=== PATIENT | female | born 1975 | race Caucasian/White ===

== ENCOUNTER → 2017-04-05 | Outpatient (REF) | payer MEDICAID, OTHER ==
[2017-04-06 12:53] LABS: AMORPHOUS SEDIMENT MODERATE (NEGATIVE); APPEARANCE, URINE TURBID (CLEAR); BACTERIA, URINE AUTO 1+ (NEGATIVE); BILIRUBIN, URINE AUTO NEGATIVE (NEGATIVE); BLOOD, URINE BLOOD NEGATIVE (NEGATIVE); CALCIUM OXALATE CRYSTALS LARGE; COLOR, URINE YELLOW (YELLOW); GLUCOSE, URINE (UA) AUTO 3+ mg/dL (NEGATIVE); KETONE, URINE AUTO TRACE mg/dL (NEGATIVE); LEUKOCYTE ESTERASE, URINE AUTO 2+ (NEGATIVE); NITRITE, URINE AUTO POSITIVE (NEGATIVE); PROTEIN, URINE AUTO 1+ mg/dL (NEGATIVE); RBC, URINE AUTO 4 /HPF (0-3); SPECIFIC GRAVITY URINE AUTO 1.028 (1.002-1.035); SQUAMOUS EPITHELIAL CELL UR AU 2 /HPF (0-6); UROBILINOGEN, URINE AUTO 0.2 mg/dL (0.0-2.0); WBC, URINE AUTO 65 /HPF (0-3)
== END ==
LOC: M LAB REF 12:06
DX: R30.0 Dysuria (principal)

== ENCOUNTER 2017-04-15 15:09 | Emergency (ER) | payer OTHER, MEDICAID ==
[2017-04-15 16:01] LABS: AMORPHOUS SEDIMENT RFX SMALL (NEGATIVE); KETONE, URINE AUTO RFX 1+ mg/dL (NEGATIVE); LEUKOCYTE ESTERASE UR AUTO RFX 3+ (NEGATIVE); NITRITE, URINE AUTO RFX NEGATIVE (NEGATIVE); RBC, URINE AUTO RFX 54 /HPF (0-3); SPECIFIC GRAVITY UR AUTO RFX 1.031 (1.002-1.035); SQUAM EPITHELIAL CELL UR AURFX 4 /HPF (0-6); WBC, URINE AUTO RFX TNTC /HPF (0-3)
== END 2017-04-15 16:31 | disposition home or self-care (01) ==
LOC: M ED 15:09
DX: B37.3 Candidiasis of vulva and vagina (principal); E11.40 Type 2 diabetes mellitus with diabetic neuropathy, unspecified; Z79.84 Long term (current) use of oral hypoglycemic drugs; Z79.899 Other long term (current) drug therapy; Z88.0 Allergy status to penicillin
CPT/HCPCS: 81001

== ENCOUNTER 2017-07-28 00:42 | Emergency (ER) | payer OTHER ==
[2017-07-28] MEDS: CYCLOBENZAPRINE 10 MG TAB PO (06:24)
[2017-07-28] MEDS: NORCO, ANEXSIA 5/325MG TABLET (HYDROcodone/ACETAMINOPHEN) PO (06:24)
== END 2017-07-28 07:51 | disposition home or self-care (01) ==
LOC: M ED 00:42
DX: M19.90 Unspecified osteoarthritis, unspecified site (principal); E11.40 Type 2 diabetes mellitus with diabetic neuropathy, unspecified; Z79.84 Long term (current) use of oral hypoglycemic drugs; Z79.899 Other long term (current) drug therapy; Z88.0 Allergy status to penicillin
CPT/HCPCS: 72110

== ENCOUNTER → 2017-09-13 | Outpatient (REF) | payer OTHER ==
[2017-09-13 21:31] LABS: APPEARANCE, URINE HAZY (CLEAR); BACTERIA, URINE AUTO 1+ (NEGATIVE); BILIRUBIN, URINE AUTO NEGATIVE (NEGATIVE); BLOOD, URINE BLOOD NEGATIVE (NEGATIVE); COLOR, URINE YELLOW (YELLOW); GLUCOSE, URINE (UA) AUTO 2+ mg/dL (NEGATIVE); KETONE, URINE AUTO TRACE mg/dL (NEGATIVE); LEUKOCYTE ESTERASE, URINE AUTO 1+ (NEGATIVE); MUCUS, URINE SMALL (NEGATIVE); NITRITE, URINE AUTO POSITIVE (NEGATIVE); PROTEIN, URINE AUTO NEGATIVE (NEGATIVE); RBC, URINE AUTO 1 /HPF (0-3); SPECIFIC GRAVITY URINE AUTO 1.027 (1.002-1.035); SQUAMOUS EPITHELIAL CELL UR AU 6 /HPF (0-6); UROBILINOGEN, URINE AUTO 0.2 mg/dL (0.0-2.0); WBC, URINE AUTO 9 /HPF (0-3)
== END ==
LOC: M LAB REF 12:20
DX: N39.0 Urinary tract infection, site not specified (principal)
CPT/HCPCS: 81001

== ENCOUNTER 2017-11-06 18:28 | Emergency (ER) | payer OTHER ==
[2017-11-06 20:29] LABS: BASO % 0.4 % (0.0-1.0); EOS # 0.1 10^3/uL (0.0-0.50); EOS % 1.4 % (0.0-3.0); HEMOGLOBIN 9.3 g/dl (12.0-15.5); IMMATURE GRANULOCYTE % 0.4 % (0-3.0); LYMPH # 1.6 10^3/uL (1.5-4.5); LYMPH % 19.7 % (24.0-44.0); MEAN CORPUSCULAR HEMOGLOBIN 24.2 pg (27.0-33.0); MEAN CORPUSCULAR VOLUME 78.1 fl (80.0-96.0); MONO # 0.6 10^3/uL (0.0-0.8); MONO % 6.8 % (0.0-5.0); NEUTROPHILS # 5.8 10^3/uL (1.8-7.7); NEUTROPHILS % 71.3 % (36.0-66.0); PLATELET COUNT, AUTOMATED 350 10^3/uL (150-450); RED BLOOD COUNT 3.84 10^6/uL (4.00-5.40); RED CELL DISTRIBUTION WIDTH 14.3 % (11.5-14.5); WHITE BLOOD COUNT 8.1 10^3/uL (4.0-10.0)
[2017-11-06 20:43] LABS: INR 1.03; MAGNESIUM LEVEL 2.1 MG/DL (1.8-2.4); PROTHROMBIN TIME 13.6 SECONDS (12.1-14.4)
[2017-11-06 20:43] LABS: PHOSPHORUS LEVEL 4.4 MG/DL (2.5-4.9)
[2017-11-06 20:48] LABS: ANION GAP 9 MEQ/L (8-16); BLOOD UREA NITROGEN 18 MG/DL (7-18); CALCIUM LEVEL 8.8 MG/DL (8.5-10.1); CARBON DIOXIDE LEVEL 26 MEQ/L (21-32); CHLORIDE LEVEL 102 MEQ/L (98-107); CPK CREATINE PHOSPHOKINASE 44 U/L (26-192); CREATININE FOR GFR 0.95 MG/DL (0.55-1.30); FREE T4 0.85 NG/DL (0.76-1.46); GLOMERULAR FILTRATION RATE > 60.0 (>58); GLUCOSE, FASTING 399 MG/DL (70-100); POTASSIUM SERUM 4.4 MEQ/L (3.5-5.1); SODIUM LEVEL 137 MEQ/L (136-145); TROPONIN I < 0.02 NG/ML (< 0.10)
[2017-11-06 20:53] LABS: CK-MB VALUE MASS < 1.0 NG/ML (<3.6); MB/CK RELATIVE INDEX 2.27 (< OR =4)
[2017-11-06] MEDS ORDERED: ISOVUE-370 76% 100ML VIAL (Q9967) As Ordered (20:58)
[2017-11-06 23:01] LABS: CK-MB VALUE MASS < 1.0 NG/ML (<3.6); CPK CREATINE PHOSPHOKINASE 47 U/L (26-192); MB/CK RELATIVE INDEX 2.12 (< OR =4); TROPONIN I < 0.02 NG/ML (< 0.10)
== END 2017-11-07 00:13 | disposition home or self-care (01) ==
LOC: M ED 11-07 00:13
DX: R55 Syncope and collapse (principal); E27.9 Disorder of adrenal gland, unspecified; E11.9 Type 2 diabetes mellitus without complications; G62.9 Polyneuropathy, unspecified; F41.9 Anxiety disorder, unspecified; F33.9 Major depressive disorder, recurrent, unspecified; F43.10 Post-traumatic stress disorder, unspecified; F42.9 Obsessive-compulsive disorder, unspecified; Z79.899 Other long term (current) drug therapy; Z79.84 Long term (current) use of oral hypoglycemic drugs; Z88.0 Allergy status to penicillin
CPT/HCPCS: Q9967

== ENCOUNTER 2017-12-27 04:58 | Emergency (ER) | payer OTHER, MEDICAID ==
[2017-12-27 05:50] LABS: BASO % 0.3 % (0.0-1.0); EOS # 0.2 10^3/uL (0.0-0.50); EOS % 2.4 % (0.0-3.0); HEMATOCRIT 37.8 % (36.0-47.0); HEMOGLOBIN 11.9 g/dl (12.0-15.5); IMMATURE GRANULOCYTE % 0.3 % (0-3.0); LYMPH # 1.5 10^3/uL (1.5-4.5); LYMPH % 21.8 % (24.0-44.0); MEAN CORPUSCULAR HEMOGLOBIN 26.5 pg (27.0-33.0); MEAN CORPUSCULAR HGB CONC 31.5 g/dl (32.0-36.5); MEAN CORPUSCULAR VOLUME 84.2 fl (80.0-96.0); MONO # 0.5 10^3/uL (0.0-0.8); NEUTROPHILS # 4.5 10^3/uL (1.8-7.7); NEUTROPHILS % 67.2 % (36.0-66.0); PLATELET COUNT, AUTOMATED 322 10^3/uL (150-450); RED BLOOD COUNT 4.49 10^6/uL (4.00-5.40); RED CELL DISTRIBUTION WIDTH 19.6 % (11.5-14.5); WHITE BLOOD COUNT 6.8 10^3/uL (4.0-10.0)
[2017-12-27 05:59] LABS: INR 0.92; PARTIAL THROMBOPLASTIN TIME 26.2 SECONDS (25.4-37.6); PROTHROMBIN TIME 12.5 SECONDS (12.1-14.4)
[2017-12-27 06:03] LABS: CONTROL LINE HCG INT CTR LINE PRESENT; HCG, SERUM QUALITATIVE NEGATIVE (NEGATIVE)
[2017-12-27] MEDS: NS 1,000 ML IV (06:11)
[2017-12-27] MEDS: KETOROLAC 30 MG/ML VIAL (J1885) IV (06:18)
== END 2017-12-27 07:24 | disposition home or self-care (01) ==
LOC: M ED 04:58
DX: N92.0 Excessive and frequent menstruation with regular cycle (principal); E11.9 Type 2 diabetes mellitus without complications; F41.9 Anxiety disorder, unspecified
CPT/HCPCS: J1885

== ENCOUNTER 2018-02-25 17:27 | Emergency (ER) | payer OTHER ==
[~2018-02-25] VITALS: Ht 172.7 cm; Wt 131.8 kg
[~2018-02-25 17:27] MED LIST: ACET30TAB PO; CYCL10TA PO; DIFL150T PO; FERR1TAB8; GABA-843 PO; GLIP5TAB8 PO; GLYB5TA; LISI10TA4 PO; METF10004 PO; MICO2CRE33 TOP; NAPR-885 PO; NITR100C2 PO; SITA50TAB
[2018-02-25 18:48] LABS: HCG, SERUM QUALITATIVE NEGATIVE (NEGATIVE)
[2018-02-25 19:42] VITALS: BP 131/80
== END 2018-02-25 19:45 | disposition home or self-care (01) ==
LOC: M ED 17:27
DX: E11.65 Type 2 diabetes mellitus with hyperglycemia (principal); N92.6 Irregular menstruation, unspecified; G62.9 Polyneuropathy, unspecified; Z79.899 Other long term (current) drug therapy; Z79.84 Long term (current) use of oral hypoglycemic drugs; Z88.0 Allergy status to penicillin

== ENCOUNTER → 2018-04-19 | Outpatient (REF) | payer OTHER, SELFPAY | LOC: M LAB REF 18:37 | PROVIDERS: ATTEND Nurse Practitioner Family | DX: N39.0 Urinary tract infection, site not specified (principal) ==

== ENCOUNTER 2018-06-11 12:10 | Emergency (ER) | payer BC, SELFPAY ==
[~2018-06-11] VITALS: Ht 172.7 cm; Wt 151.6 kg
[~2018-06-11 12:10] MED LIST changes: -FLUO10CA8 PO; -IBUP-1114 PO; -holter
[2018-06-11] MEDS ORDERED: NS 1,000 ML IV ONE (12:30)
[2018-06-11] MEDS ORDERED: FLUO10CA8 PO (12:32)
[2018-06-11 13:12] LABS: BASO % 0.4 % (0.0-1.0); EOS # 0.1 10^3/uL (0.0-0.50); EOS % 0.9 % (0.0-3.0); HEMATOCRIT 41.8 % (36.0-47.0); HEMOGLOBIN 14.4 g/dl (12.0-15.5); LYMPH # 1.7 10^3/uL (1.5-4.5); MEAN CORPUSCULAR HEMOGLOBIN 30.7 pg (27.0-33.0); MEAN CORPUSCULAR HGB CONC 34.4 g/dl (32.0-36.5); MEAN CORPUSCULAR VOLUME 89.1 fl (80.0-96.0); MONO # 0.4 10^3/uL (0.0-0.8); MONO % 5.8 % (0.0-5.0); NEUTROPHILS # 5.3 10^3/uL (1.8-7.7); NEUTROPHILS % 69.6 % (36.0-66.0); PLATELET COUNT, AUTOMATED 313 10^3/uL (150-450); RED BLOOD COUNT 4.69 10^6/uL (4.00-5.40); WHITE BLOOD COUNT 7.6 10^3/uL (4.0-10.0)
[2018-06-11 13:14] LABS: VENOUS BASE EXCESS -0.1 (-2.0-2.0); VENOUS HCO3 24.8 MEQ/L (23.0-27.0); VENOUS O2 SATURATION 94.2 % (60.0-80.0); VENOUS PARTIAL PRESSURE CO2 41.4 mmHg (38.0-50.0); VENOUS PARTIAL PRESSURE O2 72.6 mmHg (30.0-50.0); VENOUS PH 7.395 UNITS (7.330-7.430); VENOUS STANDARD HCO3 24.3 MEQ/L; VENOUS TOTAL CO2 26.1 MEQ/L (24.0-28.0)
[2018-06-11 13:22] LABS: INR 0.95; PROTHROMBIN TIME 12.8 SECONDS (12.1-14.4)
[2018-06-11 13:25] LABS: D-DIMER QUANT 339.38 ng/ml (<500)
--- NOTE | 2018-06-11 13:28 | REP ---
Chest x-ray: Two views. History: Chest pain. Comparison study: May 03, 2007. Findings: EKG monitoring electrodes are seen on the frontal view overlying the chest. The lungs are well inflated and clear. Pleural angles are sharp. Heart is not enlarged. Pulmonary vasculature is not increased. Impression: No active disease. Electronically Signed by Vu Warren MD 06/11/2018 03:09 P
[2018-06-11 13:32] LABS: ERYTHROCYTE SEDIMENTATION RATE 9 mm/hr (0-20)
[2018-06-11 13:40] LABS: HCG, SERUM QUALITATIVE NEGATIVE (NEGATIVE)
[2018-06-11 13:43] LABS: INFLUENZA A AMPLIFICATION NEGATIVE (NEGATIVE); INFLUENZA B AMPLIFICATION NEGATIVE (NEGATIVE)
[2018-06-11 13:48] LABS: ACETONE/KETONE 1.73 MG/DL (<2.81); ALBUMIN 3.3 GM/DL (3.2-5.2); ALT/SGPT 23 U/L (12-78); BILIRUBIN,DIRECT < 0.1 MG/DL (0.0-0.2); BILIRUBIN,TOTAL 0.3 MG/DL (0.2-1.0); BLOOD UREA NITROGEN 14 MG/DL (7-18); C REACTIVE PROTEIN QUANTITATIV 1.02 MG/DL (0.00-0.30); CALCIUM LEVEL 8.6 MG/DL (8.5-10.1); CARBON DIOXIDE LEVEL 25 MEQ/L (21-32); CHLORIDE LEVEL 100 MEQ/L (98-107); CPK CREATINE PHOSPHOKINASE 41 U/L (26-192); CREATININE FOR GFR 0.62 MG/DL (0.55-1.30); FREE T4 1.09 NG/DL (0.76-1.46); GLOMERULAR FILTRATION RATE > 60.0 (>58); GLUCOSE, FASTING 298 MG/DL (70-100); MAGNESIUM LEVEL 1.6 MG/DL (1.8-2.4); MB/CK RELATIVE INDEX 2.68 (< OR =4); POTASSIUM SERUM 4.2 MEQ/L (3.5-5.1); SODIUM LEVEL 134 MEQ/L (136-145); TOTAL PROTEIN 6.2 GM/DL (6.4-8.2); TROPONIN I < 0.02 NG/ML (< 0.10)
[2018-06-11] MEDS ORDERED: MAG SULF 1GM/100ML (MAG RUN) 1 GM in APPROPRIATE DILUENT 1 EA IV ONE (14:00)
[2018-06-11] MEDS ORDERED: KETOROLAC 30 MG/ML VIAL (J1885) IV ONE (14:45)
[2018-06-11] MEDS ORDERED: IBUP-1114 PO (14:48)
[2018-06-11] MEDS ORDERED: holter (14:48)
[2018-06-11 15:40] VITALS: BP 159/73
--- NOTE | 2018-06-11 22:10 | ECGEPIP ---
Stationary ECG Study [facility] - ED Test Date: 2018-06-11 Pat Name: LUCY ERWIN Department: Room: - Gender: F Dairy Husbandry Worker: sean : 1975 Requested By: Marybeth Chavez Order Number: [id number] Reading MD: Ronnie Leung Measurements Intervals [place] Rate: 96 P: 44 AR: 163 QRS: 22 QRSD: 97 T: 22 QT: 339 QTc: 429 Interpretive Statements SINUS RHYTHM POSSIBLE LEFT ATRIAL ENLARGEMENT POSSIBLE ANTERIOR MYOCARDIAL INFARCTION, PROBABLY OLD SIMILAR TO 11/06/17 Electronically Signed On 06-11-2018 22:10:15 EDT by Ronnie Leung
== END 2018-06-11 15:42 | disposition home or self-care (01) ==
LOC: M ED 12:10
DX: E83.42 Hypomagnesemia (principal); R00.2 Palpitations; E11.9 Type 2 diabetes mellitus without complications; G62.9 Polyneuropathy, unspecified; Z79.84 Long term (current) use of oral hypoglycemic drugs; Z79.899 Other long term (current) drug therapy; Z88.0 Allergy status to penicillin
CPT/HCPCS: 71046; 80048; 80076; 82010; 82550; 82553; 82803; 83605; 83735; 84439; 84443; 84703; 85025; 85379; 85610; 85652; 85730; 86140; 86850; 86900; 86901; 87040; 87631; 93005; 93041; 96365; 96375; 99285; J1885; J3475

== ENCOUNTER → 2018-06-11 | Outpatient (CLI) | payer BC ==
[~2018-06-11] MED LIST changes: +ACET-716 PO; -ACET30TAB PO; +FLUO10CA8 PO; +IBUP-1114 PO; -MICO2CRE33 TOP; +MICO2CRE42 TOP; +holter
--- NOTE | 2018-06-15 10:43 | HOLTMON ---
[facility] Test Date: 2018-06-11 Pat Name: LUCY ERWIN Department: Room: - Gender: Clinical Applications Specialist: DIANA HENDRICKS : 1975 Requested By: RAFAEL Stephen Order Number: [id number] Reading MD: Tri Montes Interpretive Statements THE PATIENT HAD A LOT OF ARTIFACT AND DID NOT BRING IN HER DIARY AFTER BEING CALLED AND LETTING HER KNOW HOW IMPORTED IT WAS. WE DO NOT KNOW WHAT SHE WAS DOING AT THE TIME OF ANY EVENTS AND THE PATIENT DID LEAVE IT ON LONGER THEN 24 HOURS.(41:45) RECORDING DURATION. SINUS MECHANISM THROUGOUT. RARE PVC RARE PAC PERIOD OF ST DEPRESSION NOTED FOR SEVERAL HOURS DURATION CLINICAL HIRAL Electronically Signed On 06-15-2018 10:42:52 EDT by Tri Montes
== END ==
LOC: M EKG 15:53
PROVIDERS: ATTEND Internal Medicine
DX: R00.2 Palpitations (principal)

== ENCOUNTER 2018-06-25 14:00 | Emergency (ER) | payer BC ==
[~2018-06-25] VITALS: Ht 172.7 cm; Wt 136.4 kg
[~2018-06-25 14:00] MED LIST changes: +FLUO10CA8 PO; +IBUP-1114 PO; +holter
[2018-06-25] MEDS ORDERED: diazePAM 10 MG TAB PO ONE (14:45)
[2018-06-25] MEDS ORDERED: predniSONE 20 MG TAB PO ONE (14:45)
[2018-06-25] MEDS ORDERED: KETOROLAC 60 MG/2 ML VIAL (J1885) IM ONE (14:45)
--- NOTE | 2018-06-25 15:33 | REP ---
Duplex extremity venous ultrasound: Right lower extremity. History: Right calf pain. Rule out DVT. Findings: The deep veins are anechoic and fully compressible from the groin to the popliteal fossa in the right lower extremity. Color flow imaging is homogeneous. Spectral Doppler interrogation demonstrates intact respiratory variation in flow and normal manual augmentation of flow. There is no evidence of deep vein thrombosis. Impression: Negative right lower extremity duplex venous ultrasound. No evidence of deep vein thrombosis. Electronically Signed by Vu Warren MD 06/25/2018 03:25 P
[2018-06-25] MEDS ORDERED: ZANA4TAB PO (15:44)
[2018-06-25] MEDS ORDERED: PRED20TA PO (15:44)
[2018-06-25] MEDS ORDERED: MOBI4TAB PO (15:44)
[2018-06-25 16:00] VITALS: BP 132/78
== END 2018-06-25 16:03 | disposition home or self-care (01) ==
LOC: M ED 14:00
DX: M54.5 Low back pain (principal); G89.29 Other chronic pain; S86.901A Unspecified injury of unspecified muscle(s) and tendon(s) at lower leg level, right leg, initial encounter; X50.3XXA Overexertion from repetitive movements, initial encounter; Y92.512 Supermarket, store or market as the place of occurrence of the external cause; Y93.01 Activity, walking, marching and hiking; Y99.0 Civilian activity done for income or pay; Z88.0 Allergy status to penicillin; E11.40 Type 2 diabetes mellitus with diabetic neuropathy, unspecified; Z87.440 Personal history of urinary (tract) infections; F41.9 Anxiety disorder, unspecified; F32.9 Major depressive disorder, single episode, unspecified; F43.10 Post-traumatic stress disorder, unspecified; F42.9 Obsessive-compulsive disorder, unspecified; R00.2 Palpitations; Z79.899 Other long term (current) drug therapy; Z79.84 Long term (current) use of oral hypoglycemic drugs
CPT/HCPCS: 93971; 96372; 99284; J1885

== ENCOUNTER 2018-09-27 21:44 | Emergency (ER) | payer BC, SELFPAY ==
[~2018-09-27] VITALS: Ht 175.3 cm; Wt 131.8 kg
[~2018-09-27 21:44] MED LIST changes: +MOBI4TAB PO; +PRED20TA PO; +ZANA4TAB PO
[2018-09-27] MEDS ORDERED: LISINOPRIL 10 MG TAB PO ONE (22:45)
[2018-09-27 22:47] VITALS: BP 171/97
[2018-09-27] MEDS ORDERED: BACT800T5 PO (23:40)
[2018-09-27] MEDS ORDERED: PYRI1TAB5 PO (23:40)
[2018-09-27] MEDS ORDERED: LISI10TA4 PO (23:41)
[2018-09-27 23:45] VITALS: BP 142/91
[2018-09-27] MEDS ORDERED: BACTRIM 160MG/800MG DS TAB PO ONE (23:45)
== END 2018-09-27 23:47 | disposition home or self-care (01) ==
LOC: M ED 21:44
DX: N30.90 Cystitis, unspecified without hematuria (principal); I10 Essential (primary) hypertension; E11.9 Type 2 diabetes mellitus without complications; F41.9 Anxiety disorder, unspecified; Z79.899 Other long term (current) drug therapy; Z79.84 Long term (current) use of oral hypoglycemic drugs; Z88.0 Allergy status to penicillin

== ENCOUNTER 2018-11-23 22:28 | Emergency (ER) | payer SELFPAY ==
[~2018-11-23] VITALS: Ht 172.7 cm; Wt 131.8 kg
[~2018-11-23 22:28] MED LIST changes: +BACT800T5 PO; +PYRI1TAB5 PO
[2018-11-23] MEDS ORDERED: CLEO300C2 PO (23:55)
[2018-11-23] MEDS ORDERED: IBUP80TA PO (23:55)
[2018-11-23] MEDS: CLINDAMYCIN 150 MG CAP PO ONE (23:57)
[2018-11-23] MEDS: KETOROLAC 60 MG/2 ML VIAL (J1885) IM ONE (23:57)
[2018-11-24 00:28] VITALS: BP 143/69
== END 2018-11-24 00:29 | disposition home or self-care (01) ==
LOC: M ED 22:28
DX: K04.7 Periapical abscess without sinus (principal); E11.9 Type 2 diabetes mellitus without complications; I10 Essential (primary) hypertension; F41.9 Anxiety disorder, unspecified; F32.9 Major depressive disorder, single episode, unspecified; F43.10 Post-traumatic stress disorder, unspecified; Z79.84 Long term (current) use of oral hypoglycemic drugs; Z79.899 Other long term (current) drug therapy
CPT/HCPCS: 96374; 99283; J1885

== ENCOUNTER 2018-12-06 18:37 | Emergency (ER) | payer SELFPAY ==
[~2018-12-06] VITALS: Ht 172.7 cm; Wt 131.8 kg
[~2018-12-06 18:37] MED LIST changes: +CLEO300C2 PO; +IBUP80TA PO
--- NOTE | 2018-12-06 20:34 | REP ---
LEFT HIP WITH AP PELVIS: 12/06/2018. Comparison: 07/28/2017. Clinical history: Slipped and fell, trauma to the hip. Findings: AP pelvis: Pelvic ring intact. A few pelvic phleboliths are noted. Sacral ala, foramina, SI joints symmetric. Iliac wings intact. Acetabuli, ischia and pubic symphysis unremarkable. Hip joint spaces are symmetric. Left hip AP and frog-leg views were provided. There is no hip joint space narrowing, fracture, avulsion or focal lesion. Femoral head, neck, trochanters and proximal shaft intact. There is no evidence of AVN. Impression: 1. Negative AP pelvis and left hip for acute fracture or other focal finding. Electronically Signed by Peterson Galvez MD 12/07/2018 07:49 A
[2018-12-06] MEDS ORDERED: ACETAMINOPHEN 325 MG TAB PO ONE (20:45)
[2018-12-06] MEDS ORDERED: KETOROLAC 60 MG/2 ML VIAL (J1885) IM ONE (21:00)
[2018-12-06] MEDS ORDERED: KETO10TAB PO (22:02)
[2018-12-06 22:04] VITALS: BP 139/92
== END 2018-12-06 22:17 | disposition home or self-care (01) ==
LOC: M ED 18:37
DX: S30.0XXA Contusion of lower back and pelvis, initial encounter (principal); W01.10XA Fall on same level from slipping, tripping and stumbling with subsequent striking against unspecified object, initial encounter; Y92.89 Other specified places as the place of occurrence of the external cause; Y93.89 Activity, other specified; Y99.0 Civilian activity done for income or pay; E11.9 Type 2 diabetes mellitus without complications; I10 Essential (primary) hypertension; G62.9 Polyneuropathy, unspecified; Z79.84 Long term (current) use of oral hypoglycemic drugs; Z79.899 Other long term (current) drug therapy; Z88.0 Allergy status to penicillin
CPT/HCPCS: 73502; 96372; 99283; J1885

== ENCOUNTER → 2019-02-10 | Outpatient (REF) | payer OTHER ==
[~2019-02-10] MED LIST changes: +FLUO10CA15 PO; -FLUO10CA8 PO; +KETO10TAB PO
[2019-02-10 18:11] LABS: ALBUMIN 3.2 GM/DL (3.2-5.2); ALT/SGPT 15 U/L (12-78); BILIRUBIN,TOTAL 0.2 MG/DL (0.2-1.0); BLOOD UREA NITROGEN 14 MG/DL (7-18); CALCIUM LEVEL 8.5 MG/DL (8.5-10.1); CARBON DIOXIDE LEVEL 24 MEQ/L (21-32); CHLORIDE LEVEL 103 MEQ/L (98-107); CHOLESTEROL LEVEL 172 MG/DL (<200); CHOLESTEROL RISK RATIO 3.583 (<5); CREATININE FOR GFR 0.56 MG/DL (0.55-1.30); FREE T4 0.93 NG/DL (0.76-1.46); GLOMERULAR FILTRATION RATE > 60.0 (>58); GLUCOSE, FASTING 290 MG/DL (70-100); HDL CHOLESTEROL 48 MG/DL (>40); LDL CHOLESTEROL 89 MG/DL (<100); NON-HDL-C 124 MG/DL; POTASSIUM SERUM 4.4 MEQ/L (3.5-5.1); SODIUM LEVEL 136 MEQ/L (136-145); TOTAL PROTEIN 6.7 GM/DL (6.4-8.2); TRIGLYCERIDES LEVEL 175 MG/DL (<150)
[2019-02-10 18:15] LABS: BASO % 0.3 % (0.0-1.0); EOS # 0.1 10^3/uL (0.0-0.5); EOS % 1.9 % (0.0-3.0); HEMATOCRIT 36.4 % (36.0-47.0); HEMOGLOBIN 11.1 g/dl (12.0-15.5); LYMPH # 1.7 10^3/uL (1.5-5.0); LYMPH % 26.7 % (24.0-44.0); MEAN CORPUSCULAR HEMOGLOBIN 25.5 pg (27.0-33.0); MEAN CORPUSCULAR HGB CONC 30.5 g/dl (32.0-36.5); MEAN CORPUSCULAR VOLUME 83.7 fl (80.0-96.0); MONO # 0.4 10^3/uL (0.0-0.8); MONO % 7.1 % (0.0-5.0); NEUTROPHILS # 3.9 10^3/uL (1.5-8.5); NEUTROPHILS % 63.7 % (36.0-66.0); PLATELET COUNT, AUTOMATED 320 10^3/uL (150-450); RED BLOOD COUNT 4.35 10^6/uL (4.00-5.40); WHITE BLOOD COUNT 6.2 10^3/uL (4.0-10.0)
[2019-02-10 18:15] LABS: APPEARANCE, URINE HAZY (CLEAR); BACTERIA, URINE AUTO NEGATIVE (NEGATIVE); BILIRUBIN, URINE AUTO NEGATIVE (NEGATIVE); BLOOD, URINE BLOOD NEGATIVE (NEGATIVE); COLOR, URINE YELLOW (YELLOW); GLUCOSE, URINE (UA) AUTO 3+ mg/dL (NEGATIVE); KETONE, URINE AUTO NEGATIVE (NEGATIVE); LEUKOCYTE ESTERASE, URINE AUTO 1+ (NEGATIVE); NITRITE, URINE AUTO NEGATIVE (NEGATIVE); PROTEIN, URINE AUTO NEGATIVE (NEGATIVE); RBC, URINE AUTO 3 /HPF (0-3); SPECIFIC GRAVITY URINE AUTO 1.029 (1.002-1.035); SQUAMOUS EPITHELIAL CELL UR AU 4 /HPF (0-6); UROBILINOGEN, URINE AUTO 0.2 mg/dL (0.0-2.0); WBC, URINE AUTO 5 /HPF (0-3)
[2019-02-10 18:20] LABS: TOTAL 25(OH) VITAMIN D 17.4 NG/ML (30.0-100.0)
[2019-02-10 18:31] LABS: HEMOGLOBIN A1c 11.3 %
[2019-02-10 18:37] LABS: CREATININE, URINE 37.5 MG/DL; MALB URINE SIEMENS 16.4 MG/L; MAU/CREAT RATIO 43.7 MCG/MG (0.0-30.0)
== END ==
LOC: M LAB REF 16:20
PROVIDERS: ATTEND Nurse Practitioner Adult Health
DX: Z13.9 Encounter for screening, unspecified (principal)

== ENCOUNTER 2019-03-28 15:37 | Emergency (ER) | payer OTHER ==
[~2019-03-28] VITALS: Ht 172.7 cm; Wt 148.9 kg
[2019-03-28 16:55] LABS: BASO % 0.2 % (0.0-1.0); EOS # 0.2 10^3/uL (0.0-0.5); EOS % 1.7 % (0.0-3.0); HEMATOCRIT 36.1 % (36.0-47.0); HEMOGLOBIN 10.9 g/dl (12.0-15.5); LYMPH # 1.9 10^3/uL (1.5-5.0); LYMPH % 20.7 % (24.0-44.0); MEAN CORPUSCULAR HEMOGLOBIN 24.6 pg (27.0-33.0); MEAN CORPUSCULAR HGB CONC 30.2 g/dl (32.0-36.5); MEAN CORPUSCULAR VOLUME 81.5 fl (80.0-96.0); MONO # 0.5 10^3/uL (0.0-0.8); MONO % 5.8 % (0.0-5.0); NEUTROPHILS # 6.7 10^3/uL (1.5-8.5); NEUTROPHILS % 71.1 % (36.0-66.0); PLATELET COUNT, AUTOMATED 437 10^3/uL (150-450); RED BLOOD COUNT 4.43 10^6/uL (4.00-5.40); WHITE BLOOD COUNT 9.4 10^3/uL (4.0-10.0)
[2019-03-28] MEDS ORDERED: GABA600T4 PO (17:04)
[2019-03-28] MEDS ORDERED: TRUL10IN (17:04)
[2019-03-28 17:17] LABS: ALBUMIN 3.5 GM/DL (3.2-5.2); ALT/SGPT 12 U/L (12-78); BILIRUBIN,DIRECT < 0.1 MG/DL (0.0-0.2); BILIRUBIN,TOTAL 0.2 MG/DL (0.2-1.0); LIPASE 202 U/L (73-393); TOTAL PROTEIN 7.2 GM/DL (6.4-8.2)
[2019-03-28] MEDS ORDERED: SIMETHICONE 80 MG CHEW TAB PO STA (17:20)
[2019-03-28] MEDS ORDERED: ONDANSETRON 4MG/2ML VIAL (J2405) IV ONE (17:30)
[2019-03-28] MEDS ORDERED: GI COCKTAIL 50ML BTL(HYOSCYAMINE/MAALOX/LIDOCAINE VISCOUS)(1:3:1) PO ONE (17:30)
[2019-03-28] MEDS ORDERED: PANTOPRAZOLE 40MG INJ (PROTONIX) (C9113) IV ONE (17:30)
[2019-03-28] MEDS ORDERED: NS 1,000 ML IV ONE (17:30)
[2019-03-28] MEDS ORDERED: ZOLO50TA PO (17:48)
[2019-03-28] MEDS ORDERED: SITA50TAB (17:48)
[2019-03-28] MEDS ORDERED: SILVER SULFADIAZINE 1% CR 50 GM JAR TOP ONE (18:00)
[2019-03-28] MEDS ORDERED: METOCLOPRAMIDE INJ 10MG/2ML VIAL (J2765) IV ONE (18:15)
--- NOTE | 2019-03-28 19:01 | REP ---
Acute abdominal series: Three views. History: Constipation. Gas. Comparison study June 11, 2018. Findings: Upright chest radiograph is normal. There is no evidence of infiltrate or free subdiaphragmatic air. Heart is not enlarged. Supine and erect views of the abdomen demonstrate a few loops of air-filled but nondilated small bowel in the central abdomen. There is a air and stool in a nondistended colon proximally and distally. No obstructive lesion is seen. Flank stripes and psoas margins are intact. No mass organomegaly seen. There are phleboliths in the pelvis. Impression: Nonspecific central abdominal small bowel loops. Otherwise negative abdominal series. Electronically Signed by Vu Warren MD 03/28/2019 08:55 P
[2019-03-28 19:14] VITALS: BP 116/67
[2019-03-28] MEDS ORDERED: NITROFURANTOIN (MACROBID) 100 MG CAP PO ONE (19:30)
[2019-03-28] MEDS ORDERED: DICYCLOMINE 10 MG CAP PO ONE (19:30)
[2019-03-28] MEDS ORDERED: OMEP40CA97 PO (19:31)
[2019-03-28] MEDS ORDERED: REGL10TA6 PO (19:31)
[2019-03-28] MEDS ORDERED: SIME180C PO (19:31)
[2019-03-28] MEDS ORDERED: DICY10CA13 PO (19:31)
[2019-03-28] MEDS ORDERED: LACT10SO29 PO (19:40)
[2019-03-28] MEDS ORDERED: SILV1CRE60 TOP (19:40)
[2019-03-29] MEDS ORDERED: MACR100C43 PO (17:12)
== END 2019-03-28 19:53 | disposition home or self-care (01) ==
LOC: M ED 15:37
DX: T21.22XA Burn of second degree of abdominal wall, initial encounter (principal); Y92.9 Unspecified place or not applicable; Y93.9 Activity, unspecified; R14.1 Gas pain; K59.00 Constipation, unspecified; R11.2 Nausea with vomiting, unspecified; R10.9 Unspecified abdominal pain; E11.40 Type 2 diabetes mellitus with diabetic neuropathy, unspecified; I10 Essential (primary) hypertension; E66.01 Morbid (severe) obesity due to excess calories; Z79.899 Other long term (current) drug therapy; Z79.84 Long term (current) use of oral hypoglycemic drugs; Z88.0 Allergy status to penicillin
CPT/HCPCS: 36415; 74021; 80047; 80076; 81001; 83690; 84702; 85025; 87088; 87186; 96361; 96374; 96375; 99284; C9113; J2405; J2765

== ENCOUNTER 2019-05-05 18:50 | Emergency (ER) | payer OTHER ==
[~2019-05-05] VITALS: Ht 172.7 cm; Wt 132.7 kg
[~2019-05-05 18:50] MED LIST changes: +DICY10CA13 PO; +GABA600T4 PO; +LACT10SO29 PO; +MACR100C43 PO; +OMEP40CA97 PO; +REGL10TA6 PO; +SILV1CRE60 TOP; +SIME180C PO; +TRUL10IN; +ZOLO50TA PO
[2019-05-05 19:44] LABS: BASO % 0.3 % (0.0-1.0); EOS # 0.2 10^3/uL (0.0-0.5); EOS % 2.1 % (0.0-3.0); HEMATOCRIT 32.3 % (36.0-47.0); LYMPH # 0.9 10^3/uL (1.5-5.0); LYMPH % 11.8 % (24.0-44.0); MEAN CORPUSCULAR HEMOGLOBIN 24.3 pg (27.0-33.0); MEAN CORPUSCULAR VOLUME 78.6 fl (80.0-96.0); MONO # 0.7 10^3/uL (0.0-0.8); MONO % 9.2 % (0.0-5.0); NEUTROPHILS # 5.9 10^3/uL (1.5-8.5); NEUTROPHILS % 76.2 % (36.0-66.0); PLATELET COUNT, AUTOMATED 363 10^3/uL (150-450); RED BLOOD COUNT 4.11 10^6/uL (4.00-5.40); WHITE BLOOD COUNT 7.7 10^3/uL (4.0-10.0)
[2019-05-05] MEDS ORDERED: ACETAMINOPHEN 325 MG TAB PO ONE (20:15)
[2019-05-05 20:24] LABS: ALBUMIN 3.5 GM/DL (3.2-5.2); ALT/SGPT 18 U/L (12-78); BILIRUBIN,DIRECT < 0.1 MG/DL (0.0-0.2); BILIRUBIN,TOTAL 0.2 MG/DL (0.2-1.0); BLOOD UREA NITROGEN 22 MG/DL (7-18); CALCIUM LEVEL 9.2 MG/DL (8.5-10.1); CARBON DIOXIDE LEVEL 26 MEQ/L (21-32); CHLORIDE LEVEL 102 MEQ/L (98-107); CK-MB VALUE MASS < 1.0 NG/ML (<3.6); CPK CREATINE PHOSPHOKINASE 49 U/L (26-192); CREATININE FOR GFR 0.79 MG/DL (0.55-1.30); GLOMERULAR FILTRATION RATE > 60.0 (>58); GLUCOSE, FASTING 270 MG/DL (70-100); MB/CK RELATIVE INDEX 2.04 (< OR =4); POTASSIUM SERUM 4.3 MEQ/L (3.5-5.1); SODIUM LEVEL 135 MEQ/L (136-145); TROPONIN I < 0.02 NG/ML (< 0.10)
[2019-05-05 20:50] LABS: HEMOGLOBIN A1c 8.9 %
[2019-05-05 21:02] LABS: INFLUENZA A AMPLIFICATION NEGATIVE (NEGATIVE); INFLUENZA B AMPLIFICATION NEGATIVE (NEGATIVE)
[2019-05-05 21:30] VITALS: BP 131/65
--- NOTE | 2019-05-05 21:42 | ECGEPIP ---
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
--- NOTE | 2019-05-06 07:41 | REP ---
Portable chest, 07:20 p.m., single AP view with the patient upright: Comparison is 06/11/2018, PA and lateral views: The lung david are clear. The cardiac size is normal. The consuelo, mediastinum, and skeletal structures are unremarkable. Impression: Negative portable chest. There is no interval change. Electronically Signed by Diaz Ferrer MD 05/06/2019 07:32 A
== END 2019-05-05 21:37 | disposition home or self-care (01) ==
LOC: M ED 18:50
DX: R53.81 Other malaise (principal); R53.83 Other fatigue; R00.0 Tachycardia, unspecified; I45.89 Other specified conduction disorders; R94.31 Abnormal electrocardiogram [ECG] [EKG]; E11.9 Type 2 diabetes mellitus without complications; I11.9 Hypertensive heart disease without heart failure; Z79.84 Long term (current) use of oral hypoglycemic drugs; Z79.899 Other long term (current) drug therapy; Z88.0 Allergy status to penicillin

== ENCOUNTER 2019-05-25 13:58 | Emergency (ER) | payer OTHER ==
[~2019-05-25] VITALS: Ht 172.7 cm; Wt 150.5 kg
[2019-05-25] MEDS ORDERED: ACET650T3 PO (14:38)
[2019-05-25] MEDS ORDERED: NORCO, ANEXSIA 5/325MG TABLET (HYDROcodone/ACETAMINOPHEN) PO ONE (15:30)
[2019-05-25 16:09] VITALS: BP 123/73
--- NOTE | 2019-05-26 08:15 | REP ---
REASON: Trauma. FINDINGS: No acute fracture or destructive osseous lesion. Electronically Signed by Merritt Coffey DO 05/26/2019 01:29 P
--- NOTE | 2019-05-26 08:15 | REP ---
REASON: Trauma. FINDINGS: The hip joint space is symmetric and relatively well maintained. There is no acute or destructive osseous lesion. Electronically Signed by Merritt Coffey DO 05/26/2019 01:29 P
--- NOTE | 2019-05-26 08:15 | REP ---
REASON: Trauma. FINDINGS: There is no acute fracture, dislocation, subluxation or joint effusion. Electronically Signed by Merritt Coffey DO 05/26/2019 01:30 P
--- NOTE | 2019-05-26 08:22 | REP ---
The scapholunate interval is widened. There is no fracture. IMPRESSION: Widened scapholunate interval possibly secondary to intercarpal ligamentous disruption. Consider MRI followup if clinically relevant. Electronically Signed by Merritt Coffey DO 05/26/2019 01:30 P
--- NOTE | 2019-05-26 08:23 | REP ---
Pain after trauma. COMPARISON: None. FINDINGS: The joint spaces are symmetric and relatively well maintained. There is no evidence of acute fracture or destructive osseous lesion. IMPRESSION: Negative hand. Please see the wrist report. Electronically Signed by Merritt Coffey DO 05/26/2019 01:30 P
== END 2019-05-25 16:22 | disposition home or self-care (01) ==
LOC: M ED 13:58
DX: S50.01XA Contusion of right elbow, initial encounter (principal); M25.531 Pain in right wrist; W01.0XXA Fall on same level from slipping, tripping and stumbling without subsequent striking against object, initial encounter; Y92.89 Other specified places as the place of occurrence of the external cause; Y93.9 Activity, unspecified; Y99.0 Civilian activity done for income or pay; E11.9 Type 2 diabetes mellitus without complications; I10 Essential (primary) hypertension; Z79.84 Long term (current) use of oral hypoglycemic drugs; Z79.899 Other long term (current) drug therapy; Z88.0 Allergy status to penicillin

== ENCOUNTER → 2019-08-06 | Outpatient (REF) | payer OTHER, MEDICAID ==
[~2019-08-06] MED LIST changes: +ACET650T3 PO; +CYCL-707 PO; -CYCL10TA PO
[2019-08-06 17:03] LABS: ALBUMIN 3.4 GM/DL (3.2-5.2); ALT/SGPT 24 U/L (12-78); BILIRUBIN,TOTAL 0.3 MG/DL (0.2-1.0); BLOOD UREA NITROGEN 15 MG/DL (7-18); CALCIUM LEVEL 8.4 MG/DL (8.5-10.1); CARBON DIOXIDE LEVEL 23 MEQ/L (21-32); CHLORIDE LEVEL 101 MEQ/L (98-107); CHOLESTEROL LEVEL 173 MG/DL (<200); CHOLESTEROL RISK RATIO 4.023 (<5); CREATININE FOR GFR 0.74 MG/DL (0.55-1.30); GLOMERULAR FILTRATION RATE > 60.0 (>58); GLUCOSE, FASTING 322 MG/DL (70-100); HDL CHOLESTEROL 43 MG/DL (>40); LDL CHOLESTEROL 58 MG/DL (<100); NON-HDL-C 130 MG/DL; POTASSIUM SERUM 4.5 MEQ/L (3.5-5.1); SODIUM LEVEL 136 MEQ/L (136-145); TOTAL PROTEIN 7.1 GM/DL (6.4-8.2); TRIGLYCERIDES LEVEL 361 MG/DL (<150)
[2019-08-06 17:05] LABS: TOTAL 25(OH) VITAMIN D 16.8 NG/ML (30.0-100.0)
[2019-08-06 17:29] LABS: HEMOGLOBIN A1c 10.1 %
[2019-08-06 17:31] LABS: BASO # 0.1 10^3/uL (0.0-0.2); BASO % 0.7 % (0.0-1.0); EOS # 0.2 10^3/uL (0.0-0.5); EOS % 2.3 % (0.0-3.0); HEMATOCRIT 34.3 % (36.0-47.0); HEMOGLOBIN 9.9 g/dl (12.0-15.5); LYMPH # 1.7 10^3/uL (1.5-5.0); LYMPH % 21.1 % (24.0-44.0); MEAN CORPUSCULAR HEMOGLOBIN 21.1 pg (27.0-33.0); MEAN CORPUSCULAR HGB CONC 28.9 g/dl (32.0-36.5); MONO # 0.5 10^3/uL (0.0-0.8); MONO % 6.5 % (0.0-5.0); NEUTROPHILS # 5.5 10^3/uL (1.5-8.5); NEUTROPHILS % 68.2 % (36.0-66.0); PLATELET COUNT, AUTOMATED 335 10^3/uL (150-450); WHITE BLOOD COUNT 8.1 10^3/uL (4.0-10.0)
== END ==
LOC: M LAB REF 16:10
PROVIDERS: ATTEND Physician Assistant
DX: Z68.43 Body mass index [BMI] 50.0-59.9, adult (principal); Z13.9 Encounter for screening, unspecified; E55.9 Vitamin D deficiency, unspecified; E66.01 Morbid (severe) obesity due to excess calories; E11.9 Type 2 diabetes mellitus without complications; F32.9 Major depressive disorder, single episode, unspecified; F41.9 Anxiety disorder, unspecified

== ENCOUNTER → 2019-09-30 | Outpatient (REF) | payer OTHER, MEDICAID ==
[~2019-09-30] MED LIST changes: +ACET-897 PO; +FERR1TAB8 PO; -FLUO10CA15 PO; +FLUO10CA16 PO; +GABA800T4 PO; +GLYB5TA PO; +HYDR12CA PO; -LACT10SO29 PO; +LACT20EL PO; +LISI-542 PO; +METO10TA2 PO; +OMEP-221 PO; +SERT-138 PO; +SITA50TAB PO; +TRUL0.5I SC; +VENTAER INH; +VITA200021 PO; +[UNRECOGNIZED DRUG - CODE] PO
== END ==
LOC: M LAB REF 09:37
PROVIDERS: ATTEND Physician Assistant
DX: Z12.39 Encounter for other screening for malignant neoplasm of breast (principal); Z01.419 Encounter for gynecological examination (general) (routine) without abnormal findings

== ENCOUNTER → 2019-11-13 | Outpatient (REF) | payer OTHER, MEDICAID ==
[2019-11-13 12:54] LABS: BASO % 0.5 % (0.0-1.0); EOS # 0.2 10^3/uL (0.0-0.5); EOS % 3.3 % (0.0-3.0); HEMATOCRIT 42.4 % (36.0-47.0); HEMOGLOBIN 13.6 g/dl (12.0-15.5); LYMPH # 1.5 10^3/uL (1.5-5.0); LYMPH % 25.1 % (24.0-44.0); MEAN CORPUSCULAR HEMOGLOBIN 28.3 pg (27.0-33.0); MEAN CORPUSCULAR HGB CONC 32.1 g/dl (32.0-36.5); MEAN CORPUSCULAR VOLUME 88.1 fl (80.0-96.0); MONO # 0.5 10^3/uL (0.0-0.8); MONO % 8.8 % (0.0-5.0); NEUTROPHILS # 3.6 10^3/uL (1.5-8.5); PLATELET COUNT, AUTOMATED 263 10^3/uL (150-450); RED BLOOD COUNT 4.81 10^6/uL (4.00-5.40); WHITE BLOOD COUNT 5.8 10^3/uL (4.0-10.0)
[2019-11-13 13:21] LABS: ALBUMIN 3.3 GM/DL (3.2-5.2); ALT/SGPT 30 U/L (12-78); BILIRUBIN,TOTAL 0.2 MG/DL (0.2-1.0); BLOOD UREA NITROGEN 17 MG/DL (7-18); CALCIUM LEVEL 8.9 MG/DL (8.5-10.1); CARBON DIOXIDE LEVEL 27 MEQ/L (21-32); CHLORIDE LEVEL 101 MEQ/L (98-107); CREATININE FOR GFR 0.65 MG/DL (0.55-1.30); FERRITIN 21 NG/ML (8-252); GLOMERULAR FILTRATION RATE > 60.0 (>58); GLUCOSE, FASTING 271 MG/DL (70-100); IRON (FE) 60 UG/DL (50-170); POTASSIUM SERUM 4.3 MEQ/L (3.5-5.1); SODIUM LEVEL 136 MEQ/L (136-145); TOTAL 25(OH) VITAMIN D 27.6 NG/ML (30.0-100.0); TOTAL PROTEIN 6.8 GM/DL (6.4-8.2)
== END ==
LOC: M LAB REF 09:25
PROVIDERS: ATTEND Physician Assistant
DX: D50.9 Iron deficiency anemia, unspecified (principal); E55.9 Vitamin D deficiency, unspecified; E11.65 Type 2 diabetes mellitus with hyperglycemia

== ENCOUNTER → 2019-11-24 | Outpatient (CLI) | payer OTHER | LOC: M LAB 14:34 | PROVIDERS: ATTEND Physician Assistant | DX: Z02.1 Encounter for pre-employment examination (principal); Z76.89 Persons encountering health services in other specified circumstances ==

== ENCOUNTER 2019-12-04 02:11 | Inpatient (IN) | payer OTHER ==
[~2019-12-04] VITALS: Ht 172.7 cm; Wt 158.7 kg
[2019-12-04] VITALS (8 sets, daily range): BP systolic 139–166; BP diastolic 81–99; O2SAT 93–97
[~2019-12-04 02:11] MED LIST changes: -ACET-897 PO; -FERR1TAB8 PO; -GABA800T4 PO; -GLYB5TA PO; -HYDR12CA PO; -LISI-542 PO; -METO10TA2 PO; -OMEP-221 PO; -SERT-138 PO; -SITA50TAB PO; -TRUL0.5I SC; -VENTAER INH; -VITA200021 PO; -[UNRECOGNIZED DRUG - CODE] PO
[2019-12-04] MEDS ORDERED: methylPREDNISolone 125MG 2ML VIAL IV ONE (02:45)
[2019-12-04] MEDS ORDERED: ACETAMINOPHEN TAB 650MG DOSE (2X325MG) PO ONE (02:45)
[2019-12-04] MEDS: ALBUTEROL 90 MCG/ACT 8GM HFA INHALER INH SCH ×3 (03:02→03:57)
[2019-12-04 03:34] LABS: BASO % 0.2 % (0.0-1.0); HEMATOCRIT 41.6 % (36.0-47.0); HEMOGLOBIN 13.7 g/dl (12.0-15.5); LYMPH # 1.4 10^3/uL (1.5-5.0); MEAN CORPUSCULAR HEMOGLOBIN 29.3 pg (27.0-33.0); MEAN CORPUSCULAR HGB CONC 32.9 g/dl (32.0-36.5); MEAN CORPUSCULAR VOLUME 89.1 fl (80.0-96.0); MONO # 0.3 10^3/uL (0.0-0.8); MONO % 6.2 % (0.0-5.0); NEUTROPHILS # 3.7 10^3/uL (1.5-8.5); NEUTROPHILS % 67.4 % (36.0-66.0); PLATELET COUNT, AUTOMATED 180 10^3/uL (150-450); RED BLOOD COUNT 4.67 10^6/uL (4.00-5.40); WHITE BLOOD COUNT 5.5 10^3/uL (4.0-10.0)
[2019-12-04 04:16] LABS: HCG, SERUM QUALITATIVE NEGATIVE (NEGATIVE)
[2019-12-04 04:25] LABS: ALBUMIN 2.8 GM/DL (3.2-5.2); ALT/SGPT 36 U/L (12-78); BILIRUBIN,DIRECT < 0.1 MG/DL (0.0-0.2); BILIRUBIN,TOTAL 0.2 MG/DL (0.2-1.0); BLOOD UREA NITROGEN 11 MG/DL (7-18); CALCIUM LEVEL 8.4 MG/DL (8.5-10.1); CARBON DIOXIDE LEVEL 26 MEQ/L (21-32); CHLORIDE LEVEL 99 MEQ/L (98-107); GLOMERULAR FILTRATION RATE > 60.0 (>58); GLUCOSE, FASTING 296 MG/DL (70-100); POTASSIUM SERUM 4.3 MEQ/L (3.5-5.1); SODIUM LEVEL 135 MEQ/L (136-145); TOTAL PROTEIN 6.7 GM/DL (6.4-8.2)
[2019-12-04 04:40] LABS: INR 0.82; PROTHROMBIN TIME 11.5 SECONDS (12.5-14.3)
[2019-12-04 04:43] LABS: D-DIMER QUANT 570.14 ng/ml (<500)
--- NOTE | 2019-12-04 05:01 | REPVR ---
PROCEDURE INFORMATION: Exam: XR Chest, 1 View Exam date and time: 12/04/2019 4:47 AM Age: 44 years old Clinical indication: Other: Cough (covid +); Additional info: Dyspnea/cough TECHNIQUE: Imaging protocol: XR of the chest Views: 1 view. COMPARISON: [place] PORTABLE CHEST X-RAY 05/05/2019 7:19 PM FINDINGS: Lungs: Lung volumes are relatively shallow. There are areas of ground-glass opacity peripherally in both lungs, most prominent in the lateral aspect of the left upper lobe which were not seen on the prior exam. Pleural space: No pleural effusions or pneumothorax identified. Heart/Mediastinum: There is mild cardiomegaly. Bones/joints: Unremarkable. IMPRESSION: Peripheral areas of ground-glass opacity in both lungs, likely infiltrates related to known COVID-19. Electronically signed by: Enma Kong On 12/04/2019 05:01:34 AM
[2019-12-04 05:02] LABS: CK-MB VALUE MASS < 1.0 NG/ML (<3.6); CPK CREATINE PHOSPHOKINASE 27 U/L (26-192); FERRITIN 96 NG/ML (8-252); LDH LACTATE DEHYDROGENASE 240 U/L (84-246); TROPONIN I < 0.02 NG/ML (< 0.10)
[2019-12-04] MEDS ORDERED: MOM 30ML SUSPENSION UDC PO PRN (06:15)
[2019-12-04] MEDS ORDERED: MAALOX 30 ML SUSP *UDC PO PRN (06:15)
[2019-12-04] MEDS ORDERED: SERT-138 PO (06:21)
[2019-12-04] MEDS ORDERED: SITA50TAB PO (06:21)
[2019-12-04] MEDS ORDERED: LISI-542 PO (06:21)
[2019-12-04] MEDS ORDERED: GABA800T4 PO (06:21)
[2019-12-04] MEDS ORDERED: GLYB5TA PO (06:21)
[2019-12-04] MEDS ORDERED: ACET-897 PO (06:21)
[2019-12-04] MEDS ORDERED: [UNRECOGNIZED DRUG - CODE] PO (06:21)
[2019-12-04] MEDS ORDERED: TRUL0.5I SC (06:21)
[2019-12-04] MEDS ORDERED: VITA200021 PO (06:21)
[2019-12-04] MEDS ORDERED: NAPR-885 PO (06:21)
[2019-12-04] MEDS ORDERED: HYDR12CA PO (06:21)
[2019-12-04] MEDS ORDERED: OMEP-221 PO (06:21)
[2019-12-04] MEDS ORDERED: METO10TA2 PO (06:21)
[2019-12-04] MEDS ORDERED: FERR1TAB8 PO (06:21)
--- NOTE | 2019-12-04 07:22 | HPEPDOC ---
[facility] Medical History & Physical Date of Admission Dec 04, 2019 Date of Service: Dec 04, 2019 Attending Physician: DAVID COATS MD History and Physical TIME OF SERVICE: 6:35 AM CHIEF COMPLAINT: Fever HISTORY OF PRESENT ILLNESS: This 44-year-old female presented with complaints of fever and a headache that is made worse by coughing, shortness of breath, muscle aches, and dizziness for about 7-10 days. She only took Tylenol one time for the fever. Her COVID 19 test was found to be positive. When she attempted to ambulate her O2 sats dropped to the high 80s. 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 REVIEW OF SYSTEMS: 12 point review of systems negative except as listed in HPI PAST MEDICAL/ SURGICAL HISTORY: NIDDM w neuropathy Hypertension Morbid Obesity SOCIAL HISTORY: - Tobacco / + alcohol occasionally FAMILY HISTORY: DM ALLERGIES: Please see below. HOME MEDICATIONS: Please see below. PHYSICAL EXAMINATION: Vital Signs Date Time Temp Pulse Resp B/P (MAP) Pulse Ox O2 Delivery O2 Flow Rate FiO2 12/04/19 02:12 102.2 128 20 143/84 (103) 93 Room Air GEN: obese / well developed/ NAD INTEGUMENT: flushed/ not diaphoretic HEENT: NCAT / mask covering lower face CVS: RRR/NMRG LUNGS: able to speak full sentences without stopping to take a breath / breath sounds are diminished ABDOMEN: Contour ( obese) MSK/EXTREMITIES: NCAT/ range of motion intact in all 4 extremities NEURO: CN 2-12 are grossly intact / speech is not dysarthric PSYCH: alert and oriented to person place and time/ able to understand and follow all commands LABORATORY DATA: 12/04/19 02:53 IMAGING: Chest x-ray "IMPRESSION: Peripheral areas of ground-glass opacity in both lungs, likely infiltrates related to known COVID-19" MICROBIOLOGY: + SARS COVID 19 / blood cx pending... ASSESSMENT: is a 44 yr old w a hx of HTn and DM who will be admitted for managment of sepsis and hypoxia 2/2 COVID 19 PNA. PLAN: 1. Sepsis 2/2 COVID 19 PNA SIRS criteria: Temp >101 / HR >90 / RR >20 Lactic acid 2 Lab abnormalites supporting diagnosis of COVID 19 include high CRP & D-dimder Reason for admission: hypoxia POC ABG showed PO2 of 59 & sepsis Plan: admit to PCU / telemetry / airborne & contact precautions / supplemental O2, continous pulse ox / trend lactic acid/ IVF /f/u blood cx / Acetaminophen PRN for fever / per- COVID order set trend CRP, d-dimer, ferritin, fibrinogen, LFTs, Mag, BNP, coags,/ check Hep panel, lipids and HIV / she is on treatment dose Lovenox per order set 2. Chronic HTN Plan: lisinopril, HTCZ 3. Chronic DM Plan: diabetic diet / f/u accuchecks & A1C / hypoglycemia protocol / sliding scale insulin / hold oral anti-glycemics / Trulicity 4 Obesity w BMI of 45.7 complicates care DVT PROPHYLAXIS: treatment dose lovenox DISPOSITION: home after more than 2 midnight's Laboratory Data Labs 24H Laboratory Tests 2 12/04/19 02:53: Immature Granulocyte % (Auto) 0.2, Neutrophils (%) (Auto) 67.4H, Lymphocytes (%) (Auto) 26.0, Monocytes (%) (Auto) 6.2H, Eosinophils (%) (Auto) 0.0, Basophils (%) (Auto) 0.2, Neutrophils # (Auto) 3.7, Lymphocytes # (Auto) 1.4L, Monocytes # (Auto) 0.3, Eosinophils # (Auto) 0.0, Basophils # (Auto) 0.0, Nucleated Red Blood Cells % (auto) 0.0, Prothrombin Time 11.5L, Prothromb Time International Ratio 0.82, Activated Partial Thromboplast Time 29.0, D-Dimer, Quantitative 570.14H, Anion Gap 10, Glomerular Filtration Rate > 60.0, Lactic Acid Level 3.6*H, Calcium Level 8.4L, Ferritin 96, Total Bilirubin 0.2, Direct Bilirubin < 0.1, Aspartate Amino Transf (AST/SGOT) 29, Alanine Aminotransferase (ALT/SGPT) 36, Alkaline Phosphatase 129H, Lactate Dehydrogenase 240, Total Creatine Kinase 27, Creatine Kinase MB < 1.0, Creatine Kinase MB Relative Index 3.70, Troponin I < 0.02, C-Reactive Protein, Quantitative 11.90H, Total Protein 6.7, Albumin 2.8L, Albumin/Globulin Ratio 0.7L, Human Chorionic Gonadotropin, Qual NEGATIVE 9/24/20 04:52: POC pH (Misc Panel) 7.393, POC Base Excess (Misc Panel) -5.0L, POC Saturated Percent O2 (Misc) 91L, POC pO2 (Misc Panel) 59.0L, POC pCO2 (Misc Panel) 33.3L, POC HCO3 (Misc Panel) 20.3L, POC Total CO2 (Misc Panel) 21.0L CBC/BMP Laboratory Tests 12/04/19 02:53 Microbiology Microbiology 12/04/19 Respiratory Virus Panel (PCR) (REY[facility]) - Final, Complete SARS-CoV-2 (COVID 19) 12/04/19 Blood Culture, Received Pending 12/04/19 Blood Culture, Received Pending Home Medications Scheduled Cholecalciferol (Vitamin D3) (Vitamin D3) 50 Mcg Capsule, 50 MCG PO DAILY Dulaglutide (Trulicity) 1.5 Mg/0.5 Ml Pen.injctr, 1.5 MG SC QWEEK SUNDAY Ferrous Sulfate (Ferrous Sulfate) 325 Mg Tablet, 325 MG PO DAILY Gabapentin (Gabapentin) 800 Mg Tablet, 800 MG PO TID Glyburide (Glyburide) 5 Mg Tablet, 5 MG PO BID Hydrochlorothiazide (Hydrochlorothiazide) 12.5 Mg Capsule, 12.5 MG PO DAILY Lisinopril (Lisinopril) 5 Mg Tablet, 10 MG PO DAILY Metformin HCl (Metformin HCl) 1,000 Mg Tab, 1,000 MG PO BID Omeprazole (Omeprazole) 40 Mg Capsule.dr, 40 MG PO DAILY Sertraline HCl (Sertraline HCl) 100 Mg Tablet, 100 MG PO DAILY Sitagliptin (Januvia) 50 Mg Tablet, 50 MG PO DAILY Scheduled PRN Acetaminophen (Tylenol Extra Strength) 500 Mg Tablet, 1,000 MG PO Q6H PRN for PAIN / FEVER Albuterol Sulfate (Ventolin Hfa) 18 Gm Hfa.aer.ad, 2 PUFF INH Q4HP PRN for SHORTNESS OF BREATH Metoclopramide HCl (Metoclopramide HCl) 10 Mg Tablet, 10 MG PO Q6H PRN for NAUSEA Naproxen (Naproxen) 500 Mg Tablet, 500 MG PO BID PRN for PAIN Allergies Coded Allergies: Penicillins (Verified Allergy, Intermediate, hives, 05/05/19) A-FIB/CHADSVASC A-FIB History Current/History of A-Fib/PAF?: No Current PO Anticoag Therapy: No DAVID COATS MD Dec 04, 2019 07:22
[2019-12-04] MEDS: ENOXAPARIN 100MG/1ML SYRINGE (J1650 PER 10MG) SC SCH ×2 (07:37→19:39)
[2019-12-04] MEDS: hydroCHLOROthiazide 12.5 MG CAPSULE PO SCH (07:38)
[2019-12-04] MEDS: ASPIRIN 81 MG ENTERIC TAB PO SCH (07:38)
[2019-12-04] MEDS: OMEPRAZOLE 20 MG CAP PO SCH (07:38)
[2019-12-04] MEDS: GABAPENTIN 400 MG CAP PO SCH ×3 (07:38→19:40)
[2019-12-04] MEDS: lisinopriL 10 MG TAB PO SCH (07:38)
[2019-12-04] MEDS: NS 1,000 ML IV SCH ×3 (07:38→22:10)
[2019-12-04] MEDS: SERTRALINE 100 MG TAB PO SCH (07:38)
[2019-12-04] MEDS: ACETAMINOPHEN TAB 650MG DOSE (2X325MG) PO PRN ×2 (10:56→19:40)
[2019-12-04] MEDS ORDERED: GLUCAGON INJ 1MG VIAL SC PRN (12:00)
[2019-12-04] MEDS ORDERED: DEXTROSE 50% 50 ML SYRINGE IV PRN (12:00)
[2019-12-04] MEDS ORDERED: GLUCOSE 4GM CHEW TABLET PO PRN (12:00)
[2019-12-04] MEDS ORDERED: HumaLOG INSULIN (NovoLOG) PER UNIT SC ONE (12:00)
[2019-12-04 12:45] LABS: HEMATOCRIT 40.7 % (36.0-47.0); HEMOGLOBIN 13.5 g/dl (12.0-15.5); LYMPH # 0.6 10^3/uL (1.5-5.0); LYMPH % 15.8 % (24.0-44.0); MEAN CORPUSCULAR HEMOGLOBIN 29.1 pg (27.0-33.0); MEAN CORPUSCULAR HGB CONC 33.2 g/dl (32.0-36.5); MEAN CORPUSCULAR VOLUME 87.7 fl (80.0-96.0); MONO # 0.1 10^3/uL (0.0-0.8); MONO % 3.3 % (0.0-5.0); NEUTROPHILS % 80.4 % (36.0-66.0); PLATELET COUNT, AUTOMATED 200 10^3/uL (150-450); RED BLOOD COUNT 4.64 10^6/uL (4.00-5.40); WHITE BLOOD COUNT 3.7 10^3/uL (4.0-10.0)
[2019-12-04 12:59] LABS: INR 0.89; PROTHROMBIN TIME 12.2 SECONDS (12.5-14.3)
[2019-12-04 13:00] LABS: PARTIAL THROMBOPLASTIN TIME 30.3 SECONDS (24.2-38.5)
[2019-12-04 13:02] LABS: D-DIMER QUANT 516.1 ng/ml (<500)
[2019-12-04 13:08] LABS: FERRITIN 109 NG/ML (8-252); LDH LACTATE DEHYDROGENASE 192 U/L (84-246); NT-PRO BNP 35 PG/ML (<125); TRIGLYCERIDES LEVEL 249 MG/DL (<150); TROPONIN I < 0.02 NG/ML (< 0.10)
[2019-12-04 13:36] LABS: HEPATITIS B SURFACE ANTIGEN NEGATIVE (NEGATIVE)
[2019-12-04 14:04] LABS: HIV 1&2 SCREEN CENTAUR NEGATIVE (NEGATIVE)
--- NOTE | 2019-12-04 15:41 | IPNPDOC ---
Text Note Date of Service The patient was seen on 12/04/19. NOTE S Patient was seen and examined this morning at bedside. She was sitting comf ortably in bed on 1 L of oxygen by nasal cannula. She was answering all questions appropriately. She was on her phone distracted but was able to answer all questions in full sentences without being short of breath. Tells me she is feeling much better from when she was in the emergency department. Her breathing feels much better as well. Denying any recent fevers. O Constitutional: Awake and alert, in no apparent distress on 1 L nasal cannula saturating at 96%. Morbidly obese. ENT: Sclera are clear. Respiratory: Lungs CTA bilaterally but showed diminished breath sounds. No respiratory distress. No use of accessory muscles. Cardiovascular: RRR S1 and S2 are normal, no murmur Gastrointestinal: Abdomen is obese, soft, non distended, non tender Musculoskeletal: No edema. Neurologic: No focal neurological deficit. Mental Status: A&O x3, normal affect Skin: Warm, dry A/P This 44-year-old female presented with complaints of fever and a headache that is made worse by coughing, shortness of breath, muscle aches, and dizziness for about 7-10 days. She only took Tylenol one time for the fever. Her COVID 19 test was found to be positive. When she attempted to ambulate her O2 sats dropped to the high 80s. 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 Significantly improved without shortness of breath upon admission. # COVID 19: COVID labs. Inflammatory markers. D-dimer elevated. Oxygen by nasal cannula as needed. Fairly comfortable. Therapeutic Lovenox. If continues to be stable can be downgraded from PCU to telemetry MedSurg. # Elevated lactate: Florentino. IV fluids NS at 150. Likely dehydration. # HTN: Continue lisinopril and hydrochlorothiazide. Monitor and titrate # NIDDM: Insulin sliding scale. Hypoglycemic precautions. A1c. Able to obtain home trulicity, can resume at home. # Obesity: BMI 45.7. Follow-up with PCP and explore if she is a candidate for bariatric surgery. Needs aggressive lifestyle modifications. Her obesity can be a significant risk factor which complicate her COVID infection. # DVT prophylaxis: Therapeutic Lovenox A Yousef Hospitalist VS,Alee, I+O VS, Fishbone, I+O Laboratory Tests 12/04/19 02:53 12/04/19 12:27 Vital Signs Date Time Temp Pulse Resp B/P (MAP) Pulse Ox O2 Delivery O2 Flow Rate FiO2 12/04/19 13:00 94 Nasal Cannula 1.0 12/04/19 12:00 98.6 107 24 139/91 (107) MIRELLA BURNETT MD Dec 04, 2019 15:41
[2019-12-04] MEDS: HumaLOG INSULIN (NovoLOG) PER UNIT SC SCH (17:00)
--- NOTE | 2019-12-04 20:53 | ECGEPIP ---
[facility] - ED Test Date: 2019-12-04 Pat Name: LUCY ERWIN Department: Room: 0103 Gender: Female Applications Sales Representative: remy : 1975 Requested By: Ronnie Macedo Order Number: [id number] Reading MD: Marybeth Chavez Measurements Intervals [place] Rate: 121 P: 45 [place]: 154 QRS: 34 QRSD: 93 T: 14 QT: 300 QTc: 426 Interpretive Statements SINUS TACHYCARDIA POSSIBLE ANTERIOR MYOCARDIAL INFARCTION, OF INDETERMINATE AGE PRWP INCREASED RATE 05/05/19 Electronically Signed on 12-04-2019 20:53:32 EDT by Marybeth Chavez
[2019-12-04] MEDS ORDERED: HumaLOG INSULIN (NovoLOG) PER UNIT SC SCH (21:00)
[2019-12-04] MEDS: NAPROXEN 250 MG TAB PO PRN (22:10)
[2019-12-05] VITALS (7 sets, daily range): BP systolic 125–138; BP diastolic 63–86; O2SAT 93–95
[2019-12-05] MEDS: NS 1,000 ML IV SCH ×2 (04:09→10:42)
[2019-12-05] MEDS: ACETAMINOPHEN TAB 650MG DOSE (2X325MG) PO PRN ×2 (06:33→16:56)
[2019-12-05] MEDS: ENOXAPARIN 100MG/1ML SYRINGE (J1650 PER 10MG) SC SCH (08:03)
[2019-12-05] MEDS: HumaLOG INSULIN (NovoLOG) PER UNIT SC SCH ×3 (08:03→16:56)
[2019-12-05] MEDS: GABAPENTIN 400 MG CAP PO SCH ×2 (08:04→16:56)
[2019-12-05] MEDS: ASPIRIN 81 MG ENTERIC TAB PO SCH (08:04)
[2019-12-05] MEDS: lisinopriL 10 MG TAB PO SCH (08:04)
[2019-12-05] MEDS: OMEPRAZOLE 20 MG CAP PO SCH (08:04)
[2019-12-05] MEDS: SERTRALINE 100 MG TAB PO SCH (08:04)
[2019-12-05] MEDS: hydroCHLOROthiazide 12.5 MG CAPSULE PO SCH (08:04)
[2019-12-05 08:54] LABS: BASO % 0.2 % (0.0-1.0); EOS % 0.2 % (0.0-3.0); HEMATOCRIT 38.1 % (36.0-47.0); HEMOGLOBIN 12.4 g/dl (12.0-15.5); LYMPH # 0.8 10^3/uL (1.5-5.0); LYMPH % 18.4 % (24.0-44.0); MEAN CORPUSCULAR HGB CONC 32.5 g/dl (32.0-36.5); MEAN CORPUSCULAR VOLUME 89.2 fl (80.0-96.0); MONO # 0.3 10^3/uL (0.0-0.8); NEUTROPHILS # 3.1 10^3/uL (1.5-8.5); PLATELET COUNT, AUTOMATED 187 10^3/uL (150-450); RED BLOOD COUNT 4.27 10^6/uL (4.00-5.40); WHITE BLOOD COUNT 4.1 10^3/uL (4.0-10.0)
[2019-12-05 08:55] LABS: INR 0.88; PROTHROMBIN TIME 12.2 SECONDS (12.5-14.3)
[2019-12-05 08:56] LABS: PARTIAL THROMBOPLASTIN TIME 30.3 SECONDS (24.2-38.5)
[2019-12-05 08:59] LABS: D-DIMER QUANT 340.45 ng/ml (<500)
[2019-12-05 09:11] LABS: ALBUMIN 2.6 GM/DL (3.2-5.2); ALT/SGPT 28 U/L (12-78); BILIRUBIN,DIRECT < 0.1 MG/DL (0.0-0.2); BILIRUBIN,TOTAL 0.3 MG/DL (0.2-1.0); BLOOD UREA NITROGEN 15 MG/DL (7-18); CALCIUM LEVEL 8.2 MG/DL (8.5-10.1); CARBON DIOXIDE LEVEL 25 MEQ/L (21-32); CHLORIDE LEVEL 104 MEQ/L (98-107); CREATININE FOR GFR 0.58 MG/DL (0.55-1.30); FERRITIN 103 NG/ML (8-252); GLOMERULAR FILTRATION RATE > 60.0 (>58); GLUCOSE, FASTING 284 MG/DL (70-100); MAGNESIUM LEVEL 1.6 MG/DL (1.8-2.4); NT-PRO BNP 21 PG/ML (<125); POTASSIUM SERUM 3.8 MEQ/L (3.5-5.1); SODIUM LEVEL 136 MEQ/L (136-145); TOTAL PROTEIN 6.8 GM/DL (6.4-8.2)
[2019-12-05] MEDS: NAPROXEN 250 MG TAB PO PRN (13:01)
[2019-12-05] MEDS ORDERED: ALBUTEROL 90 MCG/ACT 8GM HFA INHALER INH PRN (13:30)
--- NOTE | 2019-12-05 14:10 | IPNPDOC ---
Text Note Date of Service The patient was seen on 12/05/19. NOTE S Patient was seen and examined this morning at bedside. She was sitting comf ortably in bed on 1 L of oxygen by nasal cannula. She was answering all questions appropriately. She was on her phone distracted but was able to answer all questions in full sentences without being short of breath. Tells me she is feeling much better from when she was in the emergency department. Her breathing feels much better as well. Denying any recent fevers. O Constitutional: Awake and alert, in no apparent distress on 1 L nasal cannula saturating at 96%. Morbidly obese. ENT: Sclera are clear. Respiratory: Lungs CTA bilaterally but showed diminished breath sounds. No respiratory distress. No use of accessory muscles. Cardiovascular: RRR S1 and S2 are normal, no murmur Gastrointestinal: Abdomen is obese, soft, non distended, non tender Musculoskeletal: No edema. Neurologic: No focal neurological deficit. Mental Status: A&O x3, normal affect Skin: Warm, dry A/P This 44-year-old female presented with complaints of fever and a headache that is made worse by coughing, shortness of breath, muscle aches, and dizziness for about 7-10 days. She only took Tylenol one time for the fever. Her COVID 19 test was found to be positive. When she attempted to ambulate her O2 sats dropped to the high 80s. 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 Significantly improved without shortness of breath upon admission. # COVID 19: COVID labs. Inflammatory markers and d-dimer downtrending. Her oxygen requirement by nasal cannula has decreased. She currently requires half a liter of oxygen to 1 L as needed especially on exertion as her saturation drops to around 88% otherwise he seems to be saturating around 95% or more. It is in my experience dealing with Covid patients that many of them especially the obese patient's can have a prolonged duration of oxygen requirement during the disease course. Other than the oxygen requirement her lung sounds better today and she's feeling well. In my opinion she is able to go home today or tomorrow after I reevaluate her in the evening and I have arranged for her to be able to go home with home oxygen. I discussed with her the need to self isolate at home per CDC recommendations. Therapeutic Lovenox while admitted. Can be switched to MedSurg status. # Elevated lactate: Florentino. IV fluids NS at 150. Likely dehydration. # HTN: Continue lisinopril and hydrochlorothiazide. Monitor and titrate # NIDDM: Insulin sliding scale. Hypoglycemic precautions. A1c. Able to obtain home trulicity, can resume at home. # Obesity: BMI 45.7. Follow-up with PCP and explore if she is a candidate for bariatric surgery. Needs aggressive lifestyle modifications. Her obesity can be a significant risk factor which complicate her COVID infection. # DVT prophylaxis: Therapeutic Lovenox A Jeff Hospitalist VS,Fishbone, I+O VS, Fishbone, I+O Laboratory Tests 12/04/19 12:27 Vital Signs Date Time Temp Pulse Resp B/P (MAP) Pulse Ox O2 Delivery O2 Flow Rate FiO2 12/05/19 04:00 0.5 12/05/19 04:00 97.0 97 18 125/72 (89) 93 Nasal Cannula I&O- Last 24 Hours up to 6 AM 12/05/19 05:59 Intake Total 4360 ml Output Total 1675 ml Balance 2685 ml MIRELLA BURNETT MD Dec 05, 2019 07:37
[2019-12-05 14:31] LABS: LDH LACTATE DEHYDROGENASE 189 U/L (84-246)
[2019-12-05] MEDS ORDERED: ACET-897 PO (17:31)
[2019-12-05] MEDS ORDERED: VENTAER INH (17:31)
--- NOTE | 2019-12-05 17:37 | DS.PDOC ---
Discharge Summary General Date of Admission Dec 04, 2019 at 06:18 Date of Discharge 12/05/2019 Discharge Summary PROCEDURES PERFORMED DURING STAY: [None]. ADMITTING DIAGNOSES: 1. Shortness of breath DISCHARGE DIAGNOSES: 1. Hypoxia due to Covid 19 infection COMPLICATIONS/CHIEF COMPLAINT: Covid-19, Hypoxemia. HISTORY OF PRESENT ILLNESS: From admitting attendings H&P: This 44-year-old female presented with complaints of fever and a headache that is made worse by coughing, shortness of breath, muscle aches, and dizziness for about 7-10 days. She only took Tylenol one time for the fever. Her COVID 19 test was found to be positive. When she attempted to ambulate her O2 sats dropped to the high 80s. 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 HOSPITAL COURSE: This 44-year-old female presented with complaints of fever and a headache that is made worse by coughing, shortness of breath, muscle aches, and dizziness for about 7-10 days. She only took Tylenol one time for the fever. Her COVID 19 test was found to be positive. When she attempted to ambulate her O2 sats dropped to the high 80s. 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 Significantly improved without shortness of breath upon admission. # COVID 19: COVID labs. Inflammatory markers and d-dimer downtrending. Her oxygen requirement by nasal cannula has decreased. She currently requires half a liter of oxygen to 1 L as needed especially on exertion as her saturation drops to around 88% when off of oxygen otherwise he seems to be saturating around 95% or more. It is in my experience dealing with Covid patients that many of them especially the obese patient's can have a prolonged duration of oxygen requirement during the disease course. Other than the oxygen requirement her lung sounds better today and she's feeling well. I have arranged for her to be able to go home with home oxygen. I discussed with her the need to self isolate at home per CDC recommendations. Therapeutic Lovenox while admitted. # Elevated lactate: Mild elevation 2.8 IV fluids NS at 150. Likely dehydration a nd acute Covid infection. # HTN: Continue lisinopril and hydrochlorothiazide. Monitor and titrate # NIDDM: Insulin sliding scale. Hypoglycemic precautions. A1c. Unable to obtain home trulicity, can resume at home as well as other antihyperglycemic's. # Obesity: BMI 45.7. Follow-up with PCP and explore if she is a candidate for bariatric surgery. Needs aggressive lifestyle modifications. Her obesity can be a significant risk factor which complicate her COVID infection. DISCHARGE MEDICATIONS: Please see below. ALLERGIES: Please see below. PHYSICAL EXAMINATION ON DISCHARGE: VITAL SIGNS: Please see below. Constitutional: Awake and alert, in no apparent distress on 0.5 L nasal cannula saturating at 94%. Morbidly obese. ENT: Sclera are clear. Respiratory: Lungs CTA bilaterally but showed diminished breath sounds. No respiratory distress. No use of accessory muscles. Cardiovascular: RRR S1 and S2 are normal, no murmur Gastrointestinal: Abdomen is obese, soft, non distended, non tender Musculoskeletal: No edema. Neurologic: No focal neurological deficit. Mental Status: A&O x3, normal affect Skin: Warm, dry LABORATORY DATA: Please see below. PROGNOSIS: Good ACTIVITY: [As tolerated]. DIET: Diabetic diet DISPOSITION: . Home DISCHARGE INSTRUCTIONS: Please follow up with your primary care physician within 1 week from discharge. If you do not have one, please follow up with us to schedule an appointment. Please keep all of your follow up appointments. Please call central to book your appointments with hospital specialists. Please take all your medications as prescribed. Please call/come to Clinic or go to the Emergency Department if - Temp >101, intractable Nausea/Vomiting, Diarrhea, Mouth sores, Headaches, Altered mental status, Seizures, sudden onset of swelling, bleeding, shortness of breath or chest pain. Self isolate at home as discussed according to CDC guidelines. Return to hospital if you experience increased shortness of breath. ITEMS TO FOLLOWUP ON ON OUTPATIENT: 1. Follow-up with primary care doctor after self isolating home. DISCHARGE CONDITION: [Stable]. TIME SPENT ON DISCHARGE: Greater than [36] minutes. Vital Signs/I&Os Vital Signs Date Time Temp Pulse Resp B/P (MAP) Pulse Ox O2 Delivery O2 Flow Rate FiO2 12/05/19 16:00 0.5 12/05/19 16:00 97.0 99 19 136/63 (87) 94 Nasal Cannula I&O- Last 24 Hours up to 6 AM 12/05/19 06:00 Intake Total 4360 ml Output Total 1675 ml Balance 2685 ml Laboratory Data Labs 24H Laboratory Tests 2 12/05/19 07:46: Bedside Glucose (Misc Panel) 240H 12/05/19 08:14: Immature Granulocyte % (Auto) 0.2, Neutrophils (%) (Auto) 74.0H, Lymphocytes (%) (Auto) 18.4L, Monocytes (%) (Auto) 7.0H, Eosinophils (%) (Auto) 0.2, Basophils (%) (Auto) 0.2, Neutrophils # (Auto) 3.1, Lymphocytes # (Auto) 0.8L, Monocytes # (Auto) 0.3, Eosinophils # (Auto) 0.0, Basophils # (Auto) 0.0, Nucleated Red Bloo d Cells % (auto) 0.0, Prothrombin Time 12.2, Prothromb Time International Ratio 0.88, Activated Partial Thromboplast Time 30.3, Fibrinogen 585H, D-Dimer, Quantitative 340.45, Anion Gap 7L, Glomerular Filtration Rate > 60.0, Calcium Level 8.2L, Magnesium Level 1.6L, Ferritin 103, Total Bilirubin 0.3, Direct Bilirubin < 0.1, Aspartate Amino Transf (AST/SGOT) 17, Alanine Aminotransferase (ALT/SGPT) 28, Alkaline Phosphatase 111, Lactate Dehydrogenase 189, C-Reactive Protein, Quantitative 11.30H, [id number]-Vsa-[id number]-Type Natriuretic Peptide 21, Total Protein 6.8, Albumin 2.6L, Albumin/Globulin Ratio 0.6L, Procalcitonin 0.09 12/05/19 11:21: Bedside Glucose (Misc Panel) 283H 12/05/19 16:31: Bedside Glucose (Misc Panel) 256H CBC/BMP Laboratory Tests 12/05/19 08:14 FSBS Laboratory Tests Test 12/05/19 07:46 12/05/19 11:21 12/05/19 16:31 Range/Units Bedside Glucose (Misc Panel) 240 283 256 70-105 MG/DL Microbiology Microbiology 12/04/19 Respiratory Virus Panel (PCR) ([facility]) - Final, Complete SARS-CoV-2 (COVID 19) 12/04/19 Blood Culture - Preliminary, Resulted No growth after 24 hours . All specim... 12/04/19 Blood Culture - Preliminary, Resulted No growth after 24 hours . All specim... Discharge Medications Scheduled Cholecalciferol (Vitamin D3) (Vitamin D3) 50 Mcg Capsule, 50 MCG PO DAILY, (Reported) Dulaglutide (Trulicity) 1.5 Mg/0.5 Ml Pen.injctr, 1.5 MG SC QWEEK, (Reported) SUNDAY Ferrous Sulfate (Ferrous Sulfate) 325 Mg Tablet, 325 MG PO DAILY, (Reported) Gabapentin (Gabapentin) 800 Mg Tablet, 800 MG PO TID, (Reported) Glyburide (Glyburide) 5 Mg Tablet, 5 MG PO BID, (Reported) Hydrochlorothiazide (Hydrochlorothiazide) 12.5 Mg Capsule, 12.5 MG PO DAILY, (Reported) Lisinopril (Lisinopril) 5 Mg Tablet, 10 MG PO DAILY, (Reported) Metformin HCl (Metformin HCl) 1,000 Mg Tab, 1,000 MG PO BID, (Reported) Omeprazole (Omeprazole) 40 Mg Capsule.dr, 40 MG PO DAILY, (Reported) Sertraline HCl (Sertraline HCl) 100 Mg Tablet, 100 MG PO DAILY, (Reported) Sitagliptin (Januvia) 50 Mg Tablet, 50 MG PO DAILY, (Reported) Scheduled PRN Acetaminophen (Tylenol Extra Strength) 500 Mg Tablet, 1,000 MG PO Q6H PRN for PAIN / FEVER Albuterol Sulfate (Ventolin Hfa) 18 Gm Hfa.aer.ad, 2 PUFF INH Q4HP PRN for SHORTNESS OF BREATH D-Methorphan/PE/Acetaminophen ([place] Plus Sinus-Cough) 1 Each Capsule, 2 CAP PO Q4H PRN for COLD SYMPTOMS, (Reported) Metoclopramide HCl (Metoclopramide HCl) 10 Mg Tablet, 10 MG PO Q6H PRN for NAUSEA, (Reported) Naproxen (Naproxen) 500 Mg Tablet, 500 MG PO BID PRN for PAIN, (Reported) Allergies Coded Allergies: Penicillins (Verified Allergy, Intermediate, hives, 05/05/19) MIRELLA BURNETT MD Dec 05, 2019 17:37
[2019-12-07] MEDS ORDERED: DULAGLUTIDE 1.5 MG/0.5 ML SC SCH (09:00)
== END 2019-12-05 19:10 | disposition home health service (06) | DRG 137 ==
LOC: M ED 02:11 → EEVIPCON 06:18 → M ED INP 06:18 → ENRESERV 08:58 → M 4MAIN 10:00
PROVIDERS: ADMIT Internal Medicine; ATTEND Family Medicine
DX: U07.1 COVID-19 (principal); E11.40 Type 2 diabetes mellitus with diabetic neuropathy, unspecified; E66.01 Morbid (severe) obesity due to excess calories; Z68.42 Body mass index [BMI] 45.0-49.9, adult; I10 Essential (primary) hypertension; Z79.899 Other long term (current) drug therapy; Z88.0 Allergy status to penicillin

== ENCOUNTER → 2019-12-17 | Outpatient (REF) | payer OTHER ==
[~2019-12-17] MED LIST changes: +ACET-897 PO; +FERR1TAB8 PO; +GABA800T4 PO; +GLYB5TA PO; +HYDR12CA PO; +LISI-542 PO; +METO10TA2 PO; +OMEP-221 PO; +SERT-138 PO; +SITA50TAB PO; +TRUL0.5I SC; +VENTAER INH; +VITA200021 PO; +[UNRECOGNIZED DRUG - CODE] PO
== END ==
LOC: M LAB REF 16:46
PROVIDERS: ATTEND Physician Assistant
DX: R35.0 Frequency of micturition (principal)

== ENCOUNTER → 2020-02-20 | Outpatient (REF) | payer OTHER ==
[2020-02-20 16:28] LABS: HEMATOCRIT 41.3 % (36.0-47.0); HEMOGLOBIN 13.7 g/dl (12.0-15.5); MEAN CORPUSCULAR HEMOGLOBIN 30.6 pg (27.0-33.0); MEAN CORPUSCULAR HGB CONC 33.2 g/dl (32.0-36.5); MEAN CORPUSCULAR VOLUME 92.4 fl (80.0-96.0); PLATELET COUNT, AUTOMATED 280 10^3/uL (150-450); RED BLOOD COUNT 4.47 10^6/uL (4.00-5.40); WHITE BLOOD COUNT 5.7 10^3/uL (4.0-10.0)
[2020-02-20 16:32] LABS: ALBUMIN 3.3 GM/DL (3.2-5.2); ALT/SGPT 26 U/L (12-78); BILIRUBIN,TOTAL 0.3 MG/DL (0.2-1.0); BLOOD UREA NITROGEN 14 MG/DL (7-18); CALCIUM LEVEL 9.4 MG/DL (8.5-10.1); CARBON DIOXIDE LEVEL 27 MEQ/L (21-32); CHLORIDE LEVEL 102 MEQ/L (98-107); CHOLESTEROL LEVEL 162 MG/DL (<200); CHOLESTEROL RISK RATIO 4.378 (<5); CREATININE FOR GFR 0.65 MG/DL (0.55-1.30); FERRITIN 23 NG/ML (8-252); GLOMERULAR FILTRATION RATE > 60.0 (>58); GLUCOSE, FASTING 236 MG/DL (70-100); HDL CHOLESTEROL 37 MG/DL (>40); IRON (FE) 80 UG/DL (50-170); LDL CHOLESTEROL 65 MG/DL (<100); NON-HDL-C 125 MG/DL; PERCENT SATURATION 27.7 % (13.2-45.0); POTASSIUM SERUM 4.4 MEQ/L (3.5-5.1); SODIUM LEVEL 135 MEQ/L (136-145); TOTAL IRON BINDING CAPACITY 289 UG/DL (250-450); TOTAL PROTEIN 6.5 GM/DL (6.4-8.2); TRIGLYCERIDES LEVEL 298 MG/DL (<150)
[2020-02-20 16:37] LABS: HEMOGLOBIN A1c 10.5 %
[2020-02-20 16:54] LABS: MAU/CREAT RATIO 94.4 MCG/MG (0.0-30.0)
== END ==
LOC: M LAB REF 15:52
PROVIDERS: ATTEND Physician Assistant
DX: E11.65 Type 2 diabetes mellitus with hyperglycemia (principal); D64.9 Anemia, unspecified; E55.9 Vitamin D deficiency, unspecified

== ENCOUNTER → 2020-03-19 | Outpatient (REF) | payer OTHER ==
[2020-03-19 16:38] LABS: BASO % 0.5 % (0.0-1.0); EOS # 0.1 10^3/uL (0.0-0.5); HEMATOCRIT 41.5 % (36.0-47.0); HEMOGLOBIN 13.3 g/dl (12.0-15.5); LYMPH # 1.5 10^3/uL (1.5-5.0); LYMPH % 22.7 % (24.0-44.0); MEAN CORPUSCULAR HEMOGLOBIN 29.2 pg (27.0-33.0); MEAN CORPUSCULAR VOLUME 91.2 fl (80.0-96.0); MONO # 0.3 10^3/uL (0.0-0.8); MONO % 5.2 % (0.0-5.0); NEUTROPHILS # 4.5 10^3/uL (1.5-8.5); NEUTROPHILS % 69.3 % (36.0-66.0); PLATELET COUNT, AUTOMATED 276 10^3/uL (150-450); RED BLOOD COUNT 4.55 10^6/uL (4.00-5.40); WHITE BLOOD COUNT 6.5 10^3/uL (4.0-10.0)
[2020-03-19 17:09] LABS: ALBUMIN 3.6 GM/DL (3.2-5.2); ALT/SGPT 35 U/L (12-78); AMYLASE 14 U/L (25-115); BILIRUBIN,TOTAL 0.3 MG/DL (0.2-1.0); BLOOD UREA NITROGEN 11 MG/DL (7-18); CALCIUM LEVEL 8.9 MG/DL (8.5-10.1); CARBON DIOXIDE LEVEL 26 MEQ/L (21-32); CHLORIDE LEVEL 98 MEQ/L (98-107); CREATININE FOR GFR 0.74 MG/DL (0.55-1.30); GLOMERULAR FILTRATION RATE > 60.0 (>58); GLUCOSE, FASTING 328 MG/DL (70-100); LIPASE 189 U/L (73-393); POTASSIUM SERUM 4.4 MEQ/L (3.5-5.1); SODIUM LEVEL 134 MEQ/L (136-145); TOTAL PROTEIN 6.4 GM/DL (6.4-8.2)
== END ==
LOC: M LAB REF 15:59
DX: R19.7 Diarrhea, unspecified (principal)

== ENCOUNTER → 2020-06-15 | Outpatient (REF) | payer OTHER ==
[~2020-06-15] MED LIST changes: +GABA-282 PO; -GABA-843 PO; -GLYB5TA; -GLYB5TA PO; +GLYB5TAB6; +GLYB5TAB6 PO; -LISI-542 PO; +LISI-898 PO; +LISI10TA22 PO; -LISI10TA4 PO; -SIME180C PO; +SIME180C25 PO
[2020-06-15 17:32] LABS: ALBUMIN 3.6 GM/DL (3.2-5.2); ALT/SGPT 37 U/L (12-78); BILIRUBIN,TOTAL 0.2 MG/DL (0.2-1.0); BLOOD UREA NITROGEN 13 MG/DL (7-18); CALCIUM LEVEL 9.2 MG/DL (8.5-10.1); CARBON DIOXIDE LEVEL 28 MEQ/L (21-32); CHLORIDE LEVEL 98 MEQ/L (98-107); CREATININE FOR GFR 0.56 MG/DL (0.55-1.30); FERRITIN 18 NG/ML (8-252); FREE T4 1.04 NG/DL (0.76-1.46); GLOMERULAR FILTRATION RATE > 60.0 (>58); GLUCOSE, FASTING 283 MG/DL (70-100); IRON (FE) 89 UG/DL (50-170); PERCENT SATURATION 26.5 % (13.2-45.0); POTASSIUM SERUM 4.4 MEQ/L (3.5-5.1); SODIUM LEVEL 133 MEQ/L (136-145); TOTAL IRON BINDING CAPACITY 336 UG/DL (250-450); TOTAL PROTEIN 6.9 GM/DL (6.4-8.2)
[2020-06-15 17:35] LABS: TOTAL 25(OH) VITAMIN D 21.7 NG/ML (30.0-100.0)
[2020-06-15 17:37] LABS: BASO # 0.1 10^3/uL (0.0-0.2); BASO % 0.8 % (0.0-1.0); EOS # 0.2 10^3/uL (0.0-0.5); EOS % 2.3 % (0.0-3.0); HEMATOCRIT 41.8 % (36.0-47.0); MEAN CORPUSCULAR HEMOGLOBIN 30.2 pg (27.0-33.0); MEAN CORPUSCULAR HGB CONC 33.5 g/dl (32.0-36.5); MEAN CORPUSCULAR VOLUME 90.1 fl (80.0-96.0); MONO # 0.5 10^3/uL (0.0-0.8); MONO % 6.7 % (2.0-8.0); NEUTROPHILS # 4.5 10^3/uL (1.5-8.5); NEUTROPHILS % 62.2 % (36.0-66.0); PLATELET COUNT, AUTOMATED 307 10^3/uL (150-450); RED BLOOD COUNT 4.64 10^6/uL (4.00-5.40); WHITE BLOOD COUNT 7.3 10^3/uL (4.0-10.0)
[2020-06-15 17:59] LABS: HEMOGLOBIN A1c 10.6 %
== END ==
LOC: M LAB REF 16:04
PROVIDERS: ATTEND Physician Assistant
DX: E55.9 Vitamin D deficiency, unspecified (principal); D50.9 Iron deficiency anemia, unspecified; E66.01 Morbid (severe) obesity due to excess calories

== ENCOUNTER → 2020-06-21 | Outpatient (REF) | payer OTHER | LOC: M LAB REF 15:46 | PROVIDERS: ATTEND Physician Assistant | DX: R30.9 Painful micturition, unspecified (principal) ==

== ENCOUNTER → 2020-06-23 | Outpatient (REF) | payer OTHER ==
[2020-06-23 19:09] LABS: CHLAMYDIA DNA AMPLIFICATION NEGATIVE (NEGATIVE); GC DNA AMPLIFICATION NEGATIVE (NEGATIVE)
== END ==
LOC: M LAB REF 15:58
PROVIDERS: ATTEND Physician Assistant
DX: R30.9 Painful micturition, unspecified (principal)

== ENCOUNTER 2021-01-09 19:08 | Emergency (ER) | payer OTHER ==
[~2021-01-09] VITALS: Ht 172.7 cm; Wt 140.9 kg
[~2021-01-09 19:08] MED LIST changes: +OMEP40CA4 PO; -OMEP40CA97 PO
--- OUTSIDE RECORDS SUMMARY | 2021-01-09 19:16 | CCD ---
Author Organization Unknown Address [address] [place] [address] Phone [phone] Care Team Providers Care Customer Expert Name Role Phone Serge Weller Unavailable Unavailable Allergies Code Code System Name Reaction Severity Status Onset Penicillin Active 8 2063178 RxNorm Trulicity Diarrhea Severe Active 07/05/2020 1530724 RxNorm Invokana Other Moderate to Severe Active Medications Name Status Start Date Stop Date acetaminophen 500 mg tablet TAKE 2 TABS BY MOUTH EVERY 6 HOURS NEEDED FOR PAIN & FEVER. Completed 06/21/2020 albuterol sulfate 2.5 mg/3 mL (0.083 %) solution for nebulization VVN Q 4 TO 6 H PRF WHZ OR SOB Completed albuterol sulfate HFA 90 mcg/actuation a erosol inhaler INHALE 2 PUFFS BY MOUTH EVERY 4 HOURS NEEDED FOR WHEEZING OR SHORTNESS OF BREATH Completed 05/14/2020 Basaglar KwikPen U-100 Insulin 100 unit/mL (3 mL) subcutaneous A ctive Not available BD Ultra-Fine Mini Pen Needle 31 gauge x 3/16" Active Not available cefdinir 300 mg capsule TAKE 1 CAPSULE BY MOUTH EVERY 12 HOURS FOR 10 DAYS Completed 05/14/2020 cephalexin 500 mg capsule Completed 2020 cholecalciferol (vitamin D3) 50 mcg (2,000 unit) capsule Active Not available ciprofloxacin 0.3 % eye drops INSTILL 1 DROP INTO AFFECTED EYE/S 2 TIMES PER DAY FOR 5 DAYS Completed 06/21/2020 ciprofloxacin 250 mg tablet TK 1 T PO D FOR 5 DAYS FOR SYMPTOMS OF URINARY TRACT INFECTION Completed 02/26/2020 clindamycin HCl 300 mg capsule Completed 0 09/07/2020 dexamethasone 1 mg tablet Completed 2020 dicyclomine 10 mg capsule TK 1 C PO Q 6 H PRF IRRITABLE BOWEL SYNDROME Completed 02/26/2020 Enulose 10 gram/15 mL oral solution TK 30ML PO BID FOR CONSTIPATION Completed 03/05/2 021 escitalopram 10 mg tablet Active Not av ailable ferrous sulfate 325 mg (65 mg iron) tablet Completed 11/19/2020 ferrous sulfate 325 mg (65 mg iron) tabl et,delayed release TAKE 1 TABLET BY MOUTH ONCE DAILY Active Not a vailable fluconazole 150 mg tablet TAKE 1 TABLET BY MOUTH 1 TIME PER DAY FOR 1 DAY Completed 11/19/2020 fluoxetine 10 mg capsule TK 1 C PO QD Completed 02/26/2020 gabapentin 600 mg tablet TK 1 T PO TID Completed 02/26/2020 gabapentin 800 mg tablet TAKE 1 TABLET BY MOUTH THREE TIMES DAILY Completed 05/14/2020 Gas Relief (simethicone) 180 mg capsule TK ONE C PO TID Completed 02/26/2020 glyburide 5 mg tablet Completed 09/07/2020 hydrochlorothiazide 12.5 mg capsule Active Not available Invokana 100 mg tablet Completed Januvia 100 mg tablet Active Not availa ble Januvia 50 mg tablet Completed 07/27/2020 levofloxacin 250 mg tablet Completed 05/14 levofloxacin 500 mg tablet TAKE 1 TABLET BY BY MOUTH ONCE A DAY FOR 10 DAYS Completed 11/19/2020 lisinopril 10 mg tablet Completed 11/02/19 lisinopril 5 mg tablet TAKE 2 TABLETS BY MOUTH DAILY Completed meloxicam 15 mg tablet TK 1 T PO D Completed 02/26/2020 metformin 1,000 mg tablet Active Not av ailable metoclopramide 10 mg tablet TK 1 T PO Q 6 H PRN N Completed 05/14/2020 metronidazole 0.75 % vaginal gel INSERT 1 APPLICATION VAGINALLY AT BEDTIME FOR 7 DAYS Completed 02/26/2020 metronidazole 500 mg tablet TK 1 T PO TID FOR 7 DAYS Completed 02/26/2020 naproxen 500 mg tablet TAKE 1 TABLET BY MOUTH TWICE DAILY WITH MEALS Completed 09/07/2020 nitrofurantoin monohydrate/macrocrystals 100 mg capsule Complete d 11/19/2020 omeprazole 20 mg capsule,delayed release Active Not available omeprazole 40 mg capsule,delayed release TK ONE C PO QD Completed 02/26/2020 ondansetron HCl 4 mg tablet TAKE 1 TABLET BY MOUTH THREE TIMES DAILY FOR 5 DAYS Active Not available OneTouch Delica Plus Lancet 30 gauge USE TO CHECK BLOOD SUGAR TWICE DAILY AND NEEDED Active Not available OneTouch Delica Plus Lancet 33 gauge Active Not available OneTouch Ultra Blue Test Strip Active N ot available OneTouch Ultra Test strips Active Not a vailable OneTouch Verio Flex Meter USE EVERY DAY AND NEEDED Active Not availab le Ozempic 0.25 mg or 0.5 mg (2 mg/1.5 mL) subcutaneous pen injector Inject 0.5 mg every week by subcutaneous route. Active Not available phenazopyridine 100 mg tablet TAKE 1 TABLET BY MOUTH 3 TIMES PER DAY FOR 2 DAYS Completed 11/19/2020 pregabalin 100 mg capsule Active Not av ailable pregabalin 50 mg capsule TAKE 1 CAPSULE BY MOUTH TWICE A DAY Completed sertraline 100 mg tablet TAKE 1 TABLET BY MOUTH DAILY Completed 05/14/2020 sertraline 25 mg tablet TK 1 T PO QD Completed 02/26/2020 sertraline 50 mg tablet TK 1 T PO D IN THE MORNING Completed 02/26/2020 SSD 1 % topical cream BRIANA TOPICALLY AA BID Completed 06/21/2020 sulfamethoxazole 800 mg-trimethoprim 160 mg tablet TAKE 1 TABLET BY MOUTH TWICE A DAY FOR 7 DAYS Completed 06/21/2020 Trulicity 0.75 mg/0.5 mL subcutaneous pe n injector INJ 0.75MG SC WEEKLY Completed 02/26/2020 Trulicity 1.5 mg/0.5 mL subcutaneous pen injector INJECT SQ ONCE WEEKLY Completed 09/07/2020 Victoza 2-Dave 0.6 mg/0.1 mL (18 mg/3 mL) subcutaneous pen injector Inject 0.6mg once daily x 7 days, then increase to 1.2mg once daily Unknown Not available Problems Name Status Onset Date Source Severe Obesity Active 10/29/2012 History Vitamin D Deficiency Active 02/12/2013 History Neuropathy Active 02/12/2013 History Screening for Malignant Neoplasm of Cervix Unknown 02/[address] Concept Unknown 02/12/2013 History Clinical Finding Unknown 04/05/2017 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 Hist ory Body Mass Index 30+ - Obesity Active 11/14/2017 Hi story Anemia Unknown 11/14/2017 History Lumbosacral Radiculopathy Active 12/31/2017 Histor y Influenza Vaccine Needed Unknown 04/19/2018 History Chest Pain Unknown 05/07/2019 History Pain of Left Hip Joint Active 05/07/2019 History Localized Edema Active 07/28/2019 History Type II Diabetes Mellitus Uncontrolled Active 0 History Menorrhagia Active 08/27/2019 History Evaluation Finding Unknown 08/27/2019 History Adjustment Disorder with Anxious Mood Unknown 09/22/2019 History Acute Cystitis Unknown 09/25/2019 History Iron Deficiency Anemia Active 09/30/2019 History Screening Mammography Unknown 09/30/[address] Concept Unknown 09/30/2019 History Breast Neoplasm Screening Status Unknown 09/30/2019 History Generalized Anxiety Disorder Active 10/07/2019 His tory Posttraumatic Stress Disorder Active 10/07/2019 Hi story Dental Arch Length Loss Secondary to Dental Caries Unknown 10/31/2019 History Finding of Mantoux Test Unknown 11/19/2019 History Procedure by Method Unknown 11/19/[address] Concept Unknown 11/19/2019 History Dyspnea Active 12/17/2019 History Covid-19 Unknown 12/17/2019 History Finding of Esophagus Unknown 12/24/2019 History Essential Hypertension Active 02/26/2020 Gastroesophageal Reflux Disease without Esophagitis Active 02/26/2020 Depressive Disorder Active History SNOMED CT Concept Unknown History Procedures Date Name Performed by 06/21/2020 Electrocardiogram [facility] [address] [place] [address] (Work Place) 11/19/2020 US, Duplex, Venous, [facility] [address] [place] [address] (Work Place) Notes: D&C Results Lab Results Date Name Specimen Result Interpretation Description Value Range Status Address 06/23/2020 CT + NG + TV, DNA, Urine/swab Urine No obse rvation recorded. [facility] (Lab): [address] [facility] 06/21/2020 Urinalysis, Dipstick, Auto Normal Bilirubin ne g Final [facility]: [address], [place] ABNORMAL Blood 3+ Final [facility] ical: [address], [place] ABNORMAL Glucose 3+ Final [facility] M edical: [address], [place] ABNORMAL Ketone 2+ Final [facility] dical: [address], [place] Normal Leukocytes neg Final [facility] [address] [facility] [address] [place] Normal Nitrite neg Final [facility]: [address] [address] [place] Normal Ph 6.0 Final [facility]ica l: [address] [facility] [address], [place] ABNORMAL Protein 1+ Final [facility] edical: [address] [facility] [address], [place] Normal Specific Mobile 1.020 Final [facility]: [address] [facility] [address], [place] Normal Urobilinogen 0.2 mg/dL Final [facility]: [address] [facility] [address], [place] 06/15/2020 CMP, Serum or Plasma Blood venous No observa tion recorded. [facility]: [address] [facility] [address], [place] 06/15/2020 HbA1C (Hemoglobin a1C), Blood Blood venous Hemoglobin a1C 10.6 [facility] Ce nter (Lab): [address] [facility] 03/19/2020 CBC W/ Auto Diff Blood venous Normal White Blood C ount 6.5 10 4.0-10.0 10 Final [facility]: 83 0 [facility] Blood venous Normal Red Blood Count 4.55 10 4.00- 5.40 10 Final [facility]: [address] [facility] Blood venous Normal Hemoglobin 13.3 g/dL 12.0-15. 5 g/dL [facility]: [address] [facility] Blood venous Normal Hematocrit 41.5 % 36.0-47.0 % [facility]: [address] [facility] Blood venous Normal Mean Corpuscular Volume 91.2 fL 80.0-96.0 fL Final [facility]: [address] [facility] Blood venous Normal Mean Corpuscular Hemoglob in 29.2 pg 27.0-33.0 pg Final [facility]: [address] [facility] Blood venous Normal Mean Corpuscular HGB Conc 32.0 g/dL 32.0-36.5 g/dL Final [facility]: [address] [place] [address] Blood venous Normal Red Cell Distribution Wid th 13.2 % 11.5-14.5 % [facility]: [address] [place] [address] Blood venous Normal Platelet Count, Automated 276 10 150-450 10 [facility]: [address] [place] [address] Blood venous High Neutrophils % 69.3 % 36.0-66. 0 % [facility]: [address] [place] [address] Blood venous Low Lymph % 22.7 % 24.0-44.0 % [facility]: [address] [place] [address] Blood venous High Bradford % 5.2 % 0.0-5.0 % [facility]: [address] [place] [address] Blood venous Normal Eos % 2.0 % 0.0-3.0 % [facility]: [address] [place] [address] Blood venous Normal Baso % 0.5 % 0.0-1.0 % [facility]: [address] [place] [address] Blood venous Normal Immature Granulocyte % 0.3 % 0-3.0 % [facility]: [address] [place] [address] Blood venous Normal Nucleated Red Blood Cell % 0. 0 % 0-0 % [facility]: [address] [place] [address] Blood venous Normal Neutrophils # 4.5 10 1.5-8.5 10 [facility]: [address] [place] [address] Blood venous Normal Lymph # 1.5 10 1.5-5.0 10 [facility]: [address] [place] [address] Blood venous Normal Bradford # 0.3 10 0.0-0.8 10 [facility]: [address] [place] [address] Blood venous Normal Eos # 0.1 10 0.0-0.5 10 [facility]: [address] [place] [address] Blood venous Normal Baso # 0.0 10 0.0-0.2 10 [facility]: [address] [place] [address] 03/19/2020 CMP, Serum or Plasma Blood venous High Glu cose, Fasting 328 mg/dL 70-100 mg/dL [facility] nter: [address] [facility] Blood venous Normal Blood Urea Nitrogen 11 mg/dL 7-18 mg/dL [facility]: [address] [place] [address] Blood venous Normal Creatinine for GFR 0.74 mg/dL 0.55-1.30 mg/dL [facility]: [address] [place] [address] Blood venous Normal Glomerular Filtration Rate > 60.0 >58 [facility]: [address] [facility] Blood venous Low Sodium Level 134 mEq/L 136-14 5 mEq/L [facility]: [address] [place] [address] Blood venous Normal Potassium Serum 4.4 mEq/L 3.5 -5.1 mEq/L [facility]: [address] [place] [address] Blood venous Normal Chloride Level 98 mEq/L 98-10 7 mEq/L [facility]: [address] [place] [address] Blood venous Normal Carbon Dioxide Level 26 mEq/L 21-32 mEq/L [facility]: [address] [facility] Blood venous Normal Anion Gap 10 mEq/L 8-16 mEq/L [facility]: [address] [place] [address] Blood venous Normal Calcium Level 8.9 mg/dL 8.5-1 0.1 mg/dL [facility]: [address] [facility] Blood venous Normal AST/SGOT 16 U/L 7-37 U/L [facility] el[place] [facility]: [address] [facility] Blood venous Normal ALT/SGPT 35 U/L 12-78 U/L [facility]: [address] [facility] Blood venous Normal Alkaline Phosphatase 96 U/L 4 5-117 U/L [facility]: 0 [facility] Blood venous Normal Bilirubin,total 0.3 mg/dL 0.2 -1.0 mg/dL [facility]: [address] [facility] Blood venous Normal Total Protein 6.4 gm/dL 6.4-8 .2 gm/dL [facility]: [address] [place] [address] Blood venous Normal Albumin 3.6 gm/dL 3.2-5.2 gm/ dL [facility]: [address] [place] [address] Blood venous Normal Albumin/globulin Ratio 1.3 1.2-2.2 [facility]: [address] [facility] 03/19/2020 Amylase, Serum or Plasma Low Amylase 14 U/L 25-115 U/L [facility]: [address] [place] [address] 03/19/2020 Lipase, Serum or Plasma Blood venous Normal Lipase 189 U/L 73- 393 U/L [facility]: 83 0 [facility] 03/19/2020 Culture, Urine URINE,CLEAN CATCH No observation recorded. [facility]: [address] [place] [address] 02/20/2020 Cbc Blood venous Normal White Blood Count 5.7 10 4.0-10.0 10 [facility]: [address] [place] [address] Blood venous Normal Red Blood Count 4.47 10 4.00- 5.40 10 [facility]: [address] [place] [address] Blood venous Normal Hemoglobin 13.7 g/dL 12.0-15. 5 g/dL [facility]: [address] [place] [address] Blood venous Normal Hematocrit 41.3 % 36.0-47.0 % [facility]: [address] [place] [address] Blood venous Normal Mean Corpuscular Volume 92.4 fL 80.0-96.0 fL [facility]: [address] [place] [address] Blood venous Normal Mean Corpuscular Hemoglob in 30.6 pg 27.0-33.0 pg [facility]: [address] [place] [address] Blood venous Normal Mean Corpuscular HGB Conc 33.2 g/dL 32.0-36.5 g/dL [facility]: [address] [place] [address] Blood venous Normal Red Cell Distribution Wid th 13.1 % 11.5-14.5 % [facility]: [address] [place] [address] Blood venous Normal Platelet Count, Automated 280 10 150-450 10 [facility]: [address] [place] [address] Blood venous Normal Nucleated Red Blood Cell % 0. 0 % 0-0 % [facility]: [address] [place] [address] 02/20/2020 CMP, Serum or Plasma Blood venous High Glu cose, Fasting 236 mg/dL 70-100 mg/dL [facility] nter: [address] [place] [address] Blood venous Normal Blood Urea Nitrogen 14 mg/dL 7-18 mg/dL [facility]: [address] [place] [address] Blood venous Normal Creatinine for GFR 0.65 mg/dL 0.55-1.30 mg/dL [facility]: [address] [place] [address] Blood venous Normal Glomerular Filtration Rate > 60.0 >58 [facility]: [address] [place] [address] Blood venous Low Sodium Level 135 mEq/L 136-14 5 mEq/L [facility]: [address] [place] [address] Blood venous Normal Potassium Serum 4.4 mEq/L 3.5 -5.1 mEq/L [facility]: [address] [place] [address] Blood venous Normal Chloride Level 102 mEq/L 98-1 07 mEq/L [facility]: [address] [place] [address] Blood venous Normal Carbon Dioxide Level 27 mEq/L 21-32 mEq/L [facility]: [address] [place] [address] Blood venous Low Anion Gap 6 mEq/L 8-16 mEq/L [facility]: [address] [place] [address] Blood venous Normal Calcium Level 9.4 mg/dL 8.5-1 0.1 mg/dL [facility]: 0 [facility] Blood venous Normal AST/SGOT 10 U/L 7-37 U/L [facility] [place] [facility]: [address] [place] [address] Blood venous Normal ALT/SGPT 26 U/L 12-78 U/L [facility]: 0 [facility] Blood venous Normal Alkaline Phosphatase 92 U/L 4 5-117 U/L [facility]: [address] [place] [address] Blood venous Normal Bilirubin,total 0.3 mg/dL 0.2 -1.0 mg/dL [facility]: [address] [place] [address] Blood venous Normal Total Protein 6.5 gm/dL 6.4-8 .2 gm/dL [facility]: [address] [place] [address] Blood venous Normal Albumin 3.3 gm/dL 3.2-5.2 gm/ dL [facility]: [address] [place] [address] Blood venous Low Albumin/globulin Ratio 1.0 1.2-2.2 [facility]: [address] [place] [address] 02/20/2020 Lipid Panel, Blood Blood venous High Trigl ycerides Level 298 mg/dL <150 mg/dL [facility] nter: [address] [place] [address] Blood venous Normal Cholesterol Level 162 mg/dL < 200 mg/dL [facility]: [address] [place] [address] Blood venous Low HDL Cholesterol 37 mg/dL >40 mg/dL [facility]: [address] [place] [address] Blood venous Normal LDL Cholesterol 65 mg/dL <100 mg/dL [facility]: [address] [place] [address] Blood venous Normal Non-hdl-c 125 mg/dL [facility]: [address] [place] [address] Blood venous Normal Cholesterol Risk Ratio 4.378 <5 [facility]: [address] [place] [address] 02/20/2020 TIBC (Total Iron-binding Capacity), Serum Normal Iron (Fe) 80 ug/dL 50-170 ug/dL [facility] nter: [address] [place] [address] Normal Total Iron Binding Capacity 289 ug/d L 250-450 ug/dL [facility]: [address] [place] [address] Normal Percent Saturation 27.7 % 13.2-45.0 % [facility]: [address] [place] [address] 02/20/2020 Vitamin D, 25-Hydroxy, Total, Serum Blood venous Normal Total 25(Oh) Vitamin D 32.0 NG/mL 30.0-100.0 NG/mL [facility]: [address] [place] [address] 02/20/2020 Ferritin, Serum or Plasma Normal Ferritin 23 NG/mL 8-252 NG/mL Final [facility]: [address] [place] [address] 02/20/2020 HbA1C (Hemoglobin a1C), Blood Normal Hemogl obin a1C 10.5 % Final [facility]: [address] [place] [address] High Estimated Average Glucose 255 mg/dL 60-110 mg/dL Final [facility]: [address] [place] [address] 02/20/2020 Microalbumin, Urine Urine Normal Creatinine, Urin e 125.0 mg/dL Final [facility]: [address] [place] [address] Urine Normal Malb Urine Siemens 118.0 mg/L Final [facility]: [address] [place] [address] Urine High Ricky/creat Ratio 94.4 mcg/mg 0.0-30.0 mcg/mg Final [facility]: [address] [place] [address] Test, Urine Hcg negative [facility]: [address] [facility] [address], [place] Urinalysis, Dipstick, Auto Bilirubin neg [facility]: [address] [facility] [address] [place] Blood neg [facility] al: [address], [place] Glucose 60 [facility] ical: [address], [place] Ketone 1.5 [facility] Medi karl: [address] [facility] [address] [place] Leukocytes neg [facility]: [address], [place] Nitrite pos [facility] ical: [address], [place] Ph 6.0 [facility]ica l: [address], [place] Protein neg [facility] ical: [address], [place] Specific Mobile 1.015 [facility]: [address] [facility] [address] [place] Urobilinogen 3.5 [facility] Medical: [address], [place] Past Encounters 11/19/2020 Type II Diabetes Mellitus Uncontrolled; Edema; Muscle Pain; Severe Obesity Serge Weller, RPA-C: [address], [place] [address], Ph. 11/12/2020 Type II Diabetes Mellitus Uncontrolled; Vitamin D Deficiency Serge Weller [facility]: [address] [facility] [address], [place] [address], Ph. 09/07/2020 Type II Diabetes Mellitus Uncontrolled; Candidiasis of Vagina; Vitamin D Deficiency; Dizziness; Sweating; Body Mass Index 30+ - Obesity; Severe Obesity Serge Weller [facility] [address] [facility] [address], [place] [address], Ph. 07/19/2020 Depressive Disorder; Generalized Anxiety Disorder Flaca Rosario [facility]: [address] [address], [place] [address], Ph. 06/23/2020 Dysuria ARUNA Alcaraz: [address] [address], [place] [address], Ph. 06/21/2020 Daytime Somnolence; Dysuria; Type II Diabetes Mellitus Uncontrolled; Mixed Anxiety and Depressive Disorder; Conjunctivitis; Intermittent Palpitations; Hypertensive Disorder; Gastroesophageal Reflux Disease without Esophagitis; Iron Deficiency Anemia; Vitamin D Deficiency; Pain of Left Hip Joint; Hot Sweats Yazmin Yoo [facility]: [address] [address], [place] [address], Ph. 06/15/2020 Vitamin D Deficiency; Iron Deficiency Anemia; Severe Obesity Tati Scott MD: [address] [facility] [address], [place] [address], Ph. 06/09/2020 SARS-CoV-2 Vaccination LLOYD LeónP-C: [address] [place] [address], Ph. 05/14/2020 Depressive Disorder; Posttraumatic Stress Disorder; Generalized Anxiety Disorder; Iron Deficiency Anemia; Gastroesophageal Reflux Disease without Esophagitis; Essential Hypertension; Neoplasm of Endocrine Gland; Severe Obesity; Type II Diabetes Mellitus Uncontrolled; Vitamin D Deficiency Yazmin Yoo RPA-C: [address] [facility], [facility] [address], [place] [address], Ph. 05/12/2020 SARS-CoV-2 Vaccination Hilary Johnson RPA-C: [address] [facility] [place] [address], Ph. 04/29/2020 [facility]: [address] [facility], [facility] [address], [place] [address], Ph. 03/29/2020 Generalized Anxiety Disorder Flaca Rosario [facility]: [address] [facility], [facility] [address], [place] [address], Ph. 03/19/2020 Diarrhea; Increased Frequency of Urination; Dysuria; Abdominal Pain ARUNA AlcarazC: [address] [facility], [facility] [address], [place] [address], Ph. 02/26/2020 Visual Disturbance; Generalized Anxiety Disorder; Depressive Disorder; Iron Deficiency Anemia; Lumbosacral Radiculopathy; Type II Diabetes Mellitus Uncontrolled; Essential Hypertension; Gastroesophageal Reflux Disease without Esophagitis ARUNA SteinC: [address] [facility], [facility] [address], [place] [address], Ph. 02/20/2020 Type II Diabetes Mellitus Uncontrolled; Anemia; Vitamin D Deficiency ARUNA SteinC: [address] [facility], [facility] [address], [place] [address], Ph. Social History Tobacco Smoking Status Never Smoker Vaccine List Vaccine Type COVID-19, mRNA, LNP-S, PF, 100 mcg/0.5 m L dose .5 mL 10.5 mL Influenza, injectable, MDCK, preservativ e free, quadrivalent .5 mL influenza, injectable, quadrivalent, pre servative free .5 mL .5 mL Plan of Care Patient Instructions WE DISCUSSED, WE WILL SEND A RX FOR A BLOOD PRESSURE MONITOR. WE WILL SEE YOU BACK IN 3 WEEKS AFTER YOU HAVE SEEN THE DIESEL ENGINE ENGINEER TO SEE WHAT THEIR RECOMMENDATIONS ARE AND TO POSSIBLY ADJUST YOUR MEDICATIONS THEN. IF YOUR EYE DOES NOT IMPROVE WITH THE ALAWAY DROPS PLEASE CONTACT US AND CONTACT THE EYE DR YOU ARE SCHEDULED WITH TO SEE IF THEY CAN GET YOU IN SOONER. WE HAVE REFERRED YOU TO OUR TELEPSYCHIATRIST AND FOR A SLEEP STUDY. WE WILL INCREASE YOUR VIT D TO 2 TABS DAILY AND RECHECK IT IN 3 MONTHS. WE WILL REFER YOU TO CARDIOLOGY FOR THE PALPITATIONS. GO DIRECTLY TO THE ER FOR CHEST PAIN, NAUSEA, SHORTNESS OF BREATH, PAIN IN ARM AT REST OR WITH EXERTION, DIZZINESS, FAINTNESS. As we discussed, you should go directly to [facility] health walk- in clinic and we will schedule your for labs and to f/u on your other medical problems in 1-2 weeks. Go directly to the ER if you start having thought so hurting yourself or others. You should return to the clinic for wors ening symptoms. Go directly to the ER for inability to keep down fluids, lethargy, faintness, localized abdominal pain, decreased urinary output, bloody stools or other worsening symptoms. Reminders Provider Appointments None recorded. Lab None recorded. Referral None recorded. Procedures None recorded. Surgeries None recorded. Imaging None recorded. Vitals 11/19/2020 04:10PM ESTABLISHED [id number] Height Weight BMI Blood Pressure 67 in 332 lbs 52 kg/m2 129/84 mm[Hg] 09/07/2020 09:50AM ESTABLISHED [id number] Height Weight BMI Blood Pressure 67 in 333 lbs 16 oz 52.3 kg/m2 121/84 mm[Hg] 06/21/2020 10:10AM ESTABLISHED [id number] Height Weight BMI Blood Pressure 67 in 349 lbs 3.2 oz 54.7 kg/m2 (1) 140/91 m m[Hg] (2) 133/89 mm[Hg] 05/14/2020 09:30AM ESTABLISHED [id number] Height Weight BMI Blood Pressure 67 in 351 lbs 6.4 oz 55 kg/m2 119/84 mm[Hg ] 04/29/2020 01:30PM TELEHEALTH 20 Height 67 in 03/19/2020 10:30AM SAME DAY 20 Height Weight BMI Blood Pressure 67 in 358 lbs 56.1 kg/m2 145/92 mm[Hg] 02/26/2020 11:10AM TELEHEALTH 20 Height 67 in 12/24/2019 Height Weight BMI Blood Pressure 67 in 349 lbs 12.8 oz 54.98 kg/m2 133/86 mm[H g] 12/17/2019 Height Weight BMI Blood Pressure 67 in 367 lbs 9.6 oz 57.78 kg/m2 144/92 mm[Hg ] 11/19/2019 Height Weight BMI Blood Pressure 67 in 354 lbs 55.64 kg/m2 117/81 mm[Hg] 09/30/2019 Height Weight BMI Blood Pressure 67 in 354 lbs 8 oz 55.72 kg/m2 112/79 mm[Hg] 09/25/2019 Height Weight BMI Blood Pressure 67 in 353 lbs 55.49 kg/m2 112/76 mm[Hg] 08/27/2019 Height Weight BMI Blood Pressure 67 in 356 lbs 55.96 kg/m2 115/66 mm[Hg] 07/28/2019 Height Weight BMI Blood Pressure 67 in 341 lbs 2.08 oz 53.62 kg/m2 139/86 mm[H g] 05/07/2019 Height Weight BMI Blood Pressure 67 in 337 lbs 52.97 kg/m2 132/86 mm[Hg] 02/10/2019 Height Weight BMI Blood Pressure 67 in 331 lbs 52.03 kg/m2 148/90 mm[Hg] 04/19/2018 Height Weight BMI Blood Pressure 67 in 364 lbs 4 oz 57.26 kg/m2 113/76 mm[Hg]
--- OUTSIDE RECORDS SUMMARY | 2021-01-09 19:16 | CCD ---
Author Organization Unknown Address [address] [place] [address] Phone [phone] Care Team Providers Care Doctor Of Audiology Name Role Phone Serge Weller Josefina Unavailable Unavailable Allergies Code Code System Name Reaction Severity Status Onset Penicillin Active 8 4678003 RxNorm Trulicity Diarrhea Severe Active 07/05/2020 5999925 RxNorm Invokana Other Moderate to Severe Active [...] WHEEZING OR SHORTNESS OF BREATH Completed 05/14/2020 Toby Lowe U-100 Insulin 100 unit/ mL (3 mL) subcutaneous INJECT 30 UNITS EVERY DAY BY SUBCUTANEOUS ROUTE IN THE EVENING FOR 30 DAYS. Active Not available BD Ultra-Fine Mini Pen Needle [...] TK 30ML PO BID FOR CONSTIPATION Completed escitalopram 10 mg tablet TAKE 1 TABLET BY MOUTH EVERY DAY Active Not av ailable ferrous sulfate 325 mg (65 mg iron) tabl et TAKE 1 TABLET BY MOUTH EVERY DAY Active Not av ailable ferrous sulfate 325 mg (65 mg iron) tabl et,delayed release TAKE 1 TABLET BY MOUTH ONCE DAILY Active Not a vailable fluconazole 150 mg tablet TAKE 1 TABLET BY MOUTH 1 TIME PER DAY FOR 1 DAY Active Not available fluoxetine 10 mg capsule TK 1 C PO QD Completed 02/26/2020 gabapentin 600 mg tablet TK 1 T PO TID Completed 02/26/2020 gabapentin 800 mg tablet TAKE 1 TABLET BY MOUTH THREE TIMES DAILY Completed 05/14/2020 Gas Relief (simethicone) 180 mg capsule TK ONE C PO TID Completed 02/26/2020 glyburide 5 mg tablet Completed 09/07/2020 hydrochlorothiazide 12.5 mg capsule TAKE 1 CAPSULE BY MOUTH DAILY NEEDED FOR EDEMA Active Not available Invokana 100 mg tablet Active Not avail able Januvia 100 mg tablet Active Not availa ble Januvia 50 mg tablet Completed 07/27/2020 levofloxacin 250 mg tablet Completed 05/14 levofloxacin 500 mg tablet TAKE 1 TABLET BY BY MOUTH ONCE A DAY FOR 10 DAYS Active Not available lisinopril 10 mg tablet Active Not avai lable lisinopril 5 mg tablet TAKE 2 TABLETS BY MOUTH DAILY Completed meloxicam 15 mg tablet TK 1 T PO D Completed 02/26/2020 metformin 1,000 mg tablet TAKE 1 TABLET BY MOUTH TWICE A DAY WITH MEALS Active Not available metoclopramide 10 mg tablet TK 1 T [...] Completed 09/07/2020 nitrofurantoin monohydrate/macrocrystals 100 mg capsule Active Not available omeprazole 20 mg capsule,delayed release Active Not [...] 0.5 mg (2 mg/1.5 mL) subcutaneous pen injecto r Active Not available phenazopyridine 100 mg tablet TAKE 1 TABLET BY MOUTH 3 TIMES PER DAY FOR 2 DAYS Active Not available pregabalin 100 mg capsule Active Not av [...] Procedures Date Name Performed by 06/21/2020 Electrocardiogram [facility] [address] [place] [address] ( (Work Place) Notes: D&C Results Lab Results Date Name Specimen Result Interpretation Description Value Range Status Address 06/23/2020 CT + NG + TV, DNA, Urine/swab Urine No obse rvation recorded. [facility] (Lab): [address] [facility] [place] 06/21/2020 Urinalysis, Dipstick, Auto Normal Bilirubin ne g Final [facility]: [address], [place] ABNORMAL Blood 3+ Final [facility] ical: [address], [place] ABNORMAL Glucose 3+ Final [facility]: [address], [place] ABNORMAL Ketone 2+ Final [facility]: [address], [place] Normal Leukocytes neg Final [facility]: [address], [place] Normal Nitrite neg Final [facility]: [address] [facility] [address], [place] Normal Ph 6.0 Final [facility] l: [address] [facility] [address], [place] ABNORMAL Protein 1+ Final [facility]: [address] [facility] [address], [place] Normal Specific Chamois 1.020 Final [facility]: [address] [facility] [address], [place] Normal Urobilinogen 0.2 mg/dL Final [facility]: [address] [facility] [address], [place] 06/15/2020 HbA1C (Hemoglobin a1C), Blood Blood venous Hemoglobin a1C 10.6 [facility] (Lab): [address] [facility] 03/19/2020 CBC W/ Auto Diff Blood venous Normal White Blood C ount 6.5 10 4.0-10.0 10 Final [facility]: 83 0 [facility] Blood venous Normal Red Blood Count 4.55 10 4.00- 5.40 10 Final [facility]: [address] [facility] Blood venous Normal Hemoglobin 13.3 g/dL 12.0-15. 5 g/dL [facility]: [address] [facility] Blood venous Normal Hematocrit 41.5 % 36.0-47.0 % [facility]: [address] [facility] Blood venous Normal Mean Corpuscular Volume 91.2 fL 80.0-96.0 fL [facility]: [address] [facility] Blood venous Normal Mean Corpuscular Hemoglob in 29.2 pg 27.0-33.0 pg [facility]: [address] [facility] Blood venous Normal Mean Corpuscular HGB Conc 32.0 g/dL 32.0-36.5 g/dL Final [facility]: [address] [facility] Blood venous Normal Red Cell Distribution Wid th 13.2 % 11.5-14.5 % [facility]: [address] [facility] Blood venous Normal Platelet Count, Automated 276 10 150-450 10 [facility]: [address] [place] [address] Blood venous High Neutrophils % 69.3 % 36.0-66. 0 % [facility]: [address] [place] [address] Blood venous Low Lymph % 22.7 % 24.0-44.0 % [facility]: [address] [place] [address] Blood venous High Mason % 5.2 % 0.0-5.0 % [facility]: [address] [place] [address] Blood venous Normal Eos % 2.0 % 0.0-3.0 % [facility]: [address] [place] [address] Blood venous Normal Baso % 0.5 % 0.0-1.0 % [facility]: [address] [place] [address] Blood venous Normal Immature Granulocyte % 0.3 % 0-3.0 % [facility]: [address] [place] [address] Blood venous Normal Nucleated Red Blood Cell % 0. 0 % 0-0 % [facility]: [address] [place] [address] Blood venous Normal Neutrophils # 4.5 10 1.5-8.5 10 [facility]: [address] [place] [address] Blood venous Normal Lymph # 1.5 10 1.5-5.0 10 [facility]: [address] [place] [address] Blood venous Normal Mason # 0.3 10 0.0-0.8 10 [facility]: [address] [place] [address] Blood venous Normal Eos # 0.1 10 0.0-0.5 10 [facility]: [address] [place] [address] Blood venous Normal Baso # 0.0 10 0.0-0.2 10 [facility]: [address] [place] [address] 03/19/2020 CMP, Serum or Plasma Blood venous High Glu cose, Fasting 328 mg/dL 70-100 mg/dL [facility] nter: [address] [place] [address] Blood venous Normal Blood Urea Nitrogen 11 mg/dL 7-18 mg/dL [facility]: [address] [place] [address] Blood venous Normal Creatinine for GFR 0.74 mg/dL 0.55-1.30 mg/dL [facility]: [address] [facility] Blood venous Normal Glomerular Filtration Rate > 60.0 >58 [facility]: [address] [facility] Blood venous Low Sodium Level 134 mEq/L 136-14 5 mEq/L [facility]: [address] [place] [address] Blood venous Normal Potassium Serum 4.4 mEq/L 3.5 -5.1 mEq/L [facility]: [address] [place] [address] Blood venous Normal Chloride Level 98 mEq/L 98-10 7 mEq/L [facility]: [address] [place] [address] Blood venous Normal Carbon Dioxide Level 26 mEq/L 21-32 mEq/L [facility]: [address] [place] [address] Blood venous Normal Anion Gap 10 mEq/L 8-16 mEq/L [facility]: [address] [place] [address] Blood venous Normal Calcium Level 8.9 mg/dL 8.5-1 0.1 mg/dL [facility]: [address] [facility] Blood venous Normal AST/SGOT 16 U/L 7-37 U/L [facility]: [address] [place] [address] Blood venous Normal ALT/SGPT 35 U/L 12-78 U/L [facility]: [address] [place] [address] Blood venous Normal Alkaline Phosphatase 96 U/L 4 5-117 U/L [facility]: [address] [place] [address] Blood venous Normal Bilirubin,total 0.3 mg/dL 0.2 -1.0 mg/dL [facility]: [address] [place] [address] Blood venous Normal Total Protein 6.4 gm/dL 6.4-8 .2 gm/dL [facility]: [address] [place] [address] Blood venous Normal Albumin 3.6 gm/dL 3.2-5.2 gm/ dL [facility]: [address] [place] [address] Blood venous Normal Albumin/globulin Ratio 1.3 1.2-2.2 [facility]: [address] [place] [address] 03/19/2020 Amylase, Serum or Plasma Low Amylase 14 U/L 25-115 U/L [facility]: [address] [facility] 03/19/2020 Lipase, Serum or Plasma Blood venous Normal Lipase 189 U/L 73- 393 U/L [facility]: 83 0 [facility] 03/19/2020 Culture, Urine URINE,CLEAN CATCH No observation recorded. [facility]: 0 [facility] 02/20/2020 Cbc Blood venous Normal White Blood Count 5.7 10 4.0-10.0 10 [facility]: [address] [facility] Blood venous Normal Red Blood Count 4.47 10 4.00- 5.40 10 [facility]: [address] [facility] Blood venous Normal Hemoglobin 13.7 g/dL 12.0-15. 5 g/dL [facility]: [address] [facility] Blood venous Normal Hematocrit 41.3 % 36.0-47.0 % [facility]: [address] [facility] Blood venous Normal Mean Corpuscular Volume 92.4 fL 80.0-96.0 fL [facility]: 0 [facility] Blood venous Normal Mean Corpuscular Hemoglob in 30.6 pg 27.0-33.0 pg [facility]: [address] [place] [address] Blood venous Normal Mean Corpuscular HGB Conc 33.2 g/dL 32.0-36.5 g/dL [facility]: [address] [facility] Blood venous Normal Red Cell Distribution Wid th 13.1 % 11.5-14.5 % [facility]: [address] [facility] Blood venous Normal Platelet Count, Automated 280 10 150-450 10 [facility]: 0 [facility] Blood venous Normal Nucleated Red Blood Cell % 0. 0 % 0-0 % [facility]: 0 [facility] 02/20/2020 CMP, Serum or Plasma Blood venous High Glu cose, Fasting 236 mg/dL 70-100 mg/dL [facility] nter: [address] [facility] Blood venous Normal Blood Urea Nitrogen 14 mg/dL 7-18 mg/dL [facility]: [address] [facility] Blood venous Normal Creatinine for GFR 0.65 mg/dL 0.55-1.30 mg/dL [facility]: [address] [facility] Blood venous Normal Glomerular Filtration Rate > 60.0 >58 [facility]: [address] [facility] Blood venous Low Sodium Level 135 mEq/L 136-14 5 mEq/L [facility]: [address] [facility] Blood venous Normal Potassium Serum 4.4 mEq/L 3.5 -5.1 mEq/L [facility]: [address] [facility] Blood venous Normal Chloride Level 102 mEq/L 98-1 07 mEq/L [facility]: [address] [facility] Blood venous Normal Carbon Dioxide Level 27 mEq/L 21-32 mEq/L [facility]: [address] [facility] Blood venous Low Anion Gap 6 mEq/L 8-16 mEq/L [facility]: [address] [facility] Blood venous Normal Calcium Level 9.4 mg/dL 8.5-1 0.1 mg/dL [facility]: [address] [facility] Blood venous Normal AST/SGOT 10 U/L 7-37 U/L [facility]: [address] [facility] Blood venous Normal ALT/SGPT 26 U/L 12-78 U/L [facility]: [address] [facility] Blood venous Normal Alkaline Phosphatase 92 U/L 4 5-117 U/L [facility]: [address] [facility] Blood venous Normal Bilirubin,total 0.3 mg/dL 0.2 -1.0 mg/dL [facility]: [address] [facility] Blood venous Normal Total Protein 6.5 gm/dL 6.4-8 .2 gm/dL [facility]: [address] [facility] Blood venous Normal Albumin 3.3 gm/dL 3.2-5.2 gm/ dL [facility]: [address] [place] [address] Blood venous Low Albumin/globulin Ratio 1.0 1.2-2.2 [facility]: [address] [place] [address] 02/20/2020 Lipid Panel, Blood Blood venous High Trigl ycerides Level 298 mg/dL <150 mg/dL [facility] nter: [address] [place] [address] Blood venous Normal Cholesterol Level 162 mg/dL < 200 mg/dL [facility]: [address] [place] [address] Blood venous Low HDL Cholesterol 37 mg/dL >40 mg/dL [facility]: [address] [place] [address] Blood venous Normal LDL Cholesterol 65 mg/dL <100 mg/dL [facility]: [address] [place] [address] Blood venous Normal Non-hdl-c 125 mg/dL Health system: [address] [place] [address] Blood venous Normal Cholesterol Risk Ratio 4.378 <5 [facility]: [address] [place] [address] 02/20/2020 TIBC (Total Iron-binding Capacity), Serum Normal Iron (Fe) 80 ug/dL 50-170 ug/dL [facility] nter: [address] [place] [address] Normal Total Iron Binding Capacity 289 ug/d L 250-450 ug/dL [facility]: [address] [place] [address] Normal Percent Saturation 27.7 % 13.2-45.0 % [facility]: [address] [place] [address] 02/20/2020 Vitamin D, 25-Hydroxy, Total, Serum Blood venous Normal Total 25(Oh) Vitamin D 32.0 NG/mL 30.0-100.0 NG/mL [facility]: [address] [place] [address] 02/20/2020 Ferritin, Serum or Plasma Normal Ferritin 23 NG/mL 8-252 NG/mL [facility]: [address] [place] [address] 02/20/2020 HbA1C (Hemoglobin a1C), Blood Normal Hemogl obin a1C 10.5 % [facility]: [address] [place] [address] High Estimated Average Glucose 255 mg/dL 60-110 mg/dL Final [facility]: [address] [facility] 02/20/2020 Microalbumin, Urine Urine Normal Creatinine, Urin e 125.0 mg/dL Final [facility]: [address] [facility] Urine Normal Malb Urine Siemens 118.0 mg/L Final [facility]: [address] [facility] Urine High Ricky/creat Ratio 94.4 mcg/mg 0.0-30.0 mcg/mg Final [facility]: [address] [facility] Test, Urine Hcg negative [facility]: [address] [facility] [address], [place] Urinalysis, Dipstick, Auto Bilirubin neg [facility]: [address] [facility] [address], [place] Blood neg [facility]: [address] [facility] [address], [place] Glucose 60 [facility]: [address] [facility] [address], [place] Ketone 1.5 [facility]: [address] [facility] [address] [place] Leukocytes neg [facility]: [address] [facility] [address] [place] Nitrite pos [facility]: [address] [facility] [address], [place] Ph 6.0 [facility]: [address] [facility] [address], [place] Protein neg [facility]: [address] [facility] [address], [place] Specific [place]amois 1.015 [facility]: [address] [facility] [address], [place] Urobilinogen 3.5 [facility]: [address] [facility] [address], [place] Past Encounters 11/12/2020 Type II Diabetes Mellitus Uncontrolled; Vitamin D Deficiency Serge Weller RPA-C: [address] [facility] [address], [place] [address], Ph. 09/07/2020 Type II Diabetes Mellitus Uncontrolled; Candidiasis of Vagina; Vitamin D Deficiency; Dizziness; Sweating; Body Mass Index 30+ - Obesity; Severe Obesity Serge Weller RPA-C: [address] [facility] [address], [place] [address], Ph. 07/19/2020 Depressive Disorder; Generalized Anxiety Disorder Flaca Rosario [facility]: [address] [facility], [facility] [address], [place] [address], Ph. 06/23/2020 Dysuria Yazmin Yoo RPA-C: [address] [facility], [facility] [address], [place] [address], Ph. 06/21/2020 Daytime Somnolence; Dysuria; Type II Diabetes Mellitus Uncontrolled; Mixed Anxiety and Depressive Disorder; Conjunctivitis; Intermittent Palpitations; Hypertensive Disorder; Gastroesophageal Reflux Disease without Esophagitis; Iron Deficiency Anemia; Vitamin D Deficiency; Pain of Left Hip Joint; Hot Sweats ARUNA AlcarazC: [address] [facility], [facility] [address], [place] [address], Ph. 06/15/2020 Vitamin D Deficiency; Iron Deficiency Anemia; Severe Obesity Tati Scott MD: [address] [facility], [facility] [address], [place] [address], Ph. 06/09/2020 SARS-CoV-2 Vaccination LUZ ELENA León-C: [address] [place] [address], Ph. 05/14/2020 Depressive Disorder; Posttraumatic Stress Disorder; Generalized Anxiety Disorder; Iron Deficiency Anemia; Gastroesophageal Reflux Disease without Esophagitis; Essential Hypertension; Neoplasm of Endocrine Gland; Severe Obesity; Type II Diabetes Mellitus Uncontrolled; Vitamin D Deficiency ARUNA AlcarazC: [address] [facility], [facility] [address], [place] [address], Ph. 05/12/2020 SARS-CoV-2 Vaccination Hilary Johnson RPA-C: [address] [place] [address], Ph. 04/29/2020 [facility]: [address] [facility] [address], [place] [address], Ph. 03/29/2020 Generalized Anxiety Disorder Flaca Rosario [facility]: [address] [facility] [address], [place] [address], Ph. 03/19/2020 Diarrhea; Increased Frequency of Urination; Dysuria; Abdominal Pain Yazmin Yoo, RPA-C: [address] [facility] [address], [place] [address], Ph. 02/26/2020 Visual Disturbance; Generalized Anxiety Disorder; Depressive Disorder; Iron Deficiency Anemia; Lumbosacral Radiculopathy; Type II Diabetes Mellitus Uncontrolled; Essential Hypertension; Gastroesophageal Reflux Disease without Esophagitis Serge Weller, RPA-C: [address] [facility] [address], [place] [address], Ph. 02/20/2020 Type II Diabetes Mellitus Uncontrolled; Anemia; Vitamin D Deficiency Serge Weller, RPA-C: [address] [facility] [address], [place] [address], Ph. Social History Tobacco Smoking Status Never Smoker Vaccine List Vaccine Type COVID-19, mRNA, LNP-S, PF, 100 mcg/0.5 m L dose 10.5 mL 10.5 mL Influenza, injectable, MDCK, preservativ e free, quadrivalent .5 mL influenza, injectable, quadrivalent, pre servative free .5 mL 12/24/20190.5 mL Plan of Care Patient Instructions WE DISCUSSED, WE WILL SEND A RX FOR A BLOOD PRESSURE MONITOR. WE WILL SEE YOU BACK IN 3 WEEKS AFTER YOU HAVE SEEN THE VOLCANOLOGY PROFESSOR TO SEE WHAT THEIR RECOMMENDATIONS ARE AND [...] discussed, you should go directly to [facility] health walk- in clinic and we will [...] Surgeries None recorded. Imaging None recorded. Vitals 09/07/2020 09:50AM ESTABLISHED [id number] Height Weight BMI Blood Pressure 67 in 333 lbs 16 oz 52.3 kg/m2 121/84 mm[Hg] 06/21/2020 10:10AM ESTABLISHED [id number] Height Weight BMI Blood Pressure 67 in 349 lbs 3.2 oz 54.7 kg/m2 (1) 140/91 m m[Hg] (2) 133/89 mm[Hg] 05/14/2020 09:30AM ESTABLISHED [id number] Height Weight BMI Blood Pressure 67 in [...]
--- OUTSIDE RECORDS SUMMARY | 2021-01-09 19:21 | CCD ---
Author Author [facility] Organization [facility] Address Unknown Phone Unavailable Support Name Relationship Address Phone SSV* Next Of Kin [address] [place] [address] [facility] Next Of Kin [address] [address] Kenrtell Huntley Next Of Kin [address] [place] [address] Danni Hazel Next Of Kin [address] [place] [address] Melia Soares Next Of Kin [address] [place], [place] [id number] SAMSCLUDileep Next Of Kin [address] [place] [address] REANNA VALDEZ Next Of Kin [address] [place] [address] Doris Cullen MD Next Of Kin [address] [place], [place] [id number] [facility] Next Of Kin [address] [place] [address] [employer] Next Of Kin [address] [place] [address] [place] [employer] [place] Next [place] [id number] [place] [address] PRICECHOP Next Of Kin [address] [place] [address] CHLOE Next Of Kin [address] [place] [id number] RAMYUE [place] [address] UE Next Of Kin Unknown Unavailable SUPERDUPER Next Of Kin [address] [place] [address] LATOSHA [place] [address] JR* [place] [address] [facility] [place] [address] YAIMA SYKLAR Next Of Kin [address] [facility] [address] [place] [id number] HAMILTON STAPLETON Next Of Kin [facility] [place] [place] [address] Care Team Providers Care Clothing Busheler Name Role Phone WELLER, SERAFIN KENTRELL RPA-C Unavailable Unavailable WELLER, SERAFIN KENTRELL RPA-C Unavailable Unavailable WELLER, SERAFIN KENTRELL RPA-C Unavailable Unavailable WELLER, SERAFIN KENTRELL RPA-C Unavailable Unavailable WELLER, SERAFIN KENTRELL RPA-C Unavailable Unavailable WELLER, SERAFIN KENTRELL RPA-C Unavailable Unavailable WELLER, SERAFIN KENTRELL RPA-C Unavailable Unavailable WELLER, SERAFIN KENTRELL RPA-C Unavailable Unavailable WELLER, SERAFIN KENTRELL RPA-C Unavailable Unavailable WELLER, SERAFIN KENTRELL RPA-C Unavailable Unavailable WELLER, SERAFIN KENTRELL RPA-C Unavailable Unavailable WELLER, SERAFIN KENTRELL RPA-C Unavailable Unavailable WELLER, SERAFIN KENTRELL RPA-C Unavailable Unavailable WELLER, SERAFIN KENTRELL RPA-C Unavailable Unavailable WELLER, SERAFIN KENTRELL RPA-C Unavailable Unavailable WELLER, SERAFIN KENTRELL RPA-C Unavailable Unavailable WELLER, SERAFIN KENTRELL RPA-C Unavailable Unavailable WELLER, SERAFIN KENTRELL RPA-C Unavailable Unavailable WELLER, SERAFIN KENTRELL RPA-C Unavailable Unavailable WELLER, SERAFIN KENTRELL RPA-C Unavailable Unavailable WELLER, SERAFIN KENTRELL RPA-C Unavailable Unavailable WELLER, SERAFIN KENTRELL RPA-C Unavailable Unavailable WELLER, SERAFIN KENTRELL RPA-C Unavailable Unavailable WELLER, SERAFIN KENTRELL RPA-C Unavailable Unavailable WELLER, SERAFIN KENTRELL RPA-C Unavailable Unavailable WELLER, SERAFIN KENTRELL RPA-C Unavailable Unavailable WELLER, SERAFIN KENTRELL RPA-C Unavailable Unavailable WELLER, SERAFIN KENTRELL RPA-C Unavailable Unavailable WELLER, SERAFIN KENTRELL RPA-C Unavailable Unavailable WELLER, SERAFIN KENTRELL RPA-C Unavailable Unavailable WELLER, SERAFIN KENTRELL RPA-C Unavailable Unavailable WELLER, SERAFIN KENTRELL RPA-C Unavailable Unavailable WELLER, SERAFIN KENTRELL RPA-C Unavailable Unavailable WELLER, SERAFIN KENTRELL RPA-C Unavailable Unavailable WELLER, SERAFIN KENTRELL RPA-C Unavailable Unavailable WELLER, SERAFIN KENTRELL RPA-C Unavailable Unavailable WELLER, SERAFIN KENTRELL RPA-C Unavailable Unavailable WELLER, SERAFIN KENTRELL RPA-C Unavailable Unavailable WELLER, SERAFIN KENTRELL RPA-C Unavailable Unavailable WELLER, SERAFIN KENTRELL RPA-C Unavailable Unavailable WELLER, SERAFIN KENTRELL RPA-C Unavailable Unavailable WELLER, SERAFIN KENTRELL RPA-C Unavailable Unavailable WELLER, SERAFIN KENTRELL RPA-C Unavailable Unavailable Snoia, Sandra Unavailable Unavailable Sonia, Sandra Unavailable Unavailable Sonia, Sandra Unavailable Unavailable Sonia, Sandra Unavailable Unavailable Sonia, Sandra Unavailable Unavailable Sonia, Sandra Unavailable Unavailable Sonia, Sandra Unavailable Unavailable Sonia, Sandra Unavailable Unavailable Sonia, Sandra Unavailable Unavailable Sonia, Sandra Unavailable Unavailable Sonia, Sandra Unavailable Unavailable Soina, Sandra Unavailable Unavailable Sonia, Sandra Unavailable Unavailable Sonia, Sandra Unavailable Unavailable Sonia, Sandra Unavailable Unavailable Sonia, Sandra Unavailable Unavailable Sonia, Sandra Unavailable Unavailable Sonia, Sandra Unavailable Unavailable Sonia, Sandra Unavailable Unavailable Sonia, Sandra Unavailable Unavailable Sonia, Sandra Unavailable Unavailable Sonia, Sandra Unavailable Unavailable Sonia, Sandra Unavailable Unavailable Sonia, Sandra Unavailable Unavailable Sonia, Sandra Unavailable Unavailable Sonia, Sandra Unavailable Unavailable CHADWICK L YAZMIN Unavailable Unavailable AMANDA ZAVALA Unavailable Unavailable MG, MELVIN PA Unavailable Unavailable MG, MELVIN PA Unavailable Unavailable MG, MELVIN PA Unavailable Unavailable MG, MELVIN PA Unavailable Unavailable MG, MELVIN PA Unavailable Unavailable MG, MELVIN PA Unavailable Unavailable MG, MELVIN PA Unavailable Unavailable MG, MELVIN PA Unavailable Unavailable MG, MELVIN PA Unavailable Unavailable MG, MELVIN PA Unavailable Unavailable MG, MELVIN PA Unavailable Unavailable MG, MELVIN PA Unavailable Unavailable MG, MELVIN PA Unavailable Unavailable MG, MELVIN PA Unavailable Unavailable MG, MELVIN PA Unavailable Unavailable MG, MELVIN PA Unavailable Unavailable MG, MELVIN PA Unavailable Unavailable MG, MELVIN PA Unavailable Unavailable MG, MELVIN PA Unavailable Unavailable MG, MELVIN PA Unavailable Unavailable MG, MELVIN PA Unavailable Unavailable MG, MELVIN PA Unavailable Unavailable MG, MELVIN PA Unavailable Unavailable MG, MELVIN PA Unavailable Unavailable MG, MELVIN PA Unavailable Unavailable MG, MELVIN PA Unavailable Unavailable MG, MELVIN PA Unavailable Unavailable MG, MELVIN PA Unavailable Unavailable MG, MELVIN PA Unavailable Unavailable MG, MELVIN PA Unavailable Unavailable MG, MELVIN PA Unavailable Unavailable MG, MELVIN PA Unavailable Unavailable MG, MELVIN PA Unavailable Unavailable MG, MELVIN PA Unavailable Unavailable MG, MELVIN PA Unavailable Unavailable MG, MELVIN PA Unavailable Unavailable MG, MELVIN PA Unavailable Unavailable MG, MELVIN PA Unavailable Unavailable Scordo, M Fatimah PA Unavailable Unavailable Scordo, M Fatimah PA Unavailable Unavailable Scordo, M Fatimah PA Unavailable Unavailable Scordo, M Fatimah PA Unavailable Unavailable Scordo, M Fatimah PA Unavailable Unavailable Scordo, M Fatimah PA Unavailable Unavailable Scordo, M Fatimah PA Unavailable Unavailable Scordo, M Fatimah PA Unavailable Unavailable Scordo, M Fatimah PA Unavailable Unavailable Scordo, M Fatimah PA Unavailable Unavailable Scordo, M Fatimah PA Unavailable Unavailable Scordo, M Fatimah PA Unavailable Unavailable Scordo, M Fatimah PA Unavailable Unavailable Scordo, M Fatimah PA Unavailable Unavailable Scordo, M Fatimah PA Unavailable Unavailable Scordo, M Fatimah PA Unavailable Unavailable Scordo, M Fatimah PA Unavailable Unavailable Scordo, M Fatimah PA Unavailable Unavailable Scordo, M Fatimah PA Unavailable Unavailable Scordo, M Fatimah PA Unavailable Unavailable Scordo, M Fatimah PA Unavailable Unavailable Scordo, M Fatimah PA Unavailable Unavailable Scordo, M Fatimah PA Unavailable Unavailable Scordo, M Fatimah PA Unavailable Unavailable Scordo, M Fatimah PA Unavailable Unavailable Scordo, M Fatimah PA Unavailable Unavailable Scordo, M Fatimah PA Unavailable Unavailable Scordo, M Fatimah PA Unavailable Unavailable Scordo, M Fatimah PA Unavailable Unavailable Scordo, M Fatimah PA Unavailable Unavailable Scordo, M Fatimah PA Unavailable Unavailable Scordo, M Fatimah PA Unavailable Unavailable Scordo, M Fatimah PA Unavailable Unavailable Scordo, M Fatimah PA Unavailable Unavailable Scordo, M Fatimah PA Unavailable Unavailable Scordo, M Fatimah PA Unavailable Unavailable Scordo, M Fatimah PA Unavailable Unavailable Scordo, M Fatimah PA Unavailable Unavailable Scordo, M Fatimah PA Unavailable Unavailable Scordo, M Fatimah PA Unavailable Unavailable Scordo, M Fatimah PA Unavailable Unavailable Scordo, M Fatimah PA Unavailable Unavailable Scordo, M Fatimah PA Unavailable Unavailable Scordo, M Fatimah PA Unavailable Unavailable Scordo, M Fatimah PA Unavailable Unavailable Scordo, M Fatimah PA Unavailable Unavailable Scordo, M Fatimah PA Unavailable Unavailable Masoud Luo MD Unavailable Unavailable Masoud Luo MD Unavailable Unavailable Masoud Luo MD Unavailable Unavailable Masoud Luo MD Unavailable Unavailable Masoud Luo MD Unavailable Unavailable Masoud Luo MD Unavailable Unavailable Masoud Luo MD Unavailable Unavailable Masoud Luo MD Unavailable Unavailable Masoud Luo MD Unavailable Unavailable Masoud Luo MD Unavailable Unavailable Masoud Luo MD Unavailable Unavailable Masoud Luo MD Unavailable Unavailable Masoud Luo MD Unavailable Unavailable Masoud Luo MD Unavailable Unavailable Masoud Luo MD Unavailable Unavailable Masoud Luo MD Unavailable Unavailable Masoud Luo MD Unavailable Unavailable Masoud Luo MD Unavailable Unavailable Masoud Luo MD Unavailable Unavailable Masoud Luo MD Unavailable Unavailable Masoud Luo MD Unavailable Unavailable Masoud Luo MD Unavailable Unavailable Masoud Luo MD Unavailable Unavailable Masoud Luo MD Unavailable Unavailable Masoud Luo MD Unavailable Unavailable Masoud Luo MD Unavailable Unavailable Zakia Luotech Unavailable Unavailable Masoud Luo MD Unavailable Unavailable Masoud Luo MD Unavailable Unavailable Masoud Luo MD Unavailable Unavailable SlezkaZakiatech Unavailable Unavailable Slezka Vojtech Unavailable Unavailable Slezka Vojtech Unavailable Unavailable SlezkaArjunjtech Unavailable Unavailable SlezkaArjunjtech Unavailable Unavailable SlezkaArjunjtech Unavailable Unavailable Slezka Vojtech Unavailable Unavailable Slezka Vojtech Unavailable Unavailable Slezka Vojtech Unavailable Unavailable Slezka Vojtech Unavailable Unavailable Slezka Vojtech Unavailable Unavailable Slezka Vojtech Unavailable Unavailable Slezka Vojtech Unavailable Unavailable Slezka Vojtech Unavailable Unavailable Slezka Vojtech Unavailable Unavailable Slezka Vojtech Unavailable Unavailable Slezka Vojtech Unavailable Unavailable Slezka Vojtech Unavailable Unavailable Slezka Vojtech MD Unavailable Unavailable Slezka Vojtech Unavailable Unavailable Slezka Vojtech Unavailable Unavailable Slezka Vojtech Unavailable Unavailable Slezka Vojtech Unavailable Unavailable Slezka Vojtech Unavailable Unavailable Slezka Vojtech MD Unavailable Unavailable Slezka Vojtech Unavailable Unavailable Slezka Vojtech Unavailable Unavailable SlezkaArjunjtech Unavailable Unavailable Stover, Martell Sarah Unavailable Unavailable Stover, Martell Sarah Unavailable Unavailable Stover, Martell Sarah Unavailable Unavailable Stover, Martell Sarah Unavailable Unavailable Stover, Martell Sarah Unavailable Unavailable Stover, Martell Sarah Unavailable Unavailable Stover, Martell Sarah Unavailable Unavailable Stover, Martell Sarah Unavailable Unavailable Stover, Martell Sarah Unavailable Unavailable Stover, Martell Sarah Unavailable Unavailable Stover, Martell Sarah Unavailable Unavailable Stover, Martell Sarah Unavailable Unavailable Stover, Martell Sarah Unavailable Unavailable GREGORIO, M AYO PA Unavailable Unavailable GREGORIO, M AYO PA Unavailable Unavailable GREGORIO, M AYO PA Unavailable Unavailable GREGORIO, M AYO PA Unavailable Unavailable GREGORIO, M AYO PA Unavailable Unavailable GREGORIO, M AYO PA Unavailable Unavailable GREGORIO, M AYO PA Unavailable Unavailable GREGORIO, M AYO PA Unavailable Unavailable GREGORIO, M AYO PA Unavailable Unavailable GREGORIO, M AYO PA Unavailable Unavailable GREGORIO, M AYO PA Unavailable Unavailable GREGORIO, M AYO PA Unavailable Unavailable GREGORIO, M AYO PA Unavailable Unavailable GREGORIO, M AYO PA Unavailable Unavailable GREGORIO, M AYO PA Unavailable Unavailable GREGORIO, M AYO PA Unavailable Unavailable GREGORIO, M AYO PA Unavailable Unavailable GREGORIO, M AYO PA Unavailable Unavailable GREGORIO, M AYO PA Unavailable Unavailable GREGORIO, M AYO PA Unavailable Unavailable GREGORIO, M AYO PA Unavailable Unavailable GREGORIO, M AYO PA Unavailable Unavailable GREGORIO, M AYO PA Unavailable Unavailable GREGORIO, M AYO PA Unavailable Unavailable WELLER, SERAFIN KENTRELL RPA-C Unavailable Unavailable WELLER, SERAFIN KENTRELL RPA-C Unavailable Unavailable WELLER, SERAFIN KENTRELL RPA-C Unavailable Unavailable WELLER, SERAFIN KENTRELL RPA-C Unavailable Unavailable WELLER, SERAFIN KENTRELL RPA-C Unavailable Unavailable WELLER, SERAFIN KENTRELL RPA-C Unavailable Unavailable WELLER, SERAFIN KENTRELL RPA-C Unavailable Unavailable WELLER, SERAFIN KENTRELL RPA-C Unavailable Unavailable WELLER, SERAFIN KENTRELL RPA-C Unavailable Unavailable WELLER, SERAFIN KENTRELL RPA-C Unavailable Unavailable WELLER, SERAFIN KENTRELL RPA-C Unavailable Unavailable WELLER, SERAFIN KENTRELL RPA-C Unavailable Unavailable WELLER, SERAFIN KENTRELL RPA-C Unavailable Unavailable WELLER, SERAFIN KENTRELL RPA-C Unavailable Unavailable WELLER, SERAFIN KENTRELL RPA-C Unavailable Unavailable WELLER, SERAFIN KENTRELL RPA-C Unavailable Unavailable WELLER, SERAFIN KENTRELL RPA-C Unavailable Unavailable WELLER, SERAFIN KENTRELL RPA-C Unavailable Unavailable WELLER, SERAFIN KENTRELL RPA-C Unavailable Unavailable WELLER, SERAFIN KENTRELL RPA-C Unavailable Unavailable WELLER, SERAFIN KENTRELL RPA-C Unavailable Unavailable WELLER, SERAFIN KENTRELL RPA-C Unavailable Unavailable WELLER, SERAFIN KENTRELL RPA-C Unavailable Unavailable WELLER, SERAFIN KENTRELL RPA-C Unavailable Unavailable WELLER, SERAFIN KENTRELL RPA-C Unavailable Unavailable WELLER, SERAFIN KENTRELL RPA-C Unavailable Unavailable WELLER, SERAFIN KENTRELL RPA-C Unavailable Unavailable WELLER, SERAFIN KENTRELL RPA-C Unavailable Unavailable WELLER, SERAFIN KENTRELL RPA-C Unavailable Unavailable WELLER, SERAFIN KENTRELL RPA-C Unavailable Unavailable WELLER, SERAFIN KENTRELL RPA-C Unavailable Unavailable WELLER, SERAFIN KENTRELL RPA-C Unavailable Unavailable WELLER, SERAFIN KENTRELL RPA-C Unavailable Unavailable WELLER, SERAFIN KENTRELL RPA-C Unavailable Unavailable WELLER, SERAFIN KENTRELL RPA-C Unavailable Unavailable WELLER, SERAFIN KENTRELL RPA-C Unavailable Unavailable WELLER, SERAFIN KENTRELL RPA-C Unavailable Unavailable WELLER, SERAFIN KENTRELL RPA-C Unavailable Unavailable WELLER, SERAFIN KENTRELL RPA-C Unavailable Unavailable WELLER, SERAFIN KENTRELL RPA-C Unavailable Unavailable WELLER, SERAFIN KENTRELL RPA-C Unavailable Unavailable WELLER, SERAFIN KENTRELL RPA-C Unavailable Unavailable WELLER, SERAFIN KENTRELL RPA-C Unavailable Unavailable FRANK, R JUJU Unavailable Unavailable DANIEL, R RL Unavailable Unavailable Amie ZAVALA MD Unavailable Unavailable Amie ZAVALA MD Unavailable Unavailable Amie ZAVALA MD Unavailable Unavailable Amie ZAVALA MD Unavailable Unavailable Amie ZAVALA MD Unavailable Unavailable Amie ZAVALA MD Unavailable Unavailable Amie ZAVALA MD Unavailable Unavailable Amie ZAVALA MD Unavailable Unavailable Amie ZAVALA MD Unavailable Unavailable Amie ZAVALA MD Unavailable Unavailable Amie ZAVALA MD Unavailable Unavailable Amie ZAVALA MD Unavailable Unavailable Amie ZAVALA MD Unavailable Unavailable Amie ZAVALA MD Unavailable Unavailable Amie ZAVALA MD Unavailable Unavailable Amie ZAVALA MD Unavailable Unavailable Amie ZAVALA MD Unavailable Unavailable Amie ZAVALA MD Unavailable Unavailable Amie ZAVALA MD Unavailable Unavailable Amie ZAVALA MD Unavailable Unavailable Amie ZAVALA MD Unavailable Unavailable Amie ZAVALA MD Unavailable Unavailable Amie ZAVALA MD Unavailable Unavailable Amie ZAVALA MD Unavailable Unavailable Feola, T Sridevi PA Unavailable Unavailable Feola, T Sridevi PA Unavailable Unavailable Feola, T Sridevi PA Unavailable Unavailable Feola, T Sridevi PA Unavailable Unavailable Feola, T Sridevi PA Unavailable Unavailable Feola, T Sridevi PA Unavailable Unavailable Feola, T Sridevi PA Unavailable Unavailable Feola, T Sridevi PA Unavailable Unavailable Feola, T Sridevi PA Unavailable Unavailable Feola, T Sridevi PA Unavailable Unavailable Feola, T Sridevi PA Unavailable Unavailable Feola, T Sridevi PA Unavailable Unavailable Feola, T Sridevi PA Unavailable Unavailable Feola, T Sridevi PA Unavailable Unavailable Feola, T Sridevi PA Unavailable Unavailable Feola, T Sridevi PA Unavailable Unavailable Feola, T Sridevi PA Unavailable Unavailable Feola, T Sridevi PA Unavailable Unavailable Feola, T Sridevi PA Unavailable Unavailable Feola, T Sridevi PA Unavailable Unavailable Feola, T Sridevi PA Unavailable Unavailable Feola, T Sridevi PA Unavailable Unavailable Feola, T Sridevi PA Unavailable Unavailable Feola, T Sridevi PA Unavailable Unavailable Feola, T Sridevi PA Unavailable Unavailable Feola, T Sridevi PA Unavailable Unavailable Feola, T Sridevi PA Unavailable Unavailable Feola, T Sridevi PA Unavailable Unavailable Feola, T Sridevi PA Unavailable Unavailable Feola, T Sridevi PA Unavailable Unavailable Feola, T Sridevi PA Unavailable Unavailable Feola, T Sridevi PA Unavailable Unavailable Feola, T Sridevi PA Unavailable Unavailable Feola, T Sridevi PA Unavailable Unavailable Feola, T Sridevi PA Unavailable Unavailable Feola, T Sridevi PA Unavailable Unavailable Feola, T Sridevi PA Unavailable Unavailable Feola, T Sridevi PA Unavailable Unavailable Feola, T Sridevi PA Unavailable Unavailable Feola, T Sridevi PA Unavailable Unavailable Feola, T Sridevi PA Unavailable Unavailable Pupillo, Flaca Unavailable [phone] Elizabeth-Centner, Hilary Unavailable Unavailable Elizabeth-Centner, Hilary Unavailable Unavailable Elizabeth-Centner, Hilary Unavailable Unavailable Elizabeth-Centner, Hilary Unavailable Unavailable Elizabeth-Centner, Hilary Unavailable Unavailable Elizabeth-Centner, Hilary Unavailable Unavailable Elizabeth-Centner, Hilary Unavailable Unavailable Elizabeth-Centner, Hilary Unavailable Unavailable Elizabeth-Centner, Hilary Unavailable Unavailable Elizabeth-Centner, Hilary Unavailable Unavailable Elizabeth-Centner, Hilary Unavailable Unavailable BUSTOS, YAZMIN Unavailable Unavailable BUSTOS, YAZMIN Unavailable Unavailable BUSTOS, YAZMIN Unavailable Unavailable BUSTOS, YAZMIN Unavailable Unavailable BUSTOS, YAZMIN Unavailable Unavailable BUSTOS, YAZMIN Unavailable Unavailable BUSTOS, YAZMIN Unavailable Unavailable BUSTOS, YAZMIN Unavailable Unavailable BUSTOS, YAZMIN Unavailable Unavailable BUSTOS, YAZMIN Unavailable Unavailable BUSTOS, YAZMIN Unavailable Unavailable BUSTOS, YAZMIN Unavailable Unavailable BUSTOS, YAZMIN Unavailable Unavailable BUSTOS, YAZMIN Unavailable Unavailable BUSTOS, YAZMIN Unavailable Unavailable BUSTOS, YAZMIN Unavailable Unavailable BUSTOS, YAZMIN Unavailable Unavailable BUSTOS, YAZMIN Unavailable Unavailable BUSTOS, YAZMIN Unavailable Unavailable BUSTOS, YAZMIN Unavailable Unavailable BUSTOS, YAZMIN Unavailable Unavailable BUSTOS, YAZMIN Unavailable Unavailable BUSTOS, YAZMIN Unavailable Unavailable BUSTOS, YAZMIN Unavailable Unavailable BUSTOS, YAZMIN Unavailable Unavailable BUSTOS, YAZMIN Unavailable Unavailable BUSTOS, YAZMIN Unavailable Unavailable STROUD, G EDWARD RPA Unavailable Unavailable STROUD, G EDWARD RPA Unavailable Unavailable STROUD, G EDWARD RPA Unavailable Unavailable STROUD, G EDWARD RPA Unavailable Unavailable STROUD, G EDWARD RPA Unavailable Unavailable STROUD, G EDWARD RPA Unavailable Unavailable STROUD, G EDWARD RPA Unavailable Unavailable STROUD, G EDWARD RPA Unavailable Unavailable STROUD, G EDWARD RPA Unavailable Unavailable STROUD, G EDWARD RPA Unavailable Unavailable STROUD, G EDWARD RPA Unavailable Unavailable STROUD, G EDWARD RPA Unavailable Unavailable STROUD, G EDWARD RPA Unavailable Unavailable STROUD, G EDWARD RPA Unavailable Unavailable STROUD, G EDWARD RPA Unavailable Unavailable STROUD, G EDWARD RPA Unavailable Unavailable STROUD, G EDWARD RPA Unavailable Unavailable STROUD, G EDWARD RPA Unavailable Unavailable STROUD, G EDWARD RPA Unavailable Unavailable STROUD, G EDWARD RPA Unavailable Unavailable STROUD, G EDWARD RPA Unavailable Unavailable STROUD, G EDWARD RPA Unavailable Unavailable STROUD, G EDWARD RPA Unavailable Unavailable STROUD, G EDWARD RPA Unavailable Unavailable STROUD, G EDWARD RPA Unavailable Unavailable STROUD, G EDWARD RPA Unavailable Unavailable STROUD, G EDWARD RPA Unavailable Unavailable STROUD, G EDWARD RPA Unavailable Unavailable STROUD, G EDWARD RPA Unavailable Unavailable STROUD, G EDWARD RPA Unavailable Unavailable STROUD, G EDWARD RPA Unavailable Unavailable STROUD, G EDWARD RPA Unavailable Unavailable STROUD, G EDWARD RPA Unavailable Unavailable STROUD, G EDWARD RPA Unavailable Unavailable STROUD, G EDWARD RPA Unavailable Unavailable STROUD, G EDWARD RPA Unavailable Unavailable STROUD, G EDWARD RPA Unavailable Unavailable DRAZEK, I JAIME PA Unavailable Unavailable DRAZEK, I JAIME PA Unavailable Unavailable DRAZEK, I JAIME PA Unavailable Unavailable DRAZEK, I JAIME PA Unavailable Unavailable DRAZEK, I JAIME PA Unavailable Unavailable DRAZEK, I JAIME PA Unavailable Unavailable DRAZEK, I JAIME PA Unavailable Unavailable DRAZEK, I JAIME PA Unavailable Unavailable DRAZEK, I JAIME PA Unavailable Unavailable DRAZEK, I JAIME PA Unavailable Unavailable DRAZEK, I JAIME PA Unavailable Unavailable DRAZEK, I JAIME PA Unavailable Unavailable DRAZEK, I JAIME PA Unavailable Unavailable DRAZEK, I JAIME PA Unavailable Unavailable DRAZEK, I JAIME PA Unavailable Unavailable DRAZEK, I JAIME PA Unavailable Unavailable DRAZEK, I JAIME PA Unavailable Unavailable DRAZEK, I JAIME PA Unavailable Unavailable DRAZEK, I JAIME PA Unavailable Unavailable DRAZEK, I JAIME PA Unavailable Unavailable DRAZEK, I JAIME PA Unavailable Unavailable DRAZEK, I JAIME PA Unavailable Unavailable DRAZEK, I JAIME PA Unavailable Unavailable DRAZEK, I JAIME PA Unavailable Unavailable DRAZEK, I JAIME PA Unavailable Unavailable DRAZEK, I JAIME PA Unavailable Unavailable DRAZEK, I JAIME PA Unavailable Unavailable DRAZEK, I JAIME PA Unavailable Unavailable DRAZEK, I JAIME PA Unavailable Unavailable DRAZEK, I JAIME PA Unavailable Unavailable BUSTOS, YAZMIN Unavailable Unavailable BUSTOS, YAZMIN Unavailable Unavailable BUSTOS, YAZMIN Unavailable Unavailable BUSTOS, YAZMIN Unavailable Unavailable BUSTOS, YAZMIN Unavailable Unavailable BUSTOS, YAZMIN Unavailable Unavailable BUSTOS, YAZMIN Unavailable Unavailable BUSTOS, YAZMIN Unavailable Unavailable BUSTOS, YAZMIN Unavailable Unavailable BUSTOS, YAZMIN Unavailable Unavailable BUSTOS, YAZMIN Unavailable Unavailable BUSTOS, YAZMIN Unavailable Unavailable BUSTOS, YAZMIN Unavailable Unavailable BUSTOS, YAZMIN Unavailable Unavailable BUSTOS, YAZMIN Unavailable Unavailable BUSTOS, YAZMIN Unavailable Unavailable BUSTOS, YAZMIN Unavailable Unavailable BUSTOS, YAZMIN Unavailable Unavailable BUSTOS, YAZMIN Unavailable Unavailable BUSTOS, YAZMIN Unavailable Unavailable BUSTOS, YAZMIN Unavailable Unavailable BUSTOS, YAZMIN Unavailable Unavailable BUSTOS, YAZMIN Unavailable Unavailable BUSTOS, YAZMIN Unavailable Unavailable BUSTOS, YAZMIN Unavailable Unavailable BUSTOS, YAZMIN Unavailable Unavailable DAVID BUSTOSSSICA Unavailable Unavailable HORACIO, E JOSETTE MADSEN Unavailable Unavailable HORACIO, E JOSETTE MADSEN Unavailable Unavailable HORACIO, E JOSETTE MADSEN Unavailable Unavailable HORACIO, E JOSETTE MADSEN Unavailable Unavailable HORACIO, E JOSETTE MADSEN Unavailable Unavailable HORACIO, E JOSETTE MADSEN Unavailable Unavailable HORACIO, E JOSETTE MADSEN Unavailable Unavailable HORACIO, E JOSETTE MADSEN Unavailable Unavailable HORACIO, E JOSETTE MADSEN Unavailable Unavailable HORACIO, E JOSETTE MADSEN Unavailable Unavailable HORACIO, E JOSETTE MADSEN Unavailable Unavailable HORACIO, E JOSETTE MADSEN Unavailable Unavailable HORACIO, E JOSETTE MADSEN Unavailable Unavailable HORACIO, E JOSETTE MADSEN Unavailable Unavailable HORACIO, E JOSETTE MADSEN Unavailable Unavailable HORACIO, E JOSETTE MADSEN Unavailable Unavailable HORACIO, E JOSETTE MADSEN Unavailable Unavailable HORACIO, E JOSETTE MADSEN Unavailable Unavailable HORACIO, E JOSETTE MADSEN Unavailable Unavailable HORACIO, E JOSETTE MADSEN Unavailable Unavailable HORACIO, E JOSETTE MADSEN Unavailable Unavailable HORACIO, E JOSETTE MADSEN Unavailable Unavailable HORACIO, E JOSETTE MADSEN Unavailable Unavailable HORACIO, E JOSETTE MADSEN Unavailable Unavailable HORACIO, E JOSETTE MADSEN Unavailable Unavailable HORACIO, E JOSETTE MADSEN Unavailable Unavailable HORACIO, E JOSETTE MADSEN Unavailable Unavailable HORACIO, E JOSETTE MADSEN Unavailable Unavailable HORACIO, E JOSETTE MADSEN Unavailable Unavailable HORACIO, E JOSETTE MADSEN Unavailable Unavailable HORACIO, E JOSETTE MADSEN Unavailable Unavailable HORACIO, E JOSETTE MADSEN Unavailable Unavailable HORACIO, E JOSETTE MADSEN Unavailable Unavailable HORACIO, E JOSETTE MADSEN Unavailable Unavailable HORACIO, E JOSETTE MADSEN Unavailable Unavailable HORACIO, E JOSETTE MADSEN Unavailable Unavailable HORACIO, E JOSETTE MADSEN Unavailable Unavailable HORACIO, E JOSETTE MADSEN Unavailable Unavailable HORACIO, E JOSETTE MADSEN Unavailable Unavailable HORACIO, E JOSETTE MADSEN Unavailable Unavailable HORACIO, E JOSETTE MADSEN Unavailable Unavailable HORACIO, E JOSETTE MADSEN Unavailable Unavailable HORACIO, E JOSETTE MADSEN Unavailable Unavailable HORCAIO, E JOSETTE MADSEN Unavailable Unavailable HORACIO, E JOSETTE MADSEN Unavailable Unavailable HORACIO, E JOSETTE MADSEN Unavailable Unavailable HORACIO, E JOSETTE MADSEN Unavailable Unavailable HORACIO, E JOSETTE MADSEN Unavailable Unavailable HORACIO, E JOSETTE MADSEN Unavailable Unavailable HORACIO, Stacia FINCH MD Unavailable Unavailable HORACIO, E JOSETTE MADSEN Unavailable Unavailable HORACIO, E JOSETTE MADSEN Unavailable Unavailable HORACIO, E JOSETTE MADSEN Unavailable Unavailable HORACIO, E JOSETTE MADSEN Unavailable Unavailable HORACIO, E JOSETTE MADSEN Unavailable Unavailable HORACIO, E JOSETTE MADSEN Unavailable Unavailable HORACIO, E JOSETTE MADSEN Unavailable Unavailable HORACIO, E JOSETTE MADSEN Unavailable Unavailable HORACIO, E JOSETTE MADSEN Unavailable Unavailable HORACIO, E JOSETTE MADSEN Unavailable Unavailable HORACIO, E JOSETTE MADSEN Unavailable Unavailable HORACIO, E JOSETTE MADSEN Unavailable Unavailable HORACIO, E JOSETTE MADSEN Unavailable Unavailable HORACIO, E JOSETTE MADSEN Unavailable Unavailable HORACIO, E JOSETTE MADSEN Unavailable Unavailable HORACIO, E JOSETTE MADSEN Unavailable Unavailable HORACIO, E JOSETTE MADSEN Unavailable Unavailable HORACIO, E JOSETTE MADSEN Unavailable Unavailable HORACIO, E JOSETTE MADSEN Unavailable Unavailable HORACIO, E JOSETTE MADSEN Unavailable Unavailable HORACIO, E JOSETTE MADSEN Unavailable Unavailable HORACIO, E JOSETTE MADSEN Unavailable Unavailable HORACIO, Stacia FINCH MD Unavailable Unavailable HORACIO, Stacia FINCH MD Unavailable Unavailable HORACIO, E JOSETTE MADSEN Unavailable Unavailable HORACIO, Stacia FINCH MD Unavailable Unavailable HORACIO, E JOSETTE MADSEN Unavailable Unavailable HORACIO, Stacia FINCH MD Unavailable Unavailable HORACIO, E JOSETTE MADSEN Unavailable Unavailable HORACIO, Stacia FINCH MD Unavailable Unavailable HORACIO, E JOSETTE MADSEN Unavailable Unavailable HORACIO, Stacia FINCH MD Unavailable Unavailable HORACIO, Stacia FINCH MD Unavailable Unavailable Messi ArevaloC Unavailable Unavailable Messi ArevaloC Unavailable Unavailable Messi ArevaloC Unavailable Unavailable Messi Arevalo PA-C Unavailable Unavailable Messi ArevaloC Unavailable Unavailable Messi ArevaloC Unavailable Unavailable Arevalo, M Christopher PA-C Unavailable Unavailable Arevalo, M Christopher PA-C Unavailable Unavailable Arevalo, M Christopher PA-C Unavailable Unavailable Arevalo, M Christopher PA-C Unavailable Unavailable Arevalo, M Christopher PA-C Unavailable Unavailable Arevalo, M Christopher PA-C Unavailable Unavailable Arevalo, M Christopher PA-C Unavailable Unavailable Arevalo, M Christopher PA-C Unavailable Unavailable Arevalo, M Christopher PA-C Unavailable Unavailable Arevalo, M Christopher PA-C Unavailable Unavailable Arevalo, M Christopher PA-C Unavailable Unavailable Arevalo, M Christopher PA-C Unavailable Unavailable Arevalo, M Christopher PA-C Unavailable Unavailable Arevalo, M Christopher PA-C Unavailable Unavailable Arevalo, M Christopher PA-C Unavailable Unavailable Arevalo, M Christopher PA-C Unavailable Unavailable Arevalo, M Christopher PA-C Unavailable Unavailable Arevalo, M Christopher PA-C Unavailable Unavailable Arevalo, M Christopher PA-C Unavailable Unavailable Arevalo, M Christopher PA-C Unavailable Unavailable Re-disclosure Warning The records that you are about to access may contain information from federally-assisted alcohol or drug abuse programs. If such information is present, then the following federally mandated warning applies: This information has been disclosed to you from records protected by federal confidentiality rules (42 CFR part 2). The federal rules prohibit you from making any further disclosure of this information unless further disclosure is expressly permitted by the written consent of the person to whom it pertains or as otherwise permitted by 42 CFR part 2. A general authorization for the release of medical or other information is NOT sufficient for this purpose. The Federal rules restrict any use of the information to criminally investigate or prosecute any alcohol or drug abuse patient.The records that you are about to access may contain highly sensitive health information, the redisclosure of which is protected by Article 27-F of the [facility] [place] Public Health law. If you continue you may have access to information: Regarding HIV / AIDS; Provided by facilities licensed or operated by the [facility] [place] Office of Mental Health; or Provided by the [facility] [place] Office for People With Developmental Disabilities. If such information is present, then the following [facility] [place] mandated warning applies: This information has been disclosed to you from confidential records which are protected by state law. State law prohibits you from making any further disclosure of this information without the specific written consent of the person to whom it pertains, or as otherwise permitted by law. Any unauthorized further disclosure in violation of state law may result in a fine or long-term sentence or both. A general authorization for the release of medical or other information is NOT sufficient authorization for further disc losure. Allergies and Adverse Reactions Type Description Substance Reaction Status Data Source(s ) Allergy to substance Severe Trulicity Diarrhea ATHE NA ([facility]) Allergy to substance Severe Trulicity Diarrhea ATHE NA ([facility]) Propensity to adverse reactions PENICILLINS Penicillin [facility] Propensity to adverse reactions PENICILLINS Penicillins Ac tive [facility] Family History Family Member Name Family Member Gender Family Member Status Date o f Status Description Data Source(s) Unknown Male Problem MEDENT ([facility]) Encounters Encounter Providers Location Date Indications Data Source(s ) Outpatient Attender: JOSETTE LEONARD MD 02/22/2021 12:00 :00 AM [facility] Kentrell Weller RPA-C: [address], [place] [address], Ph. Attender: KENTRELL [facility] Medical 11/19/2020 12:00:00 AM EDT ETHAN ([facility]) Kentrell Weller RPA-C: [address], [place] [address], Ph. Attender: KENTRELL ROSEN [facility] Medical 11/12/2020 12:00:00 AM EDT ETHAN ([facility]) Kentrell Weller RPA-C: [address], [place] [address], Ph. Attender: KENTRELL ROSEN [facility] Medical 11/12/2020 12:00:00 AM EDT [facility] ([facility]) Outpatient Attender: Sridevi OSUNA 021 03:16:29 PM EDT - 11/01/2020 04:01:52 PM EDT DocuTap ([facility] ) Outpatient Attender: MELVIN OSUNA 10/11/2020 12:00:[address] [facility] Outpatient Attender: Easton Mcclure: ROXANNA ZAVALA MD 10/01/2020 02:49:57 PM EDT - 10/01/2020 03:52:48 PM EDT [facility] ([facility]) Kentrell Weller RPA-C: [address], [place] [address], Ph. Attender: KENTRELL ROSEN [facility] Medical 09/07/2020 12:00:00 AM EDT ETHAN ([facility]) Kentrell Weller RPA-C: [address], [place] [address], Ph. Attender: KENTRELL ROSEN [facility] Medical 09/07/2020 12:00:00 AM EDT ETHAN ([facility]) Kentrell Weller RPA-C: [address], [place] [address], Ph. Attender: KENTRELL ROSEN [facility] Medical 09/07/2020 12:00:00 AM EDT ETHAN ([facility]) Outpatient Attender: Masoud Luo MDReferrer: YAZMIN HUTCHINSELVIE-SJP.ELVIE 08/26/2020 12:00:00 AM EDT - 08/30/2020 09:13:46 AM EDT [facility] OFFICE OUTPATIENT VISIT 15 MINUTES Attender: JAIME OSUNA Phys ical Therapy 07/22/2020 09:40:00 AM EDT MEDENT ([facility]) Outpatient Attender: JUJU FRANK 07/20/2020 12:00:[address] [facility] Flaca Rosario, ASSOCIATE FIN[employer]CIAL PL[employer]NER: [address], [place] [address], Ph. Attender: Flaca Rosario [facility] Medical 07/19/2020 12:00:00 AM EDT [place] ([facility]) Flaca Rosario, ASSOCIATE FINANCIAL PLANNER: [address], [place] [address], Ph. Attender: Flaca Rosario [facility] Medical 07/19/2020 12:00:00 AM EDT [place] ([facility]) Flaca Rosario ASSOCIATE FIN[employer]CIAL PL[employer]NER: [address], [place] [address], Ph. Attender: Flaca Rosario [facility] Medical 07/19/2020 12:00:00 AM EDT [facility] ([facility]) Flaca Rosario, ASSOCIATE FINANCIAL PLANNER: [address], [place] [address], Ph. Attender: Flaca Rosario [facility] Medical 07/19/2020 12:00:00 AM EDT [facility] ([facility]) Outpatient Referrer: AMANDA ZAVALA 07/08/2020 12:00:[address] [facility] Outpatient Attender: JOSETTE LEONARD MDAttender: RL Rocharer: JOSETTE LEONARD MD 06/30/2020 12:00:00 AM EDT - 07/01/2020 12:00:00 AM EDT Other specified disorders of adrenal gland [facility] Other specified disorders of adrenal gla nd Outpatient Attender: JOSETTE LEONARD MDAttender: RL Rocharer: JOSETTE LEONARD MD 06/29/2020 12:00:00 AM EDT - 06/30/2020 12:00:00 AM EDT Type 2 diabetes mellitus with other specified complication [facility] Type 2 diabetes mellitus with other spec ified complication Outpatient Attender: JOSETTE LEONARD MDAttender: RL Solanoferrer: JOSETTE LEONARD MD 06/28/2020 12:00:00 AM EDT - 06/29/2020 12:00:00 AM EDT Type 2 diabetes mellitus with other specified complication [facility] Type 2 diabetes mellitus with other spec ified complication Outpatient Attender: JOSETTE LEONARD MDReferrer: YAZMIN BUSTOS [id number] 06/25/2020 12:00:00 AM EDT - 06/25/2020 04:18:58 PM EDT Nontoxic single thyroid nodule [facility] Nontoxic single thyroid nodule Yazmin Bustos RPA-C: [address], [place] [address], Ph. Attender: YAZMIN BUSTOS [facility] Medical 06/23/2020 12:00:00 AM EDT [facility]) ARUNA AlcarazC: [address], [place] [address], Ph. Attender: YAZMIN BUSTOS [facility] Medical 06/23/2020 12:00:00 AM EDT [place] ([facility]) ARUNA AlcarazC: [address], [place] [address], Ph. Attender: YAZMIN BUSTOS [facility] Medical 06/23/2020 12:00:00 AM EDT [place] ([facility]) Yazmin Bustos RPA-C: [address], [place] [address], Ph. Attender: YAZMIN BUSTOS [facility] 06/23/2020 12:00:00 AM EDT ETHAN ([facility]) Yazmin Bustos RPA-C: [address], [place] [address], Ph. Attender: YAZMIN BUSTOS [facility] Medical 06/23/2020 12:00:00 AM EDT ETHAN ([facility]) Yazmin Bustos RPA-C: [address], [place] [address], Ph. Attender: YAZMIN BUSTOS [facility] Medical 06/21/2020 12:00:00 AM EDT [place] ([facility]) Yazmin Bustos RPA-C: [address], [place] [address], Ph. Attender: YAZMIN BUSTOS [facility] 06/21/2020 12:00:00 AM EDT ETHAN ([facility]) ARUNA AlcarazC: [address], [place] [address], Ph. Attender: YAZMIN BUSTOS [facility] 06/21/2020 12:00:00 AM EDT [place] ([facility]) Yazmin Bustos RPA-C: [address], [place] [address], Ph. Attender: YAZMIN BUSTOS [facility] 06/21/2020 12:00:00 AM EDT [place] ([facility]) Yazmin Bustos RPA-C: [address], [place] [address], Ph. Attender: YAZMIN JUÁREZBINS [facility] 06/21/2020 12:00:00 AM EDT ETH[facility] ([facility]) Yazmin Juli RPA-C: [address], [place] [address], Ph. Attender: YAZMIN JUÁREZBINS [facility] 06/21/2020 12:00:00 AM EDT ETHAN ([facility]) Yazmindarcie Bustos RPA-C: [address], [place] [address], Ph. Attender: YAZMIN JULI [facility] 06/21/2020 12:00:00 AM EDT ETHAN ([facility]) Tati Scott MD: [address], [place] [address], Ph. Attender: Tati Scott [facility] 06/15/2020 12:00:00 AM EDT ETHAN ([facility]) Tati Scott MD: [address], [place] [address], Ph. Attender: Tati Scott [facility] 06/15/2020 12:00:00 AM EDT ETHAN ([facility]) Tati Scott MD: [address], [place] [address], Ph. Attender: Tati Scott [facility] 06/15/2020 12:00:00 AM EDT ETHAN ([facility]) Tati Scott MD: [address], [place] [address], Ph. Attender: Tati Scott [facility] Medical 06/15/2020 12:00:00 AM EDT ETHAN ([facility]) Tati Scott MD: [address], [place] [address], Ph. Attender: Tati Scott [facility] Medical 06/15/2020 12:00:00 AM EDT ETHAN ([facility]) Tati Scott MD: [address], [place] [address], Ph. Attender: Tati Scott [facility] Medical 06/15/2020 12:00:00 AM EDT ETH[facility] ([facility]) Tati Scott MD: [address], [place] [address], Ph. Attender: Tati Scott [facility] Medical 06/15/2020 12:00:00 AM EDT ETHAN ([facility]) Tati Scott MD: [address], [place] [address], Ph. Attender: Tati Scott [facility] Medical 06/15/2020 12:00:00 AM EDT ETHAN ([facility]) GABRIEL LeónC: [address], [place] [address], Ph. Attender: Sarah Stover [facility] Medical 06/09/2020 12:00:00 AM EDT ETHAN ([facility]) GABRIEL LeónC: [address], [place] [address], Ph. Attender: Sarah Stover [facility] Medical 06/09/2020 12:00:00 AM EDT ETHAN ([facility]) GABRIEL LeónC: [address], [place] [address], Ph. Attender: Sarah Stover [facility] Medical 06/09/2020 12:00:00 AM EDT ETHAN ([facility]) GABRIEL LeónC: [address], [place] [address], Ph. Attender: Sarah Stover [facility] Medical 06/09/2020 12:00:00 AM EDT ETHAN ([facility]) GABRIEL LeónC: [address], [place] [address], Ph. Attender: Sarah Stover [facility] Medical 06/09/2020 12:00:00 AM EDT ETHAN ([facility]) GABRIEL LeónC: [address], [place] [address], Ph. Attender: Sarah Stover [facility] Medical 06/09/2020 12:00:00 AM EDT ETHAN ([facility]) GABRIEL LeónC: [address], [place] [address], Ph. Attender: Sarah Stover [facility] Medical 06/09/2020 12:00:00 AM EDT ETHAN ([facility]) GABRIEL LeónC: [address], [place] [address], Ph. Attender: Sarah Stover [facility] Medical 06/09/2020 12:00:00 AM EDT ETHAN ([facility]) LUZ ELENA León-C: [address], [place], [place] [address], Ph. Attender: Sarah Stover [facility] Medical 06/09/2020 12:00:00 AM EDT ETHAN ([facility]) Outpatient Attender: KEYONA STROUD [facility] 05/25 10:58:37 AM EDT - 05/25/2020 11:35:53 AM EDT DocuTap ([facility] ) ARUNA AlcarazC: [address], [place] [address], Ph. Attender: YAZMIN BUSTOS [facility] Medical 05/14/2020 12:00:00 AM EST ETHAN ([facility]) ARUNA AlcarazC: [address], [place] [address], Ph. Attender: YAZMIN BUSTOS [facility] Medical 05/14/2020 12:00:00 AM EST ETHAN ([facility]) ARUNA AlcarazC: [address], [place] [address], Ph. Attender: YAZMIN BUSTOS [facility] Medical 05/14/2020 12:00:00 AM EST ETHAN ([facility]) ARUNA AlcarazC: [address], [place] [address], Ph. Attender: YAZMIN BUSTOS [facility] Medical 05/14/2020 12:00:00 AM EST ETHAN ([facility]) Yazmin Bustos RPA-C: [address], [place] [address], Ph. Attender: YAZMIN BUSTOS [facility] 05/14/2020 12:00:00 AM EST ETHAN ([facility]) Yazmin Bustos RPA-C: [address], [place] [address], Ph. Attender: YAZMIN BUSTOS [facility] 05/14/2020 12:00:00 AM EST ETH[facility] ([facility]) Yazmin Bustos RPA-C: [address], [place] [address], Ph. Attender: YAZMIN BUSTOS [facility] 05/14/2020 12:00:00 AM EST ETH[facility] ([facility]) Yazmin Bustos RPA-C: [address], [place] [address], Ph. Attender: YAZMIN BUSTOS [facility] 05/14/2020 12:00:00 AM EST ETHAN ([facility]) Yazmin Bustos RPA-C: [address], [place] [address], Ph. Attender: YAZMIN BUSTOS [facility] 05/14/2020 12:00:00 AM EST ETHAN ([facility]) Yazmin Bustos RPA-C: [address], [place] [address], Ph. Attender: YAZMIN BUSTOS [facility] 05/14/2020 12:00:00 AM EST [facility] ([facility]) Hilary Johnson RPA-C: [address], [place] [address], Ph. Attender: Hilary Garces [facility] Medical 05/12/2020 12:00:00 AM EST [facility] ([facility]) Hilary Johnson RPA-C: [address], [place] [address], Ph. Attender: Hilary Garces [facility] Medical 05/12/2020 12:00:00 AM EST ETH[facility] ([facility]) Hilary Johnson RPA-C: [address], [place] [address], Ph. Attender: Hilary Garces [facility] Medical 05/12/2020 12:00:00 AM EST ETHAN ([facility]) ARUNA AgeeC: [address], [place] [address], Ph. Attender: Hilary Garces [facility] Medical 05/12/2020 12:00:00 AM EST ETHAN ([facility]) Hilary Johnson RPA-C: [address], [place] [address], Ph. Attender: Hilary Garces [facility] Medical 05/12/2020 12:00:00 AM EST ETHAN ([facility]) Hilary Johnson RPA-C: [address], [place] [address], Ph. Attender: Hilary Garces [facility] Medical 05/12/2020 12:00:00 AM EST ETH[facility] ([facility]) ARUNA AgeeC: [address], [place] [address], Ph. Attender: Hilary Garces [facility] Medical 05/12/2020 12:00:00 AM EST ETHAN ([facility]) ARUNA AgeeC: [address], [place] [address], Ph. [facility]: [facility] 05/12/2020 12:00:00 AM EST ETHAN ([facility]) ARUNA AgeeC: [address], [place] [address], Ph. Attender: Hilary Garces [facility] Medical 05/12/2020 12:00:00 AM EST ETHAN ([facility]) ARUNA AgeeC: [address], [place] [address], Ph. Attender: Hilary Garces [facility] Medical 05/12/2020 12:00:00 AM EST ETHAN ([facility]) ARUNA AgeeC: [address], [place] [address], Ph. [facility]: [facility] 05/12/2020 12:00:00 AM EST ETHAN ([facility]) Outpatient Attender: AYO OSUNA Physical Therapy 04/12 09:15:00 AM EST MEDENT ([facility]) FOREST GrovesC: [address], [place] [address], Ph. Attender: Fatimah OSUNA [facility] Medical 04/29/2020 12:00:00 AM EST ETHAN ([facility]) Fatimah Cavazos PA-C: [address], [place] [address], Ph. Attender: Fatimah OSUNA [facility] Medical 04/29/2020 12:00:00 AM EST ETHAN ([facility]) Fatimah Cavazos PA-C: [address], [place] [address], Ph. Attender: Fatimah OSUNA [facility] Medical 04/29/2020 12:00:00 AM EST ETHAN ([facility]) Fatimah Cavazos PA-C: [address], [place] [address], Ph. Attender: Fatimah OSUNA [facility] Medical 04/29/2020 12:00:00 AM EST ETHAN ([facility]) Fatimah Cavazos PA-C: [address], [place] [address], Ph. Attender: Fatimah OSUNA [facility] Medical 04/29/2020 12:00:00 AM EST ETHAN ([facility]) Fatimah Cavazos PA-C: [address], [place] [address], Ph. Attender: Fatimah OSUNA [facility] Medical 04/29/2020 12:00:00 AM EST ETHAN ([facility]) FOREST GrovesC: [address], [place] [address], Ph. Attender: Fatimah OSUNA [facility] Medical 04/29/2020 12:00:00 AM EST ETHAN ([facility]) Fatimah Cavazos PA-C: [address], [place] [address], Ph. Attender: Fatimah OSUNA [facility] Medical 04/29/2020 12:00:00 AM EST [facility]AN ([facility]) Fatimah Cavazos PA-C: [address], [place] [address], Ph. Attender: Fatimah [facility] Medical 04/29/2020 12:00:00 AM EST ETHAN ([facility]) Fatimah Cavazos PA-C: [address], [place] [address], Ph. Attender: Fatimah [facility]NA [facility] Medical 04/29/2020 12:00:00 AM EST ETHAN ([facility]) Fatimah Cavazos PA-C: [address], [place] [address], Ph. Attender: Fatimah OSUNA [facility] Medical 04/29/2020 12:00:00 AM EST ETHAN ([facility]) Fatimah Cavazos PA-C: [address], [place] [address], Ph. Attender: Fatimah [facility] Medical 04/29/2020 12:00:00 AM EST ETHAN ([facility]) Flaca Rosario, ASSOCIATE FINANCIAL PLANNER: [address], [place] [address], Ph. Attender: Flaca Rosario [facility] Medical 03/29/2020 12:00:00 AM EST ETHAN ([facility]) Flaca Rosario, ASSOCIATE FINANCIAL PLANNER: [address], [place] [address], Ph. Attender: Flaca Rosario [facility] Medical 03/29/2020 12:00:00 AM EST ETHAN ([facility]) Flaca Rosario, ASSOCIATE FINANCIAL PLANNER: [address], [place] [address], Ph. Attender: Flaca Rosario [facility] Medical 03/29/2020 12:00:00 AM EST ETHAN ([facility]) Flaca Rosario, ASSOCIATE FINANCIAL PLANNER: [address], [place] [address], Ph. Attender: Flaca Rosario [facility] Medical 03/29/2020 12:00:00 AM EST ETHAN ([facility]) Flaca Rosario, ASSOCIATE FINANCIAL PLANNER: [address], [place] [address], Ph. Attender: Flaca Rosario [facility] Medical 03/29/2020 12:00:00 AM EST ETHAN ([facility]) Flaca Rosario, ASSOCIATE FINANCIAL PLANNER: [address], [place] [address], Ph. Attender: Flaca Rosario [facility] Medical 03/29/2020 12:00:00 AM EST ETHAN ([facility]) Flaca Rosario, ASSOCIATE FINANCIAL PLANNER: [address], [place] [address], Ph. Attender: Flaca Rosario [facility] Medical 03/29/2020 12:00:00 AM EST ETHAN ([facility]) Flaca Rosario, ASSOCIATE FINANCIAL PLANNER: [address], [place] [address], Ph. Attender: Flaca Rosario [facility] Medical 03/29/2020 12:00:00 AM EST ETHAN ([facility]) Flaca Rosario, ASSOCIATE FINANCIAL PLANNER: [address], [place] [address], Ph. Attender: Flaca Rosario [facility] Medical 03/29/2020 12:00:00 AM EST ETHAN ([facility]) Flaca Rosario, ASSOCIATE FINANCIAL PLANNER: [address], [place] [address], Ph. Attender: Flaca Rosario [facility] Medical 03/29/2020 12:00:00 AM EST ETHAN ([facility]) Flaca Rosario, ASSOCIATE FINANCIAL PLANNER: [address], [place] [address], Ph. Attender: Flaca Rosario [facility] Medical 03/29/2020 12:00:00 AM EST ETHAN ([facility]) Flaca Rosario, ASSOCIATE FINANCIAL PLANNER: [address], [place] [address], Ph. Attender: Flaca Rosario [facility] Medical 03/29/2020 12:00:00 AM EST ETHAN ([facility]) Flaca Rosario, ASSOCIATE FINANCIAL PLANNER: [address], [place] [address], Ph. Attender: Flaca Rosario [facility] Medical 03/29/2020 12:00:00 AM EST ETHAN ([facility]) Outpatient Attender: AYO [facility] 03/12 08:30:00 AM EST MEDENT ([facility]) ARUNA AlcarazC: [address], [place] [address], Ph. Attender: YAZMIN BUSTOS [facility] Medical 03/19/2020 12:00:00 AM EST ETHAN ([facility]) ARUNA AlcarazC: [address], [place] [address], Ph. Attender: YAZMIN BUSTOS [facility] Medical 03/19/2020 12:00:00 AM EST ETHAN ([facility]) ARUNA AlcarazC: [address], [place] [address], Ph. Attender: YAZMIN BUSTOS [facility] Medical 03/19/2020 12:00:00 AM EST ETHAN ([facility]) ARUNA AlcarazC: [address], [place] [address], Ph. Attender: YAZMIN BUSTOS [facility] Medical 03/19/2020 12:00:00 AM EST ETHAN ([facility]) Yazmin Bustos, RPA-C: [address], [place] [address], Ph. Attender: YAZMIN BUSTOS [facility] Medical 03/19/2020 12:00:00 AM EST ETHAN ([facility]) Yazmin Bustos RPA-C: [address], [place] [address], Ph. Attender: YAZMIN BUSTOS [facility] Medical 03/19/2020 12:00:00 AM EST ETHAN ([facility]) Yazmin Bustos RPA-C: [address], [place] [address], Ph. Attender: YAZMIN BUSTOS [facility] Medical 03/19/2020 12:00:00 AM EST ETHAN ([facility]) Yazmin Bustos RPA-C: [address], [place] [address], Ph. Attender: YAZMIN BUSTOS [facility] Medical 03/19/2020 12:00:00 AM EST ETHAN ([facility]) Yazmin Bustos RPA-C: [address], [place] [address], Ph. Attender: YAZMIN BUSTOS [facility] Medical 03/19/2020 12:00:00 AM EST ETHAN ([facility]) Yazmin Bustos RPA-C: [address], [place] [address], Ph. Attender: YAZMIN BUSTOS [facility] Medical 03/19/2020 12:00:00 AM EST ETHAN ([facility]) Yazmin Bustos RPA-C: [address], [place] [address], Ph. Attender: YAZMIN BUSTOS [facility] Medical 03/19/2020 12:00:00 AM EST ETHAN ([facility]) Yazmin Bustos RPA-C: [address], [place] [address], Ph. Attender: YAZMIN BUSTOS [facility] Medical 03/19/2020 12:00:00 AM EST ETHAN ([facility]) Yazmin Bustos RPA-C: [address], [place] [address], Ph. Attender: YAZMIN BUSTOS [facility] Medical 03/19/2020 12:00:00 AM EST ETHAN ([facility]) ARUNA AlcarazC: [address], [place] [address], Ph. Attender: YAZMIN BUSTOS [facility] Medical 03/19/2020 12:00:00 AM EST ETHAN ([facility]) ARUNA SteinC: [address], [place] [address], Ph. Attender: KENTRELL ROSEN [facility] Medical 02/26/2020 12:00:00 AM EST ETHAN ([facility]) ARUNA SteinC: [address], [place] [address], Ph. Attender: KENTRELL VALDOVINOSC [facility] Medical 02/26/2020 12:00:00 AM EST ETHAN ([facility]) Kentrell Weller RPA-C: [address], [place] [address], Ph. Attender: KENTRELL WELLER RPA-C [facility] Medical 02/26/2020 12:00:00 AM EST ETHAN ([facility]) Kentrell Weller RPA-C: [address], [place] [address], Ph. Attender: KENTRELL WELLER RPA-C [facility] Medical 02/26/2020 12:00:00 AM EST ETHAN ([facility]) Kentrell Weller RPA-C: [address], [place] [address], Ph. Attender: KENTRELL WELLER RPA-C [facility] Medical 02/26/2020 12:00:00 AM EST ETHAN ([facility]) Kentrell Weller RPA-C: [address], [place] [address], Ph. Attender: KENTRELL WELLER RPA-C [facility] Medical 02/26/2020 12:00:00 AM EST ETHAN ([facility]) Kentrell Weller RPA-C: [address], [place] [address], Ph. Attender: KENTRELL WELLER RPA-C [facility] Medical 02/26/2020 12:00:00 AM EST ETHAN ([facility]) Kentrell Weller RPA-C: [address], [place] [address], Ph. Attender: KENTRELL WELLER RPA-C [facility] Medical 02/26/2020 12:00:00 AM EST ETHAN ([facility]) Kentrell Weller, RPA-C: [address], [place] [address], Ph. Attender: KENTRELL WELLER RPA-C [facility] Medical 02/26/2020 12:00:00 AM EST ETHAN ([facility]) Kentrell Weller, RPA-C: [address], [place] [address], Ph. Attender: KENTRELL WELLER RPA-C [facility] Medical 02/26/2020 12:00:00 AM EST ETHAN ([facility]) Kentrell Weller RPA-C: [address], [place] [address], Ph. Attender: KENTRELL WELLER RPA-C [facility] Medical 02/26/2020 12:00:00 AM EST ETHAN ([facility]) Kentrell Weller, RPA-C: [address], [place] [address], Ph. Attender: KENTRELL WELLER RPA-C [facility] Medical 02/26/2020 12:00:00 AM EST ETHAN ([facility]) Kentrell Weller, RPA-C: [address], [place] [address], Ph. Attender: KENTRELL WELLER RPA-C [facility] Medical 02/26/2020 12:00:00 AM EST ETHAN ([facility]) Kentrell Weller RPA-C: [address], [place] [address], Ph. Attender: KENTRELL WELLER RPA-C [facility] Medical 02/26/2020 12:00:00 AM EST ETHAN ([facility]) Kentrell Weller RPA-C: [address], [place] [address], Ph. Attender: KENTRELL WELLER RPA-C [facility] Medical 02/26/2020 12:00:00 AM EST ETHAN ([facility]) Kentrell Weller RPA-C: [address], [place] [address], Ph. Attender: KENTRELL WELLER RPA-C [facility] Medical 02/20/2020 12:00:00 AM EST ETHAN ([facility]) Kentrell Weller RPA-C: [address], [place] [address], Ph. Attender: KENTRELL WELLER RPA-C [facility] Medical 02/20/2020 12:00:00 AM EST ETHAN ([facility]) Kentrell Weller RPA-C: [address], [place] [address], Ph. Attender: KENTRELL WELLER RPA-C [facility] Medical 02/20/2020 12:00:00 AM EST ETHAN ([facility]) Kentrell Weller RPA-C: [address], [place] [address], Ph. Attender: KENTRELL WELLER RPA-C [facility] Medical 02/20/2020 12:00:00 AM EST ETHAN ([facility]) Kentrell Weller, RPA-C: [address], [place] [address], Ph. Attender: KENTRELL WELLER RPA-C [facility] Medical 02/20/2020 12:00:00 AM EST ETHAN ([facility]) Kentrell Weller, RPA-C: [address], [place] [address], Ph. Attender: KENTRELL WELLER RPA-C [facility] Medical 02/20/2020 12:00:00 AM EST ETHAN ([facility]) Kentrell Weller, RPA-C: [address], [place] [address], Ph. Attender: KENTRELL WELLER RPA-C [facility] Medical 02/20/2020 12:00:00 AM EST ETHAN ([facility]) Kentrell Weller, RPA-C: [address], [place] [address], Ph. Attender: KENTRELL WELLER RPA-C [facility] Medical 02/20/2020 12:00:00 AM EST ETHAN ([facility]) Kentrell Weller RPA-C: [address], [place] [address], Ph. Attender: KENTRELL WELLER RPA-C [facility] Medical 02/20/2020 12:00:00 AM EST ETHAN ([facility]) Kentrell Weller, RPA-C: [address], [place] [address], Ph. Attender: KENTRELL WELLER RPA-C [facility] Medical 02/20/2020 12:00:00 AM EST ETHAN ([facility]) Kentrell Weller RPA-C: [address], [place] [address], Ph. Attender: KENTRELL WELLER RPA-C [facility] Medical 02/20/2020 12:00:00 AM EST ETHAN ([facility]) Kentrell Weller RPA-C: [address], [place] [address], Ph. Attender: KENTRELL WELLER RPA-C [facility] Medical 02/20/2020 12:00:00 AM EST ETHAN ([facility]) Kentrell Weller RPA-C: [address], [place] [address], Ph. Attender: KENTRELL WELLER RPA-C [facility] Medical 02/20/2020 12:00:00 AM EST ETHAN ([facility]) Kentrell Weller RPA-C: [address], [place] [address], Ph. Attender: KENTRELL WELLER RPA-C [facility] Medical 02/20/2020 12:00:00 AM EST ETHAN ([facility]) Kentrell Weller, RPA-C: [address], [place] [address], Ph. Attender: KENTRELL WELLER RPA-C [facility] Medical 02/20/2020 12:00:00 AM EST ETHAN ([facility]) Kentrell Weller RPA-C: [address], [place] [address], Ph. Attender: KENTRELL VALDOVINOSC [facility] 02/20/2020 12:00:00 AM EST ETHAN ([facility]) Outpatient Attender: KENTRELL WELLER RPA-C [facility] 12/24/2019 12:17:01 PM EDT [facility] Outpatient Attender: KENTRELL WELLER RPA-C [facility] 12/24/2019 10:54:03 AM EDT [facility] Outpatient Attender: KENTRELL WELLER RPA-C [facility] 12/24/2019 10:35:03 AM EDT [facility] Outpatient Attender: KENTRELL WELLER RPA-C [facility] 12/24/2019 10:35:02 AM EDT [facility] Outpatient Attender: KENTRELL WELLER RPA-C [facility] 12/24/2019 09:18:03 AM EDT [facility] Outpatient Attender: KENTRELL WELLER RPA-C [facility] 12/24/2019 09:18:01 AM EDT [facility] Outpatient Attender: KENTRELL WELLER RPA-C [facility] 12/18/2019 08:01:02 AM EDT [facility] Outpatient Attender: KENTRELL WELLER RPA-C [facility] 12/17/2019 03:56:07 PM EDT [facility] Outpatient Attender: KENTRELL WELLER RPA-C [facility] 12/17/2019 02:30:06 PM EDT [facility] Outpatient Attender: KENTRELL WELLER RPA-C [facility] 12/11/2019 02:13:00 PM EDT [facility] Outpatient Attender: KENTRELL WELLER RPA-C [facility] 12/05/2019 05:01:59 PM EDT [facility] Outpatient Attender: KENTRELL WELLER RPA-C [facility] 12/05/2019 09:41:05 AM EDT [facility] Outpatient Attender: KENTRELL WELLER RPA-C [facility] 12/01/2019 03:02:01 PM EDT [facility] Outpatient Attender: KENTRELL WELLER RPA-C [facility] 11/27/2019 01:03:01 PM EDT [facility] Outpatient Attender: KENTRELL WELLER RPA-C [facility] 11/19/2019 09:34:03 AM EDT [facility] Outpatient Attender: KENTRELL WELLER RPA-C [facility] 11/19/2019 09:03:02 AM EDT [facility] Outpatient Attender: KENTRELL WELLER RPA-C [facility] 11/19/2019 09:03:01 AM EDT [facility] Outpatient Attender: KENTRELL WELLER RPA-C [facility] 11/13/2019 02:27:02 PM EDT [facility] Outpatient Attender: KENTRELL WELLER RPA-C [facility] 11/13/2019 02:26:00 PM EDT [facility] Outpatient Attender: KENTRELL WELLER RPA-C [facility] 11/13/2019 12:52:01 PM EDT [facility] Immunizations Vaccine Date Status Description Data Source(s) COVID-19, mRNA, LNP-S, PF, 100 mcg/0.5 mL dose 06/09/2020 11 :16:23 AM EDT completed .5 mL [facility]) COVID-19, mRNA, LNP-S, PF, 100 mcg/0.5 mL dose 06/09/2020 11 :16:23 AM EDT completed .5 mL [facility]) COVID-19, mRNA, LNP-S, PF, 100 mcg/0.5 mL dose 06/09/2020 11 :16:23 AM EDT completed .5 mL [facility]) COVID-19, mRNA, LNP-S, PF, 100 mcg/0.5 mL dose 06/09/2020 11 :16:23 AM EDT completed .5 mL [facility]) COVID-19, mRNA, LNP-S, PF, 100 mcg/0.5 mL dose 06/09/2020 11 :16:23 AM EDT completed .5 mL [facility]) COVID-19, mRNA, LNP-S, PF, 100 mcg/0.5 mL dose 06/09/2020 11 :16:23 AM EDT completed .5 mL [facility]) COVID-19, mRNA, LNP-S, PF, 100 mcg/0.5 mL dose 06/09/2020 11 :16:23 AM EDT completed .5 mL [facility] ([facility]) COVID-19, mRNA, LNP-S, PF, 100 mcg/0.5 mL dose 06/09/2020 11 :16:23 AM EDT completed .5 mL [facility] ([facility]) COVID-19, mRNA, LNP-S, PF, 100 mcg/0.5 mL dose 06/09/2020 11 :16:23 AM EDT completed .5 mL [facility] ([facility]) COVID-19 VACCINE Moderna 06/09/2020 12:00:00 AM EDT completed [place]SIIS Vaccine Series Complete: YESThis Data wa s Submitted to [facility] [employer]. COVID-19, mRNA, LNP-S, PF, 100 mcg/0.5 mL dose 05/12/2020 02 :31:06 PM EST completed .5 mL [facility] ([facility]) COVID-19, mRNA, LNP-S, PF, 100 mcg/0.5 mL dose 05/12/2020 02 :31:06 PM EST completed .5 mL [facility] ([facility]) COVID-19, mRNA, LNP-S, PF, 100 mcg/0.5 mL dose 05/12/2020 02 :31:06 PM EST completed .5 mL [facility] ([facility]) COVID-19, mRNA, LNP-S, PF, 100 mcg/0.5 mL dose 05/12/2020 02 :31:06 PM EST completed .5 mL [facility]) COVID-19, mRNA, LNP-S, PF, 100 mcg/0.5 mL dose 05/12/2020 02 :31:06 PM EST completed .5 mL [facility] ([facility]) COVID-19, mRNA, LNP-S, PF, 100 mcg/0.5 mL dose 05/12/2020 02 :31:06 PM EST completed .5 mL ETHAN ([facility]) COVID-19, mRNA, LNP-S, PF, 100 mcg/0.5 mL dose 05/12/2020 02 :31:06 PM EST completed 10.5 mL ETHAN ([facility]) COVID-19, mRNA, LNP-S, PF, 100 mcg/0.5 mL dose 05/12/2020 02 :31:06 PM EST completed .5 mL ETHAN ([facility]) COVID-19, mRNA, LNP-S, PF, 100 mcg/0.5 mL dose 05/12/2020 02 :31:06 PM EST completed .5 mL ETHAN ([facility]) COVID-19, mRNA, LNP-S, PF, 100 mcg/0.5 mL dose 05/12/2020 02 :31:06 PM EST completed .5 mL ETHAN ([facility]) COVID-19, mRNA, LNP-S, PF, 100 mcg/0.5 mL dose 05/12/2020 02 :31:06 PM EST completed .5 mL ETHAN ([facility]) COVID-19 VACCINE Moderna 05/12/2020 12:00:00 AM EST completed [place]SIIS Vaccine Series Complete: NOThis Data was Submitted to [facility] [employer]. New in 2011. IIV4 12/24/2019 12:00:00 AM EDT completed .5 mL [facility] ([facility]) New in 2011. IIV4 12/24/2019 12:00:00 AM EDT completed 0.5 mL ETHAN ([facility]) New in 2011. IIV4 12/24/2019 12:00:00 AM EDT completed 0.5 mL ETHAN ([facility]) New in 2011. IIV4 12/24/2019 12:00:00 AM EDT completed .5 mL ETHAN ([facility]) New in 2011. IIV4 12/24/2019 12:00:00 AM EDT completed 0.5 mL ETHAN ([facility]) New in 2011. IIV4 12/24/2019 12:00:00 AM EDT completed 0.5 mL ETHAN ([facility]) New in 2011. IIV4 12/24/2019 12:00:00 AM EDT completed 0.5 mL ETHAN ([facility]) New in 2011. IIV4 12/24/2019 12:00:00 AM EDT completed 0.5 mL ETHAN ([facility]) New in 2011. IIV4 12/24/2019 12:00:00 AM EDT completed 0.5 mL ETHAN ([facility]) New in 2011. IIV4 12/24/2019 12:00:00 AM EDT completed 0.5 mL ETHAN ([facility]) New in 2011. IIV4 12/24/2019 12:00:00 AM EDT completed 0.5 mL ETHAN ([facility]) New in 2011. IIV4 12/24/2019 12:00:00 AM EDT completed 0.5 mL ETHAN ([facility]) Medications Medication Brand Name Start Date Product Form Dose Route Admi nistrative Instructions Pharmacy Instructions Status Indications Reaction Description Data Source(s) canagliflozin 100 MG Oral Tablet [Invoka na] Canagliflozin (Invokana) 100 MG TABS Canagliflozin (Invokana) 100 MG TABS 07/12/2020 12:00:00 AM EDT 100 mg Oral active Take 100 mg by mouth [facility] sitagliptin 100 MG Oral Tablet sitaGLIPtin (JANUVIA) 1 00 MG tablet sitaGLIPtin (JANUVIA) 100 MG tablet 07/09/2020 12:00:00 AM EDT 1 {tbl} Oral active Take 1 tablet by mouth daily [facility] Metformin hydrochloride 1000 MG Oral Tab let metFORMIN (GLUCOPHAGE) 1000 MG tablet metFORMIN (GLUCOPHAGE) 1000 MG tablet 07/09/2020 12:00:00 AM EDT active Use as directed. Take 1 tabl et twice daily with meals. [facility] Insulin Glargine (Basaglar KwikPen) 100 UNIT/ML SOPN [id number] 07/09/2020 12:00:00 AM EDT active Inject 15 units into skin at bedtime, do not exceed more than 30 units in 1 day. Dx E11.9 [facility] BD Pen Needle Mini U/F 31G X 5 MM (Insulin Pen Needle) [id number] 06/25/2020 12:00:00 AM EDT active Use as directed. Use to inject insulin as needed. Dx E11.9 [facility] Basaglar KwikPen 100 UNIT/ML Subcutaneou s Solution Pen-injector (insulin glargine) [id number] 06/25/2020 12:00:00 AM EDT active Inject 15 units into skin at bedtime, do not exceed more than 30 units in [address] [facility] Lisinopril 10 MG Oral Tablet Lisinopril 10 MG Oral Tab let (ZESTRIL) Lisinopril 10 MG Oral Tablet (ZESTRIL) 06/22/2020 12:00:00 AM EDT [facility] ferrous sulfate 325 MG Oral Tablet Ferrous Sulfate 325 (65 Fe) MG Oral Tablet Ferrous Sulfate 325 (65 Fe) MG Oral Tablet 06/22/2020 12:00:00 AM EDT 1 {tbl} Oral active Take 1 tablet by janice th daily [facility] sitagliptin 50 MG Oral Tablet [Januvia] Januvia 50 MG Oral Tablet Januvia 50 MG Oral Tablet 06/22/2020 12:00:00 AM EDT [facility] ferrous sulfate 325 MG Oral Tablet ferrous sulfate 325 (65 FE) MG tablet ferrous sulfate 325 (65 FE) MG tablet 06/22/2020 12:00:00 AM EDT 1 {tbl} Or al active Take 1 tablet by mouth daily [facility] Lisinopril 10 MG Oral Tablet lisinopril (PRINIVIL,ZEST RIL) 10 MG tablet lisinopril (PRINIVIL,ZESTRIL) 10 MG tablet 06/22/2020 12:00:00 AM EDT active [facility] Hydrochlorothiazide 12.5 MG Oral Capsule hydroCHLOROthiazide 12.5 MG Oral Capsule (MICROZIDE) hydroCHLOROthiazide 12.5 MG Oral Capsule (MICROZIDE) 06/20/2020 12:00:00 AM EDT active TAKE 1 CAPSULE BY MOUTH DAILY NEEDED FOR EDEMA [facility] [place] Metformin hydrochloride 1000 MG Oral Tab let metFORMIN HCl 1000 MG Oral Tablet (GLUCOPHAGE) metFORMIN HCl 1000 MG Oral Tablet (GLUCOPHAGE) 12:00:00 AM EDT 1000 mg Oral active Take 1,000 mg by mouth [employer] [facility] Daily [facility] [place] Hydrochlorothiazide 12.5 MG Oral Capsule hydrochlorothiazide (MICROZIDE) 12.5 MG capsule hydrochlorothiazide (MICROZIDE) 12.5 MG capsule 2020 12:00:00 AM EDT active TAKE 1 CAPSULE BY MOUTH DAILY NEEDED FOR EDEMA [facility] pregabalin 100 MG Oral Capsule Pregabalin 100 MG Oral Capsule (LYRICA) Pregabalin 100 MG Oral Capsule (LYRICA) 06/09/2020 12:00:00 AM EDT 100 mg Oral active Take 100 mg by mouth [employer] [facility] [place] pregabalin 100 MG Oral Capsule pregabalin (LYRICA) 100 MG capsule pregabalin (LYRICA) 100 MG capsule 06/09/2020 12:00:00 AM EDT 100 mg Oral active Take 100 mg by mouth [facility] Glyburide 5 MG Oral Tablet glyBURIDE 5 MG Oral Tablet (DIABETA) glyBURIDE 5 MG Oral Tablet (DIABETA) 05/25/2020 12:00:00 AM EDT active TAKE 2 TABLETS BY MOUTH IN THE AM AND 1 TABLET IN THE PM. [facility] [place] Omeprazole 20 MG Delayed Release Oral Ca psule Omeprazole 20 MG Oral Capsule Delayed Release (PriLOSEC) Omeprazole 20 MG Oral Capsule Delayed Re lease (PriLOSEC) 05/25/2020 12:00:00 AM EDT Oral active Take by mouth daily [facility] [place] Omeprazole 20 MG Delayed Release Oral Ca psule omeprazole (PriLOSEC) 20 MG capsule omeprazole (PriLOSEC) 20 MG capsule 05/25/2020 12:00:00 AM EDT Oral active Take by mouth [facility] Naproxen 500 MG Oral Tablet Naproxen 500 MG Oral Table t (NAPROSYN) Naproxen 500 MG Oral Tablet (NAPROSYN) 05/23/2020 12:00:00 AM EST 500 mg Oral active Take 500 mg by mouth Two times daily with meals [facility] pregabalin 100 MG Oral Capsule Pregabalin 04/30/2020 12:00:00 AM EST ORAL active MEDENT ([facility]) pregabalin 25 MG Oral Capsule Pregabalin 03/23/2020 12:00:00 AM EST ORAL completed [facility] ([facility]) pregabalin 50 MG Oral Capsule Pregabalin 03/23/2020 12:00:00 AM EST ORAL completed [facility] ([facility]) Sertraline 100 MG Oral Tablet sertraline 100 mg tablet sertr romeo 100 mg tablet completed sertraline 100 MG Oral Tablet PEPIN ([facility]) Sertraline 100 MG Oral Tablet sertraline 100 mg tablet TAKE 1 TABLET BY MOUTH DAILY sertraline 100 mg tablet TAKE 1 TABLET BY MOUTH DAILY completed sertraline 100 MG Oral Tablet AT [facility] ([facility]) 0.5 ML dulaglutide 1.5 MG/ML Auto-Inject or [Trulicity] Trulicity 0.75 mg/0.5 mL subcutaneous pen injector INJ 0.75MG SC WEEKLY Trulicity 0.75 mg/0.5 mL subcutaneous pen injector INJ 0.75MG SC WEEKLY completed 0.5 ML dulaglutide 1.5 MG/ML Auto-Injector [Trulicity] ETHAN ([facility]) meloxicam 15 MG Oral Tablet meloxicam 15 mg tablet TK 1 T PO D meloxicam 15 mg tablet TK 1 T PO D completed edgar oxicam 15 MG Oral Tablet ETHAN ([facility]) Sertraline 50 MG Oral Tablet sertraline 50 mg tablet T K 1 T PO D IN THE MORNING sertraline 50 mg tablet TK 1 T PO D IN THE MORNING completed sertraline 50 MG Oral Tablet ETHAN ([facility]) Albuterol 0.83 MG/ML Inhalant Solution a lbuterol sulfate 2.5 mg/3 mL (0.083 %) solution for nebulization VVN Q 4 TO 6 H PRF WHZ OR SOB albuterol sulfate 2.5 mg/3 mL (0.083 %) solution for nebulization VVN Q 4 TO 6 H PRF WHZ OR SOB completed albuterol 0.83 MG/ML Inhalation Solution PEPIN ([facility]) Lactulose 667 MG/ML Oral Solution [Enulo se] Enulose 10 gram/15 mL oral solution TK 30ML PO BID FOR CONSTIPATION Enulose 10 gram/15 mL oral solution TK 3 0ML PO BID FOR CONSTIPATION completed lactulose 667 MG/ML Oral Solution [Enulose] PEPIN ([facility]) cefdinir 300 MG Oral Capsule cefdinir 30 0 mg capsule TAKE 1 CAPSULE BY MOUTH EVERY 12 HOURS FOR 10 DAYS cefdinir 300 mg capsule TAKE 1 CAPSULE B Y MOUTH EVERY 12 HOURS FOR 10 DAYS completed cefdinir 300 MG Oral Capsule PEPIN ([facility]) Levofloxacin 250 MG Oral Tablet levofloxacin 250 mg ta blet levofloxacin 250 mg tablet completed levofloxacin 25 0 MG Oral Tablet PEPIN ([facility]) meloxicam 15 MG Oral Tablet meloxicam 15 mg tablet TK 1 T PO D meloxicam 15 mg tablet TK 1 T PO D completed edgar oxicam 15 MG Oral Tablet PEPIN ([facility]) gabapentin 600 MG Oral Tablet gabapentin 600 mg tablet TK 1 T PO TID gabapentin 600 mg tablet TK 1 T PO TID completed gabapentin 600 MG Oral Tablet PEPIN ([facility]) sitagliptin 50 MG Oral Tablet [Januvia] Januvia 50 mg tablet Januvia 50 mg tablet completed sitagliptin 50 MG Oral Tablet [Januvia] PEPIN ([facility]) Metoclopramide 10 MG Oral Tablet metoclo pramide 10 mg tablet TK 1 T PO Q 6 H PRN N metoclopramide 10 mg tablet TK 1 T PO Q 6 H PRN N completed metoclopramide 10 MG Oral Tablet PEPIN ([facility]) cefdinir 300 MG Oral Capsule cefdinir 30 0 mg capsule TAKE 1 CAPSULE BY MOUTH EVERY 12 HOURS FOR 10 DAYS cefdinir 300 mg capsule TAKE 1 CAPSULE B Y MOUTH EVERY 12 HOURS FOR 10 DAYS completed cefdinir 300 MG Oral Capsule PEPIN ([facility]) meloxicam 15 MG Oral Tablet meloxicam 15 mg tablet TK 1 T PO D meloxicam 15 mg tablet TK 1 T PO D completed edgar oxicam 15 MG Oral Tablet PEPIN ([facility]) Omeprazole 40 MG Delayed Release Oral Ca psule omeprazole 40 mg capsule,delayed release TK ONE C PO QD omeprazole 40 mg capsule,delayed release TK ONE C PO Q D completed omeprazole 40 MG Delayed Release Oral Capsule PEPIN ([facility]) Ciprofloxacin 250 MG Oral Tablet ciprofl oxacin 250 mg tablet TK 1 T PO D FOR 5 DAYS FOR SYMPTOMS OF URINARY TRACT INFECTION ciprofloxacin 250 mg tablet TK 1 T PO D FOR 5 DAYS FOR SYMPTOMS OF URINARY TRACT INFECTION completed ciprofloxacin 250 MG Oral Tablet PEPIN ([facility]) Fluoxetine 10 MG Oral Capsule fluoxetine 10 mg capsule TK 1 C PO QD fluoxetine 10 mg capsule TK 1 C PO QD completed fluoxetine 10 MG Oral Capsule PEPIN ([facility]) Sertraline 25 MG Oral Tablet sertraline 25 mg tablet T K 1 T PO QD sertraline 25 mg tablet TK 1 T PO QD completed sertraline 25 MG Oral Tablet PEPIN ([facility]) Levofloxacin 250 MG Oral Tablet levofloxacin 250 mg ta blet levofloxacin 250 mg tablet completed levofloxacin 25 0 MG Oral Tablet PEPIN ([facility]) Sertraline 50 MG Oral Tablet sertraline 50 mg tablet T K 1 T PO D IN THE MORNING sertraline 50 mg tablet TK 1 T PO D IN THE MORNING completed sertraline 50 MG Oral Tablet [facility]PIN ([facility]) Ciprofloxacin 3 MG/ML Ophthalmic Solutio n ciprofloxacin 0.3 % eye drops INSTILL 1 DROP INTO AFFECTED EYE/S 2 TIMES PER DAY FOR 5 DAYS ciprofloxacin 0.3 % eye drops INSTILL 1 DROP INTO AFFECTED EYE/S 2 TIMES PER DAY FOR 5 DAYS completed ciprofloxacin 3 MG/ML Ophthalmic Solution PEPIN ([facility]) NITROFURANTOIN, MACROCRYSTALS 25 MG / Ni trofurantoin, Monohydrate 75 MG Oral Capsule nitrofurantoin monohydrate/macrocrystals 100 mg capsule TK 1 C PO BID nitrofurantoin monohydrate/macrocrystals 100 mg capsule TK 1 C PO BID completed nitrofurantoin, macrocrystals 25 MG / nitrofurantoin, monohydrate 75 MG Oral Capsule ETHAN ([facility]) Metronidazole 0.0075 MG/MG Vaginal Gel m etronidazole 0.75 % vaginal gel INSERT 1 APPLICATION VAGINALLY AT BEDTIME FOR 7 DAYS metronidazole 0.75 % vaginal gel INSERT 1 APPLICATION VAGINALLY AT BEDTIME FOR 7 DAYS completed metronidazole 0.0075 MG/MG Vaginal Gel PEPIN ([facility]) Sulfamethoxazole 800 MG / Trimethoprim 1 60 MG Oral Tablet sulfamethoxazole 800 mg-trimethoprim 160 mg tablet TAKE 1 TABLET BY MOUTH TWICE A DAY FOR 7 DAYS sulfamethoxazole 800 mg-trimethoprim 160 mg tablet TAKE 1 TABLET BY MOUTH TWICE A DAY FOR 7 DAYS completed sulfamethoxazole 800 MG / trimethoprim 160 MG Oral Tablet PE[facility] ([facility]) Sertraline 100 MG Oral Tablet sertraline 100 mg tablet TAKE 1 TABLET BY MOUTH DAILY sertraline 100 mg tablet TAKE 1 TABLET BY MOUTH DAILY completed sertraline 100 MG Oral Tablet AT [facility] ([facility]) albuterol sulfate HFA 90 mcg/actuation a erosol inhaler INHALE 2 PUFFS BY MOUTH EVERY 4 HOURS NEEDED FOR WHEEZING OR SHORTNESS OF BREATH [id number] completed [id number] 200 ACTUAT albuterol 0.09 MG/ACTUAT Metered Dose Inhaler PEPIN ([facility]) cefdinir 300 MG Oral Capsule cefdinir 30 0 mg capsule TAKE 1 CAPSULE BY MOUTH EVERY 12 HOURS FOR 10 DAYS cefdinir 300 mg capsule TAKE 1 CAPSULE B Y MOUTH EVERY 12 HOURS FOR 10 DAYS completed cefdinir 300 MG Oral Capsule PEPIN ([facility]) NITROFURANTOIN, MACROCRYSTALS 25 MG / Ni trofurantoin, Monohydrate 75 MG Oral Capsule nitrofurantoin monohydrate/macrocrystals 100 mg capsule TK 1 C PO BID nitrofurantoin monohydrate/macrocrystals 100 mg capsule TK 1 C PO BID completed nitrofurantoin, macrocrystals 25 MG / nitrofurantoin, monohydrate 75 MG Oral Capsule ETHAN ([facility]) 0.5 ML dulaglutide 1.5 MG/ML Auto-Inject or [Trulicity] Trulicity 0.75 mg/0.5 mL subcutaneous pen injector INJ 0.75MG SC WEEKLY Trulicity 0.75 mg/0.5 mL subcutaneous pen injector INJ 0.75MG SC WEEKLY completed 0.5 ML dulaglutide 1.5 MG/ML Auto-Injector [Trulicity] PEPIN ([facility]) Omeprazole 40 MG Delayed Release Oral Ca psule omeprazole 40 mg capsule,delayed release TK ONE C PO QD omeprazole 40 mg capsule,delayed release TK ONE C PO Q D completed omeprazole 40 MG Delayed Release Oral Capsule PEPIN ([facility]) Levofloxacin 500 MG Oral Tablet levoflox acin 500 mg tablet TAKE 1 TABLET BY BY MOUTH ONCE A DAY FOR 10 DAYS levofloxacin 500 mg tablet TAKE 1 TABLET BY BY MOUTH ONCE A DAY FOR 10 DAYS completed levofloxacin 500 MG Oral Tablet PEPIN ([facility]) Metronidazole 500 MG Oral Tablet metroni dazole 500 mg tablet TK 1 T PO TID FOR 7 DAYS metronidazole 500 mg tablet TK 1 T PO TID FOR 7 DAYS completed metronidazole 500 MG Oral Tablet PE[facility] ([facility]) gabapentin 600 MG Oral Tablet gabapentin 600 mg tablet TK 1 T PO TID gabapentin 600 mg tablet TK 1 T PO TID completed gabapentin 600 MG Oral Tablet PEPIN ([facility]) Sertraline 100 MG Oral Tablet sertraline 100 mg tablet TAKE 1 TABLET BY MOUTH DAILY sertraline 100 mg tablet TAKE 1 TABLET BY MOUTH DAILY completed sertraline 100 MG Oral Tablet AT [facility]) Sertraline 100 MG Oral Tablet sertraline 100 mg tablet TAKE 1 TABLET BY MOUTH DAILY sertraline 100 mg tablet TAKE 1 TABLET BY MOUTH DAILY completed sertraline 100 MG Oral Tablet AT [facility]) Levofloxacin 250 MG Oral Tablet levofloxacin 250 mg ta blet levofloxacin 250 mg tablet completed levofloxacin 25 0 MG Oral Tablet PEPIN ([facility]) Omeprazole 40 MG Delayed Release Oral Ca psule omeprazole 40 mg capsule,delayed release TK ONE C PO QD omeprazole 40 mg capsule,delayed release TK ONE C PO Q D completed omeprazole 40 MG Delayed Release Oral Capsule PEPIN ([facility]) Metronidazole 0.0075 MG/MG Vaginal Gel m etronidazole 0.75 % vaginal gel INSERT 1 APPLICATION VAGINALLY AT BEDTIME FOR 7 DAYS metronidazole 0.75 % vaginal gel INSERT 1 APPLICATION VAGINALLY AT BEDTIME FOR 7 DAYS completed metronidazole 0.0075 MG/MG Vaginal Gel [facility]) Lisinopril 10 MG Oral Tablet lisinopril 10 mg tablet lisinopril 10 mg tablet completed lisinopril 10 MG Oral Tablet PEPIN ([facility]) Lactulose 667 MG/ML Oral Solution [Enulo se] Enulose 10 gram/15 mL oral solution TK 30ML PO BID FOR CONSTIPATION Enulose 10 gram/15 mL oral solution TK 3 0ML PO BID FOR CONSTIPATION completed lactulose 667 MG/ML Oral Solution [Enulose] PEPIN ([facility]) albuterol sulfate HFA 90 mcg/actuation a erosol inhaler INHALE 2 PUFFS BY MOUTH EVERY 4 HOURS NEEDED FOR WHEEZING OR SHORTNESS OF BREATH [id number] completed [id number] 200 ACTUAT albuterol 0.09 MG/ACTUAT Metered Dose Inhaler PEPIN ([facility]) albuterol sulfate HFA 90 mcg/actuation a erosol inhaler INHALE 2 PUFFS BY MOUTH EVERY 4 HOURS NEEDED FOR WHEEZING OR SHORTNESS OF BREATH [id number] completed [id number] 200 ACTUAT albuterol 0.09 MG/ACTUAT Metered Dose Inhaler PEPIN ([facility]) Levofloxacin 250 MG Oral Tablet levofloxacin 250 mg ta blet levofloxacin 250 mg tablet completed levofloxacin 25 0 MG Oral Tablet PEPIN ([facility]) Sertraline 50 MG Oral Tablet sertraline 50 mg tablet T K 1 T PO D IN THE MORNING sertraline 50 mg tablet TK 1 T PO D IN THE MORNING completed sertraline 50 MG Oral Tablet PEPIN ([facility]) Metronidazole 500 MG Oral Tablet metroni dazole 500 mg tablet TK 1 T PO TID FOR 7 DAYS metronidazole 500 mg tablet TK 1 T PO TID FOR 7 DAYS completed metronidazole 500 MG Oral Tablet PEPIN ([facility]) Metoclopramide 10 MG Oral Tablet metoclo pramide 10 mg tablet TK 1 T PO Q 6 H PRN N metoclopramide 10 mg tablet TK 1 T PO Q 6 H PRN N completed metoclopramide 10 MG Oral Tablet PEPIN ([facility]) Ciprofloxacin 3 MG/ML Ophthalmic Solutio n ciprofloxacin 0.3 % eye drops INSTILL 1 DROP INTO AFFECTED EYE/S 2 TIMES PER DAY FOR 5 DAYS ciprofloxacin 0.3 % eye drops INSTILL 1 DROP INTO AFFECTED EYE/S 2 TIMES PER DAY FOR 5 DAYS completed ciprofloxacin 3 MG/ML Ophthalmic Solution PEPIN ([facility]) silver sulfadiazine 10 MG/ML Topical Cre am [SSD] SSD 1 % topical cream BRIANA TOPICALLY AA BID SSD 1 % topical cream BRIANA TOPICALLY AA BID completed silver sulfadiazine 10 MG/ML Top ical Cream [SSD] PEPIN ([facility]) Simethicone 180 MG Oral Capsule Gas Reli ef (simethicone) 180 mg capsule TK ONE C PO TID Gas Relief (simethicone) 180 mg capsule TK ONE C PO TID completed simethicone 180 MG Oral Capsule PEPIN ([facility]) Cephalexin 500 MG Oral Capsule cephalexin 500 mg capsu le cephalexin 500 mg capsule completed cephalexin 500 MG Oral Capsule PEPIN ([facility]) Metronidazole 500 MG Oral Tablet metroni dazole 500 mg tablet TK 1 T PO TID FOR 7 DAYS metronidazole 500 mg tablet TK 1 T PO TID FOR 7 DAYS completed metronidazole 500 MG Oral Tablet PEPIN ([facility]) Metoclopramide 10 MG Oral Tablet metoclo pramide 10 mg tablet TK 1 T PO Q 6 H PRN N metoclopramide 10 mg tablet TK 1 T PO Q 6 H PRN N completed metoclopramide 10 MG Oral Tablet PEPIN ([facility]) Dicyclomine Hydrochloride 10 MG Oral Cap zahra dicyclomine 10 mg capsule TK 1 C PO Q 6 H PRF IRRITABLE BOWEL SYNDROME dicyclomine 10 mg capsule TK 1 C PO Q 6 H PRF IRRITABLE BOWEL SYNDROME completed dicyclomine hydrochloride 10 MG Oral Capsule ETHAN ([facility]) Lactulose 667 MG/ML Oral Solution [Enulo se] Enulose 10 gram/15 mL oral solution TK 30ML PO BID FOR CONSTIPATION Enulose 10 gram/15 mL oral solution TK 3 0ML PO BID FOR CONSTIPATION completed lactulose 667 MG/ML Oral Solution [Enulose] PEPIN ([facility]) gabapentin 600 MG Oral Tablet gabapentin 600 mg tablet TK 1 T PO TID gabapentin 600 mg tablet TK 1 T PO TID completed gabapentin 600 MG Oral Tablet PEPIN ([facility]) Simethicone 180 MG Oral Capsule Gas Reli ef (simethicone) 180 mg capsule TK ONE C PO TID Gas Relief (simethicone) 180 mg capsule TK ONE C PO TID completed simethicone 180 MG Oral Capsule ETHAN ([facility]) Sertraline 50 MG Oral Tablet sertraline 50 mg tablet T K 1 T PO D IN THE MORNING sertraline 50 mg tablet TK 1 T PO D IN THE MORNING completed sertraline 50 MG Oral Tablet ETHAN ([facility]) Lactulose 667 MG/ML Oral Solution [Enulo se] Enulose 10 gram/15 mL oral solution TK 30ML PO BID FOR CONSTIPATION Enulose 10 gram/15 mL oral solution TK 3 0ML PO BID FOR CONSTIPATION completed lactulose 667 MG/ML Oral Solution [Enulose] ETHAN ([facility]) Sertraline 25 MG Oral Tablet sertraline 25 mg tablet T K 1 T PO QD sertraline 25 mg tablet TK 1 T PO QD completed sertraline 25 MG Oral Tablet ETHAN ([facility]) gabapentin 600 MG Oral Tablet gabapentin 600 mg tablet TK 1 T PO TID gabapentin 600 mg tablet TK 1 T PO TID completed gabapentin 600 MG Oral Tablet ETHAN ([facility]) Lisinopril 5 MG Oral Tablet lisinopril 5 mg tablet TAKE 2 TABLETS BY MOUTH DAILY lisinopril 5 mg tablet TAKE 2 TABLETS BY MOUTH DAILY completed lisinopril 5 MG Oral Tablet ETHAN ([facility]) Simethicone 180 MG Oral Capsule Gas Reli ef (simethicone) 180 mg capsule TK ONE C PO TID Gas Relief (simethicone) 180 mg capsule TK ONE C PO TID completed simethicone 180 MG Oral Capsule ETHAN ([facility]) NITROFURANTOIN, MACROCRYSTALS 25 MG / Ni trofurantoin, Monohydrate 75 MG Oral Capsule nitrofurantoin monohydrate/macrocrystals 100 mg capsule TK 1 C PO BID nitrofurantoin monohydrate/macrocrystals 100 mg capsule TK 1 C PO BID completed nitrofurantoin, macrocrystals 25 MG / nitrofurantoin, monohydrate 75 MG Oral Capsule ETHAN ([facility]) gabapentin 600 MG Oral Tablet gabapentin 600 mg tablet TK 1 T PO TID gabapentin 600 mg tablet TK 1 T PO TID completed gabapentin 600 MG Oral Tablet ETHAN ([facility]) Omeprazole 40 MG Delayed Release Oral Ca psule omeprazole 40 mg capsule,delayed release TK ONE C PO QD omeprazole 40 mg capsule,delayed release TK ONE C PO Q D completed omeprazole 40 MG Delayed Release Oral Capsule ETHAN ([facility]) 0.5 ML dulaglutide 1.5 MG/ML Auto-Inject or [Trulicity] Trulicity 0.75 mg/0.5 mL subcutaneous pen injector INJ 0.75MG SC WEEKLY Trulicity 0.75 mg/0.5 mL subcutaneous pen injector INJ 0.75MG SC WEEKLY completed 0.5 ML dulaglutide 1.5 MG/ML Auto-Injector [Trulicity] ETHAN ([facility]) meloxicam 15 MG Oral Tablet meloxicam 15 mg tablet TK 1 T PO D meloxicam 15 mg tablet TK 1 T PO D completed edgar oxicam 15 MG Oral Tablet ETHAN ([facility]) gabapentin 600 MG Oral Tablet gabapentin 600 mg tablet TK 1 T PO TID gabapentin 600 mg tablet TK 1 T PO TID completed gabapentin 600 MG Oral Tablet ETHAN ([facility]) Lisinopril 5 MG Oral Tablet lisinopril 5 mg tablet TAKE 2 TABLETS BY MOUTH DAILY lisinopril 5 mg tablet TAKE 2 TABLETS BY MOUTH DAILY completed lisinopril 5 MG Oral Tablet ETHAN ([facility]) Lisinopril 5 MG Oral Tablet lisinopril 5 mg tablet TK 2 TS PO D lisinopril 5 mg tablet TK 2 TS PO D completed li sinopril 5 MG Oral Tablet ETHAN ([facility]) Sertraline 50 MG Oral Tablet sertraline 50 mg tablet T K 1 T PO D IN THE MORNING sertraline 50 mg tablet TK 1 T PO D IN THE MORNING completed sertraline 50 MG Oral Tablet ETHAN ([facility]) albuterol sulfate HFA 90 mcg/actuation a erosol inhaler INHALE 2 PUFFS BY MOUTH EVERY 4 HOURS NEEDED FOR WHEEZING OR SHORTNESS OF BREATH [id number] completed [id number] 200 ACTUAT albuterol 0.09 MG/ACTUAT Metered Dose Inhaler ETHAN ([facility]) Acetaminophen 500 MG Oral Tablet acetami nophen 500 mg tablet TAKE 2 TABS BY MOUTH EVERY 6 HOURS NEEDED FOR PAIN & FEVER. acetaminophen 500 mg tablet TAKE 2 TABS BY MOUTH EVERY 6 HOURS NEEDED FOR PAIN & FEVER. completed acetaminophen 500 MG Oral Tablet PEPIN ([facility]) gabapentin 800 MG Oral Tablet gabapentin 800 mg tablet TAKE 1 TABLET BY MOUTH THREE TIMES DAILY gabapentin 800 mg tablet TAKE 1 TABLET B Y MOUTH THREE TIMES DAILY completed gabapentin 800 M G Oral Tablet PEPIN ([facility]) Albuterol 0.83 MG/ML Inhalant Solution a lbuterol sulfate 2.5 mg/3 mL (0.083 %) solution for nebulization VVN Q 4 TO 6 H PRF WHZ OR SOB albuterol sulfate 2.5 mg/3 mL (0.083 %) solution for nebulization VVN Q 4 TO 6 H PRF WHZ OR SOB completed albuterol 0.83 MG/ML Inhalation Solution PEPIN ([facility]) Simethicone 180 MG Oral Capsule Gas Reli ef (simethicone) 180 mg capsule TK ONE C PO TID Gas Relief (simethicone) 180 mg capsule TK ONE C PO TID completed simethicone 180 MG Oral Capsule PEPIN ([facility]) Metoclopramide 10 MG Oral Tablet metoclo pramide 10 mg tablet TK 1 T PO Q 6 H PRN N metoclopramide 10 mg tablet TK 1 T PO Q 6 H PRN N completed metoclopramide 10 MG Oral Tablet PEPIN ([facility]) Ciprofloxacin 250 MG Oral Tablet ciprofl oxacin 250 mg tablet TK 1 T PO D FOR 5 DAYS FOR SYMPTOMS OF URINARY TRACT INFECTION ciprofloxacin 250 mg tablet TK 1 T PO D FOR 5 DAYS FOR SYMPTOMS OF URINARY TRACT INFECTION completed ciprofloxacin 250 MG Oral Tablet PEPIN ([facility]) Metoclopramide 10 MG Oral Tablet metoclo pramide 10 mg tablet TK 1 T PO Q 6 H PRN N metoclopramide 10 mg tablet TK 1 T PO Q 6 H PRN N completed metoclopramide 10 MG Oral Tablet [facility]) Metronidazole 0.0075 MG/MG Vaginal Gel m etronidazole 0.75 % vaginal gel INSERT 1 APPLICATION VAGINALLY AT BEDTIME FOR 7 DAYS metronidazole 0.75 % vaginal gel INSERT 1 APPLICATION VAGINALLY AT BEDTIME FOR 7 DAYS completed metronidazole 0.0075 MG/MG Vaginal Gel PEPIN ([facility]) Sulfamethoxazole 800 MG / Trimethoprim 1 60 MG Oral Tablet sulfamethoxazole 800 mg-trimethoprim 160 mg tablet TAKE 1 TABLET BY MOUTH TWICE A DAY FOR 7 DAYS sulfamethoxazole 800 mg-trimethoprim 160 mg tablet TAKE 1 TABLET BY MOUTH TWICE A DAY FOR 7 DAYS completed sulfamethoxazole 800 MG / trimethoprim 160 MG Oral Tablet ETHAN ([facility]) meloxicam 15 MG Oral Tablet meloxicam 15 mg tablet TK 1 T PO D meloxicam 15 mg tablet TK 1 T PO D completed edgar oxicam 15 MG Oral Tablet ETHAN ([facility]) meloxicam 15 MG Oral Tablet meloxicam 15 mg tablet TK 1 T PO D meloxicam 15 mg tablet TK 1 T PO D completed edgar oxicam 15 MG Oral Tablet ETHAN ([facility]) Fluoxetine 10 MG Oral Capsule fluoxetine 10 mg capsule TK 1 C PO QD fluoxetine 10 mg capsule TK 1 C PO QD completed fluoxetine 10 MG Oral Capsule ETHAN ([facility]) 0.5 ML dulaglutide 3 MG/ML Auto-Injector [Trulicity] Trulicity 1.5 mg/0.5 mL subcutaneous pen injector INJECT SQ ONCE WEEKLY Trulicity 1.5 mg/0.5 mL subcutaneous pen injector INJECT SQ ONCE WEEKLY completed 0.5 ML dulaglutide 3 MG/ML Auto-Injector [Trulicity] PEPIN ([facility]) Glyburide 5 MG Oral Tablet glyburide 5 mg tablet glyburide 5 mg tablet completed glyburide 5 MG Oral Table t ETHAN ([facility]) gabapentin 600 MG Oral Tablet gabapentin 600 mg tablet TK 1 T PO TID gabapentin 600 mg tablet TK 1 T PO TID completed gabapentin 600 MG Oral Tablet ETHAN ([facility]) Fluoxetine 10 MG Oral Capsule fluoxetine 10 mg capsule TK 1 C PO QD fluoxetine 10 mg capsule TK 1 C PO QD completed fluoxetine 10 MG Oral Capsule ETHAN ([facility]) Sertraline 25 MG Oral Tablet sertraline 25 mg tablet T K 1 T PO QD sertraline 25 mg tablet TK 1 T PO QD completed sertraline 25 MG Oral Tablet ETHAN ([facility]) Sertraline 50 MG Oral Tablet sertraline 50 mg tablet T K 1 T PO D IN THE MORNING sertraline 50 mg tablet TK 1 T PO D IN THE MORNING completed sertraline 50 MG Oral Tablet ETHAN ([facility]) Metronidazole 0.0075 MG/MG Vaginal Gel m etronidazole 0.75 % vaginal gel INSERT 1 APPLICATION VAGINALLY AT BEDTIME FOR 7 DAYS metronidazole 0.75 % vaginal gel INSERT 1 APPLICATION VAGINALLY AT BEDTIME FOR 7 DAYS completed metronidazole 0.0075 MG/MG Vaginal Gel ETHAN ([facility]) Lactulose 667 MG/ML Oral Solution [Enulo se] Enulose 10 gram/15 mL oral solution TK 30ML PO BID FOR CONSTIPATION Enulose 10 gram/15 mL oral solution TK 3 0ML PO BID FOR CONSTIPATION completed lactulose 667 MG/ML Oral Solution [Enulose] ETHAN ([facility]) Fluoxetine 10 MG Oral Capsule fluoxetine 10 mg capsule TK 1 C PO QD fluoxetine 10 mg capsule TK 1 C PO QD completed fluoxetine 10 MG Oral Capsule ETHAN ([facility]) Phenazopyridine hydrochloride 100 MG Ora l Tablet phenazopyridine 100 mg tablet TAKE 1 TABLET BY MOUTH 3 TIMES PER DAY FOR 2 DAYS phenazopyridine 100 mg tablet TAKE 1 TABLET BY MOUTH 3 TIMES PER DAY FOR 2 DAYS completed phenazopyridine hydrochloride 100 MG Oral Tablet ETHAN ([facility]) Metronidazole 500 MG Oral Tablet metroni dazole 500 mg tablet TK 1 T PO TID FOR 7 DAYS metronidazole 500 mg tablet TK 1 T PO TID FOR 7 DAYS completed metronidazole 500 MG Oral Tablet ETHAN ([facility]) gabapentin 600 MG Oral Tablet gabapentin 600 mg tablet TK 1 T PO TID gabapentin 600 mg tablet TK 1 T PO TID completed gabapentin 600 MG Oral Tablet ETHAN ([facility]) meloxicam 15 MG Oral Tablet meloxicam 15 mg tablet TK 1 T PO D meloxicam 15 mg tablet TK 1 T PO D completed edgar oxicam 15 MG Oral Tablet ETHAN ([facility]) Ciprofloxacin 250 MG Oral Tablet ciprofl oxacin 250 mg tablet TK 1 T PO D FOR 5 DAYS FOR SYMPTOMS OF URINARY TRACT INFECTION ciprofloxacin 250 mg tablet TK 1 T PO D FOR 5 DAYS FOR SYMPTOMS OF URINARY TRACT INFECTION completed ciprofloxacin 250 MG Oral Tablet ETHAN ([facility]) Acetaminophen 500 MG Oral Tablet acetami nophen 500 mg tablet TAKE 2 TABS BY MOUTH EVERY 6 HOURS NEEDED FOR PAIN & FEVER. acetaminophen 500 mg tablet TAKE 2 TABS BY MOUTH EVERY 6 HOURS NEEDED FOR PAIN & FEVER. completed acetaminophen 500 MG Oral Tablet ETHAN ([facility]) Metoclopramide 10 MG Oral Tablet metoclo pramide 10 mg tablet TK 1 T PO Q 6 H PRN N metoclopramide 10 mg tablet TK 1 T PO Q 6 H PRN N completed metoclopramide 10 MG Oral Tablet ETHAN ([facility]) Metronidazole 500 MG Oral Tablet metroni dazole 500 mg tablet TK 1 T PO TID FOR 7 DAYS metronidazole 500 mg tablet TK 1 T PO TID FOR 7 DAYS completed metronidazole 500 MG Oral Tablet ETHAN ([facility]) meloxicam 15 MG Oral Tablet meloxicam 15 mg tablet TK 1 T PO D meloxicam 15 mg tablet TK 1 T PO D completed edgar oxicam 15 MG Oral Tablet PEPIN ([facility]) silver sulfadiazine 10 MG/ML Topical Cre am [SSD] SSD 1 % topical cream BRIANA TOPICALLY AA BID SSD 1 % topical cream BRIANA TOPICALLY AA BID completed silver sulfadiazine 10 MG/ML Top ical Cream [SSD] PEPIN ([facility]) Metronidazole 0.0075 MG/MG Vaginal Gel m etronidazole 0.75 % vaginal gel INSERT 1 APPLICATION VAGINALLY AT BEDTIME FOR 7 DAYS metronidazole 0.75 % vaginal gel INSERT 1 APPLICATION VAGINALLY AT BEDTIME FOR 7 DAYS completed metronidazole 0.0075 MG/MG Vaginal Gel PEPIN ([facility]) Ciprofloxacin 250 MG Oral Tablet ciprofl oxacin 250 mg tablet TK 1 T PO D FOR 5 DAYS FOR SYMPTOMS OF URINARY TRACT INFECTION ciprofloxacin 250 mg tablet TK 1 T PO D FOR 5 DAYS FOR SYMPTOMS OF URINARY TRACT INFECTION completed ciprofloxacin 250 MG Oral Tablet ETHAN ([facility]) Metronidazole 500 MG Oral Tablet metroni dazole 500 mg tablet TK 1 T PO TID FOR 7 DAYS metronidazole 500 mg tablet TK 1 T PO TID FOR 7 DAYS completed metronidazole 500 MG Oral Tablet PEPIN ([facility]) Lisinopril 5 MG Oral Tablet lisinopril 5 mg tablet TAKE 2 TABLETS BY MOUTH DAILY lisinopril 5 mg tablet TAKE 2 TABLETS BY MOUTH DAILY completed lisinopril 5 MG Oral Tablet ETHAN ([facility]) Sertraline 100 MG Oral Tablet sertraline 100 mg tablet TAKE 1 TABLET BY MOUTH DAILY sertraline 100 mg tablet TAKE 1 TABLET BY MOUTH DAILY completed sertraline 100 MG Oral Tablet AT [facility] ([facility]) Fluoxetine 10 MG Oral Capsule fluoxetine 10 mg capsule TK 1 C PO QD fluoxetine 10 mg capsule TK 1 C PO QD completed fluoxetine 10 MG Oral Capsule ETHAN ([facility]) Dicyclomine Hydrochloride 10 MG Oral Cap zahra dicyclomine 10 mg capsule TK 1 C PO Q 6 H PRF IRRITABLE BOWEL SYNDROME dicyclomine 10 mg capsule TK 1 C PO Q 6 H PRF IRRITABLE BOWEL SYNDROME completed dicyclomine hydrochloride 10 MG Oral Capsule ETHAN ([facility]) cefdinir 300 MG Oral Capsule cefdinir 30 0 mg capsule TAKE 1 CAPSULE BY MOUTH EVERY 12 HOURS FOR 10 DAYS cefdinir 300 mg capsule TAKE 1 CAPSULE B Y MOUTH EVERY 12 HOURS FOR 10 DAYS completed cefdinir 300 MG Oral Capsule PEPIN ([facility]) albuterol sulfate HFA 90 mcg/actuation a erosol inhaler INHALE 2 PUFFS BY MOUTH EVERY 4 HOURS NEEDED FOR WHEEZING OR SHORTNESS OF BREATH [id number] completed [id number] 200 ACTUAT albuterol 0.09 MG/ACTUAT Metered Dose Inhaler PEPIN ([facility]) Levofloxacin 250 MG Oral Tablet levofloxacin 250 mg ta blet levofloxacin 250 mg tablet completed levofloxacin 25 0 MG Oral Tablet PEPIN ([facility]) Omeprazole 40 MG Delayed Release Oral Ca psule omeprazole 40 mg capsule,delayed release TK ONE C PO QD omeprazole 40 mg capsule,delayed release TK ONE C PO Q D completed omeprazole 40 MG Delayed Release Oral Capsule PEPIN ([facility]) 0.5 ML dulaglutide 1.5 MG/ML Auto-Inject or [Trulicity] Trulicity 0.75 mg/0.5 mL subcutaneous pen injector INJ 0.75MG SC WEEKLY Trulicity 0.75 mg/0.5 mL subcutaneous pen injector INJ 0.75MG SC WEEKLY completed 0.5 ML dulaglutide 1.5 MG/ML Auto-Injector [Trulicity] PEPIN ([facility]) cefdinir 300 MG Oral Capsule cefdinir 30 0 mg capsule TAKE 1 CAPSULE BY MOUTH EVERY 12 HOURS FOR 10 DAYS cefdinir 300 mg capsule TAKE 1 CAPSULE B Y MOUTH EVERY 12 HOURS FOR 10 DAYS completed cefdinir 300 MG Oral Capsule ETHAN ([facility]) gabapentin 800 MG Oral Tablet gabapentin 800 mg tablet TAKE 1 TABLET BY MOUTH THREE TIMES DAILY gabapentin 800 mg tablet TAKE 1 TABLET B Y MOUTH THREE TIMES DAILY completed gabapentin 800 M G Oral Tablet ETHAN ([facility]) NITROFURANTOIN, MACROCRYSTALS 25 MG / Ni trofurantoin, Monohydrate 75 MG Oral Capsule nitrofurantoin monohydrate/macrocrystals 100 mg capsule TK 1 C PO BID nitrofurantoin monohydrate/macrocrystals 100 mg capsule TK 1 C PO BID completed nitrofurantoin, macrocrystals 25 MG / nitrofurantoin, monohydrate 75 MG Oral Capsule PEPIN ([facility]) Ciprofloxacin 250 MG Oral Tablet ciprofl oxacin 250 mg tablet TK 1 T PO D FOR 5 DAYS FOR SYMPTOMS OF URINARY TRACT INFECTION ciprofloxacin 250 mg tablet TK 1 T PO D FOR 5 DAYS FOR SYMPTOMS OF URINARY TRACT INFECTION completed ciprofloxacin 250 MG Oral Tablet PEPIN ([facility]) Simethicone 180 MG Oral Capsule Gas Reli ef (simethicone) 180 mg capsule TK ONE C PO TID Gas Relief (simethicone) 180 mg capsule TK ONE C PO TID completed simethicone 180 MG Oral Capsule PEPIN ([facility]) meloxicam 15 MG Oral Tablet meloxicam 15 mg tablet TK 1 T PO D meloxicam 15 mg tablet TK 1 T PO D completed edgar oxicam 15 MG Oral Tablet PEPIN ([facility]) Simethicone 180 MG Oral Capsule Gas Reli ef (simethicone) 180 mg capsule TK ONE C PO TID Gas Relief (simethicone) 180 mg capsule TK ONE C PO TID completed simethicone 180 MG Oral Capsule PEPIN ([facility]) Metoclopramide 10 MG Oral Tablet metoclo pramide 10 mg tablet TK 1 T PO Q 6 H PRN N metoclopramide 10 mg tablet TK 1 T PO Q 6 H PRN N completed metoclopramide 10 MG Oral Tablet PEPIN ([facility]) Sertraline 25 MG Oral Tablet sertraline 25 mg tablet T K 1 T PO QD sertraline 25 mg tablet TK 1 T PO QD completed sertraline 25 MG Oral Tablet ETHAN ([facility]) albuterol sulfate HFA 90 mcg/actuation a erosol inhaler INHALE 2 PUFFS BY MOUTH EVERY 4 HOURS NEEDED FOR WHEEZING OR SHORTNESS OF BREATH [id number] completed [id number] 200 ACTUAT albuterol 0.09 MG/ACTUAT Metered Dose Inhaler PEPIN ([facility]) Sertraline 50 MG Oral Tablet sertraline 50 mg tablet T K 1 T PO D IN THE MORNING sertraline 50 mg tablet TK 1 T PO D IN THE MORNING completed sertraline 50 MG Oral Tablet PEPIN ([facility]) Albuterol 0.83 MG/ML Inhalant Solution a lbuterol sulfate 2.5 mg/3 mL (0.083 %) solution for nebulization VVN Q 4 TO 6 H PRF WHZ OR SOB albuterol sulfate 2.5 mg/3 mL (0.083 %) solution for nebulization VVN Q 4 TO 6 H PRF WHZ OR SOB completed albuterol 0.83 MG/ML Inhalation Solution PEPIN ([facility]) Sertraline 25 MG Oral Tablet sertraline 25 mg tablet T K 1 T PO QD sertraline 25 mg tablet TK 1 T PO QD completed sertraline 25 MG Oral Tablet PEPIN ([facility]) NITROFURANTOIN, MACROCRYSTALS 25 MG / Ni trofurantoin, Monohydrate 75 MG Oral Capsule nitrofurantoin monohydrate/macrocrystals 100 mg capsule TK 1 C PO BID nitrofurantoin monohydrate/macrocrystals 100 mg capsule TK 1 C PO BID completed nitrofurantoin, macrocrystals 25 MG / nitrofurantoin, monohydrate 75 MG Oral Capsule PEPIN ([facility]) Ciprofloxacin 250 MG Oral Tablet ciprofl oxacin 250 mg tablet TK 1 T PO D FOR 5 DAYS FOR SYMPTOMS OF URINARY TRACT INFECTION ciprofloxacin 250 mg tablet TK 1 T PO D FOR 5 DAYS FOR SYMPTOMS OF URINARY TRACT INFECTION completed ciprofloxacin 250 MG Oral Tablet PEPIN ([facility]) Metronidazole 0.0075 MG/MG Vaginal Gel m etronidazole 0.75 % vaginal gel INSERT 1 APPLICATION VAGINALLY AT BEDTIME FOR 7 DAYS metronidazole 0.75 % vaginal gel INSERT 1 APPLICATION VAGINALLY AT BEDTIME FOR 7 DAYS completed metronidazole 0.0075 MG/MG Vaginal Gel PEPIN ([facility]) silver sulfadiazine 10 MG/ML Topical Cre am [SSD] SSD 1 % topical cream BRIANA TOPICALLY AA BID SSD 1 % topical cream BRIANA TOPICALLY AA BID completed silver sulfadiazine 10 MG/ML Top ical Cream [SSD] ETHAN ([facility]) gabapentin 800 MG Oral Tablet gabapentin 800 mg tablet TAKE 1 TABLET BY MOUTH THREE TIMES DAILY gabapentin 800 mg tablet TAKE 1 TABLET B Y MOUTH THREE TIMES DAILY completed gabapentin 800 M G Oral Tablet ETHAN ([facility]) gabapentin 800 MG Oral Tablet gabapentin 800 mg tablet TAKE 1 TABLET BY MOUTH THREE TIMES DAILY gabapentin 800 mg tablet TAKE 1 TABLET B Y MOUTH THREE TIMES DAILY completed gabapentin 800 M G Oral Tablet PEPIN ([facility]) Lisinopril 5 MG Oral Tablet lisinopril 5 mg tablet TAKE 2 TABLETS BY MOUTH DAILY lisinopril 5 mg tablet TAKE 2 TABLETS BY MOUTH DAILY completed lisinopril 5 MG Oral Tablet PEPIN ([facility]) Metronidazole 500 MG Oral Tablet metroni dazole 500 mg tablet TK 1 T PO TID FOR 7 DAYS metronidazole 500 mg tablet TK 1 T PO TID FOR 7 DAYS completed metronidazole 500 MG Oral Tablet PEPIN ([facility]) Sertraline 50 MG Oral Tablet sertraline 50 mg tablet T K 1 T PO D IN THE MORNING sertraline 50 mg tablet TK 1 T PO D IN THE MORNING completed sertraline 50 MG Oral Tablet PEPIN ([facility]) Dicyclomine Hydrochloride 10 MG Oral Cap zahra dicyclomine 10 mg capsule TK 1 C PO Q 6 H PRF IRRITABLE BOWEL SYNDROME dicyclomine 10 mg capsule TK 1 C PO Q 6 H PRF IRRITABLE BOWEL SYNDROME completed dicyclomine hydrochloride 10 MG Oral Capsule ETHAN ([facility]) Acetaminophen 500 MG Oral Tablet acetami nophen 500 mg tablet TAKE 2 TABS BY MOUTH EVERY 6 HOURS NEEDED FOR PAIN & FEVER. acetaminophen 500 mg tablet TAKE 2 TABS BY MOUTH EVERY 6 HOURS NEEDED FOR PAIN & FEVER. completed acetaminophen 500 MG Oral Tablet PEPIN ([facility]) meloxicam 15 MG Oral Tablet meloxicam 15 mg tablet TK 1 T PO D meloxicam 15 mg tablet TK 1 T PO D completed edgar oxicam 15 MG Oral Tablet ETHAN ([facility]) NITROFURANTOIN, MACROCRYSTALS 25 MG / Ni trofurantoin, Monohydrate 75 MG Oral Capsule nitrofurantoin monohydrate/macrocrystals 100 mg capsule TK 1 C PO BID nitrofurantoin monohydrate/macrocrystals 100 mg capsule TK 1 C PO BID completed nitrofurantoin, macrocrystals 25 MG / nitrofurantoin, monohydrate 75 MG Oral Capsule PEPIN ([facility]) Levofloxacin 250 MG Oral Tablet levofloxacin 250 mg ta blet levofloxacin 250 mg tablet completed levofloxacin 25 0 MG Oral Tablet PEPIN ([facility]) Simethicone 180 MG Oral Capsule Gas Reli ef (simethicone) 180 mg capsule TK ONE C PO TID Gas Relief (simethicone) 180 mg capsule TK ONE C PO TID completed simethicone 180 MG Oral Capsule PEPIN ([facility]) NITROFURANTOIN, MACROCRYSTALS 25 MG / Ni trofurantoin, Monohydrate 75 MG Oral Capsule nitrofurantoin monohydrate/macrocrystals 100 mg capsule TK 1 C PO BID nitrofurantoin monohydrate/macrocrystals 100 mg capsule TK 1 C PO BID completed nitrofurantoin, macrocrystals 25 MG / nitrofurantoin, monohydrate 75 MG Oral Capsule PEPIN ([facility]) Sertraline 25 MG Oral Tablet sertraline 25 mg tablet T K 1 T PO QD sertraline 25 mg tablet TK 1 T PO QD completed sertraline 25 MG Oral Tablet PEPIN ([facility]) Naproxen 500 MG Oral Tablet naproxen 500 mg tablet TAKE 1 TABLET BY MOUTH TWICE DAILY WITH MEALS naproxen 500 mg tablet TAKE 1 TABLET BY MOUTH TWICE DAILY WITH MEALS completed naproxen 500 MG Oral Tablet PEPIN ([facility]) Sertraline 25 MG Oral Tablet sertraline 25 mg tablet T K 1 T PO QD sertraline 25 mg tablet TK 1 T PO QD completed sertraline 25 MG Oral Tablet PEPIN ([facility]) Metronidazole 500 MG Oral Tablet metroni dazole 500 mg tablet TK 1 T PO TID FOR 7 DAYS metronidazole 500 mg tablet TK 1 T PO TID FOR 7 DAYS completed metronidazole 500 MG Oral Tablet PEPIN ([facility]) Acetaminophen 500 MG Oral Tablet acetami nophen 500 mg tablet TAKE 2 TABS BY MOUTH EVERY 6 HOURS NEEDED FOR PAIN & FEVER. acetaminophen 500 mg tablet TAKE 2 TABS BY MOUTH EVERY 6 HOURS NEEDED FOR PAIN & FEVER. completed acetaminophen 500 MG Oral Tablet ETHAN ([facility]) Simethicone 180 MG Oral Capsule Gas Reli ef (simethicone) 180 mg capsule TK ONE C PO TID Gas Relief (simethicone) 180 mg capsule TK ONE C PO TID completed simethicone 180 MG Oral Capsule PEPIN ([facility]) Lisinopril 5 MG Oral Tablet lisinopril 5 mg tablet TAKE 2 TABLETS BY MOUTH DAILY lisinopril 5 mg tablet TAKE 2 TABLETS BY MOUTH DAILY completed lisinopril 5 MG Oral Tablet PEPIN ([facility]) cefdinir 300 MG Oral Capsule cefdinir 30 0 mg capsule TAKE 1 CAPSULE BY MOUTH EVERY 12 HOURS FOR 10 DAYS cefdinir 300 mg capsule TAKE 1 CAPSULE B Y MOUTH EVERY 12 HOURS FOR 10 DAYS completed cefdinir 300 MG Oral Capsule PEPIN ([facility]) Fluconazole 150 MG Oral Tablet fluconazo le 150 mg tablet TAKE 1 TABLET BY MOUTH 1 TIME PER DAY FOR 1 DAY fluconazole 150 mg tablet TAKE 1 TABLET BY MOUTH 1 TIME PER DAY FOR 1 DAY completed flu conazole 150 MG Oral Tablet PEPIN ([facility]) Metronidazole 0.0075 MG/MG Vaginal Gel m etronidazole 0.75 % vaginal gel INSERT 1 APPLICATION VAGINALLY AT BEDTIME FOR 7 DAYS metronidazole 0.75 % vaginal gel INSERT 1 APPLICATION VAGINALLY AT BEDTIME FOR 7 DAYS completed metronidazole 0.0075 MG/MG Vaginal Gel PEPIN ([facility]) Sertraline 50 MG Oral Tablet sertraline 50 mg tablet T K 1 T PO D IN THE MORNING sertraline 50 mg tablet TK 1 T PO D IN THE MORNING completed sertraline 50 MG Oral Tablet ETHAN ([facility]) Clindamycin 300 MG Oral Capsule clindamycin HCl 300 mg capsule clindamycin HCl 300 mg capsule completed clindam ycin 300 MG Oral Capsule PEPIN ([facility]) Sertraline 25 MG Oral Tablet sertraline 25 mg tablet T K 1 T PO QD sertraline 25 mg tablet TK 1 T PO QD completed sertraline 25 MG Oral Tablet ETHAN ([facility]) Ciprofloxacin 250 MG Oral Tablet ciprofl oxacin 250 mg tablet TK 1 T PO D FOR 5 DAYS FOR SYMPTOMS OF URINARY TRACT INFECTION ciprofloxacin 250 mg tablet TK 1 T PO D FOR 5 DAYS FOR SYMPTOMS OF URINARY TRACT INFECTION completed ciprofloxacin 250 MG Oral Tablet PEPIN ([facility]) 0.5 ML dulaglutide 1.5 MG/ML Auto-Inject or [Trulicity] Trulicity 0.75 mg/0.5 mL subcutaneous pen injector INJ 0.75MG SC WEEKLY Trulicity 0.75 mg/0.5 mL subcutaneous pen injector INJ 0.75MG SC WEEKLY completed 0.5 ML dulaglutide 1.5 MG/ML Auto-Injector [Trulicity] PEPIN ([facility]) Sulfamethoxazole 800 MG / Trimethoprim 1 60 MG Oral Tablet sulfamethoxazole 800 mg-trimethoprim 160 mg tablet TAKE 1 TABLET BY MOUTH TWICE A DAY FOR 7 DAYS sulfamethoxazole 800 mg-trimethoprim 160 mg tablet TAKE 1 TABLET BY MOUTH TWICE A DAY FOR 7 DAYS completed sulfamethoxazole 800 MG / trimethoprim 160 MG Oral Tablet PEPIN ([facility]) Albuterol 0.83 MG/ML Inhalant Solution a lbuterol sulfate 2.5 mg/3 mL (0.083 %) solution for nebulization VVN Q 4 TO 6 H PRF WHZ OR SOB albuterol sulfate 2.5 mg/3 mL (0.083 %) solution for nebulization VVN Q 4 TO 6 H PRF WHZ OR SOB completed albuterol 0.83 MG/ML Inhalation Solution PEPIN ([facility]) Omeprazole 40 MG Delayed Release Oral Ca psule omeprazole 40 mg capsule,delayed release TK ONE C PO QD omeprazole 40 mg capsule,delayed release TK ONE C PO Q D completed omeprazole 40 MG Delayed Release Oral Capsule PEPIN ([facility]) Fluoxetine 10 MG Oral Capsule fluoxetine 10 mg capsule TK 1 C PO QD fluoxetine 10 mg capsule TK 1 C PO QD completed fluoxetine 10 MG Oral Capsule PEPIN ([facility]) Sertraline 25 MG Oral Tablet sertraline 25 mg tablet T K 1 T PO QD sertraline 25 mg tablet TK 1 T PO QD completed sertraline 25 MG Oral Tablet PEPIN ([facility]) pregabalin 50 MG Oral Capsule pregabalin 50 mg capsule TAKE 1 CAPSULE BY MOUTH TWICE A DAY pregabalin 50 mg capsule TAKE 1 CAPSULE BY MOUTH TWICE A DAY completed pregabalin 50 MG Ora l Capsule PEPIN ([facility]) Omeprazole 40 MG Delayed Release Oral Ca psule omeprazole 40 mg capsule,delayed release TK ONE C PO QD omeprazole 40 mg capsule,delayed release TK ONE C PO Q D completed omeprazole 40 MG Delayed Release Oral Capsule PEPIN ([facility]) Lisinopril 5 MG Oral Tablet lisinopril 5 mg tablet TAKE 2 TABLETS BY MOUTH DAILY lisinopril 5 mg tablet TAKE 2 TABLETS BY MOUTH DAILY completed lisinopril 5 MG Oral Tablet PEPIN ([facility]) Lisinopril 5 MG Oral Tablet lisinopril 5 mg tablet TK 2 TS PO D lisinopril 5 mg tablet TK 2 TS PO D completed li sinopril 5 MG Oral Tablet PEPIN ([facility]) Lactulose 667 MG/ML Oral Solution [Enulo se] Enulose 10 gram/15 mL oral solution TK 30ML PO BID FOR CONSTIPATION Enulose 10 gram/15 mL oral solution TK 3 0ML PO BID FOR CONSTIPATION completed lactulose 667 MG/ML Oral Solution [Enulose] PEPIN ([facility]) Omeprazole 40 MG Delayed Release Oral Ca psule omeprazole 40 mg capsule,delayed release TK ONE C PO QD omeprazole 40 mg capsule,delayed release TK ONE C PO Q D completed omeprazole 40 MG Delayed Release Oral Capsule PEPIN ([facility]) NITROFURANTOIN, MACROCRYSTALS 25 MG / Ni trofurantoin, Monohydrate 75 MG Oral Capsule nitrofurantoin monohydrate/macrocrystals 100 mg capsule TK 1 C PO BID nitrofurantoin monohydrate/macrocrystals 100 mg capsule TK 1 C PO BID completed nitrofurantoin, macrocrystals 25 MG / nitrofurantoin, monohydrate 75 MG Oral Capsule PEPIN ([facility]) gabapentin 800 MG Oral Tablet gabapentin 800 mg tablet TAKE 1 TABLET BY MOUTH THREE TIMES DAILY gabapentin 800 mg tablet TAKE 1 TABLET B Y MOUTH THREE TIMES DAILY completed gabapentin 800 M G Oral Tablet PEPIN ([facility]) Dicyclomine Hydrochloride 10 MG Oral Cap zahra dicyclomine 10 mg capsule TK 1 C PO Q 6 H PRF IRRITABLE BOWEL SYNDROME dicyclomine 10 mg capsule TK 1 C PO Q 6 H PRF IRRITABLE BOWEL SYNDROME completed dicyclomine hydrochloride 10 MG Oral Capsule ETHAN ([facility]) Sertraline 50 MG Oral Tablet sertraline 50 mg tablet T K 1 T PO D IN THE MORNING sertraline 50 mg tablet TK 1 T PO D IN THE MORNING completed sertraline 50 MG Oral Tablet ETHAN ([facility]) Dexamethasone 1 MG Oral Tablet dexamethasone 1 mg tabl et dexamethasone 1 mg tablet completed dexamethasone 1 MG Oral Tablet ETHAN ([facility]) gabapentin 600 MG Oral Tablet gabapentin 600 mg tablet TK 1 T PO TID gabapentin 600 mg tablet TK 1 T PO TID completed gabapentin 600 MG Oral Tablet ETHAN ([facility]) Albuterol 0.83 MG/ML Inhalant Solution a lbuterol sulfate 2.5 mg/3 mL (0.083 %) solution for nebulization VVN Q 4 TO 6 H PRF WHZ OR SOB albuterol sulfate 2.5 mg/3 mL (0.083 %) solution for nebulization VVN Q 4 TO 6 H PRF WHZ OR SOB completed albuterol 0.83 MG/ML Inhalation Solution PEPIN ([facility]) Metronidazole 0.0075 MG/MG Vaginal Gel m etronidazole 0.75 % vaginal gel INSERT 1 APPLICATION VAGINALLY AT BEDTIME FOR 7 DAYS metronidazole 0.75 % vaginal gel INSERT 1 APPLICATION VAGINALLY AT BEDTIME FOR 7 DAYS completed metronidazole 0.0075 MG/MG Vaginal Gel PEPIN ([facility]) ferrous sulfate 325 MG Oral Tablet ferrous sulfate 325 mg (65 mg iron) tablet ferrous sulfate 325 mg (65 mg iron) tablet completed ferrous sulfate 325 MG Oral Tablet ETHAN ([facility]) Levofloxacin 250 MG Oral Tablet levofloxacin 250 mg ta blet levofloxacin 250 mg tablet completed levofloxacin 25 0 MG Oral Tablet PEPIN ([facility]) Cephalexin 500 MG Oral Capsule cephalexin 500 mg capsu le cephalexin 500 mg capsule completed cephalexin 500 MG Oral Capsule PEPIN ([facility]) Metronidazole 0.0075 MG/MG Vaginal Gel m etronidazole 0.75 % vaginal gel INSERT 1 APPLICATION VAGINALLY AT BEDTIME FOR 7 DAYS metronidazole 0.75 % vaginal gel INSERT 1 APPLICATION VAGINALLY AT BEDTIME FOR 7 DAYS completed metronidazole 0.0075 MG/MG Vaginal Gel ETHAN ([facility]) gabapentin 600 MG Oral Tablet gabapentin 600 mg tablet TK 1 T PO TID gabapentin 600 mg tablet TK 1 T PO TID completed gabapentin 600 MG Oral Tablet PEPIN ([facility]) Ciprofloxacin 250 MG Oral Tablet ciprofl oxacin 250 mg tablet TK 1 T PO D FOR 5 DAYS FOR SYMPTOMS OF URINARY TRACT INFECTION ciprofloxacin 250 mg tablet TK 1 T PO D FOR 5 DAYS FOR SYMPTOMS OF URINARY TRACT INFECTION completed ciprofloxacin 250 MG Oral Tablet PEPIN ([facility]) Omeprazole 40 MG Delayed Release Oral Ca psule omeprazole 40 mg capsule,delayed release TK ONE C PO QD omeprazole 40 mg capsule,delayed release TK ONE C PO Q D completed omeprazole 40 MG Delayed Release Oral Capsule PEPIN ([facility]) Dicyclomine Hydrochloride 10 MG Oral Cap zahra dicyclomine 10 mg capsule TK 1 C PO Q 6 H PRF IRRITABLE BOWEL SYNDROME dicyclomine 10 mg capsule TK 1 C PO Q 6 H PRF IRRITABLE BOWEL SYNDROME completed dicyclomine hydrochloride 10 MG Oral Capsule PEPIN ([facility]) Metronidazole 0.0075 MG/MG Vaginal Gel m etronidazole 0.75 % vaginal gel INSERT 1 APPLICATION VAGINALLY AT BEDTIME FOR 7 DAYS metronidazole 0.75 % vaginal gel INSERT 1 APPLICATION VAGINALLY AT BEDTIME FOR 7 DAYS completed metronidazole 0.0075 MG/MG Vaginal Gel PEPIN ([facility]) gabapentin 600 MG Oral Tablet gabapentin 600 mg tablet TK 1 T PO TID gabapentin 600 mg tablet TK 1 T PO TID completed gabapentin 600 MG Oral Tablet PEPIN ([facility]) gabapentin 800 MG Oral Tablet gabapentin 800 mg tablet TAKE 1 TABLET BY MOUTH THREE TIMES DAILY gabapentin 800 mg tablet TAKE 1 TABLET B Y MOUTH THREE TIMES DAILY completed gabapentin 800 M G Oral Tablet PEPIN ([facility]) Albuterol 0.83 MG/ML Inhalant Solution a lbuterol sulfate 2.5 mg/3 mL (0.083 %) solution for nebulization VVN Q 4 TO 6 H PRF WHZ OR SOB albuterol sulfate 2.5 mg/3 mL (0.083 %) solution for nebulization VVN Q 4 TO 6 H PRF WHZ OR SOB completed albuterol 0.83 MG/ML Inhalation Solution PEPIN ([facility]) Dicyclomine Hydrochloride 10 MG Oral Cap zahra dicyclomine 10 mg capsule TK 1 C PO Q 6 H PRF IRRITABLE BOWEL SYNDROME dicyclomine 10 mg capsule TK 1 C PO Q 6 H PRF IRRITABLE BOWEL SYNDROME completed dicyclomine hydrochloride 10 MG Oral Capsule PEPIN ([facility]) Lisinopril 5 MG Oral Tablet lisinopril 5 mg tablet TAKE 2 TABLETS BY MOUTH DAILY lisinopril 5 mg tablet TAKE 2 TABLETS BY MOUTH DAILY completed lisinopril 5 MG Oral Tablet PEPIN ([facility]) Ciprofloxacin 3 MG/ML Ophthalmic Solutio n ciprofloxacin 0.3 % eye drops INSTILL 1 DROP INTO AFFECTED EYE/S 2 TIMES PER DAY FOR 5 DAYS ciprofloxacin 0.3 % eye drops INSTILL 1 DROP INTO AFFECTED EYE/S 2 TIMES PER DAY FOR 5 DAYS completed ciprofloxacin 3 MG/ML Ophthalmic Solution [facility]) gabapentin 600 MG Oral Tablet gabapentin 600 mg tablet TK 1 T PO TID gabapentin 600 mg tablet TK 1 T PO TID completed gabapentin 600 MG Oral Tablet PEPIN ([facility]) Lisinopril 5 MG Oral Tablet lisinopril 5 mg tablet TAKE 2 TABLETS BY MOUTH DAILY lisinopril 5 mg tablet TAKE 2 TABLETS BY MOUTH DAILY completed lisinopril 5 MG Oral Tablet PEPIN ([facility]) Albuterol 0.83 MG/ML Inhalant Solution a lbuterol sulfate 2.5 mg/3 mL (0.083 %) solution for nebulization VVN Q 4 TO 6 H PRF WHZ OR SOB albuterol sulfate 2.5 mg/3 mL (0.083 %) solution for nebulization VVN Q 4 TO 6 H PRF WHZ OR SOB completed albuterol 0.83 MG/ML Inhalation Solution PEPIN ([facility]) silver sulfadiazine 10 MG/ML Topical Cre am [SSD] SSD 1 % topical cream BRIANA TOPICALLY AA BID SSD 1 % topical cream BRIANA TOPICALLY AA BID completed silver sulfadiazine 10 MG/ML Top ical Cream [SSD] PEPIN ([facility]) Omeprazole 40 MG Delayed Release Oral Ca psule omeprazole 40 mg capsule,delayed release TK ONE C PO QD omeprazole 40 mg capsule,delayed release TK ONE C PO Q D completed omeprazole 40 MG Delayed Release Oral Capsule PEPIN ([facility]) cefdinir 300 MG Oral Capsule cefdinir 30 0 mg capsule TAKE 1 CAPSULE BY MOUTH EVERY 12 HOURS FOR 10 DAYS cefdinir 300 mg capsule TAKE 1 CAPSULE B Y MOUTH EVERY 12 HOURS FOR 10 DAYS completed cefdinir 300 MG Oral Capsule PEPIN ([facility]) Dicyclomine Hydrochloride 10 MG Oral Cap zahra dicyclomine 10 mg capsule TK 1 C PO Q 6 H PRF IRRITABLE BOWEL SYNDROME dicyclomine 10 mg capsule TK 1 C PO Q 6 H PRF IRRITABLE BOWEL SYNDROME completed dicyclomine hydrochloride 10 MG Oral Capsule PEPIN ([facility]) Sertraline 100 MG Oral Tablet sertraline 100 mg tablet TAKE 1 TABLET BY MOUTH DAILY sertraline 100 mg tablet TAKE 1 TABLET BY MOUTH DAILY completed sertraline 100 MG Oral Tablet AT [facility]) Ciprofloxacin 250 MG Oral Tablet ciprofl oxacin 250 mg tablet TK 1 T PO D FOR 5 DAYS FOR SYMPTOMS OF URINARY TRACT INFECTION ciprofloxacin 250 mg tablet TK 1 T PO D FOR 5 DAYS FOR SYMPTOMS OF URINARY TRACT INFECTION completed ciprofloxacin 250 MG Oral Tablet PEPIN ([facility]) Ciprofloxacin 3 MG/ML Ophthalmic Solutio n ciprofloxacin 0.3 % eye drops INSTILL 1 DROP INTO AFFECTED EYE/S 2 TIMES PER DAY FOR 5 DAYS ciprofloxacin 0.3 % eye drops INSTILL 1 DROP INTO AFFECTED EYE/S 2 TIMES PER DAY FOR 5 DAYS completed ciprofloxacin 3 MG/ML Ophthalmic Solution PEPIN ([facility]) sitagliptin 50 MG Oral Tablet [Januvia] Januvia 50 mg tablet Januvia 50 mg tablet completed sitagliptin 50 MG Oral Tablet [Januvia] [facility]) Metronidazole 500 MG Oral Tablet metroni dazole 500 mg tablet TK 1 T PO TID FOR 7 DAYS metronidazole 500 mg tablet TK 1 T PO TID FOR 7 DAYS completed metronidazole 500 MG Oral Tablet PEPIN ([facility]) Lactulose 667 MG/ML Oral Solution [Enulo se] Enulose 10 gram/15 mL oral solution TK 30ML PO BID FOR CONSTIPATION Enulose 10 gram/15 mL oral solution TK 3 0ML PO BID FOR CONSTIPATION completed lactulose 667 MG/ML Oral Solution [Enulose] PEPIN ([facility]) albuterol sulfate HFA 90 mcg/actuation a erosol inhaler INHALE 2 PUFFS BY MOUTH EVERY 4 HOURS NEEDED FOR WHEEZING OR SHORTNESS OF BREATH [id number] completed [id number] 200 ACTUAT albuterol 0.09 MG/ACTUAT Metered Dose Inhaler PEPIN ([facility]) Sertraline 25 MG Oral Tablet sertraline 25 mg tablet T K 1 T PO QD sertraline 25 mg tablet TK 1 T PO QD completed sertraline 25 MG Oral Tablet PEPIN ([facility]) cefdinir 300 MG Oral Capsule cefdinir 30 0 mg capsule TAKE 1 CAPSULE BY MOUTH EVERY 12 HOURS FOR 10 DAYS cefdinir 300 mg capsule TAKE 1 CAPSULE B Y MOUTH EVERY 12 HOURS FOR 10 DAYS completed cefdinir 300 MG Oral Capsule ETHAN ([facility]) 0.5 ML dulaglutide 1.5 MG/ML Auto-Inject or [Trulicity] Trulicity 0.75 mg/0.5 mL subcutaneous pen injector INJ 0.75MG SC WEEKLY Trulicity 0.75 mg/0.5 mL subcutaneous pen injector INJ 0.75MG SC WEEKLY completed 0.5 ML dulaglutide 1.5 MG/ML Auto-Injector [Trulicity] ETHAN ([facility]) Levofloxacin 250 MG Oral Tablet levofloxacin 250 mg ta blet levofloxacin 250 mg tablet completed levofloxacin 25 0 MG Oral Tablet PEPIN ([facility]) cefdinir 300 MG Oral Capsule cefdinir 30 0 mg capsule TAKE 1 CAPSULE BY MOUTH EVERY 12 HOURS FOR 10 DAYS cefdinir 300 mg capsule TAKE 1 CAPSULE B Y MOUTH EVERY 12 HOURS FOR 10 DAYS completed cefdinir 300 MG Oral Capsule PEPIN ([facility]) pregabalin 50 MG Oral Capsule pregabalin 50 mg capsule TAKE 1 CAPSULE BY MOUTH TWICE A DAY pregabalin 50 mg capsule TAKE 1 CAPSULE BY MOUTH TWICE A DAY completed pregabalin 50 MG Ora l Capsule PEPIN ([facility]) Ciprofloxacin 250 MG Oral Tablet ciprofl oxacin 250 mg tablet TK 1 T PO D FOR 5 DAYS FOR SYMPTOMS OF URINARY TRACT INFECTION ciprofloxacin 250 mg tablet TK 1 T PO D FOR 5 DAYS FOR SYMPTOMS OF URINARY TRACT INFECTION completed ciprofloxacin 250 MG Oral Tablet PEPIN ([facility]) 0.5 ML dulaglutide 1.5 MG/ML Auto-Inject or [Trulicity] Trulicity 0.75 mg/0.5 mL subcutaneous pen injector INJ 0.75MG SC WEEKLY Trulicity 0.75 mg/0.5 mL subcutaneous pen injector INJ 0.75MG SC WEEKLY completed 0.5 ML dulaglutide 1.5 MG/ML Auto-Injector [Trulicity] PEPIN ([facility]) Sertraline 50 MG Oral Tablet sertraline 50 mg tablet T K 1 T PO D IN THE MORNING sertraline 50 mg tablet TK 1 T PO D IN THE MORNING completed sertraline 50 MG Oral Tablet PEPIN ([facility]) Acetaminophen 500 MG Oral Tablet acetami nophen 500 mg tablet TAKE 2 TABS BY MOUTH EVERY 6 HOURS NEEDED FOR PAIN & FEVER. acetaminophen 500 mg tablet TAKE 2 TABS BY MOUTH EVERY 6 HOURS NEEDED FOR PAIN & FEVER. completed acetaminophen 500 MG Oral Tablet PEPIN ([facility]) Naproxen 500 MG Oral Tablet naproxen 500 mg tablet TAKE 1 TABLET BY MOUTH TWICE DAILY WITH MEALS naproxen 500 mg tablet TAKE 1 TABLET BY MOUTH TWICE DAILY WITH MEALS completed naproxen 500 MG Oral Tablet PE[facility] ([facility]) ferrous sulfate 325 MG Oral Tablet martina us sulfate 325 mg (65 mg iron) tablet TK 1 T PO QD ferrous sulfate 325 mg (65 mg iron) tablet TK 1 T PO QD completed ferrous sulfate 325 MG Oral Tabl et PEPIN ([facility]) Sertraline 25 MG Oral Tablet sertraline 25 mg tablet T K 1 T PO QD sertraline 25 mg tablet TK 1 T PO QD completed sertraline 25 MG Oral Tablet PEPIN ([facility]) Lisinopril 5 MG Oral Tablet lisinopril 5 mg tablet TK 2 TS PO D lisinopril 5 mg tablet TK 2 TS PO D completed li sinopril 5 MG Oral Tablet ETHAN ([facility]) Ciprofloxacin 3 MG/ML Ophthalmic Solutio n ciprofloxacin 0.3 % eye drops INSTILL 1 DROP INTO AFFECTED EYE/S 2 TIMES PER DAY FOR 5 DAYS ciprofloxacin 0.3 % eye drops INSTILL 1 DROP INTO AFFECTED EYE/S 2 TIMES PER DAY FOR 5 DAYS completed ciprofloxacin 3 MG/ML Ophthalmic Solution PEPIN ([facility]) silver sulfadiazine 10 MG/ML Topical Cre am [SSD] SSD 1 % topical cream BRIANA TOPICALLY AA BID SSD 1 % topical cream BRIANA TOPICALLY AA BID completed silver sulfadiazine 10 MG/ML Top ical Cream [SSD] PEPIN ([facility]) gabapentin 800 MG Oral Tablet gabapentin 800 mg tablet TAKE 1 TABLET BY MOUTH THREE TIMES DAILY gabapentin 800 mg tablet TAKE 1 TABLET B Y MOUTH THREE TIMES DAILY completed gabapentin 800 M G Oral Tablet PEPIN ([facility]) Metronidazole 500 MG Oral Tablet metroni dazole 500 mg tablet TK 1 T PO TID FOR 7 DAYS metronidazole 500 mg tablet TK 1 T PO TID FOR 7 DAYS completed metronidazole 500 MG Oral Tablet PEPIN ([facility]) Sertraline 25 MG Oral Tablet sertraline 25 mg tablet T K 1 T PO QD sertraline 25 mg tablet TK 1 T PO QD completed sertraline 25 MG Oral Tablet PEPIN ([facility]) Metoclopramide 10 MG Oral Tablet metoclo pramide 10 mg tablet TK 1 T PO Q 6 H PRN N metoclopramide 10 mg tablet TK 1 T PO Q 6 H PRN N completed metoclopramide 10 MG Oral Tablet PEPIN ([facility]) Lactulose 667 MG/ML Oral Solution [Enulo se] Enulose 10 gram/15 mL oral solution TK 30ML PO BID FOR CONSTIPATION Enulose 10 gram/15 mL oral solution TK 3 0ML PO BID FOR CONSTIPATION completed lactulose 667 MG/ML Oral Solution [Enulose] [facility]) Metronidazole 0.0075 MG/MG Vaginal Gel m etronidazole 0.75 % vaginal gel INSERT 1 APPLICATION VAGINALLY AT BEDTIME FOR 7 DAYS metronidazole 0.75 % vaginal gel INSERT 1 APPLICATION VAGINALLY AT BEDTIME FOR 7 DAYS completed metronidazole 0.0075 MG/MG Vaginal Gel PEPIN ([facility]) Clindamycin 300 MG Oral Capsule clindamycin HCl 300 mg capsule clindamycin HCl 300 mg capsule completed clindam ycin 300 MG Oral Capsule PEPIN ([facility]) Simethicone 180 MG Oral Capsule Gas Reli ef (simethicone) 180 mg capsule TK ONE C PO TID Gas Relief (simethicone) 180 mg capsule TK ONE C PO TID completed simethicone 180 MG Oral Capsule PEPIN ([facility]) NITROFURANTOIN, MACROCRYSTALS 25 MG / Ni trofurantoin, Monohydrate 75 MG Oral Capsule nitrofurantoin monohydrate/macrocrystals 100 mg capsule TK 1 C PO BID nitrofurantoin monohydrate/macrocrystals 100 mg capsule TK 1 C PO BID completed nitrofurantoin, macrocrystals 25 MG / nitrofurantoin, monohydrate 75 MG Oral Capsule ETHAN ([facility]) Lactulose 667 MG/ML Oral Solution [Enulo se] Enulose 10 gram/15 mL oral solution TK 30ML PO BID FOR CONSTIPATION Enulose 10 gram/15 mL oral solution TK 3 0ML PO BID FOR CONSTIPATION completed lactulose 667 MG/ML Oral Solution [Enulose] ETHAN ([facility]) Fluoxetine 10 MG Oral Capsule fluoxetine 10 mg capsule TK 1 C PO QD fluoxetine 10 mg capsule TK 1 C PO QD completed fluoxetine 10 MG Oral Capsule ETHAN ([facility]) Lisinopril 5 MG Oral Tablet lisinopril 5 mg tablet TAKE 2 TABLETS BY MOUTH DAILY lisinopril 5 mg tablet TAKE 2 TABLETS BY MOUTH DAILY completed lisinopril 5 MG Oral Tablet ETHAN ([facility]) Simethicone 180 MG Oral Capsule Gas Reli ef (simethicone) 180 mg capsule TK ONE C PO TID Gas Relief (simethicone) 180 mg capsule TK ONE C PO TID completed simethicone 180 MG Oral Capsule PEPIN ([facility]) meloxicam 15 MG Oral Tablet meloxicam 15 mg tablet TK 1 T PO D meloxicam 15 mg tablet TK 1 T PO D completed edgar oxicam 15 MG Oral Tablet PEPIN ([facility]) Albuterol 0.83 MG/ML Inhalant Solution a lbuterol sulfate 2.5 mg/3 mL (0.083 %) solution for nebulization VVN Q 4 TO 6 H PRF WHZ OR SOB albuterol sulfate 2.5 mg/3 mL (0.083 %) solution for nebulization VVN Q 4 TO 6 H PRF WHZ OR SOB completed albuterol 0.83 MG/ML Inhalation Solution PEPIN ([facility]) Ciprofloxacin 250 MG Oral Tablet ciprofl oxacin 250 mg tablet TK 1 T PO D FOR 5 DAYS FOR SYMPTOMS OF URINARY TRACT INFECTION ciprofloxacin 250 mg tablet TK 1 T PO D FOR 5 DAYS FOR SYMPTOMS OF URINARY TRACT INFECTION completed ciprofloxacin 250 MG Oral Tablet PEPIN ([facility]) Levofloxacin 250 MG Oral Tablet levofloxacin 250 mg ta blet levofloxacin 250 mg tablet completed levofloxacin 25 0 MG Oral Tablet ETHAN ([facility]) Lactulose 667 MG/ML Oral Solution [Enulo se] Enulose 10 gram/15 mL oral solution TK 30ML PO BID FOR CONSTIPATION Enulose 10 gram/15 mL oral solution TK 3 0ML PO BID FOR CONSTIPATION completed lactulose 667 MG/ML Oral Solution [Enulose] ETHAN ([facility]) Albuterol 0.83 MG/ML Inhalant Solution a lbuterol sulfate 2.5 mg/3 mL (0.083 %) solution for nebulization VVN Q 4 TO 6 H PRF WHZ OR SOB albuterol sulfate 2.5 mg/3 mL (0.083 %) solution for nebulization VVN Q 4 TO 6 H PRF WHZ OR SOB completed albuterol 0.83 MG/ML Inhalation Solution ETHAN ([facility]) Metoclopramide 10 MG Oral Tablet metoclo pramide 10 mg tablet TK 1 T PO Q 6 H PRN N metoclopramide 10 mg tablet TK 1 T PO Q 6 H PRN N completed metoclopramide 10 MG Oral Tablet ETHAN ([facility]) 0.5 ML dulaglutide 1.5 MG/ML Auto-Inject or [Trulicity] Trulicity 0.75 mg/0.5 mL subcutaneous pen injector INJ 0.75MG SC WEEKLY Trulicity 0.75 mg/0.5 mL subcutaneous pen injector INJ 0.75MG SC WEEKLY completed 0.5 ML dulaglutide 1.5 MG/ML Auto-Injector [Trulicity] ETHAN ([facility]) NITROFURANTOIN, MACROCRYSTALS 25 MG / Ni trofurantoin, Monohydrate 75 MG Oral Capsule nitrofurantoin monohydrate/macrocrystals 100 mg capsule TK 1 C PO BID nitrofurantoin monohydrate/macrocrystals 100 mg capsule TK 1 C PO BID completed nitrofurantoin, macrocrystals 25 MG / nitrofurantoin, monohydrate 75 MG Oral Capsule ETHAN ([facility]) cefdinir 300 MG Oral Capsule cefdinir 30 0 mg capsule TAKE 1 CAPSULE BY MOUTH EVERY 12 HOURS FOR 10 DAYS cefdinir 300 mg capsule TAKE 1 CAPSULE B Y MOUTH EVERY 12 HOURS FOR 10 DAYS completed cefdinir 300 MG Oral Capsule ETHAN ([facility]) Dicyclomine Hydrochloride 10 MG Oral Cap zahra dicyclomine 10 mg capsule TK 1 C PO Q 6 H PRF IRRITABLE BOWEL SYNDROME dicyclomine 10 mg capsule TK 1 C PO Q 6 H PRF IRRITABLE BOWEL SYNDROME completed dicyclomine hydrochloride 10 MG Oral Capsule ETHAN ([facility]) sitagliptin 50 MG Oral Tablet [Januvia] Januvia 50 mg tablet Januvia 50 mg tablet completed sitagliptin 50 MG Oral Tablet [Januvia] ETHAN ([facility]) Dexamethasone 1 MG Oral Tablet dexamethasone 1 mg tabl et dexamethasone 1 mg tablet completed dexamethasone 1 MG Oral Tablet PEPIN ([facility]) Fluoxetine 10 MG Oral Capsule fluoxetine 10 mg capsule TK 1 C PO QD fluoxetine 10 mg capsule TK 1 C PO QD completed fluoxetine 10 MG Oral Capsule PEPIN ([facility]) Dexamethasone 1 MG Oral Tablet dexamethasone 1 mg tabl et dexamethasone 1 mg tablet completed dexamethasone 1 MG Oral Tablet PEPIN ([facility]) gabapentin 800 MG Oral Tablet gabapentin 800 mg tablet TAKE 1 TABLET BY MOUTH THREE TIMES DAILY gabapentin 800 mg tablet TAKE 1 TABLET B Y MOUTH THREE TIMES DAILY completed gabapentin 800 M G Oral Tablet PEPIN ([facility]) Fluoxetine 10 MG Oral Capsule fluoxetine 10 mg capsule TK 1 C PO QD fluoxetine 10 mg capsule TK 1 C PO QD completed fluoxetine 10 MG Oral Capsule PEPIN ([facility]) 0.5 ML dulaglutide 3 MG/ML Auto-Injector [Trulicity] Trulicity 1.5 mg/0.5 mL subcutaneous pen injector INJECT SQ ONCE WEEKLY Trulicity 1.5 mg/0.5 mL subcutaneous pen injector INJECT SQ ONCE WEEKLY completed 0.5 ML dulaglutide 3 MG/ML Auto-Injector [Trulicity] PEPIN ([facility]) Omeprazole 40 MG Delayed Release Oral Ca psule omeprazole 40 mg capsule,delayed release TK ONE C PO QD omeprazole 40 mg capsule,delayed release TK ONE C PO Q D completed omeprazole 40 MG Delayed Release Oral Capsule PEPIN ([facility]) Glyburide 5 MG Oral Tablet glyburide 5 mg tablet glyburide 5 mg tablet completed glyburide 5 MG Oral Table t ETHAN ([facility]) NITROFURANTOIN, MACROCRYSTALS 25 MG / Ni trofurantoin, Monohydrate 75 MG Oral Capsule nitrofurantoin monohydrate/macrocrystals 100 mg capsule TK 1 C PO BID nitrofurantoin monohydrate/macrocrystals 100 mg capsule TK 1 C PO BID completed nitrofurantoin, macrocrystals 25 MG / nitrofurantoin, monohydrate 75 MG Oral Capsule ETHAN ([facility]) Sertraline 25 MG Oral Tablet sertraline 25 mg tablet T K 1 T PO QD sertraline 25 mg tablet TK 1 T PO QD completed sertraline 25 MG Oral Tablet ETHAN ([facility]) meloxicam 15 MG Oral Tablet meloxicam 15 mg tablet TK 1 T PO D meloxicam 15 mg tablet TK 1 T PO D completed edgar oxicam 15 MG Oral Tablet ETHAN ([facility]) Dicyclomine Hydrochloride 10 MG Oral Cap zahra dicyclomine 10 mg capsule TK 1 C PO Q 6 H PRF IRRITABLE BOWEL SYNDROME dicyclomine 10 mg capsule TK 1 C PO Q 6 H PRF IRRITABLE BOWEL SYNDROME completed dicyclomine hydrochloride 10 MG Oral Capsule ETHAN ([facility]) Simethicone 180 MG Oral Capsule Gas Reli ef (simethicone) 180 mg capsule TK ONE C PO TID Gas Relief (simethicone) 180 mg capsule TK ONE C PO TID completed simethicone 180 MG Oral Capsule ETHAN ([facility]) 0.5 ML dulaglutide 1.5 MG/ML Auto-Inject or [Trulicity] Trulicity 0.75 mg/0.5 mL subcutaneous pen injector INJ 0.75MG SC WEEKLY Trulicity 0.75 mg/0.5 mL subcutaneous pen injector INJ 0.75MG SC WEEKLY completed 0.5 ML dulaglutide 1.5 MG/ML Auto-Injector [Trulicity] ETHAN ([facility]) Dicyclomine Hydrochloride 10 MG Oral Cap zahra dicyclomine 10 mg capsule TK 1 C PO Q 6 H PRF IRRITABLE BOWEL SYNDROME dicyclomine 10 mg capsule TK 1 C PO Q 6 H PRF IRRITABLE BOWEL SYNDROME completed dicyclomine hydrochloride 10 MG Oral Capsule ETHAN ([facility]) Sertraline 50 MG Oral Tablet sertraline 50 mg tablet T K 1 T PO D IN THE MORNING sertraline 50 mg tablet TK 1 T PO D IN THE MORNING completed sertraline 50 MG Oral Tablet PEPIN ([facility]) Sertraline 100 MG Oral Tablet sertraline 100 mg tablet TAKE 1 TABLET BY MOUTH DAILY sertraline 100 mg tablet TAKE 1 TABLET BY MOUTH DAILY completed sertraline 100 MG Oral Tablet AT [facility]) Dicyclomine Hydrochloride 10 MG Oral Cap zahra dicyclomine 10 mg capsule TK 1 C PO Q 6 H PRF IRRITABLE BOWEL SYNDROME dicyclomine 10 mg capsule TK 1 C PO Q 6 H PRF IRRITABLE BOWEL SYNDROME completed dicyclomine hydrochloride 10 MG Oral Capsule PEPIN ([facility]) Ciprofloxacin 250 MG Oral Tablet ciprofl oxacin 250 mg tablet TK 1 T PO D FOR 5 DAYS FOR SYMPTOMS OF URINARY TRACT INFECTION ciprofloxacin 250 mg tablet TK 1 T PO D FOR 5 DAYS FOR SYMPTOMS OF URINARY TRACT INFECTION completed ciprofloxacin 250 MG Oral Tablet [facility]) albuterol sulfate HFA 90 mcg/actuation a erosol inhaler INHALE 2 PUFFS BY MOUTH EVERY 4 HOURS NEEDED FOR WHEEZING OR SHORTNESS OF BREATH [id number] completed [id number] 200 ACTUAT albuterol 0.09 MG/ACTUAT Metered Dose Inhaler PEPIN ([facility]) gabapentin 600 MG Oral Tablet gabapentin 600 mg tablet TK 1 T PO TID gabapentin 600 mg tablet TK 1 T PO TID completed gabapentin 600 MG Oral Tablet PEPIN ([facility]) Simethicone 180 MG Oral Capsule Gas Reli ef (simethicone) 180 mg capsule TK ONE C PO TID Gas Relief (simethicone) 180 mg capsule TK ONE C PO TID completed simethicone 180 MG Oral Capsule PEPIN ([facility]) Sertraline 100 MG Oral Tablet sertraline 100 mg tablet TAKE 1 TABLET BY MOUTH DAILY sertraline 100 mg tablet TAKE 1 TABLET BY MOUTH DAILY completed sertraline 100 MG Oral Tablet AT [facility]) Ciprofloxacin 3 MG/ML Ophthalmic Solutio n ciprofloxacin 0.3 % eye drops INSTILL 1 DROP INTO AFFECTED EYE/S 2 TIMES PER DAY FOR 5 DAYS ciprofloxacin 0.3 % eye drops INSTILL 1 DROP INTO AFFECTED EYE/S 2 TIMES PER DAY FOR 5 DAYS completed ciprofloxacin 3 MG/ML Ophthalmic Solution ETHAN ([facility]) Ciprofloxacin 250 MG Oral Tablet ciprofl oxacin 250 mg tablet TK 1 T PO D FOR 5 DAYS FOR SYMPTOMS OF URINARY TRACT INFECTION ciprofloxacin 250 mg tablet TK 1 T PO D FOR 5 DAYS FOR SYMPTOMS OF URINARY TRACT INFECTION completed ciprofloxacin 250 MG Oral Tablet ETHAN ([facility]) Acetaminophen 500 MG Oral Tablet acetami nophen 500 mg tablet TAKE 2 TABS BY MOUTH EVERY 6 HOURS NEEDED FOR PAIN & FEVER. acetaminophen 500 mg tablet TAKE 2 TABS BY MOUTH EVERY 6 HOURS NEEDED FOR PAIN & FEVER. completed acetaminophen 500 MG Oral Tablet ETHAN ([facility]) silver sulfadiazine 10 MG/ML Topical Cre am [SSD] SSD 1 % topical cream BRIANA TOPICALLY AA BID SSD 1 % topical cream BRIANA TOPICALLY AA BID completed silver sulfadiazine 10 MG/ML Top ical Cream [SSD] PEPIN ([facility]) ferrous sulfate 325 MG Oral Tablet martina us sulfate 325 mg (65 mg iron) tablet TK 1 T PO QD ferrous sulfate 325 mg (65 mg iron) tablet TK 1 T PO QD completed ferrous sulfate 325 MG Oral Tabl et ETHAN ([facility]) Sertraline 50 MG Oral Tablet sertraline 50 mg tablet T K 1 T PO D IN THE MORNING sertraline 50 mg tablet TK 1 T PO D IN THE MORNING completed sertraline 50 MG Oral Tablet PEPIN ([facility]) Simethicone 180 MG Oral Capsule Gas Reli ef (simethicone) 180 mg capsule TK ONE C PO TID Gas Relief (simethicone) 180 mg capsule TK ONE C PO TID completed simethicone 180 MG Oral Capsule ETHAN ([facility]) Glyburide 5 MG Oral Tablet glyburide 5 mg tablet glyburide 5 mg tablet completed glyburide 5 MG Oral Table t ETHAN ([facility]) Fluoxetine 10 MG Oral Capsule fluoxetine 10 mg capsule TK 1 C PO QD fluoxetine 10 mg capsule TK 1 C PO QD completed fluoxetine 10 MG Oral Capsule ETHAN ([facility]) Dicyclomine Hydrochloride 10 MG Oral Cap zahra dicyclomine 10 mg capsule TK 1 C PO Q 6 H PRF IRRITABLE BOWEL SYNDROME dicyclomine 10 mg capsule TK 1 C PO Q 6 H PRF IRRITABLE BOWEL SYNDROME completed dicyclomine hydrochloride 10 MG Oral Capsule ETHAN ([facility]) Ciprofloxacin 250 MG Oral Tablet ciprofl oxacin 250 mg tablet TK 1 T PO D FOR 5 DAYS FOR SYMPTOMS OF URINARY TRACT INFECTION ciprofloxacin 250 mg tablet TK 1 T PO D FOR 5 DAYS FOR SYMPTOMS OF URINARY TRACT INFECTION completed ciprofloxacin 250 MG Oral Tablet ETHAN ([facility]) Omeprazole 40 MG Delayed Release Oral Ca psule omeprazole 40 mg capsule,delayed release TK ONE C PO QD omeprazole 40 mg capsule,delayed release TK ONE C PO Q D completed omeprazole 40 MG Delayed Release Oral Capsule ETHAN ([facility]) Simethicone 180 MG Oral Capsule Gas Reli ef (simethicone) 180 mg capsule TK ONE C PO TID Gas Relief (simethicone) 180 mg capsule TK ONE C PO TID completed simethicone 180 MG Oral Capsule ETHAN ([facility]) Levofloxacin 250 MG Oral Tablet levofloxacin 250 mg ta blet levofloxacin 250 mg tablet completed levofloxacin 25 0 MG Oral Tablet ETHAN ([facility]) Metronidazole 500 MG Oral Tablet metroni dazole 500 mg tablet TK 1 T PO TID FOR 7 DAYS metronidazole 500 mg tablet TK 1 T PO TID FOR 7 DAYS completed metronidazole 500 MG Oral Tablet ETHAN ([facility]) Metronidazole 0.0075 MG/MG Vaginal Gel m etronidazole 0.75 % vaginal gel INSERT 1 APPLICATION VAGINALLY AT BEDTIME FOR 7 DAYS metronidazole 0.75 % vaginal gel INSERT 1 APPLICATION VAGINALLY AT BEDTIME FOR 7 DAYS completed metronidazole 0.0075 MG/MG Vaginal Gel ETHAN ([facility]) Fluoxetine 10 MG Oral Capsule fluoxetine 10 mg capsule TK 1 C PO QD fluoxetine 10 mg capsule TK 1 C PO QD completed fluoxetine 10 MG Oral Capsule ETHAN ([facility]) gabapentin 600 MG Oral Tablet gabapentin 600 mg tablet TK 1 T PO TID gabapentin 600 mg tablet TK 1 T PO TID completed gabapentin 600 MG Oral Tablet ETHAN ([facility]) Sertraline 50 MG Oral Tablet sertraline 50 mg tablet T K 1 T PO D IN THE MORNING sertraline 50 mg tablet TK 1 T PO D IN THE MORNING completed sertraline 50 MG Oral Tablet ETHAN ([facility]) Metronidazole 0.0075 MG/MG Vaginal Gel m etronidazole 0.75 % vaginal gel INSERT 1 APPLICATION VAGINALLY AT BEDTIME FOR 7 DAYS metronidazole 0.75 % vaginal gel INSERT 1 APPLICATION VAGINALLY AT BEDTIME FOR 7 DAYS completed metronidazole 0.0075 MG/MG Vaginal Gel PEPIN ([facility]) Sulfamethoxazole 800 MG / Trimethoprim 1 60 MG Oral Tablet sulfamethoxazole 800 mg-trimethoprim 160 mg tablet TAKE 1 TABLET BY MOUTH TWICE A DAY FOR 7 DAYS sulfamethoxazole 800 mg-trimethoprim 160 mg tablet TAKE 1 TABLET BY MOUTH TWICE A DAY FOR 7 DAYS completed sulfamethoxazole 800 MG / trimethoprim 160 MG Oral Tablet PEPIN ([facility]) Acetaminophen 500 MG Oral Tablet acetami nophen 500 mg tablet TAKE 2 TABS BY MOUTH EVERY 6 HOURS NEEDED FOR PAIN & FEVER. acetaminophen 500 mg tablet TAKE 2 TABS BY MOUTH EVERY 6 HOURS NEEDED FOR PAIN & FEVER. completed acetaminophen 500 MG Oral Tablet PEPIN ([facility]) Albuterol 0.83 MG/ML Inhalant Solution a lbuterol sulfate 2.5 mg/3 mL (0.083 %) solution for nebulization VVN Q 4 TO 6 H PRF WHZ OR SOB albuterol sulfate 2.5 mg/3 mL (0.083 %) solution for nebulization VVN Q 4 TO 6 H PRF WHZ OR SOB completed albuterol 0.83 MG/ML Inhalation Solution PEPIN ([facility]) silver sulfadiazine 10 MG/ML Topical Cre am [SSD] SSD 1 % topical cream BRIANA TOPICALLY AA BID SSD 1 % topical cream BRIANA TOPICALLY AA BID completed silver sulfadiazine 10 MG/ML Top ical Cream [SSD] PEPIN ([facility]) Omeprazole 40 MG Delayed Release Oral Ca psule omeprazole 40 mg capsule,delayed release TK ONE C PO QD omeprazole 40 mg capsule,delayed release TK ONE C PO Q D completed omeprazole 40 MG Delayed Release Oral Capsule PEPIN ([facility]) meloxicam 15 MG Oral Tablet meloxicam 15 mg tablet TK 1 T PO D meloxicam 15 mg tablet TK 1 T PO D completed edgar oxicam 15 MG Oral Tablet PEPIN ([facility]) Ciprofloxacin 3 MG/ML Ophthalmic Solutio n ciprofloxacin 0.3 % eye drops INSTILL 1 DROP INTO AFFECTED EYE/S 2 TIMES PER DAY FOR 5 DAYS ciprofloxacin 0.3 % eye drops INSTILL 1 DROP INTO AFFECTED EYE/S 2 TIMES PER DAY FOR 5 DAYS completed ciprofloxacin 3 MG/ML Ophthalmic Solution PEPIN ([facility]) gabapentin 800 MG Oral Tablet gabapentin 800 mg tablet TAKE 1 TABLET BY MOUTH THREE TIMES DAILY gabapentin 800 mg tablet TAKE 1 TABLET B Y MOUTH THREE TIMES DAILY completed gabapentin 800 M G Oral Tablet PEPIN ([facility]) Sertraline 100 MG Oral Tablet sertraline 100 mg tablet TAKE 1 TABLET BY MOUTH DAILY sertraline 100 mg tablet TAKE 1 TABLET BY MOUTH DAILY completed sertraline 100 MG Oral Tablet AT [facility] ([facility]) Sulfamethoxazole 800 MG / Trimethoprim 1 60 MG Oral Tablet sulfamethoxazole 800 mg-trimethoprim 160 mg tablet TAKE 1 TABLET BY MOUTH TWICE A DAY FOR 7 DAYS sulfamethoxazole 800 mg-trimethoprim 160 mg tablet TAKE 1 TABLET BY MOUTH TWICE A DAY FOR 7 DAYS completed sulfamethoxazole 800 MG / trimethoprim 160 MG Oral Tablet PEPIN ([facility]) Sertraline 50 MG Oral Tablet sertraline 50 mg tablet T K 1 T PO D IN THE MORNING sertraline 50 mg tablet TK 1 T PO D IN THE MORNING completed sertraline 50 MG Oral Tablet PEPIN ([facility]) canagliflozin 100 MG Oral Tablet [Invokana] Invokana 1 00 mg tablet Invokana 100 mg tablet completed canagliflozi n 100 MG Oral Tablet [Invokana] PEPIN ([facility]) Metronidazole 0.0075 MG/MG Vaginal Gel m etronidazole 0.75 % vaginal gel INSERT 1 APPLICATION VAGINALLY AT BEDTIME FOR 7 DAYS metronidazole 0.75 % vaginal gel INSERT 1 APPLICATION VAGINALLY AT BEDTIME FOR 7 DAYS completed metronidazole 0.0075 MG/MG Vaginal Gel PEPIN ([facility]) Dicyclomine Hydrochloride 10 MG Oral Cap zahra dicyclomine 10 mg capsule TK 1 C PO Q 6 H PRF IRRITABLE BOWEL SYNDROME dicyclomine 10 mg capsule TK 1 C PO Q 6 H PRF IRRITABLE BOWEL SYNDROME completed dicyclomine hydrochloride 10 MG Oral Capsule PEPIN ([facility]) meloxicam 15 MG Oral Tablet meloxicam 15 mg tablet TK 1 T PO D meloxicam 15 mg tablet TK 1 T PO D completed edgar oxicam 15 MG Oral Tablet PEPIN ([facility]) 0.5 ML dulaglutide 1.5 MG/ML Auto-Inject or [Trulicity] Trulicity 0.75 mg/0.5 mL subcutaneous pen injector INJ 0.75MG SC WEEKLY Trulicity 0.75 mg/0.5 mL subcutaneous pen injector INJ 0.75MG SC WEEKLY completed 0.5 ML dulaglutide 1.5 MG/ML Auto-Injector [Trulicity] ETHAN ([facility]) 0.5 ML dulaglutide 1.5 MG/ML Auto-Inject or [Trulicity] Trulicity 0.75 mg/0.5 mL subcutaneous pen injector INJ 0.75MG SC WEEKLY Trulicity 0.75 mg/0.5 mL subcutaneous pen injector INJ 0.75MG SC WEEKLY completed 0.5 ML dulaglutide 1.5 MG/ML Auto-Injector [Trulicity] PEPIN ([facility]) Omeprazole 40 MG Delayed Release Oral Ca psule omeprazole 40 mg capsule,delayed release TK ONE C PO QD omeprazole 40 mg capsule,delayed release TK ONE C PO Q D completed omeprazole 40 MG Delayed Release Oral Capsule ETHAN ([facility]) NITROFURANTOIN, MACROCRYSTALS 25 MG / Ni trofurantoin, Monohydrate 75 MG Oral Capsule nitrofurantoin monohydrate/macrocrystals 100 mg capsule TK 1 C PO BID nitrofurantoin monohydrate/macrocrystals 100 mg capsule TK 1 C PO BID completed nitrofurantoin, macrocrystals 25 MG / nitrofurantoin, monohydrate 75 MG Oral Capsule PEPIN ([facility]) gabapentin 800 MG Oral Tablet gabapentin 800 mg tablet TAKE 1 TABLET BY MOUTH THREE TIMES DAILY gabapentin 800 mg tablet TAKE 1 TABLET B Y MOUTH THREE TIMES DAILY completed gabapentin 800 M G Oral Tablet ETHAN ([facility]) ferrous sulfate 325 MG Oral Tablet martina us sulfate 325 mg (65 mg iron) tablet TK 1 T PO QD ferrous sulfate 325 mg (65 mg iron) tablet TK 1 T PO QD completed ferrous sulfate 325 MG Oral Tabl et ETHAN ([facility]) gabapentin 600 MG Oral Tablet gabapentin 600 mg tablet TK 1 T PO TID gabapentin 600 mg tablet TK 1 T PO TID completed gabapentin 600 MG Oral Tablet ETHAN ([facility]) Sertraline 25 MG Oral Tablet sertraline 25 mg tablet T K 1 T PO QD sertraline 25 mg tablet TK 1 T PO QD completed sertraline 25 MG Oral Tablet ETHAN ([facility]) 0.5 ML dulaglutide 3 MG/ML Auto-Injector [Trulicity] Trulicity 1.5 mg/0.5 mL subcutaneous pen injector INJECT SQ ONCE WEEKLY Trulicity 1.5 mg/0.5 mL subcutaneous pen injector INJECT SQ ONCE WEEKLY completed 0.5 ML dulaglutide 3 MG/ML Auto-Injector [Trulicity] ETHAN ([facility]) 0.5 ML dulaglutide 1.5 MG/ML Auto-Inject or [Trulicity] Trulicity 0.75 mg/0.5 mL subcutaneous pen injector INJ 0.75MG SC WEEKLY Trulicity 0.75 mg/0.5 mL subcutaneous pen injector INJ 0.75MG SC WEEKLY completed 0.5 ML dulaglutide 1.5 MG/ML Auto-Injector [Trulicity] ETHAN ([facility]) albuterol sulfate HFA 90 mcg/actuation a erosol inhaler INHALE 2 PUFFS BY MOUTH EVERY 4 HOURS NEEDED FOR WHEEZING OR SHORTNESS OF BREATH [id number] completed [id number] 200 ACTUAT albuterol 0.09 MG/ACTUAT Metered Dose Inhaler ETHAN ([facility]) Clindamycin 300 MG Oral Capsule clindamycin HCl 300 mg capsule clindamycin HCl 300 mg capsule completed clindam ycin 300 MG Oral Capsule ETHAN ([facility]) NITROFURANTOIN, MACROCRYSTALS 25 MG / Ni trofurantoin, Monohydrate 75 MG Oral Capsule nitrofurantoin monohydrate/macrocrystals 100 mg capsule TK 1 C PO BID nitrofurantoin monohydrate/macrocrystals 100 mg capsule TK 1 C PO BID completed nitrofurantoin, macrocrystals 25 MG / nitrofurantoin, monohydrate 75 MG Oral Capsule ETHAN ([facility]) Dicyclomine Hydrochloride 10 MG Oral Cap zahra dicyclomine 10 mg capsule TK 1 C PO Q 6 H PRF IRRITABLE BOWEL SYNDROME dicyclomine 10 mg capsule TK 1 C PO Q 6 H PRF IRRITABLE BOWEL SYNDROME completed dicyclomine hydrochloride 10 MG Oral Capsule ETHAN ([facility]) Sertraline 100 MG Oral Tablet sertraline 100 mg tablet TAKE 1 TABLET BY MOUTH DAILY sertraline 100 mg tablet TAKE 1 TABLET BY MOUTH DAILY completed sertraline 100 MG Oral Tablet AT [facility] ([facility]) Sulfamethoxazole 800 MG / Trimethoprim 1 60 MG Oral Tablet sulfamethoxazole 800 mg-trimethoprim 160 mg tablet TAKE 1 TABLET BY MOUTH TWICE A DAY FOR 7 DAYS sulfamethoxazole 800 mg-trimethoprim 160 mg tablet TAKE 1 TABLET BY MOUTH TWICE A DAY FOR 7 DAYS completed sulfamethoxazole 800 MG / trimethoprim 160 MG Oral Tablet ETHAN ([facility]) Fluoxetine 10 MG Oral Capsule fluoxetine 10 mg capsule TK 1 C PO QD fluoxetine 10 mg capsule TK 1 C PO QD completed fluoxetine 10 MG Oral Capsule ETHAN ([facility]) pregabalin 50 MG Oral Capsule pregabalin 50 mg capsule TAKE 1 CAPSULE BY MOUTH TWICE A DAY pregabalin 50 mg capsule TAKE 1 CAPSULE BY MOUTH TWICE A DAY completed pregabalin 50 MG Ora l Capsule PEPIN ([facility]) Lisinopril 5 MG Oral Tablet lisinopril 5 mg tablet TAKE 2 TABLETS BY MOUTH DAILY lisinopril 5 mg tablet TAKE 2 TABLETS BY MOUTH DAILY completed lisinopril 5 MG Oral Tablet ETHAN ([facility]) Fluoxetine 10 MG Oral Capsule fluoxetine 10 mg capsule TK 1 C PO QD fluoxetine 10 mg capsule TK 1 C PO QD completed fluoxetine 10 MG Oral Capsule ETHAN ([facility]) Omeprazole 40 MG Delayed Release Oral Ca psule omeprazole 40 mg capsule,delayed release TK ONE C PO QD omeprazole 40 mg capsule,delayed release TK ONE C PO Q D completed omeprazole 40 MG Delayed Release Oral Capsule PEPIN ([facility]) 0.5 ML dulaglutide 1.5 MG/ML Auto-Inject or [Trulicity] Trulicity 0.75 mg/0.5 mL subcutaneous pen injector INJ 0.75MG SC WEEKLY Trulicity 0.75 mg/0.5 mL subcutaneous pen injector INJ 0.75MG SC WEEKLY completed 0.5 ML dulaglutide 1.5 MG/ML Auto-Injector [Trulicity] ETHAN ([facility]) Metronidazole 0.0075 MG/MG Vaginal Gel m etronidazole 0.75 % vaginal gel INSERT 1 APPLICATION VAGINALLY AT BEDTIME FOR 7 DAYS metronidazole 0.75 % vaginal gel INSERT 1 APPLICATION VAGINALLY AT BEDTIME FOR 7 DAYS completed metronidazole 0.0075 MG/MG Vaginal Gel ETHAN ([facility]) Metronidazole 500 MG Oral Tablet metroni dazole 500 mg tablet TK 1 T PO TID FOR 7 DAYS metronidazole 500 mg tablet TK 1 T PO TID FOR 7 DAYS completed metronidazole 500 MG Oral Tablet ETHAN ([facility]) Fluoxetine 10 MG Oral Capsule fluoxetine 10 mg capsule TK 1 C PO QD fluoxetine 10 mg capsule TK 1 C PO QD completed fluoxetine 10 MG Oral Capsule ETHAN ([facility]) Metoclopramide 10 MG Oral Tablet metoclo pramide 10 mg tablet TK 1 T PO Q 6 H PRN N metoclopramide 10 mg tablet TK 1 T PO Q 6 H PRN N completed metoclopramide 10 MG Oral Tablet ETHAN ([facility]) Fluoxetine 10 MG Oral Capsule fluoxetine 10 mg capsule TK 1 C PO QD fluoxetine 10 mg capsule TK 1 C PO QD completed fluoxetine 10 MG Oral Capsule ETHAN ([facility]) Ciprofloxacin 250 MG Oral Tablet ciprofl oxacin 250 mg tablet TK 1 T PO D FOR 5 DAYS FOR SYMPTOMS OF URINARY TRACT INFECTION ciprofloxacin 250 mg tablet TK 1 T PO D FOR 5 DAYS FOR SYMPTOMS OF URINARY TRACT INFECTION completed ciprofloxacin 250 MG Oral Tablet ETHAN ([facility]) Naproxen 500 MG Oral Tablet naproxen 500 mg tablet TAKE 1 TABLET BY MOUTH TWICE DAILY WITH MEALS naproxen 500 mg tablet TAKE 1 TABLET BY MOUTH TWICE DAILY WITH MEALS completed naproxen 500 MG Oral Tablet PEPIN ([facility]) albuterol sulfate HFA 90 mcg/actuation a erosol inhaler INHALE 2 PUFFS BY MOUTH EVERY 4 HOURS NEEDED FOR WHEEZING OR SHORTNESS OF BREATH [id number] completed [id number] 200 ACTUAT albuterol 0.09 MG/ACTUAT Metered Dose Inhaler ETHAN ([facility]) Metronidazole 500 MG Oral Tablet metroni dazole 500 mg tablet TK 1 T PO TID FOR 7 DAYS metronidazole 500 mg tablet TK 1 T PO TID FOR 7 DAYS completed metronidazole 500 MG Oral Tablet ETHAN ([facility]) Sertraline 25 MG Oral Tablet sertraline 25 mg tablet T K 1 T PO QD sertraline 25 mg tablet TK 1 T PO QD completed sertraline 25 MG Oral Tablet ETHAN ([facility]) meloxicam 15 MG Oral Tablet meloxicam 15 mg tablet TK 1 T PO D meloxicam 15 mg tablet TK 1 T PO D completed edgar oxicam 15 MG Oral Tablet ETHAN ([facility]) Sulfamethoxazole 800 MG / Trimethoprim 1 60 MG Oral Tablet sulfamethoxazole 800 mg-trimethoprim 160 mg tablet TAKE 1 TABLET BY MOUTH TWICE A DAY FOR 7 DAYS sulfamethoxazole 800 mg-trimethoprim 160 mg tablet TAKE 1 TABLET BY MOUTH TWICE A DAY FOR 7 DAYS completed sulfamethoxazole 800 MG / trimethoprim 160 MG Oral Tablet ETHAN ([facility]) Simethicone 180 MG Oral Capsule Gas Reli ef (simethicone) 180 mg capsule TK ONE C PO TID Gas Relief (simethicone) 180 mg capsule TK ONE C PO TID completed simethicone 180 MG Oral Capsule PEPIN ([facility]) Metronidazole 500 MG Oral Tablet metroni dazole 500 mg tablet TK 1 T PO TID FOR 7 DAYS metronidazole 500 mg tablet TK 1 T PO TID FOR 7 DAYS completed metronidazole 500 MG Oral Tablet ETHAN ([facility]) Dicyclomine Hydrochloride 10 MG Oral Cap zahra dicyclomine 10 mg capsule TK 1 C PO Q 6 H PRF IRRITABLE BOWEL SYNDROME dicyclomine 10 mg capsule TK 1 C PO Q 6 H PRF IRRITABLE BOWEL SYNDROME completed dicyclomine hydrochloride 10 MG Oral Capsule ETHAN ([facility]) 0.5 ML dulaglutide 1.5 MG/ML Auto-Inject or [Trulicity] Trulicity 0.75 mg/0.5 mL subcutaneous pen injector INJ 0.75MG SC WEEKLY Trulicity 0.75 mg/0.5 mL subcutaneous pen injector INJ 0.75MG SC WEEKLY completed 0.5 ML dulaglutide 1.5 MG/ML Auto-Injector [Trulicity] ETHAN ([facility]) 0.5 ML dulaglutide 1.5 MG/ML Auto-Inject or [Trulicity] Trulicity 0.75 mg/0.5 mL subcutaneous pen injector INJ 0.75MG SC WEEKLY Trulicity 0.75 mg/0.5 mL subcutaneous pen injector INJ 0.75MG SC WEEKLY completed 0.5 ML dulaglutide 1.5 MG/ML Auto-Injector [Trulicity] ETHAN ([facility]) NITROFURANTOIN, MACROCRYSTALS 25 MG / Ni trofurantoin, Monohydrate 75 MG Oral Capsule nitrofurantoin monohydrate/macrocrystals 100 mg capsule nitrofurantoin monohydrate/macrocrystals 100 mg capsule completed nitrofurantoin, macrocrystals 25 MG / nitrofurantoin, monohydrate 75 MG Oral Capsule ETHAN ([facility]) Metronidazole 500 MG Oral Tablet metroni dazole 500 mg tablet TK 1 T PO TID FOR 7 DAYS metronidazole 500 mg tablet TK 1 T PO TID FOR 7 DAYS completed metronidazole 500 MG Oral Tablet ETHAN ([facility]) Insurance Providers Payer name Policy type / Coverage type Policy ID Covered democrat ID Covered democrat's relationship to yun Policy Yun Plan Information Medicaid S [id number] S [id number] [facility] [id number] S [id number] Medicaid S [id number] S [id number] Medicaid S [id number] S [id number] [facility] I [id number] Self [id number] [id number] Yana [id number] [id number] Medicaid S [id number] S [id number] [facility] Health Care Commercial Insurance Co. [id number] Self [id number] [facility] [id number] SP [id number] [facility] [id number] SP [id number] [facility] [id number] SP [id number] [facility] [id number] SP [id number] [facility] [id number] SP [id number] Managed [facility] P [id number] S [id number] Medicaid S [id number] S [id number] SELF PAY ONLY [id number] SP [id number] [facility] [id number] SP [id number] [place] O [id number] SP [id number] [place] 306/806 [id number] SP [id number] [place] 306/806 [id number] SP [id number] [facility] Medicaid Commercial [id number] Self [id number] Self Pay P UNAVAILABLE S UNAVAILA BLE [facility] P [id number] S [id number] [facility] O [id number] S [id number] PMA MANAGEMENT [facility] [id number] SP [id number] OTHER WORKERS COMPENSATION [id number] SP [id number] [facility] [id number] SP [id number] [facility] [id number] SP [id number] SELF PAY UNAVAILABLE SP UNAVAILA BLE SELF PAY [id number] SP [id number] MEDICAID [id number] SP [id number] [facility] [id number] SP [id number] [facility] [id number] SP [id number] [id number] SP [id number] MEDICAID [id number] SP [id number] [facility] [id number] S [id number] [facility] O [id number] S [id number] [facility] [id number] SP [id number] [facility] [id number] SP [id number] [facility] [id number] SP [id number] Problems, Conditions, and Diagnoses Code Display Name Description Problem Type Effective Dates Data Source(s) F43.10 Post-traumatic stress disorder, unspecif ied Post-traumatic stress disorder, unspecif Diagnosis 08/26/2020 03:38:14 PM EDT [facility] E66.9 Obesity, unspecified Obesity, unspecified Diagnosis 08/26/2020 03:38:14 PM EDT [facility] E11.69 Type 2 diabetes mellitus with other spec ified complication Type 2 diabetes mellitus with other spec Diagnosis 08/26/2020 03:38:14 PM EDT [facility] R00.2 Palpitations Palpitations Diagnosis 08/26/2020 03:38:14 P M EDT [facility] I10 Essential (primary) hypertension Essential (primary) h ypertension Diagnosis 08/26/2020 03:38:14 PM EDT [facility] lab lab Diagnosis 06/29/2020 11:21:30 AM ED [facility] E04.1 Nontoxic single thyroid nodule Nontoxic single thyroid nodule Diagnosis 06/26/2020 06:10:56 PM [facility] E66.9 Obesity, unspecified Obesity, unspecified Diagnosis 06/26/2020 06:10:17 PM [facility] E11.69 Type 2 diabetes mellitus with other spec ified complication Type 2 diabetes mellitus with other specified complication Diagnosis 06:10:17 PM [facility] 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 Other specified disorders of adrenal gland Diagnosis 06/26/2020 06:10:08 PM EDT [facility] E55.9 Vitamin D deficiency, unspecified Vitamin D defi ciency, unspecified Diagnosis 06/25/2020 02:33:11 PM [facility] I10 Essential hypertension Essential hypertension [id number] 08/26/2020 12:00:00 AM EDT [facility] R00.2 Palpitations Palpitations [id number] 08/22/2020 12:00:00 A M EDT [facility] E04.1 Thyroid nodule Thyroid nodule [id number] 06/25/2020 12:00: 00 AM EDT [facility] F43.10 PTSD (post-traumatic stress disorder) PT SD (post-traumatic stress disorder) [id number] 06/25/2020 12:00:00 AM EDT [facility] Z79.4 Long-term insulin use Long-term insulin use [id number] 06/25/2020 12:00:00 AM EDT [facility] E11.40 Diabetic neuropathy associated with type 2 diabetes mellitus Diabetic neuropathy associated with type 2 diabetes mellitus [id number] 12:00:00 AM EDT [facility] E11.69 Diabetes mellitus type 2 in obese Diabetes melli tus type 2 in obese [id number] 06/25/2020 12:00:00 AM EDT [facility] F32.9 Depression Depression [id number] 06/25/2020 12:00:00 AM ED T [facility] F41.9 Anxiety Anxiety [id number] 06/25/2020 12:00:00 AM ED T [facility] E27.8 Adrenal incidentaloma Adrenal incidentaloma [id number] 06/25/2020 12:00:00 AM EDT [facility] [id number] Gastroesophageal reflux disease without esophagitis Gastroesophageal Reflux Disease without Esophagitis Problem 02/26/2020 12:00:00 AM ES Leonard ETHAN ([facility]) [id number] Essential hypertension Essential Hypertension Problem 02/26/2020 12:00:00 AM EST ETHAN ([facility]) [id number] Gastroesophageal reflux disease without esophagitis Gastroesophageal Reflux Disease without Esophagitis Problem 02/26/2020 12:00:00 AM ES T ETHAN ([facility]) [id number] Essential hypertension Essential Hypertension Problem 02/26/2020 12:00:00 AM EST ETHAN ([facility]) [id number] Gastroesophageal reflux disease without esophagitis Gastroesophageal Reflux Disease without Esophagitis Problem 02/26/2020 12:00:00 AM ES T ETHAN ([facility]) [id number] Essential hypertension Essential Hypertension Problem 02/26/2020 12:00:00 AM EST ETHAN ([facility]) [id number] Gastroesophageal reflux disease without esophagitis Gastroesophageal Reflux Disease without Esophagitis Problem 02/26/2020 12:00:00 AM ES T ETHAN ([facility]) [id number] Essential hypertension Essential Hypertension Problem 02/26/2020 12:00:00 AM EST ETHAN ([facility]) [id number] Gastroesophageal reflux disease without esophagitis Gastroesophageal Reflux Disease without Esophagitis Problem 02/26/2020 12:00:00 AM ES T ETHAN ([facility]) [id number] Essential hypertension Essential Hypertension Problem 02/26/2020 12:00:00 AM EST ETHAN ([facility]) [id number] Gastroesophageal reflux disease without esophagitis Gastroesophageal Reflux Disease without Esophagitis Problem 02/26/2020 12:00:00 AM ES T ETHAN ([facility]) [id number] Essential hypertension Essential Hypertension Problem 02/26/2020 12:00:00 AM EST ETHAN ([facility]) [id number] Gastroesophageal reflux disease without esophagitis Gastroesophageal Reflux Disease without Esophagitis Problem 02/26/2020 12:00:00 AM ES T ETHAN ([facility]) [id number] Essential hypertension Essential Hypertension Problem 02/26/2020 12:00:00 AM EST ETHAN ([facility]) [id number] Gastroesophageal reflux disease without esophagitis Gastroesophageal Reflux Disease without Esophagitis Problem 02/26/2020 12:00:00 AM ES T ETHAN ([facility]) [id number] Essential hypertension Essential Hypertension Problem 02/26/2020 12:00:00 AM EST ETHAN ([facility]) [id number] Gastroesophageal reflux disease without esophagitis Gastroesophageal Reflux Disease without Esophagitis Problem 02/26/2020 12:00:00 AM ES T ETHAN ([facility]) [id number] Essential hypertension Essential Hypertension Problem 02/26/2020 12:00:00 AM EST ETHAN ([facility]) [id number] Gastroesophageal reflux disease without esophagitis Gastroesophageal Reflux Disease without Esophagitis Problem 02/26/2020 12:00:00 AM ES T ETHAN ([facility]) [id number] Essential hypertension Essential Hypertension Problem 02/26/2020 12:00:00 AM EST ETHAN ([facility]) [id number] Gastroesophageal reflux disease without esophagitis Gastroesophageal Reflux Disease without Esophagitis Problem 02/26/2020 12:00:00 AM ES T ETHAN ([facility]) [id number] Essential hypertension Essential Hypertension Problem 02/26/2020 12:00:00 AM EST ETHAN ([facility]) [id number] Gastroesophageal reflux disease without esophagitis Gastroesophageal Reflux Disease without Esophagitis Problem 02/26/2020 12:00:00 AM ES T ETHAN ([facility]) [id number] Essential hypertension Essential Hypertension Problem 02/26/2020 12:00:00 AM EST ETHAN ([facility]) [id number] Gastroesophageal reflux disease without esophagitis Gastroesophageal Reflux Disease without Esophagitis Problem 02/26/2020 12:00:00 AM ES T ETHAN ([facility]) [id number] Essential hypertension Essential Hypertension Problem 02/26/2020 12:00:00 AM EST ETHAN ([facility]) [id number] Gastroesophageal reflux disease without esophagitis Gastroesophageal Reflux Disease without Esophagitis Problem 02/26/2020 12:00:00 AM ERNESTO LONG ([facility]) 18505980 Essential hypertension Essential Hypertension Problem 02/26/2020 12:00:00 AM EST ETHAN ([facility]) [id number] Gastroesophageal reflux disease without esophagitis Gastroesophageal Reflux Disease without Esophagitis Problem 02/26/2020 12:00:00 AM ERNESTO LONG ([facility]) [id number] Essential hypertension Essential Hypertension Problem 02/26/2020 12:00:00 AM EST ETHAN ([facility]) 12042807 Depressive disorder Depressive Disorder Problem 1 04:44:15 PM EDT ETHAN ([facility]) 87031757 Depressive disorder Depressive Disorder Problem 1 04:44:15 PM EDT ETHAN ([facility]) 03275293 Depressive disorder Depressive Disorder Problem 1 04:44:15 PM EDT ETHAN ([facility]) 79237663 Depressive disorder Depressive Disorder Problem 1 04:44:15 PM EDT ETHAN ([facility]) 94007670 Depressive disorder Depressive Disorder Problem 1 04:44:15 PM EDT ETHAN ([facility]) 44316702 Depressive disorder Depressive Disorder Problem 1 04:44:15 PM EDT ETHAN ([facility]) 67604688 Depressive disorder Depressive Disorder Problem 1 04:44:15 PM EDT ETHAN ([facility]) 69544100 Depressive disorder Depressive Disorder Problem 1 04:44:15 PM EDT ETHAN ([facility]) 09604602 Depressive disorder Depressive Disorder Problem 1 04:44:15 PM EDT ETHAN ([facility]) 34323984 Depressive disorder Depressive Disorder Problem 1 04:44:15 PM EDT ETHAN ([facility]) 78949760 Depressive disorder Depressive Disorder Problem 1 04:44:15 PM EDT ETHAN ([facility]) 38617599 Depressive disorder Depressive Disorder Problem 1 04:44:15 PM EDT ETHAN ([facility]) 77726060 Depressive disorder Depressive Disorder Problem 1 04:44:15 PM EDT ETHAN ([facility]) 20307746 Depressive disorder Depressive Disorder Problem 1 04:44:15 PM EDT ETHAN ([facility]) 23553366 Depressive disorder Depressive Disorder Problem 1 04:44:15 PM EDT ETHAN ([facility]) 483535614 SNOMED CT Concept SNOMED CT Concept Problem 12/24 04:44:15 PM EDT ETHAN ([facility]) 82028828 Depressive disorder Depressive Disorder Problem 1 04:44:15 PM EDT ETHAN ([facility]) 530.81 Gastro-esophageal reflux disease without esophagitis Gastro-esophageal reflux disease without esophagitis 12/24/2019 10:52:08 AM ED T [facility] [id number] Finding of esophagus Finding of Esophagus Problem 12/24/2019 12:00:00 AM EDT - 04/29/2020 12:00:00 AM EST ETHAN ([facility]) 666665353 Finding of esophagus Finding of Esophagus Problem 12/24/2019 12:00:00 AM EDT - 04/29/2020 12:00:00 AM EST ETHAN ([facility]) [id number] Finding of esophagus Finding of Esophagus Problem 12/24/2019 12:00:00 AM EDT - 04/29/2020 12:00:00 AM EST ETHAN ([facility]) [id number] Finding of esophagus Finding of Esophagus Problem 12/24/2019 12:00:00 AM EDT - 04/29/2020 12:00:00 AM EST ETHAN ([facility]) [id number] Finding of esophagus Finding of Esophagus Problem 12/24/2019 12:00:00 AM EDT - 04/29/2020 12:00:00 AM EST ETHAN ([facility]) [id number] Finding of esophagus Finding of Esophagus Problem 12/24/2019 12:00:00 AM EDT - 04/29/2020 12:00:00 AM EST ETHAN ([facility]) [id number] Finding of esophagus Finding of Esophagus Problem 12/24/2019 12:00:00 AM EDT - 04/29/2020 12:00:00 AM EST ETHAN ([facility]) [id number] Finding of esophagus Finding of Esophagus Problem 12/24/2019 12:00:00 AM EDT - 04/29/2020 12:00:00 AM EST ETHAN ([facility]) 138963727 Finding of esophagus Finding of Esophagus Problem 12/24/2019 12:00:00 AM EDT - 04/29/2020 12:00:00 AM EST ETHAN ([facility]) 101577171 Finding of esophagus Finding of Esophagus Problem 12/24/2019 12:00:00 AM EDT - 04/29/2020 12:00:00 AM EST ETHAN ([facility]) [id number] Finding of esophagus Finding of Esophagus Problem 12/24/2019 12:00:00 AM EDT - 04/29/2020 12:00:00 AM EST ETHAN ([facility]) [id number] Finding of esophagus Finding of Esophagus Problem 12/24/2019 12:00:00 AM EDT - 04/29/2020 12:00:00 AM EST ETHAN ([facility]) 786.05 Dyspnea Dyspnea 12/17/2019 03:55:42 PM ED T [facility] 788.41 Increased frequency of urination Increased frequency o f urination 12/17/2019 03:55:42 PM EDT [facility] [id number] COVID-19 COVID-19 12/17/2019 03:55:42 PM ED T [facility] [id number] COVID-19 Covid-19 Problem 12/17/2019 12:0 0:00 AM EDT - 09/20/2020 12:00:00 AM EDT ETHAN ([facility]) 077456132 Dyspnea Dyspnea Problem 12/17/2019 12:00:00 AM ED T ETHAN ([facility]) 897498368 COVID-19 Covid-19 Problem 12/17/2019 12:0 0:00 AM EDT - 09/20/2020 12:00:00 AM EDT ETHAN ([facility]) 287031299 Dyspnea Dyspnea Problem 12/17/2019 12:00:00 AM ED T ETHAN ([facility]) 266940335 COVID-19 Covid-19 Problem 12/17/2019 12:0 0:00 AM EDT - 09/20/2020 12:00:00 AM EDT ETHAN ([facility]) 616409331 Dyspnea Dyspnea Problem 12/17/2019 12:00:00 AM ED T ETHAN ([facility]) 675583503 COVID-19 Covid-19 Problem 12/17/2019 12:00:00 AM ED T ETHAN ([facility]) 832203356 Dyspnea Dyspnea Problem 12/17/2019 12:00:00 AM ED T ETHAN ([facility]) 891779637 COVID-19 Covid-19 Problem 12/17/2019 12:00:00 AM ED T ETHAN ([facility]) 045044272 Dyspnea Dyspnea Problem 12/17/2019 12:00:00 AM ED T ETHAN ([facility]) 958934409 COVID-19 Covid-19 Problem 12/17/2019 12:00:00 AM ED T ETHAN ([facility]) 599293237 Dyspnea Dyspnea Problem 12/17/2019 12:00:00 AM ED T ETHAN ([facility]) 280553335 COVID-19 Covid-19 Problem 12/17/2019 12:00:00 AM ED T ETHAN ([facility]) 287977311 Dyspnea Dyspnea Problem 12/17/2019 12:00:00 AM ED T ETHAN ([facility]) 825800587 COVID-19 Covid-19 Problem 12/17/2019 12:00:00 AM ED T ETHAN ([facility]) 945036218 Dyspnea Dyspnea Problem 12/17/2019 12:00:00 AM ED T ETHAN ([facility]) 446555130 COVID-19 Covid-19 Problem 12/17/2019 12:00:00 AM ED T ETHAN ([facility]) 699725681 Dyspnea Dyspnea Problem 12/17/2019 12:00:00 AM ED T ETHAN ([facility]) 173676533 COVID-19 Covid-19 Problem 12/17/2019 12:00:00 AM ED T PEPIN ([facility]) 975927785 Dyspnea Dyspnea Problem 12/17/2019 12:00:00 AM ED T PEPIN ([facility]) 514855564 COVID-19 Covid-19 Problem 12/17/2019 12:00:00 AM ED T ETHAN ([facility]) 534774740 Dyspnea Dyspnea Problem 12/17/2019 12:00:00 AM ED T ETHAN ([facility]) 531986004 COVID-19 Covid-19 Problem 12/17/2019 12:00:00 AM ED T PEPIN ([facility]) 413801259 Dyspnea Dyspnea Problem 12/17/2019 12:00:00 AM ED T PEPIN ([facility]) 249497115 History and physical examination, pre-em ployment History and physical examination, pre-employment 11/19/2019 09:33:14 AM EDT [facility] Z76.89 Immunization status unknown Immunization status unknow n 11/19/2019 09:33:14 AM EDT [facility] V74.1 Encounter for screening for respiratory tuberculosis Encounter for screening for respiratory tuberculosis 11/19/2019 09:33:14 A M EDT [facility] V70.0 Encounter for general adult medical exam ination with abnormal findings Encounter for general adult medical examination with abnormal findings 11/19/2019 09:33:14 AM EDT [facility] 189010844 SNOMED CT Concept SNOMED CT Concept Problem 11/18 12:00:00 AM EDT - 04/29/2020 12:00:00 AM MAGNO LONG ([facility]) 173549828 Procedure by method Procedure by Method Problem 0 11/19/2019 12:00:00 AM EDT - 04/29/2020 12:00:00 AM MAGNO LONG ([facility]) [id number] Finding of Mantoux test Finding of Mantoux Test Proble m 11/19/2019 12:00:00 AM EDT - 04/29/2020 12:00:00 AM MAGNO LONG ([facility]) 648761173 SNOMED CT Concept SNOMED CT Concept Problem 11/18 12:00:00 AM EDT - 04/29/2020 12:00:00 AM EST ETHAN ([facility]) [id number] Procedure by method Procedure by Method Problem 0 11/19/2019 12:00:00 AM EDT - 04/29/2020 12:00:00 AM EST ETHAN ([facility]) [id number] Finding of Mantoux test Finding of Mantoux Test Proble m 11/19/2019 12:00:00 AM EDT - 04/29/2020 12:00:00 AM EST ETHAN ([facility]) 666711423 SNOMED CT Concept SNOMED CT Concept Problem 11/18 12:00:00 AM EDT - 04/29/2020 12:00:00 AM EST ETHAN ([facility]) 370588077 Procedure by method Procedure by Method Problem 0 11/19/2019 12:00:00 AM EDT - 04/29/2020 12:00:00 AM EST ETHAN ([facility]) [id number] Finding of Mantoux test Finding of Mantoux Test Proble 11/19/2019 12:00:00 AM EDT - 04/29/2020 12:00:00 AM EST ETHAN ([facility]) 759504988 SNOMED CT Concept SNOMED CT Concept Problem 11/18 12:00:00 AM EDT - 04/29/2020 12:00:00 AM EST ETHAN ([facility]) [id number] Procedure by method Procedure by Method Problem 0 11/19/2019 12:00:00 AM EDT - 04/29/2020 12:00:00 AM EST ETHAN ([facility]) [id number] Finding of Mantoux test Finding of Mantoux Test Proble 11/19/2019 12:00:00 AM EDT - 04/29/2020 12:00:00 AM EST ETHAN ([facility]) 990607984 SNOMED CT Concept SNOMED CT Concept Problem 11/18 12:00:00 AM EDT - 04/29/2020 12:00:00 AM EST ETHAN ([facility]) [id number] Procedure by method Procedure by Method Problem 0 11/19/2019 12:00:00 AM EDT - 04/29/2020 12:00:00 AM EST ETHAN ([facility]) [id number] Finding of Mantoux test Finding of Mantoux Test Proble 11/19/2019 12:00:00 AM EDT - 04/29/2020 12:00:00 AM EST ETHAN ([facility]) [id number] SNOMED CT Concept SNOMED CT Concept Problem 11/18 12:00:00 AM EDT - 04/29/2020 12:00:00 AM EST ETHAN ([facility]) [id number] Procedure by method Procedure by Method Problem 0 11/19/2019 12:00:00 AM EDT - 04/29/2020 12:00:00 AM EST ETHAN ([facility]) [id number] Finding of Mantoux test Finding of Mantoux Test Proble 11/19/2019 12:00:00 AM EDT - 04/29/2020 12:00:00 AM EST ETHAN ([facility]) 880030000 SNOMED CT Concept SNOMED CT Concept Problem 11/18 12:00:00 AM EDT - 04/29/2020 12:00:00 AM EST ETHAN ([facility]) [id number] Procedure by method Procedure by Method Problem 0 11/19/2019 12:00:00 AM EDT - 04/29/2020 12:00:00 AM EST ETHAN ([facility]) [id number] Finding of Mantoux test Finding of Mantoux Test Proble 11/19/2019 12:00:00 AM EDT - 04/29/2020 12:00:00 AM EST ETHAN ([facility]) [id number] SNOMED CT Concept SNOMED CT Concept Problem 11/18 12:00:00 AM EDT - 04/29/2020 12:00:00 AM EST ETHAN ([facility]) [id number] Procedure by method Procedure by Method Problem 0 11/19/2019 12:00:00 AM EDT - 04/29/2020 12:00:00 AM EST ETHAN ([facility]) [id number] Finding of Mantoux test Finding of Mantoux Test Proble 11/19/2019 12:00:00 AM EDT - 04/29/2020 12:00:00 AM EST ETHAN ([facility]) [id number] SNOMED CT Concept SNOMED CT Concept Problem 11/18 12:00:00 AM EDT - 04/29/2020 12:00:00 AM EST ETHAN ([facility]) [id number] Procedure by method Procedure by Method Problem 0 11/19/2019 12:00:00 AM EDT - 04/29/2020 12:00:00 AM EST ETHAN ([facility]) [id number] Finding of Mantoux test Finding of Mantoux Test Proble 11/19/2019 12:00:00 AM EDT - 04/29/2020 12:00:00 AM EST ETHAN ([facility]) [id number] SNOMED CT Concept SNOMED CT Concept Problem 11/18 12:00:00 AM EDT - 04/29/2020 12:00:00 AM EST ETHAN ([facility]) [id number] Procedure by method Procedure by Method Problem 0 11/19/2019 12:00:00 AM EDT - 04/29/2020 12:00:00 AM EST ETHAN ([facility]) [id number] Finding of Mantoux test Finding of Mantoux Test Proble 11/19/2019 12:00:00 AM EDT - 04/29/2020 12:00:00 AM EST ETHAN ([facility]) 611811763 SNOMED CT Concept SNOMED CT Concept Problem 11/18 12:00:00 AM EDT - 04/29/2020 12:00:00 AM EST ETHAN ([facility]) [id number] Procedure by method Procedure by Method Problem 0 11/19/2019 12:00:00 AM EDT - 04/29/2020 12:00:00 AM EST ETHAN ([facility]) [id number] Finding of Mantoux test Finding of Mantoux Test Proble 11/19/2019 12:00:00 AM EDT - 04/29/2020 12:00:00 AM MAGNO LONG ([facility]) [id number] SNOMED CT Concept SNOMED CT Concept Problem 11/18 12:00:00 AM EDT - 04/29/2020 12:00:00 AM MAGNO LONG ([facility]) [id number] Procedure by method Procedure by Method Problem 0 11/19/2019 12:00:00 AM EDT - 04/29/2020 12:00:00 AM EST ETHAN ([facility]) [id number] Finding of Mantoux test Finding of Mantoux Test Proble m 11/19/2019 12:00:00 AM EDT - 04/29/2020 12:00:00 AM MAGNO ETHAN ([facility]) 335652506 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 Problem 10/31/2019 12:00:00 AM EDT - 04/29/2020 12:00:00 AM EST ETHAN ([facility]) [id number] 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 Problem 10/31/2019 12:00:00 AM EDT - 04/29/2020 12:00:00 AM EST ETHAN ([facility]) [id number] 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 Problem 10/31/2019 12:00:00 AM EDT - 04/29/2020 12:00:00 AM EST ETHAN ([facility]) [id number] 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 Problem 10/31/2019 12:00:00 AM EDT - 04/29/2020 12:00:00 AM EST ETHAN ([facility]) 527387429 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 Problem 10/31/2019 12:00:00 AM EDT - 04/29/2020 12:00:00 AM EST ETHAN ([facility]) 854162832 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 Problem 10/31/2019 12:00:00 AM EDT - 04/29/2020 12:00:00 AM EST ETHAN ([facility]) [id number] 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 Problem 10/31/2019 12:00:00 AM EDT - 04/29/2020 12:00:00 AM EST ETHAN ([facility]) [id number] 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 Problem 10/31/2019 12:00:00 AM EDT - 04/29/2020 12:00:00 AM EST ETHAN ([facility]) [id number] 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 Problem 10/31/2019 12:00:00 AM EDT - 04/29/2020 12:00:00 AM EST ETHAN ([facility]) [id number] 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 Problem 10/31/2019 12:00:00 AM EDT - 04/29/2020 12:00:00 AM EST ETHAN ([facility]) [id number] 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 Problem 10/31/2019 12:00:00 AM EDT - 04/29/2020 12:00:00 AM EST ETHAN ([facility]) [id number] 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 Problem 10/31/2019 12:00:00 AM EDT - 04/29/2020 12:00:00 AM MAGNO ETHAN ([facility]) 956801445 Breast neoplasm screening status Breast Neoplasm Screening Status Problem 09/30/2019 12:00:00 AM EDT - 04/29/2020 12:00:00 AM ERNESTO LONG ([facility]) [id number] SNOMED CT Concept SNOMED CT Concept Problem 09/29 12:00:00 AM EDT - 02/26/2020 12:00:00 AM MAGNO ETHAN ([facility]) [id number] Screening mammography Screening Mammography Problem 09/30/2019 12:00:00 AM EDT - 02/26/2020 12:00:00 AM MAGNO LONG ([facility]) [id number] Breast neoplasm screening status Breast Neoplasm Screening Status Problem 09/30/2019 12:00:00 AM EDT - 04/29/2020 12:00:00 AM ERNESTO LONG ([facility]) [id number] SNOMED CT Concept SNOMED CT Concept Problem 09/29 12:00:00 AM EDT - 02/26/2020 12:00:00 AM EST ETHAN ([facility]) [id number] Screening mammography Screening Mammography Problem 09/30/2019 12:00:00 AM EDT - 02/26/2020 12:00:00 AM EST ETHAN ([facility]) [id number] Breast neoplasm screening status Breast Neoplasm Screening Status Problem 09/30/2019 12:00:00 AM EDT - 04/29/2020 12:00:00 AM ERNESTO LONG ([facility]) [id number] SNOMED CT Concept SNOMED CT Concept Problem 09/29 12:00:00 AM EDT - 02/26/2020 12:00:00 AM EST ETHAN ([facility]) [id number] Screening mammography Screening Mammography Problem 09/30/2019 12:00:00 AM EDT - 02/26/2020 12:00:00 AM EST ETHAN ([facility]) [id number] Breast neoplasm screening status Breast Neoplasm Screening Status Problem 09/30/2019 12:00:00 AM EDT - 04/29/2020 12:00:00 AM ERNESTO LONG ([facility]) [id number] SNOMED CT Concept SNOMED CT Concept Problem 09/29 12:00:00 AM EDT - 02/26/2020 12:00:00 AM EST ETHAN ([facility]) [id number] Screening mammography Screening Mammography Problem 09/30/2019 12:00:00 AM EDT - 02/26/2020 12:00:00 AM EST ETHAN ([facility]) [id number] Breast neoplasm screening status Breast Neoplasm Screening Status Problem 09/30/2019 12:00:00 AM EDT - 04/29/2020 12:00:00 AM ERNESTO LONG ([facility]) 149652884 SNOMED CT Concept SNOMED CT Concept Problem 09/29 12:00:00 AM EDT - 02/26/2020 12:00:00 AM EST ETHAN ([facility]) [id number] Screening mammography Screening Mammography Problem 09/30/2019 12:00:00 AM EDT - 02/26/2020 12:00:00 AM EST ETHAN ([facility]) 977181740 Breast neoplasm screening status Breast Neoplasm Screening Status Problem 09/30/2019 12:00:00 AM EDT - 04/29/2020 12:00:00 AM ERNESTO LONG ([facility]) [id number] SNOMED CT Concept SNOMED CT Concept Problem 09/29 12:00:00 AM EDT - 02/26/2020 12:00:00 AM EST ETHAN ([facility]) [id number] Screening mammography Screening Mammography Problem 09/30/2019 12:00:00 AM EDT - 02/26/2020 12:00:00 AM EST ETHAN ([facility]) 198292713 Breast neoplasm screening status Breast Neoplasm Screening Status Problem 09/30/2019 12:00:00 AM EDT - 04/29/2020 12:00:00 AM ERNESTO LONG ([facility]) [id number] SNOMED CT Concept SNOMED CT Concept Problem 09/29 12:00:00 AM EDT - 02/26/2020 12:00:00 AM EST ETHAN ([facility]) [id number] Screening mammography Screening Mammography Problem 09/30/2019 12:00:00 AM EDT - 02/26/2020 12:00:00 AM EST ETHAN ([facility]) 689041978 Breast neoplasm screening status Breast Neoplasm Screening Status Problem 09/30/2019 12:00:00 AM EDT - 04/29/2020 12:00:00 AM ERNESTO LONG ([facility]) [id number] SNOMED CT Concept SNOMED CT Concept Problem 09/29 12:00:00 AM EDT - 02/26/2020 12:00:00 AM EST ETHAN ([facility]) [id number] Screening mammography Screening Mammography Problem 09/30/2019 12:00:00 AM EDT - 02/26/2020 12:00:00 AM EST ETHAN ([facility]) 559892917 Breast neoplasm screening status Breast Neoplasm Screening Status Problem 09/30/2019 12:00:00 AM EDT - 04/29/2020 12:00:00 AM ERNESTO LONG ([facility]) [id number] SNOMED CT Concept SNOMED CT Concept Problem 09/29 12:00:00 AM EDT - 02/26/2020 12:00:00 AM EST ETHAN ([facility]) [id number] Screening mammography Screening Mammography Problem 09/30/2019 12:00:00 AM EDT - 02/26/2020 12:00:00 AM EST ETHAN ([facility]) [id number] Breast neoplasm screening status Breast Neoplasm Screening Status Problem 09/30/2019 12:00:00 AM EDT - 04/29/2020 12:00:00 AM ERNESTO LONG ([facility]) 931684845 SNOMED CT Concept SNOMED CT Concept Problem 09/29 12:00:00 AM EDT - 02/26/2020 12:00:00 AM EST ETHAN ([facility]) [id number] Screening mammography Screening Mammography Problem 09/30/2019 12:00:00 AM EDT - 02/26/2020 12:00:00 AM EST ETHAN ([facility]) [id number] Breast neoplasm screening status Breast Neoplasm Screening Status Problem 09/30/2019 12:00:00 AM EDT - 04/29/2020 12:00:00 AM ERNESTO LONG ([facility]) [id number] SNOMED CT Concept SNOMED CT Concept Problem 09/29 12:00:00 AM EDT - 02/26/2020 12:00:00 AM EST ETHAN ([facility]) [id number] Screening mammography Screening Mammography Problem 09/30/2019 12:00:00 AM EDT - 02/26/2020 12:00:00 AM EST ETHAN ([facility]) [id number] Breast neoplasm screening status Breast Neoplasm Screening Status Problem 09/30/2019 12:00:00 AM EDT - 04/29/2020 12:00:00 AM ERNESTO LONG ([facility]) [id number] SNOMED CT Concept SNOMED CT Concept Problem 09/29 12:00:00 AM EDT - 02/26/2020 12:00:00 AM EST [facility]AN [facility] [facility] [id number] Screening mammography Screening Mammography Problem 09/30/2019 12:00:00 AM EDT - 02/26/2020 12:00:00 AM EST ETHAN ([facility] er) [id number] SNOMED CT Concept SNOMED CT Concept Problem 09/29 12:00:00 AM EDT - 02/26/2020 12:00:00 AM EST ETHAN ([facility] er) [id number] Screening mammography Screening Mammography Problem 09/30/2019 12:00:00 AM EDT - 02/26/2020 12:00:00 AM EST ETHAN ([facility] er) [id number] SNOMED CT Concept SNOMED CT Concept Problem 09/29 12:00:00 AM EDT - 02/26/2020 12:00:00 AM EST ETHAN ([facility] er) [id number] Screening mammography Screening Mammography Problem 09/30/2019 12:00:00 AM EDT - 02/26/2020 12:00:00 AM EST ETHAN ([facility] er) [id number] SNOMED CT Concept SNOMED CT Concept Problem 09/29 12:00:00 AM EDT - 02/26/2020 12:00:00 AM EST ETHAN ([facility] er) [id number] Screening mammography Screening Mammography Problem 09/30/2019 12:00:00 AM EDT - 02/26/2020 12:00:00 AM EST ETHAN ([facility] er) [id number] Acute cystitis Acute Cystitis Problem 09/25/2019 12:00:00 AM EDT - 02/26/2020 12:00:00 AM EST ETHAN ([facility] er) [id number] Acute cystitis Acute Cystitis Problem 09/25/2019 12:00:00 AM EDT - 02/26/2020 12:00:00 AM EST ETHAN ([facility] er) [id number] Acute cystitis Acute Cystitis Problem 09/25/2019 12:00:00 AM EDT - 02/26/2020 12:00:00 AM EST ETHAN ([facility] er) [id number] Acute cystitis Acute Cystitis Problem 09/25/2019 12:00:00 AM EDT - 02/26/2020 12:00:00 AM EST ETHAN ([facility] er) [id number] Acute cystitis Acute Cystitis Problem 09/25/2019 12:00:00 AM EDT - 02/26/2020 12:00:00 AM EST ETHAN ([facility] er) [id number] Acute cystitis Acute Cystitis Problem 09/25/2019 12:00:00 AM EDT - 02/26/2020 12:00:00 AM EST ETHAN ([facility] er) [id number] Acute cystitis Acute Cystitis Problem 09/25/2019 12:00:00 AM EDT - 02/26/2020 12:00:00 AM EST ETHAN ([facility] er) [id number] Acute cystitis Acute Cystitis Problem 09/25/2019 12:00:00 AM EDT - 02/26/2020 12:00:00 AM EST ETHAN ([facility] er) [id number] Acute cystitis Acute Cystitis Problem 09/25/2019 12:00:00 AM EDT - 02/26/2020 12:00:00 AM EST ETHAN ([facility] er) [id number] Acute cystitis Acute Cystitis Problem 09/25/2019 12:00:00 AM EDT - 02/26/2020 12:00:00 AM EST ETHAN ([facility] er) [id number] Acute cystitis Acute Cystitis Problem 09/25/2019 12:00:00 AM EDT - 02/26/2020 12:00:00 AM EST ETHAN ([facility] er) [id number] Acute cystitis Acute Cystitis Problem 09/25/2019 12:00:00 AM EDT - 02/26/2020 12:00:00 AM EST ETHAN ([facility] er) [id number] Acute cystitis Acute Cystitis Problem 09/25/2019 12:00:00 AM EDT - 02/26/2020 12:00:00 AM EST ETHAN ([facility] er) [id number] Acute cystitis Acute Cystitis Problem 09/25/2019 12:00:00 AM EDT - 02/26/2020 12:00:00 AM EST ETHAN ([facility] er) [id number] Acute cystitis Acute Cystitis Problem 09/25/2019 12:00:00 AM EDT - 02/26/2020 12:00:00 AM EST ETHAN ([facility] er) [id number] 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 09/22/2019 12:00:00 AM EDT - 03/31/2020 12:00:00 AM EST ETHAN ([facility]) [id number] 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 09/22/2019 12:00:00 AM EDT - 03/31/2020 12:00:00 AM EST ETHAN ([facility]) [id number] 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 09/22/2019 12:00:00 AM EDT - 03/31/2020 12:00:00 AM EST ETHAN ([facility]) [id number] 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 09/22/2019 12:00:00 AM EDT - 03/31/2020 12:00:00 AM EST ETHAN ([facility]) [id number] 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 09/22/2019 12:00:00 AM EDT - 03/31/2020 12:00:00 AM EST ETHAN ([facility]) [id number] 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 09/22/2019 12:00:00 AM EDT - 03/31/2020 12:00:00 AM EST ETHAN ([facility]) [id number] 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 09/22/2019 12:00:00 AM EDT - 03/31/2020 12:00:00 AM EST ETHAN ([facility]) [id number] 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 09/22/2019 12:00:00 AM EDT - 03/31/2020 12:00:00 AM EST ETHAN ([facility]) [id number] 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 09/22/2019 12:00:00 AM EDT - 03/31/2020 12:00:00 AM EST ETHAN ([facility]) [id number] 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 09/22/2019 12:00:00 AM EDT - 03/31/2020 12:00:00 AM EST ETHAN ([facility]) [id number] 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 09/22/2019 12:00:00 AM EDT - 03/31/2020 12:00:00 AM EST ETHAN ([facility]) [id number] 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 09/22/2019 12:00:00 AM EDT - 03/31/2020 12:00:00 AM EST ETHAN ([facility]) [id number] 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 09/22/2019 12:00:00 AM EDT - 03/31/2020 12:00:00 AM EST ETHAN ([facility]) [id number] Evaluation finding Evaluation Finding Problem 12:00:00 AM EDT - 04/29/2020 12:00:00 AM EST ETHAN ([facility] er) [id number] Evaluation finding Evaluation Finding Problem 12:00:00 AM EDT - 04/29/2020 12:00:00 AM EST ETHAN ([facility]) [id number] Evaluation finding Evaluation Finding Problem 12:00:00 AM EDT - 04/29/2020 12:00:00 AM EST ETHAN ([facility] er) [id number] Evaluation finding Evaluation Finding Problem 12:00:00 AM EDT - 04/29/2020 12:00:00 AM EST ETHAN ([facility] er) [id number] Evaluation finding Evaluation Finding Problem 12:00:00 AM EDT - 04/29/2020 12:00:00 AM EST ETHAN ([facility] er) [id number] Evaluation finding Evaluation Finding Problem 12:00:00 AM EDT - 04/29/2020 12:00:00 AM EST ETHAN ([facility] er) [id number] Evaluation finding Evaluation Finding Problem 12:00:00 AM EDT - 04/29/2020 12:00:00 AM EST ETHAN ([facility] er) [id number] Evaluation finding Evaluation Finding Problem 12:00:00 AM EDT - 04/29/2020 12:00:00 AM EST ETHAN ([facility] er) [id number] Evaluation finding Evaluation Finding Problem 12:00:00 AM EDT - 04/29/2020 12:00:00 AM EST ETHAN ([facility] er) [id number] Evaluation finding Evaluation Finding Problem 12:00:00 AM EDT - 04/29/2020 12:00:00 AM EST ETHAN ([facility] er) [id number] Evaluation finding Evaluation Finding Problem 12:00:00 AM EDT - 04/29/2020 12:00:00 AM EST ETHAN ([facility] er) [id number] Evaluation finding Evaluation Finding Problem 12:00:00 AM EDT - 04/29/2020 12:00:00 AM EST ETHAN ([facility] er) [id number] Chest pain Chest Pain Problem 05/07/2019 12:0 0:00 AM EST - 02/26/2020 12:00:00 AM EST ETHAN ([facility] er) [id number] Chest pain Chest Pain Problem 05/07/2019 12:0 0:00 AM EST - 02/26/2020 12:00:00 AM EST ETHAN ([facility] er) [id number] Chest pain Chest Pain Problem 05/07/2019 12:0 0:00 AM EST - 02/26/2020 12:00:00 AM EST ETHAN ([facility] er) [id number] Chest pain Chest Pain Problem 05/07/2019 12:0 0:00 AM EST - 02/26/2020 12:00:00 AM EST ETHAN ([facility] er) [id number] Chest pain Chest Pain Problem 05/07/2019 12:0 0:00 AM EST - 02/26/2020 12:00:00 AM EST ETHAN ([facility] er) [id number] Chest pain Chest Pain Problem 05/07/2019 12:0 0:00 AM EST - 02/26/2020 12:00:00 AM EST ETHAN ([facility] er) [id number] Chest pain Chest Pain Problem 05/07/2019 12:0 0:00 AM EST - 02/26/2020 12:00:00 AM EST ETHAN ([facility] er) [id number] Chest pain Chest Pain Problem 05/07/2019 12:0 0:00 AM EST - 02/26/2020 12:00:00 AM EST ETHAN ([facility] er) [id number] Chest pain Chest Pain Problem 05/07/2019 12:0 0:00 AM EST - 02/26/2020 12:00:00 AM EST ETHAN ([facility] er) [id number] Chest pain Chest Pain Problem 05/07/2019 12:0 0:00 AM EST - 02/26/2020 12:00:00 AM EST ETHAN ([facility] er) [id number] Chest pain Chest Pain Problem 05/07/2019 12:0 0:00 AM EST - 02/26/2020 12:00:00 AM EST ETHAN ([facility] er) [id number] Chest pain Chest Pain Problem 05/07/2019 12:0 0:00 AM EST - 02/26/2020 12:00:00 AM EST ETHAN ([facility] er) [id number] Chest pain Chest Pain Problem 05/07/2019 12:0 0:00 AM EST - 02/26/2020 12:00:00 AM EST ETHAN ([facility] er) [id number] Chest pain Chest Pain Problem 05/07/2019 12:0 0:00 AM EST - 02/26/2020 12:00:00 AM EST ETHAN ([facility] er) [id number] Chest pain Chest Pain Problem 05/07/2019 12:0 0:00 AM EST - 02/26/2020 12:00:00 AM EST ETHAN ([facility] er) [id number] Influenza vaccine needed Influenza Vaccine Needed Pro blem 04/19/2018 12:00:00 AM EST - 02/26/2020 12:00:00 AM EST ETHAN ([facility]) [id number] Influenza vaccine needed Influenza Vaccine Needed Pro blem 04/19/2018 12:00:00 AM EST - 02/26/2020 12:00:00 AM EST ETHAN ([facility]) [id number] Influenza vaccine needed Influenza Vaccine Needed Pro blem 04/19/2018 12:00:00 AM EST - 02/26/2020 12:00:00 AM EST ETHAN ([facility]) [id number] Influenza vaccine needed Influenza Vaccine Needed Pro blem 04/19/2018 12:00:00 AM EST - 02/26/2020 12:00:00 AM EST ETHAN ([facility]) [id number] Influenza vaccine needed Influenza Vaccine Needed Pro blem 04/19/2018 12:00:00 AM EST - 02/26/2020 12:00:00 AM EST ETHAN ([facility]) [id number] Influenza vaccine needed Influenza Vaccine Needed Pro blem 04/19/2018 12:00:00 AM EST - 02/26/2020 12:00:00 AM EST ETHAN ([facility]) [id number] Influenza vaccine needed Influenza Vaccine Needed Pro blem 04/19/2018 12:00:00 AM EST - 02/26/2020 12:00:00 AM EST ETHAN ([facility]) [id number] Influenza vaccine needed Influenza Vaccine Needed Pro blem 04/19/2018 12:00:00 AM EST - 02/26/2020 12:00:00 AM EST ETHAN ([facility]) [id number] Influenza vaccine needed Influenza Vaccine Needed Pro blem 04/19/2018 12:00:00 AM EST - 02/26/2020 12:00:00 AM EST ETHAN ([facility]) [id number] Influenza vaccine needed Influenza Vaccine Needed Pro blem 04/19/2018 12:00:00 AM EST - 02/26/2020 12:00:00 AM EST ETHAN ([facility]) [id number] Influenza vaccine needed Influenza Vaccine Needed Pro blem 04/19/2018 12:00:00 AM EST - 02/26/2020 12:00:00 AM EST ETHAN ([facility]) [id number] Influenza vaccine needed Influenza Vaccine Needed Pro blem 04/19/2018 12:00:00 AM EST - 02/26/2020 12:00:00 AM EST ETHAN ([facility]) [id number] Influenza vaccine needed Influenza Vaccine Needed Pro blem 04/19/2018 12:00:00 AM EST - 02/26/2020 12:00:00 AM EST ETHAN ([facility]) [id number] Influenza vaccine needed Influenza Vaccine Needed Pro blem 04/19/2018 12:00:00 AM EST - 02/26/2020 12:00:00 AM EST ETHAN ([facility]) [id number] Influenza vaccine needed Influenza Vaccine Needed Pro blem 04/19/2018 12:00:00 AM EST - 02/26/2020 12:00:00 AM EST ETHAN ([facility]) [id number] Anemia Anemia Problem 11/14/2017 12:0 0:00 AM EDT - 02/26/2020 12:00:00 AM EST ETHAN ([facility]) [id number] Anemia Anemia Problem 11/14/2017 12:0 0:00 AM EDT - 02/26/2020 12:00:00 AM EST ETHAN ([facility] er) [id number] Anemia Anemia Problem 11/14/2017 12:0 0:00 AM EDT - 02/26/2020 12:00:00 AM EST ETHAN ([facility] er) [id number] Anemia Anemia Problem 11/14/2017 12:0 0:00 AM EDT - 02/26/2020 12:00:00 AM EST ETHAN ([facility]) [id number] Anemia Anemia Problem 11/14/2017 12:0 0:00 AM EDT - 02/26/2020 12:00:00 AM EST ETHAN ([facility] er) [id number] Anemia Anemia Problem 11/14/2017 12:0 0:00 AM EDT - 02/26/2020 12:00:00 AM EST ETHAN ([facility]) [id number] Anemia Anemia Problem 11/14/2017 12:0 0:00 AM EDT - 02/26/2020 12:00:00 AM EST ETHAN ([facility]) [id number] Anemia Anemia Problem 11/14/2017 12:0 0:00 AM EDT - 02/26/2020 12:00:00 AM EST ETHAN ([facility] er) [id number] Anemia Anemia Problem 11/14/2017 12:0 0:00 AM EDT - 02/26/2020 12:00:00 AM EST ETHAN ([facility]) [id number] Anemia Anemia Problem 11/14/2017 12:0 0:00 AM EDT - 02/26/2020 12:00:00 AM EST ETHAN ([facility]) [id number] Anemia Anemia Problem 11/14/2017 12:0 0:00 AM EDT - 02/26/2020 12:00:00 AM EST ETHAN ([facility]) [id number] Anemia Anemia Problem 11/14/2017 12:0 0:00 AM EDT - 02/26/2020 12:00:00 AM EST ETHAN ([facility]) [id number] Anemia Anemia Problem 11/14/2017 12:0 0:00 AM EDT - 02/26/2020 12:00:00 AM EST ETHAN ([facility]) [id number] Anemia Anemia Problem 11/14/2017 12:0 0:00 AM EDT - 02/26/2020 12:00:00 AM EST ETHAN ([facility]) [id number] Anemia Anemia Problem 11/14/2017 12:0 0:00 AM EDT - 02/26/2020 12:00:00 AM EST ETHAN ([facility]) [id number] Clinical finding Clinical Finding Problem 018 12:00:00 AM EST - 02/26/2020 12:00:00 AM EST ETHAN ([facility]) [id number] Clinical finding Clinical Finding Problem 018 12:00:00 AM EST - 02/26/2020 12:00:00 AM EST ETHAN ([facility]) [id number] Clinical finding Clinical Finding Problem 018 12:00:00 AM EST - 02/26/2020 12:00:00 AM EST ETHAN ([facility]) [id number] Clinical finding Clinical Finding Problem 018 12:00:00 AM EST - 02/26/2020 12:00:00 AM EST ETHAN ([facility]) [id number] Clinical finding Clinical Finding Problem 018 12:00:00 AM EST - 02/26/2020 12:00:00 AM EST ETHAN ([facility]) [id number] Clinical finding Clinical Finding Problem 018 12:00:00 AM EST - 02/26/2020 12:00:00 AM EST ETHAN ([facility]) [id number] Clinical finding Clinical Finding Problem 018 12:00:00 AM EST - 02/26/2020 12:00:00 AM EST ETHAN ([facility]) [id number] Clinical finding Clinical Finding Problem 018 12:00:00 AM EST - 02/26/2020 12:00:00 AM EST ETHAN ([facility]) [id number] Clinical finding Clinical Finding Problem 018 12:00:00 AM EST - 02/26/2020 12:00:00 AM EST ETHAN ([facility]) [id number] Clinical finding Clinical Finding Problem 018 12:00:00 AM EST - 02/26/2020 12:00:00 AM EST ETHAN ([facility]) [id number] Clinical finding Clinical Finding Problem 018 12:00:00 AM EST - 02/26/2020 12:00:00 AM EST ETHAN ([facility]) [id number] Clinical finding Clinical Finding Problem 018 12:00:00 AM EST - 02/26/2020 12:00:00 AM EST ETHAN ([facility]) [id number] Clinical finding Clinical Finding Problem 018 12:00:00 AM EST - 02/26/2020 12:00:00 AM EST ETHAN ([facility]) [id number] Clinical finding Clinical Finding Problem 018 12:00:00 AM EST - 02/26/2020 12:00:00 AM EST ETHAN ([facility]) [id number] Clinical finding Clinical Finding Problem 018 12:00:00 AM EST - 02/26/2020 12:00:00 AM EST ETHAN ([facility]) [id number] SNOMED CT Concept SNOMED CT Concept Problem 02/12 12:00:00 AM EST - 02/26/2020 12:00:00 AM EST ETHAN ([facility]) [id number] Screening for malignant neoplasm of cerv ix Screening for Malignant Neoplasm of Cervix Problem 02/12/2013 12:00:00 AM EST - 02/26/2020 12:00:00 AM EST ETHAN ([facility]) [id number] SNOMED CT Concept SNOMED CT Concept Problem 02/12 12:00:00 AM EST - 02/26/2020 12:00:00 AM EST ETHAN ([facility]) [id number] Screening for malignant neoplasm of cerv ix Screening for Malignant Neoplasm of Cervix Problem 02/12/2013 12:00:00 AM EST - 02/26/2020 12:00:00 AM EST ETHAN ([facility]) [id number] SNOMED CT Concept SNOMED CT Concept Problem 02/12 12:00:00 AM EST - 02/26/2020 12:00:00 AM EST ETHAN ([facility]) [id number] Screening for malignant neoplasm of cerv ix Screening for Malignant Neoplasm of Cervix Problem 02/12/2013 12:00:00 AM EST - 02/26/2020 12:00:00 AM EST ETHAN ([facility]) [id number] SNOMED CT Concept SNOMED CT Concept Problem 02/12 12:00:00 AM EST - 02/26/2020 12:00:00 AM EST ETHAN ([facility]) [id number] Screening for malignant neoplasm of cerv ix Screening for Malignant Neoplasm of Cervix Problem 02/12/2013 12:00:00 AM EST - 02/26/2020 12:00:00 AM EST ETHAN ([facility]) [id number] SNOMED CT Concept SNOMED CT Concept Problem 02/12 12:00:00 AM EST - 02/26/2020 12:00:00 AM EST ETHAN ([facility]) [id number] Screening for malignant neoplasm of cerv ix Screening for Malignant Neoplasm of Cervix Problem 02/12/2013 12:00:00 AM EST - 02/26/2020 12:00:00 AM EST ETHAN ([facility]) [id number] SNOMED CT Concept SNOMED CT Concept Problem 02/12 12:00:00 AM EST - 02/26/2020 12:00:00 AM EST ETHAN ([facility]) [id number] Screening for malignant neoplasm of cerv ix Screening for Malignant Neoplasm of Cervix Problem 02/12/2013 12:00:00 AM EST - 02/26/2020 12:00:00 AM EST ETHAN ([facility]) [id number] SNOMED CT Concept SNOMED CT Concept Problem 02/12 12:00:00 AM EST - 02/26/2020 12:00:00 AM EST ETHAN ([facility]) [id number] Screening for malignant neoplasm of cerv ix Screening for Malignant Neoplasm of Cervix Problem 02/12/2013 12:00:00 AM EST - 02/26/2020 12:00:00 AM EST ETHAN ([facility]) [id number] SNOMED CT Concept SNOMED CT Concept Problem 02/12 12:00:00 AM EST - 02/26/2020 12:00:00 AM EST ETHAN ([facility]) [id number] Screening for malignant neoplasm of cerv ix Screening for Malignant Neoplasm of Cervix Problem 02/12/2013 12:00:00 AM EST - 02/26/2020 12:00:00 AM EST ETHAN ([facility]) [id number] SNOMED CT Concept SNOMED CT Concept Problem 02/12 12:00:00 AM EST - 02/26/2020 12:00:00 AM EST ETHNA ([facility]) [id number] Screening for malignant neoplasm of cerv ix Screening for Malignant Neoplasm of Cervix Problem 02/12/2013 12:00:00 AM EST - 02/26/2020 12:00:00 AM EST ETHAN ([facility]) [id number] SNOMED CT Concept SNOMED CT Concept Problem 02/12 12:00:00 AM EST - 02/26/2020 12:00:00 AM EST ETHAN ([facility]) [id number] Screening for malignant neoplasm of cerv ix Screening for Malignant Neoplasm of Cervix Problem 02/12/2013 12:00:00 AM EST - 02/26/2020 12:00:00 AM EST ETHAN ([facility]) [id number] SNOMED CT Concept SNOMED CT Concept Problem 02/12 12:00:00 AM EST - 02/26/2020 12:00:00 AM EST ETHAN ([facility]) [id number] Screening for malignant neoplasm of cerv ix Screening for Malignant Neoplasm of Cervix Problem 02/12/2013 12:00:00 AM EST - 02/26/2020 12:00:00 AM EST ETHAN ([facility]) [id number] SNOMED CT Concept SNOMED CT Concept Problem 02/12 12:00:00 AM EST - 02/26/2020 12:00:00 AM EST ETHAN ([facility]) [id number] Screening for malignant neoplasm of cerv ix Screening for Malignant Neoplasm of Cervix Problem 02/12/2013 12:00:00 AM EST - 02/26/2020 12:00:00 AM EST ETHAN ([facility]) [id number] SNOMED CT Concept SNOMED CT Concept Problem 02/12 12:00:00 AM EST - 02/26/2020 12:00:00 AM EST ETHAN ([facility]) [id number] Screening for malignant neoplasm of cerv ix Screening for Malignant Neoplasm of Cervix Problem 02/12/2013 12:00:00 AM EST - 02/26/2020 12:00:00 AM EST ETHAN ([facility]) [id number] SNOMED CT Concept SNOMED CT Concept Problem 02/12 12:00:00 AM EST - 02/26/2020 12:00:00 AM EST ETHAN ([facility]) [id number] Screening for malignant neoplasm of cerv ix Screening for Malignant Neoplasm of Cervix Problem 02/12/2013 12:00:00 AM EST - 02/26/2020 12:00:00 AM EST ETHAN ([facility]) [id number] SNOMED CT Concept SNOMED CT Concept Problem 02/12 12:00:00 AM EST - 02/26/2020 12:00:00 AM EST ETHAN ([facility]) [id number] Screening for malignant neoplasm of cerv ix Screening for Malignant Neoplasm of Cervix Problem 02/12/2013 12:00:00 AM EST - 02/26/2020 12:00:00 AM EST ETHAN ([facility]) [id number] SNOMED CT Concept SNOMED CT Concept Problem 02/25 12:00:00 AM EST ETHAN ([facility]) [id number] SNOMED CT Concept SNOMED CT Concept Problem 02/25 12:00:00 AM EST ETHAN ([facility] er) [id number] SNOMED CT Concept SNOMED CT Concept Problem 02/25 12:00:00 AM EST ETHAN ([facility] er) [id number] SNOMED CT Concept SNOMED CT Concept Problem 02/25 12:00:00 AM EST ETHAN ([facility] er) [id number] SNOMED CT Concept SNOMED CT Concept Problem 02/25 12:00:00 AM EST ETHAN ([facility] er) [id number] SNOM[address] CT Concept SNOMED CT Concept Problem 02/25 12:00:00 AM EST ETHAN ([facility]) [id number] SNOMED CT Concept SNOMED CT Concept Problem 02/25 12:00:00 AM EST ETHAN ([facility] er) [id number] SNOMED CT Concept SNOMED CT Concept Problem 02/25 12:00:00 AM EST ETHAN ([facility] er) [id number] SNOMED CT Concept SNOMED CT Concept Problem 02/25 12:00:00 AM EST ETHAN ([facility] er) [id number] SNOMED CT Concept SNOMED CT Concept Problem 02/25 12:00:00 AM EST ETHAN ([facility] er) [id number] SNOMED CT Concept SNOMED CT Concept Problem 02/25 12:00:00 AM EST ETHAN ([facility] er) [id number] SNOMED CT Concept SNOMED CT Concept Problem 02/25 12:00:00 AM EST ETHAN ([facility] er) [id number] SNOMED CT Concept SNOMED CT Concept Problem 02/25 12:00:00 AM EST ETHAN ([facility] er) [id number] SNOMED CT Concept SNOMED CT Concept Problem 02/25 12:00:00 AM EST ETHAN ([facility] er) [id number] SNOMED CT Concept SNOMED CT Concept Problem 02/25 12:00:00 AM MAGNO LONG ([facility] er) Surgeries/Procedures Procedure Description Date Indications Data Source(s) ECG ROUTINE ECG W/LEAST 12 LDS W/I&R <td>POCT AMB EKG</td><td>Routine</td><td>08/26/2020 4:21 PM EDT</td><td> Palpitations</td><td> </td> 08/26/2020 04:21:00 PM EDT Palpitations [facility] Palpitations SORIN THYROID STUDY <td>SORIN THYROID STUDY</td ><td>Routine</td><td>06/25/2020 3:25 PM EDT</td><td> Thyroid nodule</td><td></td> 06/25/2020 03:25:00 PM EDT Thyroid nodule [facility] Thyroid nodule BLOOD COUNT COMPLETE AUTO&AUTO DIFRNTL WBC COUNT <td>C BC AND DIFFERENTIAL</td><td>Routine</td><td>06/15/2020</td><td></td><td> </td> 06/15/2020 12:00:00 AM EDT [facility] THYROID STIMULATING HORMONE TSH <td>TSH</td><td>Routine</td><td>06/15/2020</td><td></td><td> </td> 06/15/2020 12:00:00 AM EDT [facility] IRON <td>IRON</td><td>Routine</td ><td>06/15/2020</td><td></td><td> </td> 06/15/2020 12:00:00 AM EDT [facility] HEMOGLOBIN GLYCOSYLATED A1C <td>HEMOGLOBIN A1C</td><td>Routine</td><td>06/15/2020</td><td></td><td> </td> 06/15/2020 12:00:00 AM EDT [facility] FERRITIN <td>FERRITIN</td><td>Routine </td><td>06/15/2020</td><td></td><td> </td> 06/15/2020 12:00:00 AM EDT [facility] HEPATIC FUNCTION PANEL <td>HEPATIC FUNCTION PANEL</td><td>Routine</td><td>06/15/2020</td><td></td><td> </td> 06/15/2020 12:00:00 AM EDT [facility] BASIC METABOLIC PANEL CALCIUM TOTAL <td>BASIC METABOLI C PANEL</td><td>Routine</td><td>06/15/2020</td><td></td><td> </td> 06/15/2020 12:00:00 AM EDT [facility] Results ID Date Data Source [id number] 07/07/2020 06:06:41 PM [facility] Name Value Range Interpretation Code Description Data Dee Dee rce(s) Supporting Document(s) Cortisol [Mass/volume] in Saliva (oral fluid) 0.140 ug/dL [facility] [place] (NOTE)This test was developed and its pe rformance characteristicsdetermined by [facility]. It has not been cleared or approvedby the Food and Drug Administration.Reference Range:Children and Adults:8:00a.m.: 0.025 - 0.600Noon: <0.010 - 0.3304:00p.m.: 0.010 - 0.200Midnight: <0.010 - 0.090Performed At: [facility] [id number] [place], [place] [id number] Brian F MD Ph:[phone] ID Date Data Source [id number] 06/29/2020 02:36:03 PM [facility] Name Value Range Interpretation Code Description Data Dee Dee rce(s) Supporting Document(s) Microalbumin [Mass/volume] in Urine 53.9 mg/L [facility] [place] Creatinine [Mass/volume] in Urine 32.2 mg/dl [facility] Albumin/Creatinine [Mass Ratio] in Urine 167.4 ug/mg creat <20.[address] [facility] ID Date Data Source [id number] 07/07/2020 06:06:40 PM [facility] Name Value Range Interpretation Code Description Data Dee Dee rce(s) Supporting Document(s) Cortisol [Mass/volume] in Saliva (oral fluid) 0.127 ug/dL [facility] [place] (NOTE)This test was developed and its pe rformance characteristicsdetermined by [facility]. It has not been cleared or approvedby the Food and Drug Administration.Reference Range:Children and Adults:8:00a.m.: 0.025 - 0.600Noon: <0.010 - 0.3304:00p.m.: 0.010 - 0.200Midnight: <0.010 - 0.090Performed At: [facility] [id number] [place], [place] [id number] Blanchard MD Ph:[phone] ID Date Data Source [id number] 07/05/2020 08:06:19 PM [facility] Name Value Range Interpretation Code Description Data Dee Dee rce(s) Supporting Document(s) Normetanephrine [Mass/volume] in Serum or Plasma 45.3 pg/mL 0.0-125.8 [facility] [place] (NOTE)This test was developed and its pe rformance characteristicsdetermined by [facility]. It has not been cleared or approvedby the Food and Drug Administration. Metanephrine Free [Mass/volume] in Serum or Plasma 12.0 pg/mL 0.0-88. 0 [facility] [place] (NOTE)This test was developed and its pe rformance characteristicsdetermined by [facility]. It has not been cleared or approvedby the Food and Drug Administration.Performed At: [address] [id number] Price MD Ph:[phone] ID Date Data Source [id number] 07/06/2020 09:07:01 AM [facility] Name Value Range Interpretation Code Description Data Dee Dee rce(s) Supporting Document(s) Renin [Enzymatic activity/volume] in Plasma 15.315 ng/mL/hr 0.167-5.[address] [facility] [place] (NOTE)This test was developed and its pe rformance characteristicsdetermined by [facility]. It has not been cleared or approvedby the Food and Drug Administration.Performed At: [address] [id number] Price MD Ph:[phone] ID Date Data Source [id number] 07/01/2020 02:08:16 PM [facility] Name Value Range Interpretation Code Description Data Dee Dee rce(s) Supporting Document(s) Calcitonin [Mass/volume] in Serum or Plasma 0.0-5.0 [facility] [place] (NOTE)Siemens Oruggaulite 2000 Immunochemil uminometric assay (ICMA)Values obtained with different assay methods or kits cannot be usedinterchangeably. Results cannot be interpreted as absolute evidenceof the presence or absence of malignant disease.Performed At: [address] [id number] Price MD Ph:[phone] ID Date Data Source [id number] 07/05/2020 12:06:11 AM [facility] Name Value Range Interpretation Code Description Data Dee Dee rce(s) Supporting Document(s) Testosterone [Mass/volume] in Serum or Plasma 4.6 ng/dL [facility] [place] (NOTE) Female: Premenopausal 10.0 - 55.0 Postmenopausal 7.0 - 40.0This test was developed and its performance characteristicsdetermined by [facility]. It has not been cleared or approvedby the Food and Drug Administration. Testosterone Free [Mass/volume] in Serum or Plasma 0.8 pg/mL 0.0-4.2 [facility] [place] (NOTE)Performed At: [facility] [address] [place], [place] [id number] Price MD Ph:[phone] At: [facility] [address] [place] [id number] Falk MD Ph:[phone] ID Date Data Source [id number] 07/05/2020 06:06:[address] [facility] Value Range Interpretation Code Description Data Dee Dee rce(s) Supporting Document(s) Aldosterone [Mass/volume] in Serum or Plasma 19.3 ng/dL 0.0-30.0 [facility] [place] (NOTE)This test was developed and its pe rformance characteristicsdetermined by [facility]. It has not been cleared or approvedby the Food and Drug Administration.Performed At: [facility] [place], [place] [id number] Price MD Ph:[phone] ID Date Data Source [id number] 07/02/2020 12:06:[address] [facility] Value Range Interpretation Code Description Data Dee Dee rce(s) Supporting Document(s) Norepinephrine [Mass/volume] in Plasma 231 pg/mL 0-874 [facility] [place] Epinephrine [Mass/volume] in Plasma 0-62 [facility] [place] Dopamine [Mass/volume] in Serum or Plasma 0-48 [facility] [place] (NOTE)Performed At: [facility] [address] [place], [place] [id number] Price MD Ph:[phone] ID Date Data Source [id number] 06/28/2020 03:50:[address] [facility] Value Range Interpretation Code Description Data Dee Dee rce(s) Supporting Document(s) Cholesterol [Mass/volume] in Serum or Plasma 144 mg/dL <200 [facility] [place] Triglyceride [Mass/volume] in Serum or Plasma 298 mg/dL <[address] [facility] [place] Cholesterol in HDL [Mass/volume] in Serum or Plasma 36 mg/dL >[address] [facility] [place] Cholesterol in LDL [Mass/volume] in Serum or Plasma by calcu lation 49 mg/dL <100 [facility] [place] Cholesterol in VLDL [Mass/volume] in Serum or Plasma by calc ulation 60 mg/dl 16-[address] [facility] [place] Cholesterol non HDL [Mass/volume] in Serum or Plasma 108 mg/dL <130 [facility] ID Date Data Source [id number] 06/28/2020 03:50:[address] [facility] Value Range Interpretation Code Description Data Dee Dee rce(s) Supporting Document(s) Albumin [Mass/volume] in Serum or Plasma by Bromocresol green (BCG) dye binding method 4.0 [facility] Bil[facility].total [Mass/volume] in Serum or Plasma 0.3 mg/dL <1.2 [facility] [place] Calcium [Mass/volume] in Serum or Plasma 9.4 mg/dL 8.6-10.0 [facility] Chloride [Moles/volume] in Serum or Plasma 96 mmol/L 98-[address] [facility] [place] Creatinine [Mass/volume] in Serum or Plasma 0.50 mg/dL 0.50-0.90 [facility] [place] Glucose [Mass/volume] in Serum or Plasma 386 mg/dL 70-[address] [facility] [place] Alkaline phosphatase [Enzymatic activity/volume] in Serum or Plasma 93 U/L 35-104 [facility] Potassium [Moles/volume] in Serum or Plasma 4.6 mmol/L 3.4-5.1 [facility] Protein [Mass/volume] in Serum or Plasma 7.0 g/dL 6.4-8.3 [facility] [place] Sodium [Moles/volume] in Serum or Plasma 132 mmol/L 136-[address] [facility] [place] Aspartate aminotransferase [Enzymatic activity/volume] in Serum or Plasma 18 U/L <32 [facility] [place] Urea nitrogen [Mass/volume] in Serum or Plasma 14 mg/dL 6-20 [facility] Osmolality of Serum or Plasma by calculation 290 mosm/kg 275-300 [facility] [place] Creatinine/Urea nitrogen [Mass Ratio] in Serum or Plasma 28 [facility] Bicarbonate [Moles/volume] in Serum 22 mmol/L 22-29 [facility] Alanine aminotransferase [Enzymatic activity/volume] in Seru m or Plasma 21 U/L <33 [facility] Anion gap 3 in Serum or Plasma 15 mmol/L 8-15 [facility] Glomerular filtration rate/1.73 sq M pre dicted among non-blacks [Volume Rate/Area] in Serum or Plasma by Creatinine-based formula (MDRD) >[address] [facility] [place] Glomerular filtration rate/1.73 sq M pre dicted among blacks [Volume Rate/Area] in Serum or Plasma by Creatinine-based formula (MDRD) >60 [facility] ID Date Data Source [id number] 06/29/2020 11:42:40 AM EDT [facility] Name Value Range Interpretation Code Description Data Dee Dee rce(s) Supporting Document(s) Dehydroepiandrosterone sulfate (DHEA-S) [Mass/volume] in Serum or Plasma 77 ug/dL <340 [facility] [place] ID Date Data Source [id number] 06/26/2020 06:11:32 PM EDT [facility] Name Value Range Interpretation Code Description Data Dee Dee rce(s) Supporting Document(s) Progress Note [facility] YSCIXi2rRuGXZnZc14/UGJiyCTUvm9BhVNlzZYc0NZxhCIPjI7IbHSS6eA8sNGV9RPuJNbEhSnQaLSV1 lbm [file] uVDnBy6QSSlgNoPUJmLbZL9FWPq= ID Date Data Source [id number] 06/26/2020 06:11:27 PM EDT [facility] Name Value Range Interpretation Code Description Data Dee Dee rce(s) Supporting Document(s) Progress Note [facility] TMUKBs7dEbIMVsDw80/MXJfaADZje9YaTDndKBp5TUwkLJQgI2LyWQK2rM8eZHT9HWuYQjTaQgSlHTU2 lbm [file] Cg== ID Date Data Source [id number] 06/25/2020 05:26:14 PM EDT [facility] Name Value Range Interpretation Code Description Data Dee Dee rce(s) Supporting Document(s) Progress Note [facility] MIUAMu0fRtYMEiLq81/VDAxrXZOvo3MgSHbaMJo9WBweFJFlZ2ZzFCO4jK3bXDD2MHuRAlVmJeLtZXC0 lbm [file] Hlu1wNB+lrfjvG4dOV8D0mw/pjzAPte/card grinder helper/MC6X1WHZrxOyRlAxy0Ls2JGBiaUztXacIbhpgullYlE [file] ICAgICAgICAgICAgICAgICAgICAgICAgICAgICAgIC AgICAgICAgICAgICAgICAgICAgICAgICAgICAgICAgICAgICAgICAgICAgICAgICAgICAgICAgDQogIC AgICAgICAgICAgICAgICAgICAgICAgICAgICAgICAgICAgICAgICAgICAgICAgICAgICAgICAgICAgIC AgICAgICAgICAgICAgICAgICAgICAgICAgICAgICAg ICAgICAgDQogICAgICAgICAgICAgICAgICAgICAgICAgICAgICAgICAgICAgICAgICAgICAgICAgICAg ICAgICAgICAgICAgICAgICAgICAgICAgICAgICAgICAgICAgICAgICAgICAgICAgDQogICAgICAgICAg ICAgICAgICAgICAgICAgICAgICAgICAgICAgICAgIC AgICAgICAgICAgICAgICAgICAgICAgICAgICAgICAgICAgICAgICAgICAgICAgICAgICAgICAgICAgDQ ogICAgICAgICAgICAgICAgICAgICAgICAgICAgICAgICAgICAgICAgICAgICAgICAgICAgICAgICAgIC AgICAgICAgICAgICAgICAgICAgICAgICAgICAgICAg ICAgICAgICAgDQogICAgICAgICAgICAgICAgICAgICAgICAgICAgICAgICAgICAgICAgICAgICAgICAg ICAgICAgICAgICAgICAgICAgICAgICAgICAgICAgICAgICAgICAgICAgICAgICAgICAgDQogICAgICAg ICAgICAgICAgICAgICAgICAgICAgICAgICAgICAgIC AgICAgICAgICAgICAgICAgICAgICAgICAgICAgICAgICAgICAgICAgICAgICAgICAgICAgICAgICAgIC AgDQogICAgICAgICAgICAgICAgICAgICAgICAgICAgICAgICAgICAgICAgICAgICAgICAgICAgICAgIC AgICAgICAgICAgICAgICAgICAgICAgICAgICAgICAg ICAgICAgICAgICAgDQogICAgICAgICAgICAgICAgICAgICAgICAgICAgICAgICAgICAgICAgICAgICAg ICAgICAgICAgICAgICAgICAgICAgICAgICAgICAgICAgICAgICAgICAgICAgICAgICAgICAgDQogICAg ICAgICAgICAgICAgICAgICAgICAgICAgICAgICAgIC AgICAgICAgICAgICAgICAgICAgICAgICAgICAgICAgICAgICAgICAgICAgICAgICAgICAgICAgICAgIC CyCFKcMEw4F7cmULQsHOFxQB3kDAa0Oo4+HHlDBkKqEZL0atWalS0FNE5ob9BsTSgjLFBbc7YoZUh1LE 7CYPKsOTajFA5WRTwspg4POTLiORGcxIXCk4xgXoAm SHL5GPZkSuwyKQ3SSRJpY6zhtpTwGFBdMYUUXMlaYOJXWVrgLZYQAXOyVQRfXjLjDqWdWKRbAEKbTFFY QN6LOxLdT5OwkA51JOUMUa2+KAhlzcVkWowXGjElIVPfk7OtVHm0FY9OCWHmVgpvd4EcBaToDJJUOIjq FN3LUEM2ZMKtTGQbCr7YRZMxQ826lxUxNW8DAr2XBm MeMO6cjz2GPqQnSIReTzeFFhk1PYshOR9IvAGrFAgKmn3torPzeeUKs4LhajAppPJAGWjucpLpK2xcgY gfAIIIH7vaFVZsSO7lEc5rGEZaNKRrSoUnPYUWYV1XGUJyCDXpfEDhFTOpQZZDQZ2SMAerZXD2VSQbnj IqbQBsFPyzQK2YDVUpzrYlGbVxTXUAESu+Sj4YQZ4f y2LrPAfnTWFoGX3ebv5IQVaCKlAuQ7Y6lJXrF8X4QOpxGy1URHThKVFaEfBpQLYEHMmeUX1TPD1wiaX7 QM9FzSPiFKRkUGUusJKwYSq2V10lqEDgTLtkRX4XPTT+Nasir+Ps8MTQXqXDBlUHZiShIlEAGGLeZeG9Al D7SAk2XsF9JjWV53qTahahRoJOxaZD0XDK7vDVSuCA GRMX4CqLPhuC2jidUuNyRhRNGKSbTvP96woXQhLMOnAMVoVFTfUy9ORSNaQ4GqawLjoDalzmGmDATjBD DKKG4OUUeuhhZavFMqcHxePL73oPxdEP4LOi4OQeCwAF1ekz3QoUPbRe6MRASlUD7JLEYfYYRtABCrFF Q4XWUdKwPhLEtyZSTfLGQiYIZ6WSRzLCSgZE1KEqCx TCSsNtR4FaSeYVKiZYVibx8UVMLgZNTcKRQ3XRXbCDNkHLUaEQkhBBMkTNRoVWF9JWRdNEXrTX6KAcVe ATXzAGT2BnJnITNaPATnzf9IBHZtHHYwBiC8GdArIOQjWKRrFXaoSSGfODV7LLO4HHEjRHMmVO3MRjBr WXJoSXI5RwTmRVPzBQVdtu2KHRXhHAGdPMypNHVdIQ LsHTIhPBggFXEcLQY9PFM3QBRtCPNvLB6UMrArWFWeVOR0PYSiTQJjJBRupo8CTCXiTYJfVJeeYBBaZP XvCANqLAdsIYPgARW4PTn0VDJiVABoCZ4XNhUcNXSwAQGdKXZkEZHyKDNmph3SVTXuKXAmIkF0QEMfTO KtYZXzDCvvSKUgMMV5Kaa7XMMwLJGgIC7ASjQaUWDl HGaaUUlsTOUqEXGeqh0IXCJtMOMzVjC0YVWzGSCjJTHzQUmrTIYyOZV6AdO6HFLsKJCcLR2ISpJdAMSu MGa9UYDmVPHzQFCfqb1OUWAnEECwHUs1BVVeOCVsKBQeNZknRBHsXSQ2BZn8VXPmPMBpSM7ICcTdAPKc WcC4QFLvISJwXKEolx7QYSAeJSFiSId0ZMShFEIfEE QbADeeLHWzAPGmFDRuIEZoRQUxFR0MOwHfCBSwQgAwXZEgBGEnCMOjou6AWUSiNDNdURR1UvYeEAUnJD HbSTmnSGGfRRCpSwkeIXRhKCSrEI4KXoWaYEVtDmE5IeZxUBLeLYJqvo5RSFVzSKMzWdg4OvPpLIEmYG ZbJMgmVSFiBSJuOJI7ISQcIBOvNT4RUpJiLSYsBqK8 SnZrZPElMZHoqj4MNNUgKTQyANxhJOAaNHPrJLUeXSrdGVPwEIP6XPAcRSHnNTZdAH9DRmBbDEbmZUWJ Nan1CFozC0y8SEPrNS1LT1Jdm6KoHnIlPCMKFHicOT4ppfImONDcUb3FT4lGCkv8PrqbRqXwXHw3HOVr OcPwIHI4M3N1BwhcEDV0XIU5OQ4fZVNeSME9YPMeXT kzBIH5GhTbVVohUOurHWAtFhE9SHp7DeUuUJ8YVc0QJgR8ZWK5qZFnSv8SUrHpKWNEIoQnJI5GVOm= ID Date Data Source [id number] 06/25/2020 05:23:38 PM EDT [facility] Name Value Range Interpretation Code Description Data Dee Dee rce(s) Supporting Document(s) Progress Note [facility] FAECBw7lHePFFwJt15/HEGdcKWXpx4AuXAvzESo1LYtqUBIfI0KyJDQ6bU6jLVX0NTpHCrPaLaWtUSG4 lbm XjTtfJPgBbOLDeMfoXVjZnVYxiXrtseMJvHY6HcBI2ZVNbG99bPKFlJETrC7OxHVH9EAN+La4VKFEttT DhSM5IRwzF0OyidxiK2n3W/1KSRvEIWSuy6kGoLJJb1E9B+sKOhzKC1AXF1rHVIiJZhxj2D9+OV0oeEY 3rkKTGHD2ujOPw543d2UXZ8M+/z68fLIrTbw+Lj15g s+/mSTlUyX0Clvy47oE6dDnooE8k/kHwVff+JygZQITAQyZ8K3pKRj+d4fn6UaayRo0PY7znXVF5EA [file] V3rQ/0zx1/N/Boaz/LnSX+YT8e1mC+ifO/8e8R60x8Y/ jajS12Y+0D93/N3gO/PnSn+FT+l+BXqU8HUW9q2+J7yg3fbxaZLQcANAYF3R/uWPNIkI9LLXPXvvNYUd lR1QNMScURvRCvgLpsdzOQjxfk85lf5Df+0HAjGOmtUamrkWdzzmtp30nc2QdJ9ZPPCkosUegTJZkbrg Mmp2mo4HbY3Hf7YiocPo9Yvws2hv5lD/U/G4V0TDym /QoZhBUwwlu0vE1eC/S8CeSt9rFdCsV7Hd6GVlWyMTZdOO5QKgh4LmYHbyze70LYX7H3UuVphGeN+Leonidas +TT7Klngg3h1AH0I/0/AfyJ0p/80U2TFWY/Jose A/0D+QLsjJgnyeo6VO7DfR6wrPE2D0yYIvk9RIfRqW1 [file] AgICAgICAgICAgICAgICAgICAgICAgICAgICAgICAgICAgICAgICAgICAgICAgICAgICAgICAgICAgIC AgICAgICAgICAgICAgICAgICAgICAgDQogICAgICAg ICAgICAgICAgICAgICAgICAgICAgICAgICAgICAgICAgICAgICAgICAgICAgICAgICAgICAgICAgICAg ICAgICAgICAgICAgICAgICAgICAgICAgICAgICAgICAgDQogICAgICAgICAgICAgICAgICAgICAgICAg ICAgICAgICAgICAgICAgICAgICAgICAgICAgICAgIC AgICAgICAgICAgICAgICAgICAgICAgICAgICAgICAgICAgICAgICAgICAgDQogICAgICAgICAgICAgIC AgICAgICAgICAgICAgICAgICAgICAgICAgICAgICAgICAgICAgICAgICAgICAgICAgICAgICAgICAgIC AgICAgICAgICAgICAgICAgICAgICAgICAgDQogICAg ICAgICAgICAgICAgICAgICAgICAgICAgICAgICAgICAgICAgICAgICAgICAgICAgICAgICAgICAgICAg ICAgICAgICAgICAgICAgICAgICAgICAgICAgICAgICAgICAgDQogICAgICAgICAgICAgICAgICAgICAg ICAgICAgICAgICAgICAgICAgICAgICAgICAgICAgIC AgICAgICAgICAgICAgICAgICAgICAgICAgICAgICAgICAgICAgICAgICAgICAgDQogICAgICAgICAgIC AgICAgICAgICAgICAgICAgICAgICAgICAgICAgICAgICAgICAgICAgICAgICAgICAgICAgICAgICAgIC AgICAgICAgICAgICAgICAgICAgICAgICAgICAgDQog ICAgICAgICAgICAgICAgICAgICAgICAgICAgICAgICAgICAgICAgICAgICAgICAgICAgICAgICAgICAg ICAgICAgICAgICAgICAgICAgICAgICAgICAgICAgICAgICAgICAgDQogICAgICAgICAgICAgICAgICAg ICAgICAgICAgICAgICAgICAgICAgICAgICAgICAgIC AgICAgICAgICAgICAgICAgICAgICAgICAgICAgICAgICAgICAgICAgICAgICAgICAgDQogICAgICAgIC AgICAgICAgICAgICAgICAgICAgICAgICAgICAgICAgICAgICAgICAgICAgICAgICAgICAgICAgICAgIC AgICAgICAgICAgICAgICAgICAgICAgICAgICAgICAg NEv0T1vgLRMhGBHqKA5uKDc1Wd6+PHbVIfRpPPU7scPrqT6DDW2vd2EdTWjmFTHeh9MgXIy7PX6JDUXc UZzwTN2SZGgbaw5VLUBzUXHqxWXCj8ovUeKvMPX6UXMgZdcdIJ0SANVwB4qeydTqSDVrFFARFQckSXLN AVnyXGTMYD1MEbPoD0KccL58SMJFLz2+DQplbmRvYm qUPoW4PFQdb0SwFXb9OV4LUUSlGdzsb8MySwXgGEOKVQcjOH4IZHV1ZSK6EUDiGf4BXUAlB748bqBfSY 7UKf4WXtXlLA3kxy2NRvHuTWEeYnvYPzq6ELwaLG5CeSUnBNrBnn0hegQttrBFl1ObbcPdiXSXACrmiz BeA5ybbTogRZKNX3jqYEJeWV6fLd4fXWFkAODlAdLj ODZAUQ3LZZHxCZQugPPeQMUdLEVOJC6FXLemMKB0TEYfhyYjiODkJUftVT4JNAGcgmHiIiViYEFOTYm+ Jk8PFJ5pp8ZeAHrzHwKtWP0ulv5NSImNQyKnZ0A3lNQhP1C9PSkkJg0ZXRTmPWGuSsYmVKXYNYejSF1U QR9mmxV7XH8JcNGtIFFjKHFcjHAlIGf3S22kvPDoHT olQN5EAFY+Nasir+Zz3AMQBxYTAiSXQaElKpYLGTLkOmB4XkS5KSa9GoI7PwCG05nVthdwTyXYyiSF8VVM 9eBRStIFIBZB5PqFZvuU6cauLuYAYkSAHMHvBwV71xwDSyVJZbQCFdJEFvZd8LIVZwT2QihxCrnWmmxi UuTEWgIMREZJ6PEDgjyaIqqZWceUdoDM94wMywWB6Q Vy7LWnXzDH7ghd1RfFAsEz1AZIQxIo8QRGDaMAKtJJSmWKQ1DFOcOfLvYSemNZCkGKNmNUP4ZWKvBODi EV3GRvOlGUNzUbLjBZBuSFEgMWVmmu0LZUUjRJUxRoD2CBFzXENgVOMrTIoaBGBpDKLfBXB3BTTsYPMi WG6EXnSxINYlSQF6YmDvKKLlMVOoup1XGLPhBLHeEh DgEgUyBOOwZSMuUUocMIXyFUN7NXr7FVOmOPArIV8DGtBvNRWnHTI4JUckKLDdEFCnja3SMTOtQGVpGo g8TCMuZJLxBRQgYZtqJGJpPRH9YDU2XYJkSOJrOC3KWuDtIKPvFRq0JZupVKOnMTBvyt5PMHLyUVHeOK TsOgIdWBNeFVDdVXqhTYQyWTE4Spc6MXHvGWZuCG9S FsDiHJZqEQObHIwtOJUbGQNmqi5HCMHjVVGeUXZ3VTYbXHWjGJXoOJvfBNNpQLUpQsT5KAEkYWCaCU2P PbTkQMVlIjE8MMYcDGOuUVTifr2YGUWaZPDoVnWjLPTdBRHyWLFiCBdeLYZfDEWaYUP0BNDbPMVvRX1U TcTwAAJqSeZ3YUwwDUTxZDXuld1RSHOkTWFcGpjfJO YqCJEdSXIbLAwbHYTlHOOzHMK1BVZgLBUcQZ0VJhBgIQXqNhFiPrtbMTLdSNDoxx1HUXWdZAPjWHZuAU PxNBMrYDUmDYpnPPUlMKH7YHN3BUFeBIPqPD1BZtUzMGNsQjVsKvQoBUFeEMNeyt4DHCIkHWEdQRUjPB KxPRJaNZOwQAivCCRbMGDbDyH2CNAuIHNgPF9HRxOd NWAfBhZ6CPSfTFShXHRpub7MOXWpTPSkISd7GDRoGACnVKBfZKxhWGUqJZAtQCN3ADXwDYDtJD8JDnJy QPFwYySuFPHrMRWhKCMznx2NPEPkTIZbTFcjJCKeUNMbYHDdSJrqWAGgPEBbEGceUKAeDJJvFA4HBfWc KSSoPbMgFMWhGQJlGISymn8EJSPkTSNdKvGeGKSzYY HcISVbHAr3tuCqwIYrMKv5LO2MD5QpqjSuGpiEIl9Yz547YSU0EBFyQm8IB1nsZl1rGMYkNCNTEr1OKZ v1BUMqWrR9HMI5JXY0EWDbHmB8IYYqGBI7SRRgKqc3QON+DIw6NtWcGjR2ObboEtLxYJBpEtP6K2LmIt NfAbA5MrI3LO8tYMKRRj3+[id number] ID Date Data Source [id number] 06/23/2020 09:59:00 AM EDT [facility]) Name Value Range Interpretation Code Description Data Dee Dee rce(s) Supporting Document(s) ID Date Data Source [id number] 06/23/2020 09:59:00 AM [facility] Name Value Range Interpretation Code Description Data Dee Dee rce(s) Supporting Document(s) ID Date Data Source [id number] 06/23/2020 09:59:00 AM EDT [facility]) Name Value Range Interpretation Code Description Data Dee Dee rce(s) Supporting Document(s) ID Date Data Source [id number] 06/23/2020 09:59:00 AM EDT [facility]) Name Value Range Interpretation Code Description Data Dee Dee rce(s) Supporting Document(s) ID Date Data Source [id number] 06/21/2020 10:16:00 AM EDT [facility]) Name Value Range Interpretation Code Description Data Dee Dee rce(s) Supporting Document(s) bilirubin neg Bilirubin ETHAN ([facility]) glucose 3+ Abnormal (applies to non-numeric res ults) Glucose ETHAN ([facility]) blood 3+ Abnormal (applies to non-numeric res ults) Blood ETHAN ([facility]) ketone 2+ Abnormal (applies to non-numeric res ults) Ketone ETHAN ([facility]) leukocytes neg Leukocytes ETHAN ([facility]) pH Ph ETHAN ([facility]) protein 1+ Abnormal (applies to non-numeric res ults) Protein ETHAN ([facility]) nitrite neg Nitrite ETHAN ([facility]) urobilinogen 0.2 mg/dL Urobilinogen ETHAN (No [facility]) specific gravity Specific [place] [facility]) ID Date Data Source [id number] 06/21/2020 10:16:00 AM EDT [facility]) Name Value Range Interpretation Code Description Data Dee Dee rce(s) Supporting Document(s) bilirubin neg Bilirubin ETHAN ([facility]) blood 3+ Abnormal (applies to non-numeric res ults) Blood ETHAN ([facility]) glucose 3+ Abnormal (applies to non-numeric res ults) Glucose ETHAN ([facility]) ketone 2+ Abnormal (applies to non-numeric res ults) Ketone ETHAN ([facility]) nitrite neg Nitrite ETHAN ([facility]) leukocytes neg Leukocytes ETHAN ([facility]) protein 1+ Abnormal (applies to non-numeric res ults) Protein ETHAN ([facility]) pH Ph ETHAN ([facility]) urobilinogen 0.2 mg/dL Urobilinogen ETHAN ([facility]) specific gravity Specific [place] AT [facility]) ID Date Data Source [id number] 06/21/2020 10:16:00 AM EDT [facility]) Name Value Range Interpretation Code Description Data Dee Dee rce(s) Supporting Document(s) bilirubin neg Bilirubin ETHAN ([facility]) blood 3+ Abnormal (applies to non-numeric res ults) Blood ETHAN ([facility]) glucose 3+ Abnormal (applies to non-numeric res ults) [facility] ketone 2+ Abnormal (applies to non-numeric res ults) Ketone ETHAN ([facility]) leukocytes neg Leukocytes ETHAN ([facility]) pH Ph [facility]) nitrite neg Nitrite ETHAN ([facility]) protein 1+ Abnormal (applies to non-numeric res ults) Protein ETHAN ([facility]) specific gravity Specific [place] AT [place] ([facility]) urobilinogen 0.2 mg/dL Urobilinogen ETHAN (No [facility]) ID Date Data Source [id number] 06/21/2020 10:16:00 AM EDT [facility] Name Value Range Interpretation Code Description Data Dee Dee rce(s) Supporting Document(s) bilirubin neg Bilirubin ETHAN ([facility]) ketone 2+ Abnormal (applies to non-numeric res ults) Ketone ETHAN ([facility]) blood 3+ Abnormal (applies to non-numeric res ults) Blood ETHAN ([facility]) glucose 3+ Abnormal (applies to non-numeric res ults) Glucose ETHAN ([facility]) leukocytes neg Leukocytes ETHAN ([facility]) nitrite neg Nitrite ETHAN ([facility]) protein 1+ Abnormal (applies to non-numeric res ults) Protein ETHAN ([facility]) pH Ph ETHAN ([facility]) specific gravity Specific [place] AT [place] ([facility]) urobilinogen 0.2 mg/dL Urobilinogen ETHAN (No [facility]) ID Date Data Source [id number] 06/21/2020 10:16:00 AM EDT [facility] Name Value Range Interpretation Code Description Data Dee Dee rce(s) Supporting Document(s) blood 3+ Abnormal (applies to non-numeric res ults) Blood ETHAN ([facility]) bilirubin neg Bilirubin ETHAN ([facility]) ketone 2+ Abnormal (applies to non-numeric res ults) Ketone ETHAN ([facility]) glucose 3+ Abnormal (applies to non-numeric res ults) Glucose ETHAN ([facility]) pH Ph ETHAN ([facility]) nitrite neg Nitrite ETHAN ([facility]) leukocytes neg Leukocytes ETHAN ([facility]) specific gravity Specific [place] [facility] protein 1+ Abnormal (applies to non-numeric res ults) Protein ETHAN ([facility]) urobilinogen 0.2 mg/dL Urobilinogen ETHAN (No [facility]) ID Date Data Source [id number] 06/21/2020 10:16:00 AM EDT ETHAN ([facility]) Name Value Range Interpretation Code Description Data Dee Dee rce(s) Supporting Document(s) bilirubin neg Bilirubin ETHAN ([facility]) glucose 3+ Abnormal (applies to non-numeric res ults) Glucose ETHAN ([facility]) blood 3+ Abnormal (applies to non-numeric res ults) Blood ETHAN ([facility]) leukocytes neg Leukocytes ETHAN ([facility]) ketone 2+ Abnormal (applies to non-numeric res ults) Ketone ETHAN ([facility]) nitrite neg Nitrite ETHAN ([facility]) pH Ph ETHAN ([facility]) protein 1+ Abnormal (applies to non-numeric res ults) Protein ETHAN ([facility]) urobilinogen 0.2 mg/dL Urobilinogen ETHAN (No [facility]) specific gravity Specific [place] AT [facility] ([facility]) ID Date Data Source [id number] 06/21/2020 10:16:00 AM EDT [facility]) Name Value Range Interpretation Code Description Data Dee Dee rce(s) Supporting Document(s) bilirubin neg Bilirubin ETHAN ([facility]) blood 3+ Abnormal (applies to non-numeric res ults) Blood ETHAN ([facility]) glucose 3+ Abnormal (applies to non-numeric res ults) Glucose ETHAN ([facility]) ketone 2+ Abnormal (applies to non-numeric res ults) Ketone ETHAN ([facility]) nitrite neg Nitrite ETHAN ([facility]) leukocytes neg Leukocytes ETHAN ([facility]) pH Ph ETHAN ([facility]) protein 1+ Abnormal (applies to non-numeric res ults) Protein ETHAN ([facility]) specific gravity Specific [place] AT [place] ([facility]) urobilinogen 0.2 mg/dL Urobilinogen ETHAN (No [facility]) ID Date Data Source [id number] 06/15/2020 09:29:00 AM EDT ETHAN ([facility]) Name Value Range Interpretation Code Description Data Dee Dee rce(s) Supporting Document(s) Hemoglobin A1c/Hemoglobin.total in Blood Hemoglobin a1C [facility]) ID Date Data Source [id number] 06/15/2020 09:29:00 AM EDT ETHAN ([facility]) Name Value Range Interpretation Code Description Data Dee Dee rce(s) Supporting Document(s) ID Date Data Source [id number] 06/15/2020 09:29:00 AM EDT [facility]) Name Value Range Interpretation Code Description Data Dee Dee rce(s) Supporting Document(s) Hemoglobin A1c/Hemoglobin.total in Blood Hemoglobin a1C PEPIN ([facility]) ID Date Data Source [id number] 06/15/2020 09:29:00 AM EDT [facility] Name Value Range Interpretation Code Description Data Dee Dee rce(s) Supporting Document(s) ID Date Data Source [id number] 06/15/2020 09:29:00 AM EDT [facility] Name Value Range Interpretation Code Description Data Dee Dee rce(s) Supporting Document(s) ID Date Data Source [id number] 06/15/2020 09:29:00 AM EDT [facility]) Name Value Range Interpretation Code Description Data Dee Dee rce(s) Supporting Document(s) ID Date Data Source [id number] 06/15/2020 09:29:00 AM EDT [facility] Name Value Range Interpretation Code Description Data Dee Dee rce(s) Supporting Document(s) ID Date Data Source [id number] 06/15/2020 09:29:00 AM EDT [facility] Name Value Range Interpretation Code Description Data Dee Dee rce(s) Supporting Document(s) ID Date Data Source [id number] 06/15/2020 09:29:00 AM EDT [facility] Name Value Range Interpretation Code Description Data Dee Dee rce(s) Supporting Document(s) ID Date Data Source [id number] 06/15/2020 09:29:00 AM EDT [facility] Name Value Range Interpretation Code Description Data Dee Dee rce(s) Supporting Document(s) ID Date Data Source [id number] 06/15/2020 09:29:00 AM EDT [facility] Name Value Range Interpretation Code Description Data Dee Dee rce(s) Supporting Document(s) ID Date Data Source [id number] 06/15/2020 09:29:00 AM EDT [facility] Name Value Range Interpretation Code Description Data Dee Dee rce(s) Supporting Document(s) ID Date Data Source [id number] 06/15/2020 09:29:00 AM EDT [facility] Name Value Range Interpretation Code Description Data Dee Dee rce(s) Supporting Document(s) ID Date Data Source [id number] 03/19/2020 11:23:00 AM EST [facility] Name Value Range Interpretation Code Description Data Dee Dee rce(s) Supporting Document(s) lipase 189 U/L 73-393 Lipase ETHAN ([facility]) ID Date Data Source [id number] 03/19/2020 11:23:00 AM EST ETHAN ([facility]) Name Value Range Interpretation Code Description Data Dee Dee rce(s) Supporting Document(s) amylase 14 U/L 25-115 Below low normal Amylase ETHAN ( [facility]) ID Date Data Source [id number] 03/19/2020 11:23:00 AM EST ETHAN ([facility]) Name Value Range Interpretation Code Description Data Dee Dee rce(s) Supporting Document(s) glucose, fasting 328 mg/dL 70-100 Above high normal Glucose, Fas ting ETHAN ([facility]) blood urea nitrogen 11 mg/dL 7-18 Blood Urea Nitro gen ETHAN ([facility]) sodium level 134 mEq/L 136-145 Below low normal Sodium Level ATHE ([facility]) creatinine for GFR 0.74 mg/dL 0.55-1.30 Creatinine for GF R ETHAN ([facility]) glomerular filtration rate > 60.0 >58 Glomerula r Filtration Rate ETHAN ([facility]) potassium serum 4.4 mEq/L 3.5-5.1 Potassium Serum ATHE ([facility]) carbon dioxide level 26 mEq/L 21-32 Carbon Dioxide Level ETHAN ([facility]) chloride level 98 mEq/L 98-107 Chloride Level ETHAN ([facility]) ALT/SGPT 35 U/L 12-78 ALT/SGPT ETHAN ([facility]) anion gap 10 mEq/L 8-16 Anion Gap ETHAN ([facility]) AST/SGOT 16 U/L 7-37 AST/SGOT ETHAN ([facility]) calcium level 8.9 mg/dL 8.5-10.1 Calcium Level ETHAN ( [facility]) bilirubin,total 0.3 mg/dL 0.2-1.0 Bilirubin,total ATHE NA ([facility]) total protein 6.4 gm/dL 6.4-8.2 Total Protein ETHAN ( [facility]) alkaline phosphatase 96 U/L 45-117 Alkaline Phosph atase ETHAN ([facility]) albumin/globulin ratio 1.2-2.2 Albumin/globu paola Ratio ETHAN ([facility]) albumin 3.6 gm/dL 3.2-5.2 Albumin ETHNA ([facility]) ID Date Data Source [id number] 03/19/2020 11:23:00 AM EST ETHAN ([facility]) Name Value Range Interpretation Code Description Data Dee Dee rce(s) Supporting Document(s) white blood count 6.5 10 4.0-10.0 White Blood Count ETHAN ([facility]) hematocrit 41.5 % 36.0-47.0 Hematocrit ETHAN ([facility]) hemoglobin 13.3 g/dL 12.0-15.5 Hemoglobin ETHAN ([facility]) red blood count 4.55 10 4.00-5.40 Red Blood Count ATHE ([facility]) mean corpuscular hemoglobin 29.2 pg 27.0-33.0 Mean Cor puscular Hemoglobin ETHAN ([facility]) mean corpuscular volume 91.2 fL 80.0-96.0 Mean Corpusc ular Volume ETHAN ([facility]) mean corpuscular HGB conc 32.0 g/dL 32.0-36.5 Mean Corpu scular HGB Conc ETHAN ([facility]) neutrophils % 69.3 % 36.0-66.0 Above high normal Neutrophils % A THENA ([facility]) platelet count, automated 276 10 150-450 Platelet C ount, Automated ETHAN ([facility]) red cell distribution width 13.2 % 11.5-14.5 Red Cell Distribution Width ETHAN ([facility]) mono % 5.2 % 0.0-5.0 Above high normal [place] % ETHAN ([facility]) lymph % 22.7 % 24.0-44.0 Below low normal Lymph % ETHAN ( [facility]) eos % 2.0 % 0.0-3.0 Eos % ETHAN ([facility]) nucleated red blood cell % 0.0 % 0-0 Nucleated Red Blood Cell % ETHAN ([facility]) baso % 0.5 % 0.0-1.0 Baso % ETHAN ([facility]) immature granulocyte % 0.3 % 0-3.0 Immature Gran ulocyte % ETHAN ([facility]) mono # 0.3 10 0.0-0.8 [place] # ETHAN ([facility]) lymph # 1.5 10 1.5-5.0 Lymph # PEPIN ([facility]) neutrophils # 4.5 10 1.5-8.5 Neutrophils # ETHAN ( [facility]) baso # 0.0 10 0.0-0.2 Baso # ETHAN ([facility]) eos # 0.1 10 0.0-0.5 Eos # ETHAN ([facility]) ID Date Data Source [id number] 03/19/2020 11:23:00 AM EST ETHAN ([facility]) Name Value Range Interpretation Code Description Data Dee Dee rce(s) Supporting Document(s) lipase 189 U/L 73-393 Lipase ETHAN ([facility]) ID Date Data Source [id number] 03/19/2020 11:23:00 AM EST ETHAN ([facility]) Name Value Range Interpretation Code Description Data Dee Dee rce(s) Supporting Document(s) amylase 14 U/L 25-115 Below low normal Amylase ETHAN ( [facility]) ID Date Data Source [id number] 03/19/2020 11:23:00 AM EST ETHAN ([facility]) Name Value Range Interpretation Code Description Data Dee Dee rce(s) Supporting Document(s) glucose, fasting 328 mg/dL 70-100 Above high normal Glucose, Fas ting ETHAN ([facility]) blood urea nitrogen 11 mg/dL 7-18 Blood Urea Nitro gen ETHAN ([facility]) sodium level 134 mEq/L 136-145 Below low normal Sodium Level ATHE NA ([facility]) glomerular filtration rate > 60.0 >58 Glomerula r Filtration Rate ETHAN ([facility]) creatinine for GFR 0.74 mg/dL 0.55-1.30 Creatinine for GF R ETHAN ([facility]) potassium serum 4.4 mEq/L 3.5-5.1 Potassium Serum ATHE NA ([facility]) chloride level 98 mEq/L 98-107 Chloride Level ETHAN ([facility]) carbon dioxide level 26 mEq/L 21-32 Carbon Dioxide Level ETHAN ([facility]) calcium level 8.9 mg/dL 8.5-10.1 Calcium Level ETHAN ( [facility]) anion gap 10 mEq/L 8-16 Anion Gap ETHAN ([facility]) ALT/SGPT 35 U/L 12-78 ALT/SGPT ETHAN ([facility]) AST/SGOT 16 U/L 7-37 AST/SGOT ETHAN ([facility]) alkaline phosphatase 96 U/L 45-117 Alkaline Phosph atase ETHAN ([facility]) bilirubin,total 0.3 mg/dL 0.2-1.0 Bilirubin,total ATHE ([facility]) albumin 3.6 gm/dL 3.2-5.2 Albumin ETHAN ([facility]) total protein 6.4 gm/dL 6.4-8.2 Total Protein ETHAN ( [facility]) albumin/globulin ratio 1.2-2.2 Albumin/globu paola Ratio ETHAN ([facility]) ID Date Data Source [id number] 03/19/2020 11:23:00 AM EST ETHAN ([facility]) Name Value Range Interpretation Code Description Data Dee Dee rce(s) Supporting Document(s) white blood count 6.5 10 4.0-10.0 White Blood Count ETHAN ([facility]) red blood count 4.55 10 4.00-5.40 Red Blood Count ATHE NA ([facility]) hemoglobin 13.3 g/dL 12.0-15.5 Hemoglobin ETHAN ([facility]) hematocrit 41.5 % 36.0-47.0 Hematocrit ETHAN ([facility]) mean corpuscular volume 91.2 fL 80.0-96.0 Mean Corpusc ular Volume ETHAN ([facility]) mean corpuscular HGB conc 32.0 g/dL 32.0-36.5 Mean Corpu scular HGB Conc ETHAN ([facility]) mean corpuscular hemoglobin 29.2 pg 27.0-33.0 Mean Cor puscular Hemoglobin ETHAN ([facility]) red cell distribution width 13.2 % 11.5-14.5 Red Cell Distribution Width ETHAN ([facility]) platelet count, automated 276 10 150-450 Platelet C ount, Automated ETHAN ([facility]) lymph % 22.7 % 24.0-44.0 Below low normal Lymph % ETHAN ( [facility]) neutrophils % 69.3 % 36.0-66.0 Above high normal Neutrophils % A THENA ([facility]) eos % 2.0 % 0.0-3.0 Eos % ETHAN ([facility]) mono % 5.2 % 0.0-5.0 Above high normal [place] % ETHAN ([facility]) immature granulocyte % 0.3 % 0-3.0 Immature Gran ulocyte % ETHAN ([facility]) baso % 0.5 % 0.0-1.0 Baso % ETHAN ([facility]) neutrophils # 4.5 10 1.5-8.5 Neutrophils # ETHAN ( [facility]) lymph # 1.5 10 1.5-5.0 Lymph # ETHAN ([facility]) nucleated red blood cell % 0.0 % 0-0 Nucleated Red Blood Cell % ETHAN ([facility]) mono # 0.3 10 0.0-0.8 [place] # ETHAN ([facility]) eos # 0.1 10 0.0-0.5 Eos # ETHAN ([facility]) baso # 0.0 10 0.0-0.2 Baso # ETHAN ([facility]) ID Date Data Source [id number] 03/19/2020 11:23:00 AM EST ETHAN ([facility]) Name Value Range Interpretation Code Description Data Dee Dee rce(s) Supporting Document(s) lipase 189 U/L 73-393 Lipase ETHAN ([facility]) ID Date Data Source [id number] 03/19/2020 11:23:00 AM EST ETHAN ([facility]) Name Value Range Interpretation Code Description Data Dee Dee rce(s) Supporting Document(s) amylase 14 U/L 25-115 Below low normal Amylase PEPIN ( [facility]) ID Date Data Source [id number] 03/19/2020 11:23:00 AM EST ETHAN ([facility]) Name Value Range Interpretation Code Description Data Dee Dee rce(s) Supporting Document(s) glucose, fasting 328 mg/dL 70-100 Above high normal Glucose, Fas ting PEPIN ([facility]) blood urea nitrogen 11 mg/dL 7-18 Blood Urea Nitro gen ETHAN ([facility]) creatinine for GFR 0.74 mg/dL 0.55-1.30 Creatinine for GF R ETHAN ([facility]) glomerular filtration rate > 60.0 >58 Glomerula r Filtration Rate ETHAN ([facility]) potassium serum 4.4 mEq/L 3.5-5.1 Potassium Serum ATHE NA ([facility]) sodium level 134 mEq/L 136-145 Below low normal Sodium Level ATHE NA ([facility]) carbon dioxide level 26 mEq/L 21-32 Carbon Dioxide Level ETHAN ([facility]) chloride level 98 mEq/L 98-107 Chloride Level ETHAN ([facility]) anion gap 10 mEq/L 8-16 Anion Gap ETHAN ([facility]) AST/SGOT 16 U/L 7-37 AST/SGOT ETHAN ([facility]) calcium level 8.9 mg/dL 8.5-10.1 Calcium Level ETHAN ( [facility]) alkaline phosphatase 96 U/L 45-117 Alkaline Phosph atase ETHAN ([facility]) ALT/SGPT 35 U/L 12-78 ALT/SGPT ETHAN ([facility]) albumin 3.6 gm/dL 3.2-5.2 Albumin ETHAN ([facility]) bilirubin,total 0.3 mg/dL 0.2-1.0 Bilirubin,total ATHE NA ([facility]) total protein 6.4 gm/dL 6.4-8.2 Total Protein ETHAN ( [facility]) albumin/globulin ratio 1.2-2.2 Albumin/globu paola Ratio ETHAN ([facility]) ID Date Data Source [id number] 03/19/2020 11:23:00 AM EST ETHAN ([facility]) Name Value Range Interpretation Code Description Data Dee Dee rce(s) Supporting Document(s) white blood count 6.5 10 4.0-10.0 White Blood Count ETHAN ([facility]) red blood count 4.55 10 4.00-5.40 Red Blood Count ATHE ([facility]) hemoglobin 13.3 g/dL 12.0-15.5 Hemoglobin ETHAN ([facility]) hematocrit 41.5 % 36.0-47.0 Hematocrit ETHAN ([facility]) mean corpuscular volume 91.2 fL 80.0-96.0 Mean Corpusc ular Volume ETHAN ([facility]) mean corpuscular hemoglobin 29.2 pg 27.0-33.0 Mean Cor puscular Hemoglobin ETHAN ([facility]) red cell distribution width 13.2 % 11.5-14.5 Red Cell Distribution Width ETHAN ([facility]) mean corpuscular HGB conc 32.0 g/dL 32.0-36.5 Mean Corpu scular HGB Conc ETHAN ([facility]) platelet count, automated 276 10 150-450 Platelet C ount, Automated ETHAN ([facility]) neutrophils % 69.3 % 36.0-66.0 Above high normal Neutrophils % A THENA ([facility]) lymph % 22.7 % 24.0-44.0 Below low normal Lymph % ETHAN ( [facility]) mono % 5.2 % 0.0-5.0 Above high normal [place] % ETHAN ([facility]) eos % 2.0 % 0.0-3.0 Eos % ETHAN ([facility]) baso % 0.5 % 0.0-1.0 Baso % ETHAN ([facility]) immature granulocyte % 0.3 % 0-3.0 Immature Gran ulocyte % ETHAN ([facility]) neutrophils # 4.5 10 1.5-8.5 Neutrophils # PE[place] ( [facility]) nucleated red blood cell % 0.0 % 0-0 Nucleated Red Blood Cell % ETHAN ([facility]) mono # 0.3 10 0.0-0.8 [place] # ETHAN ([facility]) lymph # 1.5 10 1.5-5.0 Lymph # ETHAN ([facility]) eos # 0.1 10 0.0-0.5 Eos # ETHAN ([facility]) baso # 0.0 10 0.0-0.2 Baso # ETHAN ([facility]) ID Date Data Source [id number] 03/19/2020 11:23:00 AM EST ETHAN ([facility]) Name Value Range Interpretation Code Description Data Dee Dee rce(s) Supporting Document(s) lipase 189 U/L 73-393 Lipase ETHAN ([facility]) ID Date Data Source [id number] 03/19/2020 11:23:00 AM EST ETHAN ([facility]) Name Value Range Interpretation Code Description Data Dee Dee rce(s) Supporting Document(s) amylase 14 U/L 25-115 Below low normal Amylase ETHAN ( [facility]) ID Date Data Source [id number] 03/19/2020 11:23:00 AM EST ETHAN ([facility]) Name Value Range Interpretation Code Description Data Dee Dee rce(s) Supporting Document(s) blood urea nitrogen 11 mg/dL 7-18 Blood Urea Nitro gen ETHAN ([facility]) glucose, fasting 328 mg/dL 70-100 Above high normal Glucose, Fas ting ETHAN ([facility]) creatinine for GFR 0.74 mg/dL 0.55-1.30 Creatinine for GF R ETHAN ([facility]) sodium level 134 mEq/L 136-145 Below low normal Sodium Level ATHE NA ([facility]) glomerular filtration rate > 60.0 >58 Glomerula r Filtration Rate ETHAN ([facility]) carbon dioxide level 26 mEq/L 21-32 Carbon Dioxide Level ETHAN ([facility]) chloride level 98 mEq/L 98-107 Chloride Level ETHAN ([facility]) potassium serum 4.4 mEq/L 3.5-5.1 Potassium Serum ATHE NA ([facility]) anion gap 10 mEq/L 8-16 Anion Gap ETHAN ([facility]) calcium level 8.9 mg/dL 8.5-10.1 Calcium Level ETHAN ( [facility]) AST/SGOT 16 U/L 7-37 AST/SGOT ETHAN ([facility]) alkaline phosphatase 96 U/L 45-117 Alkaline Phosph atase ETHAN ([facility]) ALT/SGPT 35 U/L 12-78 ALT/SGPT ETHAN ([facility]) albumin 3.6 gm/dL 3.2-5.2 Albumin ETHAN ([facility]) total protein 6.4 gm/dL 6.4-8.2 Total Protein ETHAN ( [facility]) bilirubin,total 0.3 mg/dL 0.2-1.0 Bilirubin,total ATHE NA ([facility]) albumin/globulin ratio 1.2-2.2 Albumin/globu paola Ratio ETHAN ([facility]) ID Date Data Source [id number] 03/19/2020 11:23:00 AM EST ETHAN ([facility]) Name Value Range Interpretation Code Description Data Dee Dee rce(s) Supporting Document(s) white blood count 6.5 10 4.0-10.0 White Blood Count ETHAN ([facility]) red blood count 4.55 10 4.00-5.40 Red Blood Count ATHE NA ([facility]) hemoglobin 13.3 g/dL 12.0-15.5 Hemoglobin ETHAN ([facility]) hematocrit 41.5 % 36.0-47.0 Hematocrit ETHAN ([facility]) mean corpuscular volume 91.2 fL 80.0-96.0 Mean Corpusc ular Volume ETHAN ([facility]) mean corpuscular HGB conc 32.0 g/dL 32.0-36.5 Mean Corpu scular HGB Conc ETHAN ([facility]) red cell distribution width 13.2 % 11.5-14.5 Red Cell Distribution Width ETHAN ([facility]) mean corpuscular hemoglobin 29.2 pg 27.0-33.0 Mean Cor puscular Hemoglobin ETHAN ([facility]) platelet count, automated 276 10 150-450 Platelet C ount, Automated ETHAN ([facility]) neutrophils % 69.3 % 36.0-66.0 Above high normal Neutrophils % A THENA ([facility]) lymph % 22.7 % 24.0-44.0 Below low normal Lymph % ETHAN ( [facility]) mono % 5.2 % 0.0-5.0 Above high normal [place] % ETHAN ([facility]) eos % 2.0 % 0.0-3.0 Eos % ETHAN ([facility]) immature granulocyte % 0.3 % 0-3.0 Immature Gran ulocyte % ETHAN ([facility]) baso % 0.5 % 0.0-1.0 Baso % ETHAN ([facility]) neutrophils # 4.5 10 1.5-8.5 Neutrophils # ETHAN ( [facility]) nucleated red blood cell % 0.0 % 0-0 Nucleated Red Blood Cell % ETHAN ([facility]) lymph # 1.5 10 1.5-5.0 Lymph # ETHAN ([facility]) mono # 0.3 10 0.0-0.8 [place] # ETHAN ([facility]) eos # 0.1 10 0.0-0.5 Eos # ETHAN ([facility]) baso # 0.0 10 0.0-0.2 Baso # ETHAN ([facility]) ID Date Data Source [id number] 03/19/2020 11:23:00 AM EST ETHAN ([facility]) Name Value Range Interpretation Code Description Data Dee Dee rce(s) Supporting Document(s) lipase 189 U/L 73-393 Lipase ETHAN ([facility]) ID Date Data Source [id number] 03/19/2020 11:23:00 AM EST ETHAN ([facility]) Name Value Range Interpretation Code Description Data Dee Dee rce(s) Supporting Document(s) amylase 14 U/L 25-115 Below low normal Amylase PEPIN ( [facility]) ID Date Data Source [id number] 03/19/2020 11:23:00 AM EST ETHAN ([facility]) Name Value Range Interpretation Code Description Data Dee Dee rce(s) Supporting Document(s) glucose, fasting 328 mg/dL 70-100 Above high normal Glucose, Fas ting ETHAN ([facility]) blood urea nitrogen 11 mg/dL 7-18 Blood Urea Nitro gen ETHAN ([facility]) creatinine for GFR 0.74 mg/dL 0.55-1.30 Creatinine for GF R ETHAN ([facility]) glomerular filtration rate > 60.0 >58 Glomerula r Filtration Rate ETHAN ([facility]) potassium serum 4.4 mEq/L 3.5-5.1 Potassium Serum ATHE NA ([facility]) sodium level 134 mEq/L 136-145 Below low normal Sodium Level ATHE NA ([facility]) carbon dioxide level 26 mEq/L 21-32 Carbon Dioxide Level ETHAN ([facility]) chloride level 98 mEq/L 98-107 Chloride Level ETHAN ([facility]) anion gap 10 mEq/L 8-16 Anion Gap ETHAN ([facility]) calcium level 8.9 mg/dL 8.5-10.1 Calcium Level ETHAN ( [facility]) AST/SGOT 16 U/L 7-37 AST/SGOT ETHAN ([facility]) ALT/SGPT 35 U/L 12-78 ALT/SGPT ETHAN ([facility]) alkaline phosphatase 96 U/L 45-117 Alkaline Phosph atase ETHAN ([facility]) bilirubin,total 0.3 mg/dL 0.2-1.0 Bilirubin,total ATHE NA ([facility]) total protein 6.4 gm/dL 6.4-8.2 Total Protein ETHAN ( [facility]) albumin 3.6 gm/dL 3.2-5.2 Albumin ETHAN ([facility]) albumin/globulin ratio 1.2-2.2 Albumin/globu paola Ratio ETHAN ([facility]) ID Date Data Source [id number] 03/19/2020 11:23:00 AM EST ETHAN ([facility]) Name Value Range Interpretation Code Description Data Dee Dee rce(s) Supporting Document(s) white blood count 6.5 10 4.0-10.0 White Blood Count ETHAN ([facility]) hemoglobin 13.3 g/dL 12.0-15.5 Hemoglobin ETHAN ([facility]) red blood count 4.55 10 4.00-5.40 Red Blood Count ATHE ([facility]) hematocrit 41.5 % 36.0-47.0 Hematocrit ETHAN ([facility]) mean corpuscular volume 91.2 fL 80.0-96.0 Mean Corpusc ular Volume ETHAN ([facility]) red cell distribution width 13.2 % 11.5-14.5 Red Cell Distribution Width ETHAN ([facility]) mean corpuscular hemoglobin 29.2 pg 27.0-33.0 Mean Cor puscular Hemoglobin ETHAN ([facility]) mean corpuscular HGB conc 32.0 g/dL 32.0-36.5 Mean Corpu scular HGB Conc ETHAN ([facility]) platelet count, automated 276 10 150-450 Platelet C ount, Automated ETHAN ([facility]) neutrophils % 69.3 % 36.0-66.0 Above high normal Neutrophils % A THENA ([facility]) mono % 5.2 % 0.0-5.0 Above high normal [place] % ETHAN ([facility]) lymph % 22.7 % 24.0-44.0 Below low normal Lymph % ETHAN ( [facility]) eos % 2.0 % 0.0-3.0 Eos % ETHAN ([facility]) baso % 0.5 % 0.0-1.0 Baso % ETHAN ([facility]) immature granulocyte % 0.3 % 0-3.0 Immature Gran ulocyte % ETHAN ([facility]) neutrophils # 4.5 10 1.5-8.5 Neutrophils # ETHAN ( [facility]) nucleated red blood cell % 0.0 % 0-0 Nucleated Red Blood Cell % ETHAN ([facility]) lymph # 1.5 10 1.5-5.0 Lymph # ETHAN ([facility]) mono # 0.3 10 0.0-0.8 [place] # ETHAN ([facility]) eos # 0.1 10 0.0-0.5 Eos # ETHAN ([facility]) baso # 0.0 10 0.0-0.2 Baso # ETHAN ([facility]) ID Date Data Source [id number] 03/19/2020 11:23:00 AM EST ETHAN ([facility]) Name Value Range Interpretation Code Description Data Dee Dee rce(s) Supporting Document(s) lipase 189 U/L 73-393 Lipase ETHAN ([facility]) ID Date Data Source [id number] 03/19/2020 11:23:00 AM EST ETHAN ([facility]) Name Value Range Interpretation Code Description Data Dee Dee rce(s) Supporting Document(s) amylase 14 U/L 25-115 Below low normal Amylase ETHAN ( [facility]) ID Date Data Source [id number] 03/19/2020 11:23:00 AM EST ETHAN ([facility]) Name Value Range Interpretation Code Description Data Dee Dee rce(s) Supporting Document(s) glucose, fasting 328 mg/dL 70-100 Above high normal Glucose, Fas ting PEPIN ([facility]) blood urea nitrogen 11 mg/dL 7-18 Blood Urea Nitro gen ETHAN ([facility]) creatinine for GFR 0.74 mg/dL 0.55-1.30 Creatinine for GF R PEPIN ([facility]) glomerular filtration rate > 60.0 >58 Glomerula r Filtration Rate ETHAN ([facility]) sodium level 134 mEq/L 136-145 Below low normal Sodium Level ATHE ([facility]) potassium serum 4.4 mEq/L 3.5-5.1 [facility] chloride level 98 mEq/L 98-107 Chloride Level PEPIN ([facility]) anion gap 10 mEq/L 8-16 Anion Gap PEPIN ([facility]) carbon dioxide level 26 mEq/L 21-32 Carbon Dioxide Level ETHAN ([facility]) AST/SGOT 16 U/L 7-37 AST/SGOT ETHAN ([facility]) calcium level 8.9 mg/dL 8.5-10.1 Calcium Level ETHAN ( [facility]) alkaline phosphatase 96 U/L 45-117 Alkaline Phosph atase ETHAN ([facility]) ALT/SGPT 35 U/L 12-78 ALT/SGPT ETHAN ([facility]) bilirubin,total 0.3 mg/dL 0.2-1.0 Bilirubin,total ATHE ([facility]) total protein 6.4 gm/dL 6.4-8.2 Total Protein ETHAN ( [facility]) albumin 3.6 gm/dL 3.2-5.2 Albumin ETHAN ([facility]) albumin/globulin ratio 1.2-2.2 Albumin/globu paola Ratio ETHAN ([facility]) ID Date Data Source [id number] 03/19/2020 11:23:00 AM EST ETHAN ([facility]) Name Value Range Interpretation Code Description Data Dee Dee rce(s) Supporting Document(s) white blood count 6.5 10 4.0-10.0 White Blood Count ETHAN ([facility]) red blood count 4.55 10 4.00-5.40 Red Blood Count ATHE ([facility]) hematocrit 41.5 % 36.0-47.0 Hematocrit ETHAN ([facility]) hemoglobin 13.3 g/dL 12.0-15.5 Hemoglobin ETHAN ([facility]) mean corpuscular volume 91.2 fL 80.0-96.0 Mean Corpusc ular Volume ETHAN ([facility]) mean corpuscular hemoglobin 29.2 pg 27.0-33.0 Mean Cor puscular Hemoglobin ETHAN ([facility]) red cell distribution width 13.2 % 11.5-14.5 Red Cell Distribution Width ETHAN ([facility]) mean corpuscular HGB conc 32.0 g/dL 32.0-36.5 Mean Corpu scular HGB Conc ETHAN ([facility]) platelet count, automated 276 10 150-450 Platelet C ount, Automated ETHAN ([facility]) neutrophils % 69.3 % 36.0-66.0 Above high normal Neutrophils % A THENA ([facility]) mono % 5.2 % 0.0-5.0 Above high normal [place] % ETHAN ([facility]) lymph % 22.7 % 24.0-44.0 Below low normal Lymph % ETHAN ( [facility]) eos % 2.0 % 0.0-3.0 Eos % ETHAN ([facility]) baso % 0.5 % 0.0-1.0 Baso % ETHAN ([facility]) immature granulocyte % 0.3 % 0-3.0 Immature Gran ulocyte % ETHAN ([facility]) nucleated red blood cell % 0.0 % 0-0 Nucleated Red Blood Cell % ETHAN ([facility]) lymph # 1.5 10 1.5-5.0 Lymph # ETHAN ([facility]) neutrophils # 4.5 10 1.5-8.5 Neutrophils # ETHAN ( [facility]) mono # 0.3 10 0.0-0.8 [place] # ETHAN ([facility]) eos # 0.1 10 0.0-0.5 Eos # ETHAN ([facility]) baso # 0.0 10 0.0-0.2 Baso # ETHAN ([facility]) ID Date Data Source [id number] 03/19/2020 11:23:00 AM EST ETHAN ([facility]) Name Value Range Interpretation Code Description Data Dee Dee rce(s) Supporting Document(s) lipase 189 U/L 73-393 Lipase PEPIN ([facility]) ID Date Data Source [id number] 03/19/2020 11:23:00 AM EST ETHAN ([facility]) Name Value Range Interpretation Code Description Data Dee Dee rce(s) Supporting Document(s) amylase 14 U/L 25-115 Below low normal Amylase PEPIN ( [facility]) ID Date Data Source [id number] 03/19/2020 11:23:00 AM EST ETHAN ([facility]) Name Value Range Interpretation Code Description Data Dee Dee rce(s) Supporting Document(s) glucose, fasting 328 mg/dL 70-100 Above high normal Glucose, Fas ting PEPIN ([facility]) creatinine for GFR 0.74 mg/dL 0.55-1.30 Creatinine for GF R PEPIN ([facility]) blood urea nitrogen 11 mg/dL 7-18 Blood Urea Nitro gen ETHAN ([facility]) glomerular filtration rate > 60.0 >58 Glomerula r Filtration Rate ETHAN ([facility]) potassium serum 4.4 mEq/L 3.5-5.1 Potassium Serum ATHE NA ([facility]) sodium level 134 mEq/L 136-145 Below low normal Sodium Level ATHE NA ([facility]) carbon dioxide level 26 mEq/L 21-32 Carbon Dioxide Level ETHAN ([facility]) anion gap 10 mEq/L 8-16 Anion Gap ETHAN ([facility]) chloride level 98 mEq/L 98-107 Chloride Level ETHAN ([facility]) calcium level 8.9 mg/dL 8.5-10.1 Calcium Level ETHAN ( [facility]) AST/SGOT 16 U/L 7-37 AST/SGOT ETHAN ([facility]) ALT/SGPT 35 U/L 12-78 ALT/SGPT ETHAN ([facility]) total protein 6.4 gm/dL 6.4-8.2 Total Protein ETHAN ( [facility]) alkaline phosphatase 96 U/L 45-117 Alkaline Phosph atase ETHAN ([facility]) bilirubin,total 0.3 mg/dL 0.2-1.0 Bilirubin,total ATHE ([facility]) albumin 3.6 gm/dL 3.2-5.2 Albumin ETHAN ([facility]) albumin/globulin ratio 1.2-2.2 Albumin/globu paola Ratio ETHAN ([facility]) ID Date Data Source [id number] 03/19/2020 11:23:00 AM EST ETHAN ([facility]) Name Value Range Interpretation Code Description Data Dee Dee rce(s) Supporting Document(s) white blood count 6.5 10 4.0-10.0 White Blood Count ETHAN ([facility]) hematocrit 41.5 % 36.0-47.0 Hematocrit ETHAN ([facility]) hemoglobin 13.3 g/dL 12.0-15.5 Hemoglobin ETHAN ([facility]) red blood count 4.55 10 4.00-5.40 Red Blood Count ATHE NA ([facility]) mean corpuscular hemoglobin 29.2 pg 27.0-33.0 Mean Cor puscular Hemoglobin ETHAN ([facility]) mean corpuscular volume 91.2 fL 80.0-96.0 Mean Corpusc ular Volume ETHAN ([facility]) red cell distribution width 13.2 % 11.5-14.5 Red Cell Distribution Width ETHAN ([facility]) mean corpuscular HGB conc 32.0 g/dL 32.0-36.5 Mean Corpu scular HGB Conc ETHAN ([facility]) neutrophils % 69.3 % 36.0-66.0 Above high normal Neutrophils % A THENA ([facility]) lymph % 22.7 % 24.0-44.0 Below low normal Lymph % ETHAN ( [facility]) platelet count, automated 276 10 150-450 Platelet C ount, Automated ETHAN ([facility]) baso % 0.5 % 0.0-1.0 Baso % ETHAN ([facility]) eos % 2.0 % 0.0-3.0 Eos % ETHAN ([facility]) mono % 5.2 % 0.0-5.0 Above high normal [place] % ETHAN ([facility]) immature granulocyte % 0.3 % 0-3.0 Immature Gran ulocyte % ETHAN ([facility]) nucleated red blood cell % 0.0 % 0-0 Nucleated Red Blood Cell % ETHAN ([facility]) mono # 0.3 10 0.0-0.8 [place] # ETHAN ([facility]) neutrophils # 4.5 10 1.5-8.5 Neutrophils # ETHAN ( [facility]) lymph # 1.5 10 1.5-5.0 Lymph # ETHAN ([facility]) eos # 0.1 10 0.0-0.5 Eos # ETHAN ([facility]) baso # 0.0 10 0.0-0.2 Baso # ETHAN ([facility]) ID Date Data Source [id number] 03/19/2020 11:23:00 AM EST ETHAN ([facility]) Name Value Range Interpretation Code Description Data Dee Dee rce(s) Supporting Document(s) lipase 189 U/L 73-393 Lipase ETHAN ([facility]) ID Date Data Source [id number] 03/19/2020 11:23:00 AM EST ETHAN ([facility]) Name Value Range Interpretation Code Description Data Dee Dee rce(s) Supporting Document(s) amylase 14 U/L 25-115 Below low normal Amylase ETHAN ( [facility]) ID Date Data Source [id number] 03/19/2020 11:23:00 AM EST TEHAN ([facility]) Name Value Range Interpretation Code Description Data Dee Dee rce(s) Supporting Document(s) glucose, fasting 328 mg/dL 70-100 Above high normal Glucose, Fas ting ETHAN ([facility]) blood urea nitrogen 11 mg/dL 7-18 Blood Urea Nitro gen ETHAN ([facility]) glomerular filtration rate > 60.0 >58 Glomerula r Filtration Rate ETHAN ([facility]) creatinine for GFR 0.74 mg/dL 0.55-1.30 Creatinine for GF R ETHAN ([facility]) potassium serum 4.4 mEq/L 3.5-5.1 Potassium Serum ATHE NA ([facility]) chloride level 98 mEq/L 98-107 Chloride Level ETHAN ([facility]) sodium level 134 mEq/L 136-145 Below low normal Sodium Level ATHE NA ([facility]) carbon dioxide level 26 mEq/L 21-32 Carbon Dioxide Level ETHAN ([facility]) anion gap 10 mEq/L 8-16 Anion Gap ETHAN ([facility]) calcium level 8.9 mg/dL 8.5-10.1 Calcium Level ETHAN ( [facility]) AST/SGOT 16 U/L 7-37 AST/SGOT ETHAN ([facility]) bilirubin,total 0.3 mg/dL 0.2-1.0 Bilirubin,total ATHE NA ([facility]) alkaline phosphatase 96 U/L 45-117 Alkaline Phosph atase ETHAN ([facility]) ALT/SGPT 35 U/L 12-78 ALT/SGPT ETHAN ([facility]) total protein 6.4 gm/dL 6.4-8.2 Total Protein ETHAN ( [facility]) albumin 3.6 gm/dL 3.2-5.2 Albumin ETHAN ([facility]) albumin/globulin ratio 1.2-2.2 Albumin/globu paola Ratio ETHAN ([facility]) ID Date Data Source [id number] 03/19/2020 11:23:00 AM EST ETHAN ([facility]) Name Value Range Interpretation Code Description Data Dee Dee rce(s) Supporting Document(s) white blood count 6.5 10 4.0-10.0 White Blood Count ETHAN ([facility]) red blood count 4.55 10 4.00-5.40 Red Blood Count ATHE ([facility]) hemoglobin 13.3 g/dL 12.0-15.5 Hemoglobin ETHAN ([facility]) mean corpuscular volume 91.2 fL 80.0-96.0 Mean Corpusc ular Volume ETHAN ([facility]) hematocrit 41.5 % 36.0-47.0 Hematocrit ETHAN ([facility]) mean corpuscular hemoglobin 29.2 pg 27.0-33.0 Mean Cor puscular Hemoglobin ETHAN ([facility]) red cell distribution width 13.2 % 11.5-14.5 Red Cell Distribution Width ETHAN ([facility]) mean corpuscular HGB conc 32.0 g/dL 32.0-36.5 Mean Corpu scular HGB Conc ETHAN ([facility]) platelet count, automated 276 10 150-450 Platelet C ount, Automated ETHAN ([facility]) neutrophils % 69.3 % 36.0-66.0 Above high normal Neutrophils % A THENA ([facility]) lymph % 22.7 % 24.0-44.0 Below low normal Lymph % ETHAN ( [facility]) mono % 5.2 % 0.0-5.0 Above high normal [place] % ETHAN ([facility]) eos % 2.0 % 0.0-3.0 Eos % ETHAN ([facility]) baso % 0.5 % 0.0-1.0 Baso % ETHAN ([facility]) immature granulocyte % 0.3 % 0-3.0 Immature Gran ulocyte % ETHAN ([facility]) lymph # 1.5 10 1.5-5.0 Lymph # ETHAN ([facility]) neutrophils # 4.5 10 1.5-8.5 Neutrophils # ETHAN ( [facility]) nucleated red blood cell % 0.0 % 0-0 Nucleated Red Blood Cell % ETHAN ([facility]) baso # 0.0 10 0.0-0.2 Baso # ETHAN ([facility]) mono # 0.3 10 0.0-0.8 [place] # ETHAN ([facility]) eos # 0.1 10 0.0-0.5 Eos # ETHAN ([facility]) ID Date Data Source [id number] 03/19/2020 11:23:00 AM EST ETHAN ([facility]) Name Value Range Interpretation Code Description Data Dee Dee rce(s) Supporting Document(s) lipase 189 U/L 73-393 Lipase ETHAN ([facility]) ID Date Data Source [id number] 03/19/2020 11:23:00 AM EST ETHAN ([facility]) Name Value Range Interpretation Code Description Data Dee Dee rce(s) Supporting Document(s) amylase 14 U/L 25-115 Below low normal Amylase ETHAN ( [facility]) ID Date Data Source [id number] 03/19/2020 11:23:00 AM EST ETHAN ([facility]) Name Value Range Interpretation Code Description Data Dee Dee rce(s) Supporting Document(s) glucose, fasting 328 mg/dL 70-100 Above high normal Glucose, Fas ting ETHAN ([facility]) blood urea nitrogen 11 mg/dL 7-18 Blood Urea Nitro gen ETHAN ([facility]) creatinine for GFR 0.74 mg/dL 0.55-1.30 Creatinine for GF R ETHAN ([facility]) glomerular filtration rate > 60.0 >58 Glomerula r Filtration Rate ETHAN ([facility]) sodium level 134 mEq/L 136-145 Below low normal Sodium Level ATHE NA ([facility]) potassium serum 4.4 mEq/L 3.5-5.1 Potassium Serum ATHE ([facility]) chloride level 98 mEq/L 98-107 Chloride Level ETHAN ([facility]) anion gap 10 mEq/L 8-16 Anion Gap ETHAN ([facility]) carbon dioxide level 26 mEq/L 21-32 Carbon Dioxide Level ETHAN ([facility]) AST/SGOT 16 U/L 7-37 AST/SGOT ETHAN ([facility]) calcium level 8.9 mg/dL 8.5-10.1 Calcium Level ETHAN ( [facility]) ALT/SGPT 35 U/L 12-78 ALT/SGPT ETHAN ([facility]) bilirubin,total 0.3 mg/dL 0.2-1.0 Bilirubin,total ATHE ([facility]) total protein 6.4 gm/dL 6.4-8.2 Total Protein ETHAN ( [facility]) alkaline phosphatase 96 U/L 45-117 Alkaline Phosph atase ETHAN ([facility]) albumin/globulin ratio 1.2-2.2 Albumin/globu paola Ratio ETHAN ([facility]) albumin 3.6 gm/dL 3.2-5.2 Albumin ETHAN ([facility]) ID Date Data Source [id number] 03/19/2020 11:23:00 AM EST ETHAN ([facility]) Name Value Range Interpretation Code Description Data Dee Dee rce(s) Supporting Document(s) white blood count 6.5 10 4.0-10.0 White Blood Count ETHAN ([facility]) hemoglobin 13.3 g/dL 12.0-15.5 Hemoglobin ETHAN ([facility]) red blood count 4.55 10 4.00-5.40 Red Blood Count ATHE NA ([facility]) mean corpuscular volume 91.2 fL 80.0-96.0 Mean Corpusc ular Volume ETHAN ([facility]) hematocrit 41.5 % 36.0-47.0 Hematocrit ETHAN ([facility]) red cell distribution width 13.2 % 11.5-14.5 Red Cell Distribution Width ETHAN ([facility]) mean corpuscular hemoglobin 29.2 pg 27.0-33.0 Mean Cor puscular Hemoglobin [facility] ([facility] [facility]) mean corpuscular HGB conc 32.0 g/dL 32.0-36.5 Mean Corpu scular HGB Conc ETHAN ([facility]) neutrophils % 69.3 % 36.0-66.0 Above high normal Neutrophils % A THENA ([facility]) platelet count, automated 276 10 150-450 Platelet C ount, Automated ETHAN ([facility]) lymph % 22.7 % 24.0-44.0 Below low normal Lymph % ETHAN ( [facility]) mono % 5.2 % 0.0-5.0 Above high normal [place] % ETHAN ([facility]) eos % 2.0 % 0.0-3.0 Eos % ETHAN ([facility]) baso % 0.5 % 0.0-1.0 Baso % ETHAN ([facility]) immature granulocyte % 0.3 % 0-3.0 Immature Gran ulocyte % ETHAN ([facility]) nucleated red blood cell % 0.0 % 0-0 Nucleated Red Blood Cell % ETHAN ([facility]) lymph # 1.5 10 1.5-5.0 Lymph # ETHAN ([facility]) neutrophils # 4.5 10 1.5-8.5 Neutrophils # ETHAN ( [facility]) mono # 0.3 10 0.0-0.8 [place] # ETHAN ([facility]) baso # 0.0 10 0.0-0.2 Baso # ETHAN ([facility]) eos # 0.1 10 0.0-0.5 Eos # ETHAN ([facility]) ID Date Data Source [id number] 03/19/2020 11:23:00 AM EST ETHAN ([facility]) Name Value Range Interpretation Code Description Data Dee Dee rce(s) Supporting Document(s) lipase 189 U/L 73-393 Lipase ETHAN ([facility]) ID Date Data Source [id number] 03/19/2020 11:23:00 AM EST ETHAN ([facility]) Name Value Range Interpretation Code Description Data Dee Dee rce(s) Supporting Document(s) amylase 14 U/L 25-115 Below low normal Amylase PEPIN ( [facility]) ID Date Data Source [id number] 03/19/2020 11:23:00 AM EST ETHAN ([facility]) Name Value Range Interpretation Code Description Data Dee Dee rce(s) Supporting Document(s) glucose, fasting 328 mg/dL 70-100 Above high normal Glucose, Fas ting ETHAN ([facility]) glomerular filtration rate > 60.0 >58 Glomerula r Filtration Rate ETHAN ([facility]) creatinine for GFR 0.74 mg/dL 0.55-1.30 Creatinine for GF R ETHAN ([facility]) blood urea nitrogen 11 mg/dL 7-18 Blood Urea Nitro gen ETHAN ([facility]) sodium level 134 mEq/L 136-145 Below low normal Sodium Level ATHE NA ([facility]) potassium serum 4.4 mEq/L 3.5-5.1 Potassium Serum ATHE NA ([facility]) chloride level 98 mEq/L 98-107 Chloride Level ETHAN ([facility]) anion gap 10 mEq/L 8-16 Anion Gap ETHAN ([facility]) carbon dioxide level 26 mEq/L 21-32 Carbon Dioxide Level ETHAN ([facility]) AST/SGOT 16 U/L 7-37 AST/SGOT ETHAN ([facility]) calcium level 8.9 mg/dL 8.5-10.1 Calcium Level ETHAN ( [facility]) ALT/SGPT 35 U/L 12-78 ALT/SGPT ETHAN ([facility]) bilirubin,total 0.3 mg/dL 0.2-1.0 Bilirubin,total ATHE NA ([facility]) alkaline phosphatase 96 U/L 45-117 Alkaline Phosph atase ETHAN ([facility]) total protein 6.4 gm/dL 6.4-8.2 Total Protein ETHAN ( [facility]) albumin 3.6 gm/dL 3.2-5.2 Albumin ETHAN ([facility]) albumin/globulin ratio 1.2-2.2 Albumin/globu paola Ratio ETHAN ([facility]) ID Date Data Source [id number] 03/19/2020 11:23:00 AM EST ETHAN ([facility]) Name Value Range Interpretation Code Description Data Dee Dee rce(s) Supporting Document(s) white blood count 6.5 10 4.0-10.0 White Blood Count ETHAN ([facility]) red blood count 4.55 10 4.00-5.40 Red Blood Count ATHE NA ([facility]) mean corpuscular volume 91.2 fL 80.0-96.0 Mean Corpusc ular Volume ETHAN ([facility]) hematocrit 41.5 % 36.0-47.0 Hematocrit ETHAN ([facility]) hemoglobin 13.3 g/dL 12.0-15.5 Hemoglobin ETHAN ([facility]) mean corpuscular hemoglobin 29.2 pg 27.0-33.0 Mean Cor puscular Hemoglobin ETHAN ([facility]) mean corpuscular HGB conc 32.0 g/dL 32.0-36.5 Mean Corpu scular HGB Conc ETHAN ([facility]) neutrophils % 69.3 % 36.0-66.0 Above high normal Neutrophils % A THENA ([facility]) red cell distribution width 13.2 % 11.5-14.5 Red Cell Distribution Width ETHAN ([facility]) platelet count, automated 276 10 150-450 Platelet C ount, Automated ETHAN ([facility]) lymph % 22.7 % 24.0-44.0 Below low normal Lymph % ETHAN ( [facility]) mono % 5.2 % 0.0-5.0 Above high normal [place] % ETHAN ([facility]) eos % 2.0 % 0.0-3.0 Eos % ETHAN ([facility]) baso % 0.5 % 0.0-1.0 Baso % PEPIN ([facility]) nucleated red blood cell % 0.0 % 0-0 Nucleated Red Blood Cell % ETHAN ([facility]) immature granulocyte % 0.3 % 0-3.0 Immature Gran ulocyte % ETHAN ([facility]) lymph # 1.5 10 1.5-5.0 Lymph # ETHAN ([facility]) neutrophils # 4.5 10 1.5-8.5 Neutrophils # ETHAN ( [facility]) mono # 0.3 10 0.0-0.8 [place] # ETHAN ([facility]) eos # 0.1 10 0.0-0.5 Eos # ETHAN ([facility]) baso # 0.0 10 0.0-0.2 Baso # ETHAN ([facility]) ID Date Data Source [id number] 03/19/2020 11:23:00 AM EST ETHAN ([facility]) Name Value Range Interpretation Code Description Data Dee Dee rce(s) Supporting Document(s) lipase 189 U/L 73-393 Lipase ETHAN ([facility]) ID Date Data Source [id number] 03/19/2020 11:23:00 AM EST ETHAN ([facility]) Name Value Range Interpretation Code Description Data Dee Dee rce(s) Supporting Document(s) amylase 14 U/L 25-115 Below low normal Amylase ETHAN ( [facility]) ID Date Data Source [id number] 03/19/2020 11:23:00 AM EST ETHAN ([facility]) Name Value Range Interpretation Code Description Data Dee Dee rce(s) Supporting Document(s) blood urea nitrogen 11 mg/dL 7-18 Blood Urea Nitro gen ETHAN ([facility]) glucose, fasting 328 mg/dL 70-100 Above high normal Glucose, Fas ting ETHAN ([facility]) creatinine for GFR 0.74 mg/dL 0.55-1.30 Creatinine for GF R ETHAN ([facility]) sodium level 134 mEq/L 136-145 Below low normal Sodium Level ATHE ([facility]) glomerular filtration rate > 60.0 >58 Glomerula r Filtration Rate ETHAN ([facility]) carbon dioxide level 26 mEq/L 21-32 Carbon Dioxide Level ETHAN ([facility]) potassium serum 4.4 mEq/L 3.5-5.1 Potassium Serum ATHE NA ([facility]) chloride level 98 mEq/L 98-107 Chloride Level ETHAN ([facility]) AST/SGOT 16 U/L 7-37 AST/SGOT ETHAN ([facility]) anion gap 10 mEq/L 8-16 Anion Gap ETHAN ([facility]) calcium level 8.9 mg/dL 8.5-10.1 Calcium Level ETHAN ( [facility]) alkaline phosphatase 96 U/L 45-117 Alkaline Phosph atase ETHAN ([facility]) ALT/SGPT 35 U/L 12-78 ALT/SGPT ETHAN ([facility]) bilirubin,total 0.3 mg/dL 0.2-1.0 Bilirubin,total ATHE NA ([facility]) albumin 3.6 gm/dL 3.2-5.2 Albumin ETHAN ([facility]) total protein 6.4 gm/dL 6.4-8.2 Total Protein ETHAN ( [facility]) albumin/globulin ratio 1.2-2.2 Albumin/globu paola Ratio ETHAN ([facility]) ID Date Data Source [id number] 03/19/2020 11:23:00 AM EST ETHAN ([facility]) Name Value Range Interpretation Code Description Data Dee Dee rce(s) Supporting Document(s) white blood count 6.5 10 4.0-10.0 White Blood Count ETHAN ([facility]) red blood count 4.55 10 4.00-5.40 Red Blood Count ATHE ([facility]) hematocrit 41.5 % 36.0-47.0 Hematocrit ETHAN ([facility]) hemoglobin 13.3 g/dL 12.0-15.5 Hemoglobin ETHAN ([facility]) mean corpuscular hemoglobin 29.2 pg 27.0-33.0 Mean Cor puscular Hemoglobin ETHAN ([facility]) mean corpuscular volume 91.2 fL 80.0-96.0 Mean Corpusc ular Volume ETHAN ([facility]) red cell distribution width 13.2 % 11.5-14.5 Red Cell Distribution Width PEPIN ([facility]) platelet count, automated 276 10 150-450 Platelet C ount, Automated ETHAN ([facility]) mean corpuscular HGB conc 32.0 g/dL 32.0-36.5 Mean Corpu scular HGB Conc ETHAN ([facility]) lymph % 22.7 % 24.0-44.0 Below low normal Lymph % PEPIN ( [facility]) mono % 5.2 % 0.0-5.0 Above high normal [place] % ETHAN ([facility]) neutrophils % 69.3 % 36.0-66.0 Above high normal Neutrophils % A THENA ([facility]) eos % 2.0 % 0.0-3.0 Eos % ETHAN ([facility]) immature granulocyte % 0.3 % 0-3.0 Immature Gran ulocyte % ETHAN ([facility]) baso % 0.5 % 0.0-1.0 Baso % ETHAN ([facility]) nucleated red blood cell % 0.0 % 0-0 Nucleated Red Blood Cell % ETHAN ([facility]) neutrophils # 4.5 10 1.5-8.5 Neutrophils # ETHAN ( [facility]) lymph # 1.5 10 1.5-5.0 Lymph # ETHAN ([facility]) eos # 0.1 10 0.0-0.5 Eos # ETHAN ([facility]) mono # 0.3 10 0.0-0.8 [place] # ETHAN ([facility]) baso # 0.0 10 0.0-0.2 Baso # ETHAN ([facility]) ID Date Data Source [id number] 03/19/2020 11:23:00 AM EST ETHAN ([facility]) Name Value Range Interpretation Code Description Data Dee Dee rce(s) Supporting Document(s) lipase 189 U/L 73-393 Lipase ETHAN ([facility]) ID Date Data Source [id number] 03/19/2020 11:23:00 AM EST ETHAN ([facility]) Name Value Range Interpretation Code Description Data Dee Dee rce(s) Supporting Document(s) amylase 14 U/L 25-115 Below low normal Amylase PEPIN ( [facility]) ID Date Data Source [id number] 03/19/2020 11:23:00 AM EST ETHAN ([facility]) Name Value Range Interpretation Code Description Data Dee Dee rce(s) Supporting Document(s) glucose, fasting 328 mg/dL 70-100 Above high normal Glucose, Fas ting ETHAN ([facility]) blood urea nitrogen 11 mg/dL 7-18 Blood Urea Nitro gen ETHAN ([facility]) glomerular filtration rate > 60.0 >58 Glomerula r Filtration Rate ETHAN ([facility]) creatinine for GFR 0.74 mg/dL 0.55-1.30 Creatinine for GF R ETHAN ([facility]) sodium level 134 mEq/L 136-145 Below low normal Sodium Level ATHE NA ([facility]) potassium serum 4.4 mEq/L 3.5-5.1 Potassium Serum ATHE NA ([facility]) anion gap 10 mEq/L 8-16 Anion Gap ETHAN ([facility]) chloride level 98 mEq/L 98-107 Chloride Level ETHAN ([facility]) carbon dioxide level 26 mEq/L 21-32 Carbon Dioxide Level ETHAN ([facility]) calcium level 8.9 mg/dL 8.5-10.1 Calcium Level ETHAN ( [facility]) ALT/SGPT 35 U/L 12-78 ALT/SGPT ETHAN ([facility]) AST/SGOT 16 U/L 7-37 AST/SGOT ETHAN ([facility]) alkaline phosphatase 96 U/L 45-117 Alkaline Phosph atase ETHAN ([facility]) bilirubin,total 0.3 mg/dL 0.2-1.0 Bilirubin,total ATHE ([facility]) albumin 3.6 gm/dL 3.2-5.2 Albumin ETHAN ([facility]) total protein 6.4 gm/dL 6.4-8.2 Total Protein ETHAN ( [facility]) albumin/globulin ratio 1.2-2.2 Albumin/globu paola Ratio ETHAN ([facility]) ID Date Data Source [id number] 03/19/2020 11:23:00 AM EST ETHAN ([facility]) Name Value Range Interpretation Code Description Data Dee Dee rce(s) Supporting Document(s) white blood count 6.5 10 4.0-10.0 White Blood Count ETHAN ([facility]) red blood count 4.55 10 4.00-5.40 Red Blood Count ATHE ([facility]) hemoglobin 13.3 g/dL 12.0-15.5 Hemoglobin ETHAN ([facility]) hematocrit 41.5 % 36.0-47.0 Hematocrit ETHAN ([facility]) mean corpuscular volume 91.2 fL 80.0-96.0 Mean Corpusc ular Volume ETHAN ([facility]) mean corpuscular hemoglobin 29.2 pg 27.0-33.0 Mean Cor puscular Hemoglobin ETHAN ([facility]) red cell distribution width 13.2 % 11.5-14.5 Red Cell Distribution Width ETHAN ([facility]) mean corpuscular HGB conc 32.0 g/dL 32.0-36.5 Mean Corpu scular HGB Conc ETHAN ([facility]) platelet count, automated 276 10 150-450 Platelet C ount, Automated ETHAN ([facility]) neutrophils % 69.3 % 36.0-66.0 Above high normal Neutrophils % A THENA ([facility]) lymph % 22.7 % 24.0-44.0 Below low normal Lymph % PEPIN ( [facility]) mono % 5.2 % 0.0-5.0 Above high normal [place] % ETHAN ([facility]) baso % 0.5 % 0.0-1.0 Baso % ETHAN ([facility]) eos % 2.0 % 0.0-3.0 Eos % ETHAN ([facility]) immature granulocyte % 0.3 % 0-3.0 Immature Gran ulocyte % ETHAN ([facility]) neutrophils # 4.5 10 1.5-8.5 Neutrophils # ETHAN ( [facility]) nucleated red blood cell % 0.0 % 0-0 Nucleated Red Blood Cell % ETHAN ([facility]) lymph # 1.5 10 1.5-5.0 Lymph # ETHAN ([facility]) mono # 0.3 10 0.0-0.8 [place] # ETHAN ([facility]) eos # 0.1 10 0.0-0.5 Eos # ETHAN ([facility]) baso # 0.0 10 0.0-0.2 Baso # ETHAN ([facility]) ID Date Data Source [id number] 03/19/2020 11:23:00 AM EST ETHAN ([facility]) Name Value Range Interpretation Code Description Data Dee Dee rce(s) Supporting Document(s) lipase 189 U/L 73-393 Lipase ETHAN ([facility]) ID Date Data Source [id number] 03/19/2020 11:23:00 AM EST ETHAN ([facility]) Name Value Range Interpretation Code Description Data Dee Dee rce(s) Supporting Document(s) amylase 14 U/L 25-115 Below low normal Amylase ETHAN ( [facility]) ID Date Data Source [id number] 03/19/2020 11:23:00 AM EST PEPIN ([facility]) Name Value Range Interpretation Code Description Data Dee Dee rce(s) Supporting Document(s) glucose, fasting 328 mg/dL 70-100 Above high normal Glucose, Fas ting ETHAN ([facility]) blood urea nitrogen 11 mg/dL 7-18 Blood Urea Nitro gen ETHAN ([facility]) creatinine for GFR 0.74 mg/dL 0.55-1.30 Creatinine for GF R ETHAN ([facility]) glomerular filtration rate > 60.0 >58 Glomerula r Filtration Rate ETHAN ([facility]) potassium serum 4.4 mEq/L 3.5-5.1 Potassium Serum ATHE NA ([facility]) sodium level 134 mEq/L 136-145 Below low normal Sodium Level ATHE NA ([facility]) chloride level 98 mEq/L 98-107 Chloride Level ETHAN ([facility]) carbon dioxide level 26 mEq/L 21-32 Carbon Dioxide Level ETHAN ([facility]) anion gap 10 mEq/L 8-16 Anion Gap ETHAN ([facility]) calcium level 8.9 mg/dL 8.5-10.1 Calcium Level ETHAN ( [facility]) AST/SGOT 16 U/L 7-37 AST/SGOT ETHAN ([facility]) ALT/SGPT 35 U/L 12-78 ALT/SGPT ETHAN ([facility]) alkaline phosphatase 96 U/L 45-117 Alkaline Phosph atase ETHAN ([facility]) total protein 6.4 gm/dL 6.4-8.2 Total Protein ETHAN ( [facility]) bilirubin,total 0.3 mg/dL 0.2-1.0 Bilirubin,total ATHE NA ([facility]) albumin 3.6 gm/dL 3.2-5.2 Albumin ETHAN ([facility]) albumin/globulin ratio 1.2-2.2 Albumin/globu paola Ratio ETHAN ([facility]) ID Date Data Source [id number] 03/19/2020 11:23:00 AM EST ETHAN ([facility]) Name Value Range Interpretation Code Description Data Dee Dee rce(s) Supporting Document(s) white blood count 6.5 10 4.0-10.0 White Blood Count ETHAN ([facility]) hemoglobin 13.3 g/dL 12.0-15.5 Hemoglobin ETHAN ([facility]) hematocrit 41.5 % 36.0-47.0 Hematocrit ETHAN ([facility]) red blood count 4.55 10 4.00-5.40 Red Blood Count ATHE NA ([facility]) mean corpuscular hemoglobin 29.2 pg 27.0-33.0 Mean Cor puscular Hemoglobin ETHAN ([facility]) mean corpuscular volume 91.2 fL 80.0-96.0 Mean Corpusc ular Volume ETHAN ([facility]) mean corpuscular HGB conc 32.0 g/dL 32.0-36.5 Mean Corpu scular HGB Conc ETHAN ([facility]) red cell distribution width 13.2 % 11.5-14.5 Red Cell Distribution Width ETHAN ([facility]) platelet count, automated 276 10 150-450 Platelet C ount, Automated ETHAN ([facility]) neutrophils % 69.3 % 36.0-66.0 Above high normal Neutrophils % A THENA ([facility]) lymph % 22.7 % 24.0-44.0 Below low normal Lymph % ETHAN ( [facility]) mono % 5.2 % 0.0-5.0 Above high normal [place] % ETHAN ([facility]) baso % 0.5 % 0.0-1.0 Baso % ETHAN ([facility]) eos % 2.0 % 0.0-3.0 Eos % ETHAN ([facility]) immature granulocyte % 0.3 % 0-3.0 Immature Gran ulocyte % ETHAN ([facility]) nucleated red blood cell % 0.0 % 0-0 Nucleated Red Blood Cell % ETHAN ([facility]) neutrophils # 4.5 10 1.5-8.5 Neutrophils # ETHAN ( [facility]) lymph # 1.5 10 1.5-5.0 Lymph # ETHAN ([facility]) mono # 0.3 10 0.0-0.8 [place] # ETHAN ([facility]) baso # 0.0 10 0.0-0.2 Baso # ETHAN ([facility]) eos # 0.1 10 0.0-0.5 Eos # ETHAN ([facility]) ID Date Data Source [id number] 03/19/2020 10:50:00 AM EST ETHAN ([facility]) Name Value Range Interpretation Code Description Data Dee Dee rce(s) Supporting Document(s) ID Date Data Source [id number] 03/19/2020 10:50:00 AM EST ETHAN ([facility]) Name Value Range Interpretation Code Description Data Dee Dee rce(s) Supporting Document(s) ID Date Data Source [id number] 03/19/2020 10:50:00 AM EST ETHAN ([facility]) Name Value Range Interpretation Code Description Data Dee Dee rce(s) Supporting Document(s) ID Date Data Source [id number] 03/19/2020 10:50:00 AM EST ETHAN ([facility]) Name Value Range Interpretation Code Description Data Dee Dee rce(s) Supporting Document(s) ID Date Data Source [id number] 03/19/2020 10:50:00 AM EST ETHAN ([facility]) Name Value Range Interpretation Code Description Data Dee Dee rce(s) Supporting Document(s) ID Date Data Source [id number] 03/19/2020 10:50:00 AM EST ETHAN ([facility]) Name Value Range Interpretation Code Description Data Dee Dee rce(s) Supporting Document(s) ID Date Data Source [id number] 03/19/2020 10:50:00 AM EST ETHAN ([facility]) Name Value Range Interpretation Code Description Data Dee Dee rce(s) Supporting Document(s) ID Date Data Source [id number] 03/19/2020 10:50:00 AM EST ETHAN ([facility]) Name Value Range Interpretation Code Description Data Dee Dee rce(s) Supporting Document(s) ID Date Data Source [id number] 03/19/2020 10:50:00 AM EST ETHAN ([facility]) Name Value Range Interpretation Code Description Data Dee Dee rce(s) Supporting Document(s) ID Date Data Source [id number] 03/19/2020 10:50:00 AM EST ETHAN ([facility]) Name Value Range Interpretation Code Description Data Dee Dee rce(s) Supporting Document(s) ID Date Data Source [id number] 03/19/2020 10:50:00 AM EST ETHAN [facility]) Name Value Range Interpretation Code Description Data Dee Dee rce(s) Supporting Document(s) ID Date Data Source [id number] 03/19/2020 10:50:00 AM EST ETHAN ([facility]) Name Value Range Interpretation Code Description Data Dee Dee rce(s) Supporting Document(s) ID Date Data Source [id number] 03/19/2020 10:50:00 AM EST ETHAN ([facility]) Name Value Range Interpretation Code Description Data Dee Dee rce(s) Supporting Document(s) ID Date Data Source [id number] 02/20/2020 09:08:00 AM EST ETHAN ([facility]) Name Value Range Interpretation Code Description Data Dee Dee rce(s) Supporting Document(s) ricky/creat ratio 94.4 mcg/mg 0.0-30.0 Above high normal Ricky/creat Ra tracy ETHAN ([facility]) malb urine siemens 118.0 mg/L Malb Urine Siemen s ETHAN ([facility]) creatinine, urine 125.0 mg/dL Creatinine, Urine ETHAN ([facility]) ID Date Data Source [id number] 02/20/2020 09:08:00 AM EST ETHAN ([facility]) Name Value Range Interpretation Code Description Data Dee Dee rce(s) Supporting Document(s) ricky/creat ratio 94.4 mcg/mg 0.0-30.0 Above high normal Ricky/creat Ra tracy ETHAN ([facility]) malb urine siemens 118.0 mg/L Malb Urine Siemen s ETHAN ([facility]) creatinine, urine 125.0 mg/dL Creatinine, Urine ETHAN ([facility]) ID Date Data Source [id number] 02/20/2020 09:08:00 AM EST ETHAN ([facility]) Name Value Range Interpretation Code Description Data Dee Dee rce(s) Supporting Document(s) malb urine siemens 118.0 mg/L Malb Urine Siemen s ETHAN ([facility]) creatinine, urine 125.0 mg/dL Creatinine, Urine ETHAN ([facility]) ricky/creat ratio 94.4 mcg/mg 0.0-30.0 Above high normal Ricky/creat Ra tracy ETHAN ([facility]) ID Date Data Source [id number] 02/20/2020 09:08:00 AM EST ETHAN ([facility]) Name Value Range Interpretation Code Description Data Dee Dee rce(s) Supporting Document(s) creatinine, urine 125.0 mg/dL Creatinine, Urine ETHAN ([facility]) malb urine siemens 118.0 mg/L Malb Urine Siemen s ETHAN ([facility]) ricky/creat ratio 94.4 mcg/mg 0.0-30.0 Above high normal Ricky/creat Ra tracy ETHAN ([facility]) ID Date Data Source [id number] 02/20/2020 09:08:00 AM EST ETHAN ([facility]) Name Value Range Interpretation Code Description Data Dee Dee rce(s) Supporting Document(s) creatinine, urine 125.0 mg/dL Creatinine, Urine ETHAN ([facility]) ricky/creat ratio 94.4 mcg/mg 0.0-30.0 Above high normal Ricky/creat Ra tracy ETHAN ([facility]) malb urine siemens 118.0 mg/L Malb Urine Siemen s ETHAN ([facility]) ID Date Data Source [id number] 02/20/2020 09:08:00 AM EST ETHAN ([facility]) Name Value Range Interpretation Code Description Data Dee Dee rce(s) Supporting Document(s) creatinine, urine 125.0 mg/dL Creatinine, Urine ETHAN ([facility]) malb urine siemens 118.0 mg/L Malb Urine Siemen s ETHAN ([facility]) ricky/creat ratio 94.4 mcg/mg 0.0-30.0 Above high normal Ricky/creat Ra tracy ETHAN ([facility]) ID Date Data Source [id number] 02/20/2020 09:08:00 AM EST ETHAN ([facility]) Name Value Range Interpretation Code Description Data Dee Dee rce(s) Supporting Document(s) malb urine siemens 118.0 mg/L Malb Urine Siemen s ETHAN ([facility]) creatinine, urine 125.0 mg/dL Creatinine, Urine ETHAN ([facility]) ricky/creat ratio 94.4 mcg/mg 0.0-30.0 Above high normal Ricky/creat Ra tracy ETHAN ([facility]) ID Date Data Source [id number] 02/20/2020 09:08:00 AM EST ETHAN ([facility]) Name Value Range Interpretation Code Description Data Dee Dee rce(s) Supporting Document(s) ricky/creat ratio 94.4 mcg/mg 0.0-30.0 Above high normal Ricky/creat Ra tracy ETHAN ([facility]) malb urine siemens 118.0 mg/L Malb Urine Siemen s ETHAN ([facility]) creatinine, urine 125.0 mg/dL Creatinine, Urine ETHAN ([facility]) ID Date Data Source [id number] 02/20/2020 09:08:00 AM EST ETHAN ([facility]) Name Value Range Interpretation Code Description Data Dee Dee rce(s) Supporting Document(s) creatinine, urine 125.0 mg/dL Creatinine, Urine ETHAN ([facility]) malb urine siemens 118.0 mg/L Malb Urine Siemen s ETHAN ([facility]) ricky/creat ratio 94.4 mcg/mg 0.0-30.0 Above high normal Ricky/creat Ra tracy ETHAN ([facility]) ID Date Data Source [id number] 02/20/2020 09:08:00 AM EST ETHAN ([facility]) Name Value Range Interpretation Code Description Data Dee Dee rce(s) Supporting Document(s) creatinine, urine 125.0 mg/dL Creatinine, Urine ETHAN ([facility]) malb urine siemens 118.0 mg/L Malb Urine Siemen s ETHAN ([facility]) ricky/creat ratio 94.4 mcg/mg 0.0-30.0 Above high normal Ricky/creat Ra tracy ETHAN ([facility]) ID Date Data Source [id number] 02/20/2020 09:08:00 AM EST ETHAN ([facility]) Name Value Range Interpretation Code Description Data Dee Dee rce(s) Supporting Document(s) creatinine, urine 125.0 mg/dL Creatinine, Urine ETHAN ([facility]) ricky/creat ratio 94.4 mcg/mg 0.0-30.0 Above high normal Ricky/creat Ra tracy ETHAN ([facility]) malb urine siemens 118.0 mg/L Malb Urine Siemen s ETHAN ([facility]) ID Date Data Source [id number] 02/20/2020 09:08:00 AM EST ETHAN ([facility]) Name Value Range Interpretation Code Description Data Dee Dee rce(s) Supporting Document(s) creatinine, urine 125.0 mg/dL Creatinine, Urine ETHAN ([facility]) malb urine siemens 118.0 mg/L Malb Urine Siemen s ETHAN ([facility]) ricky/creat ratio 94.4 mcg/mg 0.0-30.0 Above high normal Ricky/creat Ra tracy ETHAN ([facility]) ID Date Data Source [id number] 02/20/2020 09:08:00 AM EST ETHAN ([facility]) Name Value Range Interpretation Code Description Data Dee Dee rce(s) Supporting Document(s) malb urine siemens 118.0 mg/L Malb Urine Siemen s ETHAN ([facility]) creatinine, urine 125.0 mg/dL Creatinine, Urine ETHAN ([facility]) ricky/creat ratio 94.4 mcg/mg 0.0-30.0 Above high normal Ricky/creat Ra tracy ETHAN ([facility]) ID Date Data Source [id number] 02/20/2020 09:08:00 AM EST ETHAN ([facility]) Name Value Range Interpretation Code Description Data Dee Dee rce(s) Supporting Document(s) creatinine, urine 125.0 mg/dL Creatinine, Urine ETHAN ([facility]) malb urine siemens 118.0 mg/L Malb Urine Siemen s ETHAN ([facility]) ricky/creat ratio 94.4 mcg/mg 0.0-30.0 Above high normal Ricky/creat Ra tracy ETHAN ([facility]) ID Date Data Source [id number] 02/20/2020 09:08:00 AM EST ETHAN ([facility]) Name Value Range Interpretation Code Description Data Dee Dee rce(s) Supporting Document(s) malb urine siemens 118.0 mg/L Malb Urine Siemen s ETHAN ([facility]) creatinine, urine 125.0 mg/dL Creatinine, Urine ETHAN ([facility]) ricky/creat ratio 94.4 mcg/mg 0.0-30.0 Above high normal Ricky/creat Ra tracy ETHAN ([facility]) ID Date Data Source [id number] 02/20/2020 09:03:00 AM EST ETHAN ([facility]) Name Value Range Interpretation Code Description Data Dee Dee rce(s) Supporting Document(s) Hemoglobin A1c/Hemoglobin.total in Blood 10.5 % Hemoglobin a1C PEPIN ([facility]) estimated average glucose 255 mg/dL 60-110 Above high norm al Estimated Average Glucose PEPIN ([facility]) ID Date Data Source [id number] 02/20/2020 09:03:00 AM EST ETHAN ([facility]) Name Value Range Interpretation Code Description Data Dee Dee rce(s) Supporting Document(s) ferritin 23 NG/mL 8-252 Ferritin ETHAN ([facility]) ID Date Data Source [id number] 02/20/2020 09:03:00 AM EST ETHAN ([facility]) Name Value Range Interpretation Code Description Data Dee Dee rce(s) Supporting Document(s) total 25(oh) vitamin D 32.0 NG/mL 30.0-100.0 Total 25(Oh) Vitamin D ETHAN ([facility]) ID Date Data Source [id number] 02/20/2020 09:03:00 AM EST ETHAN ([facility]) Name Value Range Interpretation Code Description Data Dee Dee rce(s) Supporting Document(s) total iron binding capacity 289 ug/dL 250-450 Total Ir on Binding Capacity ETHAN ([facility]) iron (fe) 80 ug/dL 50-170 Iron (Fe) ETHAN ([facility]) percent saturation 27.7 % 13.2-45.0 Percent Saturatio n ETHAN ([facility]) ID Date Data Source [id number] 02/20/2020 09:03:00 AM EST ETHAN ([facility]) Name Value Range Interpretation Code Description Data Dee Dee rce(s) Supporting Document(s) triglycerides level 298 mg/dL <150 Above high normal Triglycer ides Level ETHAN ([facility]) HDL cholesterol 37 mg/dL >40 Below low normal HDL Cholestero l ETHAN ([facility]) cholesterol level 162 mg/dL <200 Cholesterol Level ETHAN ([facility]) Cholesterol in LDL [Mass/volume] in Serum or Plasma 65 mg/dL <1 00 LDL Cholesterol ETHAN ([facility]) non-HDL-C 125 mg/dL Non-hdl-c ETHAN ([facility]) cholesterol risk ratio <5 Cholesterol R isk Ratio ETHAN ([facility]) ID Date Data Source [id number] 02/20/2020 09:03:00 AM EST ETHAN ([facility]) Name Value Range Interpretation Code Description Data Dee Dee rce(s) Supporting Document(s) blood urea nitrogen 14 mg/dL 7-18 Blood Urea Nitro gen ETHAN ([facility]) glucose, fasting 236 mg/dL 70-100 Above high normal Glucose, Fas ting ETHAN ([facility]) sodium level 135 mEq/L 136-145 Below low normal Sodium Level ATHE ([facility]) creatinine for GFR 0.65 mg/dL 0.55-1.30 Creatinine for GF R ETHAN ([facility]) potassium serum 4.4 mEq/L 3.5-5.1 Potassium Serum ATHE ([facility]) glomerular filtration rate > 60.0 >58 Glomerula r Filtration Rate ETHAN ([facility]) calcium level 9.4 mg/dL 8.5-10.1 Calcium Level ETHAN ( [facility]) chloride level 102 mEq/L 98-107 Chloride Level ETHAN ([facility]) anion gap 6 mEq/L 8-16 Below low normal Anion Gap ETHAN ( [facility]) carbon dioxide level 27 mEq/L 21-32 Carbon Dioxide Level ETHAN ([facility]) AST/SGOT 10 U/L 7-37 AST/SGOT ETHAN ([facility]) bilirubin,total 0.3 mg/dL 0.2-1.0 Bilirubin,total ATHE ([facility]) ALT/SGPT 26 U/L 12-78 ALT/SGPT ETHAN ([facility]) alkaline phosphatase 92 U/L 45-117 Alkaline Phosph atase ETHAN ([facility]) total protein 6.5 gm/dL 6.4-8.2 Total Protein ETHAN ( [facility]) albumin 3.3 gm/dL 3.2-5.2 Albumin ETHAN ([facility]) albumin/globulin ratio 1.2-2.2 Below low normal Albumin /globulin Ratio ETHAN ([facility]) ID Date Data Source [id number] 02/20/2020 09:03:00 AM EST ETHAN ([facility]) Name Value Range Interpretation Code Description Data Dee Dee rce(s) Supporting Document(s) white blood count 5.7 10 4.0-10.0 White Blood Count ETHAN ([facility]) red blood count 4.47 10 4.00-5.40 Red Blood Count ATHE NA ([facility]) hematocrit 41.3 % 36.0-47.0 Hematocrit ETHAN ([facility]) hemoglobin 13.7 g/dL 12.0-15.5 Hemoglobin ETHAN ([facility]) mean corpuscular volume 92.4 fL 80.0-96.0 Mean Corpusc ular Volume ETHAN ([facility]) red cell distribution width 13.1 % 11.5-14.5 Red Cell Distribution Width ETHAN ([facility]) mean corpuscular HGB conc 33.2 g/dL 32.0-36.5 Mean Corpu scular HGB Conc ETHAN ([facility]) mean corpuscular hemoglobin 30.6 pg 27.0-33.0 Mean Cor puscular Hemoglobin ETHAN ([facility]) nucleated red blood cell % 0.0 % 0-0 Nucleated Red Blood Cell % ETHAN ([facility]) platelet count, automated 280 10 150-450 Platelet C ount, Automated ETHAN ([facility]) ID Date Data Source [id number] 02/20/2020 09:03:00 AM EST ETHAN ([facility]) Name Value Range Interpretation Code Description Data Dee Dee rce(s) Supporting Document(s) Hemoglobin A1c/Hemoglobin.total in Blood 10.5 % Hemoglobin a1C ETHAN ([facility]) estimated average glucose 255 mg/dL 60-110 Above high norm al Estimated Average Glucose TEHAN ([facility]) ID Date Data Source [id number] 02/20/2020 09:03:00 AM EST ETHAN ([facility]) Name Value Range Interpretation Code Description Data Dee Dee rce(s) Supporting Document(s) ferritin 23 NG/mL 8-252 Ferritin ETHAN ([facility]) ID Date Data Source [id number] 02/20/2020 09:03:00 AM EST ETHAN ([facility]) Name Value Range Interpretation Code Description Data Dee Dee rce(s) Supporting Document(s) total 25(oh) vitamin D 32.0 NG/mL 30.0-100.0 Total 25(Oh) Vitamin D ETHAN ([facility]) ID Date Data Source [id number] 02/20/2020 09:03:00 AM EST ETHAN ([facility]) Name Value Range Interpretation Code Description Data Dee Dee rce(s) Supporting Document(s) iron (fe) 80 ug/dL 50-170 Iron (Fe) ETHAN ([facility]) total iron binding capacity 289 ug/dL 250-450 Total Ir on Binding Capacity ETHAN ([facility]) percent saturation 27.7 % 13.2-45.0 Percent Saturatio n ETHAN ([facility]) ID Date Data Source [id number] 02/20/2020 09:03:00 AM EST ETHAN ([facility]) Name Value Range Interpretation Code Description Data Dee Dee rce(s) Supporting Document(s) triglycerides level 298 mg/dL <150 Above high normal Triglycer ides Level ETHAN ([facility]) HDL cholesterol 37 mg/dL >40 Below low normal HDL Cholestero l ETHAN ([facility]) cholesterol level 162 mg/dL <200 Cholesterol Level ETHAN ([facility]) Cholesterol in LDL [Mass/volume] in Serum or Plasma 65 mg/dL <1 00 LDL Cholesterol ETHNA ([facility]) cholesterol risk ratio <5 Cholesterol R isk Ratio ETHAN ([facility]) non-HDL-C 125 mg/dL Non-hdl-c ETHAN ([facility]) ID Date Data Source [id number] 02/20/2020 09:03:00 AM EST ETHAN ([facility]) Name Value Range Interpretation Code Description Data Dee Dee rce(s) Supporting Document(s) glucose, fasting 236 mg/dL 70-100 Above high normal Glucose, Fas ting ETHAN ([facility]) creatinine for GFR 0.65 mg/dL 0.55-1.30 Creatinine for GF R ETHAN ([facility]) blood urea nitrogen 14 mg/dL 7-18 Blood Urea Nitro gen ETHAN ([facility]) potassium serum 4.4 mEq/L 3.5-5.1 Potassium Serum ATHE NA ([facility]) sodium level 135 mEq/L 136-145 Below low normal Sodium Level ATHE NA ([facility]) glomerular filtration rate > 60.0 >58 Glomerula r Filtration Rate ETHAN ([facility]) chloride level 102 mEq/L 98-107 Chloride Level ETHAN ([facility]) carbon dioxide level 27 mEq/L 21-32 Carbon Dioxide Level ETHAN ([facility]) anion gap 6 mEq/L 8-16 Below low normal Anion Gap ETHAN ( [facility]) calcium level 9.4 mg/dL 8.5-10.1 Calcium Level ETHAN ( [facility]) AST/SGOT 10 U/L 7-37 AST/SGOT ETH[facility] ([facility]) alkaline phosphatase 92 U/L 45-117 Alkaline Phosph atase ETHAN ([facility]) ALT/SGPT 26 U/L 12-78 ALT/SGPT ETHAN ([facility]) bilirubin,total 0.3 mg/dL 0.2-1.0 Bilirubin,total ATHE NA ([facility]) total protein 6.5 gm/dL 6.4-8.2 Total Protein ETHAN ( [facility]) albumin 3.3 gm/dL 3.2-5.2 Albumin ETHAN ([facility]) albumin/globulin ratio 1.2-2.2 Below low normal Albumin /globulin Ratio ETHAN ([facility]) ID Date Data Source [id number] 02/20/2020 09:03:00 AM EST ETHAN ([facility]) Name Value Range Interpretation Code Description Data Dee Dee rce(s) Supporting Document(s) white blood count 5.7 10 4.0-10.0 White Blood Count ETHAN ([facility]) hemoglobin 13.7 g/dL 12.0-15.5 Hemoglobin ETHAN ([facility]) red blood count 4.47 10 4.00-5.40 Red Blood Count ATHE NA ([facility]) mean corpuscular volume 92.4 fL 80.0-96.0 Mean Corpusc ular Volume ETHAN ([facility]) mean corpuscular hemoglobin 30.6 pg 27.0-33.0 Mean Cor puscular Hemoglobin ETHAN ([facility]) hematocrit 41.3 % 36.0-47.0 Hematocrit ETHAN ([facility]) mean corpuscular HGB conc 33.2 g/dL 32.0-36.5 Mean Corpu scular HGB Conc ETHAN ([facility]) red cell distribution width 13.1 % 11.5-14.5 Red Cell Distribution Width ETHAN ([facility]) platelet count, automated 280 10 150-450 Platelet C ount, Automated ETHAN ([facility]) nucleated red blood cell % 0.0 % 0-0 Nucleated Red Blood Cell % ETHAN ([facility]) ID Date Data Source [id number] 02/20/2020 09:03:00 AM EST ETHAN ([facility]) Name Value Range Interpretation Code Description Data Dee Dee rce(s) Supporting Document(s) Hemoglobin A1c/Hemoglobin.total in Blood 10.5 % Hemoglobin a1C ETHAN ([facility]) estimated average glucose 255 mg/dL 60-110 Above high norm al Estimated Average Glucose ETHAN ([facility]) ID Date Data Source [id number] 02/20/2020 09:03:00 AM EST ETHAN ([facility]) Name Value Range Interpretation Code Description Data Dee Dee rce(s) Supporting Document(s) ferritin 23 NG/mL 8-252 Ferritin [facility] ([facility]) ID Date Data Source [id number] 02/20/2020 09:03:00 AM EST ETHAN ([facility]) Name Value Range Interpretation Code Description Data Dee Dee rce(s) Supporting Document(s) total 25(oh) vitamin D 32.0 NG/mL 30.0-100.0 Total 25(Oh) Vitamin D ETHAN ([facility]) ID Date Data Source [id number] 02/20/2020 09:03:00 AM EST ETHAN ([facility]) Name Value Range Interpretation Code Description Data Dee Dee rce(s) Supporting Document(s) iron (fe) 80 ug/dL 50-170 Iron (Fe) ETHAN ([facility]) percent saturation 27.7 % 13.2-45.0 Percent Saturatio n ETHAN ([facility]) total iron binding capacity 289 ug/dL 250-450 Total Ir on Binding Capacity ETHAN ([facility]) ID Date Data Source [id number] 02/20/2020 09:03:00 AM EST ETHAN ([facility]) Name Value Range Interpretation Code Description Data Dee Dee rce(s) Supporting Document(s) cholesterol level 162 mg/dL <200 Cholesterol Level ETHAN ([facility]) triglycerides level 298 mg/dL <150 Above high normal Triglycer ides Level ETHAN ([facility]) HDL cholesterol 37 mg/dL >40 Below low normal HDL Cholestero l ETHAN ([facility]) non-HDL-C 125 mg/dL Non-hdl-c ETHAN ([facility]) cholesterol risk ratio <5 Cholesterol R isk Ratio ETHAN ([facility]) Cholesterol in LDL [Mass/volume] in Serum or Plasma 65 mg/dL <1 00 LDL Cholesterol ETHAN ([facility]) ID Date Data Source [id number] 02/20/2020 09:03:00 AM [facility] Name Value Range Interpretation Code Description Data Dee Dee rce(s) Supporting Document(s) glucose, fasting 236 mg/dL 70-100 Above high normal Glucose, Fas ting ETHAN ([facility]) glomerular filtration rate > 60.0 >58 Glomerula r Filtration Rate ETHAN ([facility]) blood urea nitrogen 14 mg/dL 7-18 Blood Urea Nitro gen ETHAN ([facility]) creatinine for GFR 0.65 mg/dL 0.55-1.30 Creatinine for GF R ETHAN ([facility]) sodium level 135 mEq/L 136-145 Below low normal Sodium Level ATHE NA ([facility]) chloride level 102 mEq/L 98-107 Chloride Level PEPIN ([facility]) potassium serum 4.4 mEq/L 3.5-5.1 Potassium Serum ATHE NA ([facility]) anion gap 6 mEq/L 8-16 Below low normal Anion Gap ETHAN ( [facility]) carbon dioxide level 27 mEq/L 21-32 Carbon Dioxide Level ETHAN ([facility]) AST/SGOT 10 U/L 7-37 AST/SGOT [facility]AN ([facility]) calcium level 9.4 mg/dL 8.5-10.1 Calcium Level ETHAN ( [facility]) ALT/SGPT 26 U/L 12-78 ALT/SGPT [facility]AN ([facility]) alkaline phosphatase 92 U/L 45-117 Alkaline Phosph atase ETHAN ([facility]) total protein 6.5 gm/dL 6.4-8.2 Total Protein ETHAN ( [facility]) albumin 3.3 gm/dL 3.2-5.2 Albumin ETHAN ([facility]) bilirubin,total 0.3 mg/dL 0.2-1.0 Bilirubin,total ATHE ([facility]) albumin/globulin ratio 1.2-2.2 Below low normal Albumin /globulin Ratio ETHAN ([facility]) ID Date Data Source [id number] 02/20/2020 09:03:00 AM EST ETHAN ([facility]) Name Value Range Interpretation Code Description Data Dee Dee rce(s) Supporting Document(s) white blood count 5.7 10 4.0-10.0 White Blood Count ETHAN ([facility]) hemoglobin 13.7 g/dL 12.0-15.5 Hemoglobin ETHAN ([facility]) red blood count 4.47 10 4.00-5.40 Red Blood Count ATHE NA ([facility]) hematocrit 41.3 % 36.0-47.0 Hematocrit ETHAN ([facility]) mean corpuscular hemoglobin 30.6 pg 27.0-33.0 Mean Cor puscular Hemoglobin ETHAN ([facility]) mean corpuscular volume 92.4 fL 80.0-96.0 Mean Corpusc ular Volume ETHAN ([facility]) red cell distribution width 13.1 % 11.5-14.5 Red Cell Distribution Width ETHAN ([facility]) platelet count, automated 280 10 150-450 Platelet C ount, Automated ETHAN ([facility]) mean corpuscular HGB conc 33.2 g/dL 32.0-36.5 Mean Corpu scular HGB Conc ETHAN ([facility]) nucleated red blood cell % 0.0 % 0-0 Nucleated Red Blood Cell % ETHAN ([facility]) ID Date Data Source [id number] 02/20/2020 09:03:00 AM EST PEPIN ([facility]) Name Value Range Interpretation Code Description Data Dee Dee rce(s) Supporting Document(s) Hemoglobin A1c/Hemoglobin.total in Blood 10.5 % Hemoglobin a1C ETHAN ([facility]) estimated average glucose 255 mg/dL 60-110 Above high norm al Estimated Average Glucose ETHAN ([facility]) ID Date Data Source [id number] 02/20/2020 09:03:00 AM EST PEPIN ([facility]) Name Value Range Interpretation Code Description Data Dee Dee rce(s) Supporting Document(s) ferritin 23 NG/mL 8-252 Ferritin [facility] ([facility]) ID Date Data Source [id number] 02/20/2020 09:03:00 AM EST ETHAN ([facility]) Name Value Range Interpretation Code Description Data Dee Dee rce(s) Supporting Document(s) total 25(oh) vitamin D 32.0 NG/mL 30.0-100.0 Total 25(Oh) Vitamin D ETHAN ([facility]) ID Date Data Source [id number] 02/20/2020 09:03:00 AM EST ETHAN ([facility]) Name Value Range Interpretation Code Description Data Dee Dee rce(s) Supporting Document(s) total iron binding capacity 289 ug/dL 250-450 Total Ir on Binding Capacity ETHAN ([facility]) iron (fe) 80 ug/dL 50-170 Iron (Fe) ETHAN ([facility]) percent saturation 27.7 % 13.2-45.0 Percent Saturatio n ETHAN ([facility]) ID Date Data Source [id number] 02/20/2020 09:03:00 AM EST ETHAN ([facility]) Name Value Range Interpretation Code Description Data Dee Dee rce(s) Supporting Document(s) cholesterol level 162 mg/dL <200 Cholesterol Level ETHAN ([facility]) HDL cholesterol 37 mg/dL >40 Below low normal HDL Cholestero l ETHAN ([facility]) triglycerides level 298 mg/dL <150 Above high normal Triglycer ides Level ETHAN ([facility]) cholesterol risk ratio <5 Cholesterol R isk Ratio ETHAN ([facility]) Cholesterol in LDL [Mass/volume] in Serum or Plasma 65 mg/dL <1 00 LDL Cholesterol [facility] ([facility]) non-HDL-C 125 mg/dL Non-hdl-c ETHAN ([facility]) ID Date Data Source [id number] 02/20/2020 09:03:00 AM EST ETHAN ([facility]) Name Value Range Interpretation Code Description Data Dee Dee rce(s) Supporting Document(s) blood urea nitrogen 14 mg/dL 7-18 Blood Urea Nitro gen ETHAN ([facility]) glucose, fasting 236 mg/dL 70-100 Above high normal Glucose, Fas ting ETHAN ([facility]) glomerular filtration rate > 60.0 >58 Glomerula r Filtration Rate ETHAN ([facility]) creatinine for GFR 0.65 mg/dL 0.55-1.30 Creatinine for GF R ETHAN ([facility]) sodium level 135 mEq/L 136-145 Below low normal Sodium Level ATHE NA ([facility]) carbon dioxide level 27 mEq/L 21-32 Carbon Dioxide Level ETHAN ([facility]) potassium serum 4.4 mEq/L 3.5-5.1 Potassium Serum ATHE ([facility]) chloride level 102 mEq/L 98-107 Chloride Level PEPIN ([facility]) ALT/SGPT 26 U/L 12-78 ALT/SGPT ETHAN ([facility]) anion gap 6 mEq/L 8-16 Below low normal Anion Gap ETHAN ( [facility]) calcium level 9.4 mg/dL 8.5-10.1 Calcium Level ETHAN ( [facility]) AST/SGOT 10 U/L 7-37 AST/SGOT ETHAN ([facility]) alkaline phosphatase 92 U/L 45-117 Alkaline Phosph atase ETHAN ([facility]) bilirubin,total 0.3 mg/dL 0.2-1.0 Bilirubin,total ATHE ([facility]) total protein 6.5 gm/dL 6.4-8.2 Total Protein ETHAN ( [facility]) albumin 3.3 gm/dL 3.2-5.2 Albumin ETHAN ([facility]) albumin/globulin ratio 1.2-2.2 Below low normal Albumin /globulin Ratio ETHAN ([facility]) ID Date Data Source [id number] 02/20/2020 09:03:00 AM EST ETHAN ([facility]) Name Value Range Interpretation Code Description Data Dee Dee rce(s) Supporting Document(s) hemoglobin 13.7 g/dL 12.0-15.5 Hemoglobin ETHAN ([facility]) white blood count 5.7 10 4.0-10.0 White Blood Count ETHAN ([facility]) red blood count 4.47 10 4.00-5.40 Red Blood Count ATHE NA ([facility]) hematocrit 41.3 % 36.0-47.0 Hematocrit ETHAN ([facility]) mean corpuscular hemoglobin 30.6 pg 27.0-33.0 Mean Cor puscular Hemoglobin ETHAN ([facility]) mean corpuscular volume 92.4 fL 80.0-96.0 Mean Corpusc ular Volume ETHAN ([facility]) red cell distribution width 13.1 % 11.5-14.5 Red Cell Distribution Width ETHAN ([facility]) mean corpuscular HGB conc 33.2 g/dL 32.0-36.5 Mean Corpu scular HGB Conc ETHAN ([facility]) platelet count, automated 280 10 150-450 Platelet C ount, Automated ETHAN ([facility]) nucleated red blood cell % 0.0 % 0-0 Nucleated Red Blood Cell % ETHAN ([facility]) ID Date Data Source [id number] 02/20/2020 09:03:00 AM EST PEPIN ([facility]) Name Value Range Interpretation Code Description Data Dee Dee rce(s) Supporting Document(s) estimated average glucose 255 mg/dL 60-110 Above high norm al Estimated Average Glucose ETHAN ([facility]) Hemoglobin A1c/Hemoglobin.total in Blood 10.5 % Hemoglobin a1C ETHAN ([facility]) ID Date Data Source [id number] 02/20/2020 09:03:00 AM EST ETHAN ([facility]) Name Value Range Interpretation Code Description Data Dee Dee rce(s) Supporting Document(s) ferritin 23 NG/mL 8-252 Ferritin ETHAN ([facility]) ID Date Data Source [id number] 02/20/2020 09:03:00 AM EST ETHAN ([facility]) Name Value Range Interpretation Code Description Data Dee Dee rce(s) Supporting Document(s) total 25(oh) vitamin D 32.0 NG/mL 30.0-100.0 Total 25(Oh) Vitamin D ETHAN ([facility]) ID Date Data Source [id number] 02/20/2020 09:03:00 AM EST ETHAN ([facility]) Name Value Range Interpretation Code Description Data Dee Dee rce(s) Supporting Document(s) iron (fe) 80 ug/dL 50-170 Iron (Fe) ETHAN ([facility]) total iron binding capacity 289 ug/dL 250-450 Total Ir on Binding Capacity ETHAN ([facility]) percent saturation 27.7 % 13.2-45.0 Percent Saturatio n ETHAN ([facility]) ID Date Data Source [id number] 02/20/2020 09:03:00 AM EST ETHAN ([facility]) Name Value Range Interpretation Code Description Data Dee Dee rce(s) Supporting Document(s) cholesterol level 162 mg/dL <200 Cholesterol Level ETHAN ([facility]) triglycerides level 298 mg/dL <150 Above high normal Triglycer ides Level ETHAN ([facility]) HDL cholesterol 37 mg/dL >40 Below low normal HDL Cholestero l ETHAN ([facility]) non-HDL-C 125 mg/dL Non-hdl-c ETHAN ([facility]) Cholesterol in LDL [Mass/volume] in Serum or Plasma 65 mg/dL <1 00 LDL Cholesterol ETHAN ([facility]) cholesterol risk ratio <5 Cholesterol R isk Ratio ETHAN ([facility]) ID Date Data Source [id number] 02/20/2020 09:03:00 AM EST ETHAN ([facility]) Name Value Range Interpretation Code Description Data Dee Dee rce(s) Supporting Document(s) glucose, fasting 236 mg/dL 70-100 Above high normal Glucose, Fas ting ETHAN ([facility]) blood urea nitrogen 14 mg/dL 7-18 Blood Urea Nitro gen ETHAN ([facility]) creatinine for GFR 0.65 mg/dL 0.55-1.30 Creatinine for GF R ETHAN ([facility]) glomerular filtration rate > 60.0 >58 Glomerula r Filtration Rate ETHAN ([facility]) potassium serum 4.4 mEq/L 3.5-5.1 Potassium Serum ATHE NA ([facility]) sodium level 135 mEq/L 136-145 Below low normal Sodium Level ATHE NA ([facility]) anion gap 6 mEq/L 8-16 Below low normal Anion Gap ETHAN ( [facility]) chloride level 102 mEq/L 98-107 Chloride Level ETHAN ([facility]) carbon dioxide level 27 mEq/L 21-32 Carbon Dioxide Level ETHAN ([facility]) ALT/SGPT 26 U/L 12-78 ALT/SGPT ETHAN ([facility]) AST/SGOT 10 U/L 7-37 AST/SGOT ETHAN ([facility]) calcium level 9.4 mg/dL 8.5-10.1 Calcium Level ETHAN ( [facility]) total protein 6.5 gm/dL 6.4-8.2 Total Protein ETHAN ( [facility]) bilirubin,total 0.3 mg/dL 0.2-1.0 Bilirubin,total ATHE ([facility]) alkaline phosphatase 92 U/L 45-117 Alkaline Phosph atase ETHAN ([facility]) albumin 3.3 gm/dL 3.2-5.2 Albumin ETHAN ([facility]) albumin/globulin ratio 1.2-2.2 Below low normal Albumin /globulin Ratio ETHAN ([facility]) ID Date Data Source [id number] 02/20/2020 09:03:00 AM EST ETHAN ([facility]) Name Value Range Interpretation Code Description Data Dee Dee rce(s) Supporting Document(s) white blood count 5.7 10 4.0-10.0 White Blood Count ETHAN ([facility]) red blood count 4.47 10 4.00-5.40 Red Blood Count ATHE NA ([facility]) hemoglobin 13.7 g/dL 12.0-15.5 Hemoglobin ETHAN ([facility]) mean corpuscular hemoglobin 30.6 pg 27.0-33.0 Mean Cor puscular Hemoglobin ETHAN ([facility]) mean corpuscular volume 92.4 fL 80.0-96.0 Mean Corpusc ular Volume ETHAN ([facility]) hematocrit 41.3 % 36.0-47.0 Hematocrit ETHAN ([facility]) mean corpuscular HGB conc 33.2 g/dL 32.0-36.5 Mean Corpu scular HGB Conc ETHAN ([facility]) red cell distribution width 13.1 % 11.5-14.5 Red Cell Distribution Width ETHAN ([facility]) platelet count, automated 280 10 150-450 Platelet C ount, Automated ETHAN ([facility]) nucleated red blood cell % 0.0 % 0-0 Nucleated Red Blood Cell % ETHAN ([facility]) ID Date Data Source [id number] 02/20/2020 09:03:00 AM EST ETHAN ([facility]) Name Value Range Interpretation Code Description Data Dee Dee rce(s) Supporting Document(s) Hemoglobin A1c/Hemoglobin.total in Blood 10.5 % Hemoglobin a1C ETHAN ([facility]) estimated average glucose 255 mg/dL 60-110 Above high norm al Estimated Average Glucose ETHAN ([facility]) ID Date Data Source [id number] 02/20/2020 09:03:00 AM EST ETHAN ([facility]) Name Value Range Interpretation Code Description Data Dee Dee rce(s) Supporting Document(s) ferritin 23 NG/mL 8-252 Ferritin ETHAN ([facility]) ID Date Data Source [id number] 02/20/2020 09:03:00 AM EST ETHAN ([facility]) Name Value Range Interpretation Code Description Data Dee Dee rce(s) Supporting Document(s) total 25(oh) vitamin D 32.0 NG/mL 30.0-100.0 Total 25(Oh) Vitamin D ETHAN ([facility]) ID Date Data Source [id number] 02/20/2020 09:03:00 AM EST ETHAN ([facility]) Name Value Range Interpretation Code Description Data Dee Dee rce(s) Supporting Document(s) percent saturation 27.7 % 13.2-45.0 Percent Saturatio n ETHAN ([facility]) iron (fe) 80 ug/dL 50-170 Iron (Fe) ETHAN ([facility]) total iron binding capacity 289 ug/dL 250-450 Total Ir on Binding Capacity ETHAN ([facility]) ID Date Data Source [id number] 02/20/2020 09:03:00 AM EST ETHAN ([facility]) Name Value Range Interpretation Code Description Data Dee Dee rce(s) Supporting Document(s) triglycerides level 298 mg/dL <150 Above high normal Triglycer ides Level ETHAN ([facility]) HDL cholesterol 37 mg/dL >40 Below low normal HDL Cholestero l ETHAN ([facility]) cholesterol level 162 mg/dL <200 Cholesterol Level ETHAN ([facility]) Cholesterol in LDL [Mass/volume] in Serum or Plasma 65 mg/dL <1 00 LDL Cholesterol ETHAN ([facility]) non-HDL-C 125 mg/dL Non-hdl-c ETHAN ([facility]) cholesterol risk ratio <5 Cholesterol R isk Ratio ETHAN ([facility]) ID Date Data Source [id number] 02/20/2020 09:03:00 AM EST ETHAN ([facility]) Name Value Range Interpretation Code Description Data Dee Dee rce(s) Supporting Document(s) glucose, fasting 236 mg/dL 70-100 Above high normal Glucose, Fas ting ETHAN ([facility]) blood urea nitrogen 14 mg/dL 7-18 Blood Urea Nitro gen ETHAN ([facility]) sodium level 135 mEq/L 136-145 Below low normal Sodium Level ATHE NA ([facility]) creatinine for GFR 0.65 mg/dL 0.55-1.30 Creatinine for GF R ETHAN ([facility]) glomerular filtration rate > 60.0 >58 Glomerula r Filtration Rate ETHAN ([facility]) potassium serum 4.4 mEq/L 3.5-5.1 Potassium Serum ATHE NA ([facility]) anion gap 6 mEq/L 8-16 Below low normal Anion Gap ETHAN ( [facility]) carbon dioxide level 27 mEq/L 21-32 Carbon Dioxide Level ETHAN ([facility]) chloride level 102 mEq/L 98-107 Chloride Level ETHAN ([facility]) calcium level 9.4 mg/dL 8.5-10.1 Calcium Level ETHAN ( [facility]) alkaline phosphatase 92 U/L 45-117 Alkaline Phosph atase ETHAN ([facility]) ALT/SGPT 26 U/L 12-78 ALT/SGPT ETHAN ([facility]) AST/SGOT 10 U/L 7-37 AST/SGOT ETHAN ([facility]) bilirubin,total 0.3 mg/dL 0.2-1.0 Bilirubin,total ATHE ([facility]) total protein 6.5 gm/dL 6.4-8.2 Total Protein ETHAN ( [facility]) albumin 3.3 gm/dL 3.2-5.2 Albumin ETHAN ([facility]) albumin/globulin ratio 1.2-2.2 Below low normal Albumin /globulin Ratio ETHAN ([facility]) ID Date Data Source [id number] 02/20/2020 09:03:00 AM EST ETHAN ([facility]) Name Value Range Interpretation Code Description Data Dee Dee rce(s) Supporting Document(s) white blood count 5.7 10 4.0-10.0 White Blood Count ETHAN ([facility]) hemoglobin 13.7 g/dL 12.0-15.5 Hemoglobin ETHAN ([facility]) red blood count 4.47 10 4.00-5.40 Red Blood Count ATHE NA ([facility]) hematocrit 41.3 % 36.0-47.0 Hematocrit ETHAN ([facility]) mean corpuscular hemoglobin 30.6 pg 27.0-33.0 Mean Cor puscular Hemoglobin ETHAN ([facility]) mean corpuscular volume 92.4 fL 80.0-96.0 Mean Corpusc ular Volume ETHAN ([facility]) platelet count, automated 280 10 150-450 Platelet C ount, Automated ETHAN ([facility]) red cell distribution width 13.1 % 11.5-14.5 Red Cell Distribution Width ETHAN ([facility]) mean corpuscular HGB conc 33.2 g/dL 32.0-36.5 Mean Corpu scular HGB Conc ETHAN ([facility]) nucleated red blood cell % 0.0 % 0-0 Nucleated Red Blood Cell % ETHAN ([facility]) ID Date Data Source [id number] 02/20/2020 09:03:00 AM EST ETHAN ([facility]) Name Value Range Interpretation Code Description Data Dee Dee rce(s) Supporting Document(s) triglycerides level 298 mg/dL <150 Above high normal Triglycer ides Level ETHAN ([facility]) Cholesterol in LDL [Mass/volume] in Serum or Plasma 65 mg/dL <1 00 LDL Cholesterol ETHAN ([facility]) HDL cholesterol 37 mg/dL >40 Below low normal HDL Cholestero l ETHAN ([facility]) cholesterol level 162 mg/dL <200 Cholesterol Level ETHAN ([facility]) cholesterol risk ratio <5 Cholesterol R isk Ratio ETHAN ([facility]) non-HDL-C 125 mg/dL Non-hdl-c ETHAN ([facility]) ID Date Data Source [id number] 02/20/2020 09:03:00 AM EST ETHAN ([facility]) Name Value Range Interpretation Code Description Data Dee Dee rce(s) Supporting Document(s) blood urea nitrogen 14 mg/dL 7-18 Blood Urea Nitro gen ETHAN ([facility]) glucose, fasting 236 mg/dL 70-100 Above high normal Glucose, Fas ting ETHAN ([facility]) creatinine for GFR 0.65 mg/dL 0.55-1.30 Creatinine for GF R ETHAN ([facility]) glomerular filtration rate > 60.0 >58 Glomerula r Filtration Rate ETHAN ([facility]) potassium serum 4.4 mEq/L 3.5-5.1 Potassium Serum ATHE NA ([facility]) sodium level 135 mEq/L 136-145 Below low normal Sodium Level ATHE NA ([facility]) chloride level 102 mEq/L 98-107 Chloride Level PEPIN ([facility]) carbon dioxide level 27 mEq/L 21-32 Carbon Dioxide Level ETHAN ([facility]) anion gap 6 mEq/L 8-16 Below low normal Anion Gap PEPIN ( [facility]) calcium level 9.4 mg/dL 8.5-10.1 Calcium Level PEPIN ( [facility]) AST/SGOT 10 U/L 7-37 AST/SGOT ETHAN ([facility]) ALT/SGPT 26 U/L 12-78 ALT/SGPT PEPIN ([facility]) bilirubin,total 0.3 mg/dL 0.2-1.0 Bilirubin,total ATHE ([facility]) alkaline phosphatase 92 U/L 45-117 Alkaline Phosph atase ETHAN ([facility]) total protein 6.5 gm/dL 6.4-8.2 Total Protein ETHAN ( [facility]) albumin/globulin ratio 1.2-2.2 Below low normal Albumin /globulin Ratio ETHAN ([facility]) albumin 3.3 gm/dL 3.2-5.2 Albumin ETHAN ([facility]) ID Date Data Source [id number] 02/20/2020 09:03:00 AM EST ETHAN ([facility]) Name Value Range Interpretation Code Description Data Dee Dee rce(s) Supporting Document(s) white blood count 5.7 10 4.0-10.0 White Blood Count ETHAN ([facility]) red blood count 4.47 10 4.00-5.40 Red Blood Count ATHE NA ([facility]) hemoglobin 13.7 g/dL 12.0-15.5 Hemoglobin ETHAN ([facility]) mean corpuscular hemoglobin 30.6 pg 27.0-33.0 Mean Cor puscular Hemoglobin ETHAN ([facility]) hematocrit 41.3 % 36.0-47.0 Hematocrit ETHAN ([facility]) mean corpuscular volume 92.4 fL 80.0-96.0 Mean Corpusc ular Volume ETHAN ([facility]) mean corpuscular HGB conc 33.2 g/dL 32.0-36.5 Mean Corpu scular HGB Conc ETHAN ([facility]) platelet count, automated 280 10 150-450 Platelet C ount, Automated ETHAN ([facility]) red cell distribution width 13.1 % 11.5-14.5 Red Cell Distribution Width ETHAN ([facility]) nucleated red blood cell % 0.0 % 0-0 Nucleated Red Blood Cell % ETHAN ([facility]) ID Date Data Source [id number] 02/20/2020 09:03:00 AM EST PEPIN ([facility]) Name Value Range Interpretation Code Description Data Dee Dee rce(s) Supporting Document(s) estimated average glucose 255 mg/dL 60-110 Above high norm al Estimated Average Glucose ETHAN ([facility]) Hemoglobin A1c/Hemoglobin.total in Blood 10.5 % Hemoglobin a1C ETHAN ([facility]) ID Date Data Source [id number] 02/20/2020 09:03:00 AM EST PEPIN ([facility]) Name Value Range Interpretation Code Description Data Dee Dee rce(s) Supporting Document(s) ferritin 23 NG/mL 8-252 Ferritin ETHAN ([facility]) ID Date Data Source [id number] 02/20/2020 09:03:00 AM EST ETHAN ([facility]) Name Value Range Interpretation Code Description Data Dee Dee rce(s) Supporting Document(s) total 25(oh) vitamin D 32.0 NG/mL 30.0-100.0 Total 25(Oh) Vitamin D ETHAN ([facility]) ID Date Data Source [id number] 02/20/2020 09:03:00 AM EST ETHAN ([facility]) Name Value Range Interpretation Code Description Data Dee Dee rce(s) Supporting Document(s) iron (fe) 80 ug/dL 50-170 Iron (Fe) ETHAN ([facility]) total iron binding capacity 289 ug/dL 250-450 Total Ir on Binding Capacity ETHAN ([facility]) percent saturation 27.7 % 13.2-45.0 Percent Saturatio n ETHAN ([facility]) ID Date Data Source [id number] 02/20/2020 09:03:00 AM EST ETHAN ([facility]) Name Value Range Interpretation Code Description Data Dee Dee rce(s) Supporting Document(s) triglycerides level 298 mg/dL <150 Above high normal Triglycer ides Level ETHAN ([facility]) cholesterol level 162 mg/dL <200 Cholesterol Level ETHAN ([facility]) non-HDL-C 125 mg/dL Non-hdl-c ETHAN ([facility]) HDL cholesterol 37 mg/dL >40 Below low normal HDL Cholestero l ETHAN ([facility]) Cholesterol in LDL [Mass/volume] in Serum or Plasma 65 mg/dL <1 00 LDL Cholesterol ETHAN ([facility]) cholesterol risk ratio <5 Cholesterol R isk Ratio ETHAN ([facility]) ID Date Data Source [id number] 02/20/2020 09:03:00 AM EST ETHAN ([facility]) Name Value Range Interpretation Code Description Data Dee Dee rce(s) Supporting Document(s) creatinine for GFR 0.65 mg/dL 0.55-1.30 Creatinine for GF R ETHAN ([facility]) blood urea nitrogen 14 mg/dL 7-18 Blood Urea Nitro gen ETHAN ([facility]) glucose, fasting 236 mg/dL 70-100 Above high normal Glucose, Fas ting ETHAN ([facility]) chloride level 102 mEq/L 98-107 Chloride Level ETHAN ([facility]) potassium serum 4.4 mEq/L 3.5-5.1 Potassium Serum ATHE NA ([facility]) sodium level 135 mEq/L 136-145 Below low normal Sodium Level ATHE NA ([facility]) glomerular filtration rate > 60.0 >58 Glomerula r Filtration Rate ETHAN ([facility]) calcium level 9.4 mg/dL 8.5-10.1 Calcium Level ETHAN ( [facility]) AST/SGOT 10 U/L 7-37 AST/SGOT ETHAN ([facility]) anion gap 6 mEq/L 8-16 Below low normal Anion Gap ETHAN ( [facility]) carbon dioxide level 27 mEq/L 21-32 Carbon Dioxide Level ETHAN ([facility]) total protein 6.5 gm/dL 6.4-8.2 Total Protein ETHAN ( [facility]) bilirubin,total 0.3 mg/dL 0.2-1.0 Bilirubin,total ATHE ([facility]) alkaline phosphatase 92 U/L 45-117 Alkaline Phosph atase ETHAN ([facility]) ALT/SGPT 26 U/L 12-78 ALT/SGPT ETHAN ([facility]) albumin 3.3 gm/dL 3.2-5.2 Albumin ETHAN ([facility]) albumin/globulin ratio 1.2-2.2 Below low normal Albumin /globulin Ratio ETHAN ([facility]) ID Date Data Source [id number] 02/20/2020 09:03:00 AM EST ETHAN ([facility]) Name Value Range Interpretation Code Description Data Dee Dee rce(s) Supporting Document(s) white blood count 5.7 10 4.0-10.0 White Blood Count ETHAN ([facility]) red blood count 4.47 10 4.00-5.40 Red Blood Count ATHE NA ([facility]) hematocrit 41.3 % 36.0-47.0 Hematocrit ETHAN ([facility]) mean corpuscular volume 92.4 fL 80.0-96.0 Mean Corpusc ular Volume ETHAN ([facility]) hemoglobin 13.7 g/dL 12.0-15.5 Hemoglobin ETHAN ([facility]) mean corpuscular hemoglobin 30.6 pg 27.0-33.0 Mean Cor puscular Hemoglobin ETHAN ([facility]) mean corpuscular HGB conc 33.2 g/dL 32.0-36.5 Mean Corpu scular HGB Conc ETHAN ([facility]) platelet count, automated 280 10 150-450 Platelet C ount, Automated ETHAN ([facility]) nucleated red blood cell % 0.0 % 0-0 Nucleated Red Blood Cell % ETHAN ([facility]) red cell distribution width 13.1 % 11.5-14.5 Red Cell Distribution Width ETHAN ([facility]) ID Date Data Source [id number] 02/20/2020 09:03:00 AM EST ETHAN ([facility]) Name Value Range Interpretation Code Description Data Dee Dee rce(s) Supporting Document(s) estimated average glucose 255 mg/dL 60-110 Above high norm al Estimated Average Glucose ETHAN ([facility]) Hemoglobin A1c/Hemoglobin.total in Blood 10.5 % Hemoglobin a1C ETHAN ([facility]) ID Date Data Source [id number] 02/20/2020 09:03:00 AM EST ETHAN ([facility]) Name Value Range Interpretation Code Description Data Dee Dee rce(s) Supporting Document(s) ferritin 23 NG/mL 8-252 Ferritin ETHAN ([facility]) ID Date Data Source [id number] 02/20/2020 09:03:00 AM EST ETHAN ([facility]) Name Value Range Interpretation Code Description Data Dee Dee rce(s) Supporting Document(s) total 25(oh) vitamin D 32.0 NG/mL 30.0-100.0 Total 25(Oh) Vitamin D [facility] ([facility] [facility] ID Date Data Source [id number] 02/20/2020 09:03:00 AM EST ETHAN ([facility]) Name Value Range Interpretation Code Description Data Dee Dee rce(s) Supporting Document(s) percent saturation 27.7 % 13.2-45.0 Percent Saturatio n ETHAN ([facility]) iron (fe) 80 ug/dL 50-170 Iron (Fe) ETHAN ([facility]) total iron binding capacity 289 ug/dL 250-450 Total Ir on Binding Capacity ETHAN ([facility]) ID Date Data Source [id number] 02/20/2020 09:03:00 AM EST ETHAN ([facility]) Name Value Range Interpretation Code Description Data Dee Dee rce(s) Supporting Document(s) cholesterol level 162 mg/dL <200 Cholesterol Level ETHAN ([facility]) triglycerides level 298 mg/dL <150 Above high normal Triglycer ides Level ETHAN ([facility]) cholesterol risk ratio <5 Cholesterol R isk Ratio ETHAN ([facility]) non-HDL-C 125 mg/dL Non-hdl-c ETHAN ([facility]) Cholesterol in LDL [Mass/volume] in Serum or Plasma 65 mg/dL <1 00 LDL Cholesterol ETHAN ([facility]) HDL cholesterol 37 mg/dL >40 Below low normal HDL Cholestero l ETHAN ([facility]) ID Date Data Source [id number] 02/20/2020 09:03:00 AM EST ETHAN ([facility]) Name Value Range Interpretation Code Description Data Dee Dee rce(s) Supporting Document(s) glucose, fasting 236 mg/dL 70-100 Above high normal Glucose, Fas ting ETHAN ([facility]) glomerular filtration rate > 60.0 >58 Glomerula r Filtration Rate ETHAN ([facility]) creatinine for GFR 0.65 mg/dL 0.55-1.30 Creatinine for GF R ETHAN ([facility]) blood urea nitrogen 14 mg/dL 7-18 Blood Urea Nitro gen ETHAN ([facility]) sodium level 135 mEq/L 136-145 Below low normal Sodium Level ATHE NA ([facility]) chloride level 102 mEq/L 98-107 Chloride Level ETHAN ([facility]) potassium serum 4.4 mEq/L 3.5-5.1 Potassium Serum ATHE NA ([facility]) carbon dioxide level 27 mEq/L 21-32 Carbon Dioxide Level ETHAN ([facility]) anion gap 6 mEq/L 8-16 Below low normal Anion Gap ETHAN ( [facility]) calcium level 9.4 mg/dL 8.5-10.1 Calcium Level ETHAN ( [facility]) AST/SGOT 10 U/L 7-37 AST/SGOT [facility] ([facility]) bilirubin,total 0.3 mg/dL 0.2-1.0 Bilirubin,total ATHE ([facility]) alkaline phosphatase 92 U/L 45-117 Alkaline Phosph atase ETHAN ([facility]) ALT/SGPT 26 U/L 12-78 ALT/SGPT ETHAN ([facility]) total protein 6.5 gm/dL 6.4-8.2 Total Protein ETHAN ( [facility]) albumin 3.3 gm/dL 3.2-5.2 Albumin ETHAN ([facility]) albumin/globulin ratio 1.2-2.2 Below low normal Albumin /globulin Ratio ETHAN ([facility]) ID Date Data Source [id number] 02/20/2020 09:03:00 AM EST ETHAN ([facility]) Name Value Range Interpretation Code Description Data Dee Dee rce(s) Supporting Document(s) red blood count 4.47 10 4.00-5.40 Red Blood Count ATHE ([facility]) white blood count 5.7 10 4.0-10.0 White Blood Count ETHAN ([facility]) mean corpuscular volume 92.4 fL 80.0-96.0 Mean Corpusc ular Volume ETHAN ([facility]) hematocrit 41.3 % 36.0-47.0 Hematocrit ETHAN ([facility]) hemoglobin 13.7 g/dL 12.0-15.5 Hemoglobin ETHAN ([facility]) mean corpuscular HGB conc 33.2 g/dL 32.0-36.5 Mean Corpu scular HGB Conc ETHAN ([facility]) mean corpuscular hemoglobin 30.6 pg 27.0-33.0 Mean Cor puscular Hemoglobin ETHAN ([facility]) red cell distribution width 13.1 % 11.5-14.5 Red Cell Distribution Width ETHAN ([facility]) platelet count, automated 280 10 150-450 Platelet C ount, Automated ETHAN ([facility]) nucleated red blood cell % 0.0 % 0-0 Nucleated Red Blood Cell % ETHAN ([facility]) ID Date Data Source [id number] 02/20/2020 09:03:00 AM EST PEPIN ([facility]) Name Value Range Interpretation Code Description Data Dee Dee rce(s) Supporting Document(s) Hemoglobin A1c/Hemoglobin.total in Blood 10.5 % Hemoglobin a1C ETHAN ([facility]) estimated average glucose 255 mg/dL 60-110 Above high norm al Estimated Average Glucose PEPIN ([facility]) ID Date Data Source [id number] 02/20/2020 09:03:00 AM EST ETHAN ([facility]) Name Value Range Interpretation Code Description Data Dee Dee rce(s) Supporting Document(s) ferritin 23 NG/mL 8-252 Ferritin [facility]AN ([facility]) ID Date Data Source [id number] 02/20/2020 09:03:00 AM EST ETHAN ([facility]) Name Value Range Interpretation Code Description Data Dee Dee rce(s) Supporting Document(s) total 25(oh) vitamin D 32.0 NG/mL 30.0-100.0 Total 25(Oh) Vitamin D ETHAN ([facility]) ID Date Data Source [id number] 02/20/2020 09:03:00 AM EST ETHAN ([facility]) Name Value Range Interpretation Code Description Data Dee Dee rce(s) Supporting Document(s) total iron binding capacity 289 ug/dL 250-450 Total Ir on Binding Capacity ETHAN ([facility]) percent saturation 27.7 % 13.2-45.0 Percent Saturatio n ETHAN ([facility]) iron (fe) 80 ug/dL 50-170 Iron (Fe) ETHAN ([facility]) ID Date Data Source [id number] 02/20/2020 09:03:00 AM EST ETHAN ([facility]) Name Value Range Interpretation Code Description Data Dee Dee rce(s) Supporting Document(s) triglycerides level 298 mg/dL <150 Above high normal Triglycer ides Level ETHAN ([facility]) HDL cholesterol 37 mg/dL >40 Below low normal HDL Cholestero l ETHAN ([facility]) cholesterol level 162 mg/dL <200 Cholesterol Level ETHAN ([facility]) cholesterol risk ratio <5 Cholesterol R isk Ratio ETHAN ([facility]) non-HDL-C 125 mg/dL Non-hdl-c ETHAN ([facility]) Cholesterol in LDL [Mass/volume] in Serum or Plasma 65 mg/dL <1 00 LDL Cholesterol ETHAN ([facility]) ID Date Data Source [id number] 02/20/2020 09:03[facility]00 [facility] Name Value Range Interpretation Code Description Data Dee Dee rce(s) Supporting Document(s) glucose, fasting 236 mg/dL 70-100 Above high normal Glucose, Fas ting ETHAN ([facility]) glomerular filtration rate > 60.0 >58 Glomerula r Filtration Rate ETHAN ([facility]) blood urea nitrogen 14 mg/dL 7-18 Blood Urea Nitro gen ETHAN ([facility]) sodium level 135 mEq/L 136-145 Below low normal Sodium Level ATHE NA ([facility]) creatinine for GFR 0.65 mg/dL 0.55-1.30 Creatinine for GF R ETHAN ([facility]) potassium serum 4.4 mEq/L 3.5-5.1 Potassium Serum ATHE NA ([facility]) carbon dioxide level 27 mEq/L 21-32 Carbon Dioxide Level ETHAN ([facility]) chloride level 102 mEq/L 98-107 Chloride Level ETHAN ([facility]) anion gap 6 mEq/L 8-16 Below low normal Anion Gap ETHAN ( [facility]) alkaline phosphatase 92 U/L 45-117 Alkaline Phosph atase ETHAN ([facility]) ALT/SGPT 26 U/L 12-78 ALT/SGPT [facility] ([facility]) AST/SGOT 10 U/L 7-37 AST/SGOT ETH[facility] ([facility]) calcium level 9.4 mg/dL 8.5-10.1 Calcium Level ETHAN ( [facility]) total protein 6.5 gm/dL 6.4-8.2 Total Protein ETHAN ( [facility]) albumin 3.3 gm/dL 3.2-5.2 Albumin ETHAN ([facility]) albumin/globulin ratio 1.2-2.2 Below low normal Albumin /globulin Ratio ETHAN ([facility]) bilirubin,total 0.3 mg/dL 0.2-1.0 Bilirubin,total ATHE NA ([facility]) ID Date Data Source [id number] 02/20/2020 09:03:00 AM EST ETHAN ([facility]) Name Value Range Interpretation Code Description Data Dee Dee rce(s) Supporting Document(s) white blood count 5.7 10 4.0-10.0 White Blood Count ETHAN ([facility]) red blood count 4.47 10 4.00-5.40 Red Blood Count ATHE NA ([facility]) hematocrit 41.3 % 36.0-47.0 Hematocrit ETHAN ([facility]) hemoglobin 13.7 g/dL 12.0-15.5 Hemoglobin ETHAN ([facility]) mean corpuscular volume 92.4 fL 80.0-96.0 Mean Corpusc ular Volume ETHAN ([facility]) mean corpuscular hemoglobin 30.6 pg 27.0-33.0 Mean Cor puscular Hemoglobin ETHAN ([facility]) red cell distribution width 13.1 % 11.5-14.5 Red Cell Distribution Width ETHAN ([facility]) mean corpuscular HGB conc 33.2 g/dL 32.0-36.5 Mean Corpu scular HGB Conc ETHAN ([facility]) platelet count, automated 280 10 150-450 Platelet C ount, Automated ETHAN ([facility]) nucleated red blood cell % 0.0 % 0-0 Nucleated Red Blood Cell % PEPIN ([facility]) ID Date Data Source [id number] 02/20/2020 09:03:00 AM EST PEPIN ([facility]) Name Value Range Interpretation Code Description Data Dee Dee rce(s) Supporting Document(s) Hemoglobin A1c/Hemoglobin.total in Blood 10.5 % Hemoglobin a1C [facility] ([facility]) estimated average glucose 255 mg/dL 60-110 Above high norm al Estimated Average Glucose [facility] ([facility]) ID Date Data Source [id number] 02/20/2020 09:03:00 AM EST PEPIN ([facility]) Name Value Range Interpretation Code Description Data Dee Dee rce(s) Supporting Document(s) ferritin 23 NG/mL 8-252 Ferritin ETHAN ([facility]) ID Date Data Source [id number] 02/20/2020 09:03:00 AM EST PEPIN ([facility]) Name Value Range Interpretation Code Description Data Dee Dee rce(s) Supporting Document(s) total 25(oh) vitamin D 32.0 NG/mL 30.0-100.0 Total 25(Oh) Vitamin D ETHAN ([facility]) ID Date Data Source [id number] 02/20/2020 09:03:00 AM EST ETHAN ([facility]) Name Value Range Interpretation Code Description Data Dee Dee rce(s) Supporting Document(s) iron (fe) 80 ug/dL 50-170 Iron (Fe) ETHAN ([facility]) percent saturation 27.7 % 13.2-45.0 Percent Saturatio n ETHAN ([facility]) total iron binding capacity 289 ug/dL 250-450 Total Ir on Binding Capacity ETHAN ([facility]) ID Date Data Source [id number] 02/20/2020 09:03:00 AM EST ETHAN ([facility]) Name Value Range Interpretation Code Description Data Dee Dee rce(s) Supporting Document(s) triglycerides level 298 mg/dL <150 Above high normal Triglycer ides Level ETHAN ([facility]) cholesterol level 162 mg/dL <200 Cholesterol Level ETHAN ([facility]) HDL cholesterol 37 mg/dL >40 Below low normal HDL Cholestero l ETHAN ([facility]) Cholesterol in LDL [Mass/volume] in Serum or Plasma 65 mg/dL <1 00 LDL Cholesterol ETHAN ([facility]) non-HDL-C 125 mg/dL Non-hdl-c ETHAN ([facility]) cholesterol risk ratio <5 Cholesterol R isk Ratio ETHAN ([facility]) ID Date Data Source [id number] 02/20/2020 09:03:00 AM EST ETHAN ([facility]) Name Value Range Interpretation Code Description Data Dee Dee rce(s) Supporting Document(s) glucose, fasting 236 mg/dL 70-100 Above high normal Glucose, Fas ting ETHAN ([facility]) glomerular filtration rate > 60.0 >58 Glomerula r Filtration Rate ETHAN ([facility]) blood urea nitrogen 14 mg/dL 7-18 Blood Urea Nitro gen ETHAN ([facility]) creatinine for GFR 0.65 mg/dL 0.55-1.30 Creatinine for GF R ETHAN ([facility]) sodium level 135 mEq/L 136-145 Below low normal Sodium Level ATHE NA ([facility]) carbon dioxide level 27 mEq/L 21-32 Carbon Dioxide Level ETHAN ([facility]) potassium serum 4.4 mEq/L 3.5-5.1 Potassium Serum ATHE NA ([facility]) chloride level 102 mEq/L 98-107 Chloride Level ETHAN ([facility]) calcium level 9.4 mg/dL 8.5-10.1 Calcium Level ETHAN ( [facility]) AST/SGOT 10 U/L 7-37 AST/SGOT [facility] ([facility]) anion gap 6 mEq/L 8-16 Below low normal Anion Gap ETHAN ( [facility]) ALT/SGPT 26 U/L 12-78 ALT/SGPT ETHAN ([facility]) bilirubin,total 0.3 mg/dL 0.2-1.0 Bilirubin,total ATHE ([facility]) alkaline phosphatase 92 U/L 45-117 Alkaline Phosph atase ETHAN ([facility]) total protein 6.5 gm/dL 6.4-8.2 Total Protein ETHAN ( [facility]) albumin/globulin ratio 1.2-2.2 Below low normal Albumin /globulin Ratio ETHAN ([facility]) albumin 3.3 gm/dL 3.2-5.2 Albumin ETHAN ([facility]) ID Date Data Source [id number] 02/20/2020 09:03:00 AM EST ETHAN ([facility]) Name Value Range Interpretation Code Description Data Dee Dee rce(s) Supporting Document(s) white blood count 5.7 10 4.0-10.0 White Blood Count ETHAN ([facility]) red blood count 4.47 10 4.00-5.40 Red Blood Count ATHE ([facility]) hemoglobin 13.7 g/dL 12.0-15.5 Hemoglobin ETHAN ([facility]) hematocrit 41.3 % 36.0-47.0 Hematocrit ETHAN ([facility]) mean corpuscular hemoglobin 30.6 pg 27.0-33.0 Mean Cor puscular Hemoglobin ETHAN ([facility]) mean corpuscular volume 92.4 fL 80.0-96.0 Mean Corpusc ular Volume ETHAN ([facility]) mean corpuscular HGB conc 33.2 g/dL 32.0-36.5 Mean Corpu scular HGB Conc ETHAN ([facility]) red cell distribution width 13.1 % 11.5-14.5 Red Cell Distribution Width ETHAN ([facility]) platelet count, automated 280 10 150-450 Platelet C ount, Automated ETHAN ([facility]) nucleated red blood cell % 0.0 % 0-0 Nucleated Red Blood Cell % [facility] ([facility]) ID Date Data Source [id number] 02/20/2020 09:03:00 AM EST PEPIN ([facility]) Name Value Range Interpretation Code Description Data Dee Dee rce(s) Supporting Document(s) Hemoglobin A1c/Hemoglobin.total in Blood 10.5 % Hemoglobin a1C [facility] ([facility]) estimated average glucose 255 mg/dL 60-110 Above high norm al Estimated Average Glucose [facility]) ID Date Data Source [id number] 02/20/2020 09:03:00 AM EST PEPIN ([facility]) Name Value Range Interpretation Code Description Data Dee Dee rce(s) Supporting Document(s) fer[facility]in 23 NG/[facility] 8-[facility] Data Source [id number] 02/20/2020 09:03:00 AM EST ETHAN ([facility]) Name Value Range Interpretation Code Description Data Dee Dee rce(s) Supporting Document(s) total 25(oh) vitamin D 32.0 NG/mL 30.0-100.0 Total 25(Oh) Vitamin D PEPIN ([facility]) ID Date Data Source [id number] 02/20/2020 09:03:00 AM EST ETHAN ([facility]) Name Value Range Interpretation Code Description Data Dee Dee rce(s) Supporting Document(s) iron (fe) 80 ug/dL 50-170 Iron (Fe) ETHAN ([facility]) total iron binding capacity 289 ug/dL 250-450 Total Ir on Binding Capacity ETHAN ([facility]) percent saturation 27.7 % 13.2-45.0 Percent Saturatio n ETHAN ([facility]) ID Date Data Source [id number] 02/20/2020 09:03:00 AM EST ETHAN ([facility]) Name Value Range Interpretation Code Description Data Dee Dee rce(s) Supporting Document(s) cholesterol level 162 mg/dL <200 Cholesterol Level ETHAN ([facility]) triglycerides level 298 mg/dL <150 Above high normal Triglycer ides Level ETHAN ([facility]) Cholesterol in LDL [Mass/volume] in Serum or Plasma 65 mg/dL <1 00 LDL Cholesterol ETHAN ([facility]) HDL cholesterol 37 mg/dL >40 Below low normal HDL Cholestero l ETHAN ([facility]) cholesterol risk ratio <5 Cholesterol R isk Ratio ETHAN ([facility]) non-HDL-C 125 mg/dL Non-hdl-c ETHAN ([facility]) ID Date Data Source [id number] 02/20/2020 09:03:00 AM EST ETHAN ([facility]) Name Value Range Interpretation Code Description Data Dee Dee rce(s) Supporting Document(s) glucose, fasting 236 mg/dL 70-100 Above high normal Glucose, Fas ting ETHAN ([facility]) blood urea nitrogen 14 mg/dL 7-18 Blood Urea Nitro gen ETHAN ([facility]) glomerular filtration rate > 60.0 >58 Glomerula r Filtration Rate ETHAN ([facility]) sodium level 135 mEq/L 136-145 Below low normal Sodium Level ATHE NA ([facility]) creatinine for GFR 0.65 mg/dL 0.55-1.30 Creatinine for GF R ETHAN ([facility]) chloride level 102 mEq/L 98-107 Chloride Level ETHAN ([facility]) potassium serum 4.4 mEq/L 3.5-5.1 Potassium Serum ATHE ([facility]) anion gap 6 mEq/L 8-16 Below low normal Anion Gap ETHAN ( [facility]) carbon dioxide level 27 mEq/L 21-32 Carbon Dioxide Level ETHAN ([facility]) ALT/SGPT 26 U/L 12-78 ALT/SGPT [facility] ([facility]) alkaline phosphatase 92 U/L 45-117 Alkaline Phosph atase ETHAN ([facility]) calcium level 9.4 mg/dL 8.5-10.1 Calcium Level ETHAN ( [facility]) AST/SGOT 10 U/L 7-37 AST/SGOT [facility] ([facility]) bilirubin,total 0.3 mg/dL 0.2-1.0 Bilirubin,total ATHE ([facility]) total protein 6.5 gm/dL 6.4-8.2 Total Protein ETHAN ( [facility]) albumin/globulin ratio 1.2-2.2 Below low normal Albumin /globulin Ratio ETHAN ([facility]) albumin 3.3 gm/dL 3.2-5.2 Albumin ETHAN ([facility]) ID Date Data Source [id number] 02/20/2020 09:03:00 AM EST ETHAN ([facility]) Name Value Range Interpretation Code Description Data Dee Dee rce(s) Supporting Document(s) red blood count 4.47 10 4.00-5.40 Red Blood Count ATHE ([facility]) white blood count 5.7 10 4.0-10.0 White Blood Count ETHAN ([facility]) hematocrit 41.3 % 36.0-47.0 Hematocrit ETHAN ([facility]) hemoglobin 13.7 g/dL 12.0-15.5 Hemoglobin ETHAN ([facility]) mean corpuscular volume 92.4 fL 80.0-96.0 Mean Corpusc ular Volume ETHAN ([facility]) mean corpuscular hemoglobin 30.6 pg 27.0-33.0 Mean Cor puscular Hemoglobin ETHAN ([facility]) red cell distribution width 13.1 % 11.5-14.5 Red Cell Distribution Width ETHAN ([facility]) platelet count, automated 280 10 150-450 Platelet C ount, Automated ETHAN ([facility]) mean corpuscular HGB conc 33.2 g/dL 32.0-36.5 Mean Corpu scular HGB Conc ETHAN ([facility]) nucleated red blood cell % 0.0 % 0-0 Nucleated Red Blood Cell % [facility] ([facility]) ID Date Data Source [id number] 02/20/2020 09:03:00 AM EST PEPIN ([facility]) Name Value Range Interpretation Code Description Data Dee Dee rce(s) Supporting Document(s) estimated average glucose 255 mg/dL 60-110 Above high norm al Estimated Average Glucose [facility] ([facility]) Hemoglobin A1c/Hemoglobin.total in Blood 10.5 % Hemoglobin a1C [facility] ([facility]) ID Date Data Source [id number] 02/20/2020 09:03:00 AM EST PEPIN ([facility]) Name Value Range Interpretation Code Description Data Dee Dee rce(s) Supporting Document(s) ferritin 23 NG/mL 8-252 Ferritin [facility]AN ([facility]) ID Date Data Source [id number] 02/20/2020 09:03:00 AM EST ETHAN ([facility]) Name Value Range Interpretation Code Description Data Dee Dee rce(s) Supporting Document(s) total 25(oh) vitamin D 32.0 NG/mL 30.0-100.0 Total 25(Oh) Vitamin D PE[facility] ([facility]) ID Date Data Source [id number] 02/20/2020 09:03:00 AM EST ETHAN ([facility]) Name Value Range Interpretation Code Description Data Dee Dee rce(s) Supporting Document(s) iron (fe) 80 ug/dL 50-170 Iron (Fe) ETHAN ([facility]) percent saturation 27.7 % 13.2-45.0 Percent Saturatio n ETHAN ([facility]) total iron binding capacity 289 ug/dL 250-450 Total Ir on Binding Capacity ETHAN ([facility]) ID Date Data Source [id number] 02/20/2020 09:03:00 AM EST ETHAN ([facility]) Name Value Range Interpretation Code Description Data Dee Dee rce(s) Supporting Document(s) triglycerides level 298 mg/dL <150 Above high normal Triglycer ides Level ETHAN ([facility]) Cholesterol in LDL [Mass/volume] in Serum or Plasma 65 mg/dL <1 00 LDL Cholesterol ETHAN ([facility]) HDL cholesterol 37 mg/dL >40 Below low normal HDL Cholestero l ETHAN ([facility]) cholesterol level 162 mg/dL <200 Cholesterol Level ETHAN ([facility]) cholesterol risk ratio <5 Cholesterol R isk Ratio ETHAN ([facility]) non-HDL-C 125 mg/dL Non-hdl-c [facility]AN ([facility]) ID Date Data Source [id number] 02/20/2020 09:03:00 AM EST ETHAN ([facility]) Name Value Range Interpretation Code Description Data Dee Dee rce(s) Supporting Document(s) glucose, fasting 236 mg/dL 70-100 Above high normal Glucose, Fas ting ETHAN ([facility]) blood urea nitrogen 14 mg/dL 7-18 Blood Urea Nitro gen ETHAN ([facility]) glomerular filtration rate > 60.0 >58 Glomerula r Filtration Rate ETHAN ([facility]) creatinine for GFR 0.65 mg/dL 0.55-1.30 Creatinine for GF R ETHAN ([facility]) carbon dioxide level 27 mEq/L 21-32 Carbon Dioxide Level ETHAN ([facility]) chloride level 102 mEq/L 98-107 Chloride Level ETHAN ([facility]) sodium level 135 mEq/L 136-145 Below low normal Sodium Level ATHE NA ([facility]) potassium serum 4.4 mEq/L 3.5-5.1 Potassium Serum ATHE NA ([facility]) AST/SGOT 10 U/L 7-37 AST/SGOT [facility] ([facility]) anion gap 6 mEq/L 8-16 Below low normal Anion Gap ETHAN ( [facility]) calcium level 9.4 mg/dL 8.5-10.1 Calcium Level [facility] ( [facility] [facility]) bilirubin,total 0.3 mg/dL 0.2-1.0 Bilirubin,total ATHE ([facility]) alkaline phosphatase 92 U/L 45-117 Alkaline Phosph atase ETHAN ([facility]) ALT/SGPT 26 U/L 12-78 ALT/SGPT ETHAN ([facility]) albumin 3.3 gm/dL 3.2-5.2 Albumin ETHAN ([facility]) total protein 6.5 gm/dL 6.4-8.2 Total Protein ETHAN ( [facility]) albumin/globulin ratio 1.2-2.2 Below low normal Albumin /globulin Ratio ETHAN ([facility]) ID Date Data Source [id number] 02/20/2020 09:03:00 AM EST ETHAN ([facility]) Name Value Range Interpretation Code Description Data Dee Dee rce(s) Supporting Document(s) white blood count 5.7 10 4.0-10.0 White Blood Count ETHAN ([facility]) red blood count 4.47 10 4.00-5.40 Red Blood Count ATHE ([facility]) hemoglobin 13.7 g/dL 12.0-15.5 Hemoglobin ETHAN ([facility]) mean corpuscular volume 92.4 fL 80.0-96.0 Mean Corpusc ular Volume ETHNA ([facility]) hematocrit 41.3 % 36.0-47.0 Hematocrit ETHAN ([facility]) mean corpuscular HGB conc 33.2 g/dL 32.0-36.5 Mean Corpu scular HGB Conc ETHAN ([facility]) mean corpuscular hemoglobin 30.6 pg 27.0-33.0 Mean Cor puscular Hemoglobin ETHAN ([facility]) red cell distribution width 13.1 % 11.5-14.5 Red Cell Distribution Width ETHAN ([facility]) platelet count, automated 280 10 150-450 Platelet C ount, Automated ETHAN ([facility]) nucleated red blood cell % 0.0 % 0-0 Nucleated Red Blood Cell % PEPIN ([facility]) ID Date Data Source [id number] 02/20/2020 09:03:00 AM EST PEPIN ([facility]) Name Value Range Interpretation Code Description Data Dee Dee rce(s) Supporting Document(s) estimated average glucose 255 mg/dL 60-110 Above high norm al Estimated Average Glucose PEPIN ([facility]) Hemoglobin A1c/Hemoglobin.total in Blood 10.5 % Hemoglobin a1C PEPIN ([facility]) ID Date Data Source [id number] 02/20/2020 09:03:00 AM EST PEPIN ([facility]) Name Value Range Interpretation Code Description Data Dee Dee rce(s) Supporting Document(s) ferritin 23 NG/mL 8-252 Ferritin ETHAN ([facility]) ID Date Data Source [id number] 02/20/2020 09:03:00 AM EST PEPIN ([facility]) Name Value Range Interpretation Code Description Data Dee Dee rce(s) Supporting Document(s) total 25(oh) vitamin D 32.0 NG/mL 30.0-100.0 Total 25(Oh) Vitamin D PEPIN ([facility]) ID Date Data Source [id number] 02/20/2020 09:03:00 AM EST ETHAN ([facility]) Name Value Range Interpretation Code Description Data Dee Dee rce(s) Supporting Document(s) iron (fe) 80 ug/dL 50-170 Iron (Fe) ETHAN ([facility]) total iron binding capacity 289 ug/dL 250-450 Total Ir on Binding Capacity ETHAN ([facility]) percent saturation 27.7 % 13.2-45.0 Percent Saturatio n ETHAN ([facility]) ID Date Data Source [id number] 02/20/2020 09:03:00 AM EST ETHAN ([facility]) Name Value Range Interpretation Code Description Data Dee Dee rce(s) Supporting Document(s) triglycerides level 298 mg/dL <150 Above high normal Triglycer ides Level ETHAN ([facility]) cholesterol level 162 mg/dL <200 Cholesterol Level ETHAN ([facility]) HDL cholesterol 37 mg/dL >40 Below low normal HDL Cholestero l ETHAN ([facility]) Cholesterol in LDL [Mass/volume] in Serum or Plasma 65 mg/dL <1 00 LDL Cholesterol ETHAN ([facility]) non-HDL-C 125 mg/dL Non-hdl-c ETHAN ([facility]) cholesterol risk ratio <5 Cholesterol R isk Ratio ETHAN ([facility]) ID Date Data Source [id number] 02/20/2020 09:03:00 AM EST ETHAN ([facility]) Name Value Range Interpretation Code Description Data Dee Dee rce(s) Supporting Document(s) blood urea nitrogen 14 mg/dL 7-18 Blood Urea Nitro gen ETHAN ([facility]) glucose, fasting 236 mg/dL 70-100 Above high normal Glucose, Fas ting ETHAN ([facility]) creatinine for GFR 0.65 mg/dL 0.55-1.30 Creatinine for GF R ETHAN ([facility]) potassium serum 4.4 mEq/L 3.5-5.1 Potassium Serum ATHE NA ([facility]) glomerular filtration rate > 60.0 >58 Glomerula r Filtration Rate ETHAN ([facility]) sodium level 135 mEq/L 136-145 Below low normal Sodium Level ATHE NA ([facility]) carbon dioxide level 27 mEq/L 21-32 Carbon Dioxide Level ETHAN ([facility]) chloride level 102 mEq/L 98-107 Chloride Level ETHAN ([facility]) anion gap 6 mEq/L 8-16 Below low normal Anion Gap ETHAN ( [facility]) calcium level 9.4 mg/dL 8.5-10.1 Calcium Level ETHAN ( [facility]) AST/SGOT 10 U/L 7-37 AST/SGOT ETHAN ([facility]) alkaline phosphatase 92 U/L 45-117 Alkaline Phosph atase ETHAN ([facility]) ALT/SGPT 26 U/L 12-78 ALT/SGPT ETHAN ([facility]) bilirubin,total 0.3 mg/dL 0.2-1.0 Bilirubin,total ATHE NA ([facility]) albumin 3.3 gm/dL 3.2-5.2 Albumin ETHAN ([facility]) total protein 6.5 gm/dL 6.4-8.2 Total Protein ETHAN ( [facility]) albumin/globulin ratio 1.2-2.2 Below low normal Albumin /globulin Ratio ETHAN ([facility]) ID Date Data Source [id number] 02/20/2020 09:03:00 AM EST ETHAN ([facility]) Name Value Range Interpretation Code Description Data Dee Dee rce(s) Supporting Document(s) white blood count 5.7 10 4.0-10.0 White Blood Count ETHAN ([facility]) red blood count 4.47 10 4.00-5.40 Red Blood Count ATHE ([facility]) hemoglobin 13.7 g/dL 12.0-15.5 Hemoglobin ETHAN ([facility]) hematocrit 41.3 % 36.0-47.0 Hematocrit ETHAN ([facility]) mean corpuscular volume 92.4 fL 80.0-96.0 Mean Corpusc ular Volume ETHAN ([facility]) mean corpuscular hemoglobin 30.6 pg 27.0-33.0 Mean Cor puscular Hemoglobin ETHAN ([facility]) mean corpuscular HGB conc 33.2 g/dL 32.0-36.5 Mean Corpu scular HGB Conc ETHAN ([facility]) red cell distribution width 13.1 % 11.5-14.5 Red Cell Distribution Width ETHAN ([facility]) platelet count, automated 280 10 150-450 Platelet C ount, Automated ETHAN ([facility]) nucleated red blood cell % 0.0 % 0-0 Nucleated Red Blood Cell % ETHAN ([facility]) ID Date Data Source [id number] 02/20/2020 09:03:00 AM EST ETHAN ([facility]) Name Value Range Interpretation Code Description Data Dee Dee rce(s) Supporting Document(s) Hemoglobin A1c/Hemoglobin.total in Blood 10.5 % Hemoglobin a1C PEPIN ([facility]) estimated average glucose 255 mg/dL 60-110 Above high norm al Estimated Average Glucose PEPIN ([facility]) ID Date Data Source [id number] 02/20/2020 09:03:00 AM EST ETHAN ([facility]) Name Value Range Interpretation Code Description Data Dee Dee rce(s) Supporting Document(s) ferritin 23 NG/mL 8-252 Ferritin ETHAN ([facility]) ID Date Data Source [id number] 02/20/2020 09:03:00 AM EST ETHAN ([facility]) Name Value Range Interpretation Code Description Data Dee Dee rce(s) Supporting Document(s) total 25(oh) vitamin D 32.0 NG/mL 30.0-100.0 Total 25(Oh) Vitamin D PEPIN ([facility]) ID Date Data Source [id number] 02/20/2020 09:03:00 AM EST ETHAN ([facility]) Name Value Range Interpretation Code Description Data Dee Dee rce(s) Supporting Document(s) total iron binding capacity 289 ug/dL 250-450 Total Ir on Binding Capacity ETHAN ([facility]) iron (fe) 80 ug/dL 50-170 Iron (Fe) ETHAN ([facility]) percent saturation 27.7 % 13.2-45.0 Percent Saturatio n ETHAN ([facility]) ID Date Data Source [id number] 02/20/2020 09:03:00 AM EST ETHAN ([facility]) Name Value Range Interpretation Code Description Data Dee Dee rce(s) Supporting Document(s) triglycerides level 298 mg/dL <150 Above high normal Triglycer ides Level ETHAN ([facility]) cholesterol level 162 mg/dL <200 Cholesterol Level ETHAN ([facility]) HDL cholesterol 37 mg/dL >40 Below low normal HDL Cholestero l ETHAN ([facility]) Cholesterol in LDL [Mass/volume] in Serum or Plasma 65 mg/dL <1 00 LDL Cholesterol ETHAN ([facility]) non-HDL-C 125 mg/dL Non-hdl-c ETHAN ([facility]) cholesterol risk ratio <5 Cholesterol R isk Ratio ETHAN ([facility]) ID Date Data Source [id number] 02/20/2020 09:03:00 AM EST ETHAN ([facility]) Name Value Range Interpretation Code Description Data Dee Dee rce(s) Supporting Document(s) glucose, fasting 236 mg/dL 70-100 Above high normal Glucose, Fas ting ETHAN ([facility]) blood urea nitrogen 14 mg/dL 7-18 Blood Urea Nitro gen ETHAN ([facility]) glomerular filtration rate > 60.0 >58 Glomerula r Filtration Rate ETHAN ([facility]) creatinine for GFR 0.65 mg/dL 0.55-1.30 Creatinine for GF R ETHAN ([facility]) potassium serum 4.4 mEq/L 3.5-5.1 Potassium Serum ATHE NA ([facility]) sodium level 135 mEq/L 136-145 Below low normal Sodium Level ATHE NA ([facility]) chloride level 102 mEq/L 98-107 Chloride Level ETHAN ([facility]) carbon dioxide level 27 mEq/L 21-32 Carbon Dioxide Level ETHAN ([facility]) anion gap 6 mEq/L 8-16 Below low normal Anion Gap ETHAN ( [facility]) AST/SGOT 10 U/L 7-37 AST/SGOT ETHAN ([facility]) calcium level 9.4 mg/dL 8.5-10.1 Calcium Level ETHAN ( [facility]) ALT/SGPT 26 U/L 12-78 ALT/SGPT ETHAN ([facility]) bilirubin,total 0.3 mg/dL 0.2-1.0 Bilirubin,total ATHE ([facility]) alkaline phosphatase 92 U/L 45-117 Alkaline Phosph atase ETHAN ([facility]) total protein 6.5 gm/dL 6.4-8.2 Total Protein ETHAN ( [facility]) albumin 3.3 gm/dL 3.2-5.2 Albumin ETHAN ([facility]) albumin/globulin ratio 1.2-2.2 Below low normal Albumin /globulin Ratio ETHAN ([facility]) ID Date Data Source [id number] 02/20/2020 09:03:00 AM EST ETHAN ([facility]) Name Value Range Interpretation Code Description Data Dee Dee rce(s) Supporting Document(s) white blood count 5.7 10 4.0-10.0 White Blood Count ETHAN ([facility]) hemoglobin 13.7 g/dL 12.0-15.5 Hemoglobin ETHAN ([facility]) red blood count 4.47 10 4.00-5.40 Red Blood Count ATHE ([facility]) hematocrit 41.3 % 36.0-47.0 Hematocrit ETHAN ([facility]) mean corpuscular hemoglobin 30.6 pg 27.0-33.0 Mean Cor puscular Hemoglobin ETHAN ([facility]) mean corpuscular volume 92.4 fL 80.0-96.0 Mean Corpusc ular Volume PEPIN ([facility]) red cell distribution width 13.1 % 11.5-14.5 Red Cell Distribution Width PEPIN ([facility]) mean corpuscular HGB conc 33.2 g/dL 32.0-36.5 Mean Corpu scular HGB Conc ETHAN ([facility]) platelet count, automated 280 10 150-450 Platelet C ount, Automated ETHAN ([facility]) nucleated red blood cell % 0.0 % 0-0 Nucleated Red Blood Cell % PEPIN ([facility]) ID Date Data Source [id number] 02/20/2020 09:03:00 AM EST ETHAN ([facility]) Name Value Range Interpretation Code Description Data Dee Dee rce(s) Supporting Document(s) estimated average glucose 255 mg/dL 60-110 Above high norm al Estimated Average Glucose PEPIN ([facility]) Hemoglobin A1c/Hemoglobin.total in Blood 10.5 % Hemoglobin a1C PEPIN ([facility]) ID Date Data Source [id number] 02/20/2020 09:03:00 AM EST ETHAN ([facility]) Name Value Range Interpretation Code Description Data Dee Dee rce(s) Supporting Document(s) ferritin 23 NG/mL 8-252 Ferritin ETHAN ([facility]) ID Date Data Source [id number] 02/20/2020 09:03:00 AM EST ETHAN ([facility]) Name Value Range Interpretation Code Description Data Dee Dee rce(s) Supporting Document(s) total 25(oh) vitamin D 32.0 NG/mL 30.0-100.0 Total 25(Oh) Vitamin D [facility]) ID Date Data Source [id number] 02/20/2020 09:03:00 AM EST ETHAN ([facility]) Name Value Range Interpretation Code Description Data Dee Dee rce(s) Supporting Document(s) total iron binding capacity 289 ug/dL 250-450 Total Ir on Binding Capacity ETHAN ([facility]) iron (fe) 80 ug/dL 50-170 Iron (Fe) PEPIN ([facility]) percent saturation 27.7 % 13.2-45.0 Percent Saturatio n ETHAN ([facility]) ID Date Data Source [id number] 12/24/2019 10:22:02 AM EDT [facility] Measurements & CalculationsHeight: 67 inches (5 ft. 7 in.) 170.18 cm Weight: 349.8 pounds 159 kg Body Mass Index (BMI): 54.98BMI Interpretation: Morbidly ObeseBody Surface Area (BSA): 2.57Weight Management Education Done (Nutrition/Physical Activity)Vital SignsTemperature: 97.9F 36.61C tympanic Pulse Rate: 97 beats/minuteRespiratory Rate: 18 respirations/minuteBlood Pressure: 133/86 left arm sitting automaticO2 Saturation: 97% Vital Signs performed by: Vandana Murphy LPN, December 24, 2019 10:22 AMAdult Questionnaire1) Does the patient have a long-term health problem with heart disease, lung disease, asthma, kidney disease, metabolic disease (e.g., diabetes), anemia, or other blood disorder? No2) Does the patient have allergies to medications, food, a vaccine component, or latex? No3) Does the patient have cancer, leukemia, AIDS, or any other immune system problem? No4) Does the patient live with or expect to have close contact with a person whose immune system is severely compromised and who must be in protective isolation (e.g., an isolation room of a bone marrow transplant unit)? No5) Does the patient take cortisone, prednisone, other steroids, or anticancer drugs, or has the patient had radiation treatments? No6) During the past year, has the patient received a transfusion of blood or blood products, or been given immune (gamma) globulin or an antiviral drug? No7) For women: Is the patient or is there a chance she could become during the next month? No8) Has the patient ever had a serious reaction to a vaccine in the past? No9) Has the patient had a seizure or a brain or other nervous system problem? No10) Has the patient received any vaccinations in the past 4 weeks? No11) Is the patient older than age 49 years? No12) Is the patient sick today? No13) Vaccine information given and explained to patient? YesVaccines Administer ed/Entered:Vaccination Group: InfluenzaSeries: 1Vaccination: Flulaval Quadrivalent Intramuscular Suspension Prefilled Syringe 0.5 MLMfr / Lot# / Exp.Date: HiConversion / [id number] / 1Amt. Given / Route / Site: 0.5 mL / IM / Right DeltoidNDC / CVX: [id number] / 150Administered Date: 12/24/2019 11:48VFC Eligibility: Not VFC EligibleVIS Date: 10/24/2018VIS Given / VIS Given On: Yes / 12/24/2019Comments: Administered by: Vandana Murphy LPN Initial Intake Information From: patientRoom #: 1Infectious Disease / Travel ScreeningRecent travel for you or any close contacts? NoHave you had any close contact with anyone diagnosed with or under investigation for COVID-19 (coronavirus)? NoFever? NoRespiratory symptoms: cough, cold, congestion, shortness of breath, difficulty breathing? NoLoss of smell? NoLoss of taste? NoSmoking, Tobacco, Vaping or Smoke Exposure StatusSmoke Status: never smokerTobacco Use: NoDo you vape? NoPassive Smoke Exposure: NoMenstrual HistoryLast Menstrual Period (LMP): 11/04/2019Any possibility of ? NoComments: BCHealthcare HistorySince your last office visit...Have you been admitted to the hospital? NoHave you been to an emergency room (ER) or urgent care clinic? No - wellnow vaginitisEmergency room (ER) or urgent care date reported today: 07/15/2019Have you seen another healthcare provider? Yes - TLSHave you seen a dentist? No - in house refferalDental exam date reported today: >10yrsIntake performed by: Vandana Murphy LPN, December 24, 2019 10:23 AMRate Your HealthIn general, would you say your health is? FairPain AssessmentAre you currently having any pain which... You would like your provider to address? No Affects your activity level? NoDepression Screening - PHQ-2Over the last two weeks, have you... Had little interest or pleasure in doing things? Several days Been feeling down, depressed, or hopeless? Several days PHQ-2 Score: 2Anxiety Screening - SAUL-2Over the last two weeks, have you been... Feeling nervous, anxious, or on edge? Several days Unable to stop or control worrying? Several days SAUL-2 Score: 2Food InsecurityWithin the past year...Did you worry whether your food would run out before you got money to buy more? Never trueWas there a time when the food you bought didn't last and you didn't have money to get more? Never trueGeneralized Anxiety Disorder 7-Item Screening (SAUL-7)Answer Guide:0 = Not at all1 = Several days2 = Over half the days3 = Nearly every dayOver the last 2 weeks, how often have you been bothered by the following problems?Feeling nervous, anxious, or on edge: 1Not being able to stop or control worryinWorrying too much about different things: 1Trouble relaxinBeing so restless that it's hard to sit still: 1Becoming easily annoyed or irritable: 1Feeling afraid as if something awful might happen: 1Answer Guide:0 = Not difficult at all1 = Somewhat difficult2 = Very difficult3 = Extremely difficultHow difficult have these made it for you to do your work, take care of things at home, or get along with other people? 1GAD-7 Screening Results SAUL-2 Score: 2GAD-7 Score: 7Functional Impairment: Somewhat difficultRecommendation: Mild anxietyPHQ-9 1. Over the last 2 weeks, patient reports the following frequency of symptoms: a. Little interest or pleasure in doing things -Several days b. Feeling down, depressed, or hopeless -Several days c. Trouble falling asleep, staying asleep, or sleeping too much - Several days d. Feeling tired or having little energy -Several days e. Poor appetite or overeating -Several days f. Feeling bad about yourself, feeling that you are a failure, or feeling that you have let yourself or your family down -Several days g. Trouble concentrating on things such as reading the newspaper or watching television -Several days h. Moving or speaking so slowly that other people could have noticed. Or being so fidgety or restless that you have been moving around a lot more than usual -Several days i. Thinking that you would be better off or that you want to hurt yourself in some way -Not at all2. If you checked off any problems, how difficult have these problems made it for you to do your work, take care of things at home, or get along with other people? -Somewhat DifficultToday's PHQ-9 Results Score: 8 Severity: Mild Diagnosis Recommendation: No recommendation Functional Impairment: Somewhat DifficultToday's Follow-Up Action Depression follow-up done. Follow-Up Action: Continue To Take Medications as PrescribedScreening, Brief Intervention, & Referral to Treatment (SBIRT)Pre-Screening Questions How many times have you have 4 or more drinks in a day? 0How many times have you used an illegal drug or used a prescription medication for a non-medical reason? 0Performed by: Vandana Murphy LPN, December 24, 2019 10:24 AMPatient History Medical History:Anxiety DisorderDepressionDiabetes, Type 2D E S ExposurePTSDOCDNeuropathySurgical History:D&CFamily History:FH DepressionFH DiabetesFH Heart DiseaseDiabetes (Father)Heart disease (Mother)Social/Personal History: Chief Complaintfollow-up visitHistory of Present Illness (HPI)44 yo female presents for 1 week follow up. Pt reports feeling much better. She isn't using oxygen or nebulizer. Using ventolin as needed. Pt states edema resolved within a few days, she is back to taking her usual HCTZ once daily. Afebrile since last visit. Would like flu vaccine today.Urine culture from last visit w as contaminated, no clear indication of UTI. Pt would like something for heartburn. Reports years of heartburn, but worse more recently. Pt continues to have blurring in her left eye. Called [facility] week, they told her they'd call her back and she hasn't heard back yet. HPI performed by: Kentrell OSUNA, December 24, 2019 10:36 AMTransitions of Care InboundProblem ReviewProblem List was reviewed and/or updated during this visit.Medication Reconciliation & ReviewMedication List was reviewed and/or updated during this visit, including review of any nlce-ead-rxwmygf medications, herbal therapies, and/or supplements.Allergy ReviewAllergy List was reviewed and/or updated during this visit.Adult Preventive CareLabs/Meds/Other Counseling-Nutrition and Physical Activity:BMI Interpretation: Morbidly Obese (12/24/2019) Counseling: Done (12/24/2019) Physical Activity: Done (12/24/2019)Review of Systems General: Denies loss of appetite, chills, dizziness, fatigue, fever, headache, feeling ill. Eyes: Complains of see HPI, blurring of vision. Ears/Nose/Throat: Denies earache, nasal congestion, sore throat. Cardiovascular: Denies chest pain, palpitations, feeling faint, peripheral edema. Respiratory: Denies cough, difficulty breathing, shortness of breath, excessive sputum, coughing up blood, wheezing, chest pain. Gastrointestinal: Complains of heartburn. Denies nausea, vomiting, diarrhea, blood in stool, black or tarry stools. Genitourinary: Denies pain with urination, burning with urination, blood in urine. Neurologic: Denies weakness, feeling faint. Physical ExamGeneral Appearance: well nourished, well hydrated, no acute distress, obese femaleRespiratory, Auscultation: clear to auscultation bilaterally; no rales, rhonchi, or wheezesRespiratory, Effort: no intercostal retractions or use of accessory musclesCardiovascular, Auscultation: S1, S2 audible; no murmur, rub, or gallop; RRRPeripheral Circulation: no clubbing, cyanosis, or varicosities, nonpitting edema, calves supple and nontenderAbdomen: soft, non-tender, no masses, bowel sounds normalGait & Station: normalOrientation: oriented to time, place, and personMood & Affect: somewhat flat affect, speech clear, good eye contactJudgment & Insight: intactCare Management Plan Transitions of CareInboundRate Your HealthIn general, would you say your health is? FairAssessment & Plan Problems:Added: Gastro-esophageal reflux disease without esophagitis (ICD-530.81) (OIE65-R40.9) Assessment: Instructions: Omeprazole daily x 30 days. Low acid diet.Assessed:COVID-19 (JZB91-V12.1) Assessment: Instructions: Symptoms continue to improve, now only requiring as needed albuterol. Call for any worsening symptoms.Dyspnea (ICD-786.05) (YSY94-K63.02) Assessment: Instructions: As above.Ankle edema (ICD-719.07) (XOF29-G08.0) Assessment: Instructions: Continue your routine once daily dose of hydrochlorothiazide.Needs vaccination for influenza (ICD-V04.81) (QBH98-J51) Assessment: Instructions: Flu vaccine today.Hyperglycemia due to type 2 diabetes mellitus (BFK40-S27.65) Assessment: Instructions: Update labs in 2 months at next visit.Removed:Increased frequency of urination (ICD-788.41) (JRN21-W19.0)Patient Instructions/Care Plan: COVID-19: Symptoms continue to improve, now only requiring as needed albuterol. Call for any worsening symptoms.Dyspnea: As above.Ankle edema: Continue your routine once daily dose of hydrochlorothiazide.Needs vaccination for influenza: Flu vaccine today.Hyperglycemia due to type 2 diabetes mellitus: Update labs in 2 months at next visit.Gastro-esophageal reflux disease without esophagitis: Omeprazole daily x 30 days. Low acid diet. Plan developed in collaboration with patient and/or familyMedications:OMEPRAZOLE 20 MG ORAL CAPSULE DELAYED RELEASEALBUTEROL SULFATE HFA 108 (90 BASE) MCG/ACT INHALATION AEROSOL SOLUTIONALBUTEROL SULFATE (2.5 MG/3ML) 0.083% INHALATION NEBULIZATION SOLUTIONNAPROXEN 500 MG ORAL TABLETFERROUS SULFATE 325 (65 FE) MG ORAL TABLET DELAYED RELEASEVITAMIN D3 50 MCG (2000 UT) ORAL CAPSULEHYDROCHLOROTHIAZIDE 12.5 MG ORAL CAPSULETRULICITY 1.5 MG/0.5ML SUBCUTANEOUS SOLUTION PEN- INJECTORSERTRALINE HCL 100 MG ORAL TABLETJANUVIA 50 MG ORAL TABLETBLOOD GLUCOSE TEST IN VITRO STRIPLANCETSBLOOD GLUCOSE MONITOR SYSTEM W/DEVICE KITGLYBURIDE 5 MG ORAL TABLETLISINOPRIL 5 MG ORAL TABLETGABAPENTIN 800 MG ORAL TABLETMETFORMIN HCL 1000 MG ORAL TABLETMedication Changes:New Prescription:OMEPRAZOLE 20 MG ORAL CAPSULE DELAYED RELEASE-Take 1 capsule po QAM Qty: 30[Capsule] Refills: 0 Method: ElectronicRemoved:NEBULIZER-machine with adult mask and tubing Qty: 1[Device] Refills: 0Allergies:PENICILLIN (Critical)Orders:Adult - Ofc Vst, EST, Level III [CPT-73579] FluLaval Quadrivalent, preservative free [CPT-14154] Follow-Up Return to clinic: in 2 months for follow upAdditional Follow-Up: T2DM after labsClinical Visit Summary Completed Name Value Range Interpretation Code Description Data Dee Dee rce(s) Supporting Document(s) ID Date Data Source [id number] 12/17/2019 03:06:21 PM EDT [facility] Measurements & CalculationsHeight: 67 inches (5 ft. 7 in.) 170.18 cm Weight: 367.6 pounds 167.09 kg Body Mass Index (BMI): 57.78BMI Interpretation: Morbidly ObeseBody Surface Area (BSA): 2.62Vital SignsTemperature: 98.3F 36.83C tympanic Pulse Rate: 102 beats/minuteRespiratory Rate: 18 respirations/minuteBlood Pressure: 144/92 right arm sitting automaticO2 Saturation: 96% Vital Signs performed by: Vandana Murphy LPN, December 17, 2019 3:06 PMLabs In-House Urine TestsDate/Time Collected: December 17, 2019 4:15 PMDate/Time Received: December 17, 2019 4:15 PMTest Result Reference Range Normal ValueRoutine Urinalysis Color: yellow Yellow Appearance: cloudy Clear Leukocytes: negative Negative Nitrite: negative Negative Urobilinogen: 3.5 Negative Protein: 0.15 Negative pH: 6.5 5.0-6.5 Blood: 10 Negative Specific [place]: 1.020 1.020>=1.030 Ketone: 0.5 Negative Bilirubin: negative Negative Glucose: 60 NegativeCobenito Murphy LPN, December 17, 2019 4:15 PMInitial Intake Information From: patientRoom #: 2Infectious Disease / Travel ScreeningRecent travel for you or any close contacts? NoHave you had any close contact with anyone diagnosed with or under investigation for COVID-19 (coronavirus)? YesFever? NoRespiratory symptoms: cough, cold, congestion, shortness of breath, difficulty breathing? NoLoss of smell? NoLoss of taste? NoDetails: quarantine is upSmoking, Tobacco, Vaping or Smoke Exposure StatusSmoke Status: never smokerTobacco Use: NoDo you vape? NoPassive Smoke Exposure: NoMenstrual HistoryLast Menstrual Period (LMP): 12/04/2019Any possibility of ? NoHealthcare HistorySince your last office visit. ..Have you been admitted to the hospital? Yes - covidHospital admission date reported today: 12/04/2019Have you been to an emergency room (ER) or urgent care clinic? NoHave you seen another healthcare provider? YesHave you seen a dentist? NoIntake performed by: Vandana Murphy LPN, December 17, 2019 3:12 PMRate Your HealthIn general, would you say your health is? FairPain AssessmentAre you currently having any pain which... You would like your provider to address? Yes Affects your activity level? YesDepression Screening - PHQ-2Over the last two weeks, have you... Had little interest or pleasure in doing things? Several days Been feeling down, depressed, or hopeless? Several days PHQ-2 Score: 2Anxiety Screening - SAUL-2Over the last two weeks, have you been... Feeling nervous, anxious, or on edge? Several days Unable to stop or control worrying? Several days SAUL-2 Score: 2Food InsecurityWithin the past year...Did you worry whether your food would run out before you got mo magalys to buy more? Never trueWas there a time when the food you bought didn't last and you didn't have money to get more? Never trueGeneralized Anxiety Disorder 7- Item Screening (SAUL-7)Answer Guide:0 = Not at all1 = Several days2 = Over half the days3 = Nearly every dayOver the last 2 weeks, how often have you been bothered by the following problems?Feeling nervous, anxious, or on edge: 1Not being able to stop or control worryinWorrying too much about different things: 1Trouble relaxinBeing so restless that it's hard to sit still: 1Becoming easily annoyed or irritable: 1Feeling afraid as if something awful might happen: 1Answer Guide:0 = Not difficult at all1 = Somewhat difficult2 = Very difficult3 = Extremely difficultHow difficult have these made it for you to do your work, take care of things at home, or get along with other people? 1GAD- 7 Screening Results SAUL-2 Score: 2GAD-7 Score: 7Functional Impairment: Somewhat difficultRecommendation: Mild anxietyPHQ-9 1. Over the last 2 weeks, patient reports the following frequency of symptoms: a. Little interest or pleasure in doing things -Several days b. Feeling down, depressed, or hopeless -Several days c. Trouble falling asleep, staying asleep, or sleeping too much -Several days d. Feeling tired or having little energy -Several days e. Poor appetite or overeating -Several days f. Feeling bad about yourself, feeling that you are a failure, or feeling that you have let yourself or your family down - Several days g. Trouble concentrating on things such as reading the newspaper or watching television -Several days h. Moving or speaking so slowly that other people could have noticed. Or being so fidgety or restless that you have been moving around a lot more than usual -Several days i. Thinking that you would be better off or that you want to hurt yourself in some way -Not at all2. If you checked off any problems, how difficult have these problems made it for you to do your work, take care of things at home, or get along with other people? -Somewhat DifficultToday's PHQ-9 Results Score: 8 Severity: Mild Diagnosis Recommendation: No recommendation Functional Impairment: Somewhat DifficultToday's Follow-Up Action Depression follow-up done. Follow-Up Action: Showing Improvement, No Changes NecessaryPain AssessmentLocation: left eyeOther DescriptorsComments: Left eye blurr/ sensitive to light. All around/ behind left eye. Screening, Brief Intervention, & Referral to Treatment (SBIRT)Pre-Screening Questions How many times have you have 4 or more drinks in a day? 0How many times have you used an illegal drug or used a prescription medication for a non-medical reason? 0Performed by: Vandana Murphy LPN, December 17, 2019 3:14 PMPatient History Medical History:Anxiety DisorderDepressionDiabetes, Type 2D E S ExposurePTSDOCDNeuropathySurgical History:D&CFamily History:FH DepressionFH DiabetesFH Heart DiseaseDiabetes (Father)Heart disease (Mother)Social/Personal History: Chief Complainttrouble breathing/swellingHistory of Present Illness (HPI)Pt is a 44 y/o female, presents for hospital discharge. Pt was admitted to [facility] for COVID19 with pneumonia from 12/04/2019-12/05/2019. Pt overall feels "100% better" than when she was admitted. She is concerned about ongoing fatigue, shortness of breath at night, wheezing with exertion (usually relieved by Ventolin inhaler), and b/l LE edema. Pt states she had the edema in the hospital as well and it's unchanged since being home. No medications changed at discharge aside from the addition of Ventolin. Transitions of Care InboundProblem ReviewProblem List was reviewed and/or updated during this visit.Medication Reconciliation & ReviewMedication List was reviewed and/or updated during this visit, including review of any eigh-yks-urlgkqa medications, herbal therapies, and/or supplements.Allergy ReviewAllergy List was reviewed and/or updated during this visit.Review of Systems General: Complains of fatigue, feeling ill. Denies chills, dizziness, fever, continued fever, sweats. Ears/Nose/Throat: Denies earache, nasal congestion, sore throat, difficulty swallowing. Cardiovascular: Complains of peripheral edema. Denies chest pain, palpitations, feeling faint. Respiratory: Complains of cough, shortness of breath, wheezing. Denies excessive sputum, coughing up blood, chest pain. Gastrointestinal: Denies nausea, vomiting, diarrhea, pain or discomfort. Neurologic: Denies weakness, numbness/tingling, feeling faint. Physical ExamGeneral Appearance: well nourished, well hydrated, no acute distress, obese femaleEyes, External: conjun ctivae and lids normal, EOMIRespiratory, Auscultation: clear to auscultation bilaterally; no rales, rhonchi, or wheezesRespiratory, Effort: no intercostal retractions or use of accessory musclesCardiovascular, Auscultation: S1, S2 audible; no murmur, rub, or gallop; RRRPeripheral Circulation: 1+ edema b/l, nontenderAbdomen: soft, non-tender, no masses, bowel sounds normalGait & Station: normalOrientation: oriented to time, place, and personMood & Affect: somewhat flat affect, speech clear, good eye contactJudgment & Insight: intactCare Management Plan Transitions of CareInboundRate Your HealthIn general, would you say your health is? FairAssessment & Plan Problems:Added: Dyspnea (ICD-786.05) (KWS61-P61.02)COVID-19 (LBU87-T50.1) Assessment: Instructions: Overall symptoms are improving. Ventolin inhaler if you're out of the house. Please continue oxygen at night as you are still symptomatic. Recommend nebulized albuterol during the day as needed. Call for worsening symptoms. This will continue to take time before you feel back to your normal self, dry cough may linger for a few more weeks as well. Limit exposure to others to air on the side of caution, despite being released from your quarantine.Increased frequency of urination (ICD-788.41) (YWQ57-L77.0) Assessment: Instructions: No sign of infection. Urine sent for culture and I will call you if this needs antibiotics based on culture.Assessed:Ankle edema (ICD-719.07) (YQT88-P14.0) Assessment: Instructions: Increase hydrochlorothiazide to 2 tablets daily for the next 5 days, then reduce back to your normal 1 tablet daily. Limit salt intake. Low suspicion for blood clot as this is in both legs and worsening of a chronic illness.Patient Instructions/Care Plan: COVID-19: Overall symptoms are improving. Ventolin inhaler if you're out of the house. Please continue oxygen at night as you are still symptomatic. Recommend nebulized albuterol during the day as needed. Call for worsening symptoms. This will continue to take time before you feel back to your normal self, dry cough may linger for a few more weeks as well. Limit exposure to others to air on the side of caution, despite being released from your quarantine.Ankle edema: Increase hydrochlorothiazide to 2 tablets daily for the next 5 days, then reduce back to your normal 1 tablet daily. Limit salt intake. Low suspicion for blood clot as this is in both legs and worsening of a chronic illness.Increased frequency of urination: No sign of infection. Urine sent for culture and I will call you if this needs antibiotics based on culture. Plan developed in collaboration with patient and/or familyMedications:ALBUTEROL SULFATE HFA 108 (90 BASE) MCG/ACT INHALATION AEROSOL SOLUTIONNEBULIZERALBUTEROL SULFATE (2.5 MG/3ML) 0.083% INHALATION NEBULIZATION SOLUTIONNAPROXEN 500 MG ORAL TABLETFERROUS SULFATE 325 (65 FE) MG ORAL TABLET DELAYED RELEASEVITAMIN D3 50 MCG (1999 UT) ORAL CAPSULEHYDROCHLOROTHIAZIDE 12.5 MG ORAL CAPSULETRULICITY 1.5 MG/0.5ML SUBCUTANEOUS SOLUTION PEN- INJECTORSERTRALINE HCL 100 MG ORAL TABLETJANUVIA 50 MG ORAL TABLETBLOOD GLUCOSE TEST IN VITRO STRIPLANCETSBLOOD GLUCOSE MONITOR SYSTEM W/DEVICE KITGLYBURIDE 5 MG ORAL TABLETLISINOPRIL 5 MG ORAL TABLETGABAPENTIN 800 MG ORAL TABLETMETFORMIN HCL 1000 MG ORAL TABLETMedication Changes:New Prescription:ALBUTEROL SULFATE (2.5 MG/3ML) 0.083% INHALATION NEBULIZATION SOLUTION-1 vial q 4-6hrs prn wheezing/shortness of breath Qty: 1[Box] Refills: 0 Method: ElectronicNEBULIZER-machine with adult mask and tubing Qty: 1[Device] Refills: 0 Method: ElectronicALBUTEROL SULFATE HFA 108 (90 BASE) MCG/ACT INHALATION AEROSOL SOLUTION-Take 2 puffs oral inhalation q 4 hrs prn wheezing or shortness of breath Qty: 1[Container] Refills: 1 Method: ElectronicAllergies:PENICILL IN (Critical)Orders:Urinalysis-automated [CPT-24435] Urine Culture & Sensitivity [CPT-55326] Adult - Ofc Vst, EST, Level III [CPT-43976] Follow-Up Return to clinic: in 1 week for follow upAdditional Follow-Up: telehealth follow- upClinical Visit Summary CompletedMedications:ALBUTEROL SULFATE HFA 108 (90 BASE) MCG/ACT INHALATION AEROSOL SOLUTION (ALBUTEROL SULFATE) Take 2 puffs oral inhalation q 4 hrs prn wheezing or shortness of breath #1[Container] x 1 Route:INHALATION Entered and Authorized by: Kentrell OSUNA Method used: Electronically to [facility] (retail) [address] [place] [address] Fax: Note to Pharmacy: Route: INHALATION; Indications: COVID- 19;DYSPNEA RxID: [id number] (NEBULIZERS) machine with adult mask and tubing #1[Device] x 0 Entered and Authorized by: Kentrell OSUNA Method used: Electronically to [facility] (paymio) [address] [place] [address] Indications: COVID-19;DYSPNEA RxID: [id number] SULFATE (2.5 MG/3ML) 0.083% INHALATION NEBULIZATION SOLUTION (ALBUTEROL SULFATE) 1 vial q 4-6hrs prn wheezing/shortness of breath #1[Box] x 0 Route:INHALATION Entered and Authorized by: Kentrell OSUNA Method used: Electronically to [facility] (retail) [address] [place] [address] Note to Pharmacy: Route: INHALATION; Indications: COVID-19;DYSPNEA RxID: [id number] signed by Kentrell OSUNA on 12/24/2019 at 10:34 AM Name Value Range Interpretation Code Description Data Dee Dee rce(s) Supporting Document(s) ID Date Data Source [id number] 12/17/2019 03:06:21 PM EDT [facility] Name Value Range Interpretation Code Description Data Dee Dee rce(s) Supporting Document(s) APPEARANCE [facility]y [facility] BILIRUBIN UR negative [facility] BLOOD UR DIP 10 [facility] GLUCOSE, URN 60 [facility] KETONES URN 0.5 [facility] NITRITE URN negative [facility] PH URINE 6.5 [facility] PROTEIN, URN 0.15 [facility] SPEC GR URIN 1.020 [facility] UA COLOR yellow [facility] UROBILINOGEN 3.5 [facility] WBC DIPSTK U negative [facility] ID Date Data Source [id number] 12/17/2019 08:45:00 AM EDT [facility] Name Value Range Interpretation Code Description Data Dee Dee rce(s) Supporting Document(s) URINECULTRTN SPECIMEN APPEARS CONTAMINATED N [facility] ID Date Data Source [id number] 11/19/2019 08:43:28 AM EDT [facility] Measurements & CalculationsHeight: 67 inches (5 ft. 7 in.) 170.18 cm Weight: 354.0 pounds 160.91 kg Body Mass Index (BMI): 55.64BMI Interpretation: Morbidly ObeseBody Surface Area (BSA): 2.58Weight Management Education Done (Nutrition/Physical Activity)Vital SignsTemperature: 96.8F 36C tympanic Pulse Rate: 106 beats/minuteRespiratory Rate: 18 respirations/minuteBlood Pressure: 117/81 left arm sitting automaticO2 Saturation: 97% Vital Signs performed by: Vandana Murphy LPN, November 19, 2019 8:59 AMTuberculosis Screening - General Review TB Risk Assessment: Low RiskReview of Systems: Denies Cough for longer than 3 weeks, Coughing up blood or blood in sputum, Unexplained weight loss, Chronic fever, Night sweats for longer than 3 weeks. Tuberculosis Screening Performed By: Vandana Murphy LPN, November 19, 2019 9:42 AMTuberculosis Screening - International Patients QuestionsHave you had recent close contact with someone who has infectious tuberculosis? NoHave you ever lived with someone who has had a positive PPD test? NoHave you ever had an abnormal chest X-ray? NoHave you ever tested positive for HIV and/or AIDS? NoHave you ever had an organ and/or bone marrow transplant? NoHave you ever taken any immunosuppressant medications? NoHave you spent at least 30 consecutive days in a country other than the [place]? No Patient denies residence and/or work in the following settings: correctional facility, HIV/AIDS residence, homeless skilled nursing, laboratory, alf care facility, hospital, residential, and/or other healthcare facility.Tuberculosis Screening Performed By: Vandana Murphy LPN, November 19, 2019 9:42 AMPPD ReadingToday's PPD #1 Reading Date administered: No previous PPD in database. Date/Time Read: 11/21/2019 @ 9:47 AM Induration: 0mm Interpretation: negativeRead by: Kentrell OSUNA November 21, 2019 9:47 AMPPD Administrations/R eadings Added:PPD #1 0.1mL placed intradermal today by Vandana Murphy LPN at 9:20 AM in left forearm. Brand: Tubersol MFR: [employer] Lot #: [id number] EXP: 08/21/2021Initial Intake Information From: patientRoom #: 1Infectious Disease / Travel ScreeningRecent travel for you or any close contacts? NoHave you had any close contact with anyone diagnosed with or under investigation for COVID-19 (coronavirus)? NoFever? NoRespiratory symptoms: cough, cold, congestion, shortness of breath, difficulty breathing? NoLoss of smell? NoLoss of taste? NoSmoking, Tobacco, Vaping or Smoke Exposure StatusSmoke Status: never smokerTobacco Use: NoDo you vape? NoPassive Smoke Exposure: NoMenstrual HistoryLast Menstrual Period (LMP): 11/04/2019LMP History: ApproximateAny possibility of ? NoHealthcare HistorySince your last office visit...Have you been admitted to the hospital? NoHave you been to an emergency room (ER) or urgent care clinic? No - wellnow vaginitisEmergency room (ER) or urgent care date reported today: 07/15/2019Have you seen another healthcare provider? Yes - TLSHave you seen a dentist? No - in house refferalDental exam date reported today: >10yrsIntake performed by: Vandana Murphy LPN, November 19, 2019 8:53 AMRate Your HealthIn general, would you say your health is? FairPain AssessmentAre you currently having any pain which... You would like your provider to address? Yes Affects your activity level? YesDepression Screening - PHQ-2Over the last two weeks, have you... Had little interest or pleasure in doing things? Nearly every day Been feeling down, depressed, or hopeless? Nearly every day PHQ-2 Score: 6Anxiety Screening - SAUL-2Over the last two weeks, have you been... Feeling nervous, anxious, or on edge? Nearly every day Unable to stop or control worrying? Nearly every day SAUL-2 Score: 6Food InsecurityWithin the past year...Did you worry whether your food would run out before you got money to buy more? Never trueWas there a time when the food you bought didn't last and you didn't have money to get more? Never trueGeneralized Anxiety Disorder 7-Item Screening (SAUL-7)Answer Guide:0 = Not at all1 = Several days2 = Over half the days3 = Nearly every dayOver the last 2 weeks, how often have you been bothered by the following problems?Feeling nervous, anxious, or on edge: 3Not being able to stop or control worryinWorrying too much about different things: 3Trouble relaxinBeing so restless that it's hard to sit still: 3Becoming easily annoyed or irritable: 3Feeling afraid as if something awful might happen: 3Answer Guide:0 = Not difficult at all1 = Somewhat difficult2 = Very difficult3 = Extremely difficultHow difficult have these made it for you to do your work, take care of things at home, or get along with other people? 3GAD-7 Screening Results SAUL-2 Score: 6GAD-7 Score: 21Functional Impairment: Extremely difficultRecommendation: Severe anxietyPHQ-9 1. Over the last 2 weeks, patient reports the following frequency of symptoms: a. Little interest or pleasure in doing things -Nearly every day b. Feeling down, depressed, or hopeless -Nearly every day c. Trouble falling asleep, staying asleep, or sleeping too much -Nearly every day d. Feeling tired or having little energy -Nearly every day e. Poor appetite or overeating -Nearly every day f. Feeling bad about yourself, feeling that you are a failure, or feeling that you have let yourself or your family down -Nearly every day g. Trouble concentrating on things such as reading the newspaper or watching television -Nearly every day h. Moving or speaking so slowly that other people could have noticed. Or being so fidgety or restless that you have been moving around a lot more than usual -Nearly every day i. Thinking that you would be better off or that you want to hurt yourself in some way -Not at all2. If you checked off any problems, how difficult have these problems made it for you to do your work, take care of things at home, or get along with other people? - Extremely DifficultToday's PHQ-9 Results Score: 24 Severity: Severe Diagnosis Recommendation: Major Depression Functional Impairment: Extremely DifficultToday's Follow-Up Action Depression follow-up done. Follow-Up Action: Continue To Take Medications as PrescribedPain AssessmentLocation: left arm joint painDuration: chronicPRAPARE Sociodemographic Characteristics Race: White Ethnicity: Not or Preferred Language: EnglishFamily and Home Address: [address] [place] [address] What is your housing situation today? I have housing Are you worried about losing your housing? NoMoney and Resources What is the highest level of school that you have finished? none-8th grade Employed? 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 Denies Insecurity: food, utilities, clothing, early childhood aide classroom, phone, legal services, otherWithin the past year did you worry whether your food would run out before you got money to buy more? Never trueWithin the past year was there a time when the food you bought didn't last and you didn't have money to get more? Never trueIn the past year, have you had trouble affording costs associated with health insurance (such as deductibles, co-payments, etc.)? NoScreening, Brief Intervention, & Referral to Treatment (SBIRT)Pre-Screening Questions How many times have you have 4 or more drinks in a day? 0How many times have you used an illegal drug or used a prescription medication for a non- medical reason? 0Performed by: Vandana Murphy LPN, November 19, 2019 8:55 AMPatient History Medical History:Anxiety DisorderDepressionDiabetes, Type 2D E S ExposurePTSDOCDNeuropathySurgical History:D&CFamily History:FH DepressionFH DiabetesFH Heart DiseaseDiabetes (Father)Heart disease (Mother)Social/Personal History: Chief Complaintannual examHistory of Present Illness (HPI)44 y/o female presents for annual exam. Pt states she has been having joint pain in left shoulder/elbow (ache), also states that her fingers have been twitching as well. Also having a hard time walking due to pain mainly in left leg (hip) and b/l knees left more than right. Reports chronic joint pain intermittently, worse in the last year. Reports swelling and redness intermittently in the left leg joints. Upon standing she feels grinding/catching sensation in her hip, sometimes with walking will feel that sensation in the knee as well. Previously seen by [facility] 6-12 months ago and was told she had deteriorating hip on the left and slipped disk in lower spine. Reports daily heartburn. Has tried generic Prilosec OTC (unknown dose) with intermittent relief. Needs physical for [facility]. 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 No lifting or exertion necessary. Needs PPD and titers today. HPI performed by: Kentrell OSUNA, November 19, 2019 9:09 AMTransitions of Care InboundProblem ReviewProblem List was reviewed and/or updated during this visit.Medication Reconciliation & ReviewMedication List was reviewed and/or updated during this visit, including review of any [id number] medications, herbal therapies, and/or supplements.Allergy ReviewAllergy List was reviewed and/or updated during this visit.Adult Preventive CareLabs/Meds/Other Counseling-Nutrition and Physical Activity:BMI Interpretation: Morbidly Obese (11/19/2019) Counseling: Done (11/19/2019) Physical Activity: Done (11/19/2019)Review of Systems General : Denies loss of appetite, chills, dizziness, fatigue, fever, headache, feeling ill. Eyes: Denies blurring of vision, double vision. Ears/Nose/Throat: Denies earache, decreased hearing, nasal congestion, sore throat, swollen glands. Cardiovascular: Denies chest pain, palpitations, feeling faint. Respiratory: Denies cough, difficulty breathing, shortness of breath. Gastrointestinal: Complains of see HPI, heartburn. Denies nausea, vomiting, diarrhea, pain or discomfort, abdominal pain, blood in stool, black or tarry stools. Genitourinary: Denies pain with urination, burning with urination, blood in urine. Musculoskeletal: Complains of joint pain, joint swelling, stiffness. Denies recent injury. Skin: Denies rash, redness, suspicious lesions. Neurologic: Denies numbness/tingling, seizures, feeling faint. Physical ExamGeneral Appearance: well nourished, well hydrated, no acute distress, obese femaleEyes, External: conjunctivae and lids normal, EOMIExternal Ears: normal, no lesions or deformitiesHearing: grossly intactOtoscopy: canals clear, tympanic membranes intact, no fluid, light reflex intact bilaterallyExternal Nose: normal, no lesions or deformitiesNasal: mucosa, septum, and turbinates normal, nares patentLips/Teeth/Gums: no gingival inflammation, no labial lesionsPharynx: tongue normal, posterior pharynx without erythema or exudate, no thrush/aphthous ulcerNeck: supple, no masses, trachea midline, full range of motion of neckThyroid: no nodules, masses, tenderness, or enlargementRespiratory, Auscultation: clear to auscultation bilaterally; no rales, rhonchi, or wheezesRespiratory, Effort: no intercostal retractions or use of accessory musclesCardiovascular, Auscultation: S1, S2 audible; no murmur, rub, or gallop; RRRPeripheral Circulation: no clubbing, cyanosis, or varicosit ies, nonpitting edema, calves supple and nontenderAbdomen: soft, non-tender, no masses, bowel sounds normalGait & Station: somewhat slow favoring gaitSkin, Inspection: no rashes, lesions, or ulcerationsOrientation: oriented to time, place, and personMood & Affect: somewhat flat affect, speech clear, good eye contactJudgment & Insight: intactCare Management Plan Transitions of CareInboundRate Your HealthIn general, would you say your health is? FairAssessment & Plan Problems:Added: Encounter for general adult medical examination with abnormal findings (ICD-V70.0) (FXU06-Q30.01) Assessment: Instructions: Recommend annual medical appointments. Recommend routine dental and vision care. Recommend influenza vaccines annually and tetanus boosters every 10 years.Encounter for screening for respiratory tuberculosis (ICD-V74.1) (YHJ51-C75.1) Assessment: Instructions: PPD placed today. Return in 48-72 hrs for read.Immunization status unknown (HSZ11-Z02.89) Assessment: Ins tructions: Titers ordered, take this to [facility] for testing.History and physical examination, pre-employment (GCE44-D73.1) Assessment: Instructions: [facility] paperwork will be completed after PPD is read and blood work is resulted.Assessed:Dental caries (ICD-521.00) (GCB07-I71.9) Assessment: Instructions: Continue per dental, plan is for dental extractions.Iron deficiency anemia, unspecified (QHH92-Y59.9) Assessment: Instructions: Stable without anemia. Continue current iron supplement.GENERALIZED ANXIETY DISORDER (ICD-300.02) (XHV64-P42.1) Assessment: Instructions: Continue current Sertraline.DEPRESSION (ICD-311) (MUX49-H00.9) Assessment: Instructions: As above.Pain in left hip (ICD-719.45) (VFM81-E74.552) Assessment: Instructions: Call your orthopedist for re-evaluation. Switch from meloxicam to naproxen for better effect.Ankle edema (ICD-719.07) (ICD10- R60.0) Assessment: Instructions: Stable with hydrochlorothiazide.BMI 50.0- 59.9 (ICD-V85.43) (KMD93-V95.43) Assessment: Instructions: Recommend healthy lifestyle modification. Encourage portion control, healthy food choices, and increasing routine physical activity. Recommendation is for 150 minutes throughout the week of cardiovascular exercise.MORBID OBESITY (ICD- 278.01) (LVS91-M76.01) Assessment: Instructions: As above.Hyperglycemia due to type 2 diabetes mellitus (MSG60-C74.65) Assessment: Will update foot exam at next appt. Instructions: A1c 9.0, improving. Continue with diabetic diet, consistent meals, portion sizes (MyPlate), and exercise as able. Continue current medications.[facility] to reschedule your annual eye exam.Removed:Acute cystitis without hematuria (REQ59-Z48.00), Chest pain, unspecified (JNU83-H77.9), PHYSICAL EXAMINATION (ICD-V70.0) (PQJ09-L68.00), Anemia, unspecified (KKU61-S39.9)Assessment not Saved Hyperglycemia due to type 2 diabetes mellitus (MCG80-Y66.65): Patient Instructions/Care Plan: Encounter for general adult medical examination with abnormal findings: Recommend annual medical appointments. Recommend routine dental and vision care. Recommend influenza vaccines annually and tetanus boosters every 10 years.Encounter for screening for respiratory tuberculosis: PPD placed today. Return in 48-72 hrs for read.Immunization status unknown: Titers ordered, take this to [facility] for testing.History and physical examination- pre-employment: [facility] paperwork will be completed after PPD is read and blood work is resulted.Dental caries: Continue per dental, plan is for dental extractions.Iron deficiency anemia- unspecified: Stable without anemia. Continue current iron supplement.GENERALIZED ANXIETY DISORDER: Continue current Sertraline.DEPRESSION: As above.Pain in left hip: Call your orthopedist for re-evaluation. Switch from meloxicam to naproxen for better effect.Ankle edema: Stable with hydrochlorothiazide.BMI 50.0-59.9: Recommend healthy lifestyle modification. Encourage portion control, healthy food choices, and increasing routine physical activity. Recommendation is for 150 minutes throughout the week of cardiovascular exercise.MORBID OBESITY: As above.Hyperglycemia due to type 2 diabetes mellitus: A1c 9.0, improving. Continue with diabetic diet, consistent meals, portion sizes (MyPlate), and exercise as able. Continue current medications.Call [facility] to reschedule your annual eye exam. Plan developed in collaboration with patient and/or familyMedications:NAPROXEN 500 MG ORAL TABLETFERROUS SULFATE 325 (65 FE) MG ORAL TABLET DELAYED RELEASEVITAMIN D3 50 MCG (2000 UT) ORAL CAPSULEHYDROCHLOROTHIAZIDE 12.5 MG ORAL CAPSULETRULICITY 1.5 MG/0.5ML SUBCUTANEOUS SOLUTION PEN-INJECTORSERTRALINE HCL 100 MG ORAL TABLETJANUVIA 50 MG ORAL TABLETBLOOD GLUCOSE TEST IN VITRO STRIPLANCETSBLOOD GLUCOSE MONITOR SYSTEM W/DEVICE KITGLYBURIDE 5 MG ORAL TABLETLISINOPRIL 5 MG ORAL TABLETGABAPENTIN 800 MG ORAL TABLETMETFORMIN HCL 1000 MG ORAL TABLETMedication Changes:Refilled:FERROUS SULFATE 325 (65 FE) MG ORAL TABLET DELAYED RELEASE-Take 1 tablet po daily Qty: 90[Tablet] Refills: 3 Method: ElectronicHYDROCHLOROTHIAZIDE 12.5 MG ORAL CAPSULE-Take 1 tablet po daily prn for edema Qty: 90[Capsule] Refills: 3 Method: ElectronicTRULICITY 1.5 MG/0.5ML SUBCUTANEOUS SOLUTION [id number]-[id number]-[id number] 0.5mL weekly Qty: 12[Prefilled Pen Syrnge] Refills: 3 Method: ElectronicSERTRALINE HCL 100 MG ORAL TABLET-Take 1 tablet po daily Qty: 90[Tablet] Refills: 3 Method: ElectronicJANUVIA 50 MG ORAL TABLET-1 tab by mouth every day Qty: 90[Tablet] Refills: 3 Method: ElectronicBLOOD GLUCOSE TEST IN VITRO STRIP-Use to check blood sugar two times per day and as needed x 90 days Qty: 200[Strip] Refills: 3 Method: ElectronicLANCETS-Use to check blood sugar two times per day and as needed x 90 days Qty: 200[Unspecified] Refills: 3 Method: ElectronicGLYBURIDE 5 MG ORAL TABLET-Take 1 tab by mouth twice per day Qty: 180[Tablet] Refills: 3 Method: ElectronicLISINOPRIL 5 MG ORAL TABLET-Take 2 tablets po daily Qty: 180[Tablet] Refills: 3 Method: ElectronicGABAPENTIN 800 MG ORAL TABLET-Take 1 tablet po TID x 90 days Qty: 270[Tablet] Refills: 3 Method: ElectronicMETFORMIN HCL 1000 MG ORAL TABLET-take one tab po bid Qty: 180[Tablet] Refills: 3 Method: ElectronicNew Prescription:NAPROXEN 500 MG ORAL TABLET-Take 1 tablet po BID with food Qty: 180[Tablet] Refills: 1 Method: ElectronicRemoved:MELOXICAM 15 MG ORAL TABLET-Take 1 tablet po daily Qty: 30[Tablet] Refills: 2Changed:From: IN VITRO BLOOD GLUCOSE TEST IN VITRO STRIP Qty: [id number] Refills: 200[Strip] To: BLOOD GLUCOSE TEST IN VITRO STRIP-Use to check blood sugar two times per day and as needed x 90 days Qty: 200[Strip] Refills: 3 To: LANCETS-Use to check blood sugar two times per day and as needed x 90 days Qty: 200[Unspecified] Refills: 3From: ORAL GABAPENTIN 800 MG ORAL TABLET Qty: [id number] Refills: 270[Tablet] To: GABAPENTIN 800 MG ORAL TABLET-Take 1 tablet po TID x 90 days Qty: 270[Tablet] Refills: 3Allergies:PENICILLIN (Critical)Orders:PPD [CPT-13094] Antibody; rubella [CPT- 75106] Antibody; rubeola [CPT-43494] Preventive, Est, (40-64) [CPT-13297] Follow-Up Return to clinic: in 90 days for diabetesAdditional Follow-Up: after labsClinical Visit Summary Completed Name Value Range Interpretation Code Description Data Dee Dee rce(s) Supporting Document(s) ID Date Data Source [id number] 11/13/2019 11:07:50 AM EDT [facility] In-House Blood TestsDate/Time Colle cted: November 13, 2019 9:20 AMTest Result Reference Range Normal ValueComments: taken from right ac tolerated well.Daphnie Barajas, November 13, 2019 11:08 AMAssessment & Plan Orders:[id number]-Ind Vst-Est Level I [CPT-41323] 71738 - Venipuncture [CPT-56838] Name Value Range Interpretation Code Description Data Dee Dee rce(s) Supporting Document(s) ID Date Data Source [id number] 11/13/2019 09:25:00 AM EDT [facility] Name Value Range Interpretation Code Description Data Dee Dee rce(s) Supporting Document(s) HCT 42.4 % 36.0-47.0 N [facility] HGB 13.6 g/dL 12.0-15.5 N [facility] MCH 32.1 G/DL pg 32.0-36.5 N [facility] MCHC 28.3 PG % 27.0-33.0 N [facility] PLATELETS 263 10 10*3/mm3 150-450 N [facility] RBC 4.81 10 10*6/mm3 4.00-5.40 N [facility] RDW 16.3 % 11.5-14.5 H [facility] WBC TOTAL 5.8 4.0-10.0 N [facility] ID Date Data Source [id number] 11/13/2019 09:25:00 AM EDT [facility] Name Value Range Interpretation Code Description Data Dee Dee rce(s) Supporting Document(s) BG FASTING 271 mg/dL 70-100 H [facility] VIT D25 TOT 27.6 ng/mL 30.0-100.0 L [facility] ID Date Data Source [id number] 11/13/2019 09:25:00 AM EDT [facility] Name Value Range Interpretation Code Description Data Dee Dee rce(s) Supporting Document(s) HGBA1C 9.0 % N [facility] Procedure Social History Code Duration Value Status Description Data Source(s ) Alcohol intake 08/26/2020 12:00:00 AM EDT Ex-drinker (finding) comp leted Ex- drinker (finding) [facility] Tobacco use and exposure 08/26/2020 12:00:00 AM EDT Never used co mpleted Never used [facility] Smoking 08/26/2020 12:00:00 AM EDT Never smoker completed Never s [facility] Tobacco use and exposure 06/25/2020 12:00:00 AM EDT Never used co mpleted Never used [facility] Smoking 06/25/2020 12:00:00 AM EDT Never smoker completed Never s [facility] Vital Signs ID Date Data Source UNK Name Value Range Interpretation Code Description Data Source(s) Diastolic blood pressure 84 mm[Hg] 84 mm[Hg] PEPIN ([facility]) Body height 67 [in_i] 67 [in_i] ETHAN ([facility]) Body mass index (BMI) [Ratio] 52 kg/m2 52 kg/ m2 ETHAN ([facility]) Systolic blood pressure 129 mm[Hg] 129 mm[Hg] A [facility] ([facility]) Body weight 5312 [oz_av] 5312 [oz_av] ETHAN ([facility]) Diastolic blood pressure 84 mm[Hg] 84 mm[Hg] ETHAN ([facility]) Body height 67 [in_i] 67 [in_i] ETHAN ([facility]) Body mass index (BMI) [Ratio] 52.3 kg/m2 52.3 k g/m2 ETHAN ([facility]) Systolic blood pressure 121 mm[Hg] 121 mm[Hg] A [facility] ([facility]) Body weight 5344 [oz_av] 5344 [oz_av] ETHAN ([facility]) Diastolic blood pressure 84 mm[Hg] 84 mm[Hg] ETHAN ([facility]) Body height 67 [in_i] 67 [in_i] ETHAN ([facility]) Body mass index (BMI) [Ratio] 52.3 kg/m2 52.3 k g/m2 ETHAN ([facility]) Systolic blood pressure 121 mm[Hg] 121 mm[Hg] A [facility] ([facility]) Body weight 5344 [oz_av] 5344 [oz_av] ETHAN ([facility]) Body height 67 [in_i] 67 [in_i] ETHAN ([facility]) Body mass index (BMI) [Ratio] 52.3 kg/m2 52.3 k g/m2 ETHAN ([facility]) Diastolic blood pressure 84 mm[Hg] 84 mm[Hg] ETHAN ([facility]) Systolic blood pressure 121 mm[Hg] 121 mm[Hg] A [facility] ([facility]) Body weight 5344 [oz_av] 5344 [oz_av] ETHAN ([facility]) Body mass index (BMI) [Ratio] 50.63 kg/m2 50.63 kg/m2 [facility] Heart rate 104 /min 104 /min [facility] Body height 172.7 cm 172.7 cm [facility] Body weight 151.048 kg 151.048 kg [facility] Body height 67 [in_i] 67 [in_i] ETHAN ([facility]) Body mass index (BMI) [Ratio] 54.7 kg/m2 54.7 k g/m2 ETHAN ([facility]) Diastolic blood pressure 89 mm[Hg] 89 mm[Hg] ETHAN ([facility]) Diastolic blood pressure 91 mm[Hg] 91 mm[Hg] ETHAN ([facility]) Systolic blood pressure 140 mm[Hg] 140 mm[Hg] A [facility] ([facility]) Systolic blood pressure 133 mm[Hg] 133 mm[Hg] A [facility] ([facility]) Body weight 5587.2 [oz_av] 5587.2 [oz_av] ATHEN A ([facility]) Diastolic blood pressure 89 mm[Hg] 89 mm[Hg] ETHAN ([facility]) Body mass index (BMI) [Ratio] 54.7 kg/m2 54.7 k g/m2 ETHAN ([facility]) Systolic blood pressure 133 mm[Hg] 133 mm[Hg] A THENA ([facility]) Systolic blood pressure 140 mm[Hg] 140 mm[Hg] A THENA ([facility]) Body weight 5587.2 [oz_av] 5587.2 [oz_av] ATHEN A ([facility]) Diastolic blood pressure 91 mm[Hg] 91 mm[Hg] ETHAN ([facility]) Body height 67 [in_i] 67 [in_i] ETHAN ([facility]) Diastolic blood pressure 89 mm[Hg] 89 mm[Hg] ETHAN ([facility]) Diastolic blood pressure 91 mm[Hg] 91 mm[Hg] ETHAN ([facility]) Body height 67 [in_i] 67 [in_i] ETHAN ([facility]) Body mass index (BMI) [Ratio] 54.7 kg/m2 54.7 k g/m2 ETHAN ([facility]) Systolic blood pressure 133 mm[Hg] 133 mm[Hg] [facility] Systolic blood pressure 140 mm[Hg] 140 mm[Hg] A THENA ([facility]) Body weight 5587.2 [oz_av] 5587.2 [oz_av] ATHEN A ([facility]) Diastolic blood pressure 89 mm[Hg] 89 mm[Hg] ETHAN ([facility]) Diastolic blood pressure 91 mm[Hg] 91 mm[Hg] ETHAN ([facility]) Body height 67 [in_i] 67 [in_i] ETHAN ([facility]) Body mass index (BMI) [Ratio] 54.7 kg/m2 54.7 k g/m2 ETHAN ([facility]) Systolic blood pressure 133 mm[Hg] 133 mm[Hg] A THENA ([facility]) Systolic blood pressure 140 mm[Hg] 140 mm[Hg] A THENA ([facility]) Body weight 5587.2 [oz_av] 5587.2 [oz_av] ATHEN A ([facility]) Diastolic blood pressure 89 mm[Hg] 89 mm[Hg] ETHAN ([facility]) Diastolic blood pressure 91 mm[Hg] 91 mm[Hg] ETHAN ([facility]) Body height 67 [in_i] 67 [in_i] ETHAN ([facility]) Body mass index (BMI) [Ratio] 54.7 kg/m2 54.7 k g/m2 ETHAN ([facility]) Systolic blood pressure 133 mm[Hg] 133 mm[Hg] [facility] Systolic blood pressure 140 mm[Hg] 140 mm[Hg] [facility] Body weight 5587.2 [oz_av] 5587.2 [oz_av] ATHEN A ([facility]) Diastolic blood pressure 89 mm[Hg] 89 mm[Hg] ETHAN ([facility]) Diastolic blood pressure 91 mm[Hg] 91 mm[Hg] ETHAN ([facility]) Body height 67 [in_i] 67 [in_i] ETHAN ([facility]) Body mass index (BMI) [Ratio] 54.7 kg/m2 54.7 k g/m2 ETHAN ([facility]) Systolic blood pressure 133 mm[Hg] 133 mm[Hg] A THENA ([facility]) Systolic blood pressure 140 mm[Hg] 140 mm[Hg] A THENA ([facility]) Body weight 5587.2 [oz_av] 5587.2 [oz_av] ATHEN A ([facility]) Diastolic blood pressure 89 mm[Hg] 89 mm[Hg] ETHAN ([facility]) Diastolic blood pressure 91 mm[Hg] 91 mm[Hg] ETHAN ([facility]) Body height 67 [in_i] 67 [in_i] ETHAN ([facility]) Body mass index (BMI) [Ratio] 54.7 kg/m2 54.7 k g/m2 ETHAN ([facility]) Systolic blood pressure 133 mm[Hg] 133 mm[Hg] A THENA ([facility]) Systolic blood pressure 140 mm[Hg] 140 mm[Hg] A THENA ([facility]) Body weight 5587.2 [oz_av] 5587.2 [oz_av] ATHEN A ([facility]) Diastolic blood pressure 84 mm[Hg] 84 mm[Hg] ETHAN ([facility]) Body height 67 [in_i] 67 [in_i] ETHAN ([facility]) Body mass index (BMI) [Ratio] 55 kg/m2 55 kg/ m2 ETHAN ([facility]) Systolic blood pressure 119 mm[Hg] 119 mm[Hg] A THENA ([facility]) Body weight 5622.4 [oz_av] 5622.4 [oz_av] ATHEN A ([facility]) Diastolic blood pressure 84 mm[Hg] 84 mm[Hg] ETHAN ([facility]) Body height 67 [in_i] 67 [in_i] ETHAN ([facility]) Body mass index (BMI) [Ratio] 55 kg/m2 55 kg/ m2 ETHAN ([facility]) Systolic blood pressure 119 mm[Hg] 119 mm[Hg] A THENA ([facility]) Body weight 5622.4 [oz_av] 5622.4 [oz_av] ATHEN A ([facility]) Body weight 5622.4 [oz_av] 5622.4 [oz_av] ATHEN A ([facility]) Diastolic blood pressure 84 mm[Hg] 84 mm[Hg] ETHAN ([facility]) Body height 67 [in_i] 67 [in_i] ETHAN ([facility]) Body mass index (BMI) [Ratio] 55 kg/m2 55 kg/ m2 ETHAN ([facility]) Systolic blood pressure 119 mm[Hg] 119 mm[Hg] A THENA ([facility]) Body weight 5622.4 [oz_av] 5622.4 [oz_av] ATHEN A ([facility]) Diastolic blood pressure 84 mm[Hg] 84 mm[Hg] ETHAN ([facility]) Body height 67 [in_i] 67 [in_i] ETHAN ([facility]) Body mass index (BMI) [Ratio] 55 kg/m2 55 kg/ m2 ETHAN ([facility]) Systolic blood pressure 119 mm[Hg] 119 mm[Hg] [facility] Body height 67 [in_i] 67 [in_i] ETHAN ([facility]) Diastolic blood pressure 84 mm[Hg] 84 mm[Hg] ETHAN ([facility]) Body mass index (BMI) [Ratio] 55 kg/m2 55 kg/ m2 ETHAN ([facility]) Systolic blood pressure 119 mm[Hg] 119 mm[Hg] [facility] Body weight 5622.4 [oz_av] 5622.4 [oz_av] ATHEN A ([facility]) Diastolic blood pressure 84 mm[Hg] 84 mm[Hg] ETHAN ([facility]) Body height 67 [in_i] 67 [in_i] ETHAN ([facility]) Body mass index (BMI) [Ratio] 55 kg/m2 55 kg/ m2 ETHAN ([facility]) Systolic blood pressure 119 mm[Hg] 119 mm[Hg] [facility] Body weight 5622.4 [oz_av] 5622.4 [oz_av] ATHEN A ([facility]) Diastolic blood pressure 84 mm[Hg] 84 mm[Hg] ETHAN ([facility]) Body height 67 [in_i] 67 [in_i] ETHAN ([facility]) Body mass index (BMI) [Ratio] 55 kg/m2 55 kg/ m2 ETHAN ([facility]) Systolic blood pressure 119 mm[Hg] 119 mm[Hg] A THENA ([facility]) Body weight 5622.4 [oz_av] 5622.4 [oz_av] ATHEN A ([facility]) Diastolic blood pressure 84 mm[Hg] 84 mm[Hg] ETHAN ([facility]) Body height 67 [in_i] 67 [in_i] ETHAN ([facility]) Body mass index (BMI) [Ratio] 55 kg/m2 55 kg/ m2 ETHAN ([facility]) Systolic blood pressure 119 mm[Hg] 119 mm[Hg] A MAXINE ([facility]) Body weight 5622.4 [oz_av] 5622.4 [oz_av] ATHEN A ([facility]) Diastolic blood pressure 84 mm[Hg] 84 mm[Hg] ETHAN ([facility]) Body height 67 [in_i] 67 [in_i] ETHAN ([facility]) Body mass index (BMI) [Ratio] 55 kg/m2 55 kg/ m2 ETHAN ([facility]) Systolic blood pressure 119 mm[Hg] 119 mm[Hg] A MAXINE ([facility]) Body weight 5622.4 [oz_av] 5622.4 [oz_av] ATHEN A ([facility]) Diastolic blood pressure 84 mm[Hg] 84 mm[Hg] ETHAN ([facility]) Body height 67 [in_i] 67 [in_i] ETHAN ([facility]) Body mass index (BMI) [Ratio] 55 kg/m2 55 kg/ m2 ETHAN ([facility]) Systolic blood pressure 119 mm[Hg] 119 mm[Hg] A MAXINE ([facility]) Body weight 5622.4 [oz_av] 5622.4 [oz_av] ATHNANCIE A ([facility]) Body height 67 [in_i] 67 [in_i] ETHAN ([facility]) Body height 67 [in_i] 67 [in_i] ETHAN ([facility]) Body height 67 [in_i] 67 [in_i] ETHAN ([facility]) Body height 67 [in_i] 67 [in_i] ETHAN ([facility]) Body height 67 [in_i] 67 [in_i] ETHAN ([facility]) Body height 67 [in_i] 67 [in_i] [facility] [facility] Body height 67 [in_i] 67 [in_i] ETHAN ([facility]) Body height 67 [in_i] 67 [in_i] ETHAN ([facility]) Body height 67 [in_i] 67 [in_i] ETHAN ([facility]) Body height 67 [in_i] 67 [in_i] ETHAN ([facility]) Body height 67 [in_i] 67 [in_i] ETHAN ([facility]) Body height 67 [in_i] 67 [in_i] ETHAN ([facility]) Body temperature 97.1 [degF] 97.1 [degF] MEDENT ([facility]) Body height 68 [in_i] 68 [in_i] MEDENT ([facility]) 5'8" Body weight 358.00 [lb_av] 358.00 [lb_av] MEDEN T ([facility]) Body mass index (BMI) [Ratio] 54.4 kg/m2 54.4 k g/m2 MEDENT ([facility]) Body height 67 [in_i] 67 [in_i] ETHAN ([facility]) Body mass index (BMI) [Ratio] 56.1 kg/m2 56.1 k g/m2 ETHAN ([facility]) Systolic blood pressure 145 mm[Hg] 145 mm[Hg] A THENA ([facility]) Body weight 5728 [oz_av] 5728 [oz_av] ETHAN ([facility]) Diastolic blood pressure 92 mm[Hg] 92 mm[Hg] ETHAN ([facility]) Systolic blood pressure 145 mm[Hg] 145 mm[Hg] A THENA ([facility]) Body weight 5728 [oz_av] 5728 [oz_av] ETHAN ([facility]) Body mass index (BMI) [Ratio] 56.1 kg/m2 56.1 k g/m2 ETHAN ([facility]) Diastolic blood pressure 92 mm[Hg] 92 mm[Hg] ETHAN ([facility]) Body height 67 [in_i] 67 [in_i] ETHAN ([facility]) Body height 67 [in_i] 67 [in_i] ETHAN ([facility]) Diastolic blood pressure 92 mm[Hg] 92 mm[Hg] ETHAN ([facility]) Systolic blood pressure 145 mm[Hg] 145 mm[Hg] [facility] Body mass index (BMI) [Ratio] 56.1 kg/m2 56.1 k g/m2 ETHAN ([facility]) Body weight 5728 [oz_av] 5728 [oz_av] ETHAN ([facility]) Body height 67 [in_i] 67 [in_i] ETHAN ([facility]) Diastolic blood pressure 92 mm[Hg] 92 mm[Hg] ETHAN ([facility]) Body mass index (BMI) [Ratio] 56.1 kg/m2 56.1 k g/m2 ETHAN ([facility]) Systolic blood pressure 145 mm[Hg] 145 mm[Hg] [facility] Body weight 5728 [oz_av] 5728 [oz_av] ETHAN ([facility]) Body mass index (BMI) [Ratio] 56.1 kg/m2 56.1 k g/m2 ETHAN ([facility]) Systolic blood pressure 145 mm[Hg] 145 mm[Hg] A THENA ([facility]) Body weight 5728 [oz_av] 5728 [oz_av] ETHAN ([facility]) Diastolic blood pressure 92 mm[Hg] 92 mm[Hg] ETHAN ([facility]) Body height 67 [in_i] 67 [in_i] ETHAN ([facility]) Diastolic blood pressure 92 mm[Hg] 92 mm[Hg] ETHAN ([facility]) Body height 67 [in_i] 67 [in_i] ETHAN ([facility]) Body mass index (BMI) [Ratio] 56.1 kg/m2 56.1 k g/m2 ETHAN ([facility]) Body weight 5728 [oz_av] 5728 [oz_av] ETHAN ([facility]) Systolic blood pressure 145 mm[Hg] 145 mm[Hg] [facility] Diastolic blood pressure 92 mm[Hg] 92 mm[Hg] ETHAN ([facility]) Body height 67 [in_i] 67 [in_i] ETHAN ([facility]) Body mass index (BMI) [Ratio] 56.1 kg/m2 56.1 k g/m2 ETHAN ([facility]) Systolic blood pressure 145 mm[Hg] 145 mm[Hg] A THENA ([facility]) Body weight 5728 [oz_av] 5728 [oz_av] ETHAN ([facility]) Diastolic blood pressure 92 mm[Hg] 92 mm[Hg] ETHAN ([facility]) Body height 67 [in_i] 67 [in_i] ETHAN ([facility]) Body mass index (BMI) [Ratio] 56.1 kg/m2 56.1 k g/m2 ETHAN ([facility]) Systolic blood pressure 145 mm[Hg] 145 mm[Hg] [facility] Body weight 5728 [oz_av] 5728 [oz_av] ETHAN ([facility]) Diastolic blood pressure 92 mm[Hg] 92 mm[Hg] ETHAN ([facility]) Body height 67 [in_i] 67 [in_i] ETHAN ([facility]) Body mass index (BMI) [Ratio] 56.1 kg/m2 56.1 k g/m2 ETHAN ([facility]) Systolic blood pressure 145 mm[Hg] 145 mm[Hg] A THENA ([facility]) Body weight 5728 [oz_av] 5728 [oz_av] ETHAN ([facility]) Diastolic blood pressure 92 mm[Hg] 92 mm[Hg] ETHAN ([facility]) Body height 67 [in_i] 67 [in_i] ETHAN ([facility]) Body mass index (BMI) [Ratio] 56.1 kg/m2 56.1 k g/m2 ETHAN ([facility]) Systolic blood pressure 145 mm[Hg] 145 mm[Hg] A THENA ([facility]) Body weight 5728 [oz_av] 5728 [oz_av] ETHAN ([facility]) Body weight 5728 [oz_av] 5728 [oz_av] ETHAN ([facility]) Diastolic blood pressure 92 mm[Hg] 92 mm[Hg] ETHAN ([facility]) Body height 67 [in_i] 67 [in_i] ETHAN ([facility]) Body mass index (BMI) [Ratio] 56.1 kg/m2 56.1 k g/m2 ETHAN ([facility]) Systolic blood pressure 145 mm[Hg] 145 mm[Hg] [facility] Body height 67 [in_i] 67 [in_i] ETHAN ([facility]) Body mass index (BMI) [Ratio] 56.1 kg/m2 56.1 k g/m2 ETHAN ([facility]) Systolic blood pressure 145 mm[Hg] 145 mm[Hg] [facility] Body weight 5728 [oz_av] 5728 [oz_av] ETHAN ([facility]) Diastolic blood pressure 92 mm[Hg] 92 mm[Hg] ETHAN ([facility]) Diastolic blood pressure 92 mm[Hg] 92 mm[Hg] ETHAN ([facility]) Body height 67 [in_i] 67 [in_i] ETHAN ([facility]) Body mass index (BMI) [Ratio] 56.1 kg/m2 56.1 k g/m2 ETHAN ([facility]) Systolic blood pressure 145 mm[Hg] 145 mm[Hg] [facility] Body weight 5728 [oz_av] 5728 [oz_av] ETHAN ([facility]) Diastolic blood pressure 92 mm[Hg] 92 mm[Hg] ETHAN ([facility]) Body height 67 [in_i] 67 [in_i] ETHAN ([facility]) Body mass index (BMI) [Ratio] 56.1 kg/m2 56.1 k g/m2 ETHAN ([facility]) Systolic blood pressure 145 mm[Hg] 145 mm[Hg] A THENA ([facility]) Body weight 5728 [oz_av] 5728 [oz_av] ETHAN ([facility]) Body height 67 [in_i] 67 [in_i] ETHAN ([facility]) Body height 67 [in_i] 67 [in_i] ETHAN ([facility]) Body height 67 [in_i] 67 [in_i] ETHAN ([facility]) Body height 67 [in_i] 67 [in_i] ETHAN ([facility]) Body height 67 [in_i] 67 [in_i] ETHAN ([facility]) Body height 67 [in_i] 67 [in_i] ETHAN ([facility]) Body height 67 [in_i] 67 [in_i] ETHAN ([facility]) Body height 67 [in_i] 67 [in_i] ETHAN ([facility]) Body height 67 [in_i] 67 [in_i] ETHAN ([facility]) Body height 67 [in_i] 67 [in_i] ETHAN ([facility]) Body height 67 [in_i] 67 [in_i] ETHAN ([facility]) Body height 67 [in_i] 67 [in_i] ETHAN ([facility]) Body height 67 [in_i] 67 [in_i] ETHAN ([facility]) Body height 67 [in_i] 67 [in_i] ETHAN ([facility]) Body height 67 [in_i] 67 [in_i] ETHAN ([facility]) Diastolic blood pressure 86 mm[Hg] 86 mm[Hg] ETHAN ([facility]) Body mass index (BMI) [Ratio] 54.98 kg/m2 54.98 kg/m2 ETHAN ([facility]) Systolic blood pressure 133 mm[Hg] 133 mm[Hg] A THENA ([facility]) Body height 67 [in_i] 67 [in_i] ETHAN ([facility]) Body weight 5596.8 [oz_av] 5596.8 [oz_av] ATHEN A ([facility]) Body mass index (BMI) [Ratio] 54.98 kg/m2 54.98 kg/m2 ETHAN ([facility]) Diastolic blood pressure 86 mm[Hg] 86 mm[Hg] ETHAN ([facility]) Body height 67 [in_i] 67 [in_i] ETHAN ([facility]) Body weight 5596.8 [oz_av] 5596.8 [oz_av] ATHEN A ([facility]) Systolic blood pressure 133 mm[Hg] 133 mm[Hg] [facility] Diastolic blood pressure 86 mm[Hg] 86 mm[Hg] ETHAN ([facility]) Body height 67 [in_i] 67 [in_i] ETHAN ([facility]) Body mass index (BMI) [Ratio] 54.98 kg/m2 54.98 kg/m2 ETHAN ([facility]) Systolic blood pressure 133 mm[Hg] 133 mm[Hg] A THENA ([facility]) Body weight 5596.8 [oz_av] 5596.8 [oz_av] ATHEN A ([facility]) Systolic blood pressure 133 mm[Hg] 133 mm[Hg] A THENA ([facility]) Body weight 5596.8 [oz_av] 5596.8 [oz_av] ATHEN A ([facility]) Diastolic blood pressure 86 mm[Hg] 86 mm[Hg] ETHAN ([facility]) Body mass index (BMI) [Ratio] 54.98 kg/m2 54.98 kg/m2 ETHAN ([facility]) Body height 67 [in_i] 67 [in_i] ETHAN ([facility]) Diastolic blood pressure 86 mm[Hg] 86 mm[Hg] ETHAN ([facility]) Body height 67 [in_i] 67 [in_i] ETHAN ([facility]) Body mass index (BMI) [Ratio] 54.98 kg/m2 54.98 kg/m2 ETHAN ([facility]) Systolic blood pressure 133 mm[Hg] 133 mm[Hg] A THENA ([facility]) Body weight 5596.8 [oz_av] 5596.8 [oz_av] ATHEN A ([facility]) Diastolic blood pressure 86 mm[Hg] 86 mm[Hg] ETHAN ([facility]) Body height 67 [in_i] 67 [in_i] ETHAN ([facility]) Body mass index (BMI) [Ratio] 54.98 kg/m2 54.98 kg/m2 ETHAN ([facility]) Systolic blood pressure 133 mm[Hg] 133 mm[Hg] A THENA ([facility]) Body weight 5596.8 [oz_av] 5596.8 [oz_av] ATHEN A ([facility]) Diastolic blood pressure 86 mm[Hg] 86 mm[Hg] ETHAN ([facility]) Body height 67 [in_i] 67 [in_i] ETHAN ([facility]) Body mass index (BMI) [Ratio] 54.98 kg/m2 54.98 kg/m2 ETHAN ([facility]) Systolic blood pressure 133 mm[Hg] 133 mm[Hg] A [facility] ([facility]) Body weight 5596.8 [oz_av] 5596.8 [oz_av] ATHEN A ([facility]) Diastolic blood pressure 86 mm[Hg] 86 mm[Hg] ETHAN ([facility]) Body height 67 [in_i] 67 [in_i] ETHAN ([facility]) Body mass index (BMI) [Ratio] 54.98 kg/m2 54.98 kg/m2 ETHAN ([facility]) Systolic blood pressure 133 mm[Hg] 133 mm[Hg] A [facility] ([facility]) Body weight 5596.8 [oz_av] 5596.8 [oz_av] ATHEN A ([facility]) Diastolic blood pressure 86 mm[Hg] 86 mm[Hg] ETHAN ([facility]) Body height 67 [in_i] 67 [in_i] ETHAN ([facility]) Body mass index (BMI) [Ratio] 54.98 kg/m2 54.98 kg/m2 ETHAN ([facility]) Systolic blood pressure 133 mm[Hg] 133 mm[Hg] A THENA ([facility]) Body weight 5596.8 [oz_av] 5596.8 [oz_av] ATHEN A ([facility]) Diastolic blood pressure 86 mm[Hg] 86 mm[Hg] ETHAN ([facility]) Body height 67 [in_i] 67 [in_i] ETHAN ([facility]) Body mass index (BMI) [Ratio] 54.98 kg/m2 54.98 kg/m2 ETHAN ([facility]) Systolic blood pressure 133 mm[Hg] 133 mm[Hg] [facility] Body weight 5596.8 [oz_av] 5596.8 [oz_av] ATHEN A ([facility]) Diastolic blood pressure 86 mm[Hg] 86 mm[Hg] ETHAN ([facility]) Body height 67 [in_i] 67 [in_i] ETHAN ([facility]) Body mass index (BMI) [Ratio] 54.98 kg/m2 54.98 kg/m2 ETHAN ([facility]) Systolic blood pressure 133 mm[Hg] 133 mm[Hg] A [facility] ([facility]) Body weight 5596.8 [oz_av] 5596.8 [oz_av] ATHEN A ([facility]) Diastolic blood pressure 86 mm[Hg] 86 mm[Hg] ETHAN ([facility]) Body height 67 [in_i] 67 [in_i] ETHAN ([facility]) Body mass index (BMI) [Ratio] 54.98 kg/m2 54.98 kg/m2 ETHAN ([facility]) Systolic blood pressure 133 mm[Hg] 133 mm[Hg] [facility] Body weight 5596.8 [oz_av] 5596.8 [oz_av] ATHEN A ([facility]) Diastolic blood pressure 92 mm[Hg] 92 mm[Hg] ETHAN ([facility]) Body height 67 [in_i] 67 [in_i] ETHAN ([facility]) Systolic blood pressure 144 mm[Hg] 144 mm[Hg] A [facility] ([facility]) Body weight 5881.6 [oz_av] 5881.6 [oz_av] ATHEN A ([facility]) Body mass index (BMI) [Ratio] 57.78 kg/m2 57.78 kg/m2 ETHAN ([facility]) Body mass index (BMI) [Ratio] 57.78 kg/m2 57.78 kg/m2 ETHAN ([facility]) Diastolic blood pressure 92 mm[Hg] 92 mm[Hg] ETHAN ([facility]) Body height 67 [in_i] 67 [in_i] ETHAN ([facility]) Systolic blood pressure 144 mm[Hg] 144 mm[Hg] A [facility] ([facility]) Body weight 5881.6 [oz_av] 5881.6 [oz_av] ATHEN A ([facility]) Body height 67 [in_i] 67 [in_i] ETHAN ([facility]) Body mass index (BMI) [Ratio] 57.78 kg/m2 57.78 kg/m2 ETHAN ([facility]) Systolic blood pressure 144 mm[Hg] 144 mm[Hg] [facility] Body weight 5881.6 [oz_av] 5881.6 [oz_av] ATHEN A ([facility]) Diastolic blood pressure 92 mm[Hg] 92 mm[Hg] ETHAN ([facility]) Diastolic blood pressure 92 mm[Hg] 92 mm[Hg] ETHAN ([facility]) Body height 67 [in_i] 67 [in_i] ETHAN ([facility]) Body mass index (BMI) [Ratio] 57.78 kg/m2 57.78 kg/m2 ETHAN ([facility]) Body weight 5881.6 [oz_av] 5881.6 [oz_av] ATHEN A ([facility]) Systolic blood pressure 144 mm[Hg] 144 mm[Hg] A [facility] ([facility]) Body mass index (BMI) [Ratio] 57.78 kg/m2 57.78 kg/m2 ETHAN ([facility]) Systolic blood pressure 144 mm[Hg] 144 mm[Hg] [facility] Body weight 5881.6 [oz_av] 5881.6 [oz_av] ATHEN A ([facility]) Diastolic blood pressure 92 mm[Hg] 92 mm[Hg] ETHAN ([facility]) Body height 67 [in_i] 67 [in_i] ETHAN ([facility]) Body weight 5881.6 [oz_av] 5881.6 [oz_av] ATHEN A ([facility]) Diastolic blood pressure 92 mm[Hg] 92 mm[Hg] ETHAN ([facility]) Body height 67 [in_i] 67 [in_i] ETHAN ([facility]) Body mass index (BMI) [Ratio] 57.78 kg/m2 57.78 kg/m2 ETHAN ([facility]) Systolic blood pressure 144 mm[Hg] 144 mm[Hg] A THENA ([facility]) Diastolic blood pressure 92 mm[Hg] 92 mm[Hg] ETHAN ([facility]) Body height 67 [in_i] 67 [in_i] ETHAN ([facility]) Body mass index (BMI) [Ratio] 57.78 kg/m2 57.78 kg/m2 ETHAN ([facility]) Systolic blood pressure 144 mm[Hg] 144 mm[Hg] [facility] Body weight 5881.6 [oz_av] 5881.6 [oz_av] ATHEN A ([facility]) Diastolic blood pressure 92 mm[Hg] 92 mm[Hg] ETHAN ([facility]) Body height 67 [in_i] 67 [in_i] ETHAN ([facility]) Body mass index (BMI) [Ratio] 57.78 kg/m2 57.78 kg/m2 ETHAN ([facility]) Systolic blood pressure 144 mm[Hg] 144 mm[Hg] A THENA ([facility]) Body weight 5881.6 [oz_av] 5881.6 [oz_av] ATHEN A ([facility]) Diastolic blood pressure 92 mm[Hg] 92 mm[Hg] ETHAN ([facility]) Body height 67 [in_i] 67 [in_i] ETHAN ([facility]) Body mass index (BMI) [Ratio] 57.78 kg/m2 57.78 kg/m2 ETHAN ([facility]) Systolic blood pressure 144 mm[Hg] 144 mm[Hg] A THENA ([facility]) Body weight 5881.6 [oz_av] 5881.6 [oz_av] ATHEN A ([facility]) Body height 67 [in_i] 67 [in_i] ETHAN ([facility]) Diastolic blood pressure 92 mm[Hg] 92 mm[Hg] ETHAN ([facility]) Body mass index (BMI) [Ratio] 57.78 kg/m2 57.78 kg/m2 ETHAN ([facility]) Systolic blood pressure 144 mm[Hg] 144 mm[Hg] [facility] Body weight 5881.6 [oz_av] 5881.6 [oz_av] ATHEN A ([facility]) Diastolic blood pressure 92 mm[Hg] 92 mm[Hg] ETHAN ([facility]) Body height 67 [in_i] 67 [in_i] ETHAN ([facility]) Body mass index (BMI) [Ratio] 57.78 kg/m2 57.78 kg/m2 ETHAN ([facility]) Systolic blood pressure 144 mm[Hg] 144 mm[Hg] A [facility] ([facility]) Body weight 5881.6 [oz_av] 5881.6 [oz_av] ATHEN A ([facility]) Diastolic blood pressure 92 mm[Hg] 92 mm[Hg] ETHAN ([facility]) Body height 67 [in_i] 67 [in_i] ETHAN ([facility]) Body mass index (BMI) [Ratio] 57.78 kg/m2 57.78 kg/m2 ETHAN ([facility]) Systolic blood pressure 144 mm[Hg] 144 mm[Hg] A THENA ([facility]) Body weight 5881.6 [oz_av] 5881.6 [oz_av] ATHEN A ([facility]) Diastolic blood pressure 81 mm[Hg] 81 mm[Hg] ETHAN ([facility]) Body height 67 [in_i] 67 [in_i] ETHAN ([facility]) Body mass index (BMI) [Ratio] 55.64 kg/m2 55.64 kg/m2 EHTAN ([facility]) Systolic blood pressure 117 mm[Hg] 117 mm[Hg] A THENA ([facility]) Body weight 5664 [oz_av] 5664 [oz_av] ETHAN ([facility]) Diastolic blood pressure 81 mm[Hg] 81 mm[Hg] ETHAN ([facility]) Body height 67 [in_i] 67 [in_i] ETHAN ([facility]) Systolic blood pressure 117 mm[Hg] 117 mm[Hg] A [facility] ([facility]) Body mass index (BMI) [Ratio] 55.64 kg/m2 55.64 kg/m2 ETHAN ([facility]) Body weight 5664 [oz_av] 5664 [oz_av] ETHAN ([facility]) Diastolic blood pressure 81 mm[Hg] 81 mm[Hg] ETHAN ([facility]) Body height 67 [in_i] 67 [in_i] ETHAN ([facility]) Body mass index (BMI) [Ratio] 55.64 kg/m2 55.64 kg/m2 ETHAN ([facility]) Systolic blood pressure 117 mm[Hg] 117 mm[Hg] A [facility] ([facility]) Body weight 5664 [oz_av] 5664 [oz_av] ETHAN ([facility]) Diastolic blood pressure 81 mm[Hg] 81 mm[Hg] ETHAN ([facility]) Body weight 5664 [oz_av] 5664 [oz_av] ETHAN ([facility]) Body height 67 [in_i] 67 [in_i] ETHAN ([facility]) Systolic blood pressure 117 mm[Hg] 117 mm[Hg] [facility] Body mass index (BMI) [Ratio] 55.64 kg/m2 55.64 kg/m2 ETHAN ([facility]) Diastolic blood pressure 81 mm[Hg] 81 mm[Hg] ETHAN ([facility]) Body height 67 [in_i] 67 [in_i] ETHAN ([facility]) Body mass index (BMI) [Ratio] 55.64 kg/m2 55.64 kg/m2 ETHAN ([facility]) Systolic blood pressure 117 mm[Hg] 117 mm[Hg] A [facility] ([facility]) Body weight 5664 [oz_av] 5664 [oz_av] ETHAN ([facility]) Diastolic blood pressure 81 mm[Hg] 81 mm[Hg] ETHAN ([facility]) Body height 67 [in_i] 67 [in_i] ETHAN ([facility]) Body mass index (BMI) [Ratio] 55.64 kg/m2 55.64 kg/m2 ETHAN ([facility]) Systolic blood pressure 117 mm[Hg] 117 mm[Hg] A THENA ([facility]) Body weight 5664 [oz_av] 5664 [oz_av] ETHAN ([facility]) Diastolic blood pressure 81 mm[Hg] 81 mm[Hg] ETHAN ([facility]) Body height 67 [in_i] 67 [in_i] ETHAN ([facility]) Body mass index (BMI) [Ratio] 55.64 kg/m2 55.64 kg/m2 ETHAN ([facility]) Systolic blood pressure 117 mm[Hg] 117 mm[Hg] [facility] Body weight 5664 [oz_av] 5664 [oz_av] ETHAN ([facility]) Diastolic blood pressure 81 mm[Hg] 81 mm[Hg] ETHAN ([facility]) Body height 67 [in_i] 67 [in_i] ETHAN ([facility]) Body mass index (BMI) [Ratio] 55.64 kg/m2 55.64 kg/m2 ETHAN ([facility]) Systolic blood pressure 117 mm[Hg] 117 mm[Hg] A THENA ([facility]) Body weight 5664 [oz_av] 5664 [oz_av] ETHAN ([facility]) Diastolic blood pressure 81 mm[Hg] 81 mm[Hg] ETHAN ([facility]) Body height 67 [in_i] 67 [in_i] ETHAN ([facility]) Body mass index (BMI) [Ratio] 55.64 kg/m2 55.64 kg/m2 ETHAN ([facility]) Systolic blood pressure 117 mm[Hg] 117 mm[Hg] [facility] Body weight 5664 [oz_av] 5664 [oz_av] ETHAN ([facility]) Diastolic blood pressure 81 mm[Hg] 81 mm[Hg] ETHAN ([facility]) Body height 67 [in_i] 67 [in_i] ETHAN ([facility]) Body mass index (BMI) [Ratio] 55.64 kg/m2 55.64 kg/m2 ETHAN ([facility]) Systolic blood pressure 117 mm[Hg] 117 mm[Hg] A [facility] ([facility]) Body weight 5664 [oz_av] 5664 [oz_av] ETHAN ([facility]) Diastolic blood pressure 81 mm[Hg] 81 mm[Hg] ETHAN ([facility]) Body height 67 [in_i] 67 [in_i] ETHAN ([facility]) Body mass index (BMI) [Ratio] 55.64 kg/m2 55.64 kg/m2 ETHAN ([facility]) Systolic blood pressure 117 mm[Hg] 117 mm[Hg] A [facility] ([facility]) Body weight 5664 [oz_av] 5664 [oz_av] ETHAN ([facility]) Diastolic blood pressure 81 mm[Hg] 81 mm[Hg] ETHAN ([facility]) Body height 67 [in_i] 67 [in_i] ETHAN ([facility]) Body mass index (BMI) [Ratio] 55.64 kg/m2 55.64 kg/m2 ETHAN ([facility]) Systolic blood pressure 117 mm[Hg] 117 mm[Hg] A [facility] ([facility]) Body weight 5664 [oz_av] 5664 [oz_av] ETHAN ([facility]) ID Date Data Source [id number] 06/26/2020 06:11:32 PM EDT [facility] Name Value Range Interpretation Code Description Data Source(s) WEIGHT RECORDED 345.9 lb 345.9 lb [facility] Body height Measured 67.32 in 67.32 in [facility] Patient Treatment Plan of Care Planned Activity Planned Date Details Description Data Source (s) canagliflozin 100 MG Oral Tablet [Invokana] 07/12/2020 12:00:00 AM EDT [facility] sitagliptin 100 MG Oral Tablet 07/09/2020 12:00:00 AM EDT [facility] Metformin hydrochloride 1000 MG Oral Tablet 07/09/2020 12:00:00 AM [facility] Insulin Glargine (Basaglar KwikPen) 100 UNIT/ML SOPN 021 12:00:00 AM [facility] BD Pen Needle Mini U/F 31G X 5 MM (Insulin Pen Needle) 06/25/2020 12:00:00 AM [facility] ospital Basaglar KwikPen 100 UNIT/ML Subcutaneou s Solution Pen-injector (insulin glargine) 06/25/2020 12:00:00 AM [facility] Lisinopril 10 MG Oral Tablet 06/22/2020 12:00:00 AM [facility] ferrous sulfate 325 MG Oral Tablet 06/22/2020 12:00:00 AM [facility] sitagliptin 50 MG Oral Tablet [Januvia] 06/22/2020 12:00:00 AM [facility] ferrous sulfate 325 MG Oral Tablet 06/22/2020 12:00:00 AM [facility] Lisinopril 10 MG Oral Tablet 06/22/2020 12:00:00 AM [facility] Hydrochlorothiazide 12.5 MG Oral Capsule 06/20/2020 12:00:00 AM [facility] Metformin hydrochloride 1000 MG Oral Tablet 06/20/2020 12:00:00 AM [facility] Hydrochlorothiazide 12.5 MG Oral Capsule 06/20/2020 12:00:00 AM [facility] pregabalin 100 MG Oral Capsule 06/09/2020 12:00:00 AM [facility] pregabalin 100 MG Oral Capsule 06/09/2020 12:00:00 AM [facility] Omeprazole 20 MG Delayed Release Oral Capsule 05/25/2020 12:00:00 A M [facility] Omeprazole 20 MG Delayed Release Oral Capsule 05/25/2020 12:00:00 A M [facility] Glyburide 5 MG Oral Tablet 05/25/2020 12:00:00 AM [facility] Naproxen 500 MG Oral Tablet 05/23/2020 12:00:[address] [facility] [place] 0.5 ML dulaglutide 3 MG/ML Auto-Injector [Trulicity] ETHAN ([facility]) 0.5 ML dulaglutide 1.5 MG/ML Auto-Injector [Trulicity] ETHAN ([facility]) Sulfamethoxazole 800 MG / Trimethoprim 160 MG Oral Tablet ETHAN ([facility]) silver sulfadiazine 10 MG/ML [facility]] [facility] Sertraline 50 MG Oral Tablet ETHAN ([facility]) Sertraline 25 MG Oral Tablet ETHAN ([facility]) Sertraline 100 MG Oral Tablet ETHAN ([facility]) pregabalin 50 MG Oral Capsule ETHAN ([facility]) Phenazopyridine hydrochloride 100 MG Oral Tablet ETHAN ([facility]) Omeprazole 40 MG Delayed Release Oral Capsule PEPIN ([facility]) NITROFURANTOIN, MACROCRYSTALS 25 MG / Ni trofurantoin, Monohydrate 75 MG Oral Capsule ETHAN ([facility]) Naproxen 500 MG Oral Tablet ETHAN ([facility]) Metronidazole 500 [facility] Metronidazole 0.0075 MG/MG Vaginal Gel ETHAN ([facility]) Metoclopramide 10 MG Oral Tablet ETHAN ([facility]) meloxicam 15 MG Oral Tablet ETHAN ([facility]) Lisinopril 5 MG Oral Tablet ETHAN ([facility]) Lisinopril 10 MG Oral Tablet ETHAN ([facility]) Levofloxacin 500 MG Oral Tablet ETHAN ([facility]) Levofloxacin 250 MG Oral Tablet ETHAN ([facility]) sitagliptin 50 MG Oral Tablet [facility] canagliflozin 100 MG Oral Tablet [Invokana] [facility] Glyburide 5 MG Oral Tablet A THENA ([facility]) Simethicone 180 MG Oral Capsule ETHAN ([facility]) gabapentin 800 MG Oral Tablet ETHAN ([facility]) gabapentin 600 MG Oral Tablet ETHAN ([facility]) Fluoxetine 10 MG Oral Capsule ETHAN ([facility]) Fluconazole 150 MG Oral Tablet ETHAN ([facility]) ferrous sulfate 325 MG Oral Tablet ETHAN ([facility]) Lactulose 667 MG/ML Oral Solution [Enulose] ETHAN ([facility]) Dicyclomine Hydrochloride 10 MG Oral Capsule ETHAN ([facility]) Dexamethasone 1 MG Oral Tablet ETHAN ([facility]) Clindamycin 300 MG Oral Capsule ETHAN ([facility]) Ciprofloxacin 250 MG Oral Tablet ETHAN ([facility]) Ciprofloxacin 3 MG/ML Ophthalmic Solution ETHAN ([facility]) Cephalexin 500 MG Oral Capsule ETHAN ([facility]) cefdinir 300 MG Oral Capsule ETHAN ([facility]) albuterol sulfate HFA 90 mcg/actuation a erosol inhaler INHALE 2 PUFFS BY MOUTH EVERY 4 HOURS NEEDED FOR WHEEZING OR SHORTNESS OF BREATH ETHAN ([facility]) Albuterol 0.83 MG/ML Inhalant Solution ETHAN ([facility]) Acetaminophen 500 MG Oral Tablet ETHAN ([facility]) 0.5 ML dulaglutide 3 MG/ML Auto-Injector [Trulicity] ETHAN ([facility]) 0.5 ML dulaglutide 1.5 MG/ML Auto-Injector [Trulicity] ETHAN ([facility]) Sulfamethoxazole 800 MG / Trimethoprim 160 MG Oral Tablet ETHAN ([facility]) silver sulfadiazine 10 MG/ML Topical Cream [SSD] ETHAN ([facility]) Sertraline 50 MG Oral Tablet ETHAN ([facility]) Sertraline 25 MG Oral Tablet ETHAN ([facility]) Sertraline 100 MG Oral Tablet ETHAN ([facility]) pregabalin 50 MG Oral Capsule ETHAN ([facility]) Omeprazole 40 MG Delayed Release Oral Capsule ETHAN ([facility]) Naproxen 500 MG Oral Tablet ETHAN ([facility]) Metronidazole 500 MG Oral Tablet ETHAN ([facility]) Metronidazole 0.0075 MG/MG Vaginal Gel ETHAN ([facility]) Metoclopramide 10 MG Oral Tablet ETHAN ([facility]) meloxicam 15 MG Oral Tablet ETHAN ([facility]) Lisinopril 5 MG Oral Tablet ETHAN ([facility]) Levofloxacin 250 MG Oral Tablet ETHAN ([facility]) sitagliptin 50 MG Oral Tablet [Januvia] ETHAN ([facility]) Glyburide 5 MG Oral Tablet A THENA ([facility]) Simethicone 180 MG Oral Capsule ETHAN ([facility]) gabapentin 800 MG Oral Tablet ETHAN ([facility]) gabapentin 600 MG Oral Tablet ETHAN ([facility]) Fluoxetine 10 MG Oral Capsule ETHAN ([facility]) Lactulose 667 MG/ML Oral Solution [Enulose] [facility]) Dicyclomine Hydrochloride 10 MG Oral Capsule ETHAN ([facility]) Dexamethasone 1 MG Oral Tablet ETHAN ([facility]) Clindamycin 300 MG Oral Capsule ETHAN ([facility]) Ciprofloxacin 250 MG Oral Tablet ETHAN ([facility]) Ciprofloxacin 3 MG/ML Ophthalmic Solution ETHAN ([facility]) Cephalexin 500 MG Oral Capsule ETHAN ([facility]) cefdinir 300 MG Oral Capsule ETHAN ([facility]) albuterol sulfate HFA 90 mcg/actuation a erosol inhaler INHALE 2 PUFFS BY MOUTH EVERY 4 HOURS NEEDED FOR WHEEZING OR SHORTNESS OF BREATH ETHAN ([facility]) Albuterol 0.83 MG/ML Inhalant Solution ETHAN ([facility]) Acetaminophen 500 MG Oral Tablet ETHAN ([facility]) 0.5 ML dulaglutide 3 MG/ML Auto-Injector [Trulicity] ETHAN ([facility]) 0.5 ML dulaglutide 1.5 MG/ML Auto-Injector [Trulicity] ETHAN ([facility]) Sulfamethoxazole 800 MG / Trimethoprim 160 MG Oral Tablet ETHAN ([facility]) silver sulfadiazine 10 MG/ML Topical Cream [facility]D] [facility] Sertraline 50 MG Oral Tablet ETHAN ([facility]) Sertraline 25 MG Oral Tablet ETHAN ([facility]) Sertraline 100 MG Oral Tablet ETHAN ([facility]) pregabalin 50 MG Oral Capsule ETHAN ([facility]) sitagliptin 50 MG Oral Tablet [Januvia] [facility] Glyburide 5 MG Oral Tablet A THENA ([facility]) Simethicone 180 MG Oral Capsule ETHAN ([facility]) gabapentin 800 MG Oral Tablet ETHAN ([facility]) gabapentin 600 MG Oral Tablet ETHAN ([facility]) Fluoxetine 10 MG Oral Capsule ETHAN ([facility]) Lactulose 667 MG/ML Oral Solution [Enulose] [facility] Dicyclomine Hydrochloride 10 MG Oral Capsule ETHAN ([facility]) Dexamethasone 1 MG Oral Tablet ETHAN ([facility]) Clindamycin 300 MG Oral Capsule ETHAN ([facility]) Ciprofloxacin 250 MG Oral Tablet ETHAN ([facility]) Ciprofloxacin 3 MG/ML Ophthalmic Solution ETHAN ([facility]) cefdinir 300 MG Oral Capsule ETHAN ([facility]) albuterol sulfate HFA 90 mcg/actuation a erosol inhaler INHALE 2 PUFFS BY MOUTH EVERY 4 HOURS NEEDED FOR WHEEZING OR SHORTNESS OF BREATH ETHAN ([facility]) Albuterol 0.83 MG/ML [facility] Acetaminophen 500 MG Oral Tablet [facility] 0.5 ML dulaglutide 1.5 MG/ML Auto-Injector [Trulicity] [facility] Sulfamethoxazole 800 MG / Trimethoprim 160 MG Oral Tablet ETHAN ([facility]) silver sulfadiazine 10 MG/ML Topical Cream [SSD] [facility] Sertraline 50 MG Oral Tablet ETHAN ([facility]) Sertraline 25 MG Oral Tablet ETHAN ([facility]) Sertraline 100 MG Oral Tablet ETHAN ([facility]) Omeprazole 40 MG Delayed Release Oral Capsule ETHAN ([facility]) NITROFURANTOIN, MACROCRYSTALS 25 MG / Ni trofurantoin, Monohydrate 75 MG Oral Capsule ETHAN ([facility]) Metronidazole 500 MG Oral Tablet ETHAN ([facility]) Metronidazole 0.0075 MG/MG Vaginal Gel ETHAN ([facility]) Metoclopramide 10 MG Oral Tablet ETHAN ([facility]) meloxicam 15 MG Oral Tablet ETHAN ([facility]) Lisinopril 5 MG Oral Tablet ETHAN ([facility]) Levofloxacin 250 MG Oral Tablet ETHAN ([facility]) Simethicone 180 MG Oral Capsule ETHAN ([facility]) gabapentin 800 MG Oral Tablet ETHAN ([facility]) gabapentin 600 MG Oral Tablet ETHAN ([facility]) Fluoxetine 10 MG Oral Capsule ETHAN ([facility]) Lactulose 667 MG/ML Oral Solution [Enulose] [facility]) Dicyclomine Hydrochloride 10 MG Oral Capsule ETHAN ([facility]) Ciprofloxacin 250 MG Oral Tablet ETHAN ([facility]) Ciprofloxacin 3 MG/ML Ophthalmic Solution PEPIN ([facility]) cefdinir 300 MG Oral Capsule ETHAN ([facility]) albuterol sulfate HFA 90 mcg/actuation a erosol inhaler INHALE 2 PUFFS BY MOUTH EVERY 4 HOURS NEEDED FOR WHEEZING OR SHORTNESS OF BREATH ETHAN ([facility]) Albuterol 0.83 MG/ML Inhalant Solution ETHAN ([facility]) Acetaminophen 500 MG Oral Tablet ETHAN ([facility]) 0.5 ML dulaglutide 1.5 MG/ML Auto-Injector [Trulicity] ETHAN ([facility]) Sulfamethoxazole 800 MG / Trimethoprim 160 MG Oral Tablet ETHAN ([facility]) silver sulfadiazine 10 MG/ML Topical Cream [SSD] ETHAN ([facility]) Sertraline 50 MG Oral Tablet ETHAN ([facility]) Sertraline 25 MG Oral Tablet ETHAN ([facility]) Sertraline 100 MG Oral Tablet ETHAN ([facility]) Omeprazole 40 MG Delayed Release Oral Capsule ETHAN ([facility]) NITROFURANTOIN, MACROCRYSTALS 25 MG / Ni trofurantoin, Monohydrate 75 MG Oral Capsule ETHAN ([facility]) Metronidazole 500 MG Oral Tablet ETHAN ([facility]) Metronidazole 0.0075 MG/MG Vaginal Gel ETHAN ([facility]) Metoclopramide 10 MG Oral Tablet ETHAN ([facility]) meloxicam 15 MG Oral Tablet ETHAN ([facility]) Lisinopril 5 MG Oral Tablet ETHAN ([facility]) Levofloxacin 250 MG Oral Tablet ETHAN ([facility]) Simethicone 180 MG Oral Capsule ETHAN ([facility]) gabapentin 800 MG Oral Tablet ETHAN ([facility]) gabapentin 600 MG Oral Tablet ETHAN ([facility]) Fluoxetine 10 MG Oral Capsule ETHAN ([facility]) ferrous sulfate 325 MG Oral Tablet ETHAN ([facility]) Lactulose 667 MG/ML Oral Solution [Enulose] [facility]) Dicyclomine Hydrochloride 10 MG Oral Capsule ETHAN ([facility]) Ciprofloxacin 250 MG Oral Tablet PEPIN ([facility]) Ciprofloxacin 3 MG/ML Ophthalmic Solution PEPIN ([facility]) cefdinir 300 MG Oral Capsule ETHAN ([facility]) albuterol sulfate HFA 90 mcg/actuation a erosol inhaler INHALE 2 PUFFS BY MOUTH EVERY 4 HOURS NEEDED FOR WHEEZING OR SHORTNESS OF BREATH ETHAN ([facility]) Albuterol 0.83 MG/ML Inhalant Solution [facility]) Acetaminophen 500 MG Oral Tablet PEPIN ([facility]) 0.5 ML dulaglutide 1.5 MG/ML Auto-Injector [Trulicity] [facility] Sulfamethoxazole 800 MG / Trimethoprim 160 MG Oral Tablet ETHAN ([facility]) silver sulfadiazine 10 MG/ML Topical Cream [SSD] [facility] Sertraline 50 MG Oral Tablet ETHAN ([facility]) Sertraline 25 MG Oral [facility]t [facility] Sertraline 100 MG Oral [facility]t [facility] Omeprazole 40 MG Delayed Release Oral Capsule ETHAN ([facility]) NITROFURANTOIN, MACROCRYSTALS 25 MG / Ni trofurantoin, Monohydrate 75 MG Oral Capsule ETHAN ([facility]) Metronidazole 500 MG Oral Tablet ETHAN ([facility]) Metronidazole 0.0075 MG/MG Vaginal Gel ETHAN ([facility]) Metoclopramide 10 MG Oral Tablet ETHAN ([facility]) meloxicam 15 MG Oral Tablet ETHAN ([facility]) Lisinopril 5 MG Oral Tablet ETHAN ([facility]) Levofloxacin 250 MG Oral Tablet ETHAN ([facility]) Simethicone 180 MG Oral Capsule ETHAN ([facility]) gabapentin 800 MG Oral Tablet ETHAN ([facility]) gabapentin 600 MG [facility]t [facility] Fluoxetine 10 MG Oral [facility]apsule [facility] ferrous sulfate 325 MG Oral Tablet [facility]) Lactulose 667 MG/ML Oral Solution [Enulose] [facility]) Dicyclomine Hydrochloride 10 MG Oral Capsule [facility]) Ciprofloxacin 250 MG Oral Tablet [facility]) Ciprofloxacin 3 MG/ML Ophthalmic Solution [facility]) cefdinir 300 MG [facility]ule [facility] albuterol sulfate HFA 90 mcg/actuation a erosol inhaler INHALE 2 PUFFS BY MOUTH EVERY 4 HOURS NEEDED FOR WHEEZING OR SHORTNESS OF BREATH [facility] Albuterol 0.83 MG/ML Inhalant Solution [facility] Acetaminophen 500 MG Oral Tablet [facility]) 0.5 ML dulaglutide 1.5 MG/ML Auto-Injector [Trulicity] [facility] Sulfamethoxazole 800 MG / Trimethoprim 160 MG Oral Tablet [facility] silver sulfadiazine 10 MG/ML Topical Cream [SSD] [facility] Sertraline 50 MG Oral [facility]t [facility] Sertraline 25 MG Oral Tablet [facility] Sertraline 100 MG Oral Tablet [facility] Omeprazole 40 MG Delayed Release Oral Capsule [facility] NITROFURANTOIN, MACROCRYSTALS 25 MG / Ni trofurantoin, Monohydrate 75 MG Oral Capsule ETHAN ([facility]) Metronidazole 500 MG Oral Tablet ETHAN ([facility]) Metronidazole 0.0075 MG/MG Vaginal Gel ETHAN ([facility]) Metoclopramide 10 MG Oral Tablet ETHAN ([facility]) meloxicam 15 MG Oral Tablet ETHAN ([facility]) Lisinopril 5 MG Oral Tablet ETHAN ([facility]) Levofloxacin 250 MG Oral Tablet ETHAN ([facility]) Simethicone 180 MG Oral Capsule ETHAN ([facility]) gabapentin 800 MG Oral Tablet ETHAN ([facility]) gabapentin 600 MG Oral Tablet ETHAN ([facility]) Fluoxetine 10 MG Oral Capsule ETHAN ([facility]) ferrous sulfate 325 MG Oral Tablet ETHAN ([facility]) Lactulose 667 MG/ML Oral Solution [Enulose] ETHAN ([facility]) Dicyclomine Hydrochloride 10 MG Oral Capsule ETHAN ([facility]) Ciprofloxacin 250 MG Oral Tablet ETHAN ([facility]) Ciprofloxacin 3 MG/ML Ophthalmic Solution ETHAN ([facility]) cefdinir 300 MG Oral Capsule ETHAN ([facility]) albuterol sulfate HFA 90 mcg/actuation a erosol inhaler INHALE 2 PUFFS BY MOUTH EVERY 4 HOURS NEEDED FOR WHEEZING OR SHORTNESS OF BREATH ETHAN ([facility]) Albuterol 0.83 MG/ML Inhalant Solution ETHAN ([facility]) Acetaminophen 500 MG Oral Tablet ETHAN ([facility]) gabapentin 600 MG Oral Tablet ETHAN ([facility]) Fluoxetine 10 MG Oral Capsule ETHAN ([facility]) Omeprazole 40 MG Delayed Release Oral Capsule ETHAN ([facility]) NITROFURANTOIN, MACROCRYSTALS 25 MG / Ni trofurantoin, Monohydrate 75 MG Oral Capsule ETHAN ([facility]) Naproxen 500 MG Oral Tablet ETHAN ([facility]) Metronidazole 500 MG Oral Tablet ETHAN ([facility]) Metronidazole 0.0075 MG/MG Vaginal Gel ETHAN ([facility]) Metoclopramide 10 MG Oral Tablet ETHAN ([facility]) meloxicam 15 MG Oral Tablet ETHAN ([facility]) Lisinopril 5 MG Oral Tablet ETHAN ([facility]) Levofloxacin 250 MG Oral Tablet ETHAN ([facility]) Lactulose 667 MG/ML Oral Solution [Enulose] ETHAN ([facility]) Dicyclomine Hydrochloride 10 MG Oral Capsule ETHAN ([facility]) Ciprofloxacin 250 MG Oral Tablet ETHAN ([facility]) cefdinir 300 MG Oral Capsule ETHAN ([facility]) albuterol sulfate HFA 90 mcg/actuation a erosol inhaler INHALE 2 PUFFS BY MOUTH EVERY 4 HOURS NEEDED FOR WHEEZING OR SHORTNESS OF BREATH ETHAN ([facility]) Albuterol 0.83 MG/ML Inhalant Solution ETHAN ([facility]) 0.5 ML dulaglutide 1.5 MG/ML Auto-Injector [Trulicity] ETHAN ([facility]) Sertraline 50 MG Oral Tablet ETHAN ([facility]) Sertraline 25 MG Oral Tablet ETHAN ([facility]) Sertraline 100 MG Oral Tablet ETHAN ([facility]) Omeprazole 40 MG Delayed Release Oral Capsule ETHAN ([facility]) NITROFURANTOIN, MACROCRYSTALS 25 MG / Ni trofurantoin, Monohydrate 75 MG Oral Capsule ETHAN ([facility]) Metronidazole 500 MG Oral Tablet ETHAN ([facility]) Metronidazole 0.0075 MG/MG Vaginal Gel ETHAN ([facility]) Metoclopramide 10 MG Oral Tablet ETHAN ([facility]) meloxicam 15 MG Oral Tablet ETHAN ([facility]) Lisinopril 5 MG Oral Tablet ETHAN ([facility]) Levofloxacin 250 MG Oral Tablet ETHAN ([facility]) Simethicone 180 MG Oral Capsule ETHAN ([facility]) gabapentin 800 MG Oral Tablet ETHAN ([facility]) gabapentin 600 MG Oral Tablet ETHAN ([facility]) Fluoxetine 10 MG Oral Capsule ETHAN ([facility]) Lactulose 667 MG/ML Oral Solution [Enulose] ETHAN ([facility]) Dicyclomine Hydrochloride 10 MG Oral Capsule ETHAN ([facility]) Ciprofloxacin 250 MG Oral Tablet ETHAN ([facility]) cefdinir 300 MG Oral Capsule ETHAN ([facility]) albuterol sulfate HFA 90 mcg/actuation a erosol inhaler INHALE 2 PUFFS BY MOUTH EVERY 4 HOURS NEEDED FOR WHEEZING OR SHORTNESS OF BREATH ETHAN ([facility]) Albuterol 0.83 MG/ML Inhalant Solution ETHAN ([facility]) 0.5 ML dulaglutide 1.5 MG/ML Auto-Injector [Trulicity] ETHAN ([facility]) Sertraline 50 MG Oral Tablet ETHAN ([facility]) Sertraline 25 MG Oral Tablet ETHAN ([facility]) Sertraline 100 MG Oral Tablet ETHAN ([facility]) Omeprazole 40 MG Delayed Release Oral Capsule PEPIN ([facility]) NITROFURANTOIN, MACROCRYSTALS 25 MG / Ni trofurantoin, Monohydrate 75 MG Oral Capsule PEPIN ([facility]) Metronidazole 500 MG Oral Tablet ETHAN ([facility]) Metronidazole 0.0075 MG/MG Vaginal Gel ETHAN ([facility]) Metoclopramide 10 MG Oral Tablet PEPIN ([facility]) meloxicam 15 MG Oral Tablet PE[facility] ([facility]) Lisinopril 5 MG Oral Tablet [facility] ([facility]) Levofloxacin 250 MG Oral Tablet PE[facility] ([facility]) Simethicone 180 MG [facility] gabapentin 800 MG Oral Tablet ETHAN ([facility]) gabapentin 600 MG Oral Tablet ETHAN ([facility]) Fluoxetine 10 MG Oral Capsule ETHAN ([facility]) Lactulose 667 MG/ML Oral Solution [facility]] [facility] Dicyclomine Hydrochloride 10 MG [facility] Ciprofloxacin 250 MG [facility]t [facility] cefdinir 300 MG Oral Capsule ETHAN ([facility]) albuterol sulfate HFA 90 mcg/actuation a erosol inhaler INHALE 2 PUFFS BY MOUTH EVERY 4 HOURS NEEDED FOR WHEEZING OR SHORTNESS OF BREATH ETHAN ([facility]) Albuterol 0.83 MG/ML Inhalant Solution ETHAN ([facility]) 0.5 ML dulaglutide 1.5 MG/ML Auto-Injector [Trulicity] ETHAN ([facility]) Sertraline 50 MG Oral Tablet ETHAN ([facility]) Sertraline 25 MG Oral Tablet ETHAN ([facility]) Omeprazole 40 MG Delayed Release Oral Capsule ETHAN ([facility]) NITROFURANTOIN, MACROCRYSTALS 25 MG / Ni trofurantoin, Monohydrate 75 MG Oral Capsule ETHAN ([facility]) Metronidazole 500 MG Oral Tablet ETHAN ([facility]) Metronidazole 0.0075 MG/MG Vaginal Gel ETHAN ([facility]) meloxicam 15 MG Oral Tablet ETHAN ([facility]) Simethicone 180 MG Oral Capsule ETHAN ([facility]) gabapentin 600 MG Oral Tablet ETHAN ([facility]) Fluoxetine 10 MG Oral Capsule ETHAN ([facility]) Dicyclomine Hydrochloride 10 MG Oral Capsule ETHAN ([facility]) Ciprofloxacin 250 MG Oral Tablet ETHAN ([facility]) 0.5 ML dulaglutide 1.5 MG/ML Auto-Injector [Trulicity] ETHAN ([facility]) Sertraline 50 MG Oral Tablet ETHAN ([facility]) Sertraline 25 MG Oral Tablet ETHAN ([facility]) Sertraline 100 MG Oral Tablet ETHAN ([facility]) Omeprazole 40 MG Delayed Release Oral Capsule ETHAN ([facility]) NITROFURANTOIN, MACROCRYSTALS 25 MG / Ni trofurantoin, Monohydrate 75 MG Oral Capsule ETHAN ([facility]) Metronidazole 500 MG Oral Tablet ETHAN ([facility]) Metronidazole 0.0075 MG/MG Vaginal Gel ETHAN ([facility]) Metoclopramide 10 MG Oral Tablet ETHAN ([facility]) meloxicam 15 MG Oral Tablet ETHAN ([facility]) Lisinopril 5 MG Oral Tablet ETHAN ([facility]) Levofloxacin 250 MG Oral Tablet ETHAN ([facility]) Simethicone 180 MG Oral Capsule ETHAN ([facility]) gabapentin 800 MG Oral Tablet ETHAN ([facility]) 0.5 ML dulaglutide 1.5 MG/ML Auto-Injector [Trulicity] ETHAN ([facility]) Sertraline 50 MG Oral Tablet ETHAN ([facility]) Sertraline 25 MG Oral Tablet ETHAN ([facility]) Omeprazole 40 MG Delayed Release Oral Capsule ETHAN ([facility]) NITROFURANTOIN, MACROCRYSTALS 25 MG / Ni trofurantoin, Monohydrate 75 MG Oral Capsule ETHAN ([facility]) Metronidazole 500 MG Oral Tablet ETHAN ([facility]) Metronidazole 0.0075 MG/MG Vaginal Gel ETHAN ([facility]) meloxicam 15 MG Oral Tablet ETHAN ([facility]) Simethicone 180 MG Oral Capsule ETHAN ([facility]) gabapentin 600 MG Oral Tablet ETHAN ([facility]) Fluoxetine 10 MG Oral Capsule ETHAN ([facility]) Dicyclomine Hydrochloride 10 MG Oral Capsule ETHAN ([facility]) Ciprofloxacin 250 MG Oral Tablet ETHAN ([facility]) 0.5 ML dulaglutide 1.5 MG/ML Auto-Injector [Trulicity] ETHAN ([facility]) Sertraline 50 MG Oral Tablet ETHAN ([facility]) Sertraline 25 MG Oral Tablet ETHAN ([facility]) Omeprazole 40 MG Delayed Release Oral Capsule ETHAN ([facility]) NITROFURANTOIN, MACROCRYSTALS 25 MG / Ni trofurantoin, Monohydrate 75 MG Oral Capsule ETHAN ([facility]) Metronidazole 500 MG Oral Tablet ETHAN ([facility]) Metronidazole 0.0075 MG/MG Vaginal Gel ETHAN ([facility]) meloxicam 15 MG Oral Tablet ETHAN ([facility]) Lisinopril 5 MG Oral Tablet ETHAN ([facility]) Simethicone 180 MG Oral Capsule ETHAN ([facility]) gabapentin 600 MG Oral Tablet ETHAN ([facility]) Fluoxetine 10 MG Oral Capsule ETHAN ([facility]) Dicyclomine Hydrochloride 10 MG Oral Capsule ETHAN ([facility]) Ciprofloxacin 250 MG Oral Tablet ETHAN ([facility]) 0.5 ML dulaglutide 1.5 MG/ML Auto-Injector [Trulicity] ETHAN ([facility]) Sertraline 50 MG Oral Tablet ETHAN ([facility]) Sertraline 25 MG Oral Tablet ETHAN ([facility]) Omeprazole 40 MG Delayed Release Oral Capsule ETHAN ([facility]) NITROFURANTOIN, MACROCRYSTALS 25 MG / Ni trofurantoin, Monohydrate 75 MG Oral Capsule ETHAN ([facility]) Metronidazole 500 MG Oral Tablet ETHAN ([facility]) Metronidazole 0.0075 MG/MG Vaginal Gel ETHAN ([facility]) meloxicam 15 MG Oral Tablet ETHAN ([facility]) Lisinopril 5 MG Oral Tablet ETHAN ([facility]) Simethicone 180 MG Oral Capsule ETHAN ([facility]) gabapentin 600 MG Oral Tablet ETHAN ([facility]) Fluoxetine 10 MG Oral Capsule ETHAN ([facility]) Dicyclomine Hydrochloride 10 MG Oral Capsule ETHAN ([facility]) Ciprofloxacin 250 MG Oral Tablet ETHAN ([facility]) 0.5 ML dulaglutide 1.5 MG/ML Auto-Injector [Trulicity] ETHAN ([facility]) Sertraline 50 MG Oral Tablet ETHAN ([facility]) Sertraline 25 MG Oral Tablet ETHAN ([facility]) Sertraline 100 MG Oral Tablet ETHAN ([facility]) Omeprazole 40 MG Delayed Release Oral Capsule ETHAN ([facility]) NITROFURANTOIN, MACROCRYSTALS 25 MG / Ni trofurantoin, Monohydrate 75 MG Oral Capsule ETHAN ([facility]) Metronidazole 500 MG Oral Tablet ETHAN ([facility]) Metronidazole 0.0075 MG/MG Vaginal Gel ETHAN ([facility]) meloxicam 15 MG Oral Tablet ETHAN ([facility]) Lisinopril 5 MG Oral Tablet ETHAN ([facility]) Simethicone 180 MG Oral Capsule ETHAN ([facility]) gabapentin 600 MG Oral Tablet ETHAN ([facility]) Fluoxetine 10 MG Oral Capsule ETHAN ([facility]) Dicyclomine Hydrochloride 10 MG Oral Capsule ETHAN ([facility]) Ciprofloxacin 250 MG Oral Tablet ETHAN ([facility])
--- OUTSIDE RECORDS SUMMARY | 2021-01-09 22:27 | CCD ---
Author Author [facility] Organization [facility] Address Unknown Phone Unavailable Support Name Relationship Address Phone SSV* Next Of Kin [address] [place] [address] [facility] Next Of Kin [address] [address] Kentrell Huntley Next Of Kin [address] [place] [address] Danni Hazel Next Of Kin [address] [place] [address] Melia Soares Next Of Kin [address] [place], [place] [id number] SAMSCLUDileep Next Of Kin [address] [place] [address] REANNA VALDEZ Next Of Kin [address] [place] [address] Doris Cullen MD Next Of Kin [address] [place], [place] [phone] [facility] Next Of Kin [address] [place] [address] SELF EMPLOYEE Next Of Kin [address] [place] [address] [place] [employer] [place] Next Of Kin [place] [id number] [employer] [place] [address] PRICECHOP Next Of Kin [address] [place] [address] CHLOE Next Of Kin [address] [place] [id number] [place]UE [place] [address] UE Next Of Kin Unknown Unavailable SUPERDUPER Next Of Kin [address] [place] [address] LATOSHA [place] [address] JR* [place] [address] [facility] [place] [address] YAIMA SKYLAR Next Of Kin [address] [facility] [address] [place] [phone] HAMILTON STAPLETON Next Of Kin TAMPA [place] [address] Care Team Providers Care Beauty Culture Teacher Name Role Phone WELLER, SERAFIN KENTRELL RPA-C [...] Unavailable WELLER, SERAFIN KENTRELL RPA-C Unavailable Unavailable Sonia, Sandra Unavailable Unavailable Sonia, [...] [employer] Unavailable Unavailable SlezkaArjunjtech Unavailable Unavailable Stover, Haviland Sarah Unavailable Unavailable Stover, Haviland Sarah Unavailable Unavailable Stover, Haviland Sarah Unavailable Unavailable Stover, Haviland Sarah Unavailable Unavailable Stover, Haviland Sarah Unavailable Unavailable Stover, Haviland Sarah Unavailable Unavailable Stover, Haviland Sarah Unavailable Unavailable Stover, Haviland Sarah Unavailable Unavailable Stover, Haviland Sarah Unavailable Unavailable Stover, Haviland Sarah Unavailable Unavailable Stover, Haviland Sarah Unavailable Unavailable Stover, Haviland Sarah Unavailable Unavailable Stover, Haviland Sarah Unavailable Unavailable GREGORIO, M AYO PA [...] Sridevi PA Unavailable Unavailable Pupillo, Flaca Unavailable [phone] Elizabeth-Centner, Hilary Unavailable Unavailable Elizabeth-Centner, Hilary Unavailable [...] E JOSETTE MADSEN Unavailable Unavailable HORACIO, E JOSTETE MADSEN Unavailable Unavailable HORACIO, E JOSETTE MADSEN [...] Unavailable Unavailable Messi ArevaloC Unavailable Unavailable Messi ArevaolC Unavailable Unavailable Messi ArevaloC Unavailable Unavailable Messi [...] Unavailable Arevalo, M Christopher PA-C Unavailable Unavailable Areavlo, M Christopher PA-C Unavailable Unavailable Arevalo, M [...] is protected by Article 27-F of the [facility] Public Health law. If you continue you may have access to information: Regarding HIV / AIDS; Provided by facilities licensed or operated by the [facility] Office of Mental Health; or Provided by the [facility] Office for People With Developmental Disabilities. If such information is present, then the following [facility] mandated warning applies: This information has been [...] law may result in a fine or snf sentence or both. A general authorization for the release of medical or other information is NOT sufficient authorization for further disc losure. Allergies and Adverse Reactions Type Description Substance Reaction Status Data Source(s ) Allergy to substance Severe Trulicity Diarrhea ATHE NA ([facility]) Allergy to substance Severe Trulicity Diarrhea ATHE NA ([facility]) Propensity to adverse reactions PENICILLINS Penicillin [facility] Propensity to adverse reactions PENICILLINS Penicillins Ac tive [facility] Family History Family Member Name Family Member Gender Family Member Status Date o f Status Description Data Source(s) Unknown Male Problem MEDENT ([facility]) Encounters Encounter Providers Location Date Indications Data Source(s ) Outpatient Attender: JOSETTE LEONARD MD 02/22/2021 12:00 :[address] [facility] Kentrell Weller RPA-C: [address], [place] [address], Ph. Attender: KENTRELL ROSEN [facility] Medical 11/19/2020 12:00:00 AM EDT [facility] ([facility]) Kentrell Weller RPA-C: [address], [place] [address], Ph. Attender: KENTRELL ROSEN [facility] Medical 11/12/2020 12:00:00 AM EDT ETH[facility] ([facility]) Kentrell Weller RPA-C: [address], [place] [address], Ph. Attender: KENTRELL ROSEN [facility] Medical 11/12/2020 12:00:00 AM EDT [facility]) Outpatient Attender: Sridevi OSUNA 021 03:16:29 PM EDT - 11/01/2020 04:01:52 PM EDT [facility]ap ([facility] ) Outpatient Attender: MELVIN OSUNA 10/11/2020 12:00:0 0 AM EDT [facility] Outpatient Attender: Easton Mcclure: ROXANNA ZAVALA MD 10/01/2020 02:49:57 PM EDT - 10/01/2020 03:52:48 PM EDT [facility] ([facility]) Kentrell Weller RPA-C: [address], [place] [address], Ph. Attender: KENTRELL ROSEN [facility] Medical 09/07/2020 12:00:00 AM EDT [facility] ([facility]) Kentrell Weller RPA-C: [address], [place] [address], Ph. Attender: KENTRELL ROSEN [facility] Medical 09/07/2020 12:00:00 AM EDT [facility] ([facility]) Kentrell Weller RPA-C: [address], [place] [address], Ph. Attender: KENTRELL ROSEN [facility] Medical 09/07/2020 12:00:00 AM EDT [facility] ([facility]) Outpatient Attender: Masoud Luo MDReferrer: YAZMIN HUTCHINSELVIE-SJP.ELVIE 08/26/2020 12:00:00 AM EDT - 08/30/2020 09:13:46 AM EDT [facility] OFFICE OUTPATIENT VISIT 15 MINUTES Attender: JAIME OSUNA Phys ical Therapy 07/22/2020 09:40:00 AM EDT MEDENT ([facility]) Outpatient Attender: JUJU FRANK 07/20/2020 12:00:00 AM EDT [facility] Flaca Rosario, MACHINE ATTENDANT: [address], [place] [address], Ph. Attender: Flaca Rosario [facility] Medical 07/19/2020 12:00:00 AM EDT ERIE ([facility]) Flaca Rosario, MACHINE ATTENDANT: [address], [place] [address], Ph. Attender: Flaca Rosario [facility] Medical 07/19/2020 12:00:00 AM EDT ERIE ([facility]) Flaca Rosario MACHINE ATTENDANT: [address], [place] [address], Ph. Attender: Flaca Rosario [facility] Medical 07/19/2020 12:00:00 AM EDT ERIE ([facility]) Flaca Rosario, MACHINE ATTENDANT: [address], [place] [address], Ph. Attender: Flaca Rosario [facility] Medical 07/19/2020 12:00:00 AM EDT ERIE ([facility]) Outpatient Referrer: AMANDA ZAVALA 07/08/2020 12:00:00 AM ED T [facility] Outpatient Attender: JOSETTE LEONARD MDAttender: RL Rocharer: JOSETTE LEONARD MD 06/30/2020 12:00:00 AM EDT - 07/01/2020 12:00:00 AM EDT Other specified disorders of adrenal gland [facility] Other specified disorders of adrenal gla nd Outpatient Attender: JOSETTE LEONARD MDAttender: RL Rocharer: JOSETTE LEONARD MD 06/29/2020 12:00:00 AM EDT - 06/30/2020 12:00:00 AM EDT Type 2 diabetes mellitus with other specified complication [facility] Type 2 diabetes mellitus with other spec ified complication Outpatient Attender: JOSETTE LEONARD MDAttender: RL Solanoferrer: JOSETTE LEONARD MD 06/28/2020 12:00:00 AM EDT - 06/29/2020 12:00:00 AM EDT Type 2 diabetes mellitus with other specified complication [facility] Type 2 diabetes mellitus with other spec ified complication Outpatient Attender: JOSETTE LEONARD MDReferrer: YAZMIN BUSTOS [id number] 06/25/2020 12:00:00 AM EDT - 06/25/2020 04:18:58 PM EDT Nontoxic single thyroid nodule [facility] Nontoxic single thyroid nodule Yazmin Bustos RPA-C: [address], [place] [address], Ph. Attender: YAZMIN BUSTOS [facility] Medical 06/23/2020 12:00:00 AM EDT [facility]) ARUNA AlcarazC: [address], [place] [address], Ph. Attender: YAZMIN BUSTOS [facility] Medical 06/23/2020 12:00:00 AM EDT ERIE ([facility]) ARUNA AlcarazC: [address], [place] [address], Ph. Attender: YAZMIN BUSTOS [facility] Medical 06/23/2020 12:00:00 AM EDT ERIE ([facility]) Yazmin Bustos RPA-C: [address], [place] [address], Ph. Attender: YAZMIN BUSTOS [facility] 06/23/2020 12:00:00 AM EDT ETHAN ([facility]) Yazmin Bustos RPA-C: [address], [place] [address], Ph. Attender: YAZMIN BUSTOS [facility] Medical 06/23/2020 12:00:00 AM EDT ETHAN ([facility]) Yazmin Bustos RPA-C: [address], [address], [place] [address], Ph. Attender: YAZMIN BUSTOS [facility] Medical 06/21/2020 12:00:00 AM EDT ERIE ([facility]) Yazmin Bustos RPA-C: [address], [place] [address], Ph. Attender: YAZMIN BUSTOS [facility] Medical 06/21/2020 12:00:00 AM EDT ETHAN ([facility]) ARUNA AlcarazC: [address], [address], [place] [address], Ph. Attender: YAZMIN BUSTOS [facility] Medical 06/21/2020 12:00:00 AM EDT ERIE ([facility]) Yazmin Bustos RPA-C: [address], [address], [place] [address], Ph. Attender: YAZMIN BUSTOS [facility] Medical 06/21/2020 12:00:00 AM EDT ERIE ([facility]) Yazmin Bustos RPA-C: [address], [address], [place] [address], Ph. Attender: YAZMIN JUÁREZBINS [facility] Medical 06/21/2020 12:00:00 AM EDT ETHAN ([facility]) Yazmin Juli RPA-C: [address], [address], [place] [address], Ph. Attender: YAZMIN JUÁREZBINS [facility] Medical 06/21/2020 12:00:00 AM EDT ETHAN ([facility]) Yazmindarcie Bustos RPA-C: [address], [address], [place] [address], Ph. Attender: YAZMIN JULI [facility] Medical 06/21/2020 12:00:00 AM EDT ETHAN ([facility]) Tati Scott MD: [address], [place] [address], Ph. Attender: Tati Scott [facility] Medical 06/15/2020 12:00:00 AM EDT ETHAN ([facility]) Tati Scott MD: [address], [place] [address], Ph. Attender: Tati Scott [facility] Medical 06/15/2020 12:00:00 AM EDT ETHAN ([facility]) Tati Scott MD: [address], [place] [address], Ph. Attender: Tati Scott [facility] Medical 06/15/2020 12:00:00 AM EDT ETHAN ([facility]) Tati Scott MD: [address], [place] [address], Ph. Attender: Tati Scott [facility] Medical 06/15/2020 12:00:00 AM EDT ETHAN ([facility]) Ttai Scott MD: [address], [place] [address], Ph. Attender: Tati Scott [facility] Medical 06/15/2020 12:00:00 AM EDT ETHAN ([facility]) Tati Scott MD: [address], [place] [address], Ph. Attender: Tati Scott [facility] Medical 06/15/2020 12:00:00 AM EDT ETHAN ([facility]) Tati Scott MD: [address], [place] [address], Ph. Attender: Tati Scott [facility] Medical 06/15/2020 12:00:00 AM EDT ETHAN ([facility]) Tati Scott MD: [address], [place] [address], Ph. Attender: Tati Scott [facility] Medical 06/15/2020 12:00:00 AM EDT ETHAN ([facility]) GABRIEL LeónC: [address], [place] [address], Ph. Attender: Sarah Stover [facility] Medical 06/09/2020 12:00:00 AM EDT ETHAN ([facility]) GABRIEL LeónC: [address], [place] [address], Ph. Attender: Sarah Stover [facility] Medical 06/09/2020 12:00:00 AM EDT ETHAN ([facility]) GABRIEL LeónC: [address], [place] [address], Ph. Attender: Sarah Stover [facility] Medical 06/09/2020 12:00:00 AM EDT ETHAN ([facility]) GABRIEL LeónC: [address], [place] [address], Ph. Attender: Sarah Stover [facility] Medical 06/09/2020 12:00:00 AM EDT ETHAN ([facility]) GABRIEL LeónC: [address], [place] [address], Ph. Attender: Sarah Stover [facility] Medical 06/09/2020 12:00:00 AM EDT ETHAN ([facility]) GABRIEL LeónC: [address], [place] [address], Ph. Attender: Sarah Stover [facility] Medical 06/09/2020 12:00:00 AM EDT ETHAN ([facility]) GABRIEL LeónC: [address], [place] [address], Ph. Attender: Sarah Stover [facility] Medical 06/09/2020 12:00:00 AM EDT ETHAN ([facility]) GABRIEL LeónC: [address], [place] [address], Ph. Attender: Sarah Stover [facility] Medical 06/09/2020 12:00:00 AM EDT ETHAN ([facility]) LUZ ELENA León-C: [address], [place], [place] [address], Ph. Attender: Sarah Stover [facility] Medical 06/09/2020 12:00:00 AM EDT ETHAN ([facility]) Outpatient Attender: KEYONA STROUD [facility] 05/25 10:58:37 AM EDT - 05/25/2020 11:35:53 AM EDT [facility] ([facility] ) ARUNA AlcarazC: [address], [address], [place] [address], Ph. Attender: YAZMIN BUSTOS [facility] Medical 05/14/2020 12:00:00 AM EST ETHAN ([facility]) ARUNA AlcarazC: [address], [address], [place] [address], Ph. Attender: YAZMIN BUSTOS [facility] Medical 05/14/2020 12:00:00 AM EST ETHAN ([facility]) ARUNA AlcarazC: [address], [address], [place] [address], Ph. Attender: YAZMIN BUSTOS [facility] Medical 05/14/2020 12:00:00 AM EST ETHAN ([facility]) ARUNA AlcarazC: [address], [address], [place] [address], Ph. Attender: YAZMIN BUSTOS [facility] Medical 05/14/2020 12:00:00 AM EST ETHAN ([facility]) Yazmin Bustos RPA-C: [address], [address], [place] [address], Ph. Attender: YAZMIN BUSTOS [facility] Medical 05/14/2020 12:00:00 AM EST ETHAN ([facility]) Yazmin Bustos RPA-C: [address], [address], [place] [address], Ph. Attender: YAZMIN BUSTOS [facility] Medical 05/14/2020 12:00:00 AM EST ETHAN ([facility]) Yazmin Bustos RPA-C: [address], [address], [place] [address], Ph. Attender: YAZMIN BUSTOS [facility] Medical 05/14/2020 12:00:00 AM EST ETHAN ([facility]) Yazmin Bustos RPA-C: [address], [address], [place] [address], Ph. Attender: YAZMIN BUSTOS [facility] Medical 05/14/2020 12:00:00 AM EST ETHAN ([facility]) Yazmin Bustos RPA-C: [address], [address], [place] [address], Ph. Attender: YAZMIN BUSTOS [facility] Medical 05/14/2020 12:00:00 AM EST ETHAN ([facility]) Yazmin Bustos RPA-C: [address], [address], [place] [address], Ph. Attender: YAZMIN BUSTOS [facility] Medical 05/14/2020 12:00:00 AM EST ETHAN ([facility]) Hilary Johnson RPA-C: [address], [place] [address], Ph. Attender: Hilary Garces [facility] Medical 05/12/2020 12:00:00 AM EST [facility]) Hilary Johnson RPA-C: [address], [place] [address], Ph. Attender: Hilary Garces [facility] Medical 05/12/2020 12:00:00 AM EST [facility] ([facility]) Hilary Johnson RPA-C: [address], [place] [address], Ph. Attender: Hilary Garces [facility] Medical 05/12/2020 12:00:00 AM EST [facility] ([facility]) ARUNA AgeeC: [address], [place] [address], Ph. Attender: Hilary Garces [facility] Medical 05/12/2020 12:00:00 AM EST [facility] ([facility]) Hilary Johnson RPA-C: [address], [place] [address], Ph. Attender: Hilary Garces [facility] Medical 05/12/2020 12:00:00 AM EST [facility] ([facility]) Hilary Johnson RPA-C: [address], [place] [address], Ph. Attender: Hilary Garces [facility] Medical 05/12/2020 12:00:00 AM EST [facility] ([facility]) ARUNA AgeeC: [address], [place] [address], Ph. Attender: Hilary Garces [facility] Medical 05/12/2020 12:00:00 AM EST [facility] ([facility]) ARUNA AgeeC: [address], [place] [address], Ph. [facility]: [facility] Medical 05/12/2020 12:00:00 AM EST [facility] ([facility]) ARUNA AgeeC: [address], [place] [address], Ph. Attender: Hilary Garces [facility] Medical 05/12/2020 12:00:00 AM EST [facility] ([facility]) ARUNA AgeeC: [address], [place] [address], Ph. Attender: Hilary Garces [facility] Medical 05/12/2020 12:00:00 AM EST [facility] ([facility]) ARUNA AgeeC: [address], [place] [address], Ph. [facility]: [facility] Medical 05/12/2020 12:00:00 AM EST [facility] ([facility]) Outpatient Attender: AYO OSUNA Physical Therapy 04/12 09:15:00 AM EST MEDENT ([facility]) FOREST GrovesC: [address], [place] [address], Ph. Attender: Fatimah OSUNA [facility] Medical 04/29/2020 12:00:00 AM EST [facility] ([facility]) Fatimah Cavazos PA-C: [address], [place] [address], Ph. Attender: Fatimah OSUNA [facility] Medical 04/29/2020 12:00:00 AM EST [facility] ([facility]) Fatimah Cavazos PA-C: [address], [place] [address], Ph. Attender: Fatimah OSUNA [facility] Medical 04/29/2020 12:00:00 AM EST [facility] ([facility]) Fatimah Cavazos PA-C: [address], [place] [address], Ph. Attender: Fatimah OSUNA [facility] Medical 04/29/2020 12:00:00 AM EST [facility] ([facility]) Fatimah Cavazos PA-C: [address], [place] [address], Ph. Attender: Fatimah OSUNA [facility] Medical 04/29/2020 12:00:00 AM EST [facility] ([facility]) Fatimah Cavazos PA-C: [address], [address], [place] [address], Ph. Attender: Fatimah OSUNA [facility] Medical 04/29/2020 12:00:00 AM EST [facility] ([facility]) FOREST GrovseC: [address], [place] [address], Ph. Attender: Fatimah OSUNA [facility] Medical 04/29/2020 12:00:00 AM EST [facility] ([facility]) Fatimah Cavazos PA-C: [address], [address], [place] [address], Ph. Attender: Fatimah OSUNA [facility] Medical 04/29/2020 12:00:00 AM EST [facility] ([facility]) Fatimah Cavazos PA-C: [address], [place] [address], Ph. Attender: Fatimah OSUNA [facility] Medical 04/29/2020 12:00:00 AM EST [facility] ([facility]) Fatimah Cavazos PA-C: [address], [place] [address], Ph. Attender: Fatimah OSUNA [facility] Medical 04/29/2020 12:00:00 AM EST [facility] ([facility]) Fatimah Cavazos PA-C: [address], [place] [address], Ph. Attender: Fatimah OSUNA [facility] Medical 04/29/2020 12:00:00 AM EST [facility] ([facility]) Fatimah Cavazos PA-C: [address], [place] [address], Ph. Attender: Fatimah OSUNA [facility] 04/29/2020 12:00:00 AM EST [facility] ([facility]) Flaca Rosario, MACHINE ATTENDANT: [address], [place] [address], Ph. Attender: Flaca Rosario [facility] Medical 03/29/2020 12:00:00 AM EST [facility] ([facility]) Flaca Rosario, MACHINE ATTENDANT: [address], [place] [address], Ph. Attender: Flaca Rosario [facility] Medical 03/29/2020 12:00:00 AM EST [facility] ([facility]) Flaca Rosario, MACHINE ATTENDANT: [address], [place] [address], Ph. Attender: Flaca Rosario [facility] Medical 03/29/2020 12:00:00 AM EST [facility] ([facility]) Flaca Rosario, MACHINE ATTENDANT: [address], [place] [address], Ph. Attender: Flaca Rosario [facility] Medical 03/29/2020 12:00:00 AM EST [facility] ([facility]) Flaca Rosario, MACHINE ATTENDANT: [address], [place] [address], Ph. Attender: Flaca Rosario [facility] Medical 03/29/2020 12:00:00 AM EST [facility] ([facility]) Flaca Rosario, MACHINE ATTENDANT: [address], [place] [address], Ph. Attender: Flaca Rosario [facility] Medical 03/29/2020 12:00:00 AM EST [facility] ([facility]) Flaca Rosario, MACHINE ATTENDANT: [address], [place] [address], Ph. Attender: Flaca Rosario [facility] [facility] 03/29/2020 12:00:00 AM EST ETHAN ([facility]) Flaca Rosario, MACHINE ATTENDANT: [address], [place] [address], Ph. Attender: Flaca Rosario [facility] Medical 03/29/2020 12:00:00 AM EST ETHAN ([facility]) Flaca Rosario, MACHINE ATTENDANT: [address], [place] [address], Ph. Attender: Flaca Rosario [facility] Medical 03/29/2020 12:00:00 AM EST ETHAN ([facility]) Flaca Rosario, MACHINE ATTENDANT: [address], [place] [address], Ph. Attender: Flaca Rosario [facility] Medical 03/29/2020 12:00:00 AM EST ETHAN ([facility]) Flaca Rosario, MACHINE ATTENDANT: [address], [place] [address], Ph. Attender: Flaca Rosario [facility] Medical 03/29/2020 12:00:00 AM EST ETHAN ([facility]) Flaca Rosario, MACHINE ATTENDANT: [address], [place] [address], Ph. Attender: Flaca Rosario [facility] Medical 03/29/2020 12:00:00 AM EST ETHAN ([facility]) Flaca Rosario, MACHINE ATTENDANT: [address], [place] [address], Ph. Attender: Flaca Rosario [facility] Medical 03/29/2020 12:00:00 AM EST ETHAN ([facility]) Outpatient Attender: AYO OSUNA [facility] 03/12 08:30:00 AM EST MEDENT ([facility]) ARUNA AlcarazC: [address], [place] [address], Ph. Attender: YAZMIN BUSTOS [facility] Medical 03/19/2020 12:00:00 AM EST ETHAN ([facility]) ARUNA AlcarazC: [address], [place] [address], Ph. Attender: YAZMIN BUSTOS [facility] Medical 03/19/2020 12:00:00 AM EST ETHAN ([facility]) ARUNA AlcarazC: [address], [address], [place] [address], Ph. Attender: YAZMIN BUSTOS [facility] Medical 03/19/2020 12:00:00 AM EST ETHAN ([facility]) ARUNA AlcarazC: [address], [address], [place] [address], Ph. Attender: YAZMIN BUSTOS [facility] Medical 03/19/2020 12:00:00 AM EST ETHAN ([facility]) Yazmin Bustos, RPA-C: [address], [place] [address], Ph. Attender: YAZMIN BUSTOS [facility] Medical 03/19/2020 12:00:00 AM EST ETHAN ([facility]) Yazmin Bustos RPA-C: [address], [address], [place] [address], Ph. Attender: YAZMIN BUSTOS [facility] Medical 03/19/2020 12:00:00 AM EST ETHAN ([facility]) Yazmin Bustos RPA-C: [address], [address], [place] [address], Ph. Attender: YAZMIN BUSTOS [facility] Medical 03/19/2020 12:00:00 AM EST ETHAN ([facility]) Yazmin Bustos RPA-C: [address], [place] [address], Ph. Attender: YAZMIN BUSTOS [facility] Medical 03/19/2020 12:00:00 AM EST ETHAN ([facility]) Yazmin Bustos RPA-C: [address], [address], [place] [address], Ph. Attender: YAZMIN UBSTOS [facility] Medical 03/19/2020 12:00:00 AM EST ETHAN ([facility]) Yazmin Bustos RPA-C: [address], [place] [address], Ph. Attender: YAZMIN BUSTOS [facility] Medical 03/19/2020 12:00:00 AM EST ETHAN ([facility]) Yazmin Bustos RPA-C: [address], [place] [address], Ph. Attender: YAZMIN BUSTOS [facility] Medical 03/19/2020 12:00:00 AM EST ETHAN ([facility]) Yazmin Bustos RPA-C: [address], [address], [place] [address], Ph. Attender: YAZMIN BUSTOS [facility] Medical 03/19/2020 12:00:00 AM EST ETHAN ([facility]) Yazmin Bustos RPA-C: [address], [address], [place] [address], Ph. Attender: YAZMIN BUSTOS [facility] Medical 03/19/2020 12:00:00 AM EST ETHAN ([facility]) ARUNA AlcarazC: [address], [address], [place] [address], Ph. Attender: YAZMIN BUSTOS [facility] Medical 03/19/2020 12:00:00 AM EST ETHAN ([facility]) ARUNA SteinC: [address], [place] [address], Ph. Attender: KENTRELL ROSEN [facility] Medical 02/26/2020 12:00:00 AM EST [facility] ([facility]) ARUNA SteinC: [address], [place] [address], Ph. Attender: KENTRELL VALDOVINOSC [facility] Medical 02/26/2020 12:00:00 AM EST ETHAN ([facility]) Kentrell Weller RPA-C: [address], [place] [address], Ph. Attender: KENTRELL WELLER RPA-C [facility] Medical 02/26/2020 12:00:00 AM EST ETHAN ([facility]) Kentrell Weller RPA-C: [address], [place] [address], Ph. Attender: KENTRELL WELLER RPA-C [facility] Medical 02/26/2020 12:00:00 AM EST ETHAN ([facility]) Kentrell Weller RPA-C: [address], [place] [address], Ph. Attender: KENTRELL WELLER RPA-C [facility] Medical 02/26/2020 12:00:00 AM EST ETHAN ([facility]) Kentrell Weller RPA-C: [address], [place] [address], Ph. Attender: KENTRELL WELLER RPA-C [facility] Medical 02/26/2020 12:00:00 AM EST ETHAN ([facility]) Kentrell Weller RPA-C: [address], [place] [address], Ph. Attender: KENTRELL WELLER RPA-C [facility] Medical 02/26/2020 12:00:00 AM EST ETHAN ([facility]) Kentrell Weller RPA-C: [address], [place] [address], Ph. Attender: KENTRELL WELLER RPA-C [facility] Medical 02/26/2020 12:00:00 AM EST ETHAN ([facility]) Kentrell Weller, RPA-C: [address], [address], [place] [address], Ph. Attender: KENTRELL WELLER RPA-C [facility] Medical 02/26/2020 12:00:00 AM EST ETHAN ([facility]) Kentrell Weller, RPA-C: [address], [place] [address], Ph. Attender: KENTRELL WELLER RPA-C [facility] Medical 02/26/2020 12:00:00 AM EST ETHAN ([facility]) Kentrell Weller RPA-C: [address], [place] [address], Ph. Attender: KENTRELL WELLER RPA-C [facility] Medical 02/26/2020 12:00:00 AM EST ETHAN ([facility]) Kentrell Weller, RPA-C: [address], [place] [address], Ph. Attender: KENTRELL WELLER RPA-C [facility] Medical 02/26/2020 12:00:00 AM EST ETHAN ([facility]) Kentrell Weller, RPA-C: [address], [place] [address], Ph. Attender: KENTRELL WELLER RPA-C [facility] Medical 02/26/2020 12:00:00 AM EST ETHAN ([facility]) Kentrell Weller RPA-C: [address], [place] [address], Ph. Attender: KENTRELL WELLER RPA-C [facility] Medical 02/26/2020 12:00:00 AM EST ETHAN ([facility]) Kentrell Weller RPA-C: [address], [place] [address], Ph. Attender: KENTRELL WELLER RPA-C [facility] Medical 02/26/2020 12:00:00 AM EST ETHAN ([facility]) Kentrell Weller RPA-C: [address], [place] [address], Ph. Attender: KENTRELL WELLER RPA-C [facility] Medical 02/20/2020 12:00:00 AM EST ETHAN ([facility]) Kentrell Weller RPA-C: [address], [place] [address], Ph. Attender: KENTRELL WELLER RPA-C [facility] Medical 02/20/2020 12:00:00 AM EST ETHAN ([facility]) Kentrell Weller RPA-C: [address], [place] [address], Ph. Attender: KENTRELL WELLER RPA-C [facility] Medical 02/20/2020 12:00:00 AM EST ETHAN ([facility]) Kentrell Weller RPA-C: [address], [place] [address], Ph. Attender: KENTRELL WELLER RPA-C [facility] Medical 02/20/2020 12:00:00 AM EST ETHAN ([facility]) Kentrell Weller, RPA-C: [address], [place] [address], Ph. Attender: KENTRELL WELLER RPA-C [facility] Medical 02/20/2020 12:00:00 AM EST ETHAN ([facility]) Kentrell Weller, RPA-C: [address], [place] [address], Ph. Attender: KENTRELL WELLER RPA-C [facility] Medical 02/20/2020 12:00:00 AM EST ETHAN ([facility]) Kentrell Weller, RPA-C: [address], [place] [address], Ph. Attender: KENTRELL WELLER RPA-C [facility] Medical 02/20/2020 12:00:00 AM EST ETHAN ([facility]) Kentrell Weller, RPA-C: [address], [place] [address], Ph. Attender: KENTRELL WELLER RPA-C [facility] Medical 02/20/2020 12:00:00 AM EST ETHAN ([facility]) Kentrell Weller RPA-C: [address], [place] [address], Ph. Attender: KENTRELL WELLER RPA-C [facility] Medical 02/20/2020 12:00:00 AM EST ETHAN ([facility]) Kentrell Weller, RPA-C: [address], [place] [address], Ph. Attender: KENTRELL WELLER RPA-C [facility] Medical 02/20/2020 12:00:00 AM EST ETHAN ([facility]) Kentrell Weller RPA-C: [address], [place] [address], Ph. Attender: KENTRELL WELLER RPA-C [facility] Medical 02/20/2020 12:00:00 AM EST ETHAN ([facility]) Kentrell Weller RPA-C: [address], [place] [address], Ph. Attender: KENTRELL WELLER RPA-C [facility] Medical 02/20/2020 12:00:00 AM EST ETHAN ([facility]) Kentrell Weller RPA-C: [address], [place] [address], Ph. Attender: KENTRELL WELLER RPA-C [facility] Medical 02/20/2020 12:00:00 AM EST ETHAN ([facility]) Kentrell Weller RPA-C: [address], [place] [address], Ph. Attender: KENTRELL WELLER RPA-C [facility] Medical 02/20/2020 12:00:00 AM EST ETHAN ([facility]) Kentrell Weller, RPA-C: [address], [place] [address], Ph. Attender: KENTRELL WELLER RPA-C [facility] Medical 02/20/2020 12:00:00 AM EST ETHAN ([facility]) Kentrell Weller RPA-C: [address], [place] [address], Ph. Attender: KENTRELL VALDOVINOSC [facility] 02/20/2020 12:00:00 AM EST ETHAN ([facility]) Outpatient Attender: KENTRELL WELLER RPA-C [facility] 12/24/2019 12:17:01 PM EDT [facility] Outpatient Attender: KENTRELL WELLER RPA-C [facility] 12/24/2019 10:54:03 AM EDT [facility] Outpatient Attender: KENTRELL WELLER RPA-C [facility] 12/24/2019 10:35:03 AM EDT [facility] Outpatient Attender: KENTRELL WELLER RPA-C [facility] 12/24/2019 10:35:02 AM EDT [facility] Outpatient Attender: KENTRELL WELLER RPA-C [facility] 12/24/2019 09:18:03 AM EDT [facility] Outpatient Attender: KENTRELL WELLER RPA-C [facility] 12/24/2019 09:18:01 AM EDT [facility] Outpatient Attender: KENTRELL WELLER RPA-C [facility] 12/18/2019 08:01:02 AM EDT [facility] Outpatient Attender: KENTRELL WELLER RPA-C [facility] 12/17/2019 03:56:07 PM EDT [facility] Outpatient Attender: KENTRELL WELLER RPA-C [facility] 12/17/2019 02:30:06 PM EDT [facility] Outpatient Attender: KENTRELL WELLER RPA-C [facility] 12/11/2019 02:13:00 PM EDT [facility] Outpatient Attender: KENTRELL WELLER RPA-C [facility] 12/05/2019 05:01:59 PM EDT [facility] Outpatient Attender: KENTRELL WELLER RPA-C [facility] 12/05/2019 09:41:05 AM EDT [facility] Outpatient Attender: KENTRELL WELLER RPA-C [facility] 12/01/2019 03:02:01 PM EDT [facility] Outpatient Attender: KENTRELL WELLER RPA-C [facility] 11/27/2019 01:03:01 PM EDT [facility] Outpatient Attender: KENTRELL WELLER RPA-C [facility] 11/19/2019 09:34:03 AM EDT [facility] Outpatient Attender: KENTRELL WELLER RPA-C [facility] 11/19/2019 09:03:02 AM EDT [facility] Outpatient Attender: KENTRELL WELLER RPA-C [facility] 11/19/2019 09:03:01 AM EDT [facility] Outpatient Attender: KENTRELL WELLER RPA-C [facility] 11/13/2019 02:27:02 PM EDT [facility] Outpatient Attender: KENTRELL WELLER RPA-C [facility] 11/13/2019 02:26:00 PM EDT [facility] Outpatient Attender: KENTRELL WELLER RPA-C [facility] 11/13/2019 12:52:01 PM EDT [facility] Immunizations Vaccine Date Status Description Data Source(s) COVID-19, mRNA, LNP-S, PF, 100 mcg/0.5 mL dose 06/09/2020 11 :16:23 AM EDT completed .5 mL [facility]) COVID-19, mRNA, LNP-S, PF, 100 mcg/0.5 mL dose 06/09/2020 11 :16:23 AM EDT completed .5 mL [facility]) COVID-19, mRNA, LNP-S, PF, 100 mcg/0.5 mL dose 06/09/2020 11 :16:23 AM EDT completed .5 mL [facility]) COVID-19, mRNA, LNP-S, PF, 100 mcg/0.5 mL dose 06/09/2020 11 :16:23 AM EDT completed .5 mL [facility]) COVID-19, mRNA, LNP-S, PF, 100 mcg/0.5 mL dose 06/09/2020 11 :16:23 AM EDT completed .5 mL [facility]) COVID-19, mRNA, LNP-S, PF, 100 mcg/0.5 mL dose 06/09/2020 11 :16:23 AM EDT completed .5 mL [facility]) COVID-19, mRNA, LNP-S, PF, 100 mcg/0.5 mL dose 06/09/2020 11 :16:23 AM EDT completed .5 mL [facility] ([facility]) COVID-19, mRNA, LNP-S, PF, 100 mcg/0.5 mL dose 06/09/2020 11 :16:23 AM EDT completed .5 mL [facility] ([facility]) COVID-19, mRNA, LNP-S, PF, 100 mcg/0.5 mL dose 06/09/2020 11 :16:23 AM EDT completed .5 mL [facility] ([facility]) COVID-19 VACCINE Moderna 06/09/2020 12:00:00 AM EDT completed [facility] Vaccine Series Complete: YESThis Data wa s Submitted to [facility] Via [employer]. COVID-19, mRNA, LNP-S, PF, 100 mcg/0.5 mL dose 05/12/2020 02 :31:06 PM EST completed .5 mL [facility] ([facility]) COVID-19, mRNA, LNP-S, PF, 100 mcg/0.5 mL dose 05/12/2020 02 :31:06 PM EST completed .5 mL [facility] ([facility]) COVID-19, mRNA, LNP-S, PF, 100 mcg/0.5 mL dose 05/12/2020 02 :31:06 PM EST completed .5 mL [facility] ([facility]) COVID-19, mRNA, LNP-S, PF, 100 mcg/0.5 mL dose 05/12/2020 02 :31:06 PM EST completed .5 mL [facility]) COVID-19, mRNA, LNP-S, PF, 100 mcg/0.5 mL dose 05/12/2020 02 :31:06 PM EST completed .5 mL [facility] ([facility]) COVID-19, mRNA, LNP-S, PF, 100 mcg/0.5 mL dose 05/12/2020 02 :31:06 PM EST completed .5 mL ETHAN ([facility]) COVID-19, mRNA, LNP-S, PF, 100 mcg/0.5 mL dose 05/12/2020 02 :31:06 PM EST completed 10.5 mL ETHAN ([facility]) COVID-19, mRNA, LNP-S, PF, 100 mcg/0.5 mL dose 05/12/2020 02 :31:06 PM EST completed .5 mL [facility]AN ([facility]) COVID-19, mRNA, LNP-S, PF, 100 mcg/0.5 mL dose 05/12/2020 02 :31:06 PM EST completed .5 mL ETHAN ([facility]) COVID-19, mRNA, LNP-S, PF, 100 mcg/0.5 mL dose 05/12/2020 02 :31:06 PM EST completed .5 mL [facility]AN ([facility]) COVID-19, mRNA, LNP-S, PF, 100 mcg/0.5 mL dose 05/12/2020 02 :31:06 PM EST completed .5 mL [facility]AN ([facility]) COVID-19 VACCINE Moderna 05/12/2020 12:00:00 AM EST completed [facility] Vaccine Series Complete: NOThis Data was Submitted to [facility] [employer]. New in 2011. IIV4 12/24/2019 12:00:00 AM EDT completed .5 mL [facility] ([facility]) New in 2011. IIV4 12/24/2019 12:00:00 AM EDT completed 0.5 mL ETHAN ([facility]) New in 2011. IIV4 12/24/2019 12:00:00 AM EDT completed 0.5 mL ETHAN ([facility]) New in 2011. IIV4 12/24/2019 12:00:00 AM EDT completed .5 mL ETHAN ([facility]) New in 2011. IIV4 12/24/2019 12:00:00 AM EDT completed 0.5 mL ETHAN ([facility]) New in 2011. IIV4 12/24/2019 12:00:00 AM EDT completed 0.5 mL ETHAN ([facility]) New in 2011. IIV4 12/24/2019 12:00:00 AM EDT completed 0.5 mL ETHAN ([facility]) New in 2011. IIV4 12/24/2019 12:00:00 AM EDT completed 0.5 mL ETHAN ([facility]) New in 2011. IIV4 12/24/2019 12:00:00 AM EDT completed 0.5 mL [facility]AN ([facility]) New in 2011. IIV4 12/24/2019 12:00:00 AM EDT completed 0.5 mL [facility] ([facility]) New in 2011. IIV4 12/24/2019 12:00:00 AM EDT completed 0.5 mL ETHAN ([facility]) New in 2011. IIV4 12/24/2019 12:00:00 AM EDT completed 0.5 mL [facility] ([facility]) Medications Medication Brand Name Start Date Product Form Dose Route Admi nistrative Instructions Pharmacy Instructions Status Indications Reaction Description Data Source(s) canagliflozin 100 MG Oral Tablet [Invoka na] Canagliflozin (Invokana) 100 MG TABS Canagliflozin (Invokana) 100 MG TABS 07/12/2020 12:00:00 AM EDT 100 mg Oral active Take 100 mg by mouth [facility] sitagliptin 100 MG Oral Tablet sitaGLIPtin (JANUVIA) 1 00 MG tablet sitaGLIPtin (JANUVIA) 100 MG tablet 07/09/2020 12:00:00 AM EDT 1 {tbl} Oral active Take 1 tablet by mouth daily [facility] Metformin hydrochloride 1000 MG Oral Tab let metFORMIN (GLUCOPHAGE) 1000 MG tablet metFORMIN (GLUCOPHAGE) 1000 MG tablet 07/09/2020 12:00:00 AM EDT active Use as directed. Take 1 tabl et twice daily with meals. [facility] Insulin Glargine (Basaglar KwikPen) 100 UNIT/ML SOPN [id number] 07/09/2020 12:00:00 AM EDT active Inject 15 units into skin at bedtime, do not exceed more than 30 units in 1 day. Dx E11.9 [facility] BD Pen Needle Mini U/F 31G X 5 MM (Insulin Pen Needle) [id number] 06/25/2020 12:00:00 AM EDT active Use as directed. Use to inject insulin as needed. Dx E11.9 [facility] Basaglar KwikPen 100 UNIT/ML Subcutaneou s Solution Pen-injector (insulin glargine) [id number] 06/25/2020 12:00:00 AM EDT active Inject 15 units into skin at bedtime, do not exceed more than 30 units in 1 day. Dx E11.9 [facility] Lisinopril 10 MG Oral Tablet Lisinopril 10 MG Oral Tab let (ZESTRIL) Lisinopril 10 MG Oral Tablet (ZESTRIL) 06/22/2020 12:00:00 AM EDT [facility] ferrous sulfate 325 MG Oral Tablet Ferrous Sulfate 325 (65 Fe) MG Oral Tablet Ferrous Sulfate 325 (65 Fe) MG Oral Tablet 06/22/2020 12:00:00 AM EDT 1 {tbl} Oral active Take 1 tablet by janice th daily [facility] sitagliptin 50 MG Oral Tablet [Januvia] Januvia 50 MG Oral Tablet Januvia 50 MG Oral Tablet 06/22/2020 12:00:00 AM EDT [facility] ferrous sulfate 325 MG Oral Tablet ferrous sulfate 325 (65 FE) MG tablet ferrous sulfate 325 (65 FE) MG tablet 06/22/2020 12:00:00 AM EDT 1 {tbl} Or al active Take 1 tablet by mouth daily [facility] Lisinopril 10 MG Oral Tablet lisinopril (PRINIVIL,ZEST RIL) 10 MG tablet lisinopril (PRINIVIL,ZESTRIL) 10 MG tablet 06/22/2020 12:00:00 AM EDT active [facility] Hydrochlorothiazide 12.5 MG Oral Capsule hydroCHLOROthiazide 12.5 MG Oral Capsule (MICROZIDE) hydroCHLOROthiazide 12.5 MG Oral Capsule (MICROZIDE) 06/20/2020 12:00:00 AM EDT active TAKE 1 CAPSULE BY MOUTH DAILY NEEDED FOR EDEMA [facility] Metformin hydrochloride 1000 MG Oral Tab let metFORMIN HCl 1000 MG Oral Tablet (GLUCOPHAGE) metFORMIN HCl 1000 MG Oral Tablet (GLUCOPHAGE) 12:00:00 AM EDT 1000 mg Oral active Take 1,000 mg by mouth Two Times Daily [facility] Hydrochlorothiazide 12.5 MG Oral Capsule hydrochlorothiazide (MICROZIDE) 12.5 MG capsule hydrochlorothiazide (MICROZIDE) 12.5 MG capsule 2020 12:00:00 AM EDT active TAKE 1 CAPSULE BY MOUTH DAILY NEEDED FOR EDEMA [facility] pregabalin 100 MG Oral Capsule Pregabalin 100 MG Oral Capsule (LYRICA) Pregabalin 100 MG Oral Capsule (LYRICA) 06/09/2020 12:00:00 AM EDT 100 mg Oral active Take 100 mg by mouth Two Times Daily [facility] pregabalin 100 MG Oral Capsule pregabalin (LYRICA) 100 MG capsule pregabalin (LYRICA) 100 MG capsule 06/09/2020 12:00:00 AM EDT 100 mg Oral active Take 100 mg by mouth [facility] Glyburide 5 MG Oral Tablet glyBURIDE 5 MG Oral Tablet (DIABETA) glyBURIDE 5 MG Oral Tablet (DIABETA) 05/25/2020 12:00:00 AM EDT active TAKE 2 TABLETS BY MOUTH IN THE AM AND 1 TABLET IN THE PM. [facility] Omeprazole 20 MG Delayed Release Oral Ca psule Omeprazole 20 MG Oral Capsule Delayed Release (PriLOSEC) Omeprazole 20 MG Oral Capsule Delayed Re lease (PriLOSEC) 05/25/2020 12:00:00 AM EDT Oral active Take by mouth daily [facility] Omeprazole 20 MG Delayed Release Oral Ca psule omeprazole (PriLOSEC) 20 MG capsule omeprazole (PriLOSEC) 20 MG capsule 05/25/2020 12:00:00 AM EDT Oral active Take by mouth [facility] Naproxen 500 MG Oral Tablet Naproxen 500 MG Oral Table t (NAPROSYN) Naproxen 500 MG Oral Tablet (NAPROSYN) 05/23/2020 12:00:00 AM EST 500 mg Oral active Take 500 mg by mouth Two times daily with meals [facility] pregabalin 100 MG Oral Capsule Pregabalin 04/30/2020 12:00:00 AM EST ORAL active [facility] ([facility]) pregabalin 25 MG Oral Capsule Pregabalin 03/23/2020 12:00:00 AM EST ORAL completed [facility] ([facility]) pregabalin 50 MG Oral Capsule Pregabalin 03/23/2020 12:00:00 AM EST ORAL completed [facility] ([facility]) Sertraline 100 MG Oral Tablet sertraline 100 mg tablet sertr romeo 100 mg tablet completed sertraline 100 MG Oral Tablet ERIE ([facility]) Sertraline 100 MG Oral Tablet sertraline 100 mg tablet TAKE 1 TABLET BY MOUTH DAILY sertraline 100 mg tablet TAKE 1 TABLET BY MOUTH DAILY completed sertraline 100 MG Oral Tablet AT [facility] ([facility]) 0.5 ML dulaglutide 1.5 MG/ML Auto-Inject or [Trulicity] Trulicity 0.75 mg/0.5 mL subcutaneous pen injector INJ 0.75MG SC WEEKLY Trulicity 0.75 mg/0.5 mL subcutaneous pen injector INJ 0.75MG SC WEEKLY completed 0.5 ML dulaglutide 1.5 MG/ML Auto-Injector [Trulicity] ETHAN ([facility]) meloxicam 15 MG Oral Tablet meloxicam 15 mg tablet TK 1 T PO D meloxicam 15 mg tablet TK 1 T PO D completed edgar oxicam 15 MG Oral Tablet ETHAN ([facility]) Sertraline 50 MG Oral Tablet sertraline 50 mg tablet T K 1 T PO D IN THE MORNING sertraline 50 mg tablet TK 1 T PO D IN THE MORNING completed sertraline 50 MG Oral Tablet ETHAN ([facility]) Albuterol 0.83 MG/ML Inhalant Solution a lbuterol sulfate 2.5 mg/3 mL (0.083 %) solution for nebulization VVN Q 4 TO 6 H PRF WHZ OR SOB albuterol sulfate 2.5 mg/3 mL (0.083 %) solution for nebulization VVN Q 4 TO 6 H PRF WHZ OR SOB completed albuterol 0.83 MG/ML Inhalation Solution ERIE ([facility]) Lactulose 667 MG/ML Oral Solution [Enulo se] Enulose 10 gram/15 mL oral solution TK 30ML PO BID FOR CONSTIPATION Enulose 10 gram/15 mL oral solution TK 3 0ML PO BID FOR CONSTIPATION completed lactulose 667 MG/ML Oral Solution [Enulose] ERIE ([facility]) cefdinir 300 MG Oral Capsule cefdinir 30 0 mg capsule TAKE 1 CAPSULE BY MOUTH EVERY 12 HOURS FOR 10 DAYS cefdinir 300 mg capsule TAKE 1 CAPSULE B Y MOUTH EVERY 12 HOURS FOR 10 DAYS completed cefdinir 300 MG Oral Capsule ERIE ([facility]) Levofloxacin 250 MG Oral Tablet levofloxacin 250 mg ta blet levofloxacin 250 mg tablet completed levofloxacin 25 0 MG Oral Tablet ERIE ([facility]) meloxicam 15 MG Oral Tablet meloxicam 15 mg tablet TK 1 T PO D meloxicam 15 mg tablet TK 1 T PO D completed edgar oxicam 15 MG Oral Tablet ERIE ([facility]) gabapentin 600 MG Oral Tablet gabapentin 600 mg tablet TK 1 T PO TID gabapentin 600 mg tablet TK 1 T PO TID completed gabapentin 600 MG Oral Tablet ERIE ([facility]) sitagliptin 50 MG Oral Tablet [Januvia] Januvia 50 mg tablet Januvia 50 mg tablet completed sitagliptin 50 MG Oral Tablet [Januvia] ERIE ([facility]) Metoclopramide 10 MG Oral Tablet metoclo pramide 10 mg tablet TK 1 T PO Q 6 H PRN N metoclopramide 10 mg tablet TK 1 T PO Q 6 H PRN N completed metoclopramide 10 MG Oral Tablet ERIE ([facility]) cefdinir 300 MG Oral Capsule cefdinir 30 0 mg capsule TAKE 1 CAPSULE BY MOUTH EVERY 12 HOURS FOR 10 DAYS cefdinir 300 mg capsule TAKE 1 CAPSULE B Y MOUTH EVERY 12 HOURS FOR 10 DAYS completed cefdinir 300 MG Oral Capsule ERIE ([facility]) meloxicam 15 MG Oral Tablet meloxicam 15 mg tablet TK 1 T PO D meloxicam 15 mg tablet TK 1 T PO D completed edgar oxicam 15 MG Oral Tablet ERIE ([facility]) Omeprazole 40 MG Delayed Release Oral Ca psule omeprazole 40 mg capsule,delayed release TK ONE C PO QD omeprazole 40 mg capsule,delayed release TK ONE C PO Q D completed omeprazole 40 MG Delayed Release Oral Capsule ERIE ([facility]) Ciprofloxacin 250 MG Oral Tablet ciprofl oxacin 250 mg tablet TK 1 T PO D FOR 5 DAYS FOR SYMPTOMS OF URINARY TRACT INFECTION ciprofloxacin 250 mg tablet TK 1 T PO D FOR 5 DAYS FOR SYMPTOMS OF URINARY TRACT INFECTION completed ciprofloxacin 250 MG Oral Tablet ERIE ([facility]) Fluoxetine 10 MG Oral Capsule fluoxetine 10 mg capsule TK 1 C PO QD fluoxetine 10 mg capsule TK 1 C PO QD completed fluoxetine 10 MG Oral Capsule ERIE ([facility]) Sertraline 25 MG Oral Tablet sertraline 25 mg tablet T K 1 T PO QD sertraline 25 mg tablet TK 1 T PO QD completed sertraline 25 MG Oral Tablet ERIE ([facility]) Levofloxacin 250 MG Oral Tablet levofloxacin 250 mg ta blet levofloxacin 250 mg tablet completed levofloxacin 25 0 MG Oral Tablet ERIE ([facility]) Sertraline 50 MG Oral Tablet sertraline 50 mg tablet T K 1 T PO D IN THE MORNING sertraline 50 mg tablet TK 1 T PO D IN THE MORNING completed sertraline 50 MG Oral Tablet ERIE ([facility]) Ciprofloxacin 3 MG/ML Ophthalmic Solutio n ciprofloxacin 0.3 % eye drops INSTILL 1 DROP INTO AFFECTED EYE/S 2 TIMES PER DAY FOR 5 DAYS ciprofloxacin 0.3 % eye drops INSTILL 1 DROP INTO AFFECTED EYE/S 2 TIMES PER DAY FOR 5 DAYS completed ciprofloxacin 3 MG/ML Ophthalmic Solution ERIE ([facility]) NITROFURANTOIN, MACROCRYSTALS 25 MG / Ni trofurantoin, Monohydrate 75 MG Oral Capsule nitrofurantoin monohydrate/macrocrystals 100 mg capsule TK 1 C PO BID nitrofurantoin monohydrate/macrocrystals 100 mg capsule TK 1 C PO BID completed nitrofurantoin, macrocrystals 25 MG / nitrofurantoin, monohydrate 75 MG Oral Capsule ETHAN ([facility]) Metronidazole 0.0075 MG/MG Vaginal Gel m etronidazole 0.75 % vaginal gel INSERT 1 APPLICATION VAGINALLY AT BEDTIME FOR 7 DAYS metronidazole 0.75 % vaginal gel INSERT 1 APPLICATION VAGINALLY AT BEDTIME FOR 7 DAYS completed metronidazole 0.0075 MG/MG Vaginal Gel ERIE ([facility]) Sulfamethoxazole 800 MG / Trimethoprim 1 60 MG Oral Tablet sulfamethoxazole 800 mg-trimethoprim 160 mg tablet TAKE 1 TABLET BY MOUTH TWICE A DAY FOR 7 DAYS sulfamethoxazole 800 mg-trimethoprim 160 mg tablet TAKE 1 TABLET BY MOUTH TWICE A DAY FOR 7 DAYS completed sulfamethoxazole 800 MG / trimethoprim 160 MG Oral Tablet ERIE ([facility]) Sertraline 100 MG Oral Tablet sertraline 100 mg tablet TAKE 1 TABLET BY MOUTH DAILY sertraline 100 mg tablet TAKE 1 TABLET BY MOUTH DAILY completed sertraline 100 MG Oral Tablet AT [facility] ([facility]) albuterol sulfate HFA 90 mcg/actuation a erosol inhaler INHALE 2 PUFFS BY MOUTH EVERY 4 HOURS NEEDED FOR WHEEZING OR SHORTNESS OF BREATH [id number] completed [id number] 200 ACTUAT albuterol 0.09 MG/ACTUAT Metered Dose Inhaler ERIE ([facility]) cefdinir 300 MG Oral Capsule cefdinir 30 0 mg capsule TAKE 1 CAPSULE BY MOUTH EVERY 12 HOURS FOR 10 DAYS cefdinir 300 mg capsule TAKE 1 CAPSULE B Y MOUTH EVERY 12 HOURS FOR 10 DAYS completed cefdinir 300 MG Oral Capsule ERIE ([facility]) NITROFURANTOIN, MACROCRYSTALS 25 MG / Ni trofurantoin, Monohydrate 75 MG Oral Capsule nitrofurantoin monohydrate/macrocrystals 100 mg capsule TK 1 C PO BID nitrofurantoin monohydrate/macrocrystals 100 mg capsule TK 1 C PO BID completed nitrofurantoin, macrocrystals 25 MG / nitrofurantoin, monohydrate 75 MG Oral Capsule ETHAN ([facility]) 0.5 ML dulaglutide 1.5 MG/ML Auto-Inject or [Trulicity] Trulicity 0.75 mg/0.5 mL subcutaneous pen injector INJ 0.75MG SC WEEKLY Trulicity 0.75 mg/0.5 mL subcutaneous pen injector INJ 0.75MG SC WEEKLY completed 0.5 ML dulaglutide 1.5 MG/ML Auto-Injector [Trulicity] ERIE ([facility]) Omeprazole 40 MG Delayed Release Oral Ca psule omeprazole 40 mg capsule,delayed release TK ONE C PO QD omeprazole 40 mg capsule,delayed release TK ONE C PO Q D completed omeprazole 40 MG Delayed Release Oral Capsule ERIE ([facility]) Levofloxacin 500 MG Oral Tablet levoflox acin 500 mg tablet TAKE 1 TABLET BY BY MOUTH ONCE A DAY FOR 10 DAYS levofloxacin 500 mg tablet TAKE 1 TABLET BY BY MOUTH ONCE A DAY FOR 10 DAYS completed levofloxacin 500 MG Oral Tablet ERIE ([facility]) Metronidazole 500 MG Oral Tablet metroni dazole 500 mg tablet TK 1 T PO TID FOR 7 DAYS metronidazole 500 mg tablet TK 1 T PO TID FOR 7 DAYS completed metronidazole 500 MG Oral Tablet ERIE ([facility]) gabapentin 600 MG Oral Tablet gabapentin 600 mg tablet TK 1 T PO TID gabapentin 600 mg tablet TK 1 T PO TID completed gabapentin 600 MG Oral Tablet ERIE ([facility]) Sertraline 100 MG Oral Tablet sertraline 100 mg tablet TAKE 1 TABLET BY MOUTH DAILY sertraline 100 mg tablet TAKE 1 TABLET BY MOUTH DAILY completed sertraline 100 MG Oral Tablet AT [facility]) Sertraline 100 MG Oral Tablet sertraline 100 mg tablet TAKE 1 TABLET BY MOUTH DAILY sertraline 100 mg tablet TAKE 1 TABLET BY MOUTH DAILY completed sertraline 100 MG Oral Tablet AT [facility]) Levofloxacin 250 MG Oral Tablet levofloxacin 250 mg ta blet levofloxacin 250 mg tablet completed levofloxacin 25 0 MG Oral Tablet ERIE ([facility]) Omeprazole 40 MG Delayed Release Oral Ca psule omeprazole 40 mg capsule,delayed release TK ONE C PO QD omeprazole 40 mg capsule,delayed release TK ONE C PO Q D completed omeprazole 40 MG Delayed Release Oral Capsule ERIE ([facility]) Metronidazole 0.0075 MG/MG Vaginal Gel m etronidazole 0.75 % vaginal gel INSERT 1 APPLICATION VAGINALLY AT BEDTIME FOR 7 DAYS metronidazole 0.75 % vaginal gel INSERT 1 APPLICATION VAGINALLY AT BEDTIME FOR 7 DAYS completed metronidazole 0.0075 MG/MG Vaginal Gel [facility]) Lisinopril 10 MG Oral Tablet lisinopril 10 mg tablet lisinopril 10 mg tablet completed lisinopril 10 MG Oral Tablet ERIE ([facility]) Lactulose 667 MG/ML Oral Solution [Enulo se] Enulose 10 gram/15 mL oral solution TK 30ML PO BID FOR CONSTIPATION Enulose 10 gram/15 mL oral solution TK 3 0ML PO BID FOR CONSTIPATION completed lactulose 667 MG/ML Oral Solution [Enulose] ERIE ([facility]) albuterol sulfate HFA 90 mcg/actuation a erosol inhaler INHALE 2 PUFFS BY MOUTH EVERY 4 HOURS NEEDED FOR WHEEZING OR SHORTNESS OF BREATH [id number] completed [id number] 200 ACTUAT albuterol 0.09 MG/ACTUAT Metered Dose Inhaler ERIE ([facility]) albuterol sulfate HFA 90 mcg/actuation a erosol inhaler INHALE 2 PUFFS BY MOUTH EVERY 4 HOURS NEEDED FOR WHEEZING OR SHORTNESS OF BREATH [id number] completed [id number] 200 ACTUAT albuterol 0.09 MG/ACTUAT Metered Dose Inhaler ERIE ([facility]) Levofloxacin 250 MG Oral Tablet levofloxacin 250 mg ta blet levofloxacin 250 mg tablet completed levofloxacin 25 0 MG Oral Tablet ERIE ([facility]) Sertraline 50 MG Oral Tablet sertraline 50 mg tablet T K 1 T PO D IN THE MORNING sertraline 50 mg tablet TK 1 T PO D IN THE MORNING completed sertraline 50 MG Oral Tablet ERIE ([facility]) Metronidazole 500 MG Oral Tablet metroni dazole 500 mg tablet TK 1 T PO TID FOR 7 DAYS metronidazole 500 mg tablet TK 1 T PO TID FOR 7 DAYS completed metronidazole 500 MG Oral Tablet ERIE ([facility]) Metoclopramide 10 MG Oral Tablet metoclo pramide 10 mg tablet TK 1 T PO Q 6 H PRN N metoclopramide 10 mg tablet TK 1 T PO Q 6 H PRN N completed metoclopramide 10 MG Oral Tablet ERIE ([facility]) Ciprofloxacin 3 MG/ML Ophthalmic Solutio n ciprofloxacin 0.3 % eye drops INSTILL 1 DROP INTO AFFECTED EYE/S 2 TIMES PER DAY FOR 5 DAYS ciprofloxacin 0.3 % eye drops INSTILL 1 DROP INTO AFFECTED EYE/S 2 TIMES PER DAY FOR 5 DAYS completed ciprofloxacin 3 MG/ML Ophthalmic Solution ERIE ([facility]) silver sulfadiazine 10 MG/ML Topical Cre am [SSD] SSD 1 % topical cream BRIANA TOPICALLY AA BID SSD 1 % topical cream BRIANA TOPICALLY AA BID completed silver sulfadiazine 10 MG/ML Top ical Cream [SSD] ERIE ([facility]) Simethicone 180 MG Oral Capsule Gas Reli ef (simethicone) 180 mg capsule TK ONE C PO TID Gas Relief (simethicone) 180 mg capsule TK ONE C PO TID completed simethicone 180 MG Oral Capsule ERIE ([facility]) Cephalexin 500 MG Oral Capsule cephalexin 500 mg capsu le cephalexin 500 mg capsule completed cephalexin 500 MG Oral Capsule ERIE ([facility]) Metronidazole 500 MG Oral Tablet metroni dazole 500 mg tablet TK 1 T PO TID FOR 7 DAYS metronidazole 500 mg tablet TK 1 T PO TID FOR 7 DAYS completed metronidazole 500 MG Oral Tablet ERIE ([facility]) Metoclopramide 10 MG Oral Tablet metoclo pramide 10 mg tablet TK 1 T PO Q 6 H PRN N metoclopramide 10 mg tablet TK 1 T PO Q 6 H PRN N completed metoclopramide 10 MG Oral Tablet ERIE ([facility]) Dicyclomine Hydrochloride 10 MG Oral Cap zahra dicyclomine 10 mg capsule TK 1 C PO Q 6 H PRF IRRITABLE BOWEL SYNDROME dicyclomine 10 mg capsule TK 1 C PO Q 6 H PRF IRRITABLE BOWEL SYNDROME completed dicyclomine hydrochloride 10 MG Oral Capsule ETHAN ([facility]) Lactulose 667 MG/ML Oral Solution [Enulo se] Enulose 10 gram/15 mL oral solution TK 30ML PO BID FOR CONSTIPATION Enulose 10 gram/15 mL oral solution TK 3 0ML PO BID FOR CONSTIPATION completed lactulose 667 MG/ML Oral Solution [Enulose] ERIE ([facility]) gabapentin 600 MG Oral Tablet gabapentin 600 mg tablet TK 1 T PO TID gabapentin 600 mg tablet TK 1 T PO TID completed gabapentin 600 MG Oral Tablet ERIE ([facility]) Simethicone 180 MG Oral Capsule Gas Reli ef (simethicone) 180 mg capsule TK ONE C PO TID Gas Relief (simethicone) 180 mg capsule TK ONE C PO TID completed simethicone 180 MG Oral Capsule ETHAN ([facility]) Sertraline 50 MG Oral Tablet sertraline 50 mg tablet T K 1 T PO D IN THE MORNING sertraline 50 mg tablet TK 1 T PO D IN THE MORNING completed sertraline 50 MG Oral Tablet ETHAN ([facility]) Lactulose 667 MG/ML Oral Solution [Enulo se] Enulose 10 gram/15 mL oral solution TK 30ML PO BID FOR CONSTIPATION Enulose 10 gram/15 mL oral solution TK 3 0ML PO BID FOR CONSTIPATION completed lactulose 667 MG/ML Oral Solution [Enulose] ETHAN ([facility]) Sertraline 25 MG Oral Tablet sertraline 25 mg tablet T K 1 T PO QD sertraline 25 mg tablet TK 1 T PO QD completed sertraline 25 MG Oral Tablet ETHAN ([facility]) gabapentin 600 MG Oral Tablet gabapentin 600 mg tablet TK 1 T PO TID gabapentin 600 mg tablet TK 1 T PO TID completed gabapentin 600 MG Oral Tablet ETHAN ([facility]) Lisinopril 5 MG Oral Tablet lisinopril 5 mg tablet TAKE 2 TABLETS BY MOUTH DAILY lisinopril 5 mg tablet TAKE 2 TABLETS BY MOUTH DAILY completed lisinopril 5 MG Oral Tablet ETHAN ([facility]) Simethicone 180 MG Oral Capsule Gas Reli ef (simethicone) 180 mg capsule TK ONE C PO TID Gas Relief (simethicone) 180 mg capsule TK ONE C PO TID completed simethicone 180 MG Oral Capsule ETHAN ([facility]) NITROFURANTOIN, MACROCRYSTALS 25 MG / Ni trofurantoin, Monohydrate 75 MG Oral Capsule nitrofurantoin monohydrate/macrocrystals 100 mg capsule TK 1 C PO BID nitrofurantoin monohydrate/macrocrystals 100 mg capsule TK 1 C PO BID completed nitrofurantoin, macrocrystals 25 MG / nitrofurantoin, monohydrate 75 MG Oral Capsule ETHAN ([facility]) gabapentin 600 MG Oral Tablet gabapentin 600 mg tablet TK 1 T PO TID gabapentin 600 mg tablet TK 1 T PO TID completed gabapentin 600 MG Oral Tablet ETHAN ([facility]) Omeprazole 40 MG Delayed Release Oral Ca psule omeprazole 40 mg capsule,delayed release TK ONE C PO QD omeprazole 40 mg capsule,delayed release TK ONE C PO Q D completed omeprazole 40 MG Delayed Release Oral Capsule ETHAN ([facility]) 0.5 ML dulaglutide 1.5 MG/ML Auto-Inject or [Trulicity] Trulicity 0.75 mg/0.5 mL subcutaneous pen injector INJ 0.75MG SC WEEKLY Trulicity 0.75 mg/0.5 mL subcutaneous pen injector INJ 0.75MG SC WEEKLY completed 0.5 ML dulaglutide 1.5 MG/ML Auto-Injector [Trulicity] ETHAN ([facility]) meloxicam 15 MG Oral Tablet meloxicam 15 mg tablet TK 1 T PO D meloxicam 15 mg tablet TK 1 T PO D completed edgar oxicam 15 MG Oral Tablet ETHAN ([facility]) gabapentin 600 MG Oral Tablet gabapentin 600 mg tablet TK 1 T PO TID gabapentin 600 mg tablet TK 1 T PO TID completed gabapentin 600 MG Oral Tablet ETHAN ([facility]) Lisinopril 5 MG Oral Tablet lisinopril 5 mg tablet TAKE 2 TABLETS BY MOUTH DAILY lisinopril 5 mg tablet TAKE 2 TABLETS BY MOUTH DAILY completed lisinopril 5 MG Oral Tablet ETHAN ([facility]) Lisinopril 5 MG Oral Tablet lisinopril 5 mg tablet TK 2 TS PO D lisinopril 5 mg tablet TK 2 TS PO D completed li sinopril 5 MG Oral Tablet ETHAN ([facility]) Sertraline 50 MG Oral Tablet sertraline 50 mg tablet T K 1 T PO D IN THE MORNING sertraline 50 mg tablet TK 1 T PO D IN THE MORNING completed sertraline 50 MG Oral Tablet ETHAN ([facility]) albuterol sulfate HFA 90 mcg/actuation a erosol inhaler INHALE 2 PUFFS BY MOUTH EVERY 4 HOURS NEEDED FOR WHEEZING OR SHORTNESS OF BREATH [id number] completed [id number] 200 ACTUAT albuterol 0.09 MG/ACTUAT Metered Dose Inhaler ETHAN ([facility]) Acetaminophen 500 MG Oral Tablet acetami nophen 500 mg tablet TAKE 2 TABS BY MOUTH EVERY 6 HOURS NEEDED FOR PAIN & FEVER. acetaminophen 500 mg tablet TAKE 2 TABS BY MOUTH EVERY 6 HOURS NEEDED FOR PAIN & FEVER. completed acetaminophen 500 MG Oral Tablet ERIE ([facility]) gabapentin 800 MG Oral Tablet gabapentin 800 mg tablet TAKE 1 TABLET BY MOUTH THREE TIMES DAILY gabapentin 800 mg tablet TAKE 1 TABLET B Y MOUTH THREE TIMES DAILY completed gabapentin 800 M G Oral Tablet ERIE ([facility]) Albuterol 0.83 MG/ML Inhalant Solution a lbuterol sulfate 2.5 mg/3 mL (0.083 %) solution for nebulization VVN Q 4 TO 6 H PRF WHZ OR SOB albuterol sulfate 2.5 mg/3 mL (0.083 %) solution for nebulization VVN Q 4 TO 6 H PRF WHZ OR SOB completed albuterol 0.83 MG/ML Inhalation Solution ERIE ([facility]) Simethicone 180 MG Oral Capsule Gas Reli ef (simethicone) 180 mg capsule TK ONE C PO TID Gas Relief (simethicone) 180 mg capsule TK ONE C PO TID completed simethicone 180 MG Oral Capsule ERIE ([facility]) Metoclopramide 10 MG Oral Tablet metoclo pramide 10 mg tablet TK 1 T PO Q 6 H PRN N metoclopramide 10 mg tablet TK 1 T PO Q 6 H PRN N completed metoclopramide 10 MG Oral Tablet ERIE ([facility]) Ciprofloxacin 250 MG Oral Tablet ciprofl oxacin 250 mg tablet TK 1 T PO D FOR 5 DAYS FOR SYMPTOMS OF URINARY TRACT INFECTION ciprofloxacin 250 mg tablet TK 1 T PO D FOR 5 DAYS FOR SYMPTOMS OF URINARY TRACT INFECTION completed ciprofloxacin 250 MG Oral Tablet ERIE ([facility]) Metoclopramide 10 MG Oral Tablet metoclo pramide [...] DAYS completed metronidazole 0.0075 MG/MG Vaginal Gel ERIE ([facility]) Sulfamethoxazole 800 MG / Trimethoprim 1 60 MG Oral Tablet sulfamethoxazole 800 mg-trimethoprim 160 mg tablet TAKE 1 TABLET BY MOUTH TWICE A DAY FOR 7 DAYS sulfamethoxazole 800 mg-trimethoprim 160 mg tablet TAKE 1 TABLET BY MOUTH TWICE A DAY FOR 7 DAYS completed sulfamethoxazole 800 MG / trimethoprim 160 MG Oral Tablet ETHAN ([facility]) meloxicam 15 MG Oral Tablet meloxicam 15 mg tablet TK 1 T PO D meloxicam 15 mg tablet TK 1 T PO D completed edgar oxicam 15 MG Oral Tablet ETHAN ([facility]) meloxicam 15 MG Oral Tablet meloxicam 15 mg tablet TK 1 T PO D meloxicam 15 mg tablet TK 1 T PO D completed edgar oxicam 15 MG Oral Tablet ETHAN ([facility]) Fluoxetine 10 MG Oral Capsule fluoxetine 10 mg capsule TK 1 C PO QD fluoxetine 10 mg capsule TK 1 C PO QD completed fluoxetine 10 MG Oral Capsule ETHAN ([facility]) 0.5 ML dulaglutide 3 MG/ML Auto-Injector [Trulicity] Trulicity 1.5 mg/0.5 mL subcutaneous pen injector INJECT SQ ONCE WEEKLY Trulicity 1.5 mg/0.5 mL subcutaneous pen injector INJECT SQ ONCE WEEKLY completed 0.5 ML dulaglutide 3 MG/ML Auto-Injector [Trulicity] ERIE ([facility]) Glyburide 5 MG Oral Tablet glyburide 5 mg tablet glyburide 5 mg tablet completed glyburide 5 MG Oral Table t ETHAN ([facility]) gabapentin 600 MG Oral Tablet gabapentin 600 mg tablet TK 1 T PO TID gabapentin 600 mg tablet TK 1 T PO TID completed gabapentin 600 MG Oral Tablet ETHAN ([facility]) Fluoxetine 10 MG Oral Capsule fluoxetine 10 mg capsule TK 1 C PO QD fluoxetine 10 mg capsule TK 1 C PO QD completed fluoxetine 10 MG Oral Capsule ETHAN ([facility]) Sertraline 25 MG Oral Tablet sertraline 25 mg tablet T K 1 T PO QD sertraline 25 mg tablet TK 1 T PO QD completed sertraline 25 MG Oral Tablet ETHAN ([facility]) Sertraline 50 MG Oral Tablet sertraline 50 mg tablet T K 1 T PO D IN THE MORNING sertraline 50 mg tablet TK 1 T PO D IN THE MORNING completed sertraline 50 MG Oral Tablet ETHAN ([facility]) Metronidazole 0.0075 MG/MG Vaginal Gel m etronidazole 0.75 % vaginal gel INSERT 1 APPLICATION VAGINALLY AT BEDTIME FOR 7 DAYS metronidazole 0.75 % vaginal gel INSERT 1 APPLICATION VAGINALLY AT BEDTIME FOR 7 DAYS completed metronidazole 0.0075 MG/MG Vaginal Gel ETHAN ([facility]) Lactulose 667 MG/ML Oral Solution [Enulo se] Enulose 10 gram/15 mL oral solution TK 30ML PO BID FOR CONSTIPATION Enulose 10 gram/15 mL oral solution TK 3 0ML PO BID FOR CONSTIPATION completed lactulose 667 MG/ML Oral Solution [Enulose] ETHAN ([facility]) Fluoxetine 10 MG Oral Capsule fluoxetine 10 mg capsule TK 1 C PO QD fluoxetine 10 mg capsule TK 1 C PO QD completed fluoxetine 10 MG Oral Capsule ETHAN ([facility]) Phenazopyridine hydrochloride 100 MG Ora l Tablet phenazopyridine 100 mg tablet TAKE 1 TABLET BY MOUTH 3 TIMES PER DAY FOR 2 DAYS phenazopyridine 100 mg tablet TAKE 1 TABLET BY MOUTH 3 TIMES PER DAY FOR 2 DAYS completed phenazopyridine hydrochloride 100 MG Oral Tablet ETHAN ([facility]) Metronidazole 500 MG Oral Tablet metroni dazole 500 mg tablet TK 1 T PO TID FOR 7 DAYS metronidazole 500 mg tablet TK 1 T PO TID FOR 7 DAYS completed metronidazole 500 MG Oral Tablet ETHAN ([facility]) gabapentin 600 MG Oral Tablet gabapentin 600 mg tablet TK 1 T PO TID gabapentin 600 mg tablet TK 1 T PO TID completed gabapentin 600 MG Oral Tablet ETHAN ([facility]) meloxicam 15 MG Oral Tablet meloxicam 15 mg tablet TK 1 T PO D meloxicam 15 mg tablet TK 1 T PO D completed edgar oxicam 15 MG Oral Tablet ETHAN ([facility]) Ciprofloxacin 250 MG Oral Tablet ciprofl oxacin 250 mg tablet TK 1 T PO D FOR 5 DAYS FOR SYMPTOMS OF URINARY TRACT INFECTION ciprofloxacin 250 mg tablet TK 1 T PO D FOR 5 DAYS FOR SYMPTOMS OF URINARY TRACT INFECTION completed ciprofloxacin 250 MG Oral Tablet ETHAN ([facility]) Acetaminophen 500 MG Oral Tablet acetami nophen 500 mg tablet TAKE 2 TABS BY MOUTH EVERY 6 HOURS NEEDED FOR PAIN & FEVER. acetaminophen 500 mg tablet TAKE 2 TABS BY MOUTH EVERY 6 HOURS NEEDED FOR PAIN & FEVER. completed acetaminophen 500 MG Oral Tablet ETHAN ([facility]) Metoclopramide 10 MG Oral Tablet metoclo pramide 10 mg tablet TK 1 T PO Q 6 H PRN N metoclopramide 10 mg tablet TK 1 T PO Q 6 H PRN N completed metoclopramide 10 MG Oral Tablet ETHAN ([facility]) Metronidazole 500 MG Oral Tablet metroni dazole 500 mg tablet TK 1 T PO TID FOR 7 DAYS metronidazole 500 mg tablet TK 1 T PO TID FOR 7 DAYS completed metronidazole 500 MG Oral Tablet ETHAN ([facility]) meloxicam 15 MG Oral Tablet meloxicam 15 mg tablet TK 1 T PO D meloxicam 15 mg tablet TK 1 T PO D completed edgar oxicam 15 MG Oral Tablet ERIE ([facility]) silver sulfadiazine 10 MG/ML Topical Cre am [SSD] SSD 1 % topical cream BRIANA TOPICALLY AA BID SSD 1 % topical cream BRIANA TOPICALLY AA BID completed silver sulfadiazine 10 MG/ML Top ical Cream [SSD] ERIE ([facility]) Metronidazole 0.0075 MG/MG Vaginal Gel m etronidazole 0.75 % vaginal gel INSERT 1 APPLICATION VAGINALLY AT BEDTIME FOR 7 DAYS metronidazole 0.75 % vaginal gel INSERT 1 APPLICATION VAGINALLY AT BEDTIME FOR 7 DAYS completed metronidazole 0.0075 MG/MG Vaginal Gel ERIE ([facility]) Ciprofloxacin 250 MG Oral Tablet ciprofl oxacin 250 mg tablet TK 1 T PO D FOR 5 DAYS FOR SYMPTOMS OF URINARY TRACT INFECTION ciprofloxacin 250 mg tablet TK 1 T PO D FOR 5 DAYS FOR SYMPTOMS OF URINARY TRACT INFECTION completed ciprofloxacin 250 MG Oral Tablet ETHAN ([facility]) Metronidazole 500 MG Oral Tablet metroni dazole 500 mg tablet TK 1 T PO TID FOR 7 DAYS metronidazole 500 mg tablet TK 1 T PO TID FOR 7 DAYS completed metronidazole 500 MG Oral Tablet ERIE ([facility]) Lisinopril 5 MG Oral Tablet lisinopril 5 mg tablet TAKE 2 TABLETS BY MOUTH DAILY lisinopril 5 mg tablet TAKE 2 TABLETS BY MOUTH DAILY completed lisinopril 5 MG Oral Tablet ETHAN ([facility]) Sertraline 100 MG Oral Tablet sertraline 100 mg tablet TAKE 1 TABLET BY MOUTH DAILY sertraline 100 mg tablet TAKE 1 TABLET BY MOUTH DAILY completed sertraline 100 MG Oral Tablet AT [facility] ([facility]) Fluoxetine 10 MG Oral Capsule fluoxetine 10 mg capsule TK 1 C PO QD fluoxetine 10 mg capsule TK 1 C PO QD completed fluoxetine 10 MG Oral Capsule ETHAN ([facility]) Dicyclomine Hydrochloride 10 MG Oral Cap zahra dicyclomine 10 mg capsule TK 1 C PO Q 6 H PRF IRRITABLE BOWEL SYNDROME dicyclomine 10 mg capsule TK 1 C PO Q 6 H PRF IRRITABLE BOWEL SYNDROME completed dicyclomine hydrochloride 10 MG Oral Capsule ETHAN ([facility]) cefdinir 300 MG Oral Capsule cefdinir 30 0 mg capsule TAKE 1 CAPSULE BY MOUTH EVERY 12 HOURS FOR 10 DAYS cefdinir 300 mg capsule TAKE 1 CAPSULE B Y MOUTH EVERY 12 HOURS FOR 10 DAYS completed cefdinir 300 MG Oral Capsule ERIE ([facility]) albuterol sulfate HFA 90 mcg/actuation a erosol inhaler INHALE 2 PUFFS BY MOUTH EVERY 4 HOURS NEEDED FOR WHEEZING OR SHORTNESS OF BREATH [id number] completed [id number] 200 ACTUAT albuterol 0.09 MG/ACTUAT Metered Dose Inhaler ERIE ([facility]) Levofloxacin 250 MG Oral Tablet levofloxacin 250 mg ta blet levofloxacin 250 mg tablet completed levofloxacin 25 0 MG Oral Tablet ERIE ([facility]) Omeprazole 40 MG Delayed Release Oral Ca psule omeprazole 40 mg capsule,delayed release TK ONE C PO QD omeprazole 40 mg capsule,delayed release TK ONE C PO Q D completed omeprazole 40 MG Delayed Release Oral Capsule ERIE ([facility]) 0.5 ML dulaglutide 1.5 MG/ML Auto-Inject or [Trulicity] Trulicity 0.75 mg/0.5 mL subcutaneous pen injector INJ 0.75MG SC WEEKLY Trulicity 0.75 mg/0.5 mL subcutaneous pen injector INJ 0.75MG SC WEEKLY completed 0.5 ML dulaglutide 1.5 MG/ML Auto-Injector [Trulicity] ERIE ([facility]) cefdinir 300 MG Oral Capsule cefdinir 30 0 mg capsule TAKE 1 CAPSULE BY MOUTH EVERY 12 HOURS FOR 10 DAYS cefdinir 300 mg capsule TAKE 1 CAPSULE B Y MOUTH EVERY 12 HOURS FOR 10 DAYS completed cefdinir 300 MG Oral Capsule ETHAN ([facility]) gabapentin 800 MG Oral Tablet gabapentin 800 mg tablet TAKE 1 TABLET BY MOUTH THREE TIMES DAILY gabapentin 800 mg tablet TAKE 1 TABLET B Y MOUTH THREE TIMES DAILY completed gabapentin 800 M G Oral Tablet ETHAN ([facility]) NITROFURANTOIN, MACROCRYSTALS 25 MG / Ni trofurantoin, Monohydrate 75 MG Oral Capsule nitrofurantoin monohydrate/macrocrystals 100 mg capsule TK 1 C PO BID nitrofurantoin monohydrate/macrocrystals 100 mg capsule TK 1 C PO BID completed nitrofurantoin, macrocrystals 25 MG / nitrofurantoin, monohydrate 75 MG Oral Capsule ERIE ([facility]) Ciprofloxacin 250 MG Oral Tablet ciprofl oxacin 250 mg tablet TK 1 T PO D FOR 5 DAYS FOR SYMPTOMS OF URINARY TRACT INFECTION ciprofloxacin 250 mg tablet TK 1 T PO D FOR 5 DAYS FOR SYMPTOMS OF URINARY TRACT INFECTION completed ciprofloxacin 250 MG Oral Tablet ERIE ([facility]) Simethicone 180 MG Oral Capsule Gas Reli ef (simethicone) 180 mg capsule TK ONE C PO TID Gas Relief (simethicone) 180 mg capsule TK ONE C PO TID completed simethicone 180 MG Oral Capsule ERIE ([facility]) meloxicam 15 MG Oral Tablet meloxicam 15 mg tablet TK 1 T PO D meloxicam 15 mg tablet TK 1 T PO D completed edgar oxicam 15 MG Oral Tablet ERIE ([facility]) Simethicone 180 MG Oral Capsule Gas Reli ef (simethicone) 180 mg capsule TK ONE C PO TID Gas Relief (simethicone) 180 mg capsule TK ONE C PO TID completed simethicone 180 MG Oral Capsule ERIE ([facility]) Metoclopramide 10 MG Oral Tablet metoclo pramide 10 mg tablet TK 1 T PO Q 6 H PRN N metoclopramide 10 mg tablet TK 1 T PO Q 6 H PRN N completed metoclopramide 10 MG Oral Tablet ERIE ([facility]) Sertraline 25 MG Oral Tablet sertraline 25 mg tablet T K 1 T PO QD sertraline 25 mg tablet TK 1 T PO QD completed sertraline 25 MG Oral Tablet ETHAN ([facility]) albuterol sulfate HFA 90 mcg/actuation a erosol inhaler INHALE 2 PUFFS BY MOUTH EVERY 4 HOURS NEEDED FOR WHEEZING OR SHORTNESS OF BREATH [id number] completed [id number] 200 ACTUAT albuterol 0.09 MG/ACTUAT Metered Dose Inhaler ERIE ([facility]) Sertraline 50 MG Oral Tablet sertraline 50 mg tablet T K 1 T PO D IN THE MORNING sertraline 50 mg tablet TK 1 T PO D IN THE MORNING completed sertraline 50 MG Oral Tablet ERIE ([facility]) Albuterol 0.83 MG/ML Inhalant Solution a lbuterol sulfate 2.5 mg/3 mL (0.083 %) solution for nebulization VVN Q 4 TO 6 H PRF WHZ OR SOB albuterol sulfate 2.5 mg/3 mL (0.083 %) solution for nebulization VVN Q 4 TO 6 H PRF WHZ OR SOB completed albuterol 0.83 MG/ML Inhalation Solution ERIE ([facility]) Sertraline 25 MG Oral Tablet sertraline 25 mg tablet T K 1 T PO QD sertraline 25 mg tablet TK 1 T PO QD completed sertraline 25 MG Oral Tablet ERIE ([facility]) NITROFURANTOIN, MACROCRYSTALS 25 MG / Ni trofurantoin, Monohydrate 75 MG Oral Capsule nitrofurantoin monohydrate/macrocrystals 100 mg capsule TK 1 C PO BID nitrofurantoin monohydrate/macrocrystals 100 mg capsule TK 1 C PO BID completed nitrofurantoin, macrocrystals 25 MG / nitrofurantoin, monohydrate 75 MG Oral Capsule ERIE ([facility]) Ciprofloxacin 250 MG Oral Tablet ciprofl oxacin 250 mg tablet TK 1 T PO D FOR 5 DAYS FOR SYMPTOMS OF URINARY TRACT INFECTION ciprofloxacin 250 mg tablet TK 1 T PO D FOR 5 DAYS FOR SYMPTOMS OF URINARY TRACT INFECTION completed ciprofloxacin 250 MG Oral Tablet ERIE ([facility]) Metronidazole 0.0075 MG/MG Vaginal Gel m etronidazole 0.75 % vaginal gel INSERT 1 APPLICATION VAGINALLY AT BEDTIME FOR 7 DAYS metronidazole 0.75 % vaginal gel INSERT 1 APPLICATION VAGINALLY AT BEDTIME FOR 7 DAYS completed metronidazole 0.0075 MG/MG Vaginal Gel ERIE ([facility]) silver sulfadiazine 10 MG/ML Topical Cre am [SSD] SSD 1 % topical cream BRIANA TOPICALLY AA BID SSD 1 % topical cream BRIANA TOPICALLY AA BID completed silver sulfadiazine 10 MG/ML Top ical Cream [SSD] ETHAN ([facility]) gabapentin 800 MG Oral Tablet gabapentin 800 mg tablet TAKE 1 TABLET BY MOUTH THREE TIMES DAILY gabapentin 800 mg tablet TAKE 1 TABLET B Y MOUTH THREE TIMES DAILY completed gabapentin 800 M G Oral Tablet ETHAN ([facility]) gabapentin 800 MG Oral Tablet gabapentin 800 mg tablet TAKE 1 TABLET BY MOUTH THREE TIMES DAILY gabapentin 800 mg tablet TAKE 1 TABLET B Y MOUTH THREE TIMES DAILY completed gabapentin 800 M G Oral Tablet ERIE ([facility]) Lisinopril 5 MG Oral Tablet lisinopril 5 mg tablet TAKE 2 TABLETS BY MOUTH DAILY lisinopril 5 mg tablet TAKE 2 TABLETS BY MOUTH DAILY completed lisinopril 5 MG Oral Tablet ERIE ([facility]) Metronidazole 500 MG Oral Tablet metroni dazole 500 mg tablet TK 1 T PO TID FOR 7 DAYS metronidazole 500 mg tablet TK 1 T PO TID FOR 7 DAYS completed metronidazole 500 MG Oral Tablet ERIE ([facility]) Sertraline 50 MG Oral Tablet sertraline 50 mg tablet T K 1 T PO D IN THE MORNING sertraline 50 mg tablet TK 1 T PO D IN THE MORNING completed sertraline 50 MG Oral Tablet ERIE ([facility]) Dicyclomine Hydrochloride 10 MG Oral Cap zahra dicyclomine 10 mg capsule TK 1 C PO Q 6 H PRF IRRITABLE BOWEL SYNDROME dicyclomine 10 mg capsule TK 1 C PO Q 6 H PRF IRRITABLE BOWEL SYNDROME completed dicyclomine hydrochloride 10 MG Oral Capsule ETHAN ([facility]) Acetaminophen 500 MG Oral Tablet acetami nophen 500 mg tablet TAKE 2 TABS BY MOUTH EVERY 6 HOURS NEEDED FOR PAIN & FEVER. acetaminophen 500 mg tablet TAKE 2 TABS BY MOUTH EVERY 6 HOURS NEEDED FOR PAIN & FEVER. completed acetaminophen 500 MG Oral Tablet ERIE ([facility]) meloxicam 15 MG Oral Tablet meloxicam 15 mg tablet TK 1 T PO D meloxicam 15 mg tablet TK 1 T PO D completed edgar oxicam 15 MG Oral Tablet ETHAN ([facility]) NITROFURANTOIN, MACROCRYSTALS 25 MG / Ni trofurantoin, Monohydrate 75 MG Oral Capsule nitrofurantoin monohydrate/macrocrystals 100 mg capsule TK 1 C PO BID nitrofurantoin monohydrate/macrocrystals 100 mg capsule TK 1 C PO BID completed nitrofurantoin, macrocrystals 25 MG / nitrofurantoin, monohydrate 75 MG Oral Capsule ERIE ([facility]) Levofloxacin 250 MG Oral Tablet levofloxacin 250 mg ta blet levofloxacin 250 mg tablet completed levofloxacin 25 0 MG Oral Tablet ERIE ([facility]) Simethicone 180 MG Oral Capsule Gas Reli ef (simethicone) 180 mg capsule TK ONE C PO TID Gas Relief (simethicone) 180 mg capsule TK ONE C PO TID completed simethicone 180 MG Oral Capsule ERIE ([facility]) NITROFURANTOIN, MACROCRYSTALS 25 MG / Ni trofurantoin, Monohydrate 75 MG Oral Capsule nitrofurantoin monohydrate/macrocrystals 100 mg capsule TK 1 C PO BID nitrofurantoin monohydrate/macrocrystals 100 mg capsule TK 1 C PO BID completed nitrofurantoin, macrocrystals 25 MG / nitrofurantoin, monohydrate 75 MG Oral Capsule ERIE ([facility]) Sertraline 25 MG Oral Tablet sertraline 25 mg tablet T K 1 T PO QD sertraline 25 mg tablet TK 1 T PO QD completed sertraline 25 MG Oral Tablet ERIE ([facility]) Naproxen 500 MG Oral Tablet naproxen 500 mg tablet TAKE 1 TABLET BY MOUTH TWICE DAILY WITH MEALS naproxen 500 mg tablet TAKE 1 TABLET BY MOUTH TWICE DAILY WITH MEALS completed naproxen 500 MG Oral Tablet ERIE ([facility]) Sertraline 25 MG Oral Tablet sertraline 25 mg tablet T K 1 T PO QD sertraline 25 mg tablet TK 1 T PO QD completed sertraline 25 MG Oral Tablet ERIE ([facility]) Metronidazole 500 MG Oral Tablet metroni dazole 500 mg tablet TK 1 T PO TID FOR 7 DAYS metronidazole 500 mg tablet TK 1 T PO TID FOR 7 DAYS completed metronidazole 500 MG Oral Tablet ERIE ([facility]) Acetaminophen 500 MG Oral Tablet acetami nophen 500 mg tablet TAKE 2 TABS BY MOUTH EVERY 6 HOURS NEEDED FOR PAIN & FEVER. acetaminophen 500 mg tablet TAKE 2 TABS BY MOUTH EVERY 6 HOURS NEEDED FOR PAIN & FEVER. completed acetaminophen 500 MG Oral Tablet ETHAN ([facility]) Simethicone 180 MG Oral Capsule Gas Reli ef (simethicone) 180 mg capsule TK ONE C PO TID Gas Relief (simethicone) 180 mg capsule TK ONE C PO TID completed simethicone 180 MG Oral Capsule ERIE ([facility]) Lisinopril 5 MG Oral Tablet lisinopril 5 mg tablet TAKE 2 TABLETS BY MOUTH DAILY lisinopril 5 mg tablet TAKE 2 TABLETS BY MOUTH DAILY completed lisinopril 5 MG Oral Tablet ERIE ([facility]) cefdinir 300 MG Oral Capsule cefdinir 30 0 mg capsule TAKE 1 CAPSULE BY MOUTH EVERY 12 HOURS FOR 10 DAYS cefdinir 300 mg capsule TAKE 1 CAPSULE B Y MOUTH EVERY 12 HOURS FOR 10 DAYS completed cefdinir 300 MG Oral Capsule ERIE ([facility]) Fluconazole 150 MG Oral Tablet fluconazo le 150 mg tablet TAKE 1 TABLET BY MOUTH 1 TIME PER DAY FOR 1 DAY fluconazole 150 mg tablet TAKE 1 TABLET BY MOUTH 1 TIME PER DAY FOR 1 DAY completed flu conazole 150 MG Oral Tablet ERIE ([facility]) Metronidazole 0.0075 MG/MG Vaginal Gel m etronidazole 0.75 % vaginal gel INSERT 1 APPLICATION VAGINALLY AT BEDTIME FOR 7 DAYS metronidazole 0.75 % vaginal gel INSERT 1 APPLICATION VAGINALLY AT BEDTIME FOR 7 DAYS completed metronidazole 0.0075 MG/MG Vaginal Gel ERIE ([facility]) Sertraline 50 MG Oral Tablet sertraline 50 mg tablet T K 1 T PO D IN THE MORNING sertraline 50 mg tablet TK 1 T PO D IN THE MORNING completed sertraline 50 MG Oral Tablet ETHAN ([facility]) Clindamycin 300 MG Oral Capsule clindamycin HCl 300 mg capsule clindamycin HCl 300 mg capsule completed clindam ycin 300 MG Oral Capsule ERIE ([facility]) Sertraline 25 MG Oral Tablet sertraline 25 mg tablet T K 1 T PO QD sertraline 25 mg tablet TK 1 T PO QD completed sertraline 25 MG Oral Tablet ETHAN ([facility]) Ciprofloxacin 250 MG Oral Tablet ciprofl oxacin 250 mg tablet TK 1 T PO D FOR 5 DAYS FOR SYMPTOMS OF URINARY TRACT INFECTION ciprofloxacin 250 mg tablet TK 1 T PO D FOR 5 DAYS FOR SYMPTOMS OF URINARY TRACT INFECTION completed ciprofloxacin 250 MG Oral Tablet ERIE ([facility]) 0.5 ML dulaglutide 1.5 MG/ML Auto-Inject or [Trulicity] Trulicity 0.75 mg/0.5 mL subcutaneous pen injector INJ 0.75MG SC WEEKLY Trulicity 0.75 mg/0.5 mL subcutaneous pen injector INJ 0.75MG SC WEEKLY completed 0.5 ML dulaglutide 1.5 MG/ML Auto-Injector [Trulicity] ERIE ([facility]) Sulfamethoxazole 800 MG / Trimethoprim 1 60 MG Oral Tablet sulfamethoxazole 800 mg-trimethoprim 160 mg tablet TAKE 1 TABLET BY MOUTH TWICE A DAY FOR 7 DAYS sulfamethoxazole 800 mg-trimethoprim 160 mg tablet TAKE 1 TABLET BY MOUTH TWICE A DAY FOR 7 DAYS completed sulfamethoxazole 800 MG / trimethoprim 160 MG Oral Tablet ERIE ([facility]) Albuterol 0.83 MG/ML Inhalant Solution a lbuterol sulfate 2.5 mg/3 mL (0.083 %) solution for nebulization VVN Q 4 TO 6 H PRF WHZ OR SOB albuterol sulfate 2.5 mg/3 mL (0.083 %) solution for nebulization VVN Q 4 TO 6 H PRF WHZ OR SOB completed albuterol 0.83 MG/ML Inhalation Solution ERIE ([facility]) Omeprazole 40 MG Delayed Release Oral Ca psule omeprazole 40 mg capsule,delayed release TK ONE C PO QD omeprazole 40 mg capsule,delayed release TK ONE C PO Q D completed omeprazole 40 MG Delayed Release Oral Capsule ERIE ([facility]) Fluoxetine 10 MG Oral Capsule fluoxetine 10 mg capsule TK 1 C PO QD fluoxetine 10 mg capsule TK 1 C PO QD completed fluoxetine 10 MG Oral Capsule ERIE ([facility]) Sertraline 25 MG Oral Tablet sertraline 25 mg tablet T K 1 T PO QD sertraline 25 mg tablet TK 1 T PO QD completed sertraline 25 MG Oral Tablet ERIE ([facility]) pregabalin 50 MG Oral Capsule pregabalin 50 mg capsule TAKE 1 CAPSULE BY MOUTH TWICE A DAY pregabalin 50 mg capsule TAKE 1 CAPSULE BY MOUTH TWICE A DAY completed pregabalin 50 MG Ora l Capsule ERIE ([facility]) Omeprazole 40 MG Delayed Release Oral Ca psule omeprazole 40 mg capsule,delayed release TK ONE C PO QD omeprazole 40 mg capsule,delayed release TK ONE C PO Q D completed omeprazole 40 MG Delayed Release Oral Capsule ERIE ([facility]) Lisinopril 5 MG Oral Tablet lisinopril 5 mg tablet TAKE 2 TABLETS BY MOUTH DAILY lisinopril 5 mg tablet TAKE 2 TABLETS BY MOUTH DAILY completed lisinopril 5 MG Oral Tablet ERIE ([facility]) Lisinopril 5 MG Oral Tablet lisinopril 5 mg tablet TK 2 TS PO D lisinopril 5 mg tablet TK 2 TS PO D completed li sinopril 5 MG Oral Tablet ERIE ([facility]) Lactulose 667 MG/ML Oral Solution [Enulo se] Enulose 10 gram/15 mL oral solution TK 30ML PO BID FOR CONSTIPATION Enulose 10 gram/15 mL oral solution TK 3 0ML PO BID FOR CONSTIPATION completed lactulose 667 MG/ML Oral Solution [Enulose] ERIE ([facility]) Omeprazole 40 MG Delayed Release Oral Ca psule omeprazole 40 mg capsule,delayed release TK ONE C PO QD omeprazole 40 mg capsule,delayed release TK ONE C PO Q D completed omeprazole 40 MG Delayed Release Oral Capsule ERIE ([facility]) NITROFURANTOIN, MACROCRYSTALS 25 MG / Ni trofurantoin, Monohydrate 75 MG Oral Capsule nitrofurantoin monohydrate/macrocrystals 100 mg capsule TK 1 C PO BID nitrofurantoin monohydrate/macrocrystals 100 mg capsule TK 1 C PO BID completed nitrofurantoin, macrocrystals 25 MG / nitrofurantoin, monohydrate 75 MG Oral Capsule ERIE ([facility]) gabapentin 800 MG Oral Tablet gabapentin 800 mg tablet TAKE 1 TABLET BY MOUTH THREE TIMES DAILY gabapentin 800 mg tablet TAKE 1 TABLET B Y MOUTH THREE TIMES DAILY completed gabapentin 800 M G Oral Tablet ERIE ([facility]) Dicyclomine Hydrochloride 10 MG Oral Cap zahra dicyclomine 10 mg capsule TK 1 C PO Q 6 H PRF IRRITABLE BOWEL SYNDROME dicyclomine 10 mg capsule TK 1 C PO Q 6 H PRF IRRITABLE BOWEL SYNDROME completed dicyclomine hydrochloride 10 MG Oral Capsule ETHAN ([facility]) Sertraline 50 MG Oral Tablet sertraline 50 mg tablet T K 1 T PO D IN THE MORNING sertraline 50 mg tablet TK 1 T PO D IN THE MORNING completed sertraline 50 MG Oral Tablet ETHAN ([facility]) Dexamethasone 1 MG Oral Tablet dexamethasone 1 mg tabl et dexamethasone 1 mg tablet completed dexamethasone 1 MG Oral Tablet ETHAN ([facility]) gabapentin 600 MG Oral Tablet gabapentin 600 mg tablet TK 1 T PO TID gabapentin 600 mg tablet TK 1 T PO TID completed gabapentin 600 MG Oral Tablet ETHAN ([facility]) Albuterol 0.83 MG/ML Inhalant Solution a lbuterol sulfate 2.5 mg/3 mL (0.083 %) solution for nebulization VVN Q 4 TO 6 H PRF WHZ OR SOB albuterol sulfate 2.5 mg/3 mL (0.083 %) solution for nebulization VVN Q 4 TO 6 H PRF WHZ OR SOB completed albuterol 0.83 MG/ML Inhalation Solution ERIE ([facility]) Metronidazole 0.0075 MG/MG Vaginal Gel m etronidazole 0.75 % vaginal gel INSERT 1 APPLICATION VAGINALLY AT BEDTIME FOR 7 DAYS metronidazole 0.75 % vaginal gel INSERT 1 APPLICATION VAGINALLY AT BEDTIME FOR 7 DAYS completed metronidazole 0.0075 MG/MG Vaginal Gel ERIE ([facility]) ferrous sulfate 325 MG Oral Tablet ferrous sulfate 325 mg (65 mg iron) tablet ferrous sulfate 325 mg (65 mg iron) tablet completed ferrous sulfate 325 MG Oral Tablet ETHAN ([facility]) Levofloxacin 250 MG Oral Tablet levofloxacin 250 mg ta blet levofloxacin 250 mg tablet completed levofloxacin 25 0 MG Oral Tablet ERIE ([facility]) Cephalexin 500 MG Oral Capsule cephalexin 500 mg capsu le cephalexin 500 mg capsule completed cephalexin 500 MG Oral Capsule ERIE ([facility]) Metronidazole 0.0075 MG/MG Vaginal Gel m etronidazole 0.75 % vaginal gel INSERT 1 APPLICATION VAGINALLY AT BEDTIME FOR 7 DAYS metronidazole 0.75 % vaginal gel INSERT 1 APPLICATION VAGINALLY AT BEDTIME FOR 7 DAYS completed metronidazole 0.0075 MG/MG Vaginal Gel ETHAN ([facility]) gabapentin 600 MG Oral Tablet gabapentin 600 mg tablet TK 1 T PO TID gabapentin 600 mg tablet TK 1 T PO TID completed gabapentin 600 MG Oral Tablet ERIE ([facility]) Ciprofloxacin 250 MG Oral Tablet ciprofl oxacin 250 mg tablet TK 1 T PO D FOR 5 DAYS FOR SYMPTOMS OF URINARY TRACT INFECTION ciprofloxacin 250 mg tablet TK 1 T PO D FOR 5 DAYS FOR SYMPTOMS OF URINARY TRACT INFECTION completed ciprofloxacin 250 MG Oral Tablet ERIE ([facility]) Omeprazole 40 MG Delayed Release Oral Ca psule omeprazole 40 mg capsule,delayed release TK ONE C PO QD omeprazole 40 mg capsule,delayed release TK ONE C PO Q D completed omeprazole 40 MG Delayed Release Oral Capsule ERIE ([facility]) Dicyclomine Hydrochloride 10 MG Oral Cap zahra dicyclomine 10 mg capsule TK 1 C PO Q 6 H PRF IRRITABLE BOWEL SYNDROME dicyclomine 10 mg capsule TK 1 C PO Q 6 H PRF IRRITABLE BOWEL SYNDROME completed dicyclomine hydrochloride 10 MG Oral Capsule ERIE ([facility]) Metronidazole 0.0075 MG/MG Vaginal Gel m etronidazole 0.75 % vaginal gel INSERT 1 APPLICATION VAGINALLY AT BEDTIME FOR 7 DAYS metronidazole 0.75 % vaginal gel INSERT 1 APPLICATION VAGINALLY AT BEDTIME FOR 7 DAYS completed metronidazole 0.0075 MG/MG Vaginal Gel ERIE ([facility]) gabapentin 600 MG Oral Tablet gabapentin 600 mg tablet TK 1 T PO TID gabapentin 600 mg tablet TK 1 T PO TID completed gabapentin 600 MG Oral Tablet ERIE ([facility]) gabapentin 800 MG Oral Tablet gabapentin 800 mg tablet TAKE 1 TABLET BY MOUTH THREE TIMES DAILY gabapentin 800 mg tablet TAKE 1 TABLET B Y MOUTH THREE TIMES DAILY completed gabapentin 800 M G Oral Tablet ERIE ([facility]) Albuterol 0.83 MG/ML Inhalant Solution a lbuterol sulfate 2.5 mg/3 mL (0.083 %) solution for nebulization VVN Q 4 TO 6 H PRF WHZ OR SOB albuterol sulfate 2.5 mg/3 mL (0.083 %) solution for nebulization VVN Q 4 TO 6 H PRF WHZ OR SOB completed albuterol 0.83 MG/ML Inhalation Solution ERIE ([facility]) Dicyclomine Hydrochloride 10 MG Oral Cap zahra dicyclomine 10 mg capsule TK 1 C PO Q 6 H PRF IRRITABLE BOWEL SYNDROME dicyclomine 10 mg capsule TK 1 C PO Q 6 H PRF IRRITABLE BOWEL SYNDROME completed dicyclomine hydrochloride 10 MG Oral Capsule ERIE ([facility]) Lisinopril 5 MG Oral Tablet lisinopril 5 mg tablet TAKE 2 TABLETS BY MOUTH DAILY lisinopril 5 mg tablet TAKE 2 TABLETS BY MOUTH DAILY completed lisinopril 5 MG Oral Tablet ERIE ([facility]) Ciprofloxacin 3 MG/ML Ophthalmic Solutio n ciprofloxacin 0.3 % eye drops INSTILL 1 DROP INTO AFFECTED EYE/S 2 TIMES PER DAY FOR 5 DAYS ciprofloxacin 0.3 % eye drops INSTILL 1 DROP INTO AFFECTED EYE/S 2 TIMES PER DAY FOR 5 DAYS completed ciprofloxacin 3 MG/ML Ophthalmic Solution [facility]) gabapentin 600 MG Oral Tablet gabapentin 600 mg tablet TK 1 T PO TID gabapentin 600 mg tablet TK 1 T PO TID completed gabapentin 600 MG Oral Tablet ERIE ([facility]) Lisinopril 5 MG Oral Tablet lisinopril 5 mg tablet TAKE 2 TABLETS BY MOUTH DAILY lisinopril 5 mg tablet TAKE 2 TABLETS BY MOUTH DAILY completed lisinopril 5 MG Oral Tablet ERIE ([facility]) Albuterol 0.83 MG/ML Inhalant Solution a lbuterol sulfate 2.5 mg/3 mL (0.083 %) solution for nebulization VVN Q 4 TO 6 H PRF WHZ OR SOB albuterol sulfate 2.5 mg/3 mL (0.083 %) solution for nebulization VVN Q 4 TO 6 H PRF WHZ OR SOB completed albuterol 0.83 MG/ML Inhalation Solution ERIE ([facility]) silver sulfadiazine 10 MG/ML Topical Cre am [SSD] SSD 1 % topical cream BRIANA TOPICALLY AA BID SSD 1 % topical cream BRIANA TOPICALLY AA BID completed silver sulfadiazine 10 MG/ML Top ical Cream [SSD] ERIE ([facility]) Omeprazole 40 MG Delayed Release Oral Ca psule omeprazole 40 mg capsule,delayed release TK ONE C PO QD omeprazole 40 mg capsule,delayed release TK ONE C PO Q D completed omeprazole 40 MG Delayed Release Oral Capsule ERIE ([facility]) cefdinir 300 MG Oral Capsule cefdinir 30 0 mg capsule TAKE 1 CAPSULE BY MOUTH EVERY 12 HOURS FOR 10 DAYS cefdinir 300 mg capsule TAKE 1 CAPSULE B Y MOUTH EVERY 12 HOURS FOR 10 DAYS completed cefdinir 300 MG Oral Capsule ERIE ([facility]) Dicyclomine Hydrochloride 10 MG Oral Cap zahra dicyclomine 10 mg capsule TK 1 C PO Q 6 H PRF IRRITABLE BOWEL SYNDROME dicyclomine 10 mg capsule TK 1 C PO Q 6 H PRF IRRITABLE BOWEL SYNDROME completed dicyclomine hydrochloride 10 MG Oral Capsule ERIE ([facility]) Sertraline 100 MG Oral Tablet sertraline 100 mg tablet TAKE 1 TABLET BY MOUTH DAILY sertraline 100 mg tablet TAKE 1 TABLET BY MOUTH DAILY completed sertraline 100 MG Oral Tablet AT [facility]) Ciprofloxacin 250 MG Oral Tablet ciprofl oxacin 250 mg tablet TK 1 T PO D FOR 5 DAYS FOR SYMPTOMS OF URINARY TRACT INFECTION ciprofloxacin 250 mg tablet TK 1 T PO D FOR 5 DAYS FOR SYMPTOMS OF URINARY TRACT INFECTION completed ciprofloxacin 250 MG Oral Tablet ERIE ([facility]) Ciprofloxacin 3 MG/ML Ophthalmic Solutio n ciprofloxacin 0.3 % eye drops INSTILL 1 DROP INTO AFFECTED EYE/S 2 TIMES PER DAY FOR 5 DAYS ciprofloxacin 0.3 % eye drops INSTILL 1 DROP INTO AFFECTED EYE/S 2 TIMES PER DAY FOR 5 DAYS completed ciprofloxacin 3 MG/ML Ophthalmic Solution ERIE ([facility]) sitagliptin 50 MG Oral Tablet [Januvia] Januvia 50 mg tablet Januvia 50 mg tablet completed sitagliptin 50 MG Oral Tablet [Januvia] [facility]) Metronidazole 500 MG Oral Tablet metroni dazole 500 mg tablet TK 1 T PO TID FOR 7 DAYS metronidazole 500 mg tablet TK 1 T PO TID FOR 7 DAYS completed metronidazole 500 MG Oral Tablet ERIE ([facility]) Lactulose 667 MG/ML Oral Solution [Enulo se] Enulose 10 gram/15 mL oral solution TK 30ML PO BID FOR CONSTIPATION Enulose 10 gram/15 mL oral solution TK 3 0ML PO BID FOR CONSTIPATION completed lactulose 667 MG/ML Oral Solution [Enulose] ERIE ([facility]) albuterol sulfate HFA 90 mcg/actuation a erosol inhaler INHALE 2 PUFFS BY MOUTH EVERY 4 HOURS NEEDED FOR WHEEZING OR SHORTNESS OF BREATH [id number] completed [id number] 200 ACTUAT albuterol 0.09 MG/ACTUAT Metered Dose Inhaler ERIE ([facility]) Sertraline 25 MG Oral Tablet sertraline 25 mg tablet T K 1 T PO QD sertraline 25 mg tablet TK 1 T PO QD completed sertraline 25 MG Oral Tablet ERIE ([facility]) cefdinir 300 MG Oral Capsule cefdinir 30 0 mg capsule TAKE 1 CAPSULE BY MOUTH EVERY 12 HOURS FOR 10 DAYS cefdinir 300 mg capsule TAKE 1 CAPSULE B Y MOUTH EVERY 12 HOURS FOR 10 DAYS completed cefdinir 300 MG Oral Capsule ETHAN ([facility]) 0.5 ML dulaglutide 1.5 MG/ML Auto-Inject or [Trulicity] Trulicity 0.75 mg/0.5 mL subcutaneous pen injector INJ 0.75MG SC WEEKLY Trulicity 0.75 mg/0.5 mL subcutaneous pen injector INJ 0.75MG SC WEEKLY completed 0.5 ML dulaglutide 1.5 MG/ML Auto-Injector [Trulicity] ETHAN ([facility]) Levofloxacin 250 MG Oral Tablet levofloxacin 250 mg ta blet levofloxacin 250 mg tablet completed levofloxacin 25 0 MG Oral Tablet ERIE ([facility]) cefdinir 300 MG Oral Capsule cefdinir 30 0 mg capsule TAKE 1 CAPSULE BY MOUTH EVERY 12 HOURS FOR 10 DAYS cefdinir 300 mg capsule TAKE 1 CAPSULE B Y MOUTH EVERY 12 HOURS FOR 10 DAYS completed cefdinir 300 MG Oral Capsule ERIE ([facility]) pregabalin 50 MG Oral Capsule pregabalin 50 mg capsule TAKE 1 CAPSULE BY MOUTH TWICE A DAY pregabalin 50 mg capsule TAKE 1 CAPSULE BY MOUTH TWICE A DAY completed pregabalin 50 MG Ora l Capsule ERIE ([facility]) Ciprofloxacin 250 MG Oral Tablet ciprofl oxacin 250 mg tablet TK 1 T PO D FOR 5 DAYS FOR SYMPTOMS OF URINARY TRACT INFECTION ciprofloxacin 250 mg tablet TK 1 T PO D FOR 5 DAYS FOR SYMPTOMS OF URINARY TRACT INFECTION completed ciprofloxacin 250 MG Oral Tablet ERIE ([facility]) 0.5 ML dulaglutide 1.5 MG/ML Auto-Inject or [Trulicity] Trulicity 0.75 mg/0.5 mL subcutaneous pen injector INJ 0.75MG SC WEEKLY Trulicity 0.75 mg/0.5 mL subcutaneous pen injector INJ 0.75MG SC WEEKLY completed 0.5 ML dulaglutide 1.5 MG/ML Auto-Injector [Trulicity] ERIE ([facility]) Sertraline 50 MG Oral Tablet sertraline 50 mg tablet T K 1 T PO D IN THE MORNING sertraline 50 mg tablet TK 1 T PO D IN THE MORNING completed sertraline 50 MG Oral Tablet [facility] ([facility]) Acetaminophen 500 MG Oral Tablet acetami nophen 500 mg tablet TAKE 2 TABS BY MOUTH EVERY 6 HOURS NEEDED FOR PAIN & FEVER. acetaminophen 500 mg tablet TAKE 2 TABS BY MOUTH EVERY 6 HOURS NEEDED FOR PAIN & FEVER. completed acetaminophen 500 MG Oral Tablet ERIE ([facility]) Naproxen 500 MG Oral Tablet naproxen 500 mg tablet TAKE 1 TABLET BY MOUTH TWICE DAILY WITH MEALS naproxen 500 mg tablet TAKE 1 TABLET BY MOUTH TWICE DAILY WITH MEALS completed naproxen 500 MG Oral Tablet ERIE ([facility]) ferrous sulfate 325 MG Oral Tablet martina us sulfate 325 mg (65 mg iron) tablet TK 1 T PO QD ferrous sulfate 325 mg (65 mg iron) tablet TK 1 T PO QD completed ferrous sulfate 325 MG Oral Tabl et ERIE ([facility]) Sertraline 25 MG Oral Tablet sertraline 25 mg tablet T K 1 T PO QD sertraline 25 mg tablet TK 1 T PO QD completed sertraline 25 MG Oral Tablet ERI[facility] ([facility]) Lisinopril 5 MG Oral Tablet lisinopril 5 mg tablet TK 2 TS PO D lisinopril 5 mg tablet TK 2 TS PO D completed li sinopril 5 MG Oral Tablet ETHAN ([facility]) Ciprofloxacin 3 MG/ML Ophthalmic Solutio n ciprofloxacin 0.3 % eye drops INSTILL 1 DROP INTO AFFECTED EYE/S 2 TIMES PER DAY FOR 5 DAYS ciprofloxacin 0.3 % eye drops INSTILL 1 DROP INTO AFFECTED EYE/S 2 TIMES PER DAY FOR 5 DAYS completed ciprofloxacin 3 MG/ML Ophthalmic Solution ERIE ([facility]) silver sulfadiazine 10 MG/ML Topical Cre am [SSD] SSD 1 % topical cream BRIANA TOPICALLY AA BID SSD 1 % topical cream BRIANA TOPICALLY AA BID completed silver sulfadiazine 10 MG/ML Top ical Cream [SSD] ERIE ([facility]) gabapentin 800 MG Oral Tablet gabapentin 800 mg tablet TAKE 1 TABLET BY MOUTH THREE TIMES DAILY gabapentin 800 mg tablet TAKE 1 TABLET B Y MOUTH THREE TIMES DAILY completed gabapentin 800 M G Oral Tablet ERIE ([facility]) Metronidazole 500 MG Oral Tablet metroni dazole 500 mg tablet TK 1 T PO TID FOR 7 DAYS metronidazole 500 mg tablet TK 1 T PO TID FOR 7 DAYS completed metronidazole 500 MG Oral Tablet ERI[facility] ([facility]) Sertraline 25 MG Oral Tablet sertraline 25 mg tablet T K 1 T PO QD sertraline 25 mg tablet TK 1 T PO QD completed sertraline 25 MG Oral Tablet ERI[facility] ([facility]) Metoclopramide 10 MG Oral Tablet metoclo pramide 10 mg tablet TK 1 T PO Q 6 H PRN N metoclopramide 10 mg tablet TK 1 T PO Q 6 H PRN N completed metoclopramide 10 MG Oral Tablet [facility] ([facility]) Lactulose 667 MG/ML Oral Solution [Enulo se] [...] DAYS completed metronidazole 0.0075 MG/MG Vaginal Gel ERIE ([facility]) Clindamycin 300 MG Oral Capsule clindamycin HCl 300 mg capsule clindamycin HCl 300 mg capsule completed clindam ycin 300 MG Oral Capsule ERI[facility] ([facility]) Simethicone 180 MG Oral Capsule Gas Reli ef (simethicone) 180 mg capsule TK ONE C PO TID Gas Relief (simethicone) 180 mg capsule TK ONE C PO TID completed simethicone 180 MG Oral Capsule ERIE ([facility]) NITROFURANTOIN, MACROCRYSTALS 25 MG / Ni trofurantoin, Monohydrate 75 MG Oral Capsule nitrofurantoin monohydrate/macrocrystals 100 mg capsule TK 1 C PO BID nitrofurantoin monohydrate/macrocrystals 100 mg capsule TK 1 C PO BID completed nitrofurantoin, macrocrystals 25 MG / nitrofurantoin, monohydrate 75 MG Oral Capsule ETHAN ([facility]) Lactulose 667 MG/ML Oral Solution [Enulo se] Enulose 10 gram/15 mL oral solution TK 30ML PO BID FOR CONSTIPATION Enulose 10 gram/15 mL oral solution TK 3 0ML PO BID FOR CONSTIPATION completed lactulose 667 MG/ML Oral Solution [Enulose] ETHAN ([facility]) Fluoxetine 10 MG Oral Capsule fluoxetine 10 mg capsule TK 1 C PO QD fluoxetine 10 mg capsule TK 1 C PO QD completed fluoxetine 10 MG Oral Capsule ETHAN ([facility]) Lisinopril 5 MG Oral Tablet lisinopril 5 mg tablet TAKE 2 TABLETS BY MOUTH DAILY lisinopril 5 mg tablet TAKE 2 TABLETS BY MOUTH DAILY completed lisinopril 5 MG Oral Tablet ETHAN ([facility]) Simethicone 180 MG Oral Capsule Gas Reli ef (simethicone) 180 mg capsule TK ONE C PO TID Gas Relief (simethicone) 180 mg capsule TK ONE C PO TID completed simethicone 180 MG Oral Capsule ERIE ([facility]) meloxicam 15 MG Oral Tablet meloxicam 15 mg tablet TK 1 T PO D meloxicam 15 mg tablet TK 1 T PO D completed edgar oxicam 15 MG Oral Tablet ERI[facility] ([facility]) Albuterol 0.83 MG/ML Inhalant Solution a lbuterol sulfate 2.5 mg/3 mL (0.083 %) solution for nebulization VVN Q 4 TO 6 H PRF WHZ OR SOB albuterol sulfate 2.5 mg/3 mL (0.083 %) solution for nebulization VVN Q 4 TO 6 H PRF WHZ OR SOB completed albuterol 0.83 MG/ML Inhalation Solution ERIE ([facility]) Ciprofloxacin 250 MG Oral Tablet ciprofl oxacin 250 mg tablet TK 1 T PO D FOR 5 DAYS FOR SYMPTOMS OF URINARY TRACT INFECTION ciprofloxacin 250 mg tablet TK 1 T PO D FOR 5 DAYS FOR SYMPTOMS OF URINARY TRACT INFECTION completed ciprofloxacin 250 MG Oral Tablet ERI[facility] ([facility]) Levofloxacin 250 MG Oral Tablet levofloxacin 250 mg ta blet levofloxacin 250 mg tablet completed levofloxacin 25 0 MG Oral Tablet ETHAN ([facility]) Lactulose 667 MG/ML Oral Solution [Enulo se] Enulose 10 gram/15 mL oral solution TK 30ML PO BID FOR CONSTIPATION Enulose 10 gram/15 mL oral solution TK 3 0ML PO BID FOR CONSTIPATION completed lactulose 667 MG/ML Oral Solution [Enulose] ETHAN ([facility]) Albuterol 0.83 MG/ML Inhalant Solution a lbuterol sulfate 2.5 mg/3 mL (0.083 %) solution for nebulization VVN Q 4 TO 6 H PRF WHZ OR SOB albuterol sulfate 2.5 mg/3 mL (0.083 %) solution for nebulization VVN Q 4 TO 6 H PRF WHZ OR SOB completed albuterol 0.83 MG/ML Inhalation Solution ETHAN ([facility]) Metoclopramide 10 MG Oral Tablet metoclo pramide 10 mg tablet TK 1 T PO Q 6 H PRN N metoclopramide 10 mg tablet TK 1 T PO Q 6 H PRN N completed metoclopramide 10 MG Oral Tablet ETHAN ([facility]) 0.5 ML dulaglutide 1.5 MG/ML Auto-Inject or [Trulicity] Trulicity 0.75 mg/0.5 mL subcutaneous pen injector INJ 0.75MG SC WEEKLY Trulicity 0.75 mg/0.5 mL subcutaneous pen injector INJ 0.75MG SC WEEKLY completed 0.5 ML dulaglutide 1.5 MG/ML Auto-Injector [Trulicity] ETHAN ([facility]) NITROFURANTOIN, MACROCRYSTALS 25 MG / Ni trofurantoin, Monohydrate 75 MG Oral Capsule nitrofurantoin monohydrate/macrocrystals 100 mg capsule TK 1 C PO BID nitrofurantoin monohydrate/macrocrystals 100 mg capsule TK 1 C PO BID completed nitrofurantoin, macrocrystals 25 MG / nitrofurantoin, monohydrate 75 MG Oral Capsule ETHAN ([facility]) cefdinir 300 MG Oral Capsule cefdinir 30 0 mg capsule TAKE 1 CAPSULE BY MOUTH EVERY 12 HOURS FOR 10 DAYS cefdinir 300 mg capsule TAKE 1 CAPSULE B Y MOUTH EVERY 12 HOURS FOR 10 DAYS completed cefdinir 300 MG Oral Capsule ETHAN ([facility]) Dicyclomine Hydrochloride 10 MG Oral Cap zahra dicyclomine 10 mg capsule TK 1 C PO Q 6 H PRF IRRITABLE BOWEL SYNDROME dicyclomine 10 mg capsule TK 1 C PO Q 6 H PRF IRRITABLE BOWEL SYNDROME completed dicyclomine hydrochloride 10 MG Oral Capsule ETHAN ([facility]) sitagliptin 50 MG Oral Tablet [Januvia] Januvia 50 mg tablet Januvia 50 mg tablet completed sitagliptin 50 MG Oral Tablet [Januvia] ETHAN ([facility]) Dexamethasone 1 MG Oral Tablet dexamethasone 1 mg tabl et dexamethasone 1 mg tablet completed dexamethasone 1 MG Oral Tablet ERIE ([facility]) Fluoxetine 10 MG Oral Capsule fluoxetine 10 mg capsule TK 1 C PO QD fluoxetine 10 mg capsule TK 1 C PO QD completed fluoxetine 10 MG Oral Capsule ERI[facility] ([facility]) Dexamethasone 1 MG Oral Tablet dexamethasone 1 mg tabl et dexamethasone 1 mg tablet completed dexamethasone 1 MG Oral Tablet ERIE ([facility]) gabapentin 800 MG Oral Tablet gabapentin 800 mg tablet TAKE 1 TABLET BY MOUTH THREE TIMES DAILY gabapentin 800 mg tablet TAKE 1 TABLET B Y MOUTH THREE TIMES DAILY completed gabapentin 800 M G Oral Tablet ERIE ([facility]) Fluoxetine 10 MG Oral Capsule fluoxetine 10 mg capsule TK 1 C PO QD fluoxetine 10 mg capsule TK 1 C PO QD completed fluoxetine 10 MG Oral Capsule ERIE ([facility]) 0.5 ML dulaglutide 3 MG/ML Auto-Injector [Trulicity] Trulicity 1.5 mg/0.5 mL subcutaneous pen injector INJECT SQ ONCE WEEKLY Trulicity 1.5 mg/0.5 mL subcutaneous pen injector INJECT SQ ONCE WEEKLY completed 0.5 ML dulaglutide 3 MG/ML Auto-Injector [Trulicity] ERIE ([facility]) Omeprazole 40 MG Delayed Release Oral Ca psule omeprazole 40 mg capsule,delayed release TK ONE C PO QD omeprazole 40 mg capsule,delayed release TK ONE C PO Q D completed omeprazole 40 MG Delayed Release Oral Capsule ERIE ([facility]) Glyburide 5 MG Oral Tablet glyburide 5 mg tablet glyburide 5 mg tablet completed glyburide 5 MG Oral Table t ETHAN ([facility]) NITROFURANTOIN, MACROCRYSTALS 25 MG / Ni trofurantoin, Monohydrate 75 MG Oral Capsule nitrofurantoin monohydrate/macrocrystals 100 mg capsule TK 1 C PO BID nitrofurantoin monohydrate/macrocrystals 100 mg capsule TK 1 C PO BID completed nitrofurantoin, macrocrystals 25 MG / nitrofurantoin, monohydrate 75 MG Oral Capsule ETHAN ([facility]) Sertraline 25 MG Oral Tablet sertraline 25 mg tablet T K 1 T PO QD sertraline 25 mg tablet TK 1 T PO QD completed sertraline 25 MG Oral Tablet ETHAN ([facility]) meloxicam 15 MG Oral Tablet meloxicam 15 mg tablet TK 1 T PO D meloxicam 15 mg tablet TK 1 T PO D completed edgar oxicam 15 MG Oral Tablet ETHAN ([facility]) Dicyclomine Hydrochloride 10 MG Oral Cap zahra dicyclomine 10 mg capsule TK 1 C PO Q 6 H PRF IRRITABLE BOWEL SYNDROME dicyclomine 10 mg capsule TK 1 C PO Q 6 H PRF IRRITABLE BOWEL SYNDROME completed dicyclomine hydrochloride 10 MG Oral Capsule ETHAN ([facility]) Simethicone 180 MG Oral Capsule Gas Reli ef (simethicone) 180 mg capsule TK ONE C PO TID Gas Relief (simethicone) 180 mg capsule TK ONE C PO TID completed simethicone 180 MG Oral Capsule ETHAN ([facility]) 0.5 ML dulaglutide 1.5 MG/ML Auto-Inject or [Trulicity] Trulicity 0.75 mg/0.5 mL subcutaneous pen injector INJ 0.75MG SC WEEKLY Trulicity 0.75 mg/0.5 mL subcutaneous pen injector INJ 0.75MG SC WEEKLY completed 0.5 ML dulaglutide 1.5 MG/ML Auto-Injector [Trulicity] ETHAN ([facility]) Dicyclomine Hydrochloride 10 MG Oral Cap zahra dicyclomine 10 mg capsule TK 1 C PO Q 6 H PRF IRRITABLE BOWEL SYNDROME dicyclomine 10 mg capsule TK 1 C PO Q 6 H PRF IRRITABLE BOWEL SYNDROME completed dicyclomine hydrochloride 10 MG Oral Capsule ETHAN ([facility]) Sertraline 50 MG Oral Tablet sertraline 50 mg tablet T K 1 T PO D IN THE MORNING sertraline 50 mg tablet TK 1 T PO D IN THE MORNING completed sertraline 50 MG Oral Tablet ERIE ([facility]) Sertraline 100 MG Oral Tablet sertraline 100 mg tablet TAKE 1 TABLET BY MOUTH DAILY sertraline 100 mg tablet TAKE 1 TABLET BY MOUTH DAILY completed sertraline 100 MG Oral Tablet AT [facility]) Dicyclomine Hydrochloride 10 MG Oral Cap zahra dicyclomine 10 mg capsule TK 1 C PO Q 6 H PRF IRRITABLE BOWEL SYNDROME dicyclomine 10 mg capsule TK 1 C PO Q 6 H PRF IRRITABLE BOWEL SYNDROME completed dicyclomine hydrochloride 10 MG Oral Capsule ERIE ([facility]) Ciprofloxacin 250 MG Oral Tablet ciprofl oxacin 250 mg tablet TK 1 T PO D FOR 5 DAYS FOR SYMPTOMS OF URINARY TRACT INFECTION ciprofloxacin 250 mg tablet TK 1 T PO D FOR 5 DAYS FOR SYMPTOMS OF URINARY TRACT INFECTION completed ciprofloxacin 250 MG Oral Tablet [facility]) albuterol sulfate HFA 90 mcg/actuation a erosol inhaler INHALE 2 PUFFS BY MOUTH EVERY 4 HOURS NEEDED FOR WHEEZING OR SHORTNESS OF BREATH [id number] completed [id number] 200 ACTUAT albuterol 0.09 MG/ACTUAT Metered Dose Inhaler ERIE ([facility]) gabapentin 600 MG Oral Tablet gabapentin 600 mg tablet TK 1 T PO TID gabapentin 600 mg tablet TK 1 T PO TID completed gabapentin 600 MG Oral Tablet ERIE ([facility]) Simethicone 180 MG Oral Capsule Gas Reli ef (simethicone) 180 mg capsule TK ONE C PO TID Gas Relief (simethicone) 180 mg capsule TK ONE C PO TID completed simethicone 180 MG Oral Capsule ERIE ([facility]) Sertraline 100 MG Oral Tablet sertraline 100 mg tablet TAKE 1 TABLET BY MOUTH DAILY sertraline 100 mg tablet TAKE 1 TABLET BY MOUTH DAILY completed sertraline 100 MG Oral Tablet AT [facility]) Ciprofloxacin 3 MG/ML Ophthalmic Solutio n ciprofloxacin 0.3 % eye drops INSTILL 1 DROP INTO AFFECTED EYE/S 2 TIMES PER DAY FOR 5 DAYS ciprofloxacin 0.3 % eye drops INSTILL 1 DROP INTO AFFECTED EYE/S 2 TIMES PER DAY FOR 5 DAYS completed ciprofloxacin 3 MG/ML Ophthalmic Solution ETHAN ([facility]) Ciprofloxacin 250 MG Oral Tablet ciprofl oxacin 250 mg tablet TK 1 T PO D FOR 5 DAYS FOR SYMPTOMS OF URINARY TRACT INFECTION ciprofloxacin 250 mg tablet TK 1 T PO D FOR 5 DAYS FOR SYMPTOMS OF URINARY TRACT INFECTION completed ciprofloxacin 250 MG Oral Tablet ETHAN ([facility]) Acetaminophen 500 MG Oral Tablet acetami nophen 500 mg tablet TAKE 2 TABS BY MOUTH EVERY 6 HOURS NEEDED FOR PAIN & FEVER. acetaminophen 500 mg tablet TAKE 2 TABS BY MOUTH EVERY 6 HOURS NEEDED FOR PAIN & FEVER. completed acetaminophen 500 MG Oral Tablet ETHAN ([facility]) silver sulfadiazine 10 MG/ML Topical Cre am [SSD] SSD 1 % topical cream BRIANA TOPICALLY AA BID SSD 1 % topical cream BRIANA TOPICALLY AA BID completed silver sulfadiazine 10 MG/ML Top ical Cream [SSD] ERIE ([facility]) ferrous sulfate 325 MG Oral Tablet martina us sulfate 325 mg (65 mg iron) tablet TK 1 T PO QD ferrous sulfate 325 mg (65 mg iron) tablet TK 1 T PO QD completed ferrous sulfate 325 MG Oral Tabl et ETHAN ([facility]) Sertraline 50 MG Oral Tablet sertraline 50 mg tablet T K 1 T PO D IN THE MORNING sertraline 50 mg tablet TK 1 T PO D IN THE MORNING completed sertraline 50 MG Oral Tablet ERIE ([facility]) Simethicone 180 MG Oral Capsule Gas Reli ef (simethicone) 180 mg capsule TK ONE C PO TID Gas Relief (simethicone) 180 mg capsule TK ONE C PO TID completed simethicone 180 MG Oral Capsule ETHAN ([facility]) Glyburide 5 MG Oral Tablet glyburide 5 mg tablet glyburide 5 mg tablet completed glyburide 5 MG Oral Table t ETHAN ([facility]) Fluoxetine 10 MG Oral Capsule fluoxetine 10 mg capsule TK 1 C PO QD fluoxetine 10 mg capsule TK 1 C PO QD completed fluoxetine 10 MG Oral Capsule ETHAN ([facility]) Dicyclomine Hydrochloride 10 MG Oral Cap zahra dicyclomine 10 mg capsule TK 1 C PO Q 6 H PRF IRRITABLE BOWEL SYNDROME dicyclomine 10 mg capsule TK 1 C PO Q 6 H PRF IRRITABLE BOWEL SYNDROME completed dicyclomine hydrochloride 10 MG Oral Capsule ETHAN ([facility]) Ciprofloxacin 250 MG Oral Tablet ciprofl oxacin 250 mg tablet TK 1 T PO D FOR 5 DAYS FOR SYMPTOMS OF URINARY TRACT INFECTION ciprofloxacin 250 mg tablet TK 1 T PO D FOR 5 DAYS FOR SYMPTOMS OF URINARY TRACT INFECTION completed ciprofloxacin 250 MG Oral Tablet ETHAN ([facility]) Omeprazole 40 MG Delayed Release Oral Ca psule omeprazole 40 mg capsule,delayed release TK ONE C PO QD omeprazole 40 mg capsule,delayed release TK ONE C PO Q D completed omeprazole 40 MG Delayed Release Oral Capsule ETHAN ([facility]) Simethicone 180 MG Oral Capsule Gas Reli ef (simethicone) 180 mg capsule TK ONE C PO TID Gas Relief (simethicone) 180 mg capsule TK ONE C PO TID completed simethicone 180 MG Oral Capsule ETHAN ([facility]) Levofloxacin 250 MG Oral Tablet levofloxacin 250 mg ta blet levofloxacin 250 mg tablet completed levofloxacin 25 0 MG Oral Tablet ETHAN ([facility]) Metronidazole 500 MG Oral Tablet metroni dazole 500 mg tablet TK 1 T PO TID FOR 7 DAYS metronidazole 500 mg tablet TK 1 T PO TID FOR 7 DAYS completed metronidazole 500 MG Oral Tablet ETHAN ([facility]) Metronidazole 0.0075 MG/MG Vaginal Gel m etronidazole 0.75 % vaginal gel INSERT 1 APPLICATION VAGINALLY AT BEDTIME FOR 7 DAYS metronidazole 0.75 % vaginal gel INSERT 1 APPLICATION VAGINALLY AT BEDTIME FOR 7 DAYS completed metronidazole 0.0075 MG/MG Vaginal Gel ETHAN ([facility]) Fluoxetine 10 MG Oral Capsule fluoxetine 10 mg capsule TK 1 C PO QD fluoxetine 10 mg capsule TK 1 C PO QD completed fluoxetine 10 MG Oral Capsule ETHAN ([facility]) gabapentin 600 MG Oral Tablet gabapentin 600 mg tablet TK 1 T PO TID gabapentin 600 mg tablet TK 1 T PO TID completed gabapentin 600 MG Oral Tablet ETHAN ([facility]) Sertraline 50 MG Oral Tablet sertraline 50 mg tablet T K 1 T PO D IN THE MORNING sertraline 50 mg tablet TK 1 T PO D IN THE MORNING completed sertraline 50 MG Oral Tablet ETHAN ([facility]) Metronidazole 0.0075 MG/MG Vaginal Gel m etronidazole 0.75 % vaginal gel INSERT 1 APPLICATION VAGINALLY AT BEDTIME FOR 7 DAYS metronidazole 0.75 % vaginal gel INSERT 1 APPLICATION VAGINALLY AT BEDTIME FOR 7 DAYS completed metronidazole 0.0075 MG/MG Vaginal Gel ERIE ([facility]) Sulfamethoxazole 800 MG / Trimethoprim 1 60 MG Oral Tablet sulfamethoxazole 800 mg-trimethoprim 160 mg tablet TAKE 1 TABLET BY MOUTH TWICE A DAY FOR 7 DAYS sulfamethoxazole 800 mg-trimethoprim 160 mg tablet TAKE 1 TABLET BY MOUTH TWICE A DAY FOR 7 DAYS completed sulfamethoxazole 800 MG / trimethoprim 160 MG Oral Tablet ERIE ([facility]) Acetaminophen 500 MG Oral Tablet acetami nophen 500 mg tablet TAKE 2 TABS BY MOUTH EVERY 6 HOURS NEEDED FOR PAIN & FEVER. acetaminophen 500 mg tablet TAKE 2 TABS BY MOUTH EVERY 6 HOURS NEEDED FOR PAIN & FEVER. completed acetaminophen 500 MG Oral Tablet ERIE ([facility]) Albuterol 0.83 MG/ML Inhalant Solution a lbuterol sulfate 2.5 mg/3 mL (0.083 %) solution for nebulization VVN Q 4 TO 6 H PRF WHZ OR SOB albuterol sulfate 2.5 mg/3 mL (0.083 %) solution for nebulization VVN Q 4 TO 6 H PRF WHZ OR SOB completed albuterol 0.83 MG/ML Inhalation Solution ERIE ([facility]) silver sulfadiazine 10 MG/ML Topical Cre am [SSD] SSD 1 % topical cream BRIANA TOPICALLY AA BID SSD 1 % topical cream BRIANA TOPICALLY AA BID completed silver sulfadiazine 10 MG/ML Top ical Cream [SSD] ERIE ([facility]) Omeprazole 40 MG Delayed Release Oral Ca psule omeprazole 40 mg capsule,delayed release TK ONE C PO QD omeprazole 40 mg capsule,delayed release TK ONE C PO Q D completed omeprazole 40 MG Delayed Release Oral Capsule ERIE ([facility]) meloxicam 15 MG Oral Tablet meloxicam 15 mg tablet TK 1 T PO D meloxicam 15 mg tablet TK 1 T PO D completed edgar oxicam 15 MG Oral Tablet ERIE ([facility]) Ciprofloxacin 3 MG/ML Ophthalmic Solutio n ciprofloxacin 0.3 % eye drops INSTILL 1 DROP INTO AFFECTED EYE/S 2 TIMES PER DAY FOR 5 DAYS ciprofloxacin 0.3 % eye drops INSTILL 1 DROP INTO AFFECTED EYE/S 2 TIMES PER DAY FOR 5 DAYS completed ciprofloxacin 3 MG/ML Ophthalmic Solution ERIE ([facility]) gabapentin 800 MG Oral Tablet gabapentin 800 mg tablet TAKE 1 TABLET BY MOUTH THREE TIMES DAILY gabapentin 800 mg tablet TAKE 1 TABLET B Y MOUTH THREE TIMES DAILY completed gabapentin 800 M G Oral Tablet ERIE ([facility]) Sertraline 100 MG Oral Tablet sertraline 100 mg tablet TAKE 1 TABLET BY MOUTH DAILY sertraline 100 mg tablet TAKE 1 TABLET BY MOUTH DAILY completed sertraline 100 MG Oral Tablet AT [facility] ([facility]) Sulfamethoxazole 800 MG / Trimethoprim 1 60 MG Oral Tablet sulfamethoxazole 800 mg-trimethoprim 160 mg tablet TAKE 1 TABLET BY MOUTH TWICE A DAY FOR 7 DAYS sulfamethoxazole 800 mg-trimethoprim 160 mg tablet TAKE 1 TABLET BY MOUTH TWICE A DAY FOR 7 DAYS completed sulfamethoxazole 800 MG / trimethoprim 160 MG Oral Tablet ERIE ([facility]) Sertraline 50 MG Oral Tablet sertraline 50 mg tablet T K 1 T PO D IN THE MORNING sertraline 50 mg tablet TK 1 T PO D IN THE MORNING completed sertraline 50 MG Oral Tablet ERIE ([facility]) canagliflozin 100 MG Oral Tablet [Invokana] Invokana 1 00 mg tablet Invokana 100 mg tablet completed canagliflozi n 100 MG Oral Tablet [Invokana] ERIE ([facility]) Metronidazole 0.0075 MG/MG Vaginal Gel m etronidazole 0.75 % vaginal gel INSERT 1 APPLICATION VAGINALLY AT BEDTIME FOR 7 DAYS metronidazole 0.75 % vaginal gel INSERT 1 APPLICATION VAGINALLY AT BEDTIME FOR 7 DAYS completed metronidazole 0.0075 MG/MG Vaginal Gel ERIE ([facility]) Dicyclomine Hydrochloride 10 MG Oral Cap zahra dicyclomine 10 mg capsule TK 1 C PO Q 6 H PRF IRRITABLE BOWEL SYNDROME dicyclomine 10 mg capsule TK 1 C PO Q 6 H PRF IRRITABLE BOWEL SYNDROME completed dicyclomine hydrochloride 10 MG Oral Capsule ERIE ([facility]) meloxicam 15 MG Oral Tablet meloxicam 15 mg tablet TK 1 T PO D meloxicam 15 mg tablet TK 1 T PO D completed edgar oxicam 15 MG Oral Tablet ERIE ([facility]) 0.5 ML dulaglutide 1.5 MG/ML Auto-Inject or [Trulicity] Trulicity 0.75 mg/0.5 mL subcutaneous pen injector INJ 0.75MG SC WEEKLY Trulicity 0.75 mg/0.5 mL subcutaneous pen injector INJ 0.75MG SC WEEKLY completed 0.5 ML dulaglutide 1.5 MG/ML Auto-Injector [Trulicity] ETHAN ([facility]) 0.5 ML dulaglutide 1.5 MG/ML Auto-Inject or [Trulicity] Trulicity 0.75 mg/0.5 mL subcutaneous pen injector INJ 0.75MG SC WEEKLY Trulicity 0.75 mg/0.5 mL subcutaneous pen injector INJ 0.75MG SC WEEKLY completed 0.5 ML dulaglutide 1.5 MG/ML Auto-Injector [Trulicity] ERIE ([facility]) Omeprazole 40 MG Delayed Release Oral Ca psule omeprazole 40 mg capsule,delayed release TK ONE C PO QD omeprazole 40 mg capsule,delayed release TK ONE C PO Q D completed omeprazole 40 MG Delayed Release Oral Capsule ETHAN ([facility]) NITROFURANTOIN, MACROCRYSTALS 25 MG / Ni trofurantoin, Monohydrate 75 MG Oral Capsule nitrofurantoin monohydrate/macrocrystals 100 mg capsule TK 1 C PO BID nitrofurantoin monohydrate/macrocrystals 100 mg capsule TK 1 C PO BID completed nitrofurantoin, macrocrystals 25 MG / nitrofurantoin, monohydrate 75 MG Oral Capsule ERIE ([facility]) gabapentin 800 MG Oral Tablet gabapentin 800 mg tablet TAKE 1 TABLET BY MOUTH THREE TIMES DAILY gabapentin 800 mg tablet TAKE 1 TABLET B Y MOUTH THREE TIMES DAILY completed gabapentin 800 M G Oral Tablet ETHAN ([facility]) ferrous sulfate 325 MG Oral Tablet martina us sulfate 325 mg (65 mg iron) tablet TK 1 T PO QD ferrous sulfate 325 mg (65 mg iron) tablet TK 1 T PO QD completed ferrous sulfate 325 MG Oral Tabl et ETHAN ([facility]) gabapentin 600 MG Oral Tablet gabapentin 600 mg tablet TK 1 T PO TID gabapentin 600 mg tablet TK 1 T PO TID completed gabapentin 600 MG Oral Tablet ETHAN ([facility]) Sertraline 25 MG Oral Tablet sertraline 25 mg tablet T K 1 T PO QD sertraline 25 mg tablet TK 1 T PO QD completed sertraline 25 MG Oral Tablet ETHAN ([facility]) 0.5 ML dulaglutide 3 MG/ML Auto-Injector [Trulicity] Trulicity 1.5 mg/0.5 mL subcutaneous pen injector INJECT SQ ONCE WEEKLY Trulicity 1.5 mg/0.5 mL subcutaneous pen injector INJECT SQ ONCE WEEKLY completed 0.5 ML dulaglutide 3 MG/ML Auto-Injector [Trulicity] ETHAN ([facility]) 0.5 ML dulaglutide 1.5 MG/ML Auto-Inject or [Trulicity] Trulicity 0.75 mg/0.5 mL subcutaneous pen injector INJ 0.75MG SC WEEKLY Trulicity 0.75 mg/0.5 mL subcutaneous pen injector INJ 0.75MG SC WEEKLY completed 0.5 ML dulaglutide 1.5 MG/ML Auto-Injector [Trulicity] ETHAN ([facility]) albuterol sulfate HFA 90 mcg/actuation a erosol inhaler INHALE 2 PUFFS BY MOUTH EVERY 4 HOURS NEEDED FOR WHEEZING OR SHORTNESS OF BREATH [id number] completed [id number] 200 ACTUAT albuterol 0.09 MG/ACTUAT Metered Dose Inhaler ETHAN ([facility]) Clindamycin 300 MG Oral Capsule clindamycin HCl 300 mg capsule clindamycin HCl 300 mg capsule completed clindam ycin 300 MG Oral Capsule ETHAN ([facility]) NITROFURANTOIN, MACROCRYSTALS 25 MG / Ni trofurantoin, Monohydrate 75 MG Oral Capsule nitrofurantoin monohydrate/macrocrystals 100 mg capsule TK 1 C PO BID nitrofurantoin monohydrate/macrocrystals 100 mg capsule TK 1 C PO BID completed nitrofurantoin, macrocrystals 25 MG / nitrofurantoin, monohydrate 75 MG Oral Capsule ETHAN ([facility]) Dicyclomine Hydrochloride 10 MG Oral Cap zahra dicyclomine 10 mg capsule TK 1 C PO Q 6 H PRF IRRITABLE BOWEL SYNDROME dicyclomine 10 mg capsule TK 1 C PO Q 6 H PRF IRRITABLE BOWEL SYNDROME completed dicyclomine hydrochloride 10 MG Oral Capsule ETHAN ([facility]) Sertraline 100 MG Oral Tablet sertraline 100 mg tablet TAKE 1 TABLET BY MOUTH DAILY sertraline 100 mg tablet TAKE 1 TABLET BY MOUTH DAILY completed sertraline 100 MG Oral Tablet AT RAMILA ([facility]) Sulfamethoxazole 800 MG / Trimethoprim 1 60 MG Oral Tablet sulfamethoxazole 800 mg-trimethoprim 160 mg tablet TAKE 1 TABLET BY MOUTH TWICE A DAY FOR 7 DAYS sulfamethoxazole 800 mg-trimethoprim 160 mg tablet TAKE 1 TABLET BY MOUTH TWICE A DAY FOR 7 DAYS completed sulfamethoxazole 800 MG / trimethoprim 160 MG Oral Tablet ETHAN ([facility]) Fluoxetine 10 MG Oral Capsule fluoxetine 10 mg capsule TK 1 C PO QD fluoxetine 10 mg capsule TK 1 C PO QD completed fluoxetine 10 MG Oral Capsule ETHAN ([facility]) pregabalin 50 MG Oral Capsule pregabalin 50 mg capsule TAKE 1 CAPSULE BY MOUTH TWICE A DAY pregabalin 50 mg capsule TAKE 1 CAPSULE BY MOUTH TWICE A DAY completed pregabalin 50 MG Ora l Capsule ERIE ([facility]) Lisinopril 5 MG Oral Tablet lisinopril 5 mg tablet TAKE 2 TABLETS BY MOUTH DAILY lisinopril 5 mg tablet TAKE 2 TABLETS BY MOUTH DAILY completed lisinopril 5 MG Oral Tablet ETHAN ([facility]) Fluoxetine 10 MG Oral Capsule fluoxetine 10 mg capsule TK 1 C PO QD fluoxetine 10 mg capsule TK 1 C PO QD completed fluoxetine 10 MG Oral Capsule ETHAN ([facility]) Omeprazole 40 MG Delayed Release Oral Ca psule omeprazole 40 mg capsule,delayed release TK ONE C PO QD omeprazole 40 mg capsule,delayed release TK ONE C PO Q D completed omeprazole 40 MG Delayed Release Oral Capsule ERIE ([facility]) 0.5 ML dulaglutide 1.5 MG/ML Auto-Inject or [Trulicity] Trulicity 0.75 mg/0.5 mL subcutaneous pen injector INJ 0.75MG SC WEEKLY Trulicity 0.75 mg/0.5 mL subcutaneous pen injector INJ 0.75MG SC WEEKLY completed 0.5 ML dulaglutide 1.5 MG/ML Auto-Injector [Trulicity] ETHAN ([facility]) Metronidazole 0.0075 MG/MG Vaginal Gel m etronidazole 0.75 % vaginal gel INSERT 1 APPLICATION VAGINALLY AT BEDTIME FOR 7 DAYS metronidazole 0.75 % vaginal gel INSERT 1 APPLICATION VAGINALLY AT BEDTIME FOR 7 DAYS completed metronidazole 0.0075 MG/MG Vaginal Gel ETHAN ([facility]) Metronidazole 500 MG Oral Tablet metroni dazole 500 mg tablet TK 1 T PO TID FOR 7 DAYS metronidazole 500 mg tablet TK 1 T PO TID FOR 7 DAYS completed metronidazole 500 MG Oral Tablet ETHAN ([facility]) Fluoxetine 10 MG Oral Capsule fluoxetine 10 mg capsule TK 1 C PO QD fluoxetine 10 mg capsule TK 1 C PO QD completed fluoxetine 10 MG Oral Capsule ETHAN ([facility]) Metoclopramide 10 MG Oral Tablet metoclo pramide 10 mg tablet TK 1 T PO Q 6 H PRN N metoclopramide 10 mg tablet TK 1 T PO Q 6 H PRN N completed metoclopramide 10 MG Oral Tablet ETHAN ([facility]) Fluoxetine 10 MG Oral Capsule fluoxetine 10 mg capsule TK 1 C PO QD fluoxetine 10 mg capsule TK 1 C PO QD completed fluoxetine 10 MG Oral Capsule ETHAN ([facility]) Ciprofloxacin 250 MG Oral Tablet ciprofl oxacin 250 mg tablet TK 1 T PO D FOR 5 DAYS FOR SYMPTOMS OF URINARY TRACT INFECTION ciprofloxacin 250 mg tablet TK 1 T PO D FOR 5 DAYS FOR SYMPTOMS OF URINARY TRACT INFECTION completed ciprofloxacin 250 MG Oral Tablet ETHAN ([facility]) Naproxen 500 MG Oral Tablet naproxen 500 mg tablet TAKE 1 TABLET BY MOUTH TWICE DAILY WITH MEALS naproxen 500 mg tablet TAKE 1 TABLET BY MOUTH TWICE DAILY WITH MEALS completed naproxen 500 MG Oral Tablet ERIE ([facility]) albuterol sulfate HFA 90 mcg/actuation a erosol inhaler INHALE 2 PUFFS BY MOUTH EVERY 4 HOURS NEEDED FOR WHEEZING OR SHORTNESS OF BREATH [id number] completed [id number] 200 ACTUAT albuterol 0.09 MG/ACTUAT Metered Dose Inhaler ETHAN ([facility]) Metronidazole 500 MG Oral Tablet metroni dazole 500 mg tablet TK 1 T PO TID FOR 7 DAYS metronidazole 500 mg tablet TK 1 T PO TID FOR 7 DAYS completed metronidazole 500 MG Oral Tablet ETHAN ([facility]) Sertraline 25 MG Oral Tablet sertraline 25 mg tablet T K 1 T PO QD sertraline 25 mg tablet TK 1 T PO QD completed sertraline 25 MG Oral Tablet ETHAN ([facility]) meloxicam 15 MG Oral Tablet meloxicam 15 mg tablet TK 1 T PO D meloxicam 15 mg tablet TK 1 T PO D completed edgar oxicam 15 MG Oral Tablet ETHAN ([facility]) Sulfamethoxazole 800 MG / Trimethoprim 1 60 MG Oral Tablet sulfamethoxazole 800 mg-trimethoprim 160 mg tablet TAKE 1 TABLET BY MOUTH TWICE A DAY FOR 7 DAYS sulfamethoxazole 800 mg-trimethoprim 160 mg tablet TAKE 1 TABLET BY MOUTH TWICE A DAY FOR 7 DAYS completed sulfamethoxazole 800 MG / trimethoprim 160 MG Oral Tablet ETHAN ([facility]) Simethicone 180 MG Oral Capsule Gas Reli ef (simethicone) 180 mg capsule TK ONE C PO TID Gas Relief (simethicone) 180 mg capsule TK ONE C PO TID completed simethicone 180 MG Oral Capsule ERIE ([facility]) Metronidazole 500 MG Oral Tablet metroni dazole 500 mg tablet TK 1 T PO TID FOR 7 DAYS metronidazole 500 mg tablet TK 1 T PO TID FOR 7 DAYS completed metronidazole 500 MG Oral Tablet ETHAN ([facility]) Dicyclomine Hydrochloride 10 MG Oral Cap zahra dicyclomine 10 mg capsule TK 1 C PO Q 6 H PRF IRRITABLE BOWEL SYNDROME dicyclomine 10 mg capsule TK 1 C PO Q 6 H PRF IRRITABLE BOWEL SYNDROME completed dicyclomine hydrochloride 10 MG Oral Capsule ETHAN ([facility]) 0.5 ML dulaglutide 1.5 MG/ML Auto-Inject or [Trulicity] Trulicity 0.75 mg/0.5 mL subcutaneous pen injector INJ 0.75MG SC WEEKLY Trulicity 0.75 mg/0.5 mL subcutaneous pen injector INJ 0.75MG SC WEEKLY completed 0.5 ML dulaglutide 1.5 MG/ML Auto-Injector [Trulicity] ETHAN ([facility]) 0.5 ML dulaglutide 1.5 MG/ML Auto-Inject or [Trulicity] Trulicity 0.75 mg/0.5 mL subcutaneous pen injector INJ 0.75MG SC WEEKLY Trulicity 0.75 mg/0.5 mL subcutaneous pen injector INJ 0.75MG SC WEEKLY completed 0.5 ML dulaglutide 1.5 MG/ML Auto-Injector [Trulicity] ETHAN ([facility]) NITROFURANTOIN, MACROCRYSTALS 25 MG / Ni trofurantoin, Monohydrate 75 MG Oral Capsule nitrofurantoin monohydrate/macrocrystals 100 mg capsule nitrofurantoin monohydrate/macrocrystals 100 mg capsule completed nitrofurantoin, macrocrystals 25 MG / nitrofurantoin, monohydrate 75 MG Oral Capsule ETHAN ([facility]) Metronidazole 500 MG Oral Tablet metroni dazole 500 mg tablet TK 1 T PO TID FOR 7 DAYS metronidazole 500 mg tablet TK 1 T PO TID FOR 7 DAYS completed metronidazole 500 MG Oral Tablet ETHAN ([facility]) Insurance Providers Payer name Policy type / Coverage type Policy ID Covered libertarian ID Covered libertarian's relationship to yun Policy Yun Plan Information Medicaid S [id number] S [id number] Managed Care - [facility] P [id number] S [id number] Medicaid S [id number] S [id number] Medicaid S [id number] S [id number] [facility] I [id number] Self [id number] [facility] [id number] Yana [id number] [facility] [id number] Medicaid S [id number] S [id number] [facility] Health Care Commercial Insurance Co. [id number] Self [id number] [facility] [id number] SP [id number] [facility] [id number] SP [id number] [facility] [id number] SP [id number] [facility] [id number] SP [id number] [facility] [id number] SP [id number] Managed Care - [facility] P [id number] S [id number] Medicaid S [id number] S [id number] SELF PAY ONLY [id number] SP [id number] [facility] [id number] SP [id number] [place] O [id number] SP [id number] [place] [place] 306/806 [id number] SP [id number] [employer] [place] 306/806 [id number] SP [id number] [facility] Medicaid Commercial [id number] Self [id number] Self Pay P UNAVAILABLE S UNAVAILA BLE [facility] P [id number] S [id number] [facility] O [id number] S [id number] PMA MANAGEMENT [facility] [id number] SP [id number] OTHER WORKERS COMPENSATION [id number] SP [id number] [facility] [id number] SP [id number] [facility] [id number] SP [id number] SELF PAY UNAVAILABLE SP UNAVAILA BLE SELF PAY [id number] SP [id number] MEDICAID [id number] SP [id number] [facility] [id number] SP [id number] [facility] [id number] SP [id number] [place] [id number] SP [id number] MEDICAID [id number] SP [id number] [facility] O [id number] S [id number] [facility] O [id number] S [id number] [facility] [id number] SP [id number] [facility] [id number] SP [id number] [facility] [id number] SP [id number] Problems, Conditions, and Diagnoses Code Display Name Description Problem Type Effective Dates Data Source(s) F43.10 Post-traumatic stress disorder, unspecif ied Post-traumatic stress disorder, unspecif Diagnosis 08/26/2020 03:38:14 PM EDT [facility] E66.9 Obesity, unspecified Obesity, unspecified Diagnosis 08/26/2020 03:38:14 PM EDT [facility] E11.69 Type 2 diabetes mellitus with other spec ified complication Type 2 diabetes mellitus with other spec Diagnosis 08/26/2020 03:38:14 PM EDT [facility] R00.2 Palpitations Palpitations Diagnosis 08/26/2020 03:38:14 P M EDT [facility] I10 Essential (primary) hypertension Essential (primary) h ypertension Diagnosis 08/26/2020 03:38:14 PM EDT [facility] lab lab Diagnosis 06/29/2020 11:21:30 AM ED [facility] E04.1 Nontoxic single thyroid nodule Nontoxic single thyroid nodule Diagnosis 06/26/2020 06:10:56 PM [facility] E66.9 Obesity, unspecified Obesity, unspecified Diagnosis 06/26/2020 06:10:17 PM [facility] E11.69 Type 2 diabetes mellitus with other spec ified complication Type 2 diabetes mellitus with other specified complication Diagnosis 06:10:17 PM [facility] 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 Other specified disorders of adrenal gland Diagnosis 06/26/2020 06:10:08 PM EDT [facility] E55.9 Vitamin D deficiency, unspecified Vitamin D defi ciency, unspecified Diagnosis 06/25/2020 02:33:11 PM [facility] I10 Essential hypertension Essential hypertension [id number] 08/26/2020 12:00:00 AM EDT [facility] R00.2 Palpitations Palpitations [id number] 08/22/2020 12:00:00 A M EDT [facility] E04.1 Thyroid nodule Thyroid nodule [id number] 06/25/2020 12:00: 00 AM EDT [facility] F43.10 PTSD (post-traumatic stress disorder) PT SD (post-traumatic stress disorder) [id number] 06/25/2020 12:00:00 AM EDT [facility] Z79.4 Long-term insulin use Long-term insulin use [id number] 06/25/2020 12:00:00 AM EDT [facility] E11.40 Diabetic neuropathy associated with type 2 diabetes mellitus Diabetic neuropathy associated with type 2 diabetes mellitus [id number] 12:00:00 AM EDT [facility] E11.69 Diabetes mellitus type 2 in obese Diabetes melli tus type 2 in obese [id number] 06/25/2020 12:00:[address] [facility] F32.9 Depression Depression [id number] 06/25/2020 12:00:00 AM ED T [facility] F41.9 Anxiety Anxiety [id number] 06/25/2020 12:00:00 AM ED T [facility] E27.8 Adrenal incidentaloma Adrenal incidentaloma [id number] 06/25/2020 12:00:00 AM EDT [facility] [id number] Gastroesophageal reflux disease without esophagitis Gastroesophageal Reflux Disease without Esophagitis Problem 02/26/2020 12:00:00 AM ES Leonard ETHAN ([facility]) [id number] Essential hypertension Essential Hypertension Problem 02/26/2020 12:00:00 AM EST ETHAN ([facility]) [id number] Gastroesophageal reflux disease without esophagitis Gastroesophageal Reflux Disease without Esophagitis Problem 02/26/2020 12:00:00 AM ES T ETHAN ([facility]) [id number] Essential hypertension Essential Hypertension Problem 02/26/2020 12:00:00 AM EST ETHAN ([facility]) [id number] Gastroesophageal reflux disease without esophagitis Gastroesophageal Reflux Disease without Esophagitis Problem 02/26/2020 12:00:00 AM ES T ETHAN ([facility]) [id number] Essential hypertension Essential Hypertension Problem 02/26/2020 12:00:00 AM EST ETHAN ([facility]) [id number] Gastroesophageal reflux disease without esophagitis Gastroesophageal Reflux Disease without Esophagitis Problem 02/26/2020 12:00:00 AM ES T ETHAN ([facility]) [id number] Essential hypertension Essential Hypertension Problem 02/26/2020 12:00:00 AM EST ETHAN ([facility]) [id number] Gastroesophageal reflux disease without esophagitis Gastroesophageal Reflux Disease without Esophagitis Problem 02/26/2020 12:00:00 AM ES T ETHAN ([facility]) [id number] Essential hypertension Essential Hypertension Problem 02/26/2020 12:00:00 AM EST ETHAN ([facility]) [id number] Gastroesophageal reflux disease without esophagitis Gastroesophageal Reflux Disease without Esophagitis Problem 02/26/2020 12:00:00 AM ES T ETHAN ([facility]) [id number] Essential hypertension Essential Hypertension Problem 02/26/2020 12:00:00 AM EST ETHAN ([facility]) [id number] Gastroesophageal reflux disease without esophagitis Gastroesophageal Reflux Disease without Esophagitis Problem 02/26/2020 12:00:00 AM ES T ETHAN ([facility]) [id number] Essential hypertension Essential Hypertension Problem 02/26/2020 12:00:00 AM EST ETHAN ([facility]) [id number] Gastroesophageal reflux disease without esophagitis Gastroesophageal Reflux Disease without Esophagitis Problem 02/26/2020 12:00:00 AM ES T ETHAN ([facility]) [id number] Essential hypertension Essential Hypertension Problem 02/26/2020 12:00:00 AM EST ETHAN ([facility]) [id number] Gastroesophageal reflux disease without esophagitis Gastroesophageal Reflux Disease without Esophagitis Problem 02/26/2020 12:00:00 AM ES T ETHAN ([facility]) [id number] Essential hypertension Essential Hypertension Problem 02/26/2020 12:00:00 AM EST ETHAN ([facility]) [id number] Gastroesophageal reflux disease without esophagitis Gastroesophageal Reflux Disease without Esophagitis Problem 02/26/2020 12:00:00 AM ES T ETHAN ([facility]) [id number] Essential hypertension Essential Hypertension Problem 02/26/2020 12:00:00 AM EST ETHAN ([facility]) [id number] Gastroesophageal reflux disease without esophagitis Gastroesophageal Reflux Disease without Esophagitis Problem 02/26/2020 12:00:00 AM ES T ETHAN ([facility]) [id number] Essential hypertension Essential Hypertension Problem 02/26/2020 12:00:00 AM EST ETHAN ([facility]) [id number] Gastroesophageal reflux disease without esophagitis Gastroesophageal Reflux Disease without Esophagitis Problem 02/26/2020 12:00:00 AM ES T ETHAN ([facility]) [id number] Essential hypertension Essential Hypertension Problem 02/26/2020 12:00:00 AM EST ETHAN ([facility]) [id number] Gastroesophageal reflux disease without esophagitis Gastroesophageal Reflux Disease without Esophagitis Problem 02/26/2020 12:00:00 AM ES T ETHAN ([facility]) [id number] Essential hypertension Essential Hypertension Problem 02/26/2020 12:00:00 AM EST ETHAN ([facility]) [id number] Gastroesophageal reflux disease without esophagitis Gastroesophageal Reflux Disease without Esophagitis Problem 02/26/2020 12:00:00 AM ERNESTO LONG ([facility]) [id number] Essential hypertension Essential Hypertension Problem 02/26/2020 12:00:00 AM EST ETHAN ([facility]) [id number] Gastroesophageal reflux disease without esophagitis Gastroesophageal Reflux Disease without Esophagitis Problem 02/26/2020 12:00:00 AM ERNESTO LONG ([facility]) [id number] Essential hypertension Essential Hypertension Problem 02/26/2020 12:00:00 AM EST ETHAN ([facility]) [id number] Depressive disorder Depressive Disorder Problem 1 04:44:15 PM EDT ETHAN ([facility]) [id number] Depressive disorder Depressive Disorder Problem 1 04:44:15 PM EDT ETHAN ([facility]) [id number] Depressive disorder Depressive Disorder Problem 1 04:44:15 PM EDT ETHAN ([facility]) [id number] Depressive disorder Depressive Disorder Problem 1 04:44:15 PM EDT ETHAN ([facility]) [id number] Depressive disorder Depressive Disorder Problem 1 04:44:15 PM EDT ETHAN ([facility]) [id number] Depressive disorder Depressive Disorder Problem 1 04:44:15 PM EDT ETHAN ([facility]) [id number] Depressive disorder Depressive Disorder Problem 1 04:44:15 PM EDT ETHAN ([facility]) [id number] Depressive disorder Depressive Disorder Problem 1 04:44:15 PM EDT ETHAN ([facility]) [id number] Depressive disorder Depressive Disorder Problem 1 04:44:15 PM EDT ETHAN ([facility]) [id number] Depressive disorder Depressive Disorder Problem 1 04:44:15 PM EDT ETHAN ([facility]) [id number] Depressive disorder Depressive Disorder Problem 1 04:44:15 PM EDT ETHAN ([facility]) [id number] Depressive disorder Depressive Disorder Problem 1 04:44:15 PM EDT ETHAN ([facility]) [id number] Depressive disorder Depressive Disorder Problem 1 04:44:15 PM EDT ETHAN ([facility]) [id number] Depressive disorder Depressive Disorder Problem 1 04:44:15 PM EDT ETHAN ([facility]) [id number] Depressive disorder Depressive Disorder Problem 1 04:44:15 PM EDT ETHAN ([facility]) [id number] SNOMED CT Concept SNOMED CT Concept Problem 12/24 04:44:15 PM EDT ETHAN ([facility] [place] [id number] Depressive disorder Depressive Disorder Problem 1 04:44:15 PM EDT ETHAN ([facility]) 530.81 Gastro-esophageal reflux disease without esophagitis Gastro-esophageal reflux disease without esophagitis 12/24/2019 10:52:08 AM ED T [facility] [id number] Finding of esophagus Finding of Esophagus Problem 12/24/2019 12:00:00 AM EDT - 04/29/2020 12:00:00 AM EST ETHAN ([facility] [place]) [id number] Finding of esophagus Finding of Esophagus Problem 12/24/2019 12:00:00 AM EDT - 04/29/2020 12:00:00 AM EST ETHAN ([facility] [place]) [id number] Finding of esophagus Finding of Esophagus Problem 12/24/2019 12:00:00 AM EDT - 04/29/2020 12:00:00 AM EST ETHAN ([facility] [place]) [id number] Finding of esophagus Finding of Esophagus Problem 12/24/2019 12:00:00 AM EDT - 04/29/2020 12:00:00 AM EST ETHAN ([facility] [place] [facility]) [id number] Finding of esophagus Finding of Esophagus Problem 12/24/2019 12:00:00 AM EDT - 04/29/2020 12:00:00 AM EST ETHAN ([facility] [place]) [id number] Finding of esophagus Finding of Esophagus Problem 12/24/2019 12:00:00 AM EDT - 04/29/2020 12:00:00 AM EST ETHAN ([facility] [place] [facility]) [id number] Finding of esophagus Finding of Esophagus Problem 12/24/2019 12:00:00 AM EDT - 04/29/2020 12:00:00 AM EST ETHAN ([facility] [place] [facility]) [id number] Finding of esophagus Finding of Esophagus Problem 12/24/2019 12:00:00 AM EDT - 04/29/2020 12:00:00 AM EST ETHAN ([facility] [place]) [id number] Finding of esophagus Finding of Esophagus Problem 12/24/2019 12:00:00 AM EDT - 04/29/2020 12:00:00 AM EST ETHAN ([facility] [place]) [id number] Finding of esophagus Finding of Esophagus Problem 12/24/2019 12:00:00 AM EDT - 04/29/2020 12:00:00 AM EST ETHAN ([facility] [place]) [id number] Finding of esophagus Finding of Esophagus Problem 12/24/2019 12:00:00 AM EDT - 04/29/2020 12:00:00 AM EST ETHAN ([facility] [place]) [id number] Finding of esophagus Finding of Esophagus Problem 12/24/2019 12:00:00 AM EDT - 04/29/2020 12:00:00 AM EST ETHAN ([facility] [place]) 786.05 Dyspnea Dyspnea 12/17/2019 03:55:42 PM ED T [facility] 788.41 Increased frequency of urination Increased frequency o f urination 12/17/2019 03:55:42 PM EDT [facility] [id number] COVID-19 COVID-19 12/17/2019 03:55:42 PM ED T [facility] [id number] COVID-19 Covid-19 Problem 12/17/2019 12:0 0:00 AM EDT - 09/20/2020 12:00:00 AM EDT ETHAN ([facility] [place] [facility]) [id number] Dyspnea Dyspnea Problem 12/17/2019 12:00:00 AM ED T ETHAN ([facility]) [id number] COVID-19 Covid-19 Problem 12/17/2019 12:0 0:00 AM EDT - 09/20/2020 12:00:00 AM EDT ETHAN ([facility] [place]) [id number] Dyspnea Dyspnea Problem 12/17/2019 12:00:00 AM ED T ETHAN ([facility]) [id number] COVID-19 Covid-19 Problem 12/17/2019 12:0 0:00 AM EDT - 09/20/2020 12:00:00 AM EDT ETHAN ([facility] [place]) [id number] Dyspnea Dyspnea Problem 12/17/2019 12:00:00 AM ED T ETHAN ([facility]) [id number] COVID-19 Covid-19 Problem 12/17/2019 12:00:00 AM ED T ETHAN ([facility]) [id number] Dyspnea Dyspnea Problem 12/17/2019 12:00:00 AM ED T ETHAN ([facility]) [id number] COVID-19 Covid-19 Problem 12/17/2019 12:00:00 AM ED T ETHAN ([facility]) [id number] Dyspnea Dyspnea Problem 12/17/2019 12:00:00 AM ED T ETHAN ([facility]) [id number] COVID-19 Covid-19 Problem 12/17/2019 12:00:00 AM ED T ETHAN ([facility]) 786836450 Dyspnea Dyspnea Problem 12/17/2019 12:00:00 AM ED T ETHAN ([facility]) [id number] COVID-19 Covid-19 Problem 12/17/2019 12:00:00 AM ED T ETHAN ([facility]) [id number] Dyspnea Dyspnea Problem 12/17/2019 12:00:00 AM ED T ETHAN ([facility]) 822061578 COVID-19 Covid-19 Problem 12/17/2019 12:00:00 AM ED T ETHAN ([facility]) 154153617 Dyspnea Dyspnea Problem 12/17/2019 12:00:00 AM ED T ETHAN ([facility]) [id number] COVID-19 Covid-19 Problem 12/17/2019 12:00:00 AM ED T ETHAN ([facility]) [id number] Dyspnea Dyspnea Problem 12/17/2019 12:00:00 AM ED T ETHAN ([facility]) [id number] COVID-19 Covid-19 Problem 12/17/2019 12:00:00 AM ED T ERIE ([facility]) [id number] Dyspnea Dyspnea Problem 12/17/2019 12:00:00 AM ED T ERIE ([facility]) [id number] COVID-19 Covid-19 Problem 12/17/2019 12:00:00 AM ED T ETHAN ([facility]) [id number] Dyspnea Dyspnea Problem 12/17/2019 12:00:00 AM ED T ETHAN ([facility]) [id number] COVID-19 Covid-19 Problem 12/17/2019 12:00:00 AM ED T ERIE ([facility]) [id number] Dyspnea Dyspnea Problem 12/17/2019 12:00:00 AM ED T ERIE ([facility]) [id number] History and physical examination, pre-em ployment History and physical examination, pre-employment 11/19/2019 09:33:14 AM EDT [facility] Z76.89 Immunization status unknown Immunization status unknow n 11/19/2019 09:33:14 AM EDT [facility] V74.1 Encounter for screening for respiratory tuberculosis Encounter for screening for respiratory tuberculosis 11/19/2019 09:33:14 A M EDT [facility] V70.0 Encounter for general adult medical exam ination with abnormal findings Encounter for general adult medical examination with abnormal findings 11/19/2019 09:33:14 AM EDT [facility] [id number] SNOMED CT Concept SNOMED CT Concept Problem 11/18 12:00:00 AM EDT - 04/29/2020 12:00:00 AM MAGNO LONG ([facility] [place] [facility]) [id number] Procedure by method Procedure by Method Problem 0 11/19/2019 12:00:00 AM EDT - 04/29/2020 12:00:00 AM MAGNO LONG ([facility] [place]) [id number] Finding of Mantoux test Finding of Mantoux Test Proble m 11/19/2019 12:00:00 AM EDT - 04/29/2020 12:00:00 AM MAGNO LONG ([facility]) [id number] SNOMED CT Concept SNOMED CT Concept Problem 11/18 12:00:00 AM EDT - 04/29/2020 12:00:00 AM EST ETHAN ([facility]) [id number] Procedure by method Procedure by Method Problem 0 11/19/2019 12:00:00 AM EDT - 04/29/2020 12:00:00 AM EST ETHAN ([facility] [place] [facility]) [id number] Finding of Mantoux test Finding of Mantoux Test Proble m 11/19/2019 12:00:00 AM EDT - 04/29/2020 12:00:00 AM EST ETHAN ([facility]) [id number] SNOMED CT Concept SNOMED CT Concept Problem 11/18 12:00:00 AM EDT - 04/29/2020 12:00:00 AM EST ETHAN ([facility]) [id number] Procedure by method Procedure by Method Problem 0 11/19/2019 12:00:00 AM EDT - 04/29/2020 12:00:00 AM EST ETHAN ([facility] [place] [facility]) [id number] Finding of Mantoux test Finding of Mantoux Test Proble 11/19/2019 12:00:00 AM EDT - 04/29/2020 12:00:00 AM EST ETHAN ([facility]) [id number] SNOMED CT Concept SNOMED CT Concept Problem 11/18 12:00:00 AM EDT - 04/29/2020 12:00:00 AM EST ETHAN ([facility]) [id number] Procedure by method Procedure by Method Problem 0 11/19/2019 12:00:00 AM EDT - 04/29/2020 12:00:00 AM EST ETHAN ([facility] [place] [facility]) [id number] Finding of Mantoux test Finding of Mantoux Test Proble 11/19/2019 12:00:00 AM EDT - 04/29/2020 12:00:00 AM EST ETHAN ([facility]) [id number] SNOMED CT Concept SNOMED CT Concept Problem 11/18 12:00:00 AM EDT - 04/29/2020 12:00:00 AM EST ETHAN ([facility] [place] [facility]) [id number] Procedure by method Procedure by Method Problem 0 11/19/2019 12:00:00 AM EDT - 04/29/2020 12:00:00 AM EST ETHAN ([facility] [place] [facility]) [id number] Finding of Mantoux test Finding of Mantoux Test Proble 11/19/2019 12:00:00 AM EDT - 04/29/2020 12:00:00 AM EST ETHAN ([facility]) [id number] SNOMED CT Concept SNOMED CT Concept Problem 11/18 12:00:00 AM EDT - 04/29/2020 12:00:00 AM EST ETHAN ([facility] [place] [facility]) [id number] Procedure by method Procedure by Method Problem 0 11/19/2019 12:00:00 AM EDT - 04/29/2020 12:00:00 AM EST ETHAN ([facility]) [id number] Finding of Mantoux test Finding of Mantoux Test Proble 11/19/2019 12:00:00 AM EDT - 04/29/2020 12:00:00 AM EST ETHAN ([facility]) [id number] SNOMED CT Concept SNOMED CT Concept Problem 11/18 12:00:00 AM EDT - 04/29/2020 12:00:00 AM EST ETHAN ([facility]) [id number] Procedure by method Procedure by Method Problem 0 11/19/2019 12:00:00 AM EDT - 04/29/2020 12:00:00 AM EST ETHAN ([facility] [place] [facility]) [id number] Finding of Mantoux test Finding of Mantoux Test Proble 11/19/2019 12:00:00 AM EDT - 04/29/2020 12:00:00 AM EST ETHAN ([facility]) [id number] SNOMED CT Concept SNOMED CT Concept Problem 11/18 12:00:00 AM EDT - 04/29/2020 12:00:00 AM EST ETHAN ([facility] [place] [facility]) [id number] Procedure by method Procedure by Method Problem 0 11/19/2019 12:00:00 AM EDT - 04/29/2020 12:00:00 AM EST ETHAN ([facility] [place] [facility]) [id number] Finding of Mantoux test Finding of Mantoux Test Proble 11/19/2019 12:00:00 AM EDT - 04/29/2020 12:00:00 AM EST ETHAN ([facility]) [id number] SNOMED CT Concept SNOMED CT Concept Problem 11/18 12:00:00 AM EDT - 04/29/2020 12:00:00 AM EST ETHAN ([facility] [place] [facility]) [id number] Procedure by method Procedure by Method Problem 0 11/19/2019 12:00:00 AM EDT - 04/29/2020 12:00:00 AM EST ETHAN ([facility]) [id number] Finding of Mantoux test Finding of Mantoux Test Proble 11/19/2019 12:00:00 AM EDT - 04/29/2020 12:00:00 AM EST ETHAN ([facility]) [id number] SNOMED CT Concept SNOMED CT Concept Problem 11/18 12:00:00 AM EDT - 04/29/2020 12:00:00 AM EST ETHAN ([facility]) [id number] Procedure by method Procedure by Method Problem 0 11/19/2019 12:00:00 AM EDT - 04/29/2020 12:00:00 AM EST ETHAN ([facility]) [id number] Finding of Mantoux test Finding of Mantoux Test Proble 11/19/2019 12:00:00 AM EDT - 04/29/2020 12:00:00 AM EST ETHAN ([facility]) [id number] SNOMED CT Concept SNOMED CT Concept Problem 11/18 12:00:00 AM EDT - 04/29/2020 12:00:00 AM EST ETHAN ([facility]) [id number] Procedure by method Procedure by Method Problem 0 11/19/2019 12:00:00 AM EDT - 04/29/2020 12:00:00 AM EST ETHAN ([facility]) [id number] Finding of Mantoux test Finding of Mantoux Test Proble 11/19/2019 12:00:00 AM EDT - 04/29/2020 12:00:00 AM MAGNO LONG ([facility]) [id number] SNOMED CT Concept SNOMED CT Concept Problem 11/18 12:00:00 AM EDT - 04/29/2020 12:00:00 AM MAGNO LONG ([facility]) [id number] Procedure by method Procedure by Method Problem 0 11/19/2019 12:00:00 AM EDT - 04/29/2020 12:00:00 AM EST ETHAN ([facility]) [id number] Finding of Mantoux test Finding of Mantoux Test Proble m 11/19/2019 12:00:00 AM EDT - 04/29/2020 12:00:00 AM MAGNO ETHAN ([facility]) [id number] 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 Problem 10/31/2019 12:00:00 AM EDT - 04/29/2020 12:00:00 AM EST ETHAN ([facility]) [id number] 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 Problem 10/31/2019 12:00:00 AM EDT - 04/29/2020 12:00:00 AM EST ETHAN ([facility]) [id number] 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 Problem 10/31/2019 12:00:00 AM EDT - 04/29/2020 12:00:00 AM EST ETHAN ([facility]) 393150614 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 Problem 10/31/2019 12:00:00 AM EDT - 04/29/2020 12:00:00 AM EST ETHAN ([facility]) [id number] 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 Problem 10/31/2019 12:00:00 AM EDT - 04/29/2020 12:00:00 AM EST ETHAN ([facility]) [id number] 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 Problem 10/31/2019 12:00:00 AM EDT - 04/29/2020 12:00:00 AM EST ETHAN ([facility] [place] [facility]) [id number] 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 Problem 10/31/2019 12:00:00 AM EDT - 04/29/2020 12:00:00 AM EST ETHAN ([facility] [place] [facility]) [id number] 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 Problem 10/31/2019 12:00:00 AM EDT - 04/29/2020 12:00:00 AM EST ETHAN ([facility] [place] [facility]) [id number] 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 Problem 10/31/2019 12:00:00 AM EDT - 04/29/2020 12:00:00 AM EST ETHAN ([facility]) [id number] 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 Problem 10/31/2019 12:00:00 AM EDT - 04/29/2020 12:00:00 AM EST ETHAN ([facility] [place] [facility]) [id number] Dental arch length loss secondary to den daamris caries Dental Arch Length Loss Secondary to Dental Caries Problem 10/31/2019 12:00:00 AM EDT - 04/29/2020 12:00:00 AM EST ETHAN ([facility] [place] [facility]) [id number] 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 Problem 10/31/2019 12:00:00 AM EDT - 04/29/2020 12:00:00 AM MAGNO ETHAN ([facility] [place] [facility]) [id number] Breast neoplasm screening status Breast Neoplasm Screening Status Problem 09/30/2019 12:00:00 AM EDT - 04/29/2020 12:00:00 AM ERNESTO LONG ([facility]) [id number] SNOMED CT Concept SNOMED CT Concept Problem 09/29 12:00:00 AM EDT - 02/26/2020 12:00:00 AM MAGNO ETHAN ([facility] [place]) [id number] Screening mammography Screening Mammography Problem 09/30/2019 12:00:00 AM EDT - 02/26/2020 12:00:00 AM MAGNO LONG ([facility] [place] [facility]) [id number] Breast neoplasm screening status Breast Neoplasm Screening Status Problem 09/30/2019 12:00:00 AM EDT - 04/29/2020 12:00:00 AM ERNESTO LONG ([facility]) [id number] SNOMED CT Concept SNOMED CT Concept Problem 09/29 12:00:00 AM EDT - 02/26/2020 12:00:00 AM EST ETHAN ([facility] [place]) [id number] Screening mammography Screening Mammography Problem 09/30/2019 12:00:00 AM EDT - 02/26/2020 12:00:00 AM EST ETHAN ([facility] [place] [facility]) [id number] Breast neoplasm screening status Breast Neoplasm Screening Status Problem 09/30/2019 12:00:00 AM EDT - 04/29/2020 12:00:00 AM ERNESTO LONG ([facility]) [id number] SNOMED CT Concept SNOMED CT Concept Problem 09/29 12:00:00 AM EDT - 02/26/2020 12:00:00 AM EST ETHAN ([facility] [place] [facility]) [id number] Screening mammography Screening Mammography Problem 09/30/2019 12:00:00 AM EDT - 02/26/2020 12:00:00 AM EST ETHAN ([facility] [place] [facility]) [id number] Breast neoplasm screening status Breast Neoplasm Screening Status Problem 09/30/2019 12:00:00 AM EDT - 04/29/2020 12:00:00 AM ERNESTO LONG ([facility]) [id number] SNOMED CT Concept SNOMED CT Concept Problem 09/29 12:00:00 AM EDT - 02/26/2020 12:00:00 AM EST ETHAN ([facility] [place] [facility]) [id number] Screening mammography Screening Mammography Problem 09/30/2019 12:00:00 AM EDT - 02/26/2020 12:00:00 AM EST ETHAN ([facility] [place] [facility]) [id number] Breast neoplasm screening status Breast Neoplasm Screening Status Problem 09/30/2019 12:00:00 AM EDT - 04/29/2020 12:00:00 AM ERNESTO LONG ([facility]) [id number] SNOMED CT Concept SNOMED CT Concept Problem 09/29 12:00:00 AM EDT - 02/26/2020 12:00:00 AM EST ETHAN ([facility] [place] [facility]) [id number] Screening mammography Screening Mammography Problem 09/30/2019 12:00:00 AM EDT - 02/26/2020 12:00:00 AM EST ETHAN ([facility] [place] [facility]) [id number] Breast neoplasm screening status Breast Neoplasm Screening Status Problem 09/30/2019 12:00:00 AM EDT - 04/29/2020 12:00:00 AM ERNESTO LONG ([facility]) [id number] SNOMED CT Concept SNOMED CT Concept Problem 09/29 12:00:00 AM EDT - 02/26/2020 12:00:00 AM EST ETHAN ([facility]) [id number] Screening mammography Screening Mammography Problem 09/30/2019 12:00:00 AM EDT - 02/26/2020 12:00:00 AM EST ETHAN ([facility] [place] [facility]) [id number] Breast neoplasm screening status Breast Neoplasm Screening Status Problem 09/30/2019 12:00:00 AM EDT - 04/29/2020 12:00:00 AM ERNESTO LONG ([facility]) [id number] SNOMED CT Concept SNOMED CT Concept Problem 09/29 12:00:00 AM EDT - 02/26/2020 12:00:00 AM EST ETHAN ([facility] [place] [facility]) [id number] Screening mammography Screening Mammography Problem 09/30/2019 12:00:00 AM EDT - 02/26/2020 12:00:00 AM EST ETHAN ([facility] [place] [facility]) 566955038 Breast neoplasm screening status Breast Neoplasm Screening Status Problem 09/30/2019 12:00:00 AM EDT - 04/29/2020 12:00:00 AM ERNESTO LONG ([facility]) [id number] SNOMED CT Concept SNOMED CT Concept Problem 09/29 12:00:00 AM EDT - 02/26/2020 12:00:00 AM EST ETHAN ([facility] [place] [facility]) [id number] Screening mammography Screening Mammography Problem 09/30/2019 12:00:00 AM EDT - 02/26/2020 12:00:00 AM EST ETHAN ([facility] [place] [facility]) [id number] Breast neoplasm screening status Breast Neoplasm Screening Status Problem 09/30/2019 12:00:00 AM EDT - 04/29/2020 12:00:00 AM ERNESTO LONG ([facility]) [id number] SNOMED CT Concept SNOMED CT Concept Problem 09/29 12:00:00 AM EDT - 02/26/2020 12:00:00 AM EST ETHAN ([facility] [place]) [id number] Screening mammography Screening Mammography Problem 09/30/2019 12:00:00 AM EDT - 02/26/2020 12:00:00 AM EST ETHAN ([facility] [place] [facility]) [id number] Breast neoplasm screening status Breast Neoplasm Screening Status Problem 09/30/2019 12:00:00 AM EDT - 04/29/2020 12:00:00 AM ERNESTO LONG ([facility]) [id number] SNOMED CT Concept SNOMED CT Concept Problem 09/29 12:00:00 AM EDT - 02/26/2020 12:00:00 AM EST ETHAN ([facility] [place] [facility]) [id number] Screening mammography Screening Mammography Problem 09/30/2019 12:00:00 AM EDT - 02/26/2020 12:00:00 AM EST ETHAN ([facility] [place] [facility]) [id number] Breast neoplasm screening status Breast Neoplasm Screening Status Problem 09/30/2019 12:00:00 AM EDT - 04/29/2020 12:00:00 AM ERNESTO LONG ([facility]) [id number] SNOMED CT Concept SNOMED CT Concept Problem 09/29 12:00:00 AM EDT - 02/26/2020 12:00:00 AM EST ETHAN ([facility] [place] [facility]) [id number] Screening mammography Screening Mammography Problem 09/30/2019 12:00:00 AM EDT - 02/26/2020 12:00:00 AM EST ETHAN ([facility] [place] [facility]) [id number] Breast neoplasm screening status Breast Neoplasm Screening Status Problem 09/30/2019 12:00:00 AM EDT - 04/29/2020 12:00:00 AM ERNESTO LONG ([facility]) [id number] SNOMED CT Concept SNOMED CT Concept Problem 09/29 12:00:00 AM EDT - 02/26/2020 12:00:00 AM EST ETHAN ([facility] [place]) [id number] Screening mammography Screening Mammography Problem 09/30/2019 12:00:00 AM EDT - 02/26/2020 12:00:00 AM EST ETHAN ([facility] [place]) [id number] SNOMED CT Concept SNOMED CT Concept Problem 09/29 12:00:00 AM EDT - 02/26/2020 12:00:00 AM EST ETHAN ([facility] [place] [facility]) [id number] Screening mammography Screening Mammography Problem 09/30/2019 12:00:00 AM EDT - 02/26/2020 12:00:00 AM EST ETHAN ([facility] [place] [facility]) [id number] SNOMED CT Concept SNOMED CT Concept Problem 09/29 12:00:00 AM EDT - 02/26/2020 12:00:00 AM EST ETHAN ([facility]) [id number] Screening mammography Screening Mammography Problem 09/30/2019 12:00:00 AM EDT - 02/26/2020 12:00:00 AM EST ETHAN ([facility] [place] [facility]) [id number] SNOMED CT Concept SNOMED CT Concept Problem 09/29 12:00:00 AM EDT - 02/26/2020 12:00:00 AM EST ETHAN ([facility]) [id number] Screening mammography Screening Mammography Problem 09/30/2019 12:00:00 AM EDT - 02/26/2020 12:00:00 AM EST ETHAN ([facility]) [id number] Acute cystitis Acute Cystitis Problem 09/25/2019 12:00:00 AM EDT - 02/26/2020 12:00:00 AM EST ETHAN ([facility]) [id number] Acute cystitis Acute Cystitis Problem 09/25/2019 12:00:00 AM EDT - 02/26/2020 12:00:00 AM EST ETHAN ([facility]) [id number] Acute cystitis Acute Cystitis Problem 09/25/2019 12:00:00 AM EDT - 02/26/2020 12:00:00 AM EST ETHAN ([facility]) [id number] Acute cystitis Acute Cystitis Problem 09/25/2019 12:00:00 AM EDT - 02/26/2020 12:00:00 AM EST ETHAN ([facility]) [id number] Acute cystitis Acute Cystitis Problem 09/25/2019 12:00:00 AM EDT - 02/26/2020 12:00:00 AM EST ETHAN ([facility]) [id number] Acute cystitis Acute Cystitis Problem 09/25/2019 12:00:00 AM EDT - 02/26/2020 12:00:00 AM EST ETHAN ([facility]) [id number] Acute cystitis Acute Cystitis Problem 09/25/2019 12:00:00 AM EDT - 02/26/2020 12:00:00 AM EST ETHAN ([facility]) [id number] Acute cystitis Acute Cystitis Problem 09/25/2019 12:00:00 AM EDT - 02/26/2020 12:00:00 AM EST ETHAN ([facility]) [id number] Acute cystitis Acute Cystitis Problem 09/25/2019 12:00:00 AM EDT - 02/26/2020 12:00:00 AM EST ETHAN ([facility]) [id number] Acute cystitis Acute Cystitis Problem 09/25/2019 12:00:00 AM EDT - 02/26/2020 12:00:00 AM EST ETHAN ([facility]) [id number] Acute cystitis Acute Cystitis Problem 09/25/2019 12:00:00 AM EDT - 02/26/2020 12:00:00 AM EST ETHAN ([facility]) [id number] Acute cystitis Acute Cystitis Problem 09/25/2019 12:00:00 AM EDT - 02/26/2020 12:00:00 AM EST ETHAN ([facility]) [id number] Acute cystitis Acute Cystitis Problem 09/25/2019 12:00:00 AM EDT - 02/26/2020 12:00:00 AM EST ETHAN ([facility]) [id number] Acute cystitis Acute Cystitis Problem 09/25/2019 12:00:00 AM EDT - 02/26/2020 12:00:00 AM EST ETHAN ([facility]) [id number] Acute cystitis Acute Cystitis Problem 09/25/2019 12:00:00 AM EDT - 02/26/2020 12:00:00 AM EST ETHAN ([facility]) [id number] 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 09/22/2019 12:00:00 AM EDT - 03/31/2020 12:00:00 AM EST ETHAN ([facility]) [id number] 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 09/22/2019 12:00:00 AM EDT - 03/31/2020 12:00:00 AM EST ETHAN ([facility]) [id number] 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 09/22/2019 12:00:00 AM EDT - 03/31/2020 12:00:00 AM EST ETHAN ([facility]) [id number] 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 09/22/2019 12:00:00 AM EDT - 03/31/2020 12:00:00 AM EST ETHAN ([facility]) [id number] 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 09/22/2019 12:00:00 AM EDT - 03/31/2020 12:00:00 AM EST ETHAN ([facility]) [id number] 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 09/22/2019 12:00:00 AM EDT - 03/31/2020 12:00:00 AM EST ETHAN ([facility]) [id number] 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 09/22/2019 12:00:00 AM EDT - 03/31/2020 12:00:00 AM EST ETHAN ([facility]) [id number] 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 09/22/2019 12:00:00 AM EDT - 03/31/2020 12:00:00 AM EST ETHAN ([facility]) [id number] 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 09/22/2019 12:00:00 AM EDT - 03/31/2020 12:00:00 AM EST ETHAN ([facility]) [id number] 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 09/22/2019 12:00:00 AM EDT - 03/31/2020 12:00:00 AM EST ETHAN ([facility]) [id number] 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 09/22/2019 12:00:00 AM EDT - 03/31/2020 12:00:00 AM EST ETHAN ([facility]) [id number] 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 09/22/2019 12:00:00 AM EDT - 03/31/2020 12:00:00 AM EST ETHAN ([facility]) [id number] 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 09/22/2019 12:00:00 AM EDT - 03/31/2020 12:00:00 AM EST ETHAN ([facility]) [id number] Evaluation finding Evaluation Finding Problem 12:00:00 AM EDT - 04/29/2020 12:00:00 AM EST ETHAN ([facility]) [id number] Evaluation finding Evaluation Finding Problem 12:00:00 AM EDT - 04/29/2020 12:00:00 AM EST ETHAN ([facility]) [id number] Evaluation finding Evaluation Finding Problem 12:00:00 AM EDT - 04/29/2020 12:00:00 AM EST ETHAN ([facility]) [id number] Evaluation finding Evaluation Finding Problem 12:00:00 AM EDT - 04/29/2020 12:00:00 AM EST ETHAN ([facility]) [id number] Evaluation finding Evaluation Finding Problem 12:00:00 AM EDT - 04/29/2020 12:00:00 AM EST ETHAN ([facility]) [id number] Evaluation finding Evaluation Finding Problem 12:00:00 AM EDT - 04/29/2020 12:00:00 AM EST ETHAN ([facility]) [id number] Evaluation finding Evaluation Finding Problem 12:00:00 AM EDT - 04/29/2020 12:00:00 AM EST ETHAN ([facility]) [id number] Evaluation finding Evaluation Finding Problem 12:00:00 AM EDT - 04/29/2020 12:00:00 AM EST ETHAN ([facility]) [id number] Evaluation finding Evaluation Finding Problem 12:00:00 AM EDT - 04/29/2020 12:00:00 AM EST ETHAN ([facility]) [id number] Evaluation finding Evaluation Finding Problem 12:00:00 AM EDT - 04/29/2020 12:00:00 AM EST ETHAN ([facility]) [id number] Evaluation finding Evaluation Finding Problem 12:00:00 AM EDT - 04/29/2020 12:00:00 AM EST ETHAN ([facility]) [id number] Evaluation finding Evaluation Finding Problem 12:00:00 AM EDT - 04/29/2020 12:00:00 AM EST ETHAN ([facility]) [id number] Chest pain Chest Pain Problem 05/07/2019 12:0 0:00 AM EST - 02/26/2020 12:00:00 AM EST ETHAN ([facility]) [id number] Chest pain Chest Pain Problem 05/07/2019 12:0 0:00 AM EST - 02/26/2020 12:00:00 AM EST ETHAN ([facility]) [id number] Chest pain Chest Pain Problem 05/07/2019 12:0 0:00 AM EST - 02/26/2020 12:00:00 AM EST ETHAN ([facility]) [id number] Chest pain Chest Pain Problem 05/07/2019 12:0 0:00 AM EST - 02/26/2020 12:00:00 AM EST ETHAN ([facility]) [id number] Chest pain Chest Pain Problem 05/07/2019 12:0 0:00 AM EST - 02/26/2020 12:00:00 AM EST ETHAN ([facility]) [id number] Chest pain Chest Pain Problem 05/07/2019 12:0 0:00 AM EST - 02/26/2020 12:00:00 AM EST ETHAN ([facility]) [id number] Chest pain Chest Pain Problem 05/07/2019 12:0 0:00 AM EST - 02/26/2020 12:00:00 AM EST ETHAN ([facility]) [id number] Chest pain Chest Pain Problem 05/07/2019 12:0 0:00 AM EST - 02/26/2020 12:00:00 AM EST ETHAN ([facility]) [id number] Chest pain Chest Pain Problem 05/07/2019 12:0 0:00 AM EST - 02/26/2020 12:00:00 AM EST ETHAN ([facility]) [id number] Chest pain Chest Pain Problem 05/07/2019 12:0 0:00 AM EST - 02/26/2020 12:00:00 AM EST ETHAN ([facility]) [id number] Chest pain Chest Pain Problem 05/07/2019 12:0 0:00 AM EST - 02/26/2020 12:00:00 AM EST ETHAN ([facility]) [id number] Chest pain Chest Pain Problem 05/07/2019 12:0 0:00 AM EST - 02/26/2020 12:00:00 AM EST ETHAN ([facility]) [id number] Chest pain Chest Pain Problem 05/07/2019 12:0 0:00 AM EST - 02/26/2020 12:00:00 AM EST ETHAN ([facility]) [id number] Chest pain Chest Pain Problem 05/07/2019 12:0 0:00 AM EST - 02/26/2020 12:00:00 AM EST ETHAN ([facility]) [id number] Chest pain Chest Pain Problem 05/07/2019 12:0 0:00 AM EST - 02/26/2020 12:00:00 AM EST ETHAN ([facility]) [id number] Influenza vaccine needed Influenza Vaccine Needed Pro blem 04/19/2018 12:00:00 AM EST - 02/26/2020 12:00:00 AM EST ETHAN ([facility]) [id number] Influenza vaccine needed Influenza Vaccine Needed Pro blem 04/19/2018 12:00:00 AM EST - 02/26/2020 12:00:00 AM EST ETHAN ([facility]) [id number] Influenza vaccine needed Influenza Vaccine Needed Pro blem 04/19/2018 12:00:00 AM EST - 02/26/2020 12:00:00 AM EST ETHAN ([facility]) [id number] Influenza vaccine needed Influenza Vaccine Needed Pro blem 04/19/2018 12:00:00 AM EST - 02/26/2020 12:00:00 AM EST ETHAN ([facility]) [id number] Influenza vaccine needed Influenza Vaccine Needed Pro blem 04/19/2018 12:00:00 AM EST - 02/26/2020 12:00:00 AM EST ETHAN ([facility]) [id number] Influenza vaccine needed Influenza Vaccine Needed Pro blem 04/19/2018 12:00:00 AM EST - 02/26/2020 12:00:00 AM EST ETHAN ([facility]) [id number] Influenza vaccine needed Influenza Vaccine Needed Pro blem 04/19/2018 12:00:00 AM EST - 02/26/2020 12:00:00 AM EST ETHAN ([facility]) [id number] Influenza vaccine needed Influenza Vaccine Needed Pro blem 04/19/2018 12:00:00 AM EST - 02/26/2020 12:00:00 AM EST ETHAN ([facility]) [id number] Influenza vaccine needed Influenza Vaccine Needed Pro blem 04/19/2018 12:00:00 AM EST - 02/26/2020 12:00:00 AM EST ETHAN ([facility]) [id number] Influenza vaccine needed Influenza Vaccine Needed Pro blem 04/19/2018 12:00:00 AM EST - 02/26/2020 12:00:00 AM EST ETHAN ([facility]) [id number] Influenza vaccine needed Influenza Vaccine Needed Pro blem 04/19/2018 12:00:00 AM EST - 02/26/2020 12:00:00 AM EST ETHAN ([facility]) [id number] Influenza vaccine needed Influenza Vaccine Needed Pro blem 04/19/2018 12:00:00 AM EST - 02/26/2020 12:00:00 AM EST ETHAN ([facility]) [id number] Influenza vaccine needed Influenza Vaccine Needed Pro blem 04/19/2018 12:00:00 AM EST - 02/26/2020 12:00:00 AM EST ETHAN ([facility]) [id number] Influenza vaccine needed Influenza Vaccine Needed Pro blem 04/19/2018 12:00:00 AM EST - 02/26/2020 12:00:00 AM EST ETHAN ([facility]) [id number] Influenza vaccine needed Influenza Vaccine Needed Pro blem 04/19/2018 12:00:00 AM EST - 02/26/2020 12:00:00 AM EST ETHAN ([facility]) [id number] Anemia Anemia Problem 11/14/2017 12:0 0:00 AM EDT - 02/26/2020 12:00:00 AM EST ETHAN ([facility]) [id number] Anemia Anemia Problem 11/14/2017 12:0 0:00 AM EDT - 02/26/2020 12:00:00 AM EST ETHAN ([facility]) [id number] Anemia Anemia Problem 11/14/2017 12:0 0:00 AM EDT - 02/26/2020 12:00:00 AM EST ETHAN ([facility]) [id number] Anemia Anemia Problem 11/14/2017 12:0 0:00 AM EDT - 02/26/2020 12:00:00 AM EST ETHAN ([facility]) [id number] Anemia Anemia Problem 11/14/2017 12:0 0:00 AM EDT - 02/26/2020 12:00:00 AM EST ETHAN ([facility]) [id number] Anemia Anemia Problem 11/14/2017 12:0 0:00 AM EDT - 02/26/2020 12:00:00 AM EST ETHAN ([facility]) [id number] Anemia Anemia Problem 11/14/2017 12:0 0:00 AM EDT - 02/26/2020 12:00:00 AM EST ETHAN ([facility]) [id number] Anemia Anemia Problem 11/14/2017 12:0 0:00 AM EDT - 02/26/2020 12:00:00 AM EST ETHAN ([facility]) [id number] Anemia Anemia Problem 11/14/2017 12:0 0:00 AM EDT - 02/26/2020 12:00:00 AM EST ETHAN ([facility]) [id number] Anemia Anemia Problem 11/14/2017 12:0 0:00 AM EDT - 02/26/2020 12:00:00 AM EST ETHAN ([facility]) [id number] Anemia Anemia Problem 11/14/2017 12:0 0:00 AM EDT - 02/26/2020 12:00:00 AM EST ETHAN ([facility]) [id number] Anemia Anemia Problem 11/14/2017 12:0 0:00 AM EDT - 02/26/2020 12:00:00 AM EST ETHAN ([facility]) [id number] Anemia Anemia Problem 11/14/2017 12:0 0:00 AM EDT - 02/26/2020 12:00:00 AM EST ETHAN ([facility]) [id number] Anemia Anemia Problem 11/14/2017 12:0 0:00 AM EDT - 02/26/2020 12:00:00 AM EST ETHAN ([facility]) [id number] Anemia Anemia Problem 11/14/2017 12:0 0:00 AM EDT - 02/26/2020 12:00:00 AM EST ETHAN ([facility]) [id number] Clinical finding Clinical Finding Problem 018 12:00:00 AM EST - 02/26/2020 12:00:00 AM EST EHTAN ([facility]) [id number] Clinical finding Clinical Finding Problem 018 12:00:00 AM EST - 02/26/2020 12:00:00 AM EST ETHAN ([facility]) [id number] Clinical finding Clinical Finding Problem 018 12:00:00 AM EST - 02/26/2020 12:00:00 AM EST ETHAN ([facility]) [id number] Clinical finding Clinical Finding Problem 018 12:00:00 AM EST - 02/26/2020 12:00:00 AM EST ETHAN ([facility]) [id number] Clinical finding Clinical Finding Problem 018 12:00:00 AM EST - 02/26/2020 12:00:00 AM EST ETHAN ([facility]) [id number] Clinical finding Clinical Finding Problem 018 12:00:00 AM EST - 02/26/2020 12:00:00 AM EST ETHAN ([facility]) [id number] Clinical finding Clinical Finding Problem 018 12:00:00 AM EST - 02/26/2020 12:00:00 AM EST ETHAN ([facility]) [id number] Clinical finding Clinical Finding Problem 018 12:00:00 AM EST - 02/26/2020 12:00:00 AM EST ETHAN ([facility]) [id number] Clinical finding Clinical Finding Problem 018 12:00:00 AM EST - 02/26/2020 12:00:00 AM EST ETHAN ([facility]) [id number] Clinical finding Clinical Finding Problem 018 12:00:00 AM EST - 02/26/2020 12:00:00 AM EST ETHAN ([facility]) [id number] Clinical finding Clinical Finding Problem 018 12:00:00 AM EST - 02/26/2020 12:00:00 AM EST ETHAN ([facility]) [id number] Clinical finding Clinical Finding Problem 018 12:00:00 AM EST - 02/26/2020 12:00:00 AM EST ETHAN ([facility]) [id number] Clinical finding Clinical Finding Problem 018 12:00:00 AM EST - 02/26/2020 12:00:00 AM EST ETHAN ([facility]) [id number] Clinical finding Clinical Finding Problem 018 12:00:00 AM EST - 02/26/2020 12:00:00 AM EST ETHAN ([facility]) [id number] Clinical finding Clinical Finding Problem 018 12:00:00 AM EST - 02/26/2020 12:00:00 AM EST ETHAN ([facility]) [id number] SNOMED CT Concept SNOMED CT Concept Problem 02/12 12:00:00 AM EST - 02/26/2020 12:00:00 AM EST ETHAN ([facility]) [id number] Screening for malignant neoplasm of cerv ix Screening for Malignant Neoplasm of Cervix Problem 02/12/2013 12:00:00 AM EST - 02/26/2020 12:00:00 AM EST ETHAN ([facility]) [id number] SNOM[address] Concept SNOMED CT Concept Problem 02/12 12:00:00 AM EST - 02/26/2020 12:00:00 AM EST ETHAN ([facility]) [id number] Screening for malignant neoplasm of cerv ix Screening for Malignant Neoplasm of Cervix Problem 02/12/2013 12:00:00 AM EST - 02/26/2020 12:00:00 AM EST ETHAN ([facility]) [id number] SNOMED CT Concept SNOMED CT Concept Problem 02/12 12:00:00 AM EST - 02/26/2020 12:00:00 AM EST ETHAN ([facility]) [id number] Screening for malignant neoplasm of cerv ix Screening for Malignant Neoplasm of Cervix Problem 02/12/2013 12:00:00 AM EST - 02/26/2020 12:00:00 AM EST ETHAN ([facility]) [id number] SNOMED CT Concept SNOMED CT Concept Problem 02/12 12:00:00 AM EST - 02/26/2020 12:00:00 AM EST ETHAN ([facility]) [id number] Screening for malignant neoplasm of cerv ix Screening for Malignant Neoplasm of Cervix Problem 02/12/2013 12:00:00 AM EST - 02/26/2020 12:00:00 AM EST ETHAN ([facility]) [id number] SNOMED CT Concept SNOMED CT Concept Problem 02/12 12:00:00 AM EST - 02/26/2020 12:00:00 AM EST ETHAN ([facility]) [id number] Screening for malignant neoplasm of cerv ix Screening for Malignant Neoplasm of Cervix Problem 02/12/2013 12:00:00 AM EST - 02/26/2020 12:00:00 AM EST ETHAN ([facility]) [id number] SNOMED CT Concept SNOMED CT Concept Problem 02/12 12:00:00 AM EST - 02/26/2020 12:00:00 AM EST ETHAN ([facility]) [id number] Screening for malignant neoplasm of cerv ix Screening for Malignant Neoplasm of Cervix Problem 02/12/2013 12:00:00 AM EST - 02/26/2020 12:00:00 AM EST ETHAN ([facility]) [id number] SNOMED CT Concept SNOMED CT Concept Problem 02/12 12:00:00 AM EST - 02/26/2020 12:00:00 AM EST ETHAN ([facility]) [id number] Screening for malignant neoplasm of cerv ix Screening for Malignant Neoplasm of Cervix Problem 02/12/2013 12:00:00 AM EST - 02/26/2020 12:00:00 AM EST ETHAN ([facility]) [id number] SNOMED CT Concept SNOMED CT Concept Problem 02/12 12:00:00 AM EST - 02/26/2020 12:00:00 AM EST ETHAN ([facility]) [id number] Screening for malignant neoplasm of cerv ix Screening for Malignant Neoplasm of Cervix Problem 02/12/2013 12:00:00 AM EST - 02/26/2020 12:00:00 AM EST ETHAN ([facility]) [id number] SNOMED CT Concept SNOMED CT Concept Problem 02/12 12:00:00 AM EST - 02/26/2020 12:00:00 AM EST ETHAN ([facility]) [id number] Screening for malignant neoplasm of cerv ix Screening for Malignant Neoplasm of Cervix Problem 02/12/2013 12:00:00 AM EST - 02/26/2020 12:00:00 AM EST ETHAN ([facility]) [id number] SNOMED CT Concept SNOMED CT Concept Problem 02/12 12:00:00 AM EST - 02/26/2020 12:00:00 AM EST ETHAN ([facility]) [id number] Screening for malignant neoplasm of cerv ix Screening for Malignant Neoplasm of Cervix Problem 02/12/2013 12:00:00 AM EST - 02/26/2020 12:00:00 AM EST ETHAN ([facility]) [id number] SNOMED CT Concept SNOMED CT Concept Problem 02/12 12:00:00 AM EST - 02/26/2020 12:00:00 AM EST ETHAN ([facility]) [id number] Screening for malignant neoplasm of cerv ix Screening for Malignant Neoplasm of Cervix Problem 02/12/2013 12:00:00 AM EST - 02/26/2020 12:00:00 AM EST ETHAN ([facility]) [id number] SNOMED CT Concept SNOMED CT Concept Problem 02/12 12:00:00 AM EST - 02/26/2020 12:00:00 AM EST ETHAN ([facility]) [id number] Screening for malignant neoplasm of cerv ix Screening for Malignant Neoplasm of Cervix Problem 02/12/2013 12:00:00 AM EST - 02/26/2020 12:00:00 AM EST ETHAN ([facility]) [id number] SNOMED CT Concept SNOMED CT Concept Problem 02/12 12:00:00 AM EST - 02/26/2020 12:00:00 AM EST ETHAN ([facility]) [id number] Screening for malignant neoplasm of cerv ix Screening for Malignant Neoplasm of Cervix Problem 02/12/2013 12:00:00 AM EST - 02/26/2020 12:00:00 AM EST ETHAN ([facility]) [id number] SNOMED CT Concept SNOMED CT Concept Problem 02/12 12:00:00 AM EST - 02/26/2020 12:00:00 AM EST ETHAN ([facility]) [id number] Screening for malignant neoplasm of cerv ix Screening for Malignant Neoplasm of Cervix Problem 02/12/2013 12:00:00 AM EST - 02/26/2020 12:00:00 AM EST ETHAN ([facility]) [id number] SNOMED CT Concept SNOMED CT Concept Problem 02/12 12:00:00 AM EST - 02/26/2020 12:00:00 AM EST ETHAN ([facility]) [id number] Screening for malignant neoplasm of cerv ix Screening for Malignant Neoplasm of Cervix Problem 02/12/2013 12:00:00 AM EST - 02/26/2020 12:00:00 AM EST ETHAN ([facility]) [id number] SNOMED CT Concept SNOMED CT Concept Problem 02/25 12:00:00 AM EST ETHAN ([facility]) [id number] SNOMED CT Concept SNOMED CT Concept Problem 02/25 12:00:00 AM EST ETHAN ([facility]) [id number] SNOMED CT Concept SNOMED CT Concept Problem 02/25 12:00:00 AM EST ETHAN ([facility]) [id number] SNOMED CT Concept SNOMED CT Concept Problem 02/25 12:00:00 AM EST ETHAN ([facility]) [id number] SNOMED CT Concept SNOMED CT Concept Problem 02/25 12:00:00 AM EST ETHAN ([facility]) [id number] SNOMED CT Concept SNOMED CT Concept Problem 02/25 12:00:00 AM EST ETHAN ([facility]) [id number] SNOMED CT Concept SNOMED CT Concept Problem 02/25 12:00:00 AM EST ETHAN ([facility]) [id number] SNOMED CT Concept SNOMED CT Concept Problem 02/25 12:00:00 AM EST ETHAN ([facility]) [id number] SNOMED CT Concept SNOMED CT Concept Problem 02/25 12:00:00 AM EST ETHAN ([facility]) [id number] SNOMED CT Concept SNOMED CT Concept Problem 02/25 12:00:00 AM EST ETHAN ([facility]) [id number] SNOMED CT Concept SNOMED CT Concept Problem 02/25 12:00:00 AM EST ETHAN ([facility]) [id number] SNOMED CT Concept SNOMED CT Concept Problem 02/25 12:00:00 AM EST ETHAN ([facility]) [id number] SNOMED CT Concept SNOMED CT Concept Problem 02/25 12:00:00 AM EST ETHAN ([facility]) [id number] SNOMED CT Concept SNOMED CT Concept Problem 02/25 12:00:00 AM EST TEHAN ([facility]) [id number] SNOMED CT Concept SNOMED CT Concept Problem 02/25 12:00:00 AM MAGNO LONG ([facility]) Surgeries/Procedures Procedure Description Date Indications Data Source(s) ECG ROUTINE ECG W/LEAST 12 LDS W/I&R <td>POCT AMB EKG</td><td>Routine</td><td>08/26/2020 4:21 PM EDT</td><td> Palpitations</td><td> </td> 08/26/2020 04:21:00 PM EDT Palpitations [facility] Palpitations SORIN THYROID STUDY <td>SORIN THYROID STUDY</td ><td>Routine</td><td>06/25/2020 3:25 PM EDT</td><td> Thyroid nodule</td><td></td> 06/25/2020 03:25:00 PM EDT Thyroid nodule [facility] Thyroid nodule BLOOD COUNT COMPLETE AUTO&AUTO DIFRNTL WBC COUNT <td>C BC AND DIFFERENTIAL</td><td>Routine</td><td>06/15/2020</td><td></td><td> </td> 06/15/2020 12:00:00 AM EDT [facility] THYROID STIMULATING HORMONE TSH <td>TSH</td><td>Routine</td><td>06/15/2020</td><td></td><td> </td> 06/15/2020 12:00:00 AM EDT [facility] IRON <td>IRON</td><td>Routine</td ><td>06/15/2020</td><td></td><td> </td> 06/15/2020 12:00:00 AM EDT [facility] HEMOGLOBIN GLYCOSYLATED A1C <td>HEMOGLOBIN A1C</td><td>Routine</td><td>06/15/2020</td><td></td><td> </td> 06/15/2020 12:00:00 AM EDT [facility] FERRITIN <td>FERRITIN</td><td>Routine </td><td>06/15/2020</td><td></td><td> </td> 06/15/2020 12:00:00 AM EDT [facility] HEPATIC FUNCTION PANEL <td>HEPATIC FUNCTION PANEL</td><td>Routine</td><td>06/15/2020</td><td></td><td> </td> 06/15/2020 12:00:00 AM EDT [facility] BASIC METABOLIC PANEL CALCIUM TOTAL <td>BASIC METABOLI C PANEL</td><td>Routine</td><td>06/15/2020</td><td></td><td> </td> 06/15/2020 12:00:00 AM EDT [facility] Results ID Date Data Source [id number] 07/07/2020 06:06:[address] [facility] [place] Name Value Range Interpretation Code Description Data Dee Dee rce(s) Supporting Document(s) Cortisol [Mass/volume] in Saliva (oral fluid) 0.140 ug/dL [facility] (NOTE)This test was developed and its pe rformance characteristicsdetermined by [facility]. It has not been cleared or approvedby the Food and Drug Administration.Reference Range:Children and Adults:8:00a.m.: 0.025 - 0.600Noon: <0.010 - 0.3304:00p.m.: 0.010 - 0.200Midnight: <0.010 - 0.090Performed At: [facility] [id number] [place], [place] [id number] Brian F MD Ph:[phone] ID Date Data Source [id number] 06/29/2020 02:36:[address] [facility] [place] Name Value Range Interpretation Code Description Data Dee Dee rce(s) Supporting Document(s) Microalbumin [Mass/volume] in Urine 53.9 mg/L [facility] Creatinine [Mass/volume] in Urine 32.2 mg/dl [facility] Albumin/Creatinine [Mass Ratio] in Urine 167.4 ug/mg creat <20.0 H [facility] ID Date Data Source [id number] 07/07/2020 06:06:[address] [facility] [place] Name Value Range Interpretation Code Description Data Dee Dee rce(s) Supporting Document(s) Cortisol [Mass/volume] in Saliva (oral fluid) 0.127 ug/dL [facility] (NOTE)This test was developed and its pe rformance characteristicsdetermined by [facility]. It has not been cleared or approvedby the Food and Drug Administration.Reference Range:Children and Adults:8:00a.m.: 0.025 - 0.600Noon: <0.010 - 0.3304:00p.m.: 0.010 - 0.200Midnight: <0.010 - 0.090Performed At: [facility] [id number] [place], [place] [id number] Blanchard MD Ph:[phone] ID Date Data Source [id number] 07/05/2020 08:06:[address] [facility] [place] Name Value Range Interpretation Code Description Data Dee Dee rce(s) Supporting Document(s) Normetanephrine [Mass/volume] in Serum or Plasma 45.3 pg/mL 0.0-125.8 [facility] (NOTE)This test was developed and its pe rformance characteristicsdetermined by [employer]. It has not been cleared or approvedby the Food and Drug Administration. Metanephrine Free [Mass/volume] in Serum or Plasma 12.0 pg/mL 0.0-88. 0 [facility] (NOTE)This test was developed and its pe rformance characteristicsdetermined by [employer]. It has not been cleared or approvedby the Food and Drug Administration.Performed At: [address] [id number] Price MD Ph:[phone] ID Date Data Source [id number] 07/06/2020 09:07:[address] [facility] [place] Name Value Range Interpretation Code Description Data Dee Dee rce(s) Supporting Document(s) Renin [Enzymatic activity/volume] in Plasma 15.315 ng/mL/hr 0.167-5.3 80 H [facility] (NOTE)This test was developed and its pe rformance characteristicsdetermined by [facility]. It has not been cleared or approvedby the Food and Drug Administration.Performed At: [address] [id number] Price MD Ph:[phone] ID Date Data Source [id number] 07/01/2020 02:08:[address] [facility] [place] Name Value Range Interpretation Code Description Data Dee Dee rce(s) Supporting Document(s) Calcitonin [Mass/volume] in Serum or Plasma 0.0-5.0 [facility] (NOTE)Siemens PurePlayulite 2000 Immunochemil uminometric assay (ICMA)Values obtained with different assay methods or kits cannot be usedinterchangeably. Results cannot be interpreted as absolute evidenceof the presence or absence of malignant disease.Performed At: [address] [id number] Price MD Ph:[phone] ID Date Data Source [id number] 07/05/2020 12:06:[address] [facility] [place] Name Value Range Interpretation Code Description Data Dee Dee rce(s) Supporting Document(s) Testosterone [Mass/volume] in Serum or Plasma 4.6 ng/dL [facility] (NOTE) Female: Premenopausal 10.0 - 55.0 Postmenopausal 7.0 - 40.0This test was developed and its performance characteristicsdetermined by [employer]. It has not been cleared or approvedby the Food and Drug Administration. Testosterone Free [Mass/volume] in Serum or Plasma 0.8 pg/mL 0.0-4.2 [facility] (NOTE)Performed At: [facility] [address] [place], [place] [id number] Price MD Ph:[phone] At: [facility]AS[facility] [address] [place] [id number] Falk MD Ph:[phone] ID Date Data Source [id number] 07/05/2020 06:06:33 PM [facility] Value Range Interpretation Code Description Data Dee Dee rce(s) Supporting Document(s) Aldosterone [Mass/volume] in Serum or Plasma 19.3 ng/dL 0.0-30.0 [facility] (NOTE)This test was developed and its pe rformance characteristicsdetermined by [employer]. It has not been cleared or approvedby the Food and Drug Administration.Performed At: [facility] [place], [place] [id number] Price MD Ph:[phone] ID Date Data Source [id number] 07/02/2020 12:06:54 PM [facility] Value Range Interpretation Code Description Data Dee Dee rce(s) Supporting Document(s) Norepinephrine [Mass/volume] in Plasma 231 pg/mL 0-874 [facility] Epinephrine [Mass/volume] in Plasma 0-62 [facility] Dopamine [Mass/volume] in Serum or Plasma 0-48 [facility] (NOTE)Performed At: [facility] [address] [place], [place] [id number] Price MD Ph:[phone] ID Date Data Source [id number] 06/28/2020 03:50:21 PM [facility] Value Range Interpretation Code Description Data Dee Dee rce(s) Supporting Document(s) Cholesterol [Mass/volume] in Serum or Plasma 144 mg/dL <200 [facility] Triglyceride [Mass/volume] in Serum or Plasma 298 mg/dL <150 H [facility] Cholesterol in HDL [Mass/volume] in Serum or Plasma 36 mg/dL >50 L [facility] Cholesterol in LDL [Mass/volume] in Serum or Plasma by calcu lation 49 mg/dL <100 [facility] Cholesterol in VLDL [Mass/volume] in Serum or Plasma by calc ulation 60 mg/dl 16-42 H [facility] Cholesterol non HDL [Mass/volume] in Serum or Plasma 108 mg/dL <130 [facility] ID Date Data Source [id number] 06/28/2020 03:50:21 PM [facility] Value Range Interpretation Code Description Data Dee Dee rce(s) Supporting Document(s) Albumin [Mass/volume] in Serum or Plasma by Bromocresol green (BCG) dye binding method 4.0 g/dL 3.5-5.2 [facility] Bilirubin.total [Mass/volume] in Serum or Plasma 0.3 mg/dL <1.2 [facility] Calcium [Mass/volume] in Serum or Plasma 9.4 mg/dL 8.6-10.0 [facility] Chloride [Moles/volume] in Serum or Plasma 96 mmol/L 98-107 L [facility] Creatinine [Mass/volume] in Serum or Plasma 0.50 mg/dL 0.50-0.90 [facility] Glucose [Mass/volume] in Serum or Plasma 386 mg/dL 70-140 H [facility] Alkaline phosphatase [Enzymatic activity/volume] in Serum or Plasma 93 U/L 35-104 [facility] Potassium [Moles/volume] in Serum or Plasma 4.6 mmol/L 3.4-5.1 [facility] Protein [Mass/volume] in Serum or Plasma 7.0 g/dL 6.4-8.3 [facility] Sodium [Moles/volume] in Serum or Plasma 132 mmol/L 136-145 L [facility] Aspartate aminotransferase [Enzymatic activity/volume] in Serum or Plasma 18 U/L <32 [facility] Urea nitrogen [Mass/volume] in Serum or Plasma 14 mg/dL 6-20 [facility] Osmolality of Serum or Plasma by calculation 290 mosm/kg 275-300 [facility] Creatinine/Urea nitrogen [Mass Ratio] in Serum or Plasma 28 [facility] Bicarbonate [Moles/volume] in Serum 22 mmol/L 22-29 [facility] Alanine aminotransferase [Enzymatic activity/volume] in Seru m or Plasma 21 U/L <33 [facility] Anion gap 3 in Serum or Plasma 15 mmol/L 8-15 [facility] Glomerular filtration rate/1.73 sq M pre dicted among non-blacks [Volume Rate/Area] in Serum or Plasma by Creatinine-based formula (MDRD) >6 0 [facility] Glomerular filtration rate/1.73 sq M pre dicted among blacks [Volume Rate/Area] in Serum or Plasma by Creatinine-based formula (MDRD) >60 [facility] ID Date Data Source [id number] 06/29/2020 11:42:40 AM EDT [facility] Name Value Range Interpretation Code Description Data Dee Dee rce(s) Supporting Document(s) Dehydroepiandrosterone sulfate (DHEA-S) [Mass/volume] in Serum or Plasma 77 ug/dL <340 [facility] ID Date Data Source [id number] 06/26/2020 06:11:32 PM EDT [facility] Name Value Range Interpretation Code Description Data Dee Dee rce(s) Supporting Document(s) Progress Note [facility] SLFJVs2fBkRSEcNx98/PTHjtLCAhk3LwXAurUQo1KAwaLSGhX2RqFKI2pV5sYMB2JUeVLwIrTcOiNCO9 lbm [file] gFArLq6VOHlfKjCNQzTuCP6GYHa= ID Date Data Source [id number] 06/26/2020 06:11:27 PM EDT [facility] Name Value Range Interpretation Code Description Data Dee Dee rce(s) Supporting Document(s) Progress Note [facility] HMVJNv8kGlDTBbOv08/KJLcsVMEij3AhZFmxORa1KMyaQGWuA1VwWLN4uV2qNAY4ERiYLsNtYyKmEID0 lbm [file] Cg== ID Date Data Source [id number] 06/25/2020 05:26:14 PM EDT [facility] Name Value Range Interpretation Code Description Data Dee Dee rce(s) Supporting Document(s) Progress Note [facility] BEGWXe5pNyKNVgSf01/UYJqiDBObh4JkGKbdCOs2MAirHEOvG5HgGUV6dV9gNVK0BPwWCdVoKrIhRTP9 lbm [file] Cjx3vNK+knyzaM8yWD3X1al/pjzAPte/manager wholesale/EJ8L2HREyvOjEfRwr8Uf1NVVtaAxmAceGoibjvqdCdF [file] ICAgICAgICAgICAgICAgICAgICAgICAgICAgICAgIC AgICAgICAgICAgICAgICAgICAgICAgICAgICAgICAgICAgICAgICAgICAgICAgICAgICAgICAgDQogIC AgICAgICAgICAgICAgICAgICAgICAgICAgICAgICAgICAgICAgICAgICAgICAgICAgICAgICAgICAgIC AgICAgICAgICAgICAgICAgICAgICAgICAgICAgICAg ICAgICAgDQogICAgICAgICAgICAgICAgICAgICAgICAgICAgICAgICAgICAgICAgICAgICAgICAgICAg ICAgICAgICAgICAgICAgICAgICAgICAgICAgICAgICAgICAgICAgICAgICAgICAgDQogICAgICAgICAg ICAgICAgICAgICAgICAgICAgICAgICAgICAgICAgIC AgICAgICAgICAgICAgICAgICAgICAgICAgICAgICAgICAgICAgICAgICAgICAgICAgICAgICAgICAgDQ ogICAgICAgICAgICAgICAgICAgICAgICAgICAgICAgICAgICAgICAgICAgICAgICAgICAgICAgICAgIC AgICAgICAgICAgICAgICAgICAgICAgICAgICAgICAg ICAgICAgICAgDQogICAgICAgICAgICAgICAgICAgICAgICAgICAgICAgICAgICAgICAgICAgICAgICAg ICAgICAgICAgICAgICAgICAgICAgICAgICAgICAgICAgICAgICAgICAgICAgICAgICAgDQogICAgICAg ICAgICAgICAgICAgICAgICAgICAgICAgICAgICAgIC AgICAgICAgICAgICAgICAgICAgICAgICAgICAgICAgICAgICAgICAgICAgICAgICAgICAgICAgICAgIC AgDQogICAgICAgICAgICAgICAgICAgICAgICAgICAgICAgICAgICAgICAgICAgICAgICAgICAgICAgIC AgICAgICAgICAgICAgICAgICAgICAgICAgICAgICAg ICAgICAgICAgICAgDQogICAgICAgICAgICAgICAgICAgICAgICAgICAgICAgICAgICAgICAgICAgICAg ICAgICAgICAgICAgICAgICAgICAgICAgICAgICAgICAgICAgICAgICAgICAgICAgICAgICAgDQogICAg ICAgICAgICAgICAgICAgICAgICAgICAgICAgICAgIC AgICAgICAgICAgICAgICAgICAgICAgICAgICAgICAgICAgICAgICAgICAgICAgICAgICAgICAgICAgIC DsLPDcYCq9I0onPYVvYQMtCX6dQXb3Fm9+IEwNJcSxNYB6miBjxL9AQT2qe9NjLLkbWSMil1WaZVf0PF 9QYUKhUKsuKA6AVLogxt2LYFGzOPJocVHXk7hoMiSj DWH4EBVqPmglLD5RKIIxP6vzreFjMMQbDXDRKCwyAUIQVDwrFFVDAQKnXINsEmJhOmDbMXQbRACyUREF AA0JNvKiQ3AwfV26YWYTXt1+BFuumaEnDrhFSqFcMPRdh4SoYSl7EN7ABHRqXtmld1SuXfZhPWSHYNzk ES7AULG6LYSvMPDcNy4OGYDtL765hrBbFJ3BUr5YZt JzFM2ezl2FCiDuWPEqWijOKas5JExdBP1FdPXmPGlYpq8wdxKrwbQHa1RxacLucFOQYEqylcUqL8tovS tqQCEQO6kdAQWxJO3vAc0jYMOqLVZtQjDmUJZILF3YRXCmXOWvhZTnXXAnIHSTXP1DGIbiWKX2OHPstp OcgGDjOYkuPP5YPPVhiyVbIfAsILGNPQl+Yv2IPB5b y5TdEUibFYClEC9lcx2VTYtRYyFfS7D0hMYeI6W3JRdtNv8PNYUaHXSaSuRsMYOLLZszDE4MIF6eatL6 AI4VgOPzSKLmJYVlaXVjRWh4V81pqDJwRJhqYX5AVUV+Nasir+Pv4ZLTArFAGzZKTvMfInYYXDHuWrM1Eu S3ESp6OzV5IfUK32zInacgVoCBnhJR4JNK2zRIPwJU AJVG5GbXYtwL1qxrOlRsShMLAFPiMvT60avLHyTUMcTFOyFZVwEl9GRKNfG3TchxXhaJzirjJdKLVbZE EGHQ6TXEjtpbGhpSYmeExvBG56qAxlDF3TGc1WIyKhPP0iij9KeLVbCg6MUFFoLC6WCLDlLANsEYFyOL C6DEUmVtIjNSydXOPoNJPtWUK7NNZsYSSdFY9TUwCs GUNeBxX2DkYjVZYhLRRlrr2PZVGuNIZoMBK7DLZqKCJmTKPjUXzpUYBbBPCePYK6LEAgQQSiKS2ZPkNx QZYdVDI0AqMsDWRpNXAwmj7UNVQyTCEuUnA2BiWeHCPiSVXfBMlnMGBtGOX2YAA4DGLqVFRnDP5XVmXa AOTqXSX2WaNuGMAfLYGizo5MIHAvIUXhZBfiCOEbNN XaKZRoDPfjMCSmQMM0HUA7USScXJXiGY7VCfFvEAGkFYD8LVQpWTHvWWZzwf4NGKYsTQKsYOgmYXZhKC HqTINpDTjtZKAfHLF9MFl3DXVmMBYuFA3XKlNaVLYfNHVwKPYiPRIvYBOomk2ZLRNpPAChZmV3GQNxDJ YhREXaVCzhFECbVBD3Osf0ZRSwFHLoIN3LXaJaTHYl RKwuINkkCITgRSJxml0YCZHdBPUrTmG7SWJqXLRhYVXcTYocBEMgWLM2ZwP2JGVpQCVlIN6UNjWyWHEd IBf8MVOlFSVpGENfbc9TOEZmLJGaPUy5ITCmUBVjBELbUJszFQHpDRR2NLr9URDnKWCvKM9VHiBdJPOp BeC4CUZxGSCpMPZmne7VASGjRNMfSUn0ACJaWRAzOL MnLSrwCRUnCDOiZGGcAXJqFOCgNP4KPqCxFSSmZgTcXSVnYYRhQPWndm7ZYUExOPRxJJA7KqHqQRPuDY KyYPgvZPJnMBPtHypcTDUsRQEpHW8DVpIiSJYuYlJ8FxWmHPQyRFWknl1OHTKjJYZoJzn7EfFpPMRhSH DdYDzlFVEwXZVrQKX9FDYiRYVzBW6RNtGsWKYrKlL4 BzCfSFRhDGAgcx1YPBPcQBArNQleKHGgLQTzRLUsCXfjAEAdSME0DBYbBRIwICQaIX1SWtDsADcwKGVK Evc3BEzpG1g6MKRfDN8AH4Zom8HlHnWyICTXLKknZZ8xhfTcZPEnFz9ZU6sRPsm9WcfcNpByGGx8STAy OvRpVIV6K9P2UphvQAD3ZNP2SB8zGIMqYXT4AREcOJ dcXLK0JmMyFZxpONzfOTZpWvK1YGi2DgMcEC7HUf3GJlY2OEP1cRJuCj8MVvApSJDGVbGsMZ0HRUt= ID Date Data Source [id number] 06/25/2020 05:23:38 PM EDT [facility] Name Value Range Interpretation Code Description Data Dee Dee rce(s) Supporting Document(s) Progress Note [facility] EBQZFa5nMbCTZoNf85/MUDiaDZGrc9VxKKvqWAe7MIgjYIOdJ8EmZED4qX0zOUB9ABfNPuAfRyRlYHI6 lbm GbIgdNWyCcJGPfZtdHVcVmCMutFtrnqMShMR7KdFO8ZMCiK70gXEWoSRByH8BqFOL5JWT+Wf0HCRShxC RlGP4BNnmM4JsdkyuI8i7R/1KQBpSNCGsf3jEtQWPq9R3T+dBIesBW8NDJ4mNQEbWSqec0V1+OL9cjTO 6xgWVKFZ8rxQVa274r7XNN3K+/p98oDRoOax+Lj15g s+/sGYcNnV0Xwry18iH5fXfibP7v/kHwVff+WdpRUZECXxT0P8uSAu+x7fh1XhcjJa9SI9hxCNN2RQ [file] V3rQ/0zx1/N/Boaz/LnSX+AA0v2pB+ifO/9v9N02b0U/ wupC46T+0D93/N3gO/PnSn+FT+l+ENoX6NRJ5x9+Y3hg3uatlYZJdNZHFH8E/jXCHVkM4PVNCNrnWDCt sG7LGBSaXMyPFpqWjvtsJRqzyf10jo9Nm+9IXiXOhvAufcpHaifhxs11uq3WwP5VMCVonuUkjMNVuaot Hws0lp8GwN8Xy6LbqbDs6Qhwa1yy4bO/U/F5D2EKzf /PmKkHFebzs5gQ2vK/E7YzAb4oRbNiO5Ht3KTmHkWWVeBF9UVha6XjEDowkj43ZCR3R7RlBfiRwJ+Leonidas +DB4Jnuge0f4PP6S/0/AfyJ0p/05H9SUST/Jose A/0D+PCclBbjxxs8RZ1UaM3kiIM7V4jEIks8DPeXgJ1 [file] AgICAgICAgICAgICAgICAgICAgICAgICAgICAgICAgICAgICAgICAgICAgICAgICAgICAgICAgICAgIC AgICAgICAgICAgICAgICAgICAgICAgDQogICAgICAg ICAgICAgICAgICAgICAgICAgICAgICAgICAgICAgICAgICAgICAgICAgICAgICAgICAgICAgICAgICAg ICAgICAgICAgICAgICAgICAgICAgICAgICAgICAgICAgDQogICAgICAgICAgICAgICAgICAgICAgICAg ICAgICAgICAgICAgICAgICAgICAgICAgICAgICAgIC AgICAgICAgICAgICAgICAgICAgICAgICAgICAgICAgICAgICAgICAgICAgDQogICAgICAgICAgICAgIC AgICAgICAgICAgICAgICAgICAgICAgICAgICAgICAgICAgICAgICAgICAgICAgICAgICAgICAgICAgIC AgICAgICAgICAgICAgICAgICAgICAgICAgDQogICAg ICAgICAgICAgICAgICAgICAgICAgICAgICAgICAgICAgICAgICAgICAgICAgICAgICAgICAgICAgICAg ICAgICAgICAgICAgICAgICAgICAgICAgICAgICAgICAgICAgDQogICAgICAgICAgICAgICAgICAgICAg ICAgICAgICAgICAgICAgICAgICAgICAgICAgICAgIC AgICAgICAgICAgICAgICAgICAgICAgICAgICAgICAgICAgICAgICAgICAgICAgDQogICAgICAgICAgIC AgICAgICAgICAgICAgICAgICAgICAgICAgICAgICAgICAgICAgICAgICAgICAgICAgICAgICAgICAgIC AgICAgICAgICAgICAgICAgICAgICAgICAgICAgDQog ICAgICAgICAgICAgICAgICAgICAgICAgICAgICAgICAgICAgICAgICAgICAgICAgICAgICAgICAgICAg ICAgICAgICAgICAgICAgICAgICAgICAgICAgICAgICAgICAgICAgDQogICAgICAgICAgICAgICAgICAg ICAgICAgICAgICAgICAgICAgICAgICAgICAgICAgIC AgICAgICAgICAgICAgICAgICAgICAgICAgICAgICAgICAgICAgICAgICAgICAgICAgDQogICAgICAgIC AgICAgICAgICAgICAgICAgICAgICAgICAgICAgICAgICAgICAgICAgICAgICAgICAgICAgICAgICAgIC AgICAgICAgICAgICAgICAgICAgICAgICAgICAgICAg JHs6U0pgDUCaVIHvNA2eJFw3Rh9+QUwUBiCtQKC0thUphY6LEZ3lm7CnJSokAUKjz4RhBCx9UE3OTHGj QSmnFV6XEBngnt2CYPXjSMRicRZXk1drWhTpKCY0RKHbDndmHT0QWEAcU6ktxhQjJGBdIQMYCIrcNOJS CVvmELUEZQ5PBpAzI2DmnH32KXEKQf0+DQplbmRvYm yDJsS8BUZjm6LxVAy8XY2TPCZvSiyov0DhHnSoVJDBEDhgXC3CHQF4OSX2JSOsPm7GXJHxZ656wfApFB 3YXa5HIlTzCZ1don2FBuQqKOQdHaqCUri1YCkhHQ7KfWDtZRqSgi5zchRkuaYDt7XgppUlaVVBKYoryc ByK0kiiBpkNBRQM8mlQHNbVU7bLb4mUIGcSTZjHpKv EXGZEP4GKINmXZNchUAbRRPnXREAZS2RPAvvBXE5PPUmehPpuNUgFRziYE0SRTEhbrBcZgUiUJUHCFl+ Kv7VOB0qo7NpCSrzVnBbPV7leb5HFYpYYjFkO5C2jNOcE9I8QEmgXa2NCBHiJSHgNnXaXPSWSOutZR4L GX4sdnL7YV5ObTKqFLDyIFMnlNBhDWs0Z73vjNBxBK mzCY7LPJR+Nasir+Yj5LZSViOVKdNVBeYsLbGDTCSoCzB6AyI0NGo9FaW4LwNM23wRomcmUkFQenOJ9GIP 1gQDBhTKQUAC2XdVFpnJ9lrkEtLGXsATYLMnTiK14thWYgQAXtDAWoOEXdQa7TSYBcL6WggbFjiVjpev XvOKGgMNARUD5EDNcrbkYxsFWxoFzaUE53zWrsAW5Y Np1NYyMvEP8fbc4WcJSfTk5ZBLCqFc9BTLYwPIAvZUMrYMM4NWJvNaOfQVcsDQUnUILgMAB4UEAtZBXx YG8YMpBrEBToVvKyCUSbVWXkVIZaut6INYQqCKXwSuP4TMUkRYRiBMFlXRvuVURvWPBdSAZ9KGGaDKYe GN4SStGcXZXxATX9OxFtUTHrBLIasn1ILJVcEJKxKo DnYjWhTBHiVYKbDComEOZpSQF9XSk8PXRtCQTuNJ6CGsEpCQOxQFX2YRcgQMTkPHNhco8VSUKmXTEcWe f8AXKiZDLdBFZlEDvoXVEvYXZ3UZO2EYOaTQKgYC4IKnLbVBFtUZl2HJefBXUmVOMknt8IBVSyULIbZC PqYpPxPVPlUEDdAZieLRItQOK7Sgt0PKDbQREiPB8C GzYcVQAaWCHvLPqqIOKjAKPdyp6DKKMmDTUeEUZ6GHJmBZJbIWUkDTsnWUFxYNCaEyD1QHXcSYIkIX3Z UmXhBWYhLsA6YFZcKINaLYEpxd7EBSFuMCYyAnHxQAXfDZAtRXQuQCpvCGBvCOToADN4MERoNWFnZB5F XqWqKJNkStT3IFeoLZVbCAVaii4TJOHaXJMiKktdFO DvSEQsDVZfSRpyQRUbNMBdGHV8DNBcXCUcAZ5XQoKoNYVtChFiJuasVSHzQNIyhp1EQRBvEGOoSPGyHQ FrEUEtJJAdIRcmCQHuNSC9QSG2ARGcGLXwEK4OPfYfSCItPyAsArEjCVIxXFRubp0KDDCnENGlTUPiEG PuCTWwUNZsNToxFBFuADKgIpE6UEWuKHXjNG7CWzMf FGOfJfA2UGRoPJMrOTGyot1UCFQhRFNwDJz3BYIwWJTqWERbYCvpXNMxRSFnACK3ABOeBNJmAW5UQrMr BGOpYtHjEMGfJSZmKFVqpo2DTGIyHCIlPEerOCTzMFTrUXVsHFbiTBQqPJTgRHbjZJOpFTCeTM6PSiBo IDEsFdDoEMCqNKGvQEZknd9BNTWsUQRbGxJaOQPmTQ TxANXaKHy2uxBqlUArGOb0OD2MO1BnmaDaEcxKGz3Uz557JUN9FYQrCb2FT6esSk2aXWSmQSKWLf8ZAX h4MPQzQoO3IRO9HPA1ZOMaNlV2FRLuRYX1WLSyGdo6NJA+IIh9AiQuFlV6UufjUcFvWOLsGzD0V9OrZt IrIpF4NwM2JH1qBYBNPj2+MMwgvZOrhYemESVCLjHiWcG9VKzmRNOZUa7V ID Date Data Source [id number] 06/23/2020 09:59:00 AM EDT [facility]) Name Value Range Interpretation Code Description Data Dee Dee rce(s) Supporting Document(s) ID Date Data Source [id number] 06/23/2020 09:59:00 AM EDT [facility]) Name Value Range Interpretation Code Description Data Dee Dee rce(s) Supporting Document(s) ID Date Data Source [id number] 06/23/2020 09:59:00 AM EDT [facility]) Name Value Range Interpretation Code Description Data Dee Dee rce(s) Supporting Document(s) ID Date Data Source [id number] 06/23/2020 09:59:00 AM EDT [facility]) Name Value Range Interpretation Code Description Data Dee Dee rce(s) Supporting Document(s) ID Date Data Source [id number] 06/21/2020 10:16:00 AM EDT [facility]) Name Value Range Interpretation Code Description Data Dee Dee rce(s) Supporting Document(s) bilirubin neg Bilirubin [facility] ([facility]) glucose 3+ Abnormal (applies to non-numeric res ults) Glucose [facility] ([facility]) blood 3+ Abnormal (applies to non-numeric res ults) Blood [facility] ([facility]) ketone 2+ Abnormal (applies to non-numeric res ults) Ketone [facility] ([facility]) leukocytes neg Leukocytes [facility] ([facility]) pH Ph [facility] ([facility]) protein 1+ Abnormal (applies to non-numeric res ults) Protein [facility] ([facility]) nitrite neg Nitrite [facility] ([facility]) urobilinogen 0.2 mg/dL Urobilinogen [facility]AN ([facility]) specific gravity Specific [facility]) ID Date Data Source [id number] 06/21/2020 10:16:00 AM EDT [facility]) Name Value Range Interpretation Code Description Data Dee Dee rce(s) Supporting Document(s) bilirubin neg Bilirubin [facility] ([facility]) blood 3+ Abnormal (applies to non-numeric res ults) Blood [facility] ([facility]) glucose 3+ Abnormal (applies to non-numeric res ults) Glucose [facility] ([facility]) ketone 2+ Abnormal (applies to non-numeric res ults) Ketone [facility] ([facility]) nitrite neg Nitrite [facility] ([facility]) leukocytes neg Leukocytes [facility] ([facility]) protein 1+ Abnormal (applies to non-numeric res ults) Protein [facility] ([facility]) pH Ph [facility] ([facility]) urobilinogen 0.2 mg/dL Urobilinogen [facility] ([facility]) specific gravity Specific [facility]) ID Date Data Source [id number] 06/21/2020 10:16:00 AM EDT [facility]) Name Value Range Interpretation Code Description Data Dee Dee rce(s) Supporting Document(s) bilirubin neg Bilirubin [facility] ([facility]) blood 3+ Abnormal (applies to non-numeric res ults) Blood [facility] ([facility]) glucose 3+ Abnormal (applies to non-numeric res ults) Glucose [facility]) ketone 2+ Abnormal (applies to non-numeric res ults) Ketone [facility] ([facility]) leukocytes neg Leukocytes [facility] ([facility]) pH Ph [facility]) nitrite neg Nitrite [facility] ([facility]) protein 1+ Abnormal (applies to non-numeric res ults) Protein [facility] ([facility]) specific gravity Specific [facility] ([facility]) urobilinogen 0.2 mg/dL Urobilinogen [facility] (No [facility]) ID Date Data Source [id number] 06/21/2020 10:16:00 AM EDT [facility]) Name Value Range Interpretation Code Description Data Dee Dee rce(s) Supporting Document(s) bilirubin neg Bilirubin [facility] ([facility]) ketone 2+ Abnormal (applies to non-numeric res ults) Ketone [facility] ([facility]) blood 3+ Abnormal (applies to non-numeric res ults) Blood [facility] ([facility]) glucose 3+ Abnormal (applies to non-numeric res ults) Glucose [facility] ([facility]) leukocytes neg Leukocytes [facility] ([facility]) nitrite neg Nitrite [facility] ([facility]) protein 1+ Abnormal (applies to non-numeric res ults) Protein ETHAN ([facility]) pH Ph ETHAN ([facility]) specific gravity Specific [facility] ([facility]) urobilinogen 0.2 mg/dL Urobilinogen ETHAN (No [facility]) ID Date Data Source [id number] 06/21/2020 10:16:00 AM EDT [facility] Name Value Range Interpretation Code Description Data Dee Dee rce(s) Supporting Document(s) blood 3+ Abnormal (applies to non-numeric res ults) Blood ETHAN ([facility]) bilirubin neg Bilirubin ETHAN ([facility]) ketone 2+ Abnormal (applies to non-numeric res ults) Ketone ETHAN ([facility]) glucose 3+ Abnormal (applies to non-numeric res ults) Glucose ETHAN ([facility]) pH Ph ETHAN ([facility]) nitrite neg Nitrite ETHAN ([facility]) leukocytes neg Leukocytes ETHAN ([facility]) [facility] protein 1+ Abnormal (applies to non-numeric res ults) Protein ETHAN ([facility]) urobilinogen 0.2 mg/dL Urobilinogen ETHAN (No [facility]) ID Date Data Source [id number] 06/21/2020 10:16:00 AM EDT ETHAN ([facility]) Name Value Range Interpretation Code Description Data Dee Dee rce(s) Supporting Document(s) bilirubin neg Bilirubin ETHAN ([facility]) glucose 3+ Abnormal (applies to non-numeric res ults) Glucose ETHAN ([facility]) blood 3+ Abnormal (applies to non-numeric res ults) Blood ETHAN ([facility]) leukocytes neg Leukocytes ETHAN ([facility]) ketone 2+ Abnormal (applies to non-numeric res ults) Ketone ETHAN ([facility]) nitrite neg Nitrite ETHAN ([facility]) pH Ph ETHAN ([facility]) protein 1+ Abnormal (applies to non-numeric res ults) Protein ETHAN ([facility]) urobilinogen 0.2 mg/dL Urobilinogen ETHAN (No [facility]) specific gravity Specific [facility] ([facility]) ID Date Data Source [id number] 06/21/2020 10:16:00 AM EDT [facility]) Name Value Range Interpretation Code Description Data Dee Dee rce(s) Supporting Document(s) bilirubin neg Bilirubin ETHAN ([facility]) blood 3+ Abnormal (applies to non-numeric res ults) Blood ETHAN ([facility]) glucose 3+ Abnormal (applies to non-numeric res ults) Glucose ETHAN ([facility]) ketone 2+ Abnormal (applies to non-numeric res ults) Ketone ETHAN ([facility]) nitrite neg Nitrite ETHAN ([facility]) leukocytes neg Leukocytes ETHAN ([facility]) pH Ph ETHAN ([facility]) protein 1+ Abnormal (applies to non-numeric res ults) Protein ETHAN ([facility]) specific gravity Specific [facility] ([facility]) urobilinogen 0.2 mg/dL Urobilinogen ETHAN (No [facility]) ID Date Data Source [id number] 06/15/2020 09:29:00 AM EDT ETHAN ([facility]) Name Value Range Interpretation Code Description Data Dee Dee rce(s) Supporting Document(s) Hemoglobin A1c/Hemoglobin.total in Blood Hemoglobin a1C [facility]) ID Date Data Source [id number] 06/15/2020 09:29:00 AM EDT ETHAN ([facility]) Name Value Range Interpretation Code Description Data Dee Dee rce(s) Supporting Document(s) ID Date Data Source [id number] 06/15/2020 09:29:00 AM EDT [facility]) Name Value Range Interpretation Code Description Data Dee Dee rce(s) Supporting Document(s) Hemoglobin A1c/Hemoglobin.total in Blood Hemoglobin a1C ERIE ([facility]) ID Date Data Source [id number] 06/15/2020 09:29:00 AM EDT [facility]) Name Value Range Interpretation Code Description Data Dee Dee rce(s) Supporting Document(s) ID Date Data Source [id number] 06/15/2020 09:29:00 AM EDT [facility]) Name Value Range Interpretation Code Description Data Dee Dee rce(s) Supporting Document(s) ID Date Data Source [id number] 06/15/2020 09:29:00 AM EDT [facility]) Name Value Range Interpretation Code Description Data Dee Dee rce(s) Supporting Document(s) ID Date Data Source [id number] 06/15/2020 09:29:00 AM EDT [facility]) Name Value Range Interpretation Code Description Data Dee Dee rce(s) Supporting Document(s) ID Date Data Source [id number] 06/15/2020 09:29:00 AM EDT [facility]) Name Value Range Interpretation Code Description Data Dee Dee rce(s) Supporting Document(s) ID Date Data Source [id number] 06/15/2020 09:29:00 AM EDT [facility]) Name Value Range Interpretation Code Description Data Dee Dee rce(s) Supporting Document(s) ID Date Data Source [id number] 06/15/2020 09:29:00 AM EDT [facility]) Name Value Range Interpretation Code Description Data Dee Dee rce(s) Supporting Document(s) ID Date Data Source [id number] 06/15/2020 09:29:00 AM EDT [facility]) Name Value Range Interpretation Code Description Data Dee Dee rce(s) Supporting Document(s) ID Date Data Source [id number] 06/15/2020 09:29:00 AM EDT [facility]) Name Value Range Interpretation Code Description Data Dee Dee rce(s) Supporting Document(s) ID Date Data Source [id number] 06/15/2020 09:29:00 AM EDT [facility]) Name Value Range Interpretation Code Description Data Dee Dee rce(s) Supporting Document(s) ID Date Data Source [id number] 03/19/2020 11:23:00 AM EST [facility]) Name Value Range Interpretation Code Description Data Dee Dee rce(s) Supporting Document(s) lipase 189 U/L 73-393 Lipase ETHAN ([facility]) ID Date Data Source [id number] 03/19/2020 11:23:00 AM EST ETHAN ([facility]) Name Value Range Interpretation Code Description Data Dee Dee rce(s) Supporting Document(s) amylase 14 U/L 25-115 Below low normal Amylase ETHAN ( [facility]) ID Date Data Source [id number] 03/19/2020 11:23:00 AM EST ETHAN ([facility]) Name Value Range Interpretation Code Description Data Dee Dee rce(s) Supporting Document(s) glucose, fasting 328 mg/dL 70-100 Above high normal Glucose, Fas ting ETHAN ([facility]) blood urea nitrogen 11 mg/dL 7-18 Blood Urea Nitro gen ETHAN ([facility]) sodium level 134 mEq/L 136-145 Below low normal Sodium Level ATHE ([facility]) creatinine for GFR 0.74 mg/dL 0.55-1.30 Creatinine for GF R ETHAN ([facility]) glomerular filtration rate > 60.0 >58 Glomerula r Filtration Rate ETHAN ([facility]) potassium serum 4.4 mEq/L 3.5-5.1 Potassium Serum ATHE ([facility]) carbon dioxide level 26 mEq/L 21-32 Carbon Dioxide Level ETHAN ([facility]) chloride level 98 mEq/L 98-107 Chloride Level ETHAN ([facility]) ALT/SGPT 35 U/L 12-78 ALT/SGPT ETHAN ([facility]) anion gap 10 mEq/L 8-16 Anion Gap ETHAN ([facility]) AST/SGOT 16 U/L 7-37 AST/SGOT ETHAN ([facility]) calcium level 8.9 mg/dL 8.5-10.1 Calcium Level ETHAN ( [facility]) bilirubin,total 0.3 mg/dL 0.2-1.0 Bilirubin,total ATHE NA ([facility]) total protein 6.4 gm/dL 6.4-8.2 Total Protein ETHAN ( [facility]) alkaline phosphatase 96 U/L 45-117 Alkaline Phosph atase ETHAN ([facility]) albumin/globulin ratio 1.2-2.2 Albumin/globu paola Ratio ETHAN ([facility]) albumin 3.6 gm/dL 3.2-5.2 Albumin ETHAN ([facility]) ID Date Data Source [id number] 03/19/2020 11:23:00 AM EST ETHAN ([facility]) Name Value Range Interpretation Code Description Data Dee Dee rce(s) Supporting Document(s) white blood count 6.5 10 4.0-10.0 White Blood Count ETHAN ([facility]) hematocrit 41.5 % 36.0-47.0 Hematocrit ETHAN ([facility]) hemoglobin 13.3 g/dL 12.0-15.5 Hemoglobin ETHAN ([facility]) red blood count 4.55 10 4.00-5.40 Red Blood Count ATHE ([facility]) mean corpuscular hemoglobin 29.2 pg 27.0-33.0 Mean Cor puscular Hemoglobin ETHAN ([facility]) mean corpuscular volume 91.2 fL 80.0-96.0 Mean Corpusc ular Volume ETHAN ([facility]) mean corpuscular HGB conc 32.0 g/dL 32.0-36.5 Mean Corpu scular HGB Conc ETHAN ([facility]) neutrophils % 69.3 % 36.0-66.0 Above high normal Neutrophils % A THENA ([facility]) platelet count, automated 276 10 150-450 Platelet C ount, Automated ETHAN ([facility]) red cell distribution width 13.2 % 11.5-14.5 Red Cell Distribution Width ETHAN ([facility]) mono % 5.2 % 0.0-5.[address] [facility] % ETHAN ([facility]) lymph % 22.7 % 24.0-44.0 Below low normal Lymph % ETHAN ( [facility]) eos % 2.0 % 0.0-3.0 Eos % ETHAN ([facility]) nucleated red blood cell % 0.0 % 0-0 Nucleated Red Blood Cell % ETHAN ([facility]) baso % 0.5 % 0.0-1.0 Baso % ETHAN ([facility]) immature granulocyte % 0.3 % 0-3.0 Immature Gran ulocyte % ETHAN ([facility]) mono # 0.3 10 0.0-0.8 [facility] # ETHAN ([facility]) lymph # 1.5 10 1.5-5.0 Lymph # ERIE ([facility]) neutrophils # 4.5 10 1.5-8.5 Neutrophils # ETHAN ( [facility]) baso # 0.0 10 0.0-0.2 Baso # ETHAN ([facility]) eos # 0.1 10 0.0-0.5 Eos # ETHAN ([facility]) ID Date Data Source [id number] 03/19/2020 11:23:00 AM EST ETHAN ([facility]) Name Value Range Interpretation Code Description Data Dee Dee rce(s) Supporting Document(s) lipase 189 U/L 73-393 Lipase ETHAN ([facility]) ID Date Data Source [id number] 03/19/2020 11:23:00 AM EST ETHAN ([facility]) Name Value Range Interpretation Code Description Data Dee Dee rce(s) Supporting Document(s) amylase 14 U/L 25-115 Below low normal Amylase ETHAN ( [facility]) ID Date Data Source [id number] 03/19/2020 11:23:00 AM EST ETHAN ([facility]) Name Value Range Interpretation Code Description Data Dee Dee rce(s) Supporting Document(s) glucose, fasting 328 mg/dL 70-100 Above high normal Glucose, Fas ting ETHAN ([facility]) blood urea nitrogen 11 mg/dL 7-18 Blood Urea Nitro gen ETHAN ([facility]) sodium level 134 mEq/L 136-145 Below low normal Sodium Level ATHE NA ([facility]) glomerular filtration rate > 60.0 >58 Glomerula r Filtration Rate ETHAN ([facility]) creatinine for GFR 0.74 mg/dL 0.55-1.30 Creatinine for GF R ETHAN ([facility]) potassium serum 4.4 mEq/L 3.5-5.1 Potassium Serum ATHE NA ([facility]) chloride level 98 mEq/L 98-107 Chloride Level ETHAN ([facility]) carbon dioxide level 26 mEq/L 21-32 Carbon Dioxide Level ETHAN ([facility]) calcium level 8.9 mg/dL 8.5-10.1 Calcium Level ETHAN ( [facility]) anion gap 10 mEq/L 8-16 Anion Gap ETHAN ([facility]) ALT/SGPT 35 U/L 12-78 ALT/SGPT ETHAN ([facility]) AST/SGOT 16 U/L 7-37 AST/SGOT ETHAN ([facility]) alkaline phosphatase 96 U/L 45-117 Alkaline Phosph atase ETHAN ([facility]) bilirubin,total 0.3 mg/dL 0.2-1.0 Bilirubin,total ATHE ([facility]) albumin 3.6 gm/dL 3.2-5.2 Albumin ETHAN ([facility]) total protein 6.4 gm/dL 6.4-8.2 Total Protein ETHAN ( [facility]) albumin/globulin ratio 1.2-2.2 Albumin/globu paola Ratio ETHAN ([facility]) ID Date Data Source [id number] 03/19/2020 11:23:00 AM EST ETHAN ([facility]) Name Value Range Interpretation Code Description Data Dee Dee rce(s) Supporting Document(s) white blood count 6.5 10 4.0-10.0 White Blood Count ETHAN ([facility]) red blood count 4.55 10 4.00-5.40 Red Blood Count ATHE NA ([facility]) hemoglobin 13.3 g/dL 12.0-15.5 Hemoglobin ETHAN ([facility]) hematocrit 41.5 % 36.0-47.0 Hematocrit ETHAN ([facility]) mean corpuscular volume 91.2 fL 80.0-96.0 Mean Corpusc ular Volume ETHAN ([facility]) mean corpuscular HGB conc 32.0 g/dL 32.0-36.5 Mean Corpu scular HGB Conc ETHAN ([facility]) mean corpuscular hemoglobin 29.2 pg 27.0-33.0 Mean Cor puscular Hemoglobin ETHAN ([facility]) red cell distribution width 13.2 % 11.5-14.5 Red Cell Distribution Width ETHAN ([facility]) platelet count, automated 276 10 150-450 Platelet C ount, Automated ETHAN ([facility]) lymph % 22.7 % 24.0-44.0 Below low normal Lymph % ETHAN ( [facility]) neutrophils % 69.3 % 36.0-66.0 Above high normal Neutrophils % A THENA ([facility]) eos % 2.0 % 0.0-3.0 Eos % ETHAN ([facility]) mono % 5.2 % 0.0-5.[address] [facility] % ETHAN ([facility]) immature granulocyte % 0.3 % 0-3.0 Immature Gran ulocyte % ETHAN ([facility]) baso % 0.5 % 0.0-1.0 Baso % ETHAN ([facility]) neutrophils # 4.5 10 1.5-8.5 Neutrophils # ETHAN ( [facility]) lymph # 1.5 10 1.5-5.0 Lymph # ETHAN ([facility]) nucleated red blood cell % 0.0 % 0-0 Nucleated Red Blood Cell % ETHAN ([facility]) mono # 0.3 10 0.0-0.8 [facility] # ETHAN ([facility]) eos # 0.1 10 0.0-0.5 Eos # ETHAN ([facility]) baso # 0.0 10 0.0-0.2 Baso # ETHAN ([facility]) ID Date Data Source [id number] 03/19/2020 11:23:00 AM EST ETHAN ([facility]) Name Value Range Interpretation Code Description Data Dee Dee rce(s) Supporting Document(s) lipase 189 U/L 73-393 Lipase ETHAN ([facility]) ID Date Data Source [id number] 03/19/2020 11:23:00 AM EST ETHAN ([facility]) Name Value Range Interpretation Code Description Data Dee Dee rce(s) Supporting Document(s) amylase 14 U/L 25-115 Below low normal Amylase ERIE ( [facility]) ID Date Data Source [id number] 03/19/2020 11:23:00 AM EST ETHAN ([facility]) Name Value Range Interpretation Code Description Data Dee Dee rce(s) Supporting Document(s) glucose, fasting 328 mg/dL 70-100 Above high normal Glucose, Fas ting ERIE ([facility]) blood urea nitrogen 11 mg/dL 7-18 Blood Urea Nitro gen ETHAN ([facility]) creatinine for GFR 0.74 mg/dL 0.55-1.30 Creatinine for GF R ETHAN ([facility]) glomerular filtration rate > 60.0 >58 Glomerula r Filtration Rate ETHAN ([facility]) potassium serum 4.4 mEq/L 3.5-5.1 Potassium Serum ATHE NA ([facility]) sodium level 134 mEq/L 136-145 Below low normal Sodium Level ATHE NA ([facility]) carbon dioxide level 26 mEq/L 21-32 Carbon Dioxide Level ETHAN ([facility]) chloride level 98 mEq/L 98-107 Chloride Level ETHAN ([facility]) anion gap 10 mEq/L 8-16 Anion Gap ETHAN ([facility]) AST/SGOT 16 U/L 7-37 AST/SGOT ETHAN ([facility]) calcium level 8.9 mg/dL 8.5-10.1 Calcium Level ETHAN ( [facility]) alkaline phosphatase 96 U/L 45-117 Alkaline Phosph atase ETHAN ([facility]) ALT/SGPT 35 U/L 12-78 ALT/SGPT ETHAN ([facility]) albumin 3.6 gm/dL 3.2-5.2 Albumin ETHAN ([facility]) bilirubin,total 0.3 mg/dL 0.2-1.0 Bilirubin,total ATHE NA ([facility]) total protein 6.4 gm/dL 6.4-8.2 Total Protein ETHAN ( [facility]) albumin/globulin ratio 1.2-2.2 Albumin/globu paola Ratio ETHAN ([facility]) ID Date Data Source [id number] 03/19/2020 11:23:00 AM EST ETHAN ([facility]) Name Value Range Interpretation Code Description Data Dee Dee rce(s) Supporting Document(s) white blood count 6.5 10 4.0-10.0 White Blood Count ETHAN ([facility]) red blood count 4.55 10 4.00-5.40 Red Blood Count ATHE ([facility]) hemoglobin 13.3 g/dL 12.0-15.5 Hemoglobin ETHAN ([facility]) hematocrit 41.5 % 36.0-47.0 Hematocrit ETHAN ([facility]) mean corpuscular volume 91.2 fL 80.0-96.0 Mean Corpusc ular Volume ETHAN ([facility]) mean corpuscular hemoglobin 29.2 pg 27.0-33.0 Mean Cor puscular Hemoglobin ETHAN ([facility]) red cell distribution width 13.2 % 11.5-14.5 Red Cell Distribution Width ETHAN ([facility]) mean corpuscular HGB conc 32.0 g/dL 32.0-36.5 Mean Corpu scular HGB Conc ETHAN ([facility]) platelet count, automated 276 10 150-450 Platelet C ount, Automated ETHAN ([facility]) neutrophils % 69.3 % 36.0-66.0 Above high normal Neutrophils % A THENA ([facility]) lymph % 22.7 % 24.0-44.0 Below low normal Lymph % ETHAN ( [facility]) mono % 5.2 % 0.0-5.[address] [facility] % ETHAN ([facility]) eos % 2.0 % 0.0-3.0 Eos % ETHAN ([facility]) baso % 0.5 % 0.0-1.0 Baso % ETAHN ([facility]) immature granulocyte % 0.3 % 0-3.0 Immature Gran ulocyte % ETHAN ([facility]) neutrophils # 4.5 10 1.5-8.5 Neutrophils # ERIE ( [facility]) nucleated red blood cell % 0.0 % 0-0 Nucleated Red Blood Cell % ETHAN ([facility]) mono # 0.3 10 0.0-0.8 [facility] # ETHAN ([facility]) lymph # 1.5 10 1.5-5.0 Lymph # ETHAN ([facility]) eos # 0.1 10 0.0-0.5 Eos # ETHAN ([facility]) baso # 0.0 10 0.0-0.2 Baso # ETHAN ([facility]) ID Date Data Source [id number] 03/19/2020 11:23:00 AM EST ETHAN ([facility]) Name Value Range Interpretation Code Description Data Dee Dee rce(s) Supporting Document(s) lipase 189 U/L 73-393 Lipase ETHAN ([facility]) ID Date Data Source [id number] 03/19/2020 11:23:00 AM EST ETHAN ([facility]) Name Value Range Interpretation Code Description Data Dee Dee rce(s) Supporting Document(s) amylase 14 U/L 25-115 Below low normal Amylase ETHAN ( [facility]) ID Date Data Source [id number] 03/19/2020 11:23:00 AM EST ETHAN ([facility]) Name Value Range Interpretation Code Description Data Dee Dee rce(s) Supporting Document(s) blood urea nitrogen 11 mg/dL 7-18 Blood Urea Nitro gen ETHAN ([facility]) glucose, fasting 328 mg/dL 70-100 Above high normal Glucose, Fas ting ETHAN ([facility]) creatinine for GFR 0.74 mg/dL 0.55-1.30 Creatinine for GF R ETHAN ([facility]) sodium level 134 mEq/L 136-145 Below low normal Sodium Level ATHE NA ([facility]) glomerular filtration rate > 60.0 >58 Glomerula r Filtration Rate ETHAN ([facility]) carbon dioxide level 26 mEq/L 21-32 Carbon Dioxide Level ETHAN ([facility]) chloride level 98 mEq/L 98-107 Chloride Level ETHAN ([facility]) potassium serum 4.4 mEq/L 3.5-5.1 Potassium Serum ATHE NA ([facility]) anion gap 10 mEq/L 8-16 Anion Gap ETHAN ([facility]) calcium level 8.9 mg/dL 8.5-10.1 Calcium Level ETHAN ( [facility]) AST/SGOT 16 U/L 7-37 AST/SGOT ETHAN ([facility]) alkaline phosphatase 96 U/L 45-117 Alkaline Phosph atase ETHAN ([facility]) ALT/SGPT 35 U/L 12-78 ALT/SGPT ETHAN ([facility]) albumin 3.6 gm/dL 3.2-5.2 Albumin ETHAN ([facility]) total protein 6.4 gm/dL 6.4-8.2 Total Protein ETHAN ( [facility]) bilirubin,total 0.3 mg/dL 0.2-1.0 Bilirubin,total ATHE NA ([facility]) albumin/globulin ratio 1.2-2.2 Albumin/globu paola Ratio ETHAN ([facility]) ID Date Data Source [id number] 03/19/2020 11:23:00 AM EST ETHAN ([facility]) Name Value Range Interpretation Code Description Data Dee Dee rce(s) Supporting Document(s) white blood count 6.5 10 4.0-10.0 White Blood Count ETHAN ([facility]) red blood count 4.55 10 4.00-5.40 Red Blood Count ATHE NA ([facility]) hemoglobin 13.3 g/dL 12.0-15.5 Hemoglobin ETHAN ([facility]) hematocrit 41.5 % 36.0-47.0 Hematocrit ETHAN ([facility]) mean corpuscular volume 91.2 fL 80.0-96.0 Mean Corpusc ular Volume ETHAN ([facility]) mean corpuscular HGB conc 32.0 g/dL 32.0-36.5 Mean Corpu scular HGB Conc ETHAN ([facility]) red cell distribution width 13.2 % 11.5-14.5 Red Cell Distribution Width ETHAN ([facility]) mean corpuscular hemoglobin 29.2 pg 27.0-33.0 Mean Cor puscular Hemoglobin ETHAN ([facility]) platelet count, automated 276 10 150-450 Platelet C ount, Automated ETHAN ([facility]) neutrophils % 69.3 % 36.0-66.0 Above high normal Neutrophils % A THENA ([facility]) lymph % 22.7 % 24.0-44.0 Below low normal Lymph % ETHAN ( [facility]) mono % 5.2 % 0.0-5.[address] [facility] % ETHAN ([facility]) eos % 2.0 % 0.0-3.0 Eos % ETHAN ([facility]) immature granulocyte % 0.3 % 0-3.0 Immature Gran ulocyte % ETHAN ([facility]) baso % 0.5 % 0.0-1.0 Baso % ETHAN ([facility]) neutrophils # 4.5 10 1.5-8.5 Neutrophils # ETHAN ( [facility]) nucleated red blood cell % 0.0 % 0-0 Nucleated Red Blood Cell % ETHAN ([facility]) lymph # 1.5 10 1.5-5.0 Lymph # ETHAN ([facility]) mono # 0.3 10 0.0-0.8 [facility] # ETHAN ([facility]) eos # 0.1 10 0.0-0.5 Eos # ETHAN ([facility]) baso # 0.0 10 0.0-0.2 Baso # ETHAN ([facility]) ID Date Data Source [id number] 03/19/2020 11:23:00 AM EST ETHAN ([facility]) Name Value Range Interpretation Code Description Data Dee Dee rce(s) Supporting Document(s) lipase 189 U/L 73-393 Lipase ETHAN ([facility]) ID Date Data Source [id number] 03/19/2020 11:23:00 AM EST ETHAN ([facility]) Name Value Range Interpretation Code Description Data Dee Dee rce(s) Supporting Document(s) amylase 14 U/L 25-115 Below low normal Amylase ERIE ( [facility]) ID Date Data Source [id number] 03/19/2020 11:23:00 AM EST ETHAN ([facility]) Name Value Range Interpretation Code Description Data Dee Dee rce(s) Supporting Document(s) glucose, fasting 328 mg/dL 70-100 Above high normal Glucose, Fas ting ETHAN ([facility]) blood urea nitrogen 11 mg/dL 7-18 Blood Urea Nitro gen ETHAN ([facility]) creatinine for GFR 0.74 mg/dL 0.55-1.30 Creatinine for GF R ETHAN ([facility]) glomerular filtration rate > 60.0 >58 Glomerula r Filtration Rate ETHAN ([facility]) potassium serum 4.4 mEq/L 3.5-5.1 Potassium Serum ATHE NA ([facility]) sodium level 134 mEq/L 136-145 Below low normal Sodium Level ATHE NA ([facility]) carbon dioxide level 26 mEq/L 21-32 Carbon Dioxide Level ETHAN ([facility]) chloride level 98 mEq/L 98-107 Chloride Level ETHAN ([facility]) anion gap 10 mEq/L 8-16 Anion Gap ETHAN ([facility]) calcium level 8.9 mg/dL 8.5-10.1 Calcium Level ETHAN ( [facility]) AST/SGOT 16 U/L 7-37 AST/SGOT [facility] ([facility]) ALT/SGPT 35 U/L 12-78 ALT/SGPT ETHAN ([facility]) alkaline phosphatase 96 U/L 45-117 Alkaline Phosph atase ETHAN ([facility]) bilirubin,total 0.3 mg/dL 0.2-1.0 Bilirubin,total ATHE NA ([facility]) total protein 6.4 gm/dL 6.4-8.2 Total Protein ETHAN ( [facility]) albumin 3.6 gm/dL 3.2-5.2 Albumin ETHAN ([facility]) albumin/globulin ratio 1.2-2.2 Albumin/globu paola Ratio ETHAN ([facility]) ID Date Data Source [id number] 03/19/2020 11:23:00 AM EST ETHAN ([facility]) Name Value Range Interpretation Code Description Data Dee Dee rce(s) Supporting Document(s) white blood count 6.5 10 4.0-10.0 White Blood Count ETHAN ([facility]) hemoglobin 13.3 g/dL 12.0-15.5 Hemoglobin ETHAN ([facility]) red blood count 4.55 10 4.00-5.40 Red Blood Count ATHE ([facility]) hematocrit 41.5 % 36.0-47.0 Hematocrit ETHAN ([facility]) mean corpuscular volume 91.2 fL 80.0-96.0 Mean Corpusc ular Volume ETHAN ([facility]) red cell distribution width 13.2 % 11.5-14.5 Red Cell Distribution Width [facility]AN ([facility]) mean corpuscular hemoglobin 29.2 pg 27.0-33.0 Mean Cor puscular Hemoglobin ETHAN ([facility]) mean corpuscular HGB conc 32.0 g/dL 32.0-36.5 Mean Corpu scular HGB Conc ETHAN ([facility]) platelet count, automated 276 10 150-450 Platelet C ount, Automated ETHAN ([facility]) neutrophils % 69.3 % 36.0-66.0 Above high normal Neutrophils % A THENA ([facility]) mono % 5.2 % 0.0-5.[address] [facility] % ETHAN ([facility]) lymph % 22.7 % 24.0-44.0 Below low normal Lymph % ETHAN ( [facility]) eos % 2.0 % 0.0-3.0 Eos % ETHAN ([facility]) baso % 0.5 % 0.0-1.0 Baso % ETHAN ([facility]) immature granulocyte % 0.3 % 0-3.0 Immature Gran ulocyte % ETHAN ([facility]) neutrophils # 4.5 10 1.5-8.5 Neutrophils # ETHAN ( [facility]) nucleated red blood cell % 0.0 % 0-0 Nucleated Red Blood Cell % ETHAN ([facility]) lymph # 1.5 10 1.5-5.0 Lymph # ETHAN ([facility]) mono # 0.3 10 0.0-0.8 [facility] # ETHAN ([facility]) eos # 0.1 10 0.0-0.5 Eos # ETHAN ([facility]) baso # 0.0 10 0.0-0.2 Baso # ETHAN ([facility]) ID Date Data Source [id number] 03/19/2020 11:23:00 AM EST ETHAN ([facility]) Name Value Range Interpretation Code Description Data Dee Dee rce(s) Supporting Document(s) lipase 189 U/L 73-393 Lipase ETHAN ([facility]) ID Date Data Source [id number] 03/19/2020 11:23:00 AM EST ETHAN ([facility]) Name Value Range Interpretation Code Description Data Dee Dee rce(s) Supporting Document(s) amylase 14 U/L 25-115 Below low normal Amylase ETHAN ( [facility]) ID Date Data Source [id number] 03/19/2020 11:23:00 AM EST ETHAN ([facility]) Name Value Range Interpretation Code Description Data Dee Dee rce(s) Supporting Document(s) glucose, fasting 328 mg/dL 70-100 Above high normal Glucose, Fas ting ERIE ([facility]) blood urea nitrogen 11 mg/dL 7-18 Blood Urea Nitro gen ETHAN ([facility]) creatinine for GFR 0.74 mg/dL 0.55-1.30 Creatinine for GF R ERIE ([facility]) glomerular filtration rate > 60.0 >58 Glomerula r Filtration Rate ETHAN ([facility]) sodium level 134 mEq/L 136-145 Below low normal Sodium Level ATHE ([facility]) potassium serum 4.4 mEq/L 3.5-5.1 Potassium Serum [facility] ([facility]) chloride level 98 mEq/L 98-107 Chloride Level ERIE ([facility]) anion gap 10 mEq/L 8-16 Anion Gap ERIE ([facility]) carbon dioxide level 26 mEq/L 21-32 Carbon Dioxide Level ETHAN ([facility]) AST/SGOT 16 U/L 7-37 AST/SGOT ETHAN ([facility]) calcium level 8.9 mg/dL 8.5-10.1 Calcium Level ETHAN ( [facility]) alkaline phosphatase 96 U/L 45-117 Alkaline Phosph atase ETHAN ([facility]) ALT/SGPT 35 U/L 12-78 ALT/SGPT ETHAN ([facility]) bilirubin,total 0.3 mg/dL 0.2-1.0 Bilirubin,total ATHE ([facility]) total protein 6.4 gm/dL 6.4-8.2 Total Protein ETHAN ( [facility]) albumin 3.6 gm/dL 3.2-5.2 Albumin ETHAN ([facility]) albumin/globulin ratio 1.2-2.2 Albumin/globu paola Ratio ETHAN ([facility]) ID Date Data Source [id number] 03/19/2020 11:23:00 AM EST ETHAN ([facility]) Name Value Range Interpretation Code Description Data Dee Dee rce(s) Supporting Document(s) white blood count 6.5 10 4.0-10.0 White Blood Count ETHAN ([facility]) red blood count 4.55 10 4.00-5.40 Red Blood Count ATHE ([facility]) hematocrit 41.5 % 36.0-47.0 Hematocrit ETHAN ([facility]) hemoglobin 13.3 g/dL 12.0-15.5 Hemoglobin ETHAN ([facility]) mean corpuscular volume 91.2 fL 80.0-96.0 Mean Corpusc ular Volume ETHAN ([facility]) mean corpuscular hemoglobin 29.2 pg 27.0-33.0 Mean Cor puscular Hemoglobin ETHAN ([facility]) red cell distribution width 13.2 % 11.5-14.5 Red Cell Distribution Width ETHAN ([facility]) mean corpuscular HGB conc 32.0 g/dL 32.0-36.5 Mean Corpu scular HGB Conc ETHAN ([facility]) platelet count, automated 276 10 150-450 Platelet C ount, Automated ETHAN ([facility]) neutrophils % 69.3 % 36.0-66.0 Above high normal Neutrophils % A THENA ([facility]) mono % 5.2 % 0.0-5.[address] [facility] % ETHAN ([facility]) lymph % 22.7 % 24.0-44.0 Below low normal Lymph % ETHAN ( [facility]) eos % 2.0 % 0.0-3.0 Eos % ETHAN ([facility]) baso % 0.5 % 0.0-1.0 Baso % ETHAN ([facility]) immature granulocyte % 0.3 % 0-3.0 Immature Gran ulocyte % ETHAN ([facility]) nucleated red blood cell % 0.0 % 0-0 Nucleated Red Blood Cell % ETHAN ([facility]) lymph # 1.5 10 1.5-5.0 Lymph # ETHAN ([facility]) neutrophils # 4.5 10 1.5-8.5 Neutrophils # ETHAN ( [facility]) mono # 0.3 10 0.0-0.8 [facility] # ETHAN ([facility]) eos # 0.1 10 0.0-0.5 Eos # ETHAN ([facility]) baso # 0.0 10 0.0-0.2 Baso # ETHAN ([facility]) ID Date Data Source [id number] 03/19/2020 11:23:00 AM EST ETHAN ([facility]) Name Value Range Interpretation Code Description Data Dee Dee rce(s) Supporting Document(s) lipase 189 U/L 73-393 Lipase ERIE ([facility]) ID Date Data Source [id number] 03/19/2020 11:23:00 AM EST ETHAN ([facility]) Name Value Range Interpretation Code Description Data Dee Dee rce(s) Supporting Document(s) amylase 14 U/L 25-115 Below low normal Amylase ERIE ( [facility]) ID Date Data Source [id number] 03/19/2020 11:23:00 AM EST ETHAN ([facility]) Name Value Range Interpretation Code Description Data Dee Dee rce(s) Supporting Document(s) glucose, fasting 328 mg/dL 70-100 Above high normal Glucose, Fas ting ERIE ([facility]) creatinine for GFR 0.74 mg/dL 0.55-1.30 Creatinine for GF R ERIE ([facility]) blood urea nitrogen 11 mg/dL 7-18 Blood Urea Nitro gen ETHAN ([facility]) glomerular filtration rate > 60.0 >58 Glomerula r Filtration Rate ETHAN ([facility]) potassium serum 4.4 mEq/L 3.5-5.1 Potassium Serum ATHE NA ([facility]) sodium level 134 mEq/L 136-145 Below low normal Sodium Level ATHE NA ([facility]) carbon dioxide level 26 mEq/L 21-32 Carbon Dioxide Level ETHAN ([facility]) anion gap 10 mEq/L 8-16 Anion Gap ETHAN ([facility]) chloride level 98 mEq/L 98-107 Chloride Level ETHAN ([facility]) calcium level 8.9 mg/dL 8.5-10.1 Calcium Level ETHAN ( [facility]) AST/SGOT 16 U/L 7-37 AST/SGOT ETHAN ([facility]) ALT/SGPT 35 U/L 12-78 ALT/SGPT ETHAN ([facility]) total protein 6.4 gm/dL 6.4-8.2 Total Protein ETHAN ( [facility]) alkaline phosphatase 96 U/L 45-117 Alkaline Phosph atase ETHAN ([facility]) bilirubin,total 0.3 mg/dL 0.2-1.0 Bilirubin,total ATHE ([facility]) albumin 3.6 gm/dL 3.2-5.2 Albumin ETHAN ([facility]) albumin/globulin ratio 1.2-2.2 Albumin/globu paola Ratio ETHAN ([facility]) ID Date Data Source [id number] 03/19/2020 11:23:00 AM EST ETHAN ([facility]) Name Value Range Interpretation Code Description Data Dee Dee rce(s) Supporting Document(s) white blood count 6.5 10 4.0-10.0 White Blood Count ETHAN ([facility]) hematocrit 41.5 % 36.0-47.0 Hematocrit ETHAN ([facility]) hemoglobin 13.3 g/dL 12.0-15.5 Hemoglobin ETHAN ([facility]) red blood count 4.55 10 4.00-5.40 Red Blood Count ATHE NA ([facility]) mean corpuscular hemoglobin 29.2 pg 27.0-33.0 Mean Cor puscular Hemoglobin ETHAN ([facility]) mean corpuscular volume 91.2 fL 80.0-96.0 Mean Corpusc ular Volume ETHAN ([facility]) red cell distribution width 13.2 % 11.5-14.5 Red Cell Distribution Width ETHAN ([facility]) mean corpuscular HGB conc 32.0 g/dL 32.0-36.5 Mean Corpu scular HGB Conc ETHAN ([facility]) neutrophils % 69.3 % 36.0-66.0 Above high normal Neutrophils % A THENA ([facility]) lymph % 22.7 % 24.0-44.0 Below low normal Lymph % ETHAN ( [facility]) platelet count, automated 276 10 150-450 Platelet C ount, Automated ETHAN ([facility]) baso % 0.5 % 0.0-1.0 Baso % ETHAN ([facility]) eos % 2.0 % 0.0-3.0 Eos % ETHAN ([facility]) mono % 5.2 % 0.0-5.[address] [facility] % ETHAN ([facility]) immature granulocyte % 0.3 % 0-3.0 Immature Gran ulocyte % ETHAN ([facility]) nucleated red blood cell % 0.0 % 0-0 Nucleated Red Blood Cell % ETHAN ([facility]) mono # 0.3 10 0.0-0.8 [facility] # ETHAN ([facility]) neutrophils # 4.5 10 1.5-8.5 Neutrophils # ETHAN ( [facility]) lymph # 1.5 10 1.5-5.0 Lymph # ETHAN ([facility]) eos # 0.1 10 0.0-0.5 Eos # ETHAN ([facility]) baso # 0.0 10 0.0-0.2 Baso # ETHAN ([facility]) ID Date Data Source [id number] 03/19/2020 11:23:00 AM EST ETHAN ([facility]) Name Value Range Interpretation Code Description Data Dee Dee rce(s) Supporting Document(s) lipase 189 U/L 73-393 Lipase ETHAN ([facility]) ID Date Data Source [id number] 03/19/2020 11:23:00 AM EST ETHAN ([facility]) Name Value Range Interpretation Code Description Data Dee Dee rce(s) Supporting Document(s) amylase 14 U/L 25-115 Below low normal Amylase ETHAN ( [facility]) ID Date Data Source [id number] 03/19/2020 11:23:00 AM EST ETHAN ([facility]) Name Value Range Interpretation Code Description Data Dee Dee rce(s) Supporting Document(s) glucose, fasting 328 mg/dL 70-100 Above high normal Glucose, Fas ting ETHAN ([facility]) blood urea nitrogen 11 mg/dL 7-18 Blood Urea Nitro gen ETHAN ([facility]) glomerular filtration rate > 60.0 >58 Glomerula r Filtration Rate ETHAN ([facility]) creatinine for GFR 0.74 mg/dL 0.55-1.30 Creatinine for GF R ETHAN ([facility]) potassium serum 4.4 mEq/L 3.5-5.1 Potassium Serum ATHE NA ([facility]) chloride level 98 mEq/L 98-107 Chloride Level ETHAN ([facility]) sodium level 134 mEq/L 136-145 Below low normal Sodium Level ATHE NA ([facility]) carbon dioxide level 26 mEq/L 21-32 Carbon Dioxide Level ETHAN ([facility]) anion gap 10 mEq/L 8-16 Anion Gap ETHAN ([facility]) calcium level 8.9 mg/dL 8.5-10.1 Calcium Level ETHAN ( [facility]) AST/SGOT 16 U/L 7-37 AST/SGOT ETHAN ([facility]) bilirubin,total 0.3 mg/dL 0.2-1.0 Bilirubin,total ATHE NA ([facility]) alkaline phosphatase 96 U/L 45-117 Alkaline Phosph atase ETHAN ([facility]) ALT/SGPT 35 U/L 12-78 ALT/SGPT ETHAN ([facility]) total protein 6.4 gm/dL 6.4-8.2 Total Protein ETHAN ( [facility]) albumin 3.6 gm/dL 3.2-5.2 Albumin ETHAN ([facility]) albumin/globulin ratio 1.2-2.2 Albumin/globu paola Ratio ETHAN ([facility]) ID Date Data Source [id number] 03/19/2020 11:23:00 AM EST ETHAN ([facility]) Name Value Range Interpretation Code Description Data Dee Dee rce(s) Supporting Document(s) white blood count 6.5 10 4.0-10.0 White Blood Count ETHAN ([facility]) red blood count 4.55 10 4.00-5.40 Red Blood Count ATHE ([facility]) hemoglobin 13.3 g/dL 12.0-15.5 Hemoglobin ETHAN ([facility]) mean corpuscular volume 91.2 fL 80.0-96.0 Mean Corpusc ular Volume ETHAN ([facility]) hematocrit 41.5 % 36.0-47.0 Hematocrit ETHAN ([facility]) mean corpuscular hemoglobin 29.2 pg 27.0-33.0 Mean Cor puscular Hemoglobin ETHAN ([facility]) red cell distribution width 13.2 % 11.5-14.5 Red Cell Distribution Width ETHAN ([facility]) mean corpuscular HGB conc 32.0 g/dL 32.0-36.5 Mean Corpu scular HGB Conc ETHAN ([facility]) platelet count, automated 276 10 150-450 Platelet C ount, Automated ETHAN ([facility]) neutrophils % 69.3 % 36.0-66.0 Above high normal Neutrophils % A THENA ([facility]) lymph % 22.7 % 24.0-44.0 Below low normal Lymph % ETHAN ( [facility]) mono % 5.2 % 0.0-5.[address] [facility] % ETHAN ([facility]) eos % 2.0 % 0.0-3.0 Eos % ETHAN ([facility]) baso % 0.5 % 0.0-1.0 Baso % ETHAN ([facility]) immature granulocyte % 0.3 % 0-3.0 Immature Gran ulocyte % ETHAN ([facility]) lymph # 1.5 10 1.5-5.0 Lymph # ETHAN ([facility]) neutrophils # 4.5 10 1.5-8.5 Neutrophils # ETHAN ( [facility]) nucleated red blood cell % 0.0 % 0-0 Nucleated Red Blood Cell % ETHAN ([facility]) baso # 0.0 10 0.0-0.2 Baso # ETHAN ([facility]) mono # 0.3 10 0.0-0.8 [facility] # ETHAN ([facility]) eos # 0.1 10 0.0-0.5 Eos # ETHAN ([facility]) ID Date Data Source [id number] 03/19/2020 11:23:00 AM EST ETHAN ([facility]) Name Value Range Interpretation Code Description Data Dee Dee rce(s) Supporting Document(s) lipase 189 U/L 73-393 Lipase ETHAN ([facility]) ID Date Data Source [id number] 03/19/2020 11:23:00 AM EST ETHAN ([facility]) Name Value Range Interpretation Code Description Data Dee Dee rce(s) Supporting Document(s) amylase 14 U/L 25-115 Below low normal Amylase ETHAN ( [facility]) ID Date Data Source [id number] 03/19/2020 11:23:00 AM EST ETHAN ([facility]) Name Value Range Interpretation Code Description Data Dee Dee rce(s) Supporting Document(s) glucose, fasting 328 mg/dL 70-100 Above high normal Glucose, Fas ting ETHAN ([facility]) blood urea nitrogen 11 mg/dL 7-18 Blood Urea Nitro gen ETHAN ([facility]) creatinine for GFR 0.74 mg/dL 0.55-1.30 Creatinine for GF R ETHAN ([facility]) glomerular filtration rate > 60.0 >58 Glomerula r Filtration Rate ETHAN ([facility]) sodium level 134 mEq/L 136-145 Below low normal Sodium Level ATHE NA ([facility]) potassium serum 4.4 mEq/L 3.5-5.1 Potassium Serum ATHE ([facility]) chloride level 98 mEq/L 98-107 Chloride Level ETHAN ([facility]) anion gap 10 mEq/L 8-16 Anion Gap ETHAN ([facility]) carbon dioxide level 26 mEq/L 21-32 Carbon Dioxide Level ETHAN ([facility]) AST/SGOT 16 U/L 7-37 AST/SGOT ETHAN ([facility]) calcium level 8.9 mg/dL 8.5-10.1 Calcium Level ETHAN ( [facility]) ALT/SGPT 35 U/L 12-78 ALT/SGPT ETHAN ([facility]) bilirubin,total 0.3 mg/dL 0.2-1.0 Bilirubin,total ATHE ([facility]) total protein 6.4 gm/dL 6.4-8.2 Total Protein ETHAN ( [facility]) alkaline phosphatase 96 U/L 45-117 Alkaline Phosph atase ETHAN ([facility]) albumin/globulin ratio 1.2-2.2 Albumin/globu paola Ratio ETHAN ([facility]) albumin 3.6 gm/dL 3.2-5.2 Albumin ETHAN ([facility]) ID Date Data Source [id number] 03/19/2020 11:23:00 AM EST ETHAN ([facility]) Name Value Range Interpretation Code Description Data Dee Dee rce(s) Supporting Document(s) white blood count 6.5 10 4.0-10.0 White Blood Count ETHAN ([facility]) hemoglobin 13.3 g/dL 12.0-15.5 Hemoglobin ETHAN ([facility]) red blood count 4.55 10 4.00-5.40 Red Blood Count ATHE NA ([facility]) mean corpuscular volume 91.2 fL 80.0-96.0 Mean Corpusc ular Volume ETHAN ([facility]) hematocrit 41.5 % 36.0-47.0 Hematocrit ETHAN ([facility]) red cell distribution width 13.2 % 11.5-14.5 Red Cell Distribution Width ETHAN ([facility]) mean corpuscular hemoglobin 29.2 pg 27.0-33.0 Mean Cor puscular Hemoglobin ETHAN ([facility]) mean corpuscular HGB conc 32.0 g/dL 32.0-36.5 Mean Corpu scular HGB Conc ETHAN ([facility]) neutrophils % 69.3 % 36.0-66.0 Above high normal Neutrophils % A THENA ([facility]) platelet count, automated 276 10 150-450 Platelet C ount, Automated ETHAN ([facility]) lymph % 22.7 % 24.0-44.0 Below low normal Lymph % ETHAN ( [facility]) mono % 5.2 % 0.0-5.[address] [facility] % ETHAN ([facility]) eos % 2.0 % 0.0-3.0 Eos % ETHAN ([facility]) baso % 0.5 % 0.0-1.0 Baso % ETHAN ([facility]) immature granulocyte % 0.3 % 0-3.0 Immature Gran ulocyte % ETHAN ([facility]) nucleated red blood cell % 0.0 % 0-0 Nucleated Red Blood Cell % ETHAN ([facility]) lymph # 1.5 10 1.5-5.0 Lymph # ETHAN ([facility]) neutrophils # 4.5 10 1.5-8.5 Neutrophils # ETHAN ( [facility]) mono # 0.3 10 0.0-0.8 [facility] # ETHAN ([facility]) baso # 0.0 10 0.0-0.2 Baso # ETHAN ([facility]) eos # 0.1 10 0.0-0.5 Eos # ETHAN ([facility]) ID Date Data Source [id number] 03/19/2020 11:23:00 AM EST ETHAN ([facility]) Name Value Range Interpretation Code Description Data Dee Dee rce(s) Supporting Document(s) lipase 189 U/L 73-393 Lipase ETHAN ([facility]) ID Date Data Source [id number] 03/19/2020 11:23:00 AM EST ETHAN ([facility]) Name Value Range Interpretation Code Description Data Dee Dee rce(s) Supporting Document(s) amylase 14 U/L 25-115 Below low normal Amylase ERIE ( [facility]) ID Date Data Source [id number] 03/19/2020 11:23:00 AM EST ETHAN ([facility]) Name Value Range Interpretation Code Description Data Dee Dee rce(s) Supporting Document(s) glucose, fasting 328 mg/dL 70-100 Above high normal Glucose, Fas ting ETHAN ([facility]) glomerular filtration rate > 60.0 >58 Glomerula r Filtration Rate ETHAN ([facility]) creatinine for GFR 0.74 mg/dL 0.55-1.30 Creatinine for GF R ETHAN ([facility]) blood urea nitrogen 11 mg/dL 7-18 Blood Urea Nitro gen ETHAN ([facility]) sodium level 134 mEq/L 136-145 Below low normal Sodium Level ATHE NA ([facility]) potassium serum 4.4 mEq/L 3.5-5.1 Potassium Serum ATHE NA ([facility]) chloride level 98 mEq/L 98-107 Chloride Level ETHAN ([facility]) anion gap 10 mEq/L 8-16 Anion Gap ETHAN ([facility]) carbon dioxide level 26 mEq/L 21-32 Carbon Dioxide Level ETHAN ([facility]) AST/SGOT 16 U/L 7-37 AST/SGOT ETHAN ([facility]) calcium level 8.9 mg/dL 8.5-10.1 Calcium Level ETHAN ( [facility]) ALT/SGPT 35 U/L 12-78 ALT/SGPT ETHAN ([facility]) bilirubin,total 0.3 mg/dL 0.2-1.0 Bilirubin,total ATHE NA ([facility]) alkaline phosphatase 96 U/L 45-117 Alkaline Phosph atase ETHAN ([facility]) total protein 6.4 gm/dL 6.4-8.2 Total Protein ETHAN ( [facility]) albumin 3.6 gm/dL 3.2-5.2 Albumin ETHAN ([facility]) albumin/globulin ratio 1.2-2.2 Albumin/globu paola Ratio ETHAN ([facility]) ID Date Data Source [id number] 03/19/2020 11:23:00 AM EST ETHAN ([facility]) Name Value Range Interpretation Code Description Data Dee Dee rce(s) Supporting Document(s) white blood count 6.5 10 4.0-10.0 White Blood Count ETHAN ([facility]) red blood count 4.55 10 4.00-5.40 Red Blood Count ATHE NA ([facility]) mean corpuscular volume 91.2 fL 80.0-96.0 Mean Corpusc ular Volume ETHAN ([facility]) hematocrit 41.5 % 36.0-47.0 Hematocrit ETHAN ([facility]) hemoglobin 13.3 g/dL 12.0-15.5 Hemoglobin ETHAN ([facility]) mean corpuscular hemoglobin 29.2 pg 27.0-33.0 Mean Cor puscular Hemoglobin ETHAN ([facility]) mean corpuscular HGB conc 32.0 g/dL 32.0-36.5 Mean Corpu scular HGB Conc ETHAN ([facility]) neutrophils % 69.3 % 36.0-66.0 Above high normal Neutrophils % A THENA ([facility]) red cell distribution width 13.2 % 11.5-14.5 Red Cell Distribution Width ETHAN ([facility]) platelet count, automated 276 10 150-450 Platelet C ount, Automated ETHAN ([facility]) lymph % 22.7 % 24.0-44.0 Below low normal Lymph % ETHAN ( [facility]) mono % 5.2 % 0.0-5.[address] [facility] % ETHAN ([facility]) eos % 2.0 % 0.0-3.0 Eos % ETHAN ([facility]) baso % 0.5 % 0.0-1.0 Baso % ERIE ([facility]) nucleated red blood cell % 0.0 % 0-0 Nucleated Red Blood Cell % ETHAN ([facility]) immature granulocyte % 0.3 % 0-3.0 Immature Gran ulocyte % ETHAN ([facility]) lymph # 1.5 10 1.5-5.0 Lymph # ETHAN ([facility]) neutrophils # 4.5 10 1.5-8.5 Neutrophils # ETHAN ( [facility]) mono # 0.3 10 0.0-0.8 [facility] # ETHAN ([facility]) eos # 0.1 10 0.0-0.5 Eos # ETHAN ([facility]) baso # 0.0 10 0.0-0.2 Baso # ETHAN ([facility]) ID Date Data Source [id number] 03/19/2020 11:23:00 AM EST ETHAN ([facility]) Name Value Range Interpretation Code Description Data Dee Dee rce(s) Supporting Document(s) lipase 189 U/L 73-393 Lipase ETHAN ([facility]) ID Date Data Source [id number] 03/19/2020 11:23:00 AM EST ETHAN ([facility]) Name Value Range Interpretation Code Description Data Dee Dee rce(s) Supporting Document(s) amylase 14 U/L 25-115 Below low normal Amylase ETHAN ( [facility]) ID Date Data Source [id number] 03/19/2020 11:23:00 AM EST ETHAN ([facility]) Name Value Range Interpretation Code Description Data Dee Dee rce(s) Supporting Document(s) blood urea nitrogen 11 mg/dL 7-18 Blood Urea Nitro gen ETHAN ([facility]) glucose, fasting 328 mg/dL 70-100 Above high normal Glucose, Fas ting ETHAN ([facility]) creatinine for GFR 0.74 mg/dL 0.55-1.30 Creatinine for GF R ETHAN ([facility]) sodium level 134 mEq/L 136-145 Below low normal Sodium Level ATHE ([facility]) glomerular filtration rate > 60.0 >58 Glomerula r Filtration Rate ETHAN ([facility]) carbon dioxide level 26 mEq/L 21-32 Carbon Dioxide Level ETHAN ([facility]) potassium serum 4.4 mEq/L 3.5-5.1 Potassium Serum ATHE NA ([facility]) chloride level 98 mEq/L 98-107 Chloride Level ETHAN ([facility]) AST/SGOT 16 U/L 7-37 AST/SGOT ETHAN ([facility]) anion gap 10 mEq/L 8-16 Anion Gap ETHAN ([facility]) calcium level 8.9 mg/dL 8.5-10.1 Calcium Level ETHAN ( [facility]) alkaline phosphatase 96 U/L 45-117 Alkaline Phosph atase ETHAN ([facility]) ALT/SGPT 35 U/L 12-78 ALT/SGPT ETHAN ([facility]) bilirubin,total 0.3 mg/dL 0.2-1.0 Bilirubin,total ATHE NA ([facility]) albumin 3.6 gm/dL 3.2-5.2 Albumin ETHAN ([facility]) total protein 6.4 gm/dL 6.4-8.2 Total Protein ETHAN ( [facility]) albumin/globulin ratio 1.2-2.2 Albumin/globu paola Ratio ETHAN ([facility]) ID Date Data Source [id number] 03/19/2020 11:23:00 AM EST ETHAN ([facility]) Name Value Range Interpretation Code Description Data Dee Dee rce(s) Supporting Document(s) white blood count 6.5 10 4.0-10.0 White Blood Count ETHAN ([facility]) red blood count 4.55 10 4.00-5.40 Red Blood Count ATHE ([facility]) hematocrit 41.5 % 36.0-47.0 Hematocrit ETHAN ([facility]) hemoglobin 13.3 g/dL 12.0-15.5 Hemoglobin ETHAN ([facility]) mean corpuscular hemoglobin 29.2 pg 27.0-33.0 Mean Cor puscular Hemoglobin ETHAN ([facility]) mean corpuscular volume 91.2 fL 80.0-96.0 Mean Corpusc ular Volume ETHAN ([facility]) red cell distribution width 13.2 % 11.5-14.5 Red Cell Distribution Width ERIE ([facility]) platelet count, automated 276 10 150-450 Platelet C ount, Automated ETHAN ([facility]) mean corpuscular HGB conc 32.0 g/dL 32.0-36.5 Mean Corpu scular HGB Conc ETHAN ([facility]) lymph % 22.7 % 24.0-44.0 Below low normal Lymph % ERIE ( [facility]) mono % 5.2 % 0.0-5.[address] [facility] % ETHAN ([facility]) neutrophils % 69.3 % 36.0-66.0 Above high normal Neutrophils % A THENA ([facility]) eos % 2.0 % 0.0-3.0 Eos % ETHAN ([facility]) immature granulocyte % 0.3 % 0-3.0 Immature Gran ulocyte % ETHAN ([facility]) baso % 0.5 % 0.0-1.0 Baso % ETHAN ([facility]) nucleated red blood cell % 0.0 % 0-0 Nucleated Red Blood Cell % ETHAN ([facility]) neutrophils # 4.5 10 1.5-8.5 Neutrophils # ETHAN ( [facility]) lymph # 1.5 10 1.5-5.0 Lymph # ETHAN ([facility]) eos # 0.1 10 0.0-0.5 Eos # ETHAN ([facility]) mono # 0.3 10 0.0-0.8 [facility] # ETHAN ([facility]) baso # 0.0 10 0.0-0.2 Baso # ETHAN ([facility]) ID Date Data Source [id number] 03/19/2020 11:23:00 AM EST ETHAN ([facility]) Name Value Range Interpretation Code Description Data Dee Dee rce(s) Supporting Document(s) lipase 189 U/L 73-393 Lipase ETH[facility] ([facility]) ID Date Data Source [id number] 03/19/2020 11:23:00 AM EST ETHAN ([facility]) Name Value Range Interpretation Code Description Data Dee Dee rce(s) Supporting Document(s) amylase 14 U/L 25-115 Below low normal Amylase ERIE ( [facility]) ID Date Data Source [id number] 03/19/2020 11:23:00 AM EST ETHAN ([facility]) Name Value Range Interpretation Code Description Data Dee Dee rce(s) Supporting Document(s) glucose, fasting 328 mg/dL 70-100 Above high normal Glucose, Fas ting ETHAN ([facility]) blood urea nitrogen 11 mg/dL 7-18 Blood Urea Nitro gen ETHAN ([facility]) glomerular filtration rate > 60.0 >58 Glomerula r Filtration Rate ETHAN ([facility]) creatinine for GFR 0.74 mg/dL 0.55-1.30 Creatinine for GF R ETHAN ([facility]) sodium level 134 mEq/L 136-145 Below low normal Sodium Level ATHE NA ([facility]) potassium serum 4.4 mEq/L 3.5-5.1 Potassium Serum ATHE NA ([facility]) anion gap 10 mEq/L 8-16 Anion Gap ETHAN ([facility]) chloride level 98 mEq/L 98-107 Chloride Level ETHAN ([facility]) carbon dioxide level 26 mEq/L 21-32 Carbon Dioxide Level ETHAN ([facility]) calcium level 8.9 mg/dL 8.5-10.1 Calcium Level ETHAN ( [facility]) ALT/SGPT 35 U/L 12-78 ALT/SGPT [facility] ([facility]) AST/SGOT 16 U/L 7-37 AST/SGOT ETHAN ([facility]) alkaline phosphatase 96 U/L 45-117 Alkaline Phosph atase ETHAN ([facility]) bilirubin,total 0.3 mg/dL 0.2-1.0 Bilirubin,total ATHE ([facility]) albumin 3.6 gm/dL 3.2-5.2 Albumin ETHAN ([facility]) total protein 6.4 gm/dL 6.4-8.2 Total Protein ETHAN ( [facility]) albumin/globulin ratio 1.2-2.2 Albumin/globu paola Ratio ETHAN ([facility]) ID Date Data Source [id number] 03/19/2020 11:23:00 AM EST ETHAN ([facility]) Name Value Range Interpretation Code Description Data Dee Dee rce(s) Supporting Document(s) white blood count 6.5 10 4.0-10.0 White Blood Count ETHAN ([facility]) red blood count 4.55 10 4.00-5.40 Red Blood Count ATHE ([facility]) hemoglobin 13.3 g/dL 12.0-15.5 Hemoglobin ETHAN ([facility]) hematocrit 41.5 % 36.0-47.0 Hematocrit ETHAN ([facility]) mean corpuscular volume 91.2 fL 80.0-96.0 Mean Corpusc ular Volume ETHAN ([facility]) mean corpuscular hemoglobin 29.2 pg 27.0-33.0 Mean Cor puscular Hemoglobin ETHAN ([facility]) red cell distribution width 13.2 % 11.5-14.5 Red Cell Distribution Width ETHAN ([facility]) mean corpuscular HGB conc 32.0 g/dL 32.0-36.5 Mean Corpu scular HGB Conc ETHAN ([facility]) platelet count, automated 276 10 150-450 Platelet C ount, Automated ETHAN ([facility]) neutrophils % 69.3 % 36.0-66.0 Above high normal Neutrophils % A THENA ([facility]) lymph % 22.7 % 24.0-44.0 Below low normal Lymph % ERIE ( [facility]) mono % 5.2 % 0.0-5.[address] [facility] % ETHAN ([facility]) baso % 0.5 % 0.0-1.0 Baso % ETHAN ([facility]) eos % 2.0 % 0.0-3.0 Eos % ETHAN ([facility]) immature granulocyte % 0.3 % 0-3.0 Immature Gran ulocyte % ETHAN ([facility]) neutrophils # 4.5 10 1.5-8.5 Neutrophils # ETHAN ( [facility]) nucleated red blood cell % 0.0 % 0-0 Nucleated Red Blood Cell % ETHAN ([facility]) lymph # 1.5 10 1.5-5.0 Lymph # ETHAN ([facility]) mono # 0.3 10 0.0-0.8 [facility] # ETHAN ([facility]) eos # 0.1 10 0.0-0.5 Eos # ETHAN ([facility]) baso # 0.0 10 0.0-0.2 Baso # ETHAN ([facility]) ID Date Data Source [id number] 03/19/2020 11:23:00 AM EST ETHAN ([facility]) Name Value Range Interpretation Code Description Data Dee Dee rce(s) Supporting Document(s) lipase 189 U/L 73-393 Lipase ETHAN ([facility]) ID Date Data Source [id number] 03/19/2020 11:23:00 AM EST ETHAN ([facility]) Name Value Range Interpretation Code Description Data Dee Dee rce(s) Supporting Document(s) amylase 14 U/L 25-115 Below low normal Amylase ETHAN ( [facility]) ID Date Data Source [id number] 03/19/2020 11:23:00 AM EST ERIE ([facility]) Name Value Range Interpretation Code Description Data Dee Dee rce(s) Supporting Document(s) glucose, fasting 328 mg/dL 70-100 Above high normal Glucose, Fas ting ETHAN ([facility]) blood urea nitrogen 11 mg/dL 7-18 Blood Urea Nitro gen ETHAN ([facility]) creatinine for GFR 0.74 mg/dL 0.55-1.30 Creatinine for GF R ETHAN ([facility]) glomerular filtration rate > 60.0 >58 Glomerula r Filtration Rate ETHAN ([facility]) potassium serum 4.4 mEq/L 3.5-5.1 Potassium Serum ATHE NA ([facility]) sodium level 134 mEq/L 136-145 Below low normal Sodium Level ATHE NA ([facility]) chloride level 98 mEq/L 98-107 Chloride Level ETHAN ([facility]) carbon dioxide level 26 mEq/L 21-32 Carbon Dioxide Level ETHAN ([facility]) anion gap 10 mEq/L 8-16 Anion Gap ETHAN ([facility]) calcium level 8.9 mg/dL 8.5-10.1 Calcium Level ETHAN ( [facility]) AST/SGOT 16 U/L 7-37 AST/SGOT ETH[facility] ([facility]) ALT/SGPT 35 U/L 12-78 ALT/SGPT ETHAN ([facility]) alkaline phosphatase 96 U/L 45-117 Alkaline Phosph atase ETHAN ([facility]) total protein 6.4 gm/dL 6.4-8.2 Total Protein ETHAN ( [facility]) bilirubin,total 0.3 mg/dL 0.2-1.0 Bilirubin,total ATHE NA ([facility]) albumin 3.6 gm/dL 3.2-5.2 Albumin ETHAN ([facility]) albumin/globulin ratio 1.2-2.2 Albumin/globu paola Ratio ETHAN ([facility]) ID Date Data Source [id number] 03/19/2020 11:23:00 AM EST ETHAN ([facility]) Name Value Range Interpretation Code Description Data Dee Dee rce(s) Supporting Document(s) white blood count 6.5 10 4.0-10.0 White Blood Count ETHAN ([facility]) hemoglobin 13.3 g/dL 12.0-15.5 Hemoglobin ETHAN ([facility]) hematocrit 41.5 % 36.0-47.0 Hematocrit ETHAN ([facility]) red blood count 4.55 10 4.00-5.40 Red Blood Count ATHE NA ([facility]) mean corpuscular hemoglobin 29.2 pg 27.0-33.0 Mean Cor puscular Hemoglobin ETHAN ([facility]) mean corpuscular volume 91.2 fL 80.0-96.0 Mean Corpusc ular Volume ETHAN ([facility]) mean corpuscular HGB conc 32.0 g/dL 32.0-36.5 Mean Corpu scular HGB Conc ETHAN ([facility]) red cell distribution width 13.2 % 11.5-14.5 Red Cell Distribution Width ETHAN ([facility]) platelet count, automated 276 10 150-450 Platelet C ount, Automated ETHAN ([facility]) neutrophils % 69.3 % 36.0-66.0 Above high normal Neutrophils % A THENA ([facility]) lymph % 22.7 % 24.0-44.0 Below low normal Lymph % ETHAN ( [facility]) mono % 5.2 % 0.0-5.[address] [facility] % ETHAN ([facility]) baso % 0.5 % 0.0-1.0 Baso % ETHAN ([facility]) eos % 2.0 % 0.0-3.0 Eos % ETHAN ([facility]) immature granulocyte % 0.3 % 0-3.0 Immature Gran ulocyte % ETHAN ([facility]) nucleated red blood cell % 0.0 % 0-0 Nucleated Red Blood Cell % ETHAN ([facility]) neutrophils # 4.5 10 1.5-8.5 Neutrophils # ETHAN ( [facility]) lymph # 1.5 10 1.5-5.0 Lymph # ETHAN ([facility]) mono # 0.3 10 0.0-0.8 [facility] # ETHAN ([facility]) baso # 0.0 10 0.0-0.2 Baso # ETHAN ([facility]) eos # 0.1 10 0.0-0.5 Eos # ETHAN ([facility]) ID Date Data Source [id number] 03/19/2020 10:50:00 AM EST ETHAN ([facility]) Name Value Range Interpretation Code Description Data Dee Dee rce(s) Supporting Document(s) ID Date Data Source [id number] 03/19/2020 10:50:00 AM EST ETHAN ([facility]) Name Value Range Interpretation Code Description Data Dee Dee rce(s) Supporting Document(s) ID Date Data Source [id number] 03/19/2020 10:50:00 AM EST ETHAN ([facility]) Name Value Range Interpretation Code Description Data Dee Dee rce(s) Supporting Document(s) ID Date Data Source [id number] 03/19/2020 10:50:00 AM EST ETHAN ([facility]) Name Value Range Interpretation Code Description Data Dee Dee rce(s) Supporting Document(s) ID Date Data Source [id number] 03/19/2020 10:50:00 AM EST ETHAN ([facility]) Name Value Range Interpretation Code Description Data Dee Dee rce(s) Supporting Document(s) ID Date Data Source [id number] 03/19/2020 10:50:00 AM EST ETHAN ([facility]) Name Value Range Interpretation Code Description Data Dee Dee rce(s) Supporting Document(s) ID Date Data Source [id number] 03/19/2020 10:50:00 AM EST ETHAN ([facility]) Name Value Range Interpretation Code Description Data Dee Dee rce(s) Supporting Document(s) ID Date Data Source [id number] 03/19/2020 10:50:00 AM EST ETHAN ([facility]) Name Value Range Interpretation Code Description Data Dee Dee rce(s) Supporting Document(s) ID Date Data Source [id number] 03/19/2020 10:50:00 AM EST ETHAN ([facility]) Name Value Range Interpretation Code Description Data Dee Dee rce(s) Supporting Document(s) ID Date Data Source [id number] 03/19/2020 10:50:00 AM EST ETHAN ([facility]) Name Value Range Interpretation Code Description Data Dee Dee rce(s) Supporting Document(s) ID Date Data Source [id number] 03/19/2020 10:50:00 AM EST ETHAN [facility]) Name Value Range Interpretation Code Description Data Dee Dee rce(s) Supporting Document(s) ID Date Data Source [id number] 03/19/2020 10:50:00 AM EST ETHAN ([facility]) Name Value Range Interpretation Code Description Data Dee Dee rce(s) Supporting Document(s) ID Date Data Source [id number] 03/19/2020 10:50:00 AM EST ETHAN ([facility]) Name Value Range Interpretation Code Description Data Dee Dee rce(s) Supporting Document(s) ID Date Data Source [id number] 02/20/2020 09:08:00 AM EST ETHAN ([facility]) Name Value Range Interpretation Code Description Data Dee Dee rce(s) Supporting Document(s) ricky/creat ratio 94.4 mcg/mg 0.0-30.0 Above high normal Ricky/creat Ra tracy ETHAN ([facility]) malb urine siemens 118.0 mg/L Malb Urine Siemen s ETHAN ([facility]) creatinine, urine 125.0 mg/dL Creatinine, Urine ETHAN ([facility]) ID Date Data Source [id number] 02/20/2020 09:08:00 AM EST ETHAN ([facility]) Name Value Range Interpretation Code Description Data Dee Dee rce(s) Supporting Document(s) ricky/creat ratio 94.4 mcg/mg 0.0-30.0 Above high normal Ricky/creat Ra tracy ETHAN ([facility]) malb urine siemens 118.0 mg/L Malb Urine Siemen s ETHAN ([facility]) creatinine, urine 125.0 mg/dL Creatinine, Urine ETHAN ([facility]) ID Date Data Source [id number] 02/20/2020 09:08:00 AM EST ETHAN ([facility]) Name Value Range Interpretation Code Description Data Dee Dee rce(s) Supporting Document(s) malb urine siemens 118.0 mg/L Malb Urine Siemen s ETHAN ([facility]) creatinine, urine 125.0 mg/dL Creatinine, Urine ETHAN ([facility]) ricky/creat ratio 94.4 mcg/mg 0.0-30.0 Above high normal Ricky/creat Ra tracy ETHAN ([facility]) ID Date Data Source [id number] 02/20/2020 09:08:00 AM EST ETHAN ([facility]) Name Value Range Interpretation Code Description Data Dee Dee rce(s) Supporting Document(s) creatinine, urine 125.0 mg/dL Creatinine, Urine ETHAN ([facility]) malb urine siemens 118.0 mg/L Malb Urine Siemen s ETHAN ([facility]) ricky/creat ratio 94.4 mcg/mg 0.0-30.0 Above high normal Ricky/creat Ra tracy ETHAN ([facility]) ID Date Data Source [id number] 02/20/2020 09:08:00 AM EST ETHAN ([facility]) Name Value Range Interpretation Code Description Data Dee Dee rce(s) Supporting Document(s) creatinine, urine 125.0 mg/dL Creatinine, Urine ETHAN ([facility]) ricky/creat ratio 94.4 mcg/mg 0.0-30.0 Above high normal Ricky/creat Ra tracy ETHAN ([facility]) malb urine siemens 118.0 mg/L Malb Urine Siemen s ETHAN ([facility]) ID Date Data Source [id number] 02/20/2020 09:08:00 AM EST ETHAN ([facility]) Name Value Range Interpretation Code Description Data Dee Dee rce(s) Supporting Document(s) creatinine, urine 125.0 mg/dL Creatinine, Urine ETHAN ([facility]) malb urine siemens 118.0 mg/L Malb Urine Siemen s ETHAN ([facility]) ricky/creat ratio 94.4 mcg/mg 0.0-30.0 Above high normal Ricky/creat Ra tracy ETHAN ([facility]) ID Date Data Source [id number] 02/20/2020 09:08:00 AM EST ETHAN ([facility]) Name Value Range Interpretation Code Description Data Dee Dee rce(s) Supporting Document(s) malb urine siemens 118.0 mg/L Malb Urine Siemen s ETHAN ([facility]) creatinine, urine 125.0 mg/dL Creatinine, Urine [facility]AN ([facility]) ricky/creat ratio 94.4 mcg/mg 0.0-30.0 Above high normal Ricky/creat Ra tracy ETHAN ([facility]) ID Date Data Source [id number] 02/20/2020 09:08:00 AM EST ETHAN ([facility]) Name Value Range Interpretation Code Description Data Dee Dee rce(s) Supporting Document(s) ricky/creat ratio 94.4 mcg/mg 0.0-30.0 Above high normal Ricky/creat Ra tracy ETHAN ([facility]) malb urine siemens 118.0 mg/L Malb Urine Siemen s ETHAN ([facility]) creatinine, urine 125.0 mg/dL Creatinine, Urine ETHAN ([facility]) ID Date Data Source [id number] 02/20/2020 09:08:00 AM EST ETHAN ([facility]) Name Value Range Interpretation Code Description Data Dee Dee rce(s) Supporting Document(s) creatinine, urine 125.0 mg/dL Creatinine, Urine ETHAN ([facility]) malb urine siemens 118.0 mg/L Malb Urine Siemen s ETHAN ([facility]) ricky/creat ratio 94.4 mcg/mg 0.0-30.0 Above high normal Ricky/creat Ra tracy ETHAN ([facility]) ID Date Data Source [id number] 02/20/2020 09:08:00 AM EST ETHAN ([facility]) Name Value Range Interpretation Code Description Data Dee Dee rce(s) Supporting Document(s) creatinine, urine 125.0 mg/dL Creatinine, Urine ETHAN ([facility]) malb urine siemens 118.0 mg/L Malb Urine Siemen s ETHAN ([facility]) ricky/creat ratio 94.4 mcg/mg 0.0-30.0 Above high normal Ricky/creat Ra tracy ETHAN ([facility]) ID Date Data Source [id number] 02/20/2020 09:08:00 AM EST ETHAN ([facility]) Name Value Range Interpretation Code Description Data Dee Dee rce(s) Supporting Document(s) creatinine, urine 125.0 mg/dL Creatinine, Urine ETHAN ([facility]) ricky/creat ratio 94.4 mcg/mg 0.0-30.0 Above high normal Ricky/creat Ra tracy ETHAN ([facility]) malb urine siemens 118.0 mg/L Malb Urine Siemen s ETHAN ([facility]) ID Date Data Source [id number] 02/20/2020 09:08:00 AM EST ETHAN ([facility]) Name Value Range Interpretation Code Description Data Dee Dee rce(s) Supporting Document(s) creatinine, urine 125.0 mg/dL Creatinine, Urine ETHAN ([facility]) malb urine siemens 118.0 mg/L Malb Urine Siemen s ETHAN ([facility]) ricky/creat ratio 94.4 mcg/mg 0.0-30.0 Above high normal Ricky/creat Ra tracy ETHAN ([facility]) ID Date Data Source [id number] 02/20/2020 09:08:00 AM EST ETHAN ([facility]) Name Value Range Interpretation Code Description Data Dee Dee rce(s) Supporting Document(s) malb urine siemens 118.0 mg/L Malb Urine Siemen s ETHAN ([facility]) creatinine, urine 125.0 mg/dL Creatinine, Urine [facility] ([facility]) ricky/creat ratio 94.4 mcg/mg 0.0-30.0 Above high normal Ricky/creat Ra tracy ETHAN ([facility]) ID Date Data Source [id number] 02/20/2020 09:08:00 AM EST ETHAN ([facility]) Name Value Range Interpretation Code Description Data Dee Dee rce(s) Supporting Document(s) creatinine, urine 125.0 mg/dL Creatinine, Urine ETH[facility] ([facility]) malb urine siemens 118.0 mg/L Malb Urine Siemen s ETHAN ([facility]) ricky/creat ratio 94.4 mcg/mg 0.0-30.0 Above high normal Ricky/creat Ra tracy ETHAN ([facility]) ID Date Data Source [id number] 02/20/2020 09:08:00 AM EST ETHAN ([facility]) Name Value Range Interpretation Code Description Data Dee Dee rce(s) Supporting Document(s) malb urine siemens 118.0 mg/L Malb Urine Siemen s ETHAN ([facility]) creatinine, urine 125.0 mg/dL Creatinine, Urine ETHAN ([facility]) ricky/creat ratio 94.4 mcg/mg 0.0-30.0 Above high normal Ricky/creat Ra tracy ETHAN ([facility]) ID Date Data Source [id number] 02/20/2020 09:03:00 AM EST ETHAN ([facility]) Name Value Range Interpretation Code Description Data Dee Dee rce(s) Supporting Document(s) Hemoglobin A1c/Hemoglobin.total in Blood 10.5 % Hemoglobin a1C ERIE ([facility]) estimated average glucose 255 mg/dL 60-110 Above high norm al Estimated Average Glucose [facility]RIE ([facility]) ID Date Data Source [id number] 02/20/2020 09:03:00 AM EST ETHAN ([facility]) Name Value Range Interpretation Code Description Data Dee Dee rce(s) Supporting Document(s) ferritin 23 NG/mL 8-252 Ferritin [facility]AN ([facility]) ID Date Data Source [id number] 02/20/2020 09:03:00 AM EST ETHAN ([facility]) Name Value Range Interpretation Code Description Data Dee Dee rce(s) Supporting Document(s) total 25(oh) vitamin D 32.0 NG/mL 30.0-100.0 Total 25(Oh) Vitamin D ETHAN ([facility]) ID Date Data Source [id number] 02/20/2020 09:03:00 AM EST ETHAN ([facility]) Name Value Range Interpretation Code Description Data Dee Dee rce(s) Supporting Document(s) total iron binding capacity 289 ug/dL 250-450 Total Ir on Binding Capacity ETHAN ([facility]) iron (fe) 80 ug/dL 50-170 Iron (Fe) ETHAN ([facility]) percent saturation 27.7 % 13.2-45.0 Percent Saturatio n ETHAN ([facility]) ID Date Data Source [id number] 02/20/2020 09:03:00 AM EST ETHAN ([facility]) Name Value Range Interpretation Code Description Data Dee Dee rce(s) Supporting Document(s) triglycerides level 298 mg/dL <150 Above high normal Triglycer ides Level ETHAN ([facility]) HDL cholesterol 37 mg/dL >40 Below low normal HDL Cholestero l ETHAN ([facility]) cholesterol level 162 mg/dL <200 Cholesterol Level ETHAN ([facility]) Cholesterol in LDL [Mass/volume] in Serum or Plasma 65 mg/dL <1 00 LDL Cholesterol ETHAN ([facility]) non-HDL-C 125 mg/dL Non-hdl-c ETHAN ([facility]) cholesterol risk ratio <5 Cholesterol R isk Ratio ETHAN ([facility]) ID Date Data Source [id number] 02/20/2020 09:03:00 AM EST ETHAN ([facility]) Name Value Range Interpretation Code Description Data Dee Dee rce(s) Supporting Document(s) blood urea nitrogen 14 mg/dL 7-18 Blood Urea Nitro gen ETHAN ([facility]) glucose, fasting 236 mg/dL 70-100 Above high normal Glucose, Fas ting ETHAN ([facility]) sodium level 135 mEq/L 136-145 Below low normal Sodium Level ATHE ([facility]) creatinine for GFR 0.65 mg/dL 0.55-1.30 Creatinine for GF R ETHAN ([facility]) potassium serum 4.4 mEq/L 3.5-5.1 Potassium Serum ATHE ([facility]) glomerular filtration rate > 60.0 >58 Glomerula r Filtration Rate ETHAN ([facility]) calcium level 9.4 mg/dL 8.5-10.1 Calcium Level ETHAN ( [facility]) chloride level 102 mEq/L 98-107 Chloride Level ETHAN ([facility]) anion gap 6 mEq/L 8-16 Below low normal Anion Gap ETHAN ( [facility]) carbon dioxide level 27 mEq/L 21-32 Carbon Dioxide Level ETHAN ([facility]) AST/SGOT 10 U/L 7-37 AST/SGOT ETHAN ([facility]) bilirubin,total 0.3 mg/dL 0.2-1.0 Bilirubin,total ATHE ([facility]) ALT/SGPT 26 U/L 12-78 ALT/SGPT ETHAN ([facility]) alkaline phosphatase 92 U/L 45-117 Alkaline Phosph atase ETHAN ([facility]) total protein 6.5 gm/dL 6.4-8.2 Total Protein ETHAN ( [facility]) albumin 3.3 gm/dL 3.2-5.2 Albumin ETHAN ([facility]) albumin/globulin ratio 1.2-2.2 Below low normal Albumin /globulin Ratio ETHAN ([facility]) ID Date Data Source [id number] 02/20/2020 09:03:00 AM EST ETHAN ([facility]) Name Value Range Interpretation Code Description Data Dee Dee rce(s) Supporting Document(s) white blood count 5.7 10 4.0-10.0 White Blood Count ETHAN ([facility]) red blood count 4.47 10 4.00-5.40 Red Blood Count ATHE NA ([facility]) hematocrit 41.3 % 36.0-47.0 Hematocrit ETHAN ([facility]) hemoglobin 13.7 g/dL 12.0-15.5 Hemoglobin ETHAN ([facility]) mean corpuscular volume 92.4 fL 80.0-96.0 Mean Corpusc ular Volume ETHAN ([facility]) red cell distribution width 13.1 % 11.5-14.5 Red Cell Distribution Width ETHAN ([facility]) mean corpuscular HGB conc 33.2 g/dL 32.0-36.5 Mean Corpu scular HGB Conc ETHAN ([facility]) mean corpuscular hemoglobin 30.6 pg 27.0-33.0 Mean Cor puscular Hemoglobin ETHAN ([facility]) nucleated red blood cell % 0.0 % 0-0 Nucleated Red Blood Cell % ETHAN ([facility]) platelet count, automated 280 10 150-450 Platelet C ount, Automated ETHAN ([facility]) ID Date Data Source [id number] 02/20/2020 09:03:00 AM EST ETHAN ([facility]) Name Value Range Interpretation Code Description Data Dee Dee rce(s) Supporting Document(s) Hemoglobin A1c/Hemoglobin.total in Blood 10.5 % Hemoglobin a1C ETHAN ([facility]) estimated average glucose 255 mg/dL 60-110 Above high norm al Estimated Average Glucose ETHAN ([facility]) ID Date Data Source [id number] 02/20/2020 09:03:00 AM EST ETHAN ([facility]) Name Value Range Interpretation Code Description Data Dee Dee rce(s) Supporting Document(s) ferritin 23 NG/mL 8-252 Ferritin ETHAN ([facility]) ID Date Data Source [id number] 02/20/2020 09:03:00 AM EST ETHAN ([facility]) Name Value Range Interpretation Code Description Data Dee Dee rce(s) Supporting Document(s) total 25(oh) vitamin D 32.0 NG/mL 30.0-100.0 Total 25(Oh) Vitamin D ETHAN ([facility]) ID Date Data Source [id number] 02/20/2020 09:03:00 AM EST ETHAN ([facility]) Name Value Range Interpretation Code Description Data Dee Dee rce(s) Supporting Document(s) iron (fe) 80 ug/dL 50-170 Iron (Fe) ETHAN ([facility]) total iron binding capacity 289 ug/dL 250-450 Total Ir on Binding Capacity ETHAN ([facility]) percent saturation 27.7 % 13.2-45.0 Percent Saturatio n ETHAN ([facility]) ID Date Data Source [id number] 02/20/2020 09:03:00 AM EST ETHAN ([facility]) Name Value Range Interpretation Code Description Data Dee Dee rce(s) Supporting Document(s) triglycerides level 298 mg/dL <150 Above high normal Triglycer ides Level ETHAN ([facility]) HDL cholesterol 37 mg/dL >40 Below low normal HDL Cholestero l ETHAN ([facility]) cholesterol level 162 mg/dL <200 Cholesterol Level ETHAN ([facility]) Cholesterol in LDL [Mass/volume] in Serum or Plasma 65 mg/dL <1 00 LDL Cholesterol ETHAN ([facility]) cholesterol risk ratio <5 Cholesterol R isk Ratio ETHAN ([facility]) non-HDL-C 125 mg/dL Non-hdl-c ETHAN ([facility]) ID Date Data Source [id number] 02/20/2020 09:03:00 AM EST ETHAN ([facility]) Name Value Range Interpretation Code Description Data Dee Dee rce(s) Supporting Document(s) glucose, fasting 236 mg/dL 70-100 Above high normal Glucose, Fas ting ETHAN ([facility]) creatinine for GFR 0.65 mg/dL 0.55-1.30 Creatinine for GF R ETHAN ([facility]) blood urea nitrogen 14 mg/dL 7-18 Blood Urea Nitro gen ETHAN ([facility]) potassium serum 4.4 mEq/L 3.5-5.1 Potassium Serum ATHE NA ([facility]) sodium level 135 mEq/L 136-145 Below low normal Sodium Level ATHE NA ([facility]) glomerular filtration rate > 60.0 >58 Glomerula r Filtration Rate ETHAN ([facility]) chloride level 102 mEq/L 98-107 Chloride Level ETHAN ([facility]) carbon dioxide level 27 mEq/L 21-32 Carbon Dioxide Level ETHAN ([facility]) anion gap 6 mEq/L 8-16 Below low normal Anion Gap ETHAN ( [facility]) calcium level 9.4 mg/dL 8.5-10.1 Calcium Level ETHAN ( [facility]) AST/SGOT 10 U/L 7-37 AST/SGOT ETHAN ([facility]) alkaline phosphatase 92 U/L 45-117 Alkaline Phosph atase ETHAN ([facility]) ALT/SGPT 26 U/L 12-78 ALT/SGPT ETHAN ([facility]) bilirubin,total 0.3 mg/dL 0.2-1.0 Bilirubin,total ATHE NA ([facility]) total protein 6.5 gm/dL 6.4-8.2 Total Protein ETHAN ( [facility]) albumin 3.3 gm/dL 3.2-5.2 Albumin ETHAN ([facility]) albumin/globulin ratio 1.2-2.2 Below low normal Albumin /globulin Ratio ETHAN ([facility]) ID Date Data Source [id number] 02/20/2020 09:03:00 AM EST ETHAN ([facility]) Name Value Range Interpretation Code Description Data Dee Dee rce(s) Supporting Document(s) white blood count 5.7 10 4.0-10.0 White Blood Count ETHAN ([facility]) hemoglobin 13.7 g/dL 12.0-15.5 Hemoglobin ETHAN ([facility]) red blood count 4.47 10 4.00-5.40 Red Blood Count ATHE NA ([facility]) mean corpuscular volume 92.4 fL 80.0-96.0 Mean Corpusc ular Volume ETHAN ([facility]) mean corpuscular hemoglobin 30.6 pg 27.0-33.0 Mean Cor puscular Hemoglobin ETHAN ([facility]) hematocrit 41.3 % 36.0-47.0 Hematocrit ETHAN ([facility]) mean corpuscular HGB conc 33.2 g/dL 32.0-36.5 Mean Corpu scular HGB Conc ETHAN ([facility]) red cell distribution width 13.1 % 11.5-14.5 Red Cell Distribution Width ETHAN ([facility]) platelet count, automated 280 10 150-450 Platelet C ount, Automated ETHAN ([facility]) nucleated red blood cell % 0.0 % 0-0 Nucleated Red Blood Cell % ETHAN ([facility]) ID Date Data Source [id number] 02/20/2020 09:03:00 AM EST ETHAN ([facility]) Name Value Range Interpretation Code Description Data Dee Dee rce(s) Supporting Document(s) Hemoglobin A1c/Hemoglobin.total in Blood 10.5 % Hemoglobin a1C ETHAN ([facility]) estimated average glucose 255 mg/dL 60-110 Above high norm al Estimated Average Glucose ETHAN ([facility]) ID Date Data Source [id number] 02/20/2020 09:03:00 AM EST ETHAN ([facility]) Name Value Range Interpretation Code Description Data Dee Dee rce(s) Supporting Document(s) ferritin 23 NG/mL 8-252 Ferritin ETHAN ([facility]) ID Date Data Source [id number] 02/20/2020 09:03:00 AM EST ETHAN ([facility]) Name Value Range Interpretation Code Description Data Dee Dee rce(s) Supporting Document(s) total 25(oh) vitamin D 32.0 NG/mL 30.0-100.0 Total 25(Oh) Vitamin D ETHAN ([facility]) ID Date Data Source [id number] 02/20/2020 09:03:00 AM EST ETHAN ([facility]) Name Value Range Interpretation Code Description Data Dee Dee rce(s) Supporting Document(s) iron (fe) 80 ug/dL 50-170 Iron (Fe) ETHAN ([facility]) percent saturation 27.7 % 13.2-45.0 Percent Saturatio n ETHAN ([facility]) total iron binding capacity 289 ug/dL 250-450 Total Ir on Binding Capacity ETHAN ([facility]) ID Date Data Source [id number] 02/20/2020 09:03:00 AM EST ETHAN ([facility]) Name Value Range Interpretation Code Description Data Dee Dee rce(s) Supporting Document(s) cholesterol level 162 mg/dL <200 Cholesterol Level ETHAN ([facility]) triglycerides level 298 mg/dL <150 Above high normal Triglycer ides Level ETHAN ([facility]) HDL cholesterol 37 mg/dL >40 Below low normal HDL Cholestero l ETHAN ([facility]) non-HDL-C 125 mg/dL Non-hdl-c ETHAN ([facility]) cholesterol risk ratio <5 Cholesterol R isk Ratio ETHAN ([facility]) Cholesterol in LDL [Mass/volume] in Serum or Plasma 65 mg/dL <1 00 LDL Cholesterol ETHAN ([facility]) ID Date Data Source [id number] 02/20/2020 09:03:00 AM [facility] Name Value Range Interpretation Code Description Data Dee Dee rce(s) Supporting Document(s) glucose, fasting 236 mg/dL 70-100 Above high normal Glucose, Fas ting ETHAN ([facility]) glomerular filtration rate > 60.0 >58 Glomerula r Filtration Rate ETHAN ([facility]) blood urea nitrogen 14 mg/dL 7-18 Blood Urea Nitro gen ETHAN ([facility]) creatinine for GFR 0.65 mg/dL 0.55-1.30 Creatinine for GF R ETHAN ([facility]) sodium level 135 mEq/L 136-145 Below low normal Sodium Level ATHE NA ([facility]) chloride level 102 mEq/L 98-107 Chloride Level ERIE ([facility]) potassium serum 4.4 mEq/L 3.5-5.1 Potassium Serum ATHE NA ([facility]) anion gap 6 mEq/L 8-16 Below low normal Anion Gap ETHAN ( [facility]) carbon dioxide level 27 mEq/L 21-32 Carbon Dioxide Level ETHAN ([facility]) AST/SGOT 10 U/L 7-37 AST/SGOT ETHAN ([facility]) calcium level 9.4 mg/dL 8.5-10.1 Calcium Level ETHAN ( [facility]) ALT/SGPT 26 U/L 12-78 ALT/SGPT ETHAN ([facility]) alkaline phosphatase 92 U/L 45-117 Alkaline Phosph atase ETHAN ([facility]) total protein 6.5 gm/dL 6.4-8.2 Total Protein ETHAN ( [facility]) albumin 3.3 gm/dL 3.2-5.2 Albumin ETHAN ([facility]) bilirubin,total 0.3 mg/dL 0.2-1.0 Bilirubin,total ATHE ([facility]) albumin/globulin ratio 1.2-2.2 Below low normal Albumin /globulin Ratio ETHAN ([facility]) ID Date Data Source [id number] 02/20/2020 09:03:00 AM EST ETHAN ([facility]) Name Value Range Interpretation Code Description Data Dee Dee rce(s) Supporting Document(s) white blood count 5.7 10 4.0-10.0 White Blood Count ETHAN ([facility]) hemoglobin 13.7 g/dL 12.0-15.5 Hemoglobin ETHAN ([facility]) red blood count 4.47 10 4.00-5.40 Red Blood Count ATHE NA ([facility]) hematocrit 41.3 % 36.0-47.0 Hematocrit ETHAN ([facility]) mean corpuscular hemoglobin 30.6 pg 27.0-33.0 Mean Cor puscular Hemoglobin ETHAN ([facility]) mean corpuscular volume 92.4 fL 80.0-96.0 Mean Corpusc ular Volume ETHAN ([facility]) red cell distribution width 13.1 % 11.5-14.5 Red Cell Distribution Width ETHAN ([facility]) platelet count, automated 280 10 150-450 Platelet C ount, Automated ETHAN ([facility]) mean corpuscular HGB conc 33.2 g/dL 32.0-36.5 Mean Corpu scular HGB Conc ETHAN ([facility]) nucleated red blood cell % 0.0 % 0-0 Nucleated Red Blood Cell % ETHAN ([facility]) ID Date Data Source [id number] 02/20/2020 09:03:00 AM EST ERIE ([facility]) Name Value Range Interpretation Code Description Data Dee Dee rce(s) Supporting Document(s) Hemoglobin A1c/Hemoglobin.total in Blood 10.5 % Hemoglobin a1C ETHAN ([facility]) estimated average glucose 255 mg/dL 60-110 Above high norm al Estimated Average Glucose ETHAN ([facility]) ID Date Data Source [id number] 02/20/2020 09:03:00 AM EST ERIE ([facility]) Name Value Range Interpretation Code Description Data Dee Dee rce(s) Supporting Document(s) ferritin 23 NG/mL 8-252 Ferritin ETHAN ([facility]) ID Date Data Source [id number] 02/20/2020 09:03:00 AM EST ETHAN ([facility]) Name Value Range Interpretation Code Description Data Dee Dee rce(s) Supporting Document(s) total 25(oh) vitamin D 32.0 NG/mL 30.0-100.0 Total 25(Oh) Vitamin D ETHAN ([facility]) ID Date Data Source [id number] 02/20/2020 09:03:00 AM EST ETHAN ([facility]) Name Value Range Interpretation Code Description Data Dee Dee rce(s) Supporting Document(s) total iron binding capacity 289 ug/dL 250-450 Total Ir on Binding Capacity ETHAN ([facility]) iron (fe) 80 ug/dL 50-170 Iron (Fe) ETHAN ([facility]) percent saturation 27.7 % 13.2-45.0 Percent Saturatio n ETHAN ([facility]) ID Date Data Source [id number] 02/20/2020 09:03:00 AM EST ETHAN ([facility]) Name Value Range Interpretation Code Description Data Dee Dee rce(s) Supporting Document(s) cholesterol level 162 mg/dL <200 Cholesterol Level ETHAN ([facility]) HDL cholesterol 37 mg/dL >40 Below low normal HDL Cholestero l ETHAN ([facility]) triglycerides level 298 mg/dL <150 Above high normal Triglycer ides Level ETHAN ([facility]) cholesterol risk ratio <5 Cholesterol R isk Ratio ETHAN ([facility]) Cholesterol in LDL [Mass/volume] in Serum or Plasma 65 mg/dL <1 00 LDL Cholesterol ETHAN ([facility]) non-HDL-C 125 mg/dL Non-hdl-c ETHAN ([facility]) ID Date Data Source [id number] 02/20/2020 09:03:00 AM EST ETHAN ([facility]) Name Value Range Interpretation Code Description Data Dee Dee rce(s) Supporting Document(s) blood urea nitrogen 14 mg/dL 7-18 Blood Urea Nitro gen ETHAN ([facility]) glucose, fasting 236 mg/dL 70-100 Above high normal Glucose, Fas ting ETHAN ([facility]) glomerular filtration rate > 60.0 >58 Glomerula r Filtration Rate ETHAN ([facility]) creatinine for GFR 0.65 mg/dL 0.55-1.30 Creatinine for GF R ETHAN ([facility]) sodium level 135 mEq/L 136-145 Below low normal Sodium Level ATHE NA ([facility]) carbon dioxide level 27 mEq/L 21-32 Carbon Dioxide Level ETHAN ([facility]) potassium serum 4.4 mEq/L 3.5-5.1 Potassium Serum ATHE ([facility]) chloride level 102 mEq/L 98-107 Chloride Level ERIE ([facility]) ALT/SGPT 26 U/L 12-78 ALT/SGPT ETHAN ([facility]) anion gap 6 mEq/L 8-16 Below low normal Anion Gap ETHAN ( [facility]) calcium level 9.4 mg/dL 8.5-10.1 Calcium Level ETHAN ( [facility]) AST/SGOT 10 U/L 7-37 AST/SGOT ETHAN ([facility]) alkaline phosphatase 92 U/L 45-117 Alkaline Phosph atase ETHAN ([facility]) bilirubin,total 0.3 mg/dL 0.2-1.0 Bilirubin,total ATHE ([facility]) total protein 6.5 gm/dL 6.4-8.2 Total Protein ETHAN ( [facility]) albumin 3.3 gm/dL 3.2-5.2 Albumin ETHAN ([facility]) albumin/globulin ratio 1.2-2.2 Below low normal Albumin /globulin Ratio ETHAN ([facility]) ID Date Data Source [id number] 02/20/2020 09:03:00 AM EST ETHAN ([facility]) Name Value Range Interpretation Code Description Data Dee Dee rce(s) Supporting Document(s) hemoglobin 13.7 g/dL 12.0-15.5 Hemoglobin ETHAN ([facility]) white blood count 5.7 10 4.0-10.0 White Blood Count ETHAN ([facility]) red blood count 4.47 10 4.00-5.40 Red Blood Count ATHE NA ([facility]) hematocrit 41.3 % 36.0-47.0 Hematocrit ETHAN ([facility]) mean corpuscular hemoglobin 30.6 pg 27.0-33.0 Mean Cor puscular Hemoglobin ETHAN ([facility]) mean corpuscular volume 92.4 fL 80.0-96.0 Mean Corpusc ular Volume ETHAN ([facility]) red cell distribution width 13.1 % 11.5-14.5 Red Cell Distribution Width ETHAN ([facility]) mean corpuscular HGB conc 33.2 g/dL 32.0-36.5 Mean Corpu scular HGB Conc ETHAN ([facility]) platelet count, automated 280 10 150-450 Platelet C ount, Automated ETHAN ([facility]) nucleated red blood cell % 0.0 % 0-0 Nucleated Red Blood Cell % ETHAN ([facility]) ID Date Data Source [id number] 02/20/2020 09:03:00 AM EST ERIE ([facility]) Name Value Range Interpretation Code Description Data Dee Dee rce(s) Supporting Document(s) estimated average glucose 255 mg/dL 60-110 Above high norm al Estimated Average Glucose ETHAN ([facility]) Hemoglobin A1c/Hemoglobin.total in Blood 10.5 % Hemoglobin a1C ETHAN ([facility]) ID Date Data Source [id number] 02/20/2020 09:03:00 AM EST ETHAN ([facility]) Name Value Range Interpretation Code Description Data Dee Dee rce(s) Supporting Document(s) ferritin 23 NG/mL 8-252 Ferritin ETHAN ([facility]) ID Date Data Source [id number] 02/20/2020 09:03:00 AM EST ETHAN ([facility]) Name Value Range Interpretation Code Description Data Dee Dee rce(s) Supporting Document(s) total 25(oh) vitamin D 32.0 NG/mL 30.0-100.0 Total 25(Oh) Vitamin D ETHAN ([facility]) ID Date Data Source [id number] 02/20/2020 09:03:00 AM EST ETHAN ([facility]) Name Value Range Interpretation Code Description Data Dee Dee rce(s) Supporting Document(s) iron (fe) 80 ug/dL 50-170 Iron (Fe) ETHAN ([facility]) total iron binding capacity 289 ug/dL 250-450 Total Ir on Binding Capacity ETHAN ([facility]) percent saturation 27.7 % 13.2-45.0 Percent Saturatio n ETHAN ([facility]) ID Date Data Source [id number] 02/20/2020 09:03:00 AM EST ETHAN ([facility]) Name Value Range Interpretation Code Description Data Dee Dee rce(s) Supporting Document(s) cholesterol level 162 mg/dL <200 Cholesterol Level ETHAN ([facility]) triglycerides level 298 mg/dL <150 Above high normal Triglycer ides Level ETHAN ([facility]) HDL cholesterol 37 mg/dL >40 Below low normal HDL Cholestero l ETHAN ([facility]) non-HDL-C 125 mg/dL Non-hdl-c ETHAN ([facility]) Cholesterol in LDL [Mass/volume] in Serum or Plasma 65 mg/dL <1 00 LDL Cholesterol ETHAN ([facility]) cholesterol risk ratio <5 Cholesterol R isk Ratio ETHAN ([facility]) ID Date Data Source [id number] 02/20/2020 09:03:00 AM EST ETHAN ([facility]) Name Value Range Interpretation Code Description Data Dee Dee rce(s) Supporting Document(s) glucose, fasting 236 mg/dL 70-100 Above high normal Glucose, Fas ting ETHAN ([facility]) blood urea nitrogen 14 mg/dL 7-18 Blood Urea Nitro gen ETHAN ([facility]) creatinine for GFR 0.65 mg/dL 0.55-1.30 Creatinine for GF R ETHAN ([facility]) glomerular filtration rate > 60.0 >58 Glomerula r Filtration Rate ETHAN ([facility]) potassium serum 4.4 mEq/L 3.5-5.1 Potassium Serum ATHE NA ([facility]) sodium level 135 mEq/L 136-145 Below low normal Sodium Level ATHE NA ([facility]) anion gap 6 mEq/L 8-16 Below low normal Anion Gap ETHAN ( [facility]) chloride level 102 mEq/L 98-107 Chloride Level ETHAN ([facility]) carbon dioxide level 27 mEq/L 21-32 Carbon Dioxide Level ETHAN ([facility]) ALT/SGPT 26 U/L 12-78 ALT/SGPT [facility]AN ([facility]) AST/SGOT 10 U/L 7-37 AST/SGOT ETHAN ([facility]) calcium level 9.4 mg/dL 8.5-10.1 Calcium Level ETHAN ( [facility]) total protein 6.5 gm/dL 6.4-8.2 Total Protein ETHAN ( [facility]) bilirubin,total 0.3 mg/dL 0.2-1.0 Bilirubin,total ATHE ([facility]) alkaline phosphatase 92 U/L 45-117 Alkaline Phosph atase ETHAN ([facility]) albumin 3.3 gm/dL 3.2-5.2 Albumin ETHAN ([facility]) albumin/globulin ratio 1.2-2.2 Below low normal Albumin /globulin Ratio ETHAN ([facility]) ID Date Data Source [id number] 02/20/2020 09:03:00 AM EST ETHAN ([facility]) Name Value Range Interpretation Code Description Data Dee Dee rce(s) Supporting Document(s) white blood count 5.7 10 4.0-10.0 White Blood Count ETHAN ([facility]) red blood count 4.47 10 4.00-5.40 Red Blood Count ATHE NA ([facility]) hemoglobin 13.7 g/dL 12.0-15.5 Hemoglobin ETHAN ([facility]) mean corpuscular hemoglobin 30.6 pg 27.0-33.0 Mean Cor puscular Hemoglobin ETHAN ([facility]) mean corpuscular volume 92.4 fL 80.0-96.0 Mean Corpusc ular Volume ETHAN ([facility]) hematocrit 41.3 % 36.0-47.0 Hematocrit ETHAN ([facility]) mean corpuscular HGB conc 33.2 g/dL 32.0-36.5 Mean Corpu scular HGB Conc ETHAN ([facility]) red cell distribution width 13.1 % 11.5-14.5 Red Cell Distribution Width ETHAN ([facility]) platelet count, automated 280 10 150-450 Platelet C ount, Automated ETHAN ([facility]) nucleated red blood cell % 0.0 % 0-0 Nucleated Red Blood Cell % ETHAN ([facility]) ID Date Data Source [id number] 02/20/2020 09:03:00 AM EST ETHAN ([facility]) Name Value Range Interpretation Code Description Data Dee Dee rce(s) Supporting Document(s) Hemoglobin A1c/Hemoglobin.total in Blood 10.5 % Hemoglobin a1C ETHAN ([facility]) estimated average glucose 255 mg/dL 60-110 Above high norm al Estimated Average Glucose ETHAN ([facility]) ID Date Data Source [id number] 02/20/2020 09:03:00 AM EST ETHAN ([facility]) Name Value Range Interpretation Code Description Data Dee Dee rce(s) Supporting Document(s) ferritin 23 NG/mL 8-252 Ferritin ETHAN ([facility]) ID Date Data Source [id number] 02/20/2020 09:03:00 AM EST ETHAN ([facility]) Name Value Range Interpretation Code Description Data Dee Dee rce(s) Supporting Document(s) total 25(oh) vitamin D 32.0 NG/mL 30.0-100.0 Total 25(Oh) Vitamin D ETHAN ([facility]) ID Date Data Source [id number] 02/20/2020 09:03:00 AM EST ETHAN ([facility]) Name Value Range Interpretation Code Description Data Dee Dee rce(s) Supporting Document(s) percent saturation 27.7 % 13.2-45.0 Percent Saturatio n ETHAN ([facility]) iron (fe) 80 ug/dL 50-170 Iron (Fe) ETHAN ([facility]) total iron binding capacity 289 ug/dL 250-450 Total Ir on Binding Capacity ETHAN ([facility]) ID Date Data Source [id number] 02/20/2020 09:03:00 AM EST ETHAN ([facility]) Name Value Range Interpretation Code Description Data Dee Dee rce(s) Supporting Document(s) triglycerides level 298 mg/dL <150 Above high normal Triglycer ides Level ETHAN ([facility]) HDL cholesterol 37 mg/dL >40 Below low normal HDL Cholestero l ETHAN ([facility]) cholesterol level 162 mg/dL <200 Cholesterol Level ETHAN ([facility]) Cholesterol in LDL [Mass/volume] in Serum or Plasma 65 mg/dL <1 00 LDL Cholesterol ETHAN ([facility]) non-HDL-C 125 mg/dL Non-hdl-c ETHAN ([facility]) cholesterol risk ratio <5 Cholesterol R isk Ratio ETHAN ([facility]) ID Date Data Source [id number] 02/20/2020 09:03:00 AM EST ETHAN ([facility]) Name Value Range Interpretation Code Description Data Dee Dee rce(s) Supporting Document(s) glucose, fasting 236 mg/dL 70-100 Above high normal Glucose, Fas ting ETHAN ([facility]) blood urea nitrogen 14 mg/dL 7-18 Blood Urea Nitro gen ETHAN ([facility]) sodium level 135 mEq/L 136-145 Below low normal Sodium Level ATHE NA ([facility]) creatinine for GFR 0.65 mg/dL 0.55-1.30 Creatinine for GF R ETHAN ([facility]) glomerular filtration rate > 60.0 >58 Glomerula r Filtration Rate ETHAN ([facility]) potassium serum 4.4 mEq/L 3.5-5.1 Potassium Serum ATHE NA ([facility]) anion gap 6 mEq/L 8-16 Below low normal Anion Gap ETHAN ( [facility]) carbon dioxide level 27 mEq/L 21-32 Carbon Dioxide Level ETHAN ([facility]) chloride level 102 mEq/L 98-107 Chloride Level ETHAN ([facility]) calcium level 9.4 mg/dL 8.5-10.1 Calcium Level ETHAN ( [facility]) alkaline phosphatase 92 U/L 45-117 Alkaline Phosph atase ETHAN ([facility]) ALT/SGPT 26 U/L 12-78 ALT/SGPT ETHAN ([facility]) AST/SGOT 10 U/L 7-37 AST/SGOT ETHAN ([facility]) bilirubin,total 0.3 mg/dL 0.2-1.0 Bilirubin,total ATHE ([facility]) total protein 6.5 gm/dL 6.4-8.2 Total Protein ETHAN ( [facility]) albumin 3.3 gm/dL 3.2-5.2 Albumin ETHAN ([facility]) albumin/globulin ratio 1.2-2.2 Below low normal Albumin /globulin Ratio ETHAN ([facility]) ID Date Data Source [id number] 02/20/2020 09:03:00 AM EST ETHAN ([facility]) Name Value Range Interpretation Code Description Data Dee Dee rce(s) Supporting Document(s) white blood count 5.7 10 4.0-10.0 White Blood Count ETHAN ([facility]) hemoglobin 13.7 g/dL 12.0-15.5 Hemoglobin ETHAN ([facility]) red blood count 4.47 10 4.00-5.40 Red Blood Count ATHE NA ([facility]) hematocrit 41.3 % 36.0-47.0 Hematocrit ETHAN ([facility]) mean corpuscular hemoglobin 30.6 pg 27.0-33.0 Mean Cor puscular Hemoglobin ETHAN ([facility]) mean corpuscular volume 92.4 fL 80.0-96.0 Mean Corpusc ular Volume ETHAN ([facility]) platelet count, automated 280 10 150-450 Platelet C ount, Automated ETHAN ([facility]) red cell distribution width 13.1 % 11.5-14.5 Red Cell Distribution Width ETHAN ([facility]) mean corpuscular HGB conc 33.2 g/dL 32.0-36.5 Mean Corpu scular HGB Conc ETHAN ([facility]) nucleated red blood cell % 0.0 % 0-0 Nucleated Red Blood Cell % ETHAN ([facility]) ID Date Data Source [id number] 02/20/2020 09:03:00 AM EST ETHAN ([facility]) Name Value Range Interpretation Code Description Data Dee Dee rce(s) Supporting Document(s) triglycerides level 298 mg/dL <150 Above high normal Triglycer ides Level ETHAN ([facility]) Cholesterol in LDL [Mass/volume] in Serum or Plasma 65 mg/dL <1 00 LDL Cholesterol ETHAN ([facility]) HDL cholesterol 37 mg/dL >40 Below low normal HDL Cholestero l ETHAN ([facility]) cholesterol level 162 mg/dL <200 Cholesterol Level ETHAN ([facility]) cholesterol risk ratio <5 Cholesterol R isk Ratio ETHAN ([facility]) non-HDL-C 125 mg/dL Non-hdl-c ETHAN ([facility]) ID Date Data Source [id number] 02/20/2020 09:03:00 AM EST ETHAN ([facility]) Name Value Range Interpretation Code Description Data Dee Dee rce(s) Supporting Document(s) blood urea nitrogen 14 mg/dL 7-18 Blood Urea Nitro gen ETHAN ([facility]) glucose, fasting 236 mg/dL 70-100 Above high normal Glucose, Fas ting ETHAN ([facility]) creatinine for GFR 0.65 mg/dL 0.55-1.30 Creatinine for GF R ETHAN ([facility]) glomerular filtration rate > 60.0 >58 Glomerula r Filtration Rate ETHAN ([facility]) potassium serum 4.4 mEq/L 3.5-5.1 Potassium Serum ATHE NA ([facility]) sodium level 135 mEq/L 136-145 Below low normal Sodium Level ATHE NA ([facility]) chloride level 102 mEq/L 98-107 Chloride Level ERIE ([facility]) carbon dioxide level 27 mEq/L 21-32 Carbon Dioxide Level ETHAN ([facility]) anion gap 6 mEq/L 8-16 Below low normal Anion Gap ERIE ( [facility]) calcium level 9.4 mg/dL 8.5-10.1 Calcium Level ERIE ( [facility]) AST/SGOT 10 U/L 7-37 AST/SGOT ETHAN ([facility]) ALT/SGPT 26 U/L 12-78 ALT/SGPT ERIE ([facility]) bilirubin,total 0.3 mg/dL 0.2-1.0 Bilirubin,total ATHE ([facility]) alkaline phosphatase 92 U/L 45-117 Alkaline Phosph atase ETHAN ([facility]) total protein 6.5 gm/dL 6.4-8.2 Total Protein ETHAN ( [facility]) albumin/globulin ratio 1.2-2.2 Below low normal Albumin /globulin Ratio ETHAN ([facility]) albumin 3.3 gm/dL 3.2-5.2 Albumin ETHAN ([facility]) ID Date Data Source [id number] 02/20/2020 09:03:00 AM EST ETHAN ([facility]) Name Value Range Interpretation Code Description Data Dee Dee rce(s) Supporting Document(s) white blood count 5.7 10 4.0-10.0 White Blood Count ETHAN ([facility]) red blood count 4.47 10 4.00-5.40 Red Blood Count ATHE NA ([facility]) hemoglobin 13.7 g/dL 12.0-15.5 Hemoglobin ETHAN ([facility]) mean corpuscular hemoglobin 30.6 pg 27.0-33.0 Mean Cor puscular Hemoglobin ETHAN ([facility]) hematocrit 41.3 % 36.0-47.0 Hematocrit ETHAN ([facility]) mean corpuscular volume 92.4 fL 80.0-96.0 Mean Corpusc ular Volume ETHAN ([facility]) mean corpuscular HGB conc 33.2 g/dL 32.0-36.5 Mean Corpu scular HGB Conc ETHAN ([facility]) platelet count, automated 280 10 150-450 Platelet C ount, Automated ETHAN ([facility]) red cell distribution width 13.1 % 11.5-14.5 Red Cell Distribution Width ETHAN ([facility]) nucleated red blood cell % 0.0 % 0-0 Nucleated Red Blood Cell % ETHAN ([facility]) ID Date Data Source [id number] 02/20/2020 09:03:00 AM EST ERIE ([facility]) Name Value Range Interpretation Code Description Data Dee Dee rce(s) Supporting Document(s) estimated average glucose 255 mg/dL 60-110 Above high norm al Estimated Average Glucose ETHAN ([facility]) Hemoglobin A1c/Hemoglobin.total in Blood 10.5 % Hemoglobin a1C ETHAN ([facility]) ID Date Data Source [id number] 02/20/2020 09:03:00 AM EST ERIE ([facility]) Name Value Range Interpretation Code Description Data Dee Dee rce(s) Supporting Document(s) ferritin 23 NG/mL 8-252 Ferritin ETHAN ([facility]) ID Date Data Source [id number] 02/20/2020 09:03:00 AM EST ETHAN ([facility]) Name Value Range Interpretation Code Description Data Dee Dee rce(s) Supporting Document(s) total 25(oh) vitamin D 32.0 NG/mL 30.0-100.0 Total 25(Oh) Vitamin D ETHAN ([facility]) ID Date Data Source [id number] 02/20/2020 09:03:00 AM EST ETHAN ([facility]) Name Value Range Interpretation Code Description Data Dee Dee rce(s) Supporting Document(s) iron (fe) 80 ug/dL 50-170 Iron (Fe) ETHAN ([facility]) total iron binding capacity 289 ug/dL 250-450 Total Ir on Binding Capacity ETHAN ([facility]) percent saturation 27.7 % 13.2-45.0 Percent Saturatio n ETHAN ([facility]) ID Date Data Source [id number] 02/20/2020 09:03:00 AM EST ETHAN ([facility]) Name Value Range Interpretation Code Description Data Dee Dee rce(s) Supporting Document(s) triglycerides level 298 mg/dL <150 Above high normal Triglycer ides Level ETHAN ([facility]) cholesterol level 162 mg/dL <200 Cholesterol Level ETHAN ([facility]) non-HDL-C 125 mg/dL Non-hdl-c ETHAN ([facility]) HDL cholesterol 37 mg/dL >40 Below low normal HDL Cholestero l ETHAN ([facility]) Cholesterol in LDL [Mass/volume] in Serum or Plasma 65 mg/dL <1 00 LDL Cholesterol ETHAN ([facility]) cholesterol risk ratio <5 Cholesterol R isk Ratio ETHAN ([facility]) ID Date Data Source [id number] 02/20/2020 09:03:00 AM EST ETHAN ([facility]) Name Value Range Interpretation Code Description Data Dee Dee rce(s) Supporting Document(s) creatinine for GFR 0.65 mg/dL 0.55-1.30 Creatinine for GF R ETHAN ([facility]) blood urea nitrogen 14 mg/dL 7-18 Blood Urea Nitro gen ETHAN ([facility]) glucose, fasting 236 mg/dL 70-100 Above high normal Glucose, Fas ting ETHAN ([facility]) chloride level 102 mEq/L 98-107 Chloride Level ETHAN ([facility]) potassium serum 4.4 mEq/L 3.5-5.1 Potassium Serum ATHE NA ([facility]) sodium level 135 mEq/L 136-145 Below low normal Sodium Level ATHE NA ([facility]) glomerular filtration rate > 60.0 >58 Glomerula r Filtration Rate ETHAN ([facility]) calcium level 9.4 mg/dL 8.5-10.1 Calcium Level ETHAN ( [facility]) AST/SGOT 10 U/L 7-37 AST/SGOT ETHAN ([facility]) anion gap 6 mEq/L 8-16 Below low normal Anion Gap ETHAN ( [facility]) carbon dioxide level 27 mEq/L 21-32 Carbon Dioxide Level ETHAN ([facility]) total protein 6.5 gm/dL 6.4-8.2 Total Protein ETHAN ( [facility]) bilirubin,total 0.3 mg/dL 0.2-1.0 Bilirubin,total ATHE ([facility]) alkaline phosphatase 92 U/L 45-117 Alkaline Phosph atase ETHAN ([facility]) ALT/SGPT 26 U/L 12-78 ALT/SGPT ETHAN ([facility]) albumin 3.3 gm/dL 3.2-5.2 Albumin ETHAN ([facility]) albumin/globulin ratio 1.2-2.2 Below low normal Albumin /globulin Ratio ETHAN ([facility]) ID Date Data Source [id number] 02/20/2020 09:03:00 AM EST ETHAN ([facility]) Name Value Range Interpretation Code Description Data Dee Dee rce(s) Supporting Document(s) white blood count 5.7 10 4.0-10.0 White Blood Count ETHAN ([facility]) red blood count 4.47 10 4.00-5.40 Red Blood Count ATHE NA ([facility]) hematocrit 41.3 % 36.0-47.0 Hematocrit ETHAN ([facility]) mean corpuscular volume 92.4 fL 80.0-96.0 Mean Corpusc ular Volume ETHAN ([facility]) hemoglobin 13.7 g/dL 12.0-15.5 Hemoglobin ETHAN ([facility]) mean corpuscular hemoglobin 30.6 pg 27.0-33.0 Mean Cor puscular Hemoglobin ETHAN ([facility]) mean corpuscular HGB conc 33.2 g/dL 32.0-36.5 Mean Corpu scular HGB Conc ETHAN ([facility]) platelet count, automated 280 10 150-450 Platelet C ount, Automated ETHAN ([facility]) nucleated red blood cell % 0.0 % 0-0 Nucleated Red Blood Cell % ETHAN ([facility]) red cell distribution width 13.1 % 11.5-14.5 Red Cell Distribution Width ETHAN ([facility]) ID Date Data Source [id number] 02/20/2020 09:03:00 AM EST ETHAN ([facility]) Name Value Range Interpretation Code Description Data Dee Dee rce(s) Supporting Document(s) estimated average glucose 255 mg/dL 60-110 Above high norm al Estimated Average Glucose ETHAN ([facility]) Hemoglobin A1c/Hemoglobin.total in Blood 10.5 % Hemoglobin a1C ETHAN ([facility]) ID Date Data Source [id number] 02/20/2020 09:03:00 AM EST ETHAN ([facility]) Name Value Range Interpretation Code Description Data Dee Dee rce(s) Supporting Document(s) ferritin 23 NG/mL 8-252 Ferritin ETHAN ([facility]) ID Date Data Source [id number] 02/20/2020 09:03:00 AM EST ETHAN ([facility]) Name Value Range Interpretation Code Description Data Dee Dee rce(s) Supporting Document(s) total 25(oh) vitamin D 32.0 NG/mL 30.0-100.0 Total 25(Oh) Vitamin D ETHAN ([facility]) ID Date Data Source [id number] 02/20/2020 09:03:00 AM EST ETHAN ([facility]) Name Value Range Interpretation Code Description Data Dee Dee rce(s) Supporting Document(s) percent saturation 27.7 % 13.2-45.0 Percent Saturatio n ETHAN ([facility]) iron (fe) 80 ug/dL 50-170 Iron (Fe) ETHAN ([facility]) total iron binding capacity 289 ug/dL 250-450 Total Ir on Binding Capacity ETHAN ([facility]) ID Date Data Source [id number] 02/20/2020 09:03:00 AM EST ETHAN ([facility]) Name Value Range Interpretation Code Description Data Dee Dee rce(s) Supporting Document(s) cholesterol level 162 mg/dL <200 Cholesterol Level ETHAN ([facility]) triglycerides level 298 mg/dL <150 Above high normal Triglycer ides Level ETHAN ([facility]) cholesterol risk ratio <5 Cholesterol R isk Ratio ETHAN ([facility]) non-HDL-C 125 mg/dL Non-hdl-c ETHAN ([facility]) Cholesterol in LDL [Mass/volume] in Serum or Plasma 65 mg/dL <1 00 LDL Cholesterol ETHAN ([facility]) HDL cholesterol 37 mg/dL >40 Below low normal HDL Cholestero l ETHAN ([facility]) ID Date Data Source [id number] 02/20/2020 09:03:00 AM EST ETHAN ([facility]) Name Value Range Interpretation Code Description Data Dee Dee rce(s) Supporting Document(s) glucose, fasting 236 mg/dL 70-100 Above high normal Glucose, Fas ting ETHAN ([facility]) glomerular filtration rate > 60.0 >58 Glomerula r Filtration Rate ETHAN ([facility]) creatinine for GFR 0.65 mg/dL 0.55-1.30 Creatinine for GF R ETHAN ([facility]) blood urea nitrogen 14 mg/dL 7-18 Blood Urea Nitro gen ETHAN ([facility]) sodium level 135 mEq/L 136-145 Below low normal Sodium Level ATHE NA ([facility]) chloride level 102 mEq/L 98-107 Chloride Level ETHAN ([facility]) potassium serum 4.4 mEq/L 3.5-5.1 Potassium Serum ATHE NA ([facility]) carbon dioxide level 27 mEq/L 21-32 Carbon Dioxide Level ETHAN ([facility]) anion gap 6 mEq/L 8-16 Below low normal Anion Gap ETHAN ( [facility]) calcium level 9.4 mg/dL 8.5-10.1 Calcium Level ETHAN ( [facility]) AST/SGOT 10 U/L 7-37 AST/SGOT ETHAN ([facility]) bilirubin,total 0.3 mg/dL 0.2-1.0 Bilirubin,total ATHE ([facility]) alkaline phosphatase 92 U/L 45-117 Alkaline Phosph atase ETHAN ([facility]) ALT/SGPT 26 U/L 12-78 ALT/SGPT ETHAN ([facility]) total protein 6.5 gm/dL 6.4-8.2 Total Protein ETHAN ( [facility]) albumin 3.3 gm/dL 3.2-5.2 Albumin ETHAN ([facility]) albumin/globulin ratio 1.2-2.2 Below low normal Albumin /globulin Ratio ETHAN ([facility]) ID Date Data Source [id number] 02/20/2020 09:03:00 AM EST ETHAN ([facility]) Name Value Range Interpretation Code Description Data Dee Dee rce(s) Supporting Document(s) red blood count 4.47 10 4.00-5.40 Red Blood Count ATHE ([facility]) white blood count 5.7 10 4.0-10.0 White Blood Count ETHAN ([facility]) mean corpuscular volume 92.4 fL 80.0-96.0 Mean Corpusc ular Volume ETHAN ([facility]) hematocrit 41.3 % 36.0-47.0 Hematocrit ETHAN ([facility]) hemoglobin 13.7 g/dL 12.0-15.5 Hemoglobin ETHAN ([facility]) mean corpuscular HGB conc 33.2 g/dL 32.0-36.5 Mean Corpu scular HGB Conc ETHAN ([facility]) mean corpuscular hemoglobin 30.6 pg 27.0-33.0 Mean Cor puscular Hemoglobin ETHAN ([facility]) red cell distribution width 13.1 % 11.5-14.5 Red Cell Distribution Width ETHAN ([facility]) platelet count, automated 280 10 150-450 Platelet C ount, Automated ETHAN ([facility]) nucleated red blood cell % 0.0 % 0-0 Nucleated Red Blood Cell % ETHAN ([facility]) ID Date Data Source [id number] 02/20/2020 09:03:00 AM EST ERIE ([facility]) Name Value Range Interpretation Code Description Data Dee Dee rce(s) Supporting Document(s) Hemoglobin A1c/Hemoglobin.total in Blood 10.5 % Hemoglobin a1C ETHAN ([facility]) estimated average glucose 255 mg/dL 60-110 Above high norm al Estimated Average Glucose ERIE ([facility]) ID Date Data Source [id number] 02/20/2020 09:03:00 AM EST ETHAN ([facility]) Name Value Range Interpretation Code Description Data Dee Dee rce(s) Supporting Document(s) ferritin 23 NG/mL 8-252 Ferritin ETHAN ([facility]) ID Date Data Source [id number] 02/20/2020 09:03:00 AM EST ETHAN ([facility]) Name Value Range Interpretation Code Description Data Dee Dee rce(s) Supporting Document(s) total 25(oh) vitamin D 32.0 NG/mL 30.0-100.0 Total 25(Oh) Vitamin D ETHAN ([facility]) ID Date Data Source [id number] 02/20/2020 09:03:00 AM EST [place] ([facility]) Name Value Range Interpretation Code Description Data Dee Dee rce(s) Supporting Document(s) total iron binding capacity 289 ug/dL 250-450 Total Ir on Binding Capacity ETHAN ([facility]) percent saturation 27.7 % 13.2-45.0 Percent Saturatio n ETHAN ([facility]) iron (fe) 80 ug/dL 50-170 Iron (Fe) ETHAN ([facility]) ID Date Data Source [id number] 02/20/2020 09:03:00 AM EST ETHAN ([facility]) Name Value Range Interpretation Code Description Data Dee Dee rce(s) Supporting Document(s) triglycerides level 298 mg/dL <150 Above high normal Triglycer ides Level ETHAN ([facility]) HDL cholesterol 37 mg/dL >40 Below low normal HDL Cholestero l ETHAN ([facility]) cholesterol level 162 mg/dL <200 Cholesterol Level ETHAN ([facility]) cholesterol risk ratio <5 Cholesterol R isk Ratio ETHAN ([facility]) non-HDL-C 125 mg/dL Non-hdl-c ETHAN ([facility]) Cholesterol in LDL [Mass/volume] in Serum or Plasma 65 mg/dL <1 00 LDL Cholesterol ETHAN ([facility]) ID Date Data Source [id number] 02/20/2020 09:03:00 [facility] Name Value Range Interpretation Code Description Data Dee Dee rce(s) Supporting Document(s) glucose, fasting 236 mg/dL 70-100 Above high normal Glucose, Fas ting ETHAN ([facility]) glomerular filtration rate > 60.0 >58 Glomerula r Filtration Rate ETHAN ([facility]) blood urea nitrogen 14 mg/dL 7-18 Blood Urea Nitro gen ETHAN ([facility]) sodium level 135 mEq/L 136-145 Below low normal Sodium Level ATHE NA ([facility]) creatinine for GFR 0.65 mg/dL 0.55-1.30 Creatinine for GF R ETHAN ([facility]) potassium serum 4.4 mEq/L 3.5-5.1 Potassium Serum ATHE NA ([facility]) carbon dioxide level 27 mEq/L 21-32 Carbon Dioxide Level ETHAN ([facility]) chloride level 102 mEq/L 98-107 Chloride Level ETHAN ([facility]) anion gap 6 mEq/L 8-16 Below low normal Anion Gap ETHAN ( [facility]) alkaline phosphatase 92 U/L 45-117 Alkaline Phosph atase ETHAN ([facility]) ALT/SGPT 26 U/L 12-78 ALT/SGPT ETHAN ([facility]) AST/SGOT 10 U/L 7-37 AST/SGOT ETHAN ([facility]) calcium level 9.4 mg/dL 8.5-10.1 Calcium Level ETHAN ( [facility]) total protein 6.5 gm/dL 6.4-8.2 Total Protein ETHAN ( [facility]) albumin 3.3 gm/dL 3.2-5.2 Albumin ETHAN ([facility]) albumin/globulin ratio 1.2-2.2 Below low normal Albumin /globulin Ratio ETHAN ([facility]) bilirubin,total 0.3 mg/dL 0.2-1.0 Bilirubin,total ATHE NA ([facility]) ID Date Data Source [id number] 02/20/2020 09:03:00 AM EST ETHAN ([facility]) Name Value Range Interpretation Code Description Data Dee Dee rce(s) Supporting Document(s) white blood count 5.7 10 4.0-10.0 White Blood Count ETHAN ([facility]) red blood count 4.47 10 4.00-5.40 Red Blood Count ATHE NA ([facility]) hematocrit 41.3 % 36.0-47.0 Hematocrit ETHAN ([facility]) hemoglobin 13.7 g/dL 12.0-15.5 Hemoglobin ETHAN ([facility]) mean corpuscular volume 92.4 fL 80.0-96.0 Mean Corpusc ular Volume ETHAN ([facility]) mean corpuscular hemoglobin 30.6 pg 27.0-33.0 Mean Cor puscular Hemoglobin ETHAN ([facility]) red cell distribution width 13.1 % 11.5-14.5 Red Cell Distribution Width ETHAN ([facility]) mean corpuscular HGB conc 33.2 g/dL 32.0-36.5 Mean Corpu scular HGB Conc ETHAN ([facility]) platelet count, automated 280 10 150-450 Platelet C ount, Automated ETHAN ([facility]) nucleated red blood cell % 0.0 % 0-0 Nucleated Red Blood Cell % ERIE ([facility]) ID Date Data Source [id number] 02/20/2020 09:03:00 AM EST ERIE ([facility]) Name Value Range Interpretation Code Description Data Dee Dee rce(s) Supporting Document(s) Hemoglobin A1c/Hemoglobin.total in Blood 10.5 % Hemoglobin a1C ERIE ([facility]) estimated average glucose 255 mg/dL 60-110 Above high norm al Estimated Average Glucose ERIE ([facility]) ID Date Data Source [id number] 02/20/2020 09:03:00 AM EST ERIE ([facility]) Name Value Range Interpretation Code Description Data Dee Dee rce(s) Supporting Document(s) ferritin 23 NG/mL 8-252 Ferritin ETHAN ([facility]) ID Date Data Source [id number] 02/20/2020 09:03:00 AM EST ERIE ([facility]) Name Value Range Interpretation Code Description Data Dee Dee rce(s) Supporting Document(s) total 25(oh) vitamin D 32.0 NG/mL 30.0-100.0 Total 25(Oh) Vitamin D ETHAN ([facility]) ID Date Data Source [id number] 02/20/2020 09:03:00 AM EST ETHAN ([facility]) Name Value Range Interpretation Code Description Data Dee Dee rce(s) Supporting Document(s) iron (fe) 80 ug/dL 50-170 Iron (Fe) ETHAN ([facility]) percent saturation 27.7 % 13.2-45.0 Percent Saturatio n ETHAN ([facility]) total iron binding capacity 289 ug/dL 250-450 Total Ir on Binding Capacity ETHAN ([facility]) ID Date Data Source [id number] 02/20/2020 09:03:00 AM EST ETHAN ([facility]) Name Value Range Interpretation Code Description Data Dee Dee rce(s) Supporting Document(s) triglycerides level 298 mg/dL <150 Above high normal Triglycer ides Level ETHAN ([facility]) cholesterol level 162 mg/dL <200 Cholesterol Level ETHAN ([facility]) HDL cholesterol 37 mg/dL >40 Below low normal HDL Cholestero l ETHAN ([facility]) Cholesterol in LDL [Mass/volume] in Serum or Plasma 65 mg/dL <1 00 LDL Cholesterol ETHAN ([facility]) non-HDL-C 125 mg/dL Non-hdl-c ETHAN ([facility]) cholesterol risk ratio <5 Cholesterol R isk Ratio ETHAN ([facility]) ID Date Data Source [id number] 02/20/2020 09:03:00 AM EST ETHAN ([facility]) Name Value Range Interpretation Code Description Data Dee Dee rce(s) Supporting Document(s) glucose, fasting 236 mg/dL 70-100 Above high normal Glucose, Fas ting ETHAN ([facility]) glomerular filtration rate > 60.0 >58 Glomerula r Filtration Rate ETHAN ([facility]) blood urea nitrogen 14 mg/dL 7-18 Blood Urea Nitro gen ETHAN ([facility]) creatinine for GFR 0.65 mg/dL 0.55-1.30 Creatinine for GF R ETHAN ([facility]) sodium level 135 mEq/L 136-145 Below low normal Sodium Level ATHE NA ([facility]) carbon dioxide level 27 mEq/L 21-32 Carbon Dioxide Level ETHAN ([facility]) potassium serum 4.4 mEq/L 3.5-5.1 Potassium Serum ATHE NA ([facility]) chloride level 102 mEq/L 98-107 Chloride Level ETHAN ([facility]) calcium level 9.4 mg/dL 8.5-10.1 Calcium Level ETHAN ( [facility]) AST/SGOT 10 U/L 7-37 AST/SGOT ETHAN ([facility]) anion gap 6 mEq/L 8-16 Below low normal Anion Gap ETHAN ( [facility]) ALT/SGPT 26 U/L 12-78 ALT/SGPT ETHAN ([facility]) bilirubin,total 0.3 mg/dL 0.2-1.0 Bilirubin,total ATHE ([facility]) alkaline phosphatase 92 U/L 45-117 Alkaline Phosph atase ETHAN ([facility]) total protein 6.5 gm/dL 6.4-8.2 Total Protein ETHAN ( [facility]) albumin/globulin ratio 1.2-2.2 Below low normal Albumin /globulin Ratio ETHAN ([facility]) albumin 3.3 gm/dL 3.2-5.2 Albumin ETHAN ([facility]) ID Date Data Source [id number] 02/20/2020 09:03:00 AM EST ETHAN ([facility]) Name Value Range Interpretation Code Description Data Dee Dee rce(s) Supporting Document(s) white blood count 5.7 10 4.0-10.0 White Blood Count ETHAN ([facility]) red blood count 4.47 10 4.00-5.40 Red Blood Count ATHE ([facility]) hemoglobin 13.7 g/dL 12.0-15.5 Hemoglobin ETHAN ([facility]) hematocrit 41.3 % 36.0-47.0 Hematocrit ETHAN ([facility]) mean corpuscular hemoglobin 30.6 pg 27.0-33.0 Mean Cor puscular Hemoglobin ETHAN ([facility]) mean corpuscular volume 92.4 fL 80.0-96.0 Mean Corpusc ular Volume ETHAN ([facility]) mean corpuscular HGB conc 33.2 g/dL 32.0-36.5 Mean Corpu scular HGB Conc ETHAN ([facility]) red cell distribution width 13.1 % 11.5-14.5 Red Cell Distribution Width ETHAN ([facility]) platelet count, automated 280 10 150-450 Platelet C ount, Automated ETHAN ([facility]) nucleated red blood cell % 0.0 % 0-0 Nucleated Red Blood Cell % ERIE ([facility]) ID Date Data Source [id number] 02/20/2020 09:03:00 AM EST ERIE ([facility]) Name Value Range Interpretation Code Description Data Dee Dee rce(s) Supporting Document(s) Hemoglobin A1c/Hemoglobin.total in Blood 10.5 % Hemoglobin a1C ERIE ([facility]) estimated average glucose 255 mg/dL 60-110 Above high norm al Estimated Average Glucose [facility]) ID Date Data Source [id number] 02/20/2020 09:03:00 AM EST ERIE ([facility]) Name Value Range Interpretation Code Description Data Dee Dee rce(s) Supporting Document(s) [facility]ritin 23 NG[facility] 8-[facility] Source [id number] 02/20/2020 09:03:00 AM EST ETHAN ([facility]) Name Value Range Interpretation Code Description Data Dee Dee rce(s) Supporting Document(s) total 25(oh) vitamin D 32.0 NG/mL 30.0-100.0 Total 25(Oh) Vitamin D ERIE ([facility]) ID Date Data Source [id number] 02/20/2020 09:03:00 AM EST ETHAN ([facility]) Name Value Range Interpretation Code Description Data Dee Dee rce(s) Supporting Document(s) iron (fe) 80 ug/dL 50-170 Iron (Fe) ETHAN ([facility]) total iron binding capacity 289 ug/dL 250-450 Total Ir on Binding Capacity ETHAN ([facility]) percent saturation 27.7 % 13.2-45.0 Percent Saturatio n ETHAN ([facility]) ID Date Data Source [id number] 02/20/2020 09:03:00 AM EST ETHAN ([facility]) Name Value Range Interpretation Code Description Data Dee Dee rce(s) Supporting Document(s) cholesterol level 162 mg/dL <200 Cholesterol Level ETHAN ([facility]) triglycerides level 298 mg/dL <150 Above high normal Triglycer ides Level ETHAN ([facility]) Cholesterol in LDL [Mass/volume] in Serum or Plasma 65 mg/dL <1 00 LDL Cholesterol ETHAN ([facility]) HDL cholesterol 37 mg/dL >40 Below low normal HDL Cholestero l ETHAN ([facility]) cholesterol risk ratio <5 Cholesterol R isk Ratio ETHAN ([facility]) non-HDL-C 125 mg/dL Non-hdl-c ETHAN ([facility]) ID Date Data Source [id number] 02/20/2020 09:03:00 AM EST ETHAN ([facility]) Name Value Range Interpretation Code Description Data Dee Dee rce(s) Supporting Document(s) glucose, fasting 236 mg/dL 70-100 Above high normal Glucose, Fas ting ETHAN ([facility]) blood urea nitrogen 14 mg/dL 7-18 Blood Urea Nitro gen ETHAN ([facility]) glomerular filtration rate > 60.0 >58 Glomerula r Filtration Rate ETHAN ([facility]) sodium level 135 mEq/L 136-145 Below low normal Sodium Level ATHE NA ([facility]) creatinine for GFR 0.65 mg/dL 0.55-1.30 Creatinine for GF R ETHAN ([facility]) chloride level 102 mEq/L 98-107 Chloride Level ETHAN ([facility]) potassium serum 4.4 mEq/L 3.5-5.1 Potassium Serum ATHE ([facility]) anion gap 6 mEq/L 8-16 Below low normal Anion Gap ETHAN ( [facility]) carbon dioxide level 27 mEq/L 21-32 Carbon Dioxide Level ETHAN ([facility]) ALT/SGPT 26 U/L 12-78 ALT/SGPT ETHAN ([facility]) alkaline phosphatase 92 U/L 45-117 Alkaline Phosph atase ETHAN ([facility]) calcium level 9.4 mg/dL 8.5-10.1 Calcium Level ETHAN ( [facility]) AST/SGOT 10 U/L 7-37 AST/SGOT ETHAN ([facility]) bilirubin,total 0.3 mg/dL 0.2-1.0 Bilirubin,total ATHE ([facility]) total protein 6.5 gm/dL 6.4-8.2 Total Protein ETHAN ( [facility]) albumin/globulin ratio 1.2-2.2 Below low normal Albumin /globulin Ratio ETHAN ([facility]) albumin 3.3 gm/dL 3.2-5.2 Albumin ETHAN ([facility]) ID Date Data Source [id number] 02/20/2020 09:03:00 AM EST ETHAN ([facility]) Name Value Range Interpretation Code Description Data Dee Dee rce(s) Supporting Document(s) red blood count 4.47 10 4.00-5.40 Red Blood Count ATHE ([facility]) white blood count 5.7 10 4.0-10.0 White Blood Count ETHAN ([facility]) hematocrit 41.3 % 36.0-47.0 Hematocrit ETHAN ([facility]) hemoglobin 13.7 g/dL 12.0-15.5 Hemoglobin ETHAN ([facility]) mean corpuscular volume 92.4 fL 80.0-96.0 Mean Corpusc ular Volume ETHAN ([facility]) mean corpuscular hemoglobin 30.6 pg 27.0-33.0 Mean Cor puscular Hemoglobin ETHAN ([facility]) red cell distribution width 13.1 % 11.5-14.5 Red Cell Distribution Width ETHAN ([facility]) platelet count, automated 280 10 150-450 Platelet C ount, Automated ETHAN ([facility]) mean corpuscular HGB conc 33.2 g/dL 32.0-36.5 Mean Corpu scular HGB Conc ETHAN ([facility]) nucleated red blood cell % 0.0 % 0-0 Nucleated Red Blood Cell % ERIE ([facility]) ID Date Data Source [id number] 02/20/2020 09:03:00 AM EST ERIE ([facility]) Name Value Range Interpretation Code Description Data Dee Dee rce(s) Supporting Document(s) estimated average glucose 255 mg/dL 60-110 Above high norm al Estimated Average Glucose ERIE ([facility]) Hemoglobin A1c/Hemoglobin.total in Blood 10.5 % Hemoglobin a1C ERIE ([facility]) ID Date Data Source [id number] 02/20/2020 09:03:00 AM EST ERIE ([facility]) Name Value Range Interpretation Code Description Data Dee Dee rce(s) Supporting Document(s) ferritin 23 NG/mL 8-252 Ferritin ETHAN ([facility]) ID Date Data Source [id number] 02/20/2020 09:03:00 AM EST ETHAN ([facility]) Name Value Range Interpretation Code Description Data Dee Dee rce(s) Supporting Document(s) total 25(oh) vitamin D 32.0 NG/mL 30.0-100.0 Total 25(Oh) Vitamin D ERIE ([facility]) ID Date Data Source [id number] 02/20/2020 09:03:00 AM EST ETHAN ([facility]) Name Value Range Interpretation Code Description Data Dee Dee rce(s) Supporting Document(s) iron (fe) 80 ug/dL 50-170 Iron (Fe) ETHAN ([facility]) percent saturation 27.7 % 13.2-45.0 Percent Saturatio n ETHAN ([facility]) total iron binding capacity 289 ug/dL 250-450 Total Ir on Binding Capacity ETHAN ([facility]) ID Date Data Source [id number] 02/20/2020 09:03:00 AM EST ETHAN ([facility]) Name Value Range Interpretation Code Description Data Dee Dee rce(s) Supporting Document(s) triglycerides level 298 mg/dL <150 Above high normal Triglycer ides Level ETHAN ([facility]) Cholesterol in LDL [Mass/volume] in Serum or Plasma 65 mg/dL <1 00 LDL Cholesterol ETHAN ([facility]) HDL cholesterol 37 mg/dL >40 Below low normal HDL Cholestero l ETHAN ([facility]) cholesterol level 162 mg/dL <200 Cholesterol Level ETHAN ([facility]) cholesterol risk ratio <5 Cholesterol R isk Ratio ETHAN ([facility]) non-HDL-C 125 mg/dL Non-hdl-c ETHAN ([facility]) ID Date Data Source [id number] 02/20/2020 09:03:00 AM EST ETHAN ([facility]) Name Value Range Interpretation Code Description Data Dee Dee rce(s) Supporting Document(s) glucose, fasting 236 mg/dL 70-100 Above high normal Glucose, Fas ting ETHAN ([facility]) blood urea nitrogen 14 mg/dL 7-18 Blood Urea Nitro gen ETHAN ([facility]) glomerular filtration rate > 60.0 >58 Glomerula r Filtration Rate ETHAN ([facility]) creatinine for GFR 0.65 mg/dL 0.55-1.30 Creatinine for GF R ETHAN ([facility]) carbon dioxide level 27 mEq/L 21-32 Carbon Dioxide Level ETHAN ([facility]) chloride level 102 mEq/L 98-107 Chloride Level ETHAN ([facility]) sodium level 135 mEq/L 136-145 Below low normal Sodium Level ATHE NA ([facility]) potassium serum 4.4 mEq/L 3.5-5.1 Potassium Serum ATHE NA ([facility]) AST/SGOT 10 U/L 7-37 AST/SGOT ETHAN ([facility]) anion gap 6 mEq/L 8-16 Below low normal Anion Gap ETHAN ( [facility]) calcium level 9.4 mg/dL 8.5-10.1 Calcium Level ETHAN ( [facility]) bilirubin,total 0.3 mg/dL 0.2-1.0 Bilirubin,total ATHE ([facility]) alkaline phosphatase 92 U/L 45-117 Alkaline Phosph atase ETHAN ([facility]) ALT/SGPT 26 U/L 12-78 ALT/SGPT ETHAN ([facility]) albumin 3.3 gm/dL 3.2-5.2 Albumin ETHAN ([facility]) total protein 6.5 gm/dL 6.4-8.2 Total Protein ETHAN ( [facility]) albumin/globulin ratio 1.2-2.2 Below low normal Albumin /globulin Ratio ETHAN ([facility]) ID Date Data Source [id number] 02/20/2020 09:03:00 AM EST ETHAN ([facility]) Name Value Range Interpretation Code Description Data Dee Dee rce(s) Supporting Document(s) white blood count 5.7 10 4.0-10.0 White Blood Count ETHAN ([facility]) red blood count 4.47 10 4.00-5.40 Red Blood Count ATHE ([facility]) hemoglobin 13.7 g/dL 12.0-15.5 Hemoglobin ETHAN ([facility]) mean corpuscular volume 92.4 fL 80.0-96.0 Mean Corpusc ular Volume ETHAN ([facility]) hematocrit 41.3 % 36.0-47.0 Hematocrit ETHAN ([facility]) mean corpuscular HGB conc 33.2 g/dL 32.0-36.5 Mean Corpu scular HGB Conc ETHAN ([facility]) mean corpuscular hemoglobin 30.6 pg 27.0-33.0 Mean Cor puscular Hemoglobin ETHAN ([facility]) red cell distribution width 13.1 % 11.5-14.5 Red Cell Distribution Width ETHAN ([facility]) platelet count, automated 280 10 150-450 Platelet C ount, Automated ETHAN ([facility]) nucleated red blood cell % 0.0 % 0-0 Nucleated Red Blood Cell % ERIE ([facility]) ID Date Data Source [id number] 02/20/2020 09:03:00 AM EST ERIE ([facility]) Name Value Range Interpretation Code Description Data Dee Dee rce(s) Supporting Document(s) estimated average glucose 255 mg/dL 60-110 Above high norm al Estimated Average Glucose ERIE ([facility]) Hemoglobin A1c/Hemoglobin.total in Blood 10.5 % Hemoglobin a1C ERIE ([facility]) ID Date Data Source [id number] 02/20/2020 09:03:00 AM EST ERIE ([facility]) Name Value Range Interpretation Code Description Data Dee Dee rce(s) Supporting Document(s) ferritin 23 NG/mL 8-252 Ferritin ETHAN ([facility]) ID Date Data Source [id number] 02/20/2020 09:03:00 AM EST ERIE ([facility]) Name Value Range Interpretation Code Description Data Dee Dee rce(s) Supporting Document(s) total 25(oh) vitamin D 32.0 NG/mL 30.0-100.0 Total 25(Oh) Vitamin D ERIE ([facility]) ID Date Data Source [id number] 02/20/2020 09:03:00 AM EST ETHAN ([facility]) Name Value Range Interpretation Code Description Data Dee Dee rce(s) Supporting Document(s) iron (fe) 80 ug/dL 50-170 Iron (Fe) ETHAN ([facility]) total iron binding capacity 289 ug/dL 250-450 Total Ir on Binding Capacity ETHAN ([facility]) percent saturation 27.7 % 13.2-45.0 Percent Saturatio n ETHAN ([facility]) ID Date Data Source [id number] 02/20/2020 09:03:00 AM EST ETHAN ([facility]) Name Value Range Interpretation Code Description Data Dee Dee rce(s) Supporting Document(s) triglycerides level 298 mg/dL <150 Above high normal Triglycer ides Level ETHAN ([facility]) cholesterol level 162 mg/dL <200 Cholesterol Level ETHAN ([facility]) HDL cholesterol 37 mg/dL >40 Below low normal HDL Cholestero l ETHAN ([facility]) Cholesterol in LDL [Mass/volume] in Serum or Plasma 65 mg/dL <1 00 LDL Cholesterol ETHAN ([facility]) non-HDL-C 125 mg/dL Non-hdl-c ETHAN ([facility]) cholesterol risk ratio <5 Cholesterol R isk Ratio ETHAN ([facility]) ID Date Data Source [id number] 02/20/2020 09:03:00 AM EST ETHAN ([facility]) Name Value Range Interpretation Code Description Data Dee Dee rce(s) Supporting Document(s) blood urea nitrogen 14 mg/dL 7-18 Blood Urea Nitro gen ETHAN ([facility]) glucose, fasting 236 mg/dL 70-100 Above high normal Glucose, Fas ting ETHAN ([facility]) creatinine for GFR 0.65 mg/dL 0.55-1.30 Creatinine for GF R ETHAN ([facility]) potassium serum 4.4 mEq/L 3.5-5.1 Potassium Serum ATHE NA ([facility]) glomerular filtration rate > 60.0 >58 Glomerula r Filtration Rate ETHAN ([facility]) sodium level 135 mEq/L 136-145 Below low normal Sodium Level ATHE NA ([facility]) carbon dioxide level 27 mEq/L 21-32 Carbon Dioxide Level ETHAN ([facility]) chloride level 102 mEq/L 98-107 Chloride Level ETHAN ([facility]) anion gap 6 mEq/L 8-16 Below low normal Anion Gap ETHAN ( [facility]) calcium level 9.4 mg/dL 8.5-10.1 Calcium Level ETHAN ( [facility]) AST/SGOT 10 U/L 7-37 AST/SGOT [facility] ([facility]) alkaline phosphatase 92 U/L 45-117 Alkaline Phosph atase ETHAN ([facility]) ALT/SGPT 26 U/L 12-78 ALT/SGPT [facility]AN ([facility]) bilirubin,total 0.3 mg/dL 0.2-1.0 Bilirubin,total ATHE NA ([facility]) albumin 3.3 gm/dL 3.2-5.2 Albumin ETHAN ([facility]) total protein 6.5 gm/dL 6.4-8.2 Total Protein ETHAN ( [facility]) albumin/globulin ratio 1.2-2.2 Below low normal Albumin /globulin Ratio ETHAN ([facility]) ID Date Data Source [id number] 02/20/2020 09:03:00 AM EST ETHAN ([facility]) Name Value Range Interpretation Code Description Data Dee Dee rce(s) Supporting Document(s) white blood count 5.7 10 4.0-10.0 White Blood Count ETHAN ([facility]) red blood count 4.47 10 4.00-5.40 Red Blood Count ATHE ([facility]) hemoglobin 13.7 g/dL 12.0-15.5 Hemoglobin ETHAN ([facility]) hematocrit 41.3 % 36.0-47.0 Hematocrit ETHAN ([facility]) mean corpuscular volume 92.4 fL 80.0-96.0 Mean Corpusc ular Volume ETHAN ([facility]) mean corpuscular hemoglobin 30.6 pg 27.0-33.0 Mean Cor puscular Hemoglobin ETHAN ([facility]) mean corpuscular HGB conc 33.2 g/dL 32.0-36.5 Mean Corpu scular HGB Conc ETHAN ([facility]) red cell distribution width 13.1 % 11.5-14.5 Red Cell Distribution Width ETHAN ([facility]) platelet count, automated 280 10 150-450 Platelet C ount, Automated ETHAN ([facility]) nucleated red blood cell % 0.0 % 0-0 Nucleated Red Blood Cell % ETHAN ([facility]) ID Date Data Source [id number] 02/20/2020 09:03:00 AM EST ETHAN ([facility]) Name Value Range Interpretation Code Description Data Dee Dee rce(s) Supporting Document(s) Hemoglobin A1c/Hemoglobin.total in Blood 10.5 % Hemoglobin a1C ERIE ([facility]) estimated average glucose 255 mg/dL 60-110 Above high norm al Estimated Average Glucose ERIE ([facility]) ID Date Data Source [id number] 02/20/2020 09:03:00 AM EST ETHAN ([facility]) Name Value Range Interpretation Code Description Data Dee Dee rce(s) Supporting Document(s) ferritin 23 NG/mL 8-252 Ferritin ETHAN ([facility]) ID Date Data Source [id number] 02/20/2020 09:03:00 AM EST ETHAN ([facility]) Name Value Range Interpretation Code Description Data Dee Dee rce(s) Supporting Document(s) total 25(oh) vitamin D 32.0 NG/mL 30.0-100.0 Total 25(Oh) Vitamin D ERIE ([facility]) ID Date Data Source [id number] 02/20/2020 09:03:00 AM EST ETHAN ([facility]) Name Value Range Interpretation Code Description Data Dee Dee rce(s) Supporting Document(s) total iron binding capacity 289 ug/dL 250-450 Total Ir on Binding Capacity ETHAN ([facility]) iron (fe) 80 ug/dL 50-170 Iron (Fe) ETHAN ([facility]) percent saturation 27.7 % 13.2-45.0 Percent Saturatio n ETHAN ([facility]) ID Date Data Source [id number] 02/20/2020 09:03:00 AM EST ETHAN ([facility]) Name Value Range Interpretation Code Description Data Dee Dee rce(s) Supporting Document(s) triglycerides level 298 mg/dL <150 Above high normal Triglycer ides Level ETHAN ([facility]) cholesterol level 162 mg/dL <200 Cholesterol Level ETHAN ([facility]) HDL cholesterol 37 mg/dL >40 Below low normal HDL Cholestero l ETHAN ([facility]) Cholesterol in LDL [Mass/volume] in Serum or Plasma 65 mg/dL <1 00 LDL Cholesterol ETHAN ([facility]) non-HDL-C 125 mg/dL Non-hdl-c ETHAN ([facility]) cholesterol risk ratio <5 Cholesterol R isk Ratio ETHAN ([facility]) ID Date Data Source [id number] 02/20/2020 09:03:00 AM EST ETHAN ([facility]) Name Value Range Interpretation Code Description Data Dee Dee rce(s) Supporting Document(s) glucose, fasting 236 mg/dL 70-100 Above high normal Glucose, Fas ting ETHAN ([facility]) blood urea nitrogen 14 mg/dL 7-18 Blood Urea Nitro gen ETHAN ([facility]) glomerular filtration rate > 60.0 >58 Glomerula r Filtration Rate ETHAN ([facility]) creatinine for GFR 0.65 mg/dL 0.55-1.30 Creatinine for GF R ETHAN ([facility]) potassium serum 4.4 mEq/L 3.5-5.1 Potassium Serum ATHE NA ([facility]) sodium level 135 mEq/L 136-145 Below low normal Sodium Level ATHE NA ([facility]) chloride level 102 mEq/L 98-107 Chloride Level ETHAN ([facility]) carbon dioxide level 27 mEq/L 21-32 Carbon Dioxide Level ETHAN ([facility]) anion gap 6 mEq/L 8-16 Below low normal Anion Gap ETHAN ( [facility]) AST/SGOT 10 U/L 7-37 AST/SGOT ETHAN ([facility]) calcium level 9.4 mg/dL 8.5-10.1 Calcium Level ETHAN ( [facility]) ALT/SGPT 26 U/L 12-78 ALT/SGPT ETHAN ([facility]) bilirubin,total 0.3 mg/dL 0.2-1.0 Bilirubin,total ATHE ([facility]) alkaline phosphatase 92 U/L 45-117 Alkaline Phosph atase ETHAN ([facility]) total protein 6.5 gm/dL 6.4-8.2 Total Protein ETHAN ( [facility]) albumin 3.3 gm/dL 3.2-5.2 Albumin ETHAN ([facility]) albumin/globulin ratio 1.2-2.2 Below low normal Albumin /globulin Ratio ETHAN ([facility]) ID Date Data Source [id number] 02/20/2020 09:03:00 AM EST ETHAN ([facility]) Name Value Range Interpretation Code Description Data Dee Dee rce(s) Supporting Document(s) white blood count 5.7 10 4.0-10.0 White Blood Count ETHAN ([facility]) hemoglobin 13.7 g/dL 12.0-15.5 Hemoglobin ETHAN ([facility]) red blood count 4.47 10 4.00-5.40 Red Blood Count ATHE ([facility]) hematocrit 41.3 % 36.0-47.0 Hematocrit ETHAN ([facility]) mean corpuscular hemoglobin 30.6 pg 27.0-33.0 Mean Cor puscular Hemoglobin ETHAN ([facility]) mean corpuscular volume 92.4 fL 80.0-96.0 Mean Corpusc ular Volume ERIE ([facility]) red cell distribution width 13.1 % 11.5-14.5 Red Cell Distribution Width ERIE ([facility]) mean corpuscular HGB conc 33.2 g/dL 32.0-36.5 Mean Corpu scular HGB Conc ETHAN ([facility]) platelet count, automated 280 10 150-450 Platelet C ount, Automated ETHAN ([facility]) nucleated red blood cell % 0.0 % 0-0 Nucleated Red Blood Cell % ERIE ([facility]) ID Date Data Source [id number] 02/20/2020 09:03:00 AM EST ETHAN ([facility]) Name Value Range Interpretation Code Description Data Dee Dee rce(s) Supporting Document(s) estimated average glucose 255 mg/dL 60-110 Above high norm al Estimated Average Glucose ERIE ([facility]) Hemoglobin A1c/Hemoglobin.total in Blood 10.5 % Hemoglobin a1C ERIE ([facility]) ID Date Data Source [id number] 02/20/2020 09:03:00 AM EST ETHAN ([facility]) Name Value Range Interpretation Code Description Data Dee Dee rce(s) Supporting Document(s) ferritin 23 NG/mL 8-252 Ferritin ETHAN ([facility]) ID Date Data Source [id number] 02/20/2020 09:03:00 AM EST ETHAN ([facility]) Name Value Range Interpretation Code Description Data Dee Dee rce(s) Supporting Document(s) total 25(oh) vitamin D 32.0 NG/mL 30.0-100.0 Total 25(Oh) Vitamin D [facility]) ID Date Data Source [id number] 02/20/2020 09:03:00 AM EST ETHAN ([facility]) Name Value Range Interpretation Code Description Data Dee Dee rce(s) Supporting Document(s) total iron binding capacity 289 ug/dL 250-450 Total Ir on Binding Capacity ETHAN ([facility]) iron (fe) 80 ug/dL 50-170 Iron (Fe) ERIE ([facility]) percent saturation 27.7 % 13.2-45.0 Percent Saturatio n ETHAN ([facility]) ID Date Data Source [id number] 12/24/2019 10:22:02 AM EDT [facility] Measurements & CalculationsHeight: 67 inches (5 [...] Syringe 0.5 MLMfr / Lot# / Exp.Date: [employer] / [id number] / 1Amt. Given / Route / Site: 0.5 mL / IM / Right DeltoidNDC / CVX: [id number] / 150Administered Date: 12/24/2019 11:48VFC Eligibility: Not VFC EligibleVIS Date: 10/24/2018VIS Given / VIS Given On: Yes / 12/24/2019Comments: Administered by: Vandana uMrphy LPN Initial Intake Information From: patientRoom #: [...] during this visit, including review of any txoo-lfu-icnkhcv medications, herbal therapies, and/or supplements.Allergy ReviewAllergy List [...] Problems:Added: Gastro-esophageal reflux disease without esophagitis (ICD-530.81) (SQL32-C76.9) Assessment: Instructions: Omeprazole daily x 30 days. Low acid diet.Assessed:COVID-19 (ALJ39-C81.1) Assessment: Instructions: Symptoms continue to improve, now only requiring as needed albuterol. Call for any worsening symptoms.Dyspnea (ICD-786.05) (GVN45-G15.02) Assessment: Instructions: As above.Ankle edema (ICD-719.07) (UCT45-H15.0) Assessment: Instructions: Continue your routine once daily dose of hydrochlorothiazide.Needs vaccination for influenza (ICD-V04.81) (PSK20-T02) Assessment: Instructions: Flu vaccine today.Hyperglycemia due to type 2 diabetes mellitus (HKA10-B80.65) Assessment: Instructions: Update labs in 2 months at next visit.Removed:Increased frequency of urination (ICD-788.41) (EIL34-W36.0)Patient Instructions/Care Plan: COVID-19: Symptoms continue to improve, [...] (Critical)Orders:Adult - Ofc Vst, EST, Level III [CPT-24010] FluLaval Quadrivalent, preservative free [CPT-12970] Follow-Up Return to clinic: in 2 months for follow upAdditional Follow-Up: T2DM after labsClinical Visit Summary Completed Name Value Range Interpretation Code Description Data Dee Dee rce(s) Supporting Document(s) ID Date Data Source [id number] 12/17/2019 03:06:21 PM EDT [facility] Measurements & CalculationsHeight: 67 inches (5 [...] pH: 6.5 5.0-6.5 Blood: 10 Negative Specific Mayo: 1.020 1.020>=1.030 Ketone: 0.5 Negative Bilirubin: negative [...] for a non-medical reason? 0Performed by: Vandana uMrphy LPN, December 17, 2019 3:14 PMPatient History Medical History:Anxiety DisorderDepressionDiabetes, Type 2D E S ExposurePTSDOCDNeuropathySurgical History:D&CFamily History:FH DepressionFH DiabetesFH Heart DiseaseDiabetes (Father)Heart disease (Mother)Social/Personal History: Chief Complainttrouble breathing/swellingHistory of Present Illness (HPI)Pt is a 44 y/o female, presents for hospital discharge. Pt was admitted to [facility] for COVID19 with pneumonia from 12/04/2019-12/05/2019. [...] during this visit, including review of any ltxf-fid-wghwskl medications, herbal therapies, and/or supplements.Allergy ReviewAllergy List [...] is? FairAssessment & Plan Problems:Added: Dyspnea (ICD-786.05) (JRT86-I87.02)COVID-19 (CFN24-D33.1) Assessment: Instructions: Overall symptoms are improving. Ventolin [...] from your quarantine.Increased frequency of urination (ICD-788.41) (MHE62-D20.0) Assessment: Instructions: No sign of infection. Urine sent for culture and I will call you if this needs antibiotics based on culture.Assessed:Ankle edema (ICD-719.07) (JNM16-Z18.0) Assessment: Instructions: Increase hydrochlorothiazide to 2 tablets [...] 1[Container] Refills: 1 Method: ElectronicAllergies:PENICILL IN (Critical)Orders:Urinalysis-automated [CPT-66946] Urine Culture & Sensitivity [CPT-66751] Adult - Ofc Vst, EST, Level III [CPT-76131] Follow-Up Return to clinic: in 1 week for follow upAdditional Follow-Up: telehealth follow- upClinical Visit Summary CompletedMedications:ALBUTEROL SULFATE HFA 108 (90 BASE) MCG/ACT INHALATION AEROSOL SOLUTION (ALBUTEROL SULFATE) Take 2 puffs oral inhalation q 4 hrs prn wheezing or shortness of breath #1[Container] x 1 Route:INHALATION Entered and Authorized by: Kentrell OSUNA Method used: Electronically to [facility] (retail) [address] [place] [address] Fax: Note to Pharmacy: Route: INHALATION; Indications: COVID- 19;DYSPNEA RxID: [id number] (NEBULIZERS) machine with adult mask and tubing #1[Device] x 0 Entered and Authorized by: Kentrell OSUNA Method used: Electronically to [facility] ([employer]) [address] [place] [address] Indications: COVID-19;DYSPNEA RxID: [id number] SULFATE (2.5 MG/3ML) 0.083% INHALATION NEBULIZATION SOLUTION (ALBUTEROL SULFATE) 1 vial q 4-6hrs prn wheezing/shortness of breath #1[Box] x 0 Route:INHALATION Entered and Authorized by: Kentrell OSUNA Method used: Electronically to [facility]* (retail) [address] [place] [address] Note to Pharmacy: Route: INHALATION; Indications: COVID-19;DYSPNEA RxID: [id number] signed by Kentrell OSUNA on 12/24/2019 at 10:34 AM Name Value Range Interpretation Code Description Data Dee Dee rce(s) Supporting Document(s) ID Date Data Source [id number] 12/17/2019 03:06:21 PM EDT [facility] Name Value Range Interpretation Code Description Data Dee Dee rce(s) Supporting Document(s) [facility] BILIR[facility] negative [facility] [employer] BLOOD UR DIP 10 [facility] [employer] GLUCOSE, URN 60 [facility] KETONES URN 0.5 [facility] NITRITE URN negative [facility] PH URINE 6.5 [facility] PROTEIN, URN 0.15 [facility] SPEC GR URIN 1.020 [facility] [employer] UA COLOR yellow [facility] UROBILINOGEN 3.5 [facility] WBC DIPSTK U negative [facility] ID Date Data Source [id number] 12/17/2019 08:45:00 AM EDT [facility] Name Value Range Interpretation Code Description Data Dee Dee rce(s) Supporting Document(s) URINECULTRTN SPECIMEN APPEARS CONTAMINATED N [facility] ID Date Data Source [id number] 11/19/2019 08:43:28 AM EDT [facility] Measurements & CalculationsHeight: 67 inches (5 [...] following settings: correctional facility, HIV/AIDS residence, homeless retirement, laboratory, halfway care facility, hospital, group home, and/or other healthcare facility.Tuberculosis Screening Performed By: [...] Brand: Tubersol MFR: [employer] Lot #: [id number] EXP: 08/21/2021Initial Intake Information From: patientRoom #: [...] or Preferred Language: EnglishFamily and Home Address: [address] [place] [address] What is your housing situation today? I [...] Denies Insecurity: food, utilities, clothing, early childhood associate, phone, legal services, otherWithin the past year [...] during this visit, including review of any qtla-aqu-yrokezm medications, herbal therapies, and/or supplements.Allergy ReviewAllergy List [...] adult medical examination with abnormal findings (ICD-V70.0) (OOW43-J75.01) Assessment: Instructions: Recommend annual medical appointments. Recommend routine dental and vision care. Recommend influenza vaccines annually and tetanus boosters every 10 years.Encounter for screening for respiratory tuberculosis (ICD-V74.1) (FKK47-A60.1) Assessment: Instructions: PPD placed today. Return in 48-72 hrs for read.Immunization status unknown (DQA96-A94.89) Assessment: Ins tructions: Titers ordered, take this to [facility] for testing.History and physical examination, pre-employment (QUT58-E64.1) Assessment: Instructions: [employer] paperwork will be completed after PPD is read and blood work is resulted.Assessed:Dental caries (ICD-521.00) (QXJ39-O92.9) Assessment: Instructions: Continue per dental, plan is for dental extractions.Iron deficiency anemia, unspecified (DEI27-Y77.9) Assessment: Instructions: Stable without anemia. Continue current iron supplement.GENERALIZED ANXIETY DISORDER (ICD-300.02) (MKA66-W77.1) Assessment: Instructions: Continue current Sertraline.DEPRESSION (ICD-311) (NHP52-C52.9) Assessment: Instructions: As above.Pain in left hip (ICD-719.45) (ZLO52-H62.552) Assessment: Instructions: Call your orthopedist for re-evaluation. Switch from meloxicam to naproxen for better effect.Ankle edema (ICD-719.07) (ICD10- R60.0) Assessment: Instructions: Stable with hydrochlorothiazide.BMI 50.0- 59.9 (ICD-V85.43) (DCL11-J48.43) Assessment: Instructions: Recommend healthy lifestyle modification. Encourage portion control, healthy food choices, and increasing routine physical activity. Recommendation is for 150 minutes throughout the week of cardiovascular exercise.MORBID OBESITY (ICD- 278.01) (SWJ04-D17.01) Assessment: Instructions: As above.Hyperglycemia due to type 2 diabetes mellitus (ZMJ30-J40.65) Assessment: Will update foot exam at next appt. Instructions: A1c 9.0, improving. Continue with diabetic diet, consistent meals, portion sizes (MyPlate), and exercise as able. Continue current medications.Call [facility] to reschedule your annual eye exam.Removed:Acute cystitis without hematuria (WVV62-Z03.00), Chest pain, unspecified (BKG81-C92.9), PHYSICAL EXAMINATION (ICD-V70.0) (HZI00-Z00.00), Anemia, unspecified (AMS30-C04.9)Assessment not Saved Hyperglycemia due to type 2 diabetes mellitus (AFH15-J32.65): Patient Instructions/Care Plan: Encounter for general adult medical examination with abnormal findings: Recommend annual medical appointments. Recommend routine dental and vision care. Recommend influenza vaccines annually and tetanus boosters every 10 years.Encounter for screening for respiratory tuberculosis: PPD placed today. Return in 48-72 hrs for read.Immunization status unknown: Titers ordered, take this to [facility] for testing.History and physical examination- pre-employment: [...] 3 Method: ElectronicTRULICITY 1.5 MG/0.5ML SUBCUTANEOUS SOLUTION [id number] 0.5mL weekly Qty: 12[Prefilled Pen Syrnge] Refills: [...] BLOOD GLUCOSE TEST IN VITRO STRIP Qty: [id number] Refills: 200[Strip] To: BLOOD GLUCOSE TEST IN VITRO STRIP-Use to check blood sugar two times per day and as needed x 90 days Qty: 200[Strip] Refills: 3 To: LANCETS-Use to check blood sugar two times per day and as needed x 90 days Qty: 200[Unspecified] Refills: 3From: ORAL GABAPENTIN 800 MG ORAL TABLET Qty: [phone] Refills: 270[Tablet] To: GABAPENTIN 800 MG ORAL TABLET-Take 1 tablet po TID x 90 days Qty: 270[Tablet] Refills: 3Allergies:PENICILLIN (Critical)Orders:PPD [CPT-35149] Antibody; rubella [CPT- 82486] Antibody; rubeola [CPT-19256] Preventive, Est, (40-64) [CPT-77704] Follow-Up Return to clinic: in 90 days for diabetesAdditional Follow-Up: after labsClinical Visit Summary Completed Name Value Range Interpretation Code Description Data Dee Dee rce(s) Supporting Document(s) ID Date Data Source [id number] 11/13/2019 11:07:50 AM EDT [facility] Labs In-House Blood TestsDate/Time Colle cted: November 13, 2019 9:20 AMTest Result Reference Range Normal ValueComments: taken from right ac tolerated well.Daphnie Barajas, November 13, 2019 11:08 AMAssessment & Plan Orders:[id number] Vst-Est Level I [CPT-98904] 63109 - Venipuncture [CPT-11790] Name Value Range Interpretation Code Description Data Dee Dee rce(s) Supporting Document(s) ID Date Data Source [id number] 11/13/2019 09:25:00 AM EDT [facility] Name Value Range Interpretation Code Description Data Dee Dee rce(s) Supporting Document(s) HCT 42.4 % 36.0-47.0 N [facility] HGB 13.6 g/dL 12.0-15.5 N [facility] MCH 32.1 G/DL pg 32.0-36.5 N [facility] MCHC 28.3 PG % 27.0-33.0 N [facility] PLATELETS 263 10 10*3/mm3 150-450 N [facility] RBC 4.81 10 10*6/mm3 4.00-5.40 N [facility] RDW 16.3 % 11.5-14.5 H [facility] WBC TOTAL 5.8 4.0-10.0 N [facility] ID Date Data Source [id number] 11/13/2019 09:25:00 AM EDT [facility] Name Value Range Interpretation Code Description Data Dee Dee rce(s) Supporting Document(s) BG FASTING 271 mg/dL 70-100 H [facility] VIT D25 TOT 27.6 ng/mL 30.0-100.0 L [facility] ID Date Data Source [id number] 11/13/2019 09:25:00 AM EDT [facility] Name Value Range Interpretation Code Description Data Dee Dee rce(s) Supporting Document(s) HGBA1C 9.0 % N [facility] Procedure Social History Code Duration Value Status Description Data Source(s ) Alcohol intake 08/26/2020 12:00:00 AM EDT Ex-drinker (finding) comp leted Ex- drinker (finding) [facility] Tobacco use and exposure 08/26/2020 12:00:00 AM EDT Never used co mpleted Never used [facility] Smoking 08/26/2020 12:00:00 AM EDT Never smoker completed Never s [facility] Tobacco use and exposure 06/25/2020 12:00:00 AM EDT Never used co mpleted Never used [facility] Smoking 06/25/2020 12:00:00 AM EDT Never smoker completed Never s [facility] Vital Signs ID Date Data Source UNK Name Value Range Interpretation Code Description Data Source(s) Diastolic blood pressure 84 mm[Hg] 84 mm[Hg] ERIE ([facility]) Body height 67 [in_i] 67 [in_i] ETHAN ([facility]) Body mass index (BMI) [Ratio] 52 kg/m2 52 kg/ m2 ETHAN ([facility]) Systolic blood pressure 129 mm[Hg] 129 mm[Hg] A [facility] ([facility]) Body weight 5312 [oz_av] 5312 [oz_av] ETHAN ([facility]) Diastolic blood pressure 84 mm[Hg] 84 mm[Hg] ETHAN ([facility]) Body height 67 [in_i] 67 [in_i] ETHAN ([facility]) Body mass index (BMI) [Ratio] 52.3 kg/m2 52.3 k g/m2 ETHAN ([facility]) Systolic blood pressure 121 mm[Hg] 121 mm[Hg] A [facility] ([facility]) Body weight 5344 [oz_av] 5344 [oz_av] ETHAN ([facility]) Diastolic blood pressure 84 mm[Hg] 84 mm[Hg] ETHAN ([facility]) Body height 67 [in_i] 67 [in_i] ETHAN ([facility]) Body mass index (BMI) [Ratio] 52.3 kg/m2 52.3 k g/m2 ETHAN ([facility]) Systolic blood pressure 121 mm[Hg] 121 mm[Hg] A [facility] ([facility]) Body weight 5344 [oz_av] 5344 [oz_av] ETHAN ([facility]) Body height 67 [in_i] 67 [in_i] ETHAN ([facility]) Body mass index (BMI) [Ratio] 52.3 kg/m2 52.3 k g/m2 ETHAN ([facility]) Systolic blood pressure 121 mm[Hg] 121 mm[Hg] A [facility] ([facility]) Diastolic blood pressure 84 mm[Hg] 84 mm[Hg] ETHAN ([facility]) Body weight 5344 [oz_av] 5344 [oz_av] ETHAN ([facility]) Heart rate 104 /min 104 /min [facility] Body mass index (BMI) [Ratio] 50.63 kg/m2 50.63 kg/m2 [facility] Body height 172.7 cm 172.7 cm [facility] Body weight 151.048 kg 151.048 kg [facility] Body height 67 [in_i] 67 [in_i] ETHAN ([facility]) Diastolic blood pressure 89 mm[Hg] 89 mm[Hg] ETHAN ([facility]) Systolic blood pressure 133 mm[Hg] 133 mm[Hg] A [facility] ([facility]) Diastolic blood pressure 91 mm[Hg] 91 mm[Hg] ETHAN ([facility]) Systolic blood pressure 140 mm[Hg] 140 mm[Hg] A [facility] ([facility]) Body mass index (BMI) [Ratio] 54.7 kg/m2 54.7 k g/m2 ETHAN ([facility]) Body weight 5587.2 [oz_av] 5587.2 [oz_av] ATHEN A ([facility]) Diastolic blood pressure 89 mm[Hg] 89 mm[Hg] ETHAN ([facility]) Diastolic blood pressure 91 mm[Hg] 91 mm[Hg] ETHAN ([facility]) Body mass index (BMI) [Ratio] 54.7 kg/m2 54.7 k g/m2 ETHAN ([facility]) Systolic blood pressure 133 mm[Hg] 133 mm[Hg] [facility]) Systolic blood pressure 140 mm[Hg] 140 mm[Hg] [facility]) Body weight 5587.2 [oz_av] 5587.2 [oz_av] ATHEN A ([facility]) Body height 67 [in_i] 67 [in_i] ETHAN ([facility]) Diastolic blood pressure 89 mm[Hg] 89 mm[Hg] ETHAN ([facility]) Diastolic blood pressure 91 mm[Hg] 91 mm[Hg] ETHAN ([facility]) Body height 67 [in_i] 67 [in_i] ETHAN ([facility]) Body mass index (BMI) [Ratio] 54.7 kg/m2 54.7 k g/m2 ETHAN ([facility]) Systolic blood pressure 133 mm[Hg] 133 mm[Hg] [facility] Systolic blood pressure 140 mm[Hg] 140 mm[Hg] A THENA ([facility]) Body weight 5587.2 [oz_av] 5587.2 [oz_av] ATHEN A ([facility]) Diastolic blood pressure 89 mm[Hg] 89 mm[Hg] ETHAN ([facility]) Diastolic blood pressure 91 mm[Hg] 91 mm[Hg] ETHAN ([facility]) Body height 67 [in_i] 67 [in_i] ETHAN ([facility]) Body mass index (BMI) [Ratio] 54.7 kg/m2 54.7 k g/m2 ETHAN ([facility]) Systolic blood pressure 133 mm[Hg] 133 mm[Hg] [facility] Systolic blood pressure 140 mm[Hg] 140 mm[Hg] A THENA ([facility]) Body weight 5587.2 [oz_av] 5587.2 [oz_av] ATHEN A ([facility]) Diastolic blood pressure 89 mm[Hg] 89 mm[Hg] ETHAN ([facility]) Diastolic blood pressure 91 mm[Hg] 91 mm[Hg] ETHAN ([facility]) Body height 67 [in_i] 67 [in_i] ETHAN ([facility]) Body mass index (BMI) [Ratio] 54.7 kg/m2 54.7 k g/m2 ETHAN ([facility]) Systolic blood pressure 133 mm[Hg] 133 mm[Hg] [facility] Systolic blood pressure 140 mm[Hg] 140 mm[Hg] [facility] Body weight 5587.2 [oz_av] 5587.2 [oz_av] ATHEN A ([facility]) Diastolic blood pressure 89 mm[Hg] 89 mm[Hg] ETHAN ([facility]) Diastolic blood pressure 91 mm[Hg] 91 mm[Hg] ETHAN ([facility]) Body height 67 [in_i] 67 [in_i] ETHAN ([facility]) Body mass index (BMI) [Ratio] 54.7 kg/m2 54.7 k g/m2 ETHAN ([facility]) Systolic blood pressure 133 mm[Hg] 133 mm[Hg] A THENA ([facility]) Systolic blood pressure 140 mm[Hg] 140 mm[Hg] A THENA ([facility]) Body weight 5587.2 [oz_av] 5587.2 [oz_av] ATHEN A ([facility]) Diastolic blood pressure 89 mm[Hg] 89 mm[Hg] ETHAN ([facility]) Diastolic blood pressure 91 mm[Hg] 91 mm[Hg] ETHAN ([facility]) Body height 67 [in_i] 67 [in_i] ETHAN ([facility]) Body mass index (BMI) [Ratio] 54.7 kg/m2 54.7 k g/m2 ETHAN ([facility]) Systolic blood pressure 133 mm[Hg] 133 mm[Hg] A THENA ([facility]) Systolic blood pressure 140 mm[Hg] 140 mm[Hg] A THENA ([facility]) Body weight 5587.2 [oz_av] 5587.2 [oz_av] ATHEN A ([facility]) Diastolic blood pressure 84 mm[Hg] 84 mm[Hg] ETHAN ([facility]) Body height 67 [in_i] 67 [in_i] ETHAN ([facility]) Body mass index (BMI) [Ratio] 55 kg/m2 55 kg/ m2 ETHAN ([facility]) Systolic blood pressure 119 mm[Hg] 119 mm[Hg] A THENA ([facility]) Body weight 5622.4 [oz_av] 5622.4 [oz_av] ATHEN A ([facility]) Diastolic blood pressure 84 mm[Hg] 84 mm[Hg] ETHAN ([facility]) Body height 67 [in_i] 67 [in_i] ETHAN ([facility]) Body mass index (BMI) [Ratio] 55 kg/m2 55 kg/ m2 ETHAN ([facility]) Systolic blood pressure 119 mm[Hg] 119 mm[Hg] A THENA ([facility]) Body weight 5622.4 [oz_av] 5622.4 [oz_av] ATHEN A ([facility]) Body weight 5622.4 [oz_av] 5622.4 [oz_av] ATHEN A ([facility]) Systolic blood pressure 119 mm[Hg] 119 mm[Hg] A THENA ([facility]) Diastolic blood pressure 84 mm[Hg] 84 mm[Hg] ETHAN ([facility]) Body height 67 [in_i] 67 [in_i] ETHAN ([facility]) Body mass index (BMI) [Ratio] 55 kg/m2 55 kg/ m2 ETHAN ([facility]) Body weight 5622.4 [oz_av] 5622.4 [oz_av] ATHEN A ([facility]) Diastolic blood pressure 84 mm[Hg] 84 mm[Hg] ETHAN ([facility]) Body height 67 [in_i] 67 [in_i] ETHAN ([facility]) Body mass index (BMI) [Ratio] 55 kg/m2 55 kg/ m2 ETHAN ([facility]) Systolic blood pressure 119 mm[Hg] 119 mm[Hg] [facility] Body height 67 [in_i] 67 [in_i] ETHAN ([facility]) Diastolic blood pressure 84 mm[Hg] 84 mm[Hg] ETHAN ([facility]) Body mass index (BMI) [Ratio] 55 kg/m2 55 kg/ m2 ETHAN ([facility]) Systolic blood pressure 119 mm[Hg] 119 mm[Hg] [facility] Body weight 5622.4 [oz_av] 5622.4 [oz_av] ATHEN A ([facility]) Diastolic blood pressure 84 mm[Hg] 84 mm[Hg] ETHAN ([facility]) Body height 67 [in_i] 67 [in_i] ETHAN ([facility]) Body mass index (BMI) [Ratio] 55 kg/m2 55 kg/ m2 ETHAN ([facility]) Systolic blood pressure 119 mm[Hg] 119 mm[Hg] [facility]) Body weight 5622.4 [oz_av] 5622.4 [oz_av] ATHEN A ([facility]) Diastolic blood pressure 84 mm[Hg] 84 mm[Hg] ETHAN ([facility]) Body height 67 [in_i] 67 [in_i] ETHAN ([facility]) Body mass index (BMI) [Ratio] 55 kg/m2 55 kg/ m2 ETHAN ([facility]) Systolic blood pressure 119 mm[Hg] 119 mm[Hg] A THENA ([facility]) Body weight 5622.4 [oz_av] 5622.4 [oz_av] ATHEN A ([facility]) Diastolic blood pressure 84 mm[Hg] 84 mm[Hg] ETHAN ([facility]) Body height 67 [in_i] 67 [in_i] ETHAN ([facility]) Body mass index (BMI) [Ratio] 55 kg/m2 55 kg/ m2 ETHAN ([facility]) Systolic blood pressure 119 mm[Hg] 119 mm[Hg] A MAXINE ([facility]) Body weight 5622.4 [oz_av] 5622.4 [oz_av] ATHEN A ([facility]) Diastolic blood pressure 84 mm[Hg] 84 mm[Hg] ETHAN ([facility]) Body height 67 [in_i] 67 [in_i] ETHAN ([facility]) Body mass index (BMI) [Ratio] 55 kg/m2 55 kg/ m2 ETHAN ([facility]) Systolic blood pressure 119 mm[Hg] 119 mm[Hg] A MAXINE ([facility]) Body weight 5622.4 [oz_av] 5622.4 [oz_av] ATHEN A ([facility]) Diastolic blood pressure 84 mm[Hg] 84 mm[Hg] ETHAN ([facility]) Body height 67 [in_i] 67 [in_i] ETHAN ([facility]) Body mass index (BMI) [Ratio] 55 kg/m2 55 kg/ m2 ETHAN ([facility]) Systolic blood pressure 119 mm[Hg] 119 mm[Hg] A MAXINE ([facility]) Body weight 5622.4 [oz_av] 5622.4 [oz_av] ATHNANCIE A ([facility]) Body height 67 [in_i] 67 [in_i] ETHAN ([facility]) Body height 67 [in_i] 67 [in_i] ETHAN ([facility]) Body height 67 [in_i] 67 [in_i] ETHAN ([facility]) Body height 67 [in_i] 67 [in_i] ETHAN ([facility]) Body height 67 [in_i] 67 [in_i] ETHAN ([facility]) Body height 67 [in_i] 67 [in_i] ETHAN ([facility]) Body height 67 [in_i] 67 [in_i] ETHAN ([facility]) Body height 67 [in_i] 67 [in_i] ETHAN ([facility]) Body height 67 [in_i] 67 [in_i] ETHAN ([facility]) Body height 67 [in_i] 67 [in_i] ETHAN ([facility]) Body height 67 [in_i] 67 [in_i] ETHAN ([facility]) Body height 67 [in_i] 67 [in_i] ETHAN ([facility]) Body temperature 97.1 [degF] 97.1 [degF] MEDENT ([facility]) Body height 68 [in_i] 68 [in_i] MEDENT ([facility]) 5'8" Body weight 358.00 [lb_av] 358.00 [lb_av] MEDEN T ([facility]) Body mass index (BMI) [Ratio] 54.4 kg/m2 54.4 k g/m2 MEDENT ([facility]) Diastolic blood pressure 92 mm[Hg] 92 mm[Hg] ETHAN ([facility]) Body height 67 [in_i] 67 [in_i] ETHAN ([facility]) Systolic blood pressure 145 mm[Hg] 145 mm[Hg] A THENA ([facility]) Body mass index (BMI) [Ratio] 56.1 kg/m2 56.1 k g/m2 ETHAN ([facility]) Body weight 5728 [oz_av] 5728 [oz_av] ETHAN ([facility]) Body weight 5728 [oz_av] 5728 [oz_av] ETHAN ([facility]) Systolic blood pressure 145 mm[Hg] 145 mm[Hg] A THENA ([facility]) Body mass index (BMI) [Ratio] 56.1 kg/m2 56.1 k g/m2 ETHAN ([facility]) Diastolic blood pressure 92 mm[Hg] 92 mm[Hg] ETHAN ([facility]) Body height 67 [in_i] 67 [in_i] ETHAN ([facility]) Body height 67 [in_i] 67 [in_i] ETHAN ([facility]) Body mass index (BMI) [Ratio] 56.1 kg/m2 56.1 k g/m2 ETHAN ([facility]) Systolic blood pressure 145 mm[Hg] 145 mm[Hg] [facility] Diastolic blood pressure 92 mm[Hg] 92 mm[Hg] ETHAN ([facility]) Body weight 5728 [oz_av] 5728 [oz_av] ETHAN ([facility]) Diastolic blood pressure 92 mm[Hg] 92 mm[Hg] ETHAN ([facility]) Body height 67 [in_i] 67 [in_i] ETHAN ([facility]) Body mass index (BMI) [Ratio] 56.1 kg/m2 56.1 k g/m2 ETHAN ([facility]) Systolic blood pressure 145 mm[Hg] 145 mm[Hg] A THENA ([facility]) Body weight 5728 [oz_av] 5728 [oz_av] ETHAN ([facility]) Diastolic blood pressure 92 mm[Hg] 92 mm[Hg] ETHAN ([facility]) Body mass index (BMI) [Ratio] 56.1 kg/m2 56.1 k g/m2 ETHAN ([facility]) Systolic blood pressure 145 mm[Hg] 145 mm[Hg] A THENA ([facility]) Body weight 5728 [oz_av] 5728 [oz_av] ETHAN ([facility]) Body height 67 [in_i] 67 [in_i] ETHAN ([facility]) Diastolic blood pressure 92 mm[Hg] 92 mm[Hg] ETHAN ([facility]) Systolic blood pressure 145 mm[Hg] 145 mm[Hg] A THENA ([facility]) Body weight 5728 [oz_av] 5728 [oz_av] ETHAN ([facility]) Body height 67 [in_i] 67 [in_i] ETHAN ([facility]) Body mass index (BMI) [Ratio] 56.1 kg/m2 56.1 k g/m2 ETHAN ([facility]) Diastolic blood pressure 92 mm[Hg] 92 mm[Hg] ETHAN ([facility]) Body height 67 [in_i] 67 [in_i] ETHAN ([facility]) Body mass index (BMI) [Ratio] 56.1 kg/m2 56.1 k g/m2 ETHAN ([facility]) Systolic blood pressure 145 mm[Hg] 145 mm[Hg] A THENA ([facility]) Body weight 5728 [oz_av] 5728 [oz_av] ETHAN ([facility]) Diastolic blood pressure 92 mm[Hg] 92 mm[Hg] ETHAN ([facility]) Body height 67 [in_i] 67 [in_i] ETHAN ([facility]) Body mass index (BMI) [Ratio] 56.1 kg/m2 56.1 k g/m2 ETHAN ([facility]) Systolic blood pressure 145 mm[Hg] 145 mm[Hg] [facility]) Body weight 5728 [oz_av] 5728 [oz_av] ETHAN ([facility]) Diastolic blood pressure 92 mm[Hg] 92 mm[Hg] ETHAN ([facility]) Body height 67 [in_i] 67 [in_i] ETHAN ([facility]) Body mass index (BMI) [Ratio] 56.1 kg/m2 56.1 k g/m2 ETHAN ([facility]) Systolic blood pressure 145 mm[Hg] 145 mm[Hg] A THENA ([facility]) Body weight 5728 [oz_av] 5728 [oz_av] ETHAN ([facility]) Diastolic blood pressure 92 mm[Hg] 92 mm[Hg] ETHAN ([facility]) Body height 67 [in_i] 67 [in_i] ETHAN ([facility]) Body mass index (BMI) [Ratio] 56.1 kg/m2 56.1 k g/m2 ETHAN ([facility]) Systolic blood pressure 145 mm[Hg] 145 mm[Hg] A THENA ([facility]) Body weight 5728 [oz_av] 5728 [oz_av] ETHAN ([facility]) Body weight 5728 [oz_av] 5728 [oz_av] ETHAN ([facility]) Diastolic blood pressure 92 mm[Hg] 92 mm[Hg] ETHAN ([facility]) Body height 67 [in_i] 67 [in_i] ETHAN ([facility]) Body mass index (BMI) [Ratio] 56.1 kg/m2 56.1 k g/m2 ETHAN ([facility]) Systolic blood pressure 145 mm[Hg] 145 mm[Hg] [facility]) Body height 67 [in_i] 67 [in_i] ETHAN ([facility]) Body mass index (BMI) [Ratio] 56.1 kg/m2 56.1 k g/m2 ETHAN ([facility]) Systolic blood pressure 145 mm[Hg] 145 mm[Hg] [facility]) Body weight 5728 [oz_av] 5728 [oz_av] ETHAN ([facility]) Diastolic blood pressure 92 mm[Hg] 92 mm[Hg] ETHAN ([facility]) Diastolic blood pressure 92 mm[Hg] 92 mm[Hg] ETHAN ([facility]) Body height 67 [in_i] 67 [in_i] ETHAN ([facility]) Body mass index (BMI) [Ratio] 56.1 kg/m2 56.1 k g/m2 ETHAN ([facility]) Systolic blood pressure 145 mm[Hg] 145 mm[Hg] [facility]) Body weight 5728 [oz_av] 5728 [oz_av] ETHAN ([facility]) Diastolic blood pressure 92 mm[Hg] 92 mm[Hg] ETHAN ([facility]) Body height 67 [in_i] 67 [in_i] ETHAN ([facility]) Body mass index (BMI) [Ratio] 56.1 kg/m2 56.1 k g/m2 ETHAN ([facility]) Systolic blood pressure 145 mm[Hg] 145 mm[Hg] A THENA ([facility]) Body weight 5728 [oz_av] 5728 [oz_av] ETHAN ([facility]) Body height 67 [in_i] 67 [in_i] ETHAN ([facility]) Body height 67 [in_i] 67 [in_i] ETHAN ([facility]) Body height 67 [in_i] 67 [in_i] ETHAN ([facility]) Body height 67 [in_i] 67 [in_i] ETHAN ([facility]) Body height 67 [in_i] 67 [in_i] ETHAN ([facility]) Body height 67 [in_i] 67 [in_i] ETHAN ([facility]) Body height 67 [in_i] 67 [in_i] ETHAN ([facility]) Body height 67 [in_i] 67 [in_i] ETHAN ([facility]) Body height 67 [in_i] 67 [in_i] ETHAN ([facility]) Body height 67 [in_i] 67 [in_i] ETHAN ([facility]) Body height 67 [in_i] 67 [in_i] ETHAN ([facility]) Body height 67 [in_i] 67 [in_i] ETHAN ([facility]) Body height 67 [in_i] 67 [in_i] ETHAN ([facility]) Body height 67 [in_i] 67 [in_i] ETHAN ([facility]) Body height 67 [in_i] 67 [in_i] ETHAN ([facility]) Body height 67 [in_i] 67 [in_i] ETHAN ([facility]) Diastolic blood pressure 86 mm[Hg] 86 mm[Hg] ETHAN ([facility]) Body mass index (BMI) [Ratio] 54.98 kg/m2 54.98 kg/m2 ETHAN ([facility]) Systolic blood pressure 133 mm[Hg] 133 mm[Hg] A THENA ([facility]) Body weight 5596.8 [oz_av] 5596.8 [oz_av] ATHEN A ([facility]) Body mass index (BMI) [Ratio] 54.98 kg/m2 54.98 kg/m2 ETHAN ([facility]) Diastolic blood pressure 86 mm[Hg] 86 mm[Hg] ETHAN ([facility]) Body height 67 [in_i] 67 [in_i] ETHAN ([facility]) Systolic blood pressure 133 mm[Hg] 133 mm[Hg] A THENA ([facility]) Body weight 5596.8 [oz_av] 5596.8 [oz_av] ATHEN A ([facility]) Diastolic blood pressure 86 mm[Hg] 86 mm[Hg] ETHAN ([facility]) Body height 67 [in_i] 67 [in_i] ETHAN ([facility]) Body mass index (BMI) [Ratio] 54.98 kg/m2 54.98 kg/m2 ETHAN ([facility]) Systolic blood pressure 133 mm[Hg] 133 mm[Hg] A THENA ([facility]) Body weight 5596.8 [oz_av] 5596.8 [oz_av] ATHEN A ([facility]) Systolic blood pressure 133 mm[Hg] 133 mm[Hg] [facility]) Body weight 5596.8 [oz_av] 5596.8 [oz_av] ATHEN A ([facility]) Diastolic blood pressure 86 mm[Hg] 86 mm[Hg] ETHAN ([facility]) Body mass index (BMI) [Ratio] 54.98 kg/m2 54.98 kg/m2 ETHAN ([facility]) Body height 67 [in_i] 67 [in_i] ETHAN ([facility]) Diastolic blood pressure 86 mm[Hg] 86 mm[Hg] ETHAN ([facility]) Body height 67 [in_i] 67 [in_i] ETHAN ([facility]) Body mass index (BMI) [Ratio] 54.98 kg/m2 54.98 kg/m2 ETHAN ([facility]) Systolic blood pressure 133 mm[Hg] 133 mm[Hg] [facility]) Body weight 5596.8 [oz_av] 5596.8 [oz_av] ATHEN A ([facility]) Diastolic blood pressure 86 mm[Hg] 86 mm[Hg] ETHAN ([facility]) Body height 67 [in_i] 67 [in_i] ETHAN ([facility]) Body mass index (BMI) [Ratio] 54.98 kg/m2 54.98 kg/m2 ETHAN ([facility]) Systolic blood pressure 133 mm[Hg] 133 mm[Hg] A THENA ([facility]) Body weight 5596.8 [oz_av] 5596.8 [oz_av] ATHEN A ([facility]) Diastolic blood pressure 86 mm[Hg] 86 mm[Hg] ETHAN ([facility]) Body height 67 [in_i] 67 [in_i] ETHAN ([facility]) Body mass index (BMI) [Ratio] 54.98 kg/m2 54.98 kg/m2 ETHAN ([facility]) Systolic blood pressure 133 mm[Hg] 133 mm[Hg] A KAMLAA ([facility]) Body weight 5596.8 [oz_av] 5596.8 [oz_av] ATHEN A ([facility]) Diastolic blood pressure 86 mm[Hg] 86 mm[Hg] ETHAN ([facility]) Body height 67 [in_i] 67 [in_i] ETHAN ([facility]) Body mass index (BMI) [Ratio] 54.98 kg/m2 54.98 kg/m2 ETHAN ([facility]) Systolic blood pressure 133 mm[Hg] 133 mm[Hg] A KAMLAA ([facility]) Body weight 5596.8 [oz_av] 5596.8 [oz_av] ATHEN A ([facility]) Diastolic blood pressure 86 mm[Hg] 86 mm[Hg] ETHAN ([facility]) Body height 67 [in_i] 67 [in_i] ETHAN ([facility]) Body mass index (BMI) [Ratio] 54.98 kg/m2 54.98 kg/m2 ETHAN ([facility]) Systolic blood pressure 133 mm[Hg] 133 mm[Hg] A THENA ([facility]) Body weight 5596.8 [oz_av] 5596.8 [oz_av] ATHEN A ([facility]) Diastolic blood pressure 86 mm[Hg] 86 mm[Hg] ETHAN ([facility]) Body height 67 [in_i] 67 [in_i] ETHAN ([facility]) Body mass index (BMI) [Ratio] 54.98 kg/m2 54.98 kg/m2 TEHAN ([facility]) Systolic blood pressure 133 mm[Hg] 133 mm[Hg] [facility] Body weight 5596.8 [oz_av] 5596.8 [oz_av] ATHEN A ([facility]) Diastolic blood pressure 86 mm[Hg] 86 mm[Hg] ETHAN ([facility]) Body height 67 [in_i] 67 [in_i] ETHAN ([facility]) Body mass index (BMI) [Ratio] 54.98 kg/m2 54.98 kg/m2 ETHAN ([facility]) Systolic blood pressure 133 mm[Hg] 133 mm[Hg] A [facility] ([facility]) Body weight 5596.8 [oz_av] 5596.8 [oz_av] ATHEN A ([facility]) Diastolic blood pressure 86 mm[Hg] 86 mm[Hg] ETHAN ([facility]) Body height 67 [in_i] 67 [in_i] ETHAN ([facility]) Body mass index (BMI) [Ratio] 54.98 kg/m2 54.98 kg/m2 ETHAN ([facility]) Systolic blood pressure 133 mm[Hg] 133 mm[Hg] A [facility] ([facility]) Body weight 5596.8 [oz_av] 5596.8 [oz_av] ATHEN A ([facility]) Diastolic blood pressure 92 mm[Hg] 92 mm[Hg] ETHAN ([facility]) Systolic blood pressure 144 mm[Hg] 144 mm[Hg] A [facility] ([facility]) Body height 67 [in_i] 67 [in_i] ETHAN ([facility]) Body mass index (BMI) [Ratio] 57.78 kg/m2 57.78 kg/m2 ETHAN ([facility]) Body weight 5881.6 [oz_av] 5881.6 [oz_av] ATHEN A ([facility]) Body mass index (BMI) [Ratio] 57.78 kg/m2 57.78 kg/m2 ETHAN ([facility]) Diastolic blood pressure 92 mm[Hg] 92 mm[Hg] ETHAN ([facility]) Body height 67 [in_i] 67 [in_i] ETHAN ([facility]) Systolic blood pressure 144 mm[Hg] 144 mm[Hg] A [facility] ([facility]) Body weight 5881.6 [oz_av] 5881.6 [oz_av] ATHEN A ([facility]) Body weight 5881.6 [oz_av] 5881.6 [oz_av] ATHEN A ([facility]) Body height 67 [in_i] 67 [in_i] ETHAN ([facility]) Body mass index (BMI) [Ratio] 57.78 kg/m2 57.78 kg/m2 ETHAN ([facility]) Systolic blood pressure 144 mm[Hg] 144 mm[Hg] A [facility] ([facility]) Diastolic blood pressure 92 mm[Hg] 92 mm[Hg] ETHAN ([facility]) Diastolic blood pressure 92 mm[Hg] 92 mm[Hg] ETHAN ([facility]) Body height 67 [in_i] 67 [in_i] ETHAN ([facility]) Body mass index (BMI) [Ratio] 57.78 kg/m2 57.78 kg/m2 ETHAN ([facility]) Systolic blood pressure 144 mm[Hg] 144 mm[Hg] A [facility] ([facility]) Body weight 5881.6 [oz_av] 5881.6 [oz_av] ATHEN A ([facility]) Diastolic blood pressure 92 mm[Hg] 92 mm[Hg] ETHAN ([facility]) Body height 67 [in_i] 67 [in_i] ETHAN ([facility]) Body mass index (BMI) [Ratio] 57.78 kg/m2 57.78 kg/m2 ETHAN ([facility]) Systolic blood pressure 144 mm[Hg] 144 mm[Hg] A THENA ([facility]) Body weight 5881.6 [oz_av] 5881.6 [oz_av] ATHEN A ([facility]) Body weight 5881.6 [oz_av] 5881.6 [oz_av] ATHEN A ([facility]) Diastolic blood pressure 92 mm[Hg] 92 mm[Hg] ETHAN ([facility]) Body height 67 [in_i] 67 [in_i] ETHAN ([facility]) Body mass index (BMI) [Ratio] 57.78 kg/m2 57.78 kg/m2 ETHAN ([facility]) Systolic blood pressure 144 mm[Hg] 144 mm[Hg] A THENA ([facility]) Diastolic blood pressure 92 mm[Hg] 92 mm[Hg] ETHAN ([facility]) Body height 67 [in_i] 67 [in_i] ETHAN ([facility]) Body mass index (BMI) [Ratio] 57.78 kg/m2 57.78 kg/m2 ETHAN ([facility]) Systolic blood pressure 144 mm[Hg] 144 mm[Hg] [facility] Body weight 5881.6 [oz_av] 5881.6 [oz_av] ATHEN A ([facility]) Diastolic blood pressure 92 mm[Hg] 92 mm[Hg] ETHAN ([facility]) Body height 67 [in_i] 67 [in_i] ETHAN ([facility]) Body mass index (BMI) [Ratio] 57.78 kg/m2 57.78 kg/m2 ETHAN ([facility]) Systolic blood pressure 144 mm[Hg] 144 mm[Hg] A THENA ([facility]) Body weight 5881.6 [oz_av] 5881.6 [oz_av] ATHEN A ([facility]) Diastolic blood pressure 92 mm[Hg] 92 mm[Hg] ETHAN ([facility]) Body height 67 [in_i] 67 [in_i] ETHAN ([facility]) Body mass index (BMI) [Ratio] 57.78 kg/m2 57.78 kg/m2 ETHAN ([facility]) Systolic blood pressure 144 mm[Hg] 144 mm[Hg] A THENA ([facility]) Body weight 5881.6 [oz_av] 5881.6 [oz_av] ATHEN A ([facility]) Body height 67 [in_i] 67 [in_i] ETHAN ([facility]) Diastolic blood pressure 92 mm[Hg] 92 mm[Hg] ETHAN ([facility]) Body mass index (BMI) [Ratio] 57.78 kg/m2 57.78 kg/m2 ETHAN ([facility]) Systolic blood pressure 144 mm[Hg] 144 mm[Hg] A [facility] Body weight 5881.6 [oz_av] 5881.6 [oz_av] ATHEN A ([facility]) Diastolic blood pressure 92 mm[Hg] 92 mm[Hg] ETHAN ([facility]) Body height 67 [in_i] 67 [in_i] ETHAN ([facility]) Body mass index (BMI) [Ratio] 57.78 kg/m2 57.78 kg/m2 ETHAN ([facility]) Systolic blood pressure 144 mm[Hg] 144 mm[Hg] A [facility] ([facility]) Body weight 5881.6 [oz_av] 5881.6 [oz_av] ATHEN A ([facility]) Diastolic blood pressure 92 mm[Hg] 92 mm[Hg] ETHAN ([facility]) Body height 67 [in_i] 67 [in_i] ETHAN ([facility]) Body mass index (BMI) [Ratio] 57.78 kg/m2 57.78 kg/m2 ETHAN ([facility]) Systolic blood pressure 144 mm[Hg] 144 mm[Hg] A THENA ([facility]) Body weight 5881.6 [oz_av] 5881.6 [oz_av] ATHEN A ([facility]) Body height 67 [in_i] 67 [in_i] ETHAN ([facility]) Diastolic blood pressure 81 mm[Hg] 81 mm[Hg] ETHAN ([facility]) Body mass index (BMI) [Ratio] 55.64 kg/m2 55.64 kg/m2 ETHAN ([facility]) Systolic blood pressure 117 mm[Hg] 117 mm[Hg] A [facility]) Body weight 5664 [oz_av] 5664 [oz_av] ETHAN ([facility]) Body mass index (BMI) [Ratio] 55.64 kg/m2 55.64 kg/m2 ETHAN ([facility]) Diastolic blood pressure 81 mm[Hg] 81 mm[Hg] ETHAN ([facility]) Body height 67 [in_i] 67 [in_i] ETHAN ([facility]) Systolic blood pressure 117 mm[Hg] 117 mm[Hg] A THENA ([facility]) Body weight 5664 [oz_av] 5664 [oz_av] ETHAN ([facility]) Diastolic blood pressure 81 mm[Hg] 81 mm[Hg] ETHAN ([facility]) Body height 67 [in_i] 67 [in_i] ETHAN ([facility]) Body mass index (BMI) [Ratio] 55.64 kg/m2 55.64 kg/m2 ETHAN ([facility]) Systolic blood pressure 117 mm[Hg] 117 mm[Hg] A THENA ([facility]) Body weight 5664 [oz_av] 5664 [oz_av] ETHAN ([facility]) Diastolic blood pressure 81 mm[Hg] 81 mm[Hg] ETHAN ([facility]) Body height 67 [in_i] 67 [in_i] ETHAN ([facility]) Body weight 5664 [oz_av] 5664 [oz_av] ETHAN ([facility]) Body mass index (BMI) [Ratio] 55.64 kg/m2 55.64 kg/m2 ETHAN ([facility]) Systolic blood pressure 117 mm[Hg] 117 mm[Hg] A THENA ([facility]) Diastolic blood pressure 81 mm[Hg] 81 mm[Hg] ETHAN ([facility]) Body height 67 [in_i] 67 [in_i] ETHAN ([facility]) Body mass index (BMI) [Ratio] 55.64 kg/m2 55.64 kg/m2 ETHAN ([facility]) Systolic blood pressure 117 mm[Hg] 117 mm[Hg] A THENA ([facility]) Body weight 5664 [oz_av] 5664 [oz_av] ETHAN ([facility]) Diastolic blood pressure 81 mm[Hg] 81 mm[Hg] ETHAN ([facility]) Body height 67 [in_i] 67 [in_i] ETHAN ([facility]) Body mass index (BMI) [Ratio] 55.64 kg/m2 55.64 kg/m2 ETHAN ([facility]) Systolic blood pressure 117 mm[Hg] 117 mm[Hg] A THENA ([facility]) Body weight 5664 [oz_av] 5664 [oz_av] ETHAN ([facility]) Diastolic blood pressure 81 mm[Hg] 81 mm[Hg] ETHAN ([facility]) Body height 67 [in_i] 67 [in_i] ETHAN ([facility]) Body mass index (BMI) [Ratio] 55.64 kg/m2 55.64 kg/m2 ETHAN ([facility]) Systolic blood pressure 117 mm[Hg] 117 mm[Hg] A [facility]) Body weight 5664 [oz_av] 5664 [oz_av] ETHAN ([facility]) Diastolic blood pressure 81 mm[Hg] 81 mm[Hg] ETHAN ([facility]) Body height 67 [in_i] 67 [in_i] ETHAN ([facility]) Body mass index (BMI) [Ratio] 55.64 kg/m2 55.64 kg/m2 ETHAN ([facility]) Systolic blood pressure 117 mm[Hg] 117 mm[Hg] A THENA ([facility]) Body weight 5664 [oz_av] 5664 [oz_av] ETHAN ([facility]) Diastolic blood pressure 81 mm[Hg] 81 mm[Hg] ETHAN ([facility]) Body height 67 [in_i] 67 [in_i] ETAHN ([facility]) Body mass index (BMI) [Ratio] 55.64 kg/m2 55.64 kg/m2 ETHAN ([facility]) Systolic blood pressure 117 mm[Hg] 117 mm[Hg] A [facility]) Body weight 5664 [oz_av] 5664 [oz_av] ETHAN ([facility]) Diastolic blood pressure 81 mm[Hg] 81 mm[Hg] ETHAN ([facility]) Body height 67 [in_i] 67 [in_i] ETHAN ([facility]) Body mass index (BMI) [Ratio] 55.64 kg/m2 55.64 kg/m2 ETHAN ([facility]) Systolic blood pressure 117 mm[Hg] 117 mm[Hg] A KAMLAA ([facility]) Body weight 5664 [oz_av] 5664 [oz_av] ETHAN ([facility]) Diastolic blood pressure 81 mm[Hg] 81 mm[Hg] ETHAN ([facility]) Body height 67 [in_i] 67 [in_i] ETHAN ([facility]) Body mass index (BMI) [Ratio] 55.64 kg/m2 55.64 kg/m2 ETHAN ([facility]) Systolic blood pressure 117 mm[Hg] 117 mm[Hg] A KAMLAA ([facility]) Body weight 5664 [oz_av] 5664 [oz_av] ETHAN ([facility]) Diastolic blood pressure 81 mm[Hg] 81 mm[Hg] ETHAN ([facility]) Body height 67 [in_i] 67 [in_i] ETHAN ([facility]) Body mass index (BMI) [Ratio] 55.64 kg/m2 55.64 kg/m2 ETHAN ([facility]) Systolic blood pressure 117 mm[Hg] 117 mm[Hg] A THENA ([facility]) Body weight 5664 [oz_av] 5664 [oz_av] ETHAN ([facility]) ID Date Data Source [id number] 06/26/2020 06:11:32 PM EDT [facility] Name Value Range Interpretation Code Description Data Source(s) WEIGHT RECORDED 345.[address] [facility] Body height Measured 67.32 in 67[address] [facility] Patient Treatment Plan of Care Planned Activity Planned Date Details Description Data Source (s) canagliflozin 100 MG Oral Tablet [Invokana] 07/12/2020 12:00:00 AM EDT [facility] sitagliptin 100 MG Oral Tablet 07/09/2020 12:00:00 AM EDT [facility] Metformin hydrochloride 1000 MG Oral Tablet 07/09/2020 12:00:00 AM [facility] Insulin Glargine (Basaglar KwikPen) 100 UNIT/ML SOPN 021 12:00:00 AM [facility] BD Pen Needle Mini U/F 31G X 5 MM (Insulin Pen Needle) 06/25/2020 12:00:00 AM [facility] ospital Basaglar KwikPen 100 UNIT/ML Subcutaneou s Solution Pen-injector (insulin glargine) 06/25/2020 12:00:00 AM [facility] Lisinopril 10 MG Oral Tablet 06/22/2020 12:00:00 AM [facility] ferrous sulfate 325 MG Oral Tablet 06/22/2020 12:00:00 AM [facility] sitagliptin 50 MG Oral Tablet [Januvia] 06/22/2020 12:00:00 AM [facility] ferrous sulfate 325 MG Oral Tablet 06/22/2020 12:00:00 AM [facility] Lisinopril 10 MG Oral Tablet 06/22/2020 12:00:00 AM [facility] Hydrochlorothiazide 12.5 MG Oral Capsule 06/20/2020 12:00:00 AM [facility] Metformin hydrochloride 1000 MG Oral Tablet 06/20/2020 12:00:00 AM [facility] Hydrochlorothiazide 12.5 MG Oral Capsule 06/20/2020 12:00:00 AM [facility] pregabalin 100 MG Oral Capsule 06/09/2020 12:00:00 AM [facility] pregabalin 100 MG Oral Capsule 06/09/2020 12:00:00 AM [facility] Omeprazole 20 MG Delayed Release Oral Capsule 05/25/2020 12:00:00 A M [facility] Omeprazole 20 MG Delayed Release Oral Capsule 05/25/2020 12:00:00 A M [facility] Glyburide 5 MG Oral Tablet 05/25/2020 12:00:00 AM [facility] Naproxen 500 MG Oral Tablet 05/23/2020 12:00:00 AM EST [facility] 0.5 ML dulaglutide 3 MG/ML Auto-Injector [Trulicity] ETHAN ([facility]) 0.5 ML dulaglutide 1.5 MG/ML Auto-Injector [Trulicity] ETHAN ([facility]) Sulfamethoxazole 800 MG / Trimethoprim 160 MG Oral Tablet ETHAN ([facility]) silver sulfadiazine 10 MG/ML Topical [facility]SSD] [facility] Sertraline 50 MG Oral Tablet ETHAN ([facility]) Sertraline 25 MG Oral Tablet ETHAN ([facility]) Sertraline 100 MG Oral Tablet ETHAN ([facility]) pregabalin 50 MG Oral Capsule ETHAN ([facility]) Phenazopyridine hydrochloride 100 MG Oral Tablet ETHAN ([facility]) Omeprazole 40 MG Delayed Release Oral Capsule ERIE ([facility]) NITROFURANTOIN, MACROCRYSTALS 25 MG / Ni trofurantoin, Monohydrate 75 MG Oral Capsule ETHAN ([facility]) Naproxen 500 MG Oral Tablet ETHAN ([facility]) Metronidazole 500 MG Oral Tablet [facility] Metronidazole 0.0075 MG/MG Vaginal Gel ETHAN ([facility]) Metoclopramide 10 MG Oral Tablet ETHAN ([facility]) meloxicam 15 MG Oral Tablet ETHAN ([facility]) Lisinopril 5 MG Oral Tablet ETHAN ([facility]) Lisinopril 10 MG Oral Tablet ETHAN ([facility]) Levofloxacin 500 MG Oral Tablet ETHAN ([facility]) Levofloxacin 250 MG Oral Tablet ETHAN ([facility]) sitagliptin 50 MG Oral Tablet [Januvia] [facility] canagliflozin 100 MG Oral Tablet [Invokana] [facility] Glyburide 5 MG Oral Tablet A THENA ([facility]) Simethicone 180 MG Oral Capsule ETHAN ([facility]) gabapentin 800 MG Oral Tablet ETHAN ([facility]) gabapentin 600 MG Oral Tablet ETHAN ([facility]) Fluoxetine 10 MG Oral Capsule ETHAN ([facility]) Fluconazole 150 MG Oral Tablet ETHAN ([facility]) ferrous sulfate 325 MG Oral Tablet ETHAN ([facility]) Lactulose 667 MG/ML Oral Solution [Enulose] ETHAN ([facility]) Dicyclomine Hydrochloride 10 MG Oral Capsule ETHAN ([facility]) Dexamethasone 1 MG Oral Tablet ETHAN ([facility]) Clindamycin 300 MG Oral Capsule ETHAN ([facility]) Ciprofloxacin 250 MG Oral Tablet ETHAN ([facility]) Ciprofloxacin 3 MG/ML Ophthalmic Solution ETHAN ([facility]) Cephalexin 500 MG Oral Capsule ETHAN ([facility]) cefdinir 300 MG Oral Capsule ETHAN ([facility]) albuterol sulfate HFA 90 mcg/actuation a erosol inhaler INHALE 2 PUFFS BY MOUTH EVERY 4 HOURS NEEDED FOR WHEEZING OR SHORTNESS OF BREATH ETHAN ([facility]) Albuterol 0.83 MG/ML Inhalant Solution ETHAN ([facility]) Acetaminophen 500 MG Oral Tablet ETHAN ([facility]) 0.5 ML dulaglutide 3 MG/ML Auto-Injector [Trulicity] ETHAN ([facility]) 0.5 ML dulaglutide 1.5 MG/ML Auto-Injector [Trulicity] ETHAN ([facility]) Sulfamethoxazole 800 MG / Trimethoprim 160 MG Oral Tablet ETHAN ([facility]) silver sulfadiazine 10 MG/ML Topical Cream [SSD] ETHAN ([facility]) Sertraline 50 MG Oral Tablet ETHAN ([facility]) Sertraline 25 MG Oral Tablet ETHAN ([facility]) Sertraline 100 MG Oral Tablet ETHAN ([facility]) pregabalin 50 MG Oral Capsule ETHAN ([facility]) Omeprazole 40 MG Delayed Release Oral Capsule ETHAN ([facility]) Naproxen 500 MG Oral Tablet ETHAN ([facility]) Metronidazole 500 MG Oral Tablet ETHAN ([facility]) Metronidazole 0.0075 MG/MG Vaginal Gel ETHAN ([facility]) Metoclopramide 10 MG Oral Tablet ETHAN ([facility]) meloxicam 15 MG Oral Tablet ETHAN ([facility]) Lisinopril 5 MG Oral Tablet ETHAN ([facility]) Levofloxacin 250 MG Oral Tablet ETHAN ([facility]) sitagliptin 50 MG Oral Tablet [Januvia] ETHAN ([facility]) Glyburide 5 MG Oral Tablet A THENA ([facility]) Simethicone 180 MG Oral Capsule ETHAN ([facility]) gabapentin 800 MG Oral Tablet ETHAN ([facility]) gabapentin 600 MG Oral Tablet ETHAN ([facility]) Fluoxetine 10 MG Oral Capsule ETHAN ([facility]) Lactulose 667 MG/ML Oral Solution [Enulose] [facility]) Dicyclomine Hydrochloride 10 MG Oral Capsule ETHAN ([facility]) Dexamethasone 1 MG Oral Tablet ETHAN ([facility]) Clindamycin 300 MG Oral Capsule ETHAN ([facility]) Ciprofloxacin 250 MG Oral Tablet ETHAN ([facility]) Ciprofloxacin 3 MG/ML Ophthalmic Solution ETHAN ([facility]) Cephalexin 500 MG Oral Capsule ETHAN ([facility]) cefdinir 300 MG Oral Capsule ETHAN ([facility]) albuterol sulfate HFA 90 mcg/actuation a erosol inhaler INHALE 2 PUFFS BY MOUTH EVERY 4 HOURS NEEDED FOR WHEEZING OR SHORTNESS OF BREATH ETHAN ([facility]) Albuterol 0.83 MG/ML Inhalant Solution ETHAN ([facility]) Acetaminophen 500 MG Oral Tablet ETHAN ([facility]) 0.5 ML dulaglutide 3 MG/ML Auto-Injector [Trulicity] ETHAN ([facility]) 0.5 ML dulaglutide 1.5 MG/ML Auto-Injector [Trulicity] ETHAN ([facility]) Sulfamethoxazole 800 MG / Trimethoprim 160 MG Oral Tablet ETHAN ([facility]) silver sulfadiazine 10 MG/ML Topical Cream [SSD] [facility] Sertraline 50 MG Oral Tablet ETHAN ([facility]) Sertraline 25 MG Oral Tablet ETHAN ([facility]) Sertraline 100 MG Oral Tablet ETHAN ([facility]) pregabalin 50 MG Oral Capsule ETHAN ([facility]) sitagliptin 50 MG Oral Tablet [Januvia] [facility] Glyburide 5 MG Oral Tablet A THENA ([facility]) Simethicone 180 MG Oral Capsule ETHAN ([facility]) gabapentin 800 MG Oral Tablet ETHAN ([facility]) gabapentin 600 MG Oral Tablet ETHAN ([facility]) Fluoxetine 10 MG Oral Capsule ETHAN ([facility]) Lactulose 667 MG/ML Oral Solution [Enulose] [facility] Dicyclomine Hydrochloride 10 MG Oral Capsule ETHAN ([facility]) Dexamethasone 1 MG Oral Tablet ETHAN ([facility]) Clindamycin 300 MG Oral Capsule ETHAN ([facility]) Ciprofloxacin 250 MG Oral Tablet ETHAN ([facility]) Ciprofloxacin 3 MG/ML Ophthalmic Solution ETHAN ([facility]) cefdinir 300 MG Oral Capsule ETHAN ([facility]) albuterol sulfate HFA 90 mcg/actuation a erosol inhaler INHALE 2 PUFFS BY MOUTH EVERY 4 HOURS NEEDED FOR WHEEZING OR SHORTNESS OF BREATH ETHAN ([facility]) Albuterol 0.83 MG/ML Inhalant Solution [facility] Acetaminophen 500 MG Oral Tablet [facility] 0.5 ML dulaglutide 1.5 MG/ML Auto-Injector [Trulicity] [facility]) Sulfamethoxazole 800 MG / Trimethoprim 160 MG Oral Tablet ETHAN ([facility]) silver sulfadiazine 10 MG/ML Topical Cream [SSD] [facility]) Sertraline 50 MG Oral Tablet ETHAN ([facility]) Sertraline 25 MG Oral Tablet ETHAN ([facility]) Sertraline 100 MG Oral Tablet ETHAN ([facility]) Omeprazole 40 MG Delayed Release Oral Capsule ETHAN ([facility]) NITROFURANTOIN, MACROCRYSTALS 25 MG / Ni trofurantoin, Monohydrate 75 MG Oral Capsule ETHAN ([facility]) Metronidazole 500 MG Oral Tablet ETHAN ([facility]) Metronidazole 0.0075 MG/MG Vaginal Gel ETHAN ([facility]) Metoclopramide 10 MG Oral Tablet ETHAN ([facility]) meloxicam 15 MG Oral Tablet ETHAN ([facility]) Lisinopril 5 MG Oral Tablet ETHAN ([facility]) Levofloxacin 250 MG Oral Tablet ETHAN ([facility]) Simethicone 180 MG Oral Capsule ETHAN ([facility]) gabapentin 800 MG Oral Tablet ETHAN ([facility]) gabapentin 600 MG Oral Tablet ETHAN ([facility]) Fluoxetine 10 MG Oral Capsule ETHAN ([facility]) Lactulose 667 MG/ML Oral Solution [Enulose] [facility]) Dicyclomine Hydrochloride 10 MG Oral Capsule ETHAN ([facility]) Ciprofloxacin 250 MG Oral Tablet ETHAN ([facility]) Ciprofloxacin 3 MG/ML Ophthalmic Solution ERIE ([facility]) cefdinir 300 MG Oral Capsule ETHAN ([facility]) albuterol sulfate HFA 90 mcg/actuation a erosol inhaler INHALE 2 PUFFS BY MOUTH EVERY 4 HOURS NEEDED FOR WHEEZING OR SHORTNESS OF BREATH ETHAN ([facility]) Albuterol 0.83 MG/ML Inhalant Solution ETHAN ([facility]) Acetaminophen 500 MG Oral Tablet ETHAN ([facility]) 0.5 ML dulaglutide 1.5 MG/ML Auto-Injector [Trulicity] ETHAN ([facility]) Sulfamethoxazole 800 MG / Trimethoprim 160 MG Oral Tablet ETHAN ([facility]) silver sulfadiazine 10 MG/ML Topical Cream [SSD] ETHAN ([facility]) Sertraline 50 MG Oral Tablet ETHAN ([facility]) Sertraline 25 MG Oral Tablet ETHAN ([facility]) Sertraline 100 MG Oral Tablet ETHAN ([facility]) Omeprazole 40 MG Delayed Release Oral Capsule ETHAN ([facility]) NITROFURANTOIN, MACROCRYSTALS 25 MG / Ni trofurantoin, Monohydrate 75 MG Oral Capsule ETHAN ([facility]) Metronidazole 500 MG Oral Tablet ETHAN ([facility]) Metronidazole 0.0075 MG/MG Vaginal Gel ETHAN ([facility]) Metoclopramide 10 MG Oral Tablet ETHAN ([facility]) meloxicam 15 MG Oral Tablet ETHAN ([facility]) Lisinopril 5 MG Oral Tablet ETHAN ([facility]) Levofloxacin 250 MG Oral Tablet ETHAN ([facility]) Simethicone 180 MG Oral Capsule ETHAN ([facility]) gabapentin 800 MG Oral Tablet ETHAN ([facility]) gabapentin 600 MG Oral Tablet ETHAN ([facility]) Fluoxetine 10 MG Oral Capsule ETHAN ([facility]) ferrous sulfate 325 MG Oral Tablet ETHAN ([facility]) Lactulose 667 MG/ML Oral Solution [Enulose] [facility]) Dicyclomine Hydrochloride 10 MG Oral Capsule ETHAN ([facility]) Ciprofloxacin 250 MG Oral Tablet ERIE ([facility]) Ciprofloxacin 3 MG/ML Ophthalmic Solution ERIE ([facility]) cefdinir 300 MG Oral Capsule ETHAN ([facility]) albuterol sulfate HFA 90 mcg/actuation a erosol inhaler INHALE 2 PUFFS BY MOUTH EVERY 4 HOURS NEEDED FOR WHEEZING OR SHORTNESS OF BREATH ETHAN ([facility]) Albuterol 0.83 MG/ML Inhalant Solution [facility]) Acetaminophen 500 MG Oral Tablet ERIE ([facility]) 0.5 ML dulaglutide 1.5 MG/ML Auto-Injector [Trulicity] [facility] Sulfamethoxazole 800 MG / Trimethoprim 160 MG Oral Tablet ETHAN ([facility]) silver sulfadiazine 10 MG/ML Topical Cream [SSD] [facility]) Sertraline 50 MG Oral Tablet ETHAN ([facility]) Sertraline 25 MG Oral Tablet [facility] Sertraline 100 MG Oral Tablet [facility] Omeprazole 40 MG Delayed Release Oral Capsule ETHAN ([facility]) NITROFURANTOIN, MACROCRYSTALS 25 MG / Ni trofurantoin, Monohydrate 75 MG Oral Capsule ETHAN ([facility]) Metronidazole 500 MG Oral Tablet ETHAN ([facility]) Metronidazole 0.0075 MG/MG Vaginal Gel ETHAN ([facility]) Metoclopramide 10 MG Oral Tablet ETHAN ([facility]) meloxicam 15 MG Oral Tablet ETHAN ([facility]) Lisinopril 5 MG Oral Tablet ETHAN ([facility]) Levofloxacin 250 MG Oral Tablet ETHAN ([facility]) Simethicone 180 MG Oral Capsule ETHAN ([facility]) gabapentin 800 MG Oral Tablet ETHAN ([facility]) gabapentin 600 MG Oral Tablet [facility] Fluoxetine 10 MG Oral Capsule [facility] ferrous sulfate 325 MG Oral Tablet [facility]) Lactulose 667 MG/ML Oral Solution [Enulose] [facility]) Dicyclomine Hydrochloride 10 MG Oral Capsule [facility]) Ciprofloxacin 250 MG Oral Tablet [facility]) Ciprofloxacin 3 MG/ML Ophthalmic Solution [facility]) cefdinir 300 MG Oral Capsule [facility] albuterol sulfate HFA 90 mcg/actuation a erosol inhaler INHALE 2 PUFFS BY MOUTH EVERY 4 HOURS NEEDED FOR WHEEZING OR SHORTNESS OF BREATH [facility]) Albuterol 0.83 MG/ML Inhalant Solution [facility]) Acetaminophen 500 MG Oral Tablet [facility]) 0.5 ML dulaglutide 1.5 MG/ML Auto-Injector [Trulicity] [facility] Sulfamethoxazole 800 MG / Trimethoprim 160 MG Oral Tablet [facility] silver sulfadiazine 10 MG/ML Topical Cream [SSD] [facility]) Sertraline 50 MG Oral Tablet [facility] Sertraline 25 MG Oral Tablet [facility] Sertraline 100 MG Oral Tablet [facility] Omeprazole 40 MG Delayed Release Oral Capsule [facility] NITROFURANTOIN, MACROCRYSTALS 25 MG / Ni trofurantoin, Monohydrate 75 MG Oral Capsule ETHAN ([facility]) Metronidazole 500 MG Oral Tablet ETHAN ([facility]) Metronidazole 0.0075 MG/MG Vaginal Gel ETHAN ([facility]) Metoclopramide 10 MG Oral Tablet ETHAN ([facility]) meloxicam 15 MG Oral Tablet ETHAN ([facility] Lisinopril 5 MG Oral Tablet ETHAN ([facility]) Levofloxacin 250 MG Oral Tablet ETHAN ([facility]) Simethicone 180 MG Oral Capsule ETHAN ([facility]) gabapentin 800 MG Oral Tablet ETHAN ([facility]) gabapentin 600 MG Oral Tablet ETHAN ([facility]) Fluoxetine 10 MG Oral Capsule ETHAN ([facility]) ferrous sulfate 325 MG Oral Tablet ETHAN ([facility]) Lactulose 667 MG/ML Oral Solution [Enulose] ETHAN ([facility]) Dicyclomine Hydrochloride 10 MG Oral Capsule ETHAN ([facility]) Ciprofloxacin 250 MG Oral Tablet ETHAN ([facility]) Ciprofloxacin 3 MG/ML Ophthalmic Solution ETHAN ([facility]) cefdinir 300 MG Oral Capsule ETHAN ([facility]) albuterol sulfate HFA 90 mcg/actuation a erosol inhaler INHALE 2 PUFFS BY MOUTH EVERY 4 HOURS NEEDED FOR WHEEZING OR SHORTNESS OF BREATH ETHAN ([facility]) Albuterol 0.83 MG/ML Inhalant Solution ETHAN ([facility]) Acetaminophen 500 MG Oral Tablet ETHAN ([facility]) gabapentin 600 MG Oral Tablet ETHAN ([facility]) Fluoxetine 10 MG Oral Capsule ETHAN ([facility]) Omeprazole 40 MG Delayed Release Oral Capsule ETHAN ([facility]) NITROFURANTOIN, MACROCRYSTALS 25 MG / Ni trofurantoin, Monohydrate 75 MG Oral Capsule ETHAN ([facility]) Naproxen 500 MG Oral Tablet ETHAN ([facility]) Metronidazole 500 MG Oral Tablet ETHAN ([facility]) Metronidazole 0.0075 MG/MG Vaginal Gel ETHAN ([facility]) Metoclopramide 10 MG Oral Tablet ETHAN ([facility]) meloxicam 15 MG Oral Tablet ETHAN ([facility]) Lisinopril 5 MG Oral Tablet ETHAN ([facility]) Levofloxacin 250 MG Oral Tablet ETHAN ([facility]) Lactulose 667 MG/ML Oral Solution [Enulose] ETHAN ([facility]) Dicyclomine Hydrochloride 10 MG Oral Capsule ETHAN ([facility]) Ciprofloxacin 250 MG Oral Tablet ETHAN ([facility]) cefdinir 300 MG Oral Capsule ETHAN ([facility]) albuterol sulfate HFA 90 mcg/actuation a erosol inhaler INHALE 2 PUFFS BY MOUTH EVERY 4 HOURS NEEDED FOR WHEEZING OR SHORTNESS OF BREATH ETHAN ([facility]) Albuterol 0.83 MG/ML Inhalant Solution ETHAN ([facility]) 0.5 ML dulaglutide 1.5 MG/ML Auto-Injector [Trulicity] ETHAN ([facility]) Sertraline 50 MG Oral Tablet ETHAN ([facility]) Sertraline 25 MG Oral Tablet ETHAN ([facility]) Sertraline 100 MG Oral Tablet ETHAN ([facility]) Omeprazole 40 MG Delayed Release Oral Capsule ETHAN ([facility]) NITROFURANTOIN, MACROCRYSTALS 25 MG / Ni trofurantoin, Monohydrate 75 MG Oral Capsule ETHAN ([facility]) Metronidazole 500 MG Oral Tablet ETHAN ([facility]) Metronidazole 0.0075 MG/MG Vaginal Gel ETHAN ([facility]) Metoclopramide 10 MG Oral Tablet ETHAN ([facility]) meloxicam 15 MG Oral Tablet ETHAN ([facility]) Lisinopril 5 MG Oral Tablet ETHAN ([facility]) Levofloxacin 250 MG Oral Tablet ETHAN ([facility]) Simethicone 180 MG Oral Capsule ETHAN ([facility]) gabapentin 800 MG Oral Tablet ETHAN ([facility]) gabapentin 600 MG Oral Tablet ETHAN ([facility]) Fluoxetine 10 MG Oral Capsule ETHAN ([facility]) Lactulose 667 MG/ML Oral Solution [Enulose] ETHAN ([facility]) Dicyclomine Hydrochloride 10 MG Oral Capsule ETH[facility] ([facility]) Ciprofloxacin 250 MG Oral Tablet ETHAN ([facility]) cefdinir 300 MG Oral Capsule ETHAN ([facility]) albuterol sulfate HFA 90 mcg/actuation a erosol inhaler INHALE 2 PUFFS BY MOUTH EVERY 4 HOURS NEEDED FOR WHEEZING OR SHORTNESS OF BREATH ETHAN ([facility]) Albuterol 0.83 MG/ML Inhalant Solution ETHAN ([facility]) 0.5 ML dulaglutide 1.5 MG/ML Auto-Injector [Trulicity] ETHAN ([facility]) Sertraline 50 MG Oral Tablet ETHAN ([facility]) Sertraline 25 MG Oral Tablet ETHNA ([facility]) Sertraline 100 MG Oral Tablet ETHAN ([facility]) Omeprazole 40 MG Delayed Release Oral Capsule ERIE ([facility]) NITROFURANTOIN, MACROCRYSTALS 25 MG / Ni trofurantoin, Monohydrate 75 MG Oral Capsule ERIE ([facility]) Metronidazole 500 MG Oral Tablet ETHAN ([facility]) Metronidazole 0.0075 MG/MG Vaginal Gel ETHAN ([facility]) Metoclopramide 10 MG Oral Tablet ERIE ([facility]) meloxicam 15 MG Oral Tablet ERIE ([facility]) Lisinopril 5 MG Oral Tablet ERIE ([facility]) Levofloxacin 250 MG Oral Tablet ERIE ([facility]) [facility]one [facility] gabapentin 800 MG Oral Tablet ETH[facility] ([facility]) gabapentin 600 MG Oral Tablet ETHAN ([facility]) Fluoxetine 10 MG Oral Capsule [facility] ([facility]) Lactulose 667 MG/ML Oral [facility] Dicyclomine Hydrochloride 10 [facility] Ciprofloxacin [facility] cefdinir 300 MG Oral Capsule ETHAN ([facility]) albuterol sulfate HFA 90 mcg/actuation a erosol inhaler INHALE 2 PUFFS BY MOUTH EVERY 4 HOURS NEEDED FOR WHEEZING OR SHORTNESS OF BREATH [facility]AN ([facility]) Albuterol 0.83 MG/ML Inhalant Solution ETHAN ([facility]) 0.5 ML dulaglutide 1.5 MG/ML Auto-Injector [Trulicity] ETHAN ([facility]) Sertraline 50 MG Oral Tablet ETHAN ([facility]) Sertraline 25 MG Oral Tablet ETHAN ([facility]) Omeprazole 40 MG Delayed Release Oral Capsule ETHAN ([facility]) NITROFURANTOIN, MACROCRYSTALS 25 MG / Ni trofurantoin, Monohydrate 75 MG Oral Capsule ETHAN ([facility]) Metronidazole 500 MG Oral Tablet ETHAN ([facility]) Metronidazole 0.0075 MG/MG Vaginal Gel ETHAN ([facility]) meloxicam 15 MG Oral Tablet ETHAN ([facility]) Simethicone 180 MG Oral Capsule ETHAN ([facility]) gabapentin 600 MG Oral Tablet ETHAN ([facility]) Fluoxetine 10 MG Oral Capsule ETHAN ([facility]) Dicyclomine Hydrochloride 10 MG Oral Capsule ETHAN ([facility]) Ciprofloxacin 250 MG Oral Tablet ETHAN ([facility]) 0.5 ML dulaglutide 1.5 MG/ML Auto-Injector [Trulicity] ETHAN ([facility]) Sertraline 50 MG Oral Tablet ETHAN ([facility]) Sertraline 25 MG Oral Tablet ETHAN ([facility]) Sertraline 100 MG Oral Tablet ETHAN ([facility]) Omeprazole 40 MG Delayed Release Oral Capsule ETHAN ([facility]) NITROFURANTOIN, MACROCRYSTALS 25 MG / Ni trofurantoin, Monohydrate 75 MG Oral Capsule ETHAN ([facility]) Metronidazole 500 MG Oral Tablet ETHAN ([facility]) Metronidazole 0.0075 MG/MG Vaginal Gel ETHAN ([facility]) Metoclopramide 10 MG Oral Tablet ETHAN ([facility]) meloxicam 15 MG Oral Tablet ETHAN ([facility]) Lisinopril 5 MG Oral Tablet ETHAN ([facility]) Levofloxacin 250 MG Oral Tablet ETHAN ([facility]) Simethicone 180 MG Oral Capsule ETHAN ([facility]) gabapentin 800 MG Oral Tablet ETHAN ([facility]) 0.5 ML dulaglutide 1.5 MG/ML Auto-Injector [Trulicity] ETHAN ([facility]) Sertraline 50 MG Oral Tablet ETHAN ([facility]) Sertraline 25 MG Oral Tablet ETHAN ([facility]) Omeprazole 40 MG Delayed Release Oral Capsule ETHAN ([facility]) NITROFURANTOIN, MACROCRYSTALS 25 MG / Ni trofurantoin, Monohydrate 75 MG Oral Capsule ETHAN ([facility]) Metronidazole 500 MG Oral Tablet ETHAN ([facility]) Metronidazole 0.0075 MG/MG Vaginal Gel ETHAN ([facility]) meloxicam 15 MG Oral Tablet ETHAN ([facility]) Simethicone 180 MG Oral Capsule ETHAN ([facility]) gabapentin 600 MG Oral Tablet ETHAN ([facility]) Fluoxetine 10 MG Oral Capsule ETHAN ([facility]) Dicyclomine Hydrochloride 10 MG Oral Capsule ETHAN ([facility]) Ciprofloxacin 250 MG Oral Tablet ETHAN ([facility]) 0.5 ML dulaglutide 1.5 MG/ML Auto-Injector [Trulicity] ETHAN ([facility]) Sertraline 50 MG Oral Tablet ETHAN ([facility]) Sertraline 25 MG Oral Tablet ETHAN ([facility]) Omeprazole 40 MG Delayed Release Oral Capsule ETHAN ([facility]) NITROFURANTOIN, MACROCRYSTALS 25 MG / Ni trofurantoin, Monohydrate 75 MG Oral Capsule ETHAN ([facility]) Metronidazole 500 MG Oral Tablet ETHAN ([facility]) Metronidazole 0.0075 MG/MG Vaginal Gel ETHAN ([facility]) meloxicam 15 MG Oral Tablet ETHAN ([facility]) Lisinopril 5 MG Oral Tablet ETHAN ([facility]) Simethicone 180 MG Oral Capsule ETHAN ([facility]) gabapentin 600 MG Oral Tablet ETHAN ([facility]) Fluoxetine 10 MG Oral Capsule ETHAN ([facility]) Dicyclomine Hydrochloride 10 MG Oral Capsule ETHAN ([facility]) Ciprofloxacin 250 MG Oral Tablet ETHAN ([facility]) 0.5 ML dulaglutide 1.5 MG/ML Auto-Injector [Trulicity] ETHAN ([facility]) Sertraline 50 MG Oral Tablet ETHAN ([facility]) Sertraline 25 MG Oral Tablet ETHAN ([facility]) Omeprazole 40 MG Delayed Release Oral Capsule ETHAN ([facility]) NITROFURANTOIN, MACROCRYSTALS 25 MG / Ni trofurantoin, Monohydrate 75 MG Oral Capsule ETHAN ([facility]) Metronidazole 500 MG Oral Tablet ETHAN ([facility]) Metronidazole 0.0075 MG/MG Vaginal Gel ETHAN ([facility]) meloxicam 15 MG Oral Tablet ETHAN ([facility]) Lisinopril 5 MG Oral Tablet ETHAN ([facility]) Simethicone 180 MG Oral Capsule ETHAN ([facility]) gabapentin 600 MG Oral Tablet ETHAN ([facility]) Fluoxetine 10 MG Oral Capsule ETHAN ([facility]) Dicyclomine Hydrochloride 10 MG Oral Capsule ETHAN ([facility]) Ciprofloxacin 250 MG Oral Tablet ETHAN ([facility]) 0.5 ML dulaglutide 1.5 MG/ML Auto-Injector [Trulicity] ETHAN ([facility]) Sertraline 50 MG Oral Tablet ETHAN ([facility]) Sertraline 25 MG Oral Tablet ETHAN ([facility]) Sertraline 100 MG Oral Tablet ETHAN ([facility]) Omeprazole 40 MG Delayed Release Oral Capsule ETHAN ([facility]) NITROFURANTOIN, MACROCRYSTALS 25 MG / Ni trofurantoin, Monohydrate 75 MG Oral Capsule ETHAN ([facility]) Metronidazole 500 MG Oral Tablet ETHAN ([facility]) Metronidazole 0.0075 MG/MG Vaginal Gel ETHAN ([facility]) meloxicam 15 MG Oral Tablet ETHAN ([facility]) Lisinopril 5 MG Oral Tablet ETHAN ([facility]) Simethicone 180 MG Oral Capsule ETHAN ([facility]) gabapentin 600 MG Oral Tablet ETHAN ([facility]) Fluoxetine 10 MG Oral Capsule ETHAN ([facility]) Dicyclomine Hydrochloride 10 MG Oral Capsule ETHAN ([facility]) Ciprofloxacin 250 MG Oral Tablet ETHAN ([facility])
[2021-01-09] MEDS ORDERED: DIFL200T PO (23:33)
[2021-01-09] MEDS ORDERED: METR-265 PO (23:33)
[2021-01-09 23:49] VITALS: BP 151/74
[2021-01-10] MEDS ORDERED: metroNIDAZOLE (FLAGYL) 500MG TABLET PO ONE
[2021-01-10 00:02] LABS: GC DNA AMPLIFICATION NEGATIVE (NEGATIVE)
== END 2021-01-10 00:05 | disposition home or self-care (01) ==
LOC: M ED 19:08
DX: B37.3 Candidiasis of vulva and vagina (principal); N76.0 Acute vaginitis; E11.9 Type 2 diabetes mellitus without complications; I10 Essential (primary) hypertension; Z87.59 Personal history of other complications of pregnancy, childbirth and the puerperium; Z87.448 Personal history of other diseases of urinary system; Z79.84 Long term (current) use of oral hypoglycemic drugs; Z79.899 Other long term (current) drug therapy; Z88.0 Allergy status to penicillin

== ENCOUNTER 2021-01-18 17:26 | Emergency (ER) | payer OTHER ==
[~2021-01-18] VITALS: Ht 172.7 cm; Wt 145.3 kg
[~2021-01-18 17:26] MED LIST changes: +DIFL200T PO; +METR-265 PO
[2021-01-18] MEDS ORDERED: PREG100C (17:40)
[2021-01-18] MEDS ORDERED: ESCITALOPRAM (17:40)
[2021-01-18 19:05] LABS: BASO # 0.1 10^3/uL (0.0-0.2); BASO % 0.6 % (0.0-1.0); EOS # 0.1 10^3/uL (0.0-0.5); EOS % 1.5 % (0.0-3.0); HEMOGLOBIN 13.6 g/dl (12.0-15.5); LYMPH # 2.5 10^3/uL (1.5-5.0); LYMPH % 27.6 % (24.0-44.0); MEAN CORPUSCULAR HEMOGLOBIN 30.3 pg (27.0-33.0); MEAN CORPUSCULAR HGB CONC 33.2 g/dl (32.0-36.5); MEAN CORPUSCULAR VOLUME 91.3 fl (80.0-96.0); MONO # 0.4 10^3/uL (0.0-0.8); MONO % 4.8 % (2.0-8.0); NEUTROPHILS # 5.9 10^3/uL (1.5-8.5); NEUTROPHILS % 65.2 % (36.0-66.0); PLATELET COUNT, AUTOMATED 358 10^3/uL (150-450); RED BLOOD COUNT 4.49 10^6/uL (4.00-5.40); WHITE BLOOD COUNT 9.1 10^3/uL (4.0-10.0)
[2021-01-18 19:07] LABS: ALBUMIN 3.5 GM/DL (3.2-5.2); ALT/SGPT 22 U/L (12-78); BILIRUBIN,DIRECT < 0.1 MG/DL (0.0-0.2); BILIRUBIN,TOTAL 0.1 MG/DL (0.2-1.0); BLOOD UREA NITROGEN 17 MG/DL (7-18); CALCIUM LEVEL 9.2 MG/DL (8.5-10.1); CARBON DIOXIDE LEVEL 28 MEQ/L (21-32); CHLORIDE LEVEL 100 MEQ/L (98-107); CREATININE FOR GFR 0.82 MG/DL (0.55-1.30); GLOMERULAR FILTRATION RATE > 60.0 (>58); GLUCOSE, FASTING 305 MG/DL (70-100); LIPASE 187 U/L (73-393); POTASSIUM SERUM 4.2 MEQ/L (3.5-5.1); SODIUM LEVEL 136 MEQ/L (136-145)
--- OUTSIDE RECORDS SUMMARY | 2021-01-19 00:18 | CCD ---
Author Author [facility] Organization [facility] Address Unknown Phone Unavailable Support Name Relationship Address Phone SSV* Next Of Kin [address] [place] [address] [facility] Next Of Kin [address] [address] Kentrell Huntley Next Of Kin [address] [place] [address] Danni Hazel Next Of Kin [address] [place] [address] Melia Soares Next Of Kin [address] [place], [place] [phone] SAMSCLUDileep Next Of Kin [address] [place] [address] REANNA VALDEZ Next Of Kin [address] [place] [address] Doris Cullen MD Next Of Kin [address] [place], [place] [phone] [facility] Next Of Kin [address] [place] [address] SELF EMPLOYEE Next Of Kin [address] [place] [address] [place] [employer] [place] Next Of Kin [place] [phone] [place] [address] PRICE[employer] Next Of Kin [address] [place] [address] CHLOE Next Of Kin [address] [place] [phone] [place]UE [place] [address] UE Next Of Kin Unknown Unavailable SUPERDUPER Next Of Kin [address] [place] [address] [place] [address] JR* [place] [address] [facility] [place] [address] YAIMA SKYLAR Next Of Kin [address] [place] [address] HAMILTON STAPLETON Next [facility] Kin [facility] [place] [address] REANNA VALDEZ ECON [address] [place] [address] Unavailable Care Team Providers Care Furnace Repairer Helper Name Role Phone WELLER, SERAFIN KENTRELL RPA-C [...] Unavailable WELLER, SERAFIN KENTRELL RPA-C Unavailable Unavailable EWLLER, SERAFIN KENTRELL RPA-C Unavailable Unavailable WELLER, SERAFIN KENTRELL RPA-C Unavailable Unavailable WELLER, SERAFIN KENTRELL RPA-C Unavailable Unavailable WELLER, SERAFIN KENTRELL RPA-C Unavailable Unavailable WELLER, SERAFIN KENTRELL RPA-C Unavailable Unavailable WELLER, SERAFIN KENTRELL RPA-C Unavailable Unavailable WELLER, SERAFIN KENTRELL RPA-C Unavailable Unavailable WELLER, SERAFIN KENTRELL RPA-C Unavailable Unavailable WELLER, SERAFIN KENTRELL RPA-C Unavailable Unavailable WELLER, SERAFIN KENTRELL RPA-C Unavailable Unavailable EWLLER, SERAFIN KENTRELL RPA-C Unavailable Unavailable WELLER, SERAFIN [...] Unavailable Unavailable CHADWICK L YAZMIN Unavailable Unavailable SALLY AMANDA Unavailable Unavailable MG, MELVIN PA Unavailable Unavailable [...] Unavailable Scordo, M Fatimah PA Unavailable Unavailable Stover, Treichlers Sarah Unavailable Unavailable Stover, Treichlers Sarah Unavailable Unavailable Stover, Treichlers Sarah Unavailable Unavailable Stover, Treichlers Sarah Unavailable Unavailable Stover, Treichlers Sarah Unavailable Unavailable Stover, Treichlers Sarah Unavailable Unavailable Stover, Treichlers Sarah Unavailable Unavailable Stover, Treichlers Sarah Unavailable Unavailable Stover, Treichlers Sarah Unavailable Unavailable Stover, Treichlers Sarah Unavailable Unavailable Stover, Treichlers Sarah Unavailable Unavailable Stover, Treichlers Sarah Unavailable Unavailable Stover, Treichlers Sarah Unavailable Unavailable GREGORIO, M AYO PA [...] AYO PA Unavailable Unavailable GREGORIO, M AYO OSUNA Unavailable Unavailable GREGORIO, Messi OSUNA Unavailable Unavailable GREGORIO, Messi OSUNA Unavailable Unavailable GREGORIO, Messi ROLLINS PA Unavailable Unavailable GREGORIO, Messi OSUNA Unavailable Unavailable GREGORIO, Messi OSUNA Unavailable Unavailable GREGORIO, Messi OSUNA Unavailable Unavailable WELLER, SERAFIN KENTRELL RPA-C Unavailable [...] Unavailable WELLER, SERAFIN KENTRELL RPA-C Unavailable Unavailable Josefina FRANK Unavailable Unavailable DANIEL, R RL Unavailable Unavailable [...] Sridevi PA Unavailable Unavailable Pupillo, Flaca Unavailable [phone] Elizabeth-Centner, Hilary Unavailable Unavailable Elizabeth-Centner, Hilary Unavailable [...] YAZMIN Unavailable Unavailable BUSTOS, YAZMIN Unavailable Unavailable SleZakia garsiatech Unavailable Unavailable SleArjun garsiajtech Unavailable Unavailable SleZakia garsiatech Unavailable Unavailable SleArjun garsiajtech Unavailable Unavailable SleArjun garsiajgalen MADSEN Unavailable Unavailable SlejaclynkaArjunjtech Unavailable Unavailable SleZakia garsiatech Unavailable Unavailable SleArjun garsiajtech Unavailable Unavailable Masoud Luo MD Unavailable Unavailable Zakia Luotech Unavailable Unavailable Masoud Luo MD Unavailable Unavailable Masoud Luo MD Unavailable Unavailable Arjun Luojtech Unavailable Unavailable Zakia Luotech Unavailable Unavailable Masoud Luo MD Unavailable Unavailable Masoud Luo MD Unavailable Unavailable Masoud Luo MD Unavailable Unavailable Masoud Luo MD Unavailable Unavailable Masoud Luo MD Unavailable Unavailable Arjun Luojtech Unavailable Unavailable Masoud Luo MD Unavailable Unavailable Masoud Luo MD Unavailable Unavailable Masoud Luo MD Unavailable Unavailable Masoud Luo MD Unavailable Unavailable Zakia Luotech Unavailable Unavailable Masoud Luo MD Unavailable Unavailable Masoud Luo MD Unavailable Unavailable Masoud Luo MD Unavailable Unavailable Masoud Luo MD Unavailable Unavailable Zakia Luotech Unavailable Unavailable Zakia Luotech Unavailable Unavailable Zakia Luotech Unavailable Unavailable Arjun Luojtech Unavailable Unavailable Masoud Luo MD Unavailable Unavailable Masoud Luo MD Unavailable Unavailable Masoud Luo MD Unavailable Unavailable Masoud Luo MD Unavailable Unavailable Arjun Luojtech Unavailable Unavailable Arjun Luojtech Unavailable Unavailable SleArjun garsiajtech Unavailable Unavailable Masoud Luo MD Unavailable Unavailable Masoud Luo MD Unavailable Unavailable SleMasoud garsia MD Unavailable Unavailable Masoud Luo MD Unavailable Unavailable Masoud Luo MD Unavailable Unavailable Masoud Luo MD Unavailable Unavailable Masoud Luo MD Unavailable Unavailable Masoud Luo MD Unavailable Unavailable Masoud Luo MD Unavailable Unavailable Masoud Luo MD Unavailable Unavailable Zakia Luotech Unavailable Unavailable Zakia Luotech Unavailable Unavailable Masoud Luo MD Unavailable Unavailable Masoud Luo MD Unavailable Unavailable Masoud Luo MD Unavailable Unavailable Zakia Luotech Unavailable Unavailable Zakia Luotech Unavailable Unavailable Zakia Luotech Unavailable Unavailable Zakia Luotech Unavailable Unavailable STROUD, G EDWARD RPA Unavailable [...] Unavailable STROUD, G EDWARD RPA Unavailable Unavailable STRUOD, G EDWARD RPA Unavailable Unavailable STROUD, G [...] YAZMIN Unavailable Unavailable BUSTOS, YAZMIN Unavailable Unavailable HORACIO, E JOSETTE MADSEN Unavailable [...] HORACIO, Stacia FINCH MD Unavailable Unavailable Messi Arevalo PA-C Unavailable Unavailable Messi Arevalo PA-C Unavailable Unavailable Messi Arevalo PA-C Unavailable Unavailable Messi ArevaloC Unavailable Unavailable Arevalo, [...] is protected by Article 27-F of the [place] State Public Health law. If you continue you may have access to information: Regarding HIV / AIDS; Provided by facilities licensed or operated by the [facility] Office of Mental Health; or Provided by the [facility] Office for People With Developmental Disabilities. If such information is present, then the following [facility] mandated warning applies: This information has been [...] law may result in a fine or retirement sentence or both. A general authorization for the release of medical or other information is NOT sufficient authorization for further disc losure. Allergies and Adverse Reactions Type Description Substance Reaction Status Data Source(s ) Allergy to substance Severe Trulicity Diarrhea ATHE NA ([facility]) Allergy to substance Severe Trulicity Diarrhea ATHE NA ([facility]) Propensity to adverse reactions PENICILLINS Penicillin [facility] Propensity to adverse reactions PENICILLINS Penicillins Ac tive [facility] Family History Family Member Name Family Member Gender Family Member Status Date o f Status Description Data Source(s) Unknown Male Problem MEDENT ([facility]) Encounters Encounter Providers Location Date Indications Data Source(s ) Outpatient Attender: JOSETTE LEONARD MD 02/22/2021 12:00 :00 AM [facility] Kentrell Weller RPA-C: [address], [place] [address], Ph. Attender: KENTRELL VALDOVINOSC [facility] Medical 11/19/2020 12:00:00 AM EDT ETH[facility] ([facility]) Kentrell Weller RPA-C: [address], [place] [address], Ph. Attender: KENTRELL VALDOVIONSC [facility] Medical 11/12/2020 12:00:00 AM EDT ETHAN ([facility]) Kentrell Weller RPA-C: [address], [place] [address], Ph. Attender: KENTRELL VALDOVINOSC [facility] Medical 11/12/2020 12:00:00 AM EDT ETHAN ([facility]) Outpatient Attender: Sridevi OSUNA 021 03:16:29 PM EDT - 11/01/2020 04:01:52 PM EDT [facility] ([facility] ) Outpatient Attender: MELVIN OSUNA 10/11/2020 12:00:0 0 AM EDT [facility] Outpatient Attender: Easton OSUNA-CAttender: ROXANNA ZAVALA MD 10/01/2020 02:49:57 PM EDT - 10/01/2020 03:52:48 PM EDT [facility] ([facility]) Kentrell Weller RPA-C: [address], [place] [address], Ph. Attender: KENTRELL ROSEN [facility] Medical 09/07/2020 12:00:00 AM EDT ETHAN ([facility]) Kentrell Weller RPA-C: [address], [place] [address], Ph. Attender: KENTRELL ROSEN [facility] Medical 09/07/2020 12:00:00 AM EDT ETHAN ([facility]) Kentrell Weller RPA-C: [address], [place] [address], Ph. Attender: KENTRELL VALDOVINOSC [facility] Medical 09/07/2020 12:00:00 AM EDT [facility] ([facility]) Outpatient Attender: Masoud Penaerrer: YAZMIN ARRINGTON 08/26/2020 12:00:00 AM EDT - 08/30/2020 09:13:46 AM EDT [facility] OFFICE OUTPATIENT VISIT 15 MINUTES Attender: JAIME OSUNA Phys ical Therapy 07/22/2020 09:40:00 AM EDT MEDENT ([facility]) Outpatient Attender: JUJUEric FRANK 07/20/2020 12:00:00 AM EDT [facility] Flaca Rosario, [address]FFIC COURT REFEREE: [address], [place] [address], Ph. Attender: Flaca Rosario [facility] Medical 07/19/2020 12:00:00 AM EDT ETHAN ([facility]) Flaca Rosario, TRAFFIC COURT REFEREE: [address], [place] [address], Ph. Attender: Flaca Rosario [facility] Medical 07/19/2020 12:00:00 AM EDT [facility] ([facility]) Flaca Rosario [address] REFEREE: [address], [place] [address], Ph. Attender: Flaca Rosario [facility] Medical 07/19/2020 12:00:00 AM EDT [facility] ([facility]) Flaca Rosario, TRAFFIC COURT REFEREE: [address], [place] [address], Ph. Attender: Flaca Rosario [facility] Medical 07/19/2020 12:00:00 AM EDT [facility] ([facility]) Outpatient Referrer: AMANDA ZAVALA 07/08/2020 12:00:00 AM ED T [facility] Outpatient Attender: JOSETTE LEONARD MDAttender: RL Rocharejosefina: JOSETTE LEONARD MD 06/30/2020 12:00:00 AM EDT - 07/01/2020 12:00:00 AM EDT Other specified disorders of adrenal gland [facility] Other specified disorders of adrenal gla nd Outpatient Attender: JOSETTE LEONARD MDAttender: RL Olverar: JOSETTE LEONARD MD 06/29/2020 12:00:00 AM EDT - 06/30/2020 12:00:00 AM EDT Type 2 diabetes mellitus with other specified complication [facility] Type 2 diabetes mellitus with other spec ified complication Outpatient Attender: JOSETTE LEONARD MDAttender: RL Solanoferrer: JOSETTE LEONARD MD 06/28/2020 12:00:00 AM EDT - 06/29/2020 12:00:00 AM EDT Type 2 diabetes mellitus with other specified complication [facility] Type 2 diabetes mellitus with other spec ified complication Outpatient Attender: JOSETTE LEONARD MDReferrer: YAZMIN BUSTOS [id number] 06/25/2020 12:00:00 AM EDT - 06/25/2020 04:18:58 PM EDT Nontoxic single thyroid nodule [facility] Nontoxic single thyroid nodule Yazmin Bustos RPA-C: [address], [place] [address], Ph. Attender: YAZMIN BUSTOS [facility] Medical 06/23/2020 12:00:00 AM EDT [facility]) ARUNA AlcarazC: [address], [place] [address], Ph. Attender: YAZMIN BUSTOS [facility] Medical 06/23/2020 12:00:00 AM EDT BACK[facility] ([facility]) Yazmin Bustos RPA-C: [address], [place] [address], Ph. Attender: YAZMIN BUSTOS [facility] 06/23/2020 12:00:00 AM EDT [facility]) Yazmin Bustos RPA-C: [address], [place] [address], Ph. Attender: YAZMIN BUSTOS [facility] Medical 06/23/2020 12:00:00 AM EDT ETHAN ([facility]) Yazmin Bustos RPA-C: [address], [place] [address], Ph. Attender: YAZMIN BUSTOS [facility] Medical 06/23/2020 12:00:00 AM EDT ETHAN ([facility]) Yazmin Bustos RPA-C: [address], [place] [address], Ph. Attender: YAZMIN BUSTOS [facility] Medical 06/21/2020 12:00:00 AM EDT ETHAN ([facility]) ARUNA AlcarazC: [address], [place] [address], Ph. Attender: YAZMIN BUSTOS [facility] Medical 06/21/2020 12:00:00 AM EDT ETHAN ([facility]) ARUNA AlcarazC: [address], [place] [address], Ph. Attender: YAZMIN BUSTOS [facility] Medical 06/21/2020 12:00:00 AM EDT BACK[facility] ([facility]) Yazmin Bustos RPA-C: [address], [place] [address], Ph. Attender: YAZMIN BUSTOS [facility] Medical 06/21/2020 12:00:00 AM EDT ETHAN ([facility]) Yazmin Bustos, RPA-C: [address], [place] [address], Ph. Attender: YAZMIN JULI [facility] Medical 06/21/2020 12:00:00 AM EDT ETHAN ([facility]) Yazminhung Bustos RPA-C: [address], [place] [address], Ph. Attender: YAZMINHUNG BUSTOS [facility] Medical 06/21/2020 12:00:00 AM EDT ETHAN ([facility]) Yazmin Bustos RPA-C: [address], [place] [address], Ph. Attender: YAZMINHUNG BUSTOS [facility] Medical 06/21/2020 12:00:00 AM EDT ETHAN ([facility]) Tati Scott MD: [address], [place] [address], Ph. Attender: Tati Scott [facility] Medical 06/15/2020 12:00:00 AM EDT ETHAN ([facility]) Tati Scott MD: [address], [place] [address], Ph. Attender: Tati Scott [facility] Medical 06/15/2020 12:00:00 AM EDT ETHAN ([facility]) Tati Scott MD: [address], [place] [address], Ph. Attender: Tati Scott [facility] Medical 06/15/2020 12:00:00 AM EDT ETHAN ([facility]) Tati Scott MD: [address], [place] [address], Ph. Attender: Tati Scott [facility] Medical 06/15/2020 12:00:00 AM EDT ETHAN ([facility]) Tati Scott MD: [address], [place] [address], Ph. Attender: Tati Scott [facility] Medical 06/15/2020 12:00:00 AM EDT ETHAN ([facility]) Tati Scott MD: [address], [place] [address], Ph. Attender: Tati Scott [facility] Medical 06/15/2020 12:00:00 AM EDT ETHAN ([facility]) Tati Scott MD: [address], [place] [address], Ph. Attender: Tati Scott [facility] Medical 06/15/2020 12:00:00 AM EDT ETHAN ([facility]) Tati Scott MD: [address], [place] [address], Ph. Attender: Tati Scott [facility] Medical 06/15/2020 12:00:00 AM EDT ETHAN ([facility]) LUZ ELENA León-C: [address] [place] [address], [place] [address], Ph. Attender: Sarah Stover [facility] Medical 06/09/2020 12:00:00 AM EDT ETHAN ([facility]) GABRIEL LeónC: [address], [place] [address], Ph. Attender: Sarah Stover [facility] Medical 06/09/2020 12:00:00 AM EDT ETHAN ([facility]) GABRIEL LeónC: [address], [place] [address], Ph. Attender: Sarah Stover [facility] Medical 06/09/2020 12:00:00 AM EDT ETHAN ([facility]) GABRIEL LeónC: [address], [place] [address], Ph. Attender: Sarah Stover [facility] Medical 06/09/2020 12:00:00 AM EDT ETHAN ([facility]) GABRIEL LeónC: [address], [place] [address], Ph. Attender: Sarah Stover [facility] Medical 06/09/2020 12:00:00 AM EDT BACKUS ([facility]) GABRIEL LeónC: [address], [place] [address], Ph. Attender: Sarah Stover [facility] Medical 06/09/2020 12:00:00 AM EDT ETHAN ([facility]) GABRIEL LeónC: [address], [place] [address], Ph. Attender: Sarah Stover [facility] Medical 06/09/2020 12:00:00 AM EDT ETHAN ([facility]) GABRIEL LeónC: [address], [place] [address], Ph. Attender: Sarah Stover [facility] Medical 06/09/2020 12:00:00 AM EDT ETHAN ([facility]) LLOYD LeónP-C: [address] [place] [address], Ph. Attender: Sarah Stover [facility] Medical 06/09/2020 12:00:00 AM EDT ETHAN ([facility]) Outpatient Attender: KEYONA STROUD RPA 05/25 10:58:37 AM EDT - 05/25/2020 11:35:53 AM EDT [facility] ([facility] ) Yazmin Bsutos RPA-C: [address], [place] [address], Ph. Attender: YAZMIN BUSTOS [facility] Medical 05/14/2020 12:00:00 AM EST ETHAN ([facility]) Yazmin Bustos RPA-C: [address], [place] [address], Ph. Attender: YAZMIN BUSTOS [facility] Medical 05/14/2020 12:00:00 AM EST ETHAN ([facility]) Yazmin Bustos RPA-C: [address], [place] [address], Ph. Attender: YAZMIN BUSTOS [facility] Medical 05/14/2020 12:00:00 AM EST ETHAN ([facility]) Yazmin Bustos RPA-C: [address], [place] [address], Ph. Attender: YAZMIN BUSTOS [facility] Medical 05/14/2020 12:00:00 AM EST ETHAN ([facility]) Yazmin Bustos RPA-C: [address], [address], [place] [address], Ph. Attender: YAZMIN BUSTOS [facility] Medical 05/14/2020 12:00:00 AM EST ETHAN ([facility]) ARUNA AlcarazC: [address], [place] [address], Ph. Attender: YAZMIN BUSTOS [facility] Medical 05/14/2020 12:00:00 AM EST ETHAN ([facility]) ARUNA AlcarazC: [address], [place] [address], Ph. Attender: YAZMIN BUSTOS [facility] Medical 05/14/2020 12:00:00 AM EST ETHAN ([facility]) ARUAN AlcarazC: [address], [place] [address], Ph. Attender: YAZMIN BUSTOS [facility] Medical 05/14/2020 12:00:00 AM EST ETHAN ([facility]) ARUNA AlcarazC: [address], [place] [address], Ph. Attender: YAZMIN BUSTOS [facility] Medical 05/14/2020 12:00:00 AM EST ETHAN ([facility]) ARUNA AlcarazC: [address], [place] [address], Ph. Attender: YAZMIN JUÁREZBINS [facility] Medical 05/14/2020 12:00:00 AM EST ETHAN ([facility]) Hilary Johnson RPA-C: [address], [place] [address], Ph. Attender: Hilary Garces [facility] Medical 05/12/2020 12:00:00 AM EST [facility] ([facility]) Hilary Johnson RPA-C: [address], [place] [address], Ph. Attender: Hilary Garces [facility] Medical 05/12/2020 12:00:00 AM EST ETHAN ([facility]) ARUNA AgeeC: [address], [place] [address], Ph. Attender: Hilary Garces [facility] Medical 05/12/2020 12:00:00 AM EST [facility] ([facility]) ARUNA AgeeC: [address], [place] [address], Ph. Attender: Hilary Garces [facility] Medical 05/12/2020 12:00:00 AM EST [facility] ([facility]) ARUNA AgeeC: [address], [place] [address], Ph. Attender: Hilary Garces [facility] Medical 05/12/2020 12:00:00 AM EST [facility] ([facility]) Hilary Johnson RPA-C: [address], [place] [address], Ph. Att[facility]: [facility] Medical 05/12/2020 12:00:00 AM EST [facility] ([facility]) Hilary Johnson RPA-C: [address], [place] [address], Ph. [facility] 05/12/2020 12:00:00 AM EST [facility] ([facility]) Hilary Johnson RPA-C: [address], [place] [address], Ph. Att[facility]: [facility] Medical 05/12/2020 12:00:00 AM EST [facility] ([facility]) Hilary Johnson RPA-C: [address], [place] [address], Ph. Attender: [facility] Medical 05/12/2020 12:00:00 AM EST [facility] ([facility]) Hilary Johnson RPA-C: [address], [place] [address], Ph. Attender: Hilary Garces [facility] Medical 05/12/2020 12:00:00 AM EST [facility] ([facility]) Hilary Johnson RPA-C: [address], [place] [address], Ph. [facility]: [facility] 05/12/2020 12:00:00 AM EST ETHAN ([facility]) Outpatient Attender: AYO OSUNA Physical Therapy 04/12 09:15:00 AM EST [facility] ([facility] ) FOREST GrovesC: [address], [place] [address], Ph. Attender: Fatimah OSUNA [facility] 04/29/2020 12:00:00 AM EST [facility] ([facility]) Fatimah Cavazos PA-C: [address], [place] [address], Ph. Attender: Fatimah OSUNA [facility] 04/29/2020 12:00:00 AM EST [facility] ([facility]) Fatimah Cavazos PA-C: [address], [place] [address], Ph. Attender: Fatimah OSUNA [facility] 04/29/2020 12:00:00 AM EST [facility] ([facility]) Fatimah Cavazos PA-C: [address], [place] [address], Ph. Attender: Fatimah OSUNA [facility] 04/29/2020 12:00:00 AM EST [facility] ([facility]) Fatimah Cavazos PA-C: [address], [place] [address], Ph. Attender: Fatimah OSUNA [facility] 04/29/2020 12:00:00 AM EST [facility] ([facility]) Fatimah Cavazos PA-C: [address], [place] [address], Ph. Attender: Fatimah OSUNA [facility] 04/29/2020 12:00:00 AM EST [facility] ([facility]) Fatimah Cavazos PA-C: [address], [place] [address], Ph. Attender: Fatimah OSUNA [facility] 04/29/2020 12:00:00 AM EST [facility] ([facility]) Fatimah Cavazos PA-C: [address] [address], [place] [address], Ph. Attender: Fatimah OSUNA [facility] 04/29/2020 12:00:00 AM EST ETHAN ([facility]) Fatimah Cavazos PA-C: [address], [place] [address], Ph. Attender: Fatimah OSUNA [facility] 04/29/2020 12:00:00 AM EST ETHAN ([facility]) Fatimah Cavazos PA-C: [address], [place] [address], Ph. Attender: Fatimah OSUNA [facility] 04/29/2020 12:00:00 AM EST ETHAN ([facility]) Fatimah Cavazos PA-C: [address], [place] [address], Ph. Attender: Fatimah OSUNA [facility] 04/29/2020 12:00:00 AM EST ETHAN ([facility]) Fatimah Cavazos PA-C: [address], [place] [address], Ph. Attender: Fatimah OSUNA [facility] 04/29/2020 12:00:00 AM EST ETHAN ([facility]) Flaca Rosario, TRAFFIC COURT REFEREE: [address], [place] [address], Ph. Attender: Flaca Rosario [facility] 03/29/2020 12:00:00 AM EST ETHAN ([facility]) Flaca Rosario, TRAFFIC COURT REFEREE: [address], [place] [address], Ph. Attender: Flaca Rosario [facility] 03/29/2020 12:00:00 AM EST ETHAN ([facility]) Flaca Rosario, TRAFFIC COURT REFEREE: [address], [place] [address], Ph. Attender: Flaca Rosario [facility] 03/29/2020 12:00:00 AM EST ETHAN ([facility]) Flaca Rosario, TRAFFIC COURT REFEREE: [address], [place] [address], Ph. Attender: Flaca Rosario [facility] 03/29/2020 12:00:00 AM EST ETHAN ([facility]) Flaca Rosario, TRAFFIC COURT REFEREE: [address], [place] [address], Ph. Attender: Flaca Rosario [facility] 03/29/2020 12:00:00 AM EST ETHAN ([facility]) Flaca Rosario, TRAFFIC COURT REFEREE: [address], [place] [address], Ph. Attender: Flaca Rosario [facility] 03/29/2020 12:00:00 AM EST ETHAN ([facility]) Flaca Rosario, TRAFFIC COURT REFEREE: [address], [place] [address], Ph. Attender: Flaca Rosario [facility] Medical 03/29/2020 12:00:00 AM EST ETHAN ([facility]) Flaca Rosario, TRAFFIC COURT REFEREE: [address], [place] [address], Ph. Attender: Flaca Rosario [facility] 03/29/2020 12:00:00 AM EST ETHAN ([facility]) Flaca Rosario, TRAFFIC COURT REFEREE: [address], [place] [address], Ph. Attender: Flaca Rosario [facility] Medical 03/29/2020 12:00:00 AM EST ETHAN ([facility]) Flaca Rosario, TRAFFIC COURT REFEREE: [address], [place] [address], Ph. Attender: Flaca Rosario [facility] 03/29/2020 12:00:00 AM EST ETHAN ([facility]) Flaca Rosario, TRAFFIC COURT REFEREE: [address], [place] [address], Ph. Attender: Flaca Rosario [facility] 03/29/2020 12:00:00 AM EST ETHAN ([facility]) Flaca Rosario, TRAFFIC COURT REFEREE: [address], [place] [address], Ph. Attender: Flaca Rosario [facility] 03/29/2020 12:00:00 AM EST ETHAN ([facility]) Flaca Rosario, TRAFFIC COURT REFEREE: [address], [place] [address], Ph. Attender: Flaca Rosario [facility] 03/29/2020 12:00:00 AM EST ETHAN ([facility]) Outpatient Attender: AYO OSUNA Physical Therapy 03/12 08:30:00 AM EST MEDOZZY ([facility] ) ARUNA AlcarazC: [address], [place] [address], Ph. Attender: YAZMIN BUSTOS [facility] 03/19/2020 12:00:00 AM EST ETHAN ([facility]) ARUNA AlcarazC: [address], [place] [address], Ph. Attender: YAZMIN BUSTOS [facility] Medical 03/19/2020 12:00:00 AM EST ETHAN ([facility]) ARUNA AlcarazC: [address], [place] [address], Ph. Attender: YAZMIN BUSTOS [facility] Medical 03/19/2020 12:00:00 AM EST ETHAN ([facility]) ARUNA AlcarazC: [address], [place] [address], Ph. Attender: YAZMIN BUSTOS [facility] 03/19/2020 12:00:00 AM EST ETHAN ([facility]) Yazmin Bustos RPA-C: [address], [place] [address], Ph. Attender: YAZMIN BUSTOS [facility] 03/19/2020 12:00:00 AM EST ETHAN ([facility]) ARUNA AlcarazC: [address], [place] [address], Ph. Attender: YAZMIN BUSTOS [facility] 03/19/2020 12:00:00 AM EST ETHAN ([facility]) ARUNA AlcarazC: [address], [place] [address], Ph. Attender: YAZMIN BUSTOS [facility] 03/19/2020 12:00:00 AM EST ETHAN ([facility]) ARUNA AlcarazC: [address], [place] [address], Ph. Attender: YAZMIN BUSTOS [facility] 03/19/2020 12:00:00 AM EST ETHAN ([facility]) ARUNA AlcarazC: [address], [place] [address], Ph. Attender: YAZMIN BUSTOS [facility] 03/19/2020 12:00:00 AM EST ETHAN ([facility]) Yazmin Bustos RPA-C: [address], [place] [address], Ph. Attender: YAZMIN BUSTOS [facility] 03/19/2020 12:00:00 AM EST ETHAN ([facility]) ARUNA AlcarazC: [address], [place] [address], Ph. Attender: YAZMIN BUSTOS [facility] 03/19/2020 12:00:00 AM EST ETHAN ([facility]) Yazmin Bustos RPA-C: [address], [place] [address], Ph. Attender: YAZMIN BUSTOS [facility] 03/19/2020 12:00:00 AM EST ETHAN ([facility]) ARUNA AlcarazC: [address], [place] [address], Ph. Attender: YAZMIN BUSTOS [facility] 03/19/2020 12:00:00 AM EST ETHAN ([facility]) ARUNA AlcarazC: [address], [place] [address], Ph. Attender: YAZMIN BUSTOS [facility] 03/19/2020 12:00:00 AM EST ETHAN ([facility]) ARUNA SteinC: [address], [place] [address], Ph. Attender: KENTRELL ROSEN [facility] Medical 02/26/2020 12:00:00 AM EST ETHAN ([facility]) ARUNA SteinC: [address], [place] [address], Ph. Attender: KENTRELL WELLER RPA-C [facility] Medical 02/26/2020 12:00:00 AM EST ETHAN ([facility]) Kentrell Weller RPA-C: [address], [place] [address], Ph. Attender: KENTRELL WELLER RPA-C [facility] Medical 02/26/2020 12:00:00 AM EST ETHAN ([facility]) Kentrell Weller RPA-C: [address], [place] [address], Ph. Attender: KENTRELL WELLER RPA-C [facility] Medical 02/26/2020 12:00:00 AM EST ETHAN ([facility]) Kentrell Weller RPA-C: [address], [place] [address], Ph. Attender: KENTRELL WELLER RPA-C [facility] Medical 02/26/2020 12:00:00 AM EST ETHAN ([facility]) Kentrell Weller RPA-C: [address], [place] [address], Ph. Attender: KENTRELL WELLER RPA-C [facility] Medical 02/26/2020 12:00:00 AM EST ETHAN ([facility]) Kentrell Weller RPA-C: [address], [place] [address], Ph. Attender: KENTRELL WELLER RPA-C [facility] Medical 02/26/2020 12:00:00 AM EST ETHAN ([facility]) Kentrell D Weller, RPA-C: [address], [place] [address], Ph. Attender: KENTRELL WELLER RPA-C [facility] Medical 02/26/2020 12:00:00 AM EST ETHAN ([facility]) Kentrell Weller, RPA-C: [address], [place] [address], Ph. Attender: KENTRELL WELLER RPA-C [facility] Medical 02/26/2020 12:00:00 AM EST ETHAN ([facility]) Kentrell Weller RPA-C: [address], [place] [address], Ph. Attender: KENTRELL WELLER RPA-C [facility] Medical 02/26/2020 12:00:00 AM EST ETHAN ([facility]) Kentrell Weller, RPA-C: [address], [place] [address], Ph. Attender: KENTRELL WELLER RPA-C [facility] Medical 02/26/2020 12:00:00 AM EST ETHAN ([facility]) Kentrell Weller RPA-C: [address], [place] [address], Ph. Attender: KENTRELL WELLER RPA-C [facility] Medical 02/26/2020 12:00:00 AM EST ETHAN ([facility]) Kentrell Weller, RPA-C: [address], [place] [address], Ph. Attender: KENTRELL WELLER RPA-C [facility] Medical 02/26/2020 12:00:00 AM EST ETHAN ([facility]) Kentrell Weller, RPA-C: [address], [place] [address], Ph. Attender: KENTRELL WELLER RPA-C [facility] Medical 02/26/2020 12:00:00 AM EST ETHAN ([facility]) Kentrell Weller, RPA-C: [address], [place] [address], Ph. Attender: KENTRELL WELLER RPA-C [facility] Medical 02/26/2020 12:00:00 AM EST ETHAN ([facility]) Kentrell Weller RPA-C: [address], [place] [address], Ph. Attender: KENTRELL WELLER RPA-C [facility] Medical 02/20/2020 12:00:00 AM EST ETHAN ([facility]) Kentrell Weller, RPA-C: [address], [place] [address], Ph. Attender: KENTRELL WELLER RPA-C [facility] Medical 02/20/2020 12:00:00 AM EST ETHAN ([facility]) Kentrell Weller, RPA-C: [address], [place] [address], Ph. Attender: KENTRELL WELLER RPA-C [facility] Medical 02/20/2020 12:00:00 AM EST ETHAN ([facility]) Kentrell Weller RPA-C: [address], [place] [address], Ph. Attender: KENTRELL WELLER RPA-C [facility] Medical 02/20/2020 12:00:00 AM EST ETHAN ([facility]) Kentrell Weller RPA-C: [address], [place] [address], Ph. Attender: KENTRELL WELLER RPA-C [facility] Medical 02/20/2020 12:00:00 AM EST ETHAN ([facility]) Kentrell Weller RPA-C: [address], [place] [address], Ph. Attender: KENTRELL WELLER RPA-C [facility] Medical 02/20/2020 12:00:00 AM EST ETHAN ([facility]) Kentrell Weller RPA-C: [address], [place] [address], Ph. Attender: KENTRELL WELLER RPA-C [facility] Medical 02/20/2020 12:00:00 AM EST ETHAN ([facility]) Kentrell Weller RPA-C: [address], [place] [address], Ph. Attender: KENTRELL WELLER RPA-C [facility] Medical 02/20/2020 12:00:00 AM EST ETHAN ([facility]) Kentrell Weller, RPA-C: [address], [place] [address], Ph. Attender: KENTRELL WELLER RPA-C [facility] Medical 02/20/2020 12:00:00 AM EST ETHAN ([facility]) Kentrell Weller RPA-C: [address], [place] [address], Ph. Attender: KENTRELL WELLER RPA-C [facility] Medical 02/20/2020 12:00:00 AM EST ETHAN ([facility]) Kentrell Weller RPA-C: [address], [place] [address], Ph. Attender: KENTRELL WELLER RPA-C [facility] Medical 02/20/2020 12:00:00 AM EST ETHAN ([facility]) Kentrell Weller RPA-C: [address], [place] [address], Ph. Attender: KENTRELL WELLER RPA-C [facility] Medical 02/20/2020 12:00:00 AM EST ETHAN ([facility]) Kentrell Weller RPA-C: [address], [place] [address], Ph. Attender: KENTRELL WELLER RPA-C [facility] Medical 02/20/2020 12:00:00 AM EST ETHAN ([facility]) Kentrell Weller RPA-C: [address], [place] [address], Ph. Attender: KENTRELL WELLER RPA-C [facility] Medical 02/20/2020 12:00:00 AM EST ETHAN ([facility]) Kentrell Weller RPA-C: [address], [place] [address], Ph. Attender: KENTRELL WELLER RPA-C [facility] Medical 02/20/2020 12:00:00 AM EST ETHAN ([facility]) Kentrellewelina Weller RPA-C: [address] [facility] [address], [place] [address], Ph. Attender: KENTRELL WELLER RPA-C [facility] 02/20/2020 12:00:00 AM EST ETHAN ([facility]) Outpatient Attender: KENTRELL WELLER RPA-C [facility] 12/24/2019 12:17:01 PM EDT [facility] Outpatient Attender: KENTRELL WELLER RPA-C [facility] 12/24/2019 10:54:03 AM EDT [facility] Outpatient Attender: KENTRELL WELLER RPA-C [facility] 12/24/2019 10:35:03 AM EDT [facility] Outpatient Attender: KENTRELL WELLER RPA-C [facility] 12/24/2019 10:35:02 AM EDT [facility] Outpatient Attender: KENTRELL WELLER RPA-C [facility] 12/24/2019 09:18:03 AM EDT [facility] Outpatient Attender: KENTRELL WELLER RPA-C [facility] 12/24/2019 09:18:01 AM EDT [facility] Outpatient Attender: KENTRELL WELLER RPA-C [facility] 12/18/2019 08:01:02 AM EDT [facility] Outpatient Attender: KENTRELL WELLER RPA-C [facility] 12/17/2019 03:56:07 PM EDT [facility] Outpatient Attender: KENTRELL WELLER RPA-C [facility] 12/17/2019 02:30:06 PM EDT [facility] Outpatient Attender: KENTRELL WELLER RPA-C [facility] 12/11/2019 02:13:00 PM EDT [facility] Outpatient Attender: KENTRELL WELLER RPA-C [facility] 12/05/2019 05:01:59 PM EDT [facility] Outpatient Attender: KENTRELL WELLER RPA-C [facility] 12/05/2019 09:41:05 AM EDT [facility] Outpatient Attender: KENTRELL WELLER RPA-C [facility] 12/01/2019 03:02:01 PM EDT [facility] Outpatient Attender: KENTRELL WELLER RPA-C [facility] 11/27/2019 01:03:01 PM EDT [facility] Immunizations Vaccine Date Status Description Data Source(s) COVID-19, mRNA, LNP-S, PF, 100 mcg/0.5 mL dose 06/09/2020 11 :16:23 AM EDT completed .5 mL [facility]) COVID-19, mRNA, LNP-S, PF, 100 mcg/0.5 mL dose 06/09/2020 11 :16:23 AM EDT completed .5 mL [facility] ([facility]) COVID-19, mRNA, LNP-S, PF, 100 mcg/0.5 mL dose 06/09/2020 11 :16:23 AM EDT completed .5 mL [facility]) COVID-19, mRNA, LNP-S, PF, 100 mcg/0.5 mL dose 06/09/2020 11 :16:23 AM EDT completed .5 mL [facility]) COVID-19, mRNA, LNP-S, PF, 100 mcg/0.5 mL dose 06/09/2020 11 :16:23 AM EDT completed .5 mL [facility] ([facility]) COVID-19, mRNA, LNP-S, PF, 100 mcg/0.5 mL dose 06/09/2020 11 :16:23 AM EDT completed .5 mL [facility]) COVID-19, mRNA, LNP-S, PF, 100 mcg/0.5 mL dose 06/09/2020 11 :16:23 AM EDT completed .5 mL [facility] ([facility]) COVID-19, mRNA, LNP-S, PF, 100 mcg/0.5 mL dose 06/09/2020 11 :16:23 AM EDT completed .5 mL [facility]) COVID-19, mRNA, LNP-S, PF, 100 mcg/0.5 mL dose 06/09/2020 11 :16:23 AM EDT completed .5 mL [facility]) COVID-19 VACCINE Moderna 06/09/2020 12:00:00 AM EDT completed [facility] Vaccine Series Complete: YESThis Data wa s Submitted to [facility] Via [employer]. COVID-19, mRNA, LNP-S, PF, 100 mcg/0.5 mL dose 05/12/2020 02 :31:06 PM EST completed .5 mL [facility] ([facility]) COVID-19, mRNA, LNP-S, PF, 100 mcg/0.5 mL dose 05/12/2020 02 :31:06 PM EST completed .5 mL [facility] ([facility]) COVID-19, mRNA, LNP-S, PF, 100 mcg/0.5 mL dose 05/12/2020 02 :31:06 PM EST completed .5 mL [facility] ([facility]) COVID-19, mRNA, LNP-S, PF, 100 mcg/0.5 mL dose 05/12/2020 02 :31:06 PM EST completed .5 mL [facility] ([facility]) COVID-19, mRNA, LNP-S, PF, 100 mcg/0.5 mL dose 05/12/2020 02 :31:06 PM EST completed .5 mL [facility] ([facility]) COVID-19, mRNA, LNP-S, PF, 100 mcg/0.5 mL dose 05/12/2020 02 :31:06 PM EST completed .5 mL [facility] ([facility]) COVID-19, mRNA, LNP-S, PF, 100 mcg/0.5 mL dose 05/12/2020 02 :31:06 PM EST completed .5 mL [facility] ([facility]) COVID-19, mRNA, LNP-S, PF, 100 mcg/0.5 mL dose 05/12/2020 02 :31:06 PM EST completed .5 mL [facility]) COVID-19, mRNA, LNP-S, PF, 100 mcg/0.5 mL dose 05/12/2020 02 :31:06 PM EST completed 10.5 mL ETHAN ([facility]) COVID-19, mRNA, LNP-S, PF, 100 mcg/0.5 mL dose 05/12/2020 02 :31:06 PM EST completed 10.5 mL ETHAN ([facility]) COVID-19, mRNA, LNP-S, PF, 100 mcg/0.5 mL dose 05/12/2020 02 :31:06 PM EST completed .5 mL ETHAN ([facility]) COVID-19 VACCINE Moderna 05/12/2020 12:00:00 AM EST completed [facility] Vaccine Series Complete: NOThis Data was Submitted to [facility] Via [employer]. New in 2011. IIV4 12/24/2019 12:00:00 AM EDT completed 0.5 mL ETHAN ([facility]) New in 2011. IIV4 12/24/2019 12:00:00 AM EDT completed 0.5 mL ETHAN ([facility]) New in 2011. IIV4 12/24/2019 12:00:00 AM EDT completed 0.5 mL ETHAN ([facility]) New in 2011. IIV4 12/24/2019 12:00:00 AM EDT completed 0.5 mL ETHAN ([facility]) New in 2011. IIV4 12/24/2019 12:00:00 AM EDT completed 0.5 mL ETHAN ([facility]) New in 2011. IIV4 12/24/2019 12:00:00 AM EDT completed 0.5 mL ETHAN ([facility]) New in 2011. IIV4 12/24/2019 12:00:00 AM EDT completed 0.5 mL ETHAN ([facility]) New in 2011. IIV4 12/24/2019 12:00:00 AM EDT completed 0.5 mL ETHAN ([facility]) New in 2011. IIV4 12/24/2019 12:00:00 AM EDT completed .5 mL ETHAN ([facility]) New in 2011. IIV4 12/24/2019 12:00:00 AM EDT completed 0.5 mL ETHAN ([facility]) New in 2011. IIV4 12/24/2019 12:00:00 AM EDT completed .5 mL ETHAN ([facility]) New in 2011. IIV4 12/24/2019 12:00:00 AM EDT completed .5 mL ETHAN ([facility]) Medications Medication Brand Name Start Date Product Form Dose Route Admi nistrative Instructions Pharmacy Instructions Status Indications Reaction Description Data Source(s) canagliflozin 100 MG Oral Tablet [Invoka na] Canagliflozin (Invokana) 100 MG TABS Canagliflozin (Invokana) 100 MG TABS 07/12/2020 12:00:00 AM EDT 100 mg Oral active Take 100 mg by mouth [facility] sitagliptin 100 MG Oral Tablet sitaGLIPtin (JANUVIA) 1 00 MG tablet sitaGLIPtin (JANUVIA) 100 MG tablet 07/09/2020 12:00:00 AM EDT 1 {tbl} Oral active Take 1 tablet by mouth daily [facility] Metformin hydrochloride 1000 MG Oral Tab let metFORMIN (GLUCOPHAGE) 1000 MG tablet metFORMIN (GLUCOPHAGE) 1000 MG tablet 07/09/2020 12:00:00 AM EDT active Use as directed. Take 1 tabl et twice daily with meals. [facility] Insulin Glargine (Basaglar KwikPen) 100 UNIT/ML SOPN [id number] 07/09/2020 12:00:00 AM EDT active Inject 15 units into skin at bedtime, do not exceed more than 30 units in 1 day. Dx E11.9 [facility] BD Pen Needle Mini U/F 31G X 5 MM (Insulin Pen Needle) [id number] 06/25/2020 12:00:00 AM EDT active Use as directed. Use to inject insulin as needed. Dx E11.9 [facility] Toby Lowe 100 UNIT/ML Subcutaneou s Solution Pen-injector (insulin glargine) [id number] 06/25/2020 12:00:00 AM EDT active Inject 15 units into skin at bedtime, do not exceed more than 30 units in 1 day. Dx E11.9 [facility] Lisinopril 10 MG Oral Tablet Lisinopril 10 MG Oral Tab let (ZESTRIL) Lisinopril 10 MG Oral Tablet (ZESTRIL) 06/22/2020 12:00:00 AM EDT active [facility] ferrous sulfate 325 MG Oral Tablet Ferrous Sulfate 325 (65 Fe) MG Oral Tablet Ferrous Sulfate 325 (65 Fe) MG Oral Tablet 06/22/2020 12:00:00 AM EDT 1 {tbl} Oral active Take 1 tablet by janice th daily [facility] sitagliptin 50 MG Oral Tablet [Januvia] Januvia 50 MG Oral Tablet Januvia 50 MG Oral Tablet 06/22/2020 12:00:00 AM EDT active [facility] ferrous sulfate 325 MG Oral Tablet ferrous sulfate 325 (65 FE) MG tablet ferrous sulfate 325 (65 FE) MG tablet 06/22/2020 12:00:00 AM EDT 1 {tbl} Or al active Take 1 tablet by mouth daily [facility] Lisinopril 10 MG Oral Tablet lisinopril (PRINIVIL,ZEST RIL) 10 MG tablet lisinopril (PRINIVIL,ZESTRIL) 10 MG tablet 06/22/2020 12:00:00 AM EDT active [facility] Hydrochlorothiazide 12.5 MG Oral Capsule hydroCHLOROthiazide 12.5 MG Oral Capsule (MICROZIDE) hydroCHLOROthiazide 12.5 MG Oral Capsule (MICROZIDE) 06/20/2020 12:00:00 AM EDT active TAKE 1 CAPSULE BY MOUTH DAILY NEEDED FOR EDEMA [facility] Metformin hydrochloride 1000 MG Oral Tab let metFORMIN HCl 1000 MG Oral Tablet (GLUCOPHAGE) metFORMIN HCl 1000 MG Oral Tablet (GLUCOPHAGE) 021 12:00:00 AM EDT 1000 mg Oral active Take 1,000 mg by mouth Two Times Daily [facility] Hydrochlorothiazide 12.5 MG Oral Capsule hydrochlorothiazide (MICROZIDE) 12.5 MG capsule hydrochlorothiazide (MICROZIDE) 12.5 MG capsule 2020 12:00:00 AM EDT active TAKE 1 CAPSULE BY MOUTH DAILY NEEDED FOR EDEMA [facility] pregabalin 100 MG Oral Capsule Pregabalin 100 MG Oral Capsule (LYRICA) Pregabalin 100 MG Oral Capsule (LYRICA) 06/09/2020 12:00:00 AM EDT 100 mg Oral active Take 100 mg by mouth Two Times Daily [facility] pregabalin 100 MG Oral Capsule pregabalin (LYRICA) 100 MG capsule pregabalin (LYRICA) 100 MG capsule 06/09/2020 12:00:00 AM EDT 100 mg Oral active Take 100 mg by mouth [facility] Glyburide 5 MG Oral Tablet glyBURIDE 5 MG Oral Tablet (DIABETA) glyBURIDE 5 MG Oral Tablet (DIABETA) 05/25/2020 12:00:00 AM EDT active TAKE 2 TABLETS BY MOUTH IN THE AM AND 1 TABLET IN THE PM. [facility] Omeprazole 20 MG Delayed Release Oral Ca psule Omeprazole 20 MG Oral Capsule Delayed Release (PriLOSEC) Omeprazole 20 MG Oral Capsule Delayed Re lease (PriLOSEC) 05/25/2020 12:00:00 AM EDT Oral active Take by mouth daily [facility] Omeprazole 20 MG Delayed Release Oral Ca psule omeprazole (PriLOSEC) 20 MG capsule omeprazole (PriLOSEC) 20 MG capsule 05/25/2020 12:00:00 AM EDT Oral active Take by mouth [facility] Naproxen 500 MG Oral Tablet Naproxen 500 MG Oral Table t (NAPROSYN) Naproxen 500 MG Oral Tablet (NAPROSYN) 05/23/2020 12:00:00 AM EST 500 mg Oral active Take 500 mg by mouth [facility] Oral Capsule Pregabalin 04/30/2020 12:00:00 AM EST ORAL active [facility] ([facility]) pregabalin 25 MG Oral Capsule Pregabalin 03/23/2020 12:00:00 AM EST ORAL completed [facility] ([facility]) pregabalin 50 MG Oral Capsule Pregabalin 03/23/2020 12:00:00 AM EST ORAL completed [facility] ([facility]) Sertraline 100 MG Oral Tablet sertraline 100 mg tablet sertr romeo 100 mg tablet completed sertraline 100 MG Oral Tablet ETHAN ([facility]) Sertraline 100 MG Oral Tablet sertraline 100 mg tablet TAKE 1 TABLET BY MOUTH DAILY sertraline 100 mg tablet TAKE 1 TABLET BY MOUTH DAILY completed sertraline 100 MG Oral Tablet AT [facility] ([facility]) 0.5 ML dulaglutide 1.5 MG/ML Auto-Inject or [Trulicity] Trulicity 0.75 mg/0.5 mL subcutaneous pen injector INJ 0.75MG SC WEEKLY Trulicity 0.75 mg/0.5 mL subcutaneous pen injector INJ 0.75MG SC WEEKLY completed 0.5 ML dulaglutide 1.5 MG/ML Auto-Injector [Trulicity] BACKUS ([facility]) meloxicam 15 MG Oral Tablet meloxicam 15 mg tablet TK 1 T PO D meloxicam 15 mg tablet TK 1 T PO D completed edgar oxicam 15 MG Oral Tablet ETHAN ([facility]) Sertraline 50 MG Oral Tablet sertraline 50 mg tablet T K 1 T PO D IN THE MORNING sertraline 50 mg tablet TK 1 T PO D IN THE MORNING completed sertraline 50 MG Oral Tablet BACKUS ([facility]) Albuterol 0.83 MG/ML Inhalant Solution a lbuterol sulfate 2.5 mg/3 mL (0.083 %) solution for nebulization VVN Q 4 TO 6 H PRF WHZ OR SOB albuterol sulfate 2.5 mg/3 mL (0.083 %) solution for nebulization VVN Q 4 TO 6 H PRF WHZ OR SOB completed albuterol 0.83 MG/ML Inhalation Solution ETHAN ([facility]) Lactulose 667 MG/ML Oral Solution [Enulo se] Enulose 10 gram/15 mL oral solution TK 30ML PO BID FOR CONSTIPATION Enulose 10 gram/15 mL oral solution TK 3 0ML PO BID FOR CONSTIPATION completed lactulose 667 MG/ML Oral Solution [Enulose] ETHAN ([facility]) cefdinir 300 MG Oral Capsule cefdinir 30 0 mg capsule TAKE 1 CAPSULE BY MOUTH EVERY 12 HOURS FOR 10 DAYS cefdinir 300 mg capsule TAKE 1 CAPSULE B Y MOUTH EVERY 12 HOURS FOR 10 DAYS completed cefdinir 300 MG Oral Capsule BACKUS ([facility]) Levofloxacin 250 MG Oral Tablet levofloxacin 250 mg ta blet levofloxacin 250 mg tablet completed levofloxacin 25 0 MG Oral Tablet BACKUS ([facility]) meloxicam 15 MG Oral Tablet meloxicam 15 mg tablet TK 1 T PO D meloxicam 15 mg tablet TK 1 T PO D completed edgar oxicam 15 MG Oral Tablet BACKUS ([facility]) gabapentin 600 MG Oral Tablet gabapentin 600 mg tablet TK 1 T PO TID gabapentin 600 mg tablet TK 1 T PO TID completed gabapentin 600 MG Oral Tablet BACKUS ([facility]) sitagliptin 50 MG Oral Tablet [Januvia] Januvia 50 mg tablet Januvia 50 mg tablet completed sitagliptin 50 MG Oral Tablet [Januvia] BACKUS ([facility]) Metoclopramide 10 MG Oral Tablet metoclo pramide 10 mg tablet TK 1 T PO Q 6 H PRN N metoclopramide 10 mg tablet TK 1 T PO Q 6 H PRN N completed metoclopramide 10 MG Oral Tablet BACKUS ([facility]) cefdinir 300 MG Oral Capsule cefdinir 30 0 mg capsule TAKE 1 CAPSULE BY MOUTH EVERY 12 HOURS FOR 10 DAYS cefdinir 300 mg capsule TAKE 1 CAPSULE B Y MOUTH EVERY 12 HOURS FOR 10 DAYS completed cefdinir 300 MG Oral Capsule BACKUS ([facility]) meloxicam 15 MG Oral Tablet meloxicam 15 mg tablet TK 1 T PO D meloxicam 15 mg tablet TK 1 T PO D completed edgar oxicam 15 MG Oral Tablet BACKUS ([facility]) Omeprazole 40 MG Delayed Release Oral Ca psule omeprazole 40 mg capsule,delayed release TK ONE C PO QD omeprazole 40 mg capsule,delayed release TK ONE C PO Q D completed omeprazole 40 MG Delayed Release Oral Capsule BACKUS ([facility]) Ciprofloxacin 250 MG Oral Tablet ciprofl oxacin 250 mg tablet TK 1 T PO D FOR 5 DAYS FOR SYMPTOMS OF URINARY TRACT INFECTION ciprofloxacin 250 mg tablet TK 1 T PO D FOR 5 DAYS FOR SYMPTOMS OF URINARY TRACT INFECTION completed ciprofloxacin 250 MG Oral Tablet BACKUS ([facility]) Fluoxetine 10 MG Oral Capsule fluoxetine 10 mg capsule TK 1 C PO QD fluoxetine 10 mg capsule TK 1 C PO QD completed fluoxetine 10 MG Oral Capsule BACKUS ([facility]) Sertraline 25 MG Oral Tablet sertraline 25 mg tablet T K 1 T PO QD sertraline 25 mg tablet TK 1 T PO QD completed sertraline 25 MG Oral Tablet BACKUS ([facility]) Levofloxacin 250 MG Oral Tablet levofloxacin 250 mg ta blet levofloxacin 250 mg tablet completed levofloxacin 25 0 MG Oral Tablet BACKUS ([facility]) Sertraline 50 MG Oral Tablet sertraline 50 mg tablet T K 1 T PO D IN THE MORNING sertraline 50 mg tablet TK 1 T PO D IN THE MORNING completed sertraline 50 MG Oral Tablet BACKUS ([facility]) Ciprofloxacin 3 MG/ML Ophthalmic Solutio n ciprofloxacin 0.3 % eye drops INSTILL 1 DROP INTO AFFECTED EYE/S 2 TIMES PER DAY FOR 5 DAYS ciprofloxacin 0.3 % eye drops INSTILL 1 DROP INTO AFFECTED EYE/S 2 TIMES PER DAY FOR 5 DAYS completed ciprofloxacin 3 MG/ML Ophthalmic Solution BACKUS ([facility]) NITROFURANTOIN, MACROCRYSTALS 25 MG / Ni trofurantoin, Monohydrate 75 MG Oral Capsule nitrofurantoin monohydrate/macrocrystals 100 mg capsule TK 1 C PO BID nitrofurantoin monohydrate/macrocrystals 100 mg capsule TK 1 C PO BID completed nitrofurantoin, macrocrystals 25 MG / nitrofurantoin, monohydrate 75 MG Oral Capsule BACKUS ([facility]) Metronidazole 0.0075 MG/MG Vaginal Gel m etronidazole 0.75 % vaginal gel INSERT 1 APPLICATION VAGINALLY AT BEDTIME FOR 7 DAYS metronidazole 0.75 % vaginal gel INSERT 1 APPLICATION VAGINALLY AT BEDTIME FOR 7 DAYS completed metronidazole 0.0075 MG/MG Vaginal Gel BACKUS ([facility]) Sulfamethoxazole 800 MG / Trimethoprim 1 60 MG Oral Tablet sulfamethoxazole 800 mg-trimethoprim 160 mg tablet TAKE 1 TABLET BY MOUTH TWICE A DAY FOR 7 DAYS sulfamethoxazole 800 mg-trimethoprim 160 mg tablet TAKE 1 TABLET BY MOUTH TWICE A DAY FOR 7 DAYS completed sulfamethoxazole 800 MG / trimethoprim 160 MG Oral Tablet BACKUS ([facility]) Sertraline 100 MG Oral Tablet sertraline 100 mg tablet TAKE 1 TABLET BY MOUTH DAILY sertraline 100 mg tablet TAKE 1 TABLET BY MOUTH DAILY completed sertraline 100 MG Oral Tablet AT [facility]) albuterol sulfate HFA 90 mcg/actuation a erosol inhaler INHALE 2 PUFFS BY MOUTH EVERY 4 HOURS NEEDED FOR WHEEZING OR SHORTNESS OF BREATH [id number] completed [id number] 200 ACTUAT albuterol 0.09 MG/ACTUAT Metered Dose Inhaler BACKUS ([facility]) cefdinir 300 MG Oral Capsule cefdinir 30 0 mg capsule TAKE 1 CAPSULE BY MOUTH EVERY 12 HOURS FOR 10 DAYS cefdinir 300 mg capsule TAKE 1 CAPSULE B Y MOUTH EVERY 12 HOURS FOR 10 DAYS completed cefdinir 300 MG Oral Capsule BACKUS ([facility]) NITROFURANTOIN, MACROCRYSTALS 25 MG / Ni trofurantoin, Monohydrate 75 MG Oral Capsule nitrofurantoin monohydrate/macrocrystals 100 mg capsule TK 1 C PO BID nitrofurantoin monohydrate/macrocrystals 100 mg capsule TK 1 C PO BID completed nitrofurantoin, macrocrystals 25 MG / nitrofurantoin, monohydrate 75 MG Oral Capsule BACKUS ([facility]) 0.5 ML dulaglutide 1.5 MG/ML Auto-Inject or [Trulicity] Trulicity 0.75 mg/0.5 mL subcutaneous pen injector INJ 0.75MG SC WEEKLY Trulicity 0.75 mg/0.5 mL subcutaneous pen injector INJ 0.75MG SC WEEKLY completed 0.5 ML dulaglutide 1.5 MG/ML Auto-Injector [Trulicity] BACKUS ([facility]) Omeprazole 40 MG Delayed Release Oral Ca psule omeprazole 40 mg capsule,delayed release TK ONE C PO QD omeprazole 40 mg capsule,delayed release TK ONE C PO Q D completed omeprazole 40 MG Delayed Release Oral Capsule BACKUS ([facility]) Levofloxacin 500 MG Oral Tablet levoflox acin 500 mg tablet TAKE 1 TABLET BY BY MOUTH ONCE A DAY FOR 10 DAYS levofloxacin 500 mg tablet TAKE 1 TABLET BY BY MOUTH ONCE A DAY FOR 10 DAYS completed levofloxacin 500 MG Oral Tablet BACKUS ([facility]) Metronidazole 500 MG Oral Tablet metroni dazole 500 mg tablet TK 1 T PO TID FOR 7 DAYS metronidazole 500 mg tablet TK 1 T PO TID FOR 7 DAYS completed metronidazole 500 MG Oral Tablet BACKUS ([facility]) gabapentin 600 MG Oral Tablet gabapentin 600 mg tablet TK 1 T PO TID gabapentin 600 mg tablet TK 1 T PO TID completed gabapentin 600 MG Oral Tablet BACKUS ([facility]) Sertraline 100 MG Oral Tablet sertraline 100 mg tablet TAKE 1 TABLET BY MOUTH DAILY sertraline 100 mg tablet TAKE 1 TABLET BY MOUTH DAILY completed sertraline 100 MG Oral Tablet AT [facility]) Sertraline 100 MG Oral Tablet sertraline 100 mg tablet TAKE 1 TABLET BY MOUTH DAILY sertraline 100 mg tablet TAKE 1 TABLET BY MOUTH DAILY completed sertraline 100 MG Oral Tablet AT [facility]) Levofloxacin 250 MG Oral Tablet levofloxacin 250 mg ta blet levofloxacin 250 mg tablet completed levofloxacin 25 0 MG Oral Tablet BACKUS ([facility]) Omeprazole 40 MG Delayed Release Oral Ca psule omeprazole 40 mg capsule,delayed release TK ONE C PO QD omeprazole 40 mg capsule,delayed release TK ONE C PO Q D completed omeprazole 40 MG Delayed Release Oral Capsule BACKUS ([facility]) Metronidazole 0.0075 MG/MG Vaginal Gel m etronidazole 0.75 % vaginal gel INSERT 1 APPLICATION VAGINALLY AT BEDTIME FOR 7 DAYS metronidazole 0.75 % vaginal gel INSERT 1 APPLICATION VAGINALLY AT BEDTIME FOR 7 DAYS completed metronidazole 0.0075 MG/MG Vaginal Gel BACKUS ([facility]) Lisinopril 10 MG Oral Tablet lisinopril 10 mg tablet lisinopril 10 mg tablet completed lisinopril 10 MG Oral Tablet BACKUS ([facility]) Lactulose 667 MG/ML Oral Solution [Enulo se] Enulose 10 gram/15 mL oral solution TK 30ML PO BID FOR CONSTIPATION Enulose 10 gram/15 mL oral solution TK 3 0ML PO BID FOR CONSTIPATION completed lactulose 667 MG/ML Oral Solution [Enulose] BACKUS ([facility]) albuterol sulfate HFA 90 mcg/actuation a erosol inhaler INHALE 2 PUFFS BY MOUTH EVERY 4 HOURS NEEDED FOR WHEEZING OR SHORTNESS OF BREATH [id number] completed [id number] 200 ACTUAT albuterol 0.09 MG/ACTUAT Metered Dose Inhaler BACKUS ([facility]) albuterol sulfate HFA 90 mcg/actuation a erosol inhaler INHALE 2 PUFFS BY MOUTH EVERY 4 HOURS NEEDED FOR WHEEZING OR SHORTNESS OF BREATH [id number] completed [id number] 200 ACTUAT albuterol 0.09 MG/ACTUAT Metered Dose Inhaler BACKUS ([facility]) Levofloxacin 250 MG Oral Tablet levofloxacin 250 mg ta blet levofloxacin 250 mg tablet completed levofloxacin 25 0 MG Oral Tablet BACKUS ([facility]) Sertraline 50 MG Oral Tablet sertraline 50 mg tablet T K 1 T PO D IN THE MORNING sertraline 50 mg tablet TK 1 T PO D IN THE MORNING completed sertraline 50 MG Oral Tablet BACKUS ([facility]) Metronidazole 500 MG Oral Tablet metroni dazole 500 mg tablet TK 1 T PO TID FOR 7 DAYS metronidazole 500 mg tablet TK 1 T PO TID FOR 7 DAYS completed metronidazole 500 MG Oral Tablet BACKUS ([facility]) Metoclopramide 10 MG Oral Tablet metoclo pramide 10 mg tablet TK 1 T PO Q 6 H PRN N metoclopramide 10 mg tablet TK 1 T PO Q 6 H PRN N completed metoclopramide 10 MG Oral Tablet BACKUS ([facility]) Ciprofloxacin 3 MG/ML Ophthalmic Solutio n ciprofloxacin 0.3 % eye drops INSTILL 1 DROP INTO AFFECTED EYE/S 2 TIMES PER DAY FOR 5 DAYS ciprofloxacin 0.3 % eye drops INSTILL 1 DROP INTO AFFECTED EYE/S 2 TIMES PER DAY FOR 5 DAYS completed ciprofloxacin 3 MG/ML Ophthalmic Solution BACKUS ([facility]) silver sulfadiazine 10 MG/ML Topical Cre am [SSD] SSD 1 % topical cream BRIANA TOPICALLY AA BID SSD 1 % topical cream BRIANA TOPICALLY AA BID completed silver sulfadiazine 10 MG/ML Top ical Cream [SSD] BACKUS ([facility]) Simethicone 180 MG Oral Capsule Gas Reli ef (simethicone) 180 mg capsule TK ONE C PO TID Gas Relief (simethicone) 180 mg capsule TK ONE C PO TID completed simethicone 180 MG Oral Capsule BACKUS ([facility]) Cephalexin 500 MG Oral Capsule cephalexin 500 mg capsu le cephalexin 500 mg capsule completed cephalexin 500 MG Oral Capsule ETHAN ([facility]) Metronidazole 500 MG Oral Tablet metroni dazole 500 mg tablet TK 1 T PO TID FOR 7 DAYS metronidazole 500 mg tablet TK 1 T PO TID FOR 7 DAYS completed metronidazole 500 MG Oral Tablet ETHAN ([facility]) Metoclopramide 10 MG Oral Tablet metoclo pramide 10 mg tablet TK 1 T PO Q 6 H PRN N metoclopramide 10 mg tablet TK 1 T PO Q 6 H PRN N completed metoclopramide 10 MG Oral Tablet ETHAN ([facility]) Dicyclomine Hydrochloride 10 MG Oral Cap zahra dicyclomine 10 mg capsule TK 1 C PO Q 6 H PRF IRRITABLE BOWEL SYNDROME dicyclomine 10 mg capsule TK 1 C PO Q 6 H PRF IRRITABLE BOWEL SYNDROME completed dicyclomine hydrochloride 10 MG Oral Capsule ETHAN ([facility]) Lactulose 667 MG/ML Oral Solution [Enulo se] Enulose 10 gram/15 mL oral solution TK 30ML PO BID FOR CONSTIPATION Enulose 10 gram/15 mL oral solution TK 3 0ML PO BID FOR CONSTIPATION completed lactulose 667 MG/ML Oral Solution [Enulose] BACKUS ([facility]) gabapentin 600 MG Oral Tablet gabapentin 600 mg tablet TK 1 T PO TID gabapentin 600 mg tablet TK 1 T PO TID completed gabapentin 600 MG Oral Tablet ETHAN ([facility]) Simethicone 180 MG Oral Capsule Gas Reli ef (simethicone) 180 mg capsule TK ONE C PO TID Gas Relief (simethicone) 180 mg capsule TK ONE C PO TID completed simethicone 180 MG Oral Capsule ETHAN ([facility]) Sertraline 50 MG Oral Tablet sertraline 50 mg tablet T K 1 T PO D IN THE MORNING sertraline 50 mg tablet TK 1 T PO D IN THE MORNING completed sertraline 50 MG Oral Tablet ETHAN ([facility]) Lactulose 667 MG/ML Oral Solution [Enulo se] Enulose 10 gram/15 mL oral solution TK 30ML PO BID FOR CONSTIPATION Enulose 10 gram/15 mL oral solution TK 3 0ML PO BID FOR CONSTIPATION completed lactulose 667 MG/ML Oral Solution [Enulose] ETHAN ([facility]) Sertraline 25 MG Oral Tablet sertraline 25 mg tablet T K 1 T PO QD sertraline 25 mg tablet TK 1 T PO QD completed sertraline 25 MG Oral Tablet ETHAN ([facility]) gabapentin 600 MG Oral Tablet gabapentin 600 mg tablet TK 1 T PO TID gabapentin 600 mg tablet TK 1 T PO TID completed gabapentin 600 MG Oral Tablet ETHAN ([facility]) Lisinopril 5 MG Oral Tablet lisinopril 5 mg tablet TAKE 2 TABLETS BY MOUTH DAILY lisinopril 5 mg tablet TAKE 2 TABLETS BY MOUTH DAILY completed lisinopril 5 MG Oral Tablet ETHAN ([facility]) Simethicone 180 MG Oral Capsule Gas Reli ef (simethicone) 180 mg capsule TK ONE C PO TID Gas Relief (simethicone) 180 mg capsule TK ONE C PO TID completed simethicone 180 MG Oral Capsule BACKUS ([facility]) NITROFURANTOIN, MACROCRYSTALS 25 MG / Ni trofurantoin, Monohydrate 75 MG Oral Capsule nitrofurantoin monohydrate/macrocrystals 100 mg capsule TK 1 C PO BID nitrofurantoin monohydrate/macrocrystals 100 mg capsule TK 1 C PO BID completed nitrofurantoin, macrocrystals 25 MG / nitrofurantoin, monohydrate 75 MG Oral Capsule BACKUS ([facility]) gabapentin 600 MG Oral Tablet gabapentin 600 mg tablet TK 1 T PO TID gabapentin 600 mg tablet TK 1 T PO TID completed gabapentin 600 MG Oral Tablet ETHAN ([facility]) Omeprazole 40 MG Delayed Release Oral Ca psule omeprazole 40 mg capsule,delayed release TK ONE C PO QD omeprazole 40 mg capsule,delayed release TK ONE C PO Q D completed omeprazole 40 MG Delayed Release Oral Capsule ETHAN ([facility]) 0.5 ML dulaglutide 1.5 MG/ML Auto-Inject or [Trulicity] Trulicity 0.75 mg/0.5 mL subcutaneous pen injector INJ 0.75MG SC WEEKLY Trulicity 0.75 mg/0.5 mL subcutaneous pen injector INJ 0.75MG SC WEEKLY completed 0.5 ML dulaglutide 1.5 MG/ML Auto-Injector [Trulicity] ETHAN ([facility]) meloxicam 15 MG Oral Tablet meloxicam 15 mg tablet TK 1 T PO D meloxicam 15 mg tablet TK 1 T PO D completed edgar oxicam 15 MG Oral Tablet BACKUS ([facility]) gabapentin 600 MG Oral Tablet gabapentin 600 mg tablet TK 1 T PO TID gabapentin 600 mg tablet TK 1 T PO TID completed gabapentin 600 MG Oral Tablet BACKUS ([facility]) Lisinopril 5 MG Oral Tablet lisinopril 5 mg tablet TAKE 2 TABLETS BY MOUTH DAILY lisinopril 5 mg tablet TAKE 2 TABLETS BY MOUTH DAILY completed lisinopril 5 MG Oral Tablet ETHAN ([facility]) Lisinopril 5 MG Oral Tablet lisinopril 5 mg tablet TK 2 TS PO D lisinopril 5 mg tablet TK 2 TS PO D completed li sinopril 5 MG Oral Tablet BACKUS ([facility]) Sertraline 50 MG Oral Tablet sertraline 50 mg tablet T K 1 T PO D IN THE MORNING sertraline 50 mg tablet TK 1 T PO D IN THE MORNING completed sertraline 50 MG Oral Tablet BACKUS ([facility]) albuterol sulfate HFA 90 mcg/actuation a erosol inhaler INHALE 2 PUFFS BY MOUTH EVERY 4 HOURS NEEDED FOR WHEEZING OR SHORTNESS OF BREATH [id number] completed [id number] 200 ACTUAT albuterol 0.09 MG/ACTUAT Metered Dose Inhaler BACKUS ([facility]) Acetaminophen 500 MG Oral Tablet acetami nophen 500 mg tablet TAKE 2 TABS BY MOUTH EVERY 6 HOURS NEEDED FOR PAIN & FEVER. acetaminophen 500 mg tablet TAKE 2 TABS BY MOUTH EVERY 6 HOURS NEEDED FOR PAIN & FEVER. completed acetaminophen 500 MG Oral Tablet BACKUS ([facility]) gabapentin 800 MG Oral Tablet gabapentin 800 mg tablet TAKE 1 TABLET BY MOUTH THREE TIMES DAILY gabapentin 800 mg tablet TAKE 1 TABLET B Y MOUTH THREE TIMES DAILY completed gabapentin 800 M G Oral Tablet BACKUS ([facility]) Albuterol 0.83 MG/ML Inhalant Solution a lbuterol sulfate 2.5 mg/3 mL (0.083 %) solution for nebulization VVN Q 4 TO 6 H PRF WHZ OR SOB albuterol sulfate 2.5 mg/3 mL (0.083 %) solution for nebulization VVN Q 4 TO 6 H PRF WHZ OR SOB completed albuterol 0.83 MG/ML Inhalation Solution BACKUS ([facility]) Simethicone 180 MG Oral Capsule Gas Reli ef (simethicone) 180 mg capsule TK ONE C PO TID Gas Relief (simethicone) 180 mg capsule TK ONE C PO TID completed simethicone 180 MG Oral Capsule BACKUS ([facility]) Metoclopramide 10 MG Oral Tablet metoclo pramide 10 mg tablet TK 1 T PO Q 6 H PRN N metoclopramide 10 mg tablet TK 1 T PO Q 6 H PRN N completed metoclopramide 10 MG Oral Tablet BACKUS ([facility]) Ciprofloxacin 250 MG Oral Tablet ciprofl oxacin 250 mg tablet TK 1 T PO D FOR 5 DAYS FOR SYMPTOMS OF URINARY TRACT INFECTION ciprofloxacin 250 mg tablet TK 1 T PO D FOR 5 DAYS FOR SYMPTOMS OF URINARY TRACT INFECTION completed ciprofloxacin 250 MG Oral Tablet BACKUS ([facility]) Metoclopramide 10 MG Oral Tablet metoclo pramide 10 mg tablet TK 1 T PO Q 6 H PRN N metoclopramide 10 mg tablet TK 1 T PO Q 6 H PRN N completed metoclopramide 10 MG Oral Tablet BACKUS ([facility]) Metronidazole 0.0075 MG/MG Vaginal Gel m etronidazole 0.75 % vaginal gel INSERT 1 APPLICATION VAGINALLY AT BEDTIME FOR 7 DAYS metronidazole 0.75 % vaginal gel INSERT 1 APPLICATION VAGINALLY AT BEDTIME FOR 7 DAYS completed metronidazole 0.0075 MG/MG Vaginal Gel BACKUS ([facility]) Sulfamethoxazole 800 MG / Trimethoprim 1 60 MG Oral Tablet sulfamethoxazole 800 mg-trimethoprim 160 mg tablet TAKE 1 TABLET BY MOUTH TWICE A DAY FOR 7 DAYS sulfamethoxazole 800 mg-trimethoprim 160 mg tablet TAKE 1 TABLET BY MOUTH TWICE A DAY FOR 7 DAYS completed sulfamethoxazole 800 MG / trimethoprim 160 MG Oral Tablet BACKUS ([facility]) meloxicam 15 MG Oral Tablet meloxicam 15 mg tablet TK 1 T PO D meloxicam 15 mg tablet TK 1 T PO D completed edgar oxicam 15 MG Oral Tablet BACKUS ([facility]) meloxicam 15 MG Oral Tablet meloxicam 15 mg tablet TK 1 T PO D meloxicam 15 mg tablet TK 1 T PO D completed edgar oxicam 15 MG Oral Tablet ETHAN ([facility]) Fluoxetine 10 MG Oral Capsule fluoxetine 10 mg capsule TK 1 C PO QD fluoxetine 10 mg capsule TK 1 C PO QD completed fluoxetine 10 MG Oral Capsule ETHAN ([facility]) 0.5 ML dulaglutide 3 MG/ML Auto-Injector [Trulicity] Trulicity 1.5 mg/0.5 mL subcutaneous pen injector INJECT SQ ONCE WEEKLY Trulicity 1.5 mg/0.5 mL subcutaneous pen injector INJECT SQ ONCE WEEKLY completed 0.5 ML dulaglutide 3 MG/ML Auto-Injector [Trulicity] ETHAN ([facility]) Glyburide 5 MG Oral Tablet glyburide 5 mg tablet glyburide 5 mg tablet completed glyburide 5 MG Oral Table t ETHAN ([facility]) gabapentin 600 MG Oral Tablet gabapentin 600 mg tablet TK 1 T PO TID gabapentin 600 mg tablet TK 1 T PO TID completed gabapentin 600 MG Oral Tablet ETHAN ([facility]) Fluoxetine 10 MG Oral Capsule fluoxetine 10 mg capsule TK 1 C PO QD fluoxetine 10 mg capsule TK 1 C PO QD completed fluoxetine 10 MG Oral Capsule ETHAN ([facility]) Sertraline 25 MG Oral Tablet sertraline 25 mg tablet T K 1 T PO QD sertraline 25 mg tablet TK 1 T PO QD completed sertraline 25 MG Oral Tablet ETHAN ([facility]) Sertraline 50 MG Oral Tablet sertraline 50 mg tablet T K 1 T PO D IN THE MORNING sertraline 50 mg tablet TK 1 T PO D IN THE MORNING completed sertraline 50 MG Oral Tablet ETHAN ([facility]) Metronidazole 0.0075 MG/MG Vaginal Gel m etronidazole 0.75 % vaginal gel INSERT 1 APPLICATION VAGINALLY AT BEDTIME FOR 7 DAYS metronidazole 0.75 % vaginal gel INSERT 1 APPLICATION VAGINALLY AT BEDTIME FOR 7 DAYS completed metronidazole 0.0075 MG/MG Vaginal Gel ETHAN ([facility]) Lactulose 667 MG/ML Oral Solution [Enulo se] Enulose 10 gram/15 mL oral solution TK 30ML PO BID FOR CONSTIPATION Enulose 10 gram/15 mL oral solution TK 3 0ML PO BID FOR CONSTIPATION completed lactulose 667 MG/ML Oral Solution [Enulose] ETHAN ([facility]) Fluoxetine 10 MG Oral Capsule fluoxetine 10 mg capsule TK 1 C PO QD fluoxetine 10 mg capsule TK 1 C PO QD completed fluoxetine 10 MG Oral Capsule ETHAN ([facility]) Phenazopyridine hydrochloride 100 MG Ora l Tablet phenazopyridine 100 mg tablet TAKE 1 TABLET BY MOUTH 3 TIMES PER DAY FOR 2 DAYS phenazopyridine 100 mg tablet TAKE 1 TABLET BY MOUTH 3 TIMES PER DAY FOR 2 DAYS completed phenazopyridine hydrochloride 100 MG Oral Tablet ETHAN ([facility]) Metronidazole 500 MG Oral Tablet metroni dazole 500 mg tablet TK 1 T PO TID FOR 7 DAYS metronidazole 500 mg tablet TK 1 T PO TID FOR 7 DAYS completed metronidazole 500 MG Oral Tablet ETHAN ([facility]) gabapentin 600 MG Oral Tablet gabapentin 600 mg tablet TK 1 T PO TID gabapentin 600 mg tablet TK 1 T PO TID completed gabapentin 600 MG Oral Tablet ETHAN ([facility]) meloxicam 15 MG Oral Tablet meloxicam 15 mg tablet TK 1 T PO D meloxicam 15 mg tablet TK 1 T PO D completed edgar oxicam 15 MG Oral Tablet ETHAN ([facility]) Ciprofloxacin 250 MG Oral Tablet ciprofl oxacin 250 mg tablet TK 1 T PO D FOR 5 DAYS FOR SYMPTOMS OF URINARY TRACT INFECTION ciprofloxacin 250 mg tablet TK 1 T PO D FOR 5 DAYS FOR SYMPTOMS OF URINARY TRACT INFECTION completed ciprofloxacin 250 MG Oral Tablet ETHAN ([facility]) Acetaminophen 500 MG Oral Tablet acetami nophen 500 mg tablet TAKE 2 TABS BY MOUTH EVERY 6 HOURS NEEDED FOR PAIN & FEVER. acetaminophen 500 mg tablet TAKE 2 TABS BY MOUTH EVERY 6 HOURS NEEDED FOR PAIN & FEVER. completed acetaminophen 500 MG Oral Tablet ETHAN ([facility]) Metoclopramide 10 MG Oral Tablet metoclo pramide 10 mg tablet TK 1 T PO Q 6 H PRN N metoclopramide 10 mg tablet TK 1 T PO Q 6 H PRN N completed metoclopramide 10 MG Oral Tablet ETHAN ([facility]) Metronidazole 500 MG Oral Tablet metroni dazole 500 mg tablet TK 1 T PO TID FOR 7 DAYS metronidazole 500 mg tablet TK 1 T PO TID FOR 7 DAYS completed metronidazole 500 MG Oral Tablet ETHAN ([facility]) meloxicam 15 MG Oral Tablet meloxicam 15 mg tablet TK 1 T PO D meloxicam 15 mg tablet TK 1 T PO D completed edgar oxicam 15 MG Oral Tablet BACKUS ([facility]) silver sulfadiazine 10 MG/ML Topical Cre am [SSD] SSD 1 % topical cream BRIANA TOPICALLY AA BID SSD 1 % topical cream BRIANA TOPICALLY AA BID completed silver sulfadiazine 10 MG/ML Top ical Cream [SSD] BACKUS ([facility]) Metronidazole 0.0075 MG/MG Vaginal Gel m etronidazole 0.75 % vaginal gel INSERT 1 APPLICATION VAGINALLY AT BEDTIME FOR 7 DAYS metronidazole 0.75 % vaginal gel INSERT 1 APPLICATION VAGINALLY AT BEDTIME FOR 7 DAYS completed metronidazole 0.0075 MG/MG Vaginal Gel BACKUS ([facility]) Ciprofloxacin 250 MG Oral Tablet ciprofl oxacin 250 mg tablet TK 1 T PO D FOR 5 DAYS FOR SYMPTOMS OF URINARY TRACT INFECTION ciprofloxacin 250 mg tablet TK 1 T PO D FOR 5 DAYS FOR SYMPTOMS OF URINARY TRACT INFECTION completed ciprofloxacin 250 MG Oral Tablet BACKUS ([facility]) Metronidazole 500 MG Oral Tablet metroni dazole 500 mg tablet TK 1 T PO TID FOR 7 DAYS metronidazole 500 mg tablet TK 1 T PO TID FOR 7 DAYS completed metronidazole 500 MG Oral Tablet BACKUS ([facility]) Lisinopril 5 MG Oral Tablet lisinopril 5 mg tablet TAKE 2 TABLETS BY MOUTH DAILY lisinopril 5 mg tablet TAKE 2 TABLETS BY MOUTH DAILY completed lisinopril 5 MG Oral Tablet BACKUS ([facility]) Sertraline 100 MG Oral Tablet sertraline 100 mg tablet TAKE 1 TABLET BY MOUTH DAILY sertraline 100 mg tablet TAKE 1 TABLET BY MOUTH DAILY completed sertraline 100 MG Oral Tablet AT [facility] ([facility]) Fluoxetine 10 MG Oral Capsule fluoxetine 10 mg capsule TK 1 C PO QD fluoxetine 10 mg capsule TK 1 C PO QD completed fluoxetine 10 MG Oral Capsule BACKUS ([facility]) Dicyclomine Hydrochloride 10 MG Oral Cap zahra dicyclomine 10 mg capsule TK 1 C PO Q 6 H PRF IRRITABLE BOWEL SYNDROME dicyclomine 10 mg capsule TK 1 C PO Q 6 H PRF IRRITABLE BOWEL SYNDROME completed dicyclomine hydrochloride 10 MG Oral Capsule BACKUS ([facility]) cefdinir 300 MG Oral Capsule cefdinir 30 0 mg capsule TAKE 1 CAPSULE BY MOUTH EVERY 12 HOURS FOR 10 DAYS cefdinir 300 mg capsule TAKE 1 CAPSULE B Y MOUTH EVERY 12 HOURS FOR 10 DAYS completed cefdinir 300 MG Oral Capsule BACKUS ([facility]) albuterol sulfate HFA 90 mcg/actuation a erosol inhaler INHALE 2 PUFFS BY MOUTH EVERY 4 HOURS NEEDED FOR WHEEZING OR SHORTNESS OF BREATH [id number] completed [id number] 200 ACTUAT albuterol 0.09 MG/ACTUAT Metered Dose Inhaler [facility] er) Levofloxacin 250 MG Oral Tablet levofloxacin 250 mg ta blet levofloxacin 250 mg tablet completed levofloxacin 25 0 MG Oral Tablet BACKUS ([facility]) Omeprazole 40 MG Delayed Release Oral Ca psule omeprazole 40 mg capsule,delayed release TK ONE C PO QD omeprazole 40 mg capsule,delayed release TK ONE C PO Q D completed omeprazole 40 MG Delayed Release Oral Capsule BACKUS ([facility]) 0.5 ML dulaglutide 1.5 MG/ML Auto-Inject or [Trulicity] Trulicity 0.75 mg/0.5 mL subcutaneous pen injector INJ 0.75MG SC WEEKLY Trulicity 0.75 mg/0.5 mL subcutaneous pen injector INJ 0.75MG SC WEEKLY completed 0.5 ML dulaglutide 1.5 MG/ML Auto-Injector [Trulicity] BACKUS ([facility]) cefdinir 300 MG Oral Capsule cefdinir 30 0 mg capsule TAKE 1 CAPSULE BY MOUTH EVERY 12 HOURS FOR 10 DAYS cefdinir 300 mg capsule TAKE 1 CAPSULE B Y MOUTH EVERY 12 HOURS FOR 10 DAYS completed cefdinir 300 MG Oral Capsule BACKUS ([facility]) gabapentin 800 MG Oral Tablet gabapentin 800 mg tablet TAKE 1 TABLET BY MOUTH THREE TIMES DAILY gabapentin 800 mg tablet TAKE 1 TABLET B Y MOUTH THREE TIMES DAILY completed gabapentin 800 M G Oral Tablet BACKUS ([facility]) NITROFURANTOIN, MACROCRYSTALS 25 MG / Ni trofurantoin, Monohydrate 75 MG Oral Capsule nitrofurantoin monohydrate/macrocrystals 100 mg capsule TK 1 C PO BID nitrofurantoin monohydrate/macrocrystals 100 mg capsule TK 1 C PO BID completed nitrofurantoin, macrocrystals 25 MG / nitrofurantoin, monohydrate 75 MG Oral Capsule BACKUS ([facility]) Ciprofloxacin 250 MG Oral Tablet ciprofl oxacin 250 mg tablet TK 1 T PO D FOR 5 DAYS FOR SYMPTOMS OF URINARY TRACT INFECTION ciprofloxacin 250 mg tablet TK 1 T PO D FOR 5 DAYS FOR SYMPTOMS OF URINARY TRACT INFECTION completed ciprofloxacin 250 MG Oral Tablet BACKUS ([facility]) Simethicone 180 MG Oral Capsule Gas Reli ef (simethicone) 180 mg capsule TK ONE C PO TID Gas Relief (simethicone) 180 mg capsule TK ONE C PO TID completed simethicone 180 MG Oral Capsule BACKUS ([facility]) meloxicam 15 MG Oral Tablet meloxicam 15 mg tablet TK 1 T PO D meloxicam 15 mg tablet TK 1 T PO D completed edgar oxicam 15 MG Oral Tablet ETHAN ([facility]) Simethicone 180 MG Oral Capsule Gas Reli ef (simethicone) 180 mg capsule TK ONE C PO TID Gas Relief (simethicone) 180 mg capsule TK ONE C PO TID completed simethicone 180 MG Oral Capsule BACKUS ([facility]) Metoclopramide 10 MG Oral Tablet metoclo pramide 10 mg tablet TK 1 T PO Q 6 H PRN N metoclopramide 10 mg tablet TK 1 T PO Q 6 H PRN N completed metoclopramide 10 MG Oral Tablet ETHAN ([facility]) Sertraline 25 MG Oral Tablet sertraline 25 mg tablet T K 1 T PO QD sertraline 25 mg tablet TK 1 T PO QD completed sertraline 25 MG Oral Tablet BACKUS ([facility]) albuterol sulfate HFA 90 mcg/actuation a erosol inhaler INHALE 2 PUFFS BY MOUTH EVERY 4 HOURS NEEDED FOR WHEEZING OR SHORTNESS OF BREATH [id number] completed [id number] 200 ACTUAT albuterol 0.09 MG/ACTUAT Metered Dose Inhaler ETHAN ([facility]) Sertraline 50 MG Oral Tablet sertraline 50 mg tablet T K 1 T PO D IN THE MORNING sertraline 50 mg tablet TK 1 T PO D IN THE MORNING completed sertraline 50 MG Oral Tablet ETHAN ([facility]) Albuterol 0.83 MG/ML Inhalant Solution a lbuterol sulfate 2.5 mg/3 mL (0.083 %) solution for nebulization VVN Q 4 TO 6 H PRF WHZ OR SOB albuterol sulfate 2.5 mg/3 mL (0.083 %) solution for nebulization VVN Q 4 TO 6 H PRF WHZ OR SOB completed albuterol 0.83 MG/ML Inhalation Solution BACKUS ([facility]) Sertraline 25 MG Oral Tablet sertraline 25 mg tablet T K 1 T PO QD sertraline 25 mg tablet TK 1 T PO QD completed sertraline 25 MG Oral Tablet BACKUS ([facility]) NITROFURANTOIN, MACROCRYSTALS 25 MG / Ni trofurantoin, Monohydrate 75 MG Oral Capsule nitrofurantoin monohydrate/macrocrystals 100 mg capsule TK 1 C PO BID nitrofurantoin monohydrate/macrocrystals 100 mg capsule TK 1 C PO BID completed nitrofurantoin, macrocrystals 25 MG / nitrofurantoin, monohydrate 75 MG Oral Capsule [facility] er) Ciprofloxacin 250 MG Oral Tablet ciprofl oxacin 250 mg tablet TK 1 T PO D FOR 5 DAYS FOR SYMPTOMS OF URINARY TRACT INFECTION ciprofloxacin 250 mg tablet TK 1 T PO D FOR 5 DAYS FOR SYMPTOMS OF URINARY TRACT INFECTION completed ciprofloxacin 250 MG Oral Tablet BACKUS ([facility]) Metronidazole 0.0075 MG/MG Vaginal Gel m etronidazole 0.75 % vaginal gel INSERT 1 APPLICATION VAGINALLY AT BEDTIME FOR 7 DAYS metronidazole 0.75 % vaginal gel INSERT 1 APPLICATION VAGINALLY AT BEDTIME FOR 7 DAYS completed metronidazole 0.0075 MG/MG Vaginal Gel BACKUS ([facility]) silver sulfadiazine 10 MG/ML Topical Cre am [SSD] SSD 1 % topical cream BRIANA TOPICALLY AA BID SSD 1 % topical cream BRIANA TOPICALLY AA BID completed silver sulfadiazine 10 MG/ML Top ical Cream [SSD] BACKUS ([facility]) gabapentin 800 MG Oral Tablet gabapentin 800 mg tablet TAKE 1 TABLET BY MOUTH THREE TIMES DAILY gabapentin 800 mg tablet TAKE 1 TABLET B Y MOUTH THREE TIMES DAILY completed gabapentin 800 M G Oral Tablet BACKUS ([facility]) gabapentin 800 MG Oral Tablet gabapentin 800 mg tablet TAKE 1 TABLET BY MOUTH THREE TIMES DAILY gabapentin 800 mg tablet TAKE 1 TABLET B Y MOUTH THREE TIMES DAILY completed gabapentin 800 M G Oral Tablet [facility]) Lisinopril 5 MG Oral Tablet lisinopril 5 mg tablet TAKE 2 TABLETS BY MOUTH DAILY lisinopril 5 mg tablet TAKE 2 TABLETS BY MOUTH DAILY completed lisinopril 5 MG Oral Tablet ETHAN ([facility]) Metronidazole 500 MG Oral Tablet metroni dazole 500 mg tablet TK 1 T PO TID FOR 7 DAYS metronidazole 500 mg tablet TK 1 T PO TID FOR 7 DAYS completed metronidazole 500 MG Oral Tablet BACKUS ([facility]) Sertraline 50 MG Oral Tablet sertraline 50 mg tablet T K 1 T PO D IN THE MORNING sertraline 50 mg tablet TK 1 T PO D IN THE MORNING completed sertraline 50 MG Oral Tablet BACKUS ([facility]) Dicyclomine Hydrochloride 10 MG Oral Cap zahra dicyclomine 10 mg capsule TK 1 C PO Q 6 H PRF IRRITABLE BOWEL SYNDROME dicyclomine 10 mg capsule TK 1 C PO Q 6 H PRF IRRITABLE BOWEL SYNDROME completed dicyclomine hydrochloride 10 MG Oral Capsule BACKUS ([facility]) Acetaminophen 500 MG Oral Tablet acetami nophen 500 mg tablet TAKE 2 TABS BY MOUTH EVERY 6 HOURS NEEDED FOR PAIN & FEVER. acetaminophen 500 mg tablet TAKE 2 TABS BY MOUTH EVERY 6 HOURS NEEDED FOR PAIN & FEVER. completed acetaminophen 500 MG Oral Tablet BACKUS ([facility]) meloxicam 15 MG Oral Tablet meloxicam 15 mg tablet TK 1 T PO D meloxicam 15 mg tablet TK 1 T PO D completed edgar oxicam 15 MG Oral Tablet BACKUS ([facility]) NITROFURANTOIN, MACROCRYSTALS 25 MG / Ni trofurantoin, Monohydrate 75 MG Oral Capsule nitrofurantoin monohydrate/macrocrystals 100 mg capsule TK 1 C PO BID nitrofurantoin monohydrate/macrocrystals 100 mg capsule TK 1 C PO BID completed nitrofurantoin, macrocrystals 25 MG / nitrofurantoin, monohydrate 75 MG Oral Capsule ETHAN ([facility]) Levofloxacin 250 MG Oral Tablet levofloxacin 250 mg ta blet levofloxacin 250 mg tablet completed levofloxacin 25 0 MG Oral Tablet BACKUS ([facility]) Simethicone 180 MG Oral Capsule Gas Reli ef (simethicone) 180 mg capsule TK ONE C PO TID Gas Relief (simethicone) 180 mg capsule TK ONE C PO TID completed simethicone 180 MG Oral Capsule ETHAN ([facility]) NITROFURANTOIN, MACROCRYSTALS 25 MG / Ni trofurantoin, Monohydrate 75 MG Oral Capsule nitrofurantoin monohydrate/macrocrystals 100 mg capsule TK 1 C PO BID nitrofurantoin monohydrate/macrocrystals 100 mg capsule TK 1 C PO BID completed nitrofurantoin, macrocrystals 25 MG / nitrofurantoin, monohydrate 75 MG Oral Capsule ETHAN ([facility]) Sertraline 25 MG Oral Tablet sertraline 25 mg tablet T K 1 T PO QD sertraline 25 mg tablet TK 1 T PO QD completed sertraline 25 MG Oral Tablet ETHAN ([facility]) Naproxen 500 MG Oral Tablet naproxen 500 mg tablet TAKE 1 TABLET BY MOUTH TWICE DAILY WITH MEALS naproxen 500 mg tablet TAKE 1 TABLET BY MOUTH TWICE DAILY WITH MEALS completed naproxen 500 MG Oral Tablet ETHAN ([facility]) Sertraline 25 MG Oral Tablet sertraline 25 mg tablet T K 1 T PO QD sertraline 25 mg tablet TK 1 T PO QD completed sertraline 25 MG Oral Tablet ETHAN ([facility]) Metronidazole 500 MG Oral Tablet metroni dazole 500 mg tablet TK 1 T PO TID FOR 7 DAYS metronidazole 500 mg tablet TK 1 T PO TID FOR 7 DAYS completed metronidazole 500 MG Oral Tablet ETHAN ([facility]) Acetaminophen 500 MG Oral Tablet acetami nophen 500 mg tablet TAKE 2 TABS BY MOUTH EVERY 6 HOURS NEEDED FOR PAIN & FEVER. acetaminophen 500 mg tablet TAKE 2 TABS BY MOUTH EVERY 6 HOURS NEEDED FOR PAIN & FEVER. completed acetaminophen 500 MG Oral Tablet ETHAN ([facility]) Simethicone 180 MG Oral Capsule Gas Reli ef (simethicone) 180 mg capsule TK ONE C PO TID Gas Relief (simethicone) 180 mg capsule TK ONE C PO TID completed simethicone 180 MG Oral Capsule ETHAN ([facility]) Lisinopril 5 MG Oral Tablet lisinopril 5 mg tablet TAKE 2 TABLETS BY MOUTH DAILY lisinopril 5 mg tablet TAKE 2 TABLETS BY MOUTH DAILY completed lisinopril 5 MG Oral Tablet ETHAN ([facility]) cefdinir 300 MG Oral Capsule cefdinir 30 0 mg capsule TAKE 1 CAPSULE BY MOUTH EVERY 12 HOURS FOR 10 DAYS cefdinir 300 mg capsule TAKE 1 CAPSULE B Y MOUTH EVERY 12 HOURS FOR 10 DAYS completed cefdinir 300 MG Oral Capsule BACKUS ([facility]) Fluconazole 150 MG Oral Tablet fluconazo le 150 mg tablet TAKE 1 TABLET BY MOUTH 1 TIME PER DAY FOR 1 DAY fluconazole 150 mg tablet TAKE 1 TABLET BY MOUTH 1 TIME PER DAY FOR 1 DAY completed flu conazole 150 MG Oral Tablet ETHAN ([facility]) Metronidazole 0.0075 MG/MG Vaginal Gel m etronidazole 0.75 % vaginal gel INSERT 1 APPLICATION VAGINALLY AT BEDTIME FOR 7 DAYS metronidazole 0.75 % vaginal gel INSERT 1 APPLICATION VAGINALLY AT BEDTIME FOR 7 DAYS completed metronidazole 0.0075 MG/MG Vaginal Gel BACKUS ([facility]) Sertraline 50 MG Oral Tablet sertraline 50 mg tablet T K 1 T PO D IN THE MORNING sertraline 50 mg tablet TK 1 T PO D IN THE MORNING completed sertraline 50 MG Oral Tablet BACKUS ([facility]) Clindamycin 300 MG Oral Capsule clindamycin HCl 300 mg capsule clindamycin HCl 300 mg capsule completed clindam ycin 300 MG Oral Capsule BACKUS ([facility]) Sertraline 25 MG Oral Tablet sertraline 25 mg tablet T K 1 T PO QD sertraline 25 mg tablet TK 1 T PO QD completed sertraline 25 MG Oral Tablet BACKUS ([facility]) Ciprofloxacin 250 MG Oral Tablet ciprofl oxacin 250 mg tablet TK 1 T PO D FOR 5 DAYS FOR SYMPTOMS OF URINARY TRACT INFECTION ciprofloxacin 250 mg tablet TK 1 T PO D FOR 5 DAYS FOR SYMPTOMS OF URINARY TRACT INFECTION completed ciprofloxacin 250 MG Oral Tablet BACKUS ([facility]) 0.5 ML dulaglutide 1.5 MG/ML Auto-Inject or [Trulicity] Trulicity 0.75 mg/0.5 mL subcutaneous pen injector INJ 0.75MG SC WEEKLY Trulicity 0.75 mg/0.5 mL subcutaneous pen injector INJ 0.75MG SC WEEKLY completed 0.5 ML dulaglutide 1.5 MG/ML Auto-Injector [Trulicity] ETHAN ([facility]) Sulfamethoxazole 800 MG / Trimethoprim 1 60 MG Oral Tablet sulfamethoxazole 800 mg-trimethoprim 160 mg tablet TAKE 1 TABLET BY MOUTH TWICE A DAY FOR 7 DAYS sulfamethoxazole 800 mg-trimethoprim 160 mg tablet TAKE 1 TABLET BY MOUTH TWICE A DAY FOR 7 DAYS completed sulfamethoxazole 800 MG / trimethoprim 160 MG Oral Tablet BACKUS ([facility]) Albuterol 0.83 MG/ML Inhalant Solution a lbuterol sulfate 2.5 mg/3 mL (0.083 %) solution for nebulization VVN Q 4 TO 6 H PRF WHZ OR SOB albuterol sulfate 2.5 mg/3 mL (0.083 %) solution for nebulization VVN Q 4 TO 6 H PRF WHZ OR SOB completed albuterol 0.83 MG/ML Inhalation Solution BACKUS ([facility]) Omeprazole 40 MG Delayed Release Oral Ca psule omeprazole 40 mg capsule,delayed release TK ONE C PO QD omeprazole 40 mg capsule,delayed release TK ONE C PO Q D completed omeprazole 40 MG Delayed Release Oral Capsule BACKUS ([facility]) Fluoxetine 10 MG Oral Capsule fluoxetine 10 mg capsule TK 1 C PO QD fluoxetine 10 mg capsule TK 1 C PO QD completed fluoxetine 10 MG Oral Capsule BACKUS ([facility]) Sertraline 25 MG Oral Tablet sertraline 25 mg tablet T K 1 T PO QD sertraline 25 mg tablet TK 1 T PO QD completed sertraline 25 MG Oral Tablet BACKUS ([facility]) pregabalin 50 MG Oral Capsule pregabalin 50 mg capsule TAKE 1 CAPSULE BY MOUTH TWICE A DAY pregabalin 50 mg capsule TAKE 1 CAPSULE BY MOUTH TWICE A DAY completed pregabalin 50 MG Ora l Capsule BACKUS ([facility]) Omeprazole 40 MG Delayed Release Oral Ca psule omeprazole 40 mg capsule,delayed release TK ONE C PO QD omeprazole 40 mg capsule,delayed release TK ONE C PO Q D completed omeprazole 40 MG Delayed Release Oral Capsule BACKUS ([facility]) Lisinopril 5 MG Oral Tablet lisinopril 5 mg tablet TAKE 2 TABLETS BY MOUTH DAILY lisinopril 5 mg tablet TAKE 2 TABLETS BY MOUTH DAILY completed lisinopril 5 MG Oral Tablet ETHAN ([facility]) Lisinopril 5 MG Oral Tablet lisinopril 5 mg tablet TK 2 TS PO D lisinopril 5 mg tablet TK 2 TS PO D completed li sinopril 5 MG Oral Tablet ETHAN ([facility]) Lactulose 667 MG/ML Oral Solution [Enulo se] Enulose 10 gram/15 mL oral solution TK 30ML PO BID FOR CONSTIPATION Enulose 10 gram/15 mL oral solution TK 3 0ML PO BID FOR CONSTIPATION completed lactulose 667 MG/ML Oral Solution [Enulose] ETHAN ([facility]) Omeprazole 40 MG Delayed Release Oral Ca psule omeprazole 40 mg capsule,delayed release TK ONE C PO QD omeprazole 40 mg capsule,delayed release TK ONE C PO Q D completed omeprazole 40 MG Delayed Release Oral Capsule BACKUS ([facility]) NITROFURANTOIN, MACROCRYSTALS 25 MG / Ni trofurantoin, Monohydrate 75 MG Oral Capsule nitrofurantoin monohydrate/macrocrystals 100 mg capsule TK 1 C PO BID nitrofurantoin monohydrate/macrocrystals 100 mg capsule TK 1 C PO BID completed nitrofurantoin, macrocrystals 25 MG / nitrofurantoin, monohydrate 75 MG Oral Capsule ETHAN ([facility]) gabapentin 800 MG Oral Tablet gabapentin 800 mg tablet TAKE 1 TABLET BY MOUTH THREE TIMES DAILY gabapentin 800 mg tablet TAKE 1 TABLET B Y MOUTH THREE TIMES DAILY completed gabapentin 800 M G Oral Tablet BACKUS ([facility]) Dicyclomine Hydrochloride 10 MG Oral Cap zahra dicyclomine 10 mg capsule TK 1 C PO Q 6 H PRF IRRITABLE BOWEL SYNDROME dicyclomine 10 mg capsule TK 1 C PO Q 6 H PRF IRRITABLE BOWEL SYNDROME completed dicyclomine hydrochloride 10 MG Oral Capsule ETHAN ([facility]) Sertraline 50 MG Oral Tablet sertraline 50 mg tablet T K 1 T PO D IN THE MORNING sertraline 50 mg tablet TK 1 T PO D IN THE MORNING completed sertraline 50 MG Oral Tablet ETHAN ([facility]) Dexamethasone 1 MG Oral Tablet dexamethasone 1 mg tabl et dexamethasone 1 mg tablet completed dexamethasone 1 MG Oral Tablet BACKUS ([facility]) gabapentin 600 MG Oral Tablet gabapentin 600 mg tablet TK 1 T PO TID gabapentin 600 mg tablet TK 1 T PO TID completed gabapentin 600 MG Oral Tablet ETHAN ([facility]) Albuterol 0.83 MG/ML Inhalant Solution a lbuterol sulfate 2.5 mg/3 mL (0.083 %) solution for nebulization VVN Q 4 TO 6 H PRF WHZ OR SOB albuterol sulfate 2.5 mg/3 mL (0.083 %) solution for nebulization VVN Q 4 TO 6 H PRF WHZ OR SOB completed albuterol 0.83 MG/ML Inhalation Solution ETHAN ([facility]) Metronidazole 0.0075 MG/MG Vaginal Gel m etronidazole 0.75 % vaginal gel INSERT 1 APPLICATION VAGINALLY AT BEDTIME FOR 7 DAYS metronidazole 0.75 % vaginal gel INSERT 1 APPLICATION VAGINALLY AT BEDTIME FOR 7 DAYS completed metronidazole 0.0075 MG/MG Vaginal Gel BACKUS ([facility]) ferrous sulfate 325 MG Oral Tablet ferrous sulfate 325 mg (65 mg iron) tablet ferrous sulfate 325 mg (65 mg iron) tablet completed ferrous sulfate 325 MG Oral Tablet BACKUS ([facility]) Levofloxacin 250 MG Oral Tablet levofloxacin 250 mg ta blet levofloxacin 250 mg tablet completed levofloxacin 25 0 MG Oral Tablet BACKUS ([facility]) Cephalexin 500 MG Oral Capsule cephalexin 500 mg capsu le cephalexin 500 mg capsule completed cephalexin 500 MG Oral Capsule BACKUS ([facility]) Metronidazole 0.0075 MG/MG Vaginal Gel m etronidazole 0.75 % vaginal gel INSERT 1 APPLICATION VAGINALLY AT BEDTIME FOR 7 DAYS metronidazole 0.75 % vaginal gel INSERT 1 APPLICATION VAGINALLY AT BEDTIME FOR 7 DAYS completed metronidazole 0.0075 MG/MG Vaginal Gel BACKUS ([facility]) gabapentin 600 MG Oral Tablet gabapentin 600 mg tablet TK 1 T PO TID gabapentin 600 mg tablet TK 1 T PO TID completed gabapentin 600 MG Oral Tablet ETHAN ([facility]) Ciprofloxacin 250 MG Oral Tablet ciprofl oxacin 250 mg tablet TK 1 T PO D FOR 5 DAYS FOR SYMPTOMS OF URINARY TRACT INFECTION ciprofloxacin 250 mg tablet TK 1 T PO D FOR 5 DAYS FOR SYMPTOMS OF URINARY TRACT INFECTION completed ciprofloxacin 250 MG Oral Tablet BACKUS ([facility]) Omeprazole 40 MG Delayed Release Oral Ca psule omeprazole 40 mg capsule,delayed release TK ONE C PO QD omeprazole 40 mg capsule,delayed release TK ONE C PO Q D completed omeprazole 40 MG Delayed Release Oral Capsule ETHAN ([facility]) Dicyclomine Hydrochloride 10 MG Oral Cap zahra dicyclomine 10 mg capsule TK 1 C PO Q 6 H PRF IRRITABLE BOWEL SYNDROME dicyclomine 10 mg capsule TK 1 C PO Q 6 H PRF IRRITABLE BOWEL SYNDROME completed dicyclomine hydrochloride 10 MG Oral Capsule ETHAN ([facility]) Metronidazole 0.0075 MG/MG Vaginal Gel m etronidazole 0.75 % vaginal gel INSERT 1 APPLICATION VAGINALLY AT BEDTIME FOR 7 DAYS metronidazole 0.75 % vaginal gel INSERT 1 APPLICATION VAGINALLY AT BEDTIME FOR 7 DAYS completed metronidazole 0.0075 MG/MG Vaginal Gel ETHAN ([facility]) gabapentin 600 MG Oral Tablet gabapentin 600 mg tablet TK 1 T PO TID gabapentin 600 mg tablet TK 1 T PO TID completed gabapentin 600 MG Oral Tablet ETHAN ([facility]) gabapentin 800 MG Oral Tablet gabapentin 800 mg tablet TAKE 1 TABLET BY MOUTH THREE TIMES DAILY gabapentin 800 mg tablet TAKE 1 TABLET B Y MOUTH THREE TIMES DAILY completed gabapentin 800 M G Oral Tablet ETHAN ([facility]) Albuterol 0.83 MG/ML Inhalant Solution a lbuterol sulfate 2.5 mg/3 mL (0.083 %) solution for nebulization VVN Q 4 TO 6 H PRF WHZ OR SOB albuterol sulfate 2.5 mg/3 mL (0.083 %) solution for nebulization VVN Q 4 TO 6 H PRF WHZ OR SOB completed albuterol 0.83 MG/ML Inhalation Solution BACKUS ([facility]) Dicyclomine Hydrochloride 10 MG Oral Cap zahra dicyclomine 10 mg capsule TK 1 C PO Q 6 H PRF IRRITABLE BOWEL SYNDROME dicyclomine 10 mg capsule TK 1 C PO Q 6 H PRF IRRITABLE BOWEL SYNDROME completed dicyclomine hydrochloride 10 MG Oral Capsule ETHAN ([facility]) Lisinopril 5 MG Oral Tablet lisinopril 5 mg tablet TAKE 2 TABLETS BY MOUTH DAILY lisinopril 5 mg tablet TAKE 2 TABLETS BY MOUTH DAILY completed lisinopril 5 MG Oral Tablet ETHAN ([facility]) Ciprofloxacin 3 MG/ML Ophthalmic Solutio n ciprofloxacin 0.3 % eye drops INSTILL 1 DROP INTO AFFECTED EYE/S 2 TIMES PER DAY FOR 5 DAYS ciprofloxacin 0.3 % eye drops INSTILL 1 DROP INTO AFFECTED EYE/S 2 TIMES PER DAY FOR 5 DAYS completed ciprofloxacin 3 MG/ML Ophthalmic Solution BACKUS ([facility]) gabapentin 600 MG Oral Tablet gabapentin 600 mg tablet TK 1 T PO TID gabapentin 600 mg tablet TK 1 T PO TID completed gabapentin 600 MG Oral Tablet BACKUS ([facility]) Lisinopril 5 MG Oral Tablet lisinopril 5 mg tablet TAKE 2 TABLETS BY MOUTH DAILY lisinopril 5 mg tablet TAKE 2 TABLETS BY MOUTH DAILY completed lisinopril 5 MG Oral Tablet BACKUS ([facility]) Albuterol 0.83 MG/ML Inhalant Solution a lbuterol sulfate 2.5 mg/3 mL (0.083 %) solution for nebulization VVN Q 4 TO 6 H PRF WHZ OR SOB albuterol sulfate 2.5 mg/3 mL (0.083 %) solution for nebulization VVN Q 4 TO 6 H PRF WHZ OR SOB completed albuterol 0.83 MG/ML Inhalation Solution BACKUS ([facility]) silver sulfadiazine 10 MG/ML Topical Cre am [SSD] SSD 1 % topical cream BRIANA TOPICALLY AA BID SSD 1 % topical cream BRIANA TOPICALLY AA BID completed silver sulfadiazine 10 MG/ML Top ical Cream [SSD] BACKUS ([facility]) Omeprazole 40 MG Delayed Release Oral Ca psule omeprazole 40 mg capsule,delayed release TK ONE C PO QD omeprazole 40 mg capsule,delayed release TK ONE C PO Q D completed omeprazole 40 MG Delayed Release Oral Capsule BACKUS ([facility]) cefdinir 300 MG Oral Capsule cefdinir 30 0 mg capsule TAKE 1 CAPSULE BY MOUTH EVERY 12 HOURS FOR 10 DAYS cefdinir 300 mg capsule TAKE 1 CAPSULE B Y MOUTH EVERY 12 HOURS FOR 10 DAYS completed cefdinir 300 MG Oral Capsule BACKUS ([facility]) Dicyclomine Hydrochloride 10 MG Oral Cap zahra dicyclomine 10 mg capsule TK 1 C PO Q 6 H PRF IRRITABLE BOWEL SYNDROME dicyclomine 10 mg capsule TK 1 C PO Q 6 H PRF IRRITABLE BOWEL SYNDROME completed dicyclomine hydrochloride 10 MG Oral Capsule BACKUS ([facility]) Sertraline 100 MG Oral Tablet sertraline 100 mg tablet TAKE 1 TABLET BY MOUTH DAILY sertraline 100 mg tablet TAKE 1 TABLET BY MOUTH DAILY completed sertraline 100 MG Oral Tablet AT RAMILA ([facility]) Ciprofloxacin 250 MG Oral Tablet ciprofl oxacin 250 mg tablet TK 1 T PO D FOR 5 DAYS FOR SYMPTOMS OF URINARY TRACT INFECTION ciprofloxacin 250 mg tablet TK 1 T PO D FOR 5 DAYS FOR SYMPTOMS OF URINARY TRACT INFECTION completed ciprofloxacin 250 MG Oral Tablet BACKUS ([facility]) Ciprofloxacin 3 MG/ML Ophthalmic Solutio n ciprofloxacin 0.3 % eye drops INSTILL 1 DROP INTO AFFECTED EYE/S 2 TIMES PER DAY FOR 5 DAYS ciprofloxacin 0.3 % eye drops INSTILL 1 DROP INTO AFFECTED EYE/S 2 TIMES PER DAY FOR 5 DAYS completed ciprofloxacin 3 MG/ML Ophthalmic Solution BACKUS ([facility]) sitagliptin 50 MG Oral Tablet [Januvia] Januvia 50 mg tablet Januvia 50 mg tablet completed sitagliptin 50 MG Oral Tablet [Januvia] BACKUS ([facility]) Metronidazole 500 MG Oral Tablet metroni dazole 500 mg tablet TK 1 T PO TID FOR 7 DAYS metronidazole 500 mg tablet TK 1 T PO TID FOR 7 DAYS completed metronidazole 500 MG Oral Tablet BACKUS ([facility]) Lactulose 667 MG/ML Oral Solution [Enulo se] Enulose 10 gram/15 mL oral solution TK 30ML PO BID FOR CONSTIPATION Enulose 10 gram/15 mL oral solution TK 3 0ML PO BID FOR CONSTIPATION completed lactulose 667 MG/ML Oral Solution [Enulose] BACKUS ([facility]) albuterol sulfate HFA 90 mcg/actuation a erosol inhaler INHALE 2 PUFFS BY MOUTH EVERY 4 HOURS NEEDED FOR WHEEZING OR SHORTNESS OF BREATH [id number] completed [id number] 200 ACTUAT albuterol 0.09 MG/ACTUAT Metered Dose Inhaler BACKUS ([facility]) Sertraline 25 MG Oral Tablet sertraline 25 mg tablet T K 1 T PO QD sertraline 25 mg tablet TK 1 T PO QD completed sertraline 25 MG Oral Tablet BACKUS ([facility]) cefdinir 300 MG Oral Capsule cefdinir 30 0 mg capsule TAKE 1 CAPSULE BY MOUTH EVERY 12 HOURS FOR 10 DAYS cefdinir 300 mg capsule TAKE 1 CAPSULE B Y MOUTH EVERY 12 HOURS FOR 10 DAYS completed cefdinir 300 MG Oral Capsule [facility]) 0.5 ML dulaglutide 1.5 MG/ML Auto-Inject or [Trulicity] Trulicity 0.75 mg/0.5 mL subcutaneous pen injector INJ 0.75MG SC WEEKLY Trulicity 0.75 mg/0.5 mL subcutaneous pen injector INJ 0.75MG SC WEEKLY completed 0.5 ML dulaglutide 1.5 MG/ML Auto-Injector [Trulicity] BACKUS ([facility]) Levofloxacin 250 MG Oral Tablet levofloxacin 250 mg ta blet levofloxacin 250 mg tablet completed levofloxacin 25 0 MG Oral Tablet BACKUS ([facility]) cefdinir 300 MG Oral Capsule cefdinir 30 0 mg capsule TAKE 1 CAPSULE BY MOUTH EVERY 12 HOURS FOR 10 DAYS cefdinir 300 mg capsule TAKE 1 CAPSULE B Y MOUTH EVERY 12 HOURS FOR 10 DAYS completed cefdinir 300 MG Oral Capsule BACKUS ([facility]) pregabalin 50 MG Oral Capsule pregabalin 50 mg capsule TAKE 1 CAPSULE BY MOUTH TWICE A DAY pregabalin 50 mg capsule TAKE 1 CAPSULE BY MOUTH TWICE A DAY completed pregabalin 50 MG Ora l Capsule BACKUS ([facility]) Ciprofloxacin 250 MG Oral Tablet ciprofl oxacin 250 mg tablet TK 1 T PO D FOR 5 DAYS FOR SYMPTOMS OF URINARY TRACT INFECTION ciprofloxacin 250 mg tablet TK 1 T PO D FOR 5 DAYS FOR SYMPTOMS OF URINARY TRACT INFECTION completed ciprofloxacin 250 MG Oral Tablet BACKUS ([facility]) 0.5 ML dulaglutide 1.5 MG/ML Auto-Inject or [Trulicity] Trulicity 0.75 mg/0.5 mL subcutaneous pen injector INJ 0.75MG SC WEEKLY Trulicity 0.75 mg/0.5 mL subcutaneous pen injector INJ 0.75MG SC WEEKLY completed 0.5 ML dulaglutide 1.5 MG/ML Auto-Injector [Trulicity] BACKUS ([facility]) Sertraline 50 MG Oral Tablet sertraline 50 mg tablet T K 1 T PO D IN THE MORNING sertraline 50 mg tablet TK 1 T PO D IN THE MORNING completed sertraline 50 MG Oral Tablet ETHAN ([facility]) Acetaminophen 500 MG Oral Tablet acetami nophen 500 mg tablet TAKE 2 TABS BY MOUTH EVERY 6 HOURS NEEDED FOR PAIN & FEVER. acetaminophen 500 mg tablet TAKE 2 TABS BY MOUTH EVERY 6 HOURS NEEDED FOR PAIN & FEVER. completed acetaminophen 500 MG Oral Tablet ETHAN ([facility]) Naproxen 500 MG Oral Tablet naproxen 500 mg tablet TAKE 1 TABLET BY MOUTH TWICE DAILY WITH MEALS naproxen 500 mg tablet TAKE 1 TABLET BY MOUTH TWICE DAILY WITH MEALS completed naproxen 500 MG Oral Tablet ETHAN ([facility]) ferrous sulfate 325 MG Oral Tablet martina us sulfate 325 mg (65 mg iron) tablet TK 1 T PO QD ferrous sulfate 325 mg (65 mg iron) tablet TK 1 T PO QD completed ferrous sulfate 325 MG Oral Tabl et ETHAN ([facility]) Sertraline 25 MG Oral Tablet sertraline 25 mg tablet T K 1 T PO QD sertraline 25 mg tablet TK 1 T PO QD completed sertraline 25 MG Oral Tablet BACKUS ([facility]) Lisinopril 5 MG Oral Tablet lisinopril 5 mg tablet TK 2 TS PO D lisinopril 5 mg tablet TK 2 TS PO D completed li sinopril 5 MG Oral Tablet BACKUS ([facility]) Ciprofloxacin 3 MG/ML Ophthalmic Solutio n ciprofloxacin 0.3 % eye drops INSTILL 1 DROP INTO AFFECTED EYE/S 2 TIMES PER DAY FOR 5 DAYS ciprofloxacin 0.3 % eye drops INSTILL 1 DROP INTO AFFECTED EYE/S 2 TIMES PER DAY FOR 5 DAYS completed ciprofloxacin 3 MG/ML Ophthalmic Solution BACKUS ([facility]) silver sulfadiazine 10 MG/ML Topical Cre am [SSD] SSD 1 % topical cream BRIANA TOPICALLY AA BID SSD 1 % topical cream BRIANA TOPICALLY AA BID completed silver sulfadiazine 10 MG/ML Top ical Cream [SSD] BACKUS ([facility]) gabapentin 800 MG Oral Tablet gabapentin 800 mg tablet TAKE 1 TABLET BY MOUTH THREE TIMES DAILY gabapentin 800 mg tablet TAKE 1 TABLET B Y MOUTH THREE TIMES DAILY completed gabapentin 800 M G Oral Tablet ETHAN ([facility]) Metronidazole 500 MG Oral Tablet metroni dazole 500 mg tablet TK 1 T PO TID FOR 7 DAYS metronidazole 500 mg tablet TK 1 T PO TID FOR 7 DAYS completed metronidazole 500 MG Oral Tablet BACKUS ([facility]) Sertraline 25 MG Oral Tablet sertraline 25 mg tablet T K 1 T PO QD sertraline 25 mg tablet TK 1 T PO QD completed sertraline 25 MG Oral Tablet ETHAN ([facility]) Metoclopramide 10 MG Oral Tablet metoclo pramide 10 mg tablet TK 1 T PO Q 6 H PRN N metoclopramide 10 mg tablet TK 1 T PO Q 6 H PRN N completed metoclopramide 10 MG Oral Tablet ETHAN ([facility]) Lactulose 667 MG/ML Oral Solution [Enulo se] Enulose 10 gram/15 mL oral solution TK 30ML PO BID FOR CONSTIPATION Enulose 10 gram/15 mL oral solution TK 3 0ML PO BID FOR CONSTIPATION completed lactulose 667 MG/ML Oral Solution [Enulose] ETHAN ([facility]) Metronidazole 0.0075 MG/MG Vaginal Gel m etronidazole 0.75 % vaginal gel INSERT 1 APPLICATION VAGINALLY AT BEDTIME FOR 7 DAYS metronidazole 0.75 % vaginal gel INSERT 1 APPLICATION VAGINALLY AT BEDTIME FOR 7 DAYS completed metronidazole 0.0075 MG/MG Vaginal Gel ETHAN ([facility]) Clindamycin 300 MG Oral Capsule clindamycin HCl 300 mg capsule clindamycin HCl 300 mg capsule completed clindam ycin 300 MG Oral Capsule ETHAN ([facility]) Simethicone 180 MG Oral Capsule Gas Reli ef (simethicone) 180 mg capsule TK ONE C PO TID Gas Relief (simethicone) 180 mg capsule TK ONE C PO TID completed simethicone 180 MG Oral Capsule ETHAN ([facility]) NITROFURANTOIN, MACROCRYSTALS 25 MG / Ni trofurantoin, Monohydrate 75 MG Oral Capsule nitrofurantoin monohydrate/macrocrystals 100 mg capsule TK 1 C PO BID nitrofurantoin monohydrate/macrocrystals 100 mg capsule TK 1 C PO BID completed nitrofurantoin, macrocrystals 25 MG / nitrofurantoin, monohydrate 75 MG Oral Capsule ETHAN ([facility]) Lactulose 667 MG/ML Oral Solution [Enulo se] Enulose 10 gram/15 mL oral solution TK 30ML PO BID FOR CONSTIPATION Enulose 10 gram/15 mL oral solution TK 3 0ML PO BID FOR CONSTIPATION completed lactulose 667 MG/ML Oral Solution [Enulose] ETHAN ([facility]) Fluoxetine 10 MG Oral Capsule fluoxetine 10 mg capsule TK 1 C PO QD fluoxetine 10 mg capsule TK 1 C PO QD completed fluoxetine 10 MG Oral Capsule ETHAN ([facility]) Lisinopril 5 MG Oral Tablet lisinopril 5 mg tablet TAKE 2 TABLETS BY MOUTH DAILY lisinopril 5 mg tablet TAKE 2 TABLETS BY MOUTH DAILY completed lisinopril 5 MG Oral Tablet BACKUS ([facility]) Simethicone 180 MG Oral Capsule Gas Reli ef (simethicone) 180 mg capsule TK ONE C PO TID Gas Relief (simethicone) 180 mg capsule TK ONE C PO TID completed simethicone 180 MG Oral Capsule BACKUS ([facility]) meloxicam 15 MG Oral Tablet meloxicam 15 mg tablet TK 1 T PO D meloxicam 15 mg tablet TK 1 T PO D completed edgar oxicam 15 MG Oral Tablet BACKUS ([facility]) Albuterol 0.83 MG/ML Inhalant Solution a lbuterol sulfate 2.5 mg/3 mL (0.083 %) solution for nebulization VVN Q 4 TO 6 H PRF WHZ OR SOB albuterol sulfate 2.5 mg/3 mL (0.083 %) solution for nebulization VVN Q 4 TO 6 H PRF WHZ OR SOB completed albuterol 0.83 MG/ML Inhalation Solution BACKUS ([facility]) Ciprofloxacin 250 MG Oral Tablet ciprofl oxacin 250 mg tablet TK 1 T PO D FOR 5 DAYS FOR SYMPTOMS OF URINARY TRACT INFECTION ciprofloxacin 250 mg tablet TK 1 T PO D FOR 5 DAYS FOR SYMPTOMS OF URINARY TRACT INFECTION completed ciprofloxacin 250 MG Oral Tablet BACKUS ([facility]) Levofloxacin 250 MG Oral Tablet levofloxacin 250 mg ta blet levofloxacin 250 mg tablet completed levofloxacin 25 0 MG Oral Tablet BACKUS ([facility]) Lactulose 667 MG/ML Oral Solution [Enulo se] Enulose 10 gram/15 mL oral solution TK 30ML PO BID FOR CONSTIPATION Enulose 10 gram/15 mL oral solution TK 3 0ML PO BID FOR CONSTIPATION completed lactulose 667 MG/ML Oral Solution [Enulose] BACKUS ([facility]) Albuterol 0.83 MG/ML Inhalant Solution a lbuterol sulfate 2.5 mg/3 mL (0.083 %) solution for nebulization VVN Q 4 TO 6 H PRF WHZ OR SOB albuterol sulfate 2.5 mg/3 mL (0.083 %) solution for nebulization VVN Q 4 TO 6 H PRF WHZ OR SOB completed albuterol 0.83 MG/ML Inhalation Solution ETHAN ([facility]) Metoclopramide 10 MG Oral Tablet metoclo pramide 10 mg tablet TK 1 T PO Q 6 H PRN N metoclopramide 10 mg tablet TK 1 T PO Q 6 H PRN N completed metoclopramide 10 MG Oral Tablet ETHAN ([facility]) 0.5 ML dulaglutide 1.5 MG/ML Auto-Inject or [Trulicity] Trulicity 0.75 mg/0.5 mL subcutaneous pen injector INJ 0.75MG SC WEEKLY Trulicity 0.75 mg/0.5 mL subcutaneous pen injector INJ 0.75MG SC WEEKLY completed 0.5 ML dulaglutide 1.5 MG/ML Auto-Injector [Trulicity] BACKUS ([facility]) NITROFURANTOIN, MACROCRYSTALS 25 MG / Ni trofurantoin, Monohydrate 75 MG Oral Capsule nitrofurantoin monohydrate/macrocrystals 100 mg capsule TK 1 C PO BID nitrofurantoin monohydrate/macrocrystals 100 mg capsule TK 1 C PO BID completed nitrofurantoin, macrocrystals 25 MG / nitrofurantoin, monohydrate 75 MG Oral Capsule ETHAN ([facility]) cefdinir 300 MG Oral Capsule cefdinir 30 0 mg capsule TAKE 1 CAPSULE BY MOUTH EVERY 12 HOURS FOR 10 DAYS cefdinir 300 mg capsule TAKE 1 CAPSULE B Y MOUTH EVERY 12 HOURS FOR 10 DAYS completed cefdinir 300 MG Oral Capsule ETHAN ([facility]) Dicyclomine Hydrochloride 10 MG Oral Cap zahra dicyclomine 10 mg capsule TK 1 C PO Q 6 H PRF IRRITABLE BOWEL SYNDROME dicyclomine 10 mg capsule TK 1 C PO Q 6 H PRF IRRITABLE BOWEL SYNDROME completed dicyclomine hydrochloride 10 MG Oral Capsule ETHAN ([facility]) sitagliptin 50 MG Oral Tablet [Januvia] Januvia 50 mg tablet Januvia 50 mg tablet completed sitagliptin 50 MG Oral Tablet [Januvia] ETHAN ([facility]) Dexamethasone 1 MG Oral Tablet dexamethasone 1 mg tabl et dexamethasone 1 mg tablet completed dexamethasone 1 MG Oral Tablet ETHAN ([facility]) Fluoxetine 10 MG Oral Capsule fluoxetine 10 mg capsule TK 1 C PO QD fluoxetine 10 mg capsule TK 1 C PO QD completed fluoxetine 10 MG Oral Capsule ETHAN ([facility]) Dexamethasone 1 MG Oral Tablet dexamethasone 1 mg tabl et dexamethasone 1 mg tablet completed dexamethasone 1 MG Oral Tablet BACKUS ([facility]) gabapentin 800 MG Oral Tablet gabapentin 800 mg tablet TAKE 1 TABLET BY MOUTH THREE TIMES DAILY gabapentin 800 mg tablet TAKE 1 TABLET B Y MOUTH THREE TIMES DAILY completed gabapentin 800 M G Oral Tablet ETHAN ([facility]) Fluoxetine 10 MG Oral Capsule fluoxetine 10 mg capsule TK 1 C PO QD fluoxetine 10 mg capsule TK 1 C PO QD completed fluoxetine 10 MG Oral Capsule BACKUS ([facility]) 0.5 ML dulaglutide 3 MG/ML Auto-Injector [Trulicity] Trulicity 1.5 mg/0.5 mL subcutaneous pen injector INJECT SQ ONCE WEEKLY Trulicity 1.5 mg/0.5 mL subcutaneous pen injector INJECT SQ ONCE WEEKLY completed 0.5 ML dulaglutide 3 MG/ML Auto-Injector [Trulicity] BACKUS ([facility]) Omeprazole 40 MG Delayed Release Oral Ca psule omeprazole 40 mg capsule,delayed release TK ONE C PO QD omeprazole 40 mg capsule,delayed release TK ONE C PO Q D completed omeprazole 40 MG Delayed Release Oral Capsule BACKUS ([facility]) Glyburide 5 MG Oral Tablet glyburide 5 mg tablet glyburide 5 mg tablet completed glyburide 5 MG Oral Table t BACKUS ([facility]) NITROFURANTOIN, MACROCRYSTALS 25 MG / Ni trofurantoin, Monohydrate 75 MG Oral Capsule nitrofurantoin monohydrate/macrocrystals 100 mg capsule TK 1 C PO BID nitrofurantoin monohydrate/macrocrystals 100 mg capsule TK 1 C PO BID completed nitrofurantoin, macrocrystals 25 MG / nitrofurantoin, monohydrate 75 MG Oral Capsule BACKUS ([facility]) Sertraline 25 MG Oral Tablet sertraline 25 mg tablet T K 1 T PO QD sertraline 25 mg tablet TK 1 T PO QD completed sertraline 25 MG Oral Tablet ETHAN ([facility]) meloxicam 15 MG Oral Tablet meloxicam 15 mg tablet TK 1 T PO D meloxicam 15 mg tablet TK 1 T PO D completed edgar oxicam 15 MG Oral Tablet ETHAN ([facility]) Dicyclomine Hydrochloride 10 MG Oral Cap zahra dicyclomine 10 mg capsule TK 1 C PO Q 6 H PRF IRRITABLE BOWEL SYNDROME dicyclomine 10 mg capsule TK 1 C PO Q 6 H PRF IRRITABLE BOWEL SYNDROME completed dicyclomine hydrochloride 10 MG Oral Capsule ETHAN ([facility]) Simethicone 180 MG Oral Capsule Gas Reli ef (simethicone) 180 mg capsule TK ONE C PO TID Gas Relief (simethicone) 180 mg capsule TK ONE C PO TID completed simethicone 180 MG Oral Capsule ETHAN ([facility]) 0.5 ML dulaglutide 1.5 MG/ML Auto-Inject or [Trulicity] Trulicity 0.75 mg/0.5 mL subcutaneous pen injector INJ 0.75MG SC WEEKLY Trulicity 0.75 mg/0.5 mL subcutaneous pen injector INJ 0.75MG SC WEEKLY completed 0.5 ML dulaglutide 1.5 MG/ML Auto-Injector [Trulicity] ETHAN ([facility]) Dicyclomine Hydrochloride 10 MG Oral Cap zahra dicyclomine 10 mg capsule TK 1 C PO Q 6 H PRF IRRITABLE BOWEL SYNDROME dicyclomine 10 mg capsule TK 1 C PO Q 6 H PRF IRRITABLE BOWEL SYNDROME completed dicyclomine hydrochloride 10 MG Oral Capsule ETHAN ([facility]) Sertraline 50 MG Oral Tablet sertraline 50 mg tablet T K 1 T PO D IN THE MORNING sertraline 50 mg tablet TK 1 T PO D IN THE MORNING completed sertraline 50 MG Oral Tablet ETHAN ([facility]) Sertraline 100 MG Oral Tablet sertraline 100 mg tablet TAKE 1 TABLET BY MOUTH DAILY sertraline 100 mg tablet TAKE 1 TABLET BY MOUTH DAILY completed sertraline 100 MG Oral Tablet AT [facility] ([facility]) Dicyclomine Hydrochloride 10 MG Oral Cap zahra dicyclomine 10 mg capsule TK 1 C PO Q 6 H PRF IRRITABLE BOWEL SYNDROME dicyclomine 10 mg capsule TK 1 C PO Q 6 H PRF IRRITABLE BOWEL SYNDROME completed dicyclomine hydrochloride 10 MG Oral Capsule ETHAN ([facility]) Ciprofloxacin 250 MG Oral Tablet ciprofl oxacin 250 mg tablet TK 1 T PO D FOR 5 DAYS FOR SYMPTOMS OF URINARY TRACT INFECTION ciprofloxacin 250 mg tablet TK 1 T PO D FOR 5 DAYS FOR SYMPTOMS OF URINARY TRACT INFECTION completed ciprofloxacin 250 MG Oral Tablet ETHAN ([facility]) albuterol sulfate HFA 90 mcg/actuation a erosol inhaler INHALE 2 PUFFS BY MOUTH EVERY 4 HOURS NEEDED FOR WHEEZING OR SHORTNESS OF BREATH [id number] completed [id number] 200 ACTUAT albuterol 0.09 MG/ACTUAT Metered Dose Inhaler BACKUS ([facility]) gabapentin 600 MG Oral Tablet gabapentin 600 mg tablet TK 1 T PO TID gabapentin 600 mg tablet TK 1 T PO TID completed gabapentin 600 MG Oral Tablet BACKUS ([facility]) Simethicone 180 MG Oral Capsule Gas Reli ef (simethicone) 180 mg capsule TK ONE C PO TID Gas Relief (simethicone) 180 mg capsule TK ONE C PO TID completed simethicone 180 MG Oral Capsule BACKUS ([facility]) Sertraline 100 MG Oral Tablet sertraline 100 mg tablet TAKE 1 TABLET BY MOUTH DAILY sertraline 100 mg tablet TAKE 1 TABLET BY MOUTH DAILY completed sertraline 100 MG Oral Tablet AT [facility]) Ciprofloxacin 3 MG/ML Ophthalmic Solutio n ciprofloxacin 0.3 % eye drops INSTILL 1 DROP INTO AFFECTED EYE/S 2 TIMES PER DAY FOR 5 DAYS ciprofloxacin 0.3 % eye drops INSTILL 1 DROP INTO AFFECTED EYE/S 2 TIMES PER DAY FOR 5 DAYS completed ciprofloxacin 3 MG/ML Ophthalmic Solution BACKUS ([facility]) Ciprofloxacin 250 MG Oral Tablet ciprofl oxacin 250 mg tablet TK 1 T PO D FOR 5 DAYS FOR SYMPTOMS OF URINARY TRACT INFECTION ciprofloxacin 250 mg tablet TK 1 T PO D FOR 5 DAYS FOR SYMPTOMS OF URINARY TRACT INFECTION completed ciprofloxacin 250 MG Oral Tablet BACKUS ([facility]) Acetaminophen 500 MG Oral Tablet acetami nophen 500 mg tablet TAKE 2 TABS BY MOUTH EVERY 6 HOURS NEEDED FOR PAIN & FEVER. acetaminophen 500 mg tablet TAKE 2 TABS BY MOUTH EVERY 6 HOURS NEEDED FOR PAIN & FEVER. completed acetaminophen 500 MG Oral Tablet BACKUS ([facility]) silver sulfadiazine 10 MG/ML Topical Cre am [SSD] SSD 1 % topical cream BRIANA TOPICALLY AA BID SSD 1 % topical cream BRIANA TOPICALLY AA BID completed silver sulfadiazine 10 MG/ML Top ical Cream [SSD] BACKUS ([facility]) ferrous sulfate 325 MG Oral Tablet martina us sulfate 325 mg (65 mg iron) tablet TK 1 T PO QD ferrous sulfate 325 mg (65 mg iron) tablet TK 1 T PO QD completed ferrous sulfate 325 MG Oral Tabl et BACKUS ([facility]) Sertraline 50 MG Oral Tablet sertraline 50 mg tablet T K 1 T PO D IN THE MORNING sertraline 50 mg tablet TK 1 T PO D IN THE MORNING completed sertraline 50 MG Oral Tablet ETHAN ([facility]) Simethicone 180 MG Oral Capsule Gas Reli ef (simethicone) 180 mg capsule TK ONE C PO TID Gas Relief (simethicone) 180 mg capsule TK ONE C PO TID completed simethicone 180 MG Oral Capsule BACKUS ([facility]) Glyburide 5 MG Oral Tablet glyburide 5 mg tablet glyburide 5 mg tablet completed glyburide 5 MG Oral Table t BACKUS ([facility]) Fluoxetine 10 MG Oral Capsule fluoxetine 10 mg capsule TK 1 C PO QD fluoxetine 10 mg capsule TK 1 C PO QD completed fluoxetine 10 MG Oral Capsule BACKUS ([facility]) Dicyclomine Hydrochloride 10 MG Oral Cap zahra dicyclomine 10 mg capsule TK 1 C PO Q 6 H PRF IRRITABLE BOWEL SYNDROME dicyclomine 10 mg capsule TK 1 C PO Q 6 H PRF IRRITABLE BOWEL SYNDROME completed dicyclomine hydrochloride 10 MG Oral Capsule ETHAN ([facility]) Ciprofloxacin 250 MG Oral Tablet ciprofl oxacin 250 mg tablet TK 1 T PO D FOR 5 DAYS FOR SYMPTOMS OF URINARY TRACT INFECTION ciprofloxacin 250 mg tablet TK 1 T PO D FOR 5 DAYS FOR SYMPTOMS OF URINARY TRACT INFECTION completed ciprofloxacin 250 MG Oral Tablet BACKUS ([facility]) Omeprazole 40 MG Delayed Release Oral Ca psule omeprazole 40 mg capsule,delayed release TK ONE C PO QD omeprazole 40 mg capsule,delayed release TK ONE C PO Q D completed omeprazole 40 MG Delayed Release Oral Capsule BACKUS ([facility]) Simethicone 180 MG Oral Capsule Gas Reli ef (simethicone) 180 mg capsule TK ONE C PO TID Gas Relief (simethicone) 180 mg capsule TK ONE C PO TID completed simethicone 180 MG Oral Capsule ETHAN ([facility]) Levofloxacin 250 MG Oral Tablet levofloxacin 250 mg ta blet levofloxacin 250 mg tablet completed levofloxacin 25 0 MG Oral Tablet ETHAN ([facility]) Metronidazole 500 MG Oral Tablet metroni dazole 500 mg tablet TK 1 T PO TID FOR 7 DAYS metronidazole 500 mg tablet TK 1 T PO TID FOR 7 DAYS completed metronidazole 500 MG Oral Tablet ETHAN ([facility]) Metronidazole 0.0075 MG/MG Vaginal Gel m etronidazole 0.75 % vaginal gel INSERT 1 APPLICATION VAGINALLY AT BEDTIME FOR 7 DAYS metronidazole 0.75 % vaginal gel INSERT 1 APPLICATION VAGINALLY AT BEDTIME FOR 7 DAYS completed metronidazole 0.0075 MG/MG Vaginal Gel ETHAN ([facility]) Fluoxetine 10 MG Oral Capsule fluoxetine 10 mg capsule TK 1 C PO QD fluoxetine 10 mg capsule TK 1 C PO QD completed fluoxetine 10 MG Oral Capsule ETHAN ([facility]) gabapentin 600 MG Oral Tablet gabapentin 600 mg tablet TK 1 T PO TID gabapentin 600 mg tablet TK 1 T PO TID completed gabapentin 600 MG Oral Tablet ETHAN ([facility]) Sertraline 50 MG Oral Tablet sertraline 50 mg tablet T K 1 T PO D IN THE MORNING sertraline 50 mg tablet TK 1 T PO D IN THE MORNING completed sertraline 50 MG Oral Tablet ETHAN ([facility]) Metronidazole 0.0075 MG/MG Vaginal Gel m etronidazole 0.75 % vaginal gel INSERT 1 APPLICATION VAGINALLY AT BEDTIME FOR 7 DAYS metronidazole 0.75 % vaginal gel INSERT 1 APPLICATION VAGINALLY AT BEDTIME FOR 7 DAYS completed metronidazole 0.0075 MG/MG Vaginal Gel ETHAN ([facility]) Sulfamethoxazole 800 MG / Trimethoprim 1 60 MG Oral Tablet sulfamethoxazole 800 mg-trimethoprim 160 mg tablet TAKE 1 TABLET BY MOUTH TWICE A DAY FOR 7 DAYS sulfamethoxazole 800 mg-trimethoprim 160 mg tablet TAKE 1 TABLET BY MOUTH TWICE A DAY FOR 7 DAYS completed sulfamethoxazole 800 MG / trimethoprim 160 MG Oral Tablet ETHAN ([facility]) Acetaminophen 500 MG Oral Tablet acetami nophen 500 mg tablet TAKE 2 TABS BY MOUTH EVERY 6 HOURS NEEDED FOR PAIN & FEVER. acetaminophen 500 mg tablet TAKE 2 TABS BY MOUTH EVERY 6 HOURS NEEDED FOR PAIN & FEVER. completed acetaminophen 500 MG Oral Tablet BACKUS ([facility]) Albuterol 0.83 MG/ML Inhalant Solution a lbuterol sulfate 2.5 mg/3 mL (0.083 %) solution for nebulization VVN Q 4 TO 6 H PRF WHZ OR SOB albuterol sulfate 2.5 mg/3 mL (0.083 %) solution for nebulization VVN Q 4 TO 6 H PRF WHZ OR SOB completed albuterol 0.83 MG/ML Inhalation Solution BACKUS ([facility]) silver sulfadiazine 10 MG/ML Topical Cre am [SSD] SSD 1 % topical cream BRIANA TOPICALLY AA BID SSD 1 % topical cream BRIANA TOPICALLY AA BID completed silver sulfadiazine 10 MG/ML Top ical Cream [SSD] BACKUS ([facility]) Omeprazole 40 MG Delayed Release Oral Ca psule omeprazole 40 mg capsule,delayed release TK ONE C PO QD omeprazole 40 mg capsule,delayed release TK ONE C PO Q D completed omeprazole 40 MG Delayed Release Oral Capsule BACKUS ([facility]) meloxicam 15 MG Oral Tablet meloxicam 15 mg tablet TK 1 T PO D meloxicam 15 mg tablet TK 1 T PO D completed edgar oxicam 15 MG Oral Tablet BACKUS ([facility]) Ciprofloxacin 3 MG/ML Ophthalmic Solutio n ciprofloxacin 0.3 % eye drops INSTILL 1 DROP INTO AFFECTED EYE/S 2 TIMES PER DAY FOR 5 DAYS ciprofloxacin 0.3 % eye drops INSTILL 1 DROP INTO AFFECTED EYE/S 2 TIMES PER DAY FOR 5 DAYS completed ciprofloxacin 3 MG/ML Ophthalmic Solution BACKUS ([facility]) gabapentin 800 MG Oral Tablet gabapentin 800 mg tablet TAKE 1 TABLET BY MOUTH THREE TIMES DAILY gabapentin 800 mg tablet TAKE 1 TABLET B Y MOUTH THREE TIMES DAILY completed gabapentin 800 M G Oral Tablet [facility]) Sertraline 100 MG Oral Tablet sertraline 100 mg tablet TAKE 1 TABLET BY MOUTH DAILY sertraline 100 mg tablet TAKE 1 TABLET BY MOUTH DAILY completed sertraline 100 MG Oral Tablet AT [facility]) Sulfamethoxazole 800 MG / Trimethoprim 1 60 MG Oral Tablet sulfamethoxazole 800 mg-trimethoprim 160 mg tablet TAKE 1 TABLET BY MOUTH TWICE A DAY FOR 7 DAYS sulfamethoxazole 800 mg-trimethoprim 160 mg tablet TAKE 1 TABLET BY MOUTH TWICE A DAY FOR 7 DAYS completed sulfamethoxazole 800 MG / trimethoprim 160 MG Oral Tablet ETHAN ([facility]) Sertraline 50 MG Oral Tablet sertraline 50 mg tablet T K 1 T PO D IN THE MORNING sertraline 50 mg tablet TK 1 T PO D IN THE MORNING completed sertraline 50 MG Oral Tablet BACKUS ([facility]) canagliflozin 100 MG Oral Tablet [Invokana] Invokana 1 00 mg tablet Invokana 100 mg tablet completed canagliflozi n 100 MG Oral Tablet [Invokana] BACKUS ([facility]) Metronidazole 0.0075 MG/MG Vaginal Gel m etronidazole 0.75 % vaginal gel INSERT 1 APPLICATION VAGINALLY AT BEDTIME FOR 7 DAYS metronidazole 0.75 % vaginal gel INSERT 1 APPLICATION VAGINALLY AT BEDTIME FOR 7 DAYS completed metronidazole 0.0075 MG/MG Vaginal Gel BACKUS ([facility]) Dicyclomine Hydrochloride 10 MG Oral Cap zahra dicyclomine 10 mg capsule TK 1 C PO Q 6 H PRF IRRITABLE BOWEL SYNDROME dicyclomine 10 mg capsule TK 1 C PO Q 6 H PRF IRRITABLE BOWEL SYNDROME completed dicyclomine hydrochloride 10 MG Oral Capsule BACKUS ([facility]) meloxicam 15 MG Oral Tablet meloxicam 15 mg tablet TK 1 T PO D meloxicam 15 mg tablet TK 1 T PO D completed edgar oxicam 15 MG Oral Tablet BACKUS ([facility]) 0.5 ML dulaglutide 1.5 MG/ML Auto-Inject or [Trulicity] Trulicity 0.75 mg/0.5 mL subcutaneous pen injector INJ 0.75MG SC WEEKLY Trulicity 0.75 mg/0.5 mL subcutaneous pen injector INJ 0.75MG SC WEEKLY completed 0.5 ML dulaglutide 1.5 MG/ML Auto-Injector [Trulicity] ETHAN ([facility]) 0.5 ML dulaglutide 1.5 MG/ML Auto-Inject or [Trulicity] Trulicity 0.75 mg/0.5 mL subcutaneous pen injector INJ 0.75MG SC WEEKLY Trulicity 0.75 mg/0.5 mL subcutaneous pen injector INJ 0.75MG SC WEEKLY completed 0.5 ML dulaglutide 1.5 MG/ML Auto-Injector [Trulicity] BACKUS ([facility]) Omeprazole 40 MG Delayed Release Oral Ca psule omeprazole 40 mg capsule,delayed release TK ONE C PO QD omeprazole 40 mg capsule,delayed release TK ONE C PO Q D completed omeprazole 40 MG Delayed Release Oral Capsule BACKUS ([facility]) NITROFURANTOIN, MACROCRYSTALS 25 MG / Ni trofurantoin, Monohydrate 75 MG Oral Capsule nitrofurantoin monohydrate/macrocrystals 100 mg capsule TK 1 C PO BID nitrofurantoin monohydrate/macrocrystals 100 mg capsule TK 1 C PO BID completed nitrofurantoin, macrocrystals 25 MG / nitrofurantoin, monohydrate 75 MG Oral Capsule ETHAN ([facility]) gabapentin 800 MG Oral Tablet gabapentin 800 mg tablet TAKE 1 TABLET BY MOUTH THREE TIMES DAILY gabapentin 800 mg tablet TAKE 1 TABLET B Y MOUTH THREE TIMES DAILY completed gabapentin 800 M G Oral Tablet ETHAN ([facility]) ferrous sulfate 325 MG Oral Tablet martina us sulfate 325 mg (65 mg iron) tablet TK 1 T PO QD ferrous sulfate 325 mg (65 mg iron) tablet TK 1 T PO QD completed ferrous sulfate 325 MG Oral Tabl et ETHAN ([facility]) gabapentin 600 MG Oral Tablet gabapentin 600 mg tablet TK 1 T PO TID gabapentin 600 mg tablet TK 1 T PO TID completed gabapentin 600 MG Oral Tablet ETHAN ([facility]) Sertraline 25 MG Oral Tablet sertraline 25 mg tablet T K 1 T PO QD sertraline 25 mg tablet TK 1 T PO QD completed sertraline 25 MG Oral Tablet ETHAN ([facility]) 0.5 ML dulaglutide 3 MG/ML Auto-Injector [Trulicity] Trulicity 1.5 mg/0.5 mL subcutaneous pen injector INJECT SQ ONCE WEEKLY Trulicity 1.5 mg/0.5 mL subcutaneous pen injector INJECT SQ ONCE WEEKLY completed 0.5 ML dulaglutide 3 MG/ML Auto-Injector [Trulicity] ETHAN ([facility]) 0.5 ML dulaglutide 1.5 MG/ML Auto-Inject or [Trulicity] Trulicity 0.75 mg/0.5 mL subcutaneous pen injector INJ 0.75MG SC WEEKLY Trulicity 0.75 mg/0.5 mL subcutaneous pen injector INJ 0.75MG SC WEEKLY completed 0.5 ML dulaglutide 1.5 MG/ML Auto-Injector [Trulicity] BACKUS ([facility]) albuterol sulfate HFA 90 mcg/actuation a erosol inhaler INHALE 2 PUFFS BY MOUTH EVERY 4 HOURS NEEDED FOR WHEEZING OR SHORTNESS OF BREATH [id number] completed [id number] 200 ACTUAT albuterol 0.09 MG/ACTUAT Metered Dose Inhaler BACKUS ([facility]) Clindamycin 300 MG Oral Capsule clindamycin HCl 300 mg capsule clindamycin HCl 300 mg capsule completed clindam ycin 300 MG Oral Capsule BACKUS ([facility]) NITROFURANTOIN, MACROCRYSTALS 25 MG / Ni trofurantoin, Monohydrate 75 MG Oral Capsule nitrofurantoin monohydrate/macrocrystals 100 mg capsule TK 1 C PO BID nitrofurantoin monohydrate/macrocrystals 100 mg capsule TK 1 C PO BID completed nitrofurantoin, macrocrystals 25 MG / nitrofurantoin, monohydrate 75 MG Oral Capsule BACKUS ([facility]) Dicyclomine Hydrochloride 10 MG Oral Cap zahra dicyclomine 10 mg capsule TK 1 C PO Q 6 H PRF IRRITABLE BOWEL SYNDROME dicyclomine 10 mg capsule TK 1 C PO Q 6 H PRF IRRITABLE BOWEL SYNDROME completed dicyclomine hydrochloride 10 MG Oral Capsule BACKUS ([facility]) Sertraline 100 MG Oral Tablet sertraline 100 mg tablet TAKE 1 TABLET BY MOUTH DAILY sertraline 100 mg tablet TAKE 1 TABLET BY MOUTH DAILY completed sertraline 100 MG Oral Tablet AT [facility] ([facility]) Sulfamethoxazole 800 MG / Trimethoprim 1 60 MG Oral Tablet sulfamethoxazole 800 mg-trimethoprim 160 mg tablet TAKE 1 TABLET BY MOUTH TWICE A DAY FOR 7 DAYS sulfamethoxazole 800 mg-trimethoprim 160 mg tablet TAKE 1 TABLET BY MOUTH TWICE A DAY FOR 7 DAYS completed sulfamethoxazole 800 MG / trimethoprim 160 MG Oral Tablet ETHNA ([facility]) Fluoxetine 10 MG Oral Capsule fluoxetine 10 mg capsule TK 1 C PO QD fluoxetine 10 mg capsule TK 1 C PO QD completed fluoxetine 10 MG Oral Capsule ETHAN ([facility]) pregabalin 50 MG Oral Capsule pregabalin 50 mg capsule TAKE 1 CAPSULE BY MOUTH TWICE A DAY pregabalin 50 mg capsule TAKE 1 CAPSULE BY MOUTH TWICE A DAY completed pregabalin 50 MG Ora l Capsule ETHAN ([facility]) Lisinopril 5 MG Oral Tablet lisinopril 5 mg tablet TAKE 2 TABLETS BY MOUTH DAILY lisinopril 5 mg tablet TAKE 2 TABLETS BY MOUTH DAILY completed lisinopril 5 MG Oral Tablet ETHAN ([facility]) Fluoxetine 10 MG Oral Capsule fluoxetine 10 mg capsule TK 1 C PO QD fluoxetine 10 mg capsule TK 1 C PO QD completed fluoxetine 10 MG Oral Capsule ETHAN ([facility]) Omeprazole 40 MG Delayed Release Oral Ca psule omeprazole 40 mg capsule,delayed release TK ONE C PO QD omeprazole 40 mg capsule,delayed release TK ONE C PO Q D completed omeprazole 40 MG Delayed Release Oral Capsule ETHAN ([facility]) 0.5 ML dulaglutide 1.5 MG/ML Auto-Inject or [Trulicity] Trulicity 0.75 mg/0.5 mL subcutaneous pen injector INJ 0.75MG SC WEEKLY Trulicity 0.75 mg/0.5 mL subcutaneous pen injector INJ 0.75MG SC WEEKLY completed 0.5 ML dulaglutide 1.5 MG/ML Auto-Injector [Trulicity] ETHAN ([facility]) Metronidazole 0.0075 MG/MG Vaginal Gel m etronidazole 0.75 % vaginal gel INSERT 1 APPLICATION VAGINALLY AT BEDTIME FOR 7 DAYS metronidazole 0.75 % vaginal gel INSERT 1 APPLICATION VAGINALLY AT BEDTIME FOR 7 DAYS completed metronidazole 0.0075 MG/MG Vaginal Gel ETHAN ([facility]) Metronidazole 500 MG Oral Tablet metroni dazole 500 mg tablet TK 1 T PO TID FOR 7 DAYS metronidazole 500 mg tablet TK 1 T PO TID FOR 7 DAYS completed metronidazole 500 MG Oral Tablet ETHAN ([facility]) Fluoxetine 10 MG Oral Capsule fluoxetine 10 mg capsule TK 1 C PO QD fluoxetine 10 mg capsule TK 1 C PO QD completed fluoxetine 10 MG Oral Capsule ETHAN ([facility]) Metoclopramide 10 MG Oral Tablet metoclo pramide 10 mg tablet TK 1 T PO Q 6 H PRN N metoclopramide 10 mg tablet TK 1 T PO Q 6 H PRN N completed metoclopramide 10 MG Oral Tablet ETHAN ([facility]) Fluoxetine 10 MG Oral Capsule fluoxetine 10 mg capsule TK 1 C PO QD fluoxetine 10 mg capsule TK 1 C PO QD completed fluoxetine 10 MG Oral Capsule ETHAN ([facility]) Ciprofloxacin 250 MG Oral Tablet ciprofl oxacin 250 mg tablet TK 1 T PO D FOR 5 DAYS FOR SYMPTOMS OF URINARY TRACT INFECTION ciprofloxacin 250 mg tablet TK 1 T PO D FOR 5 DAYS FOR SYMPTOMS OF URINARY TRACT INFECTION completed ciprofloxacin 250 MG Oral Tablet ETHAN ([facility]) Naproxen 500 MG Oral Tablet naproxen 500 mg tablet TAKE 1 TABLET BY MOUTH TWICE DAILY WITH MEALS naproxen 500 mg tablet TAKE 1 TABLET BY MOUTH TWICE DAILY WITH MEALS completed naproxen 500 MG Oral Tablet BACKUS ([facility]) albuterol sulfate HFA 90 mcg/actuation a erosol inhaler INHALE 2 PUFFS BY MOUTH EVERY 4 HOURS NEEDED FOR WHEEZING OR SHORTNESS OF BREATH [id number] completed [id number] 200 ACTUAT albuterol 0.09 MG/ACTUAT Metered Dose Inhaler BACKUS ([facility]) Metronidazole 500 MG Oral Tablet metroni dazole 500 mg tablet TK 1 T PO TID FOR 7 DAYS metronidazole 500 mg tablet TK 1 T PO TID FOR 7 DAYS completed metronidazole 500 MG Oral Tablet BACKUS ([facility]) Sertraline 25 MG Oral Tablet sertraline 25 mg tablet T K 1 T PO QD sertraline 25 mg tablet TK 1 T PO QD completed sertraline 25 MG Oral Tablet BACKUS ([facility]) meloxicam 15 MG Oral Tablet meloxicam 15 mg tablet TK 1 T PO D meloxicam 15 mg tablet TK 1 T PO D completed edgar oxicam 15 MG Oral Tablet BACKUS ([facility]) Sulfamethoxazole 800 MG / Trimethoprim 1 60 MG Oral Tablet sulfamethoxazole 800 mg-trimethoprim 160 mg tablet TAKE 1 TABLET BY MOUTH TWICE A DAY FOR 7 DAYS sulfamethoxazole 800 mg-trimethoprim 160 mg tablet TAKE 1 TABLET BY MOUTH TWICE A DAY FOR 7 DAYS completed sulfamethoxazole 800 MG / trimethoprim 160 MG Oral Tablet ETHAN ([facility]) Simethicone 180 MG Oral Capsule Gas Reli ef (simethicone) 180 mg capsule TK ONE C PO TID Gas Relief (simethicone) 180 mg capsule TK ONE C PO TID completed simethicone 180 MG Oral Capsule ETHAN ([facility]) Metronidazole 500 MG Oral Tablet metroni dazole 500 mg tablet TK 1 T PO TID FOR 7 DAYS metronidazole 500 mg tablet TK 1 T PO TID FOR 7 DAYS completed metronidazole 500 MG Oral Tablet ETHAN ([facility]) Dicyclomine Hydrochloride 10 MG Oral Cap zahra dicyclomine 10 mg capsule TK 1 C PO Q 6 H PRF IRRITABLE BOWEL SYNDROME dicyclomine 10 mg capsule TK 1 C PO Q 6 H PRF IRRITABLE BOWEL SYNDROME completed dicyclomine hydrochloride 10 MG Oral Capsule ETHAN ([facility]) 0.5 ML dulaglutide 1.5 MG/ML Auto-Inject or [Trulicity] Trulicity 0.75 mg/0.5 mL subcutaneous pen injector INJ 0.75MG SC WEEKLY Trulicity 0.75 mg/0.5 mL subcutaneous pen injector INJ 0.75MG SC WEEKLY completed 0.5 ML dulaglutide 1.5 MG/ML Auto-Injector [Trulicity] ETHAN ([facility]) 0.5 ML dulaglutide 1.5 MG/ML Auto-Inject or [Trulicity] Trulicity 0.75 mg/0.5 mL subcutaneous pen injector INJ 0.75MG SC WEEKLY Trulicity 0.75 mg/0.5 mL subcutaneous pen injector INJ 0.75MG SC WEEKLY completed 0.5 ML dulaglutide 1.5 MG/ML Auto-Injector [Trulicity] ETHAN ([facility]) NITROFURANTOIN, MACROCRYSTALS 25 MG / Ni trofurantoin, Monohydrate 75 MG Oral Capsule nitrofurantoin monohydrate/macrocrystals 100 mg capsule nitrofurantoin monohydrate/macrocrystals 100 mg capsule completed nitrofurantoin, macrocrystals 25 MG / nitrofurantoin, monohydrate 75 MG Oral Capsule ETHAN ([facility]) Metronidazole 500 MG Oral Tablet metroni dazole 500 mg tablet TK 1 T PO TID FOR 7 DAYS metronidazole 500 mg tablet TK 1 T PO TID FOR 7 DAYS completed metronidazole 500 MG Oral Tablet ETHAN ([facility]) Insurance Providers Payer name Policy type / Coverage type Policy ID Covered constitution party ID Covered constitution party's relationship to yun Policy Yun Plan Information Medicaid S [id number] S [id number] Managed Care - MVP P [id number] S [id number] Medicaid S [id number] S [id number] Medicaid S [id number] S [id number] MVP I [id number] Self [id number] MVP [id number] [id number] MVP [id number] Medicaid [id number] S [id number] Health Care Commercial Insurance Co. [id number] Self [id number] MVP [id number] [id number] SP [id number] [facility] [id number] SP [id number] [facility] [id number] SP [id number] [facility] COMMUNITY PLAN MCDO [id number] SP [id number] [facility] [id number] SP [id number] Managed Care - MVP P [id number] S [id number] Medicaid S [id number] S [id number] SELF PAY ONLY [id number] SP [id number] [place] [place] O [id number] SP [id number] [place] [place] HMO [id number] SP [id number] [employer] [place] 306/806 [id number] SP [id number] [place] [place] 306/806 [id number] SP [id number] [facility] Medicaid Commercial [id number] Self [id number] Self Pay P UNAVAILABLE S UNAVAILA BLE [facility] P [id number] S [id number] [facility] O [id number] S [id number] PMA MANAGEMENT [facility] [id number] SP [id number] OTHER WORKERS COMPENSATION [id number] SP [id number] [facility] PHY [id number] SP [id number] [facility] [id number] SP [id number] SELF PAY UNAVAILABLE SP UNAVAILA BLE SELF PAY [id number] SP [id number] MEDICAID [id number] SP [id number] [facility] [id number] SP [id number] [facility] [id number] SP [id number] [place] [id number] SP [id number] MEDICAID [id number] SP [id number] [facility] [id number] S [id number] [facility] O [id number] S [id number] [facility] [id number] SP [id number] [facility] [id number] SP [id number] [facility] [id number] SP [id number] Problems, Conditions, and Diagnoses Code Display Name Description Problem Type Effective Dates Data Source(s) F43.10 Post-traumatic stress disorder, unspecif ied Post-traumatic stress disorder, unspecif Diagnosis 08/26/2020 03:38:14 PM EDT [facility] E66.9 Obesity, unspecified Obesity, unspecified Diagnosis 08/26/2020 03:38:14 PM EDT [facility] E11.69 Type 2 diabetes mellitus with other spec ified complication Type 2 diabetes mellitus with other spec Diagnosis 08/26/2020 03:38:14 PM EDT [facility] R00.2 Palpitations Palpitations Diagnosis 08/26/2020 03:38:14 P M EDT [facility] I10 Essential (primary) hypertension Essential (primary) h ypertension Diagnosis 08/26/2020 03:38:14 PM EDT [facility] lab lab Diagnosis 06/29/2020 11:21:30 AM ED [facility] E04.1 Nontoxic single thyroid nodule Nontoxic single thyroid nodule Diagnosis 06/26/2020 06:10:56 PM EDT [facility] E66.9 Obesity, unspecified Obesity, unspecified Diagnosis 06/26/2020 06:10:17 PM T [facility] E11.69 Type 2 diabetes mellitus with other spec ified complication Type 2 diabetes mellitus with other specified complication Diagnosis 06:10:17 PM EDT [facility] 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 Other specified disorders of adrenal gland Diagnosis 06/26/2020 06:10:08 PM EDT [facility] E55.9 Vitamin D deficiency, unspecified Vitamin D defi ciency, unspecified Diagnosis 06/25/2020 02:33:11 PM EDT [facility] I10 Essential hypertension Essential hypertension [id number] 08/26/2020 12:00:00 AM EDT [facility] R00.2 Palpitations Palpitations [id number] 08/22/2020 12:00:00 A M EDT [facility] E04.1 Thyroid nodule Thyroid nodule [id number] 06/25/2020 12:00: 00 AM EDT [facility] F43.10 PTSD (post-traumatic stress disorder) PT SD (post-traumatic stress disorder) [id number] 06/25/2020 12:00:00 AM T [facility] Z79.4 Long-term insulin use Long-term insulin use [id number] 06/25/2020 12:00:00 AM EDT [facility] E11.40 Diabetic neuropathy associated with type 2 diabetes mellitus Diabetic neuropathy associated with type 2 diabetes mellitus [id number] 12:00:00 AM [facility] E11.69 Diabetes mellitus type 2 in obese Diabetes melli tus type 2 in obese [id number] 06/25/2020 12:00:00 AM T [facility] F32.9 Depression Depression [id number] 06/25/2020 12:00:00 AM ED [facility] F41.9 Anxiety Anxiety [id number] 06/25/2020 12:00:00 AM [facility] E27.8 Adrenal incidentaloma Adrenal incidentaloma [id number] 06/25/2020 12:00:00 AM T [facility] [id number] Gastroesophageal reflux disease without esophagitis Gastroesophageal Reflux Disease without Esophagitis Problem 02/26/2020 12:00:00 AM ERNESTO LONG ([facility]) [id number] Essential hypertension Essential Hypertension Problem 02/26/2020 12:00:00 AM EST ETHAN ([facility]) [id number] Gastroesophageal reflux disease without esophagitis Gastroesophageal Reflux Disease without Esophagitis Problem 02/26/2020 12:00:00 AM ES T ETHAN ([facility]) [id number] Essential hypertension Essential Hypertension Problem 02/26/2020 12:00:00 AM EST ETHAN ([facility]) [id number] Gastroesophageal reflux disease without esophagitis Gastroesophageal Reflux Disease without Esophagitis Problem 02/26/2020 12:00:00 AM ES T ETHAN ([facility]) [id number] Essential hypertension Essential Hypertension Problem 02/26/2020 12:00:00 AM EST ETHAN ([facility]) [id number] Gastroesophageal reflux disease without esophagitis Gastroesophageal Reflux Disease without Esophagitis Problem 02/26/2020 12:00:00 AM ES T ETHAN ([facility]) [id number] Essential hypertension Essential Hypertension Problem 02/26/2020 12:00:00 AM EST ETHAN ([facility]) [id number] Gastroesophageal reflux disease without esophagitis Gastroesophageal Reflux Disease without Esophagitis Problem 02/26/2020 12:00:00 AM ES T ETHAN ([facility]) [id number] Essential hypertension Essential Hypertension Problem 02/26/2020 12:00:00 AM EST ETHAN ([facility]) [id number] Gastroesophageal reflux disease without esophagitis Gastroesophageal Reflux Disease without Esophagitis Problem 02/26/2020 12:00:00 AM ES T ETHAN ([facility]) [id number] Essential hypertension Essential Hypertension Problem 02/26/2020 12:00:00 AM EST ETHAN ([facility]) [id number] Gastroesophageal reflux disease without esophagitis Gastroesophageal Reflux Disease without Esophagitis Problem 02/26/2020 12:00:00 AM ES T ETHAN ([facility]) [id number] Essential hypertension Essential Hypertension Problem 02/26/2020 12:00:00 AM EST ETHAN ([facility]) [id number] Gastroesophageal reflux disease without esophagitis Gastroesophageal Reflux Disease without Esophagitis Problem 02/26/2020 12:00:00 AM ES T ETHAN ([facility]) [id number] Essential hypertension Essential Hypertension Problem 02/26/2020 12:00:00 AM EST ETHAN ([facility]) [id number] Gastroesophageal reflux disease without esophagitis Gastroesophageal Reflux Disease without Esophagitis Problem 02/26/2020 12:00:00 AM ES T ETHAN ([facility]) [id number] Essential hypertension Essential Hypertension Problem 02/26/2020 12:00:00 AM EST ETHAN ([facility]) [id number] Gastroesophageal reflux disease without esophagitis Gastroesophageal Reflux Disease without Esophagitis Problem 02/26/2020 12:00:00 AM ES T ETHAN ([facility]) [id number] Essential hypertension Essential Hypertension Problem 02/26/2020 12:00:00 AM EST ETHAN ([facility]) [id number] Gastroesophageal reflux disease without esophagitis Gastroesophageal Reflux Disease without Esophagitis Problem 02/26/2020 12:00:00 AM ES T ETHAN ([facility]) [id number] Essential hypertension Essential Hypertension Problem 02/26/2020 12:00:00 AM EST ETHAN ([facility]) [id number] Gastroesophageal reflux disease without esophagitis Gastroesophageal Reflux Disease without Esophagitis Problem 02/26/2020 12:00:00 AM ES T ETHAN ([facility]) [id number] Essential hypertension Essential Hypertension Problem 02/26/2020 12:00:00 AM EST ETHAN ([facility]) [id number] Gastroesophageal reflux disease without esophagitis Gastroesophageal Reflux Disease without Esophagitis Problem 02/26/2020 12:00:00 AM ES T ETHAN ([facility]) [id number] Essential hypertension Essential Hypertension Problem 02/26/2020 12:00:00 AM EST ETHAN ([facility]) [id number] Gastroesophageal reflux disease without esophagitis Gastroesophageal Reflux Disease without Esophagitis Problem 02/26/2020 12:00:00 AM ES T ETHAN ([facility]) [id number] Essential hypertension Essential Hypertension Problem 02/26/2020 12:00:00 AM EST ETHAN ([facility]) [id number] Gastroesophageal reflux disease without esophagitis Gastroesophageal Reflux Disease without Esophagitis Problem 02/26/2020 12:00:00 AM ES T ETHAN ([facility]) [id number] Essential hypertension Essential Hypertension Problem 02/26/2020 12:00:00 AM EST ETHAN ([facility]) [id number] Depressive disorder Depressive Disorder Problem 1 04:44:15 PM EDT ETHAN ([facility]) [id number] Depressive disorder Depressive Disorder Problem 1 04:44:15 PM EDT ETHAN ([facility]) [id number] Depressive disorder Depressive Disorder Problem 1 04:44:15 PM EDT ETHAN ([facility]) [id number] Depressive disorder Depressive Disorder Problem 1 04:44:15 PM EDT ETHAN ([facility]) [id number] Depressive disorder Depressive Disorder Problem 1 04:44:15 PM EDT ETHAN ([facility]) [id number] Depressive disorder Depressive Disorder Problem 1 04:44:15 PM EDT ETHAN ([facility]) [id number] Depressive disorder Depressive Disorder Problem 1 04:44:15 PM EDT ETHAN ([facility]) [id number] Depressive disorder Depressive Disorder Problem 1 04:44:15 PM EDT ETHAN ([facility]) [id number] Depressive disorder Depressive Disorder Problem 1 04:44:15 PM EDT ETHAN ([facility] [facility] [id number] Depressive disorder Depressive Disorder Problem 1 04:44:15 PM EDT ETHAN ([facility] er) [id number] Depressive disorder Depressive Disorder Problem 1 04:44:15 PM EDT ETHAN ([facility] er) [id number] Depressive disorder Depressive Disorder Problem 1 04:44:15 PM EDT ETHAN ([facility] er) [id number] Depressive disorder Depressive Disorder Problem 1 04:44:15 PM EDT ETHAN ([facility] er) [id number] Depressive disorder Depressive Disorder Problem 1 04:44:15 PM EDT ETHAN ([facility] er) [id number] Depressive disorder Depressive Disorder Problem 1 04:44:15 PM EDT ETHAN ([facility]) [id number] SNOMED CT Concept SNOMED CT Concept Problem 12/24 04:44:15 PM EDT ETHAN ([facility] er) [id number] Depressive disorder Depressive Disorder Problem 1 04:44:15 PM EDT ETHAN ([facility] er) 530.81 Gastro-esophageal reflux disease without esophagitis Gastro-esophageal reflux disease without esophagitis 12/24/2019 10:52:08 AM ED T [facility] [id number] Finding of esophagus Finding of Esophagus Problem 12/24/2019 12:00:00 AM EDT - 04/29/2020 12:00:00 AM EST ETHAN ([facility] er) [id number] Finding of esophagus Finding of Esophagus Problem 12/24/2019 12:00:00 AM EDT - 04/29/2020 12:00:00 AM EST ETHAN ([facility] er) [id number] Finding of esophagus Finding of Esophagus Problem 12/24/2019 12:00:00 AM EDT - 04/29/2020 12:00:00 AM EST ETHAN ([facility] er) [id number] Finding of esophagus Finding of Esophagus Problem 12/24/2019 12:00:00 AM EDT - 04/29/2020 12:00:00 AM EST ETHAN ([facility] er) [id number] Finding of esophagus Finding of Esophagus Problem 12/24/2019 12:00:00 AM EDT - 04/29/2020 12:00:00 AM EST ETHAN ([facility] er) [id number] Finding of esophagus Finding of Esophagus Problem 12/24/2019 12:00:00 AM EDT - 04/29/2020 12:00:00 AM EST ETHAN ([facility] er) [id number] Finding of esophagus Finding of Esophagus Problem 12/24/2019 12:00:00 AM EDT - 04/29/2020 12:00:00 AM EST ETHAN ([facility] er) [id number] Finding of esophagus Finding of Esophagus Problem 12/24/2019 12:00:00 AM EDT - 04/29/2020 12:00:00 AM EST ETHAN ([facility] er) [id number] Finding of esophagus Finding of Esophagus Problem 12/24/2019 12:00:00 AM EDT - 04/29/2020 12:00:00 AM EST ETHAN ([facility] er) [id number] Finding of esophagus Finding of Esophagus Problem 12/24/2019 12:00:00 AM EDT - 04/29/2020 12:00:00 AM EST ETHAN ([facility] er) [id number] Finding of esophagus Finding of Esophagus Problem 12/24/2019 12:00:00 AM EDT - 04/29/2020 12:00:00 AM EST ETHAN ([facility] er) [id number] Finding of esophagus Finding of Esophagus Problem 12/24/2019 12:00:00 AM EDT - 04/29/2020 12:00:00 AM EST ETHAN ([facility] er) 786.05 Dyspnea Dyspnea 12/17/2019 03:55:42 PM ED T [facility] 788.41 Increased frequency of urination Increased frequency o f urination 12/17/2019 03:55:42 PM EDT [facility] [id number] COVID-19 COVID-19 12/17/2019 03:55:42 PM ED T [facility] [id number] COVID-19 Covid-19 Problem 12/17/2019 12:0 0:00 AM EDT - 09/20/2020 12:00:00 AM EDT BACKUS ([facility] er) [id number] Dyspnea Dyspnea Problem 12/17/2019 12:00:00 AM ED T BACK[facility] ([facility]) [id number] COVID-19 Covid-19 Problem 12/17/2019 12:0 0:00 AM EDT - 09/20/2020 12:00:00 AM EDT ETHAN ([facility] er) [id number] Dyspnea Dyspnea Problem 12/17/2019 12:00:00 AM ED T BACKUS ([facility]) [id number] COVID-19 Covid-19 Problem 12/17/2019 12:0 0:00 AM EDT - 09/20/2020 12:00:00 AM EDT ETHAN ([facility] er) [id number] Dyspnea Dyspnea Problem 12/17/2019 12:00:00 AM ED T BACKUS ([facility]) [id number] COVID-19 Covid-19 Problem 12/17/2019 12:00:00 AM ED T BACKUS ([facility]) [id number] Dyspnea Dyspnea Problem 12/17/2019 12:00:00 AM ED T ETHAN ([facility]) [id number] COVID-19 Covid-19 Problem 12/17/2019 12:00:00 AM ED T ETHAN ([facility]) 260686534 Dyspnea Dyspnea Problem 12/17/2019 12:00:00 AM ED T ETHAN ([facility]) [id number] COVID-19 Covid-19 Problem 12/17/2019 12:00:00 AM ED T ETHAN ([facility]) [id number] Dyspnea Dyspnea Problem 12/17/2019 12:00:00 AM ED T ETHAN ([facility]) 892683121 COVID-19 Covid-19 Problem 12/17/2019 12:00:00 AM ED T ETHAN ([facility]) [id number] Dyspnea Dyspnea Problem 12/17/2019 12:00:00 AM ED T ETHAN ([facility]) [id number] COVID-19 Covid-19 Problem 12/17/2019 12:00:00 AM ED T ETHAN ([facility]) [id number] Dyspnea Dyspnea Problem 12/17/2019 12:00:00 AM ED T ETHAN ([facility]) [id number] COVID-19 Covid-19 Problem 12/17/2019 12:00:00 AM ED T ETHAN ([facility]) [id number] Dyspnea Dyspnea Problem 12/17/2019 12:00:00 AM ED T ETHAN ([facility]) [id number] COVID-19 Covid-19 Problem 12/17/2019 12:00:00 AM ED T ETHAN ([facility]) [id number] Dyspnea Dyspnea Problem 12/17/2019 12:00:00 AM ED T ETHAN ([facility]) [id number] COVID-19 Covid-19 Problem 12/17/2019 12:00:00 AM ED T ETHAN ([facility]) [id number] Dyspnea Dyspnea Problem 12/17/2019 12:00:00 AM ED T ETHAN ([facility]) [id number] COVID-19 Covid-19 Problem 12/17/2019 12:00:00 AM ED T ETHAN ([facility]) 538771582 Dyspnea Dyspnea Problem 12/17/2019 12:00:00 AM ED T ETHAN ([facility]) 759842640 SNOMED CT Concept SNOMED CT Concept Problem 11/18 12:00:00 AM EDT - 04/29/2020 12:00:00 AM EST ETHAN ([facility] er) 517081739 Procedure by method Procedure by Method Problem 0 11/19/2019 12:00:00 AM EDT - 04/29/2020 12:00:00 AM EST ETHAN ([facility]) [id number] Finding of Mantoux test Finding of Mantoux Test Proble 11/19/2019 12:00:00 AM EDT - 04/29/2020 12:00:00 AM EST ETHAN ([facility]) 676911191 SNOMED CT Concept SNOMED CT Concept Problem 11/18 12:00:00 AM EDT - 04/29/2020 12:00:00 AM EST ETHAN ([facility]) [id number] Procedure by method Procedure by Method Problem 0 11/19/2019 12:00:00 AM EDT - 04/29/2020 12:00:00 AM EST ETHAN ([facility]) [id number] Finding of Mantoux test Finding of Mantoux Test Proble 11/19/2019 12:00:00 AM EDT - 04/29/2020 12:00:00 AM EST ETHAN ([facility]) [id number] SNOMED CT Concept SNOMED CT Concept Problem 11/18 12:00:00 AM EDT - 04/29/2020 12:00:00 AM EST ETHAN ([facility]) [id number] Procedure by method Procedure by Method Problem 0 11/19/2019 12:00:00 AM EDT - 04/29/2020 12:00:00 AM EST ETHAN ([facility]) [id number] Finding of Mantoux test Finding of Mantoux Test Proble 11/19/2019 12:00:00 AM EDT - 04/29/2020 12:00:00 AM EST ETHAN ([facility]) [id number] SNOMED CT Concept SNOMED CT Concept Problem 11/18 12:00:00 AM EDT - 04/29/2020 12:00:00 AM EST ETHAN ([facility]) [id number] Procedure by method Procedure by Method Problem 0 11/19/2019 12:00:00 AM EDT - 04/29/2020 12:00:00 AM EST ETHAN ([facility]) [id number] Finding of Mantoux test Finding of Mantoux Test Proble 11/19/2019 12:00:00 AM EDT - 04/29/2020 12:00:00 AM EST ETHAN ([facility]) [id number] SNOMED CT Concept SNOMED CT Concept Problem 11/18 12:00:00 AM EDT - 04/29/2020 12:00:00 AM EST ETHAN ([facility]) [id number] Procedure by method Procedure by Method Problem 0 11/19/2019 12:00:00 AM EDT - 04/29/2020 12:00:00 AM EST ETHAN ([facility] er) [id number] Finding of Mantoux test Finding of Mantoux Test Proble 11/19/2019 12:00:00 AM EDT - 04/29/2020 12:00:00 AM EST ETHAN ([facility]) [id number] SNOMED CT Concept SNOMED CT Concept Problem 11/18 12:00:00 AM EDT - 04/29/2020 12:00:00 AM EST ETHAN ([facility]) [id number] Procedure by method Procedure by Method Problem 0 11/19/2019 12:00:00 AM EDT - 04/29/2020 12:00:00 AM EST ETHAN ([facility]) [id number] Finding of Mantoux test Finding of Mantoux Test Proble 11/19/2019 12:00:00 AM EDT - 04/29/2020 12:00:00 AM EST ETHAN ([facility]) [id number] SNOMED CT Concept SNOMED CT Concept Problem 11/18 12:00:00 AM EDT - 04/29/2020 12:00:00 AM EST ETHAN ([facility]) [id number] Procedure by method Procedure by Method Problem 0 11/19/2019 12:00:00 AM EDT - 04/29/2020 12:00:00 AM EST ETHAN ([facility]) [id number] Finding of Mantoux test Finding of Mantoux Test Proble m 11/19/2019 12:00:00 AM EDT - 04/29/2020 12:00:00 AM EST ETHAN ([facility]) [id number] SNOMED CT Concept SNOMED CT Concept Problem 11/18 12:00:00 AM EDT - 04/29/2020 12:00:00 AM EST ETHAN ([facility]) [id number] Procedure by method Procedure by Method Problem 0 11/19/2019 12:00:00 AM EDT - 04/29/2020 12:00:00 AM EST ETHAN ([facility]) [id number] Finding of Mantoux test Finding of Mantoux Test Proble 11/19/2019 12:00:00 AM EDT - 04/29/2020 12:00:00 AM EST ETHAN ([facility]) [id number] SNOMED CT Concept SNOMED CT Concept Problem 11/18 12:00:00 AM EDT - 04/29/2020 12:00:00 AM EST ETHAN ([facility]) [id number] Procedure by method Procedure by Method Problem 0 11/19/2019 12:00:00 AM EDT - 04/29/2020 12:00:00 AM EST ETHAN ([facility]) [id number] Finding of Mantoux test Finding of Mantoux Test Proble 11/19/2019 12:00:00 AM EDT - 04/29/2020 12:00:00 AM EST ETHAN ([facility]) [id number] SNOMED CT Concept SNOMED CT Concept Problem 11/18 12:00:00 AM EDT - 04/29/2020 12:00:00 AM EST ETHAN ([facility]) [id number] Procedure by method Procedure by Method Problem 0 11/19/2019 12:00:00 AM EDT - 04/29/2020 12:00:00 AM EST ETHAN ([facility]) [id number] Finding of Mantoux test Finding of Mantoux Test Proble m 11/19/2019 12:00:00 AM EDT - 04/29/2020 12:00:00 AM EST ETHAN ([facility]) [id number] SNOMED CT Concept SNOMED CT Concept Problem 11/18 12:00:00 AM EDT - 04/29/2020 12:00:00 AM EST ETHAN ([facility]) [id number] Procedure by method Procedure by Method Problem 0 11/19/2019 12:00:00 AM EDT - 04/29/2020 12:00:00 AM EST ETHAN ([facility]) [id number] Finding of Mantoux test Finding of Mantoux Test Proble 11/19/2019 12:00:00 AM EDT - 04/29/2020 12:00:00 AM EST ETHAN ([facility]) [id number] SNOMED CT Concept SNOMED CT Concept Problem 11/18 12:00:00 AM EDT - 04/29/2020 12:00:00 AM EST ETHAN ([facility]) [id number] Procedure by method Procedure by Method Problem 0 11/19/2019 12:00:00 AM EDT - 04/29/2020 12:00:00 AM EST ETHAN ([facility]) [id number] Finding of Mantoux test Finding of Mantoux Test Proble 11/19/2019 12:00:00 AM EDT - 04/29/2020 12:00:00 AM EST ETHAN ([facility]) [id number] 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 Problem 10/31/2019 12:00:00 AM EDT - 04/29/2020 12:00:00 AM EST ETHAN ([facility]) [id number] 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 Problem 10/31/2019 12:00:00 AM EDT - 04/29/2020 12:00:00 AM EST ETHAN ([facility]) [id number] 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 Problem 10/31/2019 12:00:00 AM EDT - 04/29/2020 12:00:00 AM EST ETHAN ([facility] er) [id number] 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 Problem 10/31/2019 12:00:00 AM EDT - 04/29/2020 12:00:00 AM EST ETHAN ([facility] er) [id number] 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 Problem 10/31/2019 12:00:00 AM EDT - 04/29/2020 12:00:00 AM EST ETHAN ([facility]) [id number] 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 Problem 10/31/2019 12:00:00 AM EDT - 04/29/2020 12:00:00 AM EST ETHAN ([facility] er) [id number] 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 Problem 10/31/2019 12:00:00 AM EDT - 04/29/2020 12:00:00 AM EST ETHAN ([facility] er) [id number] 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 Problem 10/31/2019 12:00:00 AM EDT - 04/29/2020 12:00:00 AM EST ETHAN ([facility]) [id number] 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 Problem 10/31/2019 12:00:00 AM EDT - 04/29/2020 12:00:00 AM EST ETHAN ([facility]) 376146124 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 Problem 10/31/2019 12:00:00 AM EDT - 04/29/2020 12:00:00 AM EST ETHAN ([facility]) [id number] 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 Problem 10/31/2019 12:00:00 AM EDT - 04/29/2020 12:00:00 AM MAGNO LONG ([facility]) [id number] 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 Problem 10/31/2019 12:00:00 AM EDT - 04/29/2020 12:00:00 AM MAGNO LONG ([facility]) [id number] Breast neoplasm screening status Breast Neoplasm Screening Status Problem 09/30/2019 12:00:00 AM EDT - 04/29/2020 12:00:00 AM ERNESTO LONG ([facility]) [id number] SNOMED CT Concept SNOMED CT Concept Problem 09/29 12:00:00 AM EDT - 02/26/2020 12:00:00 AM MAGNO LONG ([facility]) [id number] Screening mammography Screening Mammography Problem 09/30/2019 12:00:00 AM EDT - 02/26/2020 12:00:00 AM MAGNO LONG ([facility]) [id number] Breast neoplasm screening status Breast Neoplasm Screening Status Problem 09/30/2019 12:00:00 AM EDT - 04/29/2020 12:00:00 AM ERNESTO LONG ([facility]) [id number] SNOMED CT Concept SNOMED CT Concept Problem 09/29 12:00:00 AM EDT - 02/26/2020 12:00:00 AM MAGNO LONG ([facility]) [id number] Screening mammography Screening Mammography Problem 09/30/2019 12:00:00 AM EDT - 02/26/2020 12:00:00 AM EST ETHAN ([facility]) [id number] Breast neoplasm screening status Breast Neoplasm Screening Status Problem 09/30/2019 12:00:00 AM EDT - 04/29/2020 12:00:00 AM ERNESTO LONG ([facility]) [id number] SNOMED CT Concept SNOMED CT Concept Problem 09/29 12:00:00 AM EDT - 02/26/2020 12:00:00 AM EST ETHAN ([facility]) [id number] Screening mammography Screening Mammography Problem 09/30/2019 12:00:00 AM EDT - 02/26/2020 12:00:00 AM EST ETHAN ([facility]) [id number] Breast neoplasm screening status Breast Neoplasm Screening Status Problem 09/30/2019 12:00:00 AM EDT - 04/29/2020 12:00:00 AM ERNESTO LONG ([facility]) [id number] SNOMED CT Concept SNOMED CT Concept Problem 09/29 12:00:00 AM EDT - 02/26/2020 12:00:00 AM EST ETHAN ([facility]) [id number] Screening mammography Screening Mammography Problem 09/30/2019 12:00:00 AM EDT - 02/26/2020 12:00:00 AM EST ETHAN ([facility]) [id number] Breast neoplasm screening status Breast Neoplasm Screening Status Problem 09/30/2019 12:00:00 AM EDT - 04/29/2020 12:00:00 AM ERNESTO LONG ([facility]) [id number] SNOMED CT Concept SNOMED CT Concept Problem 09/29 12:00:00 AM EDT - 02/26/2020 12:00:00 AM EST ETHAN ([facility]) [id number] Screening mammography Screening Mammography Problem 09/30/2019 12:00:00 AM EDT - 02/26/2020 12:00:00 AM EST ETHAN ([facility]) [id number] Breast neoplasm screening status Breast Neoplasm Screening Status Problem 09/30/2019 12:00:00 AM EDT - 04/29/2020 12:00:00 AM ERNESTO LONG ([facility]) [id number] SNOMED CT Concept SNOMED CT Concept Problem 09/29 12:00:00 AM EDT - 02/26/2020 12:00:00 AM EST ETHAN ([facility]) [id number] Screening mammography Screening Mammography Problem 09/30/2019 12:00:00 AM EDT - 02/26/2020 12:00:00 AM EST ETHAN ([facility]) [id number] Breast neoplasm screening status Breast Neoplasm Screening Status Problem 09/30/2019 12:00:00 AM EDT - 04/29/2020 12:00:00 AM ERNESTO LONG ([facility]) [id number] SNOMED CT Concept SNOMED CT Concept Problem 09/29 12:00:00 AM EDT - 02/26/2020 12:00:00 AM EST ETHAN ([facility]) [id number] Screening mammography Screening Mammography Problem 09/30/2019 12:00:00 AM EDT - 02/26/2020 12:00:00 AM EST ETHAN ([facility]) 600697530 Breast neoplasm screening status Breast Neoplasm Screening Status Problem 09/30/2019 12:00:00 AM EDT - 04/29/2020 12:00:00 AM ERNESTO LONG ([facility]) [id number] SNOMED CT Concept SNOMED CT Concept Problem 09/29 12:00:00 AM EDT - 02/26/2020 12:00:00 AM EST ETHAN ([facility]) [id number] Screening mammography Screening Mammography Problem 09/30/2019 12:00:00 AM EDT - 02/26/2020 12:00:00 AM EST ETHAN ([facility]) [id number] Breast neoplasm screening status Breast Neoplasm Screening Status Problem 09/30/2019 12:00:00 AM EDT - 04/29/2020 12:00:00 AM ERNESTO LONG ([facility]) [id number] SNOMED CT Concept SNOMED CT Concept Problem 09/29 12:00:00 AM EDT - 02/26/2020 12:00:00 AM EST ETHAN ([facility]) [id number] Screening mammography Screening Mammography Problem 09/30/2019 12:00:00 AM EDT - 02/26/2020 12:00:00 AM EST ETHAN ([facility]) [id number] Breast neoplasm screening status Breast Neoplasm Screening Status Problem 09/30/2019 12:00:00 AM EDT - 04/29/2020 12:00:00 AM ERNESTO LONG ([facility]) [id number] SNOMED CT Concept SNOMED CT Concept Problem 09/29 12:00:00 AM EDT - 02/26/2020 12:00:00 AM EST ETHAN ([facility]) [id number] Screening mammography Screening Mammography Problem 09/30/2019 12:00:00 AM EDT - 02/26/2020 12:00:00 AM EST ETHAN ([facility]) [id number] Breast neoplasm screening status Breast Neoplasm Screening Status Problem 09/30/2019 12:00:00 AM EDT - 04/29/2020 12:00:00 AM ERNESTO LONG ([facility]) [id number] SNOMED CT Concept SNOMED CT Concept Problem 09/29 12:00:00 AM EDT - 02/26/2020 12:00:00 AM EST ETHAN ([facility]) [id number] Screening mammography Screening Mammography Problem 09/30/2019 12:00:00 AM EDT - 02/26/2020 12:00:00 AM EST ETHAN ([facility]) 440591514 Breast neoplasm screening status Breast Neoplasm Screening Status Problem 09/30/2019 12:00:00 AM EDT - 04/29/2020 12:00:00 AM ERNESTO LONG ([facility]) [id number] SNOMED CT Concept SNOMED CT Concept Problem 09/29 12:00:00 AM EDT - 02/26/2020 12:00:00 AM EST ETHAN ([facility]) [id number] Screening mammography Screening Mammography Problem 09/30/2019 12:00:00 AM EDT - 02/26/2020 12:00:00 AM EST ETHNA ([facility]) [id number] SNOMED CT Concept SNOMED CT Concept Problem 09/29 12:00:00 AM EDT - 02/26/2020 12:00:00 AM EST ETHAN ([facility]) [id number] Screening mammography Screening Mammography Problem 09/30/2019 12:00:00 AM EDT - 02/26/2020 12:00:00 AM EST ETHAN ([facility]) [id number] SNOMED CT Concept SNOMED CT Concept Problem 09/29 12:00:00 AM EDT - 02/26/2020 12:00:00 AM EST ETHAN ([facility]) [id number] Screening mammography Screening Mammography Problem 09/30/2019 12:00:00 AM EDT - 02/26/2020 12:00:00 AM EST ETHAN ([facility]) [id number] SNOMED CT Concept SNOMED CT Concept Problem 09/29 12:00:00 AM EDT - 02/26/2020 12:00:00 AM EST ETHAN ([facility]) [id number] Screening mammography Screening Mammography Problem 09/30/2019 12:00:00 AM EDT - 02/26/2020 12:00:00 AM EST ETHAN ([facility]) [id number] Acute cystitis Acute Cystitis Problem 09/25/2019 12:00:00 AM EDT - 02/26/2020 12:00:00 AM EST ETHAN ([facility]) [id number] Acute cystitis Acute Cystitis Problem 09/25/2019 12:00:00 AM EDT - 02/26/2020 12:00:00 AM EST ETHAN ([facility]) [id number] Acute cystitis Acute Cystitis Problem 09/25/2019 12:00:00 AM EDT - 02/26/2020 12:00:00 AM EST ETHAN ([facility]) [id number] Acute cystitis Acute Cystitis Problem 09/25/2019 12:00:00 AM EDT - 02/26/2020 12:00:00 AM EST ETHAN ([facility]) [id number] Acute cystitis Acute Cystitis Problem 09/25/2019 12:00:00 AM EDT - 02/26/2020 12:00:00 AM EST ETHAN ([facility]) [id number] Acute cystitis Acute Cystitis Problem 09/25/2019 12:00:00 AM EDT - 02/26/2020 12:00:00 AM EST ETHAN ([facility]) [id number] Acute cystitis Acute Cystitis Problem 09/25/2019 12:00:00 AM EDT - 02/26/2020 12:00:00 AM EST ETHAN ([facility]) [id number] Acute cystitis Acute Cystitis Problem 09/25/2019 12:00:00 AM EDT - 02/26/2020 12:00:00 AM EST ETHAN ([facility]) [id number] Acute cystitis Acute Cystitis Problem 09/25/2019 12:00:00 AM EDT - 02/26/2020 12:00:00 AM EST ETHAN ([facility]) [id number] Acute cystitis Acute Cystitis Problem 09/25/2019 12:00:00 AM EDT - 02/26/2020 12:00:00 AM EST ETHAN ([facility]) [id number] Acute cystitis Acute Cystitis Problem 09/25/2019 12:00:00 AM EDT - 02/26/2020 12:00:00 AM EST ETHAN ([facility]) [id number] Acute cystitis Acute Cystitis Problem 09/25/2019 12:00:00 AM EDT - 02/26/2020 12:00:00 AM EST ETHAN ([facility]) [id number] Acute cystitis Acute Cystitis Problem 09/25/2019 12:00:00 AM EDT - 02/26/2020 12:00:00 AM EST ETHAN ([facility]) [id number] Acute cystitis Acute Cystitis Problem 09/25/2019 12:00:00 AM EDT - 02/26/2020 12:00:00 AM EST ETHAN ([facility]) [id number] Acute cystitis Acute Cystitis Problem 09/25/2019 12:00:00 AM EDT - 02/26/2020 12:00:00 AM EST ETHAN ([facility]) [id number] 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 09/22/2019 12:00:00 AM EDT - 03/31/2020 12:00:00 AM EST ETHAN ([facility]) [id number] 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 09/22/2019 12:00:00 AM EDT - 03/31/2020 12:00:00 AM EST ETHAN ([facility]) [id number] 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 09/22/2019 12:00:00 AM EDT - 03/31/2020 12:00:00 AM EST ETHAN ([facility]) [id number] 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 09/22/2019 12:00:00 AM EDT - 03/31/2020 12:00:00 AM EST ETHAN ([facility]) [id number] 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 09/22/2019 12:00:00 AM EDT - 03/31/2020 12:00:00 AM EST ETHAN ([facility]) [id number] 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 09/22/2019 12:00:00 AM EDT - 03/31/2020 12:00:00 AM EST ETHAN ([facility]) [id number] 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 09/22/2019 12:00:00 AM EDT - 03/31/2020 12:00:00 AM EST ETHAN ([facility]) [id number] 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 09/22/2019 12:00:00 AM EDT - 03/31/2020 12:00:00 AM EST ETHAN ([facility]) [id number] 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 09/22/2019 12:00:00 AM EDT - 03/31/2020 12:00:00 AM EST ETHAN ([facility]) [id number] 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 09/22/2019 12:00:00 AM EDT - 03/31/2020 12:00:00 AM EST ETHAN ([facility]) [id number] 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 09/22/2019 12:00:00 AM EDT - 03/31/2020 12:00:00 AM EST ETHAN ([facility]) [id number] 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 09/22/2019 12:00:00 AM EDT - 03/31/2020 12:00:00 AM EST ETHAN ([facility]) [id number] 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 09/22/2019 12:00:00 AM EDT - 03/31/2020 12:00:00 AM EST ETHAN ([facility]) [id number] Evaluation finding Evaluation Finding Problem 12:00:00 AM EDT - 04/29/2020 12:00:00 AM EST ETHAN ([facility]) [id number] Evaluation finding Evaluation Finding Problem 12:00:00 AM EDT - 04/29/2020 12:00:00 AM EST ETHAN ([facility]) [id number] Evaluation finding Evaluation Finding Problem 12:00:00 AM EDT - 04/29/2020 12:00:00 AM EST ETHAN ([facility]) [id number] Evaluation finding Evaluation Finding Problem 12:00:00 AM EDT - 04/29/2020 12:00:00 AM EST ETHAN ([facility]) [id number] Evaluation finding Evaluation Finding Problem 12:00:00 AM EDT - 04/29/2020 12:00:00 AM EST ETHAN ([facility]) [id number] Evaluation finding Evaluation Finding Problem 12:00:00 AM EDT - 04/29/2020 12:00:00 AM EST ETHAN ([facility]) [id number] Evaluation finding Evaluation Finding Problem 12:00:00 AM EDT - 04/29/2020 12:00:00 AM EST ETHAN ([facility]) [id number] Evaluation finding Evaluation Finding Problem 12:00:00 AM EDT - 04/29/2020 12:00:00 AM EST ETHAN ([facility]) [id number] Evaluation finding Evaluation Finding Problem 12:00:00 AM EDT - 04/29/2020 12:00:00 AM EST ETHAN ([facility]) [id number] Evaluation finding Evaluation Finding Problem 12:00:00 AM EDT - 04/29/2020 12:00:00 AM EST ETHAN ([facility]) [id number] Evaluation finding Evaluation Finding Problem 12:00:00 AM EDT - 04/29/2020 12:00:00 AM EST ETHAN ([facility]) [id number] Evaluation finding Evaluation Finding Problem 12:00:00 AM EDT - 04/29/2020 12:00:00 AM EST ETHAN ([facility]) [id number] Chest pain Chest Pain Problem 05/07/2019 12:0 0:00 AM EST - 02/26/2020 12:00:00 AM EST ETHAN ([facility]) [id number] Chest pain Chest Pain Problem 05/07/2019 12:0 0:00 AM EST - 02/26/2020 12:00:00 AM EST ETHAN ([facility]) [id number] Chest pain Chest Pain Problem 05/07/2019 12:0 0:00 AM EST - 02/26/2020 12:00:00 AM EST ETHAN ([facility]) [id number] Chest pain Chest Pain Problem 05/07/2019 12:0 0:00 AM EST - 02/26/2020 12:00:00 AM EST ETHAN ([facility]) [id number] Chest pain Chest Pain Problem 05/07/2019 12:0 0:00 AM EST - 02/26/2020 12:00:00 AM EST ETHAN ([facility]) [id number] Chest pain Chest Pain Problem 05/07/2019 12:0 0:00 AM EST - 02/26/2020 12:00:00 AM EST ETHAN ([facility]) [id number] Chest pain Chest Pain Problem 05/07/2019 12:0 0:00 AM EST - 02/26/2020 12:00:00 AM EST ETHAN ([facility]) [id number] Chest pain Chest Pain Problem 05/07/2019 12:0 0:00 AM EST - 02/26/2020 12:00:00 AM EST ETHAN ([facility]) [id number] Chest pain Chest Pain Problem 05/07/2019 12:0 0:00 AM EST - 02/26/2020 12:00:00 AM EST ETHAN ([facility]) [id number] Chest pain Chest Pain Problem 05/07/2019 12:0 0:00 AM EST - 02/26/2020 12:00:00 AM EST ETHAN ([facility]) [id number] Chest pain Chest Pain Problem 05/07/2019 12:0 0:00 AM EST - 02/26/2020 12:00:00 AM EST ETHAN ([facility]) [id number] Chest pain Chest Pain Problem 05/07/2019 12:0 0:00 AM EST - 02/26/2020 12:00:00 AM EST ETHAN ([facility]) [id number] Chest pain Chest Pain Problem 05/07/2019 12:0 0:00 AM EST - 02/26/2020 12:00:00 AM EST ETHAN ([facility]) [id number] Chest pain Chest Pain Problem 05/07/2019 12:0 0:00 AM EST - 02/26/2020 12:00:00 AM EST ETHAN ([facility]) [id number] Chest pain Chest Pain Problem 05/07/2019 12:0 0:00 AM EST - 02/26/2020 12:00:00 AM EST ETHAN ([facility]) [id number] Influenza vaccine needed Influenza Vaccine Needed Pro blem 04/19/2018 12:00:00 AM EST - 02/26/2020 12:00:00 AM EST ETHAN ([facility]) [id number] Influenza vaccine needed Influenza Vaccine Needed Pro blem 04/19/2018 12:00:00 AM EST - 02/26/2020 12:00:00 AM EST ETHAN ([facility]) [id number] Influenza vaccine needed Influenza Vaccine Needed Pro blem 04/19/2018 12:00:00 AM EST - 02/26/2020 12:00:00 AM EST ETHAN ([facility]) [id number] Influenza vaccine needed Influenza Vaccine Needed Pro blem 04/19/2018 12:00:00 AM EST - 02/26/2020 12:00:00 AM EST ETHAN ([facility]) [id number] Influenza vaccine needed Influenza Vaccine Needed Pro blem 04/19/2018 12:00:00 AM EST - 02/26/2020 12:00:00 AM EST ETHAN ([facility]) [id number] Influenza vaccine needed Influenza Vaccine Needed Pro blem 04/19/2018 12:00:00 AM EST - 02/26/2020 12:00:00 AM EST ETHAN ([facility]) [id number] Influenza vaccine needed Influenza Vaccine Needed Pro blem 04/19/2018 12:00:00 AM EST - 02/26/2020 12:00:00 AM EST ETHAN ([facility]) [id number] Influenza vaccine needed Influenza Vaccine Needed Pro blem 04/19/2018 12:00:00 AM EST - 02/26/2020 12:00:00 AM EST ETHAN ([facility]) [id number] Influenza vaccine needed Influenza Vaccine Needed Pro blem 04/19/2018 12:00:00 AM EST - 02/26/2020 12:00:00 AM EST ETHAN ([facility]) [id number] Influenza vaccine needed Influenza Vaccine Needed Pro blem 04/19/2018 12:00:00 AM EST - 02/26/2020 12:00:00 AM EST ETHAN ([facility]) [id number] Influenza vaccine needed Influenza Vaccine Needed Pro blem 04/19/2018 12:00:00 AM EST - 02/26/2020 12:00:00 AM EST ETHAN ([facility]) [id number] Influenza vaccine needed Influenza Vaccine Needed Pro blem 04/19/2018 12:00:00 AM EST - 02/26/2020 12:00:00 AM EST ETHAN ([facility]) [id number] Influenza vaccine needed Influenza Vaccine Needed Pro blem 04/19/2018 12:00:00 AM EST - 02/26/2020 12:00:00 AM EST ETHAN ([facility]) [id number] Influenza vaccine needed Influenza Vaccine Needed Pro blem 04/19/2018 12:00:00 AM EST - 02/26/2020 12:00:00 AM EST ETHAN ([facility]) [id number] Influenza vaccine needed Influenza Vaccine Needed Pro blem 04/19/2018 12:00:00 AM EST - 02/26/2020 12:00:00 AM EST ETHAN ([facility]) [id number] Anemia Anemia Problem 11/14/2017 12:0 0:00 AM EDT - 02/26/2020 12:00:00 AM EST ETHAN ([facility]) [id number] Anemia Anemia Problem 11/14/2017 12:0 0:00 AM EDT - 02/26/2020 12:00:00 AM EST ETHAN ([facility]) [id number] Anemia Anemia Problem 11/14/2017 12:0 0:00 AM EDT - 02/26/2020 12:00:00 AM EST ETHAN ([facility]) [id number] Anemia Anemia Problem 11/14/2017 12:0 0:00 AM EDT - 02/26/2020 12:00:00 AM EST ETHAN ([facility]) [id number] Anemia Anemia Problem 11/14/2017 12:0 0:00 AM EDT - 02/26/2020 12:00:00 AM EST ETHAN ([facility]) [id number] Anemia Anemia Problem 11/14/2017 12:0 0:00 AM EDT - 02/26/2020 12:00:00 AM EST ETHAN ([facility]) [id number] Anemia Anemia Problem 11/14/2017 12:0 0:00 AM EDT - 02/26/2020 12:00:00 AM EST ETHAN ([facility]) [id number] Anemia Anemia Problem 11/14/2017 12:0 0:00 AM EDT - 02/26/2020 12:00:00 AM EST ETHAN ([facility]) [id number] Anemia Anemia Problem 11/14/2017 12:0 0:00 AM EDT - 02/26/2020 12:00:00 AM EST ETHAN ([facility]) [id number] Anemia Anemia Problem 11/14/2017 12:0 0:00 AM EDT - 02/26/2020 12:00:00 AM EST ETHAN ([facility]) [id number] Anemia Anemia Problem 11/14/2017 12:0 0:00 AM EDT - 02/26/2020 12:00:00 AM EST ETHAN ([facility]) [id number] Anemia Anemia Problem 11/14/2017 12:0 0:00 AM EDT - 02/26/2020 12:00:00 AM EST ETHAN ([facility]) [id number] Anemia Anemia Problem 11/14/2017 12:0 0:00 AM EDT - 02/26/2020 12:00:00 AM EST ETHAN ([facility]) [id number] Anemia Anemia Problem 11/14/2017 12:0 0:00 AM EDT - 02/26/2020 12:00:00 AM EST ETHAN ([facility]) [id number] Anemia Anemia Problem 11/14/2017 12:0 0:00 AM EDT - 02/26/2020 12:00:00 AM EST ETHAN ([facility]) [id number] Clinical finding Clinical Finding Problem 018 12:00:00 AM EST - 02/26/2020 12:00:00 AM EST ETHAN ([facility]) [id number] Clinical finding Clinical Finding Problem 018 12:00:00 AM EST - 02/26/2020 12:00:00 AM EST ETHAN ([facility]) [id number] Clinical finding Clinical Finding Problem 018 12:00:00 AM EST - 02/26/2020 12:00:00 AM EST ETHAN ([facility]) [id number] Clinical finding Clinical Finding Problem 018 12:00:00 AM EST - 02/26/2020 12:00:00 AM EST ETHAN ([facility]) [id number] Clinical finding Clinical Finding Problem 018 12:00:00 AM EST - 02/26/2020 12:00:00 AM EST ETHAN ([facility]) [id number] Clinical finding Clinical Finding Problem 018 12:00:00 AM EST - 02/26/2020 12:00:00 AM EST ETHAN ([facility]) [id number] Clinical finding Clinical Finding Problem 018 12:00:00 AM EST - 02/26/2020 12:00:00 AM EST ETHAN ([facility]) [id number] Clinical finding Clinical Finding Problem 018 12:00:00 AM EST - 02/26/2020 12:00:00 AM EST ETHAN ([facility]) [id number] Clinical finding Clinical Finding Problem 018 12:00:00 AM EST - 02/26/2020 12:00:00 AM EST ETHAN ([facility]) [id number] Clinical finding Clinical Finding Problem 018 12:00:00 AM EST - 02/26/2020 12:00:00 AM EST ETHAN ([facility]) [id number] Clinical finding Clinical Finding Problem 018 12:00:00 AM EST - 02/26/2020 12:00:00 AM EST ETHAN ([facility]) [id number] Clinical finding Clinical Finding Problem 018 12:00:00 AM EST - 02/26/2020 12:00:00 AM EST ETHAN ([facility]) [id number] Clinical finding Clinical Finding Problem 018 12:00:00 AM EST - 02/26/2020 12:00:00 AM EST ETHAN ([facility]) [id number] Clinical finding Clinical Finding Problem 018 12:00:00 AM EST - 02/26/2020 12:00:00 AM EST ETHAN ([facility]) [id number] Clinical finding Clinical Finding Problem 018 12:00:00 AM EST - 02/26/2020 12:00:00 AM EST ETHAN ([facility]) [id number] SNOMED CT Concept SNOMED CT Concept Problem 02/12 12:00:00 AM EST - 02/26/2020 12:00:00 AM EST ETHAN ([facility]) [id number] Screening for malignant neoplasm of cerv ix Screening for Malignant Neoplasm of Cervix Problem 02/12/2013 12:00:00 AM EST - 02/26/2020 12:00:00 AM EST ETHAN ([facility]) [id number] SNOMED CT Concept SNOMED CT Concept Problem 02/12 12:00:00 AM EST - 02/26/2020 12:00:00 AM EST ETHAN ([facility]) [id number] Screening for malignant neoplasm of cerv ix Screening for Malignant Neoplasm of Cervix Problem 02/12/2013 12:00:00 AM EST - 02/26/2020 12:00:00 AM EST ETHAN ([facility]) [id number] SNOMED CT Concept SNOMED CT Concept Problem 02/12 12:00:00 AM EST - 02/26/2020 12:00:00 AM EST ETHAN ([facility]) [id number] Screening for malignant neoplasm of cerv ix Screening for Malignant Neoplasm of Cervix Problem 02/12/2013 12:00:00 AM EST - 02/26/2020 12:00:00 AM EST ETHAN ([facility]) [id number] SNOMED CT Concept SNOMED CT Concept Problem 02/12 12:00:00 AM EST - 02/26/2020 12:00:00 AM EST ETHAN ([facility]) [id number] Screening for malignant neoplasm of cerv ix Screening for Malignant Neoplasm of Cervix Problem 02/12/2013 12:00:00 AM EST - 02/26/2020 12:00:00 AM EST ETHAN ([facility]) [id number] SNOMED CT Concept SNOMED CT Concept Problem 02/12 12:00:00 AM EST - 02/26/2020 12:00:00 AM EST ETHAN ([facility]) [id number] Screening for malignant neoplasm of cerv ix Screening for Malignant Neoplasm of Cervix Problem 02/12/2013 12:00:00 AM EST - 02/26/2020 12:00:00 AM EST ETHAN ([facility]) [id number] SNOMED CT Concept SNOMED CT Concept Problem 02/12 12:00:00 AM EST - 02/26/2020 12:00:00 AM EST ETHAN ([facility]) [id number] Screening for malignant neoplasm of cerv ix Screening for Malignant Neoplasm of Cervix Problem 02/12/2013 12:00:00 AM EST - 02/26/2020 12:00:00 AM EST ETHAN ([facility]) [id number] SNOMED CT Concept SNOMED CT Concept Problem 02/12 12:00:00 AM EST - 02/26/2020 12:00:00 AM EST ETHAN ([facility]) [id number] Screening for malignant neoplasm of cerv ix Screening for Malignant Neoplasm of Cervix Problem 02/12/2013 12:00:00 AM EST - 02/26/2020 12:00:00 AM EST ETHAN ([facility]) [id number] SNOMED CT Concept SNOMED CT Concept Problem 02/12 12:00:00 AM EST - 02/26/2020 12:00:00 AM EST ETHAN ([facility]) [id number] Screening for malignant neoplasm of cerv ix Screening for Malignant Neoplasm of Cervix Problem 02/12/2013 12:00:00 AM EST - 02/26/2020 12:00:00 AM EST ETHAN ([facility]) [id number] SNOMED CT Concept SNOMED CT Concept Problem 02/12 12:00:00 AM EST - 02/26/2020 12:00:00 AM EST ETHAN ([facility]) [id number] Screening for malignant neoplasm of cerv ix Screening for Malignant Neoplasm of Cervix Problem 02/12/2013 12:00:00 AM EST - 02/26/2020 12:00:00 AM EST ETHAN ([facility]) [id number] SNOMED CT Concept SNOMED CT Concept Problem 02/12 12:00:00 AM EST - 02/26/2020 12:00:00 AM EST ETHAN ([facility]) [id number] Screening for malignant neoplasm of cerv ix Screening for Malignant Neoplasm of Cervix Problem 02/12/2013 12:00:00 AM EST - 02/26/2020 12:00:00 AM EST ETHAN ([facility]) [id number] SNOMED CT Concept SNOMED CT Concept Problem 02/12 12:00:00 AM EST - 02/26/2020 12:00:00 AM EST ETHAN ([facility]) [id number] Screening for malignant neoplasm of cerv ix Screening for Malignant Neoplasm of Cervix Problem 02/12/2013 12:00:00 AM EST - 02/26/2020 12:00:00 AM EST ETHAN ([facility]) [id number] SNOMED CT Concept SNOMED CT Concept Problem 02/12 12:00:00 AM EST - 02/26/2020 12:00:00 AM EST ETHAN ([facility]) [id number] Screening for malignant neoplasm of cerv ix Screening for Malignant Neoplasm of Cervix Problem 02/12/2013 12:00:00 AM EST - 02/26/2020 12:00:00 AM EST ETHAN ([facility]) [id number] SNOMED CT Concept SNOMED CT Concept Problem 02/12 12:00:00 AM EST - 02/26/2020 12:00:00 AM EST ETHAN ([facility]) [id number] Screening for malignant neoplasm of cerv ix Screening for Malignant Neoplasm of Cervix Problem 02/12/2013 12:00:00 AM EST - 02/26/2020 12:00:00 AM EST ETHAN ([facility]) [id number] SNOMED CT Concept SNOMED CT Concept Problem 02/12 12:00:00 AM EST - 02/26/2020 12:00:00 AM EST ETHAN ([facility]) [id number] Screening for malignant neoplasm of cerv ix Screening for Malignant Neoplasm of Cervix Problem 02/12/2013 12:00:00 AM EST - 02/26/2020 12:00:00 AM EST ETHAN ([facility]) [id number] SNOMED CT Concept SNOMED CT Concept Problem 02/12 12:00:00 AM EST - 02/26/2020 12:00:00 AM EST ETHAN ([facility]) [id number] Screening for malignant neoplasm of cerv ix Screening for Malignant Neoplasm of Cervix Problem 02/12/2013 12:00:00 AM EST - 02/26/2020 12:00:00 AM EST ETHAN ([facility]) [id number] SNOMED CT Concept SNOMED CT Concept Problem 02/25 12:00:00 AM EST [facility]AN ([facility]) [id number] SNOMED CT Concept SNOMED CT Concept Problem 02/25 12:00:00 AM EST ETHAN ([facility]) [id number] SNOMED CT Concept SNOMED CT Concept Problem 02/25 12:00:00 AM EST [facility]AN ([facility]) [id number] SNOMED CT Concept SNOMED CT Concept Problem 02/25 12:00:00 AM EST ETHAN ([facility]) [id number] SNOMED CT Concept SNOMED CT Concept Problem 02/25 12:00:00 AM EST [facility] ([facility]) [id number] SNOMED CT Concept SNOMED CT Concept Problem 02/25 12:00:00 AM EST ETHAN ([facility]) [id number] SNOMED CT Concept SNOMED CT Concept Problem 02/25 12:00:00 AM EST ETHAN ([facility]) [id number] SNOMED CT Concept SNOMED CT Concept Problem 02/25 12:00:00 AM EST ETHAN ([facility]) [id number] SNOMED CT Concept SNOMED CT Concept Problem 02/25 12:00:00 AM EST ETHAN ([facility]) [id number] SNOMED CT Concept SNOMED CT Concept Problem 02/25 12:00:00 AM EST ETHAN ([facility]) [id number] SNOMED CT Concept SNOMED CT Concept Problem 02/25 12:00:00 AM EST ETHAN ([facility]) [id number] SNOMED CT Concept SNOMED CT Concept Problem 02/25 12:00:00 AM EST ETHAN ([facility]) [id number] SNOMED CT Concept SNOMED CT Concept Problem 02/25 12:00:00 AM EST ETHAN ([facility]) [id number] SNOMED CT Concept SNOMED CT Concept Problem 02/25 12:00:00 AM EST ETHAN ([facility]) [id number] SNOMED CT Concept SNOMED CT Concept Problem 02/25 12:00:00 AM EST ETHAN ([facility]) Surgeries/Procedures Procedure Description Date Indications Data Source(s) ECG ROUTINE ECG W/LEAST 12 LDS W/I&R <td>POCT AMB EKG</td><td>Routine</td><td>08/26/2020 4:21 PM EDT</td><td> Palpitations</td><td> </td> 08/26/2020 04:21:00 PM EDT Palpitations [facility] Palpitations SORIN THYROID STUDY <td>SORIN THYROID STUDY</td ><td>Routine</td><td>06/25/2020 3:25 PM EDT</td><td> Thyroid nodule</td><td></td> 06/25/2020 03:25:00 PM EDT Thyroid nodule [facility] Thyroid nodule BLOOD COUNT COMPLETE AUTO&AUTO DIFRNTL WBC COUNT <td>C BC AND DIFFERENTIAL</td><td>Routine</td><td>06/15/2020</td><td></td><td> </td> 06/15/2020 12:00:00 AM EDT [facility] THYROID STIMULATING HORMONE TSH <td>TSH</td><td>Routine</td><td>06/15/2020</td><td></td><td> </td> 06/15/2020 12:00:00 AM EDT [facility] IRON <td>IRON</td><td>Routine</td ><td>06/15/2020</td><td></td><td> </td> 06/15/2020 12:00:00 AM T [facility] HEMOGLOBIN GLYCOSYLATED A1C <td>HEMOGLOBIN A1C</td><td>Routine</td><td>06/15/2020</td><td></td><td> </td> 06/15/2020 12:00:00 AM T [facility] FERRITIN <td>FERRITIN</td><td>Routine </td><td>06/15/2020</td><td></td><td> </td> 06/15/2020 12:00:00 AM T [facility] HEPATIC FUNCTION PANEL <td>HEPATIC FUNCTION PANEL</td><td>Routine</td><td>06/15/2020</td><td></td><td> </td> 06/15/2020 12:00:00 AM T [facility] BASIC METABOLIC PANEL CALCIUM TOTAL <td>BASIC METABOLI C PANEL</td><td>Routine</td><td>06/15/2020</td><td></td><td> </td> 06/15/2020 12:00:00 AM [facility] Results ID Date Data Source [id number] 07/07/2020 06:06:41 PM [facility] Name Value Range Interpretation Code Description Data Dee Dee rce(s) Supporting Document(s) Cortisol [Mass/volume] in Saliva (oral fluid) 0.140 ug/dL [facility] (NOTE)This test was developed and its pe rformance characteristicsdetermined by [facility]. It has not been cleared or approvedby the Food and Drug Administration.Reference Range:Children and Adults:8:00a.m.: 0.025 - 0.600Noon: <0.010 - 0.3304:00p.m.: 0.010 - 0.200Midnight: <0.010 - 0.090Performed At: [facility] [id number] [place], [place] [id number] Blanchard MD Ph:[phone] ID Date Data Source [id number] 06/29/2020 02:36:03 PM [facility] Name Value Range Interpretation Code Description Data Dee Dee rce(s) Supporting Document(s) Microalbumin [Mass/volume] in Urine 53.9 mg/L [facility] Creatinine [Mass/volume] in Urine 32.2 mg/dl [facility] Albumin/Creatinine [Mass Ratio] in Urine 167.4 ug/mg creat <20.0 H [facility] ID Date Data Source [id number] 07/07/2020 06:06:40 PM [facility] Name Value Range Interpretation Code Description Data Dee Dee rce(s) Supporting Document(s) Cortisol [Mass/volume] in Saliva (oral fluid) 0.127 ug/dL [facility] (NOTE)This test was developed and its pe rformance characteristicsdetermined by [facility]. It has not been cleared or approvedby the Food and Drug Administration.Reference Range:Children and Adults:8:00a.m.: 0.025 - 0.600Noon: <0.010 - 0.3304:00p.m.: 0.010 - 0.200Midnight: <0.010 - 0.090Performed At: [facility] [id number] [place], [place] [id number] Blanchard MD Ph:[phone] ID Date Data Source [id number] 07/05/2020 08:06:19 PM [facility] Name Value Range Interpretation Code Description Data Dee Dee rce(s) Supporting Document(s) Normetanephrine [Mass/volume] in Serum or Plasma 45.3 pg/mL 0.0-125.8 [facility] (NOTE)This test was developed and its pe rformance characteristicsdetermined by [facility]. It has not been cleared or approvedby the Food and Drug Administration. Metanephrine Free [Mass/volume] in Serum or Plasma 12.0 pg/mL 0.0-88. 0 [facility] (NOTE)This test was developed and its pe rformance characteristicsdetermined by [facility]. It has not been cleared or approvedby the Food and Drug Administration.Performed At: [address] [id number] Price MD Ph:[phone] ID Date Data Source [id number] 07/06/2020 09:07:01 AM [facility] Value Range Interpretation Code Description Data Dee Dee rce(s) Supporting Document(s) Renin [Enzymatic activity/volume] in Plasma 15.315 ng/mL/hr 0.167-5.3 80 H [facility] (NOTE)This test was developed and its pe rformance characteristicsdetermined by [employer]. It has not been cleared or approvedby the Food and Drug Administration.Performed At: [address] [id number] Price MD Ph:[phone] ID Date Data Source [id number] 07/01/2020 02:08:16 PM [facility] Value Range Interpretation Code Description Data Dee Dee rce(s) Supporting Document(s) Calcitonin [Mass/volume] in Serum or Plasma 0.0-5.0 [facility] (NOTE)[employer] Stalactite 3D Printersulite 2000 Immunochemil uminometric assay (ICMA)Values obtained with different assay methods or kits cannot be usedinterchangeably. Results cannot be interpreted as absolute evidenceof the presence or absence of malignant disease.Performed At: [address] [id number] Price MD Ph:[phone] ID Date Data Source [id number] 07/05/2020 12:06:11 AM EDT [facility] Name Value Range Interpretation Code Description Data Dee Dee rce(s) Supporting Document(s) Testosterone [Mass/volume] in Serum or Plasma 4.6 ng/dL [facility] (NOTE) Female: Premenopausal 10.0 - 55.0 Postmenopausal 7.0 - 40.0This test was developed and its performance characteristicsdetermined by [facility]. It has not been cleared or approvedby the Food and Drug Administration. Testosterone Free [Mass/volume] in Serum or Plasma 0.8 pg/mL 0.0-4.2 [facility] (NOTE)Performed At: [address] [id number] Price MD Ph:[phone] At: [address] [id number] Falk MD Ph:[phone] ID Date Data Source [id number] 07/05/2020 06:06:33 PM EDT [facility] Name Value Range Interpretation Code Description Data Dee Dee rce(s) Supporting Document(s) Aldosterone [Mass/volume] in Serum or Plasma 19.3 ng/dL 0.0-30.0 [facility] (NOTE)This test was developed and its pe rformance characteristicsdetermined by [facility]. It has not been cleared or approvedby the Food and Drug Administration.Performed At: [address] [id number] Price MD Ph:[phone] ID Date Data Source [id number] 07/02/2020 12:06:54 PM EDT [facility] Name Value Range Interpretation Code Description Data Dee Dee rce(s) Supporting Document(s) Norepinephrine [Mass/volume] in Plasma 231 pg/mL 0-874 [facility] Epinephrine [Mass/volume] in Plasma 0-62 [facility] Dopamine [Mass/volume] in Serum or Plasma 0-48 [facility] (NOTE)Performed At: [address] [id number] Price MD Ph:[phone] ID Date Data Source [id number] 06/28/2020 03:50:21 PM [facility] Name Value Range Interpretation Code Description Data Dee Dee rce(s) Supporting Document(s) Cholesterol [Mass/volume] in Serum or Plasma 144 mg/dL <200 [facility] Triglyceride [Mass/volume] in Serum or Plasma 298 mg/dL <150 [facility] Cholesterol in HDL [Mass/volume] in Serum or Plasma 36 mg/dL >50 L [facility] Cholesterol in LDL [Mass/volume] in Serum or Plasma by calcu lation 49 mg/dL <100 [facility] Cholesterol in VLDL [Mass/volume] in Serum or Plasma by calc ulation 60 mg/dl 16-42 H [facility] Cholesterol non HDL [Mass/volume] in Serum or Plasma 108 mg/dL <130 [facility] ID Date Data Source [id number] 06/28/2020 03:50:21 PM [facility] Name Value Range Interpretation Code Description Data Dee Dee rce(s) Supporting Document(s) Albumin [Mass/volume] in Serum or Plasma by Bromocresol green (BCG) dye binding method 4.0 g/dL 3.5-5.2 [facility] Bilirubin.total [Mass/volume] in Serum or Plasma 0.3 mg/dL <1.2 [facility] Calcium [Mass/volume] in Serum or Plasma 9.4 mg/dL 8.6-10.0 [facility] Chloride [Moles/volume] in Serum or Plasma 96 mmol/L 98-107 L [facility] Creatinine [Mass/volume] in Serum or Plasma 0.50 mg/dL 0.50-0.90 [facility] Glucose [Mass/volume] in Serum or Plasma 386 mg/dL 70-140 H [facility] Alkaline phosphatase [Enzymatic activity/volume] in Serum or Plasma 93 U/L 35-104 [facility] Potassium [Moles/volume] in Serum or Plasma 4.6 mmol/L 3.4-5.1 [facility] Protein [Mass/volume] in Serum or Plasma 7.0 g/dL 6.4-8.3 [facility] Sodium [Moles/volume] in Serum or Plasma 132 mmol/L 136-145 L [facility] Aspartate aminotransferase [Enzymatic activity/volume] in Serum or Plasma 18 U/L <32 [facility] Urea nitrogen [Mass/volume] in Serum or Plasma 14 mg/dL 6-20 [facility] Osmolality of Serum or Plasma by calculation 290 mosm/kg 275-300 [facility] Creatinine/Urea nitrogen [Mass Ratio] in Serum or Plasma 28 [facility] Bicarbonate [Moles/volume] in Serum 22 mmol/L 22-29 [facility] Alanine aminotransferase [Enzymatic activity/volume] in Seru m or Plasma 21 U/L <33 [facility] Anion gap 3 in Serum or Plasma 15 mmol/L 8-15 [facility] Glomerular filtration rate/1.73 sq M pre dicted among non-blacks [Volume Rate/Area] in Serum or Plasma by Creatinine-based formula (MDRD) >6 0 [facility] Glomerular filtration rate/1.73 sq M pre dicted among blacks [Volume Rate/Area] in Serum or Plasma by Creatinine-based formula (MDRD) >60 [facility] ID Date Data Source [id number] 06/29/2020 11:42:40 AM [facility] Name Value Range Interpretation Code Description Data Dee Dee rce(s) Supporting Document(s) Dehydroepiandrosterone sulfate (DHEA-S) [Mass/volume] in Serum or Plasma 77 ug/dL <340 [facility] ID Date Data Source [id number] [facility] Interpretation Code Description Data Dee Dee rce(s) Supporting Document(s) Progress Note [facility] LQOEIw5dVkSJLkPs77/AXZviHMYbb1JoQZakWOj3CMdnVGZeA2HdAGZ7dI8bBRV1ELrWAkIgUxAnOGH7 lbm [file] yLZzUi9MEWfiIwHJIeSmBZ5UZHq= ID Date Data Source [id number] 06/26/2020 06:11:27 PM EDT [facility] Name Value Range Interpretation Code Description Data Dee Dee rce(s) Supporting Document(s) Progress Note [facility] KEZMHi1qImAECfHh21/LUVflEGRjp5GmMHexFUa2RDjyUGGmN2BpREL9jD8dCZC0XIoNTfBwSsSmVGA1 lbm [file] Cg== ID Date Data Source [id number] 06/25/2020 05:26:14 PM EDT [facility] Name Value Range Interpretation Code Description Data Dee Dee rce(s) Supporting Document(s) Progress Note [facility] XIREIk0mErEUBbHn76/UMSllMNXpb0QwGMgvLFh7BBjdRQXsZ3TbFVE9qC7wISP5MZfSHnRdGpGlXGU3 lbm [file] Jur0nAC+rweskN1gHJ2D5tv/pjzAPte/bpm developer/EE6A0AEHlqRpPkPgo2Hy2PGVaaCifCrwWeaujcgwPiO [file] ICAgICAgICAgICAgICAgICAgICAgICAgICAgICAgIC AgICAgICAgICAgICAgICAgICAgICAgICAgICAgICAgICAgICAgICAgICAgICAgICAgICAgICAgDQogIC AgICAgICAgICAgICAgICAgICAgICAgICAgICAgICAgICAgICAgICAgICAgICAgICAgICAgICAgICAgIC AgICAgICAgICAgICAgICAgICAgICAgICAgICAgICAg ICAgICAgDQogICAgICAgICAgICAgICAgICAgICAgICAgICAgICAgICAgICAgICAgICAgICAgICAgICAg ICAgICAgICAgICAgICAgICAgICAgICAgICAgICAgICAgICAgICAgICAgICAgICAgDQogICAgICAgICAg ICAgICAgICAgICAgICAgICAgICAgICAgICAgICAgIC AgICAgICAgICAgICAgICAgICAgICAgICAgICAgICAgICAgICAgICAgICAgICAgICAgICAgICAgICAgDQ ogICAgICAgICAgICAgICAgICAgICAgICAgICAgICAgICAgICAgICAgICAgICAgICAgICAgICAgICAgIC AgICAgICAgICAgICAgICAgICAgICAgICAgICAgICAg ICAgICAgICAgDQogICAgICAgICAgICAgICAgICAgICAgICAgICAgICAgICAgICAgICAgICAgICAgICAg ICAgICAgICAgICAgICAgICAgICAgICAgICAgICAgICAgICAgICAgICAgICAgICAgICAgDQogICAgICAg ICAgICAgICAgICAgICAgICAgICAgICAgICAgICAgIC AgICAgICAgICAgICAgICAgICAgICAgICAgICAgICAgICAgICAgICAgICAgICAgICAgICAgICAgICAgIC AgDQogICAgICAgICAgICAgICAgICAgICAgICAgICAgICAgICAgICAgICAgICAgICAgICAgICAgICAgIC AgICAgICAgICAgICAgICAgICAgICAgICAgICAgICAg ICAgICAgICAgICAgDQogICAgICAgICAgICAgICAgICAgICAgICAgICAgICAgICAgICAgICAgICAgICAg ICAgICAgICAgICAgICAgICAgICAgICAgICAgICAgICAgICAgICAgICAgICAgICAgICAgICAgDQogICAg ICAgICAgICAgICAgICAgICAgICAgICAgICAgICAgIC AgICAgICAgICAgICAgICAgICAgICAgICAgICAgICAgICAgICAgICAgICAgICAgICAgICAgICAgICAgIC LfFCZkEEd9O7bvKTYlQEDlTV2wYIp0Dl9+PDpRLgOsMJL3fxAvuH5LXW7fv8NjSHnaGPSrv0WbWTl3XO 7SJLElKMffQI9BZTrebl0UGCUpZLZvyMVFp4lqSaOv OXW7VWXhWjlgLE0ZXUYrF8iejdCiVHUoZOHBKTqnUGQFYZmzDUZQACSnGZKjDkLjJcVhPONzQMUqIAZL SU1WZsFmX6EloR27BWZCTs0+BBbzflSkMbrCBjLqKBLvi6CuFGf5EV1OJNSkCmuqg8QpNzIpJZRTCZty TA0FQAQ2GMOqYGRxXm7HIIPlL884bjRjZB4DEo8MAr IcDE1wma9NGyNgVVUmSfuAMqa3KXdnTF3ZxNHsKAsMzk7wjyLhveGVr5VpvoQghLBQEEehikXeJ6spiZ usXMQQG0unRUJjEZ6wQt7lNPXfLEYrXtOeMCMCWQ8ZEPPrHXDwmXWyZWCtTXFXMO8DUOiiBFT8UAUshm MmfUNbUOnmIC2HRRNslhNhOuJzNGICJZa+Sl0NEY0r b7YnYJvkXOHzUW5sbs4MXUeSFxEyL0J9mXQwX4K4NSliKq8BHINtWTWtSaQvEDKUOKvlAY2LWJ8nddF1 TV7PqGDdSLLsWDXylYFdLZm2Q15eaECyDSazPP1NWDA+Nasir+Vy3OLWDnYFOnVSEnDjJrWAKKTkWyH2Iu X7TGi4XyJ5SeUC26gQoemnZnNWeqNF7UAA3nUGHjFW XSFL8XdQIkoI9zehRvWpHaTMELRaFwC84akOYxBVOjZMXiCVLoEs6FTNLaC1VxblXjrGqglfUfJTYkIH DWJM9IIUbucrOmxAJhyEixPL95bEdaCT9YZh7NNpFtSG3mdg8FbDTpCm1VHDLeHO5HWHKxXRGxOFOePL J2UFWlQbBnFBbvKENrUATjDTP6IIPcQCMbJR9GTsNz EVHnRfW4LhVcVPJnENZkuj2FTHRdQBMeAAZ6FPPmGNKeRSCsGAvcHQNlPHIcQJZ0HXRmZKUsXA4CXoBd ACSaMBR6CbYpIBJyJOJhhf9HOOXeGGZnRcC9QyUeRZUpPGUbNJrmQTOoDSF7SGG6MIBfYGFfVV0FJhCk GFIjVOG5JxLiKXLrSBQnjd5ZAYKoECGjVVuyPWUaRT WjGGTfHXniIWGfPNM6FHO8ELVfGWIfQQ0QQgUmKOMtVUP4GQBaMTAuAKQyyc6PGXVqUOEpHExlFFBqXG EiPVFeRFrnBJSbIZG9PUf5OHCfEQXiRL8ZQbJoRZRaXLKhSLGaUVOjKRSwip1JGYSqENXtOzE8PESeME HrBDMtXJmtVQRlJXB0Xtu0HZUtKJHbKR0IMvPyFUCp LDkrELjkNDDtHKOtmp5YLMIcFQBaJrV4DPJeTVKiOSCoARmbILHrCES7VvF0NWMbSXNkLU5VKkSuVAYc DDz9MSMfCKInZCOmro6CKTMrCOJiCFp3EOIiATHxKKHoXLjlEBDgWOX1TKy2YQLuTBByWG5KKhIjYNVb KlA5CIOmQXMaWYKtxm5LDFFoMVMdVZa6JAWwUPEpMH DmAAiyDHEdXFJkPTJiCVHpBCPnHC4LJoWpUYFxNcHqTDFbSQQmGNBtla1VXDFnFCPaNDY0FiYwSLVxTN DyADczXNEpTZNnScqoYLFuGAVzIM4GQrHvAQSfQoQ7WhMhUDDuOYFkcl0GHFOqIVFcZym1ZpVtKXFzTC YvARysXLBfDHLzXQK5KTBmSJSqJJ7TIpOaAKZkZoU0 OyHeQAAxZNQnvl6SPXIeWODpZZvyIHSvLKDrNMOdCRluOAXuWFN5IXXaBBYzZKReOR0YKdRwTQniAJJR Rbq3OWtoI5y5TXXcRM5IS2Eyz2LcIhDoWKRXJHleWO8ipyZtQVTqTb6PT8xNMrj0LfsiHmNhIKq9FUEn DzLyZNP9M1D4TrsdSXH0YDZ9WY0bFUWhBED7SKXtCD ztJVW8FbDsELbqDLmkDWNxXsC5ZAz4NoSpRN4QQe4CHzU3BXY8kPFgWz4KWbXcXZOFRxQxEX6ETMc= ID Date Data Source [id number] 06/25/2020 05:23:38 PM EDT [facility] Name Value Range Interpretation Code Description Data Dee Dee rce(s) Supporting Document(s) Progress Note [facility] GNNQJo2uHgGLOrSu09/IRCnmWQTkp9TnVMavWAo8NFfkFGAtT9YuMHP0lG7uXHB9PBeKSnEvXzEbEDB7 lbm CiEcrPTfMkEFIiCrlBInJeRJpcPsjmxBUdCI2PbQZ8GEDdL35gLPScFXQnS1RgNCU1GEE+Kp1CYXNbiI YcHY7MPxqX4RouzyyN6r4A/0JTLjRHJZgf1zKjZOFi2V4L+fIOhiYJ8XUX4rHGNrRWzob6I3+DK2xjNA 4vrMCFOQ7arMIp272h7WUT3R+/d14fNBgLlv+Lj15g s+/iRTkEbP4Ajtd48xL7xEjtqI3y/kHwVff+YnnPMJYJXzJ6G7xREi+l4bt3HmjoDq7UQ3dcIXH3XZ [file] V3rQ/0zx1/N/Boaz/LnSX+XG0p5wP+ifO/3e5F54h5X/ vtyD19U+0D93/N3gO/PnSn+FT+l+BByS8EZX9g7+I0vw1oigmRDOvXUIVM9B/wWDITsP8LRPUBriGZQv iF9QZUCcWVyGNkqMlgrhBWbepk94dh8Ae+1PLuVIlkGjvwbEgzwmhj96gu0OpD1CASWqdsFevHZGglfl Ntf8ym4HcH3Xl8ZnflYk0Wxad6to2hE/U/R2V1DJyu /WyUoLOrjhs8fH4wZ/U2XeNg9kRqItH5Rw7PJrKsPFAkIR6FDbb3MmCPuwgn78DGS4D3VkOghBqH+Leonidas +RK7Vxkeo0d1MT9F/0/AfyJ0p/89H5RSNC/Jose A/0D+HJkeNkkxwp2KD2VcJ5pnHY2C6bELom9LKsOyC9 [file] AgICAgICAgICAgICAgICAgICAgICAgICAgICAgICAgICAgICAgICAgICAgICAgICAgICAgICAgICAgIC AgICAgICAgICAgICAgICAgICAgICAgDQogICAgICAg ICAgICAgICAgICAgICAgICAgICAgICAgICAgICAgICAgICAgICAgICAgICAgICAgICAgICAgICAgICAg ICAgICAgICAgICAgICAgICAgICAgICAgICAgICAgICAgDQogICAgICAgICAgICAgICAgICAgICAgICAg ICAgICAgICAgICAgICAgICAgICAgICAgICAgICAgIC AgICAgICAgICAgICAgICAgICAgICAgICAgICAgICAgICAgICAgICAgICAgDQogICAgICAgICAgICAgIC AgICAgICAgICAgICAgICAgICAgICAgICAgICAgICAgICAgICAgICAgICAgICAgICAgICAgICAgICAgIC AgICAgICAgICAgICAgICAgICAgICAgICAgDQogICAg ICAgICAgICAgICAgICAgICAgICAgICAgICAgICAgICAgICAgICAgICAgICAgICAgICAgICAgICAgICAg ICAgICAgICAgICAgICAgICAgICAgICAgICAgICAgICAgICAgDQogICAgICAgICAgICAgICAgICAgICAg ICAgICAgICAgICAgICAgICAgICAgICAgICAgICAgIC AgICAgICAgICAgICAgICAgICAgICAgICAgICAgICAgICAgICAgICAgICAgICAgDQogICAgICAgICAgIC AgICAgICAgICAgICAgICAgICAgICAgICAgICAgICAgICAgICAgICAgICAgICAgICAgICAgICAgICAgIC AgICAgICAgICAgICAgICAgICAgICAgICAgICAgDQog ICAgICAgICAgICAgICAgICAgICAgICAgICAgICAgICAgICAgICAgICAgICAgICAgICAgICAgICAgICAg ICAgICAgICAgICAgICAgICAgICAgICAgICAgICAgICAgICAgICAgDQogICAgICAgICAgICAgICAgICAg ICAgICAgICAgICAgICAgICAgICAgICAgICAgICAgIC AgICAgICAgICAgICAgICAgICAgICAgICAgICAgICAgICAgICAgICAgICAgICAgICAgDQogICAgICAgIC AgICAgICAgICAgICAgICAgICAgICAgICAgICAgICAgICAgICAgICAgICAgICAgICAgICAgICAgICAgIC AgICAgICAgICAgICAgICAgICAgICAgICAgICAgICAg MWt3O1hmDNTsHRPkYG3zMYz5Rh3+BAbQYnEmOED6usKvpC2PFU8ot1XhTBajPWRur6CrBPh9RH6ACTAc GGsaMR7XZKacqo6ZMQOnLUPvxAXHt0knNuDjGPL4ZMPaMgrwID5FZWIyZ1mktvPbCKIlJHIWEKyhWWJA ROfcKWESME5JFgKsP6SkzD08AHBZUd7+DQplbmRvYm qBWtJ5UPOuq2EuSQj2KY9FDRSyIixlo5OqIsQzGPEBIZliQE3BYDL3BTN7XPHwYk8CMLBrW930bxZoGH 7GJf8USyHaBX6acw4HEqHeRHDaMbwJQqc6JLlyDH9QoDMjUKbAho5vaiAwubYVa6HprsFhzTNXIIfqte MsI5jfgIkzZKXKY8rjGJLlLA7kFm7cUNRkJNVpTdJk FEHOHH2TZQDeUWTuaOZfQOGuNUTOOJ1XCUohHNK8FRVkawOmgNCrNTxgKW0AYYMzzuZcLnBbFASNIEn+ Xp8OIX1av3FiYKnzIkNbOU4jdt8BTBhAEyRbB7B1iCXcF4Z2NYfpRi4UZVGmEWWyNpVhMIBMTTnhMJ9S JD0vjiU2KB4UcUAuLABnHQWwkHJvRYn7Y53vhNCeAT eyYX2SPLJ+Nasir+Hv8ZLCXwSROsNEXkHzKxKDVXWeXnM3MlA2RMr6NoH8GoZP16tKonzjFbCGllWJ0YHD 3oDTNnPKAKLS2QpKIjzW2oxmYpTOVeITJMKvXyK29iuOTuCDMdOYSuLAEkBd1HWPMoS9ZpjvFwcBgmsz SuVAGiHDFDYR5RTDzuohZztVWxzPxlQZ50lJnxVA2U Us1FHfWpMP8qgd5EwIYlLy2JSJWvWc4AUNJyWPYbDUBrILQ0AVHiJfMlYKmaCWRdRMZqAVU6ZDSrKEUp NZ0HCdYrSYFwGnJoITTqCDIgIXGclg0QEYIcFNFeFdO7LSGnPRKyLDYwDOjdGOTsHAFcYTK7RCNeTQYx XN6IExOlOHBbXCO6MkXnECQnAKPrao4DMGSaCEEjEa GbIsBqURGnKXUhBJknYRUyCAD6PWb4CEEaRMAyFE2QQnYdLOOuCCZ7YGwrMEAkSFNelz1OWVHyOPSfLx o0LPRqSKNyGREaMGcrMUShGAQ7GAO4FJZlKDNrVG7NSpRxACMjTYp8HTbrOZCgYKBpbw3OTYNdWSIhQQ YyOwRsNRQwCXPaEQaaMDRpZMB3Sfc6PBUcHVHjYJ7U XzEsSEFgXTBpBLwjYARnKYHngr6IXBMgULRgAMQ0MKMlBUOzHNZxGOgcGTBkIKHtMnH7LCXsHPZuGY4U GnWpIWBaWeA2VHTcARDkSGUqer1PEHMxRTMqNzTyHQHjEJJeGCQmJZbgCZElCMXpQIE8NDOxOELxOE3I PvZrULZzAgL1VRtcMXXzCFRdpn8KIZZxQQJxCoauWE KkPTIcWXFmREptZMKmSGQtHLF8TSWbOBXuPK0HQyIlKRIqDpEaZsnkKODlXDPosa5LVXMiEPKfMDNjSS TzWBMrCEMkVEugENBwQUL4AQT3ILYkXZUcVB4ULcCvOSZgUcVzZnUnBBOrIRZlyf9CEVPsXMJwEORsFW WqOPZlPUTxRQkqAFHfJNYmDgS1JNQtKMUcMW8NUlFf AGPvLeJ5RHSrOXMeXGExws9NEEUuZSQjEYn3DUYrDUGgRNOiFHyrMCKwIMVcUVA1XRFjSUGiAR9AIkEz ZEQqHcShZIHzVKKbYIWplu6CMRGcJQXwKDwrFJLzJCRxCNSwSZbmHEAkSXYkJQoyPAWdKZRiLR6RGcAp TMYdYzTfWTWqQIOpIJGosz2QPYVjVMGfAeIsBWGgPF NgEPVjGRh3ruOsnRObSKv7NL0GT9QrbpVmUxsUEs5Ye428CBK9HDGvFy5VS3scVe4aMZEaAWCVQj4ICD p8RTWjZrJ6WFE2YAE7YGFbYuF1OVXsUPB5XRNmSur5LTE+ANi8QhSqCzY9IzwdJvUjYDErJoK4C9IsEt BrLiE3GqH5RB5iRBKILo6+DSmyyFBjcTclQAEJHgEeDhQ9RVizANYZTc9S ID Date Data Source [id number] 06/23/2020 09:59:00 AM [facility]T [facility] Name Value Range Interpretation Code Description Data Dee Dee rce(s) Supporting Document(s) ID Date Data Source [id number] 06/23/2020 09:59:00 AM EDT [facility] Name Value Range Interpretation Code Description Data Dee Dee rce(s) Supporting Document(s) ID Date Data Source [id number] 06/23/2020 09:59:00 AM EDT [facility] Name Value Range Interpretation Code Description Data Dee Dee rce(s) Supporting Document(s) ID Date Data Source [id number] 06/23/2020 09:59:00 AM EDT [facility] Name Value Range Interpretation Code Description Data Dee Dee rce(s) Supporting Document(s) ID Date Data Source [id number] 06/21/2020 10:16:00 AM EDT [facility] Name Value Range Interpretation Code Description Data Dee Dee rce(s) Supporting Document(s) bilirubin neg Bilirubin [facility] ([facility]) glucose 3+ Abnormal (applies to non-numeric res ults) Glucose ETHAN ([facility]) blood 3+ Abnormal (applies to non-numeric res ults) Blood ETHAN ([facility]) ketone 2+ Abnormal (applies to non-numeric res ults) Ketone ETHAN ([facility]) leukocytes neg Leukocytes ETHAN ([facility]) pH Ph ETHAN ([facility]) protein 1+ Abnormal (applies to non-numeric res ults) Protein ETHAN ([facility]) nitrite neg Nitrite [facility]AN ([facility]) urobilinogen 0.2 mg/dL Urobilinogen ETHAN ([facility]) specific gravity Specific [place] AT [facility]) ID Date Data Source [id number] 06/21/2020 10:16:00 AM EDT [facility]) Name Value Range Interpretation Code Description Data Dee Dee rce(s) Supporting Document(s) bilirubin neg Bilirubin ETHAN ([facility]) blood 3+ Abnormal (applies to non-numeric res ults) Blood ETHAN ([facility]) glucose 3+ Abnormal (applies to non-numeric res ults) Glucose ETHAN ([facility]) ketone 2+ Abnormal (applies to non-numeric res ults) Ketone ETHAN ([facility]) nitrite neg Nitrite ETHAN ([facility]) leukocytes neg Leukocytes ETHAN ([facility]) protein 1+ Abnormal (applies to non-numeric res ults) Protein ETHAN ([facility]) pH Ph ETHAN ([facility]) urobilinogen 0.2 mg/dL Urobilinogen ETHAN ([facility]) specific gravity Specific [place] AT [facility]) ID Date Data Source [id number] 06/21/2020 10:16:00 AM EDT [facility] Name Value Range Interpretation Code Description Data Dee Dee rce(s) Supporting Document(s) bilirubin neg Bilirubin ETHAN ([facility]) blood 3+ Abnormal (applies to non-numeric res ults) Blood ETHAN ([facility]) glucose 3+ Abnormal (applies to non-numeric res ults) Glucose ETHAN ([facility]) ketone 2+ Abnormal (applies to non-numeric res ults) Ketone ETHAN ([facility]) leukocytes neg Leukocytes ETHAN ([facility]) pH Ph ETHAN ([facility]) nitrite neg Nitrite ETHAN ([facility]) protein 1+ Abnormal (applies to non-numeric res ults) Protein ETHAN ([facility]) specific gravity Specific [place] AT [place]IL[place] ([facility]) urobilinogen 0.2 mg/dL Urobilinogen ETHAN ([facility]) ID Date Data Source [id number] 06/21/2020 10:16:00 AM EDT [facility] Name Value Range Interpretation Code Description Data Dee Dee rce(s) Supporting Document(s) bilirubin neg Bilirubin ETHAN ([facility]) ketone 2+ Abnormal (applies to non-numeric res ults) Ketone ETHAN ([facility]) blood 3+ Abnormal (applies to non-numeric res ults) Blood ETHAN ([facility]) glucose 3+ Abnormal (applies to non-numeric res ults) Glucose ETHAN ([facility]) leukocytes neg Leukocytes ETHAN ([facility]) nitrite neg Nitrite ETHAN ([facility]) protein 1+ Abnormal (applies to non-numeric res ults) Protein ETHAN ([facility]) pH Ph ETHAN ([facility]) specific gravity Specific [place] AT [place] ([facility]) urobilinogen 0.2 mg/dL Urobilinogen ETHAN ([facility]) ID Date Data Source [id number] 06/21/2020 10:16:00 AM EDT [facility] Name Value Range Interpretation Code Description Data Dee Dee rce(s) Supporting Document(s) blood 3+ Abnormal (applies to non-numeric res ults) Blood ETHAN ([facility]) bilirubin neg Bilirubin ETHAN ([facility]) ketone 2+ Abnormal (applies to non-numeric res ults) Ketone ETHAN ([facility]) glucose 3+ Abnormal (applies to non-numeric res ults) Glucose ETHAN ([facility]) pH Ph ETHAN ([facility]) nitrite neg Nitrite ETHAN ([facility]) leukocytes neg Leukocytes ETHAN ([facility]) specific gravity Specific [place] AT [facility]) protein 1+ Abnormal (applies to non-numeric res ults) Protein ETHAN ([facility]) urobilinogen 0.2 mg/dL Urobilinogen ETHAN ([facility]) ID Date Data Source [id number] 06/21/2020 10:16:00 AM EDT [facility]) Name Value Range Interpretation Code Description Data Dee Dee rce(s) Supporting Document(s) bilirubin neg Bilirubin ETHAN ([facility]) glucose 3+ Abnormal (applies to non-numeric res ults) Glucose ETHAN ([facility]) blood 3+ Abnormal (applies to non-numeric res ults) Blood ETHAN ([facility]) leukocytes neg Leukocytes ETHAN ([facility]) ketone 2+ Abnormal (applies to non-numeric res ults) Ketone ETHAN ([facility]) nitrite neg Nitrite ETHAN ([facility]) pH Ph ETHAN ([facility]) protein 1+ Abnormal (applies to non-numeric res ults) Protein ETHAN ([facility]) urobilinogen 0.2 mg/dL Urobilinogen ETHAN (No [facility]) specific gravity Specific [place] AT [facility]) ID Date Data Source [id number] 06/21/2020 10:16:00 AM EDT [facility]) Name Value Range Interpretation Code Description Data Dee Dee rce(s) Supporting Document(s) bilirubin neg Bilirubin ETHAN ([facility]) blood 3+ Abnormal (applies to non-numeric res ults) Blood ETHAN ([facility]) glucose 3+ Abnormal (applies to non-numeric res ults) Glucose ETHAN ([facility]) ketone 2+ Abnormal (applies to non-numeric res ults) Ketone ETHAN ([facility]) nitrite neg Nitrite ETHAN ([facility]) leukocytes neg Leukocytes ETHAN ([facility]) pH Ph ETHAN ([facility]) protein 1+ Abnormal (applies to non-numeric res ults) Protein ETHAN ([facility]) specific gravity Specific [place] AT [facility]) urobilinogen 0.2 mg/dL Urobilinogen ETHAN (No [facility]) ID Date Data Source [id number] 06/15/2020 09:29:00 AM EDT ETHAN ([facility]) Name Value Range Interpretation Code Description Data Dee Dee rce(s) Supporting Document(s) Hemoglobin A1c/Hemoglobin.total in Blood Hemoglobin a1C [facility]) ID Date Data Source [id number] 06/15/2020 09:29:00 [facility] Name Value Range Interpretation Code Description Data Dee Dee rce(s) Supporting Document(s) ID Date Data Source [id number] 06/15/2020 09:29:00 AM EDT [facility]) Name Value Range Interpretation Code Description Data Dee Dee rce(s) Supporting Document(s) Hemoglobin A1c/Hemoglobin.total in Blood Hemoglobin a1C [facility]) ID Date Data Source [id number] 06/15/2020 09:29:00 AM EDT [facility] Name Value Range Interpretation Code Description Data Dee Dee rce(s) Supporting Document(s) ID Date Data Source [id number] 06/15/2020 09:29:00 AM EDT [facility] Name Value Range Interpretation Code Description Data Dee Dee rce(s) Supporting Document(s) ID Date Data Source [id number] 06/15/2020 09:29:00 AM EDT [facility] Name Value Range Interpretation Code Description Data Dee Dee rce(s) Supporting Document(s) ID Date Data Source [id number] 06/15/2020 09:29:00 AM EDT [facility] Name Value Range Interpretation Code Description Data Dee Dee rce(s) Supporting Document(s) ID Date Data Source [id number] 06/15/2020 09:29:00 AM EDT [facility] Name Value Range Interpretation Code Description Data Dee Dee rce(s) Supporting Document(s) ID Date Data Source [id number] 06/15/2020 09:29:00 AM EDT [facility] Name Value Range Interpretation Code Description Data Dee Dee rce(s) Supporting Document(s) ID Date Data Source [id number] 06/15/2020 09:29:00 AM EDT [facility] Name Value Range Interpretation Code Description Data Dee Dee rce(s) Supporting Document(s) ID Date Data Source [id number] 06/15/2020 09:29:00 AM EDT ETHAN ([facility]) Name Value Range Interpretation Code Description Data Dee Dee rce(s) Supporting Document(s) ID Date Data Source [id number] 06/15/2020 09:29:00 AM EDT ETHAN ([facility]) Name Value Range Interpretation Code Description Data Dee Dee rce(s) Supporting Document(s) ID Date Data Source [id number] 06/15/2020 09:29:00 AM EDT ETHAN ([facility]) Name Value Range Interpretation Code Description Data Dee Dee rce(s) Supporting Document(s) ID Date Data Source [id number] 03/19/2020 11:23:00 AM EST ETHAN ([facility]) Name Value Range Interpretation Code Description Data Dee Dee rce(s) Supporting Document(s) lipase 189 U/L 73-393 Lipase ETHAN ([facility]) ID Date Data Source [id number] 03/19/2020 11:23:00 AM EST ETHAN ([facility]) Name Value Range Interpretation Code Description Data Dee Dee rce(s) Supporting Document(s) amylase 14 U/L 25-115 Below low normal Amylase BACKUS ( [facility]) ID Date Data Source [id number] 03/19/2020 11:23:00 AM EST ETHAN ([facility]) Name Value Range Interpretation Code Description Data Dee Dee rce(s) Supporting Document(s) glucose, fasting 328 mg/dL 70-100 Above high normal Glucose, Fas ting BACKUS ([facility]) blood urea nitrogen 11 mg/dL 7-18 Blood Urea Nitro gen ETHAN ([facility]) sodium level 134 mEq/L 136-145 Below low normal Sodium Level ATHE NA ([facility]) creatinine for GFR 0.74 mg/dL 0.55-1.30 Creatinine for GF R ETHAN ([facility]) glomerular filtration rate > 60.0 >58 Glomerula r Filtration Rate ETHAN ([facility]) potassium serum 4.4 mEq/L 3.5-5.1 Potassium Serum ATHE ([facility]) carbon dioxide level 26 mEq/L 21-32 Carbon Dioxide Level ETHAN ([facility]) chloride level 98 mEq/L 98-107 Chloride Level ETHAN ([facility]) ALT/SGPT 35 U/L 12-78 ALT/SGPT ETHAN ([facility]) anion gap 10 mEq/L 8-16 Anion Gap ETHAN ([facility]) AST/SGOT 16 U/L 7-37 AST/SGOT ETHAN ([facility]) calcium level 8.9 mg/dL 8.5-10.1 Calcium Level ETHAN ( [facility]) bilirubin,total 0.3 mg/dL 0.2-1.0 Bilirubin,total ATHE ([facility]) total protein 6.4 gm/dL 6.4-8.2 Total Protein ETHAN ( [facility]) alkaline phosphatase 96 U/L 45-117 Alkaline Phosph atase ETHAN ([facility]) albumin/globulin ratio 1.2-2.2 Albumin/globu paola Ratio ETHAN ([facility]) albumin 3.6 gm/dL 3.2-5.2 Albumin ETHAN ([facility]) ID Date Data Source [id number] 03/19/2020 11:23:00 AM EST ETHAN ([facility]) Name Value Range Interpretation Code Description Data Dee Dee rce(s) Supporting Document(s) white blood count 6.5 10 4.0-10.0 White Blood Count ETHAN ([facility]) hematocrit 41.5 % 36.0-47.0 Hematocrit ETHAN ([facility]) hemoglobin 13.3 g/dL 12.0-15.5 Hemoglobin ETHAN ([facility]) red blood count 4.55 10 4.00-5.40 Red Blood Count ATHE ([facility]) mean corpuscular hemoglobin 29.2 pg 27.0-33.0 Mean Cor puscular Hemoglobin ETHAN ([facility]) mean corpuscular volume 91.2 fL 80.0-96.0 Mean Corpusc ular Volume ETHAN ([facility]) mean corpuscular HGB conc 32.0 g/dL 32.0-36.5 Mean Corpu scular HGB Conc ETHAN ([facility]) neutrophils % 69.3 % 36.0-66.0 Above high normal Neutrophils % A THENA ([facility]) platelet count, automated 276 10 150-450 Platelet C ount, Automated ETHAN ([facility]) red cell distribution width 13.2 % 11.5-14.5 Red Cell Distribution Width ETHAN ([facility]) mono % 5.2 % 0.0-5.0 Above high normal [place] % BACKUS ([facility]) lymph % 22.7 % 24.0-44.0 Below low normal Lymph % ETHAN ( [facility]) eos % 2.0 % 0.0-3.0 Eos % ETHAN ([facility]) nucleated red blood cell % 0.0 % 0-0 Nucleated Red Blood Cell % ETHAN ([facility]) baso % 0.5 % 0.0-1.0 Baso % BACKUS ([facility]) immature granulocyte % 0.3 % 0-3.0 Immature Gran ulocyte % ETHAN ([facility]) mono # 0.3 10 0.0-0.8 [place] # ETHAN ([facility]) lymph # 1.5 10 1.5-5.0 Lymph # ETHAN ([facility]) neutrophils # 4.5 10 1.5-8.5 Neutrophils # ETHAN ( [facility]) baso # 0.0 10 0.0-0.2 Baso # ETHAN ([facility]) eos # 0.1 10 0.0-0.5 Eos # ETHAN ([facility]) ID Date Data Source [id number] 03/19/2020 11:23:00 AM EST BACKUS ([facility]) Name Value Range Interpretation Code Description Data Dee Dee rce(s) Supporting Document(s) lipase 189 U/L 73-393 Lipase ETHAN ([facility]) ID Date Data Source [id number] 03/19/2020 11:23:00 AM EST ETHAN ([facility]) Name Value Range Interpretation Code Description Data Dee Dee rce(s) Supporting Document(s) amylase 14 U/L 25-115 Below low normal Amylase ETHAN ( [facility]) ID Date Data Source [id number] 03/19/2020 11:23:00 AM EST ETHAN ([facility]) Name Value Range Interpretation Code Description Data Dee Dee rce(s) Supporting Document(s) glucose, fasting 328 mg/dL 70-100 Above high normal Glucose, Fas ting ETHAN ([facility]) blood urea nitrogen 11 mg/dL 7-18 Blood Urea Nitro gen ETHAN ([facility]) sodium level 134 mEq/L 136-145 Below low normal Sodium Level ATHE ([facility]) glomerular filtration rate > 60.0 >58 Glomerula r Filtration Rate ETHAN ([facility]) creatinine for GFR 0.74 mg/dL 0.55-1.30 Creatinine for GF R ETHAN ([facility]) potassium serum 4.4 mEq/L 3.5-5.1 Potassium Serum ATHE NA ([facility]) chloride level 98 mEq/L 98-107 Chloride Level ETHAN ([facility]) carbon dioxide level 26 mEq/L 21-32 Carbon Dioxide Level ETHAN ([facility]) calcium level 8.9 mg/dL 8.5-10.1 Calcium Level ETHAN ( [facility]) anion gap 10 mEq/L 8-16 Anion Gap ETHAN ([facility]) ALT/SGPT 35 U/L 12-78 ALT/SGPT ETHAN ([facility]) AST/SGOT 16 U/L 7-37 AST/SGOT ETHAN ([facility]) alkaline phosphatase 96 U/L 45-117 Alkaline Phosph atase ETHAN ([facility]) bilirubin,total 0.3 mg/dL 0.2-1.0 Bilirubin,total ATHE NA ([facility]) albumin 3.6 gm/dL 3.2-5.2 Albumin ETHAN ([facility]) total protein 6.4 gm/dL 6.4-8.2 Total Protein ETHAN ( [facility]) albumin/globulin ratio 1.2-2.2 Albumin/globu paola Ratio ETHAN ([facility]) ID Date Data Source [id number] 03/19/2020 11:23:00 AM EST ETHAN ([facility]) Name Value Range Interpretation Code Description Data Dee Dee rce(s) Supporting Document(s) white blood count 6.5 10 4.0-10.0 White Blood Count ETHAN ([facility]) red blood count 4.55 10 4.00-5.40 Red Blood Count ATHE ([facility]) hemoglobin 13.3 g/dL 12.0-15.5 Hemoglobin ETHAN ([facility]) hematocrit 41.5 % 36.0-47.0 Hematocrit ETHAN ([facility]) mean corpuscular volume 91.2 fL 80.0-96.0 Mean Corpusc ular Volume ETHAN ([facility]) mean corpuscular HGB conc 32.0 g/dL 32.0-36.5 Mean Corpu scular HGB Conc ETHAN ([facility]) mean corpuscular hemoglobin 29.2 pg 27.0-33.0 Mean Cor puscular Hemoglobin ETHAN ([facility]) red cell distribution width 13.2 % 11.5-14.5 Red Cell Distribution Width ETHAN ([facility]) platelet count, automated 276 10 150-450 Platelet C ount, Automated ETHAN ([facility]) lymph % 22.7 % 24.0-44.0 Below low normal Lymph % ETHAN ( [facility]) neutrophils % 69.3 % 36.0-66.0 Above high normal Neutrophils % Eric CASONA ([facility]) eos % 2.0 % 0.0-3.0 Eos % ETHAN ([facility]) mono % 5.2 % 0.0-5.0 Above high normal [place] % ETHAN ([facility]) immature granulocyte % 0.3 % 0-3.0 Immature Gran ulocyte % ETHAN ([facility]) baso % 0.5 % 0.0-1.0 Baso % ETHAN ([facility]) neutrophils # 4.5 10 1.5-8.5 Neutrophils # ETHAN ( [facility]) lymph # 1.5 10 1.5-5.0 Lymph # ETHAN ([facility]) nucleated red blood cell % 0.0 % 0-0 Nucleated Red Blood Cell % ETHAN ([facility]) mono # 0.3 10 0.0-0.8 [place] # ETHAN ([facility]) eos # 0.1 10 0.0-0.5 Eos # ETHAN ([facility]) baso # 0.0 10 0.0-0.2 Baso # ETHAN ([facility]) ID Date Data Source [id number] 03/19/2020 11:23:00 AM EST ETHAN ([facility]) Name Value Range Interpretation Code Description Data Dee Dee rce(s) Supporting Document(s) lipase 189 U/L 73-393 Lipase ETHAN ([facility]) ID Date Data Source [id number] 03/19/2020 11:23:00 AM EST ETHAN ([facility]) Name Value Range Interpretation Code Description Data Dee Dee rce(s) Supporting Document(s) amylase 14 U/L 25-115 Below low normal Amylase ETHAN ( [facility]) ID Date Data Source [id number] 03/19/2020 11:23:00 AM EST ETHAN ([facility]) Name Value Range Interpretation Code Description Data Dee Dee rce(s) Supporting Document(s) glucose, fasting 328 mg/dL 70-100 Above high normal Glucose, Fas ting ETHAN ([facility]) blood urea nitrogen 11 mg/dL 7-18 Blood Urea Nitro gen ETHAN ([facility]) creatinine for GFR 0.74 mg/dL 0.55-1.30 Creatinine for GF R ETHAN ([facility]) glomerular filtration rate > 60.0 >58 Glomerula r Filtration Rate ETHAN ([facility]) potassium serum 4.4 mEq/L 3.5-5.1 Potassium Serum ATHE NA ([facility]) sodium level 134 mEq/L 136-145 Below low normal Sodium Level ATHE NA ([facility]) carbon dioxide level 26 mEq/L 21-32 Carbon Dioxide Level ETHAN ([facility]) chloride level 98 mEq/L 98-107 Chloride Level ETHAN ([facility]) anion gap 10 mEq/L 8-16 Anion Gap ETHAN ([facility]) AST/SGOT 16 U/L 7-37 AST/SGOT ETHAN ([facility]) calcium level 8.9 mg/dL 8.5-10.1 Calcium Level ETHAN ( [facility]) alkaline phosphatase 96 U/L 45-117 Alkaline Phosph atase ETHAN ([facility]) ALT/SGPT 35 U/L 12-78 ALT/SGPT ETHAN ([facility]) albumin 3.6 gm/dL 3.2-5.2 Albumin ETHAN ([facility]) bilirubin,total 0.3 mg/dL 0.2-1.0 Bilirubin,total ATHE ([facility]) total protein 6.4 gm/dL 6.4-8.2 Total Protein ETHAN ( [facility]) albumin/globulin ratio 1.2-2.2 Albumin/globu paola Ratio ETHAN ([facility]) ID Date Data Source [id number] 03/19/2020 11:23:00 AM EST ETHAN ([facility]) Name Value Range Interpretation Code Description Data Dee Dee rce(s) Supporting Document(s) white blood count 6.5 10 4.0-10.0 White Blood Count ETHAN ([facility]) red blood count 4.55 10 4.00-5.40 Red Blood Count ATHE NA ([facility]) hemoglobin 13.3 g/dL 12.0-15.5 Hemoglobin ETHAN ([facility]) hematocrit 41.5 % 36.0-47.0 Hematocrit ETHAN ([facility]) mean corpuscular volume 91.2 fL 80.0-96.0 Mean Corpusc ular Volume ETHAN ([facility]) mean corpuscular hemoglobin 29.2 pg 27.0-33.0 Mean Cor puscular Hemoglobin ETHAN ([facility]) red cell distribution width 13.2 % 11.5-14.5 Red Cell Distribution Width ETHAN ([facility]) mean corpuscular HGB conc 32.0 g/dL 32.0-36.5 Mean Corpu scular HGB Conc ETHAN ([facility]) platelet count, automated 276 10 150-450 Platelet C ount, Automated ETHAN ([facility]) neutrophils % 69.3 % 36.0-66.0 Above high normal Neutrophils % A THENA ([facility]) lymph % 22.7 % 24.0-44.0 Below low normal Lymph % ETHAN ( [facility]) mono % 5.2 % 0.0-5.0 Above high normal [place] % ETHAN ([facility]) eos % 2.0 % 0.0-3.0 Eos % ETHAN ([facility]) baso % 0.5 % 0.0-1.0 Baso % ETHAN ([facility]) immature granulocyte % 0.3 % 0-3.0 Immature Gran ulocyte % ETHAN ([facility]) neutrophils # 4.5 10 1.5-8.5 Neutrophils # ETHAN ( [facility]) nucleated red blood cell % 0.0 % 0-0 Nucleated Red Blood Cell % ETHAN ([facility]) mono # 0.3 10 0.0-0.8 [place] # ETHAN ([facility]) lymph # 1.5 10 1.5-5.0 Lymph # ETHAN ([facility]) eos # 0.1 10 0.0-0.5 Eos # ETHAN ([facility]) baso # 0.0 10 0.0-0.2 Baso # ETHAN ([facility]) ID Date Data Source [id number] 03/19/2020 11:23:00 AM EST ETHAN ([facility]) Name Value Range Interpretation Code Description Data Dee Dee rce(s) Supporting Document(s) lipase 189 U/L 73-393 Lipase ETHAN ([facility]) ID Date Data Source [id number] 03/19/2020 11:23:00 AM EST ETHAN ([facility]) Name Value Range Interpretation Code Description Data Dee Dee rce(s) Supporting Document(s) amylase 14 U/L 25-115 Below low normal Amylase ETHAN ( [facility]) ID Date Data Source [id number] 03/19/2020 11:23:00 AM EST ETHAN ([facility]) Name Value Range Interpretation Code Description Data Dee Dee rce(s) Supporting Document(s) blood urea nitrogen 11 mg/dL 7-18 Blood Urea Nitro gen ETHAN ([facility]) glucose, fasting 328 mg/dL 70-100 Above high normal Glucose, Fas ting ETHAN ([facility]) creatinine for GFR 0.74 mg/dL 0.55-1.30 Creatinine for GF R ETHAN ([facility]) sodium level 134 mEq/L 136-145 Below low normal Sodium Level ATHE NA ([facility]) glomerular filtration rate > 60.0 >58 Glomerula r Filtration Rate ETHAN ([facility]) carbon dioxide level 26 mEq/L 21-32 Carbon Dioxide Level ETHAN ([facility]) chloride level 98 mEq/L 98-107 Chloride Level BACKUS ([facility]) potassium serum 4.4 mEq/L 3.5-5.1 Potassium Serum ATHE NA ([facility]) anion gap 10 mEq/L 8-16 Anion Gap ETHAN ([facility]) calcium level 8.9 mg/dL 8.5-10.1 Calcium Level ETHAN ( [facility]) AST/SGOT 16 U/L 7-37 AST/SGOT ETHAN ([facility]) alkaline phosphatase 96 U/L 45-117 Alkaline Phosph atase ETHAN ([facility]) ALT/SGPT 35 U/L 12-78 ALT/SGPT ETHAN ([facility]) albumin 3.6 gm/dL 3.2-5.2 Albumin ETHAN ([facility]) total protein 6.4 gm/dL 6.4-8.2 Total Protein ETHAN ( [facility]) bilirubin,total 0.3 mg/dL 0.2-1.0 Bilirubin,total ATHE NA ([facility]) albumin/globulin ratio 1.2-2.2 Albumin/globu paola Ratio ETHAN ([facility]) ID Date Data Source [id number] 03/19/2020 11:23:00 AM EST ETHAN ([facility]) Name Value Range Interpretation Code Description Data Dee Dee rce(s) Supporting Document(s) white blood count 6.5 10 4.0-10.0 White Blood Count ETHAN ([facility]) red blood count 4.55 10 4.00-5.40 Red Blood Count ATHE ([facility]) hemoglobin 13.3 g/dL 12.0-15.5 Hemoglobin ETHAN ([facility]) hematocrit 41.5 % 36.0-47.0 Hematocrit ETHAN ([facility]) mean corpuscular volume 91.2 fL 80.0-96.0 Mean Corpusc ular Volume ETHAN ([facility]) mean corpuscular HGB conc 32.0 g/dL 32.0-36.5 Mean Corpu scular HGB Conc ETHAN ([facility]) red cell distribution width 13.2 % 11.5-14.5 Red Cell Distribution Width ETHAN ([facility]) mean corpuscular hemoglobin 29.2 pg 27.0-33.0 Mean Cor puscular Hemoglobin ETHAN ([facility]) platelet count, automated 276 10 150-450 Platelet C ount, Automated ETHAN ([facility]) neutrophils % 69.3 % 36.0-66.0 Above high normal Neutrophils % A THENA ([facility]) lymph % 22.7 % 24.0-44.0 Below low normal Lymph % ETHAN ( [facility]) mono % 5.2 % 0.0-5.0 Above high normal [place] % ETHAN ([facility]) eos % 2.0 % 0.0-3.0 Eos % ETHAN ([facility]) immature granulocyte % 0.3 % 0-3.0 Immature Gran ulocyte % ETHAN ([facility]) baso % 0.5 % 0.0-1.0 Baso % ETHAN ([facility]) neutrophils # 4.5 10 1.5-8.5 Neutrophils # ETHAN ( [facility]) nucleated red blood cell % 0.0 % 0-0 Nucleated Red Blood Cell % ETHAN ([facility]) lymph # 1.5 10 1.5-5.0 Lymph # ETHAN ([facility]) mono # 0.3 10 0.0-0.8 [place] # ETHAN ([facility]) eos # 0.1 10 0.0-0.5 Eos # ETHAN ([facility]) baso # 0.0 10 0.0-0.2 Baso # ETHAN ([facility]) ID Date Data Source [id number] 03/19/2020 11:23:00 AM EST ETHAN ([facility]) Name Value Range Interpretation Code Description Data Dee Dee rce(s) Supporting Document(s) lipase 189 U/L 73-393 Lipase ETHAN ([facility]) ID Date Data Source [id number] 03/19/2020 11:23:00 AM EST ETHAN ([facility]) Name Value Range Interpretation Code Description Data Dee Dee rce(s) Supporting Document(s) amylase 14 U/L 25-115 Below low normal Amylase ETHAN ( [facility]) ID Date Data Source [id number] 03/19/2020 11:23:00 AM EST ETHAN ([facility]) Name Value Range Interpretation Code Description Data Dee Dee rce(s) Supporting Document(s) glucose, fasting 328 mg/dL 70-100 Above high normal Glucose, Fas ting ETHAN ([facility]) blood urea nitrogen 11 mg/dL 7-18 Blood Urea Nitro gen ETHAN ([facility]) creatinine for GFR 0.74 mg/dL 0.55-1.30 Creatinine for GF R ETHAN ([facility]) glomerular filtration rate > 60.0 >58 Glomerula r Filtration Rate ETHAN ([facility]) potassium serum 4.4 mEq/L 3.5-5.1 Potassium Serum ATHE ([facility]) sodium level 134 mEq/L 136-145 Below low normal Sodium Level ATHE NA ([facility]) carbon dioxide level 26 mEq/L 21-32 Carbon Dioxide Level ETHAN ([facility]) chloride level 98 mEq/L 98-107 Chloride Level ETHAN ([facility]) anion gap 10 mEq/L 8-16 Anion Gap ETHAN ([facility]) calcium level 8.9 mg/dL 8.5-10.1 Calcium Level ETHAN ( [facility]) AST/SGOT 16 U/L 7-37 AST/SGOT ETHAN ([facility]) ALT/SGPT 35 U/L 12-78 ALT/SGPT ETHAN ([facility]) alkaline phosphatase 96 U/L 45-117 Alkaline Phosph atase ETHAN ([facility]) bilirubin,total 0.3 mg/dL 0.2-1.0 Bilirubin,total ATHE NA ([facility]) total protein 6.4 gm/dL 6.4-8.2 Total Protein ETHAN ( [facility]) albumin 3.6 gm/dL 3.2-5.2 Albumin ETHAN ([facility]) albumin/globulin ratio 1.2-2.2 Albumin/globu paola Ratio ETHAN ([facility]) ID Date Data Source [id number] 03/19/2020 11:23:00 AM EST ETHAN ([facility]) Name Value Range Interpretation Code Description Data Dee Dee rce(s) Supporting Document(s) white blood count 6.5 10 4.0-10.0 White Blood Count ETHAN ([facility]) hemoglobin 13.3 g/dL 12.0-15.5 Hemoglobin ETHAN ([facility]) red blood count 4.55 10 4.00-5.40 Red Blood Count ATHE NA ([facility]) hematocrit 41.5 % 36.0-47.0 Hematocrit ETHAN ([facility]) mean corpuscular volume 91.2 fL 80.0-96.0 Mean Corpusc ular Volume ETHAN ([facility]) red cell distribution width 13.2 % 11.5-14.5 Red Cell Distribution Width ETHAN ([facility]) mean corpuscular hemoglobin 29.2 pg 27.0-33.0 Mean Cor puscular Hemoglobin ETHAN ([facility]) mean corpuscular HGB conc 32.0 g/dL 32.0-36.5 Mean Corpu scular HGB Conc ETHAN ([facility]) platelet count, automated 276 10 150-450 Platelet C ount, Automated ETHAN ([facility]) neutrophils % 69.3 % 36.0-66.0 Above high normal Neutrophils % A THENA ([facility]) mono % 5.2 % 0.0-5.0 Above high normal [place] % ETHAN ([facility]) lymph % 22.7 % 24.0-44.0 Below low normal Lymph % ETHAN ( [facility]) eos % 2.0 % 0.0-3.0 Eos % ETHAN ([facility]) baso % 0.5 % 0.0-1.0 Baso % ETHAN ([facility]) immature granulocyte % 0.3 % 0-3.0 Immature Gran ulocyte % ETHAN ([facility]) neutrophils # 4.5 10 1.5-8.5 Neutrophils # ETHAN ( [facility]) nucleated red blood cell % 0.0 % 0-0 Nucleated Red Blood Cell % ETHAN ([facility]) lymph # 1.5 10 1.5-5.0 Lymph # ETHAN ([facility]) mono # 0.3 10 0.0-0.8 [place] # ETHAN ([facility]) eos # 0.1 10 0.0-0.5 Eos # ETHAN ([facility]) baso # 0.0 10 0.0-0.2 Baso # ETHAN ([facility]) ID Date Data Source [id number] 03/19/2020 11:23:00 AM EST ETHAN ([facility]) Name Value Range Interpretation Code Description Data Dee Dee rce(s) Supporting Document(s) lipase 189 U/L 73-393 Lipase ETHAN ([facility]) ID Date Data Source [id number] 03/19/2020 11:23:00 AM EST ETHAN ([facility]) Name Value Range Interpretation Code Description Data Dee Dee rce(s) Supporting Document(s) amylase 14 U/L 25-115 Below low normal Amylase ETHAN ( [facility]) ID Date Data Source [id number] 03/19/2020 11:23:00 AM EST ETHAN ([facility]) Name Value Range Interpretation Code Description Data Dee Dee rce(s) Supporting Document(s) glucose, fasting 328 mg/dL 70-100 Above high normal Glucose, Fas ting ETHAN ([facility]) blood urea nitrogen 11 mg/dL 7-18 Blood Urea Nitro gen ETHAN ([facility]) creatinine for GFR 0.74 mg/dL 0.55-1.30 Creatinine for GF R ETHAN ([facility]) glomerular filtration rate > 60.0 >58 Glomerula r Filtration Rate ETHAN ([facility]) sodium level 134 mEq/L 136-145 Below low normal Sodium Level ATHE NA ([facility]) potassium serum 4.4 mEq/L 3.5-5.1 Potassium Serum ATHE NA ([facility]) chloride level 98 mEq/L 98-107 Chloride Level ETHAN ([facility]) anion gap 10 mEq/L 8-16 Anion Gap ETHAN ([facility]) carbon dioxide level 26 mEq/L 21-32 Carbon Dioxide Level ETHAN ([facility]) AST/SGOT 16 U/L 7-37 AST/SGOT ETHAN ([facility]) calcium level 8.9 mg/dL 8.5-10.1 Calcium Level ETHAN ( [facility]) alkaline phosphatase 96 U/L 45-117 Alkaline Phosph atase ETHAN ([facility]) ALT/SGPT 35 U/L 12-78 ALT/SGPT ETHAN ([facility]) bilirubin,total 0.3 mg/dL 0.2-1.0 Bilirubin,total ATHE NA ([facility] [facility] total protein 6.4 gm/dL 6.4-8.2 Total Protein ETHAN ( [facility]) albumin 3.6 gm/dL 3.2-5.2 Albumin ETHAN ([facility]) albumin/globulin ratio 1.2-2.2 Albumin/globu paola Ratio ETHAN ([facility]) ID Date Data Source [id number] 03/19/2020 11:23:00 AM EST ETHAN ([facility]) Name Value Range Interpretation Code Description Data Dee Dee rce(s) Supporting Document(s) white blood count 6.5 10 4.0-10.0 White Blood Count ETHAN ([facility]) red blood count 4.55 10 4.00-5.40 Red Blood Count ATHE NA ([facility]) hematocrit 41.5 % 36.0-47.0 Hematocrit ETHAN ([facility]) hemoglobin 13.3 g/dL 12.0-15.5 Hemoglobin ETHAN ([facility]) mean corpuscular volume 91.2 fL 80.0-96.0 Mean Corpusc ular Volume ETHAN ([facility]) mean corpuscular hemoglobin 29.2 pg 27.0-33.0 Mean Cor puscular Hemoglobin ETHAN ([facility]) red cell distribution width 13.2 % 11.5-14.5 Red Cell Distribution Width ETHAN ([facility]) mean corpuscular HGB conc 32.0 g/dL 32.0-36.5 Mean Corpu scular HGB Conc ETHAN ([facility]) platelet count, automated 276 10 150-450 Platelet C ount, Automated ETHAN ([facility]) neutrophils % 69.3 % 36.0-66.0 Above high normal Neutrophils % A THENA ([facility]) mono % 5.2 % 0.0-5.0 Above high normal [place] % ETHAN ([facility]) lymph % 22.7 % 24.0-44.0 Below low normal Lymph % ETHAN ( [facility]) eos % 2.0 % 0.0-3.0 Eos % ETHAN ([facility]) baso % 0.5 % 0.0-1.0 Baso % BACKUS ([facility]) immature granulocyte % 0.3 % 0-3.0 Immature Gran ulocyte % ETHAN ([facility]) nucleated red blood cell % 0.0 % 0-0 Nucleated Red Blood Cell % ETHAN ([facility]) lymph # 1.5 10 1.5-5.0 Lymph # ETHAN ([facility]) neutrophils # 4.5 10 1.5-8.5 Neutrophils # ETHAN ( [facility]) mono # 0.3 10 0.0-0.8 [place] # ETHAN ([facility]) eos # 0.1 10 0.0-0.5 Eos # ETHAN ([facility]) baso # 0.0 10 0.0-0.2 Baso # ETHAN ([facility]) ID Date Data Source [id number] 03/19/2020 11:23:00 AM EST ETHAN ([facility]) Name Value Range Interpretation Code Description Data Dee Dee rce(s) Supporting Document(s) lipase 189 U/L 73-393 Lipase ETHAN ([facility]) ID Date Data Source [id number] 03/19/2020 11:23:00 AM EST ETHAN ([facility]) Name Value Range Interpretation Code Description Data Dee Dee rce(s) Supporting Document(s) amylase 14 U/L 25-115 Below low normal Amylase BACKUS ( [facility]) ID Date Data Source [id number] 03/19/2020 11:23:00 AM EST ETHAN ([facility]) Name Value Range Interpretation Code Description Data Dee Dee rce(s) Supporting Document(s) glucose, fasting 328 mg/dL 70-100 Above high normal Glucose, Fas ting ETHAN ([facility]) creatinine for GFR 0.74 mg/dL 0.55-1.30 Creatinine for GF R ETHAN ([facility]) blood urea nitrogen 11 mg/dL 7-18 Blood Urea Nitro gen ETHAN ([facility]) glomerular filtration rate > 60.0 >58 Glomerula r Filtration Rate ETHAN ([facility]) potassium serum 4.4 mEq/L 3.5-5.1 Potassium Serum ATH NA ([facility]) sodium level 134 mEq/L 136-145 Below low normal Sodium Level ATHE NA ([facility]) carbon dioxide level 26 mEq/L 21-32 Carbon Dioxide Level ETHAN ([facility]) anion gap 10 mEq/L 8-16 Anion Gap ETHAN ([facility]) chloride level 98 mEq/L 98-107 Chloride Level ETHAN ([facility]) calcium level 8.9 mg/dL 8.5-10.1 Calcium Level ETHNA ( [facility]) AST/SGOT 16 U/L 7-37 AST/SGOT ETHAN ([facility]) ALT/SGPT 35 U/L 12-78 ALT/SGPT ETHAN ([facility]) total protein 6.4 gm/dL 6.4-8.2 Total Protein ETHAN ( [facility]) alkaline phosphatase 96 U/L 45-117 Alkaline Phosph atase ETHAN ([facility]) bilirubin,total 0.3 mg/dL 0.2-1.0 Bilirubin,total ATHE NA ([facility]) albumin 3.6 gm/dL 3.2-5.2 Albumin ETHAN ([facility]) albumin/globulin ratio 1.2-2.2 Albumin/globu paola Ratio ETHAN ([facility]) ID Date Data Source [id number] 03/19/2020 11:23:00 AM EST ETHAN ([facility]) Name Value Range Interpretation Code Description Data Dee Dee rce(s) Supporting Document(s) white blood count 6.5 10 4.0-10.0 White Blood Count ETHAN ([facility]) hematocrit 41.5 % 36.0-47.0 Hematocrit ETHAN ([facility]) hemoglobin 13.3 g/dL 12.0-15.5 Hemoglobin ETHAN ([facility]) red blood count 4.55 10 4.00-5.40 Red Blood Count ATHE NA ([facility]) mean corpuscular hemoglobin 29.2 pg 27.0-33.0 Mean Cor puscular Hemoglobin ETHAN ([facility]) mean corpuscular volume 91.2 fL 80.0-96.0 Mean Corpusc ular Volume ETHAN ([facility]) red cell distribution width 13.2 % 11.5-14.5 Red Cell Distribution Width ETHAN ([facility]) mean corpuscular HGB conc 32.0 g/dL 32.0-36.5 Mean Corpu scular HGB Conc ETHAN ([facility]) neutrophils % 69.3 % 36.0-66.0 Above high normal Neutrophils % A THENA ([facility]) lymph % 22.7 % 24.0-44.0 Below low normal Lymph % ETHAN ( [facility]) platelet count, automated 276 10 150-450 Platelet C ount, Automated ETHAN ([facility]) baso % 0.5 % 0.0-1.0 Baso % ETHAN ([facility]) eos % 2.0 % 0.0-3.0 Eos % ETHAN ([facility]) mono % 5.2 % 0.0-5.0 Above high normal [place] % ETHAN ([facility]) immature granulocyte % 0.3 % 0-3.0 Immature Gran ulocyte % TEHAN ([facility]) nucleated red blood cell % 0.0 % 0-0 Nucleated Red Blood Cell % ETHAN ([facility]) mono # 0.3 10 0.0-0.8 [place] # ETHAN ([facility]) neutrophils # 4.5 10 1.5-8.5 Neutrophils # ETHAN ( [facility]) lymph # 1.5 10 1.5-5.0 Lymph # ETHAN ([facility]) eos # 0.1 10 0.0-0.5 Eos # ETHAN ([facility]) baso # 0.0 10 0.0-0.2 Baso # ETHAN ([facility]) ID Date Data Source [id number] 03/19/2020 11:23:00 AM EST ETHAN ([facility]) Name Value Range Interpretation Code Description Data Dee Dee rce(s) Supporting Document(s) lipase 189 U/L 73-393 Lipase BACKUS ([facility]) ID Date Data Source [id number] 03/19/2020 11:23:00 AM EST BACKUS ([facility]) Name Value Range Interpretation Code Description Data Dee Dee rce(s) Supporting Document(s) amylase 14 U/L 25-115 Below low normal Amylase BACKUS ( [facility]) ID Date Data Source [id number] 03/19/2020 11:23:00 AM EST ETHAN ([facility]) Name Value Range Interpretation Code Description Data Dee Dee rce(s) Supporting Document(s) glucose, fasting 328 mg/dL 70-100 Above high normal Glucose, Fas ting BACKUS ([facility]) blood urea nitrogen 11 mg/dL 7-18 Blood Urea Nitro gen BACKUS ([facility]) glomerular filtration rate > 60.0 >58 Glomerula r Filtration Rate ETHAN ([facility]) creatinine for GFR 0.74 mg/dL 0.55-1.30 Creatinine for GF R ETHAN ([facility]) potassium serum 4.4 mEq/L 3.5-5.1 Potassium Serum ATHE ([facility]) chloride level 98 mEq/L 98-107 Chloride Level ETHAN ([facility]) sodium level 134 mEq/L 136-145 Below low normal Sodium Level ATHE NA ([facility]) carbon dioxide level 26 mEq/L 21-32 Carbon Dioxide Level ETHAN ([facility]) anion gap 10 mEq/L 8-16 Anion Gap ETHAN ([facility]) calcium level 8.9 mg/dL 8.5-10.1 Calcium Level ETHAN ( [facility]) AST/SGOT 16 U/L 7-37 AST/SGOT ETHAN ([facility]) bilirubin,total 0.3 mg/dL 0.2-1.0 Bilirubin,total ATHE ([facility]) alkaline phosphatase 96 U/L 45-117 Alkaline Phosph atase ETHAN ([facility]) ALT/SGPT 35 U/L 12-78 ALT/SGPT ETHAN ([facility]) total protein 6.4 gm/dL 6.4-8.2 Total Protein ETHAN ( [facility]) albumin 3.6 gm/dL 3.2-5.2 Albumin ETHAN ([facility]) albumin/globulin ratio 1.2-2.2 Albumin/globu paola Ratio ETHAN ([facility]) ID Date Data Source [id number] 03/19/2020 11:23:00 AM EST ETHAN ([facility]) Name Value Range Interpretation Code Description Data Dee Dee rce(s) Supporting Document(s) white blood count 6.5 10 4.0-10.0 White Blood Count ETHAN ([facility]) red blood count 4.55 10 4.00-5.40 Red Blood Count ATHE ([facility]) hemoglobin 13.3 g/dL 12.0-15.5 Hemoglobin ETHAN ([facility]) mean corpuscular volume 91.2 fL 80.0-96.0 Mean Corpusc ular Volume ETHAN ([facility]) hematocrit 41.5 % 36.0-47.0 Hematocrit ETHAN ([facility]) mean corpuscular hemoglobin 29.2 pg 27.0-33.0 Mean Cor puscular Hemoglobin ETHAN ([facility]) red cell distribution width 13.2 % 11.5-14.5 Red Cell Distribution Width ETHAN ([facility]) mean corpuscular HGB conc 32.0 g/dL 32.0-36.5 Mean Corpu scular HGB Conc ETHAN ([facility]) platelet count, automated 276 10 150-450 Platelet C ount, Automated ETHAN ([facility]) neutrophils % 69.3 % 36.0-66.0 Above high normal Neutrophils % A THENA ([facility]) lymph % 22.7 % 24.0-44.0 Below low normal Lymph % ETHAN ( [facility]) mono % 5.2 % 0.0-5.0 Above high normal [place] % ETHAN ([facility]) eos % 2.0 % 0.0-3.0 Eos % TEHAN ([facility]) baso % 0.5 % 0.0-1.0 Baso % BACKUS ([facility]) immature granulocyte % 0.3 % 0-3.0 Immature Gran ulocyte % ETHAN ([facility]) lymph # 1.5 10 1.5-5.0 Lymph # ETHAN ([facility]) neutrophils # 4.5 10 1.5-8.5 Neutrophils # ETHAN ( [facility]) nucleated red blood cell % 0.0 % 0-0 Nucleated Red Blood Cell % ETHAN ([facility]) baso # 0.0 10 0.0-0.2 Baso # ETHAN ([facility]) mono # 0.3 10 0.0-0.8 [place] # ETHAN ([facility]) eos # 0.1 10 0.0-0.5 Eos # ETHAN ([facility]) ID Date Data Source [id number] 03/19/2020 11:23:00 AM EST ETHAN ([facility]) Name Value Range Interpretation Code Description Data Dee Dee rce(s) Supporting Document(s) lipase 189 U/L 73-393 Lipase ETHAN ([facility]) ID Date Data Source [id number] 03/19/2020 11:23:00 AM EST ETHAN ([facility]) Name Value Range Interpretation Code Description Data Dee Dee rce(s) Supporting Document(s) amylase 14 U/L 25-115 Below low normal Amylase ETHAN ( [facility]) ID Date Data Source [id number] 03/19/2020 11:23:00 AM EST ETHAN ([facility]) Name Value Range Interpretation Code Description Data Dee Dee rce(s) Supporting Document(s) glucose, fasting 328 mg/dL 70-100 Above high normal Glucose, Fas ting ETHAN ([facility]) blood urea nitrogen 11 mg/dL 7-18 Blood Urea Nitro gen ETHAN ([facility]) creatinine for GFR 0.74 mg/dL 0.55-1.30 Creatinine for GF R ETHAN ([facility]) glomerular filtration rate > 60.0 >58 Glomerula r Filtration Rate ETHAN ([facility]) sodium level 134 mEq/L 136-145 Below low normal Sodium Level ATHE NA ([facility]) potassium serum 4.4 mEq/L 3.5-5.1 Potassium Serum ATHE NA ([facility]) chloride level 98 mEq/L 98-107 Chloride Level ETHAN ([facility]) anion gap 10 mEq/L 8-16 Anion Gap ETHAN ([facility]) carbon dioxide level 26 mEq/L 21-32 Carbon Dioxide Level ETHAN ([facility]) AST/SGOT 16 U/L 7-37 AST/SGOT ETHAN ([facility]) calcium level 8.9 mg/dL 8.5-10.1 Calcium Level ETHAN ( [facility]) ALT/SGPT 35 U/L 12-78 ALT/SGPT ETHAN ([facility]) bilirubin,total 0.3 mg/dL 0.2-1.0 Bilirubin,total ATHE NA ([facility]) total protein 6.4 gm/dL 6.4-8.2 Total Protein ETHAN ( [facility]) alkaline phosphatase 96 U/L 45-117 Alkaline Phosph atase ETHAN ([facility]) albumin/globulin ratio 1.2-2.2 Albumin/globu paola Ratio ETHAN ([facility]) albumin 3.6 gm/dL 3.2-5.2 Albumin ETHAN ([facility]) ID Date Data Source [id number] 03/19/2020 11:23:00 AM EST ETHAN ([facility]) Name Value Range Interpretation Code Description Data Dee Dee rce(s) Supporting Document(s) white blood count 6.5 10 4.0-10.0 White Blood Count ETHAN ([facility]) hemoglobin 13.3 g/dL 12.0-15.5 Hemoglobin ETHAN ([facility]) red blood count 4.55 10 4.00-5.40 Red Blood Count ATHE ([facility]) mean corpuscular volume 91.2 fL 80.0-96.0 Mean Corpusc ular Volume ETHAN ([facility]) hematocrit 41.5 % 36.0-47.0 Hematocrit ETHAN ([facility]) red cell distribution width 13.2 % 11.5-14.5 Red Cell Distribution Width ETHAN ([facility]) mean corpuscular hemoglobin 29.2 pg 27.0-33.0 Mean Cor puscular Hemoglobin ETHAN ([facility]) mean corpuscular HGB conc 32.0 g/dL 32.0-36.5 Mean Corpu scular HGB Conc ETHAN ([facility]) neutrophils % 69.3 % 36.0-66.0 Above high normal Neutrophils % A THENA ([facility]) platelet count, automated 276 10 150-450 Platelet C ount, Automated ETHAN ([facility]) lymph % 22.7 % 24.0-44.0 Below low normal Lymph % ETHAN ( [facility]) mono % 5.2 % 0.0-5.0 Above high normal [place] % ETHAN ([facility]) eos % 2.0 % 0.0-3.0 Eos % ETHAN ([facility]) baso % 0.5 % 0.0-1.0 Baso % ETHAN ([facility]) immature granulocyte % 0.3 % 0-3.0 Immature Gran ulocyte % ETHAN ([facility]) nucleated red blood cell % 0.0 % 0-0 Nucleated Red Blood Cell % ETHAN ([facility]) lymph # 1.5 10 1.5-5.0 Lymph # ETHAN ([facility]) neutrophils # 4.5 10 1.5-8.5 Neutrophils # ETHAN ( [facility]) mono # 0.3 10 0.0-0.8 [place] # ETHAN ([facility]) baso # 0.0 10 0.0-0.2 Baso # ETHAN ([facility]) eos # 0.1 10 0.0-0.5 Eos # ETHAN ([facility]) ID Date Data Source [id number] 03/19/2020 11:23:00 AM EST ETHAN ([facility]) Name Value Range Interpretation Code Description Data Dee Dee rce(s) Supporting Document(s) lipase 189 U/L 73-393 Lipase ETHAN ([facility]) ID Date Data Source [id number] 03/19/2020 11:23:00 AM EST ETHAN ([facility]) Name Value Range Interpretation Code Description Data Dee Dee rce(s) Supporting Document(s) amylase 14 U/L 25-115 Below low normal Amylase ETHAN ( [facility]) ID Date Data Source [id number] 03/19/2020 11:23:00 AM EST ETHAN ([facility]) Name Value Range Interpretation Code Description Data Dee Dee rce(s) Supporting Document(s) glucose, fasting 328 mg/dL 70-100 Above high normal Glucose, Fas ting ETHAN ([facility]) glomerular filtration rate > 60.0 >58 Glomerula r Filtration Rate ETHAN ([facility]) creatinine for GFR 0.74 mg/dL 0.55-1.30 Creatinine for GF R ETHAN ([facility]) blood urea nitrogen 11 mg/dL 7-18 Blood Urea Nitro gen ETHAN ([facility]) sodium level 134 mEq/L 136-145 Below low normal Sodium Level ATHE NA ([facility]) potassium serum 4.4 mEq/L 3.5-5.1 Potassium Serum ATHE ([facility]) chloride level 98 mEq/L 98-107 Chloride Level ETHAN ([facility]) anion gap 10 mEq/L 8-16 Anion Gap ETHAN ([facility]) carbon dioxide level 26 mEq/L 21-32 Carbon Dioxide Level ETHAN ([facility]) AST/SGOT 16 U/L 7-37 AST/SGOT ETHAN ([facility]) calcium level 8.9 mg/dL 8.5-10.1 Calcium Level ETHAN ( [facility]) ALT/SGPT 35 U/L 12-78 ALT/SGPT ETHAN ([facility]) bilirubin,total 0.3 mg/dL 0.2-1.0 Bilirubin,total ATHE ([facility]) alkaline phosphatase 96 U/L 45-117 Alkaline Phosph atase ETHAN ([facility]) total protein 6.4 gm/dL 6.4-8.2 Total Protein ETHAN ( [facility]) albumin 3.6 gm/dL 3.2-5.2 Albumin ETHAN ([facility]) albumin/globulin ratio 1.2-2.2 Albumin/globu paola Ratio ETHAN ([facility]) ID Date Data Source [id number] 03/19/2020 11:23:00 AM EST BACKUS ([facility]) Name Value Range Interpretation Code Description Data Dee Dee rce(s) Supporting Document(s) white blood count 6.5 10 4.0-10.0 White Blood Count ETHAN ([facility]) red blood count 4.55 10 4.00-5.40 Red Blood Count ATHE NA ([facility]) mean corpuscular volume 91.2 fL 80.0-96.0 Mean Corpusc ular Volume ETHAN ([facility]) hematocrit 41.5 % 36.0-47.0 Hematocrit ETHAN ([facility]) hemoglobin 13.3 g/dL 12.0-15.5 Hemoglobin ETHAN ([facility]) mean corpuscular hemoglobin 29.2 pg 27.0-33.0 Mean Cor puscular Hemoglobin ETHAN ([facility]) mean corpuscular HGB conc 32.0 g/dL 32.0-36.5 Mean Corpu scular HGB Conc ETHAN ([facility]) neutrophils % 69.3 % 36.0-66.0 Above high normal Neutrophils % A THENA ([facility]) red cell distribution width 13.2 % 11.5-14.5 Red Cell Distribution Width ETHAN ([facility]) platelet count, automated 276 10 150-450 Platelet C ount, Automated ETHAN ([facility]) lymph % 22.7 % 24.0-44.0 Below low normal Lymph % ETHAN ( [facility]) mono % 5.2 % 0.0-5.0 Above high normal [place] % ETHAN ([facility]) eos % 2.0 % 0.0-3.0 Eos % ETHAN ([facility]) baso % 0.5 % 0.0-1.0 Baso % ETHAN ([facility]) nucleated red blood cell % 0.0 % 0-0 Nucleated Red Blood Cell % ETHAN ([facility]) immature granulocyte % 0.3 % 0-3.0 Immature Gran ulocyte % ETHAN ([facility]) lymph # 1.5 10 1.5-5.0 Lymph # ETHAN ([facility]) neutrophils # 4.5 10 1.5-8.5 Neutrophils # ETHAN ( [facility]) mono # 0.3 10 0.0-0.8 [place] # ETHAN ([facility]) eos # 0.1 10 0.0-0.5 Eos # ETHAN ([facility]) baso # 0.0 10 0.0-0.2 Baso # ETHAN ([facility]) ID Date Data Source [id number] 03/19/2020 11:23:00 AM EST ETHAN ([facility]) Name Value Range Interpretation Code Description Data Dee Dee rce(s) Supporting Document(s) lipase 189 U/L 73-393 Lipase BACKUS ([facility]) ID Date Data Source [id number] 03/19/2020 11:23:00 AM EST ETHAN ([facility]) Name Value Range Interpretation Code Description Data Dee Dee rce(s) Supporting Document(s) amylase 14 U/L 25-115 Below low normal Amylase BACKUS ( [facility]) ID Date Data Source [id number] 03/19/2020 11:23:00 AM EST ETHAN ([facility]) Name Value Range Interpretation Code Description Data Dee Dee rce(s) Supporting Document(s) blood urea nitrogen 11 mg/dL 7-18 Blood Urea Nitro gen ETHAN ([facility]) glucose, fasting 328 mg/dL 70-100 Above high normal Glucose, Fas ting BACKUS ([facility]) creatinine for GFR 0.74 mg/dL 0.55-1.30 Creatinine for GF R ETHAN ([facility]) sodium level 134 mEq/L 136-145 Below low normal Sodium Level ATHE NA ([facility]) glomerular filtration rate > 60.0 >58 Glomerula r Filtration Rate ETHAN ([facility]) carbon dioxide level 26 mEq/L 21-32 Carbon Dioxide Level ETHAN ([facility]) potassium serum 4.4 mEq/L 3.5-5.1 Potassium Serum ATHE NA ([facility]) chloride level 98 mEq/L 98-107 Chloride Level ETHAN ([facility]) AST/SGOT 16 U/L 7-37 AST/SGOT ETHAN ([facility]) anion gap 10 mEq/L 8-16 Anion Gap ETHAN ([facility]) calcium level 8.9 mg/dL 8.5-10.1 Calcium Level ETHAN ( [facility]) alkaline phosphatase 96 U/L 45-117 Alkaline Phosph atase ETHAN ([facility]) ALT/SGPT 35 U/L 12-78 ALT/SGPT ETHAN ([facility]) bilirubin,total 0.3 mg/dL 0.2-1.0 Bilirubin,total ATHE NA ([facility]) albumin 3.6 gm/dL 3.2-5.2 Albumin ETHAN ([facility]) total protein 6.4 gm/dL 6.4-8.2 Total Protein ETHAN ( [facility]) albumin/globulin ratio 1.2-2.2 Albumin/globu paola Ratio ETHAN ([facility]) ID Date Data Source [id number] 03/19/2020 11:23:00 AM EST ETHAN ([facility]) Name Value Range Interpretation Code Description Data Dee Dee rce(s) Supporting Document(s) white blood count 6.5 10 4.0-10.0 White Blood Count ETHAN ([facility]) red blood count 4.55 10 4.00-5.40 Red Blood Count ATHE ([facility]) hematocrit 41.5 % 36.0-47.0 Hematocrit ETHAN ([facility]) hemoglobin 13.3 g/dL 12.0-15.5 Hemoglobin ETHAN ([facility]) mean corpuscular hemoglobin 29.2 pg 27.0-33.0 Mean Cor puscular Hemoglobin ETHAN ([facility]) mean corpuscular volume 91.2 fL 80.0-96.0 Mean Corpusc ular Volume ETHAN ([facility]) red cell distribution width 13.2 % 11.5-14.5 Red Cell Distribution Width ETHAN ([facility]) platelet count, automated 276 10 150-450 Platelet C ount, Automated ETHAN ([facility]) mean corpuscular HGB conc 32.0 g/dL 32.0-36.5 Mean Corpu scular HGB Conc ETHAN ([facility]) lymph % 22.7 % 24.0-44.0 Below low normal Lymph % ETHAN ( [facility]) mono % 5.2 % 0.0-5.0 Above high normal [place] % ETHAN ([facility]) neutrophils % 69.3 % 36.0-66.0 Above high normal Neutrophils % A THENA ([facility]) eos % 2.0 % 0.0-3.0 Eos % BACKUS ([facility]) immature granulocyte % 0.3 % 0-3.0 Immature Gran ulocyte % ETHAN ([facility]) baso % 0.5 % 0.0-1.0 Baso % ETHAN ([facility]) nucleated red blood cell % 0.0 % 0-0 Nucleated Red Blood Cell % ETHAN ([facility]) neutrophils # 4.5 10 1.5-8.5 Neutrophils # ETHAN ( [facility]) lymph # 1.5 10 1.5-5.0 Lymph # ETHAN ([facility]) eos # 0.1 10 0.0-0.5 Eos # ETHAN ([facility]) mono # 0.3 10 0.0-0.8 [place] # ETHAN ([facility]) baso # 0.0 10 0.0-0.2 Baso # ETHAN ([facility]) ID Date Data Source [id number] 03/19/2020 11:23:00 AM EST ETHAN ([facility]) Name Value Range Interpretation Code Description Data Dee Dee rce(s) Supporting Document(s) lipase 189 U/L 73-393 Lipase BACKUS ([facility]) ID Date Data Source [id number] 03/19/2020 11:23:00 AM EST ETHAN ([facility]) Name Value Range Interpretation Code Description Data Dee Dee rce(s) Supporting Document(s) amylase 14 U/L 25-115 Below low normal Amylase ETHAN ( [facility]) ID Date Data Source [id number] 03/19/2020 11:23:00 AM EST ETHAN ([facility]) Name Value Range Interpretation Code Description Data Dee Dee rce(s) Supporting Document(s) glucose, fasting 328 mg/dL 70-100 Above high normal Glucose, Fas ting ETHAN ([facility]) blood urea nitrogen 11 mg/dL 7-18 Blood Urea Nitro gen ETHAN ([facility]) glomerular filtration rate > 60.0 >58 Glomerula r Filtration Rate ETHAN ([facility]) creatinine for GFR 0.74 mg/dL 0.55-1.30 Creatinine for GF R BACKUS ([facility]) sodium level 134 mEq/L 136-145 Below low normal Sodium Level ATHE ([facility]) potassium serum 4.4 mEq/L 3.5-5.1 Potassium Serum ATHE ([facility]) anion gap 10 mEq/L 8-16 Anion Gap ETHAN ([facility]) chloride level 98 mEq/L 98-107 Chloride Level ETHAN ([facility]) carbon dioxide level 26 mEq/L 21-32 Carbon Dioxide Level ETHAN ([facility]) calcium level 8.9 mg/dL 8.5-10.1 Calcium Level ETHAN ( [facility]) ALT/SGPT 35 U/L 12-78 ALT/SGPT ETHAN ([facility]) AST/SGOT 16 U/L 7-37 AST/SGOT ETHAN ([facility]) alkaline phosphatase 96 U/L 45-117 Alkaline Phosph atase ETHAN ([facility]) bilirubin,total 0.3 mg/dL 0.2-1.0 Bilirubin,total ATHE NA ([facility]) albumin 3.6 gm/dL 3.2-5.2 Albumin ETHAN ([facility]) total protein 6.4 gm/dL 6.4-8.2 Total Protein ETHAN ( [facility]) albumin/globulin ratio 1.2-2.2 Albumin/globu paola Ratio ETHAN ([facility]) ID Date Data Source [id number] 03/19/2020 11:23:00 AM EST ETHAN ([facility]) Name Value Range Interpretation Code Description Data Dee Dee rce(s) Supporting Document(s) white blood count 6.5 10 4.0-10.0 White Blood Count ETHAN ([facility]) red blood count 4.55 10 4.00-5.40 Red Blood Count ATHE NA ([facility]) hemoglobin 13.3 g/dL 12.0-15.5 Hemoglobin ETHAN ([facility]) hematocrit 41.5 % 36.0-47.0 Hematocrit ETHAN ([facility]) mean corpuscular volume 91.2 fL 80.0-96.0 Mean Corpusc ular Volume ETHAN ([facility]) mean corpuscular hemoglobin 29.2 pg 27.0-33.0 Mean Cor puscular Hemoglobin ETHAN ([facility]) red cell distribution width 13.2 % 11.5-14.5 Red Cell Distribution Width ETHAN ([facility]) mean corpuscular HGB conc 32.0 g/dL 32.0-36.5 Mean Corpu scular HGB Conc ETHAN ([facility]) platelet count, automated 276 10 150-450 Platelet C ount, Automated ETHAN ([facility]) neutrophils % 69.3 % 36.0-66.0 Above high normal Neutrophils % A THENA ([facility]) lymph % 22.7 % 24.0-44.0 Below low normal Lymph % ETHAN ( [facility]) mono % 5.2 % 0.0-5.0 Above high normal [place] % ETHAN ([facility]) baso % 0.5 % 0.0-1.0 Baso % ETHAN ([facility]) eos % 2.0 % 0.0-3.0 Eos % ETHAN ([facility]) immature granulocyte % 0.3 % 0-3.0 Immature Gran ulocyte % ETHAN ([facility]) neutrophils # 4.5 10 1.5-8.5 Neutrophils # ETHAN ( [facility]) nucleated red blood cell % 0.0 % 0-0 Nucleated Red Blood Cell % ETHAN ([facility]) lymph # 1.5 10 1.5-5.0 Lymph # ETHAN ([facility]) mono # 0.3 10 0.0-0.8 [place] # ETHAN ([facility]) eos # 0.1 10 0.0-0.5 Eos # ETHAN ([facility]) baso # 0.0 10 0.0-0.2 Baso # ETHAN ([facility]) ID Date Data Source [id number] 03/19/2020 11:23:00 AM EST ETHAN ([facility]) Name Value Range Interpretation Code Description Data Dee Dee rce(s) Supporting Document(s) lipase 189 U/L 73-393 Lipase BACKUS ([facility]) ID Date Data Source [id number] 03/19/2020 11:23:00 AM EST BACKUS ([facility]) Name Value Range Interpretation Code Description Data Dee Dee rce(s) Supporting Document(s) amylase 14 U/L 25-115 Below low normal Amylase BACKUS ( [facility]) ID Date Data Source [id number] 03/19/2020 11:23:00 AM EST ETHAN ([facility]) Name Value Range Interpretation Code Description Data Dee Dee rce(s) Supporting Document(s) glucose, fasting 328 mg/dL 70-100 Above high normal Glucose, Fas ting BACKUS ([facility]) blood urea nitrogen 11 mg/dL 7-18 Blood Urea Nitro gen ETHAN ([facility]) creatinine for GFR 0.74 mg/dL 0.55-1.30 Creatinine for GF R BACKUS ([facility]) glomerular filtration rate > 60.0 >58 Glomerula r Filtration Rate BACKUS ([facility]) potassium serum 4.4 mEq/L 3.5-5.1 Potassium Serum ATHE ([facility]) sodium level 134 mEq/L 136-145 Below low normal Sodium Level ATHE NA ([facility]) chloride level 98 mEq/L 98-107 Chloride Level ETHAN ([facility]) carbon dioxide level 26 mEq/L 21-32 Carbon Dioxide Level ETHAN ([facility]) anion gap 10 mEq/L 8-16 Anion Gap ETHAN ([facility]) calcium level 8.9 mg/dL 8.5-10.1 Calcium Level ETHAN ( [facility]) AST/SGOT 16 U/L 7-37 AST/SGOT ETHAN ([facility]) ALT/SGPT 35 U/L 12-78 ALT/SGPT ETHAN ([facility]) alkaline phosphatase 96 U/L 45-117 Alkaline Phosph atase ETHAN ([facility]) total protein 6.4 gm/dL 6.4-8.2 Total Protein ETHAN ( [facility]) bilirubin,total 0.3 mg/dL 0.2-1.0 Bilirubin,total ATHE ([facility]) albumin 3.6 gm/dL 3.2-5.2 Albumin ETHAN ([facility]) albumin/globulin ratio 1.2-2.2 Albumin/globu paola Ratio ETHAN ([facility]) ID Date Data Source [id number] 03/19/2020 11:23:00 AM EST ETHAN ([facility]) Name Value Range Interpretation Code Description Data Dee Dee rce(s) Supporting Document(s) white blood count 6.5 10 4.0-10.0 White Blood Count ETHAN ([facility]) hemoglobin 13.3 g/dL 12.0-15.5 Hemoglobin ETHAN ([facility]) hematocrit 41.5 % 36.0-47.0 Hematocrit ETHAN ([facility]) red blood count 4.55 10 4.00-5.40 Red Blood Count ATHE ([facility]) mean corpuscular hemoglobin 29.2 pg 27.0-33.0 Mean Cor puscular Hemoglobin ETHAN ([facility]) mean corpuscular volume 91.2 fL 80.0-96.0 Mean Corpusc ular Volume ETHAN ([facility]) mean corpuscular HGB conc 32.0 g/dL 32.0-36.5 Mean Corpu scular HGB Conc ETHAN ([facility]) red cell distribution width 13.2 % 11.5-14.5 Red Cell Distribution Width ETHAN ([facility]) platelet count, automated 276 10 150-450 Platelet C ount, Automated ETHAN ([facility]) neutrophils % 69.3 % 36.0-66.0 Above high normal Neutrophils % A THENA ([facility]) lymph % 22.7 % 24.0-44.0 Below low normal Lymph % BACKUS ( [facility]) mono % 5.2 % 0.0-5.0 Above high normal [place] % ETHAN ([facility]) baso % 0.5 % 0.0-1.0 Baso % ETHAN ([facility]) eos % 2.0 % 0.0-3.0 Eos % ETHAN ([facility]) immature granulocyte % 0.3 % 0-3.0 Immature Gran ulocyte % ETHAN ([facility]) nucleated red blood cell % 0.0 % 0-0 Nucleated Red Blood Cell % ETHAN ([facility]) neutrophils # 4.5 10 1.5-8.5 Neutrophils # ETHAN ( [facility]) lymph # 1.5 10 1.5-5.0 Lymph # ETHAN ([facility]) mono # 0.3 10 0.0-0.8 [place] # ETHAN ([facility]) baso # 0.0 10 0.0-0.2 Baso # ETHAN ([facility]) eos # 0.1 10 0.0-0.5 Eos # ETHAN ([facility]) ID Date Data Source [id number] 03/19/2020 10:50:00 AM EST BACKUS ([facility]) Name Value Range Interpretation Code Description Data Dee Dee rce(s) Supporting Document(s) ID Date Data Source [id number] 03/19/2020 10:50:00 AM EST ETHAN ([facility]) Name Value Range Interpretation Code Description Data Dee Dee rce(s) Supporting Document(s) ID Date Data Source [id number] 03/19/2020 10:50:00 AM EST ETHAN ([facility]) Name Value Range Interpretation Code Description Data Dee Dee rce(s) Supporting Document(s) ID Date Data Source [id number] 03/19/2020 10:50:00 AM EST ETHAN ([facility]) Name Value Range Interpretation Code Description Data Dee Dee rce(s) Supporting Document(s) ID Date Data Source [id number] 03/19/2020 10:50:00 AM EST ETHAN ([facility]) Name Value Range Interpretation Code Description Data Ede Dee rce(s) Supporting Document(s) ID Date Data Source [id number] 03/19/2020 10:50:00 AM EST ETHAN ([facility]) Name Value Range Interpretation Code Description Data Dee Dee rce(s) Supporting Document(s) ID Date Data Source [id number] 03/19/2020 10:50:00 AM EST ETHAN ([facility]) Name Value Range Interpretation Code Description Data Dee Dee rce(s) Supporting Document(s) ID Date Data Source [id number] 03/19/2020 10:50:00 AM EST ETHAN [facility]) Name Value Range Interpretation Code Description Data Dee Dee rce(s) Supporting Document(s) ID Date Data Source [id number] 03/19/2020 10:50:00 AM EST ETHAN ([facility]) Name Value Range Interpretation Code Description Data Dee Dee rce(s) Supporting Document(s) ID Date Data Source [id number] 03/19/2020 10:50:00 AM EST ETHAN ([facility]) Name Value Range Interpretation Code Description Data Dee Dee rce(s) Supporting Document(s) ID Date Data Source [id number] 03/19/2020 10:50:00 AM EST ETHAN ([facility]) Name Value Range Interpretation Code Description Data Dee Dee rce(s) Supporting Document(s) ID Date Data Source [id number] 03/19/2020 10:50:00 AM EST ETHAN ([facility]) Name Value Range Interpretation Code Description Data Dee Dee rce(s) Supporting Document(s) ID Date Data Source [id number] 03/19/2020 10:50:00 AM EST ETHAN ([facility]) Name Value Range Interpretation Code Description Data Dee Dee rce(s) Supporting Document(s) ID Date Data Source [id number] 02/20/2020 09:08:00 AM EST ETHAN ([facility]) Name Value Range Interpretation Code Description Data Dee Dee rce(s) Supporting Document(s) ricky/creat ratio 94.4 mcg/mg 0.0-30.0 Above high normal Ricky/creat Ra tracy ETHAN ([facility]) malb urine siemens 118.0 mg/L Malb Urine Siemen s ETHAN ([facility]) creatinine, urine 125.0 mg/dL Creatinine, Urine ETHAN ([facility]) ID Date Data Source [id number] 02/20/2020 09:08:00 AM EST ETHAN ([facility]) Name Value Range Interpretation Code Description Data Dee Dee rce(s) Supporting Document(s) ricky/creat ratio 94.4 mcg/mg 0.0-30.0 Above high normal Ricky/creat Ra tracy ETHAN ([facility]) malb urine siem[place] 118.0 mg/L Malb Urine Siemen s ETHAN ([facility]) creatinine, urine 125.0 mg/dL Creatinine, Urine ETHAN ([facility]) ID Date Data Source [id number] 02/20/2020 09:08:00 AM EST ETHAN ([facility]) Name Value Range Interpretation Code Description Data Dee Dee rce(s) Supporting Document(s) malb urine siemens 118.0 mg/L Malb Urine Siemen s ETHAN ([facility]) creatinine, urine 125.0 mg/dL Creatinine, Urine ETHAN ([facility]) ricky/creat ratio 94.4 mcg/mg 0.0-30.0 Above high normal Ricky/creat Ra tracy ETHAN ([facility]) ID Date Data Source [id number] 02/20/2020 09:08:00 AM EST ETHAN ([facility]) Name Value Range Interpretation Code Description Data Dee Dee rce(s) Supporting Document(s) creatinine, urine 125.0 mg/dL Creatinine, Urine ETHAN ([facility]) malb urine si[place] 118.0 mg/L Malb Urine Siemen s ETHAN ([facility]) ricky/creat ratio 94.4 mcg/mg 0.0-30.0 Above high normal Ricky/creat Ra tracy ETHAN ([facility]) ID Date Data Source [id number] 02/20/2020 09:08:00 AM EST ETHAN ([facility]) Name Value Range Interpretation Code Description Data Dee Dee rce(s) Supporting Document(s) creatinine, urine 125.0 mg/dL Creatinine, Urine ETHAN ([facility]) ricky/creat ratio 94.4 mcg/mg 0.0-30.0 Above high normal Ricky/creat Ra tracy ETHAN ([facility]) malb urine siem[place] 118.0 mg/L Malb Urine Siemen s ETHAN ([facility]) ID Date Data Source [id number] 02/20/2020 09:08:00 AM EST ETHAN ([facility]) Name Value Range Interpretation Code Description Data Dee Dee rce(s) Supporting Document(s) creatinine, urine 125.0 mg/dL Creatinine, Urine ETHAN ([facility]) malb urine siemens 118.0 mg/L Malb Urine Siemen s ETHAN ([facility]) ricky/creat ratio 94.4 mcg/mg 0.0-30.0 Above high normal Ricky/creat Ra tracy ETHAN ([facility]) ID Date Data Source [id number] 02/20/2020 09:08:00 AM EST ETHAN ([facility]) Name Value Range Interpretation Code Description Data Dee Dee rce(s) Supporting Document(s) malb urine siemens 118.0 mg/L Malb Urine Siemen s ETHAN ([facility]) creatinine, urine 125.0 mg/dL Creatinine, Urine ETHAN ([facility]) ricky/creat ratio 94.4 mcg/mg 0.0-30.0 Above high normal Ricky/creat Ra tracy ETHAN ([facility]) ID Date Data Source [id number] 02/20/2020 09:08:00 AM EST ETHAN ([facility]) Name Value Range Interpretation Code Description Data Dee Dee rce(s) Supporting Document(s) ricky/creat ratio 94.4 mcg/mg 0.0-30.0 Above high normal Ricky/creat Ra tracy ETHAN ([facility]) malb urine siem[place] 118.0 mg/L Malb Urine Siemen s ETHAN ([facility]) creatinine, urine 125.0 mg/dL Creatinine, Urine ETHAN ([facility]) ID Date Data Source [id number] 02/20/2020 09:08:00 AM EST ETHAN ([facility]) Name Value Range Interpretation Code Description Data Dee Dee rce(s) Supporting Document(s) creatinine, urine 125.0 mg/dL Creatinine, Urine ETHAN ([facility]) malb urine [place] 118.0 mg/L Malb Urine Siemen s ETHAN ([facility]) ricky/creat ratio 94.4 mcg/mg 0.0-30.0 Above high normal Ricky/creat Ra tracy ETHAN ([facility]) ID Date Data Source [id number] 02/20/2020 09:08:00 AM EST ETHAN ([facility]) Name Value Range Interpretation Code Description Data Dee Dee rce(s) Supporting Document(s) creatinine, urine 125.0 mg/dL Creatinine, Urine ETHAN ([facility]) malb urine [place] 118.0 mg/L Malb Urine Siemen s ETHAN ([facility]) ricky/creat ratio 94.4 mcg/mg 0.0-30.0 Above high normal Ricky/creat Ra tracy ETHAN ([facility]) ID Date Data Source [id number] 02/20/2020 09:08:00 AM EST ETHAN ([facility]) Name Value Range Interpretation Code Description Data Dee Dee rce(s) Supporting Document(s) creatinine, urine 125.0 mg/dL Creatinine, Urine ETHAN ([facility]) ricky/creat ratio 94.4 mcg/mg 0.0-30.0 Above high normal Ricky/creat Ra tracy ETHAN ([facility]) malb urine [place] 118.0 mg/L Malb Urine Siemen s ETHAN ([facility]) ID Date Data Source [id number] 02/20/2020 09:08:00 AM EST ETHAN ([facility]) Name Value Range Interpretation Code Description Data Dee Dee rce(s) Supporting Document(s) creatinine, urine 125.0 mg/dL Creatinine, Urine ETHAN ([facility]) malb urine [place] 118.0 mg/L Malb Urine Siemen s ETHAN ([facility]) ricky/creat ratio 94.4 mcg/mg 0.0-30.0 Above high normal Ricky/creat Ra tracy ETHAN ([facility]) ID Date Data Source [id number] 02/20/2020 09:08:00 AM EST ETHAN ([facility]) Name Value Range Interpretation Code Description Data Dee Dee rce(s) Supporting Document(s) malb urine siem[place] 118.0 mg/L Malb Urine Siemen s ETHAN ([facility]) creatinine, urine 125.0 mg/dL Creatinine, Urine ETHAN ([facility]) ricky/creat ratio 94.4 mcg/mg 0.0-30.0 Above high normal Ricky/creat Ra tracy ETHAN ([facility]) ID Date Data Source [id number] 02/20/2020 09:08:00 AM EST ETHAN ([facility]) Name Value Range Interpretation Code Description Data Dee Dee rce(s) Supporting Document(s) creatinine, urine 125.0 mg/dL Creatinine, Urine ETHAN ([facility]) malb urine [place] 118.0 mg/L Malb Urine Siemen s ETHAN ([facility]) ricky/creat ratio 94.4 mcg/mg 0.0-30.0 Above high normal Ricky/creat Ra tracy ETHAN ([facility]) ID Date Data Source [id number] 02/20/2020 09:08:00 AM EST ETHAN ([facility]) Name Value Range Interpretation Code Description Data Dee Dee rce(s) Supporting Document(s) malb urine [place] 118.0 mg/L Malb Urine Siemen s ETHAN ([facility]) creatinine, urine 125.0 mg/dL Creatinine, Urine ETHAN ([facility]) ricky/creat ratio 94.4 mcg/mg 0.0-30.0 Above high normal Ricky/creat Ra tracy ETHAN ([facility]) ID Date Data Source [id number] 02/20/2020 09:03:00 AM EST ETHAN ([facility]) Name Value Range Interpretation Code Description Data Dee Dee rce(s) Supporting Document(s) Hemoglobin A1c/Hemoglobin.total in Blood 10.5 % Hemoglobin a1C ETHAN ([facility]) estimated average glucose 255 mg/dL 60-110 Above high norm al Estimated Average Glucose ETHAN ([facility]) ID Date Data Source [id number] 02/20/2020 09:03:00 AM EST ETHAN ([facility]) Name Value Range Interpretation Code Description Data Dee Dee rce(s) Supporting Document(s) ferritin 23 NG/mL 8-252 Ferritin ETHAN ([facility]) ID Date Data Source [id number] 02/20/2020 09:03:00 AM EST ETHAN ([facility]) Name Value Range Interpretation Code Description Data Dee Dee rce(s) Supporting Document(s) total 25(oh) vitamin D 32.0 NG/mL 30.0-100.0 Total 25(Oh) Vitamin D ETHAN ([facility]) ID Date Data Source [id number] 02/20/2020 09:03:00 AM EST ETHAN ([facility]) Name Value Range Interpretation Code Description Data Dee Dee rce(s) Supporting Document(s) total iron binding capacity 289 ug/dL 250-450 Total Ir on Binding Capacity ETHAN ([facility]) iron (fe) 80 ug/dL 50-170 Iron (Fe) ETHAN ([facility]) percent saturation 27.7 % 13.2-45.0 Percent Saturatio n ETHAN ([facility]) ID Date Data Source [id number] 02/20/2020 09:03:00 AM EST ETHAN ([facility]) Name Value Range Interpretation Code Description Data Dee Dee rce(s) Supporting Document(s) triglycerides level 298 mg/dL <150 Above high normal Triglycer ides Level ETHAN ([facility]) HDL cholesterol 37 mg/dL >40 Below low normal HDL Cholestero l ETHAN ([facility]) cholesterol level 162 mg/dL <200 Cholesterol Level ETHAN ([facility]) Cholesterol in LDL [Mass/volume] in Serum or Plasma 65 mg/dL <1 00 LDL Cholesterol ETHAN ([facility]) non-HDL-C 125 mg/dL Non-hdl-c ETHAN ([facility]) cholesterol risk ratio <5 Cholesterol R isk Ratio ETHAN ([facility]) ID Date Data Source [id number] 02/20/2020 09:03:00 AM EST ETHAN ([facility]) Name Value Range Interpretation Code Description Data Dee Dee rce(s) Supporting Document(s) blood urea nitrogen 14 mg/dL 7-18 Blood Urea Nitro gen ETHAN ([facility]) glucose, fasting 236 mg/dL 70-100 Above high normal Glucose, Fas ting ETHAN ([facility]) sodium level 135 mEq/L 136-145 Below low normal Sodium Level ATHE ([facility]) creatinine for GFR 0.65 mg/dL 0.55-1.30 Creatinine for GF R ETHAN ([facility]) potassium serum 4.4 mEq/L 3.5-5.1 Potassium Serum ATHE NA ([facility]) glomerular filtration rate > 60.0 >58 Glomerula r Filtration Rate ETHAN ([facility]) calcium level 9.4 mg/dL 8.5-10.1 Calcium Level ETHAN ( [facility]) chloride level 102 mEq/L 98-107 Chloride Level ETHAN ([facility]) anion gap 6 mEq/L 8-16 Below low normal Anion Gap ETHAN ( [facility]) carbon dioxide level 27 mEq/L 21-32 Carbon Dioxide Level ETHAN ([facility]) AST/SGOT 10 U/L 7-37 AST/SGOT ETHAN ([facility]) bilirubin,total 0.3 mg/dL 0.2-1.0 Bilirubin,total ATHE NA ([facility]) ALT/SGPT 26 U/L 12-78 ALT/SGPT ETHAN ([facility]) alkaline phosphatase 92 U/L 45-117 Alkaline Phosph atase ETHAN ([facility]) total protein 6.5 gm/dL 6.4-8.2 Total Protein ETHAN ( [facility]) albumin 3.3 gm/dL 3.2-5.2 Albumin ETHAN ([facility]) albumin/globulin ratio 1.2-2.2 Below low normal Albumin /globulin Ratio ETHAN ([facility]) ID Date Data Source [id number] 02/20/2020 09:03:00 AM EST ETHAN ([facility]) Name Value Range Interpretation Code Description Data Dee Dee rce(s) Supporting Document(s) white blood count 5.7 10 4.0-10.0 White Blood Count ETHAN ([facility]) red blood count 4.47 10 4.00-5.40 Red Blood Count ATHE NA ([facility]) hematocrit 41.3 % 36.0-47.0 Hematocrit ETHAN ([facility]) hemoglobin 13.7 g/dL 12.0-15.5 Hemoglobin ETHAN ([facility]) mean corpuscular volume 92.4 fL 80.0-96.0 Mean Corpusc ular Volume ETHAN ([facility]) red cell distribution width 13.1 % 11.5-14.5 Red Cell Distribution Width ETHAN ([facility]) mean corpuscular HGB conc 33.2 g/dL 32.0-36.5 Mean Corpu scular HGB Conc ETHAN ([facility]) mean corpuscular hemoglobin 30.6 pg 27.0-33.0 Mean Cor puscular Hemoglobin ETHAN ([facility]) nucleated red blood cell % 0.0 % 0-0 Nucleated Red Blood Cell % ETHAN ([facility]) platelet count, automated 280 10 150-450 Platelet C ount, Automated ETHAN ([facility]) ID Date Data Source [id number] 02/20/2020 09:03:00 AM EST ETHAN ([facility]) Name Value Range Interpretation Code Description Data Dee Dee rce(s) Supporting Document(s) Hemoglobin A1c/Hemoglobin.total in Blood 10.5 % Hemoglobin a1C BACKUS ([facility]) estimated average glucose 255 mg/dL 60-110 Above high norm al Estimated Average Glucose BACKUS ([facility]) ID Date Data Source [id number] 02/20/2020 09:03:00 AM EST ETHAN ([facility]) Name Value Range Interpretation Code Description Data Dee Dee rce(s) Supporting Document(s) ferritin 23 NG/mL 8-252 Ferritin ETHAN ([facility]) ID Date Data Source [id number] 02/20/2020 09:03:00 AM EST ETHAN ([facility]) Name Value Range Interpretation Code Description Data Dee Dee rce(s) Supporting Document(s) total 25(oh) vitamin D 32.0 NG/mL 30.0-100.0 Total 25(Oh) Vitamin D [facility] [facility] ID Date Data Source [id number] 02/20/2020 09:03:00 AM EST ETHAN ([facility]) Name Value Range Interpretation Code Description Data Dee Dee rce(s) Supporting Document(s) iron (fe) 80 ug/dL 50-170 Iron (Fe) ETHAN ([facility]) total iron binding capacity 289 ug/dL 250-450 Total Ir on Binding Capacity ETHAN ([facility]) percent saturation 27.7 % 13.2-45.0 Percent Saturatio n BACKUS ([facility]) ID Date Data Source [id number] 02/20/2020 09:03:00 AM EST BACKUS ([facility]) Name Value Range Interpretation Code Description Data Dee Dee rce(s) Supporting Document(s) triglycerides level 298 mg/dL <150 Above high normal Triglycer ides Level ETHAN ([facility]) HDL cholesterol 37 mg/dL >40 Below low normal HDL Cholestero l ETHAN ([facility]) cholesterol level 162 mg/dL <200 Cholesterol Level ETHAN ([facility]) Cholesterol in LDL [Mass/volume] in Serum or Plasma 65 mg/dL <1 00 LDL Cholesterol ETHAN ([facility]) cholesterol risk ratio <5 Cholesterol R isk Ratio BACKUS ([facility]) non-HDL-C 125 mg/dL Non-hdl-c BACKUS ([facility]) ID Date Data Source [id number] 02/20/2020 09:03:00 AM EST BACKUS ([facility]) Name Value Range Interpretation Code Description Data Dee Dee rce(s) Supporting Document(s) glucose, fasting 236 mg/dL 70-100 Above high normal Glucose, Fas ting ETHAN ([facility]) creatinine for GFR 0.65 mg/dL 0.55-1.30 Creatinine for GF R ETHAN ([facility]) blood urea nitrogen 14 mg/dL 7-18 Blood Urea Nitro gen ETHAN ([facility]) potassium serum 4.4 mEq/L 3.5-5.1 Potassium Serum ATHE NA ([facility]) sodium level 135 mEq/L 136-145 Below low normal Sodium Level ATHE NA ([facility]) glomerular filtration rate > 60.0 >58 Glomerula r Filtration Rate ETHAN ([facility]) chloride level 102 mEq/L 98-107 Chloride Level ETHAN ([facility]) carbon dioxide level 27 mEq/L 21-32 Carbon Dioxide Level ETHAN ([facility]) anion gap 6 mEq/L 8-16 Below low normal Anion Gap ETHAN ( [facility]) calcium level 9.4 mg/dL 8.5-10.1 Calcium Level BACKUS ( [facility]) AST/SGOT 10 U/L 7-37 AST/SGOT ETHAN ([facility]) alkaline phosphatase 92 U/L 45-117 Alkaline Phosph atase ETHAN ([facility]) ALT/SGPT 26 U/L 12-78 ALT/SGPT ETHAN ([facility]) bilirubin,total 0.3 mg/dL 0.2-1.0 Bilirubin,total ATHE NA ([facility]) total protein 6.5 gm/dL 6.4-8.2 Total Protein ETHAN ( [facility]) albumin 3.3 gm/dL 3.2-5.2 Albumin ETHAN ([facility]) albumin/globulin ratio 1.2-2.2 Below low normal Albumin /globulin Ratio ETHAN ([facility]) ID Date Data Source [id number] 02/20/2020 09:03:00 AM EST ETHAN ([facility]) Name Value Range Interpretation Code Description Data Dee Dee rce(s) Supporting Document(s) white blood count 5.7 10 4.0-10.0 White Blood Count ETHAN ([facility]) hemoglobin 13.7 g/dL 12.0-15.5 Hemoglobin ETHAN ([facility]) red blood count 4.47 10 4.00-5.40 Red Blood Count ATHE NA ([facility]) mean corpuscular volume 92.4 fL 80.0-96.0 Mean Corpusc ular Volume ETHAN ([facility]) mean corpuscular hemoglobin 30.6 pg 27.0-33.0 Mean Cor puscular Hemoglobin ETHAN ([facility]) hematocrit 41.3 % 36.0-47.0 Hematocrit ETHAN ([facility]) mean corpuscular HGB conc 33.2 g/dL 32.0-36.5 Mean Corpu scular HGB Conc ETHAN ([facility]) red cell distribution width 13.1 % 11.5-14.5 Red Cell Distribution Width ETHAN ([facility]) platelet count, automated 280 10 150-450 Platelet C ount, Automated ETHAN ([facility]) nucleated red blood cell % 0.0 % 0-0 Nucleated Red Blood Cell % ETHAN ([facility]) ID Date Data Source [id number] 02/20/2020 09:03:00 AM EST ETHAN ([facility]) Name Value Range Interpretation Code Description Data Dee Dee rce(s) Supporting Document(s) Hemoglobin A1c/Hemoglobin.total in Blood 10.5 % Hemoglobin a1C ETHAN ([facility]) estimated average glucose 255 mg/dL 60-110 Above high norm al Estimated Average Glucose ETHAN ([facility]) ID Date Data Source [id number] 02/20/2020 09:03:00 AM EST ETHAN ([facility]) Name Value Range Interpretation Code Description Data Dee Dee rce(s) Supporting Document(s) ferritin 23 NG/mL 8-252 Ferritin ETHAN ([facility]) ID Date Data Source [id number] 02/20/2020 09:03:00 AM EST ETHAN ([facility]) Name Value Range Interpretation Code Description Data Dee Dee rce(s) Supporting Document(s) total 25(oh) vitamin D 32.0 NG/mL 30.0-100.0 Total 25(Oh) Vitamin D BACKUS ([facility]) ID Date Data Source [id number] 02/20/2020 09:03:00 AM EST ETHAN ([facility]) Name Value Range Interpretation Code Description Data Dee Dee rce(s) Supporting Document(s) iron (fe) 80 ug/dL 50-170 Iron (Fe) ETHAN ([facility]) percent saturation 27.7 % 13.2-45.0 Percent Saturatio n ETHAN ([facility]) total iron binding capacity 289 ug/dL 250-450 Total Ir on Binding Capacity ETHAN ([facility]) ID Date Data Source [id number] 02/20/2020 09:03:00 AM EST ETHAN ([facility]) Name Value Range Interpretation Code Description Data Dee Dee rce(s) Supporting Document(s) cholesterol level 162 mg/dL <200 Cholesterol Level ETHAN ([facility]) triglycerides level 298 mg/dL <150 Above high normal Triglycer ides Level ETHAN ([facility]) HDL cholesterol 37 mg/dL >40 Below low normal HDL Cholestero l ETHAN ([facility]) non-HDL-C 125 mg/dL Non-hdl-c ETHAN ([facility]) cholesterol risk ratio <5 Cholesterol R isk Ratio ETHAN ([facility]) Cholesterol in LDL [Mass/volume] in Serum or Plasma 65 mg/dL <1 00 LDL Cholesterol ETHAN ([facility]) ID Date Data Source [id number] 02/20/2020 09:03:00 AM EST ETHAN ([facility]) Name Value Range Interpretation Code Description Data Dee Dee rce(s) Supporting Document(s) glucose, fasting 236 mg/dL 70-100 Above high normal Glucose, Fas ting ETHAN ([facility]) glomerular filtration rate > 60.0 >58 Glomerula r Filtration Rate ETHAN ([facility]) blood urea nitrogen 14 mg/dL 7-18 Blood Urea Nitro gen ETHAN ([facility]) creatinine for GFR 0.65 mg/dL 0.55-1.30 Creatinine for GF R ETHAN ([facility]) sodium level 135 mEq/L 136-145 Below low normal Sodium Level ATHE NA ([facility]) chloride level 102 mEq/L 98-107 Chloride Level ETHAN ([facility]) potassium serum 4.4 mEq/L 3.5-5.1 Potassium Serum ATHE NA ([facility]) anion gap 6 mEq/L 8-16 Below low normal Anion Gap ETHAN ( [facility]) carbon dioxide level 27 mEq/L 21-32 Carbon Dioxide Level ETHAN ([facility]) AST/SGOT 10 U/L 7-37 AST/SGOT ETHAN ([facility]) calcium level 9.4 mg/dL 8.5-10.1 Calcium Level ETHAN ( [facility]) ALT/SGPT 26 U/L 12-78 ALT/SGPT ETHAN ([facility]) alkaline phosphatase 92 U/L 45-117 Alkaline Phosph atase ETHAN ([facility]) total protein 6.5 gm/dL 6.4-8.2 Total Protein ETHAN ( [facility]) albumin 3.3 gm/dL 3.2-5.2 Albumin ETHAN ([facility]) bilirubin,total 0.3 mg/dL 0.2-1.0 Bilirubin,total ATHE NA ([facility]) albumin/globulin ratio 1.2-2.2 Below low normal Albumin /globulin Ratio ETHAN ([facility]) ID Date Data Source [id number] 02/20/2020 09:03:00 AM EST ETHAN ([facility]) Name Value Range Interpretation Code Description Data Dee Dee rce(s) Supporting Document(s) white blood count 5.7 10 4.0-10.0 White Blood Count ETHAN ([facility]) hemoglobin 13.7 g/dL 12.0-15.5 Hemoglobin ETHAN ([facility]) red blood count 4.47 10 4.00-5.40 Red Blood Count ATHE ([facility]) hematocrit 41.3 % 36.0-47.0 Hematocrit ETHAN ([facility]) mean corpuscular hemoglobin 30.6 pg 27.0-33.0 Mean Cor puscular Hemoglobin ETHAN ([facility]) mean corpuscular volume 92.4 fL 80.0-96.0 Mean Corpusc ular Volume ETHAN ([facility]) red cell distribution width 13.1 % 11.5-14.5 Red Cell Distribution Width ETHAN ([facility]) platelet count, automated 280 10 150-450 Platelet C ount, Automated ETHAN ([facility]) mean corpuscular HGB conc 33.2 g/dL 32.0-36.5 Mean Corpu scular HGB Conc ETHAN ([facility]) nucleated red blood cell % 0.0 % 0-0 Nucleated Red Blood Cell % ETHAN ([facility]) ID Date Data Source [id number] 02/20/2020 09:03:00 AM EST ETHAN ([facility]) Name Value Range Interpretation Code Description Data Dee Dee rce(s) Supporting Document(s) Hemoglobin A1c/Hemoglobin.total in Blood 10.5 % Hemoglobin a1C ETHAN ([facility]) estimated average glucose 255 mg/dL 60-110 Above high norm al Estimated Average Glucose ETHAN ([facility]) ID Date Data Source [id number] 02/20/2020 09:03:00 AM EST ETHAN ([facility]) Name Value Range Interpretation Code Description Data Dee Dee rce(s) Supporting Document(s) ferritin 23 NG/mL 8-252 Ferritin ETHAN ([facility]) ID Date Data Source [id number] 02/20/2020 09:03:00 AM EST ETHAN ([facility]) Name Value Range Interpretation Code Description Data Dee Dee rce(s) Supporting Document(s) total 25(oh) vitamin D 32.0 NG/mL 30.0-100.0 Total 25(Oh) Vitamin D BACKUS ([facility]) ID Date Data Source [id number] 02/20/2020 09:03:00 AM EST ETHAN ([facility]) Name Value Range Interpretation Code Description Data Dee Dee rce(s) Supporting Document(s) total iron binding capacity 289 ug/dL 250-450 Total Ir on Binding Capacity ETHAN ([facility]) iron (fe) 80 ug/dL 50-170 Iron (Fe) ETHAN ([facility]) percent saturation 27.7 % 13.2-45.0 Percent Saturatio n ETHAN ([facility]) ID Date Data Source [id number] 02/20/2020 09:03:00 AM EST ETHAN ([facility]) Name Value Range Interpretation Code Description Data Dee Dee rce(s) Supporting Document(s) cholesterol level 162 mg/dL <200 Cholesterol Level ETHAN ([facility]) HDL cholesterol 37 mg/dL >40 Below low normal HDL Cholestero l ETHAN ([facility]) triglycerides level 298 mg/dL <150 Above high normal Triglycer ides Level ETHAN ([facility]) cholesterol risk ratio <5 Cholesterol R isk Ratio ETHAN ([facility]) Cholesterol in LDL [Mass/volume] in Serum or Plasma 65 mg/dL <1 00 LDL Cholesterol ETHAN ([facility]) non-HDL-C 125 mg/dL Non-hdl-c ETHAN ([facility]) ID Date Data Source [id number] 02/20/2020 09:03:00 AM EST ETHAN ([facility]) Name Value Range Interpretation Code Description Data Dee Dee rce(s) Supporting Document(s) blood urea nitrogen 14 mg/dL 7-18 Blood Urea Nitro gen ETHAN ([facility]) glucose, fasting 236 mg/dL 70-100 Above high normal Glucose, Fas ting ETHAN ([facility]) glomerular filtration rate > 60.0 >58 Glomerula r Filtration Rate ETHAN ([facility]) creatinine for GFR 0.65 mg/dL 0.55-1.30 Creatinine for GF R ETHAN ([facility]) sodium level 135 mEq/L 136-145 Below low normal Sodium Level ATHE NA ([facility]) carbon dioxide level 27 mEq/L 21-32 Carbon Dioxide Level ETHAN ([facility]) potassium serum 4.4 mEq/L 3.5-5.1 Potassium Serum ATHE NA ([facility]) chloride level 102 mEq/L 98-107 Chloride Level ETHAN ([facility]) ALT/SGPT 26 U/L 12-78 ALT/SGPT [facility] ([facility]) anion gap 6 mEq/L 8-16 Below low normal Anion Gap ETHAN ( [facility]) calcium level 9.4 mg/dL 8.5-10.1 Calcium Level ETHAN ( [facility]) AST/SGOT 10 U/L 7-37 AST/SGOT ETHAN ([facility]) alkaline phosphatase 92 U/L 45-117 Alkaline Phosph atase ETHAN ([facility]) bilirubin,total 0.3 mg/dL 0.2-1.0 Bilirubin,total ATHE NA ([facility]) total protein 6.5 gm/dL 6.4-8.2 Total Protein ETHAN ( [facility]) albumin 3.3 gm/dL 3.2-5.2 Albumin ETHAN ([facility]) albumin/globulin ratio 1.2-2.2 Below low normal Albumin /globulin Ratio ETHAN ([facility]) ID Date Data Source [id number] 02/20/2020 09:03:00 AM EST ETHAN ([facility]) Name Value Range Interpretation Code Description Data Dee Dee rce(s) Supporting Document(s) hemoglobin 13.7 g/dL 12.0-15.5 Hemoglobin ETHAN ([facility]) white blood count 5.7 10 4.0-10.0 White Blood Count ETHAN ([facility]) red blood count 4.47 10 4.00-5.40 Red Blood Count ATHE NA ([facility]) hematocrit 41.3 % 36.0-47.0 Hematocrit TEHAN ([facility]) mean corpuscular hemoglobin 30.6 pg 27.0-33.0 Mean Cor puscular Hemoglobin ETHAN ([facility]) mean corpuscular volume 92.4 fL 80.0-96.0 Mean Corpusc ular Volume ETHAN ([facility]) red cell distribution width 13.1 % 11.5-14.5 Red Cell Distribution Width ETHAN ([facility]) mean corpuscular HGB conc 33.2 g/dL 32.0-36.5 Mean Corpu scular HGB Conc ETHAN ([facility]) platelet count, automated 280 10 150-450 Platelet C ount, Automated ETHAN ([facility]) nucleated red blood cell % 0.0 % 0-0 Nucleated Red Blood Cell % ETHAN ([facility]) ID Date Data Source [id number] 02/20/2020 09:03:00 AM EST ETHAN ([facility]) Name Value Range Interpretation Code Description Data Dee Dee rce(s) Supporting Document(s) estimated average glucose 255 mg/dL 60-110 Above high norm al Estimated Average Glucose ETHAN ([facility]) Hemoglobin A1c/Hemoglobin.total in Blood 10.5 % Hemoglobin a1C ETHAN ([facility]) ID Date Data Source [id number] 02/20/2020 09:03:00 AM EST ETHAN ([facility]) Name Value Range Interpretation Code Description Data Dee Dee rce(s) Supporting Document(s) ferritin 23 NG/mL 8-252 Ferritin ETHAN ([facility]) ID Date Data Source [id number] 02/20/2020 09:03:00 AM EST ETHAN ([facility]) Name Value Range Interpretation Code Description Data Dee Dee rce(s) Supporting Document(s) total 25(oh) vitamin D 32.0 NG/mL 30.0-100.0 Total 25(Oh) Vitamin D ETHAN ([facility]) ID Date Data Source [id number] 02/20/2020 09:03:00 AM EST ETHAN ([facility]) Name Value Range Interpretation Code Description Data Dee Dee rce(s) Supporting Document(s) iron (fe) 80 ug/dL 50-170 Iron (Fe) ETHAN ([facility]) total iron binding capacity 289 ug/dL 250-450 Total Ir on Binding Capacity ETHAN ([facility]) percent saturation 27.7 % 13.2-45.0 Percent Saturatio n ETHAN ([facility]) ID Date Data Source [id number] 02/20/2020 09:03:00 AM EST ETHAN ([facility]) Name Value Range Interpretation Code Description Data Dee Dee rce(s) Supporting Document(s) cholesterol level 162 mg/dL <200 Cholesterol Level ETHAN ([facility]) triglycerides level 298 mg/dL <150 Above high normal Triglycer ides Level ETHAN ([facility]) HDL cholesterol 37 mg/dL >40 Below low normal HDL Cholestero l ETHAN ([facility]) non-HDL-C 125 mg/dL Non-hdl-c ETHAN ([facility]) Cholesterol in LDL [Mass/volume] in Serum or Plasma 65 mg/dL <1 00 LDL Cholesterol ETHAN ([facility]) cholesterol risk ratio <5 Cholesterol R isk Ratio ETHAN ([facility]) ID Date Data Source [id number] 02/20/2020 09:03:00 AM EST ETHAN ([facility]) Name Value Range Interpretation Code Description Data Dee Dee rce(s) Supporting Document(s) glucose, fasting 236 mg/dL 70-100 Above high normal Glucose, Fas ting ETHAN ([facility]) blood urea nitrogen 14 mg/dL 7-18 Blood Urea Nitro gen ETHAN ([facility]) creatinine for GFR 0.65 mg/dL 0.55-1.30 Creatinine for GF R ETHAN ([facility]) glomerular filtration rate > 60.0 >58 Glomerula r Filtration Rate ETHAN ([facility]) potassium serum 4.4 mEq/L 3.5-5.1 Potassium Serum ATHE NA ([facility]) sodium level 135 mEq/L 136-145 Below low normal Sodium Level ATHE NA ([facility]) anion gap 6 mEq/L 8-16 Below low normal Anion Gap ETHAN ( [facility]) chloride level 102 mEq/L 98-107 Chloride Level ETHAN ([facility]) carbon dioxide level 27 mEq/L 21-32 Carbon Dioxide Level ETHAN ([facility]) ALT/SGPT 26 U/L 12-78 ALT/SGPT [facility] ([facility]) AST/SGOT 10 U/L 7-37 AST/SGOT ETHAN ([facility]) calcium level 9.4 mg/dL 8.5-10.1 Calcium Level ETHAN ( [facility]) total protein 6.5 gm/dL 6.4-8.2 Total Protein ETHAN ( [facility]) bilirubin,total 0.3 mg/dL 0.2-1.0 Bilirubin,total ATHE NA ([facility]) alkaline phosphatase 92 U/L 45-117 Alkaline Phosph atase ETHAN ([facility]) albumin 3.3 gm/dL 3.2-5.2 Albumin ETHAN ([facility]) albumin/globulin ratio 1.2-2.2 Below low normal Albumin /globulin Ratio ETHAN ([facility]) ID Date Data Source [id number] 02/20/2020 09:03:00 AM EST ETHAN ([facility]) Name Value Range Interpretation Code Description Data Dee Dee rce(s) Supporting Document(s) white blood count 5.7 10 4.0-10.0 White Blood Count ETHAN ([facility]) red blood count 4.47 10 4.00-5.40 Red Blood Count ATHE NA ([facility]) hemoglobin 13.7 g/dL 12.0-15.5 Hemoglobin ETHAN ([facility]) mean corpuscular hemoglobin 30.6 pg 27.0-33.0 Mean Cor puscular Hemoglobin ETHAN ([facility]) mean corpuscular volume 92.4 fL 80.0-96.0 Mean Corpusc ular Volume ETHAN ([facility]) hematocrit 41.3 % 36.0-47.0 Hematocrit ETHAN ([facility]) mean corpuscular HGB conc 33.2 g/dL 32.0-36.5 Mean Corpu scular HGB Conc ETHAN ([facility]) red cell distribution width 13.1 % 11.5-14.5 Red Cell Distribution Width ETHAN ([facility]) platelet count, automated 280 10 150-450 Platelet C ount, Automated ETHAN ([facility]) nucleated red blood cell % 0.0 % 0-0 Nucleated Red Blood Cell % ETHAN ([facility]) ID Date Data Source [id number] 02/20/2020 09:03:00 AM EST ETHAN ([facility]) Name Value Range Interpretation Code Description Data Dee Dee rce(s) Supporting Document(s) Hemoglobin A1c/Hemoglobin.total in Blood 10.5 % Hemoglobin a1C ETHAN ([facility]) estimated average glucose 255 mg/dL 60-110 Above high norm al Estimated Average Glucose ETHAN ([facility]) ID Date Data Source [id number] 02/20/2020 09:03:00 AM EST ETHAN ([facility]) Name Value Range Interpretation Code Description Data Dee Dee rce(s) Supporting Document(s) ferritin 23 NG/mL 8-252 Ferritin ETHAN ([facility]) ID Date Data Source [id number] 02/20/2020 09:03:00 AM EST ETHAN ([facility]) Name Value Range Interpretation Code Description Data Dee Dee rce(s) Supporting Document(s) total 25(oh) vitamin D 32.0 NG/mL 30.0-100.0 Total 25(Oh) Vitamin D ETHAN ([facility]) ID Date Data Source [id number] 02/20/2020 09:03:00 AM EST ETHAN ([facility]) Name Value Range Interpretation Code Description Data Dee Dee rce(s) Supporting Document(s) percent saturation 27.7 % 13.2-45.0 Percent Saturatio n ETHAN ([facility]) iron (fe) 80 ug/dL 50-170 Iron (Fe) ETHAN ([facility]) total iron binding capacity 289 ug/dL 250-450 Total Ir on Binding Capacity ETHAN ([facility]) ID Date Data Source [id number] 02/20/2020 09:03:00 AM EST ETHAN ([facility]) Name Value Range Interpretation Code Description Data Dee Dee rce(s) Supporting Document(s) triglycerides level 298 mg/dL <150 Above high normal Triglycer ides Level ETHAN ([facility]) HDL cholesterol 37 mg/dL >40 Below low normal HDL Cholestero l ETHAN ([facility]) cholesterol level 162 mg/dL <200 Cholesterol Level ETHAN ([facility]) Cholesterol in LDL [Mass/volume] in Serum or Plasma 65 mg/dL <1 00 LDL Cholesterol ETHAN ([facility]) non-HDL-C 125 mg/dL Non-hdl-c ETHAN ([facility]) cholesterol risk ratio <5 Cholesterol R isk Ratio ETHAN ([facility]) ID Date Data Source [id number] 02/20/2020 09:03:00 AM EST ETHAN ([facility]) Name Value Range Interpretation Code Description Data Dee Dee rce(s) Supporting Document(s) glucose, fasting 236 mg/dL 70-100 Above high normal Glucose, Fas ting ETHAN ([facility]) blood urea nitrogen 14 mg/dL 7-18 Blood Urea Nitro gen ETHAN ([facility]) sodium level 135 mEq/L 136-145 Below low normal Sodium Level ATHE NA ([facility]) creatinine for GFR 0.65 mg/dL 0.55-1.30 Creatinine for GF R ETHNA ([facility]) glomerular filtration rate > 60.0 >58 Glomerula r Filtration Rate ETHAN ([facility]) potassium serum 4.4 mEq/L 3.5-5.1 Potassium Serum ATHE NA ([facility]) anion gap 6 mEq/L 8-16 Below low normal Anion Gap ETHAN ( [facility]) carbon dioxide level 27 mEq/L 21-32 Carbon Dioxide Level ETHAN ([facility]) chloride level 102 mEq/L 98-107 Chloride Level ETHAN ([facility]) calcium level 9.4 mg/dL 8.5-10.1 Calcium Level ETHAN ( [facility]) alkaline phosphatase 92 U/L 45-117 Alkaline Phosph atase ETHAN ([facility]) ALT/SGPT 26 U/L 12-78 ALT/SGPT [facility] ([facility]) AST/SGOT 10 U/L 7-37 AST/SGOT ETH[facility] ([facility]) bilirubin,total 0.3 mg/dL 0.2-1.0 Bilirubin,total ATHE NA ([facility]) total protein 6.5 gm/dL 6.4-8.2 Total Protein ETHAN ( [facility]) albumin 3.3 gm/dL 3.2-5.2 Albumin ETHAN ([facility]) albumin/globulin ratio 1.2-2.2 Below low normal Albumin /globulin Ratio ETHAN ([facility]) ID Date Data Source [id number] 02/20/2020 09:03:00 AM EST ETHAN ([facility]) Name Value Range Interpretation Code Description Data Dee Dee rce(s) Supporting Document(s) white blood count 5.7 10 4.0-10.0 White Blood Count ETHAN ([facility]) hemoglobin 13.7 g/dL 12.0-15.5 Hemoglobin ETHAN ([facility]) red blood count 4.47 10 4.00-5.40 Red Blood Count [facility] [facility] hematocrit 41.3 % 36.0-47.0 Hematocrit ETHAN ([facility]) mean corpuscular hemoglobin 30.6 pg 27.0-33.0 Mean Cor puscular Hemoglobin ETHAN ([facility]) mean corpuscular volume 92.4 fL 80.0-96.0 Mean Corpusc ular Volume ETHAN ([facility]) platelet count, automated 280 10 150-450 Platelet C ount, Automated ETHAN ([facility]) red cell distribution width 13.1 % 11.5-14.5 Red Cell Distribution Width TEHAN ([facility]) mean corpuscular HGB conc 33.2 g/dL 32.0-36.5 Mean Corpu scular HGB Conc ETHAN ([facility]) nucleated red blood cell % 0.0 % 0-0 Nucleated Red Blood Cell % ETHAN ([facility]) ID Date Data Source [id number] 02/20/2020 09:03:00 AM EST ETHAN ([facility]) Name Value Range Interpretation Code Description Data Dee Dee rce(s) Supporting Document(s) triglycerides level 298 mg/dL <150 Above high normal Triglycer ides Level ETHAN ([facility]) Cholesterol in LDL [Mass/volume] in Serum or Plasma 65 mg/dL <1 00 LDL Cholesterol ETHAN ([facility]) HDL cholesterol 37 mg/dL >40 Below low normal HDL Cholestero l ETHAN ([facility]) cholesterol level 162 mg/dL <200 Cholesterol Level ETHAN ([facility]) cholesterol risk ratio <5 Cholesterol R isk Ratio ETHAN ([facility]) non-HDL-C 125 mg/dL Non-hdl-c ETHAN ([facility]) ID Date Data Source [id number] 02/20/2020 09:03:00 AM EST ETHAN ([facility]) Name Value Range Interpretation Code Description Data Dee Dee rce(s) Supporting Document(s) blood urea nitrogen 14 mg/dL 7-18 Blood Urea Nitro gen ETHAN ([facility]) glucose, fasting 236 mg/dL 70-100 Above high normal Glucose, Fas ting ETHAN ([facility]) creatinine for GFR 0.65 mg/dL 0.55-1.30 Creatinine for GF R ETHAN ([facility]) glomerular filtration rate > 60.0 >58 Glomerula r Filtration Rate ETHAN ([facility]) potassium serum 4.4 mEq/L 3.5-5.1 Potassium Serum ATH NA ([facility]) sodium level 135 mEq/L 136-145 Below low normal Sodium Level ATHE NA ([facility]) chloride level 102 mEq/L 98-107 Chloride Level ETHAN ([facility]) carbon dioxide level 27 mEq/L 21-32 Carbon Dioxide Level ETHAN ([facility]) anion gap 6 mEq/L 8-16 Below low normal Anion Gap ETHAN ( [facility]) calcium level 9.4 mg/dL 8.5-10.1 Calcium Level ETHAN ( [facility]) AST/SGOT 10 U/L 7-37 AST/SGOT [facility]AN ([facility]) ALT/SGPT 26 U/L 12-78 ALT/SGPT ETHAN ([facility]) bilirubin,total 0.3 mg/dL 0.2-1.0 Bilirubin,total ATHE NA ([facility]) alkaline phosphatase 92 U/L 45-117 Alkaline Phosph atase ETHAN ([facility]) total protein 6.5 gm/dL 6.4-8.2 Total Protein ETHAN ( [facility]) albumin/globulin ratio 1.2-2.2 Below low normal Albumin /globulin Ratio ETHAN ([facility]) albumin 3.3 gm/dL 3.2-5.2 Albumin ETHAN ([facility]) ID Date Data Source [id number] 02/20/2020 09:03:00 AM EST ETHAN ([facility]) Name Value Range Interpretation Code Description Data Dee Dee rce(s) Supporting Document(s) white blood count 5.7 10 4.0-10.0 White Blood Count ETHAN ([facility]) red blood count 4.47 10 4.00-5.40 Red Blood Count ATHE NA ([facility]) hemoglobin 13.7 g/dL 12.0-15.5 Hemoglobin ETHAN ([facility]) mean corpuscular hemoglobin 30.6 pg 27.0-33.0 Mean Cor puscular Hemoglobin ETHAN ([facility]) hematocrit 41.3 % 36.0-47.0 Hematocrit ETHAN ([facility]) mean corpuscular volume 92.4 fL 80.0-96.0 Mean Corpusc ular Volume ETHAN ([facility]) mean corpuscular HGB conc 33.2 g/dL 32.0-36.5 Mean Corpu scular HGB Conc ETHAN ([facility]) platelet count, automated 280 10 150-450 Platelet C ount, Automated ETHAN ([facility]) red cell distribution width 13.1 % 11.5-14.5 Red Cell Distribution Width ETHAN ([facility]) nucleated red blood cell % 0.0 % 0-0 Nucleated Red Blood Cell % ETHAN ([facility]) ID Date Data Source [id number] 02/20/2020 09:03:00 AM EST ETHAN ([facility]) Name Value Range Interpretation Code Description Data Dee Dee rce(s) Supporting Document(s) estimated average glucose 255 mg/dL 60-110 Above high norm al Estimated Average Glucose ETHAN ([facility]) Hemoglobin A1c/Hemoglobin.total in Blood 10.5 % Hemoglobin a1C ETHAN ([facility]) ID Date Data Source [id number] 02/20/2020 09:03:00 AM EST ETHAN ([facility]) Name Value Range Interpretation Code Description Data Dee Dee rce(s) Supporting Document(s) ferritin 23 NG/mL 8-252 Ferritin ETHAN ([facility]) ID Date Data Source [id number] 02/20/2020 09:03:00 AM EST ETHAN ([facility]) Name Value Range Interpretation Code Description Data Dee Dee rce(s) Supporting Document(s) total 25(oh) vitamin D 32.0 NG/mL 30.0-100.0 Total 25(Oh) Vitamin D ETHAN ([facility]) ID Date Data Source [id number] 02/20/2020 09:03:00 AM EST ETHAN ([facility]) Name Value Range Interpretation Code Description Data Dee Dee rce(s) Supporting Document(s) iron (fe) 80 ug/dL 50-170 Iron (Fe) ETHAN ([facility]) total iron binding capacity 289 ug/dL 250-450 Total Ir on Binding Capacity ETHAN ([facility]) percent saturation 27.7 % 13.2-45.0 Percent Saturatio n ETHAN ([facility]) ID Date Data Source [id number] 02/20/2020 09:03:00 AM EST ETHAN ([facility]) Name Value Range Interpretation Code Description Data Dee Dee rce(s) Supporting Document(s) triglycerides level 298 mg/dL <150 Above high normal Triglycer ides Level ETHAN ([facility]) cholesterol level 162 mg/dL <200 Cholesterol Level ETHAN ([facility]) non-HDL-C 125 mg/dL Non-hdl-c ETHAN ([facility]) HDL cholesterol 37 mg/dL >40 Below low normal HDL Cholestero l ETHAN ([facility]) Cholesterol in LDL [Mass/volume] in Serum or Plasma 65 mg/dL <1 00 LDL Cholesterol ETHAN ([facility]) cholesterol risk ratio <5 Cholesterol R isk Ratio ETHAN ([facility]) ID Date Data Source [id number] 02/20/2020 09:03:00 AM EST ETHAN ([facility]) Name Value Range Interpretation Code Description Data Dee Dee rce(s) Supporting Document(s) creatinine for GFR 0.65 mg/dL 0.55-1.30 Creatinine for GF R ETHAN ([facility]) blood urea nitrogen 14 mg/dL 7-18 Blood Urea Nitro gen ETHAN ([facility]) glucose, fasting 236 mg/dL 70-100 Above high normal Glucose, Fas ting ETHAN ([facility]) chloride level 102 mEq/L 98-107 Chloride Level ETHAN ([facility]) potassium serum 4.4 mEq/L 3.5-5.1 Potassium Serum ATHE NA ([facility]) sodium level 135 mEq/L 136-145 Below low normal Sodium Level ATHE NA ([facility]) glomerular filtration rate > 60.0 >58 Glomerula r Filtration Rate ETHAN ([facility]) calcium level 9.4 mg/dL 8.5-10.1 Calcium Level ETHAN ( [facility]) AST/SGOT 10 U/L 7-37 AST/SGOT [facility]AN ([facility]) anion gap 6 mEq/L 8-16 Below low normal Anion Gap ETHAN ( [facility]) carbon dioxide level 27 mEq/L 21-32 Carbon Dioxide Level ETHAN ([facility]) total protein 6.5 gm/dL 6.4-8.2 Total Protein ETHAN ( [facility]) bilirubin,total 0.3 mg/dL 0.2-1.0 Bilirubin,total ATHE NA ([facility]) alkaline phosphatase 92 U/L 45-117 Alkaline Phosph atase ETHAN ([facility]) ALT/SGPT 26 U/L 12-78 ALT/SGPT ETHAN ([facility]) albumin 3.3 gm/dL 3.2-5.2 Albumin ETHAN ([facility]) albumin/globulin ratio 1.2-2.2 Below low normal Albumin /globulin Ratio ETHAN ([facility]) ID Date Data Source [id number] 02/20/2020 09:03:00 AM EST ETHAN ([facility]) Name Value Range Interpretation Code Description Data Dee Dee rce(s) Supporting Document(s) white blood count 5.7 10 4.0-10.0 White Blood Count ETHAN ([facility]) red blood count 4.47 10 4.00-5.40 Red Blood Count ATHE NA ([facility]) hematocrit 41.3 % 36.0-47.0 Hematocrit ETHAN ([facility]) mean corpuscular volume 92.4 fL 80.0-96.0 Mean Corpusc ular Volume ETHAN ([facility]) hemoglobin 13.7 g/dL 12.0-15.5 Hemoglobin ETHAN ([facility]) mean corpuscular hemoglobin 30.6 pg 27.0-33.0 Mean Cor puscular Hemoglobin ETHAN ([facility]) mean corpuscular HGB conc 33.2 g/dL 32.0-36.5 Mean Corpu scular HGB Conc ETHAN ([facility]) platelet count, automated 280 10 150-450 Platelet C ount, Automated ETHAN ([facility]) nucleated red blood cell % 0.0 % 0-0 Nucleated Red Blood Cell % ETHAN ([facility]) red cell distribution width 13.1 % 11.5-14.5 Red Cell Distribution Width ETHAN ([facility]) ID Date Data Source [id number] 02/20/2020 09:03:00 AM EST ETHAN ([facility]) Name Value Range Interpretation Code Description Data Dee Dee rce(s) Supporting Document(s) estimated average glucose 255 mg/dL 60-110 Above high norm al Estimated Average Glucose ETHAN ([facility]) Hemoglobin A1c/Hemoglobin.total in Blood 10.5 % Hemoglobin a1C ETHAN ([facility]) ID Date Data Source [id number] 02/20/2020 09:03:00 AM EST ETHAN ([facility]) Name Value Range Interpretation Code Description Data Dee Dee rce(s) Supporting Document(s) ferritin 23 NG/mL 8-252 Ferritin ETHAN ([facility]) ID Date Data Source [id number] 02/20/2020 09:03:00 AM EST ETHAN ([facility]) Name Value Range Interpretation Code Description Data Dee Dee rce(s) Supporting Document(s) total 25(oh) vitamin D 32.0 NG/mL 30.0-100.0 Total 25(Oh) Vitamin D ETHAN ([facility]) ID Date Data Source [id number] 02/20/2020 09:03:00 AM EST ETHAN ([facility]) Name Value Range Interpretation Code Description Data Dee Dee rce(s) Supporting Document(s) percent saturation 27.7 % 13.2-45.0 Percent Saturatio n ETHAN ([facility]) iron (fe) 80 ug/dL 50-170 Iron (Fe) ETHAN ([facility]) total iron binding capacity 289 ug/dL 250-450 Total Ir on Binding Capacity ETHAN ([facility]) ID Date Data Source [id number] 02/20/2020 09:03:00 AM EST ETHAN ([facility]) Name Value Range Interpretation Code Description Data Dee Dee rce(s) Supporting Document(s) cholesterol level 162 mg/dL <200 Cholesterol Level ETHAN ([facility]) triglycerides level 298 mg/dL <150 Above high normal Triglycer ides Level ETHAN ([facility]) cholesterol risk ratio <5 Cholesterol R isk Ratio ETHAN ([facility]) non-HDL-C 125 mg/dL Non-hdl-c ETHAN ([facility]) Cholesterol in LDL [Mass/volume] in Serum or Plasma 65 mg/dL <1 00 LDL Cholesterol ETHAN ([facility]) HDL cholesterol 37 mg/dL >40 Below low normal HDL Cholestero l BACKUS ([facility]) ID Date Data Source [id number] 02/20/2020 09:03:00 AM EST BACKUS ([facility]) Name Value Range Interpretation Code Description Data Dee Dee rce(s) Supporting Document(s) glucose, fasting 236 mg/dL 70-100 Above high normal Glucose, Fas ting ETHAN ([facility]) glomerular filtration rate > 60.0 >58 Glomerula r Filtration Rate BACKUS ([facility]) creatinine for GFR 0.65 mg/dL 0.55-1.30 Creatinine for GF R ETHAN ([facility]) blood urea nitrogen 14 mg/dL 7-18 Blood Urea Nitro gen ETHAN ([facility]) sodium level 135 mEq/L 136-145 Below low normal Sodium Level ATHE ([facility]) chloride level 102 mEq/L 98-107 Chloride Level BACKUS ([facility]) potassium serum 4.4 mEq/L 3.5-5.1 Potassium Serum ATHE ([facility]) carbon dioxide level 27 mEq/L 21-32 Carbon Dioxide Level ETHAN ([facility]) anion gap 6 mEq/L 8-16 Below low normal Anion Gap ETHAN ( [facility]) calcium level 9.4 mg/dL 8.5-10.1 Calcium Level ETHAN ( [facility]) AST/SGOT 10 U/L 7-37 AST/SGOT [facility] ([facility]) bilirubin,total 0.3 mg/dL 0.2-1.0 Bilirubin,total ATHE ([facility]) alkaline phosphatase 92 U/L 45-117 Alkaline Phosph atase ETHAN ([facility]) ALT/SGPT 26 U/L 12-78 ALT/SGPT ETHAN ([facility]) total protein 6.5 gm/dL 6.4-8.2 Total Protein ETHAN ( [facility]) albumin 3.3 gm/dL 3.2-5.2 Albumin ETHAN ([facility]) albumin/globulin ratio 1.2-2.2 Below low normal Albumin /globulin Ratio ETHAN ([facility]) ID Date Data Source [id number] 02/20/2020 09:03:00 AM EST ETHAN ([facility]) Name Value Range Interpretation Code Description Data Dee Dee rce(s) Supporting Document(s) red blood count 4.47 10 4.00-5.40 Red Blood Count ATHE NA ([facility]) white blood count 5.7 10 4.0-10.0 White Blood Count ETHAN ([facility]) mean corpuscular volume 92.4 fL 80.0-96.0 Mean Corpusc ular Volume ETHAN ([facility]) hematocrit 41.3 % 36.0-47.0 Hematocrit ETHAN ([facility]) hemoglobin 13.7 g/dL 12.0-15.5 Hemoglobin ETHAN ([facility]) mean corpuscular HGB conc 33.2 g/dL 32.0-36.5 Mean Corpu scular HGB Conc ETHAN ([facility]) mean corpuscular hemoglobin 30.6 pg 27.0-33.0 Mean Cor puscular Hemoglobin ETHAN ([facility]) red cell distribution width 13.1 % 11.5-14.5 Red Cell Distribution Width ETHAN ([facility]) platelet count, automated 280 10 150-450 Platelet C ount, Automated ETHAN ([facility]) nucleated red blood cell % 0.0 % 0-0 Nucleated Red Blood Cell % ETHAN ([facility]) ID Date Data Source [id number] 02/20/2020 09:03:00 AM EST ETHAN ([facility]) Name Value Range Interpretation Code Description Data Dee Dee rce(s) Supporting Document(s) Hemoglobin A1c/Hemoglobin.total in Blood 10.5 % Hemoglobin a1C ETHAN ([facility]) estimated average glucose 255 mg/dL 60-110 Above high norm al Estimated Average Glucose ETHAN ([facility]) ID Date Data Source [id number] 02/20/2020 09:03:00 AM EST ETHAN ([facility]) Name Value Range Interpretation Code Description Data Dee Dee rce(s) Supporting Document(s) ferritin 23 NG/mL 8-252 Ferritin [facility] ([facility]) ID Date Data Source [id number] 02/20/2020 09:03[facility]00 [facility] Name Value Range Interpretation Code Description Data Dee Dee rce(s) Supporting Document(s) total 25(oh) vitamin D 32.0 NG/mL 30.0-100.0 Total 25(Oh) Vitamin D BACKUS ([facility]) ID Date Data Source [id number] 02/20/2020 09:03:00 AM [facility] Name Value Range Interpretation Code Description Data Dee Dee rce(s) Supporting Document(s) total iron binding capacity 289 ug/dL 250-450 Total Ir on Binding Capacity BACKUS ([facility]) percent saturation 27.7 % 13.2-45.0 Percent Saturatio n ETHAN ([facility]) iron (fe) 80 ug/dL 50-170 Iron (Fe) ETHAN ([facility]) ID Date Data Source [id number] 02/20/2020 09:03:00 AM [facility] Name Value Range Interpretation Code Description Data Dee Dee rce(s) Supporting Document(s) triglycerides level 298 mg/dL <150 Above high normal Triglycer ides Level ETHAN ([facility]) HDL cholesterol 37 mg/dL >40 Below low normal HDL Cholestero l BACKUS ([facility]) cholesterol level 162 mg/dL <200 Cholesterol Level ETHAN ([facility]) cholesterol risk ratio <5 Cholesterol R isk Ratio ETHAN ([facility]) non-HDL-C 125 mg/dL Non-hdl-c ETHAN ([facility]) Cholesterol in LDL [Mass/volume] in Serum or Plasma 65 mg/dL <1 00 LDL Cholesterol ETHAN ([facility]) ID Date Data Source [id number] 02/20/2020 09:03:00 AM EST ETHAN ([facility]) Name Value Range Interpretation Code Description Data Dee Dee rce(s) Supporting Document(s) glucose, fasting 236 mg/dL 70-100 Above high normal Glucose, Fas ting ETHAN ([facility]) glomerular filtration rate > 60.0 >58 Glomerula r Filtration Rate ETHAN ([facility]) blood urea nitrogen 14 mg/dL 7-18 Blood Urea Nitro gen ETHAN ([facility]) sodium level 135 mEq/L 136-145 Below low normal Sodium Level ATHE NA ([facility]) creatinine for GFR 0.65 mg/dL 0.55-1.30 Creatinine for GF R ETHAN ([facility]) potassium serum 4.4 mEq/L 3.5-5.1 Potassium Serum ATHE ([facility]) carbon dioxide level 27 mEq/L 21-32 Carbon Dioxide Level ETHAN ([facility]) chloride level 102 mEq/L 98-107 Chloride Level ETHAN ([facility]) anion gap 6 mEq/L 8-16 Below low normal Anion Gap ETHAN ( [facility]) alkaline phosphatase 92 U/L 45-117 Alkaline Phosph atase ETHAN ([facility]) ALT/SGPT 26 U/L 12-78 ALT/SGPT [facility] ([facility]) AST/SGOT 10 U/L 7-37 AST/SGOT [facility] ([facility]) calcium level 9.4 mg/dL 8.5-10.1 Calcium Level ETHAN ( [facility]) total protein 6.5 gm/dL 6.4-8.2 Total Protein ETHAN ( [facility]) albumin 3.3 gm/dL 3.2-5.2 Albumin ETHAN ([facility]) albumin/globulin ratio 1.2-2.2 Below low normal Albumin /globulin Ratio ETHAN ([facility]) bilirubin,total 0.3 mg/dL 0.2-1.0 Bilirubin,total ATHE NA ([facility]) ID Date Data Source [id number] 02/20/2020 09:03:00 AM EST ETHAN ([facility]) Name Value Range Interpretation Code Description Data Dee Dee rce(s) Supporting Document(s) white blood count 5.7 10 4.0-10.0 White Blood Count ETHAN ([facility]) red blood count 4.47 10 4.00-5.40 Red Blood Count ATHE ([facility]) hematocrit 41.3 % 36.0-47.0 Hematocrit ETHAN ([facility]) hemoglobin 13.7 g/dL 12.0-15.5 Hemoglobin ETHAN ([facility]) mean corpuscular volume 92.4 fL 80.0-96.0 Mean Corpusc ular Volume ETHAN ([facility]) mean corpuscular hemoglobin 30.6 pg 27.0-33.0 Mean Cor puscular Hemoglobin ETHAN ([facility]) red cell distribution width 13.1 % 11.5-14.5 Red Cell Distribution Width ETHAN ([facility]) mean corpuscular HGB conc 33.2 g/dL 32.0-36.5 Mean Corpu scular HGB Conc ETHAN ([facility]) platelet count, automated 280 10 150-450 Platelet C ount, Automated ETHAN ([facility]) nucleated red blood cell % 0.0 % 0-0 Nucleated Red Blood Cell % ETHAN ([facility]) ID Date Data Source [id number] 02/20/2020 09:03:00 AM EST ETHAN ([facility]) Name Value Range Interpretation Code Description Data Dee Dee rce(s) Supporting Document(s) Hemoglobin A1c/Hemoglobin.total in Blood 10.5 % Hemoglobin a1C ETHAN ([facility]) estimated average glucose 255 mg/dL 60-110 Above high norm al Estimated Average Glucose ETHAN ([facility]) ID Date Data Source [id number] 02/20/2020 09:03:00 AM EST ETHAN ([facility]) Name Value Range Interpretation Code Description Data Dee Dee rce(s) Supporting Document(s) ferritin 23 NG/mL 8-252 Ferritin [facility] ([facility]) ID Date Data Source [id number] 02/20/2020 09:03:00 AM EST ETHAN ([facility]) Name Value Range Interpretation Code Description Data Dee Dee rce(s) Supporting Document(s) total 25(oh) vitamin D 32.0 NG/mL 30.0-100.0 Total 25(Oh) Vitamin D BACKUS ([facility]) ID Date Data Source [id number] 02/20/2020 09:03:00 AM EST [facility]) Name Value Range Interpretation Code Description Data Dee Dee rce(s) Supporting Document(s) iron (fe) 80 ug/dL 50-170 Iron (Fe) ETHAN ([facility]) percent saturation 27.7 % 13.2-45.0 Percent Saturatio n ETHAN ([facility]) total iron binding capacity 289 ug/dL 250-450 Total Ir on Binding Capacity BACKUS ([facility]) ID Date Data Source [id number] 02/20/2020 09:03:00 AM EST [facility]) Name Value Range Interpretation Code Description Data Dee Dee rce(s) Supporting Document(s) triglycerides level 298 mg/dL <150 Above high normal Triglycer ides Level ETHAN ([facility]) cholesterol level 162 mg/dL <200 Cholesterol Level BACKUS ([facility]) HDL cholesterol 37 mg/dL >40 Below low normal HDL Cholestero l ETHAN ([facility]) Cholesterol in LDL [Mass/volume] in Serum or Plasma 65 mg/dL <1 00 LDL Cholesterol ETHAN ([facility]) non-HDL-C 125 mg/dL Non-hdl-c ETHAN ([facility]) cholesterol risk ratio <5 Cholesterol R isk Ratio ETHAN ([facility]) ID Date Data Source [id number] 02/20/2020 09:03:00 AM EST ETHAN ([facility]) Name Value Range Interpretation Code Description Data Dee Dee rce(s) Supporting Document(s) glucose, fasting 236 mg/dL 70-100 Above high normal Glucose, Fas ting ETHAN ([facility]) glomerular filtration rate > 60.0 >58 Glomerula r Filtration Rate ETHAN ([facility]) blood urea nitrogen 14 mg/dL 7-18 Blood Urea Nitro gen ETHAN ([facility]) creatinine for GFR 0.65 mg/dL 0.55-1.30 Creatinine for GF R ETHAN ([facility]) sodium level 135 mEq/L 136-145 Below low normal Sodium Level ATHE ([facility]) carbon dioxide level 27 mEq/L 21-32 Carbon Dioxide Level BACKUS ([facility]) potassium serum 4.4 mEq/L 3.5-5.1 Potassium Serum ATHE ([facility]) chloride level 102 mEq/L 98-107 Chloride Level BACKUS ([facility]) calcium level 9.4 mg/dL 8.5-10.1 Calcium Level ETHAN ( [facility]) AST/SGOT 10 U/L 7-37 AST/SGOT [facility] ([facility]) anion gap 6 mEq/L 8-16 Below low normal Anion Gap ETHAN ( [facility]) ALT/SGPT 26 U/L 12-78 ALT/SGPT [facility]AN ([facility]) bilirubin,total 0.3 mg/dL 0.2-1.0 Bilirubin,total ATHE ([facility]) alkaline phosphatase 92 U/L 45-117 Alkaline Phosph atase ETHAN ([facility]) total protein 6.5 gm/dL 6.4-8.2 Total Protein ETHAN ( [facility]) albumin/globulin ratio 1.2-2.2 Below low normal Albumin /globulin Ratio ETHAN ([facility]) albumin 3.3 gm/dL 3.2-5.2 Albumin [facility]AN ([facility]) ID Date Data Source [id number] 02/20/2020 09:03:00 AM EST ETHAN ([facility]) Name Value Range Interpretation Code Description Data Dee Dee rce(s) Supporting Document(s) white blood count 5.7 10 4.0-10.0 White Blood Count [facility] [facility] red blood count 4.47 10 4.00-5.40 Red Blood Count ATHE ([facility]) hemoglobin 13.7 g/dL 12.0-15.5 Hemoglobin ETHAN ([facility]) hematocrit 41.3 % 36.0-47.0 Hematocrit ETHAN ([facility]) mean corpuscular hemoglobin 30.6 pg 27.0-33.0 Mean Cor puscular Hemoglobin ETHAN ([facility]) mean corpuscular volume 92.4 fL 80.0-96.0 Mean Corpusc ular Volume ETHAN ([facility]) mean corpuscular HGB conc 33.2 g/dL 32.0-36.5 Mean Corpu scular HGB Conc ETHAN ([facility]) red cell distribution width 13.1 % 11.5-14.5 Red Cell Distribution Width ETHAN ([facility]) platelet count, automated 280 10 150-450 Platelet C ount, Automated ETHAN ([facility]) nucleated red blood cell % 0.0 % 0-0 Nucleated Red Blood Cell % ETHAN ([facility]) ID Date Data Source [id number] 02/20/2020 09:03:00 AM EST ETHAN ([facility]) Name Value Range Interpretation Code Description Data Dee Dee rce(s) Supporting Document(s) Hemoglobin A1c/Hemoglobin.total in Blood 10.5 % Hemoglobin a1C ETHAN ([facility]) estimated average glucose 255 mg/dL 60-110 Above high norm al Estimated Average Glucose ETHAN ([facility]) ID Date Data Source [id number] 02/20/2020 09:03:00 AM EST ETHAN ([facility]) Name Value Range Interpretation Code Description Data Dee Dee rce(s) Supporting Document(s) ferritin 23 NG/mL 8-252 Ferritin ETHAN ([facility]) ID Date Data Source [id number] 02/20/2020 09:03:00 AM EST ETHAN ([facility]) Name Value Range Interpretation Code Description Data Dee Dee rce(s) Supporting Document(s) total 25(oh) vitamin D 32.0 NG/mL 30.0-100.0 Total 25(Oh) Vitamin D ETHAN ([facility]) ID Date Data Source [id number] 02/20/2020 09:03:00 AM EST ETHAN ([facility]) Name Value Range Interpretation Code Description Data Dee Dee rce(s) Supporting Document(s) iron (fe) 80 ug/dL 50-170 Iron (Fe) ETHAN ([facility]) total iron binding capacity 289 ug/dL 250-450 Total Ir on Binding Capacity ETHAN ([facility]) percent saturation 27.7 % 13.2-45.0 Percent Saturatio n ETHAN ([facility]) ID Date Data Source [id number] 02/20/2020 09:03:00 AM EST ETHAN ([facility]) Name Value Range Interpretation Code Description Data Dee Dee rce(s) Supporting Document(s) cholesterol level 162 mg/dL <200 Cholesterol Level ETHAN ([facility]) triglycerides level 298 mg/dL <150 Above high normal Triglycer ides Level ETHAN ([facility]) Cholesterol in LDL [Mass/volume] in Serum or Plasma 65 mg/dL <1 00 LDL Cholesterol ETHAN ([facility]) HDL cholesterol 37 mg/dL >40 Below low normal HDL Cholestero l ETHAN ([facility]) cholesterol risk ratio <5 Cholesterol R isk Ratio ETHAN ([facility]) non-HDL-C 125 mg/dL Non-hdl-c ETHAN ([facility]) ID Date Data Source [id number] 02/20/2020 09:03:00 AM EST ETHAN ([facility]) Name Value Range Interpretation Code Description Data Dee Dee rce(s) Supporting Document(s) glucose, fasting 236 mg/dL 70-100 Above high normal Glucose, Fas ting ETHAN ([facility]) blood urea nitrogen 14 mg/dL 7-18 Blood Urea Nitro gen ETHAN ([facility]) glomerular filtration rate > 60.0 >58 Glomerula r Filtration Rate ETHAN ([facility]) sodium level 135 mEq/L 136-145 Below low normal Sodium Level ATHE NA ([facility]) creatinine for GFR 0.65 mg/dL 0.55-1.30 Creatinine for GF R ETHAN ([facility]) chloride level 102 mEq/L 98-107 Chloride Level BACKUS ([facility]) potassium serum 4.4 mEq/L 3.5-5.1 Potassium Serum ATHE ([facility]) anion gap 6 mEq/L 8-16 Below low normal Anion Gap ETHAN ( [facility]) carbon dioxide level 27 mEq/L 21-32 Carbon Dioxide Level ETHAN ([facility]) ALT/SGPT 26 U/L 12-78 ALT/SGPT ETHAN ([facility]) alkaline phosphatase 92 U/L 45-117 Alkaline Phosph atase ETHAN ([facility]) calcium level 9.4 mg/dL 8.5-10.1 Calcium Level ETHAN ( [facility]) AST/SGOT 10 U/L 7-37 AST/SGOT ETHAN ([facility]) bilirubin,total 0.3 mg/dL 0.2-1.0 Bilirubin,total ATHE ([facility]) total protein 6.5 gm/dL 6.4-8.2 Total Protein BACKUS ( [facility]) albumin/globulin ratio 1.2-2.2 Below low normal Albumin /globulin Ratio ETHAN ([facility]) albumin 3.3 gm/dL 3.2-5.2 Albumin ETHAN ([facility]) ID Date Data Source [id number] 02/20/2020 09:03:00 AM EST ETHAN ([facility]) Name Value Range Interpretation Code Description Data Dee Dee rce(s) Supporting Document(s) red blood count 4.47 10 4.00-5.40 Red Blood Count ATHE NA ([facility]) white blood count 5.7 10 4.0-10.0 White Blood Count ETHAN ([facility]) hematocrit 41.3 % 36.0-47.0 Hematocrit ETHAN ([facility]) hemoglobin 13.7 g/dL 12.0-15.5 Hemoglobin ETHAN ([facility]) mean corpuscular volume 92.4 fL 80.0-96.0 Mean Corpusc ular Volume ETHAN ([facility]) mean corpuscular hemoglobin 30.6 pg 27.0-33.0 Mean Cor puscular Hemoglobin ETHAN ([facility]) red cell distribution width 13.1 % 11.5-14.5 Red Cell Distribution Width ETHAN ([facility]) platelet count, automated 280 10 150-450 Platelet C ount, Automated ETHAN ([facility]) mean corpuscular HGB conc 33.2 g/dL 32.0-36.5 Mean Corpu scular HGB Conc ETHAN ([facility]) nucleated red blood cell % 0.0 % 0-0 Nucleated Red Blood Cell % ETHAN ([facility]) ID Date Data Source [id number] 02/20/2020 09:03:00 AM EST ETHAN ([facility]) Name Value Range Interpretation Code Description Data Dee Dee rce(s) Supporting Document(s) estimated average glucose 255 mg/dL 60-110 Above high norm al Estimated Average Glucose ETHAN ([facility]) Hemoglobin A1c/Hemoglobin.total in Blood 10.5 % Hemoglobin a1C ETHAN ([facility]) ID Date Data Source [id number] 02/20/2020 09:03:00 AM EST ETHAN ([facility]) Name Value Range Interpretation Code Description Data Dee Dee rce(s) Supporting Document(s) ferritin 23 NG/mL 8-252 Ferritin ETHAN ([facility]) ID Date Data Source [id number] 02/20/2020 09:03:00 AM EST ETHAN ([facility]) Name Value Range Interpretation Code Description Data Dee Dee rce(s) Supporting Document(s) total 25(oh) vitamin D 32.0 NG/mL 30.0-100.0 Total 25(Oh) Vitamin D BACKUS ([facility]) ID Date Data Source [id number] 02/20/2020 09:03:00 AM EST ETHAN ([facility]) Name Value Range Interpretation Code Description Data Dee Dee rce(s) Supporting Document(s) iron (fe) 80 ug/dL 50-170 Iron (Fe) ETHAN ([facility]) percent saturation 27.7 % 13.2-45.0 Percent Saturatio n BACKUS ([facility]) total iron binding capacity 289 ug/dL 250-450 Total Ir on Binding Capacity ETHAN ([facility]) ID Date Data Source [id number] 02/20/2020 09:03:00 AM EST ETHAN ([facility]) Name Value Range Interpretation Code Description Data Dee Dee rce(s) Supporting Document(s) triglycerides level 298 mg/dL <150 Above high normal Triglycer ides Level ETHAN ([facility]) Cholesterol in LDL [Mass/volume] in Serum or Plasma 65 mg/dL <1 00 LDL Cholesterol ETHAN ([facility]) HDL cholesterol 37 mg/dL >40 Below low normal HDL Cholestero l ETHAN ([facility]) cholesterol level 162 mg/dL <200 Cholesterol Level ETHAN ([facility]) cholesterol risk ratio <5 Cholesterol R isk Ratio ETHAN ([facility]) non-HDL-C 125 mg/dL Non-hdl-c ETHAN ([facility]) ID Date Data Source [id number] 02/20/2020 09:03:00 AM EST ETHAN ([facility]) Name Value Range Interpretation Code Description Data Dee Dee rce(s) Supporting Document(s) glucose, fasting 236 mg/dL 70-100 Above high normal Glucose, Fas ting ETHAN ([facility]) blood urea nitrogen 14 mg/dL 7-18 Blood Urea Nitro gen ETHAN ([facility]) glomerular filtration rate > 60.0 >58 Glomerula r Filtration Rate ETHAN ([facility]) creatinine for GFR 0.65 mg/dL 0.55-1.30 Creatinine for GF R ETHAN ([facility]) carbon dioxide level 27 mEq/L 21-32 Carbon Dioxide Level ETHAN ([facility]) chloride level 102 mEq/L 98-107 Chloride Level ETHAN ([facility]) sodium level 135 mEq/L 136-145 Below low normal Sodium Level ATHE ([facility]) potassium serum 4.4 mEq/L 3.5-5.1 Potassium Serum ATHE ([facility]) AST/SGOT 10 U/L 7-37 AST/SGOT ETHAN ([facility]) anion gap 6 mEq/L 8-16 Below low normal Anion Gap ETHAN ( [facility]) calcium level 9.4 mg/dL 8.5-10.1 Calcium Level ETHAN ( [facility]) bilirubin,total 0.3 mg/dL 0.2-1.0 Bilirubin,total ATHE ([facility]) alkaline phosphatase 92 U/L 45-117 Alkaline Phosph atase ETHAN ([facility]) ALT/SGPT 26 U/L 12-78 ALT/SGPT ETHAN ([facility]) albumin 3.3 gm/dL 3.2-5.2 Albumin ETHAN ([facility]) total protein 6.5 gm/dL 6.4-8.2 Total Protein ETHAN ( [facility]) albumin/globulin ratio 1.2-2.2 Below low normal Albumin /globulin Ratio ETHAN ([facility]) ID Date Data Source [id number] 02/20/2020 09:03:00 AM EST ETHAN ([facility]) Name Value Range Interpretation Code Description Data Dee Dee rce(s) Supporting Document(s) white blood count 5.7 10 4.0-10.0 White Blood Count ETHAN ([facility]) red blood count 4.47 10 4.00-5.40 Red Blood Count ATHE ([facility]) hemoglobin 13.7 g/dL 12.0-15.5 Hemoglobin ETHAN ([facility]) mean corpuscular volume 92.4 fL 80.0-96.0 Mean Corpusc ular Volume ETHAN ([facility]) hematocrit 41.3 % 36.0-47.0 Hematocrit ETHAN ([facility]) mean corpuscular HGB conc 33.2 g/dL 32.0-36.5 Mean Corpu scular HGB Conc ETHAN ([facility]) mean corpuscular hemoglobin 30.6 pg 27.0-33.0 Mean Cor puscular Hemoglobin ETHAN ([facility]) red cell distribution width 13.1 % 11.5-14.5 Red Cell Distribution Width ETHAN ([facility]) platelet count, automated 280 10 150-450 Platelet C ount, Automated ETHAN ([facility]) nucleated red blood cell % 0.0 % 0-0 Nucleated Red Blood Cell % ETHAN ([facility]) ID Date Data Source [id number] 02/20/2020 09:03:00 AM EST ETHAN ([facility]) Name Value Range Interpretation Code Description Data Dee Dee rce(s) Supporting Document(s) estimated average glucose 255 mg/dL 60-110 Above high norm al Estimated Average Glucose ETHAN ([facility]) Hemoglobin A1c/Hemoglobin.total in Blood 10.5 % Hemoglobin a1C ETHAN ([facility]) ID Date Data Source [id number] 02/20/2020 09:03:00 AM EST ETHAN ([facility]) Name Value Range Interpretation Code Description Data Dee Dee rce(s) Supporting Document(s) ferritin 23 NG/mL 8-252 Ferritin ETHAN ([facility]) ID Date Data Source [id number] 02/20/2020 09:03:00 AM EST ETHAN ([facility]) Name Value Range Interpretation Code Description Data Dee Dee rce(s) Supporting Document(s) total 25(oh) vitamin D 32.0 NG/mL 30.0-100.0 Total 25(Oh) Vitamin D BACKUS ([facility]) ID Date Data Source [id number] 02/20/2020 09:03:00 AM EST ETHAN ([facility]) Name Value Range Interpretation Code Description Data Dee Dee rce(s) Supporting Document(s) iron (fe) 80 ug/dL 50-170 Iron (Fe) ETHAN ([facility]) total iron binding capacity 289 ug/dL 250-450 Total Ir on Binding Capacity BACKUS ([facility]) percent saturation 27.7 % 13.2-45.0 Percent Saturatio n ETHAN ([facility]) ID Date Data Source [id number] 02/20/2020 09:03:00 AM EST ETHAN ([facility]) Name Value Range Interpretation Code Description Data Dee Dee rce(s) Supporting Document(s) triglycerides level 298 mg/dL <150 Above high normal Triglycer ides Level ETHAN ([facility]) cholesterol level 162 mg/dL <200 Cholesterol Level ETHAN ([facility]) HDL cholesterol 37 mg/dL >40 Below low normal HDL Cholestero l ETHAN ([facility]) Cholesterol in LDL [Mass/volume] in Serum or Plasma 65 mg/dL <1 00 LDL Cholesterol ETHAN ([facility]) non-HDL-C 125 mg/dL Non-hdl-c ETHAN ([facility]) cholesterol risk ratio <5 Cholesterol R isk Ratio ETHAN ([facility]) ID Date Data Source [id number] 02/20/2020 09:03:00 AM EST ETHAN ([facility]) Name Value Range Interpretation Code Description Data Dee Dee rce(s) Supporting Document(s) blood urea nitrogen 14 mg/dL 7-18 Blood Urea Nitro gen ETHAN ([facility]) glucose, fasting 236 mg/dL 70-100 Above high normal Glucose, Fas ting ETHAN ([facility]) creatinine for GFR 0.65 mg/dL 0.55-1.30 Creatinine for GF R ETHAN ([facility]) potassium serum 4.4 mEq/L 3.5-5.1 Potassium Serum ATHE ([facility]) glomerular filtration rate > 60.0 >58 Glomerula r Filtration Rate ETHAN ([facility]) sodium level 135 mEq/L 136-145 Below low normal Sodium Level ATHE ([facility]) carbon dioxide level 27 mEq/L 21-32 Carbon Dioxide Level ETHAN ([facility]) chloride level 102 mEq/L 98-107 Chloride Level ETHAN ([facility]) anion gap 6 mEq/L 8-16 Below low normal Anion Gap ETHAN ( [facility]) calcium level 9.4 mg/dL 8.5-10.1 Calcium Level ETHAN ( [facility]) AST/SGOT 10 U/L 7-37 AST/SGOT ETHAN ([facility]) alkaline phosphatase 92 U/L 45-117 Alkaline Phosph atase ETHAN ([facility]) ALT/SGPT 26 U/L 12-78 ALT/SGPT ETHAN ([facility]) bilirubin,total 0.3 mg/dL 0.2-1.0 Bilirubin,total ATHE ([facility]) albumin 3.3 gm/dL 3.2-5.2 Albumin ETHAN ([facility]) total protein 6.5 gm/dL 6.4-8.2 Total Protein ETHAN ( [facility]) albumin/globulin ratio 1.2-2.2 Below low normal Albumin /globulin Ratio ETHAN ([facility]) ID Date Data Source [id number] 02/20/2020 09:03:00 AM EST ETHAN ([facility]) Name Value Range Interpretation Code Description Data Dee Dee rce(s) Supporting Document(s) white blood count 5.7 10 4.0-10.0 White Blood Count ETHAN ([facility]) red blood count 4.47 10 4.00-5.40 Red Blood Count ATHE NA ([facility]) hemoglobin 13.7 g/dL 12.0-15.5 Hemoglobin ETHAN ([facility]) hematocrit 41.3 % 36.0-47.0 Hematocrit ETHAN ([facility]) mean corpuscular volume 92.4 fL 80.0-96.0 Mean Corpusc ular Volume ETHAN ([facility]) mean corpuscular hemoglobin 30.6 pg 27.0-33.0 Mean Cor puscular Hemoglobin ETHAN ([facility]) mean corpuscular HGB conc 33.2 g/dL 32.0-36.5 Mean Corpu scular HGB Conc ETHAN ([facility]) red cell distribution width 13.1 % 11.5-14.5 Red Cell Distribution Width ETHAN ([facility]) platelet count, automated 280 10 150-450 Platelet C ount, Automated ETHAN ([facility]) nucleated red blood cell % 0.0 % 0-0 Nucleated Red Blood Cell % ETHAN ([facility]) ID Date Data Source [id number] 02/20/2020 09:03:00 AM EST ETHAN ([facility]) Name Value Range Interpretation Code Description Data Dee Dee rce(s) Supporting Document(s) Hemoglobin A1c/Hemoglobin.total in Blood 10.5 % Hemoglobin a1C ETHAN ([facility]) estimated average glucose 255 mg/dL 60-110 Above high norm al Estimated Average Glucose ETHAN ([facility]) ID Date Data Source [id number] 02/20/2020 09:03:00 AM EST ETHAN ([facility]) Name Value Range Interpretation Code Description Data Dee Dee rce(s) Supporting Document(s) ferritin 23 NG/mL 8-252 Ferritin ETHAN ([facility]) ID Date Data Source [id number] 02/20/2020 09:03:00 AM EST ETHAN ([facility]) Name Value Range Interpretation Code Description Data Dee Dee rce(s) Supporting Document(s) total 25(oh) vitamin D 32.0 NG/mL 30.0-100.0 Total 25(Oh) Vitamin D ETHAN ([facility]) ID Date Data Source [id number] 02/20/2020 09:03:00 AM EST ETHAN ([facility]) Name Value Range Interpretation Code Description Data Dee Dee rce(s) Supporting Document(s) total iron binding capacity 289 ug/dL 250-450 Total Ir on Binding Capacity ETHAN ([facility]) iron (fe) 80 ug/dL 50-170 Iron (Fe) ETHAN ([facility]) percent saturation 27.7 % 13.2-45.0 Percent Saturatio n ETHAN ([facility]) ID Date Data Source [id number] 02/20/2020 09:03:00 AM EST ETHAN ([facility]) Name Value Range Interpretation Code Description Data Dee Dee rce(s) Supporting Document(s) triglycerides level 298 mg/dL <150 Above high normal Triglycer ides Level ETHAN ([facility]) cholesterol level 162 mg/dL <200 Cholesterol Level ETHAN ([facility]) HDL cholesterol 37 mg/dL >40 Below low normal HDL Cholestero l ETHAN ([facility]) Cholesterol in LDL [Mass/volume] in Serum or Plasma 65 mg/dL <1 00 LDL Cholesterol ETHAN ([facility]) non-HDL-C 125 mg/dL Non-hdl-c ETHAN ([facility]) cholesterol risk ratio <5 Cholesterol R isk Ratio ETHAN ([facility]) ID Date Data Source [id number] 02/20/2020 09:03:00 AM EST ETHAN ([facility]) Name Value Range Interpretation Code Description Data Dee Dee rce(s) Supporting Document(s) glucose, fasting 236 mg/dL 70-100 Above high normal Glucose, Fas ting ETHAN ([facility]) blood urea nitrogen 14 mg/dL 7-18 Blood Urea Nitro gen ETHAN ([facility]) glomerular filtration rate > 60.0 >58 Glomerula r Filtration Rate ETHAN ([facility]) creatinine for GFR 0.65 mg/dL 0.55-1.30 Creatinine for GF R ETHAN ([facility]) potassium serum 4.4 mEq/L 3.5-5.1 Potassium Serum [facility]) sodium level 135 mEq/L 136-145 Below low normal Sodium Level ATHE ([facility]) chloride level 102 mEq/L 98-107 Chloride Level ETHAN ([facility]) carbon dioxide level 27 mEq/L 21-32 Carbon Dioxide Level ETHAN ([facility]) anion gap 6 mEq/L 8-16 Below low normal Anion Gap ETHAN ( [facility]) AST/SGOT 10 U/L 7-37 AST/SGOT ETHAN ([facility]) calcium level 9.4 mg/dL 8.5-10.1 Calcium Level ETHAN ( [facility]) ALT/SGPT 26 U/L 12-78 ALT/SGPT ETHAN ([facility]) bilirubin,total 0.3 mg/dL 0.2-1.0 Bilirubin,total ATHE ([facility]) alkaline phosphatase 92 U/L 45-117 Alkaline Phosph atase ETHAN ([facility]) total protein 6.5 gm/dL 6.4-8.2 Total Protein ETHAN ( [facility]) albumin 3.3 gm/dL 3.2-5.2 Albumin ETHAN ([facility]) albumin/globulin ratio 1.2-2.2 Below low normal Albumin /globulin Ratio ETHAN ([facility]) ID Date Data Source [id number] 02/20/2020 09:03:00 AM MAGNO LONG ([facility]) Name Value Range Interpretation Code Description Data Dee Dee rce(s) Supporting Document(s) white blood count 5.7 10 4.0-10.0 White Blood Count ETHAN ([facility]) hemoglobin 13.7 g/dL 12.0-15.5 Hemoglobin ETHAN ([facility]) red blood count 4.47 10 4.00-5.40 Red Blood Count ATHE NA ([facility]) hematocrit 41.3 % 36.0-47.0 Hematocrit ETHAN ([facility]) mean corpuscular hemoglobin 30.6 pg 27.0-33.0 Mean Cor puscular Hemoglobin ETHAN ([facility]) mean corpuscular volume 92.4 fL 80.0-96.0 Mean Corpusc ular Volume ETHAN ([facility]) red cell distribution width 13.1 % 11.5-14.5 Red Cell Distribution Width ETHAN ([facility]) mean corpuscular HGB conc 33.2 g/dL 32.0-36.5 Mean Corpu scular HGB Conc ETHAN ([facility]) platelet count, automated 280 10 150-450 Platelet C ount, Automated ETHAN ([facility]) nucleated red blood cell % 0.0 % 0-0 Nucleated Red Blood Cell % ETHAN ([facility]) ID Date Data Source [id number] 02/20/2020 09:03:00 AM EST ETHAN ([facility]) Name Value Range Interpretation Code Description Data Dee Dee rce(s) Supporting Document(s) estimated average glucose 255 mg/dL 60-110 Above high norm al Estimated Average Glucose ETHAN ([facility]) Hemoglobin A1c/Hemoglobin.total in Blood 10.5 % Hemoglobin a1C ETHAN ([facility]) ID Date Data Source [id number] 02/20/2020 09:03:00 AM EST ETHAN ([facility]) Name Value Range Interpretation Code Description Data Dee Dee rce(s) Supporting Document(s) ferritin 23 NG/mL 8-252 Ferritin ETHAN ([facility]) ID Date Data Source [id number] 02/20/2020 09:03:00 AM EST ETHAN ([facility]) Name Value Range Interpretation Code Description Data Dee Dee rce(s) Supporting Document(s) total 25(oh) vitamin D 32.0 NG/mL 30.0-100.0 Total 25(Oh) Vitamin D BACKUS ([facility]) ID Date Data Source [id number] 02/20/2020 09:03:00 AM EST ETHAN ([facility]) Name Value Range Interpretation Code Description Data Dee Dee rce(s) Supporting Document(s) total iron binding capacity 289 ug/dL 250-450 Total Ir on Binding Capacity ETHAN ([facility]) iron (fe) 80 ug/dL 50-170 Iron (Fe) BACKUS ([facility]) percent saturation 27.7 % 13.2-45.0 Percent Saturatio n BACKUS ([facility]) ID Date Data Source [id number] 12/24/2019 10:22:02 AM EDT [facility] [...] Syringe 0.5 MLMfr / Lot# / Exp.Date: [employer] / [id number] 1Amt. Given / Route / Site: 0.5 mL / IM / Right DeltoidNDC / CVX: [id number] / 150Administered Date: 12/24/2019 11:48VFC Eligibility: Not [...] during this visit, including review of any geej-xag-aunqosx medications, herbal therapies, and/or supplements.Allergy ReviewAllergy List [...] Problems:Added: Gastro-esophageal reflux disease without esophagitis (ICD-530.81) (DCZ62-I62.9) Assessment: Instructions: Omeprazole daily x 30 days. Low acid diet.Assessed:COVID-19 (NTY09-I60.1) Assessment: Instructions: Symptoms continue to improve, now only requiring as needed albuterol. Call for any worsening symptoms.Dyspnea (ICD-786.05) (QMY52-F08.02) Assessment: Instructions: As above.Ankle edema (ICD-719.07) (PKH07-L73.0) Assessment: Instructions: Continue your routine once daily dose of hydrochlorothiazide.Needs vaccination for influenza (ICD-V04.81) (PSN33-H66) Assessment: Instructions: Flu vaccine today.Hyperglycemia due to type 2 diabetes mellitus (EJQ42-S60.65) Assessment: Instructions: Update labs in 2 months at next visit.Removed:Increased frequency of urination (ICD-788.41) (EDE51-V58.0)Patient Instructions/Care Plan: COVID-19: Symptoms continue to improve, [...] (Critical)Orders:Adult - Ofc Vst, EST, Level III [CPT-36025] FluLaval Quadrivalent, preservative free [CPT-53428] Follow-Up Return to clinic: in 2 months for follow upAdditional Follow-Up: T2DM after labsClinical Visit Summary Completed Name Value Range Interpretation Code Description Data Dee Dee rce(s) Supporting Document(s) ID Date Data Source [id number] 12/17/2019 03:06:21 PM EDT [facility] [...] pH: 6.5 5.0-6.5 Blood: 10 Negative Specific Burney: 1.020 1.020>=1.030 Ketone: 0.5 Negative Bilirubin: negative [...] for hospital discharge. Pt was admitted to [facility] for COVID19 with pneumonia from 12/04/2019-12/05/2019. Pt [...] during this visit, including review of any diby-ieg-ysxicqd medications, herbal therapies, and/or supplements.Allergy ReviewAllergy List [...] is? FairAssessment & Plan Problems:Added: Dyspnea (ICD-786.05) (XSX90-H15.02)COVID-19 (BDL22-J54.1) Assessment: Instructions: Overall symptoms are improving. Ventolin [...] from your quarantine.Increased frequency of urination (ICD-788.41) (YNC03-U27.0) Assessment: Instructions: No sign of infection. Urine sent for culture and I will call you if this needs antibiotics based on culture.Assessed:Ankle edema (ICD-719.07) (ESZ36-O67.0) Assessment: Instructions: Increase hydrochlorothiazide to 2 tablets [...] 1[Container] Refills: 1 Method: ElectronicAllergies:PENICILL IN (Critical)Orders:Urinalysis-automated [CPT-83447] Urine Culture & Sensitivity [CPT-06866] Adult - Ofc Vst, EST, Level III [CPT-70228] Follow-Up Return to clinic: in 1 week for follow upAdditional Follow-Up: telehealth follow- upClinical Visit Summary CompletedMedications:ALBUTEROL SULFATE HFA 108 (90 BASE) MCG/ACT INHALATION AEROSOL SOLUTION (ALBUTEROL SULFATE) Take 2 puffs oral inhalation q 4 hrs prn wheezing or shortness of breath #1[Container] x 1 Route:INHALATION Entered and Authorized by: Kentrell OSUNA Method used: Electronically to [facility] ([employer] [facility]) [address] [place] [address] Fax: Note to Pharmacy: Route: INHALATION; Indications: COVID- 19;DYSPNEA RxID: [id number] (NEBULIZERS) machine with adult mask and tubing #1[Device] x 0 Entered and Authorized by: Kentrell OSUNA Method used: Electronically to [facility] ([employer] [facility]) [address] [place] [address] Indications: COVID-19;DYSPNEA RxID: [id number] SULFATE (2.5 MG/3ML) 0.083% INHALATION NEBULIZATION SOLUTION (ALBUTEROL SULFATE) 1 vial q 4-6hrs prn wheezing/shortness of breath #1[Box] x 0 Route:INHALATION Entered and Authorized by: Kentrell OSUNA Method used: Electronically to [facility]* (retail) [address] [place] [address] Note to Pharmacy: Route: INHALATION; Indications: COVID-19;DYSPNEA RxID: [id number] signed by Kentrell OSUNA on 12/24/2019 at 10:34 AM Name Value Range Interpretation Code Description Data Dee Dee rce(s) Supporting Document(s) ID Date Data Source [id number] 12/17/2019 03:06:21 PM EDT [facility] Name Value Range Interpretation Code Description Data Dee Dee rce(s) Supporting Document(s) APPEARANCE U cloudy [facility] BILIRUBIN UR negative [facility] BLOOD UR DIP 10 [facility] GLUCOSE, URN 60 [facility] KETONES URN 0.5 [facility] NITRITE URN negative [facility] ly [facility] PH URINE 6.5 [facility] PROTEIN, URN 0.15 [facility] SPEC GR URIN 1.020 [facility] UA COLOR yellow [facility] UROBILINOGEN 3.5 [facility] WBC DIPSTK U negative [facility] ID Date Data Source [id number] 12/17/2019 08:45:00 AM EDT [facility] Name Value Range Interpretation Code Description Data Dee Dee rce(s) Supporting Document(s) URINECULTRTN SPECIMEN APPEARS CONTAMINATED N [facility] Procedure Social History Code Duration Value Status Description Data Source(s ) Alcohol intake 08/26/2020 12:00:00 AM EDT Ex-drinker (finding) comp leted Ex- drinker (finding) [facility] Tobacco use and exposure 08/26/2020 12:00:00 AM EDT Never used co mpleted Never used [facility] Smoking 08/26/2020 12:00:00 AM EDT Never smoker completed Never [facility] Tobacco use and exposure 06/25/2020 12:00:00 AM EDT Never used co mpleted Never used [facility] Smoking 06/25/2020 12:00:00 AM EDT Never smoker completed Never [facility] Vital Signs ID Date Data Source UNK Name Value Range Interpretation Code Description Data Source(s) Diastolic blood pressure 84 mm[Hg] 84 mm[Hg] BACKUS ([facility]) Body height 67 [in_i] 67 [in_i] BACKUS ([facility]) Body mass index (BMI) [Ratio] 52 kg/m2 52 kg/ m2 TEHAN ([facility]) Systolic blood pressure 129 mm[Hg] 129 mm[Hg] A [facility] ([facility]) Body weight 5312 [oz_av] 5312 [oz_av] ETHAN ([facility]) Diastolic blood pressure 84 mm[Hg] 84 mm[Hg] ETHAN ([facility]) Body height 67 [in_i] 67 [in_i] ETHAN ([facility]) Body mass index (BMI) [Ratio] 52.3 kg/m2 52.3 k g/m2 ETHAN ([facility]) Systolic blood pressure 121 mm[Hg] 121 mm[Hg] A [facility] ([facility]) Body weight 5344 [oz_av] 5344 [oz_av] ETHAN ([facility]) Diastolic blood pressure 84 mm[Hg] 84 mm[Hg] ETHAN ([facility]) Body height 67 [in_i] 67 [in_i] ETHAN ([facility]) Body mass index (BMI) [Ratio] 52.3 kg/m2 52.3 k g/m2 ETHAN ([facility]) Systolic blood pressure 121 mm[Hg] 121 mm[Hg] A [facility] ([facility]) Body weight 5344 [oz_av] 5344 [oz_av] ETHAN ([facility]) Body mass index (BMI) [Ratio] 52.3 kg/m2 52.3 k g/m2 ETHAN ([facility]) Systolic blood pressure 121 mm[Hg] 121 mm[Hg] A [facility] ([facility]) Body height 67 [in_i] 67 [in_i] ETHAN ([facility]) Diastolic blood pressure 84 mm[Hg] 84 mm[Hg] ETHAN ([facility]) Body weight 5344 [oz_av] 5344 [oz_av] ETHAN ([facility]) Body mass index (BMI) [Ratio] 50.63 kg/m2 50.63 kg/m2 [facility] Heart rate 104 /min 104 /min [facility] Body height 172.7 cm 172.7 cm [facility] Body weight 151.048 kg 151.048 kg [facility] Body height 67 [in_i] 67 [in_i] ETHAN ([facility]) Body mass index (BMI) [Ratio] 54.7 kg/m2 54.7 k g/m2 ETHAN ([facility]) Diastolic blood pressure 91 mm[Hg] 91 mm[Hg] ETHAN ([facility]) Diastolic blood pressure 89 mm[Hg] 89 mm[Hg] ETHAN ([facility]) Systolic blood pressure 140 mm[Hg] 140 mm[Hg] A [facility] ([facility]) Systolic blood pressure 133 mm[Hg] 133 mm[Hg] A [facility] ([facility]) Body weight 5587.2 [oz_av] 5587.2 [oz_av] ATHEN A ([facility]) Diastolic blood pressure 89 mm[Hg] 89 mm[Hg] ETHAN ([facility]) Body mass index (BMI) [Ratio] 54.7 kg/m2 54.7 k g/m2 ETHAN ([facility]) Systolic blood pressure 133 mm[Hg] 133 mm[Hg] A THENA ([facility]) Body weight 5587.2 [oz_av] 5587.2 [oz_av] ATHEN A ([facility]) Systolic blood pressure 140 mm[Hg] 140 mm[Hg] A THENA ([facility]) Diastolic blood pressure 91 mm[Hg] 91 mm[Hg] ETHAN ([facility]) Body height 67 [in_i] 67 [in_i] ETHAN ([facility]) Diastolic blood pressure 89 mm[Hg] 89 mm[Hg] ETHAN ([facility]) Diastolic blood pressure 91 mm[Hg] 91 mm[Hg] ETHAN ([facility]) Body height 67 [in_i] 67 [in_i] ETHAN ([facility]) Body mass index (BMI) [Ratio] 54.7 kg/m2 54.7 k g/m2 ETHAN ([facility]) Systolic blood pressure 133 mm[Hg] 133 mm[Hg] A THENA ([facility]) Systolic blood pressure 140 mm[Hg] 140 [facility]Hg[facility] Body weight 5587.2 [oz_av] 5587.2 [oz_av] ATHEN A ([facility]) Diastolic blood pressure 89 mm[Hg] 89 mm[Hg] ETHAN ([facility]) Diastolic blood pressure 91 mm[Hg] 91 mm[Hg] ETHAN ([facility]) Body height 67 [in_i] 67 [in_i] ETHAN ([facility]) Body mass index (BMI) [Ratio] 54.7 kg/m2 54.7 k g/m2 ETHAN ([facility]) Systolic blood pressure 133 mm[Hg] 133 mm[Hg] A THENA ([facility]) Systolic blood pressure 140 mm[Hg] 140 mm[Hg] A THENA ([facility]) Body weight 5587.2 [oz_av] 5587.2 [oz_av] ATHEN A ([facility]) Diastolic blood pressure 89 mm[Hg] 89 mm[Hg] ETHAN ([facility]) Diastolic blood pressure 91 mm[Hg] 91 mm[Hg] ETHAN ([facility]) Body height 67 [in_i] 67 [in_i] ETHAN ([facility]) Body mass index (BMI) [Ratio] 54.7 kg/m2 54.7 k g/m2 ETHAN ([facility]) Systolic blood pressure 133 mm[Hg] 133 mm[Hg] A THENA ([facility]) Systolic blood pressure 140 mm[Hg] 140 mm[facility]Hg[facility] Body weight 5587.2 [oz_av] 5587.2 [oz_av] ATHEN A ([facility]) Diastolic blood pressure 89 mm[Hg] 89 mm[Hg] ETHAN ([facility]) Diastolic blood pressure 91 mm[Hg] 91 mm[Hg] ETHAN ([facility]) Body height 67 [in_i] 67 [in_i] ETHAN ([facility]) Body mass index (BMI) [Ratio] 54.7 kg/m2 54.7 k g/m2 ETHAN ([facility]) Systolic blood pressure 133 mm[Hg] 133 mm[Hg] A THENA ([facility]) Systolic blood pressure 140 mm[Hg] 140 mm[Hg] A THENA ([facility]) Body weight 5587.2 [oz_av] 5587.2 [oz_av] ATHEN A ([facility]) Diastolic blood pressure 89 mm[Hg] 89 mm[Hg] ETHAN ([facility]) Diastolic blood pressure 91 mm[Hg] 91 mm[Hg] ETHAN ([facility]) Body height 67 [in_i] 67 [in_i] ETHAN ([facility]) Body mass index (BMI) [Ratio] 54.7 kg/m2 54.7 k g/m2 ETHAN ([facility]) Systolic blood pressure 133 mm[Hg] 133 mm[Hg] A THENA ([facility]) Systolic blood pressure 140 mm[Hg] 140 mm[Hg] A THENA ([facility]) Body weight 5587.2 [oz_av] 5587.2 [oz_av] ATHEN A ([facility]) Diastolic blood pressure 84 mm[Hg] 84 mm[Hg] ETHAN ([facility]) Body height 67 [in_i] 67 [in_i] ETHAN ([facility]) Body mass index (BMI) [Ratio] 55 kg/m2 55 kg/ m2 ETHAN ([facility]) Systolic blood pressure 119 mm[Hg] 119 mm[Hg[facility] Body weight 5622.4 [oz_av] 5622.4 [oz_av] ATHEN A ([facility]) Diastolic blood pressure 84 mm[Hg] 84 mm[Hg] ETHAN ([facility]) Body mass index (BMI) [Ratio] 55 kg/m2 55 kg/ m2 ETHAN ([facility]) Body height 67 [in_i] 67 [in_i] ETHAN ([facility]) Body weight 5622.4 [oz_av] 5622.4 [oz_av] ATHEN A ([facility]) Systolic blood pressure 119 mm[Hg] 119 mm[Hg] A THENA ([facility]) Body weight 5622.4 [oz_av] 5622.4 [oz_av] ATHEN A ([facility]) Diastolic blood pressure 84 mm[Hg] 84 mm[Hg] ETHAN ([facility]) Body height 67 [in_i] 67 [in_i] ETHAN ([facility]) Body mass index (BMI) [Ratio] 55 kg/m2 55 kg/ m2 ETHAN ([facility]) Systolic blood pressure 119 mm[Hg] 119 mm[Hg] A THENA ([facility]) Body weight 5622.4 [oz_av] 5622.4 [oz_av] ATHEN A ([facility]) Diastolic blood pressure 84 mm[Hg] 84 mm[Hg] ETHAN ([facility]) Body mass index (BMI) [Ratio] 55 kg/m2 55 kg/ m2 ETHAN ([facility]) Body height 67 [in_i] 67 [in_i] ETHAN ([facility]) Systolic blood pressure 119 mm[Hg] 119 mm[Hg] [facility] Body height 67 [in_i] 67 [in_i] ETHAN ([facility]) Body mass index (BMI) [Ratio] 55 kg/m2 55 kg/ m2 ETHAN ([facility]) Systolic blood pressure 119 mm[Hg] 119 mm[Hg] [facility] Body weight 5622.4 [oz_av] 5622.4 [oz_av] ATHEN A ([facility]) Diastolic blood pressure 84 mm[Hg] 84 mm[Hg] ETHAN ([facility]) Diastolic blood pressure 84 mm[Hg] 84 mm[Hg] ETHAN ([facility]) Body height 67 [in_i] 67 [in_i] ETHAN ([facility]) Body mass index (BMI) [Ratio] 55 kg/m2 55 kg/ m2 ETHAN ([facility]) Systolic blood pressure 119 mm[Hg] 119 mm[Hg] [facility] Body weight 5622.4 [oz_av] 5622.4 [oz_av] ATHEN A ([facility]) Diastolic blood pressure 84 mm[Hg] 84 mm[Hg] ETHAN ([facility]) Body height 67 [in_i] 67 [in_i] ETHAN ([facility]) Body mass index (BMI) [Ratio] 55 kg/m2 55 kg/ m2 ETHAN ([facility]) Systolic blood pressure 119 mm[Hg] 119 mm[Hg] A THENA ([facility]) Body weight 5622.4 [oz_av] 5622.4 [oz_av] ATHEN A ([facility]) Diastolic blood pressure 84 mm[Hg] 84 mm[Hg] ETHAN ([facility]) Body height 67 [in_i] 67 [in_i] ETHAN ([facility]) Body mass index (BMI) [Ratio] 55 kg/m2 55 kg/ m2 ETHAN ([facility]) Systolic blood pressure 119 mm[Hg] 119 mm[Hg] [facility] Body weight 5622.4 [oz_av] 5622.4 [oz_av] ATHEN A ([facility]) Diastolic blood pressure 84 mm[Hg] 84 mm[Hg] ETHAN ([facility]) Body height 67 [in_i] 67 [in_i] ETHAN ([facility]) Body mass index (BMI) [Ratio] 55 kg/m2 55 kg/ m2 ETHAN ([facility]) Systolic blood pressure 119 mm[Hg] 119 mm[Hg] A THENA ([facility]) Body weight 5622.4 [oz_av] 5622.4 [oz_av] ATHEN A ([facility]) Diastolic blood pressure 84 mm[Hg] 84 mm[Hg] ETHAN ([facility]) Body height 67 [in_i] 67 [in_i] ETHAN ([facility]) Body mass index (BMI) [Ratio] 55 kg/m2 55 kg/ m2 ETHAN ([facility]) Systolic blood pressure 119 mm[Hg] 119 mm[Hg] A [facility] ([facility]) Body weight 5622.4 [oz_av] 5622.4 [oz_av] ATHEN A ([facility]) Body height 67 [in_i] 67 [in_i] ETHAN ([facility]) Body height 67 [in_i] 67 [in_i] ETHAN ([facility]) Body height 67 [in_i] 67 [in_i] ETHAN ([facility]) Body height 67 [in_i] 67 [in_i] ETHAN ([facility]) Body height 67 [in_i] 67 [in_i] ETHAN ([facility]) Body height 67 [in_i] 67 [in_i] ETHAN ([facility]) Body height 67 [in_i] 67 [in_i] ETHAN ([facility]) Body height 67 [in_i] 67 [in_i] ETHAN ([facility]) Body height 67 [in_i] 67 [in_i] ETHAN ([facility]) Body height 67 [in_i] 67 [in_i] ETHAN ([facility]) Body height 67 [in_i] 67 [in_i] ETHAN ([facility]) Body height 67 [in_i] 67 [in_i] ETHAN ([facility]) Body temperature 97.1 [degF] 97.1 [degF] MEDENT ([facility]) Body height 68 [in_i] 68 [in_i] MEDENT ([facility]) 5'8" Body weight 358.00 [lb_av] 358.00 [lb_av] MEDEN T ([facility]) Body mass index (BMI) [Ratio] 54.4 kg/m2 54.4 k g/m2 MEDENT ([facility]) Body height 67 [in_i] 67 [in_i] ETHAN ([facility]) Body mass index (BMI) [Ratio] 56.1 kg/m2 56.1 k g/m2 ETHAN ([facility]) Systolic blood pressure 145 mm[Hg] 145 mm[Hg] [facility] Body weight 5728 [oz_av] 5728 [oz_av] ETHAN ([facility]) Diastolic blood pressure 92 mm[Hg] 92 mm[Hg] ETHAN ([facility]) Body mass index (BMI) [Ratio] 56.1 kg/m2 56.1 k g/m2 ETHAN ([facility]) Body weight 5728 [oz_av] 5728 [oz_av] ETHAN ([facility]) Systolic blood pressure 145 mm[Hg] 145 mm[Hg] [facility] Diastolic blood pressure 92 mm[Hg] 92 mm[Hg] ETHAN ([facility]) Body height 67 [in_i] 67 [in_i] ETHAN ([facility]) Body height 67 [in_i] 67 [in_i] ETHAN ([facility]) Systolic blood pressure 145 mm[Hg] 145 mm[facility]Hg] [facility] Body mass index (BMI) [Ratio] 56.1 kg/m2 56.1 k g/m2 ETHAN ([facility]) Diastolic blood pressure 92 mm[Hg] 92 mm[Hg] ETHAN ([facility]) Body weight 5728 [oz_av] 5728 [oz_av] ETHAN ([facility]) Diastolic blood pressure 92 mm[Hg] 92 mm[Hg] EHTAN ([facility]) Body height 67 [in_i] 67 [in_i] ETHAN ([facility]) Body mass index (BMI) [Ratio] 56.1 kg/m2 56.1 k g/m2 ETHAN ([facility]) Systolic blood pressure 145 mm[Hg] 145 mm[Hg] A THENA ([facility]) Body weight 5728 [oz_av] 5728 [oz_av] ETHAN ([facility]) Diastolic blood pressure 92 mm[Hg] 92 mm[Hg] ETHAN ([facility]) Body height 67 [in_i] 67 [in_i] ETHAN ([facility]) Body mass index (BMI) [Ratio] 56.1 kg/m2 56.1 k g/m2 ETHAN ([facility]) Systolic blood pressure 145 mm[Hg] 145 mm[facility]Hg] [facility] Body weight 5728 [oz_av] 5728 [oz_av] ETHAN ([facility]) Body height 67 [in_i] 67 [in_i] ETHAN ([facility]) Systolic blood pressure 145 mm[Hg] 145 mm[Hg] A THENA ([facility]) Body weight 5728 [oz_av] 5728 [oz_av] ETHAN ([facility]) Diastolic blood pressure 92 mm[Hg] 92 mm[Hg] ETHAN ([facility]) Body mass index (BMI) [Ratio] 56.1 kg/m2 56.1 k g/m2 ETHAN ([facility]) Diastolic blood pressure 92 mm[Hg] 92 mm[Hg] ETHAN ([facility]) Body height 67 [in_i] 67 [in_i] ETHAN ([facility]) Body mass index (BMI) [Ratio] 56.1 kg/m2 56.1 k g/m2 ETHAN ([facility]) Systolic blood pressure 145 mm[Hg] 145 mm[Hg] A THENA ([facility]) Body weight 5728 [oz_av] 5728 [oz_av] ETHAN ([facility]) Diastolic blood pressure 92 mm[Hg] 92 mm[Hg] ETHAN ([facility]) Body height 67 [in_i] 67 [in_i] ETHAN ([facility]) Body mass index (BMI) [Ratio] 56.1 kg/m2 56.1 k g/m2 ETHAN ([facility]) Systolic blood pressure 145 mm[Hg] 145 mm[Hg] A THENA ([facility]) Body weight 5728 [oz_av] 5728 [oz_av] ETHAN ([facility]) Diastolic blood pressure 92 mm[Hg] 92 mm[Hg] ETHAN ([facility]) Body height 67 [in_i] 67 [in_i] ETHAN ([facility]) Body mass index (BMI) [Ratio] 56.1 kg/m2 56.1 k g/m2 ETHAN ([facility]) Systolic blood pressure 145 mm[Hg] 145 mm[facility]Hg] [facility] Body weight 5728 [oz_av] 5728 [oz_av] ETHAN ([facility]) Diastolic blood pressure 92 mm[Hg] 92 mm[Hg] ETHAN ([facility]) Body height 67 [in_i] 67 [in_i] ETHAN ([facility]) Body mass index (BMI) [Ratio] 56.1 kg/m2 56.1 k g/m2 ETHAN ([facility]) Systolic blood pressure 145 mm[Hg] 145 mm[Hg] A THENA ([facility]) Body weight 5728 [oz_av] 5728 [oz_av] ETHAN ([facility]) Body weight 5728 [oz_av] 5728 [oz_av] ETHAN ([facility]) Systolic blood pressure 145 mm[Hg] 145 mm[facility]Hg] [facility] Diastolic blood pressure 92 mm[Hg] 92 mm[Hg] ETHAN ([facility]) Body height 67 [in_i] 67 [in_i] ETHAN ([facility]) Body mass index (BMI) [Ratio] 56.1 kg/m2 56.1 k g/m2 ETHAN ([facility]) Body height 67 [in_i] 67 [in_i] ETHAN ([facility]) Body mass index (BMI) [Ratio] 56.1 kg/m2 56.1 k g/m2 ETHAN ([facility]) Systolic blood pressure 145 mm[Hg] 145 mm[Hg] A THENA ([facility]) Body weight 5728 [oz_av] 5728 [oz_av] ETHAN ([facility]) Diastolic blood pressure 92 mm[Hg] 92 mm[Hg] ETHAN ([facility]) Diastolic blood pressure 92 mm[Hg] 92 mm[Hg] ETHAN ([facility]) Body height 67 [in_i] 67 [in_i] ETHAN ([facility]) Body mass index (BMI) [Ratio] 56.1 kg/m2 56.1 k g/m2 ETHAN ([facility]) Systolic blood pressure 145 mm[Hg] 145 mm[Hg] A THENA ([facility]) Body weight 5728 [oz_av] 5728 [oz_av] ETHAN ([facility]) Diastolic blood pressure 92 mm[Hg] 92 mm[Hg] ETHAN ([facility]) Body height 67 [in_i] 67 [in_i] ETHAN ([facility]) Body mass index (BMI) [Ratio] 56.1 kg/m2 56.1 k g/m2 ETHAN ([facility]) Systolic blood pressure 145 mm[Hg] 145 mm[Hg] A THENA ([facility]) Body weight 5728 [oz_av] 5728 [oz_av] ETHAN ([facility]) Body height 67 [in_i] 67 [in_i] ETHAN ([facility]) Body height 67 [in_i] 67 [in_i] ETHAN ([facility]) Body height 67 [in_i] 67 [in_i] ETHAN ([facility]) Body height 67 [in_i] 67 [in_i] ETHAN ([facility]) Body height 67 [in_i] 67 [in_i] ETHAN ([facility]) Body height 67 [in_i] 67 [in_i] ETHAN ([facility]) Body height 67 [in_i] 67 [in_i] ETHAN ([facility]) Body height 67 [in_i] 67 [in_i] ETHAN ([facility]) Body height 67 [in_i] 67 [in_i] ETHAN ([facility]) Body height 67 [in_i] 67 [in_i] ETHAN ([facility]) Body height 67 [in_i] 67 [in_i] ETHAN ([facility]) Body height 67 [in_i] 67 [in_i] ETHAN ([facility]) Body height 67 [in_i] 67 [in_i] ETHAN ([facility]) Body height 67 [in_i] 67 [in_i] ETHAN ([facility]) Body height 67 [in_i] 67 [in_i] ETHAN ([facility]) Diastolic blood pressure 86 mm[Hg] 86 mm[Hg] ETHAN ([facility]) Body mass index (BMI) [Ratio] 54.98 kg/m2 54.98 kg/m2 ETHAN ([facility]) Body height 67 [in_i] 67 [in_i] ETHAN ([facility]) Systolic blood pressure 133 mm[Hg] 133 mm[Hg] A THENA ([facility]) Body weight 5596.8 [oz_av] 5596.8 [oz_av] ATHEN A ([facility]) Body mass index (BMI) [Ratio] 54.98 kg/m2 54.98 kg/m2 ETHAN ([facility]) Body height 67 [in_i] 67 [in_i] ETHAN ([facility]) Diastolic blood pressure 86 mm[Hg] 86 mm[Hg] ETHAN ([facility]) Systolic blood pressure 133 mm[Hg] 133 mm[Hg] A THENA ([facility]) Body weight 5596.8 [oz_av] 5596.8 [oz_av] ATHEN A ([facility]) Diastolic blood pressure 86 mm[Hg] 86 mm[Hg] ETHAN ([facility]) Body height 67 [in_i] 67 [in_i] ETHAN ([facility]) Body mass index (BMI) [Ratio] 54.98 kg/m2 54.98 kg/m2 ETHAN ([facility]) Systolic blood pressure 133 mm[Hg] 133 mm[facility]Hg] [facility] Body weight 5596.8 [oz_av] 5596.8 [oz_av] ATHEN A ([facility]) Systolic blood pressure 133 mm[Hg] 133 mm[Hg] [facility] Body weight 5596.8 [oz_av] 5596.8 [oz_av] ATHEN A ([facility]) Diastolic blood pressure 86 mm[Hg] 86 mm[Hg] ETHAN ([facility]) Body height 67 [in_i] 67 [in_i] ETHAN ([facility]) Body mass index (BMI) [Ratio] 54.98 kg/m2 54.98 kg/m2 ETHAN ([facility]) Diastolic blood pressure 86 mm[Hg] 86 mm[Hg] ETHAN ([facility]) Body height 67 [in_i] 67 [in_i] ETHAN ([facility]) Body mass index (BMI) [Ratio] 54.98 kg/m2 54.98 kg/m2 ETHAN ([facility]) Systolic blood pressure 133 mm[Hg] 133 mm[Hg] [facility] Body weight 5596.8 [oz_av] 5596.8 [oz_av] ATHEN A ([facility]) Diastolic blood pressure 86 mm[Hg] 86 mm[Hg] ETHAN ([facility]) Body height 67 [in_i] 67 [in_i] ETHAN ([facility]) Body mass index (BMI) [Ratio] 54.98 kg/m2 54.98 kg/m2 ETHAN ([facility]) Systolic blood pressure 133 mm[Hg] 133 mm[Hg] A [facility] ([facility]) Body weight 5596.8 [oz_av] 5596.8 [oz_av] ATHEN A ([facility]) Diastolic blood pressure 86 mm[Hg] 86 mm[Hg] ETHAN ([facility]) Body height 67 [in_i] 67 [in_i] ETHAN ([facility]) Body mass index (BMI) [Ratio] 54.98 kg/m2 54.98 kg/m2 ETHAN ([facility]) Systolic blood pressure 133 mm[Hg] 133 mm[Hg] [facility] Body weight 5596.8 [oz_av] 5596.8 [oz_av] ATHEN A ([facility]) Diastolic blood pressure 86 mm[Hg] 86 mm[Hg] ETHAN ([facility]) Body height 67 [in_i] 67 [in_i] ETHAN ([facility]) Body mass index (BMI) [Ratio] 54.98 kg/m2 54.98 kg/m2 ETHAN ([facility]) Systolic blood pressure 133 mm[Hg] 133 mm[Hg] [facility] Body weight 5596.8 [oz_av] 5596.8 [oz_av] ATHEN A ([facility]) Diastolic blood pressure 86 mm[Hg] 86 mm[Hg] ETHAN ([facility]) Body height 67 [in_i] 67 [in_i] ETHAN ([facility]) Body mass index (BMI) [Ratio] 54.98 kg/m2 54.98 kg/m2 ETHAN ([facility]) Systolic blood pressure 133 mm[Hg] 133 mm[Hg] A THENA ([facility]) Body weight 5596.8 [oz_av] 5596.8 [oz_av] ATHEN A ([facility]) Diastolic blood pressure 86 mm[Hg] 86 mm[Hg] ETHAN ([facility]) Body height 67 [in_i] 67 [in_i] ETHAN ([facility]) Body mass index (BMI) [Ratio] 54.98 kg/m2 54.98 kg/m2 ETHAN ([facility]) Systolic blood pressure 133 mm[Hg] 133 mm[Hg] [facility] Body weight 5596.8 [oz_av] 5596.8 [oz_av] ATHEN A ([facility]) Diastolic blood pressure 86 mm[Hg] 86 mm[Hg] ETHAN ([facility]) Body height 67 [in_i] 67 [in_i] ETHAN ([facility]) Body mass index (BMI) [Ratio] 54.98 kg/m2 54.98 kg/m2 ETHAN ([facility]) Systolic blood pressure 133 mm[Hg] 133 mm[Hg] [facility] Body weight 5596.8 [oz_av] 5596.8 [oz_av] ATHEN A ([facility]) Diastolic blood pressure 86 mm[Hg] 86 mm[Hg] ETHAN ([facility]) Body height 67 [in_i] 67 [in_i] ETHAN ([facility]) Body mass index (BMI) [Ratio] 54.98 kg/m2 54.98 kg/m2 ETHAN ([facility]) Systolic blood pressure 133 mm[Hg] 133 mm[Hg] [facility] Body weight 5596.8 [oz_av] 5596.8 [oz_av] ATHEN A ([facility]) Diastolic blood pressure 92 mm[Hg] 92 mm[Hg] ETHAN ([facility]) Body height 67 [in_i] 67 [in_i] ETHAN ([facility]) Systolic blood pressure 144 mm[Hg] 144 mm[Hg] A [facility] ([facility]) Body mass index (BMI) [Ratio] 57.78 kg/m2 57.78 kg/m2 ETHAN ([facility]) Body weight 5881.6 [oz_av] 5881.6 [oz_av] ATHEN A ([facility]) Diastolic blood pressure 92 mm[Hg] 92 mm[Hg] ETHAN ([facility]) Body mass index (BMI) [Ratio] 57.78 kg/m2 57.78 kg/m2 ETHAN ([facility]) Body height 67 [in_i] 67 [in_i] ETHAN ([facility]) Systolic blood pressure 144 mm[Hg] 144 mm[Hg] A [facility] ([facility]) Body weight 5881.6 [oz_av] 5881.6 [oz_av] ATHEN A ([facility]) Body weight 5881.6 [oz_av] 5881.6 [oz_av] ATHEN A ([facility]) Body height 67 [in_i] 67 [in_i] ETHAN ([facility]) Diastolic blood pressure 92 mm[Hg] 92 mm[Hg] ETHAN ([facility]) Body mass index (BMI) [Ratio] 57.78 kg/m2 57.78 kg/m2 ETHAN ([facility]) Systolic blood pressure 144 mm[Hg] 144 mm[Hg] A THENA ([facility]) Diastolic blood pressure 92 mm[Hg] 92 mm[Hg] ETHAN ([facility]) Body height 67 [in_i] 67 [in_i] ETHAN ([facility]) Body mass index (BMI) [Ratio] 57.78 kg/m2 57.78 kg/m2 ETHAN ([facility]) Systolic blood pressure 144 mm[Hg] 144 mm[Hg] A THENA ([facility]) Body weight 5881.6 [oz_av] 5881.6 [oz_av] ATHEN A ([facility]) Body mass index (BMI) [Ratio] 57.78 kg/m2 57.78 kg/m2 ETHAN ([facility]) Systolic blood pressure 144 mm[Hg] 144 mm[Hg] A THENA ([facility]) Body weight 5881.6 [oz_av] 5881.6 [oz_av] ATHEN A ([facility]) Diastolic blood pressure 92 mm[Hg] 92 mm[Hg] ETHAN ([facility]) Body height 67 [in_i] 67 [in_i] ETHAN ([facility]) Body weight 5881.6 [oz_av] 5881.6 [oz_av] ATHEN A ([facility]) Diastolic blood pressure 92 mm[Hg] 92 mm[Hg] ETHAN ([facility]) Body height 67 [in_i] 67 [in_i] ETHAN ([facility]) Body mass index (BMI) [Ratio] 57.78 kg/m2 57.78 kg/m2 ETHAN ([facility]) Systolic blood pressure 144 mm[Hg] 144 mm[Hg] A THENA ([facility]) Diastolic blood pressure 92 mm[Hg] 92 mm[Hg] ETHAN ([facility]) Body height 67 [in_i] 67 [in_i] ETHAN ([facility]) Body mass index (BMI) [Ratio] 57.78 kg/m2 57.78 kg/m2 ETHAN ([facility]) Systolic blood pressure 144 mm[Hg] 144 mm[Hg] A THENA ([facility]) Body weight 5881.6 [oz_av] 5881.6 [oz_av] ATHEN A ([facility]) Body height 67 [in_i] 67 [in_i] ETHAN ([facility]) Diastolic blood pressure 92 mm[Hg] 92 mm[Hg] ETHAN ([facility]) Body mass index (BMI) [Ratio] 57.78 kg/m2 57.78 kg/m2 ETHAN ([facility]) Systolic blood pressure 144 mm[Hg] 144 mm[Hg] A THENA ([facility]) Body weight 5881.6 [oz_av] 5881.6 [oz_av] ATHEN A ([facility]) Diastolic blood pressure 92 mm[Hg] 92 mm[Hg] ETHAN ([facility]) Body height 67 [in_i] 67 [in_i] ETHAN ([facility]) Body mass index (BMI) [Ratio] 57.78 kg/m2 57.78 kg/m2 ETHAN ([facility]) Systolic blood pressure 144 mm[Hg] 144 mm[Hg] A THENA ([facility]) Body weight 5881.6 [oz_av] 5881.6 [oz_av] ATHEN A ([facility]) Body height 67 [in_i] 67 [in_i] ETHAN ([facility]) Diastolic blood pressure 92 mm[Hg] 92 mm[Hg] ETHAN ([facility]) Body mass index (BMI) [Ratio] 57.78 kg/m2 57.78 kg/m2 ETHAN ([facility]) Systolic blood pressure 144 mm[Hg] 144 mm[Hg] A MAXINE ([facility]) Body weight 5881.6 [oz_av] 5881.6 [oz_av] PATRICIA A ([facility]) Diastolic blood pressure 92 mm[Hg] 92 mm[Hg] ETHAN ([facility]) Body height 67 [in_i] 67 [in_i] ETHAN ([facility]) Body mass index (BMI) [Ratio] 57.78 kg/m2 57.78 kg/m2 ETHAN ([facility]) Systolic blood pressure 144 mm[Hg] 144 mm[Hg] A MAXINE ([facility]) Body weight 5881.6 [oz_av] 5881.6 [oz_av] PATRICIA A ([facility]) Diastolic blood pressure 92 mm[Hg] 92 mm[Hg] ETHAN ([facility]) Body height 67 [in_i] 67 [in_i] ETHAN ([facility]) Body mass index (BMI) [Ratio] 57.78 kg/m2 57.78 kg/m2 ETHAN ([facility]) Systolic blood pressure 144 mm[Hg] 144 mm[Hg] A MAXINE ([facility]) Body weight 5881.6 [oz_av] 5881.6 [oz_av] PATRICIA Reyes ([facility]) ID Date Data Source [id number] 06/26/2020 06:11:32 PM EDT [facility] Name Value Range Interpretation Code Description Data Source(s) WEIGHT RECORDED 345.9 lb 345.9 lb [facility] Body height Measured 67.32 in 67.32 in [facility] Patient Treatment Plan of Care Planned Activity Planned Date Details Description Data Source (s) canagliflozin 100 MG Oral Tablet [Invokana] 07/12/2020 12:00:00 AM EDT [facility] sitagliptin 100 MG Oral Tablet 07/09/2020 12:00:00 AM EDT [facility] Metformin hydrochloride 1000 MG Oral Tablet 07/09/2020 12:00:00 AM EDT [facility] Insulin Glargine (Basaglar KwikPen) 100 UNIT/ML SOPN 021 12:00:00 AM [facility] BD Pen Needle Mini U/F 31G X 5 MM (Insulin Pen Needle) 06/25/2020 12:00:00 AM [facility] ospital Basaglar KwikPen 100 UNIT/ML Subcutaneou s Solution Pen-injector (insulin glargine) 06/25/2020 12:00:00 AM [facility] Lisinopril 10 MG Oral Tablet 06/22/2020 12:00:00 AM [facility] ferrous sulfate 325 MG Oral Tablet 06/22/2020 12:00:00 AM [facility] sitagliptin 50 MG Oral Tablet [Januvia] 06/22/2020 12:00:00 AM [facility] ferrous sulfate 325 MG Oral Tablet 06/22/2020 12:00:00 AM [facility] Lisinopril 10 MG Oral Tablet 06/22/2020 12:00:00 AM [facility] Hydrochlorothiazide 12.5 MG Oral Capsule 06/20/2020 12:00:00 AM [facility] Metformin hydrochloride 1000 MG Oral Tablet 06/20/2020 12:00:00 AM [facility] Hydrochlorothiazide 12.5 MG Oral Capsule 06/20/2020 12:00:00 AM [facility] pregabalin 100 MG Oral Capsule 06/09/2020 12:00:00 AM [facility] pregabalin 100 MG Oral Capsule 06/09/2020 12:00:00 AM [facility] Omeprazole 20 MG Delayed Release Oral Capsule 05/25/2020 12:00:00 A M [facility] Omeprazole 20 MG Delayed Release Oral Capsule 05/25/2020 12:00:00 A M [facility] Glyburide 5 MG Oral Tablet 05/25/2020 12:00:00 AM [facility] Naproxen 500 MG Oral Tablet 05/23/2020 12:00:00 AM [facility] 0.5 ML dulaglutide 3 MG/ML Auto-Injector [Trulicity] ETHAN ([facility]) 0.5 ML dulaglutide 1.5 MG/ML Auto-Injector [Trulicity] ETHAN ([facility]) Sulfamethoxazole 800 MG / Trimethoprim 160 MG Oral Tablet ETHAN ([facility]) silver sulfadiazine 10 MG/ML Topical Cream [SSD] ETHAN ([facility]) Sertraline 50 MG Oral Tablet ETHAN ([facility]) Sertraline 25 MG Oral Tablet ETHAN ([facility]) Sertraline 100 MG Oral Tablet ETHAN ([facility]) pregabalin 50 MG Oral Capsule ETHAN ([facility]) Phenazopyridine hydrochloride 100 MG Oral Tablet ETHAN ([facility]) Omeprazole 40 MG Delayed Release Oral Capsule ETHAN ([facility]) NITROFURANTOIN, MACROCRYSTALS 25 MG / Ni trofurantoin, Monohydrate 75 MG Oral Capsule ETHAN ([facility]) Naproxen 500 MG Oral Tablet ETHAN ([facility]) Metronidazole 500 MG Oral Tablet ETHAN ([facility]) Metronidazole 0.0075 MG/MG Vaginal Gel ETHAN ([facility]) Metoclopramide 10 MG Oral Tablet ETHAN ([facility]) meloxicam 15 MG Oral Tablet ETHAN ([facility]) Lisinopril 5 MG Oral Tablet ETHAN ([facility]) Lisinopril 10 MG Oral Tablet ETHAN ([facility]) Levofloxacin 500 MG Oral Tablet ETHAN ([facility]) Levofloxacin 250 MG Oral Tablet ETHAN ([facility]) sitagliptin 50 MG Oral Tablet [Januvia] ETHAN ([facility]) canagliflozin 100 MG [facility] Glyburide 5 MG Oral Tablet A THENA ([facility]) Simethicone 180 MG Oral Capsule ETHAN ([facility]) gabapentin 800 MG Oral Tablet ETHAN ([facility]) gabapentin 600 MG Oral Tablet ETHAN ([facility]) Fluoxetine 10 MG Oral Capsule ETHAN ([facility]) Fluconazole 150 MG Oral Tablet ETHAN ([facility]) ferrous sulfate 325 MG Oral Tablet ETHAN ([facility]) Lactulose 667 MG/ML Oral Solution [Enulose] ETHAN ([facility]) Dicyclomine Hydrochloride 10 MG Oral Capsule ETHAN ([facility]) Dexamethasone 1 MG Oral Tablet ETHAN ([facility]) Clindamycin 300 MG Oral Capsule ETHAN ([facility]) Ciprofloxacin 250 MG Oral Tablet ETHAN ([facility]) Ciprofloxacin 3 MG/ML Ophthalmic Solution ETHAN ([facility]) Cephalexin 500 MG Oral Capsule ETHAN ([facility]) cefdinir 300 MG Oral Capsule ETHAN ([facility]) albuterol sulfate HFA 90 mcg/actuation a erosol inhaler INHALE 2 PUFFS BY MOUTH EVERY 4 HOURS NEEDED FOR WHEEZING OR SHORTNESS OF BREATH ETHAN ([facility]) Albuterol 0.83 MG/ML Inhalant Solution ETHAN ([facility]) Acetaminophen 500 MG Oral Tablet ETHAN ([facility]) 0.5 ML dulaglutide 3 MG/ML Auto-Injector [Trulicity] ETHAN ([facility]) 0.5 ML dulaglutide 1.5 MG/ML Auto-Injector [Trulicity] ETHAN ([facility]) Sulfamethoxazole 800 MG / Trimethoprim 160 MG Oral Tablet ETHAN ([facility]) silver sulfadiazine 10 MG/ML Topical Cream [SSD] ETHAN ([facility]) Sertraline 50 MG Oral Tablet ETHAN ([facility]) Sertraline 25 MG Oral Tablet ETHAN ([facility]) Sertraline 100 MG Oral Tablet ETHAN ([facility]) pregabalin 50 MG Oral Capsule ETHAN ([facility]) Omeprazole 40 MG Delayed Release Oral Capsule ETHAN ([facility]) Naproxen 500 MG Oral Tablet ETHAN ([facility]) Metronidazole 500 MG Oral Tablet ETHAN ([facility]) Metronidazole 0.0075 MG/MG Vaginal Gel ETHAN ([facility]) Metoclopramide 10 MG Oral Tablet ETHAN ([facility]) meloxicam 15 MG Oral Tablet ETHAN ([facility]) Lisinopril 5 MG Oral Tablet ETHAN ([facility]) Levofloxacin 250 MG Oral Tablet ETHAN ([facility]) sitagliptin 50 MG Oral Tablet [Januvia] ETHAN ([facility]) Glyburide 5 MG Oral Tablet A THENA ([facility]) Simethicone 180 MG Oral Capsule ETHAN ([facility]) gabapentin 800 MG Oral Tablet ETHAN ([facility]) gabapentin 600 MG Oral Tablet ETHAN ([facility]) Fluoxetine 10 MG Oral Capsule ETHAN ([facility]) Lactulose 667 MG/ML Oral Solution [Enulose] ETHAN ([facility]) Dicyclomine Hydrochloride 10 MG Oral Capsule ETHAN ([facility]) Dexamethasone 1 MG Oral Tablet ETHAN ([facility]) Clindamycin 300 MG Oral Capsule ETHAN ([facility]) Ciprofloxacin 250 MG Oral Tablet ETHAN ([facility]) Ciprofloxacin 3 MG/ML Ophthalmic Solution ETHAN ([facility]) Cephalexin 500 MG Oral Capsule ETHAN ([facility]) cefdinir 300 MG Oral Capsule ETHAN ([facility]) albuterol sulfate HFA 90 mcg/actuation a erosol inhaler INHALE 2 PUFFS BY MOUTH EVERY 4 HOURS NEEDED FOR WHEEZING OR SHORTNESS OF BREATH ETHAN ([facility]) Albuterol 0.83 MG/ML Inhalant Solution ETHAN ([facility]) Acetaminophen 500 MG Oral Tablet ETHAN ([facility]) 0.5 ML dulaglutide 3 MG/ML Auto-Injector [Trulicity] ETHAN ([facility]) 0.5 ML dulaglutide 1.5 MG/ML Auto-Injector [Trulicity] ETHAN ([facility]) Sulfamethoxazole 800 MG / Trimethoprim 160 MG Oral Tablet ETHAN ([facility]) silver sulfadiazine 10 MG/ML Topical Cream [facility]] [facility] Sertraline 50 MG Oral Tablet ETHAN ([facility]) Sertraline 25 MG Oral Tablet ETHAN ([facility]) Sertraline 100 MG Oral Tablet ETHAN ([facility]) pregabalin 50 MG Oral Capsule ETHNA ([facility]) sitagliptin 50 MG Oral Tablet [Januvia] ETHAN ([facility]) Glyburide 5 MG Oral Tablet A THENA ([facility]) Simethicone 180 MG Oral Capsule ETHAN ([facility]) gabapentin 800 MG Oral Tablet ETHAN ([facility]) gabapentin 600 MG Oral Tablet ETHAN ([facility]) Fluoxetine 10 MG Oral Capsule ETHAN ([facility]) Lactulose 667 MG/ML Oral Solution [Enulose] ETHAN ([facility]) Dicyclomine Hydrochloride 10 MG Oral Capsule ETHAN ([facility]) Dexamethasone 1 MG Oral Tablet ETHAN ([facility]) Clindamycin 300 MG Oral Capsule ETHAN ([facility]) Ciprofloxacin 250 MG Oral Tablet ETHAN ([facility]) Ciprofloxacin 3 MG/ML Ophthalmic Solution BACKUS ([facility]) cefdinir 300 MG Oral Capsule ETHNA ([facility]) albuterol sulfate HFA 90 mcg/actuation a erosol inhaler INHALE 2 PUFFS BY MOUTH EVERY 4 HOURS NEEDED FOR WHEEZING OR SHORTNESS OF BREATH ETHAN ([facility]) Albuterol 0.83 MG/ML Inhalant Solution ETHAN ([facility]) Acetaminophen 500 MG Oral Tablet ETHAN ([facility]) 0.5 ML dulaglutide 1.5 MG/ML Auto-Injector [facility]] [facility] Sulfamethoxazole 800 MG / Trimethoprim 160 MG Oral Tablet ETHAN ([facility]) silver sulfadiazine 10 MG/ML Topical Cream [SSD] [facility] Sertraline 50 MG Oral Tablet ETHAN ([facility]) Sertraline 25 MG Oral Tablet ETHAN ([facility]) Sertraline 100 MG Oral Tablet ETHAN ([facility]) Omeprazole 40 MG Delayed Release Oral Capsule ETHAN ([facility]) NITROFURANTOIN, MACROCRYSTALS 25 MG / Ni trofurantoin, Monohydrate 75 MG Oral Capsule ETHAN ([facility]) Metronidazole 500 MG Oral Tablet ETHAN ([facility]) Metronidazole 0.0075 MG/MG Vaginal Gel ETHAN ([facility]) Metoclopramide 10 MG Oral Tablet ETHAN ([facility]) meloxicam 15 MG Oral Tablet ETHAN ([facility]) Lisinopril 5 MG Oral Tablet ETHAN ([facility]) Levofloxacin 250 MG Oral Tablet ETHAN ([facility]) Simethicone 180 MG Oral Capsule ETHAN ([facility]) gabapentin 800 MG Oral Tablet ETHAN ([facility]) gabapentin 600 MG Oral Tablet ETHAN ([facility]) Fluoxetine 10 MG Oral Capsule ETHAN ([facility]) Lactulose 667 MG/ML Oral Solution [Enulose] ETHAN ([facility]) Dicyclomine Hydrochloride 10 MG Oral Capsule ETHAN ([facility]) Ciprofloxacin 250 MG Oral Tablet ETHAN ([facility]) Ciprofloxacin 3 MG/ML Ophthalmic Solution ETHAN ([facility]) cefdinir 300 MG Oral Capsule ETHAN ([facility]) albuterol sulfate HFA 90 mcg/actuation a erosol inhaler INHALE 2 PUFFS BY MOUTH EVERY 4 HOURS NEEDED FOR WHEEZING OR SHORTNESS OF BREATH ETHAN ([facility]) Albuterol 0.83 MG/ML Inhalant Solution ETHAN ([facility]) Acetaminophen 500 MG Oral Tablet ETHAN ([facility]) 0.5 ML dulaglutide 1.5 MG/ML Auto-Injector [[facility]] [facility] Sulfamethoxazole 800 MG / Trimethoprim 160 MG Oral Tablet ETHAN ([facility]) silver sulfadiazine 10 MG/ML Topical Cream [SSD] [facility] Sertraline 50 MG Oral Tablet ETHAN ([facility]) Sertraline 25 MG Oral Tablet ETHAN ([facility]) Sertraline 100 MG Oral Tablet ETHAN ([facility]) Omeprazole 40 MG Delayed Release Oral Capsule ETHAN ([facility]) NITROFURANTOIN, MACROCRYSTALS 25 MG / Ni trofurantoin, Monohydrate 75 MG Oral Capsule ETHAN ([facility]) Metronidazole 500 MG Oral Tablet ETHAN ([facility]) Metronidazole 0.0075 MG/MG Vaginal Gel ETHAN ([facility]) Metoclopramide 10 MG Oral Tablet ETHAN ([facility]) meloxicam 15 MG Oral Tablet ETHAN ([facility]) Lisinopril 5 MG Oral Tablet ETHAN ([facility]) Levofloxacin 250 MG Oral Tablet ETHAN ([facility]) Simethicone 180 MG Oral Capsule ETHAN ([facility]) gabapentin 800 MG Oral Tablet ETHAN ([facility]) gabapentin 600 MG Oral Tablet ETHAN ([facility]) Fluoxetine 10 MG Oral Capsule ETHAN ([facility]) ferrous sulfate 325 MG Oral Tablet ETHAN ([facility]) Lactulose 667 MG/ML Oral Solution [Enulose] ETHAN ([facility]) Dicyclomine Hydrochloride 10 MG Oral Capsule ETHAN ([facility]) Ciprofloxacin 250 MG Oral Tablet ETHAN ([facility]) Ciprofloxacin 3 MG/ML Ophthalmic Solution ETHAN ([facility]) cefdinir 300 MG Oral Capsule ETHAN ([facility]) albuterol sulfate HFA 90 mcg/actuation a erosol inhaler INHALE 2 PUFFS BY MOUTH EVERY 4 HOURS NEEDED FOR WHEEZING OR SHORTNESS OF BREATH ETHAN ([facility]) Albuterol 0.83 MG/ML Inhalant Solution ETHAN ([facility]) Acetaminophen 500 MG Oral Tablet ETHAN ([facility]) 0.5 ML dulaglutide 1.5 MG/ML Auto-Injector [Trulicity] ETHAN ([facility]) Sulfamethoxazole 800 MG / Trimethoprim 160 MG Oral Tablet ETHAN ([facility]) silver sulfadiazine 10 MG/ML Topical Cream [SSD] [facility] Sertraline 50 MG Oral Tablet ETHAN ([facility]) Sertraline 25 MG Oral Tablet ETHAN ([facility]) Sertraline 100 MG Oral Tablet ETHAN ([facility]) Omeprazole 40 MG Delayed Release Oral [facility]apsule [facility] NITROFURANTOIN, MACROCRYSTALS 25 MG / Ni trofurantoin, Monohydrate 75 MG Oral Capsule ETHAN ([facility]) Metronidazole 500 MG Oral Tablet ETHAN ([facility]) Metronidazole 0.0075 MG/MG Vaginal Gel ETHAN ([facility]) Metoclopramide 10 MG Oral Tablet ETHAN ([facility]) meloxicam 15 MG Oral Tablet ETHAN ([facility]) Lisinopril 5 MG Oral Tablet ETHAN ([facility]) Levofloxacin 250 MG Oral Tablet ETHAN ([facility]) Simethicone 180 MG Oral Capsule ETHAN ([facility]) gabapentin 800 MG Oral Tablet ETHAN ([facility]) gabapentin 600 MG Oral Tablet ETHAN ([facility]) Fluoxetine 10 MG Oral Capsule ETHAN ([facility]) ferrous sulfate 325 MG Oral Tablet ETHAN ([facility]) Lactulose 667 MG/ML Oral Solution [Enulose] ETHAN ([facility]) Dicyclomine Hydrochloride 10 MG Oral Capsule ETHAN ([facility]) Ciprofloxacin 250 MG Oral Tablet ETHAN ([facility]) Ciprofloxacin 3 MG/ML Ophthalmic Solution ETHAN ([facility]) cefdinir 300 MG Oral Capsule ETHAN ([facility]) albuterol sulfate HFA 90 mcg/actuation a erosol inhaler INHALE 2 PUFFS BY MOUTH EVERY 4 HOURS NEEDED FOR WHEEZING OR SHORTNESS OF BREATH ETHAN ([facility]) Albuterol 0.83 MG/ML Inhalant Solution ETHAN ([facility]) Acetaminophen [facility] 0.5 ML dulaglutide 1.5 MG/ML Auto-Injector [Trulicity] [facility] Sulfamethoxazole 800 MG / Trimethoprim 160 MG Oral Tablet ETHAN ([facility]) silver sulfadiazine 10 MG/ML Topical Cream [SSD] [facility] Sertraline 50 MG Oral Tablet ETHAN ([facility]) Sertraline 25 MG Oral Tablet ETHAN ([facility]) Sertraline 100 MG Oral Tablet ETHAN ([facility]) Omeprazole 40 MG Delayed Release [facility] NITROFURANTOIN, MACROCRYSTALS 25 MG / Ni trofurantoin, Monohydrate 75 MG Oral Capsule ETHAN ([facility]) Metronidazole 500 MG Oral Tablet ETHAN ([facility]) Metronidazole 0.0075 MG/MG Vaginal Gel ETHAN ([facility]) Metoclopramide 10 MG Oral Tablet ETHAN ([facility]) meloxicam 15 MG Oral Tablet ETHAN ([facility]) Lisinopril 5 MG Oral Tablet ETHAN ([facility]) Levofloxacin 250 MG Oral Tablet ETHAN ([facility]) Simethicone 180 MG Oral Capsule ETHAN ([facility]) gabapentin 800 MG Oral Tablet ETHAN ([facility]) gabapentin 600 MG Oral Tablet ETHAN ([facility]) Fluoxetine 10 MG Oral Capsule ETHAN ([facility]) ferrous sulfate 325 MG Oral Tablet ETHAN ([facility]) Lactulose 667 MG/ML Oral Solution [Enulose] ETHAN ([facility]) Dicyclomine Hydrochloride 10 MG Oral Capsule ETHAN ([facility]) Ciprofloxacin 250 MG Oral Tablet ETHAN ([facility]) Ciprofloxacin 3 MG/ML Ophthalmic Solution BACKUS ([facility]) cefdinir 300 MG Oral Capsule ETHAN ([facility]) albuterol sulfate HFA 90 mcg/actuation a erosol inhaler INHALE 2 PUFFS BY MOUTH EVERY 4 HOURS NEEDED FOR WHEEZING OR SHORTNESS OF BREATH ETHAN ([facility]) Albuterol 0.83 MG/ML Inhalant Solution ETHAN ([facility]) Acetaminophen 500 MG Oral Tablet ETHAN ([facility]) gabapentin 600 MG Oral Tablet ETHAN ([facility]) Fluoxetine 10 MG Oral Capsule ETHAN ([facility]) Omeprazole 40 MG Delayed Release Oral Capsule ETHAN ([facility]) NITROFURANTOIN, MACROCRYSTALS 25 MG / Ni trofurantoin, Monohydrate 75 MG Oral Capsule ETHAN ([facility]) Naproxen 500 MG Oral Tablet ETHAN ([facility]) Metronidazole 500 MG Oral Tablet ETHAN ([facility]) Metronidazole 0.0075 MG/MG Vaginal Gel ETHAN ([facility]) Metoclopramide 10 MG Oral Tablet ETHAN ([facility]) meloxicam 15 MG Oral Tablet ETHAN ([facility]) Lisinopril 5 MG Oral Tablet ETHAN ([facility]) Levofloxacin 250 MG Oral Tablet ETHAN ([facility]) Lactulose 667 MG/ML Oral Solution [Enulose] ETHAN ([facility]) Dicyclomine Hydrochloride 10 MG Oral Capsule ETHAN ([facility]) Ciprofloxacin 250 MG Oral Tablet ETHAN ([facility]) cefdinir 300 MG Oral Capsule ETHAN ([facility]) albuterol sulfate HFA 90 mcg/actuation a erosol inhaler INHALE 2 PUFFS BY MOUTH EVERY 4 HOURS NEEDED FOR WHEEZING OR SHORTNESS OF BREATH ETHAN ([facility]) Albuterol 0.83 MG/ML Inhalant Solution ETHAN ([facility]) 0.5 ML dulaglutide 1.5 MG/ML Auto-Injector [Trulicity] ETHAN ([facility]) Sertraline 50 MG Oral Tablet ETHAN ([facility]) Sertraline 25 MG Oral Tablet ETHAN ([facility]) Sertraline 100 MG Oral Tablet ETHAN ([facility]) Omeprazole 40 MG Delayed Release [facility] NITROFURANTOIN, MACROCRYSTALS 25 MG / Ni trofurantoin, Monohydrate 75 MG Oral Capsule ETHAN ([facility]) Metronidazole 500 MG Oral Tablet ETHAN ([facility]) Metronidazole 0.0075 MG/MG Vaginal Gel ETHAN ([facility]) Metoclopramide 10 MG Oral Tablet BACKUS ([facility]) meloxicam 15 MG Oral Tablet BACKUS ([facility]) Lisinopril 5 MG Oral Tablet ETHAN ([facility]) Levofloxacin 250 MG Oral Tablet ETHAN ([facility]) Simethicone 180 MG Oral Capsule ETHAN ([facility]) gabapentin 800 MG Oral Tablet ETHAN ([facility]) gabapentin 600 MG Oral Tablet ETHAN ([facility]) Fluoxetine 10 MG Oral Capsule ETHAN ([facility]) Lactulose 667 MG/ML Oral Solution [Enulose] ETHAN ([facility]) Dicyclomine Hydrochloride 10 MG Oral Capsule ETHAN ([facility]) Ciprofloxacin 250 MG Oral Tablet ETHAN ([facility]) cefdinir 300 MG [facility] albuterol sulfate HFA 90 mcg/actuation a erosol inhaler INHALE 2 PUFFS BY MOUTH EVERY 4 HOURS NEEDED FOR WHEEZING OR SHORTNESS OF BREATH ETHAN ([facility]) Albuterol 0.83 MG/ML Inhalant Solution ETHAN ([facility]) 0.5 ML dulaglutide 1.5 MG/ML Auto-Injector [Trulicity] ETHAN ([facility]) Sertraline 50 MG Oral Tablet ETHAN ([facility]) Sertraline 25 MG Oral Tablet ETHAN ([facility]) Sertraline 100 MG Oral Tablet ETHAN ([facility]) Omeprazole 40 MG Delayed Release Oral Capsule ETHAN ([facility]) NITROFURANTOIN, MACROCRYSTALS 25 MG / Ni trofurantoin, Monohydrate 75 MG Oral Capsule ETHAN ([facility]) Metronidazole 500 MG Oral Tablet ETHAN ([facility]) Metronidazole 0.0075 MG/MG Vaginal Gel ETHAN ([facility]) Metoclopramide 10 MG Oral Tablet ETHAN ([facility]) meloxicam 15 MG Oral Tablet ETHAN ([facility]) Lisinopril 5 MG Oral Tablet ETHAN ([facility]) Levofloxacin 250 MG Oral Tablet ETHAN ([facility]) Simethicone 180 MG Oral Capsule ETHAN ([facility]) gabapentin 800 MG Oral Tablet ETHAN ([facility]) gabapentin 600 MG Oral Tablet ETHAN ([facility]) Fluoxetine 10 MG Oral Capsule ETHAN ([facility]) Lactulose 667 MG/ML Oral Solution [Enulose] ETHAN ([facility]) Dicyclomine Hydrochloride 10 MG Oral Capsule ETHAN ([facility]) Ciprofloxacin 250 MG Oral Tablet ETHAN ([facility]) cefdinir 300 MG Oral Capsule ETHAN ([facility]) albuterol sulfate HFA 90 mcg/actuation a erosol inhaler INHALE 2 PUFFS BY MOUTH EVERY 4 HOURS NEEDED FOR WHEEZING OR SHORTNESS OF BREATH ETHAN ([facility]) Albuterol 0.83 MG/ML Inhalant Solution ETHAN ([facility]) 0.5 ML dulaglutide 1.5 MG/ML Auto-Injector [Trulicity] ETHAN ([facility]) Sertraline 50 MG Oral Tablet ETHAN ([facility]) Sertraline 25 MG Oral Tablet ETHAN ([facility]) Omeprazole 40 MG Delayed Release Oral Capsule ETHAN ([facility]) NITROFURANTOIN, MACROCRYSTALS 25 MG / Ni trofurantoin, Monohydrate 75 MG Oral Capsule ETHAN ([facility]) Metronidazole 500 MG Oral Tablet ETHAN ([facility]) Metronidazole 0.0075 MG/MG Vaginal Gel ETHAN ([facility]) meloxicam 15 MG Oral Tablet ETHAN ([facility]) Simethicone 180 MG Oral Capsule ETHAN ([facility]) gabapentin 600 MG Oral Tablet ETHAN ([facility]) Fluoxetine 10 MG Oral Capsule ETHAN ([facility]) Dicyclomine Hydrochloride 10 MG Oral Capsule ETHAN ([facility]) Ciprofloxacin 250 MG Oral Tablet ETHAN ([facility]) 0.5 ML dulaglutide 1.5 MG/ML Auto-Injector [Trulicity] ETHAN ([facility]) Sertraline 50 MG Oral Tablet ETHAN ([facility]) Sertraline 25 MG Oral Tablet ETHAN ([facility]) Sertraline 100 MG Oral Tablet ETHAN ([facility]) Omeprazole 40 MG Delayed Release Oral Capsule ETHAN ([facility]) NITROFURANTOIN, MACROCRYSTALS 25 MG / Ni trofurantoin, Monohydrate 75 MG Oral Capsule ETHAN ([facility]) Metronidazole 500 MG Oral Tablet ETHAN ([facility]) Metronidazole 0.0075 MG/MG Vaginal Gel ETHAN ([facility]) Metoclopramide 10 MG Oral Tablet ETHAN ([facility]) meloxicam 15 MG Oral Tablet ETHAN ([facility]) Lisinopril 5 MG Oral Tablet ETHAN ([facility]) Levofloxacin 250 MG Oral Tablet ETHAN ([facility]) Simethicone 180 MG Oral Capsule ETHAN ([facility]) gabapentin 800 MG Oral Tablet ETHAN ([facility]) 0.5 ML dulaglutide 1.5 MG/ML Auto-Injector [Trulicity] ETHAN ([facility]) Sertraline 50 MG Oral Tablet ETHAN ([facility]) Sertraline 25 MG Oral Tablet ETHAN ([facility]) Omeprazole 40 MG Delayed Release Oral Capsule ETHAN ([facility]) NITROFURANTOIN, MACROCRYSTALS 25 MG / Ni trofurantoin, Monohydrate 75 MG Oral Capsule ETHAN ([facility]) Metronidazole 500 MG Oral Tablet ETHAN ([facility]) Metronidazole 0.0075 MG/MG Vaginal Gel ETHAN ([facility]) meloxicam 15 MG Oral Tablet ETHAN ([facility]) Simethicone 180 MG Oral Capsule ETHAN ([facility]) gabapentin 600 MG Oral Tablet ETHAN ([facility]) Fluoxetine 10 MG Oral Capsule ETHAN ([facility]) Dicyclomine Hydrochloride 10 MG Oral Capsule ETHAN ([facility]) Ciprofloxacin 250 MG Oral Tablet ETHAN ([facility]) 0.5 ML dulaglutide 1.5 MG/ML Auto-Injector [Trulicity] ETHAN ([facility]) Sertraline 50 MG Oral Tablet ETHAN ([facility]) Sertraline 25 MG Oral Tablet ETHAN ([facility]) Omeprazole 40 MG Delayed Release Oral Capsule ETHAN ([facility]) NITROFURANTOIN, MACROCRYSTALS 25 MG / Ni trofurantoin, Monohydrate 75 MG Oral Capsule ETHAN ([facility]) Metronidazole 500 MG Oral Tablet ETHAN ([facility]) Metronidazole 0.0075 MG/MG Vaginal Gel ETHAN ([facility]) meloxicam 15 MG Oral Tablet ETHAN ([facility]) Lisinopril 5 MG Oral Tablet ETHAN ([facility]) Simethicone 180 MG Oral Capsule ETHAN ([facility]) gabapentin 600 MG Oral Tablet ETHAN ([facility]) Fluoxetine 10 MG Oral Capsule ETHAN ([facility]) Dicyclomine Hydrochloride 10 MG Oral Capsule ETHAN ([facility]) Ciprofloxacin 250 MG Oral Tablet ETHAN ([facility]) 0.5 ML dulaglutide 1.5 MG/ML Auto-Injector [Trulicity] ETHAN ([facility]) Sertraline 50 MG Oral Tablet ETHAN ([facility]) Sertraline 25 MG Oral Tablet ETHAN ([facility]) Omeprazole 40 MG Delayed Release Oral Capsule ETHAN ([facility]) NITROFURANTOIN, MACROCRYSTALS 25 MG / Ni trofurantoin, Monohydrate 75 MG Oral Capsule ETHAN ([facility]) Metronidazole 500 MG Oral Tablet ETHAN ([facility]) Metronidazole 0.0075 MG/MG Vaginal Gel ETHAN ([facility]) meloxicam 15 MG Oral Tablet ETHAN ([facility]) Lisinopril 5 MG Oral Tablet ETHAN ([facility]) Simethicone 180 MG Oral Capsule ETHAN ([facility]) gabapentin 600 MG Oral Tablet ETHAN ([facility]) Fluoxetine 10 MG Oral Capsule ETHAN ([facility]) Dicyclomine Hydrochloride 10 MG Oral Capsule ETHAN ([facility]) Ciprofloxacin 250 MG Oral Tablet ETHAN ([facility]) 0.5 ML dulaglutide 1.5 MG/ML Auto-Injector [Trulicity] ETHAN ([facility]) Sertraline 50 MG Oral Tablet ETHAN ([facility]) Sertraline 25 MG Oral Tablet ETHAN ([facility]) Sertraline 100 MG Oral Tablet ETHAN ([facility]) Omeprazole 40 MG Delayed Release Oral Capsule ETHAN ([facility]) NITROFURANTOIN, MACROCRYSTALS 25 MG / Ni trofurantoin, Monohydrate 75 MG Oral Capsule ETHAN ([facility]) Metronidazole 500 MG Oral Tablet ETHAN ([facility]) Metronidazole 0.0075 MG/MG Vaginal Gel ETHAN ([facility]) meloxicam 15 MG Oral Tablet ETHAN ([facility]) Lisinopril 5 MG Oral Tablet ETHAN ([facility]) Simethicone 180 MG Oral Capsule ETHAN ([facility]) gabapentin 600 MG Oral Tablet ETHAN ([facility]) Fluoxetine 10 MG Oral Capsule ETHAN ([facility]) Dicyclomine Hydrochloride 10 MG Oral Capsule ETHAN ([facility]) Ciprofloxacin 250 MG Oral Tablet ETHAN ([facility])
[2021-01-19 00:19] VITALS: BP 139/74
== END 2021-01-19 00:22 | disposition home or self-care (01) ==
LOC: M ED 17:26
DX: R10.9 Unspecified abdominal pain (principal); K92.1 Melena; E11.9 Type 2 diabetes mellitus without complications; I10 Essential (primary) hypertension; F33.9 Major depressive disorder, recurrent, unspecified; F41.9 Anxiety disorder, unspecified; K21.9 Gastro-esophageal reflux disease without esophagitis; Z79.899 Other long term (current) drug therapy; Z79.84 Long term (current) use of oral hypoglycemic drugs; Z88.0 Allergy status to penicillin

== ENCOUNTER → 2021-05-03 | Outpatient (CLI) | payer OTHER ==
[~2021-05-03] MED LIST changes: +ESCITALOPRAM; -FLUO10CA16 PO; +FLUO10CA18 PO; -LISI-898 PO; +LISI5TAB11 PO; -OMEP-221 PO; +OMEP40CA5 PO; +PREG100C
== END ==
LOC: M PLAIMG 08:23
PROVIDERS: ATTEND Physician Assistant
DX: M25.572 Pain in left ankle and joints of left foot (principal); M25.472 Effusion, left ankle; M94.272 Chondromalacia, left ankle and joints of left foot

== ENCOUNTER → 2021-06-30 | Outpatient (REF) | payer OTHER | LOC: M WUC 19:36 | PROVIDERS: ATTEND Physician Assistant | DX: N39.0 Urinary tract infection, site not specified (principal) ==

== ENCOUNTER → 2021-10-25 | Outpatient (REF) | LOC: M EMP 13:55 | PROVIDERS: ATTEND Family Medicine | DX: Z20.822 Contact with and (suspected) exposure to COVID-19 (principal) ==

== ENCOUNTER → 2021-11-20 | Outpatient (REF) | payer OTHER | LOC: M WUC 18:55 | PROVIDERS: ATTEND Physician Assistant | DX: N39.0 Urinary tract infection, site not specified (principal) ==

== ENCOUNTER → 2022-01-29 | Outpatient (REF) | payer OTHER | LOC: M WUC 18:33 | PROVIDERS: ATTEND Student in an Organized Health Care Education/Training Program | DX: R30.0 Dysuria (principal) ==

== ENCOUNTER → 2022-03-28 | Outpatient (REF) | payer OTHER ==
[2022-03-28 12:47] LABS: HEMATOCRIT 38.5 % (36.0-47.0); MEAN CORPUSCULAR HGB CONC 31.2 g/dl (32.0-36.5); MEAN CORPUSCULAR VOLUME 89.7 fl (80.0-96.0); PLATELET COUNT, AUTOMATED 348 10^3/uL (150-450); RED BLOOD COUNT 4.29 10^6/uL (4.00-5.40); WHITE BLOOD COUNT 7.1 10^3/uL (4.0-10.0)
[2022-03-28 13:08] LABS: HEMOGLOBIN A1c 9.7 % (4.0-6.0)
[2022-03-28 13:13] LABS: TOTAL IRON BINDING CAPACITY 310 UG/DL (250-425)
[2022-03-28 13:14] LABS: ALBUMIN 3.3 G/DL (3.2-5.2); ALKALINE PHOSPHATASE 107 U/L (46-116); ALT/SGPT 16 U/L (7.0-40); AST/SGOT 10 U/L (<34); BILIRUBIN,TOTAL 0.2 MG/DL (0.3-1.2); BLOOD UREA NITROGEN 18 MG/DL (9-23); CALCIUM LEVEL 9.1 MG/DL (8.5-10.1); CARBON DIOXIDE LEVEL 32 MMOL/L (20-31); CHLORIDE LEVEL 99 MMOL/L (98-107); CHOLESTEROL LEVEL 148 MG/DL (<200); CHOLESTEROL RISK RATIO 3.83 (<5); CREATININE FOR GFR 0.65 MG/DL (0.55-1.30); GLOMERULAR FILTRATION RATE > 60.0 (>58); GLUCOSE, FASTING 233 MG/DL (60-100); HDL CHOLESTEROL 38.6 MG/DL (>40); IRON (FE) 49 UG/DL (50-170); NON-HDL-C 109 MG/DL; PERCENT SATURATION 15.8 % (13.2-45.0); POTASSIUM SERUM 4.2 MMOL/L (3.5-5.1); SODIUM LEVEL 136 MMOL/L (136-145); TOTAL PROTEIN 6.3 G/DL (5.7-8.2); TRIGLYCERIDES LEVEL 187 MG/DL (<150)
[2022-03-28 13:15] LABS: FERRITIN 11.6 NG/ML (7.3-270.7)
[2022-03-28 13:17] LABS: TOTAL 25(OH) VITAMIN D 39.1 NG/ML (20.0-100.0)
[2022-03-28 13:40] LABS: HIV 1&2 SCREEN CENTAUR NEGATIVE (NEGATIVE)
[2022-03-28 13:48] LABS: HEPATITIS C VIRUS ABY INDEX 0.1 INDEX (<0.8)
== END ==
LOC: M LAB REF 12:08
PROVIDERS: ATTEND Physician Assistant
DX: E11.65 Type 2 diabetes mellitus with hyperglycemia (principal); Z11.4 Encounter for screening for human immunodeficiency virus [HIV]; E55.9 Vitamin D deficiency, unspecified; D50.9 Iron deficiency anemia, unspecified

== ENCOUNTER 2022-04-05 23:47 | Emergency (ER) | payer OTHER ==
[~2022-04-05] VITALS: Ht 167.6 cm; Wt 147.8 kg
[2022-04-06] MEDS ORDERED: BASA100I SC (00:02)
[2022-04-06] MEDS ORDERED: BACTDSTA PO (00:02)
[2022-04-06] MEDS ORDERED: SEMA2PEN SQ (00:02)
[2022-04-06] MEDS ORDERED: GABA-282 PO (00:02)
[2022-04-06] MEDS ORDERED: MORPHINE 4 MG/ML 1ML VIAL IV ONE (01:05)
[2022-04-06 01:23] LABS: BASO # 0.1 10^3/uL (0.0-0.2); BASO % 0.7 % (0.0-1.0); EOS # 0.2 10^3/uL (0.0-0.5); EOS % 2.2 % (0.0-3.0); HEMATOCRIT 39.4 % (36.0-47.0); HEMOGLOBIN 13.1 g/dl (12.0-15.5); LYMPH % 22.7 % (24.0-44.0); MEAN CORPUSCULAR HGB CONC 33.2 g/dl (32.0-36.5); MEAN CORPUSCULAR VOLUME 87.4 fl (80.0-96.0); MONO # 0.8 10^3/uL (0.0-0.8); MONO % 8.8 % (2.0-8.0); NEUTROPHILS # 5.7 10^3/uL (1.5-8.5); NEUTROPHILS % 65.1 % (36.0-66.0); PLATELET COUNT, AUTOMATED 337 10^3/uL (150-450); RED BLOOD COUNT 4.51 10^6/uL (4.00-5.40); WHITE BLOOD COUNT 8.7 10^3/uL (4.0-10.0)
[2022-04-06 01:49] LABS: BLOOD UREA NITROGEN 19 MG/DL (9-23); CALCIUM LEVEL 9.4 MG/DL (8.5-10.1); CARBON DIOXIDE LEVEL 26 MMOL/L (20-31); CHLORIDE LEVEL 100 MMOL/L (98-107); CREATININE FOR GFR 0.65 MG/DL (0.55-1.30); GLOMERULAR FILTRATION RATE > 60.0 (>58); GLUCOSE, FASTING 268 MG/DL (60-100); POTASSIUM SERUM 5.2 MMOL/L (3.5-5.1); SODIUM LEVEL 134 MMOL/L (136-145)
[2022-04-06 01:51] LABS: HCG, SERUM QUALITATIVE NEGATIVE (NEGATIVE)
[2022-04-06] MEDS ORDERED: KETOROLAC 30 MG/ML 1ML VIAL IV ONE (02:45)
[2022-04-06] MEDS ORDERED: VANCOMYCIN HCL 1,500 MG in IV FLUID PLACE HOLDER 1 EA IV ONE (02:45)
[2022-04-06] MEDS ORDERED: VANCOMYCIN HCL 1,000 MG, VIAL MATE ADAPTER 1 EACH in NS 250 ML IV ONE ×6 (04:00)
[2022-04-06] MEDS ORDERED: diphenhydrAMINE 50MG/ML VIAL IV STA (05:09)
[2022-04-06 05:49] VITALS: BP 137/94
== END 2022-04-06 06:02 | disposition home or self-care (01) ==
LOC: M ED 23:47
DX: R22.41 Localized swelling, mass and lump, right lower limb (principal); E11.9 Type 2 diabetes mellitus without complications; I10 Essential (primary) hypertension; F41.9 Anxiety disorder, unspecified; F43.10 Post-traumatic stress disorder, unspecified; K21.9 Gastro-esophageal reflux disease without esophagitis; Z79.4 Long term (current) use of insulin; Z79.84 Long term (current) use of oral hypoglycemic drugs; Z88.0 Allergy status to penicillin; Z88.1 Allergy status to other antibiotic agents; Z79.899 Other long term (current) drug therapy

== ENCOUNTER 2022-05-16 13:40 | Emergency (ER) | payer OTHER ==
[~2022-05-16] VITALS: Ht 172.7 cm; Wt 135.9 kg
[~2022-05-16 13:40] MED LIST changes: +BACTDSTA PO; +BASA100I SC; +SEMA2PEN SQ
[2022-05-16] MEDS ORDERED: JANU100T PO (14:03)
[2022-05-16] MEDS ORDERED: NS 1,000 ML IV ONE (14:10)
[2022-05-16] MEDS ORDERED: MORPHINE 2 MG/ML 1ML VIAL IV ONE (14:20)
[2022-05-16] MEDS ORDERED: METOCLOPRAMIDE INJ 10MG/2ML VIAL IV ONE (14:20)
[2022-05-16 14:29] LABS: VENOUS BASE EXCESS 1.9 (-2.0-2.0); VENOUS HCO3 27.9 MEQ/L (23.0-27.0); VENOUS O2 SATURATION 73.5 % (60.0-80.0); VENOUS PARTIAL PRESSURE CO2 49.1 mmHg (38.0-50.0); VENOUS PH 7.372 UNITS (7.330-7.430); VENOUS STANDARD HCO3 25.5 MEQ/L; VENOUS TOTAL CO2 29.4 MEQ/L (24.0-28.0)
[2022-05-16 14:35] LABS: BASO % 0.2 % (0.0-1.0); EOS % 0.3 % (0.0-3.0); HEMOGLOBIN 12.7 g/dl (12.0-15.5); LYMPH # 0.4 10^3/uL (1.5-5.0); LYMPH % 3.3 % (24.0-44.0); MEAN CORPUSCULAR HGB CONC 32.6 g/dl (32.0-36.5); MONO # 0.4 10^3/uL (0.0-0.8); MONO % 3.4 % (2.0-8.0); NEUTROPHILS % 92.4 % (36.0-66.0); PLATELET COUNT, AUTOMATED 355 10^3/uL (150-450); RED BLOOD COUNT 4.38 10^6/uL (4.00-5.40); WHITE BLOOD COUNT 11.9 10^3/uL (4.0-10.0)
[2022-05-16 14:53] LABS: ETHYL ALCOHOL (ETHANOL) < 0.003 % (0.000-0.010); LIPASE 75 U/L (12-53)
[2022-05-16 14:55] LABS: ALBUMIN 3.3 G/DL (3.2-5.2); ALKALINE PHOSPHATASE 99 U/L (46-116); ALT/SGPT 20 U/L (7.0-40); AST/SGOT 16 U/L (<34); BILIRUBIN,DIRECT 0.1 MG/DL (<0.4); BILIRUBIN,TOTAL 0.4 MG/DL (0.3-1.2); MAGNESIUM LEVEL 1.2 MG/DL (1.8-2.4); TOTAL PROTEIN 6.3 G/DL (5.7-8.2)
[2022-05-16] MEDS ORDERED: MAG SULF 1GM/100ML (MAG RUN) 1 GM in IV 1 EA IV ONE ×2 (15:00→16:55)
[2022-05-16 15:09] LABS: CK-MB VALUE MASS 1.3 NG/ML (<3.6)
[2022-05-16 15:16] LABS: CPK CREATINE PHOSPHOKINASE 26 U/L (34-145)
[2022-05-16 15:20] LABS: OSMOLALITY SERUM 295 MOSM/KG (275-295)
[2022-05-16 15:34] LABS: CPK CREATINE PHOSPHOKINASE 24 U/L (34-145); MB/CK RELATIVE INDEX 4.16 (< OR =4)
[2022-05-16 16:21] LABS: METHADONE URINE NEGATIVE (NEGATIVE); PHENCYCLIDINE URINE NEGATIVE (NEGATIVE)
[2022-05-16 16:22] LABS: AMPHETAMINES LEVEL URINE NEGATIVE (NEGATIVE); BARBITURATES URINE NEGATIVE (NEGATIVE); BENZODIAZEPINES URINE NEGATIVE (NEGATIVE); CANNABINOIDS URINE NEGATIVE (NEGATIVE); COCAINE METABOLITE URINE NEGATIVE (NEGATIVE)
[2022-05-16 16:23] LABS: OPIATES URINE POSITIVE (NEGATIVE)
[2022-05-16] MEDS ORDERED: ISOVUE-370 76% 100ML VIAL As Ordered ONE (16:37)
[2022-05-16 16:46] LABS: HEMOGLOBIN A1c 8.9 % (4.0-6.0)
[2022-05-16] MEDS ORDERED: KETOROLAC 30 MG/ML 1ML VIAL IV ONE (17:55)
[2022-05-16] MEDS ORDERED: ONDA4TAB6 PO (19:57)
[2022-05-16 20:01] VITALS: BP 124/77
== END 2022-05-16 20:11 | disposition home or self-care (01) ==
LOC: M ED 13:40
DX: E11.65 Type 2 diabetes mellitus with hyperglycemia (principal); E83.42 Hypomagnesemia; N85.2 Hypertrophy of uterus; I10 Essential (primary) hypertension; K21.9 Gastro-esophageal reflux disease without esophagitis; F90.9 Attention-deficit hyperactivity disorder, unspecified type; F41.9 Anxiety disorder, unspecified; F32.9 Major depressive disorder, single episode, unspecified; F42.9 Obsessive-compulsive disorder, unspecified; R16.1 Splenomegaly, not elsewhere classified; Z79.4 Long term (current) use of insulin; Z79.899 Other long term (current) drug therapy; Z88.0 Allergy status to penicillin
CPT/HCPCS: 74177; 80047; 80076; 80307; 81001; 82010; 82077; 82550; 82553; 82803; 83036; 83690; 83735; 83930; 85025; 87486; 87581; 87633; 87798; 93005; 93041; 94760; 96374; 96375; 96376; 99285; J1885; J2270; J2765; J3475

== ENCOUNTER 2022-08-06 19:27 | Emergency (ER) | payer OTHER ==
[~2022-08-06] VITALS: Ht 167.6 cm; Wt 136.4 kg
[~2022-08-06 19:27] MED LIST changes: +JANU100T PO; +ONDA4TAB6 PO
[2022-08-06 21:35] LABS: HEMATOCRIT 32.9 % (36.0-47.0); HEMOGLOBIN 10.7 g/dl (12.0-15.5); MEAN CORPUSCULAR HEMOGLOBIN 28.6 pg (27.0-33.0); MEAN CORPUSCULAR HGB CONC 32.5 g/dl (32.0-36.5); PLATELET COUNT, AUTOMATED 410 10^3/uL (150-450); RED BLOOD COUNT 3.74 10^6/uL (4.00-5.40); WHITE BLOOD COUNT 8.9 10^3/uL (4.0-10.0)
[2022-08-06 21:58] LABS: AMPHETAMINES LEVEL URINE NEGATIVE (NEGATIVE); BARBITURATES URINE NEGATIVE (NEGATIVE); BENZODIAZEPINES URINE NEGATIVE (NEGATIVE); COCAINE METABOLITE URINE NEGATIVE (NEGATIVE); METHADONE URINE NEGATIVE (NEGATIVE); PHENCYCLIDINE URINE NEGATIVE (NEGATIVE)
[2022-08-06 21:59] LABS: CANNABINOIDS URINE NEGATIVE (NEGATIVE); OPIATES URINE NEGATIVE (NEGATIVE)
[2022-08-06 22:02] LABS: ETHYL ALCOHOL (ETHANOL) < 0.003 % (0.000-0.010)
[2022-08-06 22:03] LABS: ACETAMINOPHEN LEVEL < 2.0 UG/ML (10.0-20.0); SALICYLATE LEVEL < 3.0 MG/DL (<30)
[2022-08-06 22:04] LABS: ALBUMIN 3.7 G/DL (3.2-5.2); ALKALINE PHOSPHATASE 105 U/L (46-116); ALT/SGPT 18 U/L (7.0-40); AST/SGOT 11 U/L (<34); BILIRUBIN,DIRECT < 0.1 MG/DL (<0.4); BILIRUBIN,TOTAL 0.2 MG/DL (0.3-1.2); BLOOD UREA NITROGEN 18 MG/DL (9-23); CALCIUM LEVEL 9.3 MG/DL (8.5-10.1); CARBON DIOXIDE LEVEL 27 MMOL/L (20-31); CHLORIDE LEVEL 101 MMOL/L (98-107); CREATININE FOR GFR 0.47 MG/DL (0.55-1.30); GLOMERULAR FILTRATION RATE > 60.0 (>58); GLUCOSE, FASTING 173 MG/DL (60-100); HCG, SERUM QUALITATIVE NEGATIVE (NEGATIVE); POTASSIUM SERUM 3.7 MMOL/L (3.5-5.1); SODIUM LEVEL 135 MMOL/L (136-145); TOTAL PROTEIN 6.5 G/DL (5.7-8.2)
[2022-08-06 22:05] LABS: THYROID STIMULATING HORMONE 2.295 uIU/ML (0.55-4.78)
[2022-08-06 23:58] VITALS: BP 135/75
== END 2022-08-07 00:15 | disposition home or self-care (01) ==
LOC: M ED 19:27
DX: Z13.30 Encounter for screening examination for mental health and behavioral disorders, unspecified (principal); M54.2 Cervicalgia; E11.9 Type 2 diabetes mellitus without complications; I10 Essential (primary) hypertension; E66.9 Obesity, unspecified; M75.31 Calcific tendinitis of right shoulder; Z79.4 Long term (current) use of insulin; Z79.899 Other long term (current) drug therapy; Z88.0 Allergy status to penicillin

== ENCOUNTER → 2022-08-08 | Outpatient (REF) | payer OTHER ==
[2022-08-08 18:34] LABS: CREATININE, URINE 99.8 MG/DL
== END ==
LOC: M LAB REF 16:35
PROVIDERS: ATTEND Physician Assistant
DX: E11.65 Type 2 diabetes mellitus with hyperglycemia (principal)

== ENCOUNTER → 2022-10-27 | Outpatient (REF) | payer OTHER ==
[~2022-10-27] MED LIST changes: +DICY-61 PO; -DICY10CA13 PO
== END ==
LOC: M LAB REF 16:09
PROVIDERS: ATTEND Physician Assistant
DX: R30.0 Dysuria (principal)

== ENCOUNTER 2022-11-23 14:42 | Inpatient (IN) | payer OTHER ==
[~2022-11-23] VITALS: Ht 172.7 cm; Wt 143.3 kg
[~2022-11-23 14:42] MED LIST changes: -PREG100C; +PREG100C2
[2022-11-23] MEDS ORDERED: LEXA1TAB2 PO (15:01)
[2022-11-23] MEDS ORDERED: NS 1,000 ML IV ONE (16:25)
[2022-11-23] MEDS ORDERED: ACETAMINOPHEN 500 MG TAB PO ONE (16:30)
[2022-11-23 17:09] LABS: BASO % 0.5 % (0.0-1.0); EOS # 0.2 10^3/uL (0.0-0.5); HEMATOCRIT 33.5 % (36.0-47.0); HEMOGLOBIN 10.6 g/dl (12.0-15.5); LYMPH # 1.4 10^3/uL (1.5-5.0); LYMPH % 17.9 % (24.0-44.0); MEAN CORPUSCULAR HEMOGLOBIN 28.6 pg (27.0-33.0); MEAN CORPUSCULAR HGB CONC 31.6 g/dl (32.0-36.5); MEAN CORPUSCULAR VOLUME 90.3 fl (80.0-96.0); MONO # 0.8 10^3/uL (0.0-0.8); MONO % 9.8 % (2.0-8.0); NEUTROPHILS # 5.3 10^3/uL (1.5-8.5); NEUTROPHILS % 68.3 % (36.0-66.0); PLATELET COUNT, AUTOMATED 403 10^3/uL (150-450); RED BLOOD COUNT 3.71 10^6/uL (4.00-5.40); WHITE BLOOD COUNT 7.7 10^3/uL (4.0-10.0)
[2022-11-23] MEDS ORDERED: ISOVUE-370 76% 100ML VIAL As Ordered ONE (17:26)
[2022-11-23 17:28] LABS: LIPASE 39 U/L (12-53)
[2022-11-23 17:30] LABS: ALBUMIN 3.6 G/DL (3.2-5.2); ALKALINE PHOSPHATASE 108 U/L (46-116); ALT/SGPT 26 U/L (7.0-40); AST/SGOT < 8 U/L (<34); BILIRUBIN,DIRECT < 0.1 MG/DL (<0.4); BILIRUBIN,TOTAL 0.2 MG/DL (0.3-1.2); TOTAL PROTEIN 6.7 G/DL (5.7-8.2)
[2022-11-23 17:46] LABS: RSV AMPLIFICATION POSITIVE (NEGATIVE)
[2022-11-23] MEDS ORDERED: BACTRIM 160MG/800MG DS TAB PO ONE (19:10)
[2022-11-23] MEDS ORDERED: MED REC IN PROGRESS XX SCH (19:25)
[2022-11-23] MEDS ORDERED: GLUCOSE 4GM CHEW TABLET PO PRN (19:45)
[2022-11-23] MEDS ORDERED: DEXTROSE 50% 50ML SYRINGE IV PRN (19:45)
[2022-11-23] MEDS ORDERED: GLUCAGON INJ 1MG VIAL SC PRN (19:45)
[2022-11-23] MEDS ORDERED: MED REC CURRENTLY UNOBTAINABLE XX SCH (20:55)
[2022-11-23] MEDS ORDERED: JANU100T PO (21:30)
[2022-11-23] MEDS ORDERED: SEMA1PEN2 SC (21:30)
[2022-11-23] MEDS ORDERED: CVS-161 PO (21:35)
[2022-11-23] MEDS ORDERED: HOME MED LIST COMPLETE! XX SCH (21:35)
[2022-11-23 21:40] VITALS: BP 110/58; TEMP 98.1; O2SAT 94
[2022-11-23] MEDS: INSULIN LISPRO (NovoLOG) PER UNIT SC SCH (22:09)
[2022-11-23] MEDS ORDERED: LEVEMIR (INSULIN DETEMIR) 1 UNITS/0.01ML SC ONE (22:20)
[2022-11-23] MEDS: NS 1,000 ML IV SCH (22:30)
[2022-11-23] MEDS: CIPROFLOXACIN 400 MG in IV 1 EA IV SCH (22:30)
[2022-11-23] MEDS: GABAPENTIN 300 MG CAP PO SCH (22:48)
[2022-11-23] MEDS: PERCOCET 5MG/325MG TAB PO PRN (22:48)
[2022-11-24] MEDS: metroNIDAZOLE 500 MG in IV 1 EA IV SCH ×3 (00:05→13:15)
[2022-11-24] MEDS: PERCOCET 5MG/325MG TAB PO PRN ×2 (05:32→10:21)
[2022-11-24 06:00] VITALS: BP 142/72; TEMP 98.2; O2SAT 95
[2022-11-24 06:57] LABS: HEMOGLOBIN 9.2 g/dl (12.0-15.5); MEAN CORPUSCULAR HEMOGLOBIN 27.8 pg (27.0-33.0); MEAN CORPUSCULAR HGB CONC 30.7 g/dl (32.0-36.5); MEAN CORPUSCULAR VOLUME 90.6 fl (80.0-96.0); PLATELET COUNT, AUTOMATED 336 10^3/uL (150-450); RED BLOOD COUNT 3.31 10^6/uL (4.00-5.40); WHITE BLOOD COUNT 4.6 10^3/uL (4.0-10.0)
[2022-11-24 07:26] LABS: PROCALCITONIN 0.09 ng/ml
[2022-11-24 07:30] LABS: ALKALINE PHOSPHATASE 92 U/L (46-116); ALT/SGPT 23 U/L (7.0-40); AST/SGOT < 8 U/L (<34); BILIRUBIN,TOTAL 0.2 MG/DL (0.3-1.2); BLOOD UREA NITROGEN 15 MG/DL (9-23); CALCIUM LEVEL 9.1 MG/DL (8.5-10.1); CARBON DIOXIDE LEVEL 30 MMOL/L (20-31); CHLORIDE LEVEL 102 MMOL/L (98-107); CREATININE FOR GFR 0.45 MG/DL (0.55-1.30); GLOMERULAR FILTRATION RATE > 60.0 (>58); GLUCOSE, FASTING 122 MG/DL (60-100); MAGNESIUM LEVEL 1.2 MG/DL (1.8-2.4); SODIUM LEVEL 139 MMOL/L (136-145); TOTAL PROTEIN 5.7 G/DL (5.7-8.2)
[2022-11-24] MEDS: NS 1,000 ML IV SCH (08:26)
[2022-11-24] MEDS: CIPROFLOXACIN 400 MG in IV 1 EA IV SCH (08:26)
[2022-11-24] MEDS: ESCITALOPRAM OXALATE 10 MG TAB (LEXAPRO) PO SCH (08:32)
[2022-11-24] MEDS: ENOXAPARIN 40MG/0.4ML SYRINGE (J1650 PER 10MG) SC SCH ×2 (08:32→21:39)
[2022-11-24] MEDS: INSULIN LISPRO (NovoLOG) PER UNIT SC SCH ×4 (08:32→21:00)
[2022-11-24] MEDS: GABAPENTIN 300 MG CAP PO SCH ×3 (08:32→21:40)
[2022-11-24] MEDS: OMEPRAZOLE 20MG CAP PO SCH (08:33)
[2022-11-24] MEDS: FERROUS SULFATE 325MG TAB PO SCH (08:33)
[2022-11-24 08:41] VITALS: BP 118/62
[2022-11-24] MEDS: hydroCHLOROthiazide 12.5 MG CAPSULE PO SCH (08:41)
[2022-11-24] MEDS ORDERED: PROHANCE 279.3MG/ML 5ML VIAL As Ordered ONE (09:21)
[2022-11-24] MEDS ORDERED: PROHANCE 279.3MG/ML 15ML VIAL As Ordered ONE (09:21)
[2022-11-24 09:27] LABS: HIV 1&2 SCREEN NEGATIVE (NEGATIVE)
[2022-11-24 09:37] LABS: HEPATITIS C VIRUS ABY INDEX 0.15 INDEX (<0.8)
[2022-11-24] MEDS: ACETAMINOPHEN TAB 650MG DOSE (2X325MG) PO PRN ×2 (13:15→21:42)
[2022-11-24 14:00] VITALS: BP 139/72; TEMP 97.5; O2SAT 97
[2022-11-24 14:23] LABS: LDH LACTATE DEHYDROGENASE 126 U/L (120-246)
[2022-11-24] MEDS ORDERED: MAGNESIUM OXIDE 400MG TAB (MAG-OX) PO ONE (16:00)
[2022-11-24] MEDS ORDERED: MAG SULF 1GM/100ML (MAG RUN) 1 GM in IV 1 EA IV ONE (16:00)
[2022-11-24] MEDS: CIPROFLOXACIN 500MG TABLET PO SCH (17:32)
[2022-11-24] MEDS ORDERED: LEVEMIR (INSULIN DETEMIR) 1 UNITS/0.01ML SC SCH (21:00)
[2022-11-24 21:23] VITALS: BP 158/76; TEMP 98.1; O2SAT 97
[2022-11-25] MEDS: CIPROFLOXACIN 500MG TABLET PO SCH (05:47)
[2022-11-25 05:50] VITALS: BP 156/84; TEMP 98.2; O2SAT 98
[2022-11-25 06:38] LABS: BASO % 0.7 % (0.0-1.0); EOS # 0.3 10^3/uL (0.0-0.5); EOS % 6.3 % (0.0-3.0); HEMATOCRIT 32.1 % (36.0-47.0); LYMPH # 0.7 10^3/uL (1.5-5.0); LYMPH % 16.2 % (24.0-44.0); MEAN CORPUSCULAR HEMOGLOBIN 28.2 pg (27.0-33.0); MEAN CORPUSCULAR HGB CONC 31.2 g/dl (32.0-36.5); MEAN CORPUSCULAR VOLUME 90.7 fl (80.0-96.0); MONO # 0.5 10^3/uL (0.0-0.8); MONO % 11.2 % (2.0-8.0); NEUTROPHILS % 65.2 % (36.0-66.0); PLATELET COUNT, AUTOMATED 329 10^3/uL (150-450); RED BLOOD COUNT 3.54 10^6/uL (4.00-5.40); WHITE BLOOD COUNT 4.6 10^3/uL (4.0-10.0)
[2022-11-25 06:53] LABS: BLOOD UREA NITROGEN 12 MG/DL (9-23); CALCIUM LEVEL 8.9 MG/DL (8.5-10.1); CARBON DIOXIDE LEVEL 31 MMOL/L (20-31); CHLORIDE LEVEL 103 MMOL/L (98-107); CREATININE FOR GFR 0.41 MG/DL (0.55-1.30); GLOMERULAR FILTRATION RATE > 60.0 (>58); GLUCOSE, FASTING 190 MG/DL (60-100); MAGNESIUM LEVEL 1.2 MG/DL (1.8-2.4); POTASSIUM SERUM 4.2 MMOL/L (3.5-5.1); SODIUM LEVEL 139 MMOL/L (136-145)
[2022-11-25 07:39] LABS: ERYTHROCYTE SEDIMENTATION RATE 35 mm/hr (0-20)
[2022-11-25] MEDS: ENOXAPARIN 40MG/0.4ML SYRINGE (J1650 PER 10MG) SC SCH (08:53)
[2022-11-25] MEDS: INSULIN LISPRO (NovoLOG) PER UNIT SC SCH ×2 (08:54→12:07)
[2022-11-25] MEDS: OMEPRAZOLE 20MG CAP PO SCH (08:54)
[2022-11-25] MEDS: hydroCHLOROthiazide 12.5 MG CAPSULE PO SCH (08:55)
[2022-11-25] MEDS: ESCITALOPRAM OXALATE 10 MG TAB (LEXAPRO) PO SCH (08:55)
[2022-11-25] MEDS: GABAPENTIN 300 MG CAP PO SCH (08:55)
[2022-11-25] MEDS: FERROUS SULFATE 325MG TAB PO SCH (08:55)
[2022-11-25] MEDS: MAG SULF 1GM/100ML (MAG RUN) 1 GM in IV 1 EA IV SCH ×2 (08:57→09:00)
[2022-11-25] MEDS ORDERED: MAGNESIUM OXIDE 400MG TAB (MAG-OX) PO ONE (09:00)
[2022-11-25] MEDS: PERCOCET 5MG/325MG TAB PO PRN (09:02)
[2022-11-25 14:00] VITALS: BP 118/68; TEMP 97.5; O2SAT 98
[2022-11-25] MEDS: ACETAMINOPHEN TAB 650MG DOSE (2X325MG) PO PRN (14:47)
[2022-11-25] MEDS ORDERED: ACET1TAB55 PO (16:34)
[2022-11-25] MEDS ORDERED: MAGN400T2 PO (16:34)
[2022-11-25] MEDS ORDERED: CIPR-249 PO (16:34)
== END 2022-11-25 17:38 | disposition home or self-care (01) | DRG 463 ==
LOC: M ED 14:42 → EEVIPCON 19:45 → M ED INP 19:45 → ENRESERV 20:22 → M MSPAV 21:58
PROVIDERS: ADMIT Internal Medicine; ATTEND Family Medicine
DX: N39.0 Urinary tract infection, site not specified (principal); E11.65 Type 2 diabetes mellitus with hyperglycemia; B97.4 Respiratory syncytial virus as the cause of diseases classified elsewhere; E83.42 Hypomagnesemia; R16.1 Splenomegaly, not elsewhere classified; I10 Essential (primary) hypertension; D73.89 Other diseases of spleen; B96.20 Unspecified Escherichia coli [E. coli] as the cause of diseases classified elsewhere; D64.9 Anemia, unspecified; J06.9 Acute upper respiratory infection, unspecified; K21.9 Gastro-esophageal reflux disease without esophagitis; R59.9 Enlarged lymph nodes, unspecified; R91.8 Other nonspecific abnormal finding of lung field; F41.9 Anxiety disorder, unspecified; F32.A Depression, unspecified; Z88.0 Allergy status to penicillin; Z88.8 Allergy status to other drugs, medicaments and biological substances; Z79.899 Other long term (current) drug therapy; Z79.4 Long term (current) use of insulin; Z86.16 Personal history of COVID-19; N20.0 Calculus of kidney

== ENCOUNTER → 2022-12-18 | Outpatient (REF) | payer MEDICAID, OTHER ==
[~2022-12-18] MED LIST changes: +ACET1TAB55 PO; +CIPR-249 PO; +CVS-161 PO; +GLIP5TAB17 PO; -GLIP5TAB8 PO; +LEXA1TAB2 PO; +MAGN400T2 PO; +SEMA1PEN2 SC
== END ==
LOC: M SFHCWAGY 18:08
PROVIDERS: ATTEND Specialist
DX: N92.6 Irregular menstruation, unspecified (principal); N85.02 Endometrial intraepithelial neoplasia [EIN]

== ENCOUNTER 2023-01-16 11:17 | Day surgery (SDC) | payer OTHER ==
[~2023-01-16] VITALS: Ht 167.6 cm; Wt 141.5 kg
[2023-01-16] MEDS ORDERED: LIDOCAINE 2% 100MG/5ML SDV (FOR ANES.) As Ordered ONE (11:41)
[2023-01-16] MEDS ORDERED: propofoL 200 MG/20 ML VIAL As Ordered ONE ×3 (11:41→13:09)
[2023-01-16] MEDS ORDERED: KETOROLAC 60MG 2ML VIAL As Ordered ONE (11:41)
[2023-01-16] MEDS ORDERED: ONDANSETRON 4MG 2ML VIAL As Ordered ONE (11:44)
[2023-01-16] MEDS ORDERED: MIDAZOLAM INJ 2MG/2ML VIAL As Ordered ONE (11:46)
[2023-01-16] MEDS ORDERED: fentaNYL 100 MCG/2 ML INJECTION As Ordered ONE (11:46)
[2023-01-16 12:11] LABS: HEMATOCRIT 34.1 % (36.0-47.0); HEMOGLOBIN 10.9 g/dl (12.0-15.5); MEAN CORPUSCULAR HEMOGLOBIN 29.2 pg (27.0-33.0); MEAN CORPUSCULAR VOLUME 91.4 fl (80.0-96.0); PLATELET COUNT, AUTOMATED 358 10^3/uL (150-450); RED BLOOD COUNT 3.73 10^6/uL (4.00-5.40); WHITE BLOOD COUNT 6.7 10^3/uL (4.0-10.0)
[2023-01-16] MEDS ORDERED: ROCURONIUM BROMIDE 50MG/5ML VIAL As Ordered ONE (13:09)
[2023-01-16] MEDS ORDERED: ACETAMINOPHEN 1000MG 100ML IV BAG As Ordered ONE (13:14)
[2023-01-16] MEDS ORDERED: SUGAMMADEX SODIUM 500 MG/5 ML VIAL (BRIDION) As Ordered ONE (13:15)
[2023-01-16] MEDS ORDERED: ONDANSETRON 4MG 2ML VIAL IV PRN (14:00)
[2023-01-16] MEDS ORDERED: METOCLOPRAMIDE INJ 10MG/2ML VIAL IV PRN (14:00)
[2023-01-16] MEDS ORDERED: LR 1,000 ML IV SCH (14:00)
[2023-01-16] MEDS ORDERED: oxyCODONE 5MG TAB PO PRN (14:00)
[2023-01-16] MEDS ORDERED: fentaNYL 100 MCG/2 ML INJECTION IV PRN (14:00)
[2023-01-16] MEDS ORDERED: INSULIN LISPRO (NovoLOG) PER UNIT SC PRN (14:20)
[2023-01-16 15:00] VITALS: BP 137/77; TEMP 96.8; O2SAT 97
== END 2023-01-16 15:50 | disposition home or self-care (01) ==
LOC: M SDC 11:17
PROVIDERS: ATTEND Specialist
DX: N85.01 Benign endometrial hyperplasia (principal); I10 Essential (primary) hypertension; E11.9 Type 2 diabetes mellitus without complications; Z79.84 Long term (current) use of oral hypoglycemic drugs; Z79.899 Other long term (current) drug therapy; K21.9 Gastro-esophageal reflux disease without esophagitis; D64.9 Anemia, unspecified; F41.9 Anxiety disorder, unspecified; F32.A Depression, unspecified; Z88.0 Allergy status to penicillin; Z88.1 Allergy status to other antibiotic agents
CPT/HCPCS: 36415; 58558; 81025; 85027; 88305; J0131; J1100; J1815; J1885; J2250; J2405; J3010

== ENCOUNTER → 2023-04-19 | Outpatient (REF) | payer OTHER | LOC: M LAB REF 22:40 | PROVIDERS: ATTEND Student in an Organized Health Care Education/Training Program | DX: R30.0 Dysuria (principal) ==

== ENCOUNTER 2023-05-29 13:07 | Emergency (ER) | payer OTHER ==
[~2023-05-29] VITALS: Ht 172.7 cm; Wt 146.5 kg
[2023-05-29 14:30] LABS: BASO # 0.1 10^3/uL (0.0-0.2); BASO % 0.5 % (0.0-1.0); EOS # 0.2 10^3/uL (0.0-0.5); EOS % 1.5 % (0.0-3.0); HEMATOCRIT 32.9 % (36.0-47.0); LYMPH # 1.8 10^3/uL (1.5-5.0); MEAN CORPUSCULAR HEMOGLOBIN 25.1 pg (27.0-33.0); MEAN CORPUSCULAR HGB CONC 30.4 g/dl (32.0-36.5); MEAN CORPUSCULAR VOLUME 82.7 fl (80.0-96.0); MONO # 0.6 10^3/uL (0.0-0.8); MONO % 5.9 % (2.0-8.0); NEUTROPHILS # 7.9 10^3/uL (1.5-8.5); NEUTROPHILS % 74.6 % (36.0-66.0); PLATELET COUNT, AUTOMATED 342 10^3/uL (150-450); RED BLOOD COUNT 3.98 10^6/uL (4.00-5.40); WHITE BLOOD COUNT 10.6 10^3/uL (4.0-10.0)
[2023-05-29 14:41] LABS: BLOOD UREA NITROGEN 13 MG/DL (9-23); CALCIUM LEVEL 8.8 MG/DL (8.5-10.1); CARBON DIOXIDE LEVEL 24 MMOL/L (20-31); CHLORIDE LEVEL 100 MMOL/L (98-107); GLOMERULAR FILTRATION RATE > 60.0 (>58); GLUCOSE, FASTING 252 MG/DL (60-100); POTASSIUM SERUM 3.9 MMOL/L (3.5-5.1); SODIUM LEVEL 132 MMOL/L (136-145)
[2023-05-29 14:46] LABS: HCG, SERUM QUALITATIVE NEGATIVE (NEGATIVE)
[2023-05-29 15:47] LABS: Trichomonas vaginalis (AMP) NOT DETECTED (NEGATIVE)
[2023-05-29 16:11] LABS: GC DNA AMPLIFICATION NEGATIVE (NEGATIVE)
[2023-05-29] MEDS ORDERED: BISA10SU27 PR (18:41)
[2023-05-29] MEDS ORDERED: MIRA3350 PO (18:41)
[2023-05-29] MEDS ORDERED: PROV10TA PO (18:41)
[2023-05-29] MEDS ORDERED: FLUC10TA PO (18:41)
[2023-05-29] MEDS ORDERED: NITR1CAP11 PO (18:41)
[2023-05-29 18:42] VITALS: BP 128/76; TEMP 97; O2SAT 98
[2023-05-29] MEDS ORDERED: PHEN-501 PO (18:56)
== END 2023-05-29 18:56 | disposition home or self-care (01) ==
LOC: M ED 13:07
DX: N30.01 Acute cystitis with hematuria (principal); K59.00 Constipation, unspecified; N92.0 Excessive and frequent menstruation with regular cycle; E11.9 Type 2 diabetes mellitus without complications; Z88.0 Allergy status to penicillin; Z88.1 Allergy status to other antibiotic agents; Z79.891 Long term (current) use of opiate analgesic; Z79.83 Long term (current) use of bisphosphonates; Z79.4 Long term (current) use of insulin; Z79.899 Other long term (current) drug therapy

== ENCOUNTER → 2023-06-13 | Outpatient (REF) | payer OTHER ==
[~2023-06-13] MED LIST changes: +BISA10SU27 PR; +FLUC10TA PO; +MIRA3350 PO; +NITR1CAP11 PO; +PHEN-501 PO; +PROV10TA PO
== END ==
LOC: M LAB REF 18:43
PROVIDERS: ATTEND Physician Assistant
DX: R30.0 Dysuria (principal)

== ENCOUNTER 2023-06-24 22:29 | Emergency (ER) | payer OTHER ==
[~2023-06-24] VITALS: Ht 170.2 cm; Wt 145.0 kg
[2023-06-24 22:31] VITALS: BP 160/77; TEMP 98.2; O2SAT 97
[2023-06-24 23:24] LABS: BASO # 0.1 10^3/uL (0.0-0.2); BASO % 0.5 % (0.0-1.0); EOS # 0.2 10^3/uL (0.0-0.5); EOS % 1.8 % (0.0-3.0); HEMATOCRIT 34.4 % (36.0-47.0); HEMOGLOBIN 10.5 g/dl (12.0-15.5); LYMPH # 1.9 10^3/uL (1.5-5.0); LYMPH % 18.5 % (24.0-44.0); MEAN CORPUSCULAR HEMOGLOBIN 24.8 pg (27.0-33.0); MEAN CORPUSCULAR HGB CONC 30.5 g/dl (32.0-36.5); MEAN CORPUSCULAR VOLUME 81.3 fl (80.0-96.0); MONO # 0.8 10^3/uL (0.0-0.8); MONO % 7.3 % (2.0-8.0); NEUTROPHILS # 7.4 10^3/uL (1.5-8.5); NEUTROPHILS % 71.4 % (36.0-66.0); PLATELET COUNT, AUTOMATED 369 10^3/uL (150-450); RED BLOOD COUNT 4.23 10^6/uL (4.00-5.40); WHITE BLOOD COUNT 10.3 10^3/uL (4.0-10.0)
[2023-06-24 23:39] LABS: HCG, SERUM QUALITATIVE NEGATIVE (NEGATIVE)
[2023-06-24 23:56] LABS: BLOOD UREA NITROGEN 18 MG/DL (9-23); CALCIUM LEVEL 8.6 MG/DL (8.5-10.1); CARBON DIOXIDE LEVEL 24 MMOL/L (20-31); CHLORIDE LEVEL 100 MMOL/L (98-107); CREATININE FOR GFR 0.53 MG/DL (0.55-1.30); GLOMERULAR FILTRATION RATE > 60.0 (>58); GLUCOSE, FASTING 470 MG/DL (60-100); POTASSIUM SERUM 3.9 MMOL/L (3.5-5.1); SODIUM LEVEL 132 MMOL/L (136-145)
[2023-06-25] MEDS ORDERED: PYRI1TAB5 PO (06:27)
[2023-06-25] MEDS ORDERED: CEPH500C PO (06:27)
[2023-06-25] MEDS ORDERED: PERC5TAB12 PO (06:27)
[2023-06-25] MEDS: PHENAZOPYRIDINE 100 MG TAB PO ONE (07:20)
[2023-06-25] MEDS: PERCOCET 5MG/325MG TAB PO ONE (07:20)
[2023-06-25] MEDS: CEPHALEXIN 500 MG CAP PO ONE (07:21)
== END 2023-06-25 07:30 | disposition home or self-care (01) ==
LOC: M ED 22:29
DX: N39.0 Urinary tract infection, site not specified (principal); N93.9 Abnormal uterine and vaginal bleeding, unspecified; F12.10 Cannabis abuse, uncomplicated; Z88.0 Allergy status to penicillin; Z88.1 Allergy status to other antibiotic agents; Z79.2 Long term (current) use of antibiotics; Z79.810 Long term (current) use of selective estrogen receptor modulators (SERMs); Z79.891 Long term (current) use of opiate analgesic; Z79.899 Other long term (current) drug therapy

== ENCOUNTER → 2023-09-03 | Outpatient (REF) | payer OTHER ==
[~2023-09-03] MED LIST changes: +CEPH500C PO; +FLUO-290 PO; -FLUO10CA18 PO; +NITR100C3 PO; -NITR1CAP11 PO; +ONDA-282 PO; -ONDA4TAB6 PO; +PERC5TAB12 PO; +TIRZ7.5P SQ
[2023-09-03 18:09] LABS: Trichomonas vaginalis (AMP) NOT DETECTED (NEGATIVE)
[2023-09-03 18:33] LABS: GC DNA AMPLIFICATION NEGATIVE (NEGATIVE)
== END ==
LOC: M LAB REF 16:41
PROVIDERS: ATTEND Nurse Practitioner Family
DX: R30.0 Dysuria (principal); Z11.3 Encounter for screening for infections with a predominantly sexual mode of transmission

== ENCOUNTER 2023-09-10 07:02 | Observation (INO) | payer OTHER ==
[2023-09-10] VITALS (7 sets, daily range): BP systolic 106–135; BP diastolic 52–87; TEMP 97.1–97.8; O2SAT 95–97
[~2023-09-10] VITALS: Ht 170.2 cm; Wt 137.2 kg
[~2023-09-10 07:02] MED LIST changes: +LR 1,000 ML IV SCH; +UNRESOLVED CLARIFICATION ENTRY XX SCH
[2023-09-10] MEDS ORDERED: LR 1,000 ML IV SCH (07:10)
[2023-09-10 08:26] LABS: HEMATOCRIT 40.1 % (36.0-47.0); HEMOGLOBIN 12.3 g/dl (12.0-15.5); MEAN CORPUSCULAR HEMOGLOBIN 24.3 pg (27.0-33.0); MEAN CORPUSCULAR HGB CONC 30.7 g/dl (32.0-36.5); MEAN CORPUSCULAR VOLUME 79.2 fl (80.0-96.0); PLATELET COUNT, AUTOMATED 362 10^3/uL (150-450); RED BLOOD COUNT 5.06 10^6/uL (4.00-5.40)
[2023-09-10] MEDS: INSULIN LISPRO (NovoLOG) PER UNIT SC PRN ×4 (08:40→15:00)
[2023-09-10] MEDS ORDERED: ROCURONIUM BROMIDE 50MG/5ML VIAL As Ordered ONE (08:48)
[2023-09-10] MEDS ORDERED: LIDOCAINE 2% 100MG/5ML SDV (FOR ANES.) As Ordered ONE (08:48)
[2023-09-10] MEDS ORDERED: SUGAMMADEX SODIUM 500 MG/5 ML VIAL (BRIDION) As Ordered ONE (08:48)
[2023-09-10] MEDS ORDERED: fentaNYL 250 MCG/5 ML INJECTION As Ordered ONE (08:48)
[2023-09-10] MEDS ORDERED: propofoL 200 MG/20 ML VIAL As Ordered ONE (08:48)
[2023-09-10] MEDS ORDERED: ONDANSETRON 4MG 2ML VIAL As Ordered ONE (08:48)
[2023-09-10] MEDS ORDERED: KETOROLAC 60MG 2ML VIAL As Ordered ONE (08:48)
[2023-09-10] MEDS ORDERED: MIDAZOLAM INJ 2MG/2ML VIAL As Ordered ONE (08:49)
[2023-09-10] MEDS ORDERED: dexmedeTOMIDine (4MCG/ML)200MCG/50ML BTL (PRECEDEX) As Ordered ONE (08:58)
[2023-09-10] MEDS: DOCUSATE SODIUM 100MG CAPSULE PO SCH (09:00)
[2023-09-10] MEDS ORDERED: LABETALOL 100MG/20ML VIAL As Ordered ONE (10:15)
[2023-09-10] MEDS ORDERED: ALBUTEROL 6.7GM INHALER **FOR ANES. CART/OMNICELL ONLY As Ordered ONE (10:15)
[2023-09-10] MEDS: ceFAZolin SOD 2 GM in IV 1 EA IV ONE (10:41)
[2023-09-10] MEDS: ceFAZolin SOD 1 GM in D5W MINI-BAG PLUS 50 ML IV ONE (10:41)
[2023-09-10] MEDS ORDERED: ACETAMINOPHEN 1000MG 100ML IV BAG As Ordered ONE (10:59)
[2023-09-10] MEDS ORDERED: HYDROmorphone HCL 2MG/ML 1ML VIAL As Ordered ONE (11:06)
[2023-09-10] MEDS ORDERED: ONDANSETRON 4MG 2ML VIAL IV PRN ×2 (12:40→13:00)
[2023-09-10] MEDS ORDERED: fentaNYL 100 MCG/2 ML INJECTION IV PRN (12:40)
[2023-09-10] MEDS ORDERED: oxyCODONE 5MG TAB PO PRN (12:40)
[2023-09-10] MEDS: LR 1,000 ML IV SCH ×2 (12:40→13:00)
[2023-09-10] MEDS: HYDROMORPHONE HCL 0.5 MG/ 0.5 ML SYRINGE IV PRN (13:22)
[2023-09-10] MEDS ORDERED: GLUCOSE 4 GM CHEW PO PRN (16:10)
[2023-09-10] MEDS ORDERED: DEXTROSE 50% 50ML SYRINGE IV PRN (16:10)
[2023-09-10] MEDS ORDERED: GLUCAGON INJ 1MG VIAL SC PRN (16:10)
[2023-09-10] MEDS: KETOROLAC 30 MG/ML 1ML VIAL IV PRN (18:23)
[2023-09-10] MEDS: INSULIN LISPRO (NovoLOG) PER UNIT SC SCH (18:43)
[2023-09-10] MEDS: PERCOCET 5MG/325MG TAB PO PRN (20:55)
[2023-09-10] MEDS: GABAPENTIN 300 MG CAP PO SCH (20:55)
[2023-09-11] VITALS: BP 119/60; TEMP 97.6; O2SAT 96
[2023-09-11] MEDS: INSULIN LISPRO (NovoLOG) PER UNIT SC SCH (00:08)
[2023-09-11 04:00] VITALS: BP 116/56; TEMP 97.6; O2SAT 95
[2023-09-11] MEDS ORDERED: IBUP-1022 PO (07:31)
[2023-09-11] MEDS ORDERED: OXYC1TAB23 PO (07:31)
[2023-09-11 08:00] VITALS: BP 110/56; TEMP 97.5; O2SAT 96
[2023-09-11 08:09] LABS: HEMATOCRIT 33.5 % (36.0-47.0); HEMOGLOBIN 10.4 g/dl (12.0-15.5); MEAN CORPUSCULAR HEMOGLOBIN 24.9 pg (27.0-33.0); MEAN CORPUSCULAR VOLUME 80.3 fl (80.0-96.0); PLATELET COUNT, AUTOMATED 317 10^3/uL (150-450); RED BLOOD COUNT 4.17 10^6/uL (4.00-5.40); WHITE BLOOD COUNT 8.2 10^3/uL (4.0-10.0)
[2023-09-11 08:32] LABS: ALBUMIN 3.1 G/DL (3.2-5.2); ALKALINE PHOSPHATASE 113 U/L (46-116); ALT/SGPT 10 U/L (7.0-40); AST/SGOT < 8 U/L (<34); BILIRUBIN,TOTAL 0.3 MG/DL (0.3-1.2); BLOOD UREA NITROGEN 16 MG/DL (9-23); CALCIUM LEVEL 8.6 MG/DL (8.5-10.1); CARBON DIOXIDE LEVEL 24 MMOL/L (20-31); CHLORIDE LEVEL 102 MMOL/L (98-107); CREATININE FOR GFR 0.37 MG/DL (0.55-1.30); GLOMERULAR FILTRATION RATE > 60.0 (>58); GLUCOSE, FASTING 398 MG/DL (60-100); POTASSIUM SERUM 3.5 MMOL/L (3.5-5.1); SODIUM LEVEL 135 MMOL/L (136-145); TOTAL PROTEIN 5.9 G/DL (5.7-8.2)
[2023-09-11] MEDS: hydroCHLOROthiazide 12.5 MG CAPSULE PO SCH (08:37)
== END 2023-09-11 11:45 | disposition home or self-care (01) ==
LOC: M SDC 07:02 → M RR INP 07:03 → M PED 15:45
PROVIDERS: ADMIT Specialist; ATTEND Specialist
DX: C54.1 Malignant neoplasm of endometrium (principal); N80.03 Adenomyosis of the uterus; F43.10 Post-traumatic stress disorder, unspecified; E11.9 Type 2 diabetes mellitus without complications; Z79.84 Long term (current) use of oral hypoglycemic drugs; K21.9 Gastro-esophageal reflux disease without esophagitis; D64.9 Anemia, unspecified; E66.9 Obesity, unspecified; F41.9 Anxiety disorder, unspecified; F32.A Depression, unspecified; Z79.899 Other long term (current) drug therapy
CPT/HCPCS: 36415; 58573; 80053; 81025; 85027; 86850; 86900; 86901; 88307; 96374; 96376; J0131; J0665; J0690; J1100; J1170; J1815; J1885; J1920; J2250; J2405; J3010; S2900

== ENCOUNTER → 2023-09-27 | Outpatient (REF) | payer OTHER ==
[~2023-09-27] MED LIST changes: +IBUP-1022 PO; -LR 1,000 ML IV SCH; +OXYC1TAB23 PO; -UNRESOLVED CLARIFICATION ENTRY XX SCH
== END ==
LOC: M LAB REF 16:12
PROVIDERS: ATTEND Nurse Practitioner Family
DX: R30.0 Dysuria (principal)

== ENCOUNTER → 2023-11-07 | Outpatient (REF) | payer OTHER ==
[~2023-11-07] MED LIST changes: +CEPH500T PO; +GABA-1490 PO; +GABA-1635 PO; -GABA600T4 PO; -GABA800T4 PO
== END ==
LOC: M LAB REF 16:27
PROVIDERS: ATTEND Family Medicine Addiction Medicine
DX: R31.9 Hematuria, unspecified (principal); R30.0 Dysuria

== ENCOUNTER 2023-11-21 06:16 | Emergency (ER) | payer OTHER ==
[~2023-11-21] VITALS: Ht 172.7 cm; Wt 142.7 kg
[~2023-11-21 06:16] MED LIST changes: -CEPH500T PO
[2023-11-21] MEDS: PHENAZOPYRIDINE 100 MG TAB PO ONE (07:33)
[2023-11-21 08:35] LABS: BASO % 0.2 % (0.0-1.0); EOS # 0.2 10^3/uL (0.0-0.5); EOS % 1.9 % (0.0-3.0); HEMATOCRIT 39.1 % (36.0-47.0); HEMOGLOBIN 12.8 g/dl (12.0-15.5); LYMPH # 1.2 10^3/uL (1.5-5.0); LYMPH % 14.2 % (24.0-44.0); MEAN CORPUSCULAR HEMOGLOBIN 27.3 pg (27.0-33.0); MEAN CORPUSCULAR HGB CONC 32.7 g/dl (32.0-36.5); MEAN CORPUSCULAR VOLUME 83.4 fl (80.0-96.0); MONO # 0.4 10^3/uL (0.0-0.8); MONO % 4.8 % (2.0-8.0); NEUTROPHILS # 6.7 10^3/uL (1.5-8.5); NEUTROPHILS % 78.7 % (36.0-66.0); PLATELET COUNT, AUTOMATED 278 10^3/uL (150-450); RED BLOOD COUNT 4.69 10^6/uL (4.00-5.40); WHITE BLOOD COUNT 8.5 10^3/uL (4.0-10.0)
[2023-11-21 09:05] LABS: BLOOD UREA NITROGEN 18 MG/DL (9-23); CALCIUM LEVEL 8.8 MG/DL (8.5-10.1); CARBON DIOXIDE LEVEL 27 MMOL/L (20-31); CHLORIDE LEVEL 101 MMOL/L (98-107); CREATININE FOR GFR 0.43 MG/DL (0.55-1.30); GLOMERULAR FILTRATION RATE > 60.0 (>58); GLUCOSE, FASTING 211 MG/DL (60-100); POTASSIUM SERUM 4.1 MMOL/L (3.5-5.1); SODIUM LEVEL 135 MMOL/L (136-145)
[2023-11-21] MEDS ORDERED: ISOVUE-370 76% 100ML VIAL As Ordered ONE (09:12)
[2023-11-21] MEDS: cefTRIAXone SOD 1 GM in D5W MINI-BAG PLUS 50 ML IV ONE (09:51)
[2023-11-21] MEDS ORDERED: PYRI1TAB5 PO (10:15)
[2023-11-21] MEDS ORDERED: CEPH500T PO (10:15)
[2023-11-21 10:35] VITALS: BP 142/96; TEMP 96.9; O2SAT 95
== END 2023-11-21 10:36 | disposition home or self-care (01) ==
LOC: M ED 06:16
DX: N30.01 Acute cystitis with hematuria (principal); N20.0 Calculus of kidney; K76.0 Fatty (change of) liver, not elsewhere classified; E11.40 Type 2 diabetes mellitus with diabetic neuropathy, unspecified; E66.9 Obesity, unspecified; Z87.440 Personal history of urinary (tract) infections; D35.01 Benign neoplasm of right adrenal gland; Z79.4 Long term (current) use of insulin; Z79.899 Other long term (current) drug therapy; Z88.0 Allergy status to penicillin; Z88.1 Allergy status to other antibiotic agents
CPT/HCPCS: 74177; 80048; 81000; 81015; 85025; 87088; 87186; 96365; 99284; J0696; Q9967

== ENCOUNTER → 2024-01-31 | Outpatient (REF) | payer OTHER ==
[~2024-01-31] MED LIST changes: +CEPH500T PO; +GABA-1172 PO; -GABA-282 PO; -SIME180C25 PO; +SIME1CAP4 PO
== END ==
LOC: M LAB REF 16:18
PROVIDERS: ATTEND Physician Assistant
DX: N30.01 Acute cystitis with hematuria (principal)

== ENCOUNTER 2024-02-19 15:32 | Emergency (ER) | payer OTHER ==
[~2024-02-19] VITALS: Ht 162.6 cm; Wt 136.9 kg
[2024-02-19] MEDS ORDERED: ISOVUE-370 76% 100ML VIAL As Ordered ONE (16:25)
[2024-02-19] MEDS: MORPHINE 2 MG/ML 1ML VIAL IV ONE (16:37)
[2024-02-19 16:46] LABS: BASO % 0.5 % (0.0-1.0); EOS # 0.1 10^3/uL (0.0-0.5); EOS % 1.4 % (0.0-3.0); HEMATOCRIT 41.5 % (36.0-47.0); HEMOGLOBIN 14.4 g/dl (12.0-15.5); LYMPH # 1.7 10^3/uL (1.5-5.0); LYMPH % 27.5 % (24.0-44.0); MEAN CORPUSCULAR HEMOGLOBIN 29.9 pg (27.0-33.0); MEAN CORPUSCULAR HGB CONC 34.7 g/dl (32.0-36.5); MEAN CORPUSCULAR VOLUME 86.3 fl (80.0-96.0); MONO # 0.5 10^3/uL (0.0-0.8); NEUTROPHILS # 3.9 10^3/uL (1.5-8.5); NEUTROPHILS % 62.3 % (36.0-66.0); PLATELET COUNT, AUTOMATED 284 10^3/uL (150-450); RED BLOOD COUNT 4.81 10^6/uL (4.00-5.40); WHITE BLOOD COUNT 6.3 10^3/uL (4.0-10.0)
[2024-02-19 17:12] LABS: BLOOD UREA NITROGEN 14 MG/DL (9-23); CARBON DIOXIDE LEVEL 28 MMOL/L (20-31); CHLORIDE LEVEL 100 MMOL/L (98-107); CREATININE FOR GFR 0.35 MG/DL (0.55-1.30); GLOMERULAR FILTRATION RATE > 60.0 (>58); GLUCOSE, FASTING 218 MG/DL (60-100); POTASSIUM SERUM 3.9 MMOL/L (3.5-5.1); SODIUM LEVEL 136 MMOL/L (136-145)
[2024-02-19] MEDS ORDERED: MORPHINE 4 MG/ML 1ML VIAL As Ordered ONE (19:34)
[2024-02-19 19:42] VITALS: TEMP 97.2
[2024-02-19] MEDS: MORPHINE 4 MG/ML 1ML VIAL IV ONE (19:42)
[2024-02-19 19:55] VITALS: BP 151/74; O2SAT 94
== END 2024-02-19 20:06 | disposition short-term general hospital (02) ==
LOC: EDBD 15:32 → M ED 15:32
DX: S06.0XAA Concussion with loss of consciousness status unknown, initial encounter (principal); M54.2 Cervicalgia; R20.2 Paresthesia of skin; W01.10XA Fall on same level from slipping, tripping and stumbling with subsequent striking against unspecified object, initial encounter; Y92.9 Unspecified place or not applicable; Y93.9 Activity, unspecified; Y99.9 Unspecified external cause status; M51.26 Other intervertebral disc displacement, lumbar region; E11.40 Type 2 diabetes mellitus with diabetic neuropathy, unspecified; E66.9 Obesity, unspecified; Z79.4 Long term (current) use of insulin; Z79.899 Other long term (current) drug therapy; Z88.0 Allergy status to penicillin
CPT/HCPCS: 70450; 71260; 72125; 72128; 72131; 73030; 73060; 73590; 73610; 74177; 80047; 80048; 85025; 93041; 94760; 96374; 96376; 99285; Q9967

== ENCOUNTER → 2024-04-17 | Outpatient (REF) | payer OTHER | LOC: M LAB REF 09:35 | PROVIDERS: ATTEND Student in an Organized Health Care Education/Training Program | DX: R30.0 Dysuria (principal) ==

== ENCOUNTER 2024-05-11 14:42 | Observation (INO) | payer OTHER, SELFPAY ==
[~2024-05-11] VITALS: Ht 172.7 cm; Wt 131.5 kg
[2024-05-11] MEDS: NS (Normal Saline) 0.9% 1,000 ML IV ONE ×3 (15:23→17:50)
[2024-05-11 15:34] LABS: VENOUS HCO3 25.5 MMOL/L (23.0-27.0); VENOUS O2 SATURATION 55.6 % (60.0-80.0); VENOUS PARTIAL PRESSURE CO2 48.6 mmHg (38.0-50.0); VENOUS PARTIAL PRESSURE O2 27.9 mmHg (30.0-50.0); VENOUS PH 7.338 UNITS (7.330-7.430); VENOUS STANDARD HCO3 22.4 MMOL/L
[2024-05-11 15:39] LABS: BASO % 0.3 % (0.0-1.0); EOS % 0.1 % (0.0-3.0); HEMATOCRIT 49.5 % (36.0-47.0); LYMPH # 0.3 10^3/uL (1.5-5.0); MEAN CORPUSCULAR HEMOGLOBIN 29.9 pg (27.0-33.0); MEAN CORPUSCULAR HGB CONC 34.3 g/dl (32.0-36.5); MEAN CORPUSCULAR VOLUME 87.1 fl (80.0-96.0); MONO # 0.2 10^3/uL (0.0-0.8); NEUTROPHILS # 6.9 10^3/uL (1.5-8.5); NEUTROPHILS % 92.3 % (36.0-66.0); PLATELET COUNT, AUTOMATED 284 10^3/uL (150-450); RED BLOOD COUNT 5.68 10^6/uL (4.00-5.40); WHITE BLOOD COUNT 7.5 10^3/uL (4.0-10.0)
[2024-05-11] MEDS: ACETAMINOPHEN *IV* 1,000 MG in IV 1 EA IV ONE (15:54)
[2024-05-11 16:05] LABS: ACETONE/KETONE 1.54 MMOL/L (0.02-0.27)
[2024-05-11 16:08] LABS: ALBUMIN 3.7 G/DL (3.2-5.2); ALKALINE PHOSPHATASE 120 U/L (35-104); ALT/SGPT 31 U/L (7.0-40); AST/SGOT 16 U/L (<34); BILIRUBIN,DIRECT 0.2 MG/DL (<0.4); BILIRUBIN,TOTAL 0.7 MG/DL (0.3-1.2); BLOOD UREA NITROGEN 19 MG/DL (9-23); CARBON DIOXIDE LEVEL 27 MMOL/L (20-31); CHLORIDE LEVEL 97 MMOL/L (98-107); CREATININE FOR GFR 0.47 MG/DL (0.55-1.30); GLOMERULAR FILTRATION RATE > 60.0 (>58); GLUCOSE, FASTING 409 MG/DL (60-100); SODIUM LEVEL 136 MMOL/L (136-145); TOTAL PROTEIN 7.3 G/DL (5.7-8.2)
[2024-05-11] MEDS: HumuLIN R (REGULAR) INSULIN (NovoLIN R) **100U/ML** PER UNIT IV ONE (16:22)
[2024-05-11] MEDS: ONDANSETRON 4MG 2ML VIAL IV ONE (17:40)
[2024-05-11] MEDS ORDERED: MAALOX 30 ML SUSP *UDC PO PRN (18:05)
[2024-05-11] MEDS ORDERED: MOM 30ML SUSPENSION UDC PO PRN (18:05)
[2024-05-11] MEDS ORDERED: ONDANSETRON 4MG 2ML VIAL IV PRN (18:10)
[2024-05-11] MEDS ORDERED: NS (Normal Saline) 0.9% 1,000 ML IV ONE (18:10)
[2024-05-11] MEDS ORDERED: GLUCAGON INJ 1MG VIAL SC PRN (18:15)
[2024-05-11] MEDS ORDERED: GLUCOSE 4 GM CHEW PO PRN (18:15)
[2024-05-11] MEDS ORDERED: DEXTROSE 50% 50ML SYRINGE IV PRN (18:15)
[2024-05-11] MEDS: HumuLIN R (REGULAR) INSULIN (NovoLIN R) **100U/ML** PER UNIT IV STA (18:33)
[2024-05-11] MEDS: CALCIUM CARBONATE 500 MG CHEW U/D PO ONE (18:34)
[2024-05-11] MEDS ORDERED: MAGN400T2 PO (18:34)
[2024-05-11] MEDS: PANTOPRAZOLE 40MG VIAL IV SCH (18:34)
[2024-05-11] MEDS: NS (Normal Saline) 0.9% 1,000 ML IV SCH (18:34)
[2024-05-11] MEDS ORDERED: INSU100I59 PO (18:40)
[2024-05-11] MEDS ORDERED: FAMO40TA3 PO (18:40)
[2024-05-11] MEDS ORDERED: SEMA0.257 PO (18:40)
[2024-05-11] MEDS ORDERED: VENL37.598 PO (18:40)
[2024-05-11] MEDS ORDERED: HOME MED LIST COMPLETE! XX SCH (18:45)
[2024-05-11] MEDS: INSULIN LISPRO (NovoLOG) PER UNIT SC SCH ×2 (19:12→21:00)
[2024-05-11] MEDS: LanTUS (INSULIN GLARGINE INJ) 1 UNITS/0.01 ML SC SCH (21:00)
[2024-05-11] MEDS: ACETAMINOPHEN 325 MG TAB PO PRN (21:14)
[2024-05-11] MEDS: GABAPENTIN 300 MG CAP PO SCH (21:15)
[2024-05-11 21:32] LABS: BASO % 0.2 % (0.0-1.0); EOS # 0.1 10^3/uL (0.0-0.5); HEMATOCRIT 41.1 % (36.0-47.0); LYMPH # 0.7 10^3/uL (1.5-5.0); LYMPH % 13.5 % (24.0-44.0); MEAN CORPUSCULAR HEMOGLOBIN 29.5 pg (27.0-33.0); MEAN CORPUSCULAR HGB CONC 33.6 g/dl (32.0-36.5); MEAN CORPUSCULAR VOLUME 87.8 fl (80.0-96.0); MONO # 0.4 10^3/uL (0.0-0.8); MONO % 9.2 % (2.0-8.0); NEUTROPHILS # 3.6 10^3/uL (1.5-8.5); NEUTROPHILS % 75.9 % (36.0-66.0); PLATELET COUNT, AUTOMATED 236 10^3/uL (150-450); RED BLOOD COUNT 4.68 10^6/uL (4.00-5.40); WHITE BLOOD COUNT 4.8 10^3/uL (4.0-10.0)
[2024-05-11 21:37] LABS: HEMOGLOBIN 13.8 g/dl (12.0-15.5)
[2024-05-11 21:53] LABS: BLOOD UREA NITROGEN 17 MG/DL (9-23); CALCIUM LEVEL 8.1 MG/DL (8.5-10.1); CARBON DIOXIDE LEVEL 25 MMOL/L (20-31); CHLORIDE LEVEL 104 MMOL/L (98-107); CREATININE FOR GFR 0.57 MG/DL (0.55-1.30); GLOMERULAR FILTRATION RATE > 60.0 (>58); GLUCOSE, FASTING 295 MG/DL (60-100); MAGNESIUM LEVEL 1.5 MG/DL (1.8-2.4); POTASSIUM SERUM 4.4 MMOL/L (3.5-5.1); SODIUM LEVEL 139 MMOL/L (136-145)
[2024-05-11 21:55] LABS: ACETONE/KETONE 0.08 MMOL/L (0.02-0.27)
[2024-05-11] MEDS: MAGNESIUM OXIDE 400MG TAB (MAG-OX) PO ONE (22:20)
[2024-05-11] MEDS: MAG SULF 1GM/100ML (MAG RUN) 1 GM in IV 1 EA IV SCH (22:20)
[2024-05-12 05:16] VITALS: BP 109/67; TEMP 98.9
[2024-05-12 06:50] LABS: BLOOD UREA NITROGEN 13 MG/DL (9-23); CARBON DIOXIDE LEVEL 28 MMOL/L (20-31); CHLORIDE LEVEL 104 MMOL/L (98-107); CREATININE FOR GFR 0.42 MG/DL (0.55-1.30); GLOMERULAR FILTRATION RATE > 60.0 (>58); GLUCOSE, FASTING 277 MG/DL (60-100); MAGNESIUM LEVEL 1.8 MG/DL (1.8-2.4); POTASSIUM SERUM 4.1 MMOL/L (3.5-5.1); SODIUM LEVEL 138 MMOL/L (136-145)
[2024-05-12] MEDS ORDERED: ONDA-282 PO (09:50)
[2024-05-12] MEDS: HumuLIN R (REGULAR) INSULIN (NovoLIN R) **100U/ML** PER UNIT IV STA (10:07)
[2024-05-12] MEDS: ENOXAPARIN 40MG/0.4ML SYRINGE (J1650 PER 10MG) SC SCH (10:07)
[2024-05-12 10:45] VITALS: O2SAT 93
[2024-05-12 11:18] LABS: HEMOGLOBIN A1c 10.6 % (4.0-6.0)
== END 2024-05-12 15:04 | disposition home or self-care (01) ==
LOC: M ED 14:42 → EDBD 14:42 → M ED INP 14:43
PROVIDERS: ADMIT Student in an Organized Health Care Education/Training Program; ATTEND Student in an Organized Health Care Education/Training Program
DX: A08.11 Acute gastroenteropathy due to Norwalk agent (principal); E11.40 Type 2 diabetes mellitus with diabetic neuropathy, unspecified; E11.65 Type 2 diabetes mellitus with hyperglycemia; F41.9 Anxiety disorder, unspecified; F32.A Depression, unspecified; K21.9 Gastro-esophageal reflux disease without esophagitis; Z79.84 Long term (current) use of oral hypoglycemic drugs; Z79.4 Long term (current) use of insulin; Z79.899 Other long term (current) drug therapy
CPT/HCPCS: 36415; 71045; 80048; 80076; 82010; 82803; 83036; 83605; 83735; 85025; 87040; 87486; 87507; 87581; 87633; 87798; 93005; 93041; 94760; 96361; 96372; 96374; 96375; 96376; 99285; J0131; J1650; J1815; J2405; J2470; J3475

== ENCOUNTER → 2024-06-09 | Outpatient (REF) | payer OTHER ==
[~2024-06-09] MED LIST changes: +FAMO40TA3 PO; +INSU100I59 PO; +SEMA0.257 PO; +VENL37.598 PO
== END ==
LOC: M LAB REF 17:06
PROVIDERS: ATTEND Physician Assistant
DX: R10.30 Lower abdominal pain, unspecified (principal)

== ENCOUNTER 2024-06-23 03:13 | Emergency (ER) | payer OTHER ==
[~2024-06-23] VITALS: Ht 170.2 cm; Wt 135.4 kg
[2024-06-23] MEDS: KETOROLAC 60MG 2ML VIAL IM ONE (06:50)
[2024-06-23] MEDS: diazePAM 10 MG TAB PO ONE (06:50)
[2024-06-23] MEDS: LIDOCAINE 5% (LIDODERM) PATCH TD ONE (06:51)
[2024-06-23 07:03] LABS: KETONE, URINE AUTO RFX NEGATIVE (NEGATIVE); MUCUS, URINE RFX SMALL (NEGATIVE); NITRITE, URINE AUTO RFX NEGATIVE (NEGATIVE); RBC, URINE AUTO RFX 2 /HPF (0-3); SQUAM EPITHELIAL CELL UR AURFX 3 /HPF (0-6)
[2024-06-23 07:05] LABS: LEUKOCYTE ESTERASE UR AUTO RFX 1+ (NEGATIVE); WBC, URINE AUTO RFX 15 /HPF (0-3)
[2024-06-23 07:45] VITALS: BP 150/86; TEMP 96.4; O2SAT 92
[2024-06-23] MEDS ORDERED: METH-1165 PO (07:48)
[2024-06-23] MEDS ORDERED: ASPE4PAD TOP (07:48)
== END 2024-06-23 08:07 | disposition home or self-care (01) ==
LOC: M ED 03:13
DX: M54.16 Radiculopathy, lumbar region (principal); K21.9 Gastro-esophageal reflux disease without esophagitis; G62.9 Polyneuropathy, unspecified; Z79.4 Long term (current) use of insulin; Z79.899 Other long term (current) drug therapy; Z88.0 Allergy status to penicillin; Z88.1 Allergy status to other antibiotic agents
CPT/HCPCS: 72110; 81001; 87086; 96372; 99284; J1885

== ENCOUNTER → 2024-09-10 | Outpatient (REF) | payer OTHER ==
[~2024-09-10] MED LIST changes: +ASPE4PAD TOP; +LISI10TA22; +METH-1165 PO; +PHEN-372 PO; +SEMA1PEN2
[2024-09-10 18:27] LABS: APPEARANCE, URINE CLOUDY (CLEAR); BACTERIA, URINE AUTO 1+ (NEGATIVE); BILIRUBIN, URINE AUTO NEGATIVE (NEGATIVE); BLOOD, URINE BLOOD 3+ (NEGATIVE); GLUCOSE, URINE (UA) AUTO NEGATIVE (NEGATIVE); KETONE, URINE AUTO TRACE mg/dL (NEGATIVE); LEUKOCYTE ESTERASE, URINE AUTO 3+ (NEGATIVE); MUCUS, URINE SMALL (NEGATIVE); NITRITE, URINE AUTO NEGATIVE (NEGATIVE); PROTEIN, URINE AUTO 3+ mg/dL (NEGATIVE); RBC, URINE AUTO TNTC /HPF (0-3); SPECIFIC GRAVITY URINE AUTO 1.041 (1.002-1.035); SQUAMOUS EPITHELIAL CELL UR AU 10 /HPF (0-6); UROBILINOGEN, URINE AUTO 0.2 mg/dL (0.0-2.0); WBC, URINE AUTO TNTC /HPF (0-3)
== END ==
LOC: M LAB REF 17:06
PROVIDERS: ATTEND Physician Assistant
DX: N39.0 Urinary tract infection, site not specified (principal)

== ENCOUNTER → 2024-10-08 | Outpatient (REF) | payer OTHER ==
[~2024-10-08] MED LIST changes: +HYDR12.510 PO; -HYDR12CA PO
[2024-10-08 21:39] LABS: APPEARANCE, URINE CLOUDY (CLEAR); BACTERIA, URINE AUTO 3+ (NEGATIVE); BILIRUBIN, URINE AUTO NEGATIVE (NEGATIVE); BLOOD, URINE BLOOD 2+ (NEGATIVE); GLUCOSE, URINE (UA) AUTO 3+ mg/dL (NEGATIVE); KETONE, URINE AUTO TRACE mg/dL (NEGATIVE); LEUKOCYTE ESTERASE, URINE AUTO 2+ (NEGATIVE); NITRITE, URINE AUTO NEGATIVE (NEGATIVE); PROTEIN, URINE AUTO 2+ mg/dL (NEGATIVE); RBC, URINE AUTO 29 /HPF (0-3); SPECIFIC GRAVITY URINE AUTO 1.032 (1.002-1.035); SQUAMOUS EPITHELIAL CELL UR AU 2 /HPF (0-6); UROBILINOGEN, URINE AUTO 0.2 mg/dL (0.0-2.0); WBC, URINE AUTO TNTC /HPF (0-3)
== END ==
LOC: M LAB REF 21:14
PROVIDERS: ATTEND Physician Assistant
DX: N39.0 Urinary tract infection, site not specified (principal)

== ENCOUNTER → 2024-10-27 | Outpatient (REF) | payer OTHER | LOC: M LAB REF 17:13 | PROVIDERS: ATTEND Student in an Organized Health Care Education/Training Program | DX: N39.0 Urinary tract infection, site not specified (principal) ==

== ENCOUNTER 2024-11-07 15:18 | Emergency (ER) | payer OTHER ==
[~2024-11-07] VITALS: Ht 172.7 cm; Wt 147.6 kg
[~2024-11-07 15:18] MED LIST changes: -IBUP-1022 PO; +IBUP600T42 PO
[2024-11-07] MEDS: NS (Normal Saline) 0.9% 1,000 ML IV ONE (16:20)
[2024-11-07] MEDS: diphenhydrAMINE 50 MG/ML VIAL IV STA (16:44)
[2024-11-07 16:51] LABS: BASO # 0.0 10^3/uL (0.0-0.2); BASO % 0.4 % (0.0-1.0); EOS # 0.1 10^3/uL (0.0-0.5); EOS % 2.0 % (0.0-3.0); LYMPH # 1.8 10^3/uL (1.5-5.0); LYMPH % 25.3 % (24.0-44.0); MONO # 0.5 10^3/uL (0.0-0.8); MONO % 7.8 % (2.0-8.0); NEUTROPHILS # 4.4 10^3/uL (1.5-8.5); NEUTROPHILS % 64.2 % (36.0-66.0); PLATELET COUNT, AUTOMATED 296 10^3/uL (150-450)
[2024-11-07 16:54] LABS: APPEARANCE, URINE CLEAR (CLEAR); BACTERIA, URINE AUTO NEGATIVE (NEGATIVE); BILIRUBIN, URINE AUTO NEGATIVE (NEGATIVE); BLOOD, URINE BLOOD NEGATIVE (NEGATIVE); GLUCOSE, URINE (UA) AUTO 1+ mg/dL (NEGATIVE); KETONE, URINE AUTO TRACE mg/dL (NEGATIVE); LEUKOCYTE ESTERASE, URINE AUTO NEGATIVE (NEGATIVE); MUCUS, URINE SMALL (NEGATIVE); NITRITE, URINE AUTO NEGATIVE (NEGATIVE); PROTEIN, URINE AUTO 2+ mg/dL (NEGATIVE); RBC, URINE AUTO 0 /HPF (0-3); SPECIFIC GRAVITY URINE AUTO 1.025 (1.002-1.035); SQUAMOUS EPITHELIAL CELL UR AU 2 /HPF (0-6); UROBILINOGEN, URINE AUTO 0.2 mg/dL (0.0-2.0); WBC, URINE AUTO 1 /HPF (0-3)
[2024-11-07] MEDS: KETOROLAC 30 MG/ML 1 ML VIAL IV ONE (17:27)
[2024-11-07 17:34] LABS: ALT/SGPT 40 U/L (7.0-40); AST/SGOT 59 U/L (<34); CALCIUM LEVEL 9.5 MG/DL (8.5-10.1); CARBON DIOXIDE LEVEL 26 MMOL/L (20-31); CHLORIDE LEVEL 101 MMOL/L (98-107); CREATININE FOR GFR 0.47 MG/DL (0.55-1.30); GLOMERULAR FILTRATION RATE > 90.0 (>58); POTASSIUM SERUM 6.0 MMOL/L (3.5-5.1); SODIUM LEVEL 138 MMOL/L (136-145)
[2024-11-07 17:36] LABS: ESTIMATED AVERAGE GLUCOSE 252.0 MG/DL (60-110)
[2024-11-07 19:13] VITALS: BP 158/89; TEMP 98; O2SAT 93
== END 2024-11-07 19:18 | disposition home or self-care (01) ==
LOC: M ED 15:18
DX: R51.9 Headache, unspecified (principal); I10 Essential (primary) hypertension; K21.9 Gastro-esophageal reflux disease without esophagitis; F41.9 Anxiety disorder, unspecified; F32.9 Major depressive disorder, single episode, unspecified; F43.10 Post-traumatic stress disorder, unspecified; F42.9 Obsessive-compulsive disorder, unspecified; Z87.442 Personal history of urinary calculi; Z79.4 Long term (current) use of insulin; Z79.899 Other long term (current) drug therapy; Z88.0 Allergy status to penicillin
CPT/HCPCS: 70450; 72125; 80048; 80076; 81001; 83036; 84132; 85025; 96361; 96374; 96375; 99284; J1200; J1885; J2765

== ENCOUNTER → 2025-02-11 | Outpatient (CLI) | payer OTHER ==
[~2025-02-11] MED LIST changes: -BACTDSTA PO; -LISI10TA22; +SEMA2PEN; +SULF-8 PO
== END ==
LOC: M RAD 13:54
PROVIDERS: ATTEND Student in an Organized Health Care Education/Training Program
DX: E04.1 Nontoxic single thyroid nodule (principal)

== ENCOUNTER 2025-02-13 17:20 | Emergency (ER) | payer OTHER ==
[~2025-02-13] VITALS: Ht 172.7 cm; Wt 145.4 kg
[~2025-02-13 17:20] MED LIST changes: -SEMA2PEN
[2025-02-13 17:27] VITALS: BP 160/96; TEMP 97.6; O2SAT 96
[2025-02-13] MEDS ORDERED: SEMA2PEN (17:39)
[2025-02-13 18:45] LABS: KETONE, URINE AUTO RFX NEGATIVE (NEGATIVE); MUCUS, URINE RFX SMALL (NEGATIVE); NITRITE, URINE AUTO RFX NEGATIVE (NEGATIVE); RBC, URINE AUTO RFX 11 /HPF (0-3); SQUAM EPITHELIAL CELL UR AURFX 2 /HPF (0-6)
[2025-02-13 18:46] LABS: LEUKOCYTE ESTERASE UR AUTO RFX 2+ (NEGATIVE); WBC, URINE AUTO RFX 48 /HPF (0-3)
== END 2025-02-13 21:41 | disposition left against medical advice (07) ==
LOC: M ED 17:20
DX: Z53.21 Procedure and treatment not carried out due to patient leaving prior to being seen by health care provider (principal)

== ENCOUNTER 2025-02-17 17:21 | Emergency (ER) | payer OTHER ==
[~2025-02-17] VITALS: Ht 175.3 cm; Wt 149.0 kg
[~2025-02-17 17:21] MED LIST changes: +SEMA2PEN
[2025-02-17 18:08] LABS: BASO # 0.0 10^3/uL (0.0-0.2); BASO % 0.5 % (0.0-1.0); EOS # 0.2 10^3/uL (0.0-0.5); EOS % 2.9 % (0.0-3.0); LYMPH # 1.9 10^3/uL (1.5-5.0); LYMPH % 30.9 % (24.0-44.0); MONO # 0.5 10^3/uL (0.0-0.8); MONO % 8.1 % (2.0-8.0); NEUTROPHILS # 3.5 10^3/uL (1.5-8.5); NEUTROPHILS % 57.1 % (36.0-66.0); PLATELET COUNT, AUTOMATED 336 10^3/uL (150-450)
[2025-02-17 18:13] LABS: KETONE, URINE AUTO RFX TRACE mg/dL (NEGATIVE); MUCUS, URINE RFX SMALL (NEGATIVE); NITRITE, URINE AUTO RFX NEGATIVE (NEGATIVE); RBC, URINE AUTO RFX 2 /HPF (0-3); SQUAM EPITHELIAL CELL UR AURFX 1 /HPF (0-6); TRANSITIONAL EPITHELIAL AU RFX <1 /HPF
[2025-02-17 18:23] LABS: LEUKOCYTE ESTERASE UR AUTO RFX TRACE (NEGATIVE); WBC, URINE AUTO RFX 25 /HPF (0-3)
[2025-02-17 19:18] LABS: ALT/SGPT 34 U/L (7.0-40); AST/SGOT 18 U/L (<34); CALCIUM LEVEL 9.6 MG/DL (8.5-10.1); CARBON DIOXIDE LEVEL 25 MMOL/L (20-31); CHLORIDE LEVEL 98 MMOL/L (98-107); CK-MB VALUE MASS 1.4 NG/ML (<3.6); CPK CREATINE PHOSPHOKINASE 39 U/L (34-145); CREATININE FOR GFR 0.54 MG/DL (0.55-1.30); GLOMERULAR FILTRATION RATE > 90.0 (>58); MB/CK RELATIVE INDEX 3.58 (< OR =4); POTASSIUM SERUM 4.2 MMOL/L (3.5-5.1); SODIUM LEVEL 135 MMOL/L (136-145)
[2025-02-17] MEDS: NS (Normal Saline) 0.9% 1,000 ML IV ONE (19:58)
[2025-02-17] MEDS ORDERED: ISOVUE-370 76% 100 ML VIAL As Ordered ONE (19:59)
[2025-02-17 21:35] VITALS: BP 166/95; TEMP 96.5; O2SAT 99
== END 2025-02-17 21:39 | disposition home or self-care (01) ==
LOC: M ED 17:21
DX: N39.0 Urinary tract infection, site not specified (principal); E11.9 Type 2 diabetes mellitus without complications; K21.9 Gastro-esophageal reflux disease without esophagitis; F41.9 Anxiety disorder, unspecified; F32.A Depression, unspecified; R16.0 Hepatomegaly, not elsewhere classified; Z79.4 Long term (current) use of insulin; Z79.899 Other long term (current) drug therapy; Z88.0 Allergy status to penicillin
CPT/HCPCS: 71046; 71260; 80048; 80076; 81001; 82550; 82553; 84484; 85025; 87088; 87186; 87486; 87581; 87633; 87798; 93005; 96360; 96361; 99284; Q9967